=== PATIENT | male | born 1935 | race Caucasian/White ===

== ENCOUNTER → 2020-08-06 14:24 | Outpatient (BNVA) | payer MEDICARE, OTHER, SELFPAY | PROVIDERS: PCP Internal Medicine; Referring Provider Internal Medicine; Visit Provider Internal Medicine | DX: I25.10 Atherosclerotic heart disease of native coronary artery without angina pectoris (principal); R94.39 Abnormal result of other cardiovascular function study; I10 Essential (primary) hypertension; E78.5 Hyperlipidemia, unspecified | CPT/HCPCS: 99214 ==

== ENCOUNTER 2020-08-12 10:16 | Outpatient (REF) | payer MEDICARE, OTHER, SELFPAY ==
[2020-08-12 12:14] LABS: Glucose Urine UA NEG (NEG); Leukocyte Esterase Urine 3+ (NEG); Nitrite Urine POS (NEG); Specific Gravity - Urine 1.015 (1.005-1.025); Urine Blood TRACE (NEG); Urine Ketones NEG (NEG); Urine Protein NEG (NEG-TRACE)
[2020-08-12 12:17] LABS: Appearance Urine CLOUDY; Color Urine YELLOW
[2020-08-12 12:30] LABS: Bacteria Urine 4+ /LPF; RBC Urine 0-2 /HPF (0)
== END 2020-08-12 10:17 | disposition home or self-care (01) ==
LOC: HO.LAB 10:16
PROVIDERS: PCP Internal Medicine; Visit Provider Urology
DX: R30.0 Dysuria (principal)
CPT/HCPCS: 81001; 87086; 87088; 87186

== ENCOUNTER 2020-08-27 10:52 | Inpatient (IN) | payer MEDICARE, OTHER, SELFPAY ==
[2020-08-27 11:18] VITALS: BP 148/70; PULSE 73; RESP 18; TEMP 36.6; O2SAT 96; BMI 25.0
--- NOTE | 2020-08-27 11:51 | ED.MALEGU ---
HPI - Male Genitourinary General Chief complaint: Urogenital-Male Stated complaint: uti Time Seen by Provider: 08/27/20 10:56 Source: patient Mode of arrival: ambulatory Limitations: no limitations History of Present Illness HPI Narrative: Patient presents to the ED due to referral by his urologist, Dr. Tang. Patient states presently being treated for UTI and this morning he was not urinating much so he came to the ED. Patient denies any abdominal pain, nausea, vomiting, fever, chills, flank pain. Patient also states that he was informed that the urine culture shows that he is on antibiotic that does not cover the bacteria and may to be changed. Related Data Home Medications Medication Instructions Recorded Confirmed isosorbide mononitrate 30 mg 30 mg PO DAILY 08/06/20 08/06/20 tablet,extended release 24 hr lisinopril 5 mg tablet 5 mg PO DAILY 08/06/20 08/06/20 metoprolol tartrate 25 mg tablet 25 mg PO BID 08/06/20 08/06/20 tamsulosin 0.4 mg capsule 0.4 mg PO DAILY 08/06/20 08/06/20 Previous Rx's Medication Instructions Recorded aspirin 81 mg tablet,delayed 81 mg PO DAILY #90 tab 08/06/20 release rosuvastatin 10 mg tablet 10 mg PO DAILY #90 tab 08/06/20 Allergies Allergy/AdvReac Type Severity Reaction Status Date / Time diphenhydramine AdvReac Intermediate Hallucinati Verified 08/06/20 08:42 [From Tereza] ons Review of Systems Review of Systems: Yes all other systems are reviewed and are negative Eyes: Eyes: Reports as per HPI and Reports no additional eye complaints ENT: Reports system reviewed and no additional complaints, except as documented, Reports as per HPI, Reports vertigo and Reports dizziness Cardiovascular: Cardiovascular: Reports as per HPI and Reports no additional cardiovascular complaints Respiratory: Respiratory: Reports as per HPI and Reports no additional respiratory complaints Gastrointestinal: Gastrointestinal: Reports no additional gastrointestinal complaints Genitourinary: Genitourinary: Reports no additional male genitourinary complaints, Reports as per HPI, Denies oliguria, Denies genital lesions, Denies genital pain, Denies dysuria, Denies flank pain, Denies nocturia, Denies scrotal swelling, Denies testicular pain, Denies urinary hesitancy, Denies urinary incontinence and Denies urinary urgency Musculoskeletal: Musculoskeletal: Reports no additional musculoskeletal complaints, Reports as per HPI, Denies abnormal gait, Denies back pain, Denies myalgias and Denies atrophy Neurologic: Reports system reviewed and no additional complaints, except as documented, Denies abnormal gait, Reports vertigo and Reports dizziness Psychiatric: Psychiatric: Reports no additional psychiatric complaints and Reports as per HPI [facility] Past Medical History Medical History (Updated 08/27/20 @ 16:24 by CORNELIO Du) Abnormal myocardial perfusion study Atherosclerotic cardiovascular disease Essential hypertension Hyperlipidemia, unspecified Surgical History History of appendectomy History of bladder surgery (~01/04/18) History of colectomy History of prostate surgery (~2016) Family History Family History Father Pancreatic cancer Mother No problems noted. Brother Liver cancer Social History Social History Alcohol intake: never Smoking Status: Former smoker Smoked in Last 30 Days: No Use of substances other than those prescribed or required for medical reasons: No Advance Directives: No Advance Directives Information Provided: No Physical Exam Vital Signs: Vital Signs: Vital Signs Temp Pulse Resp BP Pulse Ox 08/27/20 15:41 97.6 F 71 18 140/6 H 08/27/20 14:42 98.3 F 69 16 138/89 95 08/27/20 11:18 97.8 F 73 18 148/70 H 96 Body Mass Index 25.0 Const: General: cooperative, healthy appearing, comfortable, no acute distress, well developed, alert and awake HENMT: Head: Yes normal to inspection and Yes No palpable skull fracture present Eyes: General: appearance normal, both eyes and all related structures Neck: Neck: Yes normal visual inspection, Yes full ROM, Yes no lymphadenopathy, Yes no meningeal signs, No positive Brudzinski's sign and No positive Kernig's sign Chest: Chest palpation & inspection: normal inspection of the chest, normal palpation of entire chest wall and no localized rib tenderness Resp: Effort & Inspection: normal respiratory effort, able to speak in complete sentences, normal respiratory pattern, no audible wheezes, no cough, no grunting, not labored, no nasal flaring, no paradoxical thoraco-abdom movements and no pursed lip breathing Auscultation: clear to auscultation bilaterally, no crackles, no rales, no rhonchi, no wheezes and breath sounds present Percussion: percussion normal Cardio: Jugular venous distension: no JVD Heart sounds: S1 normal heart sound present and S2 normal heart sound present GI: Inspection: Yes normal to inspection, No abdominal wall ecchymosis and No Abdominal wall edema Palpation (GI): Soft to palpation, not firm, nontender, no guarding and not rigid Percussion: Yes normal to percussion Auscultation: normal bowel sounds : General: No CVA tenderness and Yes no CVA tenderness Male General Exam: Yes normal external exam, No ecchymosis, No edema, No erythema, No hernia, No inguinal lymphadenopathy and No Genital lesions present Penis: normal penis and No Genital lesions present Scrotum: scrotum normal Testes: Testes normal and testicular lie normal Back/Spine/Pelvis: Back: no CVA tenderness, No CVA tenderness and No back tenderness Skin: General skin exam: no rashes or lesions noted Neuro: General: gait normal, no meningeal signs and CN's II-XI intact bilaterally Cranial nerves: Yes CN's II-XII intact bilaterally Extrem: General: Yes normal to inspection and Yes full ROM Course Course Course Narrative: Patient does not have any abdominal tenderness on palpation patient is comfortable patient will have basic labs and a urinalysis to make sure there is no elevated white count for worsening UTI. Bladder scan shows only 83 mL of urine and bladder. Patient is not having urinary retention Reevaluation(s) Reevaluation #1: patient admitted to the hospital to receive IV antibiotics for UTI. Although patient does not have white blood cell count, fever, chills, tachycardia patient's urine culture from the 12 of August shows Proteus which is resistant to all antibiotics and a except ertapenem Time: 16:23 MDM - Male Genitourinary MDM Narrative Medical decision making narrative: UTI. Lab Data Result diagrams: 08/27/20 11:58 08/27/20 11:59 Labs: Lab Results 08/27/20 08/27/20 08/27/20 Range/Units 11:58 11:59 14:01 WBC 8.0 (4.8-10.8) X10*3/uL RBC 4.52 L (4.60-5.80) X10*6/uL Hgb 13.5 L (14.0-18.0) g/dl Hct 40.0 L (42-52) % MCV 88.5 (80-98) fL MCH 29.9 (27.0-33.0) pg MCHC 33.8 (31.0-36.0) g/dl RDW 12.2 (11.0-16.0) % Plt Count 228 (160-400) X10*3/uL MPV 9.9 (9.4-12.4) fL Immature Gran % (Auto) 0.5 H (0.0-0.4) % Neut % (Auto) 63.8 (45-73) % Lymph % (Auto) 26.6 (20-40) % [place] % (Auto) 5.8 (2-11) % Eos % (Auto) 2.7 (0-4) % Baso % (Auto) 0.6 (0-2) % Lymph # (Auto) 2.1 (1.2-4.9) X10*3/uL [place] # (Auto) 0.5 (0.1-1.2) X10*3/uL Eos # (Auto) 0.2 (0.0-0.4) X10*3/uL Baso # (Auto) 0.1 (0.0-0.2) X10*3/uL Abs Immat Gran (auto) 0.04 H (0.00-0.03) X10*3/uL Absolute Neuts (auto) 5.1 (2.0-8.3) X10*3/uL Absolute Nucleated RBC 0.000 (0.0-0.012) X10*3/uL Nucleated RBC % (auto) 0.0 (0.0-0.2) /100WBC Sodium 140 (135-145) mmol/L Potassium 3.9 (3.3-5.1) mmol/l Chloride 107 (96-108) mmol/L Carbon Dioxide 25 (22-29) mmol/L Anion Gap 12 (12-20) BUN 14 (9-16) mg/dL Creatinine 0.88 (0.5-1.4) mg/dL Estim Creat Clear Calc 72.6 Estimated GFR > 60 Random Glucose 179 H (60-115) mg/dL Calcium 8.7 (8.4-10.2) mg/dL Total Bilirubin 0.6 (0.0-1.0) mg/dL AST 14 (5-37) U/L ALT 18 (0-40) U/L Alkaline Phosphatase 77 (39-117) U/L Total Protein 5.9 L (6.5-8.0) g/dL Albumin 3.8 (3.5-5.0) g/dL Urine Color YELLOW Urine Appearance CLOUDY Urine pH 7.0 (5.0-8.0) Ur Specific [place] 1.020 (1.005-1.025) Urine Protein TRACE (NEG-TRACE) MG/DL Urine Glucose (UA) 100 H (NEG) MG/DL Urine Ketones 5 (NEG) MG/DL Urine Blood 2+ H (NEG) Urine Nitrite POS H (NEG) Ur Leukocyte Esterase 2+ H (NEG) Urine RBC 10-14 H (0) /HPF Urine WBC TNTC H (0-4) /HPF Ur Squamous Epith Cells 1+ /LPF Calcium Oxalate Crystal TRACE /LPF Urine Bacteria 1+ /LPF Discharge Plan Discharge Clinical Impression: Urinary tract infection Patient Disposition: Admitted As Inpatient
[2020-08-27 12:07] LABS: MANUAL DIFF FLAG NO
[2020-08-27 12:10] LABS: Basophils Absolute Auto 0.1 X10*3/uL (0.0-0.2); Basophils Percent Auto 0.6 % (0-2); Eosinophils Absolute Auto 0.2 X10*3/uL (0.0-0.4); Eosinophils Percent Auto 2.7 % (0-4); Hemoglobin 13.5 g/dl (14.0-18.0); Imm Gran Abs Auto 0.04 X10*3/uL (0.00-0.03); Imm Gran Pct Auto 0.5 % (0.0-0.4); Lymphocytes Absolute Auto 2.1 X10*3/uL (1.2-4.9); Lymphocytes Percent Auto 26.6 % (20-40); Mean Corpuscular HGB Conc 33.8 g/dl (31.0-36.0); Mean Corpuscular Hemoglobin 29.9 pg (27.0-33.0); Mean Corpuscular Volume 88.5 fL (80-98); Mean Platelet Volume 9.9 fL (9.4-12.4); Monocytes Absolute Auto 0.5 X10*3/uL (0.1-1.2); Monocytes Percent Auto 5.8 % (2-11); Neutrophils Absolute Auto 5.1 X10*3/uL (2.0-8.3); Neutrophils Percent Auto 63.8 % (45-73); Platelet Count 228 X10*3/uL (160-400); Red Blood Count 4.52 X10*6/uL (4.60-5.80); Red Cell Distribution Width 12.2 % (11.0-16.0)
[2020-08-27 12:33] LABS: Alanine Aminotransferase 18 U/L (0-40); Albumin Level 3.8 g/dL (3.5-5.0); Alkaline Phosphatase 77 U/L (39-117); Anion Gap 12 (12-20); Aspartate Amino Transferase 14 U/L (5-37); Bilirubin Total 0.6 mg/dL (0.0-1.0); Blood Urea Nitrogen 14 mg/dL (9-16); Calcium 8.7 mg/dL (8.4-10.2); Carbon Dioxide 25 mmol/L (22-29); Chloride 107 mmol/L (96-108); Creatinine Clr Calc Pharmacy 72.6; Estimated Glomerular Filt Rate > 60; Glucose Random 179 mg/dL (60-115); Potassium 3.9 mmol/l (3.3-5.1); Sodium 140 mmol/L (135-145); Total Protein 5.9 g/dL (6.5-8.0)
[2020-08-27 14:21] LABS: Glucose Urine UA 100 MG/DL (NEG); Leukocyte Esterase Urine 2+ (NEG); Nitrite Urine POS (NEG); Urine Blood 2+ (NEG); Urine Ketones 5 MG/DL (NEG); Urine Protein TRACE MG/DL (NEG-TRACE)
[2020-08-27 14:23] LABS: Appearance Urine CLOUDY; Color Urine YELLOW
[2020-08-27 14:39] LABS: Bacteria Urine 1+ /LPF; Squamous Epithelial Cell Urine 1+ /LPF; WBC Urine TNTC /HPF (0-4)
[2020-08-27 14:40] LABS: Calcium Oxalate Crystals Urine TRACE /LPF
[2020-08-27 14:42] VITALS: BP 138/89; PULSE 69; RESP 16; TEMP 36.8; O2SAT 95
[2020-08-27 15:41] VITALS: BP 140/6; PULSE 71; RESP 18; TEMP 36.4
--- NOTE | 2020-08-27 15:42 | PC.NURSE ---
patient a&ox3, vss, pt watching tv awaiting urine results, will continue to monitor.
--- NOTE | 2020-08-27 17:06 | P.HPIM_ITS ---
History of Present Illness Date of Service: 08/27/20 <OCRNELIO Encinas Last Filed: 08/28/20 09:15> Chief Complaint: dysuria <CORNELIO Encinas Last Filed: 08/28/20 09:15> this is an 85-year-old male who presents to the emergency department with dysuria. His symptoms initially began on August 12. At that time he gave a urine sample but did not receive results right away therefore he went to Urgent Care and was started on a course of Bactrim. He completed 1 week of Bactrim but continued to be symptomatic. He had tried to make an appointment with his urologist. the urology office was able to look up the sensitivities from his urine culture and noted it was not sensitive to any oral antibiotics. They recommended he come to the emergency department for evaluation. Patient denies any fever, chills, nausea, vomiting. He denies any flank pain. He is able to tolerate p.o. In the emergency department he was afebrile and lab work revealed no leukocytosis. he was started on Invanz in the ED and the decision was made to admit him for further IV antibiotics. <CORNELIO Encinas - Last Filed: 08/28/20 09:15> Review of Systems Review of Systems: Yes all other systems are reviewed and are negative <CORNELIO Encinas Last Filed: 08/28/20 09:15> Constitutional: Constitutional: Denies chills and Denies fever(s) <CORNELIO Encinas Last Filed: 08/28/20 09:15> Cardiovascular: Cardiovascular: Denies chest pain <CORNELIO Encinas Last Filed: 08/28/20 09:15> Respiratory: Respiratory: Denies cough <CORNELIO Encinas Last Filed: 08/28/20 09:15> Gastrointestinal: Gastrointestinal: Denies abdominal pain <CORNELIO Encinas Last Filed: 08/28/20 09:15> Genitourinary: Genitourinary: Reports difficulty urinating and Reports dysuria <CORNELIO Encinas Last Filed: 08/28/20 09:15> [facility] Medical History: Medical History (Updated 08/27/20 @ 17:11 by CORNELIO Encinas) Abnormal myocardial perfusion study Atherosclerotic cardiovascular disease Colon cancer Essential hypertension Hyperlipidemia, unspecified Prostate cancer <CORNELIO Encinas - Last Filed: 08/28/20 09:15> Functional capacity: uses cane/walker <CORNELIO Encinas - Last Filed: 08/28/20 09:15> Family History: Family History Father Pancreatic cancer Mother No problems noted. Brother Liver cancer <CORNELIO Encinas - Last Filed: 08/28/20 09:15> Surgical History: Surgical History History of appendectomy History of bladder surgery (~01/04/18) History of colectomy History of prostate surgery (~2016) <CORNELIO Encinas - Last Filed: 08/28/20 09:15> Social History: Social History Household Members: Spouse Housing: House Do you presently have visiting nurse or other home services: No Alcohol intake: never Smoking Status: Former smoker Smoked in Last 30 Days: No Use of substances other than those prescribed or required for medical reasons: No Currently Displaying Signs/Symptoms of Drug Intoxication Withdrawal: No Have you been hit, kicked, punched, or otherwise hurt by someone within the past year? If so, by whom?: No Do you feel safe in your current relationship?: Yes Is there a partner from a previous relationship who is making you feel unsafe now?: No Are you made to feel afraid or neglected: No Advance Directives: No Advance Directives Information Provided: No Advance Directives on File: No Do you have thoughts of harming others: None Do you have a plan to hurt others: No Plan Recently lost weight without trying: No service: Yes Current occupational status: retired <CORNELIO Encinas - Last Filed: 08/28/20 09:15> Meds Allergies/Adverse reactions: Allergies Allergy/AdvReac Type Severity Reaction Status Date / Time diphenhydramine AdvReac Intermediate Hallucinati Verified 08/06/20 08:42 [[facility] ons <CORNELIO Encinas Last Filed: 08/28/20 09:15> Home medications: Home Medications Medication Instructions Recorded Confirmed Type isosorbide mononitrate 30 mg 30 mg PO DAILY 08/06/20 08/27/20 History tablet,extended release 24 hr lisinopril 5 mg tablet 5 mg PO DAILY 08/06/20 08/27/20 History metoprolol tartrate 25 mg tablet 25 mg PO BID 08/06/20 08/27/20 History tamsulosin 0.4 mg capsule 0.4 mg PO DAILY 08/06/20 08/27/20 History <CORNELIO Encinas Last Filed: 08/28/20 09:15> Physical Exam Vital Signs and Narrative: Vital Signs: Last Vital Signs Temp 97.6 F 08/27/20 15:41 Pulse 71 08/27/20 15:41 Resp 18 08/27/20 15:41 BP 140/6 H 08/27/20 15:41 Pulse Ox 95 08/27/20 14:42 Body Mass Index 25.0 <CORNELIO Encinas Last Filed: 08/28/20 09:15> Const: Nutritional Appearance: well nourished <CORNELIO Encinas Last Filed: 08/28/20 09:15> Orientation/consciousness: patient oriented x3 <CORNELIO Encinas Last Filed: 08/28/20 09:15> HENMT: Head: Yes normocephalic and Yes atraumatic <CORNELIO Encinas Last Filed: 08/28/20 09:15> Eyes: Sclerae: sclerae normal <CORNELIO Encinas Last Filed: 08/28/20 09:15> Chest: Chest palpation & inspection: normal inspection of the chest <CORNELIO Encinas Last Filed: 08/28/20 09:15> Resp: Effort & Inspection: normal respiratory effort and no respiratory distress <CORNELIO Encinas Last Filed: 08/28/20 09:15> Auscultation: clear to auscultation bilaterally <CORNELIO Encinas Last Filed: 08/28/20 09:15> Cardio: Rate: regular rate <CORNELIO Encinas Last Filed: 08/28/20 09:15> Rhythm: regular rhythm <CORNELIO Encinas Last Filed: 08/28/20 09:15> GI: Palpation (GI): Soft to palpation and nontender <CORNELIO Encinas - Last Filed: 08/28/20 09:15> Skin: General skin exam: no rashes or lesions noted <CORNELIO Encinas - Last Filed: 08/28/20 09:15> Neuro: General: patient oriented x3 <CORNELIO Encinas Last Filed: 08/28/20 09:15> Cranial nerves: Yes CN's II-XII intact bilaterally and Yes Bilaterally intact EOM present <CORNELIO Enicnas Last Filed: 08/28/20 09:15> Extrem: General: Yes normal to inspection <CORNELIO Encinas Last Filed: 08/28/20 09:15> Results Labs Labs: Laboratory Tests 08/27/20 08/27/20 08/27/20 11:58 11:59 14:01 WBC 8.0 RBC 4.52 L Hgb 13.5 L Hct 40.0 L MCV 88.5 MCH 29.9 MCHC 33.8 RDW 12.2 Plt Count 228 MPV 9.9 Immature Gran % (Auto) 0.5 H Neut % (Auto) 63.8 Lymph % (Auto) 26.6 [place] % (Auto) 5.8 Eos % (Auto) 2.7 Baso % (Auto) 0.6 Lymph # (Auto) 2.1 [place] # (Auto) 0.5 Eos # (Auto) 0.2 Baso # (Auto) 0.1 Abs Immat Gran (auto) 0.04 H Absolute Neuts (auto) 5.1 Absolute Nucleated RBC 0.000 Nucleated RBC % (auto) 0.0 Sodium 140 Potassium 3.9 Chloride 107 Carbon Dioxide 25 Anion Gap 12 BUN 14 Creatinine 0.88 Estim Creat Clear Calc 72.6 Estimated GFR > 60 Random Glucose 179 H Calcium 8.7 Total Bilirubin 0.6 AST 14 ALT 18 Alkaline Phosphatase 77 Total Protein 5.9 L Albumin 3.8 Urine Color YELLOW Urine Appearance CLOUDY Urine pH 7.0 Ur Specific [place] 1.020 Urine Protein TRACE Urine Glucose (UA) 100 H Urine Ketones 5 Urine Blood 2+ H Urine Nitrite POS H Ur Leukocyte Esterase 2+ H Urine RBC 10-14 H Urine WBC TNTC H Ur Squamous Epith Cells 1+ Calcium Oxalate Crystal TRACE Urine Bacteria 1+ <CORNELIO Encinas - Last Filed: 08/28/20 09:15> Assessment and Plan (1) Urinary tract infection: Status: Acute <CORNELIO Encinas - Last Filed: 08/28/20 09:15> this is an 85-year-old male diagnosed with UTI as outpatient with ongoing dysuria found to have multi-drug resistant UTI UTI MDR organism sensitive only to ertapenem and gentamicin no evidence of sepsis - IV ertapenem - ID consult BPH continue tamsulosin CAD stable, no chest pain - continue beta-johanna, aspirin, isosorbide, statin hypertension - continue metoprolol, lisinopril DVT prophylaxis- Lovenox code status- full code this case was discussed with Dr. Whitehead <CORNELIO Encinas - Last Filed: 08/28/20 09:15>
--- NOTE | 2020-08-27 17:54 | PC.NURSE ---
report given to med/surgical tech
[2020-08-27] MEDS: Ertapenem Sodium 1 GM in 0.9 % Sodium Chloride 50 ML IV (18:04)
--- NOTE | 2020-08-27 18:08 | PM.EVENT ---
Event Note Event Note: Patient seen examined Patient has only complaint of dysuria, is his urine culture is growing Proteus mirabilis which is sensitive only to at appointment gentamicin. This patient is seen and examined with APC. Lab imaging reviewed Physical exam: Cvs: rrr, [id number] , no murmur res: clear to auscultation ,no rhonchii or wheezing abd: no rebound or guarding ,nt, bs present. ext pulses present , no cyanosis neuro: axo3 , nonfocal. Physical exam and assessment and plan coordinated in APCs note, Agree with the plan in addition: Will start ertapenem Id evaluation.
[2020-08-27 19:25] VITALS: BP 185/87; PULSE 94; RESP 18; TEMP 36.1; O2SAT 95
[2020-08-27] MEDS: Enoxaparin Sodium 40 MG/0.4 ML SYRINGE SUBCUT (21:46)
[2020-08-27] MEDS: Flu Vacc QS2020-21(6mos up)/PF 0.5 ML SYRINGE IM (21:46)
[2020-08-27] MEDS: Metoprolol Tartrate 25 MG TABLET PO (22:04)
[2020-08-27] MEDS: 0.9 % Sodium Chloride Flush 3 ML SYRINGE IVFLUSH (22:05)
[2020-08-27 23:08] VITALS: BP 146/70; PULSE 85; RESP 18; TEMP 36.9; O2SAT 97
[2020-08-28] VITALS (9 sets, daily range): BP systolic 96–145; BP diastolic 51–73; PULSE 54–70; RESP 16–18; TEMP 36.3–36.7; O2SAT 94–98
[2020-08-28 06:17] LABS: MANUAL DIFF FLAG NO
[2020-08-28 06:37] LABS: Basophils Percent Auto 0.5 % (0-2); Eosinophils Absolute Auto 0.3 X10*3/uL (0.0-0.4); Eosinophils Percent Auto 3.8 % (0-4); Hematocrit 41.8 % (42-52); Hemoglobin 13.9 g/dl (14.0-18.0); Imm Gran Abs Auto 0.02 X10*3/uL (0.00-0.03); Imm Gran Pct Auto 0.2 % (0.0-0.4); Lymphocytes Absolute Auto 3.1 X10*3/uL (1.2-4.9); Lymphocytes Percent Auto 36.4 % (20-40); Mean Corpuscular HGB Conc 33.3 g/dl (31.0-36.0); Mean Corpuscular Hemoglobin 29.7 pg (27.0-33.0); Mean Corpuscular Volume 89.3 fL (80-98); Mean Platelet Volume 9.9 fL (9.4-12.4); Monocytes Absolute Auto 0.7 X10*3/uL (0.1-1.2); Monocytes Percent Auto 7.7 % (2-11); Neutrophils Absolute Auto 4.4 X10*3/uL (2.0-8.3); Neutrophils Percent Auto 51.4 % (45-73); Platelet Count 223 X10*3/uL (160-400); Red Blood Count 4.68 X10*6/uL (4.60-5.80); Red Cell Distribution Width 12.2 % (11.0-16.0); White Blood Count 8.5 X10*3/uL (4.8-10.8)
[2020-08-28 06:54] LABS: Anion Gap 12 (12-20); Blood Urea Nitrogen 14 mg/dL (9-16); Calcium 8.4 mg/dL (8.4-10.2); Carbon Dioxide 24 mmol/L (22-29); Chloride 108 mmol/L (96-108); Creatinine Clr Calc Pharmacy 76.1; Estimated Glomerular Filt Rate > 60; Glucose Random 95 mg/dL (60-115); Potassium 4.2 mmol/l (3.3-5.1); Sodium 140 mmol/L (135-145)
[2020-08-28] MEDS: 0.9 % Sodium Chloride Flush 3 ML SYRINGE IVFLUSH ×2 (07:45→16:00)
[2020-08-28] MEDS: lisinopriL 5 MG TABLET PO (08:46)
[2020-08-28] MEDS: Isosorbide Mononitrate 30 MG TAB.ER.24H PO (08:47)
[2020-08-28] MEDS: Metoprolol Tartrate 25 MG TABLET PO ×2 (08:48→21:09)
[2020-08-28] MEDS: Atorvastatin Calcium 40 MG TABLET PO (08:48)
[2020-08-28] MEDS: Tamsulosin HCL 0.4 MG CAPSULE PO (08:48)
[2020-08-28] MEDS: Aspirin Enteric Coated 81 MG TABLET.DR PO (08:48)
--- NOTE | 2020-08-28 11:50 | MHC.CM.PN ---
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 HE CURRENTLY ISD ON ERAPENEUM QD , PENIDNG FINAL CULTURE REPORTS AND ID PHYSICIAN CONSULT, PATIENT REPORTED THAT HE LIVES WITH HIS , ACTIVE ,INDEPENDENTI N ALL ADLS AND MOBILITY HE USES A CANE . HE CONTINEUS TO DRIVE , HE IS A AND [employer]ED IN THE [employer], HE SOMETIMES GOES TO THE [facility] [facility] FOR SERVCIES CONFIRMED PCP IS DR KARIMI, HE BELIEVES HE HAS A HEALTH CARE PROXY AT HOME FIBROUS PLASTERER[Y REQUESTED . HE HAS NO VNA /NO DME SERVICES IN THE HOME MEIARE IMM EXPLAINED AND GIVEN WITH ATTACHED NAME CARD DISCHARGE PLAN HOME NO SERVICES VS HOME WITH [facility] (INIATED REFERRAL) IF NEEDED TRANSPORTATION PATIENT [place] PCP PATIENT TO CALL FOR [facility]AGRE FOLLOW UP UROLOGICAL F/U -PATIENT TO CALL HIS UROLOGIST
--- NOTE | 2020-08-28 12:03 | MHC.CM.PN ---
NURSE BIOMED TECH AVANI)TE INIATED REFERRAL TO [facility] PER PATIENTS REQUESTS (HIS HAD THEM IN THE PAST AND THEY WERE VERY HAPPY WITH THEIR SERVICES
--- NOTE | 2020-08-28 12:24 | P.PNIM_ITS ---
Subjective Subjective Date of Service: 08/28/20 Interval History: uti Review of Systems Patient still has dysuria, denies any abdominal pain or fever chills Physical Exam Vital Signs: Vital Signs: Vital Signs Temp Pulse Resp BP Pulse Ox 08/28/20 11:55 97.8 F 55 16 101/51 L 96 08/28/20 08:48 64 145/73 H 08/28/20 08:47 64 145/73 H 08/28/20 08:46 64 145/73 H 08/28/20 08:08 97.3 F 59 18 145/73 H 96 08/28/20 03:29 97.7 F 68 16 114/68 97 08/27/20 23:08 98.5 F 85 18 146/70 H 97 08/27/20 19:25 97 F 94 18 185/87 H 95 08/27/20 15:41 97.6 F 71 18 140/6 H 08/27/20 14:42 98.3 F 69 16 138/89 95 Body Mass Index 25.0 Physical exam: Cvs: rrr, [id number] , no murmur. res: clear to auscultation ,no rhonchii or wheezing. abd: no rebound or guarding ,nt, bs present. ext: pulses present , no cyanosis . neuro: axo3 , nonfocal. Objective Data Current Medications Generic Name Dose Route Start Last Admin Trade Name Freq PRN Reason Stop Dose Admin Aspirin 81 mg 08/28/20 09:00 08/28/20 08:48 Aspirin Enteric Coated 81 Mg Tablet. PO 81 mg DAILY KRISTINE Administration Atorvastatin Calcium 40 mg 08/28/20 09:00 08/28/20 08:48 Atorvastatin Calcium 40 Mg Tablet PO 40 mg DAILY [facility] Administration Enoxaparin Sodium 40 mg 08/27/20 19:00 08/27/20 21:46 Enoxaparin Sodium 40 Mg/0.4 Ml Syringe SUBCUT 40 mg Q24H [facility] Administration Ertapenem 1 gm/ Sodium 50 mls @ 100 mls/hr 08/28/20 09:00 Chloride IV DAILY [facility] Isosorbide Mononitrate 30 mg 08/28/20 09:00 08/28/20 08:47 Isosorbide Mononitrate 30 Mg Tab.Er.24h PO 30 mg DAILY [facility] Administration Protocol Lisinopril 5 mg 08/28/20 09:00 08/28/20 08:46 Lisinopril 5 Mg Tablet PO 5 mg DAILY KRISTINE Administration Protocol Metoprolol Tartrate 25 mg 08/27/20 21:00 08/28/20 08:48 Metoprolol Tartrate 25 Mg Tablet PO 25 mg BID KRISTINE Administration Protocol Sodium Chloride 3 ml 08/28/20 00:00 08/28/20 07:45 0.9 % Sodium Chloride Flush 3 Ml Syringe IVFLUSH 3 ml QSHIFT [facility] Administration Tamsulosin HCl 0.4 mg 08/28/20 09:00 08/28/20 08:48 Tamsulosin Hcl 0.4 Mg Capsule PO 0.4 mg DAILY [facility] Administration Labs CBC & Chem 7: 08/28/20 06:04 08/28/20 06:04 Microbiology Microbiology Results: Microbiology 08/27/20 Unknown Urine clean catch - Clean Catch Midstream Urine Culture - Preliminary Gram negative jimmie Assessment and Plan (1) Urinary tract infection: Status: Acute (2) Dysuria: Status: Acute Assessment and Plan: 85-year-old male diagnosed with UTI as outpatient with ongoing dysuria found to have multi-drug resistant UTI 1. UTI: MDR organism sensitive only to ertapenem and gentamicin no evidence of sepsis continue ertapenem ID consult, urology eval added . 2.BPH continue tamsulosin 3. CAD stable, no chest pain - continue beta-johanna, aspirin, isosorbide, statin 4. hypertension - continue metoprolol, lisinopril
--- NOTE | 2020-08-28 14:33 | HO.PM.IMPN ---
Subjective Subjective Date of Service: 08/28/20 Interval History: uti Review of Systems Patient's is still has dysuria, denies any fever or chills or abdominal pain. Physical Exam Vital Signs: Vital Signs: Vital Signs Temp Pulse Resp BP Pulse Ox 08/28/20 11:55 97.8 F 55 16 101/51 L 96 08/28/20 08:48 64 145/73 H 08/28/20 08:47 64 145/73 H 08/28/20 08:46 64 145/73 H 08/28/20 08:08 97.3 F 59 18 145/73 H 96 08/28/20 03:29 97.7 F 68 16 114/68 97 08/27/20 23:08 98.5 F 85 18 146/70 H 97 08/27/20 19:25 97 F 94 18 185/87 H 95 08/27/20 15:41 97.6 F 71 18 140/6 H 08/27/20 14:42 98.3 F 69 16 138/89 95 Body Mass Index 25.0 Physical exam Cvs: [id number], [id number] , no murmur res: clear to auscultation ,no rhonchii or wheezing abd: no rebound or guarding ,nt, bs present. ext pulses present , no cyanosis neuro: axo3 , nonfocal. Objective Data Current Medications Generic Name Dose Route Start Last Admin Trade Name Freq PRN Reason Stop Dose Admin Acetaminophen 650 mg 08/28/20 12:28 Acetaminophen 325 Mg Tablet PO Q6H PRN Fever Aspirin 81 mg 08/28/20 09:00 08/28/20 08:48 Aspirin Enteric Coated 81 Mg Tablet.Dr PO 81 mg DAILY KRISTINE Administration Atorvastatin Calcium 40 mg 08/28/20 09:00 08/28/20 08:48 Atorvastatin Calcium 40 Mg Tablet PO 40 mg DAILY [facility] Administration Enoxaparin Sodium 40 mg 08/27/20 19:00 08/27/20 21:46 Enoxaparin Sodium 40 Mg/0.4 Ml Syringe SUBCUT 40 mg Q24H KRISTINE Administration Ertapenem 1 gm/ Sodium 50 mls @ 100 mls/hr 08/28/20 16:00 Chloride IV DAILY@1600 [facility] Isosorbide Mononitrate 30 mg 08/28/20 09:00 08/28/20 08:47 Isosorbide Mononitrate 30 Mg Tab.Er.24h PO 30 mg DAILY [facility] Administration Protocol Lisinopril 5 mg 08/28/20 09:00 08/28/20 08:46 Lisinopril 5 Mg Tablet PO 5 mg DAILY [facility] Administration Protocol Metoprolol Tartrate 25 mg 08/27/20 21:00 08/28/20 08:48 Metoprolol Tartrate 25 Mg Tablet PO 25 mg BID [facility] Administration Protocol Sodium Chloride 3 ml 08/28/20 00:00 08/28/20 07:45 0.9 % Sodium Chloride Flush 3 Ml Syringe IVFLUSH 3 ml QSHIFT [facility] Administration Tamsulosin HCl 0.4 mg 08/28/20 09:00 08/28/20 08:48 Tamsulosin Hcl 0.4 Mg Capsule PO 0.4 mg DAILY [facility] Administration Labs CBC & Chem 7: 08/28/20 06:04 08/28/20 06:04 Microbiology Microbiology Results: Microbiology 08/27/20 Unknown Urine clean catch - Clean Catch Midstream Urine Culture - Preliminary Gram negative jimmie Assessment and Plan (1) Urinary tract infection: Status: Acute (2) Dysuria: Status: Acute Assessment and Plan: 85-year-old male diagnosed with UTI as outpatient with ongoing dysuria found to have multi-drug resistant UTI 1. UTI: MDR organism sensitive only to ertapenem and gentamicin no evidence of sepsis continue ertapenem, urine culture growing Gram-negative jimmie, blood culture pending Discussed with ID-plan to put a PICC line, patient does not have any fever or white count Urology evaluation. 2.BPH continue tamsulosin 3. CAD stable, no chest pain - continue beta-johanna, aspirin, isosorbide, statin 4. hypertension - continue metoprolol, lisinopril
[2020-08-28] MEDS: Ertapenem Sodium 1 GM in 0.9 % Sodium Chloride 50 ML IV (15:50)
--- NOTE | 2020-08-28 16:01 | W.PM.IDCN ---
History of Present Illness Data of Consult Service Date: 08/28/20 Requesting physician: Geo Whitehead Primary Care Provider: MD MANDA Guillory Reason for consult: dysuria He presents to hospital with dysuria. He reports that hes had urinary hesitancy with limited dysuria for last two weeks He reports that Tamsolin is not helping Review of Systems ENT: Reports vertigo and Reports dizziness Musculoskeletal: Musculoskeletal: Denies abnormal gait Neurologic: Reports system reviewed and no additional complaints, except as documented, Denies abnormal gait, Reports vertigo and Reports dizziness PMFSH Past Medical History Medical History Abnormal myocardial perfusion study Atherosclerotic cardiovascular disease Colon cancer Essential hypertension Hyperlipidemia, unspecified Prostate cancer Functional capacity: uses cane/walker Family History Family History Father Pancreatic cancer Mother No problems noted. Brother Liver cancer Surgical History Surgical History History of appendectomy History of bladder surgery (~01/04/18) History of colectomy History of prostate surgery (~2016) Social History Social History Household Members: Spouse Housing: House Do you presently have visiting nurse or other home services: No Alcohol intake: never Smoking Status: Former smoker Smoked in Last 30 Days: No Use of substances other than those prescribed or required for medical reasons: No Currently Displaying Signs/Symptoms of Drug Intoxication Withdrawal: No Have you been hit, kicked, punched, or otherwise hurt by someone within the past year? If so, by whom?: No Do you feel safe in your current relationship?: Yes Is there a partner from a previous relationship who is making you feel unsafe now?: No Are you made to feel afraid or neglected: No Advance Directives: No Advance Directives Information Provided: No Advance Directives on File: No Do you have thoughts of harming others: None Do you have a plan to hurt others: No Plan Recently lost weight without trying: No service: Yes Current occupational status: retired Meds Allergies Allergy/AdvReac Type Severity Reaction Status Date / Time diphenhydramine AdvReac Intermediate Hallucinati Verified 08/06/20 08:42 [From Debradiana] ons Home Medications Medication Instructions Recorded Confirmed Type isosorbide mononitrate 30 mg 30 mg PO DAILY 08/06/20 08/27/20 History tablet,extended release 24 hr lisinopril 5 mg tablet 5 mg PO DAILY 08/06/20 08/27/20 History metoprolol tartrate 25 mg tablet 25 mg PO BID 08/06/20 08/27/20 History tamsulosin 0.4 mg capsule 0.4 mg PO DAILY 08/06/20 08/27/20 History Physical Exam Vital Signs: Vital Signs: Vital Signs Temp Pulse Resp BP Pulse Ox 08/28/20 15:47 98.1 F 54 18 96/53 L 94 08/28/20 11:55 97.8 F 55 16 101/51 L 96 08/28/20 08:48 64 145/73 H 08/28/20 08:47 64 145/73 H 08/28/20 08:46 64 145/73 H 08/28/20 08:08 97.3 F 59 18 145/73 H 96 08/28/20 03:29 97.7 F 68 16 114/68 97 08/27/20 23:08 98.5 F 85 18 146/70 H 97 08/27/20 19:25 97 F 94 18 185/87 H 95 Body Mass Index 25.0 Const: General: cooperative HENMT: Head: Yes normal to inspection Ears: hearing grossly impaired Eyes: Eyelids: Yes eyelids normal Conjunctivae: conjunctivae normal Sclerae: sclerae normal Resp: Effort & Inspection: normal respiratory effort Cardio: Rate: regular rate Rhythm: regular rhythm GI: Inspection: Yes normal to inspection Skin: Lesions: no lesions Rashes: no rashes Neuro: General: Unable to assess gait Cognition (Neuro): normal cognition Gait exam (Neuro): Unable to assess gait Extrem: General: Yes normal to inspection Psych: Appearance: grossly normal Assessment and Plan (1) Urinary tract infection: Status: Acute He has urine culture from August 12 with resistant Proteus sensitive to Ertapenem only He was started on medication yesterday Plan 14 days IV Ertapenem I saw patient with Dr Hein of Urology and he agrees (2) Dysuria: Status: Acute Results Labs CBC & Chem 7: 08/28/20 06:04 08/28/20 06:04 Labs: Short CBC 08/28/20 Range/Units 06:04 WBC 8.5 (4.8-10.8) X10*3/uL Hgb 13.9 L (14.0-18.0) g/dl Hct 41.8 L (42-52) % Plt Count 223 (160-400) X10*3/uL BMP 08/28/20 06:04 Sodium 140 Potassium 4.2 Chloride 108 Carbon Dioxide 24 BUN 14 Creatinine 0.84 Calcium 8.4 Microbiology Microbiology Results: Microbiology 08/27/20 Unknown Urine clean catch - Clean Catch Midstream Urine Culture - Preliminary Gram negative jimmie
--- NOTE | 2020-08-28 16:31 | MHC.CM.PN ---
PER HOSPITALIST PATIENT WILL NEED PIC LINE FOR IV ABX AT HOME PE INIAtwed [facility] to [facility]ND BLOOD FINAL REPORTS . RECIVED INFORMATION THAT [facility] WAS UNABLE TO ACCEPT PATIENT UNTIL NEXT MONDAY SPOKE WITH PATIENT ABOUT THIS AND HE accepts referrals send to [facility], [facility] to check avaiability also iniated referral to [facility] for iv abx NEW DISCHARGE PLAN HOME WITH PIC LINE TO BE PALCED BEFORE DISCHARGE VNA _INIATED REFERRALS TO [facility] [place] [facility] HALFWAY INFUSION REFERRAL INIATED
--- NOTE | 2020-08-28 16:31 | PM.CNGS ---
History of Present Illness Consult details Narrative: Known to Urology Had Urine Culture with johnson resistant Proteus Apparent ESBL Persistent recurrence Suggested go to hospital for start of IV abx with PIC line and 14 day Review of Systems Constitutional: Constitutional: Denies chills and Denies fever(s) ENT: Reports vertigo and Reports dizziness Cardiovascular: Cardiovascular: Reports no additional cardiovascular complaints and Denies syncope Respiratory: Respiratory: Denies cough Gastrointestinal: Gastrointestinal: Denies abdominal pain and Denies heartburn Genitourinary: Genitourinary: Reports as per HPI and Denies change in libido Musculoskeletal: Musculoskeletal: Denies abnormal gait Neurologic: Reports system reviewed and no additional complaints, except as documented, Denies abnormal gait, Reports vertigo, Reports dizziness and Denies syncope Psychiatric: Psychiatric: Denies change in libido Endocrine: Endocrine: Denies change in libido [facility] Past Medical History Medical History Abnormal myocardial perfusion study Atherosclerotic cardiovascular disease Colon cancer Essential hypertension Hyperlipidemia, unspecified Prostate cancer Functional capacity: uses cane/walker Family History Family History Father Pancreatic cancer Mother No problems noted. Brother Liver cancer Surgical History Surgical History History of appendectomy History of bladder surgery (~01/04/18) History of colectomy History of prostate surgery (~2017) Social History Social History Household Members: Spouse Housing: House Do you presently have visiting nurse or other home services: No Alcohol intake: never Smoking Status: Former smoker Smoked in Last 30 Days: No Use of substances other than those prescribed or required for medical reasons: No Currently Displaying Signs/Symptoms of Drug Intoxication Withdrawal: No Have you been hit, kicked, punched, or otherwise hurt by someone within the past year? If so, by whom?: No Do you feel safe in your current relationship?: Yes Is there a partner from a previous relationship who is making you feel unsafe now?: No Are you made to feel afraid or neglected: No Advance Directives: No Advance Directives Information Provided: No Advance Directives on File: No Do you have thoughts of harming others: None Do you have a plan to hurt others: No Plan Recently lost weight without trying: No service: Yes Current occupational status: retired Meds Allergies Allergy/AdvReac Type Severity Reaction Status Date / Time diphenhydramine AdvReac Intermediate Hallucinati Verified 08/06/20 08:42 [From Tereza] ons Home Medications Medication Instructions Recorded Confirmed Type isosorbide mononitrate 30 mg 30 mg PO DAILY 08/06/20 08/27/20 History tablet,extended release 24 hr lisinopril 5 mg tablet 5 mg PO DAILY 08/06/20 08/27/20 History metoprolol tartrate 25 mg tablet 25 mg PO BID 08/06/20 08/27/20 History tamsulosin 0.4 mg capsule 0.4 mg PO DAILY 08/06/20 08/27/20 History Physical Exam Vital Signs: Vital Signs: Vital Signs Temp Pulse Resp BP Pulse Ox 08/28/20 15:47 98.1 F 54 18 96/53 L 94 08/28/20 11:55 97.8 F 55 16 101/51 L 96 08/28/20 08:48 64 145/73 H 08/28/20 08:47 64 145/73 H 08/28/20 08:46 64 145/73 H 08/28/20 08:08 97.3 F 59 18 145/73 H 96 08/28/20 03:29 97.7 F 68 16 114/68 97 08/27/20 23:08 98.5 F 85 18 146/70 H 97 08/27/20 19:25 97 F 94 18 185/87 H 95 Body Mass Index 25.0 Const: General: cooperative, healthy appearing, comfortable and no acute distress Orientation/consciousness: patient oriented x3 HENMT: Face and sinus: Yes normal facial exam Mouth: moist mucous membranes Neck: Neck: Yes normal visual inspection, Yes full ROM and Yes trachea midline Chest: Chest palpation & inspection: normal inspection of the chest Resp: Effort & Inspection: normal respiratory effort, able to speak in complete sentences and no respiratory distress Back/Spine/Pelvis: Cervical Spine: normal cervical lordosis Thoracic/Lumbar Spine: thoracic and lumbar spine normal to inspection Skin: General skin exam: no rashes or lesions noted Neuro: General: patient oriented x3, gait normal, tone normal and moves all extremities Extrem: General: Yes normal to inspection and Yes capillary refill normal Results Labs Result diagrams: 08/28/20 06:04 08/28/20 06:04 Labs: Abnormal lab results 08/28/20 Range/Units 06:04 Hgb 13.9 L (14.0-18.0) g/dl Hct 41.8 L (42-52) % Short CBC 08/28/20 Range/Units 06:04 WBC 8.5 (4.8-10.8) X10*3/uL Hgb 13.9 L (14.0-18.0) g/dl Hct 41.8 L (42-52) % Plt Count 223 (160-400) X10*3/uL BMP 08/28/20 06:04 Sodium 140 Potassium 4.2 Chloride 108 Carbon Dioxide 24 BUN 14 Creatinine 0.84 Calcium 8.4 Urine 08/27/20 Range/Units 14:01 Urine Color YELLOW Urine Appearance CLOUDY Urine pH 7.0 (5.0-8.0) Ur Specific [place] 1.020 (1.005-1.025) Urine Protein TRACE (NEG-TRACE) MG/DL Urine Glucose (UA) 100 H (NEG) MG/DL All other labs normal. Assessment and Plan (1) Chronic UTI (urinary tract infection): Status: Acute PICC line for abx
[2020-08-28] MEDS: Enoxaparin Sodium 40 MG/0.4 ML SYRINGE SUBCUT (21:09)
[2020-08-29] VITALS (8 sets, daily range): BP systolic 99–155; BP diastolic 54–74; PULSE 53–79; RESP 16–20; TEMP 36.1–36.8; O2SAT 95–98
[2020-08-29] MEDS: 0.9 % Sodium Chloride Flush 3 ML SYRINGE IVFLUSH ×4 (00:27→23:37)
[2020-08-29 08:07] LABS: Anion Gap 12 (12-20); Blood Urea Nitrogen 21 mg/dL (9-16); Calcium 8.3 mg/dL (8.4-10.2); Carbon Dioxide 25 mmol/L (22-29); Chloride 107 mmol/L (96-108); Estimated Glomerular Filt Rate > 60; Glucose Random 100 mg/dL (60-115); Potassium 4.5 mmol/l (3.3-5.1); Sodium 139 mmol/L (135-145)
[2020-08-29] MEDS: Tamsulosin HCL 0.4 MG CAPSULE PO (08:45)
[2020-08-29] MEDS: Aspirin Enteric Coated 81 MG TABLET.DR PO (08:45)
[2020-08-29] MEDS: lisinopriL 5 MG TABLET PO (08:45)
[2020-08-29] MEDS: Atorvastatin Calcium 40 MG TABLET PO (08:45)
[2020-08-29] MEDS: Isosorbide Mononitrate 30 MG TAB.ER.24H PO (08:45)
[2020-08-29] MEDS: Metoprolol Tartrate 25 MG TABLET PO ×2 (08:45→20:11)
--- NOTE | 2020-08-29 10:47 | HO.PM.IMPN ---
Subjective Subjective Date of Service: 08/29/20 Interval History: UTI Review of Systems Dysuria improving slowly Physical Exam Vital Signs: Vital Signs: Vital Signs Temp Pulse Resp BP Pulse Ox 08/29/20 08:45 79 130/68 08/29/20 08:00 97.8 F 79 18 130/68 95 08/29/20 03:06 96.9 F 58 16 100/54 L 95 08/28/20 23:47 97.6 F 54 16 131/65 98 08/28/20 19:10 97.3 F 70 18 105/56 L 97 08/28/20 15:47 98.1 F 54 18 96/53 L 94 08/28/20 11:55 97.8 F 55 16 101/51 L 96 Body Mass Index 25.0 Physical exam Cvs: [id number], [id number] , no murmur res: clear to auscultation ,no rhonchii or wheezing abd: no rebound or guarding ,nt, bs present. ext pulses present , no cyanosis neuro: axo3 , nonfocal. Objective Data Current Medications Generic Name Dose Route Start Last Admin Trade Name Freq PRN Reason Stop Dose Admin Acetaminophen 650 mg 08/28/20 12:28 Acetaminophen 325 Mg Tablet PO Q6H PRN Fever Aspirin 81 mg 08/28/20 09:00 08/29/20 08:45 Aspirin Enteric Coated 81 Mg Tablet.Dr PO 81 mg DAILY KRISTINE Administration Atorvastatin Calcium 40 mg 08/28/20 09:00 08/29/20 08:45 Atorvastatin Calcium 40 Mg Tablet PO 40 mg DAILY KRISTINE Administration Enoxaparin Sodium 40 mg 08/27/20 19:00 08/28/20 21:09 Enoxaparin Sodium 40 Mg/0.4 Ml Syringe SUBCUT 40 mg Q24H KRISTINE Administration Ertapenem 1 gm/ Sodium 50 mls @ 100 mls/hr 08/28/20 16:00 08/28/20 17:42 Chloride IV Infused DAILY@1600 KRISTINE Infusion Isosorbide Mononitrate 30 mg 08/28/20 09:00 08/29/20 08:45 Isosorbide Mononitrate 30 Mg Tab.Er.24h PO 30 mg DAILY KRISTINE Administration Protocol Lisinopril 5 mg 08/28/20 09:00 08/29/20 08:45 Lisinopril 5 Mg Tablet PO 5 mg DAILY KRISTINE Administration Protocol Metoprolol Tartrate 25 mg 08/27/20 21:00 08/29/20 08:45 Metoprolol Tartrate 25 Mg Tablet PO 25 mg BID KRISTINE Administration Protocol Sodium Chloride 3 ml 08/28/20 00:00 08/29/20 08:46 0.9 % Sodium Chloride Flush 3 Ml Syringe IVFLUSH 3 ml QSHIFT KRISTINE Administration Tamsulosin HCl 0.4 mg 08/28/20 09:00 08/29/20 08:45 Tamsulosin Hcl 0.4 Mg Capsule PO 0.4 mg DAILY KRISTINE Administration Labs CBC & Chem 7: 08/28/20 06:04 08/29/20 06:50 Microbiology Microbiology Results: Microbiology 08/27/20 07:53 Blood - Venous Blood Culture - Preliminary No growth after 24 hours. 08/27/20 07:49 Blood - Venous Blood Culture - Preliminary No growth after 24 hours. 08/27/20 Unknown Urine clean catch - Clean Catch Midstream Urine Culture - Preliminary Gram negative jimmie Assessment and Plan (1) Urinary tract infection: Status: Acute (2) Dysuria: Status: Acute Assessment and Plan: 85-year-old male diagnosed with UTI as outpatient with ongoing dysuria found to have multi-drug resistant UTI 1. UTI: MDR organism sensitive only to ertapenem and gentamicin no evidence of sepsis continue ertapenem, urine culture growing Gram-negative jimmie, blood culture pending Discussed with ID-plan to put a PICC line, patient does not have any fever or white count Urology evaluation. 2.BPH continue tamsulosin 3. CAD stable, no chest pain - continue beta-johanna, aspirin, isosorbide, statin 4. hypertension - continue metoprolol, lisinopril
--- NOTE | 2020-08-29 11:00 | MHC.CM.PN ---
CASE MANAGEMENT ATTEMPTED TO MEET WITH PATIENT TO DISCUSS VNA CHOICES. PATIENT CURRENTLY ASLEEP AND DOES NOT WAKE UP TO THIS INSURANCE SOLICITOR'S ATTMEPTS. VNAS UPDATED IN [facility]. [facility] UPDATED. CURRENTLY AWAITING PICC PLACEMENT AND MEDICATION COST TO PATIENT
--- NOTE | 2020-08-29 12:24 | MHC.CM.PN ---
THIS SET UP MECHANIC STAMPING MACHINES MET WITH PATIENT AND [id number] WITH PERMISSION. 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 HE IS AWARE THAT PICC IS SCHEDULED FOR Monday08/31/2020.
[2020-08-29] MEDS: Sennosides 8.6 MG TABLET 17.2 MG PO (16:07)
[2020-08-29] MEDS: Ertapenem Sodium 1 GM in 0.9 % Sodium Chloride 50 ML IV (16:07)
[2020-08-29] MEDS: Enoxaparin Sodium 40 MG/0.4 ML SYRINGE SUBCUT (17:57)
[2020-08-29] MEDS: polyethylene glycoL 3350 17 GM POWD.PACK PO (22:15)
[2020-08-30] VITALS (8 sets, daily range): BP systolic 99–149; BP diastolic 59–69; PULSE 56–78; RESP 18–20; TEMP 36.2–37.1; O2SAT 95–99
[2020-08-30] MEDS: 0.9 % Sodium Chloride Flush 3 ML SYRINGE IVFLUSH ×3 (07:34→22:10)
[2020-08-30] MEDS: Sennosides 8.6 MG TABLET 17.2 MG PO (09:18)
[2020-08-30] MEDS: Tamsulosin HCL 0.4 MG CAPSULE PO (09:19)
[2020-08-30] MEDS: Aspirin Enteric Coated 81 MG TABLET.DR PO (09:19)
[2020-08-30] MEDS: Atorvastatin Calcium 40 MG TABLET PO (09:19)
[2020-08-30] MEDS: Metoprolol Tartrate 25 MG TABLET PO ×2 (09:19→20:56)
[2020-08-30] MEDS: Isosorbide Mononitrate 30 MG TAB.ER.24H PO (09:19)
[2020-08-30] MEDS: lisinopriL 5 MG TABLET PO (09:20)
--- NOTE | 2020-08-30 11:21 | HO.PM.IMPN ---
Subjective Subjective Date of Service: 08/30/20 Interval History: uti Review of Systems Patient still has dysuria he but improving., denies any abdominal pain or fever or chill, nausea or vomiting. Physical Exam Vital Signs: Vital Signs: Vital Signs Temp Pulse Resp BP Pulse Ox 08/30/20 09:20 68 132/65 08/30/20 09:19 68 132/65 08/30/20 08:00 97.1 F 59 20 129/62 95 08/30/20 03:28 97.6 F 78 19 149/69 H 97 08/29/20 23:30 97.6 F 69 20 155/73 H 97 08/29/20 20:11 61 119/62 08/29/20 20:00 98.3 F 77 20 134/74 98 08/29/20 15:49 97.8 F 54 20 119/63 95 Body Mass Index 25.0 Physical exam: Cvs: [id number], [id number] , no murmur. res: clear to auscultation ,no rhonchii or wheezing abd: no rebound or guarding ,nt, bs present. ext pulses present , no cyanosis : no cva tenderness neuro: axo3 , nonfocal. Objective Data Current Medications Generic Name Dose Route Start Last Admin Trade Name Freq PRN Reason Stop Dose Admin Acetaminophen 650 mg 08/28/20 12:28 Acetaminophen 325 Mg Tablet PO Q6H PRN Fever Aspirin 81 mg 08/28/20 09:00 08/30/20 09:19 Aspirin Enteric Coated 81 Mg Tablet.Dr PO 81 mg DAILY KRISTINE Administration Atorvastatin Calcium 40 mg 08/28/20 09:00 08/30/20 09:19 Atorvastatin Calcium 40 Mg Tablet PO 40 mg DAILY KRISTINE Administration Enoxaparin Sodium 40 mg 08/27/20 19:00 08/29/20 17:57 Enoxaparin Sodium 40 Mg/0.4 Ml Syringe SUBCUT 40 mg Q24H KRISTINE Administration Ertapenem 1 gm/ Sodium 50 mls @ 100 mls/hr 08/28/20 16:00 08/29/20 17:07 Chloride IV Infused DAILY@1600 KRISTINE Infusion Isosorbide Mononitrate 30 mg 08/28/20 09:00 08/30/20 09:19 Isosorbide Mononitrate 30 Mg Tab.Er.24h PO 30 mg DAILY KRISTINE Administration Protocol Lisinopril 5 mg 08/28/20 09:00 08/30/20 09:20 Lisinopril 5 Mg Tablet PO 5 mg DAILY [facility] Administration Protocol Metoprolol Tartrate 25 mg 08/27/20 21:00 08/30/20 09:19 Metoprolol Tartrate 25 Mg Tablet PO 25 mg BID [facility] Administration Protocol Polyethylene Glycol 17 gm 08/29/20 21:00 08/30/20 09:23 Polyethylene Glycol 3350 17 Gm Powd.Pack PO Not Given BID [facility] Senna 17.2 mg 08/29/20 15:15 08/30/20 09:18 Sennosides 8.6 Mg Tablet PO 17.2 mg DAILY [facility] Administration Sodium Chloride 3 ml 08/28/20 00:00 08/30/20 07:34 0.9 % Sodium Chloride Flush 3 Ml Syringe IVFLUSH 3 ml QSHIFT [facility] Administration Tamsulosin HCl 0.4 mg 08/28/20 09:00 08/30/20 09:19 Tamsulosin Hcl 0.4 Mg Capsule PO 0.4 mg DAILY [facility] Administration Labs CBC & Chem 7: 08/28/20 06:04 08/29/20 06:50 Microbiology Microbiology Results: Microbiology 08/27/20 07:53 Blood - Venous Blood Culture - Preliminary No growth after 48 hours. 08/27/20 07:49 Blood - Venous Blood Culture - Preliminary No growth after 48 hours. 08/27/20 Unknown Urine clean catch - Clean Catch Midstream Urine Culture - Final Proteus mirabilis Assessment and Plan (1) Urinary tract infection: Status: Acute (2) Dysuria: Status: Acute Assessment and Plan: 85-year-old male diagnosed with UTI as outpatient with ongoing dysuria found to have multi-drug resistant UTI 1. UTI: MDR organism sensitive only to ertapenem and gentamicin no evidence of sepsis continue ertapenem, urine culture growing Gram-negative jimmie, blood culture pending Discussed with ID-plan to put a PICC line, patient does not have any fever or white count Urology evaluation. 2.BPH continue tamsulosin 3. CAD stable, no chest pain continue beta-johanna, aspirin, isosorbide, statin 4. hypertension: continue metoprolol, lisinopril
[2020-08-30] MEDS: Ertapenem Sodium 1 GM in 0.9 % Sodium Chloride 50 ML IV (15:18)
[2020-08-31] VITALS: BP 98/59; PULSE 55; RESP 16; TEMP 36.3; O2SAT 99
[2020-08-31 04:00] VITALS: BP 120/64; PULSE 67; RESP 18; TEMP 36.2; O2SAT 96
[2020-08-31 06:59] LABS: Anion Gap 12 (12-20); Blood Urea Nitrogen 22 mg/dL (9-16); Calcium 8.5 mg/dL (8.4-10.2); Carbon Dioxide 25 mmol/L (22-29); Chloride 108 mmol/L (96-108); Creatinine Clr Calc Pharmacy 79.9; Estimated Glomerular Filt Rate > 60; Glucose Random 101 mg/dL (60-115); Potassium 4.5 mmol/l (3.3-5.1); Sodium 140 mmol/L (135-145)
[2020-08-31 08:00] VITALS: BP 116/64; PULSE 65; RESP 17; TEMP 36.7; O2SAT 97
[2020-08-31] MEDS: 0.9 % Sodium Chloride Flush 3 ML SYRINGE IVFLUSH (08:13)
[2020-08-31 08:14] VITALS: BP 116/64; PULSE 65
[2020-08-31] MEDS: lisinopriL 5 MG TABLET PO (08:14)
[2020-08-31] MEDS: Metoprolol Tartrate 25 MG TABLET PO (08:14)
[2020-08-31] MEDS: Atorvastatin Calcium 40 MG TABLET PO (08:14)
[2020-08-31] MEDS: Tamsulosin HCL 0.4 MG CAPSULE PO (08:14)
[2020-08-31] MEDS: Isosorbide Mononitrate 30 MG TAB.ER.24H PO (08:15)
--- NOTE | 2020-08-31 10:10 | HO.PICC ---
PICC Line Insertion [facility] Diagnosis: [URINARY TRACT INFECTION, ONGOING DYSURIA, MULTI-DRUG RESISTANT UTI] Indication: [HALFWAY IV ANTIBIOTIC THERAPY] Pertinent Labs: [REVIEWED] Technique: Following informed consent including risks, benefits and alternatives and using sterile technique including cap and mask, sterile gown, glove and drape, the [RIGHT] arm was prepped and draped in the usual sterile fashion of full barrier technique with CHG. Following completion of [place] Protocol the skin and soft tissues were anesthetized with 1% Lidocaine plain. Using ultrasound guidance, [THE RIGHT BRACHIAL] vein access was obtained. Over an 0.018 wire through peel-away sheath, a [SINGLE LUMEN] PICC line was positioned. Catheter length is [42 CM] internal length, [ZERO] external length, for a total trimmed length of [42 CM]. The procedure was performed in [ROOM S272]. Tip verification was performed by Diane Cortés with [facility] 3CG. Tip located in SVC. Ultrasound was used to document vein patency and for needle entry. A formal ultrasound picture and cardiac rhythm strip was recorded. [facility] Physician Assistant has released the line for use and it is currently dressed with a StatLock, Tegaderm, and CHG disc. Verification has been performed for blood return and line patency. Arm Circumference: [30.5 CM] Equipment: [BARD POWER PICC SOLO] Catheter Type: [4 GUATEMALAN SINGLE LUMEN PICC] Lot #: [[id number]]
--- NOTE | 2020-08-31 11:05 | MHC.CM.PN ---
CM received a message that Alyce ([phone]) from [facility] called. CM attempted to call her back however the line was busy. SAIRA sent Alyce a message via [employer]. CM currently awaiting response from [facility] regarding the out of pocket cost for patient.
[2020-08-31 11:53] VITALS: BP 114/60; PULSE 55; RESP 18; TEMP 36.8; O2SAT 96
--- NOTE | 2020-08-31 12:05 | PM.DS ---
DS: Providers Provider Date of admission: 08/27/20 17:06 Primary care physician: Pro Nunn MD Consults: 08/27/20 18:31 Consult to Infectious Diseases Routine Consulting Provider: Cindi Melgoza Reason for consultation: uti Has provider been notified: No 08/28/20 12:29 Consult to Urology Routine Consulting Provider: Jerman Hein Reason for consultation: uti, bph Has provider been notified: No 08/28/20 13:32 Consult to Infectious Diseases Stat Consulting Provider: Cindi Melgoza Reason for consultation: NEW ERTAPENEM Has provider been notified: Yes DS: Diagnosis Discharge Diagnosis (1) Urinary tract infection: Status: Acute (2) Dysuria: Status: Acute (3) Chronic UTI (urinary tract infection): Status: Acute DS: Summary Hospital Course Hospital Course: 85-year-old male who presents to the emergency department with dysuria. His symptoms initially began on August 12. At that time he gave a urine sample but did not receive results right away therefore he went to Urgent Care and was started on a course of Bactrim. He completed 1 week of Bactrim but continued to be symptomatic. He had tried to make an appointment with his urologist. the urology office was able to look up the sensitivities from his urine culture and noted it was not sensitive to any oral antibiotics. They recommended he come to the emergency department for evaluation. Patient denies any fever, chills, nausea, vomiting. He denies any flank pain. He is able to tolerate p.o. In the emergency department he was afebrile and lab work revealed no leukocytosis. he was started on Invanz in the ED and the decision was made to admit him for further IV antibiotics. Hospital Course problem [place] section: 85-year-old male diagnosed with UTI as outpatient with ongoing dysuria found to have multi-drug resistant UTI UTI MDR( proteus mirabilis) organism sensitive only to ertapenem and gentamicin no evidence of sepsis started on iv ertapenem, seen by infectious disease: Patient blood culture negative at 48 hours, discussed with infectious disease patient is in going to need 14 total days of antibiotic patient already received 2 days so will give 12 days supply of ertapenem. Seen by Urology also: Recommended to continue tamsulosin for BPH currently and further patient is to follow-up with Dr. Hein out patiently for further management. Above management discussed with the patient in detail length he understand and in agreement with the above plan, time spent 50 minutes and 50% time spent on counseling. Significant findings: As above. Procedures performed: None. Treatment and response: As above. Complications: None. Time Spent with Patient Time attestation: Total time spent providing and/or coordinating discharge services: Physical Exam Vital Signs: Vital Signs: Vital Signs Temp Pulse Resp BP Pulse Ox 08/31/20 11:53 98.2 F 55 18 114/60 96 08/31/20 08:14 65 116/64 08/31/20 08:00 98.1 F 65 17 116/64 97 08/31/20 04:00 97.2 F 67 18 120/64 96 08/31/20 00:00 97.4 F 55 16 98/59 L 99 08/30/20 20:56 73 121/59 L 08/30/20 19:25 98.7 F 73 18 121/59 L 99 08/30/20 15:50 97.8 F 56 18 117/63 96 Body Mass Index 25.0 Physical exam: Constitutional: Patient is at average built male without any distress heent: eye anicteric neck supple Cvs: rrr, [id number] , no murmur res: clear to auscultation ,no rhonchii or wheezing abd: no rebound or guarding ,nt, bs present. ext pulses present , no cyanosis neuro: axo3 , nonfocal. DS: Data Data Completed and Pending Labs on day of discharge: Labs from last 24 hours 08/31/20 06:02 Sodium 140 Potassium 4.5 Chloride 108 Carbon Dioxide 25 Anion Gap 12 BUN 22 H Creatinine 0.80 Estim Creat Clear Calc 79.9 Estimated GFR > 60 Random Glucose 101 Calcium 8.5 Preliminary micro results at discharge 08/27/20 07:53 Blood Culture - Preliminary Blood - Venous No growth after 48 hours. 08/27/20 07:49 Blood Culture - Preliminary Blood - Venous No growth after 48 hours. Discharge Plan Discharge Patient Disposition: Home Health Service Referrals: [facility] [Other] Denise Cormier [Outside] Po,Pro Adame MD [Primary Care Provider] - Discharge Medications: New ertapenem [Invanz] 1 gram Recon Soln 1 g IV DAILY@1600 Qty: 12 RF: 0 sennosides [Senna Lax] 8.6 mg Tablet 17.2 mg PO DAILY Qty: 30 RF: 0 Continued lisinopril 5 mg tablet 5 mg PO DAILY RF: 0 metoprolol tartrate 25 mg tablet 25 mg PO BID RF: 0 isosorbide mononitrate 30 mg tablet extended release 24 hr 30 mg PO DAILY RF: 0 tamsulosin 0.4 mg capsule 0.4 mg PO DAILY RF: 0 rosuvastatin [Crestor] 10 mg tablet 10 mg PO DAILY Qty: 90 RF: 4 aspirin [Enteric Coated Aspirin] 81 mg tablet,delayed release (DR/EC) 81 mg PO DAILY Qty: 90 RF: 4 Discharge Orders: Discharge Order (Routine); Ordered 08/31/20 Ordered By: Geo Whitehead Diet: advance to your usual diet Activity on Discharge: As tolerated Other Ambulatory Orders: Basic Metabolic Panel Fasting (Routine) Timeframe: 1 Week Facility: [facility] - Location: Laboratory Ordered By: Geo Whitehead Complete Blood Count no Diff (Routine) Timeframe: 1 Week Facility: [facility] - Location[facility] Ordered By: Geo Whitehead Liver Panel (Routine) Timeframe: 1 Week Facility: [facility] - Location: Laboratory Ordered By: Geo Whitehead Visit Report Forms: Patient Portal Discharge page Care Plan Goals: Patient came with Proteus mirabilis UTI which is only sensitive to ertapenem, subsequently patient was started on meropenem and seems improving: Seen by infectious disease and urology and recommended to continue atropine and for total 14 days, patient already received 2 days of ertapenem so we will give 12 days atropine supply. PICC line was placed and patient is going home with a tap enema, monitor CBC, BMP, LFTs weekly while the patient is on antibiotic at happened. Further management outpatient as per PCP. Patient is to follow-up with Urology out patiently for above . Health Concerns: As above. Plan of Treatment: As above.
--- NOTE | 2020-08-31 12:41 | W.MHC.F2F ---
Service Date Service Date: 08/31/20 Encounter Date of encounter: 08/31/20 Encounter: uti -probable esbl , bph. Reasons for Services Signs and symptoms assessed: Dysuria seems improving overseeing care: Geo Whitehead MD Homebound: Leaving the home is medically contraindicated at this time without the asist of a device and/or another person due th the listed conditions above and below. Homebound supporting statement: Patient is generalized weak and needed help to go to appointments. Not Certification: Based on the above findings, I certify that this patient is confined to the home and needs intermittent penitentiary care, physical therapy and/or speech therapy, or continues to need occupational therapy. The patient is under my care, and I have initiated the establishment of the plan of care. The patient will be followed by a physician who will periodically review the plan of care.
[2020-08-31] MEDS: Ertapenem Sodium 1 GM in 0.9 % Sodium Chloride 50 ML IV (14:45)
--- NOTE | 2020-08-31 16:25 | PC.NURSE ---
PICC line intact in left upper arm,patent,drsg intact ,no redness ,no swelling
== END 2020-08-31 16:50 | disposition home health service (06) | DRG 690 ==
LOC: HO.ED 16:24 → HO.S3 17:42
PROVIDERS: Physician Assistant; Physician Assistant Medical; Admitting Provider Internal Medicine; Emergency Provider Internal Medicine; PCP Internal Medicine; Visit Provider Internal Medicine
DX: N39.0 Urinary tract infection, site not specified (principal); Z16.12 Extended spectrum beta lactamase (ESBL) resistance; E78.5 Hyperlipidemia, unspecified; N40.0 Benign prostatic hyperplasia without lower urinary tract symptoms; Z23 Encounter for immunization; I25.10 Atherosclerotic heart disease of native coronary artery without angina pectoris; B96.4 Proteus (mirabilis) (morganii) as the cause of diseases classified elsewhere; I10 Essential (primary) hypertension; Z79.82 Long term (current) use of aspirin; Z79.899 Other long term (current) drug therapy
CPT/HCPCS: 36415; 36573; 80048; 80053; 81001; 85025; 87040; 87086; 87088; 87186; 90686; 96365; 99285; C1751; J1335; J1650

== ENCOUNTER 2020-09-04 10:35 | Emergency (ER) | payer MEDICARE, OTHER, SELFPAY ==
--- NOTE | 2020-09-04 10:44 | ED.WEAKNESS ---
HPI - Weakness General Chief complaint: Weakness Stated complaint: uti/weakness Time Seen by Provider: 09/04/20 10:44 Source: patient and EMS Mode of arrival: EMS Limitations: no limitations History of Present Illness MD Complaint: generalized weakness Onset (ago): day(s) (started upon waking today) Duration: constant Location: generalized Migration: none Severity: moderate Quality: dull Relieving factors: none Exacerbating factors: movement Context: recent illness (dx with MDR proteus - on ertapenem DC from hospital on 08/31 with 12 days of more meds has been fine until today) Associated symptoms: loss of appetite and other (states he was so weak he couldn't get out of bed and almost slipped) Related Data Home Medications Medication Instructions Recorded Confirmed isosorbide mononitrate 30 mg 30 mg PO DAILY 08/06/20 08/27/20 tablet,extended release 24 hr lisinopril 5 mg tablet 5 mg PO DAILY 08/06/20 08/27/20 metoprolol tartrate 25 mg tablet 25 mg PO BID 08/06/20 08/27/20 tamsulosin 0.4 mg capsule 0.4 mg PO DAILY 08/06/20 08/27/20 Previous Rx's Medication Instructions Recorded aspirin 81 mg tablet,delayed 81 mg PO DAILY #90 tab 08/06/20 release rosuvastatin 10 mg tablet 10 mg PO DAILY #90 tab 08/06/20 ertapenem [Invanz] 1 g IV DAILY@1600 #12 ea 08/31/20 sennosides [Senna Lax] 17.2 mg PO DAILY #30 tab 08/31/20 Allergies Allergy/AdvReac Type Severity Reaction Status Date / Time diphenhydramine AdvReac Intermediate Hallucinati Verified 08/06/20 08:42 [From Benadryl] ons Review of Systems Review of Systems: Constitutional : No Weight loss, No Fever, No Chills, pos Fatigue, pos Malaise ENT/Mouth : No sore throat, No Rhinorrhea Eyes: No Eye Pain, No Swelling, No Redness Cardiovascular : No Chest Pain, No SOB, No Dyspnea on Exertion, No Orthopnea, No Edema, No Palpitations Respiratory : No Cough, No Sputum, No Wheezing Gastrointestinal : No Nausea, No Vomiting, No Diarrhea, No Constipation, No abdominal Pain, No Hematochezia, No Melena Genitourinary : No Dysuria, No Urinary Frequency, No Hematuria, Musculoskeletal : No joint pain, No Myalgias, No Joint Swelling Skin : No Skin Lesions, No rash Neuro : pos Weakness, No Numbness, No Dizziness, No Headache Psych : No Anxiety/Panic, No Depression All other systems reviewed and are negative [facility] Past Medical History Medical History Abnormal myocardial perfusion study Atherosclerotic cardiovascular disease Colon cancer Essential hypertension Hyperlipidemia, unspecified Prostate cancer Surgical History History of appendectomy History of bladder surgery (~01/04/18) History of colectomy History of prostate surgery (~2016) Family History Family History Father Pancreatic cancer Mother No problems noted. Brother Liver cancer Social History Social History Household Members: Spouse Housing: House Alcohol intake: unknown Smoking Status: Unknown if ever smoked Use of substances other than those prescribed or required for medical reasons: No Advance Directives: No Advance Directives Information Provided: Yes service: Yes Current occupational status: retired Physical Exam Vital Signs: Vital Signs: Last Vital Signs Temp 98.1 F 09/04/20 12:27 Pulse 84 09/04/20 14:27 Resp 16 09/04/20 12:27 BP 189/92 H 09/04/20 14:27 Pulse Ox 99 09/04/20 10:46 Body Mass Index 24.9 Appearance: Alert. Oriented X3. No acute distress. Eyes: Pupils equal, round and reactive to light. ENT: Pharynx normal. Neck: Normal inspection. Neck supple. CVS: Normal heart rate and rhythm. Pulses normal. Respiratory: No respiratory distress. Breath sounds normal. Abdomen: Soft and nontender. Skin: Skin warm and dry. Normal skin color. Normal skin turgor. Extremities: No lower extremity edema. No calf ttp Neuro: Oriented X 3. No motor deficit. No sensory deficit. Course Course Course Narrative: overall blood work and VS reassuring, feels better, giving home dose of ertapenem patient feels much better after fluids if repeat trop negative stable for DC no evidence of sepsis, UA today underwhelming trop negative MDM - Weakness MDM Narrative Medical decision making narrative: 85 yo male with PICC line chronic UTI MDR proteus on ertapenem - here with 1 day of weakness starting today, reports okay appetite, has no focal deficits, no trauma will obtain labs, EKG, hydrate, ortho VS, dispo per results and findings. Lab Data Result diagrams: 09/04/20 11:24 09/04/20 11:24 Labs: Lab Results 09/04/20 09/04/20 09/04/20 Range/Units 11:24 11:24 11:24 WBC 8.2 (4.8-10.8) X10*3/uL RBC 4.41 L (4.60-5.80) X10*6/uL Hgb 13.4 L (14.0-18.0) g/dl Hct 39.6 L (42-52) % MCV 89.8 (80-98) fL MCH 30.4 (27.0-33.0) pg MCHC 33.8 (31.0-36.0) g/dl RDW 12.2 (11.0-16.0) % Plt Count 198 (160-400) X10*3/uL MPV 10.3 (9.4-12.4) fL Immature Gran % (Auto) 0.4 (0.0-0.4) % Neut % (Auto) 69.1 (45-73) % Lymph % (Auto) 22.1 (20-40) % [place] % (Auto) 5.2 (2-11) % Eos % (Auto) 3.0 (0-4) % Baso % (Auto) 0.2 (0-2) % Lymph # (Auto) 1.8 (1.2-4.9) X10*3/uL [place] # (Auto) 0.4 (0.1-1.2) X10*3/uL Eos # (Auto) 0.3 (0.0-0.4) X10*3/uL Baso # (Auto) 0.0 (0.0-0.2) X10*3/uL Abs Immat Gran (auto) 0.03 (0.00-0.03) X10*3/uL Absolute Neuts (auto) 5.7 (2.0-8.3) X10*3/uL Absolute Nucleated RBC 0.000 (0.0-0.012) X10*3/uL Nucleated RBC % (auto) 0.0 (0.0-0.2) /100WBC Hold Blue Top SEE NOTE Sodium 140 (135-145) mmol/L Potassium 4.2 (3.3-5.1) mmol/l Chloride 109 H (96-108) mmol/L Carbon Dioxide 24 (22-29) mmol/L Anion Gap 11 L (12-20) BUN 19 H (9-16) mg/dL Creatinine 0.79 (0.5-1.4) mg/dL Estim Creat Clear Calc 80.9 Estimated GFR > 60 Random Glucose 146 H D (60-115) mg/dL Lactic Acid (0.5-2.0) mmol/L Calcium 8.1 L (8.4-10.2) mg/dL Magnesium 2.1 (1.6-2.6) mg/dL Total Bilirubin 0.2 (0.0-1.0) mg/dL Direct Bilirubin 0.2 (0.0-0.5) mg/dL AST 16 (5-37) U/L ALT 21 (0-40) U/L Alkaline Phosphatase 75 (39-117) U/L Troponin I High Sens (<3.5-35.0) ng/L Total Protein 5.9 L (6.5-8.0) g/dL Albumin 3.7 (3.5-5.0) g/dL Lipase 12 (8-78) U/L Urine Color Urine Appearance Urine pH (5.0-8.0) Ur Specific [place] (1.005-1.025) Urine Protein (NEG-TRACE) MG/DL Urine Glucose (UA) (NEG) MG/DL Urine Ketones (NEG) MG/DL Urine Blood (NEG) Urine Nitrite (NEG) Ur Leukocyte Esterase (NEG) Urine RBC (0) /HPF Urine WBC (0-4) /HPF Ur Squamous Epith Cells /LPF Ur Renal Epithelial Cell /LPF Urine Bacteria /LPF 09/04/20 09/04/20 09/04/20 Range/Units 11:24 11:25 14:00 WBC (4.8-10.8) X10*3/uL RBC (4.60-5.80) X10*6/uL Hgb (14.0-18.0) g/dl Hct (42-52) % MCV (80-98) fL MCH (27.0-33.0) pg MCHC (31.0-36.0) g/dl RDW (11.0-16.0) % Plt Count (160-400) X10*3/uL MPV (9.4-12.4) fL Immature Gran % (Auto) (0.0-0.4) % Neut % (Auto) (45-73) % Lymph % (Auto) (20-40) % [place] % (Auto) (2-11) % Eos % (Auto) (0-4) % Baso % (Auto) (0-2) % Lymph # (Auto) (1.2-4.9) X10*3/uL [place] # (Auto) (0.1-1.2) X10*3/uL Eos # (Auto) (0.0-0.4) X10*3/uL Baso # (Auto) (0.0-0.2) X10*3/uL Abs Immat Gran (auto) (0.00-0.03) X10*3/uL Absolute Neuts (auto) (2.0-8.3) X10*3/uL Absolute Nucleated RBC (0.0-0.012) X10*3/uL Nucleated RBC % (auto) (0.0-0.2) /100WBC Hold Blue Top Sodium (135-145) mmol/L Potassium (3.3-5.1) mmol/l Chloride (96-108) mmol/L Carbon Dioxide (22-29) mmol/L Anion Gap (12-20) BUN (9-16) mg/dL Creatinine (0.5-1.4) mg/dL Estim Creat Clear Calc Estimated GFR Random Glucose (60-115) mg/dL Lactic Acid 1.9 (0.5-2.0) mmol/L Calcium (8.4-10.2) mg/dL Magnesium (1.6-2.6) mg/dL Total Bilirubin (0.0-1.0) mg/dL Direct Bilirubin (0.0-0.5) mg/dL AST (5-37) U/L ALT (0-40) U/L Alkaline Phosphatase (39-117) U/L Troponin I High Sens 9.3 8.0 (<3.5-35.0) ng/L Total Protein (6.5-8.0) g/dL Albumin (3.5-5.0) g/dL Lipase (8-78) U/L Urine Color Urine Appearance Urine pH (5.0-8.0) Ur Specific [place] (1.005-1.025) Urine Protein (NEG-TRACE) MG/DL Urine Glucose (UA) (NEG) MG/DL Urine Ketones (NEG) MG/DL Urine Blood (NEG) Urine Nitrite (NEG) Ur Leukocyte Esterase (NEG) Urine RBC (0) /HPF Urine WBC (0-4) /HPF Ur Squamous Epith Cells /LPF Ur Renal Epithelial Cell /LPF Urine Bacteria /LPF 09/04/20 Range/Units 14:04 WBC (4.8-10.8) X10*3/uL RBC (4.60-5.80) X10*6/uL Hgb (14.0-18.0) g/dl Hct (42-52) % MCV (80-98) fL MCH (27.0-33.0) pg MCHC (31.0-36.0) g/dl RDW (11.0-16.0) % Plt Count (160-400) X10*3/uL MPV (9.4-12.4) fL Immature Gran % (Auto) (0.0-0.4) % Neut % (Auto) (45-73) % Lymph % (Auto) (20-40) % [place] % (Auto) (2-11) % Eos % (Auto) (0-4) % Baso % (Auto) (0-2) % Lymph # (Auto) (1.2-4.9) X10*3/uL [place] # (Auto) (0.1-1.2) X10*3/uL Eos # (Auto) (0.0-0.4) X10*3/uL Baso # (Auto) (0.0-0.2) X10*3/uL Abs Immat Gran (auto) (0.00-0.03) X10*3/uL Absolute Neuts (auto) (2.0-8.3) X10*3/uL Absolute Nucleated RBC (0.0-0.012) X10*3/uL Nucleated RBC % (auto) (0.0-0.2) /100WBC Hold Blue Top Sodium (135-145) mmol/L Potassium (3.3-5.1) mmol/l Chloride (96-108) mmol/L Carbon Dioxide (22-29) mmol/L Anion Gap (12-20) BUN (9-16) mg/dL Creatinine (0.5-1.4) mg/dL Estim Creat Clear Calc Estimated GFR Random Glucose (60-115) mg/dL Lactic Acid (0.5-2.0) mmol/L Calcium (8.4-10.2) mg/dL Magnesium (1.6-2.6) mg/dL Total Bilirubin (0.0-1.0) mg/dL Direct Bilirubin (0.0-0.5) mg/dL AST (5-37) U/L ALT (0-40) U/L Alkaline Phosphatase (39-117) U/L Troponin I High Sens (<3.5-35.0) ng/L Total Protein (6.5-8.0) g/dL Albumin (3.5-5.0) g/dL Lipase (8-78) U/L Urine Color YELLOW Urine Appearance CLEAR Urine pH 6.0 (5.0-8.0) Ur Specific [place] 1.020 (1.005-1.025) Urine Protein NEG (NEG-TRACE) MG/DL Urine Glucose (UA) NEG (NEG) MG/DL Urine Ketones NEG (NEG) MG/DL Urine Blood TRACE (NEG) Urine Nitrite NEG (NEG) Ur Leukocyte Esterase NEG (NEG) Urine RBC 5-9 H (0) /HPF Urine WBC 5-9 H (0-4) /HPF Ur Squamous Epith Cells 1+ /LPF Ur Renal Epithelial Cell TRACE /LPF Urine Bacteria NONE /LPF ECG Data Attestation: I personally reviewed and interpreted this ECG as follows: ECG interpretation date: 09/04/20 ECG interpretation time: 11:16 Interpretation: Rate: 62 Rhythm: NSR with 1st degree AVB [place]: normal Normal P waves. 1st degree AVB Normal QRS complex. ST T wave : normal qTC: normal prior studies: no acute ischemia The study has been interpreted contemporaneously by me. . Discharge Plan Discharge Clinical Impression: Weakness Patient Disposition: Home, Self-Care Instructions: Weakness (ED) Additional Instructions: return to ED for any worsening symptoms or concerns you were given your antibiotic dose today, you were also hydrated, your labs and EKG were reassuring please return for any issues Prescriptions: No Action ertapenem [Invanz] 1 gram Recon Soln 1 g IV DAILY@1600 Qty: 12 RF: 0 sennosides [Senna Lax] 8.6 mg Tablet 17.2 mg PO DAILY Qty: 30 RF: 0 lisinopril 5 mg tablet 5 mg PO DAILY RF: 0 metoprolol tartrate 25 mg tablet 25 mg PO BID RF: 0 isosorbide mononitrate 30 mg tablet extended release 24 hr 30 mg PO DAILY RF: 0 tamsulosin 0.4 mg capsule 0.4 mg PO DAILY RF: 0 rosuvastatin [Crestor] 10 mg tablet 10 mg PO DAILY Qty: 90 RF: 4 aspirin [Enteric Coated Aspirin] 81 mg tablet,delayed release (DR/EC) 81 mg PO DAILY Qty: 90 RF: 4 Referrals: Po,Pro Adame MD [Primary Care Provider] - 3 days
[2020-09-04 10:46] VITALS: BP 130/40; PULSE 60; RESP 16; TEMP 36.6; O2SAT 99; BMI 24.9
--- NOTE | 2020-09-04 10:50 | ECG_ITS ---
Test Reason : WEAKNESS Blood Pressure : / mmHG Vent. Rate : 062 BPM Atrial Rate : 062 BPM P-R Int : 352 ms QRS Dur : 096 ms QT Int : 420 ms P-R-T Axes : 036 005 033 degrees QTc Int : 426 ms Sinus rhythm with 1st degree A-V block Otherwise normal ECG When compared with ECG of 07-SEP-2017 15:12, [place] interval has increased Referred By: Ignacia Naik Electronically Signed By:MARCOS SALCEDO MD
--- NOTE | 2020-09-04 10:51 | XR_ITS ---
EXAMINATION: XR CHEST CLINICAL INFORMATION: Weakness. COMPARISON: Chest 06/06/2019 TECHNIQUE: Frontal view of the chest was obtained. FINDINGS: The lungs are well-expanded with no acute process seen. Minimal right apical pleural thickening and bilateral pleural calcifications seen. The heart size and pulmonary vascularity is normal. There is mild ventral spondylosis dorsal spine. No lytic process. XR/XR chest 1V IMPRESSION: No acute cardiopulmonary process seen.
[2020-09-04] MEDS: 0.9 % Sodium Chloride 1,000 ML 999 ML IVCONT (11:37)
[2020-09-04 11:43] LABS: MANUAL DIFF FLAG NO
[2020-09-04 11:47] LABS: Basophils Percent Auto 0.2 % (0-2); Eosinophils Absolute Auto 0.3 X10*3/uL (0.0-0.4); Hematocrit 39.6 % (42-52); Hemoglobin 13.4 g/dl (14.0-18.0); Imm Gran Abs Auto 0.03 X10*3/uL (0.00-0.03); Imm Gran Pct Auto 0.4 % (0.0-0.4); Lymphocytes Absolute Auto 1.8 X10*3/uL (1.2-4.9); Lymphocytes Percent Auto 22.1 % (20-40); Mean Corpuscular HGB Conc 33.8 g/dl (31.0-36.0); Mean Corpuscular Hemoglobin 30.4 pg (27.0-33.0); Mean Corpuscular Volume 89.8 fL (80-98); Mean Platelet Volume 10.3 fL (9.4-12.4); Monocytes Absolute Auto 0.4 X10*3/uL (0.1-1.2); Monocytes Percent Auto 5.2 % (2-11); Neutrophils Absolute Auto 5.7 X10*3/uL (2.0-8.3); Neutrophils Percent Auto 69.1 % (45-73); Platelet Count 198 X10*3/uL (160-400); Red Blood Count 4.41 X10*6/uL (4.60-5.80); Red Cell Distribution Width 12.2 % (11.0-16.0); White Blood Count 8.2 X10*3/uL (4.8-10.8)
[2020-09-04 12:20] LABS: Lactic Acid 1.9 mmol/L (0.5-2.0)
[2020-09-04 12:24] LABS: Alanine Aminotransferase 21 U/L (0-40); Albumin Level 3.7 g/dL (3.5-5.0); Alkaline Phosphatase 75 U/L (39-117); Anion Gap 11 (12-20); Aspartate Amino Transferase 16 U/L (5-37); Bilirubin Direct 0.2 mg/dL (0.0-0.5); Bilirubin Total 0.2 mg/dL (0.0-1.0); Blood Urea Nitrogen 19 mg/dL (9-16); Calcium 8.1 mg/dL (8.4-10.2); Carbon Dioxide 24 mmol/L (22-29); Chloride 109 mmol/L (96-108); Creatinine Clr Calc Pharmacy 80.9; Estimated Glomerular Filt Rate > 60; Glucose Random 146 mg/dL (60-115); Lipase 12 U/L (8-78); Magnesium 2.1 mg/dL (1.6-2.6); Potassium 4.2 mmol/l (3.3-5.1); Sodium 140 mmol/L (135-145); Total Protein 5.9 g/dL (6.5-8.0)
[2020-09-04 12:26] LABS: Troponin-I High Sensitivity 9.3 ng/L (<3.5-35.0)
[2020-09-04 12:27] VITALS: BP 144/68; PULSE 66; RESP 16; TEMP 36.7
[2020-09-04 14:21] LABS: Glucose Urine UA NEG (NEG); Leukocyte Esterase Urine NEG (NEG); Nitrite Urine NEG (NEG); Urine Blood TRACE (NEG); Urine Ketones NEG (NEG); Urine Protein NEG (NEG-TRACE)
[2020-09-04 14:23] LABS: Appearance Urine CLEAR; Color Urine YELLOW
[2020-09-04 14:26] VITALS: BP 176/93; PULSE 80
[2020-09-04 14:27] VITALS: BP 174/92; BP 189/92; PULSE 78; PULSE 84
[2020-09-04 14:32] LABS: Renal Epithelial Cells Urine TRACE /LPF; Squamous Epithelial Cell Urine 1+ /LPF; UACC CULT YES
[2020-09-04 15:40] VITALS: BP 160/82; PULSE 82; RESP 18
== END 2020-09-04 15:55 | disposition home or self-care (01) ==
PROVIDERS: Emergency Provider Emergency Medicine; PCP Internal Medicine
DX: R53.1 Weakness (principal); R07.9 Chest pain, unspecified; Z79.899 Other long term (current) drug therapy
CPT/HCPCS: 36415; 71045; 80048; 80076; 81001; 83605; 83690; 83735; 84484; 85025; 87040; 87086; 93005; 96361; 96365; 99284

== ENCOUNTER 2020-09-07 08:28 | Outpatient (REF) | payer MEDICARE, OTHER, SELFPAY ==
[2020-09-07 09:44] LABS: Hematocrit 40.9 % (42-52); Hemoglobin 13.4 g/dl (14.0-18.0); Mean Corpuscular HGB Conc 32.8 g/dl (31.0-36.0); Mean Corpuscular Hemoglobin 29.7 pg (27.0-33.0); Mean Corpuscular Volume 90.7 fL (80-98); Mean Platelet Volume 10.4 fL (9.4-12.4); Platelet Count 206 X10*3/uL (160-400); Red Blood Count 4.51 X10*6/uL (4.60-5.80); Red Cell Distribution Width 12.3 % (11.0-16.0); White Blood Count 8.1 X10*3/uL (4.8-10.8)
[2020-09-07 10:04] LABS: Glucose Urine UA NEG (NEG); Leukocyte Esterase Urine NEG (NEG); Nitrite Urine NEG (NEG); PH 5.5 (5.0-8.0); Urine Blood NEG (NEG); Urine Ketones NEG (NEG); Urine Protein NEG (NEG-TRACE)
[2020-09-07 10:07] LABS: Appearance Urine CLEAR; Color Urine YELLOW
[2020-09-07 10:14] LABS: RBC Urine 0 /HPF (0)
[2020-09-07 10:24] LABS: Alanine Aminotransferase 24 U/L (0-40); Albumin Level 3.8 g/dL (3.5-5.0); Alkaline Phosphatase 77 U/L (39-117); Anion Gap 11 (12-20); Aspartate Amino Transferase 18 U/L (5-37); Bilirubin Direct 0.2 mg/dL (0.0-0.5); Bilirubin Total 0.3 mg/dL (0.0-1.0); Blood Urea Nitrogen 15 mg/dL (9-16); Calcium 8.7 mg/dL (8.4-10.2); Carbon Dioxide 24 mmol/L (22-29); Chloride 109 mmol/L (96-108); Estimated Glomerular Filt Rate > 60; Glucose Fasting 111 mg/dL (60-99); Potassium 4.1 mmol/l (3.3-5.1); Sodium 140 mmol/L (135-145); Total Protein 5.9 g/dL (6.5-8.0)
== END 2020-09-07 08:29 | disposition home or self-care (01) ==
LOC: HO.LAB 08:28
PROVIDERS: Urology; PCP Internal Medicine; Visit Provider Internal Medicine
DX: N39.0 Urinary tract infection, site not specified (principal); R30.0 Dysuria
CPT/HCPCS: 36415; 80048; 80076; 81001; 85027

== ENCOUNTER 2020-09-18 08:40 | Outpatient (REF) | payer MEDICARE, OTHER, SELFPAY | END 2020-09-18 08:41 | disposition home or self-care (01) | LOC: HO.LAB 08:40 | PROVIDERS: PCP Internal Medicine; Visit Provider Urology | DX: N39.0 Urinary tract infection, site not specified (principal) | CPT/HCPCS: 87086 ==

== ENCOUNTER 2020-09-29 14:29 | Inpatient (IN) | payer MEDICARE, OTHER, SELFPAY ==
--- NOTE | 2020-09-29 15:08 | ED.MALEGU ---
HPI - Male Genitourinary General Chief complaint: Urogenital-Male Stated complaint: urinary problem Time Seen by Provider: 09/29/20 15:03 Source: patient and old records reviewed Mode of arrival: ambulatory Limitations: no limitations History of Present Illness HPI Narrative: hx of same in the past MD Complaint: other (urinary retention) Onset (ago): day(s) (last night) Duration: progressively worsening Location: penis Severity: moderate Relieving factors: none Exacerbating factors: none Associated symptoms: Reports urinary retention Related Data Home Medications Medication Instructions Recorded Confirmed isosorbide mononitrate 30 mg 30 mg PO DAILY 08/06/20 08/27/20 tablet,extended release 24 hr lisinopril 5 mg tablet 5 mg PO DAILY 08/06/20 08/27/20 tamsulosin 0.4 mg capsule 0.4 mg PO DAILY 08/06/20 08/27/20 Previous Rx's Medication Instructions Recorded aspirin 81 mg tablet,delayed 81 mg PO DAILY #90 tab 08/06/20 release rosuvastatin 10 mg tablet 10 mg PO DAILY #90 tab 08/06/20 ertapenem [Invanz] 1 g IV DAILY@1600 #12 ea 08/31/20 sennosides [Senna Lax] 17.2 mg PO DAILY #30 tab 08/31/20 metoprolol tartrate 25 mg tablet 25 mg PO BID #180 tab 09/23/20 Allergies Allergy/AdvReac Type Severity Reaction Status Date / Time diphenhydramine AdvReac Intermediate Hallucinati Verified 09/29/20 15:38 [From Tereza] ons Review of Systems Review of Systems: Constitutional : No Fever, No Chills ENT/Mouth : No sore throat Eyes: No Eye Pain, No Swelling, No Redness Cardiovascular : No Chest Pain, No SOB Respiratory : No Cough, No Sputum, No Wheezing Gastrointestinal : positive Nausea, no Vomiting, No Diarrhea, positive abdominal pain Genitourinary : positive Dysuria, no urinary frequency, positive Hematuria, no Flank Pain, positive hesitancy cannot fully void Musculoskeletal : No joint pain, No Myalgias Skin : No Skin Lesions, No rash Neuro : No Weakness, No Numbness, No Headache Psych : No Anxiety/Panic, No Depression Heme/Lymph: No Bruising, No Lymphadenopathy Endocrine : No Polyuria, No Polydipsia All other systems reviewed and are negative [facility] Past Medical History Attestation statement: The following information was validated with the patient. Medical History Abnormal myocardial perfusion study Atherosclerotic cardiovascular disease Colon cancer Essential hypertension Hyperlipidemia, unspecified Prostate cancer Surgical History History of appendectomy History of bladder surgery (~01/04/18) History of colectomy History of prostate surgery (~2016) Family History Family History Father Pancreatic cancer Mother No problems noted. Brother Liver cancer Social History Social History Household Members: Spouse Housing: House Alcohol intake: unknown Smoking Status: Unknown if ever smoked Advance Directives: No Advance Directives Information Provided: No service: Yes Current occupational status: retired Physical Exam Vital Signs: Vital Signs: Last Vital Signs Temp 98.9 F 09/29/20 15:36 Pulse 67 09/29/20 15:36 Resp 16 09/29/20 15:36 BP 113/46 L 09/29/20 15:36 Pulse Ox 99 09/29/20 15:36 Body Mass Index 23.7 Appearance: Alert. Oriented X3. No acute distress. Eyes: Pupils equal, round and reactive to light. ENT: Pharynx normal. Neck: Normal inspection. Neck supple. CVS: Normal heart rate and rhythm. Pulses normal. Respiratory: No respiratory distress. Breath sounds normal. Abdomen: Soft and distended with suprapubic pain Skin: Skin warm and dry. Normal skin color. Normal skin turgor. Extremities: No lower extremity edema. No calf ttp Neuro: Oriented X 3. No motor deficit. No sensory deficit. Course Course Course Narrative: unable to place cath can void but only 200cc cannot place 16fr coude, 14 and 12fr unsuccessful I get urine but meet resistant and robert comes out back in july was on IV Ertapenem for Proteus species - on PICC line treatment for [address] Hein aware to come to ED to see patient signed out to [facility] [employer] [facility] for Urology and labs MDM - Male Genitourinary MDM Narrative Medical decision making narrative: 85 yo male with hx of robert prior prostate issues at this time given retention will need labs, urine, robert placement Discharge Plan Discharge Clinical Impression: Acute retention of urine Prescriptions: No Action metoprolol tartrate 25 mg tablet 25 mg PO BID Qty: 180 RF: 2 ertapenem [Invanz] 1 gram Recon Soln 1 g IV DAILY@1600 Qty: 12 RF: 0 sennosides [Senna Lax] 8.6 mg Tablet 17.2 mg PO DAILY Qty: 30 RF: 0 lisinopril 5 mg tablet 5 mg PO DAILY RF: 0 isosorbide mononitrate 30 mg tablet extended release 24 hr 30 mg PO DAILY RF: 0 tamsulosin 0.4 mg capsule 0.4 mg PO DAILY RF: 0 rosuvastatin [Crestor] 10 mg tablet 10 mg PO DAILY Qty: 90 RF: 4 aspirin [Enteric Coated Aspirin] 81 mg tablet,delayed release (DR/EC) 81 mg PO DAILY Qty: 90 RF: 4
[2020-09-29 15:36] VITALS: BP 113/46; PULSE 67; RESP 16; TEMP 37.2; O2SAT 99; BMI 23.7
[2020-09-29] MEDS: Lidocaine HCl 2 % Urojet 10 ML JEL.PF.APP TOPICAL ×3 (16:00)
[2020-09-29 16:25] LABS: MANUAL DIFF FLAG NO
[2020-09-29 16:30] LABS: Basophils Percent Auto 0.3 % (0-2); Eosinophils Absolute Auto 0.1 X10*3/uL (0.0-0.4); Eosinophils Percent Auto 1.3 % (0-4); Hematocrit 44.1 % (42-52); Hemoglobin 14.9 g/dl (14.0-18.0); Imm Gran Abs Auto 0.05 X10*3/uL (0.00-0.03); Imm Gran Pct Auto 0.5 % (0.0-0.4); Lymphocytes Absolute Auto 1.9 X10*3/uL (1.2-4.9); Lymphocytes Percent Auto 20.5 % (20-40); Mean Corpuscular HGB Conc 33.8 g/dl (31.0-36.0); Mean Corpuscular Hemoglobin 30.2 pg (27.0-33.0); Mean Corpuscular Volume 89.3 fL (80-98); Mean Platelet Volume 9.9 fL (9.4-12.4); Monocytes Absolute Auto 0.2 X10*3/uL (0.1-1.2); Neutrophils Absolute Auto 6.9 X10*3/uL (2.0-8.3); Neutrophils Percent Auto 75.4 % (45-73); Platelet Count 234 X10*3/uL (160-400); Red Blood Count 4.94 X10*6/uL (4.60-5.80); Red Cell Distribution Width 12.2 % (11.0-16.0); White Blood Count 9.1 X10*3/uL (4.8-10.8)
[2020-09-29 16:32] LABS: Glucose Urine UA NEG (NEG); Leukocyte Esterase Urine 3+ (NEG); Nitrite Urine POS (NEG); Urine Blood 3+ (NEG); Urine Ketones NEG (NEG); Urine Protein 1+ MG/DL (NEG-TRACE)
[2020-09-29 16:35] LABS: Appearance Urine HAZY; Color Urine AMBER
[2020-09-29 16:52] LABS: Lactic Acid 1.7 mmol/L (0.5-2.0)
[2020-09-29 16:54] LABS: WBC Urine TNTC /HPF (0-4)
[2020-09-29 16:55] LABS: Amorphous Sediment Urine 1+ /LPF; Bacteria Urine TRACE /LPF; RBC Urine 50-75 /HPF (0); Squamous Epithelial Cell Urine TRACE /LPF
[2020-09-29 16:57] LABS: Anion Gap 14 (12-20); Blood Urea Nitrogen 16 mg/dL (9-16); Calcium 9.2 mg/dL (8.4-10.2); Carbon Dioxide 23 mmol/L (22-29); Chloride 105 mmol/L (96-108); Creatinine Clr Calc Pharmacy 65.2; Estimated Glomerular Filt Rate > 60; Glucose Random 110 mg/dL (60-115); Potassium 4.3 mmol/l (3.3-5.1); Sodium 138 mmol/L (135-145)
--- NOTE | 2020-09-29 17:15 | PM.UROCN ---
History of Present Illness Consult details Consult date: 09/29/20 Narrative: Patient well known to Urology Prior prostate cancer with treatment for radiation and incision of bladder neck contracture Re-presented with question of UTI Is an evaluation for sirs On bladder ultrasound has 250 cc residual. Has been unable to empty. Does urinate but leaves high residual which appears to be grossly infected. ER staff unable to pass Fam catheter In emergency room initial attempts to pass Glidewire. Glidewire unable to pass with rebound. Flexible cystoscopy performed. Stricture bladder neck found. Glidewire passed around stricture. Stricture dilated at bedside to 16 [place] Fourteen Sur[place]amese Fam catheter placed over wire into bladder Grossly infected urine removed Being admitted to Medicine. Will follow. Review of Systems Review of Systems: Yes all other systems are reviewed and are negative PMFSH Past Medical History Medical History Abnormal myocardial perfusion study Atherosclerotic cardiovascular disease Colon cancer Essential hypertension Hyperlipidemia, unspecified Prostate cancer Family History Family History Father Pancreatic cancer Mother No problems noted. Brother Liver cancer Surgical History Surgical History History of appendectomy History of bladder surgery (~01/04/18) History of colectomy History of prostate surgery (~2016) Social History Social History Household Members: Spouse Housing: House Alcohol intake: unknown Smoking Status: Unknown if ever smoked Advance Directives: No Advance Directives Information Provided: No service: Yes Current occupational status: retired Meds Allergies Allergy/AdvReac Type Severity Reaction Status Date / Time diphenhydramine AdvReac Intermediate Hallucinati Verified 09/29/20 15:38 [From Benalyxl] ons Home Medications Medication Instructions Recorded Confirmed Type isosorbide mononitrate 30 mg 30 mg PO DAILY 08/06/20 08/27/20 History tablet,extended release 24 hr lisinopril 5 mg tablet 5 mg PO DAILY 08/06/20 08/27/20 History tamsulosin 0.4 mg capsule 0.4 mg PO DAILY 08/06/20 08/27/20 History Physical Exam Vital Signs: Vital Signs: Last Vital Signs Temp 98.9 F 09/29/20 15:36 Pulse 67 09/29/20 15:36 Resp 16 09/29/20 15:36 BP 113/46 L 09/29/20 15:36 Pulse Ox 99 09/29/20 15:36 Body Mass Index 23.7 Const: General: cooperative, healthy appearing, comfortable and no acute distress Nutritional Appearance: average body habitus Orientation/consciousness: oriented to person, oriented to place and oriented to time Eyes: General: appearance normal, both eyes and all related structures Chest: Chest palpation & inspection: normal inspection of the chest Resp: Effort & Inspection: normal respiratory effort Cardio: Rate: regular rate GI: Inspection: Yes normal to inspection Skin: Hair: normal Neuro: General: oriented to person, oriented to place and oriented to time Extrem: General: Yes normal to inspection Results Labs Result diagrams: 09/29/20 16:15 09/29/20 16:14 Labs: Abnormal lab results 09/29/20 09/29/20 Range/Units 16:15 16:15 Immature Gran % (Auto) 0.5 H (0.0-0.4) % Neut % (Auto) 75.4 H (45-73) % Abs Immat Gran (auto) 0.05 H (0.00-0.03) X10*3/uL Urine Protein 1+ H (NEG-TRACE) MG/DL Urine Blood 3+ H (NEG) Urine Nitrite POS H (NEG) Ur Leukocyte Esterase 3+ H (NEG) Urine RBC 50-75 H (0) /HPF Urine WBC TNTC H (0-4) /HPF Short CBC 09/29/20 Range/Units 16:15 WBC 9.1 (4.8-10.8) X10*3/uL Hgb 14.9 (14.0-18.0) g/dl Hct 44.1 (42-52) % Plt Count 234 (160-400) X10*3/uL BMP 09/29/20 16:14 Sodium 138 Potassium 4.3 Chloride 105 Carbon Dioxide 23 BUN 16 Creatinine 0.98 Calcium 9.2 Urine 09/29/20 Range/Units 16:15 Urine Color LUNA Urine Appearance HAZY Urine pH 6.0 (5.0-8.0) Ur Specific [place] 1.010 (1.005-1.025) Urine Protein 1+ H (NEG-TRACE) MG/DL Urine Glucose (UA) NEG (NEG) MG/DL All other labs normal. Assessment and Plan (1) Acute retention of urine: Status: Acute (2) Urinary tract infection: Status: Acute Leave Fam catheter in place Will discuss options with patient during hospital admission Procedures Catheter Insertion (Urinary) Date of insertion: 09/29/20 Replacement of catheter present on admission: No Reason for placing: Acute urinary retention Patient has the following: other (Bladder neck stricture) Bladder scan/ultrasound used before catheterization: Yes Estimated amount of urine (mLs): 250 Topical anesthesia used: Yes Catheter type/location: Urethral Catheter balloon size (mL): 10 Complications: ER. Unable to pass. Required cystoscopy with dilatation.
[2020-09-29] MEDS: Ertapenem Sodium 1 GM in 0.9 % Sodium Chloride 50 ML IV (17:40)
--- NOTE | 2020-09-29 17:50 | PC.NURSE ---
boris daughter [phone]
--- NOTE | 2020-09-29 18:00 | PC.NURSE ---
MULTIPLE ATTEMPTS MADE TO CATH PT, UNSUCCESSFUL. MD TINAJERO IN TO ASSIST, SUCCESSFUL PLACEMENT OF #14, WITH DARK BRICK COLOURED URINE, WITH SEDIMENT. ALL SPECIMENS COLLECTED. ABT HUNG ORDERED.
[2020-09-29 18:51] VITALS: BP 119/63; PULSE 100; RESP 16; TEMP 37.2; O2SAT 95
--- NOTE | 2020-09-29 19:10 | PC.NURSE ---
ASSUMED CARE OF PT. PT RESTING IN STRETCHER. PT DENIES ANY COMPLAINTS. PT ALERT, RESPIRATIONS EASY, N/L. PT IN NAD.
[2020-09-29 19:59] LABS: COVID-19 Test Negative (Negative)
--- NOTE | 2020-09-29 20:29 | PC.NURSE ---
PT IS C/O NO ONE IS TELLING ME WHATS GOING ON . PT REASSURED HE WILL BE STAYING TONIGHT IN THE HOSPITAL PT GIVEN A PHONE TO USE TO UPDATE FAMILY. PT IS REPOSITIONED AND GIVEN A PILLOW AND WARM BLANKET FOR COMFORT. PT IS C/O LOWER ABD PAIN. PA AWARE OF PAIN. LUNA CATH DRAINING DARK COLORED URINE IN LUNA BAG APPROX 300ML. PT AWAITING FOR FURTHER ADMISSION ORDERS. WILL CONTINUE TO MONITOR PT.
--- NOTE | 2020-09-29 21:27 | P.HPHOSP_ITS ---
History of Present Illness Date of Service: 09/29/20 Chief Complaint: urinary retention 85 y/o male who presented from a alf due to urinary retention. Per history provided by the patient, for the past 2 days has been having a hard time getting urine out , today was unable to do so for what decided to present to the ED. Patient has a hx or urinary retention in the past requiring catheterization. On 08/28/20 was found to have a UTI that was MDRO, sensitive to ertapenem. Patient was started on ertapenem for a total course of 14 days per ID recs and discharged. Today upon presentation to the ED patient was evaluated per Urology Dr Hein for robert placing and upon insertion urine was noted to be very cloudy concerning for UTI and possibly requiring again ertapenem treatment based on previous sensitivities in the past for what decision for admission was given to medicine. Patient seen and examined at the bedside, laying down in bed in no acute distress. ROS as above otherwise negative. Physical exam positive for robert and dark blood coming out to robert bag with clots. CBI to be placed now. PMHX: Abnormal myocardial perfusion study Atherosclerotic cardiovascular disease Colon cancer Essential hypertension Hyperlipidemia, unspecified Prostate cancer PSx: History of appendectomy History of bladder surgery (~01/04/18) History of colectomy History of prostate surgery (~2016) Toxic habits: No hx of alcohol abuse, smoking or IVDA Review of Systems Genitourinary: Genitourinary: Reports oliguria and Reports other (urinary retention ) [facility] Medical History Abnormal myocardial perfusion study Atherosclerotic cardiovascular disease Colon cancer Essential hypertension Hyperlipidemia, unspecified Prostate cancer Functional capacity: independent ambulation Family History Father Pancreatic cancer Mother No problems noted. Brother Liver cancer Surgical History History of appendectomy History of bladder surgery (~01/04/18) History of colectomy History of prostate surgery (~2016) Social History Household Members: Spouse Housing: House Alcohol intake: unknown Smoking Status: Unknown if ever smoked Advance Directives: No Advance Directives Information Provided: No service: Yes Current occupational status: retired Meds Allergies Allergy/AdvReac Type Severity Reaction Status Date / Time diphenhydramine AdvReac Intermediate Hallucinati Verified 09/29/20 15:38 [From Benadryl] ons Home Medications Medication Instructions Recorded Confirmed Type isosorbide mononitrate 30 mg 30 mg PO DAILY 08/06/20 09/29/20 History tablet,extended release 24 hr lisinopril 5 mg tablet 5 mg PO DAILY 08/06/20 09/29/20 History tamsulosin 0.4 mg capsule 0.4 mg PO DAILY 08/06/20 09/29/20 History Physical Exam Vital Signs and Narrative: Vital Signs: Last Vital Signs Temp 98.9 F 09/29/20 18:51 Pulse 100 09/29/20 18:51 Resp 16 09/29/20 18:51 BP 119/63 09/29/20 18:51 Pulse Ox 95 09/29/20 18:51 Body Mass Index 23.7 Const: General: cooperative, comfortable and no acute distress Orientation/consciousness: oriented to person, oriented to place and oriented to time HENMT: Head: Yes normal to inspection Eyes: General: appearance normal, both eyes and all related structures Neck: Yes normal visual inspection Chest: Chest palpation & inspection: normal inspection of the chest Resp: Effort & Inspection: normal respiratory effort Auscultation: clear to auscultation bilaterally Cardio: Jugular venous distension: no JVD Rate: regular rate Rhythm: regular rhythm Heart sounds: S1 normal heart sound present and S2 normal heart sound present GI: Inspection: Yes normal to inspection : Male General Exam: Yes other (robert + with robert bag draining dark blood with clots ) Skin: General skin exam: no rashes or lesions noted Neuro: General: oriented to person, oriented to place and oriented to time Cognition (Neuro): normal cognition Extrem: General: Yes normal to inspection Results Labs CBC and Chem 7: 09/29/20 16:15 09/29/20 16:14 Labs: Laboratory Results - last 24 hr 09/29/20 09/29/20 09/29/20 16:14 16:14 16:15 MCV 89.3 MCH 30.2 MCHC 33.8 RDW 12.2 Plt Count 234 MPV 9.9 Immature Gran % (Auto) 0.5 H Neut % (Auto) 75.4 H Lymph % (Auto) 20.5 [place] % (Auto) 2.0 Eos % (Auto) 1.3 Baso % (Auto) 0.3 Lymph # (Auto) 1.9 [place] # (Auto) 0.2 Eos # (Auto) 0.1 Baso # (Auto) 0.0 Abs Immat Gran (auto) 0.05 H Absolute Neuts (auto) 6.9 Absolute Nucleated RBC 0.000 Nucleated RBC % (auto) 0.0 Hold Blue Top Anion Gap 14 Estim Creat Clear Calc 65.2 Estimated GFR > 60 Random Glucose 110 Lactic Acid 1.7 Calcium 9.2 Urine Color Urine Appearance Urine pH Ur Specific [place] Urine Protein Urine Glucose (UA) Urine Ketones Urine Blood Urine Nitrite Ur Leukocyte Esterase Urine RBC Urine WBC Ur Squamous Epith Cells Amorphous Sediment Urine Bacteria COVID-19 ([facility]) COVID-[address] 09/29/20 09/29/20 09/29/20 16:15 16:15 19:07 MCV MCH MCHC RDW Plt Count MPV Immature Gran % (Auto) Neut % (Auto) Lymph % (Auto) [place] % (Auto) Eos % (Auto) Baso % (Auto) Lymph # (Auto) [place] # (Auto) Eos # (Auto) Baso # (Auto) Abs Immat Gran (auto) Absolute Neuts (auto) Absolute Nucleated RBC Nucleated RBC % (auto) Hold Blue Top SEE NOTE Anion Gap Estim Creat Clear Calc Estimated GFR Random Glucose Lactic Acid Calcium Urine Color LUNA Urine Appearance HAZY Urine pH 6.0 Ur Specific [place] 1.010 Urine Protein 1+ H Urine Glucose (UA) NEG Urine Ketones NEG Urine Blood 3+ H Urine Nitrite POS H Ur Leukocyte Esterase 3+ H Urine RBC 50-75 H Urine WBC TNTC H Ur Squamous Epith Cells TRACE Amorphous Sediment 1+ Urine Bacteria TRACE COVID-19 ([facility]) Negative COVID-19 Clin Com See Note Assessment and Plan (1) UTI (urinary tract infection): Status: Acute Robert inserted per Urology draining dark blood with clots CBI to be placed now Ertapenem started 1 g Q 24 hr per previous sensitivities in the past Follow up Bcx and Ucx Picc line insertion in the am if required ID consult in the am Urology Dr Hein for management (2) BPH (benign prostatic hyperplasia): Status: Acute continue with flomax home dose (3) Essential hypertension: Status: Acute Hx of CAD continue with aspirin home dose continue with isosorbide home dose continue with lisinopril home dose continue with metoprolol home dose (4) Hyperlipidemia, unspecified: Qualifiers: Hyperlipidemia type: unspecified Qualified Code(s): E78.5 - Hyperlipidemia, unspecified Status: Acute continue with statin home dose (5) Constipation: Status: Acute continue with senna home dose
[2020-09-29 22:00] VITALS: BP 112/79; PULSE 89; RESP 16; O2SAT 97
--- NOTE | 2020-09-29 22:58 | PC.NURSE ---
LUNA CATH FLUSHED X 3 WITH 50ML OF NS FLUSH AND INSTILLED AND RETURN WAS CLEAR RETURN. NEW LUNA BAG ATTACHED. DR. GALLARDO AWARE. EMPTIED 800 ML OF RED TINGED URINE FROM PREVIOUS URINAL.
[2020-09-30] VITALS (13 sets, daily range): BP systolic 100–161; BP diastolic 58–90; PULSE 72–126; RESP 16–19; TEMP 36.4–37.2; O2SAT 95–99
--- NOTE | 2020-09-30 03:15 | PC.NURSE ---
LUNA DRAINING CLEAR YELLOW URINE IN LUNA BAG. PT RESTING IN STRETCHER, DENIES ANY COMPLAINTS AT THIS TIME. WILL CONTINUE TO MONITOR PT.
[2020-09-30] MEDS: 0.9 % Sodium Chloride Flush 3 ML SYRINGE IVFLUSH ×2 (07:36→15:00)
[2020-09-30] MEDS: Isosorbide Mononitrate 30 MG TAB.ER.24H PO (08:40)
[2020-09-30] MEDS: Atorvastatin Calcium 40 MG TABLET PO (08:40)
[2020-09-30] MEDS: Metoprolol Tartrate 25 MG TABLET PO ×2 (08:41→21:17)
[2020-09-30] MEDS: Sennosides 8.6 MG TABLET 17.2 MG PO (08:41)
[2020-09-30] MEDS: Aspirin Enteric Coated 81 MG TABLET.DR PO (08:41)
[2020-09-30] MEDS: lisinopriL 5 MG TABLET PO (08:42)
[2020-09-30 09:52] LABS: Basophils Percent Auto 0.3 % (0-2); Eosinophils Percent Auto 0.2 % (0-4); Hematocrit 44.4 % (42-52); Hemoglobin 14.8 g/dl (14.0-18.0); Imm Gran Abs Auto 0.03 X10*3/uL (0.00-0.03); Imm Gran Pct Auto 0.3 % (0.0-0.4); Lymphocytes Absolute Auto 1.5 X10*3/uL (1.2-4.9); MANUAL DIFF FLAG NO; Mean Corpuscular HGB Conc 33.3 g/dl (31.0-36.0); Mean Corpuscular Hemoglobin 29.7 pg (27.0-33.0); Mean Platelet Volume 10.5 fL (9.4-12.4); Monocytes Absolute Auto 0.5 X10*3/uL (0.1-1.2); Monocytes Percent Auto 5.4 % (2-11); Neutrophils Absolute Auto 7.2 X10*3/uL (2.0-8.3); Neutrophils Percent Auto 77.8 % (45-73); Platelet Count 205 X10*3/uL (160-400); Red Blood Count 4.99 X10*6/uL (4.60-5.80); Red Cell Distribution Width 12.5 % (11.0-16.0); White Blood Count 9.3 X10*3/uL (4.8-10.8)
[2020-09-30 10:13] LABS: Anion Gap 14 (12-20); Blood Urea Nitrogen 19 mg/dL (9-16); Calcium 8.6 mg/dL (8.4-10.2); Carbon Dioxide 25 mmol/L (22-29); Chloride 104 mmol/L (96-108); Creatinine Clr Calc Pharmacy 60.3; Estimated Glomerular Filt Rate > 60; Glucose Random 179 mg/dL (60-115); Potassium 4.5 mmol/l (3.3-5.1); Sodium 138 mmol/L (135-145)
--- NOTE | 2020-09-30 10:49 | PC.NURSE ---
Addendum entered by Mi Lancaster RN 09/30/20 10:55: DR. RUSSELL INTO SEE PATIENT Original Note: TIGER TEXTED DR. RUSSELL WITH RESULTS OF THE 2 OUT OF 2 POSITIVE BLOOD CULTURES GRAM NEGATIVE RODS.
--- NOTE | 2020-09-30 11:39 | PC.NURSE ---
PT came from ED with robert placed by Dr. Hein, robert draining yellow urine. Order for CBI placed by Sharad, Dr. Hein contacted to verify if CBI was needed. Dr. Hein stated no need for CBI.
--- NOTE | 2020-09-30 13:08 | P.PNIM_ITS ---
Subjective Subjective Date of Service: 09/30/20 Interval History: patient seen and examined at bedside patient reported weakness Genitourinary Genitourinary: Reports oliguria and Reports other (urinary retention ) Physical Exam Vital Signs: Vital Signs: Last Vital Signs Temp 98.5 F 09/30/20 11:27 Pulse 98 09/30/20 11:27 Resp 18 09/30/20 11:27 BP 102/61 09/30/20 11:27 Pulse Ox 96 09/30/20 11:27 Body Mass Index 23.7 Const: General: cooperative, comfortable and no acute distress Orientation/consciousness: oriented to person, oriented to place and oriented to time HENMT: Head: Yes normal to inspection Eyes: General: appearance normal, both eyes and all related structures Neck: Neck: Yes normal visual inspection Chest: Chest palpation & inspection: normal inspection of the chest Resp: Effort & Inspection: normal respiratory effort Auscultation: clear to auscultation bilaterally Cardio: Jugular venous distension: no JVD Rate: regular rate Rhythm: regular rhythm Heart sounds: S1 normal heart sound present and S2 normal heart sound present GI: Inspection: Yes normal to inspection : Male General Exam: Yes other (robert + with robert bag draining dark blood with clots ) Skin: General skin exam: no rashes or lesions noted Neuro: General: oriented to person, oriented to place and oriented to time Cognition (Neuro): normal cognition Extrem: General: Yes normal to inspection Objective Data Current Medications Generic Name Dose Route Start Last Admin Trade Name Freq PRN Reason Stop Dose Admin Aspirin 81 mg 09/30/20 09:00 09/30/20 08:41 Aspirin Enteric Coated 81 Mg Tablet. PO 81 mg DAILY KRISTINE Administration Atorvastatin Calcium 40 mg 09/30/20 09:00 09/30/20 08:40 Atorvastatin Calcium 40 Mg Tablet PO 40 mg DAILY KRISTINE Administration Ertapenem 1 gm/ Sodium 50 mls @ 100 mls/hr 09/30/20 17:00 Chloride IV Q24H [facility] Isosorbide Mononitrate 30 mg 09/30/20 09:00 09/30/20 08:40 Isosorbide Mononitrate 30 Mg Tab.Er.24h PO 30 mg DAILY KRISTINE Administration Protocol Lisinopril 5 mg 09/30/20 09:00 09/30/20 08:42 Lisinopril 5 Mg Tablet PO 5 mg DAILY KRISTINE Administration Protocol Metoprolol Tartrate 25 mg 09/29/20 21:00 09/30/20 08:41 Metoprolol Tartrate 25 Mg Tablet PO 25 mg BID [facility] Administration Protocol Pharmacy Consult 1 each 09/29/20 17:09 Consult Rx Perform Med Rec MISCELLANE ONCE PRN Consult order Senna 17.2 mg 09/30/20 09:00 09/30/20 08:41 Sennosides 8.6 Mg Tablet PO 17.2 mg DAILY KRISTINE Administration Sodium Chloride 3 ml 09/30/20 05:31 09/30/20 07:36 0.9 % Sodium Chloride Flush 3 Ml Syringe IVFLUSH 3 ml QSHIFT [facility] Administration Tamsulosin HCl 0.4 mg 09/30/20 09:00 09/30/20 08:42 Tamsulosin Hcl 0.4 Mg Capsule PO Not Given DAILY [facility] Labs CBC & Chem 7: 09/30/20 08:52 09/30/20 08:52 Microbiology Microbiology Results: Microbiology 09/29/20 Unknown Urine clean catch - Clean Catch Midstream Urine Culture - Preliminary Gram negative jimmie 09/29/20 16:32 Blood - Venous Blood Culture - Preliminary 09/29/20 16:14 Blood - Venous Blood Culture - Preliminary Assessment and Plan (1) UTI (urinary tract infection): Status: Acute (2) BPH (benign prostatic hyperplasia): Status: Acute (3) Essential hypertension: Status: Acute (4) Hyperlipidemia, unspecified: Status: Acute (5) Constipation: Status: Acute Assessment and Plan: UTI patient was recently admitted with ESBL UTI and recently finished ertapenem continue ertapenem blood culture growing Gram-negative jimmie follow-up blood and urine cultures id consult pending Urinary retention Robert inserted per Urology continue Flomax Mild hematuria on admission resolving monitor H&H Hx of CAD continue with aspirin continue with isosorbide continue with lisinopril continue with metoprolol continue with statin continue with senna DVT prophylaxis compression device
--- NOTE | 2020-09-30 14:42 | MHC.CM.PN ---
Met with pt. Very pleasant. 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 Has used [facility] in the past and recently used [facility]. Referrals placed. IMM reviewed and signed. Has HCP, Lisa( [phone])and it is on file.D/C plan is home with services
--- NOTE | 2020-09-30 14:47 | P.CNID_ITS ---
History of Present Illness Data of Consult Service Date: 09/30/20 Requesting physician: Aakash Higginbotham Primary Care Provider: MD MANDA Guillory Reason for consult: urinary retention,pyuria He presents to hospital with acute retention of urine Dr Angel Luis coleman Fam in ER He has no fever or chills or leukocytosis just retention Urine culture gram negative rods He is unable to describe any symptoms Review of Systems Review of Systems: Yes all other systems are reviewed and are negative Neurologic: Reports confusion Psychiatric: Psychiatric: Reports confusion [facility] Past Medical History Medical History Abnormal myocardial perfusion study Atherosclerotic cardiovascular disease Colon cancer Essential hypertension Hyperlipidemia, unspecified Prostate cancer Functional capacity: independent ambulation Family History Family History Father Pancreatic cancer Mother No problems noted. Brother Liver cancer Surgical History Surgical History History of appendectomy History of bladder surgery (~01/04/18) History of colectomy History of prostate surgery (~2016) Social History Social History Household Members: Spouse Housing: House Alcohol intake: unknown Smoking Status: Unknown if ever smoked Currently Displaying Signs/Symptoms of Drug Intoxication Withdrawal: No Advance Directives: No Advance Directives Information Provided: No Do you have thoughts of harming others: None Do you have a plan to hurt others: No Plan service: Yes ([employer]) Current occupational status: retired Meds Allergies Allergy/AdvReac Type Severity Reaction Status Date / Time diphenhydramine AdvReac Intermediate Hallucinati Verified 09/29/20 15:38 [From Benadryl] ons Home Medications Medication Instructions Recorded Confirmed Type isosorbide mononitrate 30 mg 30 mg PO DAILY 08/06/20 09/29/20 History tablet,extended release 24 hr lisinopril 5 mg tablet 5 mg PO DAILY 08/06/20 09/29/20 History tamsulosin 0.4 mg capsule 0.4 mg PO DAILY 08/06/20 09/29/20 History Physical Exam Vital Signs: Vital Signs: Last Vital Signs Temp 98.5 F 09/30/20 11:27 Pulse 98 09/30/20 11:27 Resp 18 09/30/20 11:27 BP 102/61 09/30/20 11:27 Pulse Ox 96 09/30/20 11:27 Body Mass Index 23.7 Const: General: cooperative and confusion Orientation/consciousness: confusion HENMT: Head: Yes normal to inspection Eyes: General: appearance normal, both eyes and all related structures Resp: Effort & Inspection: normal respiratory effort Cardio: Rate: regular rate Rhythm: regular rhythm GI: Inspection: Yes normal to inspection Palpation (GI): nontender : General: Yes no CVA tenderness Back/Spine/Pelvis: Back: no CVA tenderness Thoracic/Lumbar Spine: thoracic and lumbar spine normal to inspection Skin: General skin exam: no rashes or lesions noted Neuro: General: confusion Extrem: General: Yes normal to inspection Assessment and Plan (1) Acute retention of urine: Status: Acute (2) UTI (urinary tract infection): Problem details: There is concern over urinary tract infection He has gram negative rods He has had ESBL Proteus over a month ago in blood and received 14 days IV Ertapenem Status: Acute Would continue Ertapenem Await final blood cultures F/U Urology treat BPH (3) BPH (benign prostatic hyperplasia): Status: Acute Results Labs CBC & Chem 7: 09/30/20 08:52 09/30/20 08:52 Labs: Short CBC 09/29/20 09/30/20 Range/Units 16:15 08:52 WBC 9.1 9.3 (4.8-10.8) X10*3/uL Hgb 14.9 14.8 (14.0-18.0) g/dl Hct 44.1 44.4 (42-52) % Plt Count 234 205 (160-400) X10*3/uL BMP 09/29/20 09/30/20 16:14 08:52 Sodium 138 138 Potassium 4.3 4.5 Chloride 105 104 Carbon Dioxide 23 25 BUN 16 19 H Creatinine 0.98 1.06 Calcium 9.2 8.6 D Urine 09/29/20 Range/Units 16:15 Urine Color LUNA Urine Appearance HAZY Urine pH 6.0 (5.0-8.0) Ur Specific [place] 1.010 (1.005-1.025) Urine Protein 1+ H (NEG-TRACE) MG/DL Urine Glucose (UA) NEG (NEG) MG/DL Microbiology Microbiology Results: Microbiology 09/29/20 Unknown Urine clean catch - Clean Catch Midstream Urine Culture - Preliminary Gram negative jimmie 09/29/20 16:32 Blood - Venous Blood Culture - Preliminary 09/29/20 16:14 Blood - Venous Blood Culture - Preliminary
[2020-09-30] MEDS: Ertapenem Sodium 1 GM in 0.9 % Sodium Chloride 50 ML IV (16:49)
[2020-10-01] VITALS (8 sets, daily range): BP systolic 115–147; BP diastolic 52–78; PULSE 74–84; RESP 16–20; TEMP 36.7–37.4; O2SAT 94–96
[2020-10-01] MEDS: 0.9 % Sodium Chloride Flush 3 ML SYRINGE IVFLUSH ×4 (00:14→21:51)
[2020-10-01] MEDS: Atorvastatin Calcium 40 MG TABLET PO (09:07)
[2020-10-01] MEDS: lisinopriL 5 MG TABLET PO (09:07)
[2020-10-01] MEDS: Metoprolol Tartrate 25 MG TABLET PO ×2 (09:08→21:50)
[2020-10-01] MEDS: Sennosides 8.6 MG TABLET 17.2 MG PO (09:08)
[2020-10-01] MEDS: Isosorbide Mononitrate 30 MG TAB.ER.24H PO (09:08)
[2020-10-01] MEDS: Aspirin Enteric Coated 81 MG TABLET.DR PO (09:08)
--- NOTE | 2020-10-01 12:19 | P.PNIM_ITS ---
Subjective Subjective Date of Service: 10/01/20 Interval History: Patient seen and examined at bedside patient reported weakness and urinary retention Genitourinary Genitourinary: Reports other (urinary retention ) Physical Exam Vital Signs: Vital Signs: Last Vital Signs Temp 98.3 F 10/01/20 12:00 Pulse 74 10/01/20 12:00 Resp 20 10/01/20 12:00 BP 120/52 L 10/01/20 12:00 Pulse Ox 96 10/01/20 12:00 Body Mass Index 23.7 Const: General: cooperative, comfortable and no acute distress Orientation/consciousness: oriented to person, oriented to place and oriented to time HENMT: Head: Yes normal to inspection Eyes: General: appearance normal, both eyes and all related structures Neck: Neck: Yes normal visual inspection Chest: Chest palpation & inspection: normal inspection of the chest Resp: Effort & Inspection: normal respiratory effort Auscultation: clear to auscultation bilaterally Cardio: Jugular venous distension: no JVD Rate: regular rate Rhythm: regular rhythm Heart sounds: S1 normal heart sound present and S2 normal heart sound present GI: Inspection: Yes normal to inspection : Male General Exam: Yes other (robert + with robert bag draining dark blood with clots ) Skin: General skin exam: no rashes or lesions noted Neuro: General: oriented to person, oriented to place and oriented to time Cognition (Neuro): normal cognition Extrem: General: Yes normal to inspection Objective Data Current Medications Generic Name Dose Route Start Last Admin Trade Name Freq PRN Reason Stop Dose Admin Aspirin 81 mg 09/30/20 09:00 10/01/20 09:08 Aspirin Enteric Coated 81 Mg Tablet. PO 81 mg DAILY [facility] Administration Atorvastatin Calcium 40 mg 09/30/20 09:00 10/01/20 09:07 Atorvastatin Calcium 40 Mg Tablet PO 40 mg DAILY [facility] Administration Ertapenem 1 gm/ Sodium 50 mls @ 100 mls/hr 09/30/20 17:00 09/30/20 17:20 Chloride IV Infused Q24H KRISTINE Infusion Isosorbide Mononitrate 30 mg 09/30/20 09:00 10/01/20 09:08 Isosorbide Mononitrate 30 Mg Tab.Er.24h PO 30 mg DAILY [facility] Administration Protocol Lisinopril 5 mg 09/30/20 09:00 10/01/20 09:07 Lisinopril 5 Mg Tablet PO 5 mg DAILY [facility] Administration Protocol Metoprolol Tartrate 25 mg 09/29/20 21:00 10/01/20 09:08 Metoprolol Tartrate 25 Mg Tablet PO 25 mg BID [facility] Administration Protocol Pharmacy Consult 1 each 09/29/20 17:09 Consult Rx Perform Med Rec MISCELLANE ONCE PRN Consult order Senna 17.2 mg 09/30/20 09:00 10/01/20 09:08 Sennosides 8.6 Mg Tablet PO 17.2 mg DAILY [facility] Administration Sodium Chloride 3 ml 09/30/20 05:31 10/01/20 07:25 0.9 % Sodium Chloride Flush 3 Ml Syringe IVFLUSH 3 ml QSHIFT K[facility] Administration Tamsulosin HCl 0.4 mg 09/30/20 09:00 10/01/20 09:09 Tamsulosin Hcl 0.4 Mg Capsule PO Not Given DAILY [facility] Labs CBC & Chem 7: 09/30/20 08:52 09/30/20 08:52 Microbiology Microbiology Results: Microbiology 09/29/20 16:32 Blood - Venous Blood Culture - Preliminary Proteus species 09/29/20 16:14 Blood - Venous Blood Culture - Preliminary Proteus species 09/29/20 Unknown Urine clean catch - Clean Catch Midstream Urine Culture - Preliminary Gram negative jimmie Assessment and Plan (1) UTI (urinary tract infection): Status: Acute (2) BPH (benign prostatic hyperplasia): Status: Acute (3) Essential hypertension: Status: Acute (4) Hyperlipidemia, unspecified: Status: Acute (5) Constipation: Status: Acute Assessment and Plan: UTI patient was recently admitted with ESBL UTI and recently finished ertapenem continue ertapenem blood culture growing Gram-negative jimmie follow-up blood and urine cultures id consult pending Urinary retention Robert inserted per Urology continue Flomax will get urology follow up Mild hematuria on admission resolving nurse reported mild hematuria this morning monitor H&H Hx of CAD continue with aspirin continue with isosorbide continue with lisinopril continue with metoprolol continue with statin continue with senna DVT prophylaxis compression device given hematuria
--- NOTE | 2020-10-01 15:39 | MHC.CM.PN ---
Per MD rounds, will probably need a PICC line and manager intermediate IV antibiotics. Waiting for B.C. Pt with robert catheter. Has had IV therapy at home. Comfortable with [facility] and they are following. Referral in. No d/c yet
[2020-10-01] MEDS: Ertapenem Sodium 1 GM in 0.9 % Sodium Chloride 50 ML IV (16:20)
[2020-10-02] VITALS (9 sets, daily range): BP systolic 106–137; BP diastolic 57–94; PULSE 55–118; RESP 16–18; TEMP 36.3–37; O2SAT 94–98
[2020-10-02] MEDS: lisinopriL 5 MG TABLET PO (08:37)
[2020-10-02] MEDS: Sennosides 8.6 MG TABLET 17.2 MG PO (08:37)
[2020-10-02] MEDS: Isosorbide Mononitrate 30 MG TAB.ER.24H PO (08:37)
[2020-10-02] MEDS: 0.9 % Sodium Chloride Flush 3 ML SYRINGE IVFLUSH ×3 (08:37→20:51)
[2020-10-02] MEDS: Aspirin Enteric Coated 81 MG TABLET.DR PO (08:37)
[2020-10-02] MEDS: Metoprolol Tartrate 25 MG TABLET PO ×2 (08:37→20:49)
[2020-10-02] MEDS: Atorvastatin Calcium 40 MG TABLET PO (08:38)
--- NOTE | 2020-10-02 15:51 | MHC.CM.PN ---
Per MD rounds, pt will be here until Monday. Repeat B.C. done today. Probable PICC line on Monday. Will go home with robert catheter in place. Pt is active with [facility] and has had IV therapy at home. Very pleasant gentleman. Feeling better and looking forward to D/C home. Family to provide transportation
--- NOTE | 2020-10-02 16:05 | P.PNIM_ITS ---
Subjective Subjective Date of Service: 10/02/20 Interval History: Patient seen and examined at bedside Patient reported feeling better no hematuria Genitourinary Genitourinary: Reports other (urinary retention ) Physical Exam Vital Signs: Vital Signs: Last Vital Signs Temp 97.4 F 10/02/20 11:45 Pulse 55 10/02/20 11:45 Resp 18 10/02/20 11:45 BP 106/57 L 10/02/20 11:45 Pulse Ox 95 10/02/20 11:45 Body Mass Index 23.7 Const: General: cooperative, comfortable and no acute distress O rientation/consciousness: oriented to person, oriented to place and oriented to time HENMT: Head: Yes normal to inspection Eyes: General: appearance normal, both eyes and all related structures Neck: Neck: Yes normal visual inspection Chest: Chest palpation & inspection: normal inspection of the chest Resp: Effort & Inspection: normal respiratory effort Auscultation: clear to auscultation bilaterally Cardio: Jugular venous distension: no JVD Rate: regular rate Rhythm: regular rhythm Heart sounds: S1 normal heart sound present and S2 normal heart sound present GI: Inspection: Yes normal to inspection : Male General Exam: Yes other (robert + with robert bag draining dark blood with clots ) Skin: General skin exam: no rashes or lesions noted Neuro: General: oriented to person, oriented to place and oriented to time Cognition (Neuro): normal cognition Extrem: General: Yes normal to inspection Objective Data Current Medications Generic Name Dose Route Start Last Admin Trade Name Freq PRN Reason Stop Dose Admin Aspirin 81 mg 09/30/20 09:00 10/02/20 08:37 Aspirin Enteric Coated 81 Mg Tablet.Dr PO 81 mg DAILY KRISTINE Administration Atorvastatin Calcium 40 mg 09/30/20 09:00 10/02/20 08:38 Atorvastatin Calcium 40 Mg Tablet PO 40 mg DAILY KRISTINE Administration Ertapenem 1 gm/ Sodium 50 mls @ 100 mls/hr 09/30/20 17:00 10/01/20 16:51 Chloride IV Infused Q24H KRISTINE Infusion Isosorbide Mononitrate 30 mg 09/30/20 09:00 10/02/20 08:37 Isosorbide Mononitrate 30 Mg Tab.Er.24h PO 30 mg DAILY KRISTINE Administration Protocol Lisinopril 5 mg 09/30/20 09:00 12/04/20 08:37 Lisinopril 5 Mg Tablet PO 5 mg DAILY KRISTINE Administration Protocol Metoprolol Tartrate 25 mg 09/29/20 21:00 10/02/20 08:37 Metoprolol Tartrate 25 Mg Tablet PO 25 mg BID KRISTINE Administration Protocol Pharmacy Consult 1 each 09/29/20 17:09 Consult Rx Perform Med Rec MISCELLANE ONCE PRN Consult order Senna 17.2 mg 09/30/20 09:00 10/02/20 08:37 Sennosides 8.6 Mg Tablet PO 17.2 mg DAILY K[facility]INE Administration Sodium Chloride 3 ml 09/30/20 05:31 10/02/20 08:37 0.9 % Sodium Chloride Flush 3 Ml Syringe IVFLUSH 3 ml QSHIFT KRISTINE Administration Tamsulosin HCl 0.4 mg 09/30/20 09:00 10/02/20 08:39 Tamsulosin Hcl 0.4 Mg Capsule PO Not Given DAILY [facility] Labs CBC & Chem 7: 09/30/20 08:52 09/30/20 08:52 Microbiology Microbiology Results: Microbiology 09/29/20 16:32 Blood - Venous Blood Culture - Preliminary Proteus mirabilis 09/29/20 16:14 Blood - Venous Blood Culture - Final Proteus mirabilis 09/29/20 Unknown Urine clean catch - Clean Catch Midstream Urine Culture - Final Proteus mirabilis Assessment and Plan (1) UTI (urinary tract infection): Status: Acute (2) BPH (benign prostatic hyperplasia): Status: Acute (3) Essential hypertension: Status: Acute (4) Hyperlipidemia, unspecified: Status: Acute (5) Constipation: Status: Acute Assessment and Plan: UTI Proteus bacteremia secondary to UTI Patient was recently admitted with ESBL UTI and recently finished ertapenem continue ertapenem Blood culture growing Proteus follow-up repeat blood culture id consulted recommended continue ertapenem Urinary retention Robert inserted per Urology Mild hematuria on admission resolved H&H stable no more hematuria Hx of CAD continue with aspirin continue with isosorbide continue with lisinopril continue with metoprolol continue with statin continue with senna DVT prophylaxis compression device , Will start heparin subcu as hematuria resolved
[2020-10-02] MEDS: Heparin Sodium,Porcine 5,000 UNIT/ML VIAL 5000 UNIT SUBCUT (17:24)
[2020-10-02] MEDS: Ertapenem Sodium 1 GM in 0.9 % Sodium Chloride 50 ML IV (17:25)
[2020-10-03] VITALS (8 sets, daily range): BP systolic 97–145; BP diastolic 54–96; PULSE 59–101; RESP 16–20; TEMP 36.1–36.7; O2SAT 95–98
[2020-10-03] MEDS: Heparin Sodium,Porcine 5,000 UNIT/ML VIAL 5000 UNIT SUBCUT ×2 (05:14→17:55)
[2020-10-03] MEDS: lisinopriL 5 MG TABLET PO (08:38)
[2020-10-03] MEDS: Sennosides 8.6 MG TABLET 17.2 MG PO (08:38)
[2020-10-03] MEDS: Aspirin Enteric Coated 81 MG TABLET.DR PO (08:38)
[2020-10-03] MEDS: Metoprolol Tartrate 25 MG TABLET PO ×2 (08:38→20:30)
[2020-10-03] MEDS: Isosorbide Mononitrate 30 MG TAB.ER.24H PO (08:38)
[2020-10-03] MEDS: Atorvastatin Calcium 40 MG TABLET PO (08:39)
[2020-10-03] MEDS: 0.9 % Sodium Chloride Flush 3 ML SYRINGE IVFLUSH ×3 (08:39→23:14)
--- NOTE | 2020-10-03 11:20 | P.PNIM_ITS ---
Subjective Subjective Date of Service: 10/03/20 Interval History: Patient seen and examined at bedside Patient reported feeling better no hematuria Genitourinary Genitourinary: Reports other (urinary retention ) Physical Exam Vital Signs: Vital Signs: Last Vital Signs Temp 97.6 F 10/03/20 07:55 Pulse 63 10/03/20 08:38 Resp 16 10/03/20 07:55 BP 135/65 10/03/20 08:38 Pulse Ox 95 10/03/20 07:55 Body Mass Index 23.7 Const: General: cooperative, comfortable and no acute distress O rientation/consciousness: oriented to person, oriented to place and oriented to time HENMT: Head: Yes normal to inspection Eyes: General: appearance normal, both eyes and all related structures Neck: Neck: Yes normal visual inspection Chest: Chest palpation & inspection: normal inspection of the chest Resp: Effort & Inspection: normal respiratory effort Auscultation: clear to auscultation bilaterally Cardio: Jugular venous distension: no JVD Rate: regular rate Rhythm: regular rhythm Heart sounds: S1 normal heart sound present and S2 normal heart sound present GI: Inspection: Yes normal to inspection : Male General Exam: Yes other (robert + with robert bag draining dark blood with clots ) Skin: General skin exam: no rashes or lesions noted Neuro: General: oriented to person, oriented to place and oriented to time Cognition (Neuro): normal cognition Extrem: General: Yes normal to inspection Objective Data Current Medications Generic Name Dose Route Start Last Admin Trade Name Freq PRN Reason Stop Dose Admin Aspirin 81 mg 09/30/20 09:00 10/03/20 08:38 Aspirin Enteric Coated 81 Mg Tablet.Dr PO 81 mg DAILY KRISTINE Administration Atorvastatin Calcium 40 mg 09/30/20 09:00 10/03/20 08:39 Atorvastatin Calcium 40 Mg Tablet PO 40 mg DAILY KRISTINE Administration Heparin Sodium (Porcine) 5,000 unit 10/02/20 17:00 10/03/20 05:14 Heparin Sodium,Porcine 5,000 Unit/Ml Vial SUBCUT 5,000 unit Q12H KRISTINE Administration Ertapenem 1 gm/ Sodium 50 mls @ 100 mls/hr 09/30/20 17:00 10/02/20 18:15 Chloride IV Infused Q24H KRISTINE Infusion Isosorbide Mononitrate 30 mg 09/30/20 09:00 10/03/20 08:38 Isosorbide Mononitrate 30 Mg Tab.Er.24h PO 30 mg DAILY [facility] Administration Protocol Lisinopril 5 mg 09/30/20 09:00 10/03/20 08:38 Lisinopril 5 Mg Tablet PO 5 mg DAILY [facility] Administration Protocol Metoprolol Tartrate 25 mg 09/29/20 21:00 10/03/20 08:38 Metoprolol Tartrate 25 Mg Tablet PO 25 mg BID [facility] Administration Protocol Pharmacy Consult 1 each 09/29/20 17:09 Consult Rx Perform Med Rec MISCELLANE ONCE PRN Consult order Senna 17.2 mg 09/30/20 09:00 10/03/20 08:38 Sennosides 8.6 Mg Tablet PO 17.2 mg DAILY [facility] Administration Sodium Chloride 3 ml 09/30/20 05:31 10/03/20 08:39 0.9 % Sodium Chloride Flush 3 Ml Syringe IVFLUSH 3 ml QSHIFT [facility] Administration Tamsulosin HCl 0.4 mg 09/30/20 09:00 10/03/20 08:41 Tamsulosin Hcl 0.4 Mg Capsule PO Not Given DAILY [facility] Labs CBC & Chem 7: 09/30/20 08:52 09/30/20 08:52 Microbiology Microbiology Results: Microbiology 10/02/20 08:23 Blood - Venous Blood Culture - Preliminary No growth after 24 hours. 10/02/20 08:35 Blood - Venous Blood Culture - Preliminary No growth after 24 hours. 09/29/20 16:32 Blood - Venous Blood Culture - Preliminary Proteus mirabilis 09/29/20 16:14 Blood - Venous Blood Culture - Final Proteus mirabilis 09/29/20 Unknown Urine clean catch - Clean Catch Midstream Urine Culture - Final Proteus mirabilis Assessment and Plan (1) UTI (urinary tract infection): Status: Acute (2) BPH (benign prostatic hyperplasia): Status: Acute (3) Essential hypertension: Status: Acute (4) Hyperlipidemia, unspecified: Status: Acute (5) Constipation: Status: Acute Assessment and Plan: UTI Proteus bacteremia secondary to UTI Patient was recently admitted with ESBL UTI and recently finished ertapenem continue ertapenem Blood culture growing Proteus repeat blood culture pending id consulted recommended continue ertapenem will get ID follow-up for antibiotic duration will likely need PICC line on discharge Urinary retention Robert inserted per Urology seen by Dr. Hein continue robert catheter follow-up urology Dr. Hein as outpatient Mild hematuria on admission resolved H&H stable no more hematuria Hx of CAD continue with aspirin continue with isosorbide continue with lisinopril continue with metoprolol continue with statin continue with senna DVT prophylaxis heparin subcu
[2020-10-03] MEDS: Ertapenem Sodium 1 GM in 0.9 % Sodium Chloride 50 ML IV (17:55)
[2020-10-04] VITALS (7 sets, daily range): BP systolic 99–136; BP diastolic 52–72; PULSE 53–67; RESP 16–18; TEMP 36.1–36.6; O2SAT 94–98
[2020-10-04] MEDS: Heparin Sodium,Porcine 5,000 UNIT/ML VIAL 5000 UNIT SUBCUT ×2 (03:56→17:07)
[2020-10-04 06:35] LABS: MANUAL DIFF FLAG NO
[2020-10-04 06:52] LABS: Basophils Percent Auto 0.4 % (0-2); Eosinophils Absolute Auto 0.4 X10*3/uL (0.0-0.4); Eosinophils Percent Auto 4.9 % (0-4); Hematocrit 38.5 % (42-52); Hemoglobin 13.2 g/dl (14.0-18.0); Imm Gran Abs Auto 0.02 X10*3/uL (0.00-0.03); Imm Gran Pct Auto 0.3 % (0.0-0.4); Lymphocytes Absolute Auto 2.5 X10*3/uL (1.2-4.9); Mean Corpuscular HGB Conc 34.3 g/dl (31.0-36.0); Mean Corpuscular Hemoglobin 30.2 pg (27.0-33.0); Mean Corpuscular Volume 88.1 fL (80-98); Mean Platelet Volume 10.2 fL (9.4-12.4); Monocytes Absolute Auto 0.7 X10*3/uL (0.1-1.2); Monocytes Percent Auto 9.7 % (2-11); Neutrophils Absolute Auto 3.9 X10*3/uL (2.0-8.3); Neutrophils Percent Auto 51.7 % (45-73); Platelet Count 212 X10*3/uL (160-400); Red Blood Count 4.37 X10*6/uL (4.60-5.80); White Blood Count 7.5 X10*3/uL (4.8-10.8)
[2020-10-04 07:13] LABS: Anion Gap 12 (12-20); Blood Urea Nitrogen 22 mg/dL (9-16); Calcium 8.5 mg/dL (8.4-10.2); Carbon Dioxide 25 mmol/L (22-29); Chloride 106 mmol/L (96-108); Creatinine Clr Calc Pharmacy 86.3; Estimated Glomerular Filt Rate > 60; Glucose Random 95 mg/dL (60-115); Potassium 4.5 mmol/l (3.3-5.1); Sodium 138 mmol/L (135-145)
[2020-10-04] MEDS: Isosorbide Mononitrate 30 MG TAB.ER.24H PO (09:02)
[2020-10-04] MEDS: 0.9 % Sodium Chloride Flush 3 ML SYRINGE IVFLUSH ×3 (09:02→20:24)
[2020-10-04] MEDS: Sennosides 8.6 MG TABLET 17.2 MG PO (09:03)
[2020-10-04] MEDS: lisinopriL 5 MG TABLET PO (09:03)
[2020-10-04] MEDS: Atorvastatin Calcium 40 MG TABLET PO (09:03)
[2020-10-04] MEDS: Metoprolol Tartrate 25 MG TABLET PO ×2 (09:03→20:23)
[2020-10-04] MEDS: Aspirin Enteric Coated 81 MG TABLET.DR PO (09:03)
--- NOTE | 2020-10-04 09:41 | MHC.CM.PN ---
NORA HOPKINS UPDATED IN [facility]. CURRENT PLAN IS PICC INSERTION Monday10/05/2020. OF THIS NOTE, NO HOME INFUSION REFERRAL PLACED. CASE MANAGEMENT WILL COMPLETE ON MONDAY AFTER MEDICAL ROUNDS TO CONFIRM ABX, DOSE, AND SCHEDULE
--- NOTE | 2020-10-04 12:56 | P.PNIM_ITS ---
Subjective Subjective Date of Service: 10/04/20 Interval History: no further hematuria denies fever, chills, nausea, vomiting, or abd pain Physical Exam Vital Signs: Vital Signs: Last Vital Signs Temp 97.9 F 10/04/20 11:56 Pulse 53 10/04/20 11:56 Resp 18 10/04/20 11:56 BP 99/55 L 10/04/20 11:56 Pulse Ox 96 10/04/20 11:56 Body Mass Index 23.7 Gen: in no acute distress Lungs: clear to auscultation bilaterally Heart: regular rate and rhythm, no murmurs Abd: soft, non-tender, non-distended : Fam in place draining clear urine Ext: no edema Skin: warm/well-perfused Neuro: alert and oriented x3, no focal findings Psych: appropriate affect Objective Data Current Medications Generic Name Dose Route Start Last Admin Trade Name Freq PRN Reason Stop Dose Admin Aspirin 81 mg 09/30/20 09:00 10/04/20 09:03 Aspirin Enteric Coated 81 Mg Tablet.Dr PO 81 mg DAILY KRISTINE Administration Atorvastatin Calcium 40 mg 09/30/20 09:00 10/04/20 09:03 Atorvastatin Calcium 40 Mg Tablet PO 40 mg DAILY KRISTINE Administration Heparin Sodium (Porcine) 5,000 unit 10/02/20 17:00 10/04/20 03:56 Heparin Sodium,Porcine 5,000 Unit/Ml Vial SUBCUT 5,000 unit Q12H KRISTINE Administration Ertapenem 1 gm/ Sodium 50 mls @ 100 mls/hr 09/30/20 17:00 10/03/20 18:45 Chloride IV Infused Q24H KRISTINE Infusion Isosorbide Mononitrate 30 mg 09/30/20 09:00 10/04/20 09:02 Isosorbide Mononitrate 30 Mg Tab.Er.24h PO 30 mg DAILY KRISTINE Administration Protocol Lisinopril 5 mg 09/30/20 09:00 10/04/20 09:03 Lisinopril 5 Mg Tablet PO 5 mg DAILY KRISTINE Administration Protocol Metoprolol Tartrate 25 mg 09/29/20 21:00 10/04/20 09:03 Metoprolol Tartrate 25 Mg Tablet PO 25 mg BID KRISTINE Administration Protocol Pharmacy Consult 1 each 09/29/20 17:09 Consult Rx Perform Med Rec MISCELLANE ONCE PRN Consult order Senna 17.2 mg 09/30/20 09:00 10/04/20 09:03 Sennosides 8.6 Mg Tablet PO 17.2 mg DAILY KRISTINE Administration Sodium Chloride 3 ml 09/30/20 05:31 10/04/20 09:02 0.9 % Sodium Chloride Flush 3 Ml Syringe IVFLUSH 3 ml QSHIFT KRISTINE Administration Tamsulosin HCl 0.4 mg 09/30/20 09:00 10/04/20 09:03 Tamsulosin Hcl 0.4 Mg Capsule PO Not Given DAILY [facility] Labs CBC & Chem 7: 10/04/20 06:18 10/04/20 06:18 Microbiology Microbiology Results: Microbiology 10/02/20 08:23 Blood - Venous Blood Culture - Preliminary No growth after 48 hours. 10/02/20 08:35 Blood - Venous Blood Culture - Preliminary No growth after 48 hours. 09/29/20 16:14 Blood - Venous Blood Culture - Final Proteus mirabilis 09/29/20 16:32 Blood - Venous Blood Culture - Preliminary Proteus mirabilis 09/29/20 Unknown Urine clean catch - Clean Catch Midstream Urine Culture - Final Proteus mirabilis Assessment and Plan (1) UTI (urinary tract infection): Status: Acute (2) BPH (benign prostatic hyperplasia): Status: Acute (3) Essential hypertension: Status: Acute (4) Hyperlipidemia, unspecified: Status: Acute (5) Constipation: Status: Acute Assessment and Plan: hospital d#5 85yo M with CAD admitted for UTI associated with urinary retention, found to be bacteremic # Proteus mirabilis bateremia - recent course of ertapenem for ESBL Proteus UTI in Jul-Aug - currently on ertapenem d#5 - repeat BCx negative - PICC line tomorrow, discuss ABX duration with ID # 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
[2020-10-04] MEDS: Ertapenem Sodium 1 GM in 0.9 % Sodium Chloride 50 ML IV (17:08)
[2020-10-05] VITALS: BP 148/72; PULSE 53; RESP 14; TEMP 36.1; O2SAT 98
[2020-10-05 03:57] VITALS: BP 108/61; PULSE 51; RESP 16; TEMP 36.6; O2SAT 97
[2020-10-05] MEDS: Heparin Sodium,Porcine 5,000 UNIT/ML VIAL 5000 UNIT SUBCUT (05:22)
[2020-10-05 07:22] VITALS: BP 102/58; PULSE 57; RESP 16; TEMP 36.3; O2SAT 97
[2020-10-05 08:40] VITALS: PULSE 57
[2020-10-05] MEDS: Isosorbide Mononitrate 30 MG TAB.ER.24H PO (08:42)
[2020-10-05] MEDS: Sennosides 8.6 MG TABLET 17.2 MG PO (08:42)
[2020-10-05] MEDS: lisinopriL 5 MG TABLET PO (08:42)
[2020-10-05] MEDS: Atorvastatin Calcium 40 MG TABLET PO (08:42)
[2020-10-05] MEDS: Aspirin Enteric Coated 81 MG TABLET.DR PO (08:42)
[2020-10-05] MEDS: 0.9 % Sodium Chloride Flush 3 ML SYRINGE IVFLUSH (08:43)
[2020-10-05 11:14] VITALS: BP 103/59; PULSE 86; RESP 18; TEMP 36.5; O2SAT 95
--- NOTE | 2020-10-05 12:43 | HO.PM.IMPN ---
Subjective Subjective Date of Service: 10/05/20 Interval History: No new events Awaiting guardianship hearing Physical Exam Vital Signs: Vital Signs: Last Vital Signs Temp 97.7 F 10/05/20 11:14 Pulse 86 10/05/20 11:14 Resp 18 10/05/20 11:14 BP 103/59 L 10/05/20 11:14 Pulse Ox 95 10/05/20 11:14 Body Mass Index 23.7 Gen: in no acute distress Lungs: clear to auscultation bilaterally Heart: regular rate and rhythm, no murmurs Abd: soft, non-tender, non-distended : Fam in place draining clear urine Ext: no edema Skin: warm/well-perfused Objective Data Current Medications Generic Name Dose Route Start Last Admin Trade Name Milesq PRN Reason Stop Dose Admin Aspirin 81 mg 09/30/20 09:00 10/05/20 08:42 Aspirin Enteric Coated 81 Mg Tablet.Dr PO 81 mg DAILY KRISTINE Administration Atorvastatin Calcium 40 mg 09/30/20 09:00 10/05/20 08:42 Atorvastatin Calcium 40 Mg Tablet PO 40 mg DAILY KRISTINE Administration Heparin Sodium (Porcine) 5,000 unit 10/02/20 17:00 10/05/20 05:22 Heparin Sodium,Porcine 5,000 Unit/Ml Vial SUBCUT 5,000 unit Q12H KRISTINE Administration Ertapenem 1 gm/ Sodium 50 mls @ 100 mls/hr 09/30/20 17:00 10/04/20 18:28 Chloride IV Infused Q24H KRISTINE Infusion Isosorbide Mononitrate 30 mg 09/30/20 09:00 10/05/20 08:42 Isosorbide Mononitrate 30 Mg Tab.Er.24h PO 30 mg DAILY KRISTINE Administration Protocol Lisinopril 5 mg 09/30/20 09:00 10/05/20 08:42 Lisinopril 5 Mg Tablet PO 5 mg DAILY KRISTINE Administration Protocol Metoprolol Tartrate 25 mg 09/29/20 21:00 10/05/20 08:40 Metoprolol Tartrate 25 Mg Tablet PO Not Given BID [facility] Protocol Pharmacy Consult 1 each 09/29/20 17:09 Consult Rx Perform Med Rec MISCELLANE ONCE PRN Consult order Senna 17.2 mg 09/30/20 09:00 10/05/20 08:42 Sennosides 8.6 Mg Tablet PO 17.2 mg DAILY K[facility] Administration Sodium Chloride 3 ml 09/30/20 05:31 10/05/20 08:43 0.9 % Sodium Chloride Flush 3 Ml Syringe IVFLUSH 3 ml QSHIFT KRISTINE Administration Tamsulosin HCl 0.4 mg 09/30/20 09:00 10/05/20 08:45 Tamsulosin Hcl 0.4 Mg Capsule PO Not Given DAILY [facility] Labs CBC & Chem 7: 10/04/20 06:18 10/04/20 06:18 Microbiology Microbiology Results: Microbiology 09/29/20 16:32 Blood - Venous Blood Culture - Final Proteus mirabilis 10/02/20 08:23 Blood - Venous Blood Culture - Preliminary No growth after 48 hours. 10/02/20 08:35 Blood - Venous Blood Culture - Preliminary No growth after 48 hours. 09/29/20 16:14 Blood - Venous Blood Culture - Final Proteus mirabilis 09/29/20 Unknown Urine clean catch - Clean Catch Midstream Urine Culture - Final Proteus mirabilis Assessment and Plan (1) UTI (urinary tract infection): Status: Acute (2) BPH (benign prostatic hyperplasia): Status: Acute (3) Essential hypertension: Status: Acute (4) Hyperlipidemia, unspecified: Status: Acute (5) Constipation: Status: Acute Assessment and Plan: hospital d#5 85yo M with CAD admitted for UTI associated with urinary retention, found to be bacteremic # Proteus mirabilis bateremia - recent course of ertapenem for ESBL Proteus UTI in Jul-Aug - currently on ertapenem d#5 - repeat BCx negative - PICC line tomorrow, discuss ABX duration with ID # 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
--- NOTE | 2020-10-05 14:04 | W.MHC.F2F ---
Service Date Service Date: 10/05/20 Encounter Date of encounter: 10/05/20 Reasons for Services Reason for jail: medication management, medication treatment, teach disease management and GI/ assessment Reason for physical therapy: home safety and mobility, therapeutic exercises, gait/transfer training, assess need for DME, ADL training and energy conservation MD Overseeing Care: Pro Nunn Homebound: Leaving the home is medically contraindicated at this time without the asist of a device and/or another person due th the listed conditions above and below. Reason homebound: immunosuppression / infection risk and weakness related to hospital stay Homebound supporting statement: Mr Lemos was admitted to [facility] [place] 09/30-10/05/20 for Proteus bacteremia and UTI related to bladder neck stricture and is being discharged on oral antibiotics with an indwelling Fam catheter. Certification: Based on the above findings, I certify that this patient is confined to the home and needs intermittent jail care, physical therapy and/or speech therapy, or continues to need occupational therapy. The patient is under my care, and I have initiated the establishment of the plan of care. The patient will be followed by a physician who will periodically review the plan of care.
--- NOTE | 2020-10-05 14:16 | P.DS_ITS ---
DS: Providers Provider Date of admission: 09/30/20 11:45 Primary care physician: Pro Nunn MD Consults: 09/29/20 21:06 Consult to Urology Routine Consulting Provider: [facility] Reason for consultation: urinary retention Has provider been notified: No 09/29/20 21:10 Consult to Infectious Diseases Routine Consulting Provider: Cindi Melgoza Reason for consultation: MDRO UTI Has provider been notified: No DS: Diagnosis Discharge Diagnosis (1) UTI (urinary tract infection): Status: Acute (2) Bladder neck stricture: Status: Acute (3) Bacteremia: Status: Acute (4) Proteus mirabilis infection: Status: Acute (5) Hematuria: Status: Acute DS: Medications Discharge Medications Home Medications: Home Medications Medication Instructions Recorded Confirmed isosorbide mononitrate 30 mg 30 mg PO DAILY 08/06/20 09/29/20 tablet,extended release 24 hr lisinopril 5 mg tablet 5 mg PO DAILY 08/06/20 09/29/20 Previous Rx's Medication Instructions Recorded aspirin 81 mg tablet,delayed 81 mg PO DAILY #90 tab 08/06/20 release rosuvastatin 10 mg tablet 10 mg PO DAILY #90 tab 08/06/20 sennosides [Senna Lax] 17.2 mg PO DAILY #30 tab 08/31/20 metoprolol tartrate 25 mg tablet 25 mg PO BID #180 tab 09/23/20 cefuroxime axetil 500 mg PO BID #28 tab 10/05/20 DS: Summary Hospital Course Hospital Course: from History and Physical by admitting hospitalist Adela Orourke MD, 09/29/20: 85 y/o male who presented from a [Group] home due to urinary retention. Per history provided by the patient, for the past 2 days has been having a hard time getting urine out , today was unable to do so for what decided to present to the ED. Patient has a hx or urinary retention in the past requiring catheterization. On 08/28/20 was found to have a UTI that was MDRO, sensitive to ertapenem. Patient was started on ertapenem for a total course of 14 days per ID recs and discharged. Today upon presentation to the ED patient was evaluated per Urology Dr Hein for robert placing and upon insertion urine was noted to be very cloudy concerning for UTI and possibly requiring again ertapenem treatment based on previous sensitivities in the past for what decision for admission was given to medicine. [I clarify that the patient presented from home, not a [facility].] Patient seen and examined at the bedside, laying down in bed in no acute distress. ROS as above otherwise negative. Physical exam positive for robert and dark blood coming out to robert bag with clots. CBI to be placed now. In the ED, the patient underwent flexible cystocopy; a glidewire was passed around a bladder neck stricture and the stricture was dilated; a Robert was then placed over the Guidewie. The patient was admitted to the medical/surgical floor. He was not septic. He was placed on ertapenem due to prior history of ESBL Proteus mirabilis UTI in August 2020. Hematuria resolved. Blood and urine cultures were positive for Proteus mirabilis but it was sensitive to ceftriaxone. ID was consulted. After receiving IV ertapenem for 6 days in the hospital, he will be discharged home on cefuroxime 500 mg bid for 14 days. He will follow up with the urologist on 10/15/20. VNA services were arranged upon discharge. Time Spent with Patient Time attestation: Total time spent providing and/or coordinating discharge services: 45 Physical Exam Vital Signs: Vital Signs: Last Vital Signs Temp 97.7 F 10/05/20 11:14 Pulse 86 10/05/20 11:14 Resp 18 10/05/20 11:14 BP 103/59 L 10/05/20 11:14 Pulse Ox 95 10/05/20 11:14 Body Mass Index 23.7 Gen: in no acute distress Lungs: clear to auscultation bilaterally Heart: regular rate and rhythm, no murmurs Abd: soft, non-tender, non-distended : Robert in place draining clear urine Ext: no edema Skin: warm/well-perfused Neuro: alert and oriented x3, no focal findings Psych: appropriate affect DS: Data Data Completed and Pending Labs on day of discharge: Laboratory Results WBC 7.5 X10*3/uL (4.8-10.8) 10/04/20 06:18 RBC 4.37 X10*6/uL (4.60-5.80) L 10/04/20 06:18 Hgb 13.2 g/dl (14.0-18.0) L 10/04/20 06:18 Hct 38.5 % (42-52) L 10/04/20 06:18 MCV 88.1 fL (80-98) 10/04/20 06:18 MCH 30.2 pg (27.0-33.0) 10/04/20 06:18 MCHC 34.3 g/dl (31.0-36.0) 10/04/20 06:18 RDW 12.0 % (11.0-16.0) 10/04/20 06:18 Plt Count 212 X10*3/uL (160-400) 10/04/20 06:18 MPV 10.2 fL (9.4-12.4) 10/04/20 06:18 Immature Gran % (Auto) 0.3 % (0.0-0.4) 10/04/20 06:18 Neut % (Auto) 51.7 % (45-73) 10/04/20 06:18 Lymph % (Auto) 33.0 % (20-40) 10/04/20 06:18 [place] % (Auto) 9.7 % (2-11) 10/04/20 06:18 Eos % (Auto) 4.9 % (0-4) H 10/04/20 06:18 Baso % (Auto) 0.4 % (0-2) 10/04/20 06:18 Lymph # (Auto) 2.5 X10*3/uL (1.2-4.9) 10/04/20 06:18 [place] # (Auto) 0.7 X10*3/uL (0.1-1.2) 10/04/20 06:18 Eos # (Auto) 0.4 X10*3/uL (0.0-0.4) 10/04/20 06:18 Baso # (Auto) 0.0 X10*3/uL (0.0-0.2) 10/04/20 06:18 Abs Immat Gran (auto) 0.02 X10*3/uL (0.00-0.03) 10/04/20 06:18 Absolute Neuts (auto) 3.9 X10*3/uL (2.0-8.3) 10/04/20 06:18 Absolute Nucleated RBC 0.000 X10*3/uL (0.0-0.012) 10/04/20 06:18 Nucleated RBC % (auto) 0.0 /100WBC (0.0-0.2) 10/04/20 06:18 Hold Blue Top SEE NOTE 09/29/20 16:15 Sodium 138 mmol/L (135-145) 10/04/20 06:18 Potassium 4.5 mmol/l (3.3-5.1) 10/04/20 06:18 Chloride 106 mmol/L (96-108) 10/04/20 06:18 Carbon Dioxide 25 mmol/L (22-29) 10/04/20 06:18 Anion Gap 12 (-20) 10/04/20 06:18 BUN 22 mg/dL (9-16) H 10/04/20 06:18 Creatinine 0.74 mg/dL (0.5-1.4) 10/04/20 06:18 Estim Creat Clear Calc 86.3 10/04/20 06:18 Estimated GFR > 60 10/04/20 06:18 Random Glucose 95 mg/dL (60-115) D 10/04/20 06:18 Lactic Acid 1.7 mmol/L (0.5-2.0) 09/29/20 16:14 Calcium 8.5 mg/dL (8.4-10.2) 10/04/20 06:18 Urine Color LUNA 09/29/20 16:15 Urine Appearance HAZY 09/29/20 16:15 Urine pH 6.0 (5.0-8.0) 09/29/20 16:15 Ur Specific [place] 1.010 (1.005-1.025) 09/29/20 16:15 Urine Protein 1+ MG/DL (NEG-TRACE) H 09/29/20 16:15 Urine Glucose (UA) NEG MG/DL (NEG) 09/29/20 16:15 Urine Ketones NEG MG/DL (NEG) 09/29/20 16:15 Urine Blood 3+ (NEG) H 09/29/20 16:15 Urine Nitrite POS (NEG) H 09/29/20 16:15 Ur Leukocyte Esterase 3+ (NEG) H 09/29/20 16:15 Urine RBC 50-75 /HPF (0) H 12/01/20 16:15 Urine WBC TNTC /HPF (0-4) H 09/29/20 16:15 Ur Squamous Epith Cells TRACE /LPF 09/29/20 16:15 Amorphous Sediment 1+ /LPF 09/29/20 16:15 Urine Bacteria TRACE /LPF 09/29/20 16:15 COVID-19 ([facility]) Negative (Negative) 09/29/20 19:07 COVID-19 Clin Com See Note 09/29/20 19:07 Discharge Plan Discharge Anticipated Discharge Date/Time: 10/05/20 14:04 Patient Disposition: Home Health Service Referrals: [facility] [Outside] (PATIENT IS DISCHARGED HOME WITH [facility]) Po,Pro Adame MD [Primary Care Provider] - 1 Week (Denisha Ludwig 10/19/2020 2pm If you can't keep this appointment please call and reschedule if you can't keep this appointment.) Discharge Medications: New cefuroxime axetil 500 mg tablet 500 mg PO BID Qty: 28 RF: 0 Continued metoprolol tartrate 25 mg tablet 25 mg PO BID Qty: 180 RF: 2 sennosides [Senna Lax] 8.6 mg Tablet 17.2 mg PO DAILY Qty: 30 RF: 0 lisinopril 5 mg tablet 5 mg PO DAILY RF: 0 isosorbide mononitrate 30 mg tablet extended release 24 hr 30 mg PO DAILY RF: 0 rosuvastatin [Crestor] 10 mg tablet 10 mg PO DAILY Qty: 90 RF: 4 aspirin [Enteric Coated Aspirin] 81 mg tablet,delayed release (DR/EC) 81 mg PO DAILY Qty: 90 RF: 4 Discontinued tamsulosin 0.4 mg capsule 0.4 mg PO DAILY RF: 0 Discharge Orders: Discharge Order (Routine); Ordered 10/05/20 Ordered By: Leonid Medellin Diet: advance to usual diet Activity on Discharge: As tolerated Patient Instructions: Urinary Tract Infection in Men (GEN), Robert Catheter Placement and Care (DC), Bacteremia (DC) Visit Report Forms: Patient Portal Discharge page Care Plan Goals: resolution of urinary tract/bloodstream infection and ability to urinate on own Health Concerns: UTI, bacteremia, bladder neck stricture Plan of Treatment: take cefuroxime 500 mg twice daily for 14 days leave Robert in place and follow up with urologist Dr Hein 10/15/20 follow up with primary care doctor in 1 week
[2020-10-05] MEDS: Ertapenem Sodium 1 GM in 0.9 % Sodium Chloride 50 ML IV (14:31)
[2020-10-05 15:33] VITALS: BP 119/59; PULSE 65; RESP 16; TEMP 36.6; O2SAT 97
== END 2020-10-05 16:00 | disposition home health service (06) | DRG 690 ==
LOC: HO.ED 21:13 → HO.S3 09-30 06:06
PROVIDERS: Internal Medicine; Nurse Practitioner Family; Admitting Provider Internal Medicine; Emergency Provider Emergency Medicine; PCP Internal Medicine; Visit Provider Family Medicine
DX: N39.0 Urinary tract infection, site not specified (principal); R78.81 Bacteremia; N32.0 Bladder-neck obstruction; E78.5 Hyperlipidemia, unspecified; R31.9 Hematuria, unspecified; K59.00 Constipation, unspecified; N40.1 Benign prostatic hyperplasia with lower urinary tract symptoms; I25.10 Atherosclerotic heart disease of native coronary artery without angina pectoris; B96.4 Proteus (mirabilis) (morganii) as the cause of diseases classified elsewhere; R33.8 Other retention of urine; Z20.828 Contact with and (suspected) exposure to other viral communicable diseases; Z79.82 Long term (current) use of aspirin; Z87.440 Personal history of urinary (tract) infections; Z79.899 Other long term (current) drug therapy
CPT/HCPCS: 36415; 80048; 81001; 83605; 85025; 87040; 87077; 87086; 87088; 87186; 87635; 96365; 99218; 99284; 99285; J1335

== ENCOUNTER → 2020-10-15 09:40 | Outpatient (BNVA) | payer MEDICARE, OTHER, SELFPAY | PROVIDERS: Visit Provider Urology | DX: N32.0 Bladder-neck obstruction (principal) | CPT/HCPCS: 51701; 99212 ==

== ENCOUNTER 2020-10-19 11:01 | Day surgery (SDC) | payer MEDICARE, OTHER, SELFPAY ==
--- NOTE | 2020-10-16 13:03 | P.CONAN_ITS ---
Documented by User: Carlene Mejia 10/16/20 13:08 HPI - Anesthesia Eval Consult details Narrative: 85yo M for Cystoscopy Incision Bladder Neck PMFSH Past Medical History Medical History Abnormal myocardial perfusion study Atherosclerotic cardiovascular disease Colon cancer Essential hypertension Hyperlipidemia, unspecified Prostate cancer Family History Family History Father Pancreatic cancer Mother No problems noted. Brother Liver cancer Surgical History Surgical History History of appendectomy History of bladder surgery (~01/04/18) History of colectomy History of prostate surgery (~2016) Social History Social History Household Members: Spouse Housing: House Are you a primary director long term care to a significant other at home: Yes (Cares for his with Grand Dtr helping) Do you presently have visiting nurse or other home services: No Alcohol intake: unknown Smoking Status: Unknown if ever smoked Use of substances other than those prescribed or required for medical reasons: No Advance Directives: No Advance Directives Information Provided: No Advance Directives on File: No Recently lost weight without trying: No service: Yes ([employer]) Current occupational status: retired Narrative Narrative: Stable at yearly cardiac visit. Meds Allergies Allergy/AdvReac Type Severity Reaction Status Date / Time diphenhydramine AdvReac Intermediate Hallucinati Verified 09/29/20 15:38 [From Benadryl] ons Home Medications Medication Instructions Recorded Confirmed Type lisinopril 5 mg tablet 5 mg PO DAILY 08/06/20 09/29/20 History Exam Exam Date and Time: October 16, 2020 1303 Pertinent Lab Results Pertinent Lab Results: Laboratory Tests 10/04/20 10/04/20 06:18 06:18 WBC 7.5 Hgb 13.2 L Hct 38.5 L Plt Count 212 Sodium 138 Potassium 4.5 Chloride 106 Carbon Dioxide 25 BUN 22 H Creatinine 0.74 Narrative Narrative: EKG 08/2020: SR with 1st degree AV block, otherwise nml ECHO LVEF 60-65%, no RWMA, No signif valve path Stress MIBI 2017: some inferobasal and apical ischemia. Similiar findings as 2015 MIBI. Continue med tx (no angina or other cardiac symptoms) Assessment and Plan Assessment Anesthesia Assessment: Chart Reviewed Documented by User: Jacqui Quijano 10/19/20 13:33 [facility] Past Medical History Medical History Abnormal myocardial perfusion study Atherosclerotic cardiovascular disease Colon cancer Essential hypertension Hyperlipidemia, unspecified Prostate cancer Family History Family History Father Pancreatic cancer Mother No problems noted. Brother Liver cancer Surgical History Surgical History History of appendectomy History of bladder surgery (~01/04/18) History of colectomy History of prostate surgery (~2016) Social History Social History Household Members: Spouse Housing: House Are you a primary director long term care to a significant other at home: Yes (Cares for his with Grand Dtr helping) Do you presently have visiting nurse or other home services: No Alcohol intake: unknown Smoking Status: Unknown if ever smoked Use of substances other than those prescribed or required for medical reasons: No Advance Directives: No Advance Directives Information Provided: No Advance Directives on File: No Recently lost weight without trying: No service: Yes ([employer]) Current occupational status: retired Meds Allergies Allergy/AdvReac Type Severity Reaction Status Date / Time diphenhydramine AdvReac Intermediate Hallucinati Verified 09/29/20 15:38 [From Benadryl] ons Home Medications Medication Instructions Recorded Confirmed Type lisinopril 5 mg tablet 5 mg PO DAILY 08/06/20 09/29/20 History Exam Airway Mallampati Class: III (Missing multiole teeth nothing loose) TM Dist: >3cm Neck ROM: Full Heart: RRr Lungs: CTA Bl Assessment and Plan Assessment Anesthesia Assessment: Anesthesia Plan Discussed and Chart Reviewed Final Anesthetic Review NPO: Yes (Sip water with med) ASA Class: III Final Preanesthetic Review: Meds/Allgs Chart Reviewed and Consent Obtained/Reviewed Patient Risk: Intermediate Procedure Risk: Intermediate Anesthetic Plan Anesthetic Plan: GA Disposition: Standard PACU
[2020-10-19] VITALS (8 sets, daily range): BP systolic 110–143; BP diastolic 57–76; PULSE 49–71; RESP 16; TEMP 36.4–36.8; O2SAT 94–99; BMI 25.0
[2020-10-19] MEDS: Lactated Ringers 1,000 ML 50 ML IVCONT (12:25)
[2020-10-19] MEDS: levoFLOXacin 500 MG TABLET PO (12:29)
--- NOTE | 2020-10-19 13:21 | MHC.SHP ---
Pre-Procedural Eval Section A The patient is an INPATIENT: No Changes since office visit: No Cold of Flu in the past 2 weeks, No New Medical Problems, No Changes in Medication and No Patient answered all questions The History & Physical has been completed within 30 days and I have reviewed it.: Yes Section B Chief Complaint: bladder neck obstruction Allergies: Allergies Allergy/AdvReac Type Severity Reaction Status Date / Time diphenhydramine AdvReac Intermediate Hallucinati Verified 09/29/20 15:38 [From Tereza] ons Plan I have reviewed the history and physical and performed a pertinent physical examination on my patient. No changes have occurred unless specified.\ - cystoscopy bladder neck incision
--- NOTE | 2020-10-19 14:29 | PM.OP ---
Brief Operative Note Date of Service: 10/19/20 Pre-op diagnosis: Bladder neck contracture Procedure: Incision bladder neck contracture Surgeon: Jerman Hein MD Anesthesia: GLMA Estimated blood loss (mL): 0 Pathology: none sent Condition: stable Disposition: same day
--- NOTE | 2020-10-19 14:32 | P.OP_ITS ---
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 Known bladder neck issues. Had prostatectomy followed by radiation for increasing PSA. Subsequently has had bladder neck contracture. Had incision last year. Has had closure of Fam catheter placed emergency room. Recommend incision under anesthesia and then will start performing daily CIC. Procedure: After informed consent was verified the patient was brought to the operating room and placed in a supine position. Anesthesia was performed per protocol. Patient placed in modified dorsal lithotomy position and prepped and draped in sterile fashion. Safety pause time-out performed. Antibiotics have been given. Resectoscope was inserted after well lubricating the urethra. There was a densi ty around the bladder neck. Around will to push through this and then using the resectoscope make incisions at the 09:00 o'clock and 3 o'clock position. 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 Resectoscope removed. A 24 [place] coude [place] tip catheter was placed without difficulty. 30 cc placed in the balloon. This will stay 1 week He tolerated the procedure well was extubated in the operating room transferred in stable condition to the recovery area. Pathology: None Drains: Twenty-four Norwegian coude [place] tip catheter with 30 cc
== END 2020-10-19 16:24 | disposition home or self-care (01) ==
PROVIDERS: PCP Internal Medicine; Visit Provider Urology
PROC: 0T9C8ZZ Drainage of Bladder Neck, Via Natural or Artificial Opening Endoscopic (ICD-10-PCS; CPT 52276; principal; 2020-10-19 12:50)
DX: N32.0 Bladder-neck obstruction (principal); N30.40 Irradiation cystitis without hematuria; Z85.46 Personal history of malignant neoplasm of prostate; Z92.3 Personal history of irradiation; I25.10 Atherosclerotic heart disease of native coronary artery without angina pectoris; I10 Essential (primary) hypertension; E78.5 Hyperlipidemia, unspecified; Z85.038 Personal history of other malignant neoplasm of large intestine; Z90.49 Acquired absence of other specified parts of digestive tract; Z79.899 Other long term (current) drug therapy; Z88.8 Allergy status to other drugs, medicaments and biological substances
CPT/HCPCS: 52276; J2405; J3010

== ENCOUNTER → 2020-10-27 09:23 | Outpatient (BNVA) | payer MEDICARE, OTHER, SELFPAY | PROVIDERS: PCP Internal Medicine; Visit Provider Urology | DX: Z13.89 Encounter for screening for other disorder (principal) | CPT/HCPCS: 99212 ==

== ENCOUNTER → 2020-12-01 11:33 | Outpatient (BNVA) | payer MEDICARE, OTHER, SELFPAY | PROVIDERS: PCP Internal Medicine; Visit Provider Urology | DX: C61 Malignant neoplasm of prostate (principal) | CPT/HCPCS: 51798; 81002; 99212 ==

== ENCOUNTER 2021-03-18 13:54 | Outpatient (REF) | payer MEDICARE, OTHER, SELFPAY ==
[2021-03-18 14:36] LABS: MANUAL DIFF FLAG NO
[2021-03-18 14:38] LABS: Basophils Percent Auto 0.4 % (0-2); Eosinophils Absolute Auto 0.3 X10*3/uL (0.0-0.4); Eosinophils Percent Auto 3.6 % (0-4); Hematocrit 43.7 % (42-52); Hemoglobin 14.4 g/dl (14.0-18.0); Imm Gran Abs Auto 0.04 X10*3/uL (0.00-0.03); Imm Gran Pct Auto 0.4 % (0.0-0.4); Lymphocytes Absolute Auto 3.1 X10*3/uL (1.2-4.9); Lymphocytes Percent Auto 33.2 % (20-40); Mean Corpuscular Hemoglobin 29.6 pg (27.0-33.0); Mean Corpuscular Volume 89.7 fL (80-98); Mean Platelet Volume 10.4 fL (9.4-12.4); Monocytes Absolute Auto 0.7 X10*3/uL (0.1-1.2); Monocytes Percent Auto 7.5 % (2-11); Neutrophils Absolute Auto 5.1 X10*3/uL (2.0-8.3); Neutrophils Percent Auto 54.9 % (45-73); Platelet Count 211 X10*3/uL (160-400); Red Blood Count 4.87 X10*6/uL (4.60-5.80); Red Cell Distribution Width 12.6 % (11.0-16.0); White Blood Count 9.2 X10*3/uL (4.8-10.8)
[2021-03-18 14:53] LABS: Glucose Urine UA NEG (NEG); Leukocyte Esterase Urine NEG (NEG); Nitrite Urine NEG (NEG); Specific Gravity - Urine 1.025 (1.005-1.025); Urine Blood NEG (NEG); Urine Ketones NEG (NEG); Urine Protein NEG (NEG-TRACE)
[2021-03-18 14:55] LABS: Appearance Urine CLEAR; Color Urine YELLOW
[2021-03-18 15:01] LABS: RBC Urine 0-2 /HPF (0); Squamous Epithelial Cell Urine TRACE /LPF
[2021-03-18 15:07] LABS: Alanine Aminotransferase 21 U/L (0-40); Albumin Level 4.2 g/dL (3.5-5.0); Alkaline Phosphatase 81 U/L (39-117); Anion Gap 12 (12-20); Aspartate Amino Transferase 17 U/L (5-37); Bilirubin Total 0.5 mg/dL (0.0-1.0); Blood Urea Nitrogen 16 mg/dL (9-16); Calcium 9.2 mg/dL (8.4-10.2); Carbon Dioxide 22 mmol/L (22-29); Chloride 110 mmol/L (96-108); Cholesterol 121 mg/dL; Estimated Glomerular Filt Rate > 60; Glucose Random 111 mg/dL (60-115); HDL Cholesterol 38 mg/dL; LDL Cholesterol Calculated 48 mg/dl; Potassium 4.5 mmol/L (3.3-5.1); Sodium 139 mmol/L (135-145); Total Protein 6.7 g/dL (6.5-8.0); Triglycerides 175 mg/dL
[2021-03-18 15:09] LABS: B Type Natriuretic Peptide 75 pg/mL (<100)
[2021-03-18 15:41] LABS: Free T4 (Free Thyroxine) 0.96 ng/dL (0.71-1.85); Thyroid Stimulating Hormone 1.31 uIU/mL (0.32-4.0)
[2021-03-18 15:43] LABS: Folate 11.6 ng/mL (> or = 4.0); Vitamin B12 284 pg/mL (200-900)
[2021-03-18 16:16] LABS: Prostate Specific Antigen < 0.05 ng/mL (<0.05-4.0); Prostate Specific Antigen Scr < 0.05 ng/mL (<0.05-4.0)
== END 2021-03-18 13:55 | disposition home or self-care (01) ==
LOC: HO.LAB 13:54
PROVIDERS: Urology; PCP Internal Medicine; Visit Provider Internal Medicine
DX: N40.1 Benign prostatic hyperplasia with lower urinary tract symptoms (principal); N13.8 Other obstructive and reflux uropathy; C61 Malignant neoplasm of prostate; I25.10 Atherosclerotic heart disease of native coronary artery without angina pectoris; E78.00 Pure hypercholesterolemia, unspecified; N39.0 Urinary tract infection, site not specified
CPT/HCPCS: 36415; 80053; 80061; 81001; 82607; 82746; 83880; 84153; 84439; 84443; 85025

== ENCOUNTER → 2021-06-01 10:28 | Outpatient (BNVA) | payer MEDICARE, OTHER, SELFPAY | PROVIDERS: PCP Internal Medicine; Visit Provider Urology | DX: N32.0 Bladder-neck obstruction (principal); C61 Malignant neoplasm of prostate | CPT/HCPCS: 99212 ==

== ENCOUNTER → 2021-09-20 09:27 | Outpatient (REF) | payer MEDICARE, OTHER, SELFPAY ==
--- NOTE | 2021-09-20 09:30 | CA_ITS ---
Transthoracic Echocardiogram Patient (Last, First, Middle): Geoffrey Bone S Gender: Male Date of : 1935 Age: 86 Procedure Date: 09/20/2021 Procedure Type: Transthoracic Echocardiogram Location: OP Height: 187.96 cm Weight: 88.45 kg BSA: 2.15 m2 Heart Rate: bpm BP: 116 / 60 mmHg Activities Manager: Referring MD: Sean Pina MD Cloth Shrinking Machine Operator: Kanu Rendon MD Symptoms: I25.10 - Atherosclerotic heart disease of [place] coronary artery without angina pectoris Study Quality: Fair ECG Rhythm: Sinus Conclusions: - 1. Normal LV systolic function with mild LVH with impaired relaxation filling pattern 2. Trivial aortic regurgitation 3. Normal RV systolic pressure 4. No gross pericardial effusion Findings Left Ventricle Normal left ventricular size and systolic function. There is mildly increased left ventricular wall thickness. The visually estimated ejection fraction is between 60-65%. Spectral Doppler is indicative of an impaired relaxation filling pattern. E/E prime ratio is between 8 and 15 consistent with indeterminate filling pressures. Right Ventricle Normal right ventricular cavity size and systolic function. Atria The left atrium is likely dilated. There is no evidence of interatrial shunt. The right atrium is normal in size. Aortic Valve The aortic valve structure and function is likely normal. There is no aortic valve stenosis. There is trace (trivial) aortic valve regurgitation. Mitral Valve Normal mitral valve structure and function. There is trace mitral valve regurgitation. There is no mitral valve stenosis. Pulmonic Valve The pulmonic valve is likely normal. There is trace pulmonic valve regurgitation. Tricuspid Valve Normal tricuspid valve structure. There is trace tricuspid valve regurgitation. The right ventricular systolic pressure is normal. The right ventricular systolic pressure is 13 mmHg. Normal right atrial pressure. There is no evidence of pulmonary hypertension. Great Vessels All visible segments of the aorta are normal in size. The pulmonary artery was not well visualized. Venous The inferior vena cava is normal in size and collapses greater than 50% with inspiration. Pericardium/Pleural There is no evidence of pericardial effusion. Prior Study Comparison Changes noted compared to prior study dated: 06/06/2017. mild LVH noted on this study Measurements 2D Linear Measurements IVSd: 1.32 0.6-0.9/0.6-1.0 cm LVIDd: 4.57 3.9-5.3/4.2-5.9 cm LVIDd Index: 2.13 2.4-3.2/2.2-3.1 cm/m2 LVIDs: 2.92 2.0-3.6 cm LVPWd: 1.25 0.7-1.1 cm Ao Root: 3.60 2.1-3.5 cm LA Diam: 3.50 2.7-3.8/3.0-4.0 cm LAIDs Index: 1.63 1.5-2.3 cm/m2 LV Mass: 279.29 67-162/88-224 g LV Mass Index: 129.90 43-95/49-115 g/m2 LVOT Diam: 2.40 3.0+(-)1.3 cm Mitral Valve MV Pk E: 0.59 MV PK A: 0.75 MV Decel Time: 266.00 E/A: 0.80 E'Lateral: 7.18 E'Medial: 4.90 E/E' Med: 12.00 E/E' Lat: 8.20 PHT: 78.00 MVA PHT: 2.82 Decel [place]: 2.21 Aortic Valve AoV Pk Mina: 1.24 AoV Mn Mina: 0.80 AoV VTI: 0.30 AoV Pk Grad: 6.00 Aov Mn Grad: 3.00 DEVAN Cont.VTI: 3.47 LVOT LVOT Pk Mina: 0.87 LVOT Mn Mina: 0.55 LVOT VTI: 0.23 LVOT Pk Grad: 3.00 LVOT Mn Grad: 2.00 LVOT Diam: 2.40 LVOT Area: 4.52 Diastolic Function MV Pk E: 0.59 MV Pk A: 0.75 E/A: 0.80 E'Medial: 4.90 E/E' Med: 12.00 E' Laterial: 7.18 E/E' Lat: 8.20 Tricuspid Valve TR Pk Mina: 1.58 TR Pk Grad: 10.00 RA Press: 3.00 RVSP: 13.00 Great Vessels Aorta Ao Root-2D: 3.60 2.0-3.7 cm Ao Asc: 3.50 2.1-3.4 cm Pulmonary Valve PV Pk Mina: 0.93 Peak PV Grad: 3.00 Updated in Other Vendor System with Status of Final Kanu Rendon MD electronically signed on 09/20/2021 4:14:02 PM with status of Final
== END ==
LOC: HO.CARD 09:27
PROVIDERS: PCP Internal Medicine; Visit Provider Internal Medicine
DX: I25.10 Atherosclerotic heart disease of native coronary artery without angina pectoris (principal)
CPT/HCPCS: 93306

== ENCOUNTER → 2021-09-29 12:46 | Outpatient (BNVA) | payer MEDICARE, OTHER, SELFPAY | PROVIDERS: PCP Internal Medicine; Referring Provider Internal Medicine; Visit Provider Internal Medicine | DX: I25.10 Atherosclerotic heart disease of native coronary artery without angina pectoris (principal); R94.39 Abnormal result of other cardiovascular function study; I10 Essential (primary) hypertension; E78.5 Hyperlipidemia, unspecified | CPT/HCPCS: 93005; 99212 ==

== ENCOUNTER 2021-10-25 08:36 | Inpatient (IN) | payer MEDICARE, OTHER, SELFPAY ==
[2021-10-25] VITALS (8 sets, daily range): BP systolic 100–162; BP diastolic 43–74; PULSE 74–88; RESP 14–18; TEMP 36.5–36.6; O2SAT 94–99; BMI 25.0
--- NOTE | 2021-10-25 | ECG_ITS ---
Test Reason : ABD PAIN Blood Pressure : / mmHG Vent. Rate : 081 BPM Atrial Rate : 081 BPM P-R Int : 176 ms QRS Dur : 074 ms QT Int : 382 ms P-R-T Axes : 040 006 047 degrees QTc Int : 443 ms Normal sinus rhythm Normal ECG When compared with ECG of 04-SEP-2020 11:08, WA interval has shortened. Referred By: Generic ED Physician Electronically Signed By:Jairo Andrew
--- NOTE | ~2021-10-25 | XR_ITS ---
EXAMINATION: XR ABDOMEN KUB CLINICAL INDICATION: Ileus reevaluation COMPARISON: CT abdomen pelvis 10/25/2021 TECHNIQUE: AP view of the abdomen. FINDINGS: Large volume of stool in the colon without evidence for bowel obstruction or distention of the small bowel. There are surgical clips in the pelvis and there is advanced degenerative change in the lumbar spine. There are vascular calcifications observed in the left upper quadrant. XR/XR KUB IMPRESSION: Large stool burden within the colon. No evidence for bowel obstruction at this time.
--- NOTE | ~2021-10-25 | CT_ITS ---
EXAMINATION: CT ABDOMEN AND PELVIS WITH CONTRAST CLINICAL INFORMATION: Diffuse abdominal pain. Nausea. History of small bowel obstruction. COMPARISON: CT scan of 08/17/[address] scans dated back to 05/16/2014. TECHNIQUE: Multidetector volumetric images were obtained from the superior aspect of the liver through the pubic symphysis following administration 85 mL of Omnipaque 350 intravenous contrast. Sagittal and coronal reformatted images were obtained on the technologist's workstation. Oral contrast: No This CT examination was performed using dose optimization techniques as appropriate, variously including the following: *Automated exposure control *Adjustment of mA and/or kV according to patient size (this includes techniques or standardized protocols for targeted exams where dose is matched to indication/reason for exam; i.e. extremities or head) *Use of iterative reconstruction technique DLP: 622 mGy-cm FINDINGS: LUNG BASES: The visualized lung bases are unremarkable. Coarse diaphragmatic pleural calcification is noted at the right lung base. LIVER, GALLBLADDER, AND BILIARY TREE: The liver is normal in size, shape, and attenuation. No focal hepatic lesion or biliary ductal dilatation is present. The gallbladder is unremarkable with no evidence of radiopaque gallstones, gallbladder wall thickening, or obvious pericholecystic inflammatory changes. PANCREAS: Mild fatty atrophy of the pancreas. No focal pancreatic mass. No pancreatic ductal dilatation. No evidence of peripancreatic stranding or fluid. SPLEEN: Unremarkable. ADRENAL GLANDS: Stable appearance of the bilateral adrenal glands with nodular thickening, findings are stable since previous CT of 2013. KIDNEYS AND URETERS: The kidneys are normal in size, shape, and attenuation. No hydronephrosis, hydroureter, or calculi seen. No perinephric stranding. A 4 cm hypodense lesion in the lower pole of the right kidney anteriorly has mildly increased in size when compared to previous CT of 11/03/2018 (3.6 cm) representing a cyst. A 0.7 cm low-attenuation lesion in the bky-cx-qnaao right kidney posteriorly is also stable since previous multiple CT scans and statistically likely represents a cyst as well. No further imaging follow-up of the right renal cyst is recommended. BLADDER: Significantly decompressed and therefore not optimally evaluated. GASTROINTESTINAL TRACT: The stomach is decompressed. There is a small hiatal hernia. Multiple dilated fluid-filled small bowel loops are noted without definite transition zone. In the pzq-qu-tqent central abdomen, there is a decompressed segment of the small bowel with dilatation of bowel proximal and distal to this segment (series 5 images 19/07 through 19/12/1989). The terminal ileum is relatively narrow in caliber. Maximum diameter of the dilated small bowel is 4 cm. The colon is normal in caliber. No evidence of colonic wall thickening or pericolonic fat stranding. An appendix is not clearly seen; however, there are no inflammatory changes in the expected location of the appendix. Scattered colonic diverticula are noted. Rueiuvle-yq-enbqa stool burden in the colon. No evidence of intestinal pneumatosis. PERITONEAL CAVITY: There is no evidence of free intraperitoneal air or fluid. ABDOMINAL WALL: Small fat-containing left inguinal hernia is stable since previous studies. LYMPH NODES: A 1.3 x 1.6 cm lymph node anterior to the left renal vein is a stable finding since multiple previous CTs dated back to 2013. Scattered subcentimeter retroperitoneal lymph nodes are noted. VASCULAR: The aortoiliac vessels are normal in caliber. There is fploueic-mh-hxkfjtpik calcific atherosclerosis of the aortoiliac vessels. PELVIC VISCERA: Unremarkable. OSSEOUS STRUCTURES: No acute or suspicious osseous abnormality is noted. Diffuse degenerative changes in the visualized spine. There is severe disc space narrowing at L3-L4 with vacuum disc phenomena and endplate sclerotic endplate marrow changes. Facet arthropathy is noted in the lower lumbar spine. CT/CT abdomen pelvis w con IMPRESSION: Multiple dilated fluid-filled small bowel loops as described above without definite single zone of transition. A collapsed small bowel loop is noted in the central abdomen with dilatation proximal and distal to this segment, somewhat similar findings are seen on several previous CT scans. The findings likely reflect partial small bowel obstruction or ileus. Air and stool is noted throughout the normal caliber colon. No evidence of intestinal pneumatosis, free intraperitoneal air or fluid. Other stable chronic findings as described above.
[2021-10-25 09:22] LABS: MANUAL DIFF FLAG NO
[2021-10-25 09:23] LABS: Basophils Percent Auto 0.3 % (0-2); Eosinophils Absolute Auto 0.2 X10*3/uL (0.0-0.4); Eosinophils Percent Auto 1.9 % (0-4); Hematocrit 47.3 % (42.0-52.0); Hemoglobin 16.1 g/dl (14.0-18.0); Imm Gran Abs Auto 0.05 X10*3/uL (0.00-0.03); Imm Gran Pct Auto 0.4 % (0.0-0.4); Lymphocytes Absolute Auto 2.1 X10*3/uL (1.2-4.9); Lymphocytes Percent Auto 16.1 % (20-40); Mean Corpuscular Hemoglobin 29.9 pg (27.0-33.0); Mean Corpuscular Volume 87.8 fL (80.0-98.0); Mean Platelet Volume 10.1 fL (9.4-12.4); Monocytes Absolute Auto 0.9 X10*3/uL (0.1-1.2); Monocytes Percent Auto 6.8 % (2-11); Neutrophils Absolute Auto 9.5 x10*3/uL (2.0-8.3); Neutrophils Percent Auto 74.5 % (45-73); Platelet Count 259 X10*3/uL (160-400); Red Blood Count 5.39 X10*6/uL (4.60-5.80); Red Cell Distribution Width 12.7 % (11.0-16.0); White Blood Count 12.7 X10*3/uL (4.8-10.8)
[2021-10-25 09:36] LABS: Anion Gap 11 (12-20); Blood Urea Nitrogen 21 mg/dL (9-16); Calcium 9.5 mg/dL (8.4-10.2); Carbon Dioxide 24 mmol/L (22-29); Chloride 107 mmol/L (96-108); Estimated Glomerular Filt Rate > 60; Glucose Random 131 mg/dL (60-115); Potassium 4.3 mmol/L (3.3-5.1); Sodium 138 mmol/L (135-145)
[2021-10-25 11:30] LABS: INTERNATIONAL NORM RATIO 1.1 (0.9-1.1); Prothrombin Time 12.2 SEC (9.9-13.0)
[2021-10-25] MEDS: iohexoL 350 MG/ML 100 ML INFUS..BTL 85 ML IV (11:37)
--- NOTE | 2021-10-25 11:44 | ED.ABDPAIN ---
HPI - Abdominal Pain General Chief Complaint: Abdominal Pain Stated Complaint: Abd pain Time Seen by Provider: 10/25/21 10:45 Source: patient Mode of arrival: ambulatory Limitations: no limitations History of Present Illness HPI narrative: 86-year-old male with a history of GERD, obstructive sleep apnea, coronary artery disease, diabetes, chronic UTIs here with reports of generalized abdominal pain since last evening with nausea. No vomiting. No fevers or chills. Patient has small bowel movement at 03:00 this morning but it was not his normal bowel movement. Patient has chronic urinary incontinence and does not feel like this is any different from his baseline. Related Data Home Medications Medication Instructions Recorded Confirmed docusate sodium 100 mg capsule 100 mg PO BID PRN 10/25/21 10/25/21 glucosamine-chondroitin 250 mg-200 2 tab PO DAILY 10/25/21 10/25/21 mg tablet isosorbide mononitrate 30 mg 30 mg PO DAILY@1700 10/25/21 10/25/21 tablet,extended release 24 hr Previous Rx's Medication Instructions Recorded aspirin 81 mg tablet,delayed 81 mg PO DAILY #90 tab 08/06/20 release (Enteric Coated Aspirin) metoprolol tartrate 25 mg tablet 25 mg PO BID #180 tab 08/16/21 lisinopril 5 mg tablet 5 mg PO DAILY #90 tab 09/29/21 rosuvastatin 10 mg tablet (Crestor) 10 mg PO DAILY #90 tab 10/05/21 Allergies Allergy/AdvReac Type Severity Reaction Status Date / Time diphenhydramine AdvReac Intermediate Hallucinati Verified 09/29/21 12:54 [From Benadryl] ons Review of Systems Denies Abnormal speech present Physical Exam Vital Signs: Vital Signs: Last Vital Signs Temp 97.7 F 10/25/21 13:43 Pulse 78 10/25/21 13:43 Resp 16 10/25/21 13:43 BP 135/69 10/25/21 13:43 Pulse Ox 98 10/25/21 13:43 BMI result Body Mass Index 25.0 Const: General: cooperative, healthy appearing, comfortable and no acute distress Orientation/consciousness: patient oriented x3 Limitations: no limitations HENMT: Head: Yes normal to inspection Ears: hearing grossly normal bilaterally and TM's normal bilaterally General nose exam: Normal external nose present Face and sinus: Yes normal facial exam Mouth: Normal oral and palatal mucosa present Throat: Yes posterior oropharynx normal, Yes tonsils normal and Yes uvula midline Eyes: General: appearance normal, both eyes and all related structures Pupils: Equal, round and reactive pupils present Neck: Neck: Yes normal visual inspection, Yes full ROM, Yes no lymphadenopathy and Yes no meningeal signs Chest: Chest palpation & inspection: normal inspection of the chest Resp: Effort & Inspection: normal respiratory effort Auscultation: clear to auscultation bilaterally Cardio: Rate: regular rate Rhythm: regular rhythm Peripheral pulses: Peripheral pulses 2+ throughout GI: Inspection: Yes normal to inspection Palpation (GI): Tenderness to palpation present (GI) (diffusely tender, no rebound or guarding ) and Other GI palpation findings present (abdomen distended) Auscultation: normal bowel sounds Back/Spine/Pelvis: Thoracic/Lumbar Spine: thoracic and lumbar spine normal to inspection Skin: General skin exam: no rashes or lesions noted Neuro: General: patient oriented x3, no meningeal signs, no focal motor deficits and normal sensation to monofilament Cranial nerves: Yes Equal, round and reactive pupils present Cognition (Neuro): normal cognition Speech: No Abnormal speech present Gait exam (Neuro): Normal gait present Motor exam (neuro): 5/5 motor strength present throughout Extrem: General: Yes normal to inspection Course Course Course Narrative: 86-year-old male here with diffuse abdominal pain with bloating and nausea since last evening. On exam has diffuse tenderness with no rebound or guarding. Will check labs, UA, CT, provide analgesia. 1300- CT AP IMPRESSION: Multiple dilated fluid-filled small bowel loops as described above without definite single zone of transition. A collapsed small bowel loop is noted in the central abdomen with dilatation proximal and distal to this segment, somewhat similar findings are seen on several previous CT scans. The findings likely reflect partial small bowel obstruction or ileus. Air and stool is noted throughout the normal caliber colon. No evidence of intestinal pneumatosis, free intraperitoneal air or fluid. ? Other stable chronic findings as described above. -call out to General surgery to discuss for admission 1330-Spoke to Dr Radnle. Hold NGT. Admit to medicine service. Patient having continued pain. Will repeat dose of morphine. Call out to medicine to discuss. 1400-Spoke to medicine who will admit patient. MDM - Abdominal Pain Medical Records Attestation: I reviewed the patient's medical records. Lab Data Attestation: I reviewed the patient's lab results. Result diagrams: 10/25/21 09:10 10/25/21 09:10 Labs: Lab Results 10/25/21 10/25/21 10/25/21 Range/Units 09:10 09:10 11:17 WBC 12.7 H (4.8-10.8) X10*3/uL RBC 5.39 (4.60-5.80) X10*6/uL Hgb 16.1 (14.0-18.0) g/dl Hct 47.3 (42.0-52.0) % MCV 87.8 (80.0-98.0) fL MCH 29.9 (27.0-33.0) pg MCHC 34.0 (31.0-36.0) g/dl RDW 12.7 (11.0-16.0) % Plt Count 259 (160-400) X10*3/uL MPV 10.1 (9.4-12.4) fL Immature Gran % (Auto) 0.4 (0.0-0.4) % Neut % (Auto) 74.5 H (45-73) % Lymph % (Auto) 16.1 L (20-40) % [place] % (Auto) 6.8 (2-11) % Eos % (Auto) 1.9 (0-4) % Baso % (Auto) 0.3 (0-2) % Lymph # (Auto) 2.1 (1.2-4.9) X10*3/uL [place] # (Auto) 0.9 (0.1-1.2) X10*3/uL Eos # (Auto) 0.2 (0.0-0.4) X10*3/uL Baso # (Auto) 0.0 (0.0-0.2) X10*3/uL Abs Immat Gran (auto) 0.05 H (0.00-0.03) X10*3/uL Absolute Neuts (auto) 9.5 H (2.0-8.3) x10*3/uL Absolute Nucleated RBC 0.000 (0.0-0.012) X10*3/uL Nucleated RBC % (auto) 0.0 (0.0-0.2) /100WBC PT 12.2 (9.9-13.0) SEC INR 1.1 (0.9-1.1) Sodium 138 (135-145) mmol/L Potassium 4.3 (3.3-5.1) mmol/L Chloride 107 (96-108) mmol/L Carbon Dioxide 24 (22-29) mmol/L Anion Gap 11 L (12-20) BUN 21 H (9-16) mg/dL Creatinine 1.12 (0.5-1.4) mg/dL Estim Creat Clear Calc 56.0 Estimated GFR > 60 Random Glucose 131 H (60-115) mg/dL Lactic Acid (0.5-2.0) mmol/L Calcium 9.5 (8.4-10.2) mg/dL Total Bilirubin (0.0-1.0) mg/dL Direct Bilirubin (0.0-0.5) mg/dL AST (5-37) U/L ALT (0-40) U/L Alkaline Phosphatase (39-117) U/L Troponin I High Sens (<3.5-35.0) ng/L Total Protein (6.5-8.0) g/dL Albumin (3.5-5.0) g/dL COVID-19 ([facility]) (Negative) COVID-19 Clin Com 10/25/21 10/25/21 10/25/21 Range/Units 11:17 11:17 11:17 WBC (4.8-10.8) X10*3/uL RBC (4.60-5.80) X10*6/uL Hgb (14.0-18.0) g/dl Hct (42.0-52.0) % MCV (80.0-98.0) fL MCH (27.0-33.0) pg MCHC (31.0-36.0) g/dl RDW (11.0-16.0) % Plt Count (160-400) X10*3/uL MPV (9.4-12.4) fL Immature Gran % (Auto) (0.0-0.4) % Neut % (Auto) (45-73) % Lymph % (Auto) (20-40) % [place] % (Auto) (2-11) % Eos % (Auto) (0-4) % Baso % (Auto) (0-2) % Lymph # (Auto) (1.2-4.9) X10*3/uL [place] # (Auto) (0.1-1.2) X10*3/uL Eos # (Auto) (0.0-0.4) X10*3/uL Baso # (Auto) (0.0-0.2) X10*3/uL Abs Immat Gran (auto) (0.00-0.03) X10*3/uL Absolute Neuts (auto) (2.0-8.3) x10*3/uL Absolute Nucleated RBC (0.0-0.012) X10*3/uL Nucleated RBC % (auto) (0.0-0.2) /100WBC PT (9.9-13.0) SEC INR (0.9-1.1) Sodium (135-145) mmol/L Potassium (3.3-5.1) mmol/L Chloride (96-108) mmol/L Carbon Dioxide (22-29) mmol/L Anion Gap (12-20) BUN (9-16) mg/dL Creatinine (0.5-1.4) mg/dL Estim Creat Clear Calc Estimated GFR Random Glucose (60-115) mg/dL Lactic Acid 1.8 (0.5-2.0) mmol/L Calcium (8.4-10.2) mg/dL Total Bilirubin 0.9 (0.0-1.0) mg/dL Direct Bilirubin 0.4 (0.0-0.5) mg/dL AST 17 (5-37) U/L ALT 21 (0-40) U/L Alkaline Phosphatase 82 (39-117) U/L Troponin I High Sens 14.0 (<3.5-35.0) ng/L Total Protein 6.6 (6.5-8.0) g/dL Albumin 4.1 (3.5-5.0) g/dL COVID-19 ([facility]) (Negative) COVID-19 Clin Com 10/25/21 Range/Units 13:37 WBC (4.8-10.8) X10*3/uL RBC (4.60-5.80) X10*6/uL Hgb (14.0-18.0) g/dl Hct (42.0-52.0) % MCV (80.0-98.0) fL MCH (27.0-33.0) pg MCHC (31.0-36.0) g/dl RDW (11.0-16.0) % Plt Count (160-400) X10*3/uL MPV (9.4-12.4) fL Immature Gran % (Auto) (0.0-0.4) % Neut % (Auto) (45-73) % Lymph % (Auto) (20-40) % [place] % (Auto) (2-11) % Eos % (Auto) (0-4) % Baso % (Auto) (0-2) % Lymph # (Auto) (1.2-4.9) X10*3/uL [place] # (Auto) (0.1-1.2) X10*3/uL Eos # (Auto) (0.0-0.4) X10*3/uL Baso # (Auto) (0.0-0.2) X10*3/uL Abs Immat Gran (auto) (0.00-0.03) X10*3/uL Absolute Neuts (auto) (2.0-8.3) x10*3/uL Absolute Nucleated RBC (0.0-0.012) X10*3/uL Nucleated RBC % (auto) (0.0-0.2) /100WBC PT (9.9-13.0) SEC INR (0.9-1.1) Sodium (135-145) mmol/L Potassium (3.3-5.1) mmol/L Chloride (96-108) mmol/L Carbon Dioxide (22-29) mmol/L Anion Gap (12-20) BUN (9-16) mg/dL Creatinine (0.5-1.4) mg/dL Estim Creat Clear Calc Estimated GFR Random Glucose (60-115) mg/dL Lactic Acid (0.5-2.0) mmol/L Calcium (8.4-10.2) mg/dL Total Bilirubin (0.0-1.0) mg/dL Direct Bilirubin (0.0-0.5) mg/dL AST (5-37) U/L ALT (0-40) U/L Alkaline Phosphatase (39-117) U/L Troponin I High Sens (<3.5-35.0) ng/L Total Protein (6.5-8.0) g/dL Albumin (3.5-5.0) g/dL COVID-19 ([facility]) Negative (Negative) COVID-19 Clin Com See Note ECG Data Attestation: I personally reviewed and interpreted this ECG as follows: ECG interpretation date: 10/25/21 ECG interpretation time: 09:01 Interpretation: Normal sinus rhythm with a rate 81, normal IN, normal QRS, normal QT nonspecific ST changes in the v1 nd avl Discharge Plan Discharge Clinical Impression: Abdominal pain Patient Disposition: Admitted As Inpatient [facility] Past Medical History Attestation statement: The following information was validated with the patient. Source: old records reviewed and nursing notes reviewed Medical History Abnormal myocardial perfusion study Bladder neck contracture BPH (benign prostatic hyperplasia) Colon cancer Constipation Coronary artery disease Erectile dysfunction Essential hypertension GERD (gastroesophageal reflux disease) Hyperlipidemia, unspecified Obstructive sleep apnea Overweight (BMI 25.0-29.9) Peripheral vascular disease Prostate cancer Rectal cancer Small bowel obstruction Type 2 diabetes mellitus with hyperglycemia Urinary incontinence Surgical History History of appendectomy History of bladder surgery (~01/04/18) History of carpal tunnel release History of colectomy History of prostate surgery (~2017) Family History Family History Father Pancreatic cancer Mother No problems noted. Brother Liver cancer Social History Social History Household Members: Spouse Housing: House Are you a primary long term care administrator to a significant other at home: Yes (Cares for his with [employer] helping) Do you presently have visiting nurse or other home services: No Alcohol intake: unknown Patient Tobacco Use Status: Former Tobacco user Advance Directives: Yes Advance Directives on File: Yes Advance Directives Date on File: 09/29/20 service: Yes ([employer]) Current occupational status: retired
[2021-10-25 11:45] LABS: Alanine Aminotransferase 21 U/L (0-40); Albumin Level 4.1 g/dL (3.5-5.0); Alkaline Phosphatase 82 U/L (39-117); Aspartate Amino Transferase 17 U/L (5-37); Bilirubin Direct 0.4 mg/dL (0.0-0.5); Bilirubin Total 0.9 mg/dL (0.0-1.0); Total Protein 6.6 g/dL (6.5-8.0)
[2021-10-25] MEDS: Morphine Sulfate 4 MG/ML CARTRIDGE IVPUSH (11:46)
[2021-10-25 12:07] LABS: Lactic Acid 1.8 mmol/L (0.5-2.0)
--- NOTE | 2021-10-25 13:42 | P.CONGS_ITS ---
History of Present Illness Consult details Consult date: 10/25/21 Reason for consult: abdominal pain Narrative: 86-year-old male patient with a prior history of rectal CA status post low anterior resection performed by Dr. Soriano and a prior history of small- bowel obstructions now presenting with complaints of abdominal pain, distension, nausea without vomiting, and decreased bowel movements. The pain was stronger yesterday but has persisted therefore he presented to the emergency department. He reports a small bowel movement which was very hard at 03:00 o'clock this morning. He presented to the emergency department was noted to have an elevated WBC. CT of the abdomen and pelvis revealed dilated loops of small bowel with a possible transition point in the distal ileum suggestive of a small-bowel obstruction. His colon is full stool down to the rectal vault. Review of Systems Constitutional: Constitutional: Denies chills, Denies fever(s), Denies headache(s) and Reports poor appetite ENT: Denies dizziness and Denies headache(s) Cardiovascular: Cardiovascular: Denies chest pain, Denies rapid heart rate, Denies palpitations and Denies slow heart rate Respiratory: Respiratory: Denies chest congestion, Denies cough, Denies pain on inspiration and Denies wheezing Gastrointestinal: Gastrointestinal: Reports abdominal pain, Reports bloating, Reports change in stool character, Denies constipation, Denies diarrhea, Reports nausea, Denies vomiting and Denies hematemesis Musculoskeletal: Musculoskeletal: Denies back pain, Denies arthralgias, Denies joint swelling and Denies numbness Integumentary/Breasts: Skin/Breast: Denies change in pigmentation, Denies erythema and Denies rash Neurologic: Denies dizziness, Denies headache(s) and Denies numbness Psychiatric: Psychiatric: Denies anxiety and Denies depression Endocrine: Endocrine: Denies palpitations Hematologic/Lymphatic: Hematologic/Lymphatic: Denies easy bleeding, Denies easy bruising and Denies lymphadenopathy Allergic/Immunologic: Allergic/Immunologic: Denies wheezing PMFSH Past Medical History Medical History Abnormal myocardial perfusion study Bladder neck contracture BPH (benign prostatic hyperplasia) Colon cancer Constipation Coronary artery disease Erectile dysfunction Essential hypertension GERD (gastroesophageal reflux disease) Hyperlipidemia, unspecified Obstructive sleep apnea Overweight (BMI 25.0-29.9) Peripheral vascular disease Prostate cancer Rectal cancer Small bowel obstruction Type 2 diabetes mellitus with hyperglycemia Urinary incontinence Family History Family History Father Pancreatic cancer Mother No problems noted. Brother Liver cancer Surgical History Surgical History History of appendectomy History of bladder surgery (~01/04/18) History of carpal tunnel release History of colectomy History of prostate surgery (~2016) Social History Social History Household Members: Spouse Housing: House Are you a primary direct care professional to a significant other at home: Yes (Cares for his with [employer] helping) Do you presently have visiting nurse or other home services: No Alcohol intake: unknown Patient Tobacco Use Status: Former Tobacco user Advance Directives: Yes Advance Directives on File: Yes Advance Directives Date on File: 09/29/20 service: Yes ([employer]) Current occupational status: retired [employer] Allergies Allergy/AdvReac Type Severity Reaction Status Date / Time diphenhydramine AdvReac Intermediate Hallucinati Verified 09/29/21 12:54 [From Benadryl] ons Active Medications: Current Medications Pharmacy Consult (Consult Rx Perform Med Rec) 1 each MISCELLANE ONCE PRN PRN Reason: Consult order Physical Exam Vital Signs: Vital Signs: Last Vital Signs Temp 97.8 F 10/25/21 08:53 Pulse 84 10/25/21 11:03 Resp 14 10/25/21 11:03 BP 107/43 L 10/25/21 11:03 Pulse Ox 98 10/25/21 11:03 BMI result Body Mass Index 25.0 Const: General: cooperative, no acute distress and well developed Nutritional Appearance: well nourished Orientation/consciousness: patient oriented x3 Limitations: no limitations HENMT: Head: Yes normocephalic and Yes atraumatic Ears: hearing grossly normal bilaterally Resp: Effort & Inspection: normal respiratory effort, no audible wheezes, no cough and no respiratory distress Auscultation: clear to auscultation bilaterally Cardio: Jugular venous distension: no JVD Rate: regular rate GI: Inspection: Yes distended Palpation (GI): Soft to palpation, nontender, no guarding and not rigid Percussion: Yes tympanic to percussion Auscultation: Absent bowel sounds Rectal Exam - Male: Yes deferred Skin: General skin exam: no rashes or lesions noted Neuro: General: patient oriented x3 Extrem: General: Yes no clubbing, cyanosis or edema Results Labs Result diagrams: 10/25/21 09:10 10/25/21 09:10 Labs: Abnormal lab results 10/25/21 10/25/21 Range/Units 09:10 09:10 WBC 12.7 H (4.8-10.8) X10*3/uL Neut % (Auto) 74.5 H (45-73) % Lymph % (Auto) 16.1 L (20-40) % Abs Immat Gran (auto) 0.05 H (0.00-0.03) X10*3/uL Absolute Neuts (auto) 9.5 H (2.0-8.3) x10*3/uL Anion Gap 11 L (12-20) BUN 21 H (9-16) mg/dL Random Glucose 131 H (60-115) mg/dL Short CBC 10/25/21 Range/Units 09:10 WBC 12.7 H (4.8-10.8) X10*3/uL Hgb 16.1 (14.0-18.0) g/dl Hct 47.3 (42.0-52.0) % Plt Count 259 (160-400) X10*3/uL BMP 10/25/21 09:10 Sodium 138 Potassium 4.3 Chloride 107 Carbon Dioxide 24 BUN 21 H Creatinine 1.12 Calcium 9.5 Liver Function 10/25/21 Range/Units 11:17 Total Bilirubin 0.9 (0.0-1.0) mg/dL Direct Bilirubin 0.4 (0.0-0.5) mg/dL AST 17 (5-37) U/L ALT 21 (0-40) U/L Alkaline Phosphatase 82 (39-117) U/L Albumin 4.1 (3.5-5.0) g/dL All other labs normal. Assessment and Plan (1) Abdominal pain: Status: Acute 86-year-old male patient with multiple medical problems presenting with a recent history of abdominal pain and nausea since yesterday. Patient has a past history of rectal cancer and bladder neck cancer. He underwent a low anterior resection followed by radiation therapy. He has a history of prior bowel obstructions and current symptoms appear similar to the previous episodes. On examination the patient does have abdominal distension with tympany to percuss ion. CT of the abdomen and pelvis appears similar to previous CT examinations with dilated loops of small bowel with a possible transition point low in the pelvis at the terminal ileum. There is gas and stool into the colon a large amount of stool in the rectal vault. Findings may suggest ileus or partial small-bowel obstruction. His stomach is quite small without significant dilation there for nasogastric tube is probably unnecessary at this time. Patient reports feeling improved since last night. Procedures Date of Service Date of Service: 10/25/21
[2021-10-25 14:04] LABS: COVID-19 Test Negative (Negative)
[2021-10-25] MEDS: Morphine Sulfate 2 MG/ML CARTRIDGE IVPUSH (14:04)
--- NOTE | 2021-10-25 14:45 | PHA.MEDREC ---
Pharmacy Consult ? Medication Reconciliation Pharmacy has completed the medication reconciliation. Spoke with patient in ED. Pt did not take any of his medications today. He states he does not take his rosuvastatin on a regular basis.
--- NOTE | 2021-10-25 15:13 | PM.IMHP ---
History of Present Illness Date of Service: 10/25/21 Chief Complaint: abdominal pain ? 86-year-old male patient with multiple medical problems presenting with a recent history of abdominal pain and nausea since yesterday.? Patient has a past history of rectal cancer and bladder neck cancer.? He underwent a low anterior resection followed by radiation therapy.? He has a history of prior bowel obstructions and current symptoms appear similar to the previous episodes.? On examination the patient does have abdominal distension with tympany to percussion.? CT of the abdomen and pelvis appears similar to previous CT examinations with dilated loops of small bowel with a possible transition point low in the pelvis at the terminal ileum.? There is gas and stool into the colon a large amount of stool in the rectal vault.? Findings may suggest ileus or partial small-bowel obstruction.? seen in consult by surgery. Will admit medic Review of Systems Review of Systems: denies chest pain denies shortness of breath Denies nausea vomiting diarrhea PMFSH Medical History Abnormal myocardial perfusion study Bladder neck contracture BPH (benign prostatic hyperplasia) Colon cancer Constipation Coronary artery disease Erectile dysfunction Essential hypertension GERD (gastroesophageal reflux disease) Hyperlipidemia, unspecified Obstructive sleep apnea Overweight (BMI 25.0-29.9) Peripheral vascular disease Prostate cancer Rectal cancer Small bowel obstruction Type 2 diabetes mellitus with hyperglycemia Urinary incontinence Family History Father Pancreatic cancer Mother No problems noted. Brother Liver cancer Surgical History History of appendectomy History of bladder surgery (~01/04/18) History of carpal tunnel release History of colectomy History of prostate surgery (~2016) Social History Household Members: Spouse Housing: House Are you a primary ambulatory care nurse to a significant other at home: Yes (Cares for his with [employer] helping) Do you presently have visiting nurse or other home services: No Alcohol intake: unknown Patient Tobacco Use Status: Former Tobacco user Advance Directives: Yes Advance Directives on File: Yes Advance Directives Date on File: 09/29/20 service: Yes ([employer]) Current occupational status: retired Meds Allergies Allergy/AdvReac Type Severity Reaction Status Date / Time diphenhydramine AdvReac Intermediate Hallucinati Verified 09/29/21 12:54 [From Tereza] ons Active Medications: Current Medications Acetaminophen (Acetaminophen 325 Mg Tablet) 650 mg PO Q6H PRN PRN Reason: Pain, Mild (Pain Scale 1-3) Aspirin (Aspirin Enteric Coated 81 Mg Tablet.) 81 mg PO DAILY [facility] Atorvastatin Calcium (Atorvastatin Calcium 40 Mg Tablet) 40 mg PO DAILY [facility] Docusate Sodium (Docusate Sodium 100 Mg Capsule) 100 mg PO BID PRN PRN Reason: Constipation Enoxaparin Sodium (Enoxaparin Sodium 40 Mg/0.4 Ml Syringe) 40 mg SUBCUT Q24H [facility] Dextrose/Sodium Chloride (D51/2ns) 1,000 mls @ 100 mls/hr IVCONT .Q10H [facility] Isosorbide Mononitrate (Isosorbide Mononitrate 30 Mg Tab.Er.24h) 30 mg PO DAILY@1700 [facility]; Protocol Lisinopril (Lisinopril 5 Mg Tablet) 5 mg PO DAILY [facility]; Protocol Metoprolol Tartrate (Metoprolol Tartrate 25 Mg Tablet) 25 mg PO BID [facility]; Protocol Pharmacy Consult (Consult Rx Perform Med Rec) 1 each MISCELLANE ONCE PRN PRN Reason: Consult order Sodium Chloride (0.9 % Sodium Chloride Flush 3 Ml Syringe) 3 ml IVFLUSH QSHIFT [facility] Home Medications Medication Instructions Recorded Confirmed Last Taken Type docusate sodium 100 mg capsule 100 mg PO BID PRN 10/25/21 10/25/21 Unknown History glucosamine-chondroitin 250 mg-200 2 tab PO DAILY 10/25/21 10/25/21 10/24/21 History mg tablet isosorbide mononitrate 30 mg 30 mg PO DAILY@1700 10/25/21 10/25/21 10/24/21 History tablet,extended release 24 hr Physical Exam Vital Signs and Narrative: Vital Signs: Last Vital Signs Temp 97.7 F 10/25/21 13:43 Pulse 78 10/25/21 13:43 Resp 16 10/25/21 13:43 BP 135/69 10/25/21 13:43 Pulse Ox 98 10/25/21 13:43 BMI result Body Mass Index 25.0 Const: Other: resting comfortably, no acute distress HENMT: Other: oropharynx clear membranes moist Resp: Other: clear to auscultation bilaterally. No rales rhonchi whe Cardio: Other: no S4; positive S1-S2; no S3 murmurs rubs or gallops GI: Other: soft, mildly tympanitic quiet bowel sounds. There is no rebound or guarding appreciated Neuro: Other: cranial nerves 2-12 grossly intact as tested. Motor 5/5 all extremities. Sensation intact. Cognition appropriate Extrem: Other: no edema bilaterally Results Labs CBC and Chem 7: 10/25/21 09:10 10/25/21 09:10 Labs: Laboratory Results - last 24 hr 10/25/21 10/25/21 10/25/21 09:10 09:10 11:17 MCV 87.8 MCH 29.9 MCHC 34.0 RDW 12.7 Plt Count 259 MPV 10.1 Immature Gran % (Auto) 0.4 Neut % (Auto) 74.5 H Lymph % (Auto) 16.1 L [place] % (Auto) 6.8 Eos % (Auto) 1.9 Baso % (Auto) 0.3 Lymph # (Auto) 2.1 [place] # (Auto) 0.9 Eos # (Auto) 0.2 Baso # (Auto) 0.0 Abs Immat Gran (auto) 0.05 H Absolute Neuts (auto) 9.5 H Absolute Nucleated RBC 0.000 Nucleated RBC % (auto) 0.0 PT 12.2 INR 1.1 Anion Gap 11 L Estim Creat Clear Calc 56.0 Estimated GFR > 60 Random Glucose 131 H Lactic Acid Calcium 9.5 Total Bilirubin Direct Bilirubin AST ALT Alkaline Phosphatase Troponin I High Sens Total Protein Albumin COVID-19 ([facility]) COVID-19 Clin Com 10/25/21 10/25/21 10/25/21 11:17 11:17 11:17 MCV MCH MCHC RDW Plt Count MPV Immature Gran % (Auto) Neut % (Auto) Lymph % (Auto) [place] % (Auto) Eos % (Auto) Baso % (Auto) Lymph # (Auto) [place] # (Auto) Eos # (Auto) Baso # (Auto) Abs Immat Gran (auto) Absolute Neuts (auto) Absolute Nucleated RBC Nucleated RBC % (auto) PT INR Anion Gap Estim Creat Clear Calc Estimated GFR Random Glucose Lactic Acid 1.8 Calcium Total Bilirubin 0.9 Direct Bilirubin 0.4 AST 17 ALT 21 Alkaline Phosphatase 82 Troponin I High Sens 14.0 Total Protein 6.6 Albumin 4.1 COVID-19 ([facility]) COVID-19 Clin Com 10/25/21 13:37 MCV MCH MCHC RDW Plt Count MPV Immature Gran % (Auto) Neut % (Auto) Lymph % (Auto) [place] % (Auto) Eos % (Auto) Baso % (Auto) Lymph # (Auto) [place] # (Auto) Eos # (Auto) Baso # (Auto) Abs Immat Gran (auto) Absolute Neuts (auto) Absolute Nucleated RBC Nucleated RBC % (auto) PT INR Anion Gap Estim Creat Clear Calc Estimated GFR Random Glucose Lactic Acid Calcium Total Bilirubin Direct Bilirubin AST ALT Alkaline Phosphatase Troponin I High Sens Total Protein Albumin COVID-19 ([facility]) Negative COVID-19 Clin Com See Note Imaging Radiologist's Impressions: Impressions Abdomen/Pelvis CT 10/25/21 11:44 IMPRESSION: Multiple dilated fluid-filled small bowel loops as described above without definite single zone of transition. A collapsed small bowel loop is noted in the central abdomen with dilatation proximal and distal to this segment, somewhat similar findings are seen on several previous CT scans. The findings likely reflect partial small bowel obstruction or ileus. Air and stool is noted throughout the normal caliber colon. No evidence of intestinal pneumatosis, free intraperitoneal air or fluid. Other stable chronic findings as described above. Assessment and Plan (1) Ileus: Status: Acute (2) GERD (gastroesophageal reflux disease): Qualifiers: Esophagitis presence: without esophagitis Qualified Code(s): K21.9 - Gastro-esophageal reflux disease without esophagitis Status: Acute (3) Coronary artery disease: Qualifiers: Coronary Disease-Associated Artery/Lesion type: [place] artery [place] vs. transplanted heart: [place] heart Associated angina: without angina Qualified Code(s): I25.10 - Atherosclerotic heart disease of [place] coronary artery without angina pectoris Status: Acute (4) Type 2 diabetes mellitus with hyperglycemia: Qualifiers: Diabetes mellitus residential insulin use: without residential use Qualified Code(s): E11.65 - Type 2 diabetes mellitus with hyperglycemia Status: Acute 86-year-old fully vaccinated male presents with approximately 24 hours of lower abdominal pain similar to past ileuses. CT scan of abdomen and pelvis reviewed by surgery; recommend conservative therapies. 1.Abd pain/Ileus IVF's/pain management. Move to clear liquid diet as tolerated if OK with surgery. 2.CAD Asymptomatic. Continue Statin/BB/Nitrates. 3.HTN As per #2 Adjust as indicated 4.DMII Diet controlled at home. Cover with Sliding Scale. Lovenox Full Code . Quality Stroke Does the patient have a stroke diagnosis?: No VTE Prior VTE?: No VTE Risk Level:: Medical - moderate - high VTE Device Contraindication: Treatment Not Indicated VTE Drug Contraindication: N/A - Med Ordered
[2021-10-25] MEDS: Enoxaparin Sodium 40 MG/0.4 ML SYRINGE SUBCUT (16:49)
[2021-10-25] MEDS: Dextrose 5 % and 0.45 % NaCl 1,000 ML 100 ML IVCONT (16:51)
[2021-10-25] MEDS: Isosorbide Mononitrate 30 MG TAB.ER.24H PO (16:52)
[2021-10-25] MEDS: 0.9 % Sodium Chloride Flush 3 ML SYRINGE IVFLUSH (16:52)
[2021-10-25 20:36] LABS: Appearance Urine CLEAR; Color Urine YELLOW; Glucose Urine UA NEG (NEG); Leukocyte Esterase Urine NEG (NEG); Nitrite Urine NEG (NEG); PH 5.5 (5.0-8.0); Urine Blood NEG (NEG); Urine Ketones 5 MG/DL (NEG); Urine Protein TRACE MG/DL (NEG-TRACE)
[2021-10-25] MEDS: Metoprolol Tartrate 25 MG TABLET PO (22:09)
[2021-10-26] MEDS: Docusate Sodium 100 MG CAPSULE PO ×2 (00:17→21:02)
[2021-10-26] MEDS: Acetaminophen 325 MG TABLET 650 MG PO (00:18)
[2021-10-26 04:48] VITALS: BMI 24.5
[2021-10-26] MEDS: Dextrose 5 % and 0.45 % NaCl 1,000 ML 100 ML IVCONT ×2 (05:08→16:02)
[2021-10-26 06:20] LABS: MANUAL DIFF FLAG NO
[2021-10-26 06:30] LABS: Basophils Percent Auto 0.4 % (0-2); Eosinophils Absolute Auto 0.4 X10*3/uL (0.0-0.4); Eosinophils Percent Auto 5.5 % (0-4); Hematocrit 40.3 % (42.0-52.0); Hemoglobin 13.4 g/dl (14.0-18.0); Imm Gran Abs Auto 0.02 X10*3/uL (0.00-0.03); Imm Gran Pct Auto 0.3 % (0.0-0.4); Lymphocytes Absolute Auto 2.3 X10*3/uL (1.2-4.9); Lymphocytes Percent Auto 34.8 % (20-40); Mean Corpuscular HGB Conc 33.3 g/dl (31.0-36.0); Mean Corpuscular Volume 90.2 fL (80.0-98.0); Mean Platelet Volume 10.3 fL (9.4-12.4); Monocytes Absolute Auto 0.7 X10*3/uL (0.1-1.2); Monocytes Percent Auto 9.7 % (2-11); Neutrophils Absolute Auto 3.3 x10*3/uL (2.0-8.3); Neutrophils Percent Auto 49.3 % (45-73); Platelet Count 193 X10*3/uL (160-400); Red Blood Count 4.47 X10*6/uL (4.60-5.80); Red Cell Distribution Width 12.6 % (11.0-16.0); White Blood Count 6.7 X10*3/uL (4.8-10.8)
[2021-10-26 08:00] VITALS: BP 130/82; PULSE 54; RESP 17; TEMP 36; O2SAT 97
[2021-10-26 08:06] LABS: Alanine Aminotransferase 14 U/L (0-40); Albumin Level 3.3 g/dL (3.5-5.0); Alkaline Phosphatase 64 U/L (39-117); Anion Gap 8 (12-20); Aspartate Amino Transferase 15 U/L (5-37); Bilirubin Total 0.6 mg/dL (0.0-1.0); Blood Urea Nitrogen 20 mg/dL (9-16); Calcium 8.5 mg/dL (8.4-10.2); Carbon Dioxide 24 mmol/L (22-29); Chloride 110 mmol/L (96-108); Estimated Glomerular Filt Rate > 60; Glucose Fasting 103 mg/dL (60-99); Potassium 4.2 mmol/L (3.3-5.1); Sodium 138 mmol/L (135-145); Total Protein 5.3 g/dL (6.5-8.0)
[2021-10-26] MEDS: Aspirin Enteric Coated 81 MG TABLET.DR PO (08:47)
[2021-10-26] MEDS: Metoprolol Tartrate 25 MG TABLET PO ×2 (08:47→20:58)
[2021-10-26] MEDS: Atorvastatin Calcium 40 MG TABLET PO (08:47)
[2021-10-26] MEDS: lisinopriL 5 MG TABLET PO (08:47)
--- NOTE | 2021-10-26 09:46 | MHC.CM.PN ---
CM MET WITH PT WHO REPORTS HE LIVES WITH HIS AND IS INDEPENDENT WITH CARE PT REPORTS HE USES A [facility] AND NO OTHER DME PT DENIES HAVING IN HOME SERVICES PT REPORTS HIS AND DAUGHTER ARE HIS HCP AGENTS PT CONFIRMS HIS PCP IS [facility] DON DELIVERED CURRENT DC PLAN, HOME NO SERVICES [facility]
[2021-10-26 11:39] VITALS: BP 131/63; PULSE 50; RESP 20; TEMP 36.1; O2SAT 97
--- NOTE | 2021-10-26 14:22 | P.PNIM_ITS ---
Subjective Subjective Date of Service: 10/26/21 Interval History: Improved overnight. Small BM this morning. No abdomen pain Review of Systems Denies chest pain Denies shortness of breath Denies nausea vomiting diarrhea Physical Exam Vital Signs: Vital Signs: Last Vital Signs Temp 97.0 F 10/26/21 11:39 Pulse 50 10/26/21 11:39 Resp 20 10/26/21 11:39 BP 131/63 10/26/21 11:39 Pulse Ox 97 10/26/21 11:39 BMI result Body Mass Index 24.5 Const: Other: resting comfortably, no acute distress HENMT: Other: oropharynx clear membranes moist Resp: Other: clear to auscultation bilaterally. No rales rhonchi whe Cardio: Other: no S4; positive S1-S2; no S3 murmurs rubs or gallops GI: Other: soft, mildly tympanitic quiet bowel sounds. There is no rebound or guarding appreciated Neuro: Other: cranial nerves 2-12 grossly intact as tested. Motor 5/5 all extremities. Sensation intact. Cognition appropriate Extrem: Other: no edema bilaterally Objective Data Active Medications Acetaminophen (Acetaminophen 325 Mg Tablet) 650 mg PO Q6H PRN PRN Reason: Pain, Mild (Pain Scale 1-3) Last Admin: 10/26/21 00:18 Dose: 650 mg Documented by: ERICA Aspirin (Aspirin Enteric Coated 81 Mg Tablet.) 81 mg PO DAILY [facility] Last Admin: 10/26/21 08:47 Dose: 81 mg Documented by: ADELA Atorvastatin Calcium (Atorvastatin Calcium 40 Mg Tablet) 40 mg PO DAILY [facility] Last Admin: 10/26/21 08:47 Dose: 40 mg Documented by: ADELA Docusate Sodium (Docusate Sodium 100 Mg Capsule) 100 mg PO BID PRN PRN Reason: Constipation Last Admin: 10/26/21 00:17 Dose: 100 mg Documented by: ERICA Enoxaparin Sodium (Enoxaparin Sodium 40 Mg/0.4 Ml Syringe) 40 mg SUBCUT Q24H [facility] Last Admin: 10/25/21 16:49 Dose: 40 mg Documented by: ERICA Dextrose/Sodium Chloride (D51/2ns) 1,000 mls @ 100 mls/hr IVCONT .Q10H [facility] Last Admin: 10/26/21 12:00 Dose: Not Given Documented by: ADELA Non-Admin Reason: IV Running Isosorbide Mononitrate (Isosorbide Mononitrate 30 Mg Tab.Er.24h) 30 mg PO DAILY@1700 [facility]; Protocol Last Admin: 10/25/21 16:52 Dose: 30 mg Documented by: ERICA Lisinopril (Lisinopril 5 Mg Tablet) 5 mg PO DAILY [facility]; Protocol Last Admin: 10/26/21 08:47 Dose: 5 mg Documented by: ADELA Metoprolol Tartrate (Metoprolol Tartrate 25 Mg Tablet) 25 mg PO BID [facility]; Protocol Last Admin: 10/26/21 08:47 Dose: 25 mg Documented by: ADELA Pharmacy Consult (Consult Rx Perform Med Rec) 1 each MISCELLANE ONCE PRN PRN Reason: Consult order Sodium Chloride (0.9 % Sodium Chloride Flush 3 Ml Syringe) 3 ml IVFLUSH QSHIFT [facility] Last Admin: 10/26/21 08:56 Dose: Not Given Documented by: ADELA Non-Admin Reason: IV Running Labs CBC & Chem 7: 10/26/21 06:15 10/26/21 06:15 Labs: Laboratory Results - last 24 hr 10/25/21 10/26/21 10/26/21 20:31 06:15 06:15 MCV 90.2 MCH 30.0 MCHC 33.3 RDW 12.6 Plt Count 193 D MPV 10.3 Immature Gran % (Auto) 0.3 Neut % (Auto) 49.3 Lymph % (Auto) 34.8 [place] % (Auto) 9.7 Eos % (Auto) 5.5 H Baso % (Auto) 0.4 Lymph # (Auto) 2.3 [place] # (Auto) 0.7 Eos # (Auto) 0.4 Baso # (Auto) 0.0 Abs Immat Gran (auto) 0.02 Absolute Neuts (auto) 3.3 Absolute Nucleated RBC 0.000 Nucleated RBC % (auto) 0.0 Anion Gap 8 L Estim Creat Clear Calc 73.0 Estimated GFR > 60 Fasting Glucose 103 H Calcium 8.5 D Total Bilirubin 0.6 AST 15 ALT 14 Alkaline Phosphatase 64 D Total Protein 5.3 L Albumin 3.3 L Urine Color YELLOW Urine Appearance CLEAR Urine pH 5.5 Ur Specific [place] 1.020 Urine Protein TRACE Urine Glucose (UA) NEG Urine Ketones 5 Urine Blood NEG Urine Nitrite NEG Ur Leukocyte Esterase NEG Microbiology Microbiology Results: Microbiology 10/25/21 11:50 Blood Culture - Preliminary Blood - Venous No growth after 24 hours. 10/25/21 11:17 Blood Culture - Preliminary Blood - Venous No growth after 24 hours. Assessment and Plan (1) Ileus: Status: Acute (2) Abdominal pain: Status: Acute (3) Type 2 diabetes mellitus with hyperglycemia: Status: Acute Assessment and Plan: 86-year-old fully vaccinated male presents with approximately 24 hours of lower abdominal pain similar to past ileuses. CT scan of abdomen and pelvis reviewed by surgery; recommend conservative therapies. Doing better overnight, tolerating clear liquids 1.Abd pain/Ileus IVF's/pain management. Tolerated clears/full liquids, will advance diet to regular and follow overnight. If tolerates, likely DC in a.m. 2.CAD Asymptomatic. Continue Statin/BB/Nitrates. 3.HTN As per #2 Adjust as indicated 4.DMII Diet controlled at home. Cover with Sliding Scale. Lovenox Full Code . Quality Stroke Does the patient have a stroke diagnosis?: No VTE Prior VTE?: No VTE Risk Level:: Medical - moderate - high VTE Device Contraindication: Treatment Not Indicated VTE Drug Contraindication: N/A - Med Ordered
[2021-10-26 16:00] VITALS: BP 133/63; PULSE 57; RESP 17; TEMP 36.5; O2SAT 98
[2021-10-26] MEDS: Enoxaparin Sodium 40 MG/0.4 ML SYRINGE SUBCUT (16:02)
[2021-10-26] MEDS: 0.9 % Sodium Chloride Flush 3 ML SYRINGE IVFLUSH ×2 (16:03→20:59)
[2021-10-26] MEDS: Isosorbide Mononitrate 30 MG TAB.ER.24H PO (16:03)
[2021-10-26 20:00] VITALS: BP 126/59; PULSE 60; RESP 18; TEMP 36.4; O2SAT 97
[2021-10-26 20:58] VITALS: BP 126/59; PULSE 62
[2021-10-26 23:42] VITALS: BP 143/71; PULSE 52; RESP 17; TEMP 36.8; O2SAT 96
[2021-10-27] MEDS: Dextrose 5 % and 0.45 % NaCl 1,000 ML 100 ML IVCONT (01:47)
[2021-10-27 04:00] VITALS: BP 158/75; PULSE 72; RESP 17; TEMP 36.9; O2SAT 96
[2021-10-27 06:31] LABS: MANUAL DIFF FLAG NO
[2021-10-27 06:46] LABS: Basophils Percent Auto 0.3 % (0-2); Eosinophils Absolute Auto 0.3 X10*3/uL (0.0-0.4); Eosinophils Percent Auto 5.3 % (0-4); Hematocrit 37.2 % (42.0-52.0); Hemoglobin 12.8 g/dl (14.0-18.0); Imm Gran Abs Auto 0.01 X10*3/uL (0.00-0.03); Imm Gran Pct Auto 0.2 % (0.0-0.4); Lymphocytes Absolute Auto 2.2 X10*3/uL (1.2-4.9); Lymphocytes Percent Auto 37.8 % (20-40); Mean Corpuscular HGB Conc 34.4 g/dl (31.0-36.0); Mean Corpuscular Hemoglobin 30.6 pg (27.0-33.0); Mean Platelet Volume 10.4 fL (9.4-12.4); Monocytes Absolute Auto 0.6 X10*3/uL (0.1-1.2); Monocytes Percent Auto 9.4 % (2-11); Neutrophils Absolute Auto 2.8 x10*3/uL (2.0-8.3); Platelet Count 202 X10*3/uL (160-400); Red Blood Count 4.18 X10*6/uL (4.60-5.80); Red Cell Distribution Width 12.3 % (11.0-16.0); White Blood Count 5.9 X10*3/uL (4.8-10.8)
[2021-10-27 07:08] LABS: Alanine Aminotransferase 14 U/L (0-40); Albumin Level 3.3 g/dL (3.5-5.0); Alkaline Phosphatase 59 U/L (39-117); Anion Gap 8 (12-20); Aspartate Amino Transferase 15 U/L (5-37); Bilirubin Total 0.6 mg/dL (0.0-1.0); Blood Urea Nitrogen 12 mg/dL (9-16); Calcium 8.4 mg/dL (8.4-10.2); Carbon Dioxide 23 mmol/L (22-29); Chloride 113 mmol/L (96-108); Creatinine Clr Calc Pharmacy 80.5; Estimated Glomerular Filt Rate > 60; Glucose Fasting 105 mg/dL (60-99); Sodium 140 mmol/L (135-145); Total Protein 5.2 g/dL (6.5-8.0)
[2021-10-27 08:00] VITALS: BP 143/67; PULSE 65; RESP 20; TEMP 36; O2SAT 96
[2021-10-27] MEDS: Aspirin Enteric Coated 81 MG TABLET.DR PO (09:59)
[2021-10-27] MEDS: lisinopriL 5 MG TABLET PO (09:59)
[2021-10-27] MEDS: Atorvastatin Calcium 40 MG TABLET PO (10:00)
[2021-10-27] MEDS: Metoprolol Tartrate 25 MG TABLET PO (10:00)
[2021-10-27] MEDS: 0.9 % Sodium Chloride Flush 3 ML SYRINGE IVFLUSH (10:03)
[2021-10-27 12:00] VITALS: BP 141/65; PULSE 50; RESP 18; TEMP 36.2; O2SAT 96
--- NOTE | 2021-10-27 12:31 | PM.DS ---
DS: Providers Provider Date of Service: 10/27/21 Date of admission: 10/25/21 14:45 Primary care physician: Pro Nunn MD DS: Diagnosis Discharge Diagnosis (1) Ileus: Status: Acute (2) Abdominal pain: Status: Acute (3) Type 2 diabetes mellitus with hyperglycemia: Status: Acute DS: Summary Hospital Course Hospital Course: 86-year-old male patient with multiple medical problems presenting with a recent history of abdominal pain and nausea since yesterday.? Patient has a past history of rectal cancer and bladder neck cancer.? He underwent a low anterior resection followed by radiation therapy.? He has a history of prior bowel obstructions and current symptoms appear similar to the previous episodes.? On examination the patient does have abdominal distension with tympany to percussion.? CT of the abdomen and pelvis appears similar to previous CT examinations with dilated loops of small bowel with a possible transition point low in the pelvis at the terminal ileum.? There is gas and stool into the colon a large amount of stool in the rectal vault.? Findings may suggest ileus or partial small-bowel obstruction.? seen in consult by surgery.? Hospital Course Admitted..started on clear liquids and advanced over next 24hrs to regular diet without issue. Time Spent with Patient Time attestation: Total time spent providing and/or coordinating discharge services: Discharge coordination time: Greater than 30 minutes Quality: Stroke Does the patient have a stroke diagnosis?: No Physical Exam Vital Signs: Vital Signs: Last Vital Signs Temp 97.2 F 10/27/21 12:00 Pulse 50 10/27/21 12:00 Resp 18 10/27/21 12:00 BP 141/65 H 10/27/21 12:00 Pulse Ox 96 10/27/21 12:00 BMI result Body Mass Index 24.5 Const: Other: resting comfortably, no acute distress HENMT: Other: oropharynx clear membranes moist Resp: Other: clear to auscultation bilaterally. No rales rhonchi whe Cardio: Other: no S4; positive S1-S2; no S3 murmurs rubs or gallops GI: Other: Soft nontender nondistended with normoactive bowel sounds. There is no appreciable rebound or guarding Neuro: Other: cranial nerves 2-12 grossly intact as tested. Motor 5/5 all extremities. Sensation intact. Cognition appropriate Extrem: Other: no edema bilaterally DS: Data Data Completed and Pending Completed studies during hospitalization [Text1]: Procedures Dilation of Bladder Neck, Via Natural or Artificial Opening Endoscopic (09/30/20) Drainage of Bladder with Drainage Device, Via Natural or Artificial Opening Endoscopic (09/30/20) Insertion of Infusion Device into Superior Vena Cava, Percutaneous Approach (08/27/20) Ultrasonography of Superior Vena Cava, Guidance (08/27/20) Labs on day of discharge: Laboratory Results - last 24 hr 10/27/21 10/27/21 05:46 05:46 WBC 5.9 RBC 4.18 L Hgb 12.8 L Hct 37.2 L MCV 89.0 MCH 30.6 MCHC 34.4 RDW 12.3 Plt Count 202 MPV 10.4 Immature Gran % (Auto) 0.2 Neut % (Auto) 47.0 Lymph % (Auto) 37.8 [place] % (Auto) 9.4 Eos % (Auto) 5.3 H Baso % (Auto) 0.3 Lymph # (Auto) 2.2 [place] # (Auto) 0.6 Eos # (Auto) 0.3 Baso # (Auto) 0.0 Abs Immat Gran (auto) 0.01 Absolute Neuts (auto) 2.8 Absolute Nucleated RBC 0.000 Nucleated RBC % (auto) 0.0 Sodium 140 Potassium 4.0 Chloride 113 H Carbon Dioxide 23 Anion Gap 8 L BUN 12 Creatinine 0.78 Estim Creat Clear Calc 80.5 Estimated GFR > 60 Fasting Glucose 105 H Calcium 8.4 Total Bilirubin 0.6 AST 15 ALT 14 Alkaline Phosphatase 59 Total Protein 5.2 L Albumin 3.3 L Preliminary micro results at discharge 10/25/21 11:50 Blood Culture - Preliminary Blood - Venous No growth after 24 hours. 10/25/21 11:17 Blood Culture - Preliminary Blood - Venous No growth after 24 hours. Discharge Plan Discharge Patient Disposition: Home, Self-Care Discharge Diagnosis: Ileus Referrals: Po,Pro Adame MD [Primary Care Provider] - 1 Week Discharge Medications: Continued metoprolol tartrate 25 mg tablet 25 mg PO BID Qty: 180 RF: 2 lisinopril 5 mg tablet 5 mg PO DAILY Qty: 90 RF: 2 rosuvastatin [Crestor] 10 mg tablet 10 mg PO DAILY Qty: 90 RF: 3 docusate sodium 100 mg Capsule 100 mg PO BID PRN (Reason: Constipation) RF: 0 glucosamine-chondroitin 250-200 mg Tablet 2 tab PO DAILY RF: 0 isosorbide mononitrate 30 mg tablet extended release 24 hr 30 mg PO DAILY@1700 RF: 0 aspirin [Enteric Coated Aspirin] 81 mg tablet,delayed release (DR/EC) 81 mg PO DAILY Qty: 90 RF: 4 Discharge Orders: Discharge Order (Routine); Ordered 10/27/21 Ordered By: Jem Mae Diet: advance to usual diet Activity on Discharge: As tolerated Stand Alone Forms: Patient Portal Discharge page Care Plan Goals: Resume diet as pre-hospital. Follow-up with PCP as scheduled Health Concerns: Compliance it is with therapies Plan of Treatment: Follow-up with PCP as scheduled Assessment: As above
--- NOTE | 2021-10-27 12:35 | MHC.CM.PN ---
IMM 10/25 Male 86 dx Illeus. The patient is discharged to home self-care today. He has arranged for transportation home.
[2021-10-27] MEDS: Enoxaparin Sodium 40 MG/0.4 ML SYRINGE SUBCUT (13:45)
[2021-10-27 15:12] VITALS: BP 159/71; PULSE 60; RESP 17; TEMP 36.2; O2SAT 96
== END 2021-10-27 16:56 | disposition home or self-care (01) | DRG 390 ==
LOC: HO.ED 13:14 → HO.EDOVER 16:14 → HO.S3 23:18
PROVIDERS: Nurse Practitioner Family; Admitting Provider Hospitalist; Emergency Provider Emergency Medicine; PCP Internal Medicine; Visit Provider Hospitalist
DX: K56.7 Ileus, unspecified (principal); K21.9 Gastro-esophageal reflux disease without esophagitis; I25.10 Atherosclerotic heart disease of native coronary artery without angina pectoris; I10 Essential (primary) hypertension; E11.65 Type 2 diabetes mellitus with hyperglycemia; Z20.822 Contact with and (suspected) exposure to COVID-19; Z85.51 Personal history of malignant neoplasm of bladder; Z87.440 Personal history of urinary (tract) infections; Z85.048 Personal history of other malignant neoplasm of rectum, rectosigmoid junction, and anus; Z87.891 Personal history of nicotine dependence; Z79.82 Long term (current) use of aspirin; Z79.899 Other long term (current) drug therapy
CPT/HCPCS: 36415; 74018; 74177; 80048; 80053; 80076; 81003; 83605; 84484; 85025; 85610; 87040; 87635; 93005; 99285; J1650; J2270; Q9967

== ENCOUNTER → 2021-11-02 09:30 | Outpatient (BNVA) | payer MEDICARE, OTHER, SELFPAY | PROVIDERS: PCP Internal Medicine; Visit Provider Urology | DX: N32.0 Bladder-neck obstruction (principal); C61 Malignant neoplasm of prostate | CPT/HCPCS: 51702; 51798; 99212 ==

== ENCOUNTER 2021-12-13 07:15 | Day surgery (SDC) | payer MEDICARE, OTHER, SELFPAY ==
[2021-12-07 11:54] VITALS: BMI 25.0
--- NOTE | 2021-12-10 09:46 | P.CONAN_ITS ---
Documented by User: Carlene Mejia NP 12/10/21 09:51 HPI - Anesthesia Eval Consult details Narrative: 86yo M for Cystoscopy Dilation Bladder Neck contrature Low to intermed risk per cardiology [facility] Active Problems Active Problems: All Active Problems (Updated 11/04/21 @ 00:03 by Amy Aguirre) Screening for eye condition (Acute) Medicare annual wellness visit, initial (Acute ~09/28/21) Rectal cancer (Acute) GERD (gastroesophageal reflux disease) (Acute) Obstructive sleep apnea (Acute) Coronary artery disease (Acute) Type 2 diabetes mellitus with hyperglycemia (Acute) Overweight (BMI 25.0-29.9) (Acute) Prostate cancer (Acute) Hematuria (Acute) Bacteremia (Acute) Bladder neck stricture (Acute) UTI (urinary tract infection) (Acute) Acute retention of urine (Acute) Chronic UTI (urinary tract infection) (Acute) Dysuria (Acute) Abnormal myocardial perfusion study (Acute) Past Medical History Medical History Abnormal myocardial perfusion study Bladder neck contracture BPH (benign prostatic hyperplasia) Colon cancer Constipation Coronary artery disease Erectile dysfunction Essential hypertension GERD (gastroesophageal reflux disease) Hyperlipidemia, unspecified Obstructive sleep apnea Overweight (BMI 25.0-29.9) Peripheral vascular disease Prostate cancer Rectal cancer Small bowel obstruction Type 2 diabetes mellitus with hyperglycemia Urinary incontinence Family History Family History Father Pancreatic cancer Mother No problems noted. Brother Liver cancer Surgical History Surgical History History of appendectomy History of bladder surgery (~01/04/18) History of carpal tunnel release History of colectomy History of prostate surgery (~2016) Social History Social History Household Members: Spouse and Family Housing: House Are you a primary client care specialist to a significant other at home: Yes (client care specialist for , grand daughter lives with them as well) Do you presently have visiting nurse or other home services: Yes ([employer] for ) Alcohol intake: unknown Patient Tobacco Use Status: Former Tobacco user Quit Date: years ago Advance Directives Date on File: 09/29/20 service: Yes ([employer]) Current occupational status: retired Meds Allergies Allergy/AdvReac Type Severity Reaction Status Date / Time diphenhydramine AdvReac Intermediate Hallucinati Verified 12/13/21 07:49 [From Benadryl] ons Home Medications Medication Instructions Recorded Confirmed Last Taken Type docusate sodium 100 mg capsule 100 mg PO BID PRN 10/25/21 12/07/21 Unknown History glucosamine-chondroitin 250 mg-200 2 tab PO DAILY 10/25/21 10/25/21 10/24/21 History mg tablet isosorbide mononitrate 30 mg 30 mg PO DAILY@1700 10/25/21 12/07/21 10/24/21 History tablet,extended release 24 hr Exam Exam Date and Time: December 10, 2021 0946 Height,Weight and Vital Signs: Height 6 ft 2 in Weight 88.451 kg Pertinent Lab Results Pertinent Lab Results: Laboratory Tests 10/27/21 10/27/21 05:46 05:46 WBC 5.9 Hgb 12.8 L Hct 37.2 L Plt Count 202 Sodium 140 Potassium 4.0 Chloride 113 H Carbon Dioxide 23 BUN 12 Creatinine 0.78 Narrative Narrative: EKG 09/2021 Vent. Rate : 081 BPM ? ? Atrial Rate : 081 BPM ?? P-R Int : 176 ms? QRS Dur : 074 ms ? ? QT Int : 382 ms ? ? ? P-R-T Axes : 040 006 047 degrees ?? QTc Int : 443 ms ? Normal sinus rhythm Normal ECG When compared with ECG of 04-SEP-2020 11:08, [place] interval has shortened. ECHO LVEF 60-65%, no RWMA, No signif valve path Stress MIBI 2016: some inferobasal and apical ischemia. Similiar findings as 2014 MIBI. Continue med tx (no angina or other cardiac symptoms) Assessment and Plan Assessment Anesthesia Assessment: Chart Reviewed Documented by User: Ni Morgan MD 12/13/21 09:31 [facility] Past Medical History Medical History Abnormal myocardial perfusion study Bladder neck contracture BPH (benign prostatic hyperplasia) Colon cancer Constipation Coronary artery disease Erectile dysfunction Essential hypertension GERD (gastroesophageal reflux disease) Hyperlipidemia, unspecified Obstructive sleep apnea Overweight (BMI 25.0-29.9) Peripheral vascular disease Prostate cancer Rectal cancer Small bowel obstruction Type 2 diabetes mellitus with hyperglycemia Urinary incontinence Family History Family History Father Pancreatic cancer Mother No problems noted. Brother Liver cancer Family history of problems with anesthesia: No Surgical History Surgical History History of appendectomy History of bladder surgery (~01/04/18) History of carpal tunnel release History of colectomy History of prostate surgery (~2016) Social History Social History Household Members: Spouse and Family Housing: House Are you a primary client care specialist to a significant other at home: Yes (client care specialist for , grand daughter lives with them as well) Do you presently have visiting nurse or other home services: Yes ([employer] for ) Alcohol intake: unknown Patient Tobacco Use Status: Former Tobacco user Quit Date: years ago Advance Directives Date on File: 09/29/20 service: Yes ([employer]) Current occupational status: retired Meds Allergies Allergy/AdvReac Type Severity Reaction Status Date / Time diphenhydramine AdvReac Intermediate Hallucinati Verified 12/13/21 07:49 [From Tereza] ons Home Medications Medication Instructions Recorded Confirmed Last Taken Type docusate sodium 100 mg capsule 100 mg PO BID PRN 10/25/21 12/07/21 Unknown History glucosamine-chondroitin 250 mg-200 2 tab PO DAILY 10/25/21 10/25/21 10/24/21 History mg tablet isosorbide mononitrate 30 mg 30 mg PO DAILY@1700 10/25/21 12/07/21 10/24/21 History tablet,extended release 24 hr Assessment and Plan Final Anesthetic Review Family History of Problems with Anesthesia: No Documented by User: Chava Quigley 12/13/21 18:11 [facility] Past Medical History Medical History Abnormal myocardial perfusion study Bladder neck contracture BPH (benign prostatic hyperplasia) Colon cancer Constipation Coronary artery disease Erectile dysfunction Essential hypertension GERD (gastroesophageal reflux disease) Hyperlipidemia, unspecified Obstructive sleep apnea Overweight (BMI 25.0-29.9) Peripheral vascular disease Prostate cancer Rectal cancer Small bowel obstruction Type 2 diabetes mellitus with hyperglycemia Urinary incontinence Family History Family History Father Pancreatic cancer Mother No problems noted. Brother Liver cancer Surgical History Surgical History History of appendectomy History of bladder surgery (~01/04/18) History of carpal tunnel release History of colectomy History of prostate surgery (~2016) History of Problems with Anesthesia: No Social History Social History Household Members: Spouse and Family Housing: House Are you a primary client care specialist to a significant other at home: Yes (client care specialist for , grand daughter lives with them as well) Do you presently have visiting nurse or other home services: Yes ([employer] for ) Alcohol intake: unknown Patient Tobacco Use Status: Former Tobacco user Quit Date: years ago Advance Directives Date on File: 09/29/20 service: Yes ([employer]) Current occupational status: retired Meds Allergies Allergy/AdvReac Type Severity Reaction Status Date / Time diphenhydramine AdvReac Intermediate Hallucinati Verified 12/13/21 07:49 [From Benadryl] ons Home Medications Medication Instructions Recorded Confirmed Last Taken Type docusate sodium 100 mg capsule 100 mg PO BID PRN 10/25/21 12/07/21 Unknown History glucosamine-chondroitin 250 mg-200 2 tab PO DAILY 10/25/21 10/25/21 10/24/21 History mg tablet isosorbide mononitrate 30 mg 30 mg PO DAILY@1700 10/25/21 12/07/21 10/24/21 History tablet,extended release 24 hr Exam Airway Mallampati Class: III TM Dist: >3cm Neck ROM: Full Loose/Missing/Broken Teeth: Yes (missing teeth , poor dentation ) Heart: rrr Lungs: bl breath sounds Assessment and Plan Final Anesthetic Review History of Problems with Anesthesia: No NPO: Yes ASA Class: III Final Preanesthetic Review: Meds/Allgs Chart Reviewed, Consent Obtained/Reviewed and Anes Risks/Benef Reviewed Patient Risk: High Procedure Risk: Intermediate Anesthetic Plan Anesthetic Plan: GA Disposition: Standard PACU
[2021-12-13 08:08] VITALS: BP 161/76; PULSE 67; RESP 18; TEMP 36.6; O2SAT 99
[2021-12-13 08:09] LABS: Glucose, Whole Blood 120 mg/dL (60-115)
--- NOTE | 2021-12-13 09:31 | MHC.SHP ---
Pre-Procedural Eval Section A Date of Service: 12/13/21 The patient is an INPATIENT: No Changes since office visit: No Cold of Flu in the past 2 weeks, No New Medical Problems, No Changes in Medication and No Patient answered all questions The History & Physical has been completed within 30 days and I have reviewed it.: Yes Section B Chief Complaint: bladder neck obstruction Allergies: Allergies Allergy/AdvReac Type Severity Reaction Status Date / Time diphenhydramine AdvReac Intermediate Hallucinati Verified 12/13/21 07:49 [From Tereza] ons Review of Systems Sugical H&P ROS: Negative: Constitution, Cardiovascular, Respiratory, Neurological, Psychiatric, Hem-Onc, Allergic/Immunologic, Gastrointestinal, Genitourinary, Musculoskeletal, Integumentary, Endocrine and Eyes/Ears/Nose/Throat Exam Surgical H&P Exam: Normal: HEENT, Normal: Heart, Normal: Lungs, Normal: Extremities, Normal: Abdomen, Normal: Skin and Normal: Neurological Plan Diagnosis/Plan: Unchanged ( apical prostate stricture for incision) I have reviewed the history and physical and performed a pertinent physical examination on my patient. No changes have occurred unless specified.
--- NOTE | 2021-12-13 10:02 | W.PM.OPN ---
Operative Note Operative Note Date of Service: 12/13/21 Narrative: PreOperative Diagnosis: bulbar membranous urethra Post Operative Diagnosis: 1. Bulbar membranous urethra 2. Bladder neck contracture Procedure: cystoscopy Surgeon: Dr Jerman Hein Anesthesia: general Indications for procedure: Prior radical prostatectomy and radiation Prior apical stricture Unable to perform cysto in office Here for DVIU Procedure: After informed consent was verified the patient was brought to the operating room and placed in a supine position. anesthesia was administered per protocol. the patient was placed in modified dorsal lithotomy position and prepped and draped in a sterile fashion. Safety pause was performed. Antibiotics have been given. Cystoscopy performed with DVIU. Bulbar membranous stricture encountered. Incision made 12 o'clock position. scope advanced and bladder neck contracture found. Incisions made 12, 9, 03:00 o'clock. Twenty [place] scope then advanced into bladder bladder emptied. [place] tip 16 [place] Fam catheter placed at completion of the procedure. 10 cc placed in balloon. Cap placed on catheter. Pathology: [] Drains: []
[2021-12-13 10:19] VITALS: BP 106/48; PULSE 74; RESP 17; TEMP 36.6; O2SAT 95
[2021-12-13 10:24] VITALS: BP 111/58; PULSE 70; RESP 18; O2SAT 96
[2021-12-13 10:39] VITALS: BP 122/60; PULSE 69; RESP 17; O2SAT 98
[2021-12-13 10:55] VITALS: BP 125/62; PULSE 65; RESP 16; O2SAT 98
[2021-12-13 11:10] VITALS: BP 143/66; PULSE 60; RESP 16; O2SAT 98
[2021-12-13] MEDS: Acetaminophen 325 MG TABLET 650 MG PO (11:11)
== END 2021-12-13 12:00 | disposition home or self-care (01) ==
PROVIDERS: PCP Internal Medicine; Visit Provider Urology
PROC: 0T7C8ZZ Dilation of Bladder Neck, Via Natural or Artificial Opening Endoscopic (ICD-10-PCS; CPT 52276; principal; 2021-12-13 09:00)
DX: N32.0 Bladder-neck obstruction (principal); N35.813 Other membranous urethral stricture, male; N40.1 Benign prostatic hyperplasia with lower urinary tract symptoms; N39.498 Other specified urinary incontinence; Z85.46 Personal history of malignant neoplasm of prostate; Z90.79 Acquired absence of other genital organ(s); Z92.3 Personal history of irradiation; Z85.048 Personal history of other malignant neoplasm of rectum, rectosigmoid junction, and anus; Z90.49 Acquired absence of other specified parts of digestive tract; G47.33 Obstructive sleep apnea (adult) (pediatric); I10 Essential (primary) hypertension; I25.10 Atherosclerotic heart disease of native coronary artery without angina pectoris; E78.5 Hyperlipidemia, unspecified; E11.65 Type 2 diabetes mellitus with hyperglycemia; Z79.899 Other long term (current) drug therapy; Z79.82 Long term (current) use of aspirin; Z88.8 Allergy status to other drugs, medicaments and biological substances; Z87.891 Personal history of nicotine dependence
CPT/HCPCS: 52276; 82947; J1956; J2405; J3010

== ENCOUNTER 2021-12-29 09:29 | Outpatient (REF) | payer MEDICARE, OTHER, SELFPAY | END 2021-12-29 09:30 | disposition home or self-care (01) | LOC: HO.LAB 09:29 | PROVIDERS: PCP Internal Medicine; Visit Provider Urology | DX: N32.0 Bladder-neck obstruction (principal); N39.0 Urinary tract infection, site not specified | CPT/HCPCS: 87086; 87088; 87186; 99212 ==

== ENCOUNTER 2022-04-05 23:21 | Inpatient (IN) | payer MEDICARE, OTHER, SELFPAY ==
--- NOTE | ~2022-04-05 | XR_ITS ---
EXAMINATION: XR ABDOMEN WITH DECUBITUS VIEWS CLINICAL INDICATION: Follow-up small bowel obstruction COMPARISON: Previous CT of the abdomen and pelvis from yesterday TECHNIQUE: Supine and upright views of the abdomen and pelvis FINDINGS: There is stool throughout the colon suggestive of severe constipation. There are no dilated loops of small or large bowel. There is no evidence of free air. There is evidence of atherosclerotic disease. There are degenerative changes of the spine. XR/XR abdomen w decubitus IMPRESSION: Stool throughout the colon suggestive of constipation. No dilated loops of bowel to suggest obstruction.
--- NOTE | ~2022-04-05 | CT_ITS ---
EXAMINATION: CT ABDOMEN AND PELVIS WITHOUT CONTRAST CLINICAL INFORMATION: Abdominal pain. SBO. COMPARISON: 10/25/2021, and priors dating back to 2013 TECHNIQUE: Multidetector volumetric imaging was performed from the superior aspect of the liver through the pubic symphysis. Sagittal and coronal reformatted images were obtained on the technologist's workstation. This CT examination was performed using dose optimization techniques as appropriate, variously including the following: *Automated exposure control *Adjustment of mA and/or kV according to patient size (this includes techniques or standardized protocols for targeted exams where dose is matched to indication/reason for exam; i.e. extremities or head) *Use of iterative reconstruction technique DLP: 631 mGy-cm FINDINGS: LUNG BASES: Stable coarse diaphragmatic pleural calcifications on the right. Lungs are clear. LIVER, GALLBLADDER, AND BILIARY TREE: The liver is normal in size, shape, and attenuation. No focal hepatic lesion or biliary ductal dilatation is present. Gallbladder unremarkable. PANCREAS: Fatty atrophy of the pancreas. No pancreatic mass or inflammation. SPLEEN: Unremarkable. ADRENAL GLANDS: Stable mild low-density thickening of the bilateral adrenal glands. KIDNEYS AND URETERS: The kidneys are normal in size, shape, and attenuation. No hydronephrosis, hydroureter, or calculi seen. Stable right renal cysts. No further follow-up required. No perinephric stranding. BLADDER: Unremarkable. GASTROINTESTINAL TRACT: Status post sigmoid colectomy with rectosigmoid anastomosis within the pelvis. Again seen is mild dilatation small bowel leading up to the ileum where the small bowel approaches 5 cm in diameter. There is focal narrowing of the portion of one of the dilated loops of small bowel within the central abdomen, which is the same configuration as seen on the prior examination, likely relates to an adhesion (coronal images 32 -- 37). Moving distally, the small bowel remains mildly dilated, becoming progressively more dilated as it enters the pelvis where there is a relative point of transition adjacent to the rectosigmoid anastomosis as seen on coronal images 59-68, and axial image 73 of series 3. Distal to this, the small bowel is relatively compressed, however not entirely so. Trace fluid within the mesenteric leaves and some areas. Mild constipation noted throughout the colon. Appendix not seen. Stomach is unremarkable. Small sliding-type hiatal hernia. ABDOMINAL WALL: No significant hernia is appreciated. LYMPH NODES: Long-term stability of a 1.3 cm short axis lymph node adjacent to the left renal vein, unchanged since 2014. No additional potentially abnormal lymph nodes are identified. VASCULAR: Aorta is densely atherosclerotic. No aneurysm. PELVIC VISCERA: Unremarkable. OSSEOUS STRUCTURES: No acute or suspicious osseous abnormalities. Degenerative changes present throughout the thoracolumbar spine. CT/CT abdomen pelvis wo con IMPRESSION: * Again seen are multiple mildly dilated loops of small bowel, with several loops apparently tethered in various areas reflective of adhesions as described above. There is a relative point of transition on the current examination more distinct than on the prior examinations within the pelvis, adjacent to the rectosigmoid anastomosis within the distal ileum, past which there is relative decompression of the distal/terminal ileum, compatible with small bowel obstruction, which could be partial or early high-grade. * Trace fluid within a few of the mesenteric leaves is nonspecific, could be reactive to the small bowel obstruction, representing a degree of inflammation or possibly vascular compromise. * Additional chronic stable findings as above.
[2022-04-05 23:32] VITALS: BP 162/78; PULSE 66; RESP 16; TEMP 36.6; O2SAT 97; BMI 24.1
[2022-04-05 23:41] VITALS: BP 160/65; PULSE 67; RESP 20; TEMP 36.6; O2SAT 100
--- NOTE | 2022-04-05 23:52 | ED_ITS ---
HPI - Abdominal Pain General Chief Complaint: Abdominal Pain Stated Complaint: blockage ? Time Seen by Provider: 04/05/22 23:26 Source: patient and old records reviewed Mode of arrival: ambulatory Limitations: no limitations History of Present Illness HPI narrative: 86 yo male with hx of rectal cancer s/p LAR 2005 Dr. Soriano with hx of SBO in past, GERD, DM, TORRES, HLD, prostate cancer s/p radiation and hx of stricture treatment comes in with c/o abdominal pain that started at 6pm today. Reports miminal flatus and small BM on 04/05. Feels like a SBO to patient. MD elicited complaint: abdominal pain Pertinent past history: other (prior SBO) Onset (ago): day(s) (6pm on 04/05) Pain Consistency: constant Location: periumbilical and RLQ Severity: severe Quality: aching and fullness Radiation: none Migration to: no migration Exacerbating factors: movement Relieving factors: nothing Context: history of similar episodes Associated symptoms: nausea Related Data Home Medications Medication Instructions Recorded Confirmed docusate sodium 100 mg capsule 100 mg PO BID PRN 10/25/21 03/24/22 glucosamine-chondroitin 250 mg-200 2 tab PO DAILY 10/25/21 03/24/22 mg tablet isosorbide mononitrate 30 mg 30 mg PO DAILY@1700 10/25/21 03/24/22 tablet,extended release 24 hr Previous Rx's Medication Instructions Recorded aspirin 81 mg tablet,delayed 81 mg PO DAILY #90 tab 08/06/20 release (Enteric Coated Aspirin) metoprolol tartrate 25 mg tablet 25 mg PO BID #180 tab 08/16/21 lisinopril 5 mg tablet 5 mg PO DAILY #90 tab 09/29/21 rosuvastatin 10 mg tablet (Crestor) 10 mg PO DAILY #90 tab 10/05/21 phenazopyridine 100 mg tablet 100 mg PO TID PRN 5 Days #15 tab 12/22/21 (Pyridium) amoxicillin 500 mg-potassium 1 tab PO BID 7 Days #14 tab 01/27/22 clavulanate 125 mg tablet (Augmentin) Allergies Allergy/AdvReac Type Severity Reaction Status Date / Time diphenhydramine AdvReac Intermediate Hallucinati Verified 03/24/22 10:23 [From Tereza] ons Review of Systems Review of Systems Constitutional : No Weight loss, No Fever, No Chills ENT/Mouth : No sore throat, No Rhinorrhea Eyes: No Swelling, No Redness Cardiovascular : No Chest Pain, No SOB, NoEdema Respiratory : No Cough, No Sputum, No Wheezing Gastrointestinal : Positive Nausea, no Vomiting, no Diarrhea, positive abdominal Pain, No Hematochezia, No Melena Genitourinary : No Dysuria, No Urinary Frequency, No Hematuria, No Urgency Musculoskeletal : No joint pain, No Myalgias, No Joint Swelling Skin : No Skin Lesions, No rash Neuro : No Weakness, No Numbness, No Dizziness, No Headache Psych : No Anxiety/Panic, No Depression Heme/Lymph: No Bruising, No Lymphadenopathy Endocrine : No Polyuria, No Polydipsia All other systems reviewed and are negative. [facility] Past Medical History Attestation statement: The following information was validated with the patient. Source: old records reviewed Medical History Abnormal myocardial perfusion study Bladder neck contracture BPH (benign prostatic hyperplasia) Colon cancer Constipation Coronary artery disease Dysuria Erectile dysfunction Essential hypertension GERD (gastroesophageal reflux disease) Hematuria Hyperlipidemia, unspecified Obstructive sleep apnea Overweight (BMI 25.0-29.9) Peripheral vascular disease Prostate cancer Rectal cancer Small bowel obstruction Type 2 diabetes mellitus with hyperglycemia Urinary incontinence UTI (urinary tract infection) Surgical History History of appendectomy History of bladder surgery (~01/04/18) History of carpal tunnel release History of colectomy History of prostate surgery (~2016) Family History Family History Father Pancreatic cancer Mother No problems noted. 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 Oriented X3. Mild acute distress. Anxious in pain Eyes: Pupils equal, round and reactive to light. ENT: Pharynx normal. Neck: Normal inspection. Neck supple. CVS: Normal heart rate and rhythm. Pulses normal. Respiratory: No respiratory distress. Breath sounds normal. Abdomen: Soft with mild distention decreased bowel sounds, ttp in RLQ no rebound Skin: Skin warm and dry. Normal skin color. Normal skin turgor. Extremities: No lower extremity edema. No calf ttp Neuro: Oriented X 3. No motor deficit. No sensory deficit. Course Course Course Narrative: message sent to Dr. Aiken from surgery. no vomiting, stomach not markedly distended - I have held off NG tube at this time, in 2020 did not require NG tube Dr. Randle is actually covering - will admit patient MDM - Abdominal Pain MDM Narrative Medical decision making narrative: 86 yo male with hx of rectal cancer s/p LAR 2005 Dr. Soriano with hx of SBO in past, GERD, DM, TORRES, HLD, prostate cancer s/p radiation and hx of stricture treatment comes in with c/o abdominal pain and symptoms concerning for SBO. At this time labs, CT scan for SBO, IVF and IV pain medications ordered. He has responded in the past to conservative measures most recently 2020. Planned admit. Lab Data Result diagrams: 04/06/22 00:15 04/06/22 00:15 Labs: Lab Results 04/06/22 04/06/22 04/06/22 Range/Units 00:09 00:15 00:15 WBC 11.9 H (4.8-10.8) X10*3/uL RBC 5.36 (4.60-5.80) X10*6/uL Hgb 15.5 (14.0-18.0) g/dl Hct 45.6 (42.0-52.0) % MCV 85.1 (80.0-98.0) fL MCH 28.9 (27.0-33.0) pg MCHC 34.0 (31.0-36.0) g/dl RDW 12.7 (11.0-16.0) % Plt Count 247 (160-400) X10*3/uL MPV 9.9 (9.4-12.4) fL Immature Gran % (Auto) 0.3 (0.0-0.4) % Neut % (Auto) 72.1 (45-73) % Lymph % (Auto) 20.4 (20-40) % [place] % (Auto) 5.0 (2-11) % Eos % (Auto) 1.9 (0-4) % Baso % (Auto) 0.3 (0-2) % Lymph # (Auto) 2.4 (1.2-4.9) X10*3/uL [place] # (Auto) 0.6 (0.1-1.2) X10*3/uL Eos # (Auto) 0.2 (0.0-0.4) X10*3/uL Baso # (Auto) 0.0 (0.0-0.2) X10*3/uL Abs Immat Gran (auto) 0.04 H (0.00-0.03) X10*3/uL Absolute Neuts (auto) 8.6 H (2.0-8.3) x10*3/uL Absolute Nucleated RBC 0.000 (0.0-0.012) X10*3/uL Nucleated RBC % (auto) 0.0 (0.0-0.2) /100WBC PT 11.6 (9.9-13.0) SEC INR 1.0 (0.9-1.1) Sodium (135-145) mmol/L Potassium (3.3-5.1) mmol/L Chloride (96-108) mmol/L Carbon Dioxide (22-29) mmol/L Anion Gap (12-20) BUN (9-16) mg/dL Creatinine (0.5-1.4) mg/dL Estim Creat Clear Calc Estimated GFR Random Glucose (60-115) mg/dL Calcium (8.4-10.2) mg/dL Magnesium (1.6-2.6) mg/dL Total Bilirubin (0.0-1.0) mg/dL Direct Bilirubin (0.0-0.5) mg/dL AST (5-37) U/L ALT (0-40) U/L Alkaline Phosphatase (39-117) U/L Total Protein (6.5-8.0) g/dL Albumin (3.5-5.0) g/dL Lipase (8-78) U/L COVID-19 ([facility]) Negative (Negative) COVID-19 Clin Com See Note 04/06/22 Range/Units 00:15 WBC (4.8-10.8) X10*3/uL RBC (4.60-5.80) X10*6/uL Hgb (14.0-18.0) g/dl Hct (42.0-52.0) % MCV (80.0-98.0) fL MCH (27.0-33.0) pg MCHC (31.0-36.0) g/dl RDW (11.0-16.0) % Plt Count (160-400) X10*3/uL MPV (9.4-12.4) fL Immature Gran % (Auto) (0.0-0.4) % Neut % (Auto) (45-73) % Lymph % (Auto) (20-40) % [place] % (Auto) (2-11) % Eos % (Auto) (0-4) % Baso % (Auto) (0-2) % Lymph # (Auto) (1.2-4.9) X10*3/uL [place] # (Auto) (0.1-1.2) X10*3/uL Eos # (Auto) (0.0-0.4) X10*3/uL Baso # (Auto) (0.0-0.2) X10*3/uL Abs Immat Gran (auto) (0.00-0.03) X10*3/uL Absolute Neuts (auto) (2.0-8.3) x10*3/uL Absolute Nucleated RBC (0.0-0.012) X10*3/uL Nucleated RBC % (auto) (0.0-0.2) /100WBC PT (9.9-13.0) SEC INR (0.9-1.1) Sodium 140 (135-145) mmol/L Potassium 4.6 (3.3-5.1) mmol/L Chloride 106 (96-108) mmol/L Carbon Dioxide 22 (22-29) mmol/L Anion Gap 17 (12-20) BUN 20 H (9-16) mg/dL Creatinine 0.94 (0.5-1.4) mg/dL Estim Creat Clear Calc 65.5 Estimated GFR > 60 Random Glucose 147 H (60-115) mg/dL Calcium 9.9 D (8.4-10.2) mg/dL Magnesium 2.3 (1.6-2.6) mg/dL Total Bilirubin 0.7 (0.0-1.0) mg/dL Direct Bilirubin 0.3 (0.0-0.5) mg/dL AST 15 (5-37) U/L ALT 15 (0-40) U/L Alkaline Phosphatase 79 (39-117) U/L Total Protein 6.8 (6.5-8.0) g/dL Albumin 4.2 (3.5-5.0) g/dL Lipase 13 (8-78) U/L COVID-19 ([facility]) (Negative) COVID-19 Clin Com Discharge Plan Discharge Clinical Impression: Small bowel obstruction Abdominal pain Qualifiers: Abdominal location: right lower quadrant Qualified Code(s): R10.31 - Right lower quadrant pain Patient Disposition: Admitted As Inpatient
[2022-04-06] MEDS: ondansetron HCL 4 MG/2 ML VIAL IVPUSH ×2 (00:17→03:32)
[2022-04-06] MEDS: HYDROmorphone HCl 0.5 MG/0.5 ML SYRINGE IVPUSH (00:17)
[2022-04-06] MEDS: 0.9 % Sodium Chloride 500 ML IV (00:18)
[2022-04-06 00:22] LABS: MANUAL DIFF FLAG NO
[2022-04-06 00:23] LABS: Basophils Percent Auto 0.3 % (0-2); Eosinophils Absolute Auto 0.2 X10*3/uL (0.0-0.4); Eosinophils Percent Auto 1.9 % (0-4); Hematocrit 45.6 % (42.0-52.0); Hemoglobin 15.5 g/dl (14.0-18.0); Imm Gran Abs Auto 0.04 X10*3/uL (0.00-0.03); Imm Gran Pct Auto 0.3 % (0.0-0.4); Lymphocytes Absolute Auto 2.4 X10*3/uL (1.2-4.9); Lymphocytes Percent Auto 20.4 % (20-40); Mean Corpuscular Hemoglobin 28.9 pg (27.0-33.0); Mean Corpuscular Volume 85.1 fL (80.0-98.0); Mean Platelet Volume 9.9 fL (9.4-12.4); Monocytes Absolute Auto 0.6 X10*3/uL (0.1-1.2); Neutrophils Absolute Auto 8.6 x10*3/uL (2.0-8.3); Neutrophils Percent Auto 72.1 % (45-73); Platelet Count 247 X10*3/uL (160-400); Red Blood Count 5.36 X10*6/uL (4.60-5.80); Red Cell Distribution Width 12.7 % (11.0-16.0); White Blood Count 11.9 X10*3/uL (4.8-10.8)
[2022-04-06 00:29] LABS: Prothrombin Time 11.6 SEC (9.9-13.0)
[2022-04-06 00:40] LABS: COVID-19 Test Negative (Negative); IDNOW Serial# 55D5AD1C
[2022-04-06 00:53] LABS: Alanine Aminotransferase 15 U/L (0-40); Albumin Level 4.2 g/dL (3.5-5.0); Alkaline Phosphatase 79 U/L (39-117); Anion Gap 17 (12-20); Aspartate Amino Transferase 15 U/L (5-37); Bilirubin Direct 0.3 mg/dL (0.0-0.5); Bilirubin Total 0.7 mg/dL (0.0-1.0); Blood Urea Nitrogen 20 mg/dL (9-16); Calcium 9.9 mg/dL (8.4-10.2); Carbon Dioxide 22 mmol/L (22-29); Chloride 106 mmol/L (96-108); Creatinine Clr Calc Pharmacy 65.5; Estimated Glomerular Filt Rate > 60; Glucose Random 147 mg/dL (60-115); Lipase 13 U/L (8-78); Magnesium 2.3 mg/dL (1.6-2.6); Potassium 4.6 mmol/L (3.3-5.1); Sodium 140 mmol/L (135-145); Total Protein 6.8 g/dL (6.5-8.0)
[2022-04-06] MEDS: Enoxaparin Sodium 40 MG/0.4 ML SYRINGE SUBCUT (02:20)
[2022-04-06] MEDS: 0.9 % Sodium Chloride 1,000 ML 100 ML IVCONT ×3 (02:20→22:39)
--- NOTE | 2022-04-06 02:33 | PC.NURSE ---
Dr. Randle ordered NG tube to be placed patient refused states he does not want it. Dr. Randle notified of refusal. Will continue with plan of care.
[2022-04-06] MEDS: HYDROmorphone HCl 1 MG/ML SYRINGE 0.5 MG IVPUSH (03:32)
[2022-04-06 06:33] LABS: MANUAL DIFF FLAG NO
[2022-04-06 06:45] LABS: Basophils Percent Auto 0.3 % (0-2); Eosinophils Absolute Auto 0.1 X10*3/uL (0.0-0.4); Hemoglobin 14.8 g/dl (14.0-18.0); Imm Gran Abs Auto 0.04 X10*3/uL (0.00-0.03); Imm Gran Pct Auto 0.3 % (0.0-0.4); Lymphocytes Absolute Auto 1.8 X10*3/uL (1.2-4.9); Lymphocytes Percent Auto 15.9 % (20-40); Mean Corpuscular HGB Conc 33.6 g/dl (31.0-36.0); Mean Corpuscular Hemoglobin 29.2 pg (27.0-33.0); Mean Platelet Volume 10.8 fL (9.4-12.4); Monocytes Absolute Auto 0.7 X10*3/uL (0.1-1.2); Monocytes Percent Auto 5.9 % (2-11); Neutrophils Absolute Auto 8.8 x10*3/uL (2.0-8.3); Neutrophils Percent Auto 76.6 % (45-73); Platelet Count 247 X10*3/uL (160-400); Red Blood Count 5.06 X10*6/uL (4.60-5.80); White Blood Count 11.5 X10*3/uL (4.8-10.8)
[2022-04-06 07:19] LABS: Anion Gap 14 (12-20); Blood Urea Nitrogen 23 mg/dL (9-16); Calcium 9.1 mg/dL (8.4-10.2); Carbon Dioxide 23 mmol/L (22-29); Chloride 106 mmol/L (96-108); Creatinine Clr Calc Pharmacy 69.2; Estimated Glomerular Filt Rate > 60; Glucose Random 159 mg/dL (60-115); Potassium 4.7 mmol/L (3.3-5.1); Sodium 138 mmol/L (135-145)
[2022-04-06 07:24] VITALS: BP 158/70; PULSE 69; RESP 14; TEMP 36.7; O2SAT 97
--- NOTE | 2022-04-06 07:25 | PM.HPGS ---
History of Present Illness History of Present Illness Date of Service: 04/06/22 Chief complaint: Small bowel obstruction Narrative: Geoffrey Bone is a 87 year old male patient with a prior history of rectal CA status post low anterior resection performed by Dr. Soriano and a prior history of small-bowel obstructions now presenting with complaints of abdominal pain, distension, nausea without vomiting, and decreased bowel movements.? He normally takes a stool softener but stopped taking them recently. The pain was stronger yesterday but has persisted therefore he presented to the emergency department.? He reports passing a small bowel movement yesterday and a small amount of flatus today.? He presented to the emergency department was noted to have a mildly elevated WBC.? CT of the abdomen and pelvis revealed dilated loops of small bowel with a possible transition point in the distal ileum suggestive of a small-bowel obstruction.? His colon is full stool down to the rectal vault. Review of Systems Constitutional: Constitutional: Denies chills, Denies fever(s), Denies headache(s) and Denies poor appetite ENT: Denies dizziness and Denies headache(s) Cardiovascular: Cardiovascular: Denies chest pain, Denies rapid heart rate, Denies palpitations and Denies slow heart rate Respiratory: Respiratory: Denies chest congestion, Denies cough, Denies pain on inspiration and Denies wheezing Gastrointestinal: Gastrointestinal: Reports abdominal pain, Denies bloating, Denies change in stool character, Reports constipation, Denies diarrhea, Reports nausea, Denies vomiting and Denies hematemesis Musculoskeletal: Musculoskeletal: Denies back pain, Denies arthralgias, Denies joint swelling and Denies numbness Integumentary/Breasts: Skin/Breast: Denies change in pigmentation, Denies erythema and Denies rash Neurologic: Denies dizziness, Denies headache(s) and Denies numbness Psychiatric: Psychiatric: Denies anxiety and Denies depression Endocrine: Endocrine: Denies palpitations Hematologic/Lymphatic: Hematologic/Lymphatic: Denies easy bleeding, Denies easy bruising and Denies lymphadenopathy Allergic/Immunologic: Allergic/Immunologic: Denies wheezing PMFSH Past Medical History Medical History Abnormal myocardial perfusion study Bladder neck contracture BPH (benign prostatic hyperplasia) Colon cancer Constipation Coronary artery disease Dysuria Erectile dysfunction Essential hypertension GERD (gastroesophageal reflux disease) Hematuria Hyperlipidemia, unspecified Obstructive sleep apnea Overweight (BMI 25.0-29.9) Peripheral vascular disease Prostate cancer Rectal cancer Small bowel obstruction Type 2 diabetes mellitus with hyperglycemia Urinary incontinence UTI (urinary tract infection) Family History Family History Father Pancreatic cancer Mother No problems noted. Brother Liver cancer Surgical History Surgical History History of appendectomy History of bladder surgery (~01/04/18) History of carpal tunnel release History of colectomy History of prostate surgery (~2016) Social History Social History Household Members: Spouse and Family Housing: House Are you a primary day care home mother to a significant other at home: Yes (day care home mother for , grand daughter lives with them as well) Do you presently have visiting nurse or other home services: Yes (OVEN TENDER for ) Alcohol intake: unknown Patient Tobacco Use Status: Former Tobacco user Quit Date: years ago Tobacco use type: Cigarette e-Cigarette/Vaping Use: Never Used Second Hand Smoke Exposure: No Advance Directives: Yes Advance Directives on File: Yes Advance Directives Date on File: 09/29/20 service: Yes ([employer]) Current occupational status: retired Meds Allergies Allergy/AdvReac Type Severity Reaction Status Date / Time diphenhydramine AdvReac Intermediate Hallucinati Verified 03/24/22 10:23 [From Benadryl] ons Active Medications: Current Medications Enoxaparin Sodium (Enoxaparin Sodium 40 Mg/0.4 Ml Syringe) 40 mg SUBCUT Q24H KRISTINE Last Admin: 04/06/22 02:20 Dose: 40 mg Hydromorphone HCl (Hydromorphone Hcl 1 Mg/Ml Syringe) 0.5 mg IVPUSH Q4H PRN; Protocol PRN Reason: Pain, Severe (Pain Scale 7-10) Last Admin: 04/06/22 03:32 Dose: 0.5 mg Sodium Chloride (Ns) 1,000 mls @ 100 mls/hr IVCONT .Q10H KRISTINE Last Admin: 04/06/22 02:20 Dose: 100 mls/hr Ondansetron HCl (Ondansetron Hcl 4 Mg/2 Ml Vial) 4 mg IVPUSH Q8H PRN PRN Reason: Nausea Last Admin: 04/06/22 03:32 Dose: 4 mg Oxycodone HCl (Oxycodone Hcl Immed Release 5 Mg Tablet) 5 mg PO Q6H PRN PRN Reason: Pain, Moderate (Pain Scale 4-6 Pharmacy Consult (Consult Rx Perform Med Rec) 1 each MISCELLANE ONCE PRN PRN Reason: Consult order Sodium Chloride (0.9 % Sodium Chloride Flush 3 Ml Syringe) 3 [facility] Last Admin: 04/06/22 03:06 Dose: Not Given Temazepam (Temazepam 15 Mg Capsule) 15 mg PO BEDTIME PRN PRN Reason: Insomnia Home Medications Medication Instructions Recorded Confirmed Last Taken Type docusate sodium 100 mg capsule 100 mg PO BID PRN Constipation 10/25/21 03/24/22 Unknown History glucosamine-chondroitin 250 mg-200 2 tab PO DAILY 10/25/21 03/24/22 10/24/21 History mg tablet isosorbide mononitrate 30 mg 30 mg PO DAILY@1700 10/25/21 04/06/22 10/24/21 History tablet,extended release 24 hr metoprolol tartrate 25 mg tablet 1 tab PO BID 04/06/22 04/06/22 Unknown History Physical Exam Vital Signs: Vital Signs: Last Vital Signs Temp 97.9 F 04/05/22 23:41 Pulse 67 04/05/22 23:41 Resp 20 04/05/22 23:41 BP 160/65 H 04/05/22 23:41 Pulse Ox 100 04/05/22 23:41 O2 Del Method 04/05/22 23:41 BMI result Body Mass Index 24.1 Const: General: cooperative, comfortable and well developed Nutritional Appearance: well nourished Orientation/consciousness: patient oriented x3 Limitations: no limitations HEENT: Head: Yes normocephalic and Yes atraumatic Ears: hearing grossly normal bilaterally Eyes: Sclerae: sclerae normal EOM: EOMs intact bilaterally Neck: Neck: Yes normal visual inspection Resp: Effort & Inspection: normal respiratory effort, no cough, no respiratory distress and no stridor Cardio: Jugular venous distension: no JVD GI: Inspection: Yes normal to inspection and Yes distended Palpation (GI): Soft to palpation, nontender, no guarding and not rigid Percussion: Yes tympanic to percussion Auscultation: Absent bowel sounds Rectal Exam - Male: Yes deferred Skin: General skin exam: dry skin Rashes: no rashes Neuro: General: patient oriented x3 and no focal motor deficits Extrem: General: Yes full ROM and Yes no clubbing, cyanosis or edema Psych: Appearance: grossly normal Results Results Labs: Short CBC 04/06/22 04/06/22 Range/Units 00:15 05:00 WBC 11.9 H 11.5 H (4.8-10.8) X10*3/uL Hgb 15.5 14.8 (14.0-18.0) g/dl Hct 45.6 44.0 (42.0-52.0) % Plt Count 247 247 (160-400) X10*3/uL BMP 04/06/22 04/06/22 00:15 05:00 Sodium 140 138 Potassium 4.6 4.7 Chloride 106 106 Carbon Dioxide 22 23 BUN 20 H 23 H Creatinine 0.94 0.89 Calcium 9.9 D 9.1 D Liver Function 04/06/22 Range/Units 00:15 Total Bilirubin 0.7 (0.0-1.0) mg/dL Direct Bilirubin 0.3 (0.0-0.5) mg/dL AST 15 (5-37) U/L ALT 15 (0-40) U/L Alkaline Phosphatase 79 (39-117) U/L Albumin 4.2 (3.5-5.0) g/dL Assessment and Plan (1) Small bowel obstruction: Status: Acute 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 Stomach is mildly dilated, but patient is refusing NGT placement at this time. He reports no vomiting and nausea is improved this morning. Continue NPO, IVFs. (2) Prostate cancer: Status: Acute (3) Rectal cancer: Status: Acute No evidence of active disease at this time. (4) Type 2 diabetes mellitus with hyperglycemia: Qualifiers: Diabetes mellitus director long term care insulin use: without senior care use Qualified Code(s): E11.65 - Type 2 diabetes mellitus with hyperglycemia Status: Acute Hospitalist consult requested to assist in management Quality Stroke Does the patient have a stroke diagnosis?: No VTE Prior VTE?: No VTE Risk Level:: Surgical - high VTE Device Contraindication: N/A - Device Ordered VTE Drug Contraindication: N/A - Med Ordered Procedures Date of Service Date of Service: 04/06/22
--- NOTE | 2022-04-06 07:57 | PHA.MEDREC ---
Pharmacy Consult ? Medication Reconciliation Pharmacy has completed the medication reconciliation. Patient confirmed all medications. Omaira Robles, GreyD
--- NOTE | 2022-04-06 09:27 | P.CDIC_ITS ---
CDI Concurrent Query Documentation Clarification: PHYSICIAN'S DOCUMENTATION REQUEST Date of Query: 04/06/2228 Patient Name: Geoffrey Bone Admit Date: 04/06/22 Dear Doctor, A review of the medical record indicates additional documentation may be needed. Please review below and update the documentation accordingly. Risk Factors/Clinical Indicators/Treatments HP: Recurrent SBO presumably from adhesions Based on the above, could you clarify in the Progress Notes the appropriate diagnosis, if significant, that supports the above abnormalities and additional evaluation, monitoring, and/or treatment rendered: * SBO with adhesions, complete * SBO with adhesions, incomplete * SBO with adhesions, partial * Other (please specify) * Unable to determine Use of terms such as suspected, likely, concern for, or probable (associated with a specific diagnosis that is being evaluated, monitored, or treated as if it exists) are acceptable and can be coded in the inpatient setting, when docume nted at the time of discharge. Thank you, Annie Villar RN Extension: [phone] Please use your independent medical judgment in providing your response. THIS QUERY IS PART OF THE PERMANENT MEDICAL RECORD Provider Response: Other Other Diagnosis: SBO with adhesions, partial
--- NOTE | 2022-04-06 10:22 | PC.NURSE ---
nad, no pain, states abd is a little tight . no n/v, aware he's npo, skin wpd, james, spoke w dtr and updated her
[2022-04-06 11:18] VITALS: BP 137/72; PULSE 104; RESP 18; TEMP 37.4; O2SAT 96
--- NOTE | 2022-04-06 11:40 | PC.NURSE ---
patient a&ox3, currently states his pain is very mild, unable to give an exact number- a 2 maybe, ivf running per order, call shin within reach, will continue to monitor.
--- NOTE | 2022-04-06 12:52 | PM.IMCN ---
History of Present Illness Data of Consult Service Date: 04/06/22 Primary Care Provider: Pro Nunn MD [facility] Reason for consult: Medical management An 87 years old male with PMH of BPH, colon cancer post resection, CAD among others who presents to the hospital complaining of abdominal pain with associated nausea. Workup in the emergency was consistent with SBO obstruction with possible transitional point in the distal ileum. The patient was evaluated by surgery team who admitted him for close monitoring. The patient denies having history of diabetes and denied being on medications for it. Hospitalist team assessed with to evaluate the patient and monitor him for ongoing medical problems. Review of Systems Review of Systems: No fever, chills or weakness No chest pain, palpitation No shortness of breath or coughing Very minimal abdominal pain, no more nausea or vomiting No urinary symptoms No any rash or wounds PMFSH Medical History Abnormal myocardial perfusion study Bladder neck contracture BPH (benign prostatic hyperplasia) Colon cancer Constipation Coronary artery disease Dysuria Erectile dysfunction Essential hypertension GERD (gastroesophageal reflux disease) Hematuria Hyperlipidemia, unspecified Obstructive sleep apnea Overweight (BMI 25.0-29.9) Peripheral vascular disease Prostate cancer Rectal cancer Small bowel obstruction Type 2 diabetes mellitus with hyperglycemia Urinary incontinence UTI (urinary tract infection) Family History Father Pancreatic cancer Mother No problems noted. Brother Liver cancer Surgical History History of appendectomy History of bladder surgery (~01/04/18) History of carpal tunnel release History of colectomy History of prostate surgery (~2016) Social History Household Members: Spouse and Family Housing: House Are you a primary family day care provider to a significant other at home: Yes (family day care provider for , grand daughter lives with them as well) Do you presently have visiting nurse or other home services: Yes ([employer] for ) Alcohol intake: unknown Patient Tobacco Use Status: Former Tobacco user Quit Date: years ago Tobacco use type: Cigarette e-Cigarette/Vaping Use: Never Used Second Hand Smoke Exposure: No Advance Directives: Yes Advance Directives on File: Yes Advance Directives Date on File: 09/29/20 service: Yes ([employer]) Current occupational status: retired Meds Allergies Allergy/AdvReac Type Severity Reaction Status Date / Time diphenhydramine AdvReac Intermediate Hallucinati Verified 03/24/22 10:23 [From Benadryl] ons Active Medications: Current Medications Enoxaparin Sodium (Enoxaparin Sodium 40 Mg/0.4 Ml Syringe) 40 mg SUBCUT Q24H [facility] Last Admin: 04/06/22 02:20 Dose: 40 mg Hydromorphone HCl (Hydromorphone Hcl 1 Mg/Ml Syringe) 0.5 mg IVPUSH Q4H PRN; Protocol PRN Reason: Pain, Severe (Pain Scale 7-10) Last Admin: 04/06/22 03:32 Dose: 0.5 mg Sodium Chloride (Ns) 1,000 mls @ 100 mls/hr IVCONT .Q10H [facility] Last Admin: 04/06/22 11:38 Dose: 100 mls/hr Ondansetron HCl (Ondansetron Hcl 4 Mg/2 Ml Vial) 4 mg IVPUSH Q8H PRN PRN Reason: Nausea Last Admin: 04/06/22 03:32 Dose: 4 mg Oxycodone HCl (Oxycodone Hcl Immed Release 5 Mg Tablet) 5 mg PO Q6H PRN PRN Reason: Pain, Moderate (Pain Scale 4-6 Pharmacy Consult (Consult Rx Perform Med Rec) 1 each MISCELLANE ONCE PRN PRN Reason: Consult order Sodium Chloride (0.9 % Sodium Chloride Flush 3 Ml Syringe) 3 ml IVFLUSH QSHIFT [facility] Last Admin: 04/06/22 03:06 Dose: Not Given Temazepam (Temazepam 15 Mg Capsule) 15 mg PO BEDTIME PRN PRN Reason: Insomnia Home Medications Medication Instructions Recorded Confirmed Last Taken Type docusate sodium 100 mg capsule 100 mg PO BID PRN Constipation 10/25/21 04/06/22 04/05/22 History glucosamine-chondroitin 250 mg-200 2 tab PO DAILY 10/25/21 04/06/22 04/05/22 History mg tablet isosorbide mononitrate 30 mg 30 mg PO DAILY@1700 10/25/21 04/06/22 04/05/22 History tablet,extended release 24 hr metoprolol tartrate 25 mg tablet 1 tab PO BID 04/06/22 04/06/22 04/05/22 History Physical Exam Vital Signs and Narrative: Vital Signs: Last Vital Signs Temp 99.3 F 04/06/22 11:18 Pulse 104 H 04/06/22 11:18 Resp 18 04/06/22 11:18 BP 137/72 04/06/22 11:18 Pulse Ox 96 04/06/22 11:18 O2 Del Method 04/06/22 11:18 BMI result Body Mass Index 24.1 Const: Other: Constitutional : Alert, oriented, not in distress Neck : Normal inspection, Supple Cardiovascular : RRR, no JVP, no lower extremity edema Respiratory : fair bilateral air entry, no crackles, wheezes or rhonchi Gastrointestinal: soft, lax, decreased bowel sounds, mild generalized tender, no surgical signs Skin : Warm, Dry Neurological : Alert & oriented x3, No focal deficit , CN 2-12 within normal Results Labs CBC and Chem 7: 04/06/22 05:00 04/06/22 05:00 Labs: Laboratory Results - last 24 hr 04/06/22 04/06/22 04/06/22 00:09 00:15 00:15 MCV 85.1 MCH 28.9 MCHC 34.0 RDW 12.7 Plt Count 247 MPV 9.9 Immature Gran % (Auto) 0.3 Neut % (Auto) 72.1 Lymph % (Auto) 20.4 Bertie % (Auto) 5.0 Eos % (Auto) 1.9 Baso % (Auto) 0.3 Lymph # (Auto) 2.4 Bertie # (Auto) 0.6 Eos # (Auto) 0.2 Baso # (Auto) 0.0 Abs Immat Gran (auto) 0.04 H Absolute Neuts (auto) 8.6 H Absolute Nucleated RBC 0.000 Nucleated RBC % (auto) 0.0 PT 11.6 INR 1.0 Anion Gap Estim Creat Clear Calc Estimated GFR Random Glucose Calcium Magnesium Total Bilirubin Direct Bilirubin AST ALT Alkaline Phosphatase Total Protein Albumin Lipase COVID-19 ([facility]) Negative COVID-19 Clin Com See Note 04/06/22 04/06/22 04/06/22 00:15 05:00 05:00 MCV 87.0 MCH 29.2 MCHC 33.6 RDW 13.0 Plt Count 247 MPV 10.8 Immature Gran % (Auto) 0.3 Neut % (Auto) 76.6 H Lymph % (Auto) 15.9 L Bertie % (Auto) 5.9 Eos % (Auto) 1.0 Baso % (Auto) 0.3 Lymph # (Auto) 1.8 Bertie # (Auto) 0.7 Eos # (Auto) 0.1 Baso # (Auto) 0.0 Abs Immat Gran (auto) 0.04 H Absolute Neuts (auto) 8.8 H Absolute Nucleated RBC 0.000 Nucleated RBC % (auto) 0.0 PT INR Anion Gap 17 14 Estim Creat Clear Calc 65.5 69.2 Estimated GFR > 60 > 60 Random Glucose 147 H 159 H Calcium 9.9 D 9.1 D Magnesium 2.3 Total Bilirubin 0.7 Direct Bilirubin 0.3 AST 15 ALT 15 Alkaline Phosphatase 79 Total Protein 6.8 Albumin 4.2 Lipase 13 COVID-19 ([facility]) COVID-19 Clin Com Imaging Radiologist's Impressions: Impressions Abdomen/Pelvis CT 04/06/22 00:05 IMPRESSION: * Again seen are multiple mildly dilated loops of small bowel, with several loops apparently tethered in various areas reflective of adhesions as described above. There is a relative point of transition on the current examination more distinct than on the prior examinations within the pelvis, adjacent to the rectosigmoid anastomosis within the distal ileum, past which there is relative decompression of the distal/terminal ileum, compatible with small bowel obstruction, which could be partial or early high-grade. * Trace fluid within a few of the mesenteric leaves is nonspecific, could be reactive to the small bowel obstruction, representing a degree of inflammation or possibly vascular compromise. * Additional chronic stable findings as above. Assessment and Plan (1) Small bowel obstruction: Status: Acute (2) Coronary artery disease: Qualifiers: Coronary Disease-Associated Artery/Lesion type: [place] artery [place] vs. transplanted heart: [place] heart Associated angina: without angina Qualified Code(s): I25.10 - Atherosclerotic heart disease of [place] coronary artery without angina pectoris Status: Acute (3) Type 2 diabetes mellitus with hyperglycemia: Qualifiers: Diabetes mellitus senior care insulin use: without intermediate accountant use Qualified Code(s): E11.65 - Type 2 diabetes mellitus with hyperglycemia Status: Acute Plan An 87 years old male with PMH of BPH, colon cancer post resection, CAD among others who presents to the hospital complaining of abdominal pain with associated nausea. SBO Managed by surgical team Advanced diet as tolerated CAD Hold aspirin for possible intervention, can resume once cleared from surgical point Continue isosorbide and metoprolol Hold lisinopril for now Type 2 diabetes? Patient questioning the diagnosis and reported not taking any medications for it Check HbA1c Thank you for the consult, will continue to monitor the patient with you.
[2022-04-06] MEDS: Metoprolol Tartrate 25 MG TABLET PO ×2 (13:21→20:17)
[2022-04-06 14:01] LABS: Estimated Average Glucose 114 mg/dL; Hemoglobin A1c % 5.6 %
[2022-04-06 16:00] VITALS: BP 148/79; PULSE 70; RESP 16; TEMP 36.8; O2SAT 98
[2022-04-06] MEDS: Isosorbide Mononitrate 30 MG TAB.ER.24H PO (16:15)
[2022-04-06 20:08] VITALS: BP 130/72; PULSE 64; RESP 18; TEMP 36.2; O2SAT 97
[2022-04-06 20:11] VITALS: BMI 24.6
[2022-04-06] MEDS: 0.9 % Sodium Chloride Flush 3 ML SYRINGE IVFLUSH (20:17)
[2022-04-06 23:47] VITALS: BP 123/61; PULSE 54; RESP 17; TEMP 36.7; O2SAT 94
[2022-04-07] VITALS (8 sets, daily range): BP systolic 101–179; BP diastolic 52–78; PULSE 50–80; RESP 16–20; TEMP 36–37.1; O2SAT 94–99
[2022-04-07] MEDS: Enoxaparin Sodium 40 MG/0.4 ML SYRINGE SUBCUT (03:21)
--- NOTE | 2022-04-07 07:54 | PM.PNGS ---
Subjective Subjective Date of Service: 04/07/22 Patient reports: feels better and nausea Interval history: overall patient feels improved with decreased abdominal pain. He reports several small bowel movements yesterday and continues to pass flatus. He still has some nausea however. Physical Exam Vital Signs: Vital Signs: Last Vital Signs Temp 98.3 F 04/07/22 07:26 Pulse 61 04/07/22 07:26 Resp 18 04/07/22 07:26 BP 129/61 04/07/22 07:26 Pulse Ox 95 04/07/22 07:26 O2 Del Method 04/07/22 07:26 O2 Flow Rate 99 04/07/22 03:26 BMI result Body Mass Index 24.6 Const: General: no acute distress Nutritional Appearance: well nourished Limitations: no limitations Resp: Effort & Inspection: normal respiratory effort, no audible wheezes, no cough and no respiratory distress GI: Palpation (GI): Soft to palpation, nontender, no guarding and not rigid Percussion: Yes dullness to percussion Auscultation: normal bowel sounds Rectal Exam - Male: Yes deferred Skin: Other: Warm and dry, no rash Extrem: Other: no edema Objective Data Active Medications Enoxaparin Sodium (Enoxaparin Sodium 40 Mg/0.4 Ml Syringe) 40 mg SUBCUT Q24H [facility] Last Admin: 04/07/22 03:21 Dose: 40 mg Documented By: JULITO Hydromorphone HCl (Hydromorphone Hcl 1 Mg/Ml Syringe) 0.5 mg IVPUSH Q4H PRN; Protocol PRN Reason: Pain, Severe (Pain Scale 7-10) Last Admin: 04/06/22 03:32 Dose: 0.5 mg Documented By: AMALIA Dextrose/Lactated Ringer's (D5lr) 1,000 mls @ 80 mls/hr IVCONT .[id number] [facility] Isosorbide Mononitrate (Isosorbide Mononitrate 30 Mg Tab.Er.24h) 30 mg PO DAILY@1700 [facility]; Protocol Last Admin: 04/06/22 16:15 Dose: 30 mg Documented By: JONE Metoprolol Tartrate (Metoprolol Tartrate 25 Mg Tablet) 25 mg PO BID [facility]; Protocol Last Admin: 04/06/22 20:17 Dose: 25 mg Documented By: JULITO Ondansetron HCl (Ondansetron Hcl 4 Mg/2 Ml Vial) 4 mg IVPUSH Q8H PRN PRN Reason: Nausea Last Admin: 04/06/22 03:32 Dose: 4 mg Documented By: AMALIA Oxycodone HCl (Oxycodone Hcl Immed Release 5 Mg Tablet) 5 mg PO Q6H PRN PRN Reason: Pain, Moderate (Pain Scale 4-6 Pharmacy Consult (Consult Rx Perform Med Rec) 1 each MISCELLANE ONCE PRN PRN Reason: Consult order Sodium Chloride (0.9 % Sodium Chloride Flush 3 Ml Syringe) 3 ml IVFLUSH QSHIFT [facility] Last Admin: 04/06/22 20:17 Dose: 3 ml Documented By: JULITO Temazepam (Temazepam 15 Mg Capsule) 15 mg PO BEDTIME PRN PRN Reason: Insomnia Labs CBC & Chem 7: 04/06/22 05:00 04/06/22 05:00 Labs: Laboratory Results - last 24 hr 04/06/22 05:00 Estimat Average Glucose 114 Hemoglobin A1c % 5.6 Procedures Date of Service Date of Service: 04/07/22 Progress Note: A&P Assessment and plan (1) Small bowel obstruction: Status: Acute (2) Abdominal pain: Status: Acute Plan overall the patient is improved with decreased abdominal pain and no vomiting. He reports several bowel movements yesterday. Abdomen is slightly distended but no longer tympanitic. I will check an abdominal x-ray today. If this is improved he may be able to start clear liquids later today. Patient should be out of bed and ambulating as well. Time Spent With Patient Time: Total time spent is greater than 50% in coordination of care (as documented) at patient's floor/unit and/or counseling patient: Quality Stroke Does the patient have a stroke diagnosis?: No VTE Prior VTE?: No VTE Risk Level:: Surgical - high VTE Device Contraindication: N/A - Device Ordered VTE Drug Contraindication: N/A - Med Ordered
[2022-04-07] MEDS: Metoprolol Tartrate 25 MG TABLET PO ×2 (09:02→19:51)
[2022-04-07] MEDS: 0.9 % Sodium Chloride Flush 3 ML SYRINGE IVFLUSH ×3 (09:03→19:56)
[2022-04-07] MEDS: Dextrose 5 % and Lactated Ring 1,000 ML 80 ML IVCONT ×2 (09:03→19:51)
--- NOTE | 2022-04-07 11:32 | MHC.CM.PN ---
PT REPORTS HE LIVES WITH HIS AND IS INDEPENDENT WITH CARE PT USES A CANE TO AMBULATE AND HAS NO HOME SERVICES PT HAS A HCP ON FILE AND HIS PCP IS SUNG KARIMI PT REPORTS HE IS COVID-19 VACCINATED IMM DELIVERED CURRENT DC PLAN IS HOME WITH NO SERVICES VS WITH [facility] TO TRANSPORT
--- NOTE | 2022-04-07 16:22 | P.PNIM_ITS ---
Subjective Subjective Date of Service: 04/07/22 Interval History: seen and examined this morning Follow-up for medical management, small-bowel obstruction So reporting some abdominal pain but passing flatus, few small bowel movements no abdominal pain Review of Systems Review of Systems: Yes all other systems are reviewed and are negative Constitutional Constitutional: Denies chills and Denies fever(s) Cardiovascular Cardiovascular: Denies chest pain, Denies palpitations and Denies dyspnea Respiratory Respiratory: Denies cough and Denies dyspnea Gastrointestinal Gastrointestinal: Reports abdominal pain and Denies vomiting Endocrine Endocrine: Denies palpitations Physical Exam Vital Signs: Vital Signs: Last Vital Signs Temp 97.7 F 04/07/22 15:09 Pulse 56 04/07/22 15:09 Resp 16 04/07/22 15:09 BP 153/76 H 04/07/22 15:09 Pulse Ox 94 04/07/22 15:09 O2 Del Method 04/07/22 15:09 O2 Flow Rate 99 04/07/22 03:26 BMI result Body Mass Index 24.6 Const: General: cooperative, comfortable, alert and awake Nutritional Appearance: average body habitus Orientation/consciousness: patient oriented x3 Resp: Effort & Inspection: normal respiratory effort and able to speak in complete sentences Auscultation: clear to auscultation bilaterally Cardio: Rate: regular rate Heart sounds: S1 normal heart sound present and S2 normal heart sound present GI: Other: softly distended, some tenderness left lower quadrant primarily, positive bowel sounds Neuro: General: patient oriented x3 Extrem: Other: able to move all 4 extremities spontaneously no peripheral edema Objective Data Active Medications Enoxaparin Sodium (Enoxaparin Sodium 40 Mg/0.4 Ml Syringe) 40 mg SUBCUT Q24H [facility] Last Admin: 04/07/22 03:21 Dose: 40 mg Documented By: JULITO Hydromorphone HCl (Hydromorphone Hcl 1 Mg/Ml Syringe) 0.5 mg IVPUSH Q4H PRN; Protocol PRN Reason: Pain, Severe (Pain Scale 7-10) Last Admin: 04/06/22 03:32 Dose: 0.5 mg Documented By: AMALIA Dextrose/Lactated Ringer's (D5lr) 1,000 mls @ 80 mls/hr IVCONT .[id number] [facility] Last Admin: 04/07/22 09:03 Dose: 80 mls/hr Documented By: ALEC Isosorbide Mononitrate (Isosorbide Mononitrate 30 Mg Tab.Er.24h) 30 mg PO ALLAN Y@1700 [facility]; Protocol Last Admin: 04/06/22 16:15 Dose: 30 mg Documented By: JONE Metoprolol Tartrate (Metoprolol Tartrate 25 Mg Tablet) 25 mg PO BID [facility]; Protocol Last Admin: 04/07/22 09:02 Dose: 25 mg Documented By: ALEC Ondansetron HCl (Ondansetron Hcl 4 Mg/2 Ml Vial) 4 mg IVPUSH Q8H PRN PRN Reason: Nausea Last Admin: 04/06/22 03:32 Dose: 4 mg Documented By: AMALIA Oxycodone HCl (Oxycodone Hcl Immed Release 5 Mg Tablet) 5 mg PO Q6H PRN PRN Reason: Pain, Moderate (Pain Scale 4-6 Pharmacy Consult (Consult Rx Perform Med Rec) 1 each MISCELLANE ONCE PRN PRN Reason: Consult order Sodium Chloride (0.9 % Sodium Chloride Flush 3 Ml Syringe) 3 ml IVFLUSH QSHIFT [facility] Last Admin: 04/07/22 09:03 Dose: 3 ml Documented By: ALEC Temazepam (Temazepam 15 Mg Capsule) 15 mg PO BEDTIME PRN PRN Reason: Insomnia Labs CBC & Chem 7: 04/06/22 05:00 04/06/22 05:00 Assessment and Plan (1) Small bowel obstruction: Status: Acute Plan An 87 years old male with PMH of BPH, colon cancer post resection, CAD among others who presents to the hospital complaining of abdominal pain with associated nausea. SBO Managed by surgical team Advanced diet as tolerated CAD Hold aspirin for possible intervention, can resume once cleared from surgical point Continue isosorbide and metoprolol Hold lisinopril for now Type 2 diabetes? patient reports history of borderline diabetes A1c 5.6 continue outpatient monitoring Thank you for the consult, will continue to monitor the patient with you attending- Dr. Bhatti Quality Stroke Does the patient have a stroke diagnosis?: No VTE Prior VTE?: No VTE Risk Level:: Surgical - high VTE Device Contraindication: N/A - Device Ordered VTE Drug Contraindication: N/A - Med Ordered
[2022-04-07] MEDS: Isosorbide Mononitrate 30 MG TAB.ER.24H PO (17:19)
[2022-04-08] VITALS (8 sets, daily range): BP systolic 128–177; BP diastolic 64–78; PULSE 51–66; RESP 16–20; TEMP 36.2–36.9; O2SAT 95–99
[2022-04-08] MEDS: Enoxaparin Sodium 40 MG/0.4 ML SYRINGE SUBCUT (05:55)
--- NOTE | 2022-04-08 07:26 | PM.PNGS ---
Subjective Subjective Date of Service: 04/08/22 Interval history: Feels improved, another BM yesterday. Tolerated the clear liquids without nausea or vomiting. Physical Exam Vital Signs: Vital Signs: Last Vital Signs Temp 98.5 F 04/08/22 03:08 Pulse 66 04/08/22 03:08 Resp 18 04/08/22 04:00 BP 128/64 04/08/22 03:08 Pulse Ox 95 04/08/22 03:08 O2 Del Method 04/08/22 03:08 O2 Flow Rate 99 04/07/22 03:26 BMI result Body Mass Index 24.6 Const: General: comfortable and no acute distress Nutritional Appearance: well nourished Orientation/consciousness: patient oriented x3 Limitations: no limitations Resp: Effort & Inspection: normal respiratory effort and no respiratory distress GI: Other: soft, non-distended, non-tender, normal BS, no tympany Skin: Other: warm, dry, no rash Neuro: General: patient oriented x3 Extrem: Other: no edema Objective Data Active Medications Enoxaparin Sodium (Enoxaparin Sodium 40 Mg/0.4 Ml Syringe) 40 mg SUBCUT Q24H [facility] Hydromorphone HCl (Hydromorphone Hcl 1 Mg/Ml Syringe) 0.5 mg IVPUSH Q4H PRN; Protocol PRN Reason: Pain, Severe (Pain Scale 7-10) Last Admin: 04/06/22 03:32 Dose: 0.5 mg Documented By: AMALIA Dextrose/Lactated Ringer's (D5lr) 1,000 mls @ 80 mls/hr IVCONT .[id number] COUNT [facility] Last Admin: 04/07/22 19:51 Dose: 80 mls/hr Documented By: JULITO Isosorbide Mononitrate (Isosorbide Mononitrate 30 Mg Tab.Er.24h) 30 mg PO DAILY@1700 [facility]; Protocol Last Admin: 04/07/22 17:19 Dose: 30 mg Documented By: LUZ ELENA Metoprolol Tartrate (Metoprolol Tartrate 25 Mg Tablet) 25 mg PO BID [facility]; Protocol Last Admin: 04/07/22 19:51 Dose: 25 mg Documented By: JULITO Ondansetron HCl (Ondansetron Hcl 4 Mg/2 Ml Vial) 4 mg IVPUSH Q8H PRN PRN Reason: Nausea Last Admin: 04/06/22 03:32 Dose: 4 mg Documented By: AMALIA Oxycodone HCl (Oxycodone Hcl Immed Release 5 Mg Tablet) 5 mg PO Q6H PRN PRN Reason: Pain, Moderate (Pain Scale 4-6 Pharmacy Consult (Consult Rx Perform Med Rec) 1 each MISCELLANE ONCE PRN PRN Reason: Consult order Sodium Chloride (0.9 % Sodium Chloride Flush 3 Ml Syringe) 3 ml IVFLUSH QSHIFT [facility] Last Admin: 04/07/22 19:56 Dose: 3 ml Documented By: JULITO Temazepam (Temazepam 15 Mg Capsule) 15 mg PO BEDTIME PRN PRN Reason: Insomnia Labs CBC & Chem 7: 04/06/22 05:00 04/06/22 05:00 Procedures Date of Service Date of Service: 04/08/22 Progress Note: A&P Assessment and plan (1) Small bowel obstruction: Status: Acute (2) Prostate cancer: Status: Acute (3) Abdominal pain: Status: Acute Plan Small bowel obstruction is resolving; abdominal x-ray not read but from my reading of the study, no A/F levels noted, stool throughout colon. Started clear liquids yesterday and seems to have tolerated this well. Will advance to a regular, low fiber diet today. If well tolerated, possible discharge in AM. Encouraged patient to ambulate today. Time Spent With Patient Time: Total time spent is greater than 50% in coordination of care (as documented) at patient's floor/unit and/or counseling patient: No Severe Sepsis: No Severe Sepsis Quality Stroke Does the patient have a stroke diagnosis?: No VTE Prior VTE?: No VTE Risk Level:: Surgical - high VTE Device Contraindication: N/A - Device Ordered VTE Drug Contraindication: N/A - Med Ordered
[2022-04-08] MEDS: Docusate Sodium 100 MG CAPSULE PO (08:18)
[2022-04-08] MEDS: 0.9 % Sodium Chloride Flush 3 ML SYRINGE IVFLUSH ×3 (08:18→20:13)
[2022-04-08] MEDS: lisinopriL 5 MG TABLET PO (08:18)
[2022-04-08] MEDS: Metoprolol Tartrate 25 MG TABLET PO ×2 (08:18→20:13)
--- NOTE | 2022-04-08 12:05 | HO.PM.IMPN ---
Subjective Subjective Date of Service: 04/08/22 Interval History: seen and examined this morning follow up for SBO, medical management still having some abdominal soreness had formed bowel movement diet advanced to regular diet this morning Review of Systems Review of Systems: Yes all other systems are reviewed and are negative Constitutional Constitutional: Denies chills and Denies fever(s) Cardiovascular Cardiovascular: Denies chest pain, Denies palpitations and Denies dyspnea Respiratory Respiratory: Denies cough and Denies dyspnea Gastrointestinal Gastrointestinal: Reports abdominal pain, Denies diarrhea, Denies nausea and Denies vomiting Endocrine Endocrine: Denies palpitations Physical Exam Vital Signs: Vital Signs: Last Vital Signs Temp 97.6 F 04/08/22 11:53 Pulse 51 04/08/22 11:53 Resp 18 04/08/22 11:53 BP 177/77 H 04/08/22 11:53 Pulse Ox 98 04/08/22 11:53 O2 Del Method 04/08/22 11:53 O2 Flow Rate 99 04/07/22 03:26 BMI result Body Mass Index 24.6 Const: General: cooperative, comfortable, alert and awake Nutritional Appearance: average body habitus Orientation/consciousness: patient oriented x3 Resp: Effort & Inspection: normal respiratory effort and able to speak in complete sentences Auscultation: clear to auscultation bilaterally Cardio: Rate: regular rate Heart sounds: S1 normal heart sound present and S2 normal heart sound present GI: Other: softly distended, some tenderness left lower quadrant primarily, positive bowel sounds Neuro: General: patient oriented x3 Extrem: Other: able to move all 4 extremities spontaneously no peripheral edema Objective Data Active Medications Docusate Sodium (Docusate Sodium 100 Mg Capsule) 100 mg PO BID PRN PRN Reason: Constipation Last Admin: 04/08/22 08:18 Dose: 100 mg Documented By: ALEC Enoxaparin Sodium (Enoxaparin Sodium 40 Mg/0.4 Ml Syringe) 40 mg SUBCUT Q24H [facility] Hydromorphone HCl (Hydromorphone Hcl 1 Mg/Ml Syringe) 0.5 mg IVPUSH Q4H PRN; Protocol PRN Reason: Pain, Severe (Pain Scale 7-10) Last Admin: 04/06/22 03:32 Dose: 0.5 mg Documented By: AMALIA Isosorbide Mononitrate (Isosorbide Mononitrate 30 Mg Tab.Er.24h) 30 mg PO DAILY@1700 [facility]; Protocol Last Admin: 04/07/22 17:19 Dose: 30 mg Documented By: LUZ ELENA Lisinopril (Lisinopril 5 Mg Tablet) 5 mg PO DAILY [facility]; Protocol Last Admin: 04/08/22 08:18 Dose: 5 mg Documented By: ALEC Metoprolol Tartrate (Metoprolol Tartrate 25 Mg Tablet) 25 mg PO BID [facility]; Protocol Last Admin: 04/08/22 08:18 Dose: 25 mg Documented By: ALEC Ondansetron HCl (Ondansetron Hcl 4 Mg/2 Ml Vial) 4 mg IVPUSH Q8H PRN PRN Reason: Nausea Last Admin: 04/06/22 03:32 Dose: 4 mg Documented By: AMALIA Oxycodone HCl (Oxycodone Hcl Immed Release 5 Mg Tablet) 5 mg PO Q6H PRN PRN Reason: Pain, Moderate (Pain Scale 4-6 Pharmacy Consult (Consult Rx Perform Med Rec) 1 each MISCELLANE ONCE PRN PRN Reason: Consult order Sodium Chloride (0.9 % Sodium Chloride Flush 3 Ml Syringe) 3 ml IVFLUSH QSHIFT [facility] Last Admin: 04/08/22 08:18 Dose: 3 ml Documented By: ALEC Temazepam (Temazepam 15 Mg Capsule) 15 mg PO BEDTIME PRN PRN Reason: Insomnia Labs CBC & Chem 7: 04/06/22 05:00 04/06/22 05:00 Assessment and Plan (1) Small bowel obstruction: Status: Acute Plan An 87 years old male with PMH of BPH, colon cancer post resection, CAD among others who presents to the hospital complaining of abdominal pain with associated nausea. SBO seems to be improving Managed by surgical team Advanced diet as tolerated CAD Hold aspirin for possible intervention, can resume once cleared from surgical point Continue isosorbide and metoprolol HTN BP with few high readings continue metoprolol Lisinopril resumed, if BP continues to be high can increase to 10 mg daily Type 2 diabetes? patient reports history of borderline diabetes A1c 5.6 - continue outpatient monitoring attending- Dr. Davy Smith Stroke Does the patient have a stroke diagnosis?: No VTE Prior VTE?: No VTE Risk Level:: Surgical - high VTE Device Contraindication: N/A - Device Ordered VTE Drug Contraindication: N/A - Med Ordered
--- NOTE | 2022-04-08 12:12 | MHC.CM.PN ---
PER PROGRESS NOTES, PTS DIET WILL CONTINUE TO BE ADVANCED TODAY WITH POSSIBLE DC TOMORROW MORNING. DCP CONTINUES TO BE HOME WITH NO SERVICES FAMILY TO TRANSPORT
[2022-04-08] MEDS: Isosorbide Mononitrate 30 MG TAB.ER.24H PO (16:23)
[2022-04-09 03:20] VITALS: BP 127/69; PULSE 61; RESP 14; TEMP 36.4; O2SAT 95
[2022-04-09 03:24] VITALS: BP 111/60; PULSE 67; RESP 17; TEMP 36.5; O2SAT 99
[2022-04-09] MEDS: Enoxaparin Sodium 40 MG/0.4 ML SYRINGE SUBCUT (05:59)
[2022-04-09 08:00] VITALS: BP 163/78; PULSE 64; RESP 18; TEMP 36.3; O2SAT 99
--- NOTE | 2022-04-09 08:57 | P.DS_ITS ---
DS: Providers Provider Date of Service: 04/09/22 Date of admission: 04/06/22 01:53 Date of discharge: 04/09/22 Primary care physician: Pro Nunn MD Admitting clinician: Simon Randle Consults: 04/06/22 07:10 Consult to Hospitalist Routine Consulting Provider: Hospitalist Reason For Exam: SBO, Diabetes, med management Discharging clinician: Simon Randle DS: Diagnosis Discharge Diagnosis (1) Small bowel obstruction: Status: Acute DS: Summary Hospital Course Hospital Course: Geoffrey Bone is a 87 year old male patient with a prior history of rectal CA status post low anterior resection performed by Dr. Soriano and a prior history of small-bowel obstructions now presenting with complaints of abdominal pain, dis tension, nausea without vomiting, and decreased bowel movements.? He normally takes a stool softener but stopped taking them recently.? The pain was stronger yesterday but has persisted therefore he presented to the emergency department.? He reports passing a small bowel movement yesterday and a small amount of flatus today.? He presented to the emergency department was noted to have a mildly? mohamud vated WBC.? CT of the abdomen and pelvis revealed dilated loops of small bowel with a possible transition point in the distal ileum suggestive of a small-bowel obstruction.? His colon is full stool down to the rectal vault. On examination the patient is distended with tympany to percussion. There is mild tenderness to palpation but no rebound, guarding, or rigidity. Patient was admitted and placed on bowel rest. Refusing nasogastric tube placement. He was started on IV rehydration. By the next day the patient began passing flatus and reported decreased abdominal pain no further nausea or vomiting. He was subsequently started on clear liquids. Later that day he had a large hard bowel movement. Abdominal x- ray revealed no air-fluid levels stool in the colon. The next hospital day he was advanced to a regular diet which he tolerated well. On 04/09/2022 he reported no further abdominal pain nausea, or vomiting. He is tolerating regular diet without increased pain. He feels comfortable enough for discharge to home. He will follow up in my office in approximately 1-2 weeks. He should call for increased pain, nausea, or vomiting. He should continue his stool softeners while at home. Status at Discharge Functional status at discharge: independent ambulation Overall status at discharge: patient is back to baseline Time Spent with Patient Time attestation: Total time spent providing and/or coordinating discharge services: Discharge coordination time: Less than 30 minutes Quality: Safe Use of Opioids Does Pt have an Active Cancer Diagnosis on the Problem List?: Yes Opioid Measure Date for [facility] Report: 03/10/22 Opioid Measure Time for [facility] Report: 10:09 Quality: Stroke Does the patient have a stroke diagnosis?: No Physical Exam Vital Signs: Vital Signs: Last Vital Signs Temp 97.3 F 04/09/22 08:00 Pulse 64 04/09/22 08:00 Resp 18 04/09/22 08:00 BP 163/78 H 04/09/22 08:00 Pulse Ox 99 04/09/22 08:00 O2 Del Method 04/09/22 08:00 O2 Flow Rate 5 04/09/22 03:24 BMI result Body Mass Index 24.6 Const: General: comfortable and no acute distress Nutritional Appearance: well nourished Orientation/consciousness: patient oriented x3 Limitations: no limitations Resp: Effort & Inspection: normal respiratory effort, no audible wheezes and no cough GI: Inspection: Yes normal to inspection Palpation (GI): Soft to palpation, not firm, nontender, no guarding and not rigid Percussion: Yes normal to percussion Skin: General skin exam: no rashes or lesions noted Neuro: General: patient oriented x3 Extrem: General: No edema DS: Data Imaging Abdominal x-ray: Radiologist's impression: ITS Impressions Abdomen/Pelvis CT 04/06/22 00:05 IMPRESSION: * Again seen are multiple mildly dilated loops of small bowel, with several loops apparently tethered in various areas reflective of adhesions as described above. There is a relative point of transition on the current examination more distinct than on the prior examinations within the pelvis, adjacent to the rectosigmoid anastomosis within the distal ileum, past which there is relative decompression of the distal/terminal ileum, compatible with small bowel obstruction, which could be partial or early high-grade. * Trace fluid within a few of the mesenteric leaves is nonspecific, could be reactive to the small bowel obstruction, representing a degree of inflammation or possibly vascular compromise. * Additional chronic stable findings as above. Abdomen X-Ray 04/07/22 08:22 IMPRESSION: Stool throughout the colon suggestive of constipation. No dilated loops of bowel to suggest obstruction. Discharge Plan Discharge Patient Disposition: Home, Self-Care Discharge Diagnosis: Partial small bowel obstruction due to adhesions Referrals: Simon Randle MD [Physician] - 2 Weeks Po,Pro Adame MD [Primary Care Provider] - 1 Week Discharge Medications: Continued lisinopril 5 mg tablet 5 mg PO DAILY Qty: 90 2RF docusate sodium 100 mg Capsule 100 mg PO BID PRN (Reason: Constipation) glucosamine-chondroitin 250-200 mg Tablet 2 tab PO DAILY isosorbide mononitrate 30 mg tablet extended release 24 hr 30 mg PO DAILY@1700 Rx Instructions: Takes with dinner metoprolol tartrate 25 mg tablet 1 tab PO BID aspirin [Enteric Coated Aspirin] 81 mg tablet,delayed release (DR/EC) 81 mg PO DAILY Qty: 90 4RF Discharge Orders: Discharge Order (Routine); Ordered 04/09/22 Ordered By: Simon Randle Diet: advance to usual diet Activity on Discharge: As tolerated Stand Alone Forms: Patient Portal Discharge page Care Plan Goals: Return to normal diet and activity Health Concerns: Abdominal pain, nausea Plan of Treatment: Bowel rest, IV hydration Assessment: Partial small bowel obstruction
[2022-04-09] MEDS: lisinopriL 5 MG TABLET PO (09:14)
[2022-04-09] MEDS: Metoprolol Tartrate 25 MG TABLET PO (09:14)
[2022-04-09] MEDS: 0.9 % Sodium Chloride Flush 3 ML SYRINGE IVFLUSH (09:16)
--- NOTE | 2022-04-09 10:36 | MHC.CM.PN ---
HOME - SELF CARE RN AWARE
== END 2022-04-09 13:15 | disposition home or self-care (01) | DRG 390 ==
LOC: HO.ED 04-06 00:29 → HO.EDOVER 04-06 02:11 → HO.S3 04-06 18:28
PROVIDERS: Student in an Organized Health Care Education/Training Program; Admitting Provider Surgery; Emergency Provider Emergency Medicine; PCP Internal Medicine; Visit Provider Surgery
DX: K56.51 Intestinal adhesions [bands], with partial obstruction (principal); N40.0 Benign prostatic hyperplasia without lower urinary tract symptoms; K21.9 Gastro-esophageal reflux disease without esophagitis; I25.10 Atherosclerotic heart disease of native coronary artery without angina pectoris; E11.65 Type 2 diabetes mellitus with hyperglycemia; G47.33 Obstructive sleep apnea (adult) (pediatric); Z20.822 Contact with and (suspected) exposure to COVID-19; E78.5 Hyperlipidemia, unspecified; Z92.3 Personal history of irradiation; Z85.048 Personal history of other malignant neoplasm of rectum, rectosigmoid junction, and anus; Z85.46 Personal history of malignant neoplasm of prostate; Z87.891 Personal history of nicotine dependence; Z88.8 Allergy status to other drugs, medicaments and biological substances; Z79.899 Other long term (current) drug therapy
CPT/HCPCS: 36415; 74021; 74176; 80048; 80076; 83036; 83690; 83735; 85025; 85610; 87635; 96361; 96374; 96375; 99285; J1170; J1650; J2405

== ENCOUNTER → 2022-06-30 09:11 | Outpatient (BNVA) | payer MEDICARE, OTHER, SELFPAY | PROVIDERS: PCP Internal Medicine; Visit Provider Urology | DX: N40.0 Benign prostatic hyperplasia without lower urinary tract symptoms (principal); N39.0 Urinary tract infection, site not specified; N32.0 Bladder-neck obstruction | CPT/HCPCS: 51798; 99212 ==

== ENCOUNTER → 2022-07-05 13:22 | Outpatient (BNVA) | payer MEDICARE, OTHER, SELFPAY | PROVIDERS: PCP Internal Medicine; Visit Provider Urology | DX: N32.0 Bladder-neck obstruction (principal) | CPT/HCPCS: 51701 ==

== ENCOUNTER 2022-08-15 22:36 | Inpatient (IN) | payer MEDICARE, OTHER, SELFPAY ==
--- NOTE | ~2022-08-15 | XR_ITS ---
EXAMINATION: XR ABDOMEN WITH DECUBITUS VIEWS CLINICAL INDICATION: Follow-up small bowel obstruction. COMPARISON: None TECHNIQUE: KUB FINDINGS: There is moderate scattered stool seen in colon without any cement distention. There is no organomegaly. No radiopaque calculi. There are mild degenerative disc changes L4-L5 disc level with moderate endplate sclerosis. No lytic or sclerotic process seen. There is mild scoliosis. The soft tissues are normal. XR/XR abdomen w decubitus IMPRESSION: 1. Moderate constipation. No acute process seen. Degenerative disc changes L4-L5 disc level with moderate endplate sclerosis.
--- NOTE | ~2022-08-15 | CT_ITS ---
EXAMINATION: CT ABDOMEN AND PELVIS WITHOUT CONTRAST CLINICAL INFORMATION: Bilateral abdominal pain with history of small bowel obstruction COMPARISON: CT abdomen pelvis 04/05/2022 TECHNIQUE: Multidetector volumetric imaging was performed from the superior aspect of the liver through the pubic symphysis. Sagittal and coronal reformatted images were obtained on the technologist's workstation. This CT examination was performed using dose optimization techniques as appropriate, variously including the following: *Automated exposure control *Adjustment of mA and/or kV according to patient size (this includes techniques or standardized protocols for targeted exams where dose is matched to indication/reason for exam; i.e. extremities or head) *Use of iterative reconstruction technique DLP: 610 mGy-cm FINDINGS: LUNG BASES: Calcified pleural plaques are again seen, right greater than left. LIVER, GALLBLADDER, AND BILIARY TREE: The liver is normal in size, shape, and attenuation. No focal hepatic lesion or biliary ductal dilatation is present. The gallbladder is unremarkable with no evidence of radiopaque gallstones, gallbladder wall thickening, or obvious pericholecystic inflammatory changes. PANCREAS: There is fatty infiltration of the pancreas. A tiny single punctate calcification noted in the pancreatic head. No inflammatory changes are seen to suggest pancreatitis. SPLEEN: Unremarkable. ADRENAL GLANDS: Bilaterally thickened adrenal glands are unchanged. KIDNEYS AND URETERS: The kidneys are normal in size, shape, and attenuation. No hydronephrosis, hydroureter, or calculi seen. Redemonstration of benign Bosniak class I right renal cyst needing no additional imaging or follow-up. No perinephric stranding. BLADDER: Nearly empty but unremarkable GASTROINTESTINAL TRACT: Moderate stool burden is present throughout the colon the colon is otherwise unremarkable. The appendix is not seen. There are prominent dilated loops of small bowel seen with the largest loops measuring about 4 cm in diameter. At the time of the 04/06/2022 study, bowel loops were slightly larger. The distal small bowel is decompressed and there is probably an adhesion with with a transitional area of narrowing similar to prior in the pelvis (3:70). ABDOMINAL WALL: No significant hernia is appreciated. LYMPH NODES: No retroperitoneal lymphadenopathy. VASCULAR: Marked calcific plaque present in the aorta and iliofemoral vessels. No aneurysm. PELVIC VISCERA: Prostate and seminal vesicles appear normal. OSSEOUS STRUCTURES: Degenerative changes are present throughout the spine most marked at L3-L4. No bony destructive lesions. CT/CT abdomen pelvis wo IV con IMPRESSION: 1. Continued evidence of small bowel obstruction with dilated loops of small bowel measuring up to 4 cm in diameter. The distal small bowel is decompressed and there is a transitional area of narrowing in the pelvis similar to prior. 2. Other incidental findings as described above including calcified pleural plaques, fatty infiltration of the pancreas, bilateral thickened adrenal glands and degenerative changes in the spine.
--- NOTE | 2022-08-15 22:49 | ECG_ITS ---
Test Reason : ADB PAIN Blood Pressure : / mmHG Vent. Rate : 064 BPM Atrial Rate : 064 BPM P-R Int : 186 ms QRS Dur : 074 ms QT Int : 406 ms P-R-T Axes : 027 003 060 degrees QTc Int : 418 ms Sinus rhythm with Premature atrial complexes Nonspecific ST abnormality Abnormal ECG When compared with ECG of 25-OCT-2021 09:01, Premature atrial complexes are now Present Referred By: Heather Delacruz Electronically Signed By:MARCOS SALCEDO MD
--- NOTE | 2022-08-15 22:54 | PC.NURSE ---
Pt. on youth nutritional monitor at this time
[2022-08-15 22:55] VITALS: BP 102/56; BP 106/66; PULSE 63; PULSE 70; RESP 19; TEMP 36.8; O2SAT 95; O2SAT 96; BMI 24.3
[2022-08-15 22:59] VITALS: BP 102/56; PULSE 62; RESP 19; TEMP 36.8; O2SAT 97
--- NOTE | 2022-08-15 23:09 | ED_ITS ---
HPI - Abdominal Pain General Chief Complaint: Abdominal Pain Stated Complaint: abdominal pain Time Seen by Provider: 08/15/22 22:43 Source: patient and EMS Mode of arrival: EMS Limitations: no limitations History of Present Illness HPI narrative: Patient comes to the emergency room complaining of abdominal pain that started approximately 15 hours ago. Patient states that he has had small bowel obstructions in the past, last 1 in March, the pain is very similar. Patient states that he is still able to pass some gas. However, the abdominal pain has gradually been getting worse throughout the day. Patient denies nausea vomiting or diarrhea. EMS gave the patient 90 mcg of fentanyl prior to arrival Related Data Home Medications Medication Instructions Recorded Confirmed docusate sodium 100 mg capsule 100 mg PO BID PRN Constipation 10/25/21 04/22/22 isosorbide mononitrate 30 mg 30 mg PO DAILY@1700 10/25/21 04/22/22 tablet,extended release 24 hr Previous Rx's Medication Instructions Recorded aspirin 81 mg tablet,delayed 81 mg PO DAILY #90 tabs 08/06/20 release (Enteric Coated Aspirin) lisinopril 2.5 mg tablet 2.5 mg PO DAILY 90 days #90 tabs 04/22/22 metoprolol tartrate 25 mg tablet 12.5 mg PO BID 90 days #90 tabs 04/22/22 Allergies Allergy/AdvReac Type Severity Reaction Status Date / Time diphenhydramine AdvReac Intermediate Hallucinati Verified 07/06/22 10:53 [From Tereza] ons Review of Systems Review of Systems Constitutional : No Weight loss, No Fever, No Chills, No Night Sweats, No Fatigue, No Malaise ENT/Mouth : No Hearing loss, No Ear Pain, No Nasal Congestion, No Sinus Pain, No Hoarseness, No sore throat, No Rhinorrhea, No Swallowing Difficulty Eyes: No Eye Pain, No Swelling, No Redness, No Foreign Body, No Discharge, No Vision Changes Cardiovascular : No Chest Pain, No SOB, No Dyspnea on Exertion, No Orthopnea, No Edema, No Palpitations Respiratory : No Cough, No Sputum, No Wheezing, No Smoke Exposure, No Dyspnea Gastrointestinal : No Nausea, No Vomiting, No Diarrhea, No Constipation, complaining of diffuse abdominal pain, distension Genitourinary : no irregular bleeding, No Dysuria, No Urinary Frequency, No Hematuria, No Urinary Incontinence, No Urgency, No Flank Pain, No Urinary Flow Changes, No Hesitancy Musculoskeletal : No joint pain, No Myalgias, No Joint Swelling Skin : No Skin Lesions, No rash Neuro : No Weakness, No Numbness, No Paresthesias, No Loss of Consciousness, No Dizziness, No Headache Psych : No Anxiety/Panic, No Depression, No SI/HI/AH/VH, No Social Issues, Heme/Lymph: No Bruising, No Bleeding,No Lymphadenopathy Endocrine : No Polyuria, No Polydipsia, No Temperature Intolerance [facility] Past Medical History Medical History Abnormal myocardial perfusion study Bladder neck contracture BPH (benign prostatic hyperplasia) Colon cancer Constipation Coronary artery disease Dysuria Erectile dysfunction Essential hypertension GERD (gastroesophageal reflux disease) Hematuria Hyperlipidemia, unspecified Obstructive sleep apnea Overweight (BMI 25.0-29.9) Peripheral vascular disease Prostate cancer Rectal cancer Small bowel obstruction Type 2 diabetes mellitus with hyperglycemia Urinary incontinence UTI (urinary tract infection) Surgical History History of appendectomy History of bladder surgery (~01/04/18) History of carpal tunnel release History of colectomy History of prostate surgery (~2016) Family History Family History Father Pancreatic cancer Mother No problems noted. 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 ) Alcohol intake: never Patient Tobacco Use Status: Former Tobacco user Quit Date: years ago Tobacco use type: Cigar e-Cigarette/Vaping Use: Never Used Second Hand Smoke Exposure: No Use of substances other than those prescribed or required for medical reasons: No Advance Directives: Yes Advance Directives on File: Yes Advance Directives Date on File: 09/29/20 service: Yes ([employer]) Current occupational status: retired Cognitive needs: Yes (cane) Hearing needs: Yes Vision needs: Yes Physical Exam ED Vital Signs: Vital Signs - 24 hr 08/15/22 22:55 08/15/22 22:59 08/16/22 00:46 Temperature 98.3 F 98.3 F Pulse Rate 63 62 51 Respiratory Rate 19 19 15 Blood Pressure 102/56 L 102/56 L 106/41 L Pulse Oximetry 95 97 97 Oxygen Delivery Method Room Air Room Air Room Air BMI result Body Mass Index 24.3 Const Other: Appearance: Alert. Oriented X3. Patient looks in pain, uncomfortable Eyes: Pupils equal, round and reactive to light. ENT: Pharynx normal. Neck: Normal inspection. Neck supple. No lymph nodes noted. No crepitus CVS: Normal heart rate and rhythm. Pulses normal. Normal S1 and S2 Respiratory: No respiratory distress. Breath sounds normal. No Wheezing. No rales Abdomen: Soft, mildly distended, pain to palpation in bilateral lower quadrants, no rebound or guarding Skin: Skin warm and dry. Normal skin color. Normal skin turgor. Extremities: No lower extremity edema. No Lacerations. No Rash Neuro: Oriented X 3. No motor deficit. No sensory deficit. Moving all extremities. No slurred speech. CN 2 through 12 grossly intact Psych: calm, cooperative, normal affect Course Course Course Narrative: Patient's labs and imaging pending. Patient's blood pressure is on the softer side, 102/56. We will be giving patient IV fluids to increase the blood pressu re, then we will give more pain medications. In the meantime, we will give 1 dose of Toradol MDM - Abdominal Pain Lab Data Result diagrams: 08/15/22 23:11 08/15/22 23:11 Labs: Lab Results 08/15/22 08/15/22 08/15/22 Range/Units 23:11 23:11 23:11 WBC 17.8 H (4.8-10.8) X10*3/uL RBC 5.04 (4.60-5.80) X10*6/uL Hgb 15.1 (14.0-18.0) g/dl Hct 43.6 (42.0-52.0) % MCV 86.5 (80.0-98.0) fL MCH 30.0 (27.0-33.0) pg MCHC 34.6 (31.0-36.0) g/dl RDW 12.5 (11.0-16.0) % Plt Count 283 (160-400) X10*3/uL MPV 9.7 (9.4-12.4) fL Immature Gran % (Auto) 0.3 (0.0-0.4) % Neut % (Auto) 83.3 H (45-73) % Lymph % (Auto) 10.2 L (20-40) % [place] % (Auto) 5.4 (2-11) % Eos % (Auto) 0.4 (0-4) % Baso % (Auto) 0.4 (0-2) % Lymph # (Auto) 1.8 (1.2-4.9) X10*3/uL [place] # (Auto) 1.0 (0.1-1.2) X10*3/uL Eos # (Auto) 0.1 (0.0-0.4) X10*3/uL Baso # (Auto) 0.1 (0.0-0.2) X10*3/uL Abs Immat Gran (auto) 0.06 H (0.00-0.03) X10*3/uL Absolute Neuts (auto) 14.9 H (2.0-8.3) x10*3/uL Absolute Nucleated RBC 0.000 (0.0-0.012) X10*3/uL Nucleated RBC % (auto) 0.0 (0.0-0.2) /100WBC PT 11.9 (10.0-13.1) SEC INR 1.0 (0.9-1.1) Sodium 139 (135-145) mmol/L Potassium 4.4 (3.3-5.1) mmol/L Chloride 106 (96-108) mmol/L Carbon Dioxide 21 L (22-29) mmol/L Anion Gap 16 (12-20) BUN 19 H (9-16) mg/dL Creatinine 0.86 (0.5-1.4) mg/dL Estim Creat Clear Calc 71.6 Estimated GFR > 60 Random Glucose 117 H (60-115) mg/dL Lactic Acid (0.5-2.0) mmol/L Calcium 9.1 (8.4-10.2) mg/dL Total Bilirubin 0.7 (0.0-1.0) mg/dL Direct Bilirubin 0.3 (0.0-0.5) mg/dL AST 17 (5-37) U/L ALT 13 (0-40) U/L Alkaline Phosphatase 81 (39-117) U/L Troponin I High Sens (<3.5-35.0) ng/L Total Protein 6.5 (6.5-8.0) g/dL Albumin 4.1 (3.5-5.0) g/dL Lipase 12 (8-78) U/L COVID-19 ([facility]) (Negative) COVID-19 Clin Com 08/15/22 08/15/22 08/15/22 Range/Units 23:11 23:11 23:11 WBC (4.8-10.8) X10*3/uL RBC (4.60-5.80) X10*6/uL Hgb (14.0-18.0) g/dl Hct (42.0-52.0) % MCV (80.0-98.0) fL MCH (27.0-33.0) pg MCHC (31.0-36.0) g/dl RDW (11.0-16.0) % Plt Count (160-400) X10*3/uL MPV (9.4-12.4) fL Immature Gran % (Auto) (0.0-0.4) % Neut % (Auto) (45-73) % Lymph % (Auto) (20-40) % [place] % (Auto) (2-11) % Eos % (Auto) (0-4) % Baso % (Auto) (0-2) % Lymph # (Auto) (1.2-4.9) X10*3/uL [place] # (Auto) (0.1-1.2) X10*3/uL Eos # (Auto) (0.0-0.4) X10*3/uL Baso # (Auto) (0.0-0.2) X10*3/uL Abs Immat Gran (auto) (0.00-0.03) X10*3/uL Absolute Neuts (auto) (2.0-8.3) x10*3/uL Absolute Nucleated RBC (0.0-0.012) X10*3/uL Nucleated RBC % (auto) (0.0-0.2) /100WBC PT (10.0-13.1) SEC INR (0.9-1.1) Sodium (135-145) mmol/L Potassium (3.3-5.1) mmol/L Chloride (96-108) mmol/L Carbon Dioxide (22-29) mmol/L Anion Gap (12-20) BUN (9-16) mg/dL Creatinine (0.5-1.4) mg/dL Estim Creat Clear Calc Estimated GFR Random Glucose (60-115) mg/dL Lactic Acid 1.7 (0.5-2.0) mmol/L Calcium (8.4-10.2) mg/dL Total Bilirubin (0.0-1.0) mg/dL Direct Bilirubin (0.0-0.5) mg/dL AST (5-37) U/L ALT (0-40) U/L Alkaline Phosphatase (39-117) U/L Troponin I High Sens 10.6 (<3.5-35.0) ng/L Total Protein (6.5-8.0) g/dL Albumin (3.5-5.0) g/dL Lipase (8-78) U/L COVID-19 ([facility]) Negative (Negative) COVID-19 Clin Com See Note Imaging Data CT scan - abdomen: Radiologist's impression: FINDINGS: LUNG BASES: Calcified pleural plaques are again seen, right greater than left.? LIVER, GALLBLADDER, AND BILIARY TREE: The liver is normal in size, shape, and attenuation. No focal hepatic lesion or biliary ductal dilatation is present. The gallbladder is unremarkable with no evidence of radiopaque gallstones, gallbladder wall thickening, or obvious pericholecystic inflammatory changes.? PANCREAS: There is fatty infiltration of the pancreas. A tiny single punctate calcification noted in the pancreatic head. No inflammatory changes are seen to suggest pancreatitis.? SPLEEN: Unremarkable.? ADRENAL GLANDS: Bilaterally thickened adrenal glands are unchanged.? KIDNEYS AND URETERS: The kidneys are normal in size, shape, and attenuation. No hydronephrosis, hydroureter, or calculi seen. Redemonstration of benign Bosniak class I right renal cyst needing no additional imaging or follow-up. No perinephric stranding. ? BLADDER: Nearly empty but unremarkable? GASTROINTESTINAL TRACT: Moderate stool burden is present throughout the colon the colon is otherwise unremarkable. The appendix is not seen. There are prominent dilated loops of small bowel seen with the largest loops measuring about 4 cm in diameter. At the time of the 04/06/2022 study, bowel loops were slightly larger. The distal small bowel is decompressed and there is probably an adhesion with with a transitional area of narrowing similar to prior in the pelvis (3:70). ABDOMINAL WALL: No significant hernia is appreciated.? LYMPH NODES: No retroperitoneal lymphadenopathy. VASCULAR: Marked calcific plaque present in the aorta and iliofemoral vessels. No aneurysm. PELVIC VISCERA: Prostate and seminal vesicles appear normal.? OSSEOUS STRUCTURES: Degenerative changes are present throughout the spine most marked at L3-L4. No bony destructive lesions.? CT/CT abdomen pelvis wo IV con IMPRESSION: 1.? Continued evidence of small bowel obstruction with dilated loops of small bowel measuring up to 4 cm in diameter. The distal small bowel is decompressed and there is a transitional area of narrowing in the pelvis similar to prior. 2.? Other incidental findings as described above including calcified pleural plaques, fatty infiltration of the pancreas, bilateral thickened adrenal glands and degenerative changes in the spine. Critical Care Time Critical Care Time Critical Care Time: Yes Total Critical Care Time: 45 Attestation: I have personally provided critical care time. Time includes review of lab data, radiology results, discussion with consultants, and monitoring for potential decompensation. Intervention performed as documented. Discharge Plan Discharge Clinical Impression: SBO (small bowel obstruction) Patient Disposition: Admitted As Inpatient Prescriptions: No Action docusate sodium 100 mg Capsule 100 mg PO BID PRN (Reason: Constipation) isosorbide mononitrate 30 mg tablet extended release 24 hr 30 mg PO DAILY@1700 Rx Instructions: Takes with dinner lisinopril 2.5 mg tablet 2.5 mg PO DAILY 90 Days Qty: 90 2RF metoprolol tartrate 25 mg tablet 12.5 mg PO BID 90 Days Qty: 90 1RF aspirin [Enteric Coated Aspirin] 81 mg tablet,delayed release (DR/EC) 81 mg PO DAILY Qty: 90 4RF
--- NOTE | 2022-08-15 23:12 | PC.NURSE ---
Labs and COVID swab collected and sent as ordered
[2022-08-15] MEDS: 0.9 % Sodium Chloride 1,000 ML 999 ML IVCONT ×2 (23:16→23:53)
[2022-08-15 23:17] LABS: MANUAL DIFF FLAG NO
[2022-08-15 23:19] LABS: Basophils Absolute Auto 0.1 X10*3/uL (0.0-0.2); Basophils Percent Auto 0.4 % (0-2); Eosinophils Absolute Auto 0.1 X10*3/uL (0.0-0.4); Eosinophils Percent Auto 0.4 % (0-4); Hematocrit 43.6 % (42.0-52.0); Hemoglobin 15.1 g/dl (14.0-18.0); Imm Gran Abs Auto 0.06 X10*3/uL (0.00-0.03); Imm Gran Pct Auto 0.3 % (0.0-0.4); Lymphocytes Absolute Auto 1.8 X10*3/uL (1.2-4.9); Lymphocytes Percent Auto 10.2 % (20-40); Mean Corpuscular HGB Conc 34.6 g/dl (31.0-36.0); Mean Corpuscular Volume 86.5 fL (80.0-98.0); Mean Platelet Volume 9.7 fL (9.4-12.4); Monocytes Percent Auto 5.4 % (2-11); Neutrophils Absolute Auto 14.9 x10*3/uL (2.0-8.3); Neutrophils Percent Auto 83.3 % (45-73); Platelet Count 283 X10*3/uL (160-400); Red Blood Count 5.04 X10*6/uL (4.60-5.80); Red Cell Distribution Width 12.5 % (11.0-16.0); White Blood Count 17.8 X10*3/uL (4.8-10.8)
[2022-08-15 23:25] LABS: Prothrombin Time 11.9 SEC (10.0-13.1)
[2022-08-15 23:43] LABS: COVID-19 Test Negative (Negative); IDNOW Serial# 9DB6401D; Lactic Acid 1.7 mmol/L (0.5-2.0); Troponin-I High Sensitivity 10.6 ng/L (<3.5-35.0)
[2022-08-15 23:47] LABS: Alanine Aminotransferase 13 U/L (0-40); Albumin Level 4.1 g/dL (3.5-5.0); Alkaline Phosphatase 81 U/L (39-117); Anion Gap 16 (12-20); Aspartate Amino Transferase 17 U/L (5-37); Bilirubin Direct 0.3 mg/dL (0.0-0.5); Bilirubin Total 0.7 mg/dL (0.0-1.0); Blood Urea Nitrogen 19 mg/dL (9-16); Calcium 9.1 mg/dL (8.4-10.2); Carbon Dioxide 21 mmol/L (22-29); Chloride 106 mmol/L (96-108); Creatinine Clr Calc Pharmacy 71.6; Estimated Glomerular Filt Rate > 60; Glucose Random 117 mg/dL (60-115); Lipase 12 U/L (8-78); Potassium 4.4 mmol/L (3.3-5.1); Sodium 139 mmol/L (135-145); Total Protein 6.5 g/dL (6.5-8.0)
[2022-08-15] MEDS: Ketorolac Tromethamine 30 MG/ML VIAL IVPUSH (23:53)
[2022-08-16] VITALS (7 sets, daily range): BP systolic 96–150; BP diastolic 41–70; PULSE 51–66; RESP 14–18; TEMP 36.3–36.7; O2SAT 94–98
--- NOTE | 2022-08-16 01:53 | P.HPGS_ITS ---
History of Present Illness History of Present Illness Date of Service: 08/16/22 Chief complaint: small bowel obstruction Narrative: Geoffrey Bone is a 87 year old male presenting with complaints of abdominal pain and distension. He has a prior history of colon cancer and is status post low anterior resection by Dr. Lange. He has had several prior small-bowel obstructions which have resolved non operatively. The current symptoms appear consistent with the previous episodes. He he denies nausea or vomiting, fever or chills. His last bowel movement was approximately 2 days ago. He denies any bleeding or discharge. He reports passing some flatus today but no bowel movement. A CT of the abdomen and pelvis revealed distended loops of small bowel with air-fluid level suggestive of a small-bowel obstruction. Stool was noted in the entire colon and into the rectum. White count was found to be slightly elevated. He is admitted to the surgical service for management of this small bowel obstruction. Review of Systems Constitutional: Constitutional: Denies chills, Denies fever(s), Denies headache(s) and Denies poor appetite ENT: Denies dizziness and Denies headache(s) Cardiovascular: Cardiovascular: Denies chest pain, Denies rapid heart rate, Denies palpitations and Denies slow heart rate Respiratory: Respiratory: Denies chest congestion, Denies cough, Denies pain on inspiration and Denies wheezing Gastrointestinal: Gastrointestinal: Reports abdominal pain, Denies bloating, Denies change in stool character, Reports constipation, Denies diarrhea, Reports nausea, Denies vomiting and Denies hematemesis Musculoskeletal: Musculoskeletal: Denies back pain, Denies arthralgias, Denies joint swelling and Denies numbness Integumentary/Breasts: Skin/Breast: Denies change in pigmentation, Denies erythema and Denies rash Neurologic: Denies dizziness, Denies headache(s) and Denies numbness Psychiatric: Psychiatric: Denies anxiety and Denies depression Endocrine: Endocrine: Denies palpitations Hematologic/Lymphatic: Hematologic/Lymphatic: Denies easy bleeding, Denies easy bruising and Denies lymphadenopathy Allergic/Immunologic: Allergic/Immunologic: Denies wheezing PMFSH Past Medical History Medical History Abnormal myocardial perfusion study Bladder neck contracture BPH (benign prostatic hyperplasia) Colon cancer Constipation Coronary artery disease Dysuria Erectile dysfunction Essential hypertension GERD (gastroesophageal reflux disease) Hematuria Hyperlipidemia, unspecified Obstructive sleep apnea Overweight (BMI 25.0-29.9) Peripheral vascular disease Prostate cancer Rectal cancer Small bowel obstruction Type 2 diabetes mellitus with hyperglycemia Urinary incontinence UTI (urinary tract infection) Family History Family History Father Pancreatic cancer Mother No problems noted. 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 care registered nurse to a significant other at home: Yes (post acute care registered nurse for , grand daughter lives with them as well) Do you presently have visiting nurse or other home services: Yes ([employer] for ) Alcohol intake: never Patient Tobacco Use Status: Former Tobacco user Quit Date: years ago Tobacco use type: Cigar e-Cigarette/Vaping Use: Never Used Second Hand Smoke Exposure: No Use of substances other than those prescribed or required for medical reasons: No Advance Directives: Yes Advance Directives on File: Yes Advance Directives Date on File: 09/29/20 service: Yes ([employer]) Current occupational status: retired Cognitive needs: Yes (cane) Hearing needs: Yes Vision needs: Yes Meds Allergies Allergy/AdvReac Type Severity Reaction Status Date / Time diphenhydramine AdvReac Intermediate Hallucinati Verified 07/06/22 10:53 [From Tereza] ons Active Medications: Current Medications Heparin Sodium (Porcine) (Heparin Sodium,Porcine 5,000 Unit/Ml Vial) 5,000 unit SUBCUT Q12H [facility] Hydromorphone HCl (Hydromorphone Hcl 0.5 Mg/0.5 Ml Syringe) 0.5 mg IVPUSH Q3H PRN; Protocol PRN Reason: Pain, Severe (Pain Scale 7-10) Acetaminophen (Ofirmev) 1,000 mg in 100 mls @ 400 mls/hr IV Q6H [facility] Dextrose/Lactated Ringer's (D5lr) 1,000 mls @ 125 mls/hr IVCONT .Q8H [facility] Ondansetron HCl (Ondansetron Hcl 4 Mg/2 Ml Vial) 4 mg IVPUSH QID PRN PRN Reason: Nausea Pharmacy Consult (Consult Rx Perform Med Rec) 1 each MISCELLANE ONCE PRN PRN Reason: Consult order Polyethylene Glycol (Polyethylene Glycol 3350 17 Gm Powd.Pack) 17 gm PO DAILY PRN PRN Reason: Constipation Sodium Chloride (0.9 % Sodium Chloride Flush 3 Ml Syringe) 3 ml IVFLUSH QSHIFT [facility] Zolpidem Tartrate (Zolpidem Tartrate 5 Mg Tablet) 5 mg PO BEDTIME PRN PRN Reason: Insomnia Home Medications Medication Instructions Recorded Confirmed Last Taken Type docusate sodium 100 mg capsule 100 mg PO DAILY 10/25/21 08/16/22 08/15/22 History isosorbide mononitrate 30 mg 30 mg PO DAILY@1700 10/25/21 08/16/22 08/15/22 History tablet,extended release 24 hr Physical Exam Vital Signs: Vital Signs: Last Vital Signs Temp 98.3 F 08/15/22 22:59 Pulse 51 08/16/22 00:46 Resp 15 08/16/22 00:46 BP 106/41 L 08/16/22 00:46 Pulse Ox 97 08/16/22 00:46 O2 Del Method 08/16/22 00:46 BMI result Body Mass Index 24.3 Const: General: no acute distress and well developed Nutritional Appearance: well nourished Orientation/consciousness: patient oriented x3 Limitations: no limitations HEENT: Head: Yes normocephalic and Yes atraumatic Ears: hearing grossly normal bilaterally Resp: Effort & Inspection: normal respiratory effort, no audible wheezes, no cough and no respiratory distress Auscultation: clear to auscultation bilaterally, no crackles, no rales, rhonchi and no wheezes Percussion: percussion normal Cardio: Rate: regular rate Rhythm: regular rhythm Heart sounds: S1 normal heart sound present and S2 normal heart sound present GI: Inspection: Yes distended and Yes incision Palpation (GI): Firmness to palpation present (GI), Tenderness to palpation present (GI) (Mild tenderness to deep palpation) with no rebound tenderness, no guarding, not rigid and no hernias Percussion: Yes tympanic to percussion Auscultation: normal bowel sounds Rectal Exam - Male: Yes deferred Skin: Other: Warm, dry, no rash Neuro: General: patient oriented x3 Extrem: General: Yes no clubbing, cyanosis or edema Results Results Labs: Short CBC 08/15/22 Range/Units 23:11 WBC 17.8 H (4.8-10.8) X10*3/uL Hgb 15.1 (14.0-18.0) g/dl Hct 43.6 (42.0-52.0) % Plt Count 283 (160-400) X10*3/uL BMP 08/15/22 23:11 Sodium 139 Potassium 4.4 Chloride 106 Carbon Dioxide 21 L BUN 19 H Creatinine 0.86 Calcium 9.1 Liver Function 08/15/22 Range/Units 23:11 Total Bilirubin 0.7 (0.0-1.0) mg/dL Direct Bilirubin 0.3 (0.0-0.5) mg/dL AST 17 (5-37) U/L ALT 13 (0-40) U/L Alkaline Phosphatase 81 (39-117) U/L Albumin 4.1 (3.5-5.0) g/dL Assessment and Plan (1) SBO (small bowel obstruction): Status: Acute Plan 87-year-old male patient with a prior history of colon cancer now presenting with a recurrent small-bowel obstruction. His abdomen is slightly distended and tympanitic with minimal tenderness to deep palpation. CT findings reveal: Full stool as well as dilated loops of small bowel. I recommended trying a Dulcolax suppository or possible enema to empty the colon. Will keep NPO with IV fluids pending a return of bowel function. Patient expressed understanding and agrees with the plan. Of note the stomach is not very dilated therefore we will avoid a nasogastric tube. Quality Stroke Does the patient have a stroke diagnosis?: No VTE Prior VTE?: No VTE Risk Level:: Surgical - moderate VTE Device Contraindication: N/A - Device Ordered VTE Drug Contraindication: N/A - Med Ordered Procedures Date of Service Date of Service: 08/16/22
[2022-08-16 01:56] LABS: Appearance Urine Clear; Color Urine Yellow; Glucose Urine UA Negative (Negative); Leukocyte Esterase Urine Trace (Negative); Nitrite Urine Negative (Negative); PH 5.5 (5.0-9.0); Specific Gravity - Urine 1.025 (1.005-1.025); UMIC TRIGGER UACC YES; Urine Blood Negative (Negative); Urine Ketones Trace mg/dL (Negative); Urine Protein Negative (Neg-Trace)
[2022-08-16 02:01] LABS: Bacteria Urine None Seen (None Seen); Hyaline Casts Urine 0-2 /LPF (0-2); RBC Urine 0-2 /HPF (0-2); Squamous Epithelial Cell Urine 0-2 /HPF (0-2); WBC Urine 0-5 /HPF (0-5)
[2022-08-16] MEDS: Dextrose 5 % and Lactated Ring 1,000 ML 125 ML IVCONT ×2 (02:02→13:49)
[2022-08-16] MEDS: Heparin Sodium,Porcine 5,000 UNIT/ML VIAL 5000 UNIT SUBCUT ×2 (02:20→14:42)
[2022-08-16 07:46] LABS: Anion Gap 11 (12-20); Blood Urea Nitrogen 19 mg/dL (9-16); Carbon Dioxide 22 mmol/L (22-29); Chloride 110 mmol/L (96-108); Creatinine Clr Calc Pharmacy 75.1; Estimated Glomerular Filt Rate > 60; Glucose Random 106 mg/dL (60-115); Potassium 4.2 mmol/L (3.3-5.1); Sodium 139 mmol/L (135-145)
--- NOTE | 2022-08-16 08:07 | PHA.MEDREC ---
Pharmacy Consult ? Medication Reconciliation Pharmacy has completed the medication reconciliation. Patient confirmed medications. Patient state last time he was here they change to half tablets. Confirmed on Dr. Pro Nunn that lisinopril and meotprolol were switch to 1/2 tablets. Omaira Robles, PharmD
[2022-08-16 08:58] LABS: Calcium 8.4 mg/dL (8.4-10.2)
--- NOTE | 2022-08-16 09:30 | PC.NURSE ---
pt's daughter boris aguiar ([facility], ) called [facility] [place] [place] and was updated on pt status. pt is aware.
--- NOTE | 2022-08-16 09:46 | MHC.CM.PN ---
Patient lives in a house with his , Granddaughter, Granddaughter's and her 5 Children and he uses a cane to assist with mobility. Home, self care is the goal and CM has initiated and will follow for dc planning. Patient has received Pfizer/Covid vax x2 and his PCP is Dr. Pro Nunn.IMM was addressed.
[2022-08-16] MEDS: 0.9 % Sodium Chloride Flush 3 ML SYRINGE IVFLUSH ×2 (09:57→17:29)
[2022-08-16] MEDS: bisacodyL 10 MG SUPP.RECT PR (09:57)
--- NOTE | 2022-08-16 12:13 | HO.PM.IMCN ---
History of Present Illness Data of Consult Service Date: 08/16/22 Requesting physician: Simon Randle Primary Care Provider: Pro Nunn MD HPI 87-year-old man presented to the ER with complaints of abdominal pain and distention. He has a history of small-bowel obstructions in the past. He was admitted by general surgery as the abdominal CT scan did show a of bowel obstruction. He is hemodynamically stable, denies passing any bowel movement but passing flatus. No nausea, vomiting or diarrhea. He is noted to have leukocytosis likely secondary to the obstruction no other signs of infection noted. He has no acute medical complaints at this time. Review of Systems Review of Systems: Denies any recent fever chills or decrease in appetite respiratory denies any shortness of breath coverage production cardiovascular is adjustment of any PND or edema gastrointestinal denies any dysphagia abdominal pain nausea vomiting or diarrhea genitourinary denies any dysuria frequency or hematuria musculoskeletal denies any joint pain or swelling neuropsych denies any weakness or seizures all other systems reviewed are negative [facility] Medical History Bladder neck contracture BPH (benign prostatic hyperplasia) Colon cancer Constipation Coronary artery disease Dysuria Erectile dysfunction Essential hypertension GERD (gastroesophageal reflux disease) Hematuria Hyperlipidemia, unspecified Obstructive sleep apnea Overweight (BMI 25.0-29.9) Peripheral vascular disease Prostate cancer Rectal cancer Small bowel obstruction Type 2 diabetes mellitus with hyperglycemia Urinary incontinence Family History Father Pancreatic cancer Mother No problems noted. Brother Liver cancer Surgical History History of appendectomy History of bladder surgery (~01/04/18) History of carpal tunnel release History of colectomy History of prostate surgery (~2017) Social History Household Members: Spouse Housing: House Are you a primary hearing care professional to a significant other at home: Yes (hearing care professional for , grand daughter lives with them as well) Do you presently have visiting nurse or other home services: No Alcohol intake: never Patient Tobacco Use Status: Former Tobacco user Quit Date: years ago Tobacco use type: Cigar e-Cigarette/Vaping Use: Never Used Second Hand Smoke Exposure: No Advance Directives Date on File: 09/29/20 service: Yes ([employer]) Current occupational status: retired Cognitive needs: Yes (cane) Hearing needs: Yes Vision needs: Yes Meds Allergies Allergy/AdvReac Type Severity Reaction Status Date / Time diphenhydramine AdvReac Intermediate Hallucinati Verified 08/25/22 14:17 [From Benadryl] ons Active Medications: Current Medications Docusate Sodium (Docusate Sodium 100 Mg Capsule) 100 mg PO DAILY [facility] Heparin Sodium (Porcine) (Heparin Sodium,Porcine 5,000 Unit/Ml Vial) 5,000 unit SUBCUT Q12H [facility] Last Admin: 08/16/22 02:20 Dose: 5,000 unit Hydromorphone HCl (Hydromorphone Hcl 0.5 Mg/0.5 Ml Syringe) 0.5 mg IVPUSH Q3H PRN; Protocol PRN Reason: Pain, Severe (Pain Scale 7-10) Acetaminophen (Ofirmev) 1,000 mg in 100 mls @ 400 mls/hr IV Q6H [facility] Last Infusion: 08/16/22 02:48 Dose: Infused Dextrose/Lactated Ringer's (D5lr) 1,000 mls @ 125 mls/hr IVCONT .Q8H [facility] Last Admin: 08/16/22 02:02 Dose: 125 mls/hr Isosorbide Mononitrate (Isosorbide Mononitrate 30 Mg Tab.Er.24h) 30 mg PO DAILY@1700 [facility]; Protocol Lisinopril (Lisinopril 2.5 Mg Tablet) 2.5 mg PO DAILY [facility]; Protocol Metoprolol Tartrate (Metoprolol Tartrate 12.5 Mg Halftab) 12.5 mg PO BID [facility]; Protocol Ondansetron HCl (Ondansetron Hcl 4 Mg/2 Ml Vial) 4 mg IVPUSH QID PRN PRN Reason: Nausea Pharmacy Consult (Consult Rx Perform Med Rec) 1 each MISCELLANE ONCE PRN PRN Reason: Consult order Polyethylene Glycol (Polyethylene Glycol 3350 17 Gm Powd.Pack) 17 gm PO DAILY PRN PRN Reason: Constipation Sodium Chloride (0.9 % Sodium Chloride Flush 3 Ml Syringe) 3 ml IVFLUSH QSHIFT [facility] Last Admin: 08/16/22 09:57 Dose: 3 ml Zolpidem Tartrate (Zolpidem Tartrate 5 Mg Tablet) 5 mg PO BEDTIME PRN PRN Reason: Insomnia Home Medications Medication Instructions Recorded Confirmed Last Taken Type docusate sodium 100 mg capsule 100 mg PO DAILY 10/25/21 08/25/22 08/15/22 History Physical Exam Vital Signs and Narrative: Vital Signs: Last Vital Signs Temp 97.3 F 08/16/22 11:00 Pulse 64 08/16/22 11:00 Resp 18 08/16/22 11:00 BP 136/70 08/16/22 11:00 Pulse Ox 97 08/16/22 11:00 O2 Del Method 08/16/22 11:00 BMI result Body Mass Index 24.3 Appearing in no acute distress head is normocephalic atraumatic eyes pupils are PERRLA sclera is anicteric mouth throat mucous membranes are intact and moist neck is supple no lymphadenopathy, no JVD noted lung sounds are clear to auscultation heart regular rate rhythm, clear S1, S2 positive bowel sounds, abdomen is soft, nontender neuro patient is alert x3, no focal deficits Results Labs CBC and Chem 7: 08/17/22 07:59 08/16/22 06:27 Labs: Laboratory Results - last 24 hr 08/15/22 08/15/22 08/15/22 23:11 23:11 23:11 MCV 86.5 MCH 30.0 MCHC 34.6 RDW 12.5 Plt Count 283 MPV 9.7 Immature Gran % (Auto) 0.3 Neut % (Auto) 83.3 H Lymph % (Auto) 10.2 L [place] % (Auto) 5.4 Eos % (Auto) 0.4 Baso % (Auto) 0.4 Lymph # (Auto) 1.8 [place] # (Auto) 1.0 Eos # (Auto) 0.1 Baso # (Auto) 0.1 Abs Immat Gran (auto) 0.06 H Absolute Neuts (auto) 14.9 H Absolute Nucleated RBC 0.000 Nucleated RBC % (auto) 0.0 PT 11.9 INR 1.0 Anion Gap 16 Estim Creat Clear Calc 71.6 Estimated GFR > 60 Random Glucose 117 H Lactic Acid Calcium 9.1 Total Bilirubin 0.7 Direct Bilirubin 0.3 AST 17 ALT 13 Alkaline Phosphatase 81 Troponin I High Sens Total Protein 6.5 Albumin 4.1 Lipase 12 Urine Color Urine Appearance Urine pH Ur Specific [place] Urine Protein Urine Glucose (UA) Urine Ketones Urine Blood Urine Nitrite Ur Leukocyte Esterase Urine RBC Urine WBC Ur Squamous Epith Cells Urine Bacteria Hyaline Casts COVID-19 ([facility]) COVID-19 Clin Com 08/15/22 08/15/22 08/15/22 23:11 23:11 23:11 MCV MCH MCHC RDW Plt Count MPV Immature Gran % (Auto) Neut % (Auto) Lymph % (Auto) [place] % (Auto) Eos % (Auto) Baso % (Auto) Lymph # (Auto) [place] # (Auto) Eos # (Auto) Baso # (Auto) Abs Immat Gran (auto) Absolute Neuts (auto) Absolute Nucleated RBC Nucleated RBC % (auto) PT INR Anion Gap Estim Creat Clear Calc Estimated GFR Random Glucose Lactic Acid 1.7 Calcium Total Bilirubin Direct Bilirubin AST ALT Alkaline Phosphatase Troponin I High Sens 10.6 Total Protein Albumin Lipase Urine Color Urine Appearance Urine pH Ur Specific [place] Urine Protein Urine Glucose (UA) Urine Ketones Urine Blood Urine Nitrite Ur Leukocyte Esterase Urine RBC Urine WBC Ur Squamous Epith Cells Urine Bacteria Hyaline Casts COVID-19 ([facility]) Negative COVID-19 Clin Com See Note 08/16/22 08/16/22 01:48 06:27 MCV MCH MCHC RDW Plt Count MPV Immature Gran % (Auto) Neut % (Auto) Lymph % (Auto) [place] % (Auto) Eos % (Auto) Baso % (Auto) Lymph # (Auto) [place] # (Auto) Eos # (Auto) Baso # (Auto) Abs Immat Gran (auto) Absolute Neuts (auto) Absolute Nucleated RBC Nucleated RBC % (auto) PT INR Anion Gap 11 L Estim Creat Clear Calc 75.1 Estimated GFR > 60 Random Glucose 106 Lactic Acid Calcium 8.4 D Total Bilirubin Direct Bilirubin AST ALT Alkaline Phosphatase Troponin I High Sens Total Protein Albumin Lipase Urine Color Yellow Urine Appearance Clear Urine pH 5.5 Ur Specific [place] 1.025 Urine Protein Negative Urine Glucose (UA) Negative Urine Ketones Trace Urine Blood Negative Urine Nitrite Negative Ur Leukocyte Esterase Trace H Urine RBC 0-2 Urine WBC 0-5 Ur Squamous Epith Cells 0-2 Urine Bacteria None Seen Hyaline Casts 0-2 COVID-19 ([facility]) COVID-19 Clin Com Imaging Radiologist's Impressions: Impressions Abdomen/Pelvis CT 10/17/22 23:37 IMPRESSION: 1. Continued evidence of small bowel obstruction with dilated loops of small bowel measuring up to 4 cm in diameter. The distal small bowel is decompressed and there is a transitional area of narrowing in the pelvis similar to prior. 2. Other incidental findings as described above including calcified pleural plaques, fatty infiltration of the pancreas, bilateral thickened adrenal glands and degenerative changes in the spine. Assessment and Plan (1) Small bowel obstruction: Status: Acute Plan 87-year-old man admitted by general surgery for small-bowel obstruction Small-bowel obstruction Management as per surgical team Pain management NPO Leukocytosis Likely secondary to bowel obstruction Follow closely for any other signs of infection History of coronary artery disease Aspirin on hold Continue beta-johanna and isosorbide Hypertension Continue lisinopril Monitor blood pressure closely to avoid hypotension DVT prophylaxis with heparin Attending Dr. Whitehead Full code
--- NOTE | 2022-08-16 13:30 | PC.NURSE ---
PT STATES BM X 2 (LG). AWARE.
[2022-08-16] MEDS: Isosorbide Mononitrate 30 MG TAB.ER.24H PO (17:28)
[2022-08-16] MEDS: Dextrose 5 % and Lactated Ring 1,000 ML 80 ML IVCONT (19:41)
[2022-08-16] MEDS: Metoprolol Tartrate 12.5 MG HALFTAB PO (21:19)
[2022-08-17] VITALS: BP 140/69; PULSE 54; RESP 18; TEMP 36.5; O2SAT 100
[2022-08-17] MEDS: Heparin Sodium,Porcine 5,000 UNIT/ML VIAL 5000 UNIT SUBCUT ×2 (01:35→15:51)
[2022-08-17] MEDS: Dextrose 5 % and Lactated Ring 1,000 ML 80 ML IVCONT (04:02)
--- NOTE | 2022-08-17 04:02 | PC.NURSE ---
Shift eval - 0030 to 0300 - Patient up to bathroom x1, ambulating independently. Back to bed, sleeping. Denies pain or N/V.
[2022-08-17 08:33] VITALS: BP 149/69; PULSE 54; RESP 20; TEMP 36.2; O2SAT 98
[2022-08-17 08:39] LABS: MANUAL DIFF FLAG NO
[2022-08-17 08:42] LABS: Basophils Percent Auto 0.7 % (0-2); Eosinophils Absolute Auto 0.2 X10*3/uL (0.0-0.4); Eosinophils Percent Auto 4.1 % (0-4); Hematocrit 38.3 % (42.0-52.0); Hemoglobin 12.9 g/dl (14.0-18.0); Imm Gran Abs Auto 0.01 X10*3/uL (0.00-0.03); Imm Gran Pct Auto 0.2 % (0.0-0.4); Lymphocytes Percent Auto 35.2 % (20-40); Mean Corpuscular HGB Conc 33.7 g/dl (31.0-36.0); Mean Corpuscular Hemoglobin 29.9 pg (27.0-33.0); Mean Corpuscular Volume 88.7 fL (80.0-98.0); Mean Platelet Volume 10.1 fL (9.4-12.4); Monocytes Absolute Auto 0.4 X10*3/uL (0.1-1.2); Monocytes Percent Auto 7.4 % (2-11); Neutrophils Percent Auto 52.4 % (45-73); Platelet Count 236 X10*3/uL (160-400); Red Blood Count 4.32 X10*6/uL (4.60-5.80); Red Cell Distribution Width 12.6 % (11.0-16.0); White Blood Count 5.8 X10*3/uL (4.8-10.8)
[2022-08-17] MEDS: Metoprolol Tartrate 12.5 MG HALFTAB PO ×2 (09:24→21:21)
[2022-08-17] MEDS: lisinopriL 2.5 MG TABLET PO (09:24)
[2022-08-17] MEDS: Docusate Sodium 100 MG CAPSULE PO (09:24)
[2022-08-17] MEDS: 0.9 % Sodium Chloride Flush 3 ML SYRINGE IVFLUSH ×3 (09:24→21:53)
--- NOTE | 2022-08-17 09:39 | HO.PM.IMPN ---
Subjective Subjective Date of Service: 08/17/22 Interval History: Patient has been seen today. Denies any stomach pain. Reports he has been passing gas. Denies any nausea vomiting Patient has prior history of diabetes. Physical Exam Vital Signs: Vital Signs: Last Vital Signs Temp 97.2 F 08/17/22 08:33 Pulse 54 08/17/22 08:33 Resp 20 08/17/22 08:33 BP 149/69 H 08/17/22 08:33 Pulse Ox 98 08/17/22 08:33 O2 Del Method 08/17/22 08:33 BMI result Body Mass Index 24.3 Gen: Appears be in no acute distress HEENT: NCAT, Moist mucosa. Pulmonary: Vesicular breath sounds, fair air entry CVS: Normal S1-S2 Abdomen: bowel sounds are sluggish, Soft, Nontender Extremities: Warm well perfused Neuro: Alert and awake. Objective Data Active Medications Dextrose (Dextrose 50 % 25 Gm/50 Ml Syringe) 25 gm IVPUSH Q15M PRN; Protocol PRN Reason: per Hypoglycemia Standing Ord. Docusate Sodium (Docusate Sodium 100 Mg Capsule) 100 mg PO DAILY [facility] Last Admin: 08/17/22 09:24 Dose: 100 mg Documented By: RASHAWN Glucose (Glucose Gel 15 Gm Gel..Gram.) 15 gm PO Q15M PRN; Protocol PRN Reason: per Hypoglycemia Standing Ord. Heparin Sodium (Porcine) (Heparin Sodium,Porcine 5,000 Unit/Ml Vial) 5,000 unit SUBCUT Q12H [facility] Last Admin: 08/17/22 01:35 Dose: 5,000 unit Documented By: ALLI Hydromorphone HCl (Hydromorphone Hcl 0.5 Mg/0.5 Ml Syringe) 0.5 mg IVPUSH Q3H PRN; Protocol PRN Reason: Pain, Severe (Pain Scale 7-10) Dextrose/Lactated Ringer's (D5lr) 1,000 mls @ 80 mls/hr IVCONT .[id number] [facility] Last Admin: 08/17/22 04:02 Dose: 80 mls/hr Documented By: YOUSIF Insulin Human Lispro (Insulin Lispro 100 Unit/Ml 3 Ml Vial) 0 unit SUBCUT QIDACHS [facility]; Protocol Isosorbide Mononitrate (Isosorbide Mononitrate 30 Mg Tab.Er.24h) 30 mg PO DAILY@1700 [facility]; Protocol Last Admin: 08/16/22 17:28 Dose: 30 mg Documented By: TATO Lisinopril (Lisinopril 2.5 Mg Tablet) 2.5 mg PO DAILY [facility]; Protocol Last Admin: 08/17/22 09:24 Dose: 2.5 mg Documented By: RASHAWN Metoprolol Tartrate (Metoprolol Tartrate 12.5 Mg Halftab) 12.5 mg PO BID [facility]; Protocol Last Admin: 08/17/22 09:24 Dose: 12.5 mg Documented By: RASHAWN Ondansetron HCl (Ondansetron Hcl 4 Mg/2 Ml Vial) 4 mg IVPUSH QID PRN PRN Reason: Nausea Pharmacy Consult (Consult Rx Perform Med Rec) 1 each MISCELLANE ONCE PRN PRN Reason: Consult order Polyethylene Glycol (Polyethylene Glycol 3350 17 Gm Powd.Pack) 17 gm PO DAILY PRN PRN Reason: Constipation Sodium Chloride (0.9 % Sodium Chloride Flush 3 Ml Syringe) 3 ml IVFLUSH QSHIFT [facility] Last Admin: 08/17/22 09:24 Dose: 3 ml Documented By: RASHAWN Zolpidem Tartrate (Zolpidem Tartrate 5 Mg Tablet) 5 mg PO BEDTIME PRN PRN Reason: Insomnia Labs CBC & Chem 7: 08/17/22 07:59 08/16/22 06:27 Labs: Laboratory Results - last 24 hr 08/17/22 07:59 MCV 88.7 MCH 29.9 MCHC 33.7 RDW 12.6 Plt Count 236 MPV 10.1 Immature Gran % (Auto) 0.2 Neut % (Auto) 52.4 Lymph % (Auto) 35.2 [place] % (Auto) 7.4 Eos % (Auto) 4.1 H Baso % (Auto) 0.7 Lymph # (Auto) 2.0 [place] # (Auto) 0.4 Eos # (Auto) 0.2 Baso # (Auto) 0.0 Abs Immat Gran (auto) 0.01 Absolute Neuts (auto) 3.0 Absolute Nucleated RBC 0.000 Nucleated RBC % (auto) 0.0 Microbiology Microbiology Results: Microbiology 08/16/22 01:39 Blood Culture - Preliminary Blood - Venous No growth after 24 hours. Assessment and Plan (1) SBO (small bowel obstruction): Status: Acute Plan 87-year-old male with a past medical history of hypertension, diabetes-not on medications, CAD, GERD, TORRES, peripheral vascular disease, history of prostate cancer, history of Colon cancer, BPH, bladder neck contracture; presented to the hospital with a chief complaint of abdominal pain/ distension-noted to have small-bowel obstruction; admitted to the general surgery service. Small-bowel obstruction: Patient has prior history of SBO. Patient has been followed by General surgery. history of hypertension/ CAD: Continue home metoprolol, lisinopril, Imdur. Question history of diabetes: Patient random glucose is been Well controlled. Patient not on any diabetic medications at home. Will obtain hemoglobin A1c. Quality Stroke Does the patient have a stroke diagnosis?: No VTE Prior VTE?: No VTE Risk Level:: Surgical - moderate VTE Device Contraindication: N/A - Device Ordered VTE Drug Contraindication: N/A - Med Ordered
--- NOTE | 2022-08-17 09:55 | PM.PNGS ---
Subjective Subjective Date of Service: 08/17/22 Interval history: Patient feels improved, tolerating clear liquids. Denies any abdominal pain, nausea or vomiting. Physical Exam Vital Signs: Vital Signs: Last Vital Signs Temp 97.2 F 08/17/22 08:33 Pulse 54 08/17/22 08:33 Resp 20 08/17/22 08:33 BP 149/69 H 08/17/22 08:33 Pulse Ox 98 08/17/22 08:33 O2 Del Method 08/17/22 08:33 BMI result Body Mass Index 24.3 Const: General: no acute distress Nutritional Appearance: well nourished Orientation/consciousness: patient oriented x3 Limitations: no limitations Resp: Effort & Inspection: normal respiratory effort GI: Inspection: Yes normal to inspection Palpation (GI): Soft to palpation, nontender, no guarding and not rigid Percussion: Yes normal to percussion Auscultation: normal bowel sounds Skin: General skin exam: no rashes or lesions noted Neuro: General: patient oriented x3 Extrem: General: Yes no clubbing, cyanosis or edema Objective Data Active Medications Dextrose (Dextrose 50 % 25 Gm/50 Ml Syringe) 25 gm IVPUSH Q15M PRN; Protocol PRN Reason: per Hypoglycemia Standing Ord. Docusate Sodium (Docusate Sodium 100 Mg Capsule) 100 mg PO DAILY [facility] Last Admin: 08/17/22 09:24 Dose: 100 mg Documented By: RASHAWN Glucose (Glucose Gel 15 Gm Gel..Gram.) 15 gm PO Q15M PRN; Protocol PRN Reason: per Hypoglycemia Standing Ord. Heparin Sodium (Porcine) (Heparin Sodium,Porcine 5,000 Unit/Ml Vial) 5,000 unit SUBCUT Q12H [facility] Last Admin: 08/17/22 01:35 Dose: 5,000 unit Documented By: ALLI Hydromorphone HCl (Hydromorphone Hcl 0.5 Mg/0.5 Ml Syringe) 0.5 mg IVPUSH Q3H PRN; Protocol PRN Reason: Pain, Severe (Pain Scale 7-10) Dextrose/Lactated Ringer's (D5lr) 1,000 mls @ 80 mls/hr IVCONT .[id number] [facility] Last Admin: 08/17/22 04:02 Dose: 80 mls/hr Documented By: YOUSIF Insulin Human Lispro (Insulin Lispro 100 Unit/Ml 3 Ml Vial) 0 unit SUBCUT QIDACHS [facility]; Protocol Isosorbide Mononitrate (Isosorbide Mononitrate 30 Mg Tab.Er.24h) 30 mg PO DAILY@1700 [facility]; Protocol Last Admin: 08/16/22 17:28 Dose: 30 mg Documented By: TATO Lisinopril (Lisinopril 2.5 Mg Tablet) 2.5 mg PO DAILY [facility]; Protocol Last Admin: 08/17/22 09:24 Dose: 2.5 mg Documented By: RASHAWN Metoprolol Tartrate (Metoprolol Tartrate 12.5 Mg Halftab) 12.5 mg PO BID [facility]; Protocol Last Admin: 08/17/22 09:24 Dose: 12.5 mg Documented By: RASHAWN Ondansetron HCl (Ondansetron Hcl 4 Mg/2 Ml Vial) 4 mg IVPUSH QID PRN PRN Reason: Nausea Pharmacy Consult (Consult Rx Perform Med Rec) 1 each MISCELLANE ONCE PRN PRN Reason: Consult order Polyethylene Glycol (Polyethylene Glycol 3350 17 Gm Powd.Pack) 17 gm PO DAILY PRN PRN Reason: Constipation Sodium Chloride (0.9 % Sodium Chloride Flush 3 Ml Syringe) [facility] Admin: 08/17/22 09:24 Dose: 3 ml Documented By: RASHAWN Zolpidem Tartrate (Zolpidem Tartrate 5 Mg Tablet) 5 mg PO BEDTIME PRN PRN Reason: Insomnia Labs CBC & Chem 7: 08/17/22 07:59 08/16/22 06:27 Labs: Laboratory Results - last 24 hr 08/17/22 07:59 MCV 88.7 MCH 29.9 MCHC 33.7 RDW 12.6 Plt Count 236 MPV 10.1 Immature Gran % (Auto) 0.2 Neut % (Auto) 52.4 Lymph % (Auto) 35.2 [place] % (Auto) 7.4 Eos % (Auto) 4.1 H Baso % (Auto) 0.7 Lymph # (Auto) 2.0 [place] # (Auto) 0.4 Eos # (Auto) 0.2 Baso # (Auto) 0.0 Abs Immat Gran (auto) 0.01 Absolute Neuts (auto) 3.0 Absolute Nucleated RBC 0.000 Nucleated RBC % (auto) 0.0 Microbiology Microbiology Results: Microbiology 08/16/22 01:39 Blood Culture - Preliminary Blood - Venous No growth after 24 hours. Procedures Date of Service Date of Service: 08/17/22 Progress Note: A&P Assessment and plan (1) SBO (small bowel obstruction): Status: Acute Plan Patient is much improved and tolerated clear liquids. Abdominal x-ray reviewed. Shows stool and right and left colon down into rectum. No air-fluid levels identified. Await final read. Will advance to regular diet, low-fiber. If this is tolerated patient may be discharged later today. Time Spent With Patient Time: Total time spent is greater than 50% in coordination of care (as documented) at patient's floor/unit and/or counseling patient: Quality Stroke Does the patient have a stroke diagnosis?: No VTE Prior VTE?: No VTE Risk Level:: Surgical - moderate VTE Device Contraindication: N/A - Device Ordered VTE Drug Contraindication: N/A - Med Ordered
--- NOTE | 2022-08-17 10:00 | PC.NURSE ---
patient 0.. a/ox4 . pearrla , patient wears glasses . lungs clear . heart rate regular at 56 beats per minute . skin pink warm and dry . abdomen soft . not tender . positive bowel sounds thought out . patient ambulating in [address] by sell . patient aware of plan of care .
[2022-08-17 10:14] LABS: Estimated Average Glucose 114 mg/dL; Hemoglobin A1c % 5.6 %
[2022-08-17 11:59] LABS: Glucose, Whole Blood 95 mg/dL (60-115)
--- NOTE | 2022-08-17 18:18 | PC.NURSE ---
Nurse to nurse given to Breanna RN . patient aware of plan of care .
[2022-08-17 18:19] LABS: Glucose, Whole Blood 71 mg/dL (60-115)
[2022-08-17] MEDS: bisacodyL 10 MG SUPP.RECT PR (18:22)
[2022-08-17] MEDS: Isosorbide Mononitrate 30 MG TAB.ER.24H PO (18:22)
[2022-08-17 20:07] VITALS: BP 120/59; PULSE 59; RESP 16; TEMP 36.1; O2SAT 98
[2022-08-17 21:10] LABS: Glucose, Whole Blood 100 mg/dL (60-115)
[2022-08-18] VITALS: BP 130/63; PULSE 68; RESP 17; TEMP 36.5; O2SAT 95
[2022-08-18 01:16] VITALS: BMI 22.7
[2022-08-18] MEDS: Heparin Sodium,Porcine 5,000 UNIT/ML VIAL 5000 UNIT SUBCUT (02:18)
[2022-08-18 03:50] VITALS: BP 100/54; PULSE 78; RESP 16; TEMP 36.3; O2SAT 94
--- NOTE | 2022-08-18 07:28 | PC.NURSE ---
Assumed care of patient at this time.
[2022-08-18 07:48] VITALS: BP 119/62; PULSE 62; RESP 18; TEMP 36.9; O2SAT 95
[2022-08-18 08:06] LABS: Glucose, Whole Blood 98 mg/dL (60-115)
[2022-08-18] MEDS: Metoprolol Tartrate 12.5 MG HALFTAB PO (08:25)
[2022-08-18] MEDS: lisinopriL 2.5 MG TABLET PO (08:25)
[2022-08-18] MEDS: Docusate Sodium 100 MG CAPSULE PO (08:25)
[2022-08-18] MEDS: 0.9 % Sodium Chloride Flush 3 ML SYRINGE IVFLUSH (08:26)
--- NOTE | 2022-08-18 09:07 | PM.DS ---
DS: Providers Provider Date of Service: 08/18/22 Date of admission: 08/16/22 01:44 Primary care physician: Pro Nunn MD Attending physician on admission: Simon Randle Consults: 08/16/22 01:50 Consult to Hospitalist Routine Consulting Provider: Hospitalist Reason For Exam: SBO, medical management Attending physician on discharge: Simon Randle DS: Diagnosis Discharge Diagnosis (1) SBO (small bowel obstruction): Status: Acute DS: Summary Hospital Course Hospital Course: BRIEF HPI: Geoffrey Bone is a 87 year old male presenting with complaints of abdominal pain and distension. He has a prior history of colon cancer and is status post low anterior resection by Dr. Lange. He has had several prior small-bowel obstructions which have resolved non operatively. The current symptoms appear consistent with the previous episodes. He he denies nausea or vomiting, fever or chills. His last bowel movement was approximately 2 days ago. He denies any bleeding or discharge. He reports passing some flatus today but no bowel movement. A CT of the abdomen and pelvis revealed distended loops of small bowel with air-fluid level suggestive of a small-bowel obstruction. Stool was noted in the entire colon and into the rectum. White count was found to be slightly elevated. HOSPITAL COURSE: He was admitted to the surgical service for management of the small bowel obstruction. It was recommended to empty the colon as it was full of stool and he was given a dulcolax suppository and started on a bowel regimen. In addition he was kept NPO with IV fluids pending return of bowel function. NGT was held as the stomach was not significantly dilated and he denies nausea or vomiting. He felt improved later in the day following bowel movements and was started on clear liquids. The following day, he was tolerating clear liquids and was asymptomatic.? Follow up abdominal x-ray was ordered an showed stool from the right and left colon down into rectum without air-fluid levels identified.?He was therefore advanced to regular diet, low-fiber.? He continued to feel well the following day and was tolerating the solid diet. He had a benign abd exam. He felt ready for discharge. He was discharged to home on 08/18/22 in stable condition with plan for f/u in office with Dr. Randle and his PCP. He was discharged on miralax in addition to his daily colace for a bowel regimen. Status at Discharge Functional status at discharge: independent ambulation Overall status at discharge: patient is back to baseline Time Spent with Patient Time attestation: Total time spent providing and/or coordinating discharge services: Discharge coordination time: Greater than 30 minutes Quality: Safe Use of Opioids Does Pt have an Active Cancer Diagnosis on the Problem List?: No Quality: Stroke Does the patient have a stroke diagnosis?: No Physical Exam Vital Signs: Vital Signs: Last Vital Signs Temp 98.4 F 08/18/22 07:48 Pulse 62 08/18/22 07:48 Resp 18 08/18/22 07:48 BP 119/62 08/18/22 07:48 Pulse Ox 95 08/18/22 07:48 O2 Del Method 08/18/22 07:48 BMI result Body Mass Index 22.7 Const: General: comfortable and no acute distress Orientation/consciousness: patient oriented x3 Resp: Effort & Inspection: normal respiratory effort GI: Inspection: No distended Palpation (GI): Soft to palpation, nontender and no guarding Skin: General skin exam: no rashes or lesions noted Neuro: General: patient oriented x3 DS: Data Data Completed and Pending Completed studies during hospitalization [Text1]: Procedures Dilation of Bladder Neck, Via Natural or Artificial Opening Endoscopic (09/30/20) Drainage of Bladder with Drainage Device, Via Natural or Artificial Opening Endoscopic (09/30/20) Insertion of Infusion Device into Superior Vena Cava, Percutaneous Approach (08/27/20) Ultrasonography of Superior Vena Cava, Guidance (08/27/20) Labs on day of discharge: Preliminary micro results at discharge 08/16/22 00:28 Blood Culture - Preliminary Blood - Venous No growth after 48 hours. 08/16/22 01:39 Blood Culture - Preliminary Blood - Venous No growth after 48 hours. Discharge Plan Discharge Anticipated Discharge Date/Time: 08/18/22 00:11 Patient Disposition: Home, Self-Care Discharge Diagnosis: Small bowel obstruction Referrals: Simon Randle MD [Physician] - 1 Week Po,Pro Adame MD [Primary Care Provider] - 1 Week Discharge Medications: New polyethylene glycol 3350 17 gram Powder In Packet 17 g PO DAILY PRN (Reason: Constipation) Qty: 1 0RF Continued docusate sodium 100 mg Capsule 100 mg PO DAILY isosorbide mononitrate 30 mg tablet extended release 24 hr 30 mg PO DAILY@1700 Rx Instructions: Takes with dinner lisinopril 2.5 mg tablet 2.5 mg PO DAILY 90 Days Qty: 90 2RF metoprolol tartrate 25 mg tablet 12.5 mg PO BID 90 Days Qty: 90 1RF Discharge Orders: Discharge Order (Routine); Ordered 08/18/22 Ordered By: Simon Randle Activity on Discharge: As tolerated Stand Alone Forms: Patient Portal Discharge page Care Plan Goals: return to activity Health Concerns: SBO Plan of Treatment: Diet as tolerated f/u with PCP and Dr. Randle Assessment: Improved Discharge Date/Time: 08/18/22 12:07
--- NOTE | 2022-08-18 10:04 | P.PNIM_ITS ---
Subjective Subjective Date of Service: 08/18/22 Interval History: patient is seen today. Patient reports he is tolerating coffee and yogurt. Physical Exam Vital Signs: Vital Signs: Last Vital Signs Temp 98.4 F 08/18/22 07:48 Pulse 62 08/18/22 07:48 Resp 18 08/18/22 07:48 BP 119/62 08/18/22 07:48 Pulse Ox 95 08/18/22 07:48 O2 Del Method 08/18/22 07:48 BMI result Body Mass Index 22.7 Gen: Appears be in no acute distress HEENT: NCAT, Moist mucosa. Pulmonary: Vesicular breath sounds, fair air entry CVS: Normal S1-S2 Abdomen: BS+, Soft, Nontender Extremities: Warm well perfused Neuro: Alert and awake. Objective Data Active Medications Dextrose (Dextrose 50 % 25 Gm/50 Ml Syringe) 25 gm IVPUSH Q15M PRN; Protocol PRN Reason: per Hypoglycemia Standing Ord. Docusate Sodium (Docusate Sodium 100 Mg Capsule) 100 mg PO DAILY [facility] Last Admin: 08/18/22 08:25 Dose: 100 mg Documented By: DARLYN Glucose (Glucose Gel 15 Gm Gel..Gram.) 15 gm PO Q15M PRN; Protocol PRN Reason: per Hypoglycemia Standing Ord. Heparin Sodium (Porcine) (Heparin Sodium,Porcine 5,000 Unit/Ml Vial) 5,000 unit SUBCUT Q12H [facility] Last Admin: 08/18/22 02:18 Dose: 5,000 unit Documented By: MARCIA Hydromorphone HCl (Hydromorphone Hcl 0.5 Mg/0.5 Ml Syringe) 0.5 mg IVPUSH Q3H PRN; Protocol PRN Reason: Pain, Severe (Pain Scale 7-10) Insulin Human Lispro (Insulin Lispro 100 Unit/Ml 3 Ml Vial) 0 unit SUBCUT QIDACHS [facility]; Protocol Last Admin: 08/18/22 08:00 Dose: Not Given Documented By: DARLYN Non-Admin Reason: No Insulin Coverage Isosorbide Mononitrate (Isosorbide Mononitrate 30 Mg Tab.Er.24h) 30 mg PO DAILY@1700 [facility]; Protocol Last Admin: 08/17/22 18:22 Dose: 30 mg Documented By: RASHAWN Lisinopril (Lisinopril 2.5 Mg Tablet) 2.5 mg PO DAILY [facility]; Protocol Last Admin: 08/18/22 08:25 Dose: 2.5 mg Documented By: DARLYN Metoprolol Tartrate (Metoprolol Tartrate 12.5 Mg Halftab) 12.5 mg PO BID [facility]; Protocol Last Admin: 08/18/22 08:25 Dose: 12.5 mg Documented By: DARLYN Ondansetron HCl (Ondansetron Hcl 4 Mg/2 Ml Vial) 4 mg IVPUSH QID PRN PRN Reason: Nausea Pharmacy Consult (Consult Rx Perform Med Rec) 1 each MISCELLANE ONCE PRN PRN Reason: Consult order Polyethylene Glycol (Polyethylene Glycol 3350 17 Gm Powd.Pack) 17 gm PO DAILY PRN PRN Reason: Constipation Sodium Chloride (0.9 % Sodium Chloride Flush 3 Ml Syringe) 3 ml IVFLUSH QSHIFT [facility] Last Admin: 08/18/22 08:26 Dose: 3 ml Documented By: DARLYN Zolpidem Tartrate (Zolpidem Tartrate 5 Mg Tablet) 5 mg PO BEDTIME PRN PRN Reason: Insomnia Labs CBC & Chem 7: 08/17/22 07:59 08/16/22 06:27 Labs: Laboratory Results - last 24 hr 08/17/22 08/17/22 08/17/22 07:59 11:55 18:12 POC Glucose 95 71 Estimat Average Glucose 114 Hemoglobin A1c % 5.6 08/17/22 08/18/22 19:47 07:50 POC Glucose 100 98 Estimat Average Glucose Hemoglobin A1c % Microbiology Microbiology Results: Microbiology 08/16/22 00:28 Blood Culture - Preliminary Blood - Venous No growth after 48 hours. 08/16/22 01:39 Blood Culture - Preliminary Blood - Venous No growth after 48 hours. Assessment and Plan (1) SBO (small bowel obstruction): Status: Acute Plan ?87-year-old male with a past medical history of hypertension, diabetes-not on medications, CAD, GERD, TORRES, peripheral vascular disease, history of prostate cancer, history of? Colon cancer, BPH, bladder neck contracture; presented to the hospital with a chief complaint of abdominal pain/ distension-noted to have small-bowel obstruction; admitted to the general surgery service. Small-bowel obstruction:? Patient has prior history of SBO.? Management per General surgery.? ?history of hypertension/ CAD: Continue home metoprolol, lisinopril, Imdur. Blood pressure remains stable. Patient to continue home medications. hemoglobin A1c 5.6 thank you for the consult. Medicine team will sign off please reach out to hospitalist for any questions. Quality Stroke Does the patient have a stroke diagnosis?: No VTE Prior VTE?: No VTE Risk Level:: Surgical - moderate VTE Device Contraindication: N/A - Device Ordered VTE Drug Contraindication: N/A - Med Ordered
--- NOTE | 2022-08-18 10:24 | MHC.CM.PN ---
PT WILL DC HOME TODAY WITH NO SERVICES VIA PRIVATE TRANSPORT
== END 2022-08-18 12:07 | disposition home or self-care (01) | DRG 389 ==
LOC: HO.ED 08-16 01:31 → HO.EDOVER 08-16 01:53 → HO.S3 08-17 16:08
PROVIDERS: Hospitalist; Admitting Provider Surgery; Emergency Provider Emergency Medicine; PCP Internal Medicine; Visit Provider Surgery
DX: K56.609 Unspecified intestinal obstruction, unspecified as to partial versus complete obstruction (principal); N13.8 Other obstructive and reflux uropathy; I25.10 Atherosclerotic heart disease of native coronary artery without angina pectoris; E78.5 Hyperlipidemia, unspecified; I10 Essential (primary) hypertension; D72.829 Elevated white blood cell count, unspecified; G47.33 Obstructive sleep apnea (adult) (pediatric); N40.1 Benign prostatic hyperplasia with lower urinary tract symptoms; E11.51 Type 2 diabetes mellitus with diabetic peripheral angiopathy without gangrene; Z20.822 Contact with and (suspected) exposure to COVID-19; Z85.038 Personal history of other malignant neoplasm of large intestine; Z85.46 Personal history of malignant neoplasm of prostate; Z87.891 Personal history of nicotine dependence; Z88.8 Allergy status to other drugs, medicaments and biological substances; Z79.82 Long term (current) use of aspirin; Z79.899 Other long term (current) drug therapy
CPT/HCPCS: 36415; 74021; 74176; 80048; 80076; 81001; 82947; 83036; 83605; 83690; 84484; 85025; 85610; 87040; 87635; 93005; 99285; J0131; J1885

== ENCOUNTER → 2022-08-25 14:05 | Outpatient (BNVA) | payer MEDICARE, OTHER, SELFPAY | PROVIDERS: PCP Internal Medicine; Visit Provider Surgery | DX: K56.609 Unspecified intestinal obstruction, unspecified as to partial versus complete obstruction (principal) | CPT/HCPCS: 99212 ==

== ENCOUNTER 2022-09-15 00:10 | Inpatient (IN) | payer MEDICARE, OTHER, SELFPAY ==
[2022-09-15] VITALS (14 sets, daily range): BP systolic 92–197; BP diastolic 53–93; PULSE 71–108; RESP 14–25; TEMP 36.2–36.9; O2SAT 92–99; BMI 23.7
--- NOTE | ~2022-09-15 | XR_ITS ---
EXAMINATION: XR CHEST CLINICAL INFORMATION: Cough COMPARISON: 09/04/2020 TECHNIQUE: Frontal view of the chest was obtained. FINDINGS: Multiple calcified pleural plaques are again seen bilaterally. No consolidation, pneumothorax, or pleural effusion. Cardiac and mediastinal contours are normal. Calcific atherosclerosis is present in the thoracic aorta. Degenerative spondylosis in the thoracic spine. XR/XR chest 1V IMPRESSION: No acute cardiopulmonary findings.
--- NOTE | ~2022-09-15 | CT_ITS ---
EXAMINATION: CT ABDOMEN AND PELVIS WITHOUT CONTRAST CLINICAL INFORMATION: diffuse abd pain, ?perf COMPARISON: 08/15/2022 TECHNIQUE: Multidetector volumetric imaging was performed from the superior aspect of the liver through the pubic symphysis. Sagittal and coronal reformatted images were obtained on the technologist's workstation. This CT examination was performed using dose optimization techniques as appropriate, variously including the following: *Automated exposure control *Adjustment of mA and/or kV according to patient size (this includes techniques or standardized protocols for targeted exams where dose is matched to indication/reason for exam; i.e. extremities or head) *Use of iterative reconstruction technique DLP: 610 mGy-cm FINDINGS: LUNG BASES: The visualized lung bases are unremarkable. Multiple calcified pleural plaques are evident posteriorly along the posterior chest wall and at the diaphragms, consistent with prior asbestos exposure. LIVER, GALLBLADDER, AND BILIARY TREE: The liver is normal in size, shape, and attenuation. No focal hepatic lesion or biliary ductal dilatation is present. The gallbladder is unremarkable with no evidence of radiopaque gallstones, gallbladder wall thickening, or obvious pericholecystic inflammatory changes. PANCREAS: Atrophic. A 3 mm calcification is evident in the pancreatic neck. No ductal dilatation or fat stranding. SPLEEN: Unremarkable. ADRENAL GLANDS: Unremarkable. KIDNEYS AND URETERS: A 4.1 cm simple water attenuation cysts is noted in the right kidney. No recommend imaging follow-up. Kidneys otherwise normal in size and contour. No hydronephrosis. Small vascular calcifications are evident in the right renal sinus. No significant nephrolithiasis. Ureters are normal in course and caliber. BLADDER: Unremarkable. GASTROINTESTINAL TRACT: Small bowel loops are diffusely dilated with multiple air-fluid levels. There is a transition point in the ileum at the level of the central pelvis (image 77/98 of series 3) just anterior to the rectum, similar to prior. No intraperitoneal free air or free fluid. Moderate amount of stool in the colon. Mild colonic diverticulosis. Anastomotic jodi are evident at the rectosigmoid junction. ABDOMINAL WALL: Postsurgical changes in the ventral abdomen in the midline. No hernias. LYMPH NODES: No adenopathy VASCULAR: Atherosclerotic calcifications are present in the abdominal aorta and iliac arteries. No aneurysmal dilatation. PELVIC VISCERA: The prostate and seminal vesicles are unremarkable. OSSEOUS STRUCTURES: Multilevel degenerative spondylosis in the lower thoracic and lumbar spine. No fracture or malalignment. Mild osteoarthritis in the hips and SI joints. CT/CT abdomen pelvis wo IV con IMPRESSION: 1. Small bowel obstruction with a transition point in the distal ileum in the central pelvis, similar to prior. No evidence of perforation. 2. Mild colonic diverticulosis without evidence of acute diverticulitis. Fleischner guidelines were followed.
--- NOTE | 2022-09-15 00:50 | ECG_ITS ---
Test Reason : ABD PAIN Blood Pressure : / mmHG Vent. Rate : 090 BPM Atrial Rate : 090 BPM P-R Int : 194 ms QRS Dur : 080 ms QT Int : 362 ms P-R-T Axes : 052 038 047 degrees QTc Int : 442 ms Normal sinus rhythm Nonspecific ST abnormality Lateral leads Abnormal ECG When compared with ECG of 15-AUG-2022 23:00, Premature atrial complexes are no longer Present ST now depressed in Lateral leads Referred By: Ingrid Goldsmith Electronically Signed By:MARCOS SALCEDO MD
--- NOTE | 2022-09-15 00:57 | ED_ITS ---
HPI - Abdominal Pain General Chief Complaint: Abdominal Pain Stated Complaint: Abd pain Time Seen by Provider: 09/15/22 00:44 Source: patient Mode of arrival: EMS History of Present Illness HPI narrative: 87-year-old male presents via EMS with left lower quadrant abdominal pain/mid abdominal pain that has started within the past 24 hours and is increased in severity and is now rated as a 10/10. He does have a significant past medical h istory small-bowel obstruction. He denies any fevers or chills but states he has been nauseous and had some vomiting in no longer passing flatus. Related Data Home Medications Medication Instructions Recorded Confirmed docusate sodium 100 mg capsule 100 mg PO DAILY 10/25/21 08/25/22 Previous Rx's Medication Instructions Recorded lisinopril 2.5 mg tablet 2.5 mg PO DAILY 90 days #90 tabs 04/22/22 metoprolol tartrate 25 mg tablet 12.5 mg PO BID 90 days #90 tabs 04/22/22 polyethylene glycol 3350 17 gram 17 g PO DAILY PRN Constipation #1 08/18/22 oral powder packet ea isosorbide mononitrate 30 mg 30 mg PO DAILY@1700 #90 tabs 08/19/22 tablet,extended release 24 hr Allergies Allergy/AdvReac Type Severity Reaction Status Date / Time diphenhydramine AdvReac Intermediate Hallucinati Verified 08/25/22 14:17 [From Benadryl] ons Review of Systems Review of Systems Pertinent positives and negatives as stated in HPI 10 point review of systems is otherwise negative. [facility] Past Medical History Source: nursing notes reviewed Medical History Bladder neck contracture BPH (benign prostatic hyperplasia) Colon cancer Constipation Coronary artery disease Dysuria Erectile dysfunction Essential hypertension GERD (gastroesophageal reflux disease) Hematuria Hyperlipidemia, unspecified Obstructive sleep apnea Overweight (BMI 25.0-29.9) Peripheral vascular disease Prostate cancer Rectal cancer SBO (small bowel obstruction) Small bowel obstruction Type 2 diabetes mellitus with hyperglycemia Urinary incontinence Surgical History History of appendectomy History of bladder surgery (~01/04/18) History of carpal tunnel release History of colectomy History of prostate surgery (~2016) Family History Family History Father Pancreatic cancer Mother No problems noted. Brother Liver cancer Social History Social History Household Members: Spouse Housing: House Are you a primary prompt care rn to a significant other at home: Yes (prompt care rn for , grand daughter lives with them as well) Do you presently have visiting nurse or other home services: No Alcohol intake: never Patient Tobacco Use Status: Former Tobacco user Quit Date: years ago Tobacco use type: Cigar e-Cigarette/Vaping Use: Never Used Second Hand Smoke Exposure: No Advance Directives: Yes Advance Directives on File: Yes Advance Directives Date on File: 09/29/20 service: Yes ([employer]) Current occupational status: retired Cognitive needs: Yes (cane) Hearing needs: Yes Vision needs: Yes Physical Exam ED Vital Signs: Vital Signs - 24 hr 09/15/22 00:47 09/15/22 00:58 Temperature 98.2 F Pulse Rate 98 Respiratory Rate 20 24 H Blood Pressure 92/53 L Pulse Oximetry 98 Oxygen Delivery Method Room Air BMI result Body Mass Index 23.7 VITAL SIGNS: Reviewed. GENERAL: Well developed, well nourished, in moderate to severe distress. HEAD: Normocephalic/atraumatic EYES: PERRLA, EOMI EARS: Ext canals without abnormality OROPHARYNX: no oral lesions noted, posterior pharynx clear LUNGS: Normal breath sounds. No adventitious sounds or accessory muscle use. SpO2<98> CARDIOVASCULAR: Regular rate and rhythm without noted murmurs ABDOMEN: Soft, diffusely tender, distended without bowel sounds. MUSCULOSKELETAL: No tenderness, deformities, or effusions noted on gross inspection. EXTREMITIES: No cyanosis, clubbing or edema. SKIN: Inspection of the skin reveals no rashes NEUROLOGIC: Alert and oriented x 4. Strength and sensation to light touch were grossly intact x 4. Course Course Course Narrative: 87-year-old male with history and clinical presentation most consistent with likely SBO or possible perforation. On review of all investigations evidence to suggest SBO without evidence of perforation, the leukocytosis and elevated lactic acid is noted and as patient is afebrile this is felt to be secondary to a combination of dehydration and stress/reactive. Patient receiving IV fluids for lactic acidosis likely secondary to dehydration. 0152: I discussed with the general surgeon who recommends that patient be admitted to Medicine with General surgery on consultation has this patient is unlikely to undergo surgical intervention. 0156: I discussed case with the inpatient hospitalist who accepts admission. Medications Administered Discontinued Medications Generic Name Dose Route Start Last Admin Trade Name Jewels PRN Reason Stop Dose Admin Fentanyl 25 mcg 09/15/22 00:54 09/15/22 00:58 Fentanyl Citrate/Pf 100 Mcg/2 Ml Vial IVPUSH 09/15/22 00:55 25 mcg ONCE ONE Administration Protocol MDM - Abdominal Pain Lab Data Result diagrams: 09/15/22 01:38 09/15/22 01:38 Labs: Lab Results 09/15/22 09/15/22 09/15/22 Range/Units 01:38 01:38 01:38 WBC 15.4 H (4.8-10.8) X10*3/uL RBC 5.64 D (4.60-5.80) X10*6/uL Hgb 16.6 D (14.0-18.0) g/dl Hct 49.6 D (42.0-52.0) % MCV 87.9 (80.0-98.0) fL MCH 29.4 (27.0-33.0) pg MCHC 33.5 (31.0-36.0) g/dl RDW 12.3 (11.0-16.0) % Plt Count 284 (160-400) X10*3/uL MPV 10.1 (9.4-12.4) fL Immature Gran % (Auto) 0.3 (0.0-0.4) % Neut % (Auto) 78.8 H (45-73) % Lymph % (Auto) 15.8 L (20-40) % [place] % (Auto) 4.4 (2-11) % Eos % (Auto) 0.4 (0-4) % Baso % (Auto) 0.3 (0-2) % Lymph # (Auto) 2.4 (1.2-4.9) X10*3/uL [place] # (Auto) 0.7 (0.1-1.2) X10*3/uL Eos # (Auto) 0.1 (0.0-0.4) X10*3/uL Baso # (Auto) 0.1 (0.0-0.2) X10*3/uL Abs Immat Gran (auto) 0.05 H (0.00-0.03) X10*3/uL Absolute Neuts (auto) 12.1 H (2.0-8.3) x10*3/uL Absolute Nucleated RBC 0.000 (0.0-0.012) X10*3/uL Nucleated RBC % (auto) 0.0 (0.0-0.2) /100WBC PT 11.4 (10.0-13.1) SEC INR 1.0 (0.9-1.1) Sodium 141 (135-145) mmol/L Potassium 4.4 (3.3-5.1) mmol/L Chloride 106 (96-108) mmol/L Carbon Dioxide 20 L (22-29) mmol/L Anion Gap 19 (12-20) BUN 22 H (9-16) mg/dL Creatinine 1.11 (0.5-1.4) mg/dL Estim Creat Clear Calc 55.5 Estimated GFR > 60 Random Glucose 155 H (60-115) mg/dL Lactic Acid (0.5-2.0) mmol/L Calcium 10.4 H D (8.4-10.2) mg/dL Total Bilirubin 0.9 (0.0-1.0) mg/dL AST 19 (5-37) U/L ALT 26 (0-40) U/L Alkaline Phosphatase 92 (39-117) U/L Total Protein 7.3 (6.5-8.0) g/dL Albumin 4.6 (3.5-5.0) g/dL 09/15/22 Range/Units 01:38 WBC (4.8-10.8) X10*3/uL RBC (4.60-5.80) X10*6/uL Hgb (14.0-18.0) g/dl Hct (42.0-52.0) % MCV (80.0-98.0) fL MCH (27.0-33.0) pg MCHC (31.0-36.0) g/dl RDW (11.0-16.0) % Plt Count (160-400) X10*3/uL MPV (9.4-12.4) fL Immature Gran % (Auto) (0.0-0.4) % Neut % (Auto) (45-73) % Lymph % (Auto) (20-40) % [place] % (Auto) (2-11) % Eos % (Auto) (0-4) % Baso % (Auto) (0-2) % Lymph # (Auto) (1.2-4.9) X10*3/uL [place] # (Auto) (0.1-1.2) X10*3/uL Eos # (Auto) (0.0-0.4) X10*3/uL Baso # (Auto) (0.0-0.2) X10*3/uL Abs Immat Gran (auto) (0.00-0.03) X10*3/uL Absolute Neuts (auto) (2.0-8.3) x10*3/uL Absolute Nucleated RBC (0.0-0.012) X10*3/uL Nucleated RBC % (auto) (0.0-0.2) /100WBC PT (10.0-13.1) SEC INR (0.9-1.1) Sodium (135-145) mmol/L Potassium (3.3-5.1) mmol/L Chloride (96-108) mmol/L Carbon Dioxide (22-29) mmol/L Anion Gap (12-20) BUN (9-16) mg/dL Creatinine (0.5-1.4) mg/dL Estim Creat Clear Calc Estimated GFR Random Glucose (60-115) mg/dL Lactic Acid 2.5 H* (0.5-2.0) mmol/L Calcium (8.4-10.2) mg/dL Total Bilirubin (0.0-1.0) mg/dL AST (5-37) U/L ALT (0-40) U/L Alkaline Phosphatase (39-117) U/L Total Protein (6.5-8.0) g/dL Albumin (3.5-5.0) g/dL ECG Data Attestation: I personally reviewed and interpreted this ECG as follows: Prior ECG tracings: available for review Interpretation: Normal sinus rhythm, HR-90, no STEMI, PA/QRS/QTC are within normal limits. Critical Care Time Critical Care Time Critical Care Time: Yes Total Critical Care Time: 30 Attestation: I personally attest to this time spent taking care of the patient. Discharge Plan Discharge Clinical Impression: SBO (small bowel obstruction), Dehydration Patient Disposition: Admitted As Inpatient Prescriptions: No Action isosorbide mononitrate 30 mg tablet extended release 24 hr 30 mg PO DAILY@1700 Qty: 90 3RF Rx Instructions: Takes with dinner docusate sodium 100 mg Capsule 100 mg PO DAILY polyethylene glycol 3350 17 gram Powder In Packet 17 g PO DAILY PRN (Reason: Constipation) Qty: 1 0RF lisinopril 2.5 mg tablet 2.5 mg PO DAILY 90 Days Qty: 90 2RF metoprolol tartrate 25 mg tablet 12.5 mg PO BID 90 Days Qty: 90 1RF
[2022-09-15] MEDS: fentaNYL citrate/PF 100 MCG/2 ML VIAL 25 MCG IVPUSH (00:58)
[2022-09-15 01:50] LABS: Basophils Absolute Auto 0.1 X10*3/uL (0.0-0.2); Basophils Percent Auto 0.3 % (0-2); Eosinophils Absolute Auto 0.1 X10*3/uL (0.0-0.4); Eosinophils Percent Auto 0.4 % (0-4); Hematocrit 49.6 % (42.0-52.0); Hemoglobin 16.6 g/dl (14.0-18.0); Imm Gran Abs Auto 0.05 X10*3/uL (0.00-0.03); Imm Gran Pct Auto 0.3 % (0.0-0.4); Lymphocytes Absolute Auto 2.4 X10*3/uL (1.2-4.9); Lymphocytes Percent Auto 15.8 % (20-40); MANUAL DIFF FLAG NO; Mean Corpuscular HGB Conc 33.5 g/dl (31.0-36.0); Mean Corpuscular Hemoglobin 29.4 pg (27.0-33.0); Mean Corpuscular Volume 87.9 fL (80.0-98.0); Mean Platelet Volume 10.1 fL (9.4-12.4); Monocytes Absolute Auto 0.7 X10*3/uL (0.1-1.2); Monocytes Percent Auto 4.4 % (2-11); Neutrophils Absolute Auto 12.1 x10*3/uL (2.0-8.3); Neutrophils Percent Auto 78.8 % (45-73); Platelet Count 284 X10*3/uL (160-400); Red Blood Count 5.64 X10*6/uL (4.60-5.80); Red Cell Distribution Width 12.3 % (11.0-16.0); White Blood Count 15.4 X10*3/uL (4.8-10.8)
[2022-09-15 01:56] LABS: Prothrombin Time 11.4 SEC (10.0-13.1)
[2022-09-15 02:13] LABS: Alanine Aminotransferase 26 U/L (0-40); Albumin Level 4.6 g/dL (3.5-5.0); Alkaline Phosphatase 92 U/L (39-117); Anion Gap 19 (12-20); Aspartate Amino Transferase 19 U/L (5-37); Bilirubin Total 0.9 mg/dL (0.0-1.0); Blood Urea Nitrogen 22 mg/dL (9-16); Calcium 10.4 mg/dL (8.4-10.2); Carbon Dioxide 20 mmol/L (22-29); Chloride 106 mmol/L (96-108); Creatinine Clr Calc Pharmacy 55.5; Estimated Glomerular Filt Rate > 60; Glucose Random 155 mg/dL (60-115); Potassium 4.4 mmol/L (3.3-5.1); Sodium 141 mmol/L (135-145); Total Protein 7.3 g/dL (6.5-8.0)
[2022-09-15 02:16] LABS: Lactic Acid 2.5 mmol/L (0.5-2.0)
[2022-09-15 02:26] LABS: Influenza A PCR NEGATIVE (Negative); Influenza B PCR NEGATIVE (Negative); Resp Syncy Virus RNA Qual PCR NEGATIVE (Negative); SARS COV2 PCR INHOUSE NEGATIVE (Negative)
--- NOTE | 2022-09-15 02:32 | PC.NURSE ---
Attempted to insert NGT. Attempt was unsuccessful, and now pt. is adamantly refusing additional attempts. Koko Goldsmith MD notified
[2022-09-15] MEDS: 0.9 % Sodium Chloride 1,000 ML 999 ML IV (02:39)
--- NOTE | 2022-09-15 02:39 | PC.NURSE ---
Pt. vomited appx. 600ccs of zion curtis emesis. Provider aware
--- NOTE | 2022-09-15 02:45 | PM.IMHP ---
History of Present Illness Date of Service: 09/15/22 Chief Complaint: Abdominal pain This is an 87-year-old male with past medical history of colon cancer status post low anterior resection, and recurrent small-bowel obstruction that have resolved non operatively, type 2 diabetes, history of prostate cancer, hypertension presents to the hospital with complaints of abdominal pain. Patient reports that pain started in the lower abdomen the day prior to presentation, he has had nausea with no vomiting, he continues to have small-bowel movements and passing gas but the pain was so intolerable he decided to come to the hospital. Patient denies any chest pain, no shortness of breath, no urinary symptoms and no lower extremity edema. On arrival to the to the ED patient hemodynamically stable with no significant abnormal vitals Labs are significant for WBC count of 15.4, lactic acid of 2.5, urine is negative, chest x-ray negative, abdominal CT shows small bowel obstruction with a transition point in the distal ileum, mild colonic diverticulosis without evidence of acute diverticulitis Case was discussed with surgery, no surgical intervention at this time Review of Systems Review of Systems: Yes all other systems are reviewed and are negative [facility] Medical History Bladder neck contracture BPH (benign prostatic hyperplasia) Colon cancer Constipation Coronary artery disease Dysuria Erectile dysfunction Essential hypertension GERD (gastroesophageal reflux disease) Hematuria Hyperlipidemia, unspecified Obstructive sleep apnea Overweight (BMI 25.0-29.9) Peripheral vascular disease Prostate cancer Rectal cancer SBO (small bowel obstruction) Small bowel obstruction Type 2 diabetes mellitus with hyperglycemia Urinary incontinence Family History Father Pancreatic cancer Mother No problems noted. Brother Liver cancer Surgical History History of appendectomy History of bladder surgery (~01/04/18) History of carpal tunnel release History of colectomy History of prostate surgery (~2016) Social History Household Members: Spouse Housing: House Are you a primary care coordination manager to a significant other at home: Yes (care coordination manager for , grand daughter lives with them as well) Do you presently have visiting nurse or other home services: No Alcohol intake: never Patient Tobacco Use Status: Former Tobacco user Quit Date: years ago Tobacco use type: Cigar e-Cigarette/Vaping Use: Never Used Second Hand Smoke Exposure: No Advance Directives: Yes Advance Directives on File: Yes Advance Directives Date on File: 09/29/20 service: Yes ([employer]) Current occupational status: retired Cognitive needs: Yes (cane) Hearing needs: Yes Vision needs: Yes Meds Allergies Allergy/AdvReac Type Severity Reaction Status Date / Time diphenhydramine AdvReac Intermediate Hallucinati Verified 08/25/22 14:17 [From Benadryl] ons Physical Exam Vital Signs and Narrative: Vital Signs: Last Vital Signs Temp 98.0 F 09/15/22 02:41 Pulse 95 09/15/22 02:41 Resp 20 09/15/22 02:41 BP 146/58 H 09/15/22 02:41 Pulse Ox 99 09/15/22 02:41 O2 Del Method 09/15/22 02:41 BMI result Body Mass Index 23.7 Const: General: cooperative and no acute distress Orientation/consciousness: patient oriented x3 Eyes: General: appearance normal, both eyes and all related structures Pupils: Equal, round and reactive pupils present Resp: Effort & Inspection: normal respiratory effort, able to speak in complete sentences and abnormal respiratory pattern Auscultation: clear to auscultation bilaterally Cardio: Rate: regular rate Rhythm: regular rhythm GI: Other: Abdomen is distended, hyperactive bowel sounds, under on deep palpation, no rebound or guarding Skin: General skin exam: no rashes or lesions noted Neuro: General: patient oriented x3 Cranial nerves: Yes Equal, round and reactive pupils present Cognition (Neuro): normal cognition Extrem: General: Yes normal to inspection and Yes no pedal edema Results Labs CBC and Chem 7: 09/15/22 03:59 09/15/22 04:00 Labs: Laboratory Results - last 24 hr 09/15/22 09/15/22 09/15/22 01:16 01:38 01:38 MCV 87.9 MCH 29.4 MCHC 33.5 RDW 12.3 Plt Count 284 MPV 10.1 Immature Gran % (Auto) 0.3 Neut % (Auto) 78.8 H Lymph % (Auto) 15.8 L [place] % (Auto) 4.4 Eos % (Auto) 0.4 Baso % (Auto) 0.3 Lymph # (Auto) 2.4 [place] # (Auto) 0.7 Eos # (Auto) 0.1 Baso # (Auto) 0.1 Abs Immat Gran (auto) 0.05 H Absolute Neuts (auto) 12.1 H Absolute Nucleated RBC 0.000 Nucleated RBC % (auto) 0.0 PT INR Anion Gap 19 Estim Creat Clear Calc 55.5 Estimated GFR > 60 Random Glucose 155 H Lactic Acid Calcium 10.4 H D Total Bilirubin 0.9 AST 19 ALT 26 Alkaline Phosphatase 92 Total Protein 7.3 Albumin 4.6 Influenza Type A (PCR) NEGATIVE Influenza Type B (PCR) NEGATIVE RSV RNA Qual (PCR) NEGATIVE SARS-CoV-2 RNA (RT-PCR) NEGATIVE 09/15/22 09/15/22 01:38 01:38 MCV MCH MCHC RDW Plt Count MPV Immature Gran % (Auto) Neut % (Auto) Lymph % (Auto) [place] % (Auto) Eos % (Auto) Baso % (Auto) Lymph # (Auto) [place] # (Auto) Eos # (Auto) Baso # (Auto) Abs Immat Gran (auto) Absolute Neuts (auto) Absolute Nucleated RBC Nucleated RBC % (auto) PT 11.4 INR 1.0 Anion Gap Estim Creat Clear Calc Estimated GFR Random Glucose Lactic Acid 2.5 H* Calcium Total Bilirubin AST ALT Alkaline Phosphatase Total Protein Albumin Influenza Type A (PCR) Influenza Type B (PCR) RSV RNA Qual (PCR) SARS-CoV-2 RNA (RT-PCR) Imaging Radiologist's Impressions: Impressions Abdomen/Pelvis CT 09/15/22 01:15 IMPRESSION: 1. Small bowel obstruction with a transition point in the distal ileum in the central pelvis, similar to prior. No evidence of perforation. 2. Mild colonic diverticulosis without evidence of acute diverticulitis. Fleischner guidelines were followed. Chest X-Ray 09/15/22 01:30 IMPRESSION: No acute cardiopulmonary findings. Assessment and Plan (1) SBO (small bowel obstruction): Status: Acute (2) Lactic acidosis: Status: Acute (3) Leukocytosis: Status: Acute Plan This is an 87-year-old male with past medical history of recurrent small-bowel obstruction requiring hospitalization and non operative decompression presents to the hospital with complaints of abdominal pain found to have small-bowel obstruction # small-bowel obstruction - patient hemodynamically stable, CT abdomen as above - has had small-bowel obstruction in the past with non operative management - patient at this time reports that he is still moving small amount of BM - will admit with consult to surgery - pain control - IV fluids # lactic acidosis - likely secondary to dehydration - no evidence of sepsis - IV fluids - trend lactic acid # leukocytosis - likely reactive -no source or evidence of infection - afebrile - UA negative, chest x-ray negative, abdominal CT with no diverticulitis, or colitis - follow CBC # diabetes - low-dose sliding scale insulin - diabetic diet # hypertension - stable - hold antihypertensives as patient's blood pressure is normotensive to low DVT prophylaxis: SCD, early ambulation for possible surgical intervention if SBP does not resolve Given patient's SBP patient requirement on 2 night inpatient hospital stay for further management and evaluation Quality Stroke Does the patient have a stroke diagnosis?: No VTE Prior VTE?: No VTE Risk Level:: Medical - moderate - high VTE Device Contraindication: Treatment Not Indicated VTE Drug Contraindication: N/A - Med Ordered
[2022-09-15 02:56] LABS: Troponin-I High Sensitivity 13.4 ng/L (<3.5-35.0)
--- NOTE | 2022-09-15 03:00 | PC.NURSE ---
Koko Goldsmith MD wanted this RN to ask pt. if he would be willing to attempt NGT again after numbing the nose. Pt. continues to refuse, and aware of pt.'s refusal
[2022-09-15] MEDS: Morphine Sulfate 4 MG/ML CARTRIDGE IVPUSH (03:40)
[2022-09-15 03:47] LABS: Reflex Lactate? Lactic Acid Added
[2022-09-15] MEDS: ondansetron HCL 4 MG/2 ML VIAL IVPUSH (03:57)
[2022-09-15 04:05] LABS: Basophils Absolute Auto 0.1 X10*3/uL (0.0-0.2); Basophils Percent Auto 0.3 % (0-2); Eosinophils Percent Auto 0.1 % (0-4); Hematocrit 48.4 % (42.0-52.0); Hemoglobin 16.4 g/dl (14.0-18.0); Imm Gran Abs Auto 0.12 X10*3/uL (0.00-0.03); Imm Gran Pct Auto 0.6 % (0.0-0.4); Lymphocytes Absolute Auto 1.7 X10*3/uL (1.2-4.9); Lymphocytes Percent Auto 8.4 % (20-40); MANUAL DIFF FLAG NO; Mean Corpuscular HGB Conc 33.9 g/dl (31.0-36.0); Mean Corpuscular Volume 88.5 fL (80.0-98.0); Mean Platelet Volume 9.8 fL (9.4-12.4); Monocytes Absolute Auto 1.1 X10*3/uL (0.1-1.2); Monocytes Percent Auto 5.3 % (2-11); Neutrophils Absolute Auto 17.5 x10*3/uL (2.0-8.3); Neutrophils Percent Auto 85.3 % (45-73); Platelet Count 279 X10*3/uL (160-400); Red Blood Count 5.47 X10*6/uL (4.60-5.80); Red Cell Distribution Width 12.3 % (11.0-16.0); White Blood Count 20.5 X10*3/uL (4.8-10.8)
[2022-09-15 04:22] LABS: Anion Gap 16 (12-20); Blood Urea Nitrogen 25 mg/dL (9-16); Calcium 9.8 mg/dL (8.4-10.2); Carbon Dioxide 23 mmol/L (22-29); Chloride 106 mmol/L (96-108); Creatinine Clr Calc Pharmacy 53.1; Estimated Glomerular Filt Rate 60; Glucose Random 184 mg/dL (60-115); Potassium 4.4 mmol/L (3.3-5.1); Sodium 141 mmol/L (135-145)
[2022-09-15 04:26] LABS: ~Lactic Acid-LAB USE ONLY 3.2 mmol/L (0.5-2.0)
[2022-09-15 05:16] LABS: Appearance Urine Clear; Color Urine Dark Yellow; Glucose Urine UA Negative (Negative); Leukocyte Esterase Urine Negative (Negative); Nitrite Urine Negative (Negative); Specific Gravity - Urine >= 1.030 (1.005-1.025); UMIC TRIGGER UACC YES; Urine Blood Small (1+) (Negative); Urine Ketones 15 mg/dL (Negative); Urine Protein Trace mg/dL (Neg-Trace)
--- NOTE | 2022-09-15 05:24 | PC.NURSE ---
I assisted the patient to the BR , he walks with a cane and he will ring the shin when ready to walk back.. he had a medium BM and was able to void for a urine
[2022-09-15 05:28] LABS: Bacteria Urine None Seen (None Seen); RBC Urine >20 /HPF (0-2); Squamous Epithelial Cell Urine 0-2 /HPF (0-2); WBC Urine 0-5 /HPF (0-5)
[2022-09-15 06:03] LABS: Reflex Lactate? 2 Y
--- NOTE | 2022-09-15 06:36 | PC.NURSE ---
Daughter, Lalitha called and wanted to make sure her number is in pt.'s chart - [phone]
[2022-09-15] MEDS: Lactated Ringers 1,000 ML 100 ML IVCONT ×2 (06:43→16:56)
--- NOTE | 2022-09-15 07:20 | PHA.MEDREC ---
Pharmacy Consult ? Medication Reconciliation Pharmacy has reviewed the medication reconciliation done by dana.
--- NOTE | 2022-09-15 07:51 | PM.CNGS ---
History of Present Illness Consult details Consult date: 09/15/22 Narrative: 87 year old male presenting with complaints of abdominal pain, distension, nausea and vomiting. The pain began after eating pasta which seem to increase his abdominal pain. He has been moving his bowels mainly using prune juice.? He has a prior history of colon cancer and is status post low anterior resection by Dr. Soriano.? He had several prior small-bowel obstructions which have resolved non operatively most recently on 08/16/2022.? The current symptoms appear consistent with the previous episodes.? He he denies fever or chills.? His last bowel movement was yesterday.? He denies any bleeding or discharge.? ? A CT of the abdomen and pelvis revealed distended loops of small bowel with air-fluid level suggestive of a small-bowel obstruction with a transition point in the distal ileum in the pelvis presumably due to adhesions..? Stool was noted in the entire colon and into the rectum.? White count was found to be slightly elevated.? He is admitted to the Hospitalist service for management of this small bowel obstruction. Review of Systems Constitutional: Constitutional: Denies chills, Denies fever(s), Denies headache(s) and Denies poor appetite ENT: Denies dizziness and Denies headache(s) Cardiovascular: Cardiovascular: Denies chest pain, Denies rapid heart rate, Denies palpitations and Denies slow heart rate Respiratory: Respiratory: Denies chest congestion, Denies cough, Denies pain on inspiration and Denies wheezing Gastrointestinal: Gastrointestinal: Reports abdominal pain, Denies bloating, Denies change in stool character, Reports constipation, Denies diarrhea, Reports nausea, Denies vomiting and Denies hematemesis Musculoskeletal: Musculoskeletal: Denies back pain, Denies arthralgias, Denies joint swelling and Denies numbness Integumentary/Breasts: Skin/Breast: Denies change in pigmentation, Denies erythema and Denies rash Neurologic: Denies dizziness, Denies headache(s) and Denies numbness Psychiatric: Psychiatric: Denies anxiety and Denies depression Endocrine: Endocrine: Denies palpitations Hematologic/Lymphatic: Hematologic/Lymphatic: Denies easy bleeding, Denies easy bruising and Denies lymphadenopathy Allergic/Immunologic: Allergic/Immunologic: Denies wheezing PMFSH Past Medical History Medical History Bladder neck contracture BPH (benign prostatic hyperplasia) Colon cancer Constipation Coronary artery disease Dysuria Erectile dysfunction Essential hypertension GERD (gastroesophageal reflux disease) Hematuria Hyperlipidemia, unspecified Obstructive sleep apnea Overweight (BMI 25.0-29.9) Peripheral vascular disease Prostate cancer Rectal cancer SBO (small bowel obstruction) Small bowel obstruction Type 2 diabetes mellitus with hyperglycemia Urinary incontinence Family History Family History Father Pancreatic cancer Mother No problems noted. Brother Liver cancer Surgical History Surgical History History of appendectomy History of bladder surgery (~01/04/18) History of carpal tunnel release History of colectomy History of prostate surgery (~2017) Social History Social History Household Members: Spouse Housing: House Are you a primary critical care clinical nurse specialist to a significant other at home: Yes (critical care clinical nurse specialist for , grand daughter lives with them as well) Do you presently have visiting nurse or other home services: No Alcohol intake: never Patient Tobacco Use Status: Former Tobacco user Quit Date: years ago Tobacco use type: Cigar e-Cigarette/Vaping Use: Never Used Second Hand Smoke Exposure: No Advance Directives: Yes Advance Directives on File: Yes Advance Directives Date on File: 09/29/20 service: Yes ([email or web address]) Current occupational status: retired Cognitive needs: Yes (cane) Hearing needs: Yes Vision needs: Yes Meds Allergies Allergy/AdvReac Type Severity Reaction Status Date / Time diphenhydramine AdvReac Intermediate Hallucinati Verified 08/25/22 14:17 [From Benadryl] ons Active Medications: Current Medications Acetaminophen (Acetaminophen Supp 650 Mg Supp.Rect) 650 mg VT Q6H PRN PRN Reason: Pain, Mild (Pain Scale 1-3) Dextrose (Dextrose 50 % 25 Gm/50 Ml Syringe) 25 gm IVPUSH Q15M PRN; Protocol PRN Reason: per Hypoglycemia Standing Ord. Glucose (Glucose Gel 15 Gm Gel..Gram.) 15 gm PO Q15M PRN; Protocol PRN Reason: per Hypoglycemia Standing Ord. Lactated Ringer's (Lr) 1,000 mls @ 100 mls/hr IVCONT .Q10H [facility] Last Admin: 09/15/22 06:43 Dose: 100 mls/hr Insulin Human Lispro (Insulin Lispro 100 Unit/Ml 3 Ml Vial) 0 unit SUBCUT QIDACHS [facility]; Protocol Metoprolol Tartrate (Metoprolol Tartrate 12.5 Mg Halftab) 12.5 mg PO BID [facility]; Protocol Morphine Sulfate (Morphine Sulfate 4 Mg/Ml Cartridge) 4 mg IVPUSH Q4H PRN; Protocol PRN Reason: Pain, Severe (Pain Scale 7-10) Last Admin: 09/15/22 03:40 Dose: 4 mg Ondansetron HCl (Ondansetron Hcl 4 Mg/2 Ml Vial) 4 mg IVPUSH Q8H PRN PRN Reason: Nausea and Vomiting Last Admin: 09/15/22 03:57 Dose: 4 mg Sodium Chloride (0.9 % Sodium Chloride Flush 3 Ml Syringe) 3 ml IVFLUSH QSHIFT [facility] Physical Exam Vital Signs: Vital Signs: Last Vital Signs Temp 97.9 F 09/15/22 04:40 Pulse 88 09/15/22 04:40 Resp 25 H 09/15/22 04:40 BP 101/53 L 09/15/22 04:40 Pulse Ox 96 09/15/22 04:40 O2 Del Method 09/15/22 04:40 BMI result Body Mass Index 23.7 Const: General: no acute distress and well developed Nutritional Appearance: well nourished Orientation/consciousness: patient oriented x3 Limitations: no limitations HEENT: Head: Yes normocephalic and Yes atraumatic Ears: hearing grossly normal bilaterally Resp: Effort & Inspection: normal respiratory effort, no audible wheezes, no cough and no respiratory distress Auscultation: clear to auscultation bilaterally, no crackles, no rales, rhonchi and no wheezes Percussion: percussion normal Cardio: Rate: regular rate Rhythm: regular rhythm Heart sounds: S1 normal heart sound present and S2 normal heart sound present GI: Inspection: Yes distended and Yes incision Palpation (GI): Firmness to palpation present (GI), Tenderness to palpation present (GI) (Mild tenderness to deep palpation) with no rebound tenderness, no guarding, not rigid and no hernias Percussion: Yes tympanic to percussion Auscultation: normal bowel sounds Rectal Exam - Male: Yes deferred Skin: Other: Warm, dry, no rash Neuro: General: patient oriented x3 Extrem: General: Yes no clubbing, cyanosis or edema Results Labs Result diagrams: 09/15/22 03:59 09/15/22 04:00 Labs: Abnormal lab results 09/15/22 09/15/22 09/15/22 Range/Units 01:38 01:38 01:38 WBC 15.4 H (4.8-10.8) X10*3/uL Immature Gran % (Auto) (0.0-0.4) % Neut % (Auto) 78.8 H (45-73) % Lymph % (Auto) 15.8 L (20-40) % Abs Immat Gran (auto) 0.05 H (0.00-0.03) X10*3/uL Absolute Neuts (auto) 12.1 H (2.0-8.3) x10*3/uL Carbon Dioxide 20 L (22-29) mmol/L BUN 22 H (9-16) mg/dL Random Glucose 155 H (60-115) mg/dL Lactic Acid 2.5 H* (0.5-2.0) mmol/L Lactic Acid F/U @ 2Hr (0.5-2.0) mmol/L Calcium 10.4 H D (8.4-10.2) mg/dL Ur Specific [place] (1.005-1.025) Urine Blood (Negative) Urine RBC (0-2) /HPF 09/15/22 09/15/22 09/15/22 Range/Units 03:59 03:59 04:00 WBC 20.5 H (4.8-10.8) X10*3/uL Immature Gran % (Auto) 0.6 H (0.0-0.4) % Neut % (Auto) 85.3 H (45-73) % Lymph % (Auto) 8.4 L (20-40) % Abs Immat Gran (auto) 0.12 H (0.00-0.03) X10*3/uL Absolute Neuts (auto) 17.5 H (2.0-8.3) x10*3/uL Carbon Dioxide (22-29) mmol/L BUN 25 H (9-16) mg/dL Random Glucose 184 H (60-115) mg/dL Lactic Acid (0.5-2.0) mmol/L Lactic Acid F/U @ 2Hr 3.2 H* (0.5-2.0) mmol/L Calcium (8.4-10.2) mg/dL Ur Specific [place] (1.005-1.025) Urine Blood (Negative) Urine RBC (0-2) /HPF 09/15/22 Range/Units 05:08 WBC (4.8-10.8) X10*3/uL Immature Gran % (Auto) (0.0-0.4) % Neut % (Auto) (45-73) % Lymph % (Auto) (20-40) % Abs Immat Gran (auto) (0.00-0.03) X10*3/uL Absolute Neuts (auto) (2.0-8.3) x10*3/uL Carbon Dioxide (22-29) mmol/L BUN (9-16) mg/dL Random Glucose (60-115) mg/dL Lactic Acid (0.5-2.0) mmol/L Lactic Acid F/U @ 2Hr (0.5-2.0) mmol/L Calcium (8.4-10.2) mg/dL Ur Specific [place] >= 1.030 H (1.005-1.025) Urine Blood Small (1+) H (Negative) Urine RBC >20 H (0-2) /HPF Short CBC 09/15/22 09/15/22 Range/Units 01:38 03:59 WBC 15.4 H 20.5 H (4.8-10.8) X10*3/uL Hgb 16.6 D 16.4 (14.0-18.0) g/dl Hct 49.6 D 48.4 (42.0-52.0) % Plt Count 284 279 (160-400) X10*3/uL BMP 09/15/22 09/15/22 01:38 04:00 Sodium 141 141 Potassium 4.4 4.4 Chloride 106 106 Carbon Dioxide 20 L 23 BUN 22 H 25 H Creatinine 1.11 1.16 Calcium 10.4 H D 9.8 Liver Function 09/15/22 Range/Units 01:38 Total Bilirubin 0.9 (0.0-1.0) mg/dL AST 19 (5-37) U/L ALT 26 (0-40) U/L Alkaline Phosphatase 92 (39-117) U/L Albumin 4.6 (3.5-5.0) g/dL Urine 09/15/22 Range/Units 05:08 Urine Color Dark Yellow Urine Appearance Clear Urine pH 5.0 (5.0-9.0) Ur Specific [place] >= 1.030 H (1.005-1.025) Urine Protein Trace (Neg-Trace) mg/dL Urine Glucose (UA) Negative (Negative) mg/dL All other labs normal. Assessment and Plan (1) SBO (small bowel obstruction): Status: Acute Plan 87-year-old male patient presenting with complaints of abdominal pain, distension, nausea and vomiting which started yesterday and was felt to be similar to his previous episodes of small-bowel obstruction. On examination he does have some abdominal distention and tenderness in the lower abdomen. Tympany to percussion. Findings are suggestive of a partial small-bowel obstruction. CT abdomen and pelvis confirmed distended loops of small bowel with air-fluid levels as well as an apparent area of narrowing in the distal ileum. Findings are suggestive of adhesions due to his previous colon surgery. He has had multiple recurrent episodes of small-bowel obstruction which have resolved non operatively. We discussed the option of exploratory laparotomy with lysis of adhesions versus continued observation. He is comfortable with non operative management at this time however if the symptoms do not improve he understands that surgery may be necessary. Procedures Date of Service Date of Service: 09/15/22
[2022-09-15 10:01] LABS: Glucose, Whole Blood 113 mg/dL (60-115)
[2022-09-15 14:06] LABS: Glucose, Whole Blood 77 mg/dL (60-115)
--- NOTE | 2022-09-15 15:14 | PC.NURSE ---
report given to vitaly bedoya
--- NOTE | 2022-09-15 15:17 | PC.NURSE ---
transport confirmed they will take pt to [facility]
[2022-09-15] MEDS: Dextrose 50 % 25 GM/50 ML SYRINGE IVPUSH ×2 (16:29→19:48)
[2022-09-15 16:30] LABS: Glucose, Whole Blood 54 mg/dL (60-115)
[2022-09-15] MEDS: bisacodyL 10 MG SUPP.RECT PR (16:32)
[2022-09-15 16:53] LABS: Glucose, Whole Blood 181 mg/dL (60-115)
[2022-09-15 19:49] LABS: Glucose, Whole Blood 52 mg/dL (60-115)
[2022-09-15 20:25] LABS: Glucose, Whole Blood 147 mg/dL (60-115)
[2022-09-15 20:31] LABS: CDiff Gene PCR NEGATIVE (Negative)
[2022-09-16] MEDS: Lactated Ringers 1,000 ML 100 ML IVCONT (03:02)
[2022-09-16 03:33] VITALS: BP 126/61; PULSE 86; RESP 18; TEMP 36.4; O2SAT 95
[2022-09-16 06:50] LABS: Hemoglobin 12.4 g/dl (14.0-18.0); Mean Corpuscular HGB Conc 32.6 g/dl (31.0-36.0); Mean Corpuscular Hemoglobin 29.5 pg (27.0-33.0); Mean Corpuscular Volume 90.5 fL (80.0-98.0); Mean Platelet Volume 10.7 fL (9.4-12.4); Platelet Count 219 X10*3/uL (160-400); Red Cell Distribution Width 12.6 % (11.0-16.0); White Blood Count 6.7 X10*3/uL (4.8-10.8)
[2022-09-16 07:12] LABS: Blood Urea Nitrogen 20 mg/dL (9-16); Creatinine Clr Calc Pharmacy 82.2; Estimated Glomerular Filt Rate > 60; Glucose Random 81 mg/dL (60-115)
--- NOTE | 2022-09-16 07:15 | MHC.CM.PN ---
Addendum entered by Chanel Lee RN 09/16/22 10:08: PATIENT AWAKE HE HAS BEEN COVID VAX X 3 (PFIZER) NO SERVICES IN THE HOME. DAUGHTER IS A NURSE AND HE FEELS HE WILL NOT NEED ANY SERVICES AT AL. IMM 09/16 SIGNED AND COPY IN CHART Original Note: PATIENT ASLEEP AT FIRST ATTEMPT TO MEET FOR CASE MANAGEMENT ASSESSMENT. PER REVIEW OF RECENT VISIT, PATIENT LIVES WITH SPOUSE AND FAMILY. CANE FOR AMBULATION ASSIST, AND COVID VAX X 2 (PFIZER SERIES) CASE MANAGEMENT TO RETURN AT A LATER TIME TO DAY TO DISCUSS IMM DELIVERY.
--- NOTE | 2022-09-16 07:17 | PC.NURSE ---
On the operations supervisor 2nd shift at 19:15, pt had a cricitcal POC of 52, asymptomatic . The pt received 25gm of IV Dextrose due to NPO status. After 15 minutes, this nurse reassessed the pt's POC and was 147. The 25gm of IV Dextrose was effective. MD Betancourt was notified of the situation, no new orders were given. Will continue to monitor pt's POC.
[2022-09-16 07:28] VITALS: BP 140/65; PULSE 70; RESP 18; TEMP 36.1; O2SAT 96
[2022-09-16 08:05] LABS: Glucose, Whole Blood 68 mg/dL (60-115)
[2022-09-16] MEDS: Metoprolol Tartrate 12.5 MG HALFTAB PO ×2 (08:22→20:05)
[2022-09-16] MEDS: Dextrose 50 % 25 GM/50 ML SYRINGE IVPUSH (08:23)
--- NOTE | 2022-09-16 08:25 | PM.PNGS ---
Subjective Subjective Date of Service: 09/16/22 Interval history: Reports 2 large bowel movements yesterday feels much improved morning with no abdominal pain, nausea or vomiting. Physical Exam Vital Signs: Vital Signs: Last Vital Signs Temp 96.9 F 09/16/22 07:28 Pulse 70 09/16/22 07:28 Resp 18 09/16/22 07:28 BP 140/65 H 09/16/22 07:28 Pulse Ox 96 09/16/22 07:28 O2 Del Method 09/16/22 07:28 BMI result Body Mass Index 23.7 Const: General: no acute distress Nutritional Appearance: well nourished Orientation/consciousness: patient oriented x3 Limitations: no limitations Resp: Effort & Inspection: normal respiratory effort GI: Other: Soft, nondistended, nontender, non tympanitic to percussion. Neuro: General: patient oriented x3 Objective Data Active Medications Acetaminophen (Acetaminophen Supp 650 Mg Supp.Rect) 650 mg SD Q6H PRN PRN Reason: Pain, Mild (Pain Scale 1-3) Dextrose (Dextrose 50 % 25 Gm/50 Ml Syringe) 25 gm IVPUSH Q15M PRN; Protocol PRN Reason: per Hypoglycemia Standing Ord. Last Admin: 09/16/22 08:23 Dose: 25 gm Documented By: TRINIDAD Glucose (Glucose Gel 15 Gm Gel..Gram.) 15 gm PO Q15M PRN; Protocol PRN Reason: per Hypoglycemia Standing Ord. Lactated Ringer's (Lr) 1,000 mls @ 100 mls/hr IVCONT .Q10H [facility] Last Admin: 09/16/22 03:02 Dose: 100 mls/hr Documented By: MARCIA Insulin Human Lispro (Insulin Lispro 100 Unit/Ml 3 Ml Vial) 0 unit SUBCUT QIDACHS [facility]; Protocol Last Admin: 09/15/22 21:47 Dose: Not Given Documented By: MARCIA Non-Admin Reason: No Insulin Coverage Metoprolol Tartrate (Metoprolol Tartrate 12.5 Mg Halftab) 12.5 mg PO BID [facility]; Protocol Last Admin: 09/16/22 08:22 Dose: 12.5 mg Documented By: TRINIDAD Morphine Sulfate (Morphine Sulfate 4 Mg/Ml Cartridge) 4 mg IVPUSH Q4H PRN; Protocol PRN Reason: Pain, Severe (Pain Scale 7-10) Last Admin: 09/15/22 03:40 Dose: 4 mg Documented By: NICHOLAS Ondansetron HCl (Ondansetron Hcl 4 Mg/2 Ml Vial) 4 mg IVPUSH Q8H PRN PRN Reason: Nausea and Vomiting Last Admin: 09/15/22 03:57 Dose: 4 mg Documented By: NICHOLAS Sodium Chloride (0.9 % Sodium Chloride Flush 3 Ml Syringe) 3 ml IVFLUSH QSHIFT [facility] Last Admin: 09/16/22 00:26 Dose: Not Given Documented By: MARCIA Non-Admin Reason: IV Running Labs CBC & Chem 7: 09/16/22 05:13 09/16/22 05:13 Labs: Laboratory Results - last 24 hr 09/15/22 09/15/22 09/15/22 09:55 14:01 16:26 MCV MCH MCHC RDW Plt Count MPV Absolute Nucleated RBC Nucleated RBC % (auto) Estim Creat Clear Calc Estimated GFR POC Glucose 113 77 54 L* Random Glucose C. difficile Tox B Gene 09/15/22 09/15/22 09/15/22 16:49 18:00 19:19 MCV MCH MCHC RDW Plt Count MPV Absolute Nucleated RBC Nucleated RBC % (auto) Estim Creat Clear Calc Estimated GFR POC Glucose 181 H 52 L* Random Glucose C. difficile Tox B Gene NEGATIVE 09/15/22 09/16/22 09/16/22 20:22 05:13 05:13 MCV 90.5 MCH 29.5 MCHC 32.6 RDW 12.6 Plt Count 219 MPV 10.7 Absolute Nucleated RBC 0.000 Nucleated RBC % (auto) 0.0 Estim Creat Clear Calc 82.2 Estimated GFR > 60 POC Glucose 147 H Random Glucose 81 C. difficile Tox B Gene 09/16/22 08:00 MCV MCH MCHC RDW Plt Count MPV Absolute Nucleated RBC Nucleated RBC % (auto) Estim Creat Clear Calc Estimated GFR POC Glucose 68 Random Glucose C. difficile Tox B Gene Microbiology Microbiology Results: Microbiology 09/15/22 01:38 Blood Culture - Preliminary Blood - Venous No growth after 24 hours. 09/15/22 01:38 Blood Culture - Preliminary Blood - Venous No growth after 24 hours. Procedures Date of Service Date of Service: 09/16/22 Progress Note: A&P Assessment and plan (1) SBO (small bowel obstruction): Status: Acute Plan 87-year-old male patient with a known history of recurrent small-bowel obstructions returning with similar symptoms of abdominal pain nausea and vomiting. This morning he feels much improved after having 2 bowel movements. His abdomen is soft and nondistended with no tympany to percussion. I recommended starting clear liquids today and advancing to low residue diet in the a.m. if tolerated. He has requested as a dietary consult for help on food choices while at home. Findings were discussed with his daughter as well. They expressed understanding and agree with the plan. Time Spent With Patient Time: Total time spent is greater than 50% in coordination of care (as documented) at patient's floor/unit and/or counseling patient: Quality Stroke Does the patient have a stroke diagnosis?: No VTE Prior VTE?: No VTE Risk Level:: Medical - moderate - high VTE Device Contraindication: Treatment Not Indicated VTE Drug Contraindication: N/A - Med Ordered
[2022-09-16 08:53] LABS: Glucose, Whole Blood 159 mg/dL (60-115)
[2022-09-16 09:07] LABS: Anion Gap 13 (12-20); Calcium 8.2 mg/dL (8.4-10.2); Carbon Dioxide 23 mmol/L (22-29); Chloride 110 mmol/L (96-108); Potassium 4.1 mmol/L (3.3-5.1); Sodium 142 mmol/L (135-145)
[2022-09-16 11:17] VITALS: BP 134/63; PULSE 58; RESP 16; TEMP 36.6; O2SAT 98
[2022-09-16 11:25] LABS: Glucose, Whole Blood 86 mg/dL (60-115)
--- NOTE | 2022-09-16 14:20 | MHC.CM.PN ---
PER PHYSICIAN ROUNDS, PLAN IS ADVANCE DIET AND DC HOME TOMORROW (09/17/22)
--- NOTE | 2022-09-16 14:59 | MHC.CLN ---
NUTRITION CONSULT FROM MD TO SPEAK WITH PATIENT ABOUT LOW RESIDUE DIET. PATIENT AND DAUGHTER PRESENT AT VISIT. PROVIDED HANDOUTS ON FIBER RESTRICTED (13 G) AND LOW FIBER (8 G) DIETS. REVIEWED BOTH HANDOUTS WITH PATIENT AND DAUGHTER, ANSWERED QUESTIONS FROM BOTH. PATIENT LIVES WITH GRANDDAUGHTER WHO SHOPS AND COOKS. ADVISED TO SHARE EDUCATIONAL MATERIALS WITH HER. CURRENT DIET IS CLEAR LIQUIDS. RD AVAILABLE NEEDED FOR FURTHER EDUCATION.
[2022-09-16 15:20] VITALS: BP 146/66; PULSE 66; RESP 18; TEMP 36.5; O2SAT 93
--- NOTE | 2022-09-16 15:30 | P.PNIM_ITS ---
Subjective Subjective Date of Service: 09/16/22 Interval History: feeling better this morning no abdominal pain had 2 bowel movement last night denies nausea vomiting no other acute issues overnight, denies lightheadedness dizziness, no chest pain no palpitation, no shortness of breath. Review of Systems Review of Systems: Yes all other systems are reviewed and are negative Physical Exam Vital Signs: Vital Signs: Last Vital Signs Temp 97.7 F 09/16/22 15:20 Pulse 66 09/16/22 15:20 Resp 18 09/16/22 15:20 BP 146/66 H 09/16/22 15:20 Pulse Ox 93 09/16/22 15:20 O2 Del Method 09/16/22 15:20 BMI result Body Mass Index 23.7 Const: Other: General patient resting comfortably in no acute distress. Neck is supple no JVD. CVS regular rate rhythm, Respiratory lungs clear to auscultation, no respiratory distress, no wheeze, no rhonchi. Gastrointestinal abdomen soft, nontender, bowel sounds audible, no guarding , no rigidity. Extremities no edema. Neuro nonfocal patient moving all 4 extremity speech clear. Skin no rash Psych appropriate affect Objective Data Active Medications Acetaminophen (Acetaminophen Supp 650 Mg Supp.Rect) 650 mg [place] Q6H PRN PRN Reason: Pain, Mild (Pain Scale 1-3) Dextrose (Dextrose 50 % 25 Gm/50 Ml Syringe) 25 gm IVPUSH Q15M PRN; Protocol PRN Reason: per Hypoglycemia Standing Ord. Last Admin: 09/16/22 08:23 Dose: 25 gm Documented By: TRINIDAD Glucose (Glucose Gel 15 Gm Gel..Gram.) 15 gm PO Q15M PRN; Protocol PRN Reason: per Hypoglycemia Standing Ord. Insulin Human Lispro (Insulin Lispro 100 Unit/Ml 3 Ml Vial) 0 unit SUBCUT QIDACHS [facility]; Protocol Last Admin: 09/16/22 11:32 Dose: Not Given Documented By: KRISTINA Non-Admin Reason: No Insulin Coverage Metoprolol Tartrate (Metoprolol Tartrate 12.5 Mg Halftab) 12.5 mg PO BID [facility]; Protocol Last Admin: 09/16/22 08:22 Dose: 12.5 mg Documented By: TRINIDAD Morphine Sulfate (Morphine Sulfate 4 Mg/Ml Cartridge) 4 mg IVPUSH Q4H PRN; Protocol PRN Reason: Pain, Severe (Pain Scale 7-10) Last Admin: 09/15/22 03:40 Dose: 4 mg Documented By: NICHOLAS Ondansetron HCl (Ondansetron Hcl 4 Mg/2 Ml Vial) 4 mg IVPUSH Q8H PRN PRN Reason: Nausea and Vomiting Last Admin: 09/15/22 03:57 Dose: 4 mg Documented By: NICHOLAS Sodium Chloride (0.9 % Sodium Chloride Flush 3 Ml Syringe) [facility] [place] Last Admin: 09/16/22 08:59 Dose: Not Given Documented By: KRISTINA Non-Admin Reason: IV Running Labs CBC & Chem 7: 09/16/22 05:13 09/16/22 05:13 Labs: Laboratory Results - last 24 hr 09/15/22 09/15/22 09/15/22 16:26 16:49 18:00 MCV MCH MCHC RDW Plt Count MPV Absolute Nucleated RBC Nucleated RBC % (auto) Anion Gap Estim Creat Clear Calc Estimated GFR POC Glucose 54 L* 181 H Random Glucose Calcium C. difficile Tox B Gene NEGATIVE 09/15/22 09/15/22 09/16/22 19:19 20:22 05:13 MCV 90.5 MCH 29.5 MCHC 32.6 RDW 12.6 Plt Count 219 MPV 10.7 Absolute Nucleated RBC 0.000 Nucleated RBC % (auto) 0.0 Anion Gap Estim Creat Clear Calc Estimated GFR POC Glucose 52 L* 147 H Random Glucose Calcium C. difficile Tox B Gene 09/16/22 09/16/22 09/16/22 05:13 08:00 08:50 MCV MCH MCHC RDW Plt Count MPV Absolute Nucleated RBC Nucleated RBC % (auto) Anion Gap 13 Estim Creat Clear Calc 82.2 Estimated GFR > 60 POC Glucose 68 159 H Random Glucose 81 Calcium 8.2 L D C. difficile Tox B Gene 09/16/22 11:20 MCV MCH MCHC RDW Plt Count MPV Absolute Nucleated RBC Nucleated RBC % (auto) Anion Gap Estim Creat Clear Calc Estimated GFR POC Glucose 86 Random Glucose Calcium C. difficile Tox B Gene Microbiology Microbiology Results: Microbiology 09/15/22 01:38 Blood Culture - Preliminary Blood - Venous No growth after 24 hours. 09/15/22 01:38 Blood Culture - Preliminary Blood - Venous No growth after 24 hours. Assessment and Plan (1) Leukocytosis: Status: Acute (2) Lactic acidosis: Status: Acute (3) SBO (small bowel obstruction): Status: Acute Plan 87-year-old male with past medical history of recurrent small-bowel obstruction requiring hospitalization and non operative decompression presents to the hospital with complaints of abdominal pain found to have small-bowel obstruction # small-bowel obstruction - abdominal pain resolved had 2 bowel movements, will place on clear liquid diet and gradually advance being followed by General surgery will DC IV fluids, consult salvager since patient requesting recommendation to prevent recurrent small-bowel obstruction # lactic acidosis - likely secondary to dehydration improved with IV fluids no evidence of sepsis # leukocytosis - likely reactive, repeat WBC normalized - UA negative, chest x-ray negative, abdominal CT with no diverticulitis, or colitis # diabetes - bs 68 will advance diet, continue low-dose sliding scale insulin # hypertension - stable continue metoprolol DVT prophylaxis:? SCD, early ambulation patient require continued inpatient hospitalization for partial small-bowel obstruction currently on clear liquid diet Quality Stroke Does the patient have a stroke diagnosis?: No VTE Prior VTE?: No VTE Risk Level:: Medical - moderate - high VTE Device Contraindication: Treatment Not Indicated VTE Drug Contraindication: N/A - Med Ordered
[2022-09-16 16:05] LABS: Glucose, Whole Blood 60 mg/dL (60-115)
[2022-09-16 19:14] VITALS: BP 132/63; PULSE 61; RESP 18; TEMP 36.4; O2SAT 98
[2022-09-16 19:24] LABS: Glucose, Whole Blood 96 mg/dL (60-115)
[2022-09-16] MEDS: 0.9 % Sodium Chloride Flush 3 ML SYRINGE IVFLUSH (19:59)
[2022-09-16 23:45] VITALS: BP 148/69; PULSE 79; RESP 17; TEMP 37.1; O2SAT 96
[2022-09-17 03:14] VITALS: BP 140/67; PULSE 68; RESP 17; TEMP 36.6; O2SAT 97
[2022-09-17 07:43] VITALS: BP 142/65; PULSE 56; RESP 18; TEMP 35.8; O2SAT 95
[2022-09-17 08:30] LABS: Glucose, Whole Blood 82 mg/dL (60-115)
[2022-09-17] MEDS: Metoprolol Tartrate 12.5 MG HALFTAB PO ×2 (08:34→19:41)
[2022-09-17] MEDS: 0.9 % Sodium Chloride Flush 3 ML SYRINGE IVFLUSH (08:37)
--- NOTE | 2022-09-17 11:08 | PM.PNGS ---
Subjective Subjective Date of Service: 09/17/22 Patient reports: still having pain and flatus Interval history: The patient is seen in coverage for Dr. Randle Chart reviewed and signed out reviewed. The patient reports that he is feeling more crampy but denies any bloating, nausea or vomiting. He is passing gas and reports a small bowel movement yesterday but expected that he would feel better. He is tolerating his diet and otherwise denies new complaints such as headache, visual changes, chest pain, difficulty breathing, shortness of breath abdominal bloating. Physical Exam Vital Signs: Vital Signs: Last Vital Signs Temp 96.5 F L 09/17/22 07:43 Pulse 56 09/17/22 07:43 Resp 18 09/17/22 07:43 BP 142/65 H 09/17/22 07:43 Pulse Ox 95 09/17/22 07:43 O2 Del Method 09/17/22 07:43 BMI result Body Mass Index 23.7 On exam he is nontoxic Sclera are anicteric, EOMI, PERRLA, Per patient, his abdomen is not distended. It is overweight and soft with no tenderness. No significant tympany is appreciated on exam but the patient does report vague crampiness & discomfort Objective Data Active Medications Acetaminophen (Acetaminophen Supp 650 Mg Supp.Rect) 650 mg [place] Q6H PRN PRN Reason: Pain, Mild (Pain Scale 1-3) Dextrose (Dextrose 50 % 25 Gm/50 Ml Syringe) 25 gm IVPUSH Q15M PRN; Protocol PRN Reason: per Hypoglycemia Standing Ord. Last Admin: 09/16/22 08:23 Dose: 25 gm Documented By: TRINIDAD Glucose (Glucose Gel 15 Gm Gel..Gram.) 15 gm PO Q15M PRN; Protocol PRN Reason: per Hypoglycemia Standing Ord. Insulin Human Lispro (Insulin Lispro 100 Unit/Ml 3 Ml Vial) 0 unit SUBCUT QIDACHS [facility]; Protocol Last Admin: 09/17/22 08:28 Dose: Not Given Documented By: ALEC Non-Admin Reason: No Insulin Coverage Metoprolol Tartrate (Metoprolol Tartrate 12.5 Mg Halftab) 12.5 mg PO BID [facility]; Protocol Last Admin: 09/17/22 08:34 Dose: 12.5 mg Documented By: ALEC Morphine Sulfate (Morphine Sulfate 4 Mg/Ml Cartridge) 4 mg IVPUSH Q4H PRN; Protocol PRN Reason: Pain, Severe (Pain Scale 7-10) Last Admin: 09/15/22 03:40 Dose: 4 mg Documented By: NICHOLAS Ondansetron HCl (Ondansetron Hcl 4 Mg/2 Ml Vial) 4 mg IVPUSH Q8H PRN PRN Reason: Nausea and Vomiting Last Admin: 09/15/22 03:57 Dose: 4 mg Documented By: NICHOLAS Sodium Chloride (0.9 % Sodium Chloride Flush 3 Ml Syringe) 3 ml IVFLUSH QSHIFT KRISTINE Last Admin: 09/17/22 08:37 Dose: 3 ml Documented By: ALEC Labs CBC & Chem 7: 09/16/22 05:13 09/16/22 05:13 Labs: Laboratory Results - last 24 hr 09/16/22 09/16/22 09/16/22 11:20 15:29 19:17 POC Glucose 86 60 96 09/17/22 08:25 POC Glucose 82 Microbiology Microbiology Results: Microbiology 09/15/22 01:38 Blood Culture - Preliminary Blood - Venous No growth after 48 hours. 09/15/22 01:38 Blood Culture - Preliminary Blood - Venous No growth after 48 hours. Procedures Date of Service Date of Service: 09/17/22 Progress Note: A&P Assessment and plan (1) Small bowel obstruction: Status: Acute (2) SBO (small bowel obstruction): Status: Acute Plan The patient is made some clinical progress and the crampy complaints are possibly due to his obstruction resolving. He certainly is not feeling worse and is passing gas, consequently, I would recommend keeping his diet wary is at this time. The patient had some questions about ordering abdominal x-rays which we discussed and I would hold off on any diagnostic imaging at this time unless he clinically changes. Will reassess on Monday, 09/18. If the patient reports clinical improvement later today, I would recommend advancing his diet as tolerated. Time Spent With Patient Time: Total time spent is greater than 50% in coordination of care (as documented) at patient's floor/unit and/or counseling patient: Quality Stroke Does the patient have a stroke diagnosis?: No VTE Prior VTE?: No VTE Risk Level:: Medical - moderate - high VTE Device Contraindication: Treatment Not Indicated VTE Drug Contraindication: N/A - Med Ordered
[2022-09-17 11:14] LABS: Glucose, Whole Blood 88 mg/dL (60-115)
[2022-09-17 12:00] VITALS: BP 149/66; PULSE 50; RESP 17; TEMP 35.9; O2SAT 98
--- NOTE | 2022-09-17 12:20 | HO.PM.IMPN ---
Subjective Subjective Date of Service: 09/17/22 Interval History: complaining of abdominal tightness no nausea no vomiting, passing flatus had a small bowel movement, took full liquid diet this morning, denies chest pain, no palpitations, no headache, no dizziness, no fevers, no chills no other acute issues overnight. Review of Systems Review of Systems: Yes all other systems are reviewed and are negative Physical Exam Vital Signs: Vital Signs: Last Vital Signs Temp 96.5 F L 09/17/22 07:43 Pulse 56 09/17/22 07:43 Resp 18 09/17/22 07:43 BP 142/65 H 09/17/22 07:43 Pulse Ox 95 09/17/22 07:43 O2 Del Method 09/17/22 07:43 BMI result Body Mass Index 23.7 Const: Other: General Awake al ert, resting comfo rtably in no acute distress.? Neck i s supple no JVD. C VS? regular rate r hythm, Respiratory lungs clear to au scultation, no res piratory distress, no wheeze, no rho nchi. Gastrointest inal abdomen obese soft, nontender, bowel sounds audib le, no guarding , no rigidity. Extre mities no edema. N euro nonfocal carla ent moving all 4 e xtremity speech cl ear. Skin no rash Psych appropriate affect Objective Data Active Medications Acetaminophen (Acetaminophen Supp 650 Mg Supp.Rect) 650 mg [place] Q6H PRN PRN Reason: Pain, Mild (Pain Scale 1-3) Dextrose (Dextrose 50 % 25 Gm/50 Ml Syringe) 25 gm IVPUSH Q15M PRN; Protocol PRN Reason: per Hypoglycemia Standing Ord. Last Admin: 09/16/22 08:23 Dose: 25 gm Documented By: TRINIDAD Glucose (Glucose Gel 15 Gm Gel..Gram.) 15 gm PO Q15M PRN; Protocol PRN Reason: per Hypoglycemia Standing Ord. Insulin Human Lispro (Insulin Lispro 100 Unit/Ml 3 Ml Vial) 0 unit SUBCUT QIDACHS [facility]; Protocol Last Admin: 09/17/22 11:25 Dose: Not Given Documented By: ALEC Non-Admin Reason: No Insulin Coverage Metoprolol Tartrate (Metoprolol Tartrate 12.5 Mg Halftab) 12.5 mg PO BID [facility]; Protocol Last Admin: 09/17/22 08:34 Dose: 12.5 mg Documented By: ALEC Morphine Sulfate (Morphine Sulfate 4 Mg/Ml Cartridge) 4 mg IVPUSH Q4H PRN; Protocol PRN Reason: Pain, Severe (Pain Scale 7-10) Last Admin: 09/15/22 03:40 Dose: 4 mg Documented By: NICHOLAS Ondansetron HCl (Ondansetron Hcl 4 Mg/2 Ml Vial) 4 mg IVPUSH Q8H PRN PRN Reason: Nausea and Vomiting Last Admin: 09/15/22 03:57 Dose: 4 mg Documented By: NICHOLAS Sodium Chloride (0.9 % Sodium Chloride Flush 3 Ml Syringe) [facility] Last Admin: 09/17/22 08:37 Dose: 3 ml Documented By: ALEC Labs CBC & Chem 7: 09/16/22 05:13 09/16/22 05:13 Labs: Laboratory Results - last 24 hr 09/16/22 09/16/22 09/17/22 15:29 19:17 08:25 POC Glucose 60 96 82 09/17/22 11:09 POC Glucose 88 Microbiology Microbiology Results: Microbiology 09/15/22 01:38 Blood Culture - Preliminary Blood - Venous No growth after 48 hours. 09/15/22 01:38 Blood Culture - Preliminary Blood - Venous No growth after 48 hours. Assessment and Plan (1) Leukocytosis: Status: Acute (2) Lactic acidosis: Status: Acute (3) SBO (small bowel obstruction): Status: Acute Plan 87-year-old male with past medical history of recurrent small-bowel obstruction requiring hospitalization and non operative decompression presents to the hospital with complaints of abdominal pain found to have small-bowel obstruction # small-bowel obstruction - abdominal pain resolved but patient feels tightness in abdomen, had 2 bowel movements yesterday and 1 small bowel movement today, passing flatus case discussed with GI will continue full liquid diet encourage ambulation, follow electrolytes and renal function continue close clinical follow-up if no improvement in clinical condition will obtain abdominal films, case discussed with general surgery # lactic acidosis - likely secondary to dehydration improved with IV fluids no evidence of sepsis # leukocytosis - likely reactive, repeat WBC normalized - UA negative, chest x-ray negative, abdominal CT with no diverticulitis, or colitis # diabetes - bs is stable continue full liquid diet and low-dose sliding scale insulin # hypertension - stable continue metoprolol DVT prophylaxis:? SCD, early ambulation patient require continued inpatient hospitalization for partial small-bowel obstruction with persistent abdominal discomfort Quality Stroke Does the patient have a stroke diagnosis?: No VTE Prior VTE?: No VTE Risk Level:: Medical - moderate - high VTE Device Contraindication: Treatment Not Indicated VTE Drug Contraindication: N/A - Med Ordered
[2022-09-17 15:28] VITALS: BP 140/65; PULSE 56; RESP 17; TEMP 36.1; O2SAT 98
[2022-09-17 15:56] LABS: Glucose, Whole Blood 86 mg/dL (60-115)
[2022-09-17 19:40] LABS: Glucose, Whole Blood 96 mg/dL (60-115)
[2022-09-17 19:58] VITALS: BP 163/72; PULSE 70; RESP 18; TEMP 36.1; O2SAT 98
[2022-09-17 23:51] VITALS: BP 150/67; PULSE 52; RESP 16; TEMP 36.6; O2SAT 96
[2022-09-18 03:27] VITALS: BP 165/69; PULSE 51; RESP 18; TEMP 36.5; O2SAT 96
[2022-09-18 06:49] LABS: Anion Gap 10 (12-20); Blood Urea Nitrogen 9 mg/dL (9-16); Calcium 8.5 mg/dL (8.4-10.2); Carbon Dioxide 23 mmol/L (22-29); Chloride 110 mmol/L (96-108); Creatinine Clr Calc Pharmacy 86.8; Estimated Glomerular Filt Rate > 60; Glucose Random 88 mg/dL (60-115); Potassium 3.7 mmol/L (3.3-5.1); Sodium 139 mmol/L (135-145)
[2022-09-18 07:43] VITALS: BP 135/63; PULSE 60; RESP 16; TEMP 36.1; O2SAT 96
[2022-09-18 07:49] LABS: Glucose, Whole Blood 82 mg/dL (60-115)
[2022-09-18] MEDS: lisinopriL 2.5 MG TABLET PO (08:01)
[2022-09-18] MEDS: Metoprolol Tartrate 12.5 MG HALFTAB PO (08:03)
--- NOTE | 2022-09-18 10:17 | P.DS_ITS ---
DS: Providers Provider Date of Service: 09/18/22 Date of admission: 09/15/22 02:43 Primary care physician: Pro Nunn MD Consults: 09/15/22 02:43 Consult to General Surgery Routine Consulting Provider: Simon Randle Reason for consultation: SBO Has provider been notified: Yes DS: Diagnosis Discharge Diagnosis (1) Leukocytosis: Status: Acute (2) Lactic acidosis: Status: Acute (3) SBO (small bowel obstruction): Status: Acute DS: Summary Hospital Course Hospital Course: Date of Service: 09/15/22 Chief Complaint: Abdominal pain This is an 87-year-old male with past medical history of colon cancer status post low anterior resection, and recurrent small-bowel obstruction that have resolved non operatively, type 2 diabetes, history of prostate cancer, hypertension presents to the hospital with complaints of abdominal pain.? Patient reports that pain started in the lower abdomen the day prior to pre sentation, he has had nausea with no vomiting, he continues to have small-bowel movements and passing gas but the pain was so intolerable he decided to come to the hospital.? Patient denies any chest pain, no shortness of breath, no urinary symptoms and no lower extremity edema.? On arrival to the to the ED patient hemodynamically stable with no significant abnormal vitals Labs are significant for WBC count of 15.4, lactic acid of 2.5, urine is negative, chest x-ray negative, abdominal CT shows small bowel obstruction with a transition point in the distal ileum, mild colonic diverticulosis without evidence of acute diverticulitis. hospital course 87-year-old male with past medical history of recurrent small-bowel obstruction requiring hospitalization and non operative decompression presents to the hospital with complaints of abdominal pain found to have small-bowel obstruction # small-bowel obstruction? abdominal pain resolved? patient tolerating diet had bowel movement and passing flatus therefore being discharged home and recommended low-fiber diet for next few days ?? # lactic acidosis- likely secondary to dehydration improved with IV fluids no evidence of sepsis # leukocytosis- likely reactive, repeat WBC normalized, UA negative, chest x-ray negative, abdominal CT with no diverticulitis, or colitis. # diabetes stable blood sugar not on home medication # hypertension continue all home medication Time Spent with Patient Time attestation: Total time spent providing and/or coordinating discharge services: Discharge coordination time: Greater than 30 minutes Quality: Safe Use of Opioids Does Pt have an Active Cancer Diagnosis on the Problem List?: No Quality: Stroke Does the patient have a stroke diagnosis?: No Physical Exam Vital Signs: Vital Signs: Last Vital Signs Temp 96.9 F 09/18/22 07:43 Pulse 60 09/18/22 07:43 Resp 16 09/18/22 07:43 BP 135/63 09/18/22 07:43 Pulse Ox 96 09/18/22 07:43 O2 Del Method 09/18/22 07:43 BMI result Body Mass Index 23.7 Const: Other: General patient re sting comfortably in no acute distre ss.? Neck is suppl e no JVD. CVS? reg ular rate rhythm, Respiratory lungs clear to auscultat ion, no respirator y distress, no whe scott, no rhonchi. G astrointestinal ab domen soft, nonten sonia, bowel sounds audible, no guardi ng , no rigidity. Extremities no iglesia ma. Neuro nonfocal patient moving al l 4 extremity spee ch clear. Skin no rash Psych appropr iate affect a the DS: Data Data Completed and Pending Completed studies during hospitalization [Text1]: Procedures Dilation of Bladder Neck, Via Natural or Artificial Opening Endoscopic (09/30/20) Drainage of Bladder with Drainage Device, Via Natural or Artificial Opening Endoscopic (09/30/20) Insertion of Infusion Device into Superior Vena Cava, Percutaneous Approach (08/27/20) Ultrasonography of Superior Vena Cava, Guidance (08/27/20) Labs on day of discharge: Laboratory Results - last 24 hr 09/17/22 09/17/22 09/17/22 11:09 15:31 19:25 Sodium Potassium Chloride Carbon Dioxide Anion Gap BUN Creatinine Estim Creat Clear Calc Estimated GFR POC Glucose 88 86 96 Random Glucose Calcium 09/18/22 09/18/22 06:09 07:40 Sodium 139 Potassium 3.7 Chloride 110 H Carbon Dioxide 23 Anion Gap 10 L BUN 9 Creatinine 0.71 Estim Creat Clear Calc 86.8 Estimated GFR > 60 POC Glucose 82 Random Glucose 88 Calcium 8.5 Preliminary micro results at discharge 09/15/22 01:38 Blood Culture - Preliminary Blood - Venous No growth after 48 hours. 09/15/22 01:38 Blood Culture - Preliminary Blood - Venous No growth after 48 hours. Discharge Plan Discharge Anticipated Discharge Date/Time: 09/18/22 10:12 Patient Disposition: Home, Self-Care Discharge Diagnosis: small bowel obstruction Referrals: Edouard,Pro Adame MD [Primary Care Provider] - 1 Week Discharge Medications: Continued isosorbide mononitrate 30 mg tablet extended release 24 hr 30 mg PO DAILY@1700 Qty: 90 3RF Rx Instructions: Takes with dinner lisinopril 2.5 mg tablet 2.5 mg PO DAILY 90 Days Qty: 90 2RF metoprolol tartrate 25 mg tablet 12.5 mg PO BID 90 Days Qty: 90 1RF Discharge Orders: Discharge Order (Routine); Ordered 09/18/22 Ordered By: Adonis Painter Activity on Discharge: As tolerated Stand Alone Forms: Patient Portal Discharge page Care Plan Goals: small-bowel obstruction resolved, outpatient follow-up with General surgery and PCP, follow a low-fiber diet, for next few days Health Concerns: continue all home medications as before Plan of Treatment: outpatient follow-up with PCP Assessment: as above
--- NOTE | 2022-09-18 11:07 | MHC.CM.PN ---
PT WILL DC HOME TODAY WITH NO SERVICES ORDRERED FAMILY TO TRANSPORT
== END 2022-09-18 12:02 | disposition home or self-care (01) | DRG 389 ==
LOC: HO.ED 02:23 → HO.EDOVER 02:52 → HO.S3 14:00
PROVIDERS: Admitting Provider Internal Medicine; Emergency Provider Student in an Organized Health Care Education/Training Program; PCP Internal Medicine; Visit Provider Hospitalist
DX: K56.51 Intestinal adhesions [bands], with partial obstruction (principal); E87.20 Acidosis, unspecified; N40.0 Benign prostatic hyperplasia without lower urinary tract symptoms; I25.10 Atherosclerotic heart disease of native coronary artery without angina pectoris; I10 Essential (primary) hypertension; E11.51 Type 2 diabetes mellitus with diabetic peripheral angiopathy without gangrene; E78.5 Hyperlipidemia, unspecified; D72.829 Elevated white blood cell count, unspecified; E86.0 Dehydration; Z20.822 Contact with and (suspected) exposure to COVID-19; Z85.038 Personal history of other malignant neoplasm of large intestine; Z87.891 Personal history of nicotine dependence; Z88.8 Allergy status to other drugs, medicaments and biological substances; Z79.899 Other long term (current) drug therapy
CPT/HCPCS: 0241U; 36415; 71045; 74176; 80048; 80053; 81001; 82947; 83605; 84484; 85025; 85027; 85610; 87040; 87493; 93005; 99285; J2270; J2405; J3010

== ENCOUNTER 2022-09-21 14:58 | Outpatient (REF) | payer MEDICARE, OTHER, SELFPAY ==
--- NOTE | ~2022-09-21 | XR_ITS ---
EXAMINATION: XR ABDOMEN COMPLETE CLINICAL INDICATION: Abdominal pain. COMPARISON: None TECHNIQUE: 2 views of the abdomen. FINDINGS: There is scattered stool and gas seen throughout the colon without significant distention. The small bowel loops are normal caliber. No organomegaly. No radiopaque calculi. There are degenerative disc changes and moderate spondylosis L3-L4, L1-L2 and T12-L1 disc levels. The SI joints are symmetrical and normal. XR/XR abdomen min 2V IMPRESSION: Mild constipation. No acute process seen.
== END 2022-09-21 14:59 | disposition home or self-care (01) ==
LOC: HO.XRAY 14:58
PROVIDERS: PCP Internal Medicine; Visit Provider Surgery
DX: K56.609 Unspecified intestinal obstruction, unspecified as to partial versus complete obstruction (principal)
CPT/HCPCS: 74019

== ENCOUNTER 2022-09-30 12:08 | Outpatient (REF) | payer MEDICARE, OTHER, SELFPAY ==
--- NOTE | ~2022-09-30 | XR_ITS ---
EXAMINATION: XR ABDOMEN KUB CLINICAL INDICATION: Constipation, unspecified. COMPARISON: 09/21/2022 abdominal radiographs. TECHNIQUE: AP view of the abdomen. FINDINGS: There is a nonobstructive bowel gas pattern. Mild to moderate stool seen within the colon distally to the rectum. Surgical clips and anastomotic sutures overlie the mid pelvis. Mild to moderate multilevel degenerative changes are seen in the thoracolumbar spine with mild thoracic dextro scoliosis. XR/XR KUB IMPRESSION: 1. Nonobstructive bowel gas pattern. 2. Mild to moderate colonic stool burden. Stool burden appears increased from the previous study.
== END 2022-09-30 12:09 | disposition home or self-care (01) ==
LOC: HO.XRAY 12:08
PROVIDERS: PCP Internal Medicine; Visit Provider Nurse Practitioner Family
DX: K59.00 Constipation, unspecified (principal)
CPT/HCPCS: 74018

== ENCOUNTER 2022-10-17 23:23 | Inpatient (IN) | payer MEDICARE, OTHER, SELFPAY ==
--- NOTE | ~2022-10-17 | CT_ITS ---
EXAMINATION: CT ABDOMEN AND PELVIS WITHOUT CONTRAST CLINICAL INFORMATION: Lower abdominal pain COMPARISON: 09/15/2022 TECHNIQUE: Multidetector volumetric imaging was performed from the superior aspect of the liver through the pubic symphysis. Sagittal and coronal reformatted images were obtained on the technologist's workstation. This CT examination was performed using dose optimization techniques as appropriate, variously including the following: *Automated exposure control *Adjustment of mA and/or kV according to patient size (this includes techniques or standardized protocols for targeted exams where dose is matched to indication/reason for exam; i.e. extremities or head) *Use of iterative reconstruction technique DLP: 603 mGy-cm FINDINGS: LUNG BASES: Scattered calcified bilateral pleural plaques are noted. LIVER, GALLBLADDER, AND BILIARY TREE: The liver is normal in size, shape, and attenuation. No focal hepatic lesion or biliary ductal dilatation is identified. The gallbladder is unremarkable with no evidence of radiopaque gallstones, gallbladder wall thickening, or obvious pericholecystic inflammatory changes. PANCREAS: Partially atrophic. SPLEEN: Unremarkable. ADRENAL GLANDS: Thickened appearance of both adrenal glands is noted, similar to prior. KIDNEYS AND URETERS: No hydronephrosis or obstructing calculus bilaterally. Right lower pole renal cyst measures approximately 3.8 cm; no follow-up recommended. BLADDER: Unremarkable. GASTROINTESTINAL TRACT: Moderate amount of fluid and stool is present throughout the colon, without significant wall thickening. Anastomotic suture line noted in the rectosigmoid region. Mild colonic diverticulosis is noted. There is also fluid distention of much of the mid to distal small bowel. The terminal ileum, in contrast, is collapsed, and the possibility of a developing or partial distal small bowel obstruction cannot be excluded. No free fluid or free air is seen. ABDOMINAL WALL: Small fat-containing left inguinal hernia. LYMPH NODES: Normal. VASCULAR: There is atherosclerotic calcification along the aorta and iliac arteries. PELVIC VISCERA: Unremarkable. OSSEOUS STRUCTURES: Degenerative changes are noted in the spine. CT/CT abdomen pelvis wo IV con IMPRESSION: Fluid distention of much of the mid to distal small bowel, with collapsed terminal ileum, raising possibility of a distal small bowel obstruction. However, since there is a significant amount of fluid and stool throughout the colon, if there is a distal small bowel obstruction this is likely partial or early developing in nature.
[2022-10-17 23:42] VITALS: BP 169/77; BP 170/82; PULSE 64; PULSE 68; RESP 18; TEMP 36.7; O2SAT 99; BMI 22.8
[2022-10-18] VITALS (11 sets, daily range): BP systolic 115–168; BP diastolic 51–78; PULSE 48–75; RESP 14–20; TEMP 36.3–36.7; O2SAT 96–100
--- NOTE | 2022-10-18 00:42 | ED_ITS ---
HPI - Abdominal Pain General Chief Complaint: Abdominal Pain Stated Complaint: Constipation Time Seen by Provider: 10/17/22 23:31 Source: patient Mode of arrival: EMS History of Present Illness HPI narrative: 87-year-old male brought in by EMS for lower abdominal discomfort since this morning and states that the has been constipated for approximately 3 days and endorses associated chills and denies any nausea or vomiting in states he has been able to pass flatus and otherwise denies shortness of breath, chest pain/palpitations, urinary symptoms. Related Data Previous Rx's Medication Instructions Recorded metoprolol tartrate 25 mg tablet 12.5 mg PO BID 90 days #90 tabs 04/22/22 isosorbide mononitrate 30 mg 30 mg PO DAILY@1700 #90 tabs 08/19/22 tablet,extended release 24 hr lactulose 10 gram/15 mL oral 20 g (30 mL) PO DAILY #946 mL 09/30/22 solution Allergies Allergy/AdvReac Type Severity Reaction Status Date / Time diphenhydramine AdvReac Intermediate Hallucinati Verified 10/17/22 13:10 [From Tereza] ons Review of Systems Review of Systems Pertinent positives and negatives as stated in HPI 10 point review of systems otherwise negative. [facility] Past Medical History Source: nursing notes reviewed Medical History Bladder neck contracture BPH (benign prostatic hyperplasia) Colon cancer Constipation Coronary artery disease Dysuria Erectile dysfunction Essential hypertension GERD (gastroesophageal reflux disease) Hematuria Hyperlipidemia, unspecified Obstructive sleep apnea Overweight (BMI 25.0-29.9) Peripheral vascular disease Prostate cancer Rectal cancer SBO (small bowel obstruction) Small bowel obstruction Type 2 diabetes mellitus with hyperglycemia Urinary incontinence Surgical History History of appendectomy History of bladder surgery (~01/04/18) History of carpal tunnel release History of colectomy History of prostate surgery (~2016) Family History Family History Father Pancreatic cancer Mother No problems noted. Brother Liver cancer Social History Social History Household Members: Spouse Housing: House Are you a primary transitional care manager to a significant other at home: Yes (transitional care manager for , grand daughter lives with them as well) Do you presently have visiting nurse or other home services: No Alcohol intake: never Patient Tobacco Use Status: Former Tobacco user Quit Date: years ago Tobacco use type: Cigar e-Cigarette/Vaping Use: Never Used Second Hand Smoke Exposure: No Advance Directives: Yes Advance Directives on File: Yes Advance Directives Date on File: 09/29/20 service: Yes ([employer]) Current occupational status: retired Cognitive needs: Yes (cane) Hearing needs: Yes Vision needs: Yes Physical Exam ED Vital Signs: Vital Signs - 24 hr 10/17/22 23:42 10/18/22 00:23 10/18/22 01:50 Temperature 98.0 F 97.7 F Pulse Rate 64 71 Respiratory Rate 18 16 Blood Pressure 169/77 H 168/72 H Pulse Oximetry 99 97 Oxygen Delivery Method Room Air Room Air 10/18/22 01:56 10/18/22 02:12 Temperature 97.8 F 97.9 F Pulse Rate 68 75 Respiratory Rate 18 Blood Pressure 132/63 125/78 Pulse Oximetry 97 97 Oxygen Delivery Method Room Air Room Air BMI result Body Mass Index 22.8 VITAL SIGNS: Reviewed. GENERAL: Well developed, well nourished, in mild distress. HEAD: Normocephalic/atraumatic EYES: PERRLA, EOMI EARS: Ext canals without abnormality OROPHARYNX: no oral lesions noted, posterior pharynx clear, dry mucosa LUNGS: Normal breath sounds. No adventitious sounds or accessory muscle use. SpO2<97> CARDIOVASCULAR: Regular rate and rhythm without noted murmurs, no JVD or lower extremity edema. ABDOMEN: Soft, diffuse abdominal tenderness without rebound maximal in mid lower, mild distended with hypoactive bowel sounds. MUSCULOSKELETAL: No tenderness, deformities, or effusions noted on gross in spection. EXTREMITIES: No cyanosis, clubbing or edema. SKIN: Inspection of the skin reveals no rashes NEUROLOGIC: Alert and oriented x 4. Strength and sensation to light touch were grossly intact x 4. Course Course Course Narrative: I reviewed all the laboratory and imaging studies which are consistent with a partial bowel obstruction when taken together with the history that patient provides. Patient has remained hemodynamically stable. Medical Decision Making Medical Decision Making MDM Narrative: 87-year-old male with history and clinical presentation suggestive of partial bowel obstruction given the fact that he reports he is still having flatus and there is no nausea, vomiting patient may also be having diverticulitis although he is not reporting any fever or chills. Differential Diagnosis SBO, partial SBO, diverticulitis, UTI, constipation Admission/Observation Consideration of admission/observation: Escalation of care including admission/observation considered On review of CT scan results most consistent with partial bowel obstruction or ?early developing?. Lactic acid-1.7, on re-evaluation after patient received fentanyl he has mildly improved but still remains somewhat tender to palpation. Consult Healthcare Provider Management of the patient was discussed with: Hazardous Waste Material Technician 0201: I discussed the case with Dr. Prado via tiger text who advises that this is not a candidate for surgical intervention but he will follow the patient and evaluate him in the morning. 0245: I discussed the case with inpatient hospitalist who accepts admission. Lab Data MDM Lab Attestation statement: I reviewed the patient's lab results. Result Diagrams: 10/18/22 00:56 10/18/22 00:56 Labs: Lab Results 10/18/22 10/18/22 10/18/22 Range/Units 00:56 00:56 00:56 WBC 11.6 H (4.8-10.8) X10*3/uL RBC 4.84 (4.60-5.80) X10*6/uL Hgb 14.2 (14.0-18.0) g/dl Hct 41.6 L (42.0-52.0) % MCV 86.0 (80.0-98.0) fL MCH 29.3 (27.0-33.0) pg MCHC 34.1 (31.0-36.0) g/dl RDW 12.6 (11.0-16.0) % Plt Count 236 (160-400) X10*3/uL MPV 10.0 (9.4-12.4) fL Immature Gran % (Auto) 0.4 (0.0-0.4) % Neut % (Auto) 75.4 H (45-73) % Lymph % (Auto) 17.8 L (20-40) % Hill % (Auto) 5.1 (2-11) % Eos % (Auto) 1.0 (0-4) % Baso % (Auto) 0.3 (0-2) % Lymph # (Auto) 2.1 (1.2-4.9) X10*3/uL Hill # (Auto) 0.6 (0.1-1.2) X10*3/uL Eos # (Auto) 0.1 (0.0-0.4) X10*3/uL Baso # (Auto) 0.0 (0.0-0.2) X10*3/uL Abs Immat Gran (auto) 0.05 H (0.00-0.03) X10*3/uL Absolute Neuts (auto) 8.8 H (2.0-8.3) x10*3/uL Absolute Nucleated RBC 0.000 (0.0-0.012) X10*3/uL Nucleated RBC % (auto) 0.0 (0.0-0.2) /100WBC Sodium 141 (135-145) mmol/L Potassium 4.2 (3.3-5.1) mmol/L Chloride 109 H (96-108) mmol/L Carbon Dioxide 22 (22-29) mmol/L Anion Gap 14 (12-20) BUN 19 H (9-16) mg/dL Creatinine 0.72 (0.5-1.4) mg/dL Estim Creat Clear Calc 84.1 Estimated GFR > 60 Random Glucose 136 H (60-115) mg/dL Lactic Acid 1.7 (0.5-2.0) mmol/L Calcium 9.5 D (8.4-10.2) mg/dL Total Bilirubin 0.7 (0.0-1.0) mg/dL AST 18 (5-37) U/L ALT 20 (0-40) U/L Alkaline Phosphatase 73 (39-117) U/L Total Protein 6.1 L (6.5-8.0) g/dL Albumin 3.9 (3.5-5.0) g/dL Urine Color Urine Appearance Urine pH (5.0-9.0) Ur Specific [place] (1.005-1.025) Urine Protein (Neg-Trace) mg/dL Urine Glucose (UA) (Negative) mg/dL Urine Ketones (Negative) mg/dL Urine Blood (Negative) Urine Nitrite (Negative) Ur Leukocyte Esterase (Negative) COVID-19 ([facility]) (Negative) COVID-19 Clin Com 12/20/22 12/20/22 Range/Units 02:01 02:15 WBC (4.8-10.8) X10*3/uL RBC (4.60-5.80) X10*6/uL Hgb (14.0-18.0) g/dl Hct (42.0-52.0) % MCV (80.0-98.0) fL MCH (27.0-33.0) pg MCHC (31.0-36.0) g/dl RDW (11.0-16.0) % Plt Count (160-400) X10*3/uL MPV (9.4-12.4) fL Immature Gran % (Auto) (0.0-0.4) % Neut % (Auto) (45-73) % Lymph % (Auto) (20-40) % Hill % (Auto) (2-11) % Eos % (Auto) (0-4) % Baso % (Auto) (0-2) % Lymph # (Auto) (1.2-4.9) X10*3/uL Hill # (Auto) (0.1-1.2) X10*3/uL Eos # (Auto) (0.0-0.4) X10*3/uL Baso # (Auto) (0.0-0.2) X10*3/uL Abs Immat Gran (auto) (0.00-0.03) X10*3/uL Absolute Neuts (auto) (2.0-8.3) x10*3/uL Absolute Nucleated RBC (0.0-0.012) X10*3/uL Nucleated RBC % (auto) (0.0-0.2) /100WBC Sodium (135-145) mmol/L Potassium (3.3-5.1) mmol/L Chloride (96-108) mmol/L Carbon Dioxide (22-29) mmol/L Anion Gap (12-20) BUN (9-16) mg/dL Creatinine (0.5-1.4) mg/dL Estim Creat Clear Calc Estimated GFR Random Glucose (60-115) mg/dL Lactic Acid (0.5-2.0) mmol/L Calcium (8.4-10.2) mg/dL Total Bilirubin (0.0-1.0) mg/dL AST (5-37) U/L ALT (0-40) U/L Alkaline Phosphatase (39-117) U/L Total Protein (6.5-8.0) g/dL Albumin (3.5-5.0) g/dL Urine Color Yellow Urine Appearance Clear Urine pH 8.5 (5.0-9.0) Ur Specific [place] 1.015 (1.005-1.025) Urine Protein Negative (Neg-Trace) mg/dL Urine Glucose (UA) Negative (Negative) mg/dL Urine Ketones Negative (Negative) mg/dL Urine Blood Negative (Negative) Urine Nitrite Negative (Negative) Ur Leukocyte Esterase Negative (Negative) COVID-19 ([facility]) Negative (Negative) COVID-19 Clin Com See Note Radiology Impression Radiologist Impression: Have interpreted and agree with Radiology reading of CT scan. External Record Review External record reviewed: Inpatient record and Prior outpatient labs Chronic Conditions Patient?s care impacted by: Diabetes Medications Administered Discontinued Medications Generic Name Dose Route Start Last Admin Trade Name Jewels PRN Reason Stop Dose Admin Fentanyl 25 mcg 10/18/22 00:44 10/18/22 01:50 Fentanyl Citrate/Pf 100 Mcg/2 Ml Vial IVPUSH 10/18/22 00:45 25 mcg ONCE ONE Administration Protocol Sodium Chloride 1,000 mls @ 999 mls/hr 10/18/22 00:45 10/18/22 01:49 Ns IV 10/18/22 01:45 999 mls/hr .Q1H1M KRISTINE Administration Critical Care Time Critical Care Time Critical Care Time: Yes Total Critical Care Time: 30 Attestation: I personally attest to this time spent taking care of the patient. Discharge Plan Discharge Clinical Impression: Small bowel obstruction, partial, Abdominal pain Patient Disposition: Admitted As Inpatient Prescriptions: No Action isosorbide mononitrate 30 mg tablet extended release 24 hr 30 mg PO DAILY@1700 Qty: 90 3RF Rx Instructions: Takes with dinner metoprolol tartrate 25 mg tablet 12.5 mg PO BID 90 Days Qty: 90 1RF lactulose 10 gram/15 mL solution 20 g PO DAILY Qty: 946 0RF Rx Instructions: Take daily as needed to facilitate daily bowel movements.
[2022-10-18 01:01] LABS: Basophils Percent Auto 0.3 % (0-2); Eosinophils Absolute Auto 0.1 X10*3/uL (0.0-0.4); Hematocrit 41.6 % (42.0-52.0); Hemoglobin 14.2 g/dl (14.0-18.0); Imm Gran Abs Auto 0.05 X10*3/uL (0.00-0.03); Imm Gran Pct Auto 0.4 % (0.0-0.4); Lymphocytes Absolute Auto 2.1 X10*3/uL (1.2-4.9); Lymphocytes Percent Auto 17.8 % (20-40); MANUAL DIFF FLAG NO; Mean Corpuscular HGB Conc 34.1 g/dl (31.0-36.0); Mean Corpuscular Hemoglobin 29.3 pg (27.0-33.0); Monocytes Absolute Auto 0.6 X10*3/uL (0.1-1.2); Monocytes Percent Auto 5.1 % (2-11); Neutrophils Absolute Auto 8.8 x10*3/uL (2.0-8.3); Neutrophils Percent Auto 75.4 % (45-73); Platelet Count 236 X10*3/uL (160-400); Red Blood Count 4.84 X10*6/uL (4.60-5.80); Red Cell Distribution Width 12.6 % (11.0-16.0); White Blood Count 11.6 X10*3/uL (4.8-10.8)
[2022-10-18 01:13] LABS: Lactic Acid 1.7 mmol/L (0.5-2.0)
[2022-10-18 01:19] LABS: Alanine Aminotransferase 20 U/L (0-40); Albumin Level 3.9 g/dL (3.5-5.0); Alkaline Phosphatase 73 U/L (39-117); Anion Gap 14 (12-20); Aspartate Amino Transferase 18 U/L (5-37); Blood Urea Nitrogen 19 mg/dL (9-16); Calcium 9.5 mg/dL (8.4-10.2); Carbon Dioxide 22 mmol/L (22-29); Chloride 109 mmol/L (96-108); Creatinine Clr Calc Pharmacy 84.1; Estimated Glomerular Filt Rate > 60; Glucose Random 136 mg/dL (60-115); Potassium 4.2 mmol/L (3.3-5.1); Sodium 141 mmol/L (135-145); Total Protein 6.1 g/dL (6.5-8.0)
[2022-10-18 01:22] LABS: Bilirubin Total 0.7 mg/dL (0.0-1.0)
[2022-10-18] MEDS: 0.9 % Sodium Chloride 1,000 ML 999 ML IV (01:49)
[2022-10-18] MEDS: fentaNYL citrate/PF 100 MCG/2 ML VIAL 25 MCG IVPUSH (01:50)
[2022-10-18 02:11] LABS: Appearance Urine Clear; Color Urine Yellow; Glucose Urine UA Negative (Negative); Leukocyte Esterase Urine Negative (Negative); Nitrite Urine Negative (Negative); PH 8.5 (5.0-9.0); Specific Gravity - Urine 1.015 (1.005-1.025); Urine Blood Negative (Negative); Urine Ketones Negative (Negative); Urine Protein Negative (Neg-Trace)
[2022-10-18 02:41] LABS: COVID-19 Test Negative (Negative); IDNOW Serial# BCCEAD1C
--- NOTE | 2022-10-18 03:32 | P.HPHOSP_ITS ---
History of Present Illness Date of Service: 10/18/22 Chief Complaint: abd pain 87M pmh colorectal cancer s/p resection, now complicated by recurrent SBO, most recently 08/2022, diet controlled DM, prostate ca, HTN, presented with abd pain. patient states pain began on AM of presentation associated with 3 days of c onstipation, though has passed some small stools and flatus. feels similar to previous SBO. in ED CT showed partial vs early SBO. Review of Systems 2 Review of Systems: Constitutional: Denies fever, denies Chills Eyes: denies blurry vision ENT: denies sore throat CVS: denies chest pain Respiratory: Denies dyspnea GI: abdominal pain : denies dysuria MSK: denies neck pain Skin: denies rash Neuro: denies specific motor weakness Psych: denies suicidal ideation Endocrine: denies heat/cold intolerance Hematologic: denies easy bleeding Allergy: denies hives [facility] Medical History Bladder neck contracture BPH (benign prostatic hyperplasia) Colon cancer Constipation Coronary artery disease Dysuria Erectile dysfunction Essential hypertension GERD (gastroesophageal reflux disease) Hematuria Hyperlipidemia, unspecified Obstructive sleep apnea Overweight (BMI 25.0-29.9) Peripheral vascular disease Prostate cancer Rectal cancer SBO (small bowel obstruction) Small bowel obstruction Type 2 diabetes mellitus with hyperglycemia Urinary incontinence Family History Father Pancreatic cancer Mother No problems noted. Brother Liver cancer Surgical History History of appendectomy History of bladder surgery (~01/04/18) History of carpal tunnel release History of colectomy History of prostate surgery (~2016) Social History Household Members: Spouse Housing: House Are you a primary lawn care specialist to a significant other at home: Yes (lawn care specialist for , grand daughter lives with them as well) Do you presently have visiting nurse or other home services: No Alcohol intake: never Patient Tobacco Use Status: Former Tobacco user Quit Date: years ago Tobacco use type: Cigar e-Cigarette/Vaping Use: Never Used Second Hand Smoke Exposure: No Advance Directives: Yes Advance Directives on File: Yes Advance Directives Date on File: 09/29/20 service: Yes ([employer]) Current occupational status: retired Cognitive needs: Yes (cane) Hearing needs: Yes Vision needs: Yes Meds Allergies Allergy/AdvReac Type Severity Reaction Status Date / Time diphenhydramine AdvReac Intermediate Hallucinati Verified 10/17/22 13:10 [From Benadryl] ons Active Medications: Current Medications Sodium Chloride (Sodium Chloride 0.45 %) 1,000 mls @ 80 mls/hr IVCONT .[id number] KRISTINE Metoprolol Tartrate (Metoprolol Tartrate 12.5 Mg Halftab) 12.5 mg PO BID KRISTINE; Protocol Morphine Sulfate (Morphine Sulfate 2 Mg/Ml Cartridge) 2 mg IVPUSH Q4H PRN; Protocol PRN Reason: moderate pain Sodium Chloride (0.9 % Sodium Chloride Flush 3 Ml Syringe) 3 ml IVFLUSH QSHIFT KRISTINE Physical Exam Vital Signs and Narrative: Vital Signs: Last Vital Signs Temp 97.9 F 10/18/22 02:12 Pulse 75 10/18/22 02:12 Resp 18 10/18/22 01:56 BP 125/78 10/18/22 02:12 Pulse Ox 97 10/18/22 02:12 O2 Del Method 10/18/22 02:12 BMI result Body Mass Index 22.8 General: no acute distress HEENT: atraumatic Neck: normal to visual inspection CVS: S1, S2, RRR Resp: CTA bilateral Chest: non tender GI: soft, mildly tender, mildly distended : no CVA tenderness Skin: no rashes Extremities: no edema Neuro: Oriented X3, grossly intact Psych: cooperative Results Labs CBC and Chem 7: 10/18/22 00:56 10/18/22 00:56 Labs: Laboratory Results - last 24 hr 10/18/22 10/18/22 10/18/22 00:56 00:56 00:56 MCV 86.0 MCH 29.3 MCHC 34.1 RDW 12.6 Plt Count 236 MPV 10.0 Immature Gran % (Auto) 0.4 Neut % (Auto) 75.4 H Lymph % (Auto) 17.8 L [place] % (Auto) 5.1 Eos % (Auto) 1.0 Baso % (Auto) 0.3 Lymph # (Auto) 2.1 [place] # (Auto) 0.6 Eos # (Auto) 0.1 Baso # (Auto) 0.0 Abs Immat Gran (auto) 0.05 H Absolute Neuts (auto) 8.8 H Absolute Nucleated RBC 0.000 Nucleated RBC % (auto) 0.0 Anion Gap 14 Estim Creat Clear Calc 84.1 Estimated GFR > 60 Random Glucose 136 H Lactic Acid 1.7 Calcium 9.5 D Total Bilirubin 0.7 AST 18 ALT 20 Alkaline Phosphatase 73 Total Protein 6.1 L Albumin 3.9 Urine Color Urine Appearance Urine pH Ur Specific [place] Urine Protein Urine Glucose (UA) Urine Ketones Urine Blood Urine Nitrite Ur Leukocyte Esterase COVID-19 ([facility]) COVID-19 Clin Com 10/18/22 10/18/22 02:01 02:15 MCV MCH MCHC RDW Plt Count MPV Immature Gran % (Auto) Neut % (Auto) Lymph % (Auto) [place] % (Auto) Eos % (Auto) Baso % (Auto) Lymph # (Auto) [place] # (Auto) Eos # (Auto) Baso # (Auto) Abs Immat Gran (auto) Absolute Neuts (auto) Absolute Nucleated RBC Nucleated RBC % (auto) Anion Gap Estim Creat Clear Calc Estimated GFR Random Glucose Lactic Acid Calcium Total Bilirubin AST ALT Alkaline Phosphatase Total Protein Albumin Urine Color Yellow Urine Appearance Clear Urine pH 8.5 Ur Specific [place] 1.015 Urine Protein Negative Urine Glucose (UA) Negative Urine Ketones Negative Urine Blood Negative Urine Nitrite Negative Ur Leukocyte Esterase Negative COVID-19 ([facility]NA) Negative COVID-19 Clin Com See Note Imaging Radiologist's Impressions: Impressions Abdomen/Pelvis CT 10/18/22 00:46 IMPRESSION: Fluid distention of much of the mid to distal small bowel, with collapsed terminal ileum, raising possibility of a distal small bowel obstruction. However, since there is a significant amount of fluid and stool throughout the colon, if there is a distal small bowel obstruction this is likely partial or early developing in nature. Assessment and Plan (1) Small bowel obstruction, partial: Status: Acute Plan 87M pmh colorectal cancer s/p resection, now complicated by recurrent SBO, most recently 08/2022, diet controlled DM, prostate ca, HTN, presented with abd pain, found to have recurrent partial sbo vs early sbo. partial vs early small bowel obstruction npo, ivf, surgery eval HTN metoprolol imdur diet controlled DM monitor prostate ca outpatient follow up with dvt prophylaxis - lovenox DNR/DNI patient with partial sbo vs early sbo, not tolerating diet, will need iv support and close monitoring, expected to need atleast 2 midnights inpatient until resolution. Time Spent With Patient Time: Total time managing care of this patient today ____ minutes. Quality Stroke Does the patient have a stroke diagnosis?: No VTE Prior VTE?: No VTE Risk Level:: Medical - moderate - high VTE Device Contraindication: Treatment Not Indicated VTE Drug Contraindication: N/A - Med Ordered
[2022-10-18] MEDS: Sodium Chloride 0.45 % 1,000 ML 80 ML IVCONT ×2 (04:00→14:37)
--- NOTE | 2022-10-18 08:02 | PHA.MEDREC ---
Pharmacy Consult ? Medication Reconciliation Pharmacy has completed the medication reconciliation.
[2022-10-18] MEDS: 0.9 % Sodium Chloride Flush 3 ML SYRINGE IVFLUSH (09:16)
[2022-10-18] MEDS: Metoprolol Tartrate 12.5 MG HALFTAB PO ×2 (09:16→21:08)
[2022-10-18] MEDS: Enoxaparin Sodium 40 MG/0.4 ML SYRINGE SUBCUT (09:16)
[2022-10-18] MEDS: Morphine Sulfate 2 MG/ML CARTRIDGE IVPUSH (10:14)
--- NOTE | 2022-10-18 10:28 | P.CONGS_ITS ---
History of Present Illness Consult details Consult date: 10/18/22 <Nayeli Prado PA-C - Last Filed: 10/18/22 13:06> Reason for consult: abdominal pain <MARTHA Lopez Last Filed: 10/18/22 13:06> Requesting physician: Rk Looney <MARTHA Lopez Last Filed: 10/18/22 13:06> Narrative: 87 year old male with multiple medical comorbidities and extensive surgical history with multiple SBOs, last 09/20, who presented to the ED with complaints of abdominal pain. He reports he was in his usual state of health until yesterday afternoon when he developed severe lower abdominal pain about an hour after eating mac and cheese. This was associated with bloating and constipation. He denies nausea or vomiting. Due to the severity of pain, he presented to the ED for further evaluation. CT scan was performed which showed moderate amount of fluid and stool is present throughout the colon with fluid distention of the small bowel. He was admitted to medicine for further treatment of the possible SBO. Surgery was consulted for evaluation. This morning, he feels better. His abdominal is improved. He just had a firm bowel movement and has been passing gas. He continues to struggle with constipation and has been on colace, miralax with lactulose was recently started by his PCP. <Naeyli Prado PA-C - Last Filed: 10/18/22 13:06> Review of Systems Constitutional: Constitutional: Denies chills and Denies fever(s) <MARTHA Lopez Last Filed: 10/18/22 13:06> ENT: Denies dizziness <MARTHA Lopez Last Filed: 10/18/22 13:06> Cardiovascular: Cardiovascular: Denies chest pain and Denies dyspnea <MARTHA Lopez Last Filed: 10/18/22 13:06> Respiratory: Respiratory: Denies cough and Denies dyspnea <MARTHA Lopez Last Filed: 10/18/22 13:06> Gastrointestinal: Gastrointestinal: Reports as per HPI, Denies change in stool character, Denies diarrhea, Denies nausea and Denies vomiting <Nayeli Prado PA-C - Last Filed: 10/18/22 13:06> Genitourinary: Genitourinary: Denies hematuria <Nayeli Prado PA-C - Last Filed: 10/18/22 13:06> Integumentary/Breasts: Skin/Breast: Denies rash <Nayeli Prado PA-C - Last Filed: 10/18/22 13:06> Neurologic: Denies dizziness <Nayeli Prado PA-C - Last Filed: 10/18/22 13:06> [facility] Past Medical History Medical History: Medical History Bladder neck contracture BPH (benign prostatic hyperplasia) Colon cancer Constipation Coronary artery disease Dysuria Erectile dysfunction Essential hypertension GERD (gastroesophageal reflux disease) Hematuria Hyperlipidemia, unspecified Obstructive sleep apnea Overweight (BMI 25.0-29.9) Peripheral vascular disease Prostate cancer Rectal cancer SBO (small bowel obstruction) Small bowel obstruction Type 2 diabetes mellitus with hyperglycemia Urinary incontinence <Nayeli Prado PA-C - Last Filed: 10/18/22 13:06> Family History Family History: Family History Father Pancreatic cancer Mother No problems noted. Brother Liver cancer <Nayeli Prado PA-C - Last Filed: 10/18/22 13:06> Surgical History Surgical History: Surgical History (Updated 10/18/22 @ 10:30 by Nayeli Prado PA-C) History of appendectomy History of bladder surgery (~01/04/18) History of carpal tunnel release History of colectomy History of exploratory laparotomy History of prostate surgery (~2016) <Nayeli Prado PA-C - Last Filed: 10/18/22 13:06> Social History Social History: Social History Household Members: Spouse Housing: House Are you a primary hearing healthcare practitioner to a significant other at home: Yes (hearing healthcare practitioner for , grand daughter lives with them as well) Do you presently have visiting nurse or other home services: No Alcohol intake: never Patient Tobacco Use Status: Former Tobacco user Quit Date: years ago Tobacco use type: Cigar Smoked in Last 30 Days: No e-Cigarette/Vaping Use: Never Used Second Hand Smoke Exposure: No Use of substances other than those prescribed or required for medical reasons: No Advance Directives: Yes Advance Directives on File: Yes Advance Directives Date on File: 09/29/20 service: Yes ([employer]) Current occupational status: retired Cognitive needs: Yes (cane) Hearing needs: Yes Vision needs: Yes <Nayeli Prado PA-C - Last Filed: 10/18/22 13:06> Meds Allergies/Adverse reactions: Allergies Allergy/AdvReac Type Severity Reaction Status Date / Time diphenhydramine AdvReac Intermediate Hallucinati Verified 10/17/22 13:10 [From Benadryl] ons <Nayeli Prado PA-C - Last Filed: 10/18/22 13:06> Active Medications: Current Medications Enoxaparin Sodium (Enoxaparin Sodium 40 Mg/0.4 Ml Syringe) 40 mg SUBCUT Q24H [facility] Last Admin: 10/18/22 09:16 Dose: 40 mg Sodium Chloride (Sodium Chloride 0.45 %) 1,000 mls @ 80 mls/hr IVCONT .[id number] [facility] Last Admin: 10/18/22 04:00 Dose: 80 mls/hr Isosorbide Mononitrate (Isosorbide Mononitrate 30 Mg Tab.Er.24h) 30 mg PO DAILY@1700 KRISTINE; Protocol Metoprolol Tartrate (Metoprolol Tartrate 12.5 Mg Halftab) 12.5 mg PO BID KRISTINE; Protocol Last Admin: 10/18/22 09:16 Dose: 12.5 mg Morphine Sulfate (Morphine Sulfate 2 Mg/Ml Cartridge) 2 mg IVPUSH Q4H PRN; Protocol PRN Reason: moderate pain Last Admin: 10/18/22 10:14 Dose: 2 mg Sodium Chloride (0.9 % Sodium Chloride Flush 3 Ml Syringe) 3 ml IVFLUSH QSHIFT [facility] Last Admin: 10/18/22 09:16 Dose: 3 ml <Nayeli Prado PA-C - Last Filed: 10/18/22 13:06> Physical Exam Vital Signs: Vital Signs: Last Vital Signs Temp 98.0 F 10/18/22 08:14 Pulse 52 10/18/22 08:14 Resp 14 10/18/22 08:14 BP 115/51 L 10/18/22 08:14 Pulse Ox 97 10/18/22 08:14 O2 Del Method 10/18/22 08:14 BMI result Body Mass Index 22.8 <TOSHA LopezTyler - Last Filed: 10/18/22 13:06> Const: General: comfortable, no acute distress and alert <TOSHA Lopez - Last Filed: 10/18/22 13:06> Orientation/consciousness: patient oriented x3 <CORNELIO Lopez - Last Filed: 10/18/22 13:06> Resp: Effort & Inspection: normal respiratory effort <TOSHA Lopez - Last Filed: 10/18/22 13:06> GI: Inspection: Yes distended (mild) <CORNELIO LopezChristos Last Filed: 10/18/22 13:06> Palpation (GI): Soft to palpation, Tenderness to palpation present (GI) (lower abdomen, mild), no guarding and not rigid <Nayeli TOSHA Prado - Last Filed: 10/18/22 13:06> Percussion: Yes tympanic to percussion <Nayeli TOSHA Prado - Last Filed: 10/18/22 13:06> Skin: General skin exam: no rashes or lesions noted <TOSHA Lopez Last Filed: 10/18/22 13:06> Neuro: General: patient oriented x3 <Nayeli TOSHA Prado - Last Filed: 10/18/22 13:06> Extrem: General: Yes no clubbing, cyanosis or edema <TOSHA Lopez - Last Filed: 10/18/22 13:06> Results Labs Result diagrams: : 10/18/22 00:56 10/18/22 00:56 <TOSHA Lopez Christos Last Filed: 10/18/22 13:06> Labs: Abnormal lab results 10/18/22 10/18/22 Range/Units 00:56 00:56 WBC 11.6 H (4.8-10.8) X10*3/uL Hct 41.6 L (42.0-52.0) % Neut % (Auto) 75.4 H (45-73) % Lymph % (Auto) 17.8 L (20-40) % Abs Immat Gran (auto) 0.05 H (0.00-0.03) X10*3/uL Absolute Neuts (auto) 8.8 H (2.0-8.3) x10*3/uL Chloride 109 H (96-108) mmol/L BUN 19 H (9-16) mg/dL Random Glucose 136 H (60-115) mg/dL Total Protein 6.1 L (6.5-8.0) g/dL Short CBC 10/18/22 Range/Units 00:56 WBC 11.6 H (4.8-10.8) X10*3/uL Hgb 14.2 (14.0-18.0) g/dl Hct 41.6 L (42.0-52.0) % Plt Count 236 (160-400) X10*3/uL BMP 10/18/22 00:56 Sodium 141 Potassium 4.2 Chloride 109 H Carbon Dioxide 22 BUN 19 H Creatinine 0.72 Calcium 9.5 D Liver Function 10/18/22 Range/Units 00:56 Total Bilirubin 0.7 (0.0-1.0) mg/dL AST 18 (5-37) U/L ALT 20 (0-40) U/L Alkaline Phosphatase 73 (39-117) U/L Albumin 3.9 (3.5-5.0) g/dL Urine 10/18/22 Range/Units 02:01 Urine Color Yellow Urine Appearance Clear Urine pH 8.5 (5.0-9.0) Ur Specific [place] 1.015 (1.005-1.025) Urine Protein Negative (Neg-Trace) mg/dL Urine Glucose (UA) Negative (Negative) mg/dL All other labs normal. <Nayeli Prado PA-C - Last Filed: 10/18/22 13:06> Imaging Abdomen CT scan report/results: report reviewed and image reviewed <Nayeli Prado PA-C - Last Filed: 10/18/22 13:06> Assessment and Plan (1) Abdominal pain: Status: Acute <Nayeli Prado PA-C - Last Filed: 10/18/22 13:06> He says his abdominal pain has improved significantly He has passed flatus and BMs Abdomen soft, very benign, nontender, nondistended at this time He looks well On clear liquids, okay to advance slowly as tolerated Out of bed to chair Seen and examined independently - agree with CORNELIO Prado <Marco A Prado MD - Last Filed: 10/18/22 14:00> 87 year old male with PMH including HTN, PVD, rectal CA, CAD, DM with ex tensive surgical history who presented for abdominal pain with CT showing stool and fluid filled colon. He is improved symptomatically and has return of GI function. He is clinically appearing well with a relatively benign abdominal exam. Will advance to clear liquid diet and this can be advanced further as tolerated. His CT scan shows his colon is FOS. He has chronic constipation- will order bowel regimen. <Nayeli Prado PA-C - Last Filed: 10/18/22 13:06> Time Spent With Patient Time: Total time managing care of this patient today ____ minutes. <Nayeli Prado PA-C - Last Filed: 10/18/22 13:06> Procedures Date of Service Date of Service: 10/18/22 <Nayeli Prado PA-C - Last Filed: 10/18/22 13:06>
--- NOTE | 2022-10-18 10:52 | P.PNIM_ITS ---
Subjective Subjective Date of Service: 10/18/22 Interval History: Patient reports shortly after admission, he had a moderate size bowel movement. He reports that he continues to pass flatus. Abdominal pain has improved. He denies nausea/vomiting. Review of Systems A complete 12 point review of systems has been performed and is negative if not noted in HPI Physical Exam Vital Signs: Vital Signs: Last Vital Signs Temp 98.0 F 10/18/22 08:14 Pulse 52 10/18/22 08:14 Resp 14 10/18/22 08:14 BP 115/51 L 10/18/22 08:14 Pulse Ox 97 10/18/22 08:14 O2 Del Method 10/18/22 08:14 BMI result Body Mass Index 22.8 Const: Other: General: Appears stated age, in no acute distress, answers questions accurately and appropriately. Skin: Warm and well perfused, no rashes, no obvious open wounds or sores or bruises. Respiratory: Lungs CTAB, no rales/rhonchi, no expiratory/inspiratorywheezing, Cardiac: Regular rhythm, no rubs, gallops, murmurs or clicks. No JVD/carotid b ruits. Abdomen: Soft yet mildly distended, tenderness noted to left lower and mid abdomen with palpation, hypoactive bowel sounds noted throughout Extremities: No pedal or lower extremity edema noted. Neuro: Alert and oriented x3 Psych: Mood appropriate, no agitation /restlessness noted. Objective Data Active Medications Enoxaparin Sodium (Enoxaparin Sodium 40 Mg/0.4 Ml Syringe) 40 mg SUBCUT Q24H ON LICENSE OF [facility] Last Admin: 10/18/22 09:16 Dose: 40 mg Documented By: NAHED Sodium Chloride (Sodium Chloride 0.45 %) 1,000 mls @ 80 mls/hr IVCONT .[id number] ON LICENSE OF [facility] Last Admin: 10/18/22 04:00 Dose: 80 mls/hr Documented By: CILOCL Isosorbide Mononitrate (Isosorbide Mononitrate 30 Mg Tab.Er.24h) 30 mg PO DAILY@1700 ON LICENSE OF [facility]; Protocol Metoprolol Tartrate (Metoprolol Tartrate 12.5 Mg Halftab) 12.5 mg PO BID ON LICENSE OF [facility]; Protocol Last Admin: 10/18/22 09:16 Dose: 12.5 mg Documented By: HO.CONND Morphine Sulfate (Morphine Sulfate 2 Mg/Ml Cartridge) 2 mg IVPUSH Q4H PRN; Protocol PRN Reason: moderate pain Last Admin: 10/18/22 10:14 Dose: 2 mg Documented By: NAHED Sodium Chloride (0.9 % Sodium Chloride Flush 3 Ml Syringe) 3 ml IVFLUSH QSHIFT ON LICENSE OF [facility] Last Admin: 10/18/22 09:16 Dose: 3 ml Documented By: NAHED Labs CBC & Chem 7: 10/18/22 14:56 10/18/22 00:56 Labs: Laboratory Results - last 24 hr 10/18/22 10/18/22 10/18/22 00:56 00:56 00:56 MCV 86.0 MCH 29.3 MCHC 34.1 RDW 12.6 Plt Count 236 MPV 10.0 Immature Gran % (Auto) 0.4 Neut % (Auto) 75.4 H Lymph % (Auto) 17.8 L [place] % (Auto) 5.1 Eos % (Auto) 1.0 Baso % (Auto) 0.3 Lymph # (Auto) 2.1 [place] # (Auto) 0.6 Eos # (Auto) 0.1 Baso # (Auto) 0.0 Abs Immat Gran (auto) 0.05 H Absolute Neuts (auto) 8.8 H Absolute Nucleated RBC 0.000 Nucleated RBC % (auto) 0.0 Anion Gap 14 Estim Creat Clear Calc 84.1 Estimated GFR > 60 Random Glucose 136 H Lactic Acid 1.7 Calcium 9.5 D Total Bilirubin 0.7 AST 18 ALT 20 Alkaline Phosphatase 73 Total Protein 6.1 L Albumin 3.9 Urine Color Urine Appearance Urine pH Ur Specific [place] Urine Protein Urine Glucose (UA) Urine Ketones Urine Blood Urine Nitrite Ur Leukocyte Esterase COVID-19 ([facility]) COVID-19 Clin Com 10/18/22 10/18/22 02:01 02:15 MCV MCH MCHC RDW Plt Count MPV Immature Gran % (Auto) Neut % (Auto) Lymph % (Auto) [place] % (Auto) Eos % (Auto) Baso % (Auto) Lymph # (Auto) [place] # (Auto) Eos # (Auto) Baso # (Auto) Abs Immat Gran (auto) Absolute Neuts (auto) Absolute Nucleated RBC Nucleated RBC % (auto) Anion Gap Estim Creat Clear Calc Estimated GFR Random Glucose Lactic Acid Calcium Total Bilirubin AST ALT Alkaline Phosphatase Total Protein Albumin Urine Color Yellow Urine Appearance Clear Urine pH 8.5 Ur Specific [place] 1.015 Urine Protein Negative Urine Glucose (UA) Negative Urine Ketones Negative Urine Blood Negative Urine Nitrite Negative Ur Leukocyte Esterase Negative COVID-19 ([facility]) Negative COVID-19 Clin Com See Note Imaging CT scan - abdomen: Radiologist's impression: Impressions Abdomen/Pelvis CT 10/18/22 00:46 IMPRESSION: Fluid distention of much of the mid to distal small bowel, with collapsed terminal ileum, raising possibility of a distal small bowel obstruction. However, since there is a significant amount of fluid and stool throughout the colon, if there is a distal small bowel obstruction this is likely partial or early developing in nature. Assessment and Plan (1) Small bowel obstruction, partial: Status: Acute Plan Recurrent SBO - 87 year old male with a history of colorectal cancer s/p resection admitted with recurrent SBO. - Patient reports he had a moderate-sized bowel movement since admission. -NPO (will advance as tolerated) IV fluids, surgery consulted, recommendations appreciated Hypertension - Currently well managed - Continue metoprolol, Imdur. Diabetes mellitus, diet controlled - Monitor daily random glucose. History of prostate cancer - Currently denying urology issues at this time - Follows with outpatient DVT prophylaxis - Lovenox. Patient is a DNR/DNI Case and plan discussed with Dr Marvel Cuevas Quality Stroke Does the patient have a stroke diagnosis?: No VTE Prior VTE?: No VTE Risk Level:: Medical - moderate - high VTE Device Contraindication: Treatment Not Indicated VTE Drug Contraindication: N/A - Med Ordered
--- NOTE | 2022-10-18 11:32 | MHC.CM.PN ---
Patient is unavailable; CM spoke with Grandginaughter/Jacqui @ [phone] and addressed IMM with her (original will be mailed certified letter to her and a copy will be placed on the chart). Patient lives in a house with his , Granddaughter, and great grandchildren and he uses a cane to assist with mobility. Home is the goal and CM has initiated and will follow for dc planning. Patient has received Covid vax x4 and the PCP is Dr. Nunn.
--- NOTE | 2022-10-18 11:38 | PC.NURSE ---
pt stated hat he moved his bowels in the bathroom a decent amount, hard though surgeon aware.
[2022-10-18] MEDS: polyethylene glycoL 3350 17 GM POWD.PACK PO (14:37)
[2022-10-18 15:17] LABS: Hematocrit 40.8 % (42.0-52.0); Hemoglobin 13.4 g/dl (14.0-18.0); Mean Corpuscular HGB Conc 32.8 g/dl (31.0-36.0); Mean Corpuscular Hemoglobin 29.5 pg (27.0-33.0); Mean Corpuscular Volume 89.7 fL (80.0-98.0); Mean Platelet Volume 10.2 fL (9.4-12.4); Platelet Count 214 X10*3/uL (160-400); Red Blood Count 4.55 X10*6/uL (4.60-5.80); Red Cell Distribution Width 12.7 % (11.0-16.0); White Blood Count 6.6 X10*3/uL (4.8-10.8)
[2022-10-18] MEDS: Isosorbide Mononitrate 30 MG TAB.ER.24H PO (17:08)
[2022-10-18] MEDS: Sennosides/Docusate Sodium TABLET 1 TAB PO (21:08)
[2022-10-19] MEDS: Sodium Chloride 0.45 % 1,000 ML 80 ML IVCONT (03:33)
[2022-10-19 04:00] VITALS: BP 117/58; PULSE 60; RESP 17; TEMP 36.4; O2SAT 96
[2022-10-19 06:18] LABS: Hematocrit 37.5 % (42.0-52.0); Hemoglobin 12.4 g/dl (14.0-18.0); Mean Corpuscular HGB Conc 33.1 g/dl (31.0-36.0); Mean Corpuscular Hemoglobin 29.6 pg (27.0-33.0); Mean Corpuscular Volume 89.5 fL (80.0-98.0); Mean Platelet Volume 10.7 fL (9.4-12.4); Platelet Count 198 X10*3/uL (160-400); Red Blood Count 4.19 X10*6/uL (4.60-5.80); Red Cell Distribution Width 12.6 % (11.0-16.0); White Blood Count 6.2 X10*3/uL (4.8-10.8)
[2022-10-19 07:00] LABS: Anion Gap 11 (12-20); Blood Urea Nitrogen 11 mg/dL (9-16); Calcium 8.2 mg/dL (8.4-10.2); Carbon Dioxide 20 mmol/L (22-29); Chloride 114 mmol/L (96-108); Creatinine Clr Calc Pharmacy 93.1; Estimated Glomerular Filt Rate > 60; Glucose Fasting 75 mg/dL (60-99); Glucose Random 75 mg/dL (60-115); Sodium 141 mmol/L (135-145)
[2022-10-19 08:00] VITALS: BP 159/71; PULSE 63; RESP 18; TEMP 36.6; O2SAT 96
[2022-10-19] MEDS: Enoxaparin Sodium 40 MG/0.4 ML SYRINGE SUBCUT (08:43)
[2022-10-19] MEDS: Sennosides/Docusate Sodium TABLET 1 TAB PO (08:43)
[2022-10-19] MEDS: polyethylene glycoL 3350 17 GM POWD.PACK PO (08:43)
[2022-10-19] MEDS: Metoprolol Tartrate 12.5 MG HALFTAB PO ×2 (08:43→21:28)
--- NOTE | 2022-10-19 13:20 | HO.PM.IMPN ---
Subjective Subjective Date of Service: 10/19/22 Interval History: BM yesterday, none today was on liquid diet, tried solids and had some lower abd pain no N/V Review of Systems Review of Systems: Yes all other systems are reviewed and are negative Physical Exam Vital Signs: Vital Signs: Last Vital Signs Temp 97.9 F 10/19/22 08:00 Pulse 63 10/19/22 08:00 Resp 18 10/19/22 08:00 BP 159/71 H 10/19/22 08:00 Pulse Ox 96 10/19/22 08:00 O2 Del Method 10/19/22 08:00 BMI result Body Mass Index 22.8 Gen: in no acute distress HEENT: sclera anicteric, moist mucus membranes Neck: supple Lungs: clear to auscultation bilaterally Heart: regular rate and rhythm, no murmurs Abd: soft, normal bowel sounds, bilateral lower quadrant tenderness without rebound/guarding Ext: no edema Skin: warm/well-perfused Neuro: alert and oriented x3, no focal findings Psych: appropriate affect Objective Data Active Medications Enoxaparin Sodium (Enoxaparin Sodium 40 Mg/0.4 Ml Syringe) 40 mg SUBCUT Q24H COUNT INCLUDES THE [facility] Last Admin: 10/19/22 08:43 Dose: 40 mg Documented By: LEXX Sodium Chloride (Sodium Chloride 0.45 %) 1,000 mls @ 80 mls/hr IVCONT .[id number] COUNT INCLUDES THE [facility] Last Admin: 10/19/22 03:33 Dose: 80 mls/hr Documented By: VINNY Isosorbide Mononitrate (Isosorbide Mononitrate 30 Mg Tab.Er.24h) 30 mg PO DAILY@1700 COUNT INCLUDES THE [facility]; Protocol Last Admin: 10/18/22 17:08 Dose: 30 mg Documented By: LEXX Metoprolol Tartrate (Metoprolol Tartrate 12.5 Mg Halftab) 12.5 mg PO BID COUNT INCLUDES THE [facility]; Protocol Last Admin: 10/19/22 08:43 Dose: 12.5 mg Documented By: LEXX Morphine Sulfate (Morphine Sulfate 2 Mg/Ml Cartridge) 2 mg IVPUSH Q4H PRN; Protocol PRN Reason: moderate pain Last Admin: 10/18/22 10:14 Dose: 2 mg Documented By: NAHED Polyethylene Glycol (Polyethylene Glycol 3350 17 Gm Powd.Pack) 17 gm PO DAILY COUNT INCLUDES THE [facility] Last Admin: 10/19/22 08:43 Dose: 17 gm Documented By: LEXX Senna/Docusate Sodium (Sennosides/Docusate Sodium Tablet) 2 tab PO BID COUNT INCLUDES THE [facility] Last Admin: 10/19/22 08:57 Dose: Not Given Documented By: LEXX Non-Admin Reason: new order Sodium Chloride (0.9 % Sodium Chloride Flush 3 Ml Syringe) 3 ml IVFLUSH QSHIFT COUNT INCLUDES THE [facility] Last Admin: 10/19/22 08:43 Dose: Not Given Documented By: LEXX Non-Admin Reason: IV Running Labs CBC & Chem 7: 10/19/22 05:16 10/19/22 05:16 Labs: Laboratory Results - last 24 hr 10/18/22 10/19/22 10/19/22 14:56 05:16 05:16 MCV 89.7 89.5 MCH 29.5 29.6 MCHC 32.8 33.1 RDW 12.7 12.6 Plt Count 214 198 MPV 10.2 10.7 Absolute Nucleated RBC 0.000 0.000 Nucleated RBC % (auto) 0.0 0.0 Anion Gap 11 L Estim Creat Clear Calc 93.1 Estimated GFR > 60 Random Glucose 75 Fasting Glucose 75 Calcium 8.2 L D Assessment and Plan (1) Small bowel obstruction, partial: Status: Acute Plan d#2 87yo M with 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 Quality Stroke Does the patient have a stroke diagnosis?: No VTE Prior VTE?: No VTE Risk Level:: Medical - moderate - high VTE Device Contraindication: Treatment Not Indicated VTE Drug Contraindication: N/A - Med Ordered
--- NOTE | 2022-10-19 16:03 | MHC.CM.PN ---
PATIENT DID NOT TOLERATE ADVANCE TO SOLID FOODS. NO PLAN FOR DC TODAY CASE MANAGEMENT FOLLOWING
[2022-10-19 16:08] VITALS: BP 139/67; PULSE 63; RESP 18; TEMP 36.4; O2SAT 98
[2022-10-19] MEDS: Isosorbide Mononitrate 30 MG TAB.ER.24H PO (17:19)
[2022-10-19 20:32] VITALS: BP 160/75; PULSE 63; RESP 20; TEMP 36.6; O2SAT 96
[2022-10-19] MEDS: Sennosides/Docusate Sodium TABLET 2 TAB PO (21:29)
[2022-10-19] MEDS: 0.9 % Sodium Chloride Flush 3 ML SYRINGE IVFLUSH (21:31)
[2022-10-20 04:00] VITALS: BP 127/58; PULSE 60; RESP 17; TEMP 36.2; O2SAT 97
[2022-10-20 06:58] VITALS: BP 110/54; PULSE 52; RESP 19; TEMP 36.6; O2SAT 96
[2022-10-20] MEDS: Sennosides/Docusate Sodium TABLET 2 TAB PO (09:25)
[2022-10-20] MEDS: Enoxaparin Sodium 40 MG/0.4 ML SYRINGE SUBCUT (09:25)
[2022-10-20] MEDS: 0.9 % Sodium Chloride Flush 3 ML SYRINGE IVFLUSH (09:26)
[2022-10-20] MEDS: polyethylene glycoL 3350 17 GM POWD.PACK PO (09:26)
[2022-10-20] MEDS: Metoprolol Tartrate 12.5 MG HALFTAB PO (09:26)
--- NOTE | 2022-10-20 10:52 | P.DS_ITS ---
DS: Providers Provider Date of Service: 10/20/22 Date of admission: 10/18/22 03:31 Date of discharge: 10/20/22 Primary care physician: Pro Nunn MD Consults: 10/18/22 03:29 Consult to General Surgery Routine Consulting Provider: Marco A Prado Reason for consultation: partial sbo DS: Diagnosis Discharge Diagnosis (1) Small bowel obstruction, partial: Status: Acute (2) Constipation: Status: Acute DS: Summary Hospital Course Hospital Course: from admission H+P by hospitalist Rk Looney MD, 10/18/22: 87M pmh colorectal cancer s/p resection, now complicated by recurrent SBO, most recently 08/2022, diet controlled DM, prostate ca, HTN, presented with abd pain. patient states pain began on AM of presentation associated with 3 days of constipation, though has passed some small stools and flatus. feels similar to previous SBO. in ED CT showed partial vs early SBO. 87yo M with hx CRC s/p resection admitted with recurrent partial SBO that resolved with bowel rest and IV fluid hydration. Surgery was consulted and no operative intervention was deemed necessary. He was started on bowel regimen for constipation and had daily BMs. He was discharged on stool softeners. Time Spent with Patient Time attestation: Total time managing care of this patient today _35___ minutes. Discharge coordination time: Greater than 30 minutes Quality: Safe Use of Opioids Does Pt have an Active Cancer Diagnosis on the Problem List?: No Quality: Stroke Does the patient have a stroke diagnosis?: No Physical Exam Vital Signs: Vital Signs: Last Vital Signs Temp 97.9 F 10/20/22 06:58 Pulse 52 10/20/22 06:58 Resp 19 10/20/22 06:58 BP 110/54 L 10/20/22 06:58 Pulse Ox 96 10/20/22 06:58 O2 Del Method 10/20/22 06:58 BMI result Body Mass Index 22.8 Gen: in no acute distress HEENT: sclera anicteric, moist mucus membranes Neck: supple Lungs: clear to auscultation bilaterally Heart: regular rate and rhythm, no murmurs Abd: soft, normal bowel sounds, non-tender, non-distended Ext: no edema Skin: warm/well-perfused Neuro: alert and oriented x3, no focal findings Psych: appropriate affect DS: Data Data Completed and Pending Completed studies during hospitalization [Text1]: Laboratory Results WBC 6.2 X10*3/uL (4.8-10.8) 10/19/22 05:16 RBC 4.19 X10*6/uL (4.60-5.80) L 10/19/22 05:16 Hgb 12.4 g/dl (14.0-18.0) L 10/19/22 05:16 Hct 37.5 % (42.0-52.0) L 10/19/22 05:16 MCV 89.5 fL (80.0-98.0) 10/19/22 05:16 MCH 29.6 pg (27.0-33.0) 10/19/22 05:16 MCHC 33.1 g/dl (31.0-36.0) 10/19/22 05:16 RDW 12.6 % (11.0-16.0) 10/19/22 05:16 Plt Count 198 X10*3/uL (160-400) 10/19/22 05:16 MPV 10.7 fL (9.4-12.4) 10/19/22 05:16 Immature Gran % (Auto) 0.4 % (0.0-0.4) 10/18/22 00:56 Neut % (Auto) 75.4 % (45-73) H 10/18/22 00:56 Lymph % (Auto) 17.8 % (20-40) L 10/18/22 00:56 [place] % (Auto) 5.1 % (2-11) 10/18/22 00:56 Eos % (Auto) 1.0 % (0-4) 10/18/22 00:56 Baso % (Auto) 0.3 % (0-2) 10/18/22 00:56 Lymph # (Auto) 2.1 X10*3/uL (1.2-4.9) 10/18/22 00:56 [place] # (Auto) 0.6 X10*3/uL (0.1-1.2) 10/18/22 00:56 Eos # (Auto) 0.1 X10*3/uL (0.0-0.4) 10/18/22 00:56 Baso # (Auto) 0.0 X10*3/uL (0.0-0.2) 10/18/22 00:56 Abs Immat Gran (auto) 0.05 X10*3/uL (0.00-0.03) H 10/18/22 00:56 Absolute Neuts (auto) 8.8 x10*3/uL (2.0-8.3) H 10/18/22 00:56 Absolute Nucleated RBC 0.000 X10*3/uL (0.0-0.012) 10/19/22 05:16 Nucleated RBC % (auto) 0.0 /100WBC (0.0-0.2) 10/19/22 05:16 Sodium 141 mmol/L (135-145) 10/19/22 05:16 Potassium 4.0 mmol/L (3.3-5.1) 10/19/22 05:16 Chloride 114 mmol/L (96-108) H 10/19/22 05:16 Carbon Dioxide 20 mmol/L (22-29) L 10/19/22 05:16 Anion Gap 11 (12-20) L 10/19/22 05:16 BUN 11 mg/dL (9-16) 10/19/22 05:16 Creatinine 0.65 mg/dL (0.5-1.4) 10/19/22 05:16 Estim Creat Clear Calc 93.1 10/19/22 05:16 Estimated GFR > 60 10/19/22 05:16 Random Glucose 75 mg/dL (60-115) 10/19/22 05:16 Fasting Glucose 75 mg/dL (60-99) 10/19/22 05:16 Lactic Acid 1.7 mmol/L (0.5-2.0) 10/18/22 00:56 Calcium 8.2 mg/dL (8.4-10.2) L D 10/19/22 05:16 Total Bilirubin 0.7 mg/dL (0.0-1.0) 10/18/22 00:56 AST 18 U/L (5-37) 10/18/22 00:56 ALT 20 U/L (0-40) 10/18/22 00:56 Alkaline Phosphatase 73 U/L (39-117) 10/18/22 00:56 Total Protein 6.1 g/dL (6.5-8.0) L 10/18/22 00:56 Albumin 3.9 g/dL (3.5-5.0) 10/18/22 00:56 Urine Color Yellow 10/18/22 02:01 Urine Appearance Clear 10/18/22 02:01 Urine pH 8.5 (5.0-9.0) 10/18/22 02:01 Ur Specific [place] 1.015 (1.005-1.025) 10/18/22 02:01 Urine Protein Negative mg/dL (Neg-Trace) 10/18/22 02:01 Urine Glucose (UA) Negative mg/dL (Negative) 10/18/22 02:01 Urine Ketones Negative mg/dL (Negative) 10/18/22 02:01 Urine Blood Negative (Negative) 10/18/22 02:01 Urine Nitrite Negative (Negative) 10/18/22 02:01 Ur Leukocyte Esterase Negative (Negative) 10/18/22 02:01 COVID-19 ([facility]) Negative (Negative) 10/18/22 02:15 COVID-19 Clin Com See Note 10/18/22 02:15 Impressions Abdomen/Pelvis CT 10/18/22 00:46 IMPRESSION: Fluid distention of much of the mid to distal small bowel, with collapsed terminal ileum, raising possibility of a distal small bowel obstruction. However, since there is a significant amount of fluid and stool throughout the colon, if there is a distal small bowel obstruction this is likely partial or early developing in nature. Discharge Plan Discharge Anticipated Discharge Date/Time: 10/20/22 10:49 Patient Disposition: Home, Self-Care Discharge Diagnosis: partial small bowel obstruction constipation Referrals: Po,Pro Adame MD [Primary Care Provider] - 1 Week Discharge Medications: New polyethylene glycol 3350 17 gram Powder In Packet 17 g PO DAILY Qty: 30 0RF Continued isosorbide mononitrate 30 mg tablet extended release 24 hr 30 mg PO DAILY@1700 Qty: 90 3RF Rx Instructions: Takes with dinner metoprolol tartrate 25 mg tablet 12.5 mg PO BID 90 Days Qty: 90 1RF Discharge Orders: Discharge Order (Routine); Ordered 10/20/22 Ordered By: Leonid Medellin Diet: high fibre Activity on Discharge: As tolerated Stand Alone Forms: Patient Portal Discharge page Care Plan Goals: relief of constipation, prevention of bowel obstruction Health Concerns: partial small bowel obstruction constipation Plan of Treatment: stool softeners- Miralax and/or lactulose high-fibre diet, increased fluid intake Please follow up with your primary care doctor within 1 week. Return to the hospital if you experience recurrent or worsening symptoms. Assessment: See Discharge Summary.
--- NOTE | 2022-10-20 11:52 | MHC.CM.PN ---
HOME - SELF CARE RN AWARE OF PLAN
== END 2022-10-20 13:11 | disposition home or self-care (01) | DRG 390 ==
LOC: HO.ED 10-18 02:54 → HO.EDOVER 10-18 03:35 → HO.S3 10-18 13:10
PROVIDERS: Registered Nurse; Admitting Provider Internal Medicine; Emergency Provider Student in an Organized Health Care Education/Training Program; PCP Internal Medicine; Visit Provider Family Medicine
DX: K56.600 Partial intestinal obstruction, unspecified as to cause (principal); E11.9 Type 2 diabetes mellitus without complications; I10 Essential (primary) hypertension; Z66 Do not resuscitate; K59.00 Constipation, unspecified; Z20.822 Contact with and (suspected) exposure to COVID-19; Z87.891 Personal history of nicotine dependence; Z85.46 Personal history of malignant neoplasm of prostate; Z85.038 Personal history of other malignant neoplasm of large intestine; Z88.8 Allergy status to other drugs, medicaments and biological substances; Z79.899 Other long term (current) drug therapy
CPT/HCPCS: 36415; 74176; 80048; 80053; 81003; 83605; 85025; 85027; 87635; 99285; J1650; J2270; J3010

== ENCOUNTER → 2022-11-15 14:06 | Outpatient (BNVA) | payer MEDICARE, OTHER, SELFPAY | PROVIDERS: PCP Internal Medicine; Referring Provider Internal Medicine; Visit Provider Internal Medicine | DX: I25.10 Atherosclerotic heart disease of native coronary artery without angina pectoris (principal); R94.39 Abnormal result of other cardiovascular function study; I10 Essential (primary) hypertension; I95.9 Hypotension, unspecified; E78.5 Hyperlipidemia, unspecified | CPT/HCPCS: 99212 ==

== ENCOUNTER 2022-11-30 22:41 | Inpatient (IN) | payer MEDICARE, OTHER, SELFPAY ==
--- NOTE | ~2022-11-30 | XR_ITS ---
EXAMINATION: XR ABDOMEN KUB CLINICAL INDICATION: Follow up small bowel obstruction. COMPARISON: CT of 10/30/2022 and KUB of 09/30/2022. TECHNIQUE: AP view of the abdomen. FINDINGS: Stool and gas is seen throughout the colon. Gas is seen within multiple loops of small bowel but without dilatation appreciated. The appearance is somewhat improved from CT non destructive testing supervisor image of November 30, 2022. No dilated loops of large or small bowel are evident. No pneumatosis intestinalis appreciated. Splenic artery calcifications are seen as well as iliac and femoral artery calcifications. Patient is status post previous pelvic surgery. 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 There is mild scoliosis at the thoracolumbar junction convex right and in the lower lumbar spine convex left. XR/XR abdomen 1V IMPRESSION: Large stool burden. There is some gaseous distention of multiple loops of small bowel, more prominent than on study of 09/30/2022 and with some improvement from CT study of November 30, 2022 but not pathologically dilated.
--- NOTE | ~2022-11-30 | XR_ITS ---
EXAMINATION: XR CHEST CLINICAL INFORMATION: Question pneumonia COMPARISON: 09/15/2022 TECHNIQUE: Frontal view of the chest was obtained. FINDINGS: Lung volumes are symmetric. Redemonstrated calcified pleural plaques. No focal consolidation is seen. No evidence of pneumothorax, pleural effusion, or pulmonary edema. Cardiac size is within normal limits. Calcification is present at the aortic arch. No acute osseous findings are seen. XR/XR chest 1V IMPRESSION: No focal consolidation identified.
--- NOTE | ~2022-11-30 | XR_ITS ---
EXAMINATION: XR KNEE, RIGHT CLINICAL INFORMATION: Knee pain COMPARISON: None TECHNIQUE: Two views of the right knee. FINDINGS: Alignment is anatomic. There is severe joint space narrowing of the lateral and patellofemoral compartments with associated spurring. Mild to moderate narrowing of the medial compartment. No acute fracture is seen. Small effusion is noted. Scattered vascular calcifications are present. XR/XR knee RT 2V IMPRESSION: No acute findings identified. Small effusion. Severe degenerative changes.
--- NOTE | ~2022-11-30 | CT_ITS ---
EXAMINATION: CT ABDOMEN AND PELVIS WITHOUT CONTRAST CLINICAL INFORMATION: Small bowel obstruction. COMPARISON: CT abdomen/pelvis 10/18/2022. TECHNIQUE: Multidetector volumetric imaging was performed from the superior aspect of the liver through the pubic symphysis. Sagittal and coronal reformatted images were obtained on the technologist's workstation. This CT examination was performed using dose optimization techniques as appropriate, variously including the following: *Automated exposure control *Adjustment of mA and/or kV according to patient size (this includes techniques or standardized protocols for targeted exams where dose is matched to indication/reason for exam; i.e. extremities or head) *Use of iterative reconstruction technique DLP: 648 mGy-cm FINDINGS: LUNG BASES: Sub-3 mm pulmonary nodules are not significantly changed compared to 10/18/2022, for instance perifissural nodules along the right major fissure (4:17 and 4:25). Redemonstration of calcified pleural plaque/nodules. LIVER, GALLBLADDER, AND BILIARY TREE: Limited noncontrast examination of the liver without discrete focal liver lesion. Normal appearance of the gallbladder. No biliary ductal dilatation. PANCREAS: Limited noncontrast examination with diffuse atrophy. No peripancreatic free fluid or fat stranding. SPLEEN: Limited noncontrast examination, unremarkable. ADRENAL GLANDS: Stable enlargement of the adrenal glands. KIDNEYS AND URETERS: Limited noncontrast examination. No hydronephrosis or nephrolithiasis. Redemonstration of Bosniak 1 cyst lateral mid to lower right kidney for which no imaging follow-up is recommended. BLADDER: Underdistended limiting its evaluation. GASTROINTESTINAL TRACT: Dilated stomach and small bowel with air-fluid levels, transitioning at multiple sites in the right lower quadrant, suggestive of a small bowel obstruction. The more apparent transition point is noted on coronal image 39 series 5. The colon is not entirely decompressed with mild to moderate stool burden. No pericolonic inflammatory changes. There is some diffuse mesenteric fatty haziness with scattered prominent mesenteric lymph nodes. No pneumatosis or free air. No drainable abdominal collection. ABDOMINAL WALL: Midline surgical scarring with architectural distortion. Stable small fat-containing abdominal wall hernias. Unchanged small fat-containing left greater than right inguinal hernias. LYMPH NODES: Periportal lymphadenopathy, unchanged. An enlarged celiac lymph node measuring 1.2 cm (3:25) is unchanged since 2021. Scattered prominent mesenteric and retroperitoneal lymph nodes, are also not convincingly changed. VASCULAR: Extensive atherosclerotic disease. The abdominal aorta is of normal diameter. PELVIC VISCERA: Trace free fluid. Unchanged mild mesorectal and presacral fat stranding. Suspect prostatectomy. OSSEOUS STRUCTURES: No acute or aggressive appearing osseous abnormalities. Degenerative changes of the spine. Stable increased sclerosis of the femoral heads which could be seen with avascular necrosis. CT/CT abdomen pelvis wo IV con IMPRESSION: 1. Dilated stomach and small bowel with air-fluid levels, transitioning at multiple sites in the right lower quadrant, suggestive of a small bowel obstruction. 2. Celiac and periportal lymphadenopathy, stable. 3. Fatty haziness of the mesentery and presacral region with trace amount of free fluid layering the pelvis, not significantly changed. 4. Stable sub-3 mm pulmonary nodules with calcified pleural plaques. Assuming patient has no history of malignancy, recommend follow-up per Fleischner Society recommendations. According to the UPDATED 2017 Fleischner Society recommendations, the advised followup imaging for solid nodules < 6 mm is: LOW RISK PATIENT: No routine follow up. HIGH RISK PATIENT: Optional CT at 12 months.
[2022-11-30 22:52] VITALS: BP 134/86; BP 150/76; PULSE 68; PULSE 72; RESP 16; TEMP 36.9; O2SAT 96; O2SAT 97; BMI 24.6
--- NOTE | 2022-11-30 23:39 | ECG_ITS ---
Test Reason : GI OBSTRUCTION Blood Pressure : / mmHG Vent. Rate : 073 BPM Atrial Rate : 073 BPM P-R Int : 226 ms QRS Dur : 072 ms QT Int : 394 ms P-R-T Axes : 036 028 068 degrees QTc Int : 434 ms Sinus rhythm with 1st degree A-V block Nonspecific ST abnormality Abnormal ECG When compared with ECG of 15-SEP-2022 00:26, MS interval has increased Referred By: Heather Delacruz Electronically Signed By:Jairo Andrew
[2022-12-01] VITALS (9 sets, daily range): BP systolic 93–154; BP diastolic 56–83; PULSE 96–105; RESP 12–23; TEMP 36.8–37.9; O2SAT 91–97
[2022-12-01 00:09] LABS: MANUAL DIFF FLAG NO
[2022-12-01 00:10] LABS: Basophils Absolute Auto 0.1 X10*3/uL (0.0-0.2); Basophils Percent Auto 0.3 % (0-2); Eosinophils Absolute Auto 0.1 X10*3/uL (0.0-0.4); Eosinophils Percent Auto 0.5 % (0-4); Hematocrit 50.2 % (42.0-52.0); Hemoglobin 17.1 g/dl (14.0-18.0); Imm Gran Pct Auto 0.5 % (0.0-0.4); Lymphocytes Absolute Auto 1.6 X10*3/uL (1.2-4.9); Lymphocytes Percent Auto 8.6 % (20-40); Mean Corpuscular HGB Conc 34.1 g/dl (31.0-36.0); Mean Corpuscular Hemoglobin 29.4 pg (27.0-33.0); Mean Corpuscular Volume 86.4 fL (80.0-98.0); Mean Platelet Volume 10.1 fL (9.4-12.4); Monocytes Absolute Auto 0.6 X10*3/uL (0.1-1.2); Monocytes Percent Auto 3.3 % (2-11); Neutrophils Absolute Auto 16.3 x10*3/uL (2.0-8.3); Neutrophils Percent Auto 86.8 % (45-73); Platelet Count 250 X10*3/uL (160-400); Red Blood Count 5.81 X10*6/uL (4.60-5.80); Red Cell Distribution Width 12.8 % (11.0-16.0); White Blood Count 18.8 X10*3/uL (4.8-10.8)
[2022-12-01 00:22] LABS: Lactic Acid 1.7 mmol/L (0.5-2.0)
[2022-12-01] MEDS: Morphine Sulfate 4 MG/ML CARTRIDGE IVPUSH (00:23)
[2022-12-01] MEDS: 0.9 % Sodium Chloride 1,000 ML 999 ML IVCONT (00:23)
--- NOTE | 2022-12-01 00:26 | ED_ITS ---
HPI - Abdominal Pain General Chief Complaint: Abdominal Pain Stated Complaint: lower abd pain Time Seen by Provider: 11/30/22 22:56 Source: patient Mode of arrival: ambulatory Limitations: no limitations History of Present Illness HPI narrative: Patient comes to the emergency room complaining of abdominal pain that started earlier this morning. Patient states that he has had multiple bowel obstructions and it feels the same. Patient complaining of nausea, no vomiting or diarrhea. Related Data Previous Rx's Medication Instructions Recorded metoprolol tartrate 25 mg tablet 12.5 mg PO BID 90 days #90 tabs 04/22/22 rosuvastatin 10 mg tablet (Crestor) 10 mg PO DAILY #90 tabs 11/15/22 Allergies Allergy/AdvReac Type Severity Reaction Status Date / Time diphenhydramine AdvReac Intermediate Hallucinati Verified 11/15/22 14:36 [From Tereza] ons Review of Systems Review of Systems Constitutional : No Weight loss, No Fever, No Chills, No Night Sweats, No Fatigue, No Malaise ENT/Mouth : No Hearing loss, No Ear Pain, No Nasal Congestion, No Sinus Pain, No Hoarseness, No sore throat, No Rhinorrhea, No Swallowing Difficulty Eyes: No Eye Pain, No Swelling, No Redness, No Foreign Body, No Discharge, No Vision Changes Cardiovascular : No Chest Pain, No SOB, No Dyspnea on Exertion, No Orthopnea, No Edema, No Palpitations Respiratory : No Cough, No Sputum, No Wheezing, No Smoke Exposure, No Dyspnea Gastrointestinal : No Nausea, No Vomiting, No Diarrhea, No Constipation, complaining of abdominal pain, distension Genitourinary : no irregular bleeding, No Dysuria, No Urinary Frequency, No Hematuria, No Urinary Incontinence, No Urgency, No Flank Pain, No Urinary Flow Changes, No Hesitancy Musculoskeletal : No joint pain, No Myalgias, No Joint Swelling Skin : No Skin Lesions, No rash Neuro : No Weakness, No Numbness, No Paresthesias, No Loss of Consciousness, No Dizziness, No Headache Psych : No Anxiety/Panic, No Depression, No SI/HI/AH/VH, No Social Issues, Heme/Lymph: No Bruising, No Bleeding,No Lymphadenopathy Endocrine : No Polyuria, No Polydipsia, No Temperature Intolerance PMFSH Past Medical History Medical History Bladder neck contracture BPH (benign prostatic hyperplasia) Colon cancer Constipation Coronary artery disease Dysuria Erectile dysfunction Essential hypertension GERD (gastroesophageal reflux disease) Hematuria Hyperlipidemia, unspecified Obstructive sleep apnea Overweight (BMI 25.0-29.9) Peripheral vascular disease Prostate cancer Rectal cancer SBO (small bowel obstruction) Small bowel obstruction Type 2 diabetes mellitus with hyperglycemia Urinary incontinence Surgical History History of appendectomy History of bladder surgery (~01/04/18) History of carpal tunnel release History of colectomy History of exploratory laparotomy History of prostate surgery (~2016) Family History Family History Father Pancreatic cancer Mother No problems noted. 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 , grand daughter lives with them as well) Do you presently have visiting nurse or other home services: No Alcohol intake: current Alcohol intake frequency: holidays/special occasions only Patient Tobacco Use Status: Former Tobacco user Quit Date: years ago Tobacco use type: Cigar Smoked in Last 30 Days: No e-Cigarette/Vaping Use: Never Used Second Hand Smoke Exposure: No Use of substances other than those prescribed or required for medical reasons: No Advance Directives: Yes Advance Directives on File: Yes Advance Directives Date on File: 09/29/20 service: Yes ([employer]) Current occupational status: retired Cognitive needs: Yes (cane) Hearing needs: Yes Vision needs: Yes Physical Exam ED Vital Signs: Vital Signs - 24 hr 11/30/22 22:52 12/01/22 01:27 Temperature 98.4 F Pulse Rate 68 102 H Respiratory Rate 16 23 H Blood Pressure 150/76 H Pulse Oximetry 96 97 Oxygen Delivery Method Room Air Room Air BMI result Body Mass Index 24.6 Const Other: Appearance: Alert. Oriented X3. No acute distress. Eyes: Pupils equal, round and reactive to light. ENT: Pharynx normal. Neck: Normal inspection. Neck supple. No lymph nodes noted. No crepitus CVS: Normal heart rate and rhythm. Pulses normal. Normal S1 and S2 Respiratory: No respiratory distress. Breath sounds normal. No Wheezing. No rales Abdomen: Soft , distended, tenderness to palpation in all quadrants Skin: Skin warm and dry. Normal skin color. Normal skin turgor. Extremities: No lower extremity edema. No Lacerations. No Rash Neuro: Oriented X 3. No motor deficit. No sensory deficit. Moving all extremities. No slurred speech. CN 2 through 12 grossly intact Psych: calm, cooperative, normal affect Course Course Course Narrative: - Medical Decision Making Medical Decision Making [facility] Narrative: -patient has a white blood cell count of 18.8. Likely reactive leukocytosis. Urine x-rays negative -patient absolutely refused NG tube. Differential Diagnosis Differential Diagnoses: The differential diagnosis associated with the presentation includes (Small-bowel obstruction, diverticulitis, diverticulosis) Admission/Observation Consideration of admission/observation: Escalation of care including admission/observation considered Consult Healthcare Provider Management of the patient was discussed with: Hospitalist (dr betancourt agreed to admit the pt, unlikely to need surgical intervention, surgery likely to be consult in the morning) Lab Data MDM Lab Attestation statement: I reviewed the patient's lab results. 12/01/22 00:02 12/01/22 00:02 Labs: Lab Results 12/01/22 12/01/22 12/01/22 Range/Units 00:02 00:02 00:02 WBC 18.8 H (4.8-10.8) X10*3/uL RBC 5.81 H D (4.60-5.80) X10*6/uL Hgb 17.1 D (14.0-18.0) g/dl Hct 50.2 D (42.0-52.0) % MCV 86.4 (80.0-98.0) fL MCH 29.4 (27.0-33.0) pg MCHC 34.1 (31.0-36.0) g/dl RDW 12.8 (11.0-16.0) % Plt Count 250 D (160-400) X10*3/uL MPV 10.1 (9.4-12.4) fL Immature Gran % (Auto) 0.5 H (0.0-0.4) % Neut % (Auto) 86.8 H (45-73) % Lymph % (Auto) 8.6 L (20-40) % [place] % (Auto) 3.3 (2-11) % Eos % (Auto) 0.5 (0-4) % Baso % (Auto) 0.3 (0-2) % Lymph # (Auto) 1.6 (1.2-4.9) X10*3/uL [place] # (Auto) 0.6 (0.1-1.2) X10*3/uL Eos # (Auto) 0.1 (0.0-0.4) X10*3/uL Baso # (Auto) 0.1 (0.0-0.2) X10*3/uL Abs Immat Gran (auto) 0.10 H (0.00-0.03) X10*3/uL Absolute Neuts (auto) 16.3 H (2.0-8.3) x10*3/uL Absolute Nucleated RBC 0.000 (0.0-0.012) X10*3/uL Nucleated RBC % (auto) 0.0 (0.0-0.2) /100WBC Sodium 140 (135-145) mmol/L Potassium 4.7 (3.3-5.1) mmol/L Chloride 105 (96-108) mmol/L Carbon Dioxide 25 (22-29) mmol/L Anion Gap 15 (12-20) BUN 16 (9-16) mg/dL Creatinine 0.88 (0.5-1.4) mg/dL Estim Creat Clear Calc 70.0 Estimated GFR > 60 Random Glucose 158 H (60-115) mg/dL Lactic Acid 1.7 (0.5-2.0) mmol/L Calcium 9.5 D (8.4-10.2) mg/dL Total Bilirubin 0.7 (0.0-1.0) mg/dL Direct Bilirubin 0.2 (0.0-0.5) mg/dL AST 17 (5-37) U/L ALT 14 (0-40) U/L Alkaline Phosphatase 98 (39-117) U/L Total Protein 6.9 (6.5-8.0) g/dL Albumin 4.3 (3.5-5.0) g/dL Urine Color Urine Appearance Urine pH (5.0-9.0) Ur Specific [place] (1.005-1.025) Urine Protein (Neg-Trace) mg/dL Urine Glucose (UA) (Negative) mg/dL Urine Ketones (Negative) mg/dL Urine Blood (Negative) Urine Nitrite (Negative) Ur Leukocyte Esterase (Negative) Urine RBC (0-2) /HPF Urine WBC (0-5) /HPF Ur Squamous Epith Cells (0-2) /HPF Urine Bacteria (None Seen) Hyaline Casts (0-2) /LPF COVID-19 ([facility]) (Negative) COVID-19 Clin Com 12/01/22 12/01/22 Range/Units 00:02 01:42 WBC (4.8-10.8) X10*3/uL RBC (4.60-5.80) X10*6/uL Hgb (14.0-18.0) g/dl Hct (42.0-52.0) % MCV (80.0-98.0) fL MCH (27.0-33.0) pg MCHC (31.0-36.0) g/dl RDW (11.0-16.0) % Plt Count (160-400) X10*3/uL MPV (9.4-12.4) fL Immature Gran % (Auto) (0.0-0.4) % Neut % (Auto) (45-73) % Lymph % (Auto) (20-40) % [place] % (Auto) (2-11) % Eos % (Auto) (0-4) % Baso % (Auto) (0-2) % Lymph # (Auto) (1.2-4.9) X10*3/uL [place] # (Auto) (0.1-1.2) X10*3/uL Eos # (Auto) (0.0-0.4) X10*3/uL Baso # (Auto) (0.0-0.2) X10*3/uL Abs Immat Gran (auto) (0.00-0.03) X10*3/uL Absolute Neuts (auto) (2.0-8.3) x10*3/uL Absolute Nucleated RBC (0.0-0.012) X10*3/uL Nucleated RBC % (auto) (0.0-0.2) /100WBC Sodium (135-145) mmol/L Potassium (3.3-5.1) mmol/L Chloride (96-108) mmol/L Carbon Dioxide (22-29) mmol/L Anion Gap (12-20) BUN (9-16) mg/dL Creatinine (0.5-1.4) mg/dL Estim Creat Clear Calc Estimated GFR Random Glucose (60-115) mg/dL Lactic Acid (0.5-2.0) mmol/L Calcium (8.4-10.2) mg/dL Total Bilirubin (0.0-1.0) mg/dL Direct Bilirubin (0.0-0.5) mg/dL AST (5-37) U/L ALT (0-40) U/L Alkaline Phosphatase (39-117) U/L Total Protein (6.5-8.0) g/dL Albumin (3.5-5.0) g/dL Urine Color Yellow Urine Appearance Clear Urine pH 7.5 (5.0-9.0) Ur Specific [place] 1.025 (1.005-1.025) Urine Protein Trace (Neg-Trace) mg/dL Urine Glucose (UA) Negative (Negative) mg/dL Urine Ketones 15 (Negative) mg/dL Urine Blood Negative (Negative) Urine Nitrite Negative (Negative) Ur Leukocyte Esterase Trace H (Negative) Urine RBC 3-5 H (0-2) /HPF Urine WBC 0-5 (0-5) /HPF Ur Squamous Epith Cells 0-2 (0-2) /HPF Urine Bacteria None Seen (None Seen) Hyaline Casts 0-2 (0-2) /LPF COVID-19 ([facility]) Negative (Negative) COVID-19 Clin Com See Note Independent Interpretation I performed an independent interpretation of an: CT Scan (CT scan my interpretation: Positive air-fluid levels, distended stomach) Radiology Impression Discussion of test interpretation with radiology: I have reviewed the radiologist's reading. Radiologist Impression: FINDINGS: Lung volumes are symmetric. Redemonstrated calcified pleural plaques. No focal consolidation is seen. No evidence of pneumothorax, pleural effusion, or pulmonary edema. Cardiac size is within normal limits. Calcification is present at the aortic arch. No acute osseous findings are seen. XR/XR chest 1V IMPRESSION: No focal consolidation identified. External Record Review External record reviewed: Inpatient record (I reviewed patient's records from surgery. For patient's last small-bowel obstruction, patient did not require surgery) Medications Administered Discontinued Medications Generic Name Dose Route Start Last Admin Trade Name Freq PRN Reason Stop Dose Admin Sodium Chloride 1,000 mls @ 999 mls/hr 11/30/22 23:39 12/01/22 01:28 Ns IVCONT 12/01/22 00:39 Infused .Q1H1M ONE Infusion Morphine Sulfate 4 mg 11/30/22 23:41 12/01/22 00:23 Morphine Sulfate 4 Mg/Ml Cartridge IVPUSH 11/30/22 23:42 4 mg ONCE ONE Administration Protocol Ondansetron HCl 4 mg 12/01/22 00:45 12/01/22 00:50 Ondansetron Hcl 4 Mg/2 Ml Vial IVPUSH 12/01/22 00:46 4 mg ONCE ONE Administration Critical Care Time Critical Care Time Critical Care Time: Yes Total Critical Care Time: 60 Attestation: I have personally provided critical care time. Time includes review of lab data, radiology results, discussion with consultants, and monitoring for potential decompensation. Intervention performed as documented. Discharge Plan Discharge Clinical Impression: Small bowel obstruction Patient Disposition: Admitted As Inpatient
[2022-12-01 00:28] LABS: Alanine Aminotransferase 14 U/L (0-40); Albumin Level 4.3 g/dL (3.5-5.0); Alkaline Phosphatase 98 U/L (39-117); Anion Gap 15 (12-20); Aspartate Amino Transferase 17 U/L (5-37); Bilirubin Direct 0.2 mg/dL (0.0-0.5); Bilirubin Total 0.7 mg/dL (0.0-1.0); Blood Urea Nitrogen 16 mg/dL (9-16); Calcium 9.5 mg/dL (8.4-10.2); Carbon Dioxide 25 mmol/L (22-29); Chloride 105 mmol/L (96-108); Estimated Glomerular Filt Rate > 60; Glucose Random 158 mg/dL (60-115); Potassium 4.7 mmol/L (3.3-5.1); Sodium 140 mmol/L (135-145); Total Protein 6.9 g/dL (6.5-8.0)
[2022-12-01 00:35] LABS: COVID-19 Test Negative (Negative); IDNOW Serial# 6674DD1D
[2022-12-01] MEDS: ondansetron HCL 4 MG/2 ML VIAL IVPUSH ×2 (00:50→11:30)
--- NOTE | 2022-12-01 01:29 | PC.NURSE ---
Pt refusing NG tube, aware
[2022-12-01 01:47] LABS: Appearance Urine Clear; Color Urine Yellow; Glucose Urine UA Negative (Negative); Leukocyte Esterase Urine Trace (Negative); Nitrite Urine Negative (Negative); PH 7.5 (5.0-9.0); Specific Gravity - Urine 1.025 (1.005-1.025); UMIC TRIGGER UACC YES; Urine Blood Negative (Negative); Urine Ketones 15 mg/dL (Negative); Urine Protein Trace mg/dL (Neg-Trace)
--- NOTE | 2022-12-01 01:50 | PC.NURSE ---
pt vomited copious amount of vomit 4 times now, MD is aware. this RN reminded pt option to place NG, pt still declines NG tube at this time. Vomit is brown and liquid
[2022-12-01 01:52] LABS: Bacteria Urine None Seen (None Seen); Hyaline Casts Urine 0-2 /LPF (0-2); Squamous Epithelial Cell Urine 0-2 /HPF (0-2); WBC Urine 0-5 /HPF (0-5)
--- NOTE | 2022-12-01 02:32 | PM.IMHP ---
History of Present Illness Date of Service: 12/01/22 Chief Complaint: Abdominal Pain This is a 87-year-old male with pertinent history of colorectal cancer status post resection, complicated by recurrent small-bowel obstruction, diet-controlled diabetes mellitus, prostate cancer, essential hypertension presents to the emergency department for evaluation of abdominal discomfort. Patient states abdominal discomfort started 1 day prior to presentation, constant and without any relieving factors. Also has been having had nausea and nonbloody emesis. He has had constipation without any bowel movement. Able to pass gas. Feels similar to previous small-bowel obstruction. He denies fever, chills, chest discomfort, palpitations, shortness of breath, changes in urinary habits. In the emergency department, imaging with small-bowel obstruction Review of Systems Constitutional: Constitutional: Reports no additional constitutional complaints Cardiovascular: Cardiovascular: Reports no additional cardiovascular complaints Respiratory: Respiratory: Reports no additional respiratory complaints Gastrointestinal: Gastrointestinal: Reports abdominal pain, Reports nausea and Reports vomiting PMFSH Medical History Bladder neck contracture BPH (benign prostatic hyperplasia) Colon cancer Constipation Coronary artery disease Dysuria Erectile dysfunction Essential hypertension GERD (gastroesophageal reflux disease) Hematuria Hyperlipidemia, unspecified Obstructive sleep apnea Overweight (BMI 25.0-29.9) Peripheral vascular disease Prostate cancer Rectal cancer SBO (small bowel obstruction) Small bowel obstruction Type 2 diabetes mellitus with hyperglycemia Urinary incontinence Family History Father Pancreatic cancer Mother No problems noted. 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 , grand daughter lives with them as well) Do you presently have visiting nurse or other home services: No Alcohol intake: current Alcohol intake frequency: holidays/special occasions only Patient Tobacco Use Status: Former Tobacco user Quit Date: years ago Tobacco use type: Cigar Smoked in Last 30 Days: No e-Cigarette/Vaping Use: Never Used Second Hand Smoke Exposure: No Use of substances other than those prescribed or required for medical reasons: No Advance Directives: Yes Advance Directives on File: Yes Advance Directives Date on File: 09/29/20 service: Yes ([employer]) Current occupational status: retired Cognitive needs: Yes (cane) Hearing needs: Yes Vision needs: Yes Meds Allergies Allergy/AdvReac Type Severity Reaction Status Date / Time diphenhydramine AdvReac Intermediate Hallucinati Verified 11/15/22 14:36 [From Benadryl] ons Active Medications: Current Medications Acetaminophen (Acetaminophen Supp 650 Mg Supp.Rect) 650 mg FL Q6H PRN PRN Reason: Pain, Mild (Pain Scale 1-3) Ondansetron HCl (Ondansetron Hcl 4 Mg/2 Ml Vial) 4 mg IVPUSH Q8H PRN PRN Reason: Nausea and Vomiting Sodium Chloride (0.9 % Sodium Chloride Flush 3 Ml Syringe) 3 ml IVFLUSH QSHIFT [facility] Physical Exam Vital Signs and Narrative: Vital Signs: Last Vital Signs Temp 98.4 F 11/30/22 22:52 Pulse 102 H 12/01/22 01:27 Resp 23 H 12/01/22 01:27 BP 150/76 H 11/30/22 22:52 Pulse Ox 97 12/01/22 01:27 O2 Del Method 12/01/22 01:27 BMI result Body Mass Index 24.6 Elderly male lying in bed in no distress Neck supple, no JVD Regular rate and rhythm, S1-S2 heard Regular breath sounds bilaterally, no wheezing or crackles appreciated Abdomen mild tenderness with palpation, distended, no guarding, no rigidity, no rebound tenderness Patient is awake, alert and oriented to self, place, time and person ; no focal motor deficit Psych: Normal mood No pedal edema Results Labs 12/01/22 00:02 12/01/22 00:02 Labs: Laboratory Results - last 24 hr 12/01/22 12/01/22 12/01/22 00:02 00:02 00:02 MCV 86.4 MCH 29.4 MCHC 34.1 RDW 12.8 Plt Count 250 D MPV 10.1 Immature Gran % (Auto) 0.5 H Neut % (Auto) 86.8 H Lymph % (Auto) 8.6 L [place] % (Auto) 3.3 Eos % (Auto) 0.5 Baso % (Auto) 0.3 Lymph # (Auto) 1.6 [place] # (Auto) 0.6 Eos # (Auto) 0.1 Baso # (Auto) 0.1 Abs Immat Gran (auto) 0.10 H Absolute Neuts (auto) 16.3 H Absolute Nucleated RBC 0.000 Nucleated RBC % (auto) 0.0 Anion Gap 15 Estim Creat Clear Calc 70.0 Estimated GFR > 60 Random Glucose 158 H Lactic Acid 1.7 Calcium 9.5 D Total Bilirubin 0.7 Direct Bilirubin 0.2 AST 17 ALT 14 Alkaline Phosphatase 98 Total Protein 6.9 Albumin 4.3 Urine Color Urine Appearance Urine pH Ur Specific [place] Urine Protein Urine Glucose (UA) Urine Ketones Urine Blood Urine Nitrite Ur Leukocyte Esterase Urine RBC Urine WBC Ur Squamous Epith Cells Urine Bacteria Hyaline Casts COVID-19 ([facility]) COVID-19 [employer] Com 12/01/22 12/01/22 00:02 01:42 MCV MCH MCHC RDW Plt Count MPV Immature Gran % (Auto) Neut % (Auto) Lymph % (Auto) [place] % (Auto) Eos % (Auto) Baso % (Auto) Lymph # (Auto) [place] # (Auto) Eos # (Auto) Baso # (Auto) Abs Immat Gran (auto) Absolute Neuts (auto) Absolute Nucleated RBC Nucleated RBC % (auto) Anion Gap Estim Creat Clear Calc Estimated GFR Random Glucose Lactic Acid Calcium Total Bilirubin Direct Bilirubin AST ALT Alkaline Phosphatase Total Protein Albumin Urine Color Yellow Urine Appearance Clear Urine pH 7.5 Ur Specific [place] 1.025 Urine Protein Trace Urine Glucose (UA) Negative Urine Ketones 15 Urine Blood Negative Urine Nitrite Negative Ur Leukocyte Esterase Trace H Urine RBC 3-5 H Urine WBC 0-5 Ur Squamous Epith Cells 0-2 Urine Bacteria None Seen Hyaline Casts 0-2 COVID-19 ([facility]) Negative COVID-19 [facility] Com See Note Imaging Radiologist's Impressions: Impressions Abdomen/Pelvis CT 11/30/22 23:51 IMPRESSION: 1. Dilated stomach and small bowel with air-fluid levels, transitioning at multiple sites in the right lower quadrant, suggestive of a small bowel obstruction. 2. Celiac and periportal lymphadenopathy, stable. 3. Fatty haziness of the mesentery and presacral region with trace amount of free fluid layering the pelvis, not significantly changed. 4. Stable sub-3 mm pulmonary nodules with calcified pleural plaques. Assuming patient has no history of malignancy, recommend follow-up per Fleischner Society recommendations. According to the UPDATED 2017 Fleischner Society recommendations, the advised followup imaging for solid nodules < 6 mm is: LOW RISK PATIENT: No routine follow up. HIGH RISK PATIENT: Optional CT at 12 months. Chest X-Ray 12/01/22 01:18 IMPRESSION: No focal consolidation identified. Knee X-Ray 12/01/22 02:04 IMPRESSION: No acute findings identified. Small effusion. Severe degenerative changes. Assessment and Plan (1) Small bowel obstruction: Status: Acute Plan This is a 87-year-old male with pertinent history of colorectal cancer status post resection, complicated by recurrent small-bowel obstruction, diet-controlled diabetes mellitus, prostate cancer, essential hypertension presents to the emergency department for evaluation of abdominal discomfort. #. Small-bowel obstruction: Will consult General surgery. Keep patient NPO. Resuscitated with IV crystalloids. Refused NG tube #. Reactive leukocytosis: No concern for bacterial infection at the time of admission. Monitor #. Essential hypertension: Continue home antihypertensives #. Diet controlled diabetes mellitus: Monitor #. Prostate cancer: Outpatient follow-up with Med rec pending DVT prophylaxis: Mechanical. Lovenox until surgical evaluation NPO DNR/DNI Admit as inpatient and will require two night minimum hospital stay for management of SBO, not tolerating p.o. Specialist consult pending Time Spent With Patient Time: Total time managing care of this patient today ____ minutes. Quality Stroke Does the patient have a stroke diagnosis?: No VTE Prior VTE?: No VTE Risk Level:: Medical - moderate - high VTE Device Contraindication: N/A - Device Ordered VTE Drug Contraindication: Treatment Not Indicated
--- NOTE | 2022-12-01 03:17 | PC.NURSE ---
Pt sleeping at this time, pt has not vomited since last nursing note. respirations are even and unlabored, no apparent distress, report given to TYLOR Ashraf
--- NOTE | 2022-12-01 06:30 | PC.NURSE ---
Dr. Betancourt notified of elevated temp 100.2. Per MD administer Tylenol suppository and continue to monitor.
[2022-12-01] MEDS: Acetaminophen Supp 650 MG SUPP.RECT PR (06:33)
[2022-12-01] MEDS: Morphine Sulfate 2 MG/ML CARTRIDGE IVPUSH ×3 (06:51→16:16)
[2022-12-01 07:05] LABS: MANUAL DIFF FLAG NO
[2022-12-01 07:06] LABS: Basophils Percent Auto 0.2 % (0-2); Hematocrit 42.1 % (42.0-52.0); Hemoglobin 14.2 g/dl (14.0-18.0); Imm Gran Abs Auto 0.06 X10*3/uL (0.00-0.03); Imm Gran Pct Auto 0.4 % (0.0-0.4); Lymphocytes Absolute Auto 1.2 X10*3/uL (1.2-4.9); Lymphocytes Percent Auto 7.4 % (20-40); Mean Corpuscular HGB Conc 33.7 g/dl (31.0-36.0); Mean Corpuscular Hemoglobin 29.3 pg (27.0-33.0); Mean Corpuscular Volume 86.8 fL (80.0-98.0); Mean Platelet Volume 10.2 fL (9.4-12.4); Monocytes Absolute Auto 1.1 X10*3/uL (0.1-1.2); Monocytes Percent Auto 7.1 % (2-11); Neutrophils Absolute Auto 13.5 x10*3/uL (2.0-8.3); Neutrophils Percent Auto 84.9 % (45-73); Platelet Count 227 X10*3/uL (160-400); Red Blood Count 4.85 X10*6/uL (4.60-5.80); Red Cell Distribution Width 12.9 % (11.0-16.0); White Blood Count 15.9 X10*3/uL (4.8-10.8)
[2022-12-01 07:30] LABS: Anion Gap 14 (12-20); Blood Urea Nitrogen 22 mg/dL (9-16); Carbon Dioxide 23 mmol/L (22-29); Chloride 109 mmol/L (96-108); Creatinine Clr Calc Pharmacy 62.2; Estimated Glomerular Filt Rate > 60; Glucose Random 206 mg/dL (60-115); Potassium 4.3 mmol/L (3.3-5.1); Sodium 142 mmol/L (135-145)
--- NOTE | 2022-12-01 07:30 | PM.CNGS ---
History of Present Illness Consult details Consult date: 12/01/22 Reason for consult: abdominal pain Requesting physician: Kamari Betancourt Narrative: 87-year-old male patient well known to service with prior history of colorectal cancer and previous colectomy complicated by recurrence small-bowel obstructions. His most recent admission for small-bowel obstruction was August 2022. The episodes generally resolve with non operative measures including bowel rest and fluid hydration. The current episode began Monday when he developed constipation, increased abdominal distension and abdominal pain. His last bowel movement was on Monday and was fairly normal. He takes regular bowel meds which have not helped. He reports nausea vomiting. He has been able to pass gas. Denies fever, chills, or other systemic symptoms. He has been admitted to the medical service for further management. Workup in the emergency department confirm small-bowel obstruction. Review of Systems Constitutional: Constitutional: Reports anorexia and Reports poor appetite Cardiovascular: Cardiovascular: Denies chest pain, Denies chest pain at rest, Reports rapid heart rate and Denies dyspnea on exertion Respiratory: Respiratory: Denies chest congestion, Denies cough and Denies dyspnea on exertion Gastrointestinal: Gastrointestinal: Reports abdominal pain, Reports bloating, Reports constipation, Denies diarrhea and Denies hematemesis PMFSH Past Medical History Medical History Bladder neck contracture BPH (benign prostatic hyperplasia) Colon cancer Constipation Coronary artery disease Dysuria Erectile dysfunction Essential hypertension GERD (gastroesophageal reflux disease) Hematuria Hyperlipidemia, unspecified Obstructive sleep apnea Overweight (BMI 25.0-29.9) Peripheral vascular disease Prostate cancer Rectal cancer SBO (small bowel obstruction) Small bowel obstruction Type 2 diabetes mellitus with hyperglycemia Urinary incontinence Family History Family History Father Pancreatic cancer Mother No problems noted. Brother Liver cancer Surgical History Surgical History History of appendectomy History of bladder surgery (~01/04/18) History of carpal tunnel release History of colectomy History of exploratory laparotomy History of prostate surgery (~2016) Social History Social History Household Members: Family Housing: House Are you a primary healthcare translator to a significant other at home: Yes (healthcare translator for , grand daughter lives with them as well) Do you presently have visiting nurse or other home services: No Alcohol intake: current Alcohol intake frequency: holidays/special occasions only Patient Tobacco Use Status: Former Tobacco user Quit Date: years ago Tobacco use type: Cigar Smoked in Last 30 Days: No e-Cigarette/Vaping Use: Never Used Second Hand Smoke Exposure: No Use of substances other than those prescribed or required for medical reasons: No Advance Directives: Yes Advance Directives on File: Yes Advance Directives Date on File: 09/29/20 service: Yes ([employer]) Current occupational status: retired Cognitive needs: Yes (cane) Hearing needs: Yes Vision needs: Yes Meds Allergies Allergy/AdvReac Type Severity Reaction Status Date / Time diphenhydramine AdvReac Intermediate Hallucinati Verified 11/15/22 14:36 [From Benadryl] ons Active Medications: Current Medications Acetaminophen (Acetaminophen Supp 650 Mg Supp.Rect) 650 mg [place] Q6H PRN PRN Reason: Pain, Mild (Pain Scale 1-3) Last Admin: 12/01/22 06:33 Dose: 650 mg Morphine Sulfate (Morphine Sulfate 2 Mg/Ml Cartridge) 2 mg IVPUSH Q4H PRN; Protocol PRN Reason: Pain, Severe (Pain Scale 7-10) Last Admin: 12/01/22 06:51 Dose: 2 mg Ondansetron HCl (Ondansetron Hcl 4 Mg/2 Ml Vial) 4 mg IVPUSH Q8H PRN PRN Reason: Nausea and Vomiting Pharmacy Consult (Consult Rx Perform Med Rec) 1 each MISCELLANE ONCE PRN PRN Reason: Consult order Sodium Chloride (0.9 % Sodium Chloride Flush 3 Ml Syringe) [facility] Medications Medication Instructions Recorded Confirmed Last Taken Type isosorbide mononitrate 30 mg 1 tab PO QPM 12/01/22 Unknown History tablet,extended release 24 hr lactulose 10 gram/15 mL oral PO 12/01/22 Unknown History solution (Generlac) lisinopril 5 mg tablet 1 tab PO DAILY 12/01/22 Unknown History Physical Exam Vital Signs: Vital Signs: Last Vital Signs Temp 98.4 F 12/01/22 07:03 Pulse 103 H 12/01/22 07:03 Resp 17 12/01/22 07:03 BP 93/56 L 12/01/22 07:03 Pulse Ox 95 12/01/22 07:03 O2 Del Method 12/01/22 07:03 BMI result Body Mass Index 24.6 Const: General: alert and Physically active Nutritional Appearance: well nourished Orientation/consciousness: patient oriented x3 Limitations: no limitations HEENT: Head: Yes normocephalic and Yes atraumatic Resp: Effort & Inspection: normal respiratory effort, no audible wheezes, no cough and no respiratory distress GI: Inspection: Yes normal to inspection, Yes distended and Yes incision Palpation (GI): Firmness to palpation present (GI), no guarding and not rigid Percussion: Yes tympanic to percussion Auscultation: normal bowel sounds Rectal Exam - Male: Yes deferred Skin: General skin exam: no rashes or lesions noted Neuro: General: patient oriented x3 Extrem: General: Yes no clubbing, cyanosis or edema Results Labs 12/01/22 06:40 12/01/22 00:02 Labs: Abnormal lab results 12/01/22 12/01/22 12/01/22 Range/Units 00:02 00:02 01:42 WBC 18.8 H (4.8-10.8) X10*3/uL RBC 5.81 H D (4.60-5.80) X10*6/uL Immature Gran % (Auto) 0.5 H (0.0-0.4) % Neut % (Auto) 86.8 H (45-73) % Lymph % (Auto) 8.6 L (20-40) % Abs Immat Gran (auto) 0.10 H (0.00-0.03) X10*3/uL Absolute Neuts (auto) 16.3 H (2.0-8.3) x10*3/uL Random Glucose 158 H (60-115) mg/dL Ur Leukocyte Esterase Trace H (Negative) Urine RBC 3-5 H (0-2) /HPF 12/01/22 Range/Units 06:40 WBC 15.9 H (4.8-10.8) X10*3/uL RBC (4.60-5.80) X10*6/uL Immature Gran % (Auto) (0.0-0.4) % Neut % (Auto) 84.9 H (45-73) % Lymph % (Auto) 7.4 L (20-40) % Abs Immat Gran (auto) 0.06 H (0.00-0.03) X10*3/uL Absolute Neuts (auto) 13.5 H (2.0-8.3) x10*3/uL Random Glucose (60-115) mg/dL Ur Leukocyte Esterase (Negative) Urine RBC (0-2) /HPF Short CBC 12/01/22 12/01/22 Range/Units 00:02 06:40 WBC 18.8 H 15.9 H (4.8-10.8) X10*3/uL Hgb 17.1 D 14.2 (14.0-18.0) g/dl Hct 50.2 D 42.1 (42.0-52.0) % Plt Count 250 D 227 (160-400) X10*3/uL BMP 12/01/22 00:02 Sodium 140 Potassium 4.7 Chloride 105 Carbon Dioxide 25 BUN 16 Creatinine 0.88 Calcium 9.5 D Liver Function 12/01/22 Range/Units 00:02 Total Bilirubin 0.7 (0.0-1.0) mg/dL Direct Bilirubin 0.2 (0.0-0.5) mg/dL AST 17 (5-37) U/L ALT 14 (0-40) U/L Alkaline Phosphatase 98 (39-117) U/L Albumin 4.3 (3.5-5.0) g/dL Urine 12/01/22 Range/Units 01:42 Urine Color Yellow Urine Appearance Clear Urine pH 7.5 (5.0-9.0) Ur Specific [place] 1.025 (1.005-1.025) Urine Protein Trace (Neg-Trace) mg/dL Urine Glucose (UA) Negative (Negative) mg/dL All other labs normal. Assessment and Plan (1) Small bowel obstruction: Status: Acute Plan 87-year-old male patient presenting with a recurrence small-bowel obstruction, partial due to adhesions. Previous episodes have resolved with non operative measures recommend bowel rest, including NPO, IV hydration, nasogastric tube if continued nausea vomiting or increased abdominal pain. Will follow along during his hospital course. Time Spent With Patient Time: Total time managing care of this patient today ____ minutes. Procedures Date of Service Date of Service: 12/01/22
--- NOTE | 2022-12-01 07:35 | PC.NURSE ---
ASSUMED CARE AT 0700. REPORTS REASSESS PAIN 02/06. NO COMPLAINTS.
[2022-12-01 07:40] LABS: Calcium 8.5 mg/dL (8.4-10.2)
--- NOTE | 2022-12-01 07:46 | MHC.EDTECH ---
Pt changed from street clothes, belongings placed in bags. Bed in low, locked position. Call shin within reach, able to make needs known.
--- NOTE | 2022-12-01 09:02 | PHA.MEDREC ---
Pharmacy Consult ? Medication Reconciliation Pharmacy has completed the medication reconciliation. Pt able to list all meds without prompt
[2022-12-01] MEDS: Lactated Ringers 1,000 ML 100 ML IVCONT ×2 (09:05→18:39)
[2022-12-01] MEDS: 0.9 % Sodium Chloride Flush 3 ML SYRINGE IVFLUSH ×2 (09:05→23:34)
--- NOTE | 2022-12-01 11:41 | PC.NURSE ---
PT C/O ABD PAIN AND NAUSEA, MEDS GIVEN DOCUMENTED. VISITOR AT BEDSIDE.
--- NOTE | 2022-12-01 16:30 | PC.NURSE ---
PT REQUESTED PAIN MEDS FOR ABD PAIN. MED GIVEN DOCUMENTED. PT'S DAUGHTER AT HIS BEDSIDE REQUESTED TO SPEAK WITH DR. THAKKAR, PROVIDER WAS NOTIFIED AND IS AWARE.
[2022-12-02 04:00] VITALS: BP 123/61; PULSE 85; RESP 16; TEMP 36.8; O2SAT 95
[2022-12-02] MEDS: Lactated Ringers 1,000 ML 100 ML IVCONT (04:18)
[2022-12-02 08:00] VITALS: BP 121/62; PULSE 76; RESP 17; TEMP 36.4; O2SAT 94
--- NOTE | 2022-12-02 08:17 | P.PNGS_ITS ---
Subjective Subjective Date of Service: 12/02/22 Patient reports: no new complaints Interval history: Patient feels unchanged, no bowel movement yet. Abdominal pain has improved. Denies nausea or vomiting. Physical Exam Vital Signs: Vital Signs: Last Vital Signs Temp 97.5 F 12/02/22 08:00 Pulse 76 12/02/22 08:00 Resp 17 12/02/22 08:00 BP 121/62 12/02/22 08:00 Pulse Ox 94 12/02/22 08:00 O2 Del Method 12/02/22 08:00 BMI result Body Mass Index 24.6 Const: General: comfortable and no acute distress Nutritional Appearance: thin Orientation/consciousness: patient oriented x3 Limitations: no limitations Resp: Effort & Inspection: normal respiratory effort GI: Palpation (GI): Soft to palpation, nontender, no guarding and not rigid Percussion: Yes tympanic to percussion Auscultation: Hypoactive bowel sounds present Skin: General skin exam: no rashes or lesions noted Neuro: General: patient oriented x3 Objective Data Active Medications Acetaminophen (Acetaminophen Supp 650 Mg Supp.Rect) 650 mg [place] Q6H PRN PRN Reason: Pain, Mild (Pain Scale 1-3) Last Admin: 12/01/22 06:33 Dose: 650 mg Documented By: MYRA Lactated Ringer's (Lr) 1,000 mls @ 100 mls/hr IVCONT .Q10H [facility] Last Admin: 12/02/22 04:18 Dose: 100 mls/hr Documented By: ELIEZER Morphine Sulfate (Morphine Sulfate 2 Mg/Ml Cartridge) 2 mg IVPUSH Q4H PRN; Protocol PRN Reason: Pain, Severe (Pain Scale 7-10) Last Admin: 12/01/22 16:16 Dose: 2 mg Documented By: GARRETT Ondansetron HCl (Ondansetron Hcl 4 Mg/2 Ml Vial) 4 mg IVPUSH Q6H PRN PRN Reason: Nausea and Vomiting Pharmacy Consult (Consult Rx Perform Med Rec) 1 each MISCELLANE ONCE PRN PRN Reason: Consult order Sodium Chloride (0.9 % Sodium Chloride Flush 3 Ml Syringe) [facility] Last Admin: 12/01/22 23:34 Dose: 3 ml Documented By: ELIEZER Labs 12/01/22 06:40 12/01/22 06:40 Microbiology Microbiology Results: Microbiology 12/01/22 00:38 Blood Culture - Preliminary Blood - Venous No growth after 24 hours. 12/01/22 00:38 Blood Culture - Preliminary Blood - Venous No growth after 24 hours. Procedures Date of Service Date of Service: 12/02/22 Progress Note: A&P Assessment and plan (1) Small bowel obstruction: Status: Acute Plan 87-year-old male patient with recurrent small-bowel obstruction due to adhesions. Patient has not responded to non operative management yet. I will request an abdominal x-ray to monitor bowel gas pattern. Will start on sips of clear liquids for comfort. He will need a nasogastric tube if this is not tolerated. Patient is encouraged to ambulate. Time Spent With Patient Time: Total time managing care of this patient today ____ minutes. Quality Stroke Does the patient have a stroke diagnosis?: No VTE Prior VTE?: No VTE Risk Level:: Medical - moderate - high VTE Device Contraindication: N/A - Device Ordered VTE Drug Contraindication: Treatment Not Indicated
[2022-12-02] MEDS: 0.9 % Sodium Chloride Flush 3 ML SYRINGE IVFLUSH ×3 (08:43→21:02)
--- NOTE | 2022-12-02 09:35 | MHC.CM.PN ---
PT REPORTS HE LIVES WITH HIS , GRAND DAUGHTER AND GREAT GRAND DAUGHTER PT HAS NO SERVICES AND USES A [facility] FOR DME HE IS COIVD VAX X 4 SUNG PO IS HIS PCP HCP ON FILE IMM DELIVERED DCP: HOME NO SERVICES FAMILY TO TRANSPORT
--- NOTE | 2022-12-02 13:42 | P.PNIM_ITS ---
Subjective Subjective Date of Service: 12/02/22 Interval History: Feeling better this morning , mild abdominal discomfort no nausea, no vomiting, no bowel movement, ambulating to bathroom, no fevers no chills no other acute issues overnight denies lightheadedness or dizziness. Review of Systems Review of Systems: Yes all other systems are reviewed and are negative Physical Exam Vital Signs: Vital Signs: Last Vital Signs Temp 97.5 F 12/02/22 08:00 Pulse 76 12/02/22 08:00 Resp 17 12/02/22 08:00 BP 121/62 12/02/22 08:00 Pulse Ox 94 12/02/22 08:00 O2 Del Method 12/02/22 08:00 BMI result Body Mass Index 24.6 Const: Other: General resting comfortably in no acute distress.? Neck is supple no JVD. CVS? regular rate rhythm, Respiratory lungs clear to auscultation, no respiratory distress, no wheeze, no rhonchi. Gastrointestinal abdomen soft, nontender, hypoactive bowel sounds , no guarding , no rigidity. Extremities no edema. Neuro nonfocal Skin no rash Psych appropriate affect Objective Data Active Medications Acetaminophen (Acetaminophen Supp 650 Mg Supp.Rect) 650 mg [place] Q6H PRN PRN Reason: Pain, Mild (Pain Scale 1-3) Last Admin: 12/01/22 06:33 Dose: 650 mg Documented By: MYRA Lactated Ringer's (Lr) 1,000 mls @ 100 mls/hr IVCONT .Q10H [facility] Last Admin: 12/02/22 04:18 Dose: 100 mls/hr Documented By: ROBERTAORALWandy Morphine Sulfate (Morphine Sulfate 2 Mg/Ml Cartridge) 2 mg IVPUSH Q4H PRN; Protocol PRN Reason: Pain, Severe (Pain Scale 7-10) Last Admin: 12/01/22 16:16 Dose: 2 mg Documented By: GARRETT Ondansetron HCl (Ondansetron Hcl 4 Mg/2 Ml Vial) 4 mg IVPUSH Q6H PRN PRN Reason: Nausea and Vomiting Pharmacy Consult (Consult Rx Perform Med Rec) 1 each MISCELLANE ONCE PRN PRN Reason: Consult order Sodium Chloride (0.9 % Sodium Chloride Flush 3 Ml Syringe) [facility] Last Admin: 12/02/22 08:43 Dose: 3 ml Documented By: NGENOAL Labs 12/01/22 06:40 12/01/22 06:40 Microbiology Microbiology Results: Microbiology 12/01/22 00:38 Blood Culture - Preliminary Blood - Venous No growth after 24 hours. 12/01/22 00:38 Blood Culture - Preliminary Blood - Venous No growth after 24 hours. Assessment and Plan (1) Small bowel obstruction: Status: Acute Plan 87-year-old male with pertinent history of colorectal cancer status post resection, complicated by recurrent small-bowel obstruction, diet-controlled diabetes mellitus, prostate cancer, essential [facility] #.? Small-bowel obstruction:? Feeling better this morning no nausea, no vomiting abdominal pain has improved, has had no bowel movement since admission seen by General surgery abdominal x-rays ordered, patient placed on clear liquid diet, if noted to have nausea vomiting then will consider NG tube placement. Aspirin and Crestor on hold Encourage ambulation #.? Reactive leukocytosis:? WBC trending down , urinalysis unremarkable, chest x-ray showed no infiltrate , CT abdomen and pelvis showed dilated stomach and small bowel air-fluid levels with transition point in right lower quadrant suggestive of small-bowel obstruction otherwise no other pathology #.? Essential hypertension:? Soft blood pressure will hold metoprolol 12.5 mg b.i.d. #.? Diet controlled diabetes mellitus: Blood sugar elevated, will monitor. #.? Prostate cancer: Outpatient follow-up with DVT prophylaxis:? Mechanical.? Lovenox until surgical evaluation DNR/DNI In my clinical judgment patient will need continued inpatient stay for management of SBO. Time Spent With Patient Time: Total time managing care of this patient today ____ minutes. Quality Stroke Does the patient have a stroke diagnosis?: No VTE Prior VTE?: No VTE Risk Level:: Medical - moderate - high VTE Device Contraindication: N/A - Device Ordered VTE Drug Contraindication: Treatment Not Indicated
[2022-12-02 16:00] VITALS: BP 146/68; PULSE 71; RESP 17; TEMP 36.4; O2SAT 97
[2022-12-02 19:45] VITALS: BP 169/70; PULSE 70; RESP 17; TEMP 36.2; O2SAT 95
[2022-12-03 03:31] VITALS: BP 145/71; PULSE 80; RESP 17; TEMP 36.6; O2SAT 95
[2022-12-03 06:11] LABS: Hematocrit 35.8 % (42.0-52.0); Mean Corpuscular HGB Conc 33.5 g/dl (31.0-36.0); Mean Corpuscular Hemoglobin 29.3 pg (27.0-33.0); Mean Corpuscular Volume 87.5 fL (80.0-98.0); Mean Platelet Volume 10.4 fL (9.4-12.4); Platelet Count 178 X10*3/uL (160-400); Red Blood Count 4.09 X10*6/uL (4.60-5.80); Red Cell Distribution Width 12.7 % (11.0-16.0); White Blood Count 6.6 X10*3/uL (4.8-10.8)
[2022-12-03 06:30] LABS: Anion Gap 8 (12-20); Blood Urea Nitrogen 16 mg/dL (9-16); Carbon Dioxide 22 mmol/L (22-29); Chloride 112 mmol/L (96-108); Creatinine Clr Calc Pharmacy 94.8; Estimated Glomerular Filt Rate > 60; Glucose Random 78 mg/dL (60-115); Potassium 3.7 mmol/L (3.3-5.1); Sodium 138 mmol/L (135-145)
[2022-12-03 08:00] VITALS: BP 141/75; PULSE 67; RESP 18; TEMP 36.4; O2SAT 96
[2022-12-03] MEDS: 0.9 % Sodium Chloride Flush 3 ML SYRINGE IVFLUSH ×3 (10:17→19:57)
--- NOTE | 2022-12-03 10:25 | PM.PNGS ---
Subjective Subjective Date of Service: 12/03/22 Patient reports: no new complaints and pain is less Interval history: The patient is seen in coverage The patient was sleeping comfortably in readily awoken. He reports vague abdominal complaints in that he is not taking much clear liquids. He has had some flatus and had a bowel movement but is reticent to have his diet advanced today. He otherwise denies chest pain, difficulty breathing or shortness of breath. Physical Exam Vital Signs: Vital Signs: Last Vital Signs Temp 97.5 F 12/03/22 08:00 Pulse 67 12/03/22 08:00 Resp 18 12/03/22 08:00 BP 141/75 H 12/03/22 08:00 Pulse Ox 96 12/03/22 08:00 O2 Del Method 12/03/22 08:00 BMI result Body Mass Index 24.6 On exam he is nontoxic He is in no respiratory distress Abdomen is overweight and soft. He reports some tenderness in his well-healed infraumbilical midline scar but I do not appreciate any hernia. His abdomen is otherwise soft with no peritoneal sign. Objective Data Active Medications Acetaminophen (Acetaminophen Supp 650 Mg Supp.Rect) 650 mg [place] Q6H PRN PRN Reason: Pain, Mild (Pain Scale 1-3) Last Admin: 12/01/22 06:33 Dose: 650 mg Documented By: MYRA Morphine Sulfate (Morphine Sulfate 2 Mg/Ml Cartridge) 2 mg IVPUSH Q4H PRN; Protocol PRN Reason: Pain, Severe (Pain Scale 7-10) Last Admin: 12/01/22 16:16 Dose: 2 mg Documented By: GARRETT Ondansetron HCl (Ondansetron Hcl 4 Mg/2 Ml Vial) 4 mg IVPUSH Q6H PRN PRN Reason: Nausea and Vomiting Pharmacy Consult (Consult Rx Perform Med Rec) 1 each MISCELLANE ONCE PRN PRN Reason: Consult order Sodium Chloride (0.9 % Sodium Chloride Flush 3 Ml Syringe) 3 ml IVFLUSH [facility] Last Admin: 12/03/22 10:17 Dose: 3 ml Documented By: ALCON Labs 12/03/22 05:34 12/03/22 05:34 Labs: Laboratory Results - last 24 hr 12/03/22 12/03/22 05:34 05:34 MCV 87.5 MCH 29.3 MCHC 33.5 RDW 12.7 Plt Count 178 MPV 10.4 Absolute Nucleated RBC 0.000 Nucleated RBC % (auto) 0.0 Anion Gap 8 L Estim Creat Clear Calc 94.8 Estimated GFR > 60 Random Glucose 78 Calcium 8.0 L Microbiology Microbiology Results: Microbiology 12/01/22 00:38 Blood Culture - Preliminary Blood - Venous No growth after 48 hours. 12/01/22 00:38 Blood Culture - Preliminary Blood - Venous No growth after 48 hours. Procedures Date of Service Date of Service: 12/03/22 Progress Note: A&P Assessment and plan (1) Small bowel obstruction: Status: Acute Plan Continue clear liquids for now Patient is encouraged to get up and out of bed with assist to a chair Will reassess diet bowel activity and patient's abdominal symptoms tomorrow. Time Spent With Patient Time: Total time managing care of this patient today ____ minutes. Quality Stroke Does the patient have a stroke diagnosis?: No VTE Prior VTE?: No VTE Risk Level:: Medical - moderate - high VTE Device Contraindication: N/A - Device Ordered VTE Drug Contraindication: Treatment Not Indicated
--- NOTE | 2022-12-03 14:49 | HO.PM.IMPN ---
Subjective Subjective Date of Service: 12/03/22 Interval History: Improved this a.m.. States passing stool. Requesting upgraded diet Review of Systems Denies chest pain Denies shortness of breath Denies Physical Exam Vital Signs: Vital Signs: Last Vital Signs Temp 97.5 F 12/03/22 08:00 Pulse 67 12/03/22 08:00 Resp 18 12/03/22 08:00 BP 141/75 H 12/03/22 08:00 Pulse Ox 96 12/03/22 08:00 O2 Del Method 12/03/22 08:00 BMI result Body Mass Index 24.6 Const: Other: Awake alert no acute distress Resp: Other: Clear to auscultation bilaterally no rales rhonchi or wheezes Cardio: Other: No S4; positive S1-S2; no S3 murmurs rubs or gallops GI: Other: Soft nontender nondistended quiet bowel sounds bowel sounds Extrem: Other: No edema bilaterally Objective Data Active Medications Acetaminophen (Acetaminophen Supp 650 Mg Supp.Rect) 650 mg [place] Q6H PRN PRN Reason: Pain, Mild (Pain Scale 1-3) Last Admin: 12/01/22 06:33 Dose: 650 mg Documented By: MYRA Morphine Sulfate (Morphine Sulfate 2 Mg/Ml Cartridge) 2 mg IVPUSH Q4H PRN; Protocol PRN Reason: Pain, Severe (Pain Scale 7-10) Last Admin: 12/01/22 16:16 Dose: 2 mg Documented By: GARRETT Ondansetron HCl (Ondansetron Hcl 4 Mg/2 Ml Vial) 4 mg IVPUSH Q6H PRN PRN Reason: Nausea and Vomiting Pharmacy Consult (Consult Rx Perform Med Rec) 1 each MISCELLANE ONCE PRN PRN Reason: Consult order Sodium Chloride (0.9 % Sodium Chloride Flush 3 Ml Syringe) 3 ml IVFLUSH QSHIFT [facility] Last Admin: 12/03/22 10:17 Dose: 3 ml Documented By: ALCON Labs 12/03/22 05:34 12/03/22 05:34 Labs: Laboratory Results - last 24 hr 12/03/22 12/03/22 05:34 05:34 MCV 87.5 MCH 29.3 MCHC 33.5 RDW 12.7 Plt Count 178 MPV 10.4 Absolute Nucleated RBC 0.000 Nucleated RBC % (auto) 0.0 Anion Gap 8 L Estim Creat Clear Calc 94.8 Estimated GFR > 60 Random Glucose 78 Calcium 8.0 L Microbiology Microbiology Results: Microbiology 12/01/22 00:38 Blood Culture - Preliminary Blood - Venous No growth after 48 hours. 12/01/22 00:38 Blood Culture - Preliminary Blood - Venous No growth after 48 hours. Assessment and Plan (1) Small bowel obstruction: Status: Acute (2) Essential hypertension: Status: Acute (3) Type 2 diabetes mellitus: Status: Acute Plan 87-year-old male with pertinent history of colorectal cancer status post resection, complicated by recurrent small-bowel obstruction, diet-controlled diabetes mellitus, prostate cancer, essential hypertension presents to the emergency department for evaluation of abdominal discomfort. 1.Small-bowel obstruction -tolerated full liquids at lunch; wishes regular diet at supper -ambulatory ad kun with cane/daughter -passing stools 2.Essential hypertension -rising off meds -restart metoprolol 12.5 b.i.d. 3.Diabetes mellitus(diet controlled) -acceptable control -follow-up POCs DVT prophylaxis:? Ambulatory DNR/DNI In my clinical judgment patient will need continued inpatient stay for management of SBO. Time Spent With Patient Time: Total time managing care of this patient today ____ minutes. Quality Stroke Does the patient have a stroke diagnosis?: No VTE Prior VTE?: No VTE Risk Level:: Medical - moderate - high VTE Device Contraindication: N/A - Device Ordered VTE Drug Contraindication: Treatment Not Indicated
[2022-12-03 16:00] VITALS: BP 159/73; PULSE 66; RESP 15; TEMP 36.6; O2SAT 94
[2022-12-03 19:48] VITALS: BP 165/90; PULSE 72; RESP 16; TEMP 36.6; O2SAT 96
[2022-12-03] MEDS: Metoprolol Tartrate 12.5 MG HALFTAB PO (19:57)
[2022-12-04 04:00] VITALS: BP 150/67; PULSE 66; RESP 16; TEMP 36.7; O2SAT 94
[2022-12-04 08:00] VITALS: BP 146/67; PULSE 64; RESP 18; TEMP 36.4; O2SAT 95
[2022-12-04] MEDS: Metoprolol Tartrate 12.5 MG HALFTAB PO (09:38)
[2022-12-04] MEDS: 0.9 % Sodium Chloride Flush 3 ML SYRINGE IVFLUSH (09:40)
--- NOTE | 2022-12-04 10:27 | PM.DS ---
DS: Providers Provider Date of Service: 12/04/22 Date of admission: 12/01/22 02:30 Date of discharge: 12/04/22 Primary care physician: Pro Nunn MD Consults: 12/01/22 02:31 Consult to General Surgery Routine Consulting Provider: Mckayla Campbell Reason for consultation: SBO DS: Diagnosis Discharge Diagnosis (1) Small bowel obstruction: Status: Acute (2) Essential hypertension: Status: Acute (3) Type 2 diabetes mellitus: Status: Acute DS: Summary Hospital Course Hospital Course: 87-year-old male with pertinent history of colorectal cancer status post resection, complicated by recurrent small-bowel obstruction, diet-controlled diabetes mellitus, prostate cancer, essential hypertension presents to the emergency department for evaluation of abdominal discomfort.? Patient states abdominal discomfort started 1 day prior to presentation, constant and without any relieving factors.? Also has been having had nausea and nonbloody emesis.? He has had constipation without any bowel movement.? Able to pass gas.? Feels similar to previous small-bowel obstruction.? He denies fever, chills, chest discomfort, palpitations, shortness of breath, changes in urinary habits. ER evaluation demonstrated partial small-bowel obstruction Hospital Course Admitted to general medical floor and started on clear liquids. Over the next 48 hours his diet was advanced to full liquid and then to regular. He had multiple bowel movements the day before admission and the morning of admission. At this point time he is tolerating a diet and he is medically acceptable for discharge to home. Seen by surgery a day discharge nothing to add. Time Spent with Patient Time attestation: Total time managing care of this patient today ____ minutes. Discharge coordination time: Greater than 30 minutes Quality: Safe Use of Opioids Does Pt have an Active Cancer Diagnosis on the Problem List?: No Quality: Stroke Does the patient have a stroke diagnosis?: No Physical Exam Vital Signs: Vital Signs: Last Vital Signs Temp 97.6 F 12/04/22 08:00 Pulse 64 12/04/22 08:00 Resp 18 12/04/22 08:00 BP 146/67 H 12/04/22 08:00 Pulse Ox 95 12/04/22 08:00 O2 Del Method 12/04/22 08:00 BMI result Body Mass Index 24.6 DS: Data Data Completed and Pending Completed studies during hospitalization [Text1]: Procedures Dilation of Bladder Neck, Via Natural or Artificial Opening Endoscopic (09/30/20) Drainage of Bladder with Drainage Device, Via Natural or Artificial Opening Endoscopic (09/30/20) Insertion of Infusion Device into Superior Vena Cava, Percutaneous Approach (08/27/20) Ultrasonography of Superior Vena Cava, Guidance (08/27/20) Labs on day of discharge: Preliminary micro results at discharge 12/01/22 00:38 Blood Culture - Preliminary Blood - Venous No growth after 48 hours. 12/01/22 00:38 Blood Culture - Preliminary Blood - Venous No growth after 48 hours. Discharge Plan Discharge Anticipated Discharge Date/Time: 12/04/22 10:24 Patient Disposition: Home, Self-Care Discharge Diagnosis: Small-bowel obstruction Referrals: Po,Pro Adame MD [Primary Care Provider] - 1 Week Discharge Medications: Continued lactulose [Generlac] 10 gram/15 mL solution 30 ml PO DAILY cyanocobalamin (vitamin B-12) 1,000 mcg Tablet 1,000 mcg PO DAILY aspirin 81 mg Tablet,Delayed Release (Dr/Ec) 81 mg PO DAILY metoprolol tartrate 25 mg tablet 12.5 mg PO BID 90 Days Qty: 90 1RF rosuvastatin [Crestor] 10 mg tablet 10 mg PO DAILY Qty: 90 3RF Discharge Orders: Discharge Order (Routine); Ordered 12/04/22 Ordered By: Jem Mae Diet: Advance to usual diet Activity on Discharge: As tolerated Stand Alone Forms: Patient Portal Discharge page Care Plan Goals: Resume all medicine as prior to hospital Health Concerns: Continue to advance her diet as tolerated Plan of Treatment: Resume your bowel regimen with lactulose; follow-up with PCP 1-2 weeks Assessment: See discharge summary
--- NOTE | 2022-12-04 11:18 | MHC.CM.PN ---
PT WILL DC HOME TODAY WITH NO SERVICES VIA FAMILY TRANSPORT
--- NOTE | 2022-12-04 11:26 | PM.PNGS ---
Subjective Subjective Date of Service: 12/04/22 Patient reports: no new complaints, feels better, flatus and bowel movement Interval history: The patient is up and walking in the halls. He is seen in coverage for Dr. Randle. Patient reports he tolerated his diet and is interested in having advanced for subsequent discharge. He otherwise denies any new complaints Physical Exam Vital Signs: Vital Signs: Last Vital Signs Temp 97.6 F 12/04/22 08:00 Pulse 64 12/04/22 08:00 Resp 18 12/04/22 08:00 BP 146/67 H 12/04/22 08:00 Pulse Ox 95 12/04/22 08:00 O2 Del Method 12/04/22 08:00 BMI result Body Mass Index 24.6 On exam he appears nontoxic and is readily walking with a cane Objective Data Active Medications Acetaminophen (Acetaminophen Supp 650 Mg Supp.Rect) 650 mg UT Q6H PRN PRN Reason: Pain, Mild (Pain Scale 1-3) Last Admin: 12/01/22 06:33 Dose: 650 mg Documented By: MYRA Metoprolol Tartrate (Metoprolol Tartrate 12.5 Mg Halftab) 12.5 mg PO BID [facility]; Protocol Last Admin: 12/04/22 09:38 Dose: 12.5 mg Documented By: JOSE CARLOS Morphine Sulfate (Morphine Sulfate 2 Mg/Ml Cartridge) 2 mg IVPUSH Q4H PRN; Protocol PRN Reason: Pain, Severe (Pain Scale 7-10) Last Admin: 12/01/22 16:16 Dose: 2 mg Documented By: GARRETT Ondansetron HCl (Ondansetron Hcl 4 Mg/2 Ml Vial) 4 mg IVPUSH Q6H PRN PRN Reason: Nausea and Vomiting Pharmacy Consult (Consult Rx Perform Med Rec) 1 each MISCELLANE ONCE PRN PRN Reason: Consult order Sodium Chloride (0.9 % Sodium Chloride Flush 3 Ml Syringe) [address] [facility] Last Admin: 12/04/22 09:40 Dose: 3 ml Documented By: JOSE CARLOS Labs 12/03/22 05:34 12/03/22 05:34 Procedures Date of Service Date of Service: 12/04/22 Progress Note: A&P Assessment and plan (1) Small bowel obstruction: Status: Acute (2) Type 2 diabetes mellitus: Status: Acute Plan Instructions to advance his diet and possible discharge later is reviewed and the patient agrees. Patient will follow-up with his regular physicians per Time Spent With Patient Time: Total time managing care of this patient today ____ minutes. Quality Stroke Does the patient have a stroke diagnosis?: No VTE Prior VTE?: No VTE Risk Level:: Medical - moderate - high VTE Device Contraindication: N/A - Device Ordered VTE Drug Contraindication: Treatment Not Indicated
== END 2022-12-04 14:13 | disposition home or self-care (01) | DRG 390 ==
LOC: HO.ED 12-01 02:41 → HO.EDOVER 12-01 03:01 → HO.S3 12-01 19:06
PROVIDERS: Hospitalist; Admitting Provider Student in an Organized Health Care Education/Training Program; Emergency Provider Emergency Medicine; PCP Internal Medicine; Visit Provider Hospitalist
DX: K56.50 Intestinal adhesions [bands], unspecified as to partial versus complete obstruction (principal); C61 Malignant neoplasm of prostate; E11.9 Type 2 diabetes mellitus without complications; I10 Essential (primary) hypertension; D72.829 Elevated white blood cell count, unspecified; Z20.822 Contact with and (suspected) exposure to COVID-19; Z66 Do not resuscitate; Z98.0 Intestinal bypass and anastomosis status; Z85.038 Personal history of other malignant neoplasm of large intestine; Z87.891 Personal history of nicotine dependence; Z79.82 Long term (current) use of aspirin; Z79.899 Other long term (current) drug therapy
CPT/HCPCS: 36415; 71045; 73560; 74018; 74176; 80048; 80076; 81001; 83605; 85025; 85027; 87040; 87635; 93005; 99285; J2270; J2405

== ENCOUNTER → 2023-01-03 08:59 | Outpatient (BNVA) | payer MEDICARE, OTHER, SELFPAY | PROVIDERS: PCP Internal Medicine; Visit Provider Urology | DX: N32.0 Bladder-neck obstruction (principal); C61 Malignant neoplasm of prostate | CPT/HCPCS: 51798; 99212 ==

== ENCOUNTER 2023-02-17 17:16 | Outpatient (REF) | payer MEDICARE, OTHER, SELFPAY ==
--- NOTE | ~2023-02-17 | XR_ITS ---
EXAMINATION: XR ABDOMEN WITH DECUBITUS VIEWS CLINICAL INDICATION: K59.00 - Constipation, unspecified. COMPARISON: Abdominal radiographs 12/02/2022, chest 12/01/2022 TECHNIQUE: The abdomen is imaged in supine and upright views for a total of 6 views. FINDINGS: There is scattered gas in the large and small bowel of normal caliber. There is no gaseous dilatation of bowel or differential air-fluid levels, pneumatosis, or free air. There is moderate stool in the colon. There are surgical clips and chain jodi in the mid pelvis. There are scattered bilateral pleural plaques again seen mid lung zones. No airspace consolidation or effusion. There are multilevel degenerative changes thoracic and lumbosacral spine. XR/XR abdomen w decubitus IMPRESSION: -Moderate stool colon. No obstruction or free air. -Scattered bilateral pleural plaques. Lung bases otherwise clear. No infiltrate or effusion.
== END 2023-02-17 17:17 | disposition home or self-care (01) ==
LOC: HO.XRAY 17:16
PROVIDERS: PCP Internal Medicine; Visit Provider Internal Medicine
DX: K59.00 Constipation, unspecified (principal)
CPT/HCPCS: 74021

== ENCOUNTER 2023-02-21 18:28 | Inpatient (IN) | payer MEDICARE, OTHER, SELFPAY ==
--- NOTE | ~2023-02-21 | CT_ITS ---
EXAMINATION: CT abdomen pelvis wo IV con CLINICAL INFORMATION: Reason for Exam recurrent SBOs, hx rectal CA COMPARISON: Prior CT 11/30/2022 TECHNIQUE: Multidetector volumetric imaging was performed from the superior aspect of the liver through the pubic symphysis , noncontrasted study. Sagittal and coronal reformatted images were obtained on the technologist's workstation. This CT examination was performed using dose optimization techniques as appropriate, variously including the following: *Automated exposure control *Adjustment of mA and/or kV according to patient size (this includes techniques or standardized protocols for targeted exams where dose is matched to indication/reason for exam; i.e. extremities or head) *Use of iterative reconstruction technique DLP: 658 mGy-cm FINDINGS: LOWER THORAX: Included lung bases are clear. Pleural base calcification right lung base could be sequela of prior asbestos exposure. HEPATOBILIARY: Evaluation of the liver is limited due to lack of contrast. GALLBLADDER: Gallbladder unremarkable. SPLEEN: Spleen is normal in size. PANCREAS: No focal mass or ductal dilatation. STOMACH AND GASTROINTESTINAL TRACT: There is a small hiatal hernia the GE junction. Stomach is partially distended and unopacified. Redemonstration of 5 dilated the small bowel loops mid and lower abdomen with a transition zone in the lower pelvis image 70 series of 3, given patient history could be due to adhesions. The distal bowel loops are nondilated. No CT evidence of appendicitis. ADRENALS: No adrenal nodules. KIDNEYS/URETERS: There is a cyst in the right kidney 4.1 cm. No kidney stone or hydronephrosis. Perinephric fat are clear. URINARY BLADDER: Urinary bladder not well evaluated nondistended unopacified. PELVIC VISCERA: Unremarkable PERITONEUM: Redemonstration of hazy mesentery mid abdomen and a few mildly enlarged mesenteric lymph nodes, this is consistent with mesenteric panniculitis, this has not changed from prior exam. LYMPH NODES: Retroperitoneal periaortic lymph nodes normal in size by CT criteria. No bulky adenopathy. VASCULAR:Abdominal aorta normal in size, no aneurysm found. BONES, ABDOMINAL WALL AND SOFT TISSUES: Age-appropriate changes of the spine and skeletal system, no destructive osteolytic or osteosclerotic bone lesion found CT/CT abdomen pelvis wo IV con IMPRESSION: * Redemonstration of dilated small bowel loops proximal mid and lower abdomen with transition zone in the lower pelvis, this is consistent with partial small bowel obstruction, could be due to adhesions, however there is some bowel fullness at the transition zone, Felix image, concerning for possible tumor recurrence. Given patient history, may consider correlation with follow-up PET/CT. * Redemonstration of hazy mesentery and a few mildly enlarged mesenteric lymph nodes, this is consistent with mesenteric panniculitis, this has not changed from prior exam. Nonspecific CT finding, please see below for differential diagnosis. * Other noncritical findings as above. Mesenteric panniculitis is a nonspecific finding and can coexistent with malignancy such as extra-abdominal non-Hodgkin lymphoma, breast carcinoma, prostate carcinoma, lung carcinoma, gastrointestinal carcinoma, colorectal carcinoma, melanoma, pancreatic neoplasm among other neoplasms. It also can coexist with benign process such as Crohn's disease, sarcoidosis, liver cirrhosis, colitis, lupus, sclerosing cholangitis, pancreatitis, mesenteritis, retroperitoneal fibrosis. It also could be idiopathic. Recommended clinical assessment and careful exclusion of possible other neoplasms. If no further action taken now, followup CT scan in 6 months advised. Reference: [place] Journal of Radiology November 1999, volume 174, #2.. (Referring physician staff is being called, by physician staff assistance, to be alerted of the above critical findings and recommendations.) EM 02/21/2023 8:56 PM
--- NOTE | ~2023-02-21 | FL_ITS ---
EXAMINATION: FL BARIUM SWALLOW AND SMALL BOWEL SERIES CLINICAL INFORMATION: Recurrent small bowel obstructions. Remote history rectal carcinoma. COMPARISON: CT abdomen and pelvis noncontrast 02/21/2023. TECHNIQUE: Upper GI series and small bowel follow-through and are performed using fluoroscopic evaluation in addition to multiple fluoroscopic spot views and overhead images. The patient is imaged semiupright and supine with oblique views. Thin barium sulfate used for exam. Fluoroscopy time: 5.3 minutes DAP: 99.326 Gycm2 Fluoroscopic spot images: 29. Overhead images: 10. FINDINGS: The preliminary internal communications specialist films demonstrate scattered gas in the bowel of normal caliber. There is no gaseous dilatation of bowel or abnormal collections of gas. There is moderate stool in the colon. There is decreased primary esophageal peristalsis with some scattered tertiary contractions consistent with presbyesophagus. There is no obstruction, stricture, or ulceration. Small sliding hiatal hernia is demonstrated similar to the recent CT. No spontaneous gastroesophageal reflux. The stomach shows no thickened folds or ulcer crater or outlet obstruction. The duodenal bulb is pliable and without ulcer crater or scarring. The post bulbar duodenum is unremarkable. Contrast is followed through the small bowel and reaches the colon within 4 hours. There is no small bowel dilatation, angulated or tethered loops, or abnormal thickening of small bowel folds. There are no focal fixed or rigid segments of small bowel on fluoroscopic exam with compression. The transition zone noted on CT mid ileum is not identified fluoroscopically. The terminal ileum appears normal. FL/FL barium swallow w SBFT IMPRESSION: -Decreased primary esophageal peristalsis and scattered tertiary contractions consistent with presbyesophagus. -Small sliding hiatal hernia. No reflux demonstrated during exam. No stricture or ulceration. -Stomach unremarkable. No ulceration. No gastric outlet obstruction. -Contrast reaches right colon within 4 hours. No small bowel obstruction. The transition zone noted on CT is not identified fluoroscopically.
--- NOTE | 2023-02-21 18:44 | ECG_ITS ---
Test Reason : PAIN Blood Pressure : / mmHG Vent. Rate : 056 BPM Atrial Rate : 056 BPM P-R Int : 232 ms QRS Dur : 078 ms QT Int : 436 ms P-R-T Axes : 033 009 020 degrees QTc Int : 420 ms Sinus bradycardia with 1st degree A-V block Otherwise normal ECG When compared with ECG of 30-NOV-2022 23:52, No significant change was found Referred By: Heather Delacruz Electronically Signed By:Jairo Andrew
[2023-02-21 19:08] VITALS: BP 129/63; BP 168/87; PULSE 70; RESP 18; O2SAT 162; BMI 22.9
[2023-02-21] MEDS: ondansetron HCL 4 MG/2 ML VIAL IVPUSH (19:17)
[2023-02-21] MEDS: 0.9 % Sodium Chloride 1,000 ML 999 ML IVCONT (19:17)
[2023-02-21] MEDS: Morphine Sulfate 4 MG/ML CARTRIDGE IVPUSH (19:17)
[2023-02-21 20:31] VITALS: BP 130/61; PULSE 58; RESP 12; O2SAT 95
[2023-02-21 20:47] LABS: MANUAL DIFF FLAG NO
[2023-02-21 20:48] LABS: Basophils Percent Auto 0.2 % (0-2); Eosinophils Absolute Auto 0.1 X10*3/uL (0.0-0.4); Eosinophils Percent Auto 0.8 % (0-4); Hematocrit 41.2 % (42.0-52.0); Hemoglobin 13.8 g/dl (14.0-18.0); Imm Gran Abs Auto 0.03 X10*3/uL (0.00-0.03); Imm Gran Pct Auto 0.3 % (0.0-0.4); Lymphocytes Absolute Auto 1.4 X10*3/uL (1.2-4.9); Lymphocytes Percent Auto 16.3 % (20-40); Mean Corpuscular HGB Conc 33.5 g/dl (31.0-36.0); Mean Corpuscular Hemoglobin 29.1 pg (27.0-33.0); Mean Corpuscular Volume 86.9 fL (80.0-98.0); Mean Platelet Volume 9.8 fL (9.4-12.4); Monocytes Absolute Auto 0.7 X10*3/uL (0.1-1.2); Monocytes Percent Auto 7.6 % (2-11); Neutrophils Absolute Auto 6.6 x10*3/uL (2.0-8.3); Neutrophils Percent Auto 74.8 % (45-73); Platelet Count 216 X10*3/uL (160-400); Red Blood Count 4.74 X10*6/uL (4.60-5.80); Red Cell Distribution Width 12.8 % (11.0-16.0); White Blood Count 8.8 X10*3/uL (4.8-10.8)
[2023-02-21 20:54] LABS: Prothrombin Time 11.6 SEC (10.0-13.1)
[2023-02-21 21:24] LABS: Alanine Aminotransferase 18 U/L (0-40); Albumin Level 3.6 g/dL (3.5-5.0); Alkaline Phosphatase 72 U/L (39-117); Anion Gap 11 (12-20); Aspartate Amino Transferase 16 U/L (5-37); Bilirubin Direct 0.2 mg/dL (0.0-0.5); Bilirubin Total 0.6 mg/dL (0.0-1.0); Blood Urea Nitrogen 12 mg/dL (9-16); Calcium 8.4 mg/dL (8.4-10.2); Carbon Dioxide 23 mmol/L (22-29); Chloride 111 mmol/L (96-108); Creatinine Clr Calc Pharmacy 78.8; Estimated Glomerular Filt Rate > 60; Glucose Random 111 mg/dL (60-115); Magnesium 2.1 mg/dL (1.6-2.6); Potassium 4.8 mmol/L (3.3-5.1); Sodium 140 mmol/L (135-145); Total Protein 5.5 g/dL (6.5-8.0)
--- NOTE | 2023-02-21 21:28 | ED.ABDPAIN ---
HPI - Abdominal Pain General Chief Complaint: Abdominal Pain Stated Complaint: abdominal pain Time Seen by Provider: 02/21/23 18:39 Source: patient Mode of arrival: ambulatory Limitations: no limitations History of Present Illness HPI narrative: Patient comes to the emergency room complaining of severe diffuse abdominal pain. Patient states it feels like a small bowel obstruction, which he has had multiple in the past. Patient states that 4 days ago he started having diffuse abdominal discomfort, he suspected a small-bowel obstruction, patient did not eat anything for 2 days. Then he started eating clear liquids yesterday, today he developed severe abdominal pain. No vomiting, had a small bowel movement earlier today. Since then, the abdominal pain has gradually been getting worse. Related Data Home Medications Medication Instructions Recorded Confirmed aspirin 81 mg tablet,delayed 81 mg PO DAILY 12/01/22 12/01/22 release cyanocobalamin (vitamin B-12) 1,000 mcg PO DAILY 12/01/22 12/01/22 1,000 mcg tablet Previous Rx's Medication Instructions Recorded metoprolol tartrate 25 mg tablet 12.5 mg PO BID 90 days #90 tabs 04/22/22 rosuvastatin 10 mg tablet (Crestor) 10 mg PO DAILY #90 tabs 11/15/22 lactulose 10 gram/15 mL oral 30 ml PO DAILY PRN constipation 02/08/23 solution (Generlac) #946 mL Allergies Allergy/AdvReac Type Severity Reaction Status Date / Time diphenhydramine AdvReac Intermediate Hallucinati Verified 01/03/23 09:04 [From Benadsindyl] ons Review of Systems Review of Systems Constitutional : No Weight loss, No Fever, No Chills, No Night Sweats, No Fatigue, No Malaise ENT/Mouth : No Hearing loss, No Ear Pain, No Nasal Congestion, No Sinus Pain, No Hoarseness, No sore throat, No Rhinorrhea, No Swallowing Difficulty Eyes: No Eye Pain, No Swelling, No Redness, No Foreign Body, No Discharge, No Vision Changes Cardiovascular : No Chest Pain, No SOB, No Dyspnea on Exertion, No Orthopnea, No Edema, No Palpitations Respiratory : No Cough, No Sputum, No Wheezing, No Smoke Exposure, No Dyspnea Gastrointestinal : No Nausea, No Vomiting, No Diarrhea, No Constipation, complaining of diffuse abdominal pain Genitourinary : no irregular bleeding, No Dysuria, No Urinary Frequency, No Hematuria, No Urinary Incontinence, No Urgency, No Flank Pain, No Urinary Flow Changes, No Hesitancy Musculoskeletal : No joint pain, No Myalgias, No Joint Swelling Skin : No Skin Lesions, No rash Neuro : No Weakness, No Numbness, No Paresthesias, No Loss of Consciousness, No Dizziness, No Headache Psych : No Anxiety/Panic, No Depression, No SI/HI/AH/VH, No Social Issues, Heme/Lymph: No Bruising, No Bleeding,No Lymphadenopathy Endocrine : No Polyuria, No Polydipsia, No Temperature Intolerance [facility] Past Medical History Medical History Bladder neck contracture BPH (benign prostatic hyperplasia) Colon cancer Constipation Coronary artery disease Dysuria Erectile dysfunction Essential hypertension GERD (gastroesophageal reflux disease) Hematuria Hyperlipidemia, unspecified Obstructive sleep apnea Overweight (BMI 25.0-29.9) Peripheral vascular disease Prostate cancer Rectal cancer SBO (small bowel obstruction) Small bowel obstruction Type 2 diabetes mellitus with hyperglycemia Urinary incontinence Surgical History History of appendectomy History of bladder surgery (~01/04/18) History of carpal tunnel release History of colectomy History of exploratory laparotomy History of prostate surgery (~2016) Family History Family History Father Pancreatic cancer Mother No problems noted. Brother Liver cancer Social History Social History Household Members: Family Housing: House Are you a primary occasional caregiver to a significant other at home: Yes (occasional caregiver for , grand daughter lives with them as well) Do you presently have visiting nurse or other home services: No Alcohol intake: current Alcohol intake frequency: holidays/special occasions only Patient Tobacco Use Status: Former Tobacco user Quit Date: years ago Tobacco use type: Cigar Smoked in Last 30 Days: No e-Cigarette/Vaping Use: Never Used Second Hand Smoke Exposure: No Use of substances other than those prescribed or required for medical reasons: No Advance Directives: Yes Advance Directives on File: Yes Advance Directives Date on File: 09/29/20 service: Yes ([employer]) Current occupational status: retired Cognitive needs: Yes (cane) Hearing needs: Yes Vision needs: Yes Physical Exam ED Vital Signs: Vital Signs - 24 hr 02/21/23 19:08 02/21/23 20:31 Pulse Rate 58 Respiratory Rate 18 12 Blood Pressure 129/63 130/61 Pulse Oximetry 95 Oxygen Delivery Method Room Air BMI result Body Mass Index 22.9 Const Other: Appearance: Alert. Oriented X3. Very uncomfortable Eyes: Pupils equal, round and reactive to light. ENT: Pharynx normal. Neck: Normal inspection. Neck supple. No lymph nodes noted. No crepitus CVS: Normal heart rate and rhythm. Pulses normal. Normal S1 and S2 Respiratory: No respiratory distress. Breath sounds normal. No Wheezing. No rales Abdomen: Soft , diffuse tenderness to palpation Skin: Skin warm and dry. Normal skin color. Normal skin turgor. Extremities: No lower extremity edema. No Lacerations. No Rash Neuro: Oriented X 3. No motor deficit. No sensory deficit. Moving all extremities. No slurred speech. CN 2 through 12 grossly intact Psych: calm, cooperative, normal affect Medical Decision Making Medical Decision Making [facility] Narrative: -my interpretation of CT scan, there are air-fluid levels present -patient receive IV fluids, morphine and Zofran -I discussed the patient with Dr. Cat, patient being admitted. -on the CT scan report, there is a question of tumor recurrence in the small bowel. Also discussed with Dr. Cat Differential Diagnosis Differential Diagnoses: The differential diagnosis associated with the presentation includes (Partial SBO, SBO, small-bowel obstruction tumor) Admission/Observation Consideration of admission/observation: Escalation of care including admission/observation considered Consult Healthcare Provider Management of the patient was discussed with: Management Lead Lab Data [facility] Lab Attestation statement: I reviewed the patient's lab results. 02/21/23 20:26 02/21/23 21:04 Labs: Lab Results 02/21/23 02/21/23 02/21/23 Range/Units 20:26 20:26 20:26 WBC 8.8 (4.8-10.8) X10*3/uL RBC 4.74 (4.60-5.80) X10*6/uL Hgb 13.8 L (14.0-18.0) g/dl Hct 41.2 L (42.0-52.0) % MCV 86.9 (80.0-98.0) fL MCH 29.1 (27.0-33.0) pg MCHC 33.5 (31.0-36.0) g/dl RDW 12.8 (11.0-16.0) % Plt Count 216 (160-400) X10*3/uL MPV 9.8 (9.4-12.4) fL Immature Gran % (Auto) 0.3 (0.0-0.4) % Neut % (Auto) 74.8 H (45-73) % Lymph % (Auto) 16.3 L (20-40) % [place] % (Auto) 7.6 (2-11) % Eos % (Auto) 0.8 (0-4) % Baso % (Auto) 0.2 (0-2) % Lymph # (Auto) 1.4 (1.2-4.9) X10*3/uL [place] # (Auto) 0.7 (0.1-1.2) X10*3/uL Eos # (Auto) 0.1 (0.0-0.4) X10*3/uL Baso # (Auto) 0.0 (0.0-0.2) X10*3/uL Abs Immat Gran (auto) 0.03 (0.00-0.03) X10*3/uL Absolute Neuts (auto) 6.6 (2.0-8.3) x10*3/uL Absolute Nucleated RBC 0.000 (0.0-0.012) X10*3/uL Nucleated RBC % (auto) 0.0 (0.0-0.2) /100WBC PT 11.6 (10.0-13.1) SEC INR 1.0 (0.9-1.1) Sodium (135-145) mmol/L Potassium (3.3-5.1) mmol/L Chloride (96-108) mmol/L Carbon Dioxide (22-29) mmol/L Anion Gap (12-20) BUN (9-16) mg/dL Creatinine (0.5-1.4) mg/dL Estim Creat Clear Calc Estimated GFR Random Glucose (60-115) mg/dL Lactic Acid 1.0 (0.5-2.0) mmol/L Calcium (8.4-10.2) mg/dL Magnesium (1.6-2.6) mg/dL Total Bilirubin (0.0-1.0) mg/dL Direct Bilirubin (0.0-0.5) mg/dL AST (5-37) U/L ALT (0-40) U/L Alkaline Phosphatase (39-117) U/L Total Protein (6.5-8.0) g/dL Albumin (3.5-5.0) g/dL 02/21/23 Range/Units 21:04 WBC (4.8-10.8) X10*3/uL RBC (4.60-5.80) X10*6/uL Hgb (14.0-18.0) g/dl Hct (42.0-52.0) % MCV (80.0-98.0) fL MCH (27.0-33.0) pg MCHC (31.0-36.0) g/dl RDW (11.0-16.0) % Plt Count (160-400) X10*3/uL MPV (9.4-12.4) fL Immature Gran % (Auto) (0.0-0.4) % Neut % (Auto) (45-73) % Lymph % (Auto) (20-40) % [place] % (Auto) (2-11) % Eos % (Auto) (0-4) % Baso % (Auto) (0-2) % Lymph # (Auto) (1.2-4.9) X10*3/uL [place] # (Auto) (0.1-1.2) X10*3/uL Eos # (Auto) (0.0-0.4) X10*3/uL Baso # (Auto) (0.0-0.2) X10*3/uL Abs Immat Gran (auto) (0.00-0.03) X10*3/uL Absolute Neuts (auto) (2.0-8.3) x10*3/uL Absolute Nucleated RBC (0.0-0.012) X10*3/uL Nucleated RBC % (auto) (0.0-0.2) /100WBC PT (10.0-13.1) SEC INR (0.9-1.1) Sodium 140 (135-145) mmol/L Potassium 4.8 D (3.3-5.1) mmol/L Chloride 111 H (96-108) mmol/L Carbon Dioxide 23 (22-29) mmol/L Anion Gap 11 L (12-20) BUN 12 (9-16) mg/dL Creatinine 0.77 (0.5-1.4) mg/dL Estim Creat Clear Calc 78.8 Estimated GFR > 60 Random Glucose 111 (60-115) mg/dL Lactic Acid (0.5-2.0) mmol/L Calcium 8.4 (8.4-10.2) mg/dL Magnesium 2.1 (1.6-2.6) mg/dL Total Bilirubin 0.6 (0.0-1.0) mg/dL Direct Bilirubin 0.2 (0.0-0.5) mg/dL AST 16 (5-37) U/L ALT 18 (0-40) U/L Alkaline Phosphatase 72 (39-117) U/L Total Protein 5.5 L (6.5-8.0) g/dL Albumin 3.6 (3.5-5.0) g/dL Radiology Impression Discussion of test interpretation with radiology: I have reviewed the radiologist's reading. Radiologist Impression: INDINGS: LOWER THORAX: Included lung bases are clear. Pleural base calcification right lung base could be sequela of prior asbestos exposure. HEPATOBILIARY: Evaluation of the liver is limited due to lack of contrast. ? GALLBLADDER: Gallbladder unremarkable. SPLEEN: Spleen is normal in size. PANCREAS: No focal mass or ductal dilatation. STOMACH AND GASTROINTESTINAL TRACT: There is a small hiatal hernia the GE junction. Stomach is partially distended and unopacified. Redemonstration of 5 dilated the small bowel loops mid and lower abdomen with a transition zone in the lower pelvis image 70 series of 3, given patient history could be due to adhesions. The distal bowel loops are nondilated. No CT evidence of appendicitis. ADRENALS: No adrenal nodules. KIDNEYS/URETERS: There is a cyst in the right kidney 4.1 cm. No kidney stone or hydronephrosis. Perinephric fat are clear. URINARY BLADDER: Urinary bladder not well evaluated nondistended unopacified. PELVIC VISCERA: Unremarkable PERITONEUM: Redemonstration of hazy mesentery mid abdomen and a few mildly enlarged mesenteric lymph nodes, this is consistent with mesenteric panniculitis, this has not changed from prior exam. LYMPH NODES: Retroperitoneal periaortic lymph nodes normal in size by CT criteria. No bulky adenopathy. VASCULAR:Abdominal aorta normal in size, no aneurysm found. BONES, ABDOMINAL WALL AND SOFT TISSUES: Age-appropriate changes of the spine and skeletal system, no destructive osteolytic or osteosclerotic bone lesion found CT/CT abdomen pelvis wo IV con IMPRESSION: ? *? Redemonstration of dilated small bowel loops proximal mid and lower abdomen with transition zone in the lower pelvis, this is consistent with partial small bowel obstruction, could be due to adhesions, however there is some bowel fullness at the transition zone, Felix image, concerning for possible tumor recurrence. Given patient history, may consider correlation with follow-up PET/CT. ? *? Redemonstration of hazy mesentery and a few mildly enlarged mesenteric lymph nodes, this is consistent with mesenteric panniculitis, this has not changed from prior exam. Nonspecific CT finding, please see below for differential diagnosis. ? *? Other noncritical findings as above. ? Mesenteric panniculitis is a nonspecific finding and can coexistent with malignancy such as extra-abdominal non-Hodgkin lymphoma, breast carcinoma, prostate carcinoma, lung carcinoma, gastrointestinal carcinoma, colorectal carcinoma, melanoma, pancreatic neoplasm among other neoplasms. It also can coexist with benign process such as Crohn's disease, sarcoidosis, liver cirrhosis, colitis, lupus, sclerosing cholangitis, pancreatitis, mesenteritis, retroperitoneal fibrosis. It also could be idiopathic. Recommended clinical assessment and careful exclusion of possible other neoplasms. If no further action taken now, followup CT scan in 6 months advised. ? Reference: [place] Journal of Radiology November 1999, volume 174, #2.. ? Medications Administered Discontinued Medications Generic Name Dose Route Start Last Admin Trade Name Freq PRN Reason Stop Dose Admin Sodium Chloride 1,000 mls @ 999 mls/hr 02/21/23 18:44 02/21/23 19:17 Ns IVCONT 02/21/23 19:44 999 mls/hr .Q1H1M ONE Administration Morphine Sulfate 4 mg 02/21/23 18:44 02/21/23 19:17 Morphine Sulfate 4 Mg/Ml Cartridge IVPUSH 02/21/23 18:45 4 mg ONCE ONE Administration Protocol Ondansetron HCl 4 mg 04/25/23 18:44 02/21/23 19:17 Ondansetron Hcl 4 Mg/2 Ml Vial IVPUSH 02/21/23 18:45 4 mg ONCE ONE Administration Critical Care Time Critical Care Time Critical Care Time: Yes Total Critical Care Time: 60 Attestation: I have personally provided critical care time. Time includes review of lab data, radiology results, discussion with consultants, and monitoring for potential decompensation. Intervention performed as documented. Discharge Plan Discharge Clinical Impression: Partial small bowel obstruction Patient Disposition: Admitted As Inpatient Prescriptions: No Action lactulose [Generlac] 10 gram/15 mL solution 30 ml PO DAILY PRN (Reason: constipation) Qty: 946 0RF cyanocobalamin (vitamin B-12) 1,000 mcg Tablet 1,000 mcg PO DAILY aspirin 81 mg Tablet,Delayed Release (Dr/Ec) 81 mg PO DAILY metoprolol tartrate 25 mg tablet 12.5 mg PO BID 90 Days Qty: 90 1RF rosuvastatin [Crestor] 10 mg tablet 10 mg PO DAILY Qty: 90 3RF
--- NOTE | 2023-02-21 22:12 | PHA.MEDREC ---
Pharmacy Consult ? Medication Reconciliation Pharmacy has completed the medication reconciliation.
[2023-02-21] MEDS: Dextrose 5 % and 0.45 % NaCl 1,000 ML 100 ML IVCONT (22:37)
[2023-02-21 22:39] VITALS: BP 137/57; PULSE 70; RESP 12; O2SAT 93
--- NOTE | 2023-02-22 00:01 | PC.NURSE ---
Pt resting at the bedside in no apparent distress. Breaths are even, regular, and unlabored. VSS. Pending bed assignment. Pt aware of plan of care.
[2023-02-22 00:14] VITALS: BP 129/60; PULSE 58; RESP 17; TEMP 36.4; O2SAT 98
--- NOTE | 2023-02-22 02:05 | PC.NURSE ---
Pt sleeping/resting at the bedside. Reports no pain or discomfort at this time. Breaths are even, regular and unlabored. D5 NS45 running at 100ml/hr. No apparent distress noted. Will continue to monitor.
--- NOTE | 2023-02-22 06:27 | PC.NURSE ---
Lalitha Husain, pts daughter and hcp, called for an update on pts condition. Update provided.
[2023-02-22 07:08] VITALS: BP 143/67; PULSE 67; RESP 16; O2SAT 98
[2023-02-22] MEDS: Dextrose 5 % and 0.45 % NaCl 1,000 ML 100 ML IVCONT ×2 (07:20→18:08)
--- NOTE | 2023-02-22 07:29 | PC.NURSE ---
Pt is alert/oriented. Reports mild 2/10 low abd discomfort. No nausea. Denies pain meds at this time. Skin pwd. New D5 1/2 NS started as ordered. +normoactive bowel sounds x 4 quads, tender to low abd. abd sl firm. resting with eyes closed at this time
--- NOTE | 2023-02-22 07:56 | PC.NURSE ---
Pt out of room for Barium swallow at this time
--- NOTE | 2023-02-22 09:13 | MHC.CM.PN ---
Attempted to meet with patient in regards to discharge planning. Patient not in room. No family present. Will attempt to meet again. Continue to monitor for d/c needs.
--- NOTE | 2023-02-22 10:54 | P.HPGS_ITS ---
History of Present Illness History of Present Illness Date of Service: 02/22/23 <Nayeli Prado PA-C - Last Filed: 02/22/23 14:32> 02/22/23 <Zach Cat MD - Last Filed: 02/22/23 11:18> Chief complaint: SBO <Nayeli Prado PA-C - Last Filed: 02/22/23 14:32> Narrative: Geoffrey Bone is a 87 year old male with PMH significant of colorectal cancer status post resection, hx of small bowel obstructions, diet-controlled diabetes mellitus, prostate cancer, essential hypertension who presented to the ED with complaints of severe, diffuse abd pain. He reports he developed diffuse abdominal discomfort 4 days prior. This was similar to his prior obstructions and he put himself on bowel rest with nothing to eat for 2 days.? He then began a clear liquid diet and developed severe abdominal pain.?The pain has progressively worsened prompting him to seek care. The pain is associated with nausea without vomiting. He had a small bowel movement on the day of presentation.?He has had multiple SBOs with last admission in November of this year which resolved with supportive measures. Work up in the ED included CBC, BMP and LFTs and CT scan abd/pelvis which showed partiall distended stomach is partially distended and dilated loops of small bowel loops with a transition zone in the lower pelvis with distal nondilated bowel loops. This morning, he feels improved. He is undergoing SBFT. <Nayeli Prado PA-C - Last Filed: 02/22/23 14:32> Review of Systems Constitutional: Constitutional: Denies chills, Denies fever(s) and Denies malaise <Nayeli Prado PA-C - Last Filed: 02/22/23 14:32> ENT: Denies dizziness <MARTHA Lopez Last Filed: 02/22/23 14:32> Gastrointestinal: Gastrointestinal: Reports as per HPI and Denies vomiting <MARTHA Lopez Last Filed: 02/22/23 14:32> Genitourinary: Genitourinary: Denies hematuria <Nayeli Prado PA-C - Last Filed: 02/22/23 14:32> Integumentary/Breasts: Skin/Breast: Denies rash <Nayeli Prado PA-C - Last Filed: 02/22/23 14:32> Neurologic: Denies dizziness <Nayeli Prado PA-C - Last Filed: 02/22/23 14:32> [facility] Past Medical History Medical History: Medical History Bladder neck contracture BPH (benign prostatic hyperplasia) Colon cancer Constipation Coronary artery disease Dysuria Erectile dysfunction Essential hypertension GERD (gastroesophageal reflux disease) Hematuria Hyperlipidemia, unspecified Obstructive sleep apnea Overweight (BMI 25.0-29.9) Peripheral vascular disease Prostate cancer Rectal cancer SBO (small bowel obstruction) Small bowel obstruction Type 2 diabetes mellitus with hyperglycemia Urinary incontinence <Nayeli Prado PA-C - Last Filed: 02/22/23 14:32> Family History Family History: Family History Father Pancreatic cancer Mother No problems noted. Brother Liver cancer <MARTHA Lopez Last Filed: 02/22/23 14:32> Surgical History Surgical History: Surgical History History of appendectomy History of bladder surgery (~01/04/18) History of carpal tunnel release History of colectomy History of exploratory laparotomy History of prostate surgery (~2016) <MARTHA Lopez Last Filed: 02/22/23 14:32> Social History Social History: Social History Household Members: Family Housing: House Are you a primary health care marketing manager to a significant other at home: Yes (health care marketing manager for , grand daughter lives with them as well) Do you presently have visiting nurse or other home services: No Alcohol intake: current Alcohol intake frequency: holidays/special occasions only Patient Tobacco Use Status: Former Tobacco user Quit Date: years ago Tobacco use type: Cigar Smoked in Last 30 Days: No e-Cigarette/Vaping Use: Never Used Second Hand Smoke Exposure: No Use of substances other than those prescribed or required for medical reasons: No Advance Directives: Yes Advance Directives on File: Yes Advance Directives Date on File: 09/29/20 Nutrition Risks: No Nutritional Risk service: Yes ([employer]) Current occupational status: retired Cognitive needs: Yes (cane) Hearing needs: Yes Vision needs: Yes <Nayeli Prado PA-C - Last Filed: 02/22/23 14:32> Meds Allergies/Adverse reactions: Allergies Allergy/AdvReac Type Severity Reaction Status Date / Time diphenhydramine AdvReac Intermediate Hallucinati Verified 01/03/23 09:04 [From Benadryl] ons <Nayeli Prado PA-C - Last Filed: 02/22/23 14:32> Active Medications: Current Medications Acetaminophen (Acetaminophen Supp 650 Mg Supp.Rect) 650 mg NC Q6H PRN PRN Reason: Pain, Mild (Pain Scale 1-3) Al Hydroxide/Mg Hydroxide (Magnesium Hydrox/Alum Hydrox 30 Ml Oral.Susp) 30 ml PO Q4H PRN PRN Reason: Heartburn/Nausea Hydromorphone HCl (Hydromorphone Hcl 1 Mg/Ml Syringe) 0.5 mg IVPUSH Q4H PRN; Protocol PRN Reason: Pain, Severe (Pain Scale 7-10) Dextrose/Sodium Chloride (D51/2ns) 1,000 mls @ 100 mls/hr IVCONT .Q10H [facility] Last Admin: 02/22/23 07:20 Dose: 100 mls/hr Ondansetron HCl (Ondansetron Hcl 4 Mg/2 Ml Vial) 4 mg IVPUSH Q8H PRN PRN Reason: Nausea and Vomiting Sodium Chloride (0.9 % Sodium Chloride Flush 3 Ml Syringe) 3 ml IVFLUSH QSHIFT [facility] Last Admin: 02/22/23 07:20 Dose: Not Given Zolpidem Tartrate (Zolpidem Tartrate 5 Mg Tablet) 5 mg PO BEDTIME PRN PRN Reason: Insomnia <Nayeli Prado PA-C - Last Filed: 02/22/23 14:32> Home medications: Home Medications Medication Instructions Recorded Confirmed Last Taken Type aspirin 81 mg tablet,delayed 81 mg PO DAILY 12/01/22 02/21/23 11/30/22 History release cyanocobalamin (vitamin B-12) 1,000 mcg PO DAILY 12/01/22 02/21/23 11/30/22 History 1,000 mcg tablet lactulose 10 gram/15 mL oral 30 ml PO DAILY@1200 PRN 02/21/23 02/21/23 Unknown History solution (Generlac) constipation <Nayeli Prado PA-C Christos Last Filed: 02/22/23 14:32> Physical Exam Vital Signs: Vital Signs: Last Vital Signs Temp 97.5 F 02/22/23 00:14 Pulse 67 02/22/23 07:08 Resp 16 02/22/23 07:08 BP 143/67 H 02/22/23 07:08 Pulse Ox 98 02/22/23 07:08 O2 Del Method Room Air 02/22/23 07:08 BMI result Body Mass Index 22.9 <Nayeli Prado PA-C Christos Last Filed: 02/22/23 14:32> Const: General: comfortable, no acute distress and alert <Nayeli Prado PA-C Last Filed: 02/22/23 14:32> Orientation/consciousness: patient oriented x3 <Nayeli Prado PA-C Last Filed: 02/22/23 14:32> Eyes: Sclerae: sclerae normal <Nayeli Prado PA-C Last Filed: 02/22/23 14:32> Resp: Effort & Inspection: normal respiratory effort <Nayeli Prado PA-C Last Filed: 02/22/23 14:32> Cardio: Rate: regular rate <Nayeli Prado PA-C Last Filed: 02/22/23 14:32> GI: Inspection: Yes distended (mildly) <Nayeli Prado PA-C Last Filed: 02/22/23 14:32> Palpation (GI): Soft to palpation, Tenderness to palpation present (GI) (mild diffuse, slightly increased in RLQ), no guarding and not rigid <MARTHA Lopez Last Filed: 02/22/23 14:32> Percussion: Yes normal to percussion <Nayeli Prado PA-C Last Filed: 04/26/23 14:32> Skin: General skin exam: no rashes or lesions noted <MARTHA Lopez Last Filed: 02/22/23 14:32> Neuro: General: patient oriented x3 and moves all extremities <MARTHA Lopez Last Filed: 02/22/23 14:32> Results Results Labs: Short CBC 02/21/23 Range/Units 20:26 WBC 8.8 (4.8-10.8) X10*3/uL Hgb 13.8 L (14.0-18.0) g/dl Hct 41.2 L (42.0-52.0) % Plt Count 216 (160-400) X10*3/uL BMP 02/21/23 21:04 Sodium 140 Potassium 4.8 D Chloride 111 H Carbon Dioxide 23 BUN 12 Creatinine 0.77 Calcium 8.4 Liver Function 02/21/23 Range/Units 21:04 Total Bilirubin 0.6 (0.0-1.0) mg/dL Direct Bilirubin 0.2 (0.0-0.5) mg/dL AST 16 (5-37) U/L ALT 18 (0-40) U/L Alkaline Phosphatase 72 (39-117) U/L Albumin 3.6 (3.5-5.0) g/dL <MARTHA Lopez Last Filed: 02/22/23 14:32> Assessment and Plan (1) Partial small bowel obstruction: Status: Acute <MARTHA Lopez Last Filed: 02/22/23 14:32> 87 year old male who presented with abdominal pain found to have dilated SB loops on CT consistent with SBO. He was admitted to the surgical service for further treatment of the SBO, likely partial as he has air in the rectum. He feels improved and therefore will continue nonoperative measures of bowel rest, IVF, pain control as needed. SBFT today. Encouraged OOB/ambulation. Further plan dependent on patient's clinical course. Patient comfortable with plan. <MARTHA Lopez Last Filed: 02/22/23 14:32> Time Spent With Patient Time: Total time managing care of this patient today ____ minutes. <MARTHA Lopez Last Filed: 02/22/23 14:32> Quality Stroke Does the patient have a stroke diagnosis?: No <Zach Cat MD - Last Filed: 02/22/23 11:18> VTE Prior VTE?: No <Zach Cat MD - Last Filed: 02/22/23 11:18> VTE Risk Level:: Surgical - low <Nayeli Prado PA-C - Last Filed: 02/22/23 14:32> VTE Device Contraindication: Treatment Not Indicated <Nayeli Prado PA-C - Last Filed: 02/22/23 14:32> VTE Drug Contraindication: Treatment Not Indicated <Nayeli Prado PA-C - Last Filed: 02/22/23 14:32> Procedures Date of Service Date of Service: 02/22/23 <Zach Cat MD - Last Filed: 02/22/23 11:18>
[2023-02-22 12:35] VITALS: BP 143/70; PULSE 61; RESP 16; O2SAT 98
--- NOTE | 2023-02-22 14:21 | PC.NURSE ---
report to overflow
[2023-02-22 16:00] VITALS: BP 173/77; PULSE 71; RESP 17; TEMP 36.6; O2SAT 100
[2023-02-22] MEDS: HYDROmorphone HCl 1 MG/ML SYRINGE 0.5 MG IVPUSH (16:31)
[2023-02-22 19:37] VITALS: BP 154/73; PULSE 65; RESP 18; TEMP 36.3; O2SAT 99
[2023-02-22] MEDS: Metoprolol Tartrate 12.5 MG HALFTAB PO (20:13)
[2023-02-23] MEDS: Dextrose 5 % and 0.45 % NaCl 1,000 ML 100 ML IVCONT (03:27)
[2023-02-23 03:28] VITALS: BP 113/61; PULSE 68; RESP 14; TEMP 36.6; O2SAT 95
[2023-02-23 08:00] VITALS: BP 125/64; PULSE 64; RESP 18; TEMP 36.2; O2SAT 95
--- NOTE | 2023-02-23 08:18 | PM.PNGS ---
Subjective Subjective Date of Service: 02/23/23 <Nayeli Prado PA-C - Last Filed: 02/23/23 08:22> 02/23/23 <Zach Cat MD - Last Filed: 02/23/23 10:40> Interval history: Feels ok this morning, some soreness but improved. Passing some flatus. Denies nausea/vomiting. <Nayeli Prado PA-C - Last Filed: 02/23/23 08:22> Physical Exam Vital Signs: Vital Signs: Last Vital Signs Temp 97.9 F 02/23/23 03:28 Pulse 68 02/23/23 03:28 Resp 14 02/23/23 03:28 BP 113/61 02/23/23 03:28 Pulse Ox 95 02/23/23 03:28 O2 Del Method Room Air 02/23/23 03:28 BMI result Body Mass Index 22.9 <Nayeli Prado PA-C - Last Filed: 02/23/23 08:22> Const: General: comfortable, no acute distress and alert <Nayeli Prado PA-C - Last Filed: 02/23/23 08:22> Orientation/consciousness: patient oriented x3 <MARTHA Lopez Last Filed: 02/23/23 08:22> Resp: Effort & Inspection: normal respiratory effort <MARTHA Lopez Last Filed: 02/23/23 08:22> GI: Inspection: No distended <Nayeli Prado PA-C - Last Filed: 02/23/23 08:22> Palpation (GI): Soft to palpation, Tenderness to palpation present (GI) (mild RLQ tenderness), no guarding and not rigid <Nayeli Prado PA-C - Last Filed: 02/23/23 08:22> Skin: General skin exam: no rashes or lesions noted <MARTHA Lopez Last Filed: 02/23/23 08:22> Neuro: General: patient oriented x3 and moves all extremities <MARTHA Lopez Last Filed: 02/23/23 08:22> Objective Data Active Medications Acetaminophen (Acetaminophen 325 Mg Tablet) 650 mg PO Q6H PRN PRN Reason: Pain, Mild (Pain Scale 1-3) Al Hydroxide/Mg Hydroxide (Magnesium Hydrox/Alum Hydrox 30 Ml Oral.Susp) 30 ml PO Q4H PRN PRN Reason: Heartburn/Nausea Hydromorphone HCl (Hydromorphone Hcl 1 Mg/Ml Syringe) 0.5 mg IVPUSH Q4H PRN; Protocol PRN Reason: Pain, Severe (Pain Scale 7-10) Last Admin: 02/22/23 16:31 Dose: 0.5 mg Documented By: AKIN Dextrose/Sodium Chloride (D51/2ns) 1,000 mls @ 100 mls/hr IVCONT .Q10H [facility] Last Admin: 02/23/23 03:27 Dose: 100 mls/hr Documented By: BARBIE Metoprolol Tartrate (Metoprolol Tartrate 12.5 Mg Halftab) 12.5 mg PO BID [facility]; Protocol Last Admin: 02/22/23 20:13 Dose: 12.5 mg Documented By: BARBIE Ondansetron HCl (Ondansetron Hcl 4 Mg/2 Ml Vial) 4 mg IVPUSH Q8H PRN PRN Reason: Nausea and Vomiting Oxycodone HCl (Oxycodone Hcl Immed Release 5 Mg Tablet) 5 mg PO Q4H PRN PRN Reason: Pain, Moderate (Pain Scale 4-6 Sodium Chloride (0.9 % Sodium Chloride Flush 3 Ml Syringe) 3 ml IVFLUSH QSHIFT [facility] Last Admin: 02/23/23 07:08 Dose: Not Given Documented By: DAYAMI Non-Admin Reason: IV Running Zolpidem Tartrate (Zolpidem Tartrate 5 Mg Tablet) 5 mg PO BEDTIME PRN PRN Reason: Insomnia <Nayeli Prado PA-C - Last Filed: 02/23/23 08:22> Labs CBC & Chem 7: 02/21/23 20:26 02/21/23 21:04 <Nayeli Prado PA-C - Last Filed: 02/23/23 08:22> Microbiology Microbiology Results: Microbiology 02/21/23 20:26 Blood Culture - Preliminary Blood - Venous No growth after 24 hours. 02/21/23 20:26 Blood Culture - Preliminary Blood - Venous No growth after 24 hours. <Nayeli Prado PA-C - Last Filed: 02/23/23 08:22> Procedures Date of Service Date of Service: 02/23/23 <Nayeli Prado PA-C - Last Filed: 02/23/23 08:22> Progress Note: A&P Assessment and plan (1) Partial small bowel obstruction: Status: Acute <MARTHA Lopez Last Filed: 02/23/23 08:22> Assessment and Plan: 87 year old male with PMH significant of colorectal cancer status post resection, hx of small bowel obstructions, diet-controlled diabetes mellitus, prostate cancer, essential hypertension admitted with PSBO. SBFT yesterday showed contrast in colon. He now has some evidence of return of GI function. Will advance to clear liquids and further as tolerated. Encouraged OOB/ambulation. Patient comfortable with plan. <Nayeli Prado PA-C - Last Filed: 02/23/23 08:22> 87 year old male with PMH significant of colorectal cancer status post resection, hx of small bowel obstructions, diet-controlled diabetes mellitus, prostate cancer, essential hypertension admitted with PSBO. SBFT yesterday showed contrast in colon. He now has some evidence of return of GI function. Will advance to clear liquids and further as tolerated. Encouraged OOB/ambulation. Patient comfortable with plan. As noted above ; advanced diet as tolerated, out of bed, incentive spirometry <Zach Cat MD - Last Filed: 02/23/23 10:40> Time Spent With Patient Time: Total time managing care of this patient today ____ minutes. <Nayeli Prado PA-C - Last Filed: 02/23/23 08:22> Quality Stroke Does the patient have a stroke diagnosis?: No <MARTHA Lopez Last Filed: 02/23/23 08:22> VTE Prior VTE?: No <MARTHA Lopez Last Filed: 02/23/23 08:22> VTE Risk Level:: Surgical - low <MARTHA Lopez Last Filed: 02/23/23 08:22> VTE Device Contraindication: Treatment Not Indicated <MARTHA Lopez Last Filed: 02/23/23 08:22> VTE Drug Contraindication: Treatment Not Indicated <Nayeli Prado PA-C - Last Filed: 02/23/23 08:22>
[2023-02-23] MEDS: Metoprolol Tartrate 12.5 MG HALFTAB PO ×2 (08:38→20:55)
--- NOTE | 2023-02-23 15:36 | MHC.CM.PN ---
PT REPORTS HE LIVES WITH HIS , HIS GRAND DAUGHTER AND HIS GREAT GRAND DAUGHTER HE IS INDEPENDENT WITH CARE, USES A CANE, AND HAS NO SERVICES HE HAS A HCP ON FILE HE IS COIVD VAX AND BOOSTED PCP: SUNG KARIMI IMM DELIVERED CURRENT DC PLAN IS HOME WITH NO SERVICES [facility]
[2023-02-23 15:47] VITALS: BP 162/73; PULSE 61; RESP 16; TEMP 36; O2SAT 92
[2023-02-23 19:52] VITALS: BP 130/62; PULSE 56; RESP 18; TEMP 36.5; O2SAT 96
[2023-02-23] MEDS: 0.9 % Sodium Chloride Flush 3 ML SYRINGE IVFLUSH (20:57)
[2023-02-24 03:36] VITALS: BP 140/72; PULSE 59; RESP 18; TEMP 36.3; O2SAT 95
--- NOTE | 2023-02-24 07:50 | PM.PNGS ---
Subjective Subjective Date of Service: 02/24/23 <Nayeli Prado PA-C - Last Filed: 02/24/23 07:54> 02/24/23 <Zach Cat MD - Last Filed: 02/24/23 08:18> Interval history: Feels well this morning. Denies abd pain. Tolerating solid diet without nausea or vomiting. Passing flatus but no BM. On lactulose, stool softener daily at home. <Nayeli Prado PA-C - Last Filed: 02/24/23 07:54> Physical Exam Vital Signs: Vital Signs: Last Vital Signs Temp 97.3 F 02/24/23 03:36 Pulse 59 02/24/23 03:36 Resp 18 02/24/23 03:36 BP 140/72 H 02/24/23 03:36 Pulse Ox 95 02/24/23 03:36 O2 Del Method Room Air 02/24/23 03:36 BMI result Body Mass Index 22.9 <Nayeli Prado PA-C - Last Filed: 02/24/23 07:54> Const: General: comfortable, no acute distress and alert <Nayeli Prado PA-C - Last Filed: 02/24/23 07:54> Orientation/consciousness: patient oriented x3 <MARTHA Lopez Last Filed: 02/24/23 07:54> Resp: Effort & Inspection: normal respiratory effort <Nayeli Prado PA-C - Last Filed: 02/24/23 07:54> GI: Inspection: No distended <MARTHA Lopez Last Filed: 02/24/23 07:54> Palpation (GI): Soft to palpation, nontender and no guarding <MARTHA Lopez Last Filed: 02/24/23 07:54> Skin: General skin exam: no rashes or lesions noted <MARTHA Lopez Last Filed: 02/24/23 07:54> Neuro: General: patient oriented x3 and moves all extremities <MARTHA Lopez Last Filed: 02/24/23 07:54> Objective Data Active Medications Acetaminophen (Acetaminophen 325 Mg Tablet) 650 mg PO Q6H PRN PRN Reason: Pain, Mild (Pain Scale 1-3) Al Hydroxide/Mg Hydroxide (Magnesium Hydrox/Alum Hydrox 30 Ml Oral.Susp) 30 ml PO Q4H PRN PRN Reason: Heartburn/Nausea Hydromorphone HCl (Hydromorphone Hcl 1 Mg/Ml Syringe) 0.5 mg IVPUSH Q4H PRN; Protocol PRN Reason: Pain, Severe (Pain Scale 7-10) Last Admin: 02/22/23 16:31 Dose: 0.5 mg Documented By: AKIN Metoprolol Tartrate (Metoprolol Tartrate 12.5 Mg Halftab) 12.5 mg PO BID [facility]; Protocol Last Admin: 02/23/23 20:55 Dose: 12.5 mg Documented By: JESUS Ondansetron HCl (Ondansetron Hcl 4 Mg/2 Ml Vial) 4 mg IVPUSH Q8H PRN PRN Reason: Nausea and Vomiting Oxycodone HCl (Oxycodone Hcl Immed Release 5 Mg Tablet) 5 mg PO Q4H PRN PRN Reason: Pain, Moderate (Pain Scale 4-6 Sodium Chloride (0.9 % Sodium Chloride Flush 3 Ml Syringe) [facility] Last Admin: 02/23/23 20:57 Dose: 3 ml Documented By: JESUS Zolpidem Tartrate (Zolpidem Tartrate 5 Mg Tablet) 5 mg PO BEDTIME PRN PRN Reason: Insomnia <Nayeli Prado PA-C - Last Filed: 02/24/23 07:54> Labs CBC & Chem 7: 02/21/23 20:26 02/21/23 21:04 <Nayeli Prado PA-C - Last Filed: 02/24/23 07:54> Microbiology Microbiology Results: Microbiology 02/21/23 20:26 Blood Culture - Preliminary Blood - Venous No growth after 48 hours. 02/21/23 20:26 Blood Culture - Preliminary Blood - Venous No growth after 48 hours. <Nayeli Prado PA-C - Last Filed: 02/24/23 07:54> Procedures Date of Service Date of Service: 02/24/23 <Nayeli Prado PA-C - Last Filed: 02/24/23 07:54> Progress Note: A&P Assessment and plan (1) Partial small bowel obstruction: Status: Acute <Nayeli Prado PA-C - Last Filed: 02/24/23 07:54> Assessment and Plan: 87 year old male with PMH significant of colorectal cancer status post resection, hx of small bowel obstructions, diet-controlled diabetes mellitus, prostate cancer, essential hypertension admitted with PSBO. SBFT obtained and showed contrast in colon. Doing well and tolerating diet without recurrent abd pain, nausea or vomiting. Passing flatus. Abd remains very benign. Will resume home bowel regimen of lactulose and colace. Will reassess later this morning for discharge to home. patient comfortable with plan. <Nayeli Prado PA-C - Last Filed: 02/24/23 07:54> 87 year old male with PMH significant of colorectal cancer status post resection, hx of small bowel obstructions, diet-controlled diabetes mellitus, prostate cancer, essential hypertension admitted with PSBO. SBFT obtained and showed contrast in colon. Doing well and tolerating diet without recurrent abd pain, nausea or vomiting. Passing flatus. Abd remains very benign. Will resume home bowel regimen of lactulose and colace. Will reassess later this morning for discharge to home. patient comfortable with plan. . Continued improvement. Advance diet as tolerated, ambulate, consider DC home later today if all goes well. <Zach Cat MD - Last Filed: 02/24/23 08:18> Time Spent With Patient Time: Total time managing care of this patient today ____ minutes. <Nayeli Prado PA-C - Last Filed: 02/24/23 07:54> Quality Stroke Does the patient have a stroke diagnosis?: No <Nayeli Prado PA-C - Last Filed: 02/24/23 07:54> VTE Prior VTE?: No <Nayeli Prado PA-C - Last Filed: 02/24/23 07:54> VTE Risk Level:: Surgical - low <Nayeil Prado PA-C - Last Filed: 02/24/23 07:54> VTE Device Contraindication: Treatment Not Indicated <Nayeli Prado PA-C - Last Filed: 02/24/23 07:54> VTE Drug Contraindication: Treatment Not Indicated <Nayeli Prado PA-C - Last Filed: 02/24/23 07:54>
[2023-02-24 08:00] VITALS: BP 152/72; PULSE 62; RESP 18; TEMP 36.3; O2SAT 97
[2023-02-24] MEDS: Metoprolol Tartrate 12.5 MG HALFTAB PO ×2 (08:30→21:51)
[2023-02-24] MEDS: 0.9 % Sodium Chloride Flush 3 ML SYRINGE IVFLUSH ×3 (08:31→21:51)
[2023-02-24] MEDS: Docusate Sodium 100 MG CAPSULE PO (08:31)
[2023-02-24] MEDS: Lactulose 20 GM/30 ML SOLUTION 30 GM PO ×2 (12:56→14:42)
[2023-02-24 15:18] VITALS: BP 142/67; PULSE 52; RESP 18; TEMP 36.3; O2SAT 98
[2023-02-24 20:00] VITALS: BP 150/62; PULSE 61; RESP 18; TEMP 36.6; O2SAT 94
[2023-02-25 03:15] VITALS: BP 132/64; PULSE 61; RESP 18; TEMP 36.9; O2SAT 96
[2023-02-25 08:00] VITALS: BP 156/72; PULSE 60; RESP 17; TEMP 36; O2SAT 96
[2023-02-25] MEDS: Metoprolol Tartrate 12.5 MG HALFTAB PO (08:09)
[2023-02-25] MEDS: Docusate Sodium 100 MG CAPSULE PO (08:09)
[2023-02-25] MEDS: Lactulose 20 GM/30 ML SOLUTION 30 GM PO (08:10)
[2023-02-25] MEDS: 0.9 % Sodium Chloride Flush 3 ML SYRINGE IVFLUSH (08:10)
--- NOTE | 2023-02-25 11:26 | MHC.CM.PN ---
HOME - SELF CARE FAMILY TO LICENSED GUIDE AWARE
--- NOTE | 2023-02-28 09:12 | PM.DS ---
DS: Providers Provider Date of Service: 02/25/23 Date of admission: 02/21/23 21:51 Date of discharge: 02/25/23 Primary care physician: Pro Nunn MD Attending physician on admission: Zach Cat Consults: 02/21/23 21:49 Consult to General Surgery Routine Consulting Provider: [facility] General Surgeons Reason for consultation: sbo. possible bowel tumor reocurrence Has provider been notified: Yes DS: Diagnosis Discharge Diagnosis (1) Partial small bowel obstruction: Status: Resolved DS: Summary Hospital Course Hospital Course: BRIEF HPI: Geoffrey Bone is a 87 year old male with PMH significant of colorectal cancer status post resection, hx of small bowel obstructions, diet-controlled diabetes mellitus, prostate cancer, essential hypertension who presented to the ED with complaints of severe, diffuse abd pain. He reports he developed diffuse abdominal discomfort 4 days prior. This was similar to his prior obstructions and he put himself on bowel rest with nothing to eat for 2 days. He then began a clear liquid diet and developed severe abdominal pain. The pain has progressively worsened prompting him to seek care. The pain is associated with nausea without vomiting. He had a small bowel movement on the day of presentation. He has had multiple SBOs with last admission in November of this year which resolved with supportive measures. Work up in the ED included CBC, BMP and LFTs and CT scan abd/pelvis which showed partiall distended stomach is partially distended and dilated loops of small bowel loops with a transition zone in the lower pelvis with distal nondilated bowel loops. HOSPITAL COURSE: He was admitted to the surgical service for further treatment of the SBO. He was kept NPO, on IVF and on analgesics PRN. He underwent a SBFT which showed contrast in the colon. His symptoms gradually improved and resolved his diet was advanced to clear liquids and then solid diet as tolerated. His home bowel regimen was resumed. He had a bowel movement. On the day of discharge, he was tolerating a solid diet without N/V or abdominal pain and had good GI function. His abdomen was soft and nontender. He was discharged to home on 02/25/23 in stable condition. Status at Discharge Functional status at discharge: independent ambulation Overall status at discharge: patient is back to baseline Time Spent with Patient Time attestation: Total time managing care of this patient today ____ minutes. Discharge coordination time: Less than 30 minutes Quality: Safe Use of Opioids Does Pt have an Active Cancer Diagnosis on the Problem List?: No Quality: Stroke Does the patient have a stroke diagnosis?: No Physical Exam Vital Signs: Vital Signs: Last Vital Signs Temp 96.8 F 02/25/23 08:00 Pulse 60 02/25/23 08:00 Resp 17 02/25/23 08:00 BP 156/72 H 02/25/23 08:00 Pulse Ox 96 02/25/23 08:00 O2 Del Method Room Air 02/25/23 08:00 BMI result Body Mass Index 22.9 Const: General: comfortable, no acute distress and alert Orientation/consciousness: patient oriented x3 Resp: Effort & Inspection: normal respiratory effort GI: Inspection: No distended Palpation (GI): Soft to palpation and nontender Skin: General skin exam: no rashes or lesions noted Neuro: General: patient oriented x3 DS: Data Data Completed and Pending Completed studies during hospitalization [Text1]: Procedures Dilation of Bladder Neck, Via Natural or Artificial Opening Endoscopic (09/30/20) Drainage of Bladder with Drainage Device, Via Natural or Artificial Opening Endoscopic (09/30/20) Insertion of Infusion Device into Superior Vena Cava, Percutaneous Approach (08/27/20) Ultrasonography of Superior Vena Cava, Guidance (08/27/20) Discharge Plan Discharge Anticipated Discharge Date/Time: 02/24/23 12:25 Patient Disposition: Home, Self-Care Discharge Diagnosis: PSBO Referrals: Po,Pro Adame MD [Primary Care Provider] - 1 Week Discharge Medications: Continued cyanocobalamin (vitamin B-12) 1,000 mcg Tablet 1,000 mcg PO DAILY aspirin 81 mg Tablet,Delayed Release (Dr/Ec) 81 mg PO DAILY lactulose [Generlac] 10 gram/15 mL solution 30 ml PO DAILY@1200 PRN (Reason: constipation) metoprolol tartrate 25 mg tablet 12.5 mg PO BID 90 Days Qty: 90 1RF rosuvastatin [Crestor] 10 mg tablet 10 mg PO DAILY Qty: 90 3RF Discharge Orders: Discharge Order (Routine); Ordered 02/25/23 Ordered By: Zach Cat Diet: Advance to usual diet Activity on Discharge: As tolerated Stand Alone Forms: Patient Portal Discharge page Activity Restrictions/Additional Instructions: Follow up with your PCP. Call Your Doctor or Return to ED if: ? ? -Your temperature exceeds 101.5? F? ? ? -You experience excessive abdominal pain or distention ? ? -You have an unexpected reaction to medication ? ? -You experience continued vomiting/nausea Care Plan Goals: Return to baseline health. Health Concerns: hx of colorectal CA hx of SBOs Plan of Treatment: supportive f/u with PCP Assessment: Improved Discharge Date/Time: 02/25/23 12:59
== END 2023-02-25 12:59 | disposition home or self-care (01) | DRG 390 ==
LOC: HO.ED 21:49 → HO.EDOVER 22:01 → HO.S3 02-22 15:22
PROVIDERS: Admitting Provider Surgery; Emergency Provider Emergency Medicine; PCP Internal Medicine; Visit Provider Surgery
DX: K56.600 Partial intestinal obstruction, unspecified as to cause (principal); I10 Essential (primary) hypertension; E11.9 Type 2 diabetes mellitus without complications; G47.33 Obstructive sleep apnea (adult) (pediatric); Z85.038 Personal history of other malignant neoplasm of large intestine; Z85.46 Personal history of malignant neoplasm of prostate; Z98.0 Intestinal bypass and anastomosis status; Z79.82 Long term (current) use of aspirin; Z79.899 Other long term (current) drug therapy
CPT/HCPCS: 36415; 74176; 74230; 74250; 80048; 80076; 83605; 83735; 85025; 85610; 87040; 93005; 99285; J1170; J2270; J2405

== ENCOUNTER 2023-04-04 12:43 | Inpatient (IN) | payer MEDICARE, OTHER, SELFPAY ==
--- NOTE | ~2023-04-04 | XR_ITS ---
EXAMINATION: XR CHEST CLINICAL INFORMATION: Shortness of breath. COMPARISON: 12/01/2022 chest radiograph. TECHNIQUE: Frontal view of the chest was obtained. FINDINGS: Coarse pleural calcifications are again seen bilaterally without significant change. The lungs are otherwise clear. The heart and mediastinal structures are unremarkable. XR/XR chest 1V IMPRESSION: 1. No acute cardiopulmonary process. 2. Coarse pleural calcifications bilaterally without significant change.
[2023-04-04 12:53] VITALS: BP 165/64; PULSE 84; RESP 20; TEMP 38.4; O2SAT 96; BMI 22.7
[2023-04-04 13:04] VITALS: BP 165/64; PULSE 84; RESP 20; TEMP 38.4; O2SAT 96
--- NOTE | 2023-04-04 13:06 | PC.NURSE ---
Pt. on ekg monitor tech at this time.
--- NOTE | 2023-04-04 13:30 | ECG_ITS ---
Test Reason : DYSPNEA Blood Pressure : / mmHG Vent. Rate : 081 BPM Atrial Rate : 081 BPM P-R Int : 220 ms QRS Dur : 074 ms QT Int : 376 ms P-R-T Axes : 029 011 044 degrees QTc Int : 436 ms Sinus rhythm with 1st degree A-V block with frequent Premature ventricular complexes Otherwise normal ECG When compared with ECG of 21-FEB-2023 19:53, Premature ventricular complexes are now Present Nonspecific T wave abnormality now evident in Lateral leads Referred By: Loly Naik Electronically Signed By:Jairo Andrew
--- NOTE | 2023-04-04 13:48 | ED_ITS ---
HPI - Fever General Chief Complaint: Dyspnea Stated Complaint: S/O CHILLS/HOT FLASHES PER EMS Time Seen by Provider: 04/04/23 13:29 Source: patient and old records reviewed Mode of arrival: ambulatory Limitations: no limitations History of Present Illness HPI Narrative: 88 yo male with PMH of GERD, TORRES, CAD, DM, urinary retention does cath at home, UTI hx of proteus in the past S to Ceftriaxone (bacteremic as well) here with c/o not feeling well this AM - myalgias, chills and thought his breathing was fast. had a hard time self cath yesterday but able to today. no cough/sputum. Has small rash on R ring finger. He has had UTI in the past. No tick bites, no neck pain. no n/v/d or abdominal pain MD elicited complaint: fever, malaise and weakness Pertinent past history: other (self cath) Onset (ago): day(s) (started this AM) Context: other (played golf was okay, no tick bites has small cut on hand, had a hard time straight catheterizing) Exacerbating factors: nothing Relieving factors: nothing Associated symptoms: chills, myalgias, shortness of breath and rash Treatments prior to arrival fever: aspirin Related Data Home Medications Medication Instructions Recorded Confirmed aspirin 81 mg tablet,delayed 81 mg PO DAILY 12/01/22 03/24/23 release cyanocobalamin (vitamin B-12) 1,000 mcg PO DAILY 12/01/22 03/24/23 1,000 mcg tablet Previous Rx's Medication Instructions Recorded metoprolol tartrate 25 mg tablet 12.5 mg PO BID 90 days #90 tabs 04/22/22 rosuvastatin 10 mg tablet (Crestor) 10 mg PO DAILY #90 tabs 11/15/22 lactulose 10 gram/15 mL oral 30 ml PO DAILY PRN for 03/23/23 solution constipation #946 mL Allergies Allergy/AdvReac Type Severity Reaction Status Date / Time diphenhydramine AdvReac Intermediate Hallucinati Verified 03/24/23 10:19 [From Benadryl] ons Review of Systems Review of Systems: Constitutional : pos Fever, pos Chills, pos Fatigue ENT/Mouth : No sore throat, No Rhinorrhea Eyes: No Eye Pain, No Swelling, No Redness Cardiovascular : No Chest Pain, pos SOB, No Dyspnea on Exertion Respiratory : No Cough, No Sputum Gastrointestinal : No Nausea, No Vomiting, No Diarrhea, No abdominal Pain Genitourinary : No Dysuria, No Urinary Frequency, No Hematuria, Musculoskeletal : No joint pain, posMyalgias, No Joint Swelling Skin : No Skin Lesions, No rash Neuro : pos Weakness, No Numbness, No Dizziness, positive Headache Psych : No Anxiety/Panic, No Depression Heme/Lymph: No Bruising, No Bleeding,No Lymphadenopathy Endocrine : No Polyuria, No Polydipsia All other systems reviewed and are negative [facility] Past Medical History Attestation statement: The following information was validated with the patient. Source: old records reviewed Medical History Bladder neck contracture BPH (benign prostatic hyperplasia) Colon cancer Constipation Coronary artery disease Dysuria Erectile dysfunction Essential hypertension GERD (gastroesophageal reflux disease) Hematuria Hyperlipidemia, unspecified Obstructive sleep apnea Overweight (BMI 25.0-29.9) Peripheral vascular disease Prostate cancer Rectal cancer Rectal cancer SBO (small bowel obstruction) Small bowel obstruction Type 2 diabetes mellitus with hyperglycemia Urinary incontinence Surgical History History of appendectomy History of bladder surgery (~01/04/18) History of carpal tunnel release History of colectomy History of exploratory laparotomy History of prostate surgery (~2016) Family History Family History Father Pancreatic cancer Mother No problems noted. Brother Liver cancer Social History Social History Household Members: Family Household Members Other:: granddaughter Housing: House Are you a primary rn intensive care unit to a significant other at home: Yes (rn intensive care unit for , grand daughter lives with them as well) Do you presently have visiting nurse or other home services: No Alcohol intake: never Patient Tobacco Use Status: Former Tobacco user Quit Date: years ago Tobacco use type: Cigar Smoked in Last 30 Days: No e-Cigarette/Vaping Use: Never Used Second Hand Smoke Exposure: No Use of substances other than those prescribed or required for medical reasons: No Advance Directives: Yes Advance Directives on File: Yes Advance Directives Date on File: 12/01/20 service: Yes ([employer]) Current occupational status: retired Cognitive needs: Yes (cane) Hearing needs: Yes Vision needs: Yes Physical Exam Vital Signs: Vital Signs: Last Vital Signs Temp 99.7 F 04/04/23 14:56 Pulse 79 04/04/23 14:56 Resp 24 H 04/04/23 14:56 BP 98/45 L 04/04/23 14:56 Pulse Ox 96 04/04/23 14:56 O2 Del Method Room Air 04/04/23 14:56 BMI result Body Mass Index 22.7 Appearance: Alert. Oriented X3. No acute distress. anxious Eyes: Pupils equal, round and reactive to light. ENT: Pharynx normal. Neck: Normal inspection. Neck supple. CVS: Normal heart rate and rhythm. Pulses normal. Respiratory: No respiratory distress. Breath sounds normal. Abdomen: Soft and non-tender. Skin: Skin warm and dry. Normal skin color. Normal skin turgor. Extremities: No lower extremity edema. R hand ring finger small abrasions with mild surrounding erythema and edema no extension no fluctuance full ROM of finger Neuro: Oriented X 3. No motor deficit. No sensory deficit. Course Course Course Narrative: I think given fevers, rigors, prior bacteremia tachypnea the patient should be admitted hx of proteus in the past Medications Administered Discontinued Medications Generic Name Dose Route Start Last Admin Trade Name Milesq PRN Reason Stop Dose Admin Acetaminophen 975 mg 04/04/23 13:36 04/04/23 13:59 Acetaminophen 325 Mg Tablet PO 04/04/23 13:37 975 mg ONCE ONE Administration Ceftriaxone Sodium 1 gm/ 50 mls @ 100 mls/hr 04/04/23 13:41 04/04/23 14:46 Sodium Chloride IV 04/04/23 14:10 Infused ONCE ONE Infusion Medical Decision Making Medical Decision Making MDM Narrative: 88 yo male with PMH of GERD, TORRES, CAD, DM, urinary retention does cath at home, UTI hx of proteus in the past S to Ceftriaxone (bacteremic as well) - he comes in with chills, fevers and not feeling well. He denies any cough/sputum production. Has small rash on R ring finger but no signs of tendon involvement and no abscess. He had a hard time catheterizing yesterday hx of prior UTI at this time will need labs, cultures, lactic acid, tylenol and empiric ceftriaxone based off prior cultures. Differential Diagnosis Differential Diagnoses: The differential diagnosis associated with the presentation includes UTI, cellulitis, pneumonia Admission/Observation Consideration of admission/observation: Escalation of care including a dmission/observation considered Lab Data MDM Lab Attestation statement: I reviewed the patient's lab results. 04/04/23 13:39 04/04/23 13:39 Labs: Lab Results 04/04/23 04/04/23 04/04/23 Range/Units 13:39 13:39 13:39 WBC 13.6 H (4.8-10.8) X10*3/uL RBC 4.61 (4.60-5.80) X10*6/uL Hgb 13.6 L (14.0-18.0) g/dl Hct 39.8 L (42.0-52.0) % MCV 86.3 (80.0-98.0) fL MCH 29.5 (27.0-33.0) pg MCHC 34.2 (31.0-36.0) g/dl RDW 12.9 (11.0-16.0) % Plt Count 214 (160-400) X10*3/uL MPV 10.0 (9.4-12.4) fL Immature Gran % (Auto) 0.4 (0.0-0.4) % Neut % (Auto) 83.5 H (45-73) % Lymph % (Auto) 9.5 L (20-40) % Thomas % (Auto) 5.8 (2-11) % Eos % (Auto) 0.6 (0-4) % Baso % (Auto) 0.2 (0-2) % Lymph # (Auto) 1.3 (1.2-4.9) X10*3/uL Thomas # (Auto) 0.8 (0.1-1.2) X10*3/uL Eos # (Auto) 0.1 (0.0-0.4) X10*3/uL Baso # (Auto) 0.0 (0.0-0.2) X10*3/uL Abs Immat Gran (auto) 0.06 H (0.00-0.03) X10*3/uL Absolute Neuts (auto) 11.4 H (2.0-8.3) x10*3/uL Absolute Nucleated RBC 0.000 (0.0-0.012) X10*3/uL Nucleated RBC % (auto) 0.0 (0.0-0.2) /100WBC Sodium 138 (135-145) mmol/L Potassium 4.6 (3.3-5.1) mmol/L Chloride 110 H (96-108) mmol/L Carbon Dioxide 19 L (22-29) mmol/L Anion Gap 14 (12-20) BUN 16 (9-16) mg/dL Creatinine 0.75 (0.5-1.4) mg/dL Estim Creat Clear Calc 78.7 Estimated GFR > 60 Random Glucose 117 H (60-115) mg/dL Lactic Acid (0.5-2.0) mmol/L Calcium 9.1 D (8.4-10.2) mg/dL Total Bilirubin 0.9 (0.0-1.0) mg/dL Direct Bilirubin 0.2 (0.0-0.5) mg/dL AST 23 (5-37) U/L ALT 15 (0-40) U/L Alkaline Phosphatase 70 (39-117) U/L Troponin I High Sens 13.9 (<3.5-35.0) ng/L Total Protein 6.4 L (6.5-8.0) g/dL Albumin 3.8 (3.5-5.0) g/dL Lipase 11 (8-78) U/L Urine Color Urine Appearance Urine pH (5.0-9.0) Ur Specific [place] (1.005-1.025) Urine Protein (Neg-Trace) mg/dL Urine Glucose (UA) (Negative) mg/dL Urine Ketones (Negative) mg/dL Urine Blood (Negative) Urine Nitrite (Negative) Ur Leukocyte Esterase (Negative) Urine RBC (0-2) /HPF Urine WBC (0-5) /HPF Ur Squamous Epith Cells (0-2) /HPF Urine Bacteria (None Seen) Hyaline Casts (0-2) /LPF 04/04/23 04/04/23 Range/Units 13:47 15:02 WBC (4.8-10.8) X10*3/uL RBC (4.60-5.80) X10*6/uL Hgb (14.0-18.0) g/dl Hct (42.0-52.0) % MCV (80.0-98.0) fL MCH (27.0-33.0) pg MCHC (31.0-36.0) g/dl RDW (11.0-16.0) % Plt Count (160-400) X10*3/uL MPV (9.4-12.4) fL Immature Gran % (Auto) (0.0-0.4) % Neut % (Auto) (45-73) % Lymph % (Auto) (20-40) % Thomas % (Auto) (2-11) % Eos % (Auto) (0-4) % Baso % (Auto) (0-2) % Lymph # (Auto) (1.2-4.9) X10*3/uL Thomas # (Auto) (0.1-1.2) X10*3/uL Eos # (Auto) (0.0-0.4) X10*3/uL Baso # (Auto) (0.0-0.2) X10*3/uL Abs Immat Gran (auto) (0.00-0.03) X10*3/uL Absolute Neuts (auto) (2.0-8.3) x10*3/uL Absolute Nucleated RBC (0.0-0.012) X10*3/uL Nucleated RBC % (auto) (0.0-0.2) /100WBC Sodium (135-145) mmol/L Potassium (3.3-5.1) mmol/L Chloride (96-108) mmol/L Carbon Dioxide (22-29) mmol/L Anion Gap (12-20) BUN (9-16) mg/dL Creatinine (0.5-1.4) mg/dL Estim Creat Clear Calc Estimated GFR Random Glucose (60-115) mg/dL Lactic Acid 1.5 (0.5-2.0) mmol/L Calcium (8.4-10.2) mg/dL Total Bilirubin (0.0-1.0) mg/dL Direct Bilirubin (0.0-0.5) mg/dL AST (5-37) U/L ALT (0-40) U/L Alkaline Phosphatase (39-117) U/L Troponin I High Sens (<3.5-35.0) ng/L Total Protein (6.5-8.0) g/dL Albumin (3.5-5.0) g/dL Lipase (8-78) U/L Urine Color Yellow Urine Appearance Clear Urine pH 8.0 (5.0-9.0) Ur Specific [place] 1.015 (1.005-1.025) Urine Protein Negative (Neg-Trace) mg/dL Urine Glucose (UA) Negative (Negative) mg/dL Urine Ketones Trace (Negative) mg/dL Urine Blood Negative (Negative) Urine Nitrite Negative (Negative) Ur Leukocyte Esterase Trace H (Negative) Urine RBC 3-5 H (0-2) /HPF Urine WBC 0-5 (0-5) /HPF Ur Squamous Epith Cells 0-2 (0-2) /HPF Urine Bacteria None Seen (None Seen) Hyaline Casts 0-2 (0-2) /LPF Independent Interpretation I performed an independent interpretation of an: EKG and Plain X-Ray Interpretation: Rate: 81 Rhythm: NSR 1st degree AVB with PVCs [place]: normal Normal P waves. Normal NEREYDA. Normal QRS complex. ST T wave : nonspecific ST T wave changes in lateral leads qTC: normal prior studies: unchanged from prior The study has been interpreted contemporaneously by me. . External Record Review External record reviewed: Inpatient record and Prior outpatient labs Discharge Plan Discharge Clinical Impression: Fever, Nausea, Rigors Patient Disposition: Admitted As Inpatient Prescriptions: No Action lactulose 10 gram/15 mL solution 30 ml PO DAILY PRN (Reason: for constipation) Qty: 946 0RF cyanocobalamin (vitamin B-12) 1,000 mcg Tablet 1,000 mcg PO DAILY aspirin 81 mg Tablet,Delayed Release (Dr/Ec) 81 mg PO DAILY metoprolol tartrate 25 mg tablet 12.5 mg PO BID 90 Days Qty: 90 1RF rosuvastatin [Crestor] 10 mg tablet 10 mg PO DAILY Qty: 90 3RF
[2023-04-04 13:55] LABS: MANUAL DIFF FLAG NO
[2023-04-04 13:58] LABS: Basophils Percent Auto 0.2 % (0-2); Eosinophils Absolute Auto 0.1 X10*3/uL (0.0-0.4); Eosinophils Percent Auto 0.6 % (0-4); Hematocrit 39.8 % (42.0-52.0); Hemoglobin 13.6 g/dl (14.0-18.0); Imm Gran Abs Auto 0.06 X10*3/uL (0.00-0.03); Imm Gran Pct Auto 0.4 % (0.0-0.4); Lymphocytes Absolute Auto 1.3 X10*3/uL (1.2-4.9); Lymphocytes Percent Auto 9.5 % (20-40); Mean Corpuscular HGB Conc 34.2 g/dl (31.0-36.0); Mean Corpuscular Hemoglobin 29.5 pg (27.0-33.0); Mean Corpuscular Volume 86.3 fL (80.0-98.0); Monocytes Absolute Auto 0.8 X10*3/uL (0.1-1.2); Monocytes Percent Auto 5.8 % (2-11); Neutrophils Absolute Auto 11.4 x10*3/uL (2.0-8.3); Neutrophils Percent Auto 83.5 % (45-73); Platelet Count 214 X10*3/uL (160-400); Red Blood Count 4.61 X10*6/uL (4.60-5.80); Red Cell Distribution Width 12.9 % (11.0-16.0); White Blood Count 13.6 X10*3/uL (4.8-10.8)
[2023-04-04] MEDS: cefTRIAXone sodium 1 GM in 0.9 % Sodium Chloride 50 ML IV ×2 (13:59→16:17)
[2023-04-04] MEDS: Acetaminophen 325 MG TABLET 975 MG PO (13:59)
[2023-04-04 14:09] LABS: Lactic Acid 1.5 mmol/L (0.5-2.0)
[2023-04-04 14:17] LABS: Alanine Aminotransferase 15 U/L (0-40); Albumin Level 3.8 g/dL (3.5-5.0); Alkaline Phosphatase 70 U/L (39-117); Anion Gap 14 (12-20); Aspartate Amino Transferase 23 U/L (5-37); Bilirubin Direct 0.2 mg/dL (0.0-0.5); Bilirubin Total 0.9 mg/dL (0.0-1.0); Blood Urea Nitrogen 16 mg/dL (9-16); Calcium 9.1 mg/dL (8.4-10.2); Carbon Dioxide 19 mmol/L (22-29); Chloride 110 mmol/L (96-108); Creatinine Clr Calc Pharmacy 78.7; Estimated Glomerular Filt Rate > 60; Glucose Random 117 mg/dL (60-115); Lipase 11 U/L (8-78); Potassium 4.6 mmol/L (3.3-5.1); Sodium 138 mmol/L (135-145); Total Protein 6.4 g/dL (6.5-8.0)
[2023-04-04 14:20] LABS: Troponin-I High Sensitivity 13.9 ng/L (<3.5-35.0)
[2023-04-04 14:56] VITALS: BP 98/45; PULSE 79; RESP 24; TEMP 37.6; O2SAT 96
[2023-04-04 15:10] LABS: Appearance Urine Clear; Color Urine Yellow; Glucose Urine UA Negative (Negative); Leukocyte Esterase Urine Trace (Negative); Nitrite Urine Negative (Negative); Specific Gravity - Urine 1.015 (1.005-1.025); UMIC TRIGGER UACC YES; Urine Blood Negative (Negative); Urine Ketones Trace mg/dL (Negative); Urine Protein Negative (Neg-Trace)
[2023-04-04 15:12] LABS: Bacteria Urine None Seen (None Seen); Hyaline Casts Urine 0-2 /LPF (0-2); Squamous Epithelial Cell Urine 0-2 /HPF (0-2); WBC Urine 0-5 /HPF (0-5)
[2023-04-04 15:46] VITALS: BP 113/51; PULSE 69; RESP 24; TEMP 37.2; O2SAT 96
[2023-04-04] MEDS: 0.9 % Sodium Chloride 1,000 ML 999 ML IV (15:51)
--- NOTE | 2023-04-04 16:11 | P.HPHOSP_ITS ---
History of Present Illness Date of Service: 04/04/23 Chief Complaint: fever 88yo M with CAD, HTN, prostate CA s/p XRT, rectal CA s/p resection/chemo/XRT, recurrent SBOs, bladder neck obstruction for which he self-catheterizes with Coude every 5 days. He has had Proteus bacteremia in the past related to catherization. He last did this yesterday. He was in his usual state of health until this morning, when she woke up with malaise, chills, diffuse myalgias, and dyspnea. No cough or sputum production. No headache. No tick bites. No nausea, vomiting, or abdominal pain. In the ED, he was found to be febrile to 101.2. HR 84, RR initially 20 then 24. BP 165/64, then 98/65, now 113/51 after 1L of IV NS. Also given 1g IV ceftriaxone. UA with trace leukocyte esterase. CXR without acute process; coarse pleural calcifications bilaterally without significant change from prior. Review of Systems Review of Systems: Yes all other systems are reviewed and are negative [facility] Medical History Bladder neck contracture BPH (benign prostatic hyperplasia) Colon cancer Constipation Coronary artery disease Dysuria Erectile dysfunction Essential hypertension GERD (gastroesophageal reflux disease) Hematuria Hyperlipidemia, unspecified Obstructive sleep apnea Overweight (BMI 25.0-29.9) Peripheral vascular disease Prostate cancer Rectal cancer Rectal cancer SBO (small bowel obstruction) Small bowel obstruction Type 2 diabetes mellitus with hyperglycemia Urinary incontinence Family History Father Pancreatic cancer Mother No problems noted. 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 , grand daughter lives with them as well) Do you presently have visiting nurse or other home services: No Alcohol intake: never Patient Tobacco Use Status: Former Tobacco user Quit Date: years ago Tobacco use type: Cigar Smoked in Last 30 Days: No e-Cigarette/Vaping Use: Never Used Second Hand Smoke Exposure: No Use of substances other than those prescribed or required for medical reasons: No Advance Directives: Yes Advance Directives on File: Yes Advance Directives Date on File: 09/29/20 service: Yes ([employer]) Current occupational status: retired Cognitive needs: Yes (cane) Hearing needs: Yes Vision needs: Yes Meds Allergies Allergy/AdvReac Type Severity Reaction Status Date / Time diphenhydramine AdvReac Intermediate Hallucinati Verified 03/24/23 10:19 [From Benadryl] ons Active Medications: Current Medications Acetaminophen (Acetaminophen 325 Mg Tablet) 650 mg PO Q6H PRN PRN Reason: mild pain or fever Enoxaparin Sodium (Enoxaparin Sodium 40 Mg/0.4 Ml Syringe) 40 mg SUBCUT Q24H [facility] Sodium Chloride (Ns) 1,000 mls @ 999 mls/hr IV .Q1H1M [facility] Stop: 04/04/23 16:15 Last Admin: 04/04/23 15:51 Dose: 999 mls/hr Ceftriaxone Sodium 2 gm/ (Sodium Chloride) 50 mls @ 100 mls/hr IV Q24H [facility] Sodium Chloride (Ns) 1,000 mls @ 125 mls/hr IVCONT .Q8H [facility] Ceftriaxone Sodium 1 gm/ (Sodium Chloride) 50 mls @ 100 mls/hr IV ONCE ONE Stop: 04/04/23 16:29 Ondansetron HCl (Ondansetron Hcl 4 Mg/2 Ml Vial) 4 mg IVPUSH Q8H PRN PRN Reason: Nausea and Vomiting Pharmacy Consult (Consult Rx Perform Med Rec) 1 each MISCELLANE STAT STA Stop: 04/04/23 15:46 Sodium Chloride (0.9 % Sodium Chloride Flush 3 Ml Syringe) 3 ml IVFLUSH QSHIFT [facility] Home Medications Medication Instructions Recorded Confirmed Last Taken Type aspirin 81 mg tablet,delayed 81 mg PO DAILY 12/01/22 03/24/23 11/30/22 History release cyanocobalamin (vitamin B-12) 1,000 mcg PO DAILY 12/01/22 03/24/23 11/30/22 History 1,000 mcg tablet Physical Exam Vital Signs and Narrative: Vital Signs: Last Vital Signs Temp 98.9 F 04/04/23 15:46 Pulse 69 04/04/23 15:46 Resp 24 H 04/04/23 15:46 BP 113/51 L 04/04/23 15:46 Pulse Ox 96 04/04/23 15:46 O2 Del Method Room Air 04/04/23 15:46 BMI result Body Mass Index 22.7 Gen: in no acute distress, tired-appearing HEENT: sclera anicteric, moist mucus membranes Neck: supple Lungs: clear to auscultation bilaterally Heart: regular rate and rhythm, no murmurs Abd: soft, non-tender, non-distended : no suprapubic tenderness, no CVA tenderness Ext: no edema Skin: warm/well-perfused, abrasion of R 4th finger, bruising of hand Neuro: alert and oriented x3, no focal findings Psych: appropriate affect Results Labs 04/04/23 13:39 04/04/23 13:39 Labs: Laboratory Results - last 24 hr 04/04/23 04/04/23 04/04/23 13:39 13:39 13:39 MCV 86.3 MCH 29.5 MCHC 34.2 RDW 12.9 Plt Count 214 MPV 10.0 Immature Gran % (Auto) 0.4 Neut % (Auto) 83.5 H Lymph % (Auto) 9.5 L [place] % (Auto) 5.8 Eos % (Auto) 0.6 Baso % (Auto) 0.2 Lymph # (Auto) 1.3 [place] # (Auto) 0.8 Eos # (Auto) 0.1 Baso # (Auto) 0.0 Abs Immat Gran (auto) 0.06 H Absolute Neuts (auto) 11.4 H Absolute Nucleated RBC 0.000 Nucleated RBC % (auto) 0.0 Anion Gap 14 Estim Creat Clear Calc 78.7 Estimated GFR > 60 Random Glucose 117 H Lactic Acid Calcium 9.1 D Total Bilirubin 0.9 Direct Bilirubin 0.2 AST 23 ALT 15 Alkaline Phosphatase 70 Troponin I High Sens 13.9 Total Protein 6.4 L Albumin 3.8 Lipase 11 Urine Color Urine Appearance Urine pH Ur Specific [place] Urine Protein Urine Glucose (UA) Urine Ketones Urine Blood Urine Nitrite Ur Leukocyte Esterase Urine RBC Urine WBC Ur Squamous Epith Cells Urine Bacteria Hyaline Casts 04/04/23 04/04/23 13:47 15:02 MCV MCH MCHC RDW Plt Count MPV Immature Gran % (Auto) Neut % (Auto) Lymph % (Auto) [place] % (Auto) Eos % (Auto) Baso % (Auto) Lymph # (Auto) [place] # (Auto) Eos # (Auto) Baso # (Auto) Abs Immat Gran (auto) Absolute Neuts (auto) Absolute Nucleated RBC Nucleated RBC % (auto) Anion Gap Estim Creat Clear Calc Estimated GFR Random Glucose Lactic Acid 1.5 Calcium Total Bilirubin Direct Bilirubin AST ALT Alkaline Phosphatase Troponin I High Sens Total Protein Albumin Lipase Urine Color Yellow Urine Appearance Clear Urine pH 8.0 Ur Specific [place] 1.015 Urine Protein Negative Urine Glucose (UA) Negative Urine Ketones Trace Urine Blood Negative Urine Nitrite Negative Ur Leukocyte Esterase Trace H Urine RBC 3-5 H Urine WBC 0-5 Ur Squamous Epith Cells 0-2 Urine Bacteria None Seen Hyaline Casts 0-2 Imaging Radiologist's Impressions: Impressions Chest X-Ray 04/04/23 13:59 IMPRESSION: 1. No acute cardiopulmonary process. 2. Coarse pleural calcifications bilaterally without significant change. Assessment and Plan (1) Fever: Qualifiers: Fever type: unspecified Qualified Code(s): R50.9 - Fever, unspecified Status: Acute Plan 88yo M with CAD, DM, HTN, prostate CA s/p XRT, rectal CA s/p resection/chemo/XRT, recurrent SBOs, bladder neck obstruction for which he self- catheterizes with Coude every 5 days. He had Proteus bacteremia in 2019 related to catheterization. He presents with fever and malaise the day after self-cathterizating and I highly suspect bacteremia. # fever - High suspicion for bacteremia. Admit to IMC. Give IV ceftriaxone 2g IV daily, follow BCx + UCx. Give NS 125 mL/hr. # CAD # HTN - ASA, metoprolol tartrate, rosuvastatin. # VTE ppx: LMWH # dispo: lispro Time Spent With Patient Time: Total time managing care of this patient today ____ minutes. Quality Stroke Does the patient have a stroke diagnosis?: No VTE Prior VTE?: No VTE Risk Level:: Medical - moderate - high VTE Device Contraindication: N/A - Device Ordered VTE Drug Contraindication: N/A - Med Ordered
[2023-04-04] MEDS: 0.9 % Sodium Chloride 1,000 ML 125 ML IVCONT (16:18)
[2023-04-04 16:21] LABS: COVID-19 Test Negative (Negative); IDNOW Serial# 08D9AD1C; IDNOW Serial# BCCEAD1C; Influenza A Negative (Negative); Influenza B2 Negative (Negative)
[2023-04-04 16:34] LABS: C Reactive Protein 0.65 mg/dL (< or = 0.50)
[2023-04-04 16:56] LABS: Procalcitonin 0.02 ng/mL
--- NOTE | 2023-04-04 16:57 | PHA.MEDREC ---
Addendum entered by Carlyle Malave 04/04/23 17:02: Called patient's pharmacy to inquire about metoprolol tartrate Rx. Pharmacy states last time it was filled was 02/2022. However, patient attests that they take the medication. Original Note: Pharmacy Consult ? Medication Reconciliation Pharmacy has completed the medication reconciliation. Spoke to patient to confirm meds.
[2023-04-04 17:58] VITALS: BP 118/53
[2023-04-04] MEDS: Enoxaparin Sodium 40 MG/0.4 ML SYRINGE SUBCUT (18:13)
--- NOTE | 2023-04-04 18:41 | MHC.CM.PN ---
IMM 04/04. Met with admitted patient and daughterFito to discuss discharge planning. Bed assignment pending. A&Ox4. Independent. Drives. Lives with granddaughter. Pt is a . [employer]. Not vet connected per patient. Uses a cane and self cath's q5days d/t bladder neck obstruction. Has no services. Pfizer x3/Moderna x1. D/C plan: Home without services. Family to transport home. CM following for any discharge needs.
[2023-04-04 22:30] VITALS: BP 161/82; PULSE 75; RESP 16; O2SAT 98
[2023-04-05] VITALS (9 sets, daily range): BP systolic 127–195; BP diastolic 58–89; PULSE 56–79; RESP 15–20; TEMP 36.4–37.4; O2SAT 96–99
[2023-04-05] MEDS: 0.9 % Sodium Chloride 1,000 ML 125 ML IVCONT (01:29)
[2023-04-05 06:13] LABS: Hematocrit 35.7 % (42.0-52.0); Hemoglobin 11.9 g/dl (14.0-18.0); Mean Corpuscular HGB Conc 33.3 g/dl (31.0-36.0); Mean Corpuscular Hemoglobin 29.2 pg (27.0-33.0); Mean Corpuscular Volume 87.5 fL (80.0-98.0); Platelet Count 191 X10*3/uL (160-400); Red Blood Count 4.08 X10*6/uL (4.60-5.80); Red Cell Distribution Width 12.9 % (11.0-16.0); White Blood Count 8.1 X10*3/uL (4.8-10.8)
[2023-04-05 06:37] LABS: Anion Gap 8 (12-20); Blood Urea Nitrogen 15 mg/dL (9-16); Calcium 8.1 mg/dL (8.4-10.2); Carbon Dioxide 21 mmol/L (22-29); Chloride 112 mmol/L (96-108); Creatinine Clr Calc Pharmacy 73.8; Estimated Glomerular Filt Rate > 60; Glucose Random 99 mg/dL (60-115); Potassium 3.4 mmol/L (3.3-5.1); Sodium 138 mmol/L (135-145)
[2023-04-05] MEDS: Cyanocobalamin (Vitamin B-12) 1,000 MCG TABLET 1000 MCG PO (09:01)
[2023-04-05] MEDS: Aspirin Enteric Coated 81 MG TABLET.DR PO (09:01)
[2023-04-05] MEDS: 0.9 % Sodium Chloride Flush 3 ML SYRINGE IVFLUSH ×2 (09:02→20:35)
--- NOTE | 2023-04-05 09:54 | PC.NURSE ---
pt sent to floor, aox4, amb well with cane. strightcath once a week to keep from urinary retention
--- NOTE | 2023-04-05 10:56 | HO.PM.IMPN ---
Subjective Subjective Date of Service: 04/05/23 Interval History: Fever resolved BP improved Feels weak Review of Systems Review of Systems: Yes all other systems are reviewed and are negative Physical Exam Vital Signs: Vital Signs: Last Vital Signs Temp 99.1 F 04/05/23 07:11 Pulse 73 04/05/23 07:11 Resp 15 04/05/23 07:11 BP 139/68 04/05/23 07:11 Pulse Ox 97 04/05/23 07:11 O2 Del Method Room Air 04/05/23 07:11 BMI result Body Mass Index 22.7 Gen: in no acute distress HEENT: sclera anicteric, moist mucus membranes Neck: supple Lungs: clear to auscultation bilaterally Heart: regular rate and rhythm, no murmurs Abd: soft, non-tender, non-distended Ext: no edema Skin: warm/well-perfused Neuro: alert and oriented x3, no focal findings Psych: appropriate affect Objective Data Active Medications Acetaminophen (Acetaminophen 325 Mg Tablet) 650 mg PO Q6H PRN PRN Reason: mild pain or fever Aspirin (Aspirin Enteric Coated 81 Mg Tablet.) 81 mg PO DAILY [facility] Last Admin: 04/05/23 09:01 Dose: 81 mg Documented By: GUMARO Atorvastatin Calcium (Atorvastatin Calcium 40 Mg Tablet) 40 mg PO BEDTIME [facility] Cyanocobalamin (Cyanocobalamin (Vitamin B-12) 1,000 Mcg Tablet) 1,000 mcg PO DAILY [facility] Last Admin: 04/05/23 09:01 Dose: 1,000 mcg Documented By: GUMARO Docusate Sodium (Docusate Sodium 100 Mg Capsule) 100 mg PO DAILY PRN PRN Reason: Constipation Enoxaparin Sodium (Enoxaparin Sodium 40 Mg/0.4 Ml Syringe) 40 mg SUBCUT Q24H [facility] Last Admin: 04/04/23 18:13 Dose: 40 mg Documented By: NICHOLAS Ceftriaxone Sodium 2 gm/ (Sodium Chloride) 50 mls @ 100 mls/hr IV Q24H [facility] Lactulose (Lactulose 20 Gm/30 Ml Solution) 20 gm PO DAILY PRN PRN Reason: for constipation Metoprolol Tartrate (Metoprolol Tartrate 12.5 Mg Halftab) 12.5 mg PO BID [facility]; Protocol Last Admin: 04/05/23 10:20 Dose: Not Given Documented By: BETH Non-Admin Reason: Previously Administered Ondansetron HCl (Ondansetron Hcl 4 Mg/2 Ml Vial) 4 mg IVPUSH Q8H PRN PRN Reason: Nausea and Vomiting Sodium Chloride (0.9 % Sodium Chloride Flush 3 Ml Syringe) [address] [facility] Last Admin: 04/05/23 09:02 Dose: 3 ml Documented By: GUMARO Labs 04/05/23 05:57 04/05/23 05:57 Labs: Laboratory Results - last 24 hr 04/04/23 04/04/23 04/04/23 13:39 13:39 13:39 MCV 86.3 MCH 29.5 MCHC 34.2 RDW 12.9 Plt Count 214 MPV 10.0 Immature Gran % (Auto) 0.4 Neut % (Auto) 83.5 H Lymph % (Auto) 9.5 L [place] % (Auto) 5.8 Eos % (Auto) 0.6 Baso % (Auto) 0.2 Lymph # (Auto) 1.3 [place] # (Auto) 0.8 Eos # (Auto) 0.1 Baso # (Auto) 0.0 Abs Immat Gran (auto) 0.06 H Absolute Neuts (auto) 11.4 H Absolute Nucleated RBC 0.000 Nucleated RBC % (auto) 0.0 Anion Gap 14 Estim Creat Clear Calc 78.7 Estimated GFR > 60 Random Glucose 117 H Lactic Acid Calcium 9.1 D Total Bilirubin 0.9 Direct Bilirubin 0.2 AST 23 ALT 15 Alkaline Phosphatase 70 Troponin I High Sens 13.9 C-Reactive Protein 0.65 H Total Protein 6.4 L Albumin 3.8 Lipase 11 Procalcitonin 0.02 Urine Color Urine Appearance Urine pH Ur Specific [place] Urine Protein Urine Glucose (UA) Urine Ketones Urine Blood Urine Nitrite Ur Leukocyte Esterase Urine RBC Urine WBC Ur Squamous Epith Cells Urine Bacteria Hyaline Casts COVID-19 ([facility]) COVID-19 Clin Com Influenza Type A (ARRON) Influenza Type B (ARRON) Influenza A & B Note 04/04/23 04/04/23 04/04/23 13:47 15:02 15:41 MCV MCH MCHC RDW Plt Count MPV Immature Gran % (Auto) Neut % (Auto) Lymph % (Auto) [place] % (Auto) Eos % (Auto) Baso % (Auto) Lymph # (Auto) [place] # (Auto) Eos # (Auto) Baso # (Auto) Abs Immat Gran (auto) Absolute Neuts (auto) Absolute Nucleated RBC Nucleated RBC % (auto) Anion Gap Estim Creat Clear Calc Estimated GFR Random Glucose Lactic Acid 1.5 Calcium Total Bilirubin Direct Bilirubin AST ALT Alkaline Phosphatase Troponin I High Sens C-Reactive Protein Total Protein Albumin Lipase Procalcitonin Urine Color Yellow Urine Appearance Clear Urine pH 8.0 Ur Specific [place] 1.015 Urine Protein Negative Urine Glucose (UA) Negative Urine Ketones Trace Urine Blood Negative Urine Nitrite Negative Ur Leukocyte Esterase Trace H Urine RBC 3-5 H Urine WBC 0-5 Ur Squamous Epith Cells 0-2 Urine Bacteria None Seen Hyaline Casts 0-2 COVID-19 ([facility]) COVID-19 Clin Com Influenza Type A (ARRON) Negative Influenza Type B (ARRON) Negative Influenza A & B Note See Note 04/04/23 04/05/23 04/05/23 15:41 05:57 05:57 MCV 87.5 MCH 29.2 MCHC 33.3 RDW 12.9 Plt Count 191 MPV 10.0 Immature Gran % (Auto) Neut % (Auto) Lymph % (Auto) [place] % (Auto) Eos % (Auto) Baso % (Auto) Lymph # (Auto) [place] # (Auto) Eos # (Auto) Baso # (Auto) Abs Immat Gran (auto) Absolute Neuts (auto) Absolute Nucleated RBC 0.000 Nucleated RBC % (auto) 0.0 Anion Gap 8 L Estim Creat Clear Calc 73.8 Estimated GFR > 60 Random Glucose 99 Lactic Acid Calcium 8.1 L D Total Bilirubin Direct Bilirubin AST ALT Alkaline Phosphatase Troponin I High Sens C-Reactive Protein Total Protein Albumin Lipase Procalcitonin Urine Color Urine Appearance Urine pH Ur Specific [place] Urine Protein Urine Glucose (UA) Urine Ketones Urine Blood Urine Nitrite Ur Leukocyte Esterase Urine RBC Urine WBC Ur Squamous Epith Cells Urine Bacteria Hyaline Casts COVID-19 ([facility]) Negative COVID-19 Clin Com See Note Influenza Type A (ARRON) Influenza Type B (ARRON) Influenza A & B Note Assessment and Plan (1) Fever: Status: Acute Plan d#2 88yo M with CAD, DM, HTN, prostate CA s/p XRT, rectal CA s/p resection/chemo/XRT, recurrent SBOs, bladder neck obstruction for which he self-catheterizes with Coude every 5 days.? He had Proteus bacteremia in 2019 related to catheterization. He presents with fever and malaise the day after self-cathterizating and I highly suspect bacteremia. # fever - High suspicion for bacteremia.? Continue IV ceftriaxone 2g IV daily, follow BCx.? D/c IV fluids. # CAD # HTN - ASA, metoprolol tartrate, rosuvastatin. # VTE ppx: LMWH # dispo: TBD In my clinical judgment, the patient requires continued inpatient hospitalization for the following reasons: IV ABX Time Spent With Patient Time: Total time managing care of this patient today __35__ minutes. Quality Stroke Does the patient have a stroke diagnosis?: No VTE Prior VTE?: No VTE Risk Level:: Medical - moderate - high VTE Device Contraindication: N/A - Device Ordered VTE Drug Contraindication: N/A - Med Ordered
[2023-04-05] MEDS: cefTRIAXone sodium 2 GM in 0.9 % Sodium Chloride 50 ML IV (15:29)
[2023-04-05] MEDS: vancomycin/NS 2,000 MG/500 ML PLAST..BAG 250 MG IV (16:02)
[2023-04-05] MEDS: Enoxaparin Sodium 40 MG/0.4 ML SYRINGE SUBCUT (16:02)
[2023-04-05] MEDS: Metoprolol Tartrate 12.5 MG HALFTAB PO (20:33)
[2023-04-05] MEDS: Atorvastatin Calcium 40 MG TABLET PO (20:33)
[2023-04-06] MEDS: vancomycin HCL 750 MG in 0.9 % Sodium Chloride 250 ML 265 MG IV (03:30)
[2023-04-06 03:53] VITALS: BP 151/74; PULSE 63; RESP 20; TEMP 37.7; O2SAT 96
--- NOTE | 2023-04-06 05:53 | PC.NURSE ---
Due to anti-hypertensive meds and age, pt moderate fall risk. Pt has red socks in room, falling star on room but pt refuses bed alarm. Ambulates well independently in room with and without his cane.
[2023-04-06 07:33] VITALS: BP 128/66; PULSE 54; RESP 20; TEMP 36.6; O2SAT 97
[2023-04-06 08:52] LABS: Creatinine Clr Calc Pharmacy 79.8; Estimated Glomerular Filt Rate > 60
[2023-04-06 09:15] VITALS: PULSE 65
[2023-04-06] MEDS: Metoprolol Tartrate 12.5 MG HALFTAB PO (09:31)
[2023-04-06] MEDS: 0.9 % Sodium Chloride Flush 3 ML SYRINGE IVFLUSH (09:31)
[2023-04-06] MEDS: Cyanocobalamin (Vitamin B-12) 1,000 MCG TABLET 1000 MCG PO (09:31)
[2023-04-06] MEDS: Aspirin Enteric Coated 81 MG TABLET.DR PO (09:31)
[2023-04-06 11:35] VITALS: BP 122/58; PULSE 52; RESP 20; TEMP 36.6; O2SAT 98
--- NOTE | 2023-04-06 12:30 | PC.NURSE ---
Sinus keegan on monitor- lowest 43. Patient asymptomatic, lying in bed with no complaints. PA notified. No new orders at this time.
--- NOTE | 2023-04-06 12:54 | PM.DS ---
DS: Providers Provider Date of Service: 04/06/23 Date of admission: 04/04/23 16:07 Date of discharge: 04/06/23 Primary care physician: Pro Nunn MD Attending physician on discharge: Mich Bhatti Discharging clinician: Aida Magana DS: Diagnosis Discharge Diagnosis (1) Fever: Status: Acute DS: Summary Hospital Course Hospital Course: From H&P on day of admission 88yo M with CAD, HTN, prostate CA s/p XRT, rectal CA s/p resection/chemo/XRT, recurrent SBOs, bladder neck obstruction for which he self-catheterizes with Coude every 5 days.? He has had Proteus bacteremia in the past related to catherization.? He last did this yesterday.? He was in his usual state of health until this morning, when she woke up with malaise, chills, diffuse myalgias, and dyspnea.? No cough or sputum production.? No headache.? No tick bites.? No nausea, vomiting, or abdominal pain. In the ED, he was found to be febrile to 101.2.? HR 84, RR initially 20 then 24.? BP 165/64, then 98/65, now 113/51 after 1L of IV NS.? Also given 1g IV ceftriaxone.? UA with trace leukocyte esterase.? CXR without acute process; coarse pleural calcifications bilaterally without significant change from prior. fever initially suspicion for bacteremia, treated with IV ceftriaxone. 1/2 blood cultures growing GPC and vancomycin was added. urinalysis negative. Final blood culture results coagulase-negative Staph, likely contaminant. Chest x-ray with no evidence of infection. No fever for 48 hours. Has received 3 days of IV antibiotics no further antibiotics recommended at this time Time Spent with Patient Time attestation: Total time managing care of this patient today ____ minutes. Discharge coordination time: Greater than 30 minutes Quality: Safe Use of Opioids Does Pt have an Active Cancer Diagnosis on the Problem List?: No Quality: Stroke Does the patient have a stroke diagnosis?: No Physical Exam Vital Signs: Vital Signs: Last Vital Signs Temp 97.9 F 04/06/23 11:35 Pulse 52 04/06/23 11:35 Resp 20 04/06/23 11:35 BP 122/58 L 04/06/23 11:35 Pulse Ox 98 04/06/23 11:35 O2 Del Method Room Air 04/06/23 11:35 BMI result Body Mass Index 22.7 Const: General: cooperative, comfortable, no acute distress, alert and awake Nutritional Appearance: average body habitus Orientation/consciousness: patient oriented x3 Resp: Effort & Inspection: normal respiratory effort, able to speak in complete sentences, no respiratory distress and no use of accessory muscles Cardio: Rate: regular rate Heart sounds: S1 normal heart sound present and S2 normal heart sound present GI: Inspection: No distended Palpation (GI): Soft to palpation and nontender Neuro: General: patient oriented x3, moves all extremities and CN's II-XI intact bilaterally Extrem: General: Yes no pedal edema DS: Data Data Completed and Pending Completed studies during hospitalization [Text1]: Procedures Dilation of Bladder Neck, Via Natural or Artificial Opening Endoscopic (09/30/20) Drainage of Bladder with Drainage Device, Via Natural or Artificial Opening Endoscopic (09/30/20) Insertion of Infusion Device into Superior Vena Cava, Percutaneous Approach (08/27/20) Ultrasonography of Superior Vena Cava, Guidance (08/27/20) Labs on day of discharge: Laboratory Results - last 24 hr 04/06/23 08:24 Creatinine 0.74 Estim Creat Clear Calc 79.8 Estimated GFR > 60 Preliminary micro results at discharge 04/04/23 13:47 Blood Culture - Preliminary Blood - Venous No growth after 24 hours. Discharge Plan Discharge Anticipated Discharge Date/Time: 04/06/23 12:44 Patient Disposition: Home, Self-Care Discharge Diagnosis: fever Referrals: Po,Pro Adame MD [Primary Care Provider] - 1 Week Discharge Medications: Continued lactulose 10 gram/15 mL solution 30 ml PO DAILY PRN (Reason: for constipation) Qty: 946 0RF cyanocobalamin (vitamin B-12) 1,000 mcg Tablet 1,000 mcg PO DAILY aspirin 81 mg Tablet,Delayed Release (Dr/Ec) 81 mg PO DAILY docusate sodium 100 mg Capsule 100 mg PO DAILY PRN (Reason: Constipation) metoprolol tartrate 25 mg tablet 12.5 mg PO BID 90 Days Qty: 90 1RF rosuvastatin [Crestor] 10 mg tablet 10 mg PO DAILY Qty: 90 3RF Discharge Orders: Discharge Order (Routine); Ordered 04/06/23 Ordered By: Aida Magana Activity on Discharge: As tolerated Stand Alone Forms: Patient Portal Discharge page Care Plan Goals: see below Health Concerns: fever Plan of Treatment: no recurrent fever. blood cultures negative for acute infection. no source of fever identified no further antibiotics required Assessment: see discharge summary
--- NOTE | 2023-04-06 13:08 | MHC.CM.PN ---
Pt is medically cleared for D/C home today, pts family to transport.
[2023-04-06] MEDS: cefTRIAXone sodium 2 GM in 0.9 % Sodium Chloride 50 ML IV (14:04)
[2023-04-06 14:29] LABS: Vancomycin Random 9.1 mcg/mL (15-20)
== END 2023-04-06 16:23 | disposition home or self-care (01) | DRG 864 ==
LOC: HO.ED 15:47 → HO.EDOVER 16:14 → HO.IMC 04-05 08:24
PROVIDERS: Admitting Provider Family Medicine; Emergency Provider Emergency Medicine; PCP Internal Medicine; Visit Provider Physician Assistant Medical
DX: R50.9 Fever, unspecified (principal); N40.0 Benign prostatic hyperplasia without lower urinary tract symptoms; K21.9 Gastro-esophageal reflux disease without esophagitis; I25.10 Atherosclerotic heart disease of native coronary artery without angina pectoris; I10 Essential (primary) hypertension; G47.33 Obstructive sleep apnea (adult) (pediatric); Z20.822 Contact with and (suspected) exposure to COVID-19; Z85.46 Personal history of malignant neoplasm of prostate; Z85.048 Personal history of other malignant neoplasm of rectum, rectosigmoid junction, and anus; Z92.21 Personal history of antineoplastic chemotherapy; Z92.3 Personal history of irradiation; Z79.82 Long term (current) use of aspirin; Z79.899 Other long term (current) drug therapy
CPT/HCPCS: 36415; 71045; 80048; 80076; 80202; 81001; 82565; 83605; 83690; 84145; 84484; 85025; 85027; 86140; 87040; 87147; 87205; 87502; 87635; 93005; 99285; J0696; J1650; J3370

== ENCOUNTER 2023-08-02 13:15 | Outpatient (AMB) | payer MEDICARE, OTHER, SELFPAY ==
--- NOTE | 2023-08-02 13:18 | A.OFFPC_ITS ---
Vital Signs 08/02/23 13:20 Height 6 ft 2 in Weight 183 lb 8 oz BMI 23.6 BP 128/62 Blood Pressure Location Lt brachial Position Sitting Pulse 52 Pulse Source Pulse Oximeter Pulse Oximetry (%) 96 Oxygen Delivery Method Room Air Intake Visit Reasons: 3M Follow up. Intake Note: Patient is here to follow up on [symptoms]. Adult School Counselor Required: No Scientific Process Operator: Not Required per policy Accompanied by: Self / Same As Patient Allergies diphenhydramine [From Benadryl] Adverse Reaction (Intermediate, Verified 08/02/23 13:20) Hallucinations Tobacco use date assessed: 08/02/23 Fall risk assessment: No Falls in past year Last assessed Fall Risk: 08/02/23 Dental Screening Dental Screen Date: 08/02/23 Did you have a dental visit in the last 12 months?: Yes Did you have a dental problem in the last 6 months where you did not have access to dental care?: No Was dental information given to patient?: Patient has dentist HPI 3M Follow up. HPI Details 88-year-old male with diabetes mellitus hypertension prostate cancer, rectal cancer, bladder neck obstruction and self catheterize. coming in for follow-up. Last seen in March 2023 diabetes patient was seen by nurse practitioner this was following an ER visit due to fever. Review of the notes follows up with Hematology Oncology for the cancer in the colon but this has been stable. Patient also follows up with the surgeon for his recurrent bouts of small-bowel obstruction COUNT INCLUDES THE [facility] Medical History (Updated 08/02/23 @ 14:08 by Pro Nunn MD) Type 2 diabetes mellitus SBO (small bowel obstruction) Rectal cancer Bladder neck contracture GERD (gastroesophageal reflux disease) Urinary incontinence Rectal cancer Obstructive sleep apnea Coronary artery disease Type 2 diabetes mellitus with hyperglycemia Small bowel obstruction Erectile dysfunction Overweight (BMI 25.0-29.9) Peripheral vascular disease Hematuria Constipation BPH (benign prostatic hyperplasia) Prostate cancer Colon cancer Dysuria Hyperlipidemia, unspecified Essential hypertension Surgical History History of exploratory laparotomy History of carpal tunnel release History of prostate surgery (~2016) History of bladder surgery (~01/04/18) History of colectomy History of appendectomy Family History (Updated 08/02/23 @ 13:18 by JOSTIN Maya) Father Pancreatic cancer Mother No problems noted. Brother Liver cancer Social History Household Members: Other Household Members Other:: Granddaughter Housing: House Are you a primary laboratory animal caretaker to a significant other at home: Yes (laboratory animal caretaker for , grand daughter lives with them as well) Do you presently have visiting nurse or other home services: No Alcohol intake: never Patient Tobacco Use Status: Never used Tobacco Tobacco use type: Cigar e-Cigarette/Vaping Use: Never Used Second Hand Smoke Exposure: No Advance Directives Date on File: 09/29/20 service: Yes ([employer]) Current occupational status: retired Cognitive needs: Yes (cane) Hearing needs: Yes (hearing aide) Vision needs: Yes (glasses) Questionnaire PHQ-9 Over the last 2 weeks, how often have you been bothered by any of the following problems? 1. Little interest or pleasure in doing things: not at all 2. Feeling down, depressed, or hopeless: not at all 3. Trouble falling or staying asleep, or sleeping too much: not at all 4. Feeling tired or having little energy: not at all 5. Poor appetite or overeating: not at all 6. Feeling bad about yourself - or that you are a failure or have let yourself or your family down: not at all 7. Trouble concentrating on things, such as reading the newspaper or watching television: not at all 8. Moving or speaking so slowly that other people could have noticed. Or the opposite - being so fidgety or restless that you have been moving around a lot more than usual: not at all 9. Thoughts that you would be better off or of hurting yourself in some way: not at all Total score: 0 Depression Screening Interpretation: Negative Depression Screening Done: Yes Source: Developed by Drs. Chaim Escalera, Angy Pereira, Heriberto Wick and colleagues, with an educational marycarmen from [employer]. Thrive Questionnaire Date Thrive assessed: 08/02/23 I am a: Patient What is your living situation today?: I have a steady place to live Within the past 12 months, did the food you bought not last and you didn't have the money to get more?: Never true Within the past 12 months, did you worry whether your food would run out before you got money to buy more?: Never true Do you have trouble paying for medicines?: No Do you have trouble getting transportation to medical appointments?: No Do you have trouble paying your heating and electricity bill?: No Do you have trouble taking care of your child, family member or friend?: No Do you have trouble with day-to-day activities such as bathing, preparing meals, shopping, managing finances, etc.?: No Are you currently unemployed and looking for a job?: No Are you interested in more education?: No Currently or been in a relationship where the following occur: no concerns reported AUDIT C Alcohol Use Questionnaire (AUDIT-C) 1. How often do you have a drink containing alcohol?: Never Total Score: 0 NALINI-7 AMB Questionnaire NALINI-7 Date NALINI - 7 assessed: 08/02/23 Feeling nervous, anxious, or on edge: 0 = Not at all Not being able to stop or control worryin = Not at all Worrying too much about different things: 0 = Not at all Trouble relaxin = Not at all Being so restless that it is hard to sit still: 0 = Not at all Becoming easily annoyed or irritable: 0 = Not at all Feeling afraid as if something awful might happen: 0 = Not at all Total NALINI-7 score (0-4 normal; 5-9 mild; 10-14 moderate; 15-21 severe): 0 Source: Developed by Drs. Chaim Escalera, Angy Pereira, Heriberto Wick and colleagues, with an educational marycarmen from [employer]. Review of Systems Const Reports as per HPI Physical exam (Primary Care) Vital Signs: Last Vital Signs Pulse 52 08/02/23 13:20 BP 128/62 08/02/23 13:20 Pulse Ox 96 08/02/23 13:20 Oxygen Delivery Method Room Air 08/02/23 13:20 BMI result Body Mass Index 23.6 Tobacco/Smoking Status: Tobacco use Status Tobacco use date assessed 08/02/23 08/02/23 13:24 Patient Tobacco Use Status Never used Tobacco 08/02/23 13:24 Tobacco use type Cigar 08/02/23 13:24 e-Cigarette/Vaping Use Never Used 08/02/23 13:24 PHQ-9: PHQ-9 Score PHQ-9: Total score 0 08/02/23 13:30 Depression Screening Interpretation: Negative Thrive Assessment: Date of Thrive Assessment Date Thrive assessed 08/02/23 08/02/23 13:24 Currently or been in a relationship where the following occur: no concerns reported Office Procedures Flu Questionnaire Does the patient have a severe egg allergy?: No Does the patient have severe life threatening allergies?: No Does the patient have a fever or illness today?: No Has the patient ever had Guillain-[place] Syndrome?: No Has the patient ever had any past reaction to a flu shot?: No Immunizations flu vacc [id number] 6mos up(PF) 60 mcg(15 mcgx4)/0.5 mL IM syringe Performing Provider: Pro Nunn MD [facility] Administered by: KATYA Hampton on 08/02/23 13:24 Dose Route Admin Location Dispensed Lot Number Expiration Date [employer] Professor 0.5 mL IM Left Deltoid 0.5 mL [id number] 04/28/24 83343-678-10 [employer] VIS Given Date VIS Provided VIS Publication Date 08/02/23 Single Vaccine 21 Eligibility Eligibility Date Funding Source Not [facility] Eligible 08/02/23 Private Assessment and Plan Assessment & Plan (1) Type 2 diabetes mellitus with hyperglycemia: Code(s): E11.65 - Type 2 diabetes mellitus with hyperglycemia Qualifiers: Diabetes mellitus termite renewal inspector insulin use: without penitentiary use Qualified Code(s): E11.65 - Type 2 diabetes mellitus with hyperglycemia Plan: Decrease the amount of carbohydrate intake, pasta, bread, rice and potatoes are all sugar and that is aside from all the sweet stuff, remember that fruits are good but they are Sweet also. Hemoglobin A1c goal of less than 7.0 patient on diet control (2) Essential hypertension: Code(s): I10 - Essential (primary) hypertension Plan: Continue with blood pressure medication. Decrease salt intake and exercise patient takes metoprolol 12.5 mg twice a day (3) Coronary artery disease: Code(s): I25.10 - Atherosclerotic heart disease of [place] coronary artery without angina pectoris Qualifiers: Coronary Disease-Associated Artery/Lesion type: [place] artery [place] vs. transplanted heart: [place] heart Associated angina: without angina Qualified Code(s): I25.10 - Atherosclerotic heart disease of [place] coronary artery without angina pectoris Plan: Control the cholesterol, weight, blood pressure, diabetes continue with aspirin (4) Prostate cancer: Comment: TURP August 2012, December 2013, January 2017 Laser surgery; Dr. Bond Code(s): C61 - Malignant neoplasm of prostate Plan: Continue to follow-up with Urology (5) GERD (gastroesophageal reflux disease): Code(s): K21.9 - Gastro-esophageal reflux disease without esophagitis Qualifiers: Esophagitis presence: without esophagitis Qualified Code(s): K21.9 - Gastro-esophageal reflux disease without esophagitis Plan: Avoid the foods that causes that usually spicy foods, tomato products, juices, coffee, soda and foods that your sensitive to. After eating do not lie down, allow 3-4 hours before in lie down. And keep the head of bed above 30 degrees to avoid the acid from going up. (6) Cough: Code(s): R05.9 - Cough, unspecified Plan: work up decline for now Orders: Orders Influenza [id number] Immunization Today Z23 - Encounter for immunization Coding Level of Care Code Est Pt Level 4 (44152) Diagnoses Type 2 diabetes mellitus with hyperglycemia, without long-term current use of insulin E11.65 Diabetes mellitus termite renewal inspector insulin use: without termite renewal inspector use Essential hypertension I10 Coronary artery disease involving [place] coronary artery of [place] heart without angina pectoris I25.10 Coronary Disease-Associated Artery/Lesion type: [place] artery [place] vs. transplanted heart: [place] heart Associated angina: without angina Prostate cancer C61 Gastroesophageal reflux disease without esophagitis K21.9 Esophagitis presence: without esophagitis Cough R05.9
[2023-08-02 13:20] VITALS: BP 128/62; PULSE 52; O2SAT 96; BMI 23.6
== END 2023-08-02 14:13 | disposition home or self-care (01) ==
PROVIDERS: PCP Internal Medicine; Visit Provider Internal Medicine
DX: E11.65 Type 2 diabetes mellitus with hyperglycemia (principal); C61 Malignant neoplasm of prostate; C20 Malignant neoplasm of rectum; I10 Essential (primary) hypertension; Z23 Encounter for immunization; I25.10 Atherosclerotic heart disease of native coronary artery without angina pectoris; K21.9 Gastro-esophageal reflux disease without esophagitis; R05.9 Cough, unspecified
CPT/HCPCS: 90471; 90686; 99214

== ENCOUNTER 2023-08-04 10:02 | Outpatient (REF) | payer MEDICARE, OTHER, SELFPAY | END 2023-08-04 10:03 | disposition home or self-care (01) | LOC: HO.LAB 10:02 | PROVIDERS: Absent Provider Urology; PCP Internal Medicine; Visit Provider Internal Medicine | DX: Z12.5 Encounter for screening for malignant neoplasm of prostate (principal); I95.9 Hypotension, unspecified; C61 Malignant neoplasm of prostate | CPT/HCPCS: 36415; 84153; 85045 ==

== ENCOUNTER 2023-08-18 09:59 | Outpatient (AMB) | payer MEDICARE, OTHER, SELFPAY ==
--- NOTE | 2023-08-18 10:03 | A.OFFVIS_ITS ---
Intake Intake Visit Reasons: 6M PSA(set) Intake Note: Patient is Present for Telephone Follow Up PSA Urology Med: None Antibiotic Allergy: None Blood Thinner: Aspirin Pharamcy: Arrow Allergies diphenhydramine [From Benadryl] Adverse Reaction (Intermediate, Verified 08/18/23 10:06) Hallucinations HPI HPI Comments History of Present Illness Details Geoffrey is a pleasant male. He is a patient of Dr. Nunn. He is seen for the following urologic conditions - prostate cancer - bladder neck contraction Telemedicine Evaluation 15 min Consultation [employer] Spoon Zacarias Video attempted Using coude every 5 days for bladder neck dilatation Occasionally does have issues with does not line up catheter Will expect him to require catheterization for the foreseeable future to maintain bladder emptying and open bladder neck Prostate cancer Treatment with radiation 1999 Radiation cystitis with bladder neck contracture Catheter every 5-6 days keeping bladder neck open PSA 03/19 <0.1, 03/20 <0.1, 08/21 <0.1 Bladder neck stricture Multiple UTIs with persistent incomplete emptying Secondary to radiation for prostate cancer in 1999 Bladder neck incision 2018, 12/21 Repeat bladder neck incision September 2020 [facility] Medical History Type 2 diabetes mellitus SBO (small bowel obstruction) Rectal cancer Bladder neck contracture GERD (gastroesophageal reflux disease) Urinary incontinence Rectal cancer Obstructive sleep apnea Coronary artery disease Type 2 diabetes mellitus with hyperglycemia Small bowel obstruction Erectile dysfunction Overweight (BMI 25.0-29.9) Peripheral vascular disease Hematuria Constipation BPH (benign prostatic hyperplasia) Prostate cancer Colon cancer Dysuria Hyperlipidemia, unspecified Essential hypertension Surgical History History of exploratory laparotomy History of carpal tunnel release History of prostate surgery (~2016) History of bladder surgery (~01/04/18) History of colectomy History of appendectomy Family History Father Pancreatic cancer Mother No problems noted. Brother Liver cancer Social History Household Members: Other Household Members Other:: Granddaughter Housing: House Are you a primary director medicare sales to a significant other at home: Yes (director medicare sales for , grand daughter lives with them as well) Do you presently have visiting nurse or other home services: No Alcohol intake: never Patient Tobacco Use Status: Never used Tobacco Tobacco use type: Cigar e-Cigarette/Vaping Use: Never Used Second Hand Smoke Exposure: No Advance Directives Date on File: 09/29/20 service: Yes ([employer]) Current occupational status: retired Cognitive needs: Yes (cane) Hearing needs: Yes (hearing aide) Vision needs: Yes (glasses) Review of Systems Const Denies chills and Denies fever(s) Card Reports no additional complaints and Denies syncope Resp Denies cough GI Denies abdominal pain and Denies heartburn Reports as per HPI and Denies change in libido Neuro Denies syncope Psych Denies change in libido Endo Denies change in libido Physical Exam Const General: cooperative, healthy appearing, comfortable and no acute distress Orientation/consciousness: patient oriented x3 HEENT Face and sinus: Yes normal facial exam Mouth: moist mucous membranes Neck Neck: Yes normal visual inspection, Yes full ROM and Yes trachea midline Chest Chest palpation & inspection: normal inspection of the chest Resp Effort & Inspection: normal respiratory effort, able to speak in complete sentences and no respiratory distress GI Inspection: Yes normal to inspection Back/Spine/Pelvis Cervical Spine: normal cervical lordosis Thoracic/Lumbar Spine: thoracic and lumbar spine normal to inspection Skin General skin exam: no rashes or lesions noted Neuro General: patient oriented x3, gait normal, tone normal and moves all extremities Extrem General: Yes normal to inspection and Yes capillary refill normal Assessment & Plan Assessment & Plan (1) Prostate cancer: Comment: TURP August 2012, December 2013, January 2017 Laser surgery; Dr. Bond Code(s): C61 - Malignant neoplasm of prostate (2) Bladder neck stricture: Comment: status post incision bladder neck contracture with laser, cystoscopy Dr. Hein September 2020 Code(s): N32.0 - Bladder-neck obstruction Plan 6m f/u Patient Instructions: Imaging studies, laboratory and physical exam results were discussed and reviewed in detail. No major barriers to patient understanding were identified. An opportunity to ask questions regarding the treatment plan was provided. All questions were answered. The patient expressed understanding and agreement with the above treatment plan. The patient is aware they should contact our office by phone for worsening of their current condition or the appearance of new urologic symptoms. Compliance is encouraged with any medications and followup testing that is ordered. It is a privilege to participate in the urologic care of your patient. If you have any questions or concerns regarding treatment for the above conditions, or other urologic issues, please do not hesitate to contact me. The office telephone contact is [phone]. This note is constructed using voice recognition software. While every effort has been made to ensure accuracy urban gardening specialist errors may have been included. Yours sincerely, Dr Jerman Hein MD, [facility] - Urology Providers of Expert, Compassionate Care for the Genitourinary System Telehealth Telehealth Location of provider rendering services: practice address Location of patient: address on file Patient Identification confirmed using: Name, : Yes Telehealth method: video Patient verbally consented to treatment: Yes Patient verbally consented to billing insurance company: Yes Patient informed of any privacy concerns related to visit: Yes Coding Level of Care Code Tele Est Pt Level 3 (37837) Diagnoses Prostate cancer C61 Bladder neck stricture N32.0
== END 2023-08-18 11:16 | disposition home or self-care (01) ==
LOC: HO.HUSH 09:59
PROVIDERS: PCP Internal Medicine; Visit Provider Urology
DX: C61 Malignant neoplasm of prostate (principal); N32.0 Bladder-neck obstruction
CPT/HCPCS: 99213

== ENCOUNTER → 2023-08-18 09:59 | Outpatient (BNVA) | payer MEDICARE, OTHER, SELFPAY | PROVIDERS: PCP Internal Medicine; Visit Provider Urology ==

== ENCOUNTER 2023-11-16 13:01 | Outpatient (AMB) | payer MEDICARE, OTHER, SELFPAY ==
--- NOTE | 2023-11-16 13:05 | A.OFFVIS_ITS ---
Intake Vital Signs 11/16/23 13:07 Height 6 ft 2 in Weight 186 lb 8.177 oz BMI 23.9 BP 98/60 Blood Pressure Location Lt brachial Position Sitting Pulse 56 Intake Visit Reasons: 1 yr f/up Intake Note: 1 year follow up Police Aide Required: No Accompanied by: Self / Same As Patient Allergies diphenhydramine [From Benadryl] Adverse Reaction (Intermediate, Verified 11/16/23 14:40) Hallucinations Medication List - Last Reconciled 11/16/23 by Sean Pina MD aspirin 81 mg PO DAILY cyanocobalamin (vitamin B-12) 1,000 mcg PO DAILY docusate sodium 100 mg PO DAILY PRN lactulose 30 mL PO DAILY PRN metoprolol tartrate 12.5 mg (1/2 x 25 mg) PO BID 90 days rosuvastatin (Crestor) 10 mg PO DAILY HPI HPI Comments History of Present Illness Details Geoffrey returns for follow-up regarding suspected coronary disease. It seems that he was recently in [place] when he had stroke type symptoms. After that, it seems that he underwent neuro workup including carotid angiogram. This showed critical stenosis in the right carotid system as well as severe 72% stenosis of the left internal carotid. However, he did not have any interventions and referred back to vascular surgery back here. He seems improved from the neurological standpoint. Otherwise, from cardiac, he does not have any complaints like angina or shortness of breath or anything of that nature. Walks with a cane. [facility] Medical History Type 2 diabetes mellitus SBO (small bowel obstruction) Rectal cancer Bladder neck contracture GERD (gastroesophageal reflux disease) Urinary incontinence Rectal cancer Obstructive sleep apnea Coronary artery disease Type 2 diabetes mellitus with hyperglycemia Small bowel obstruction Erectile dysfunction Overweight (BMI 25.0-29.9) Peripheral vascular disease Hematuria Constipation BPH (benign prostatic hyperplasia) Prostate cancer Colon cancer Dysuria Hyperlipidemia, unspecified Essential hypertension Surgical History History of exploratory laparotomy History of carpal tunnel release History of prostate surgery (~2016) History of bladder surgery (~01/04/18) History of colectomy History of appendectomy Family History Father Pancreatic cancer Mother No problems noted. Brother Liver cancer Social History Household Members: Other Household Members Other:: Granddaughter Housing: House Are you a primary health care facilities inspector to a significant other at home: Yes (health care facilities inspector for , grand daughter lives with them as well) Do you presently have visiting nurse or other home services: No Alcohol intake: never Patient Tobacco Use Status: Never used Tobacco Tobacco use type: Cigar e-Cigarette/Vaping Use: Never Used Second Hand Smoke Exposure: No Advance Directives Date on File: 09/29/20 service: Yes ([employer]) Current occupational status: retired Cognitive needs: Yes (cane) Hearing needs: Yes (hearing aide) Vision needs: Yes (glasses) Review of Systems Const Denies weakness ENT Denies dizziness Card Denies chest pain, Denies chest pain with activity, Denies syncope, Denies rapid heart rate, Denies pedal edema, Denies edema, Denies leg edema, Denies lightheadedness, Denies palpitations, Denies dyspnea on exertion and Denies orthopnea Resp Denies cough and Denies dyspnea on exertion GI Denies hematochezia and Denies change in stool character Musc Denies abnormal gait, Denies muscle cramps, Denies muscle weakness, Denies numbness, Denies radiating pain into limb and Denies tingling Neuro Denies abnormal gait, Denies dizziness, Denies syncope, Denies numbness, Denies tingling and Denies weakness Endo Denies palpitations Physical Exam Vital Signs: Last Vital Signs Pulse 56 11/16/23 13:07 BP 98/60 11/16/23 13:07 BMI result Body Mass Index 23.9 Const General: comfortable and no acute distress Orientation/consciousness: patient oriented x3 HEENT Other: Unremarkable Head: Yes normal to inspection Neck Neck: Yes normal visual inspection Chest Chest palpation & inspection: normal inspection of the chest Resp Auscultation: clear to auscultation bilaterally Cardio Palpation: normal PMI Heart sounds: S1 normal heart sound present, S2 normal heart sound present, no gallops, no murmurs and no rubs GI Palpation (GI): Soft to palpation Back/Spine/Pelvis Other: unremarkable Skin General skin exam: no rashes or lesions noted Neuro General: patient oriented x3 Extrem General: Yes normal to inspection Psych Mental Status: mental status grossly normal Assessment & Plan Assessment & Plan (1) Atherosclerotic cardiovascular disease: Code(s): I25.10 - Atherosclerotic heart disease of [place] coronary artery without angina pectoris (2) Preoperative cardiovascular examination: Code(s): Z01.810 - Encounter for preprocedural cardiovascular examination Plan Echocardiogram from 2020 with LVEF of 60-65% and otherwise unremarkable. Another study from [place] during recent hospitalization showed LVEF 50-55%; normal right ventricular systolic function and no significant valvular abnormalities. Stress MIBI from 2014 with some inferobasal and apical ischemia. Repeat study from 2017 with similar findings. On treatment for stable CAD. He is currently on a combination of aspirin, low-dose beta-blockers and statins. Lipids are well controlled. LDL 25 mg/dL. Triglycerides 103 mg/dL. Upon discussion with Dr. Shen from vascular surgery it seems that he is going to need left carotid endarterectomy, as the symptoms are related to that. He also has even higher grade right carotid stenosis. Considering his age and vascular findings, we will arrange for a diagnostic catheterization for further evaluation of coronaries before planned carotid surgery. Total time spent including review of records from [place], discussion vascular surgery, counseling, coordination of care-48 minutes. Orders: Orders Basic Metabolic Panel Today Z01.810 - Encounter for preprocedural cardiovascular examination Prothrombin Time INR Today Z01.810 - Encounter for preprocedural cardiovascular examination Cardiac Cath LT Diagnostic Today Z01.810 - Encounter for preprocedural cardiovascular examination Complete Blood Count no Diff Today Z01.810 - Encounter for preprocedural cardiovascular examination Coding Level of Care Code Est Pt Level 5 (10115) Diagnoses Atherosclerotic cardiovascular disease I25.10 Preoperative cardiovascular examination Z01.810
[2023-11-16 13:07] VITALS: BP 98/60; PULSE 56; BMI 23.9
== END 2023-11-16 13:25 | disposition home or self-care (01) ==
PROVIDERS: Visit Provider Internal Medicine
DX: I25.10 Atherosclerotic heart disease of native coronary artery without angina pectoris (principal); Z01.810 Encounter for preprocedural cardiovascular examination
CPT/HCPCS: 99215

== ENCOUNTER → 2023-11-16 13:01 | Outpatient (BNVA) | payer MEDICARE, OTHER, SELFPAY | PROVIDERS: Visit Provider Internal Medicine | DX: Z01.810 Encounter for preprocedural cardiovascular examination (principal); I25.10 Atherosclerotic heart disease of native coronary artery without angina pectoris; I65.22 Occlusion and stenosis of left carotid artery | CPT/HCPCS: 99202; 99212 ==

== ENCOUNTER 2023-11-16 14:13 | Outpatient (AMB) | payer MEDICARE, OTHER, SELFPAY ==
[2023-11-16 14:39] VITALS: BP 120/68; PULSE 55; O2SAT 98; BMI 23.9
--- NOTE | 2023-11-16 14:39 | MHC.OFFVIS ---
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 Pt states he is feeling well at this time. Pt states at the time of the incident he had burry vision, unsteadiness, and confusion. 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 Has a very interesting story which began in September when he drove down to [place]. He has a past medical history of hypertension hyperlipidemia and a remote history of smoking where he quit nearly 30 years ago but prior to that he was smoking nearly a pack a day. He was driving down to [place] an acutely at 01:30 he felt his right foot get heavy with some numbness over that leg. He developed dizziness and fatigue. Also had some speech disturbances at that time according to the patient. He underwent an extensive workup at the hospital including extensive imaging and even an attempted carotid stent by the interventional radiologist down there. According to the patient all his symptoms and the documentation states that it was more on the right side. They attempted to stent the right side. He does have bilateral high-grade carotid stenosis. He has had no interval recurrence of events. He has been maintained on aspirin and Plavix. He now presents to us for evaluation. Of note he did have an echo performed in [place] which demonstrated an ejection fraction of 55%. In addition from a functional standpoint he is able to climb a flight of stairs and easily able to walk several blocks with no difficulty. [facility] Medical History Type 2 diabetes mellitus SBO (small bowel obstruction) Rectal cancer Bladder neck contracture GERD (gastroesophageal reflux disease) Urinary incontinence Rectal cancer Obstructive sleep apnea Coronary artery disease Type 2 diabetes mellitus with hyperglycemia Small bowel obstruction Erectile dysfunction Overweight (BMI 25.0-29.9) Peripheral vascular disease Hematuria Constipation BPH (benign prostatic hyperplasia) Prostate cancer Colon cancer Dysuria Hyperlipidemia, unspecified Essential hypertension Surgical History History of exploratory laparotomy History of carpal tunnel release History of prostate surgery (~2017) History of bladder surgery (~01/04/18) History of colectomy History of appendectomy Family History Father Pancreatic cancer Mother No problems noted. Brother Liver cancer Social History Household Members: Other Household Members Other:: Granddaughter Housing: House Are you a primary home care provider to a significant other at home: Yes (home care provider for , grand daughter lives with them as well) Do you presently have visiting nurse or other home services: No Alcohol intake: never Patient Tobacco Use Status: Never used Tobacco Tobacco use type: Cigar e-Cigarette/Vaping Use: Never Used Second Hand Smoke Exposure: No Advance Directives Date on File: 09/29/20 service: Yes ([employer]) Current occupational status: retired Cognitive needs: Yes (cane) Hearing needs: Yes (hearing aide) Vision needs: Yes (glasses) Review of Systems Const All systems reviewed & are unremarkable except as noted in HPI and below Reports no additional complaints ENT Reports Normal hearing present Card Denies chest pain, Denies chest pain at rest, Denies chest pain with activity and Denies pedal edema Resp Denies cough GI Denies abdominal pain Musc Denies abnormal gait, Denies muscle cramps and Denies radiating pain into limb Skin/Breast Denies skin ulcer and Denies wounds Neuro Reports Normal hearing present and Denies abnormal gait Psych Reports no additional complaints Physical Exam Vital Signs: Last Vital Signs Pulse 55 11/16/23 14:39 BP 116/68 11/16/23 14:49 Pulse Ox 98 11/16/23 14:39 Oxygen Delivery Method Room Air 11/16/23 14:39 BMI result Body Mass Index 23.9 Const General: cooperative, healthy appearing and comfortable Orientation/consciousness: oriented to person, oriented to place and oriented to time HEENT Head: Yes normal to inspection Neck Neck: Yes normal visual inspection Carotids: no bruits Chest Chest palpation & inspection: normal inspection of the chest Resp Effort & Inspection: normal respiratory effort and able to speak in complete sentences Auscultation: clear to auscultation bilaterally, no crackles, no rales, no rhonchi and no wheezes Cardio Rate: regular rate Rhythm: regular rhythm Heart sounds: S1 normal heart sound present and S2 normal heart sound present Bruits: no carotid bruits Peripheral pulses: Peripheral pulses 2+ throughout GI Inspection: Yes normal to inspection Skin Wounds: no wounds Hair: normal Neuro General: oriented to person, oriented to place and oriented to time Cranial nerves: Yes CN's II-XII intact bilaterally and Yes Normal hearing present Cognition (Neuro): normal cognition Motor exam (neuro): 5/5 motor strength present throughout Extrem Other: venous exam: No significant superficial varicosities or spider telangiectasias, minimal edema General: No clubbing, No cyanosis and No edema Psych Appearance: grossly normal Mental Status: mental status grossly normal Speech and movement: Normal speech and movement present Results Reviewed Results Reviewed: Written report of CT angiogram indicates 70% left stenosis and 90% right stenosis from [facility] in [place]. Interventional radiology report from attempted carotid stent demonstrates left-sided stenosis of about 72% and right-sided stenosis of 89%. Once again this is a written report from [facility] in [place] Assessment & Plan Assessment & Plan (1) Symptomatic stenosis of left carotid artery: Code(s): I65.22 - Occlusion and stenosis of left carotid artery Plan: In short patient has symptomatic left carotid stenosis. Even though he has a higher grade right carotid stenosis according to written report from imaging the left side is symptomatic. Will require left carotid endarterectomy. Risks benefits complications including but not limited to bleeding infection stroke and were discussed in detail with the patient and the patient's family at bedside. They agreed and would like to move forward. I will obtain a repeat CT angiogram to better elucidate the anatomy prior to surgery. In addition he will require cardiac risk stratification. I did discuss this case with Dr. Pina. Thank you for allowing us to assist in his care. If there are any questions or concerns please do not hesitate to contact us. Of note 65 minutes of time was required with the patient including record assessment of the 62 page document sent over from [place], discussion with the cardiac team, discussion with the patient and family about the over pathophysiology of disease and the operation. Orders: Orders CT angio neck Today I65.22 - Occlusion and stenosis of left carotid artery Coding Level of Care Code New Pt Level 5 (95367) Diagnoses Symptomatic stenosis of left carotid artery I65.22
[2023-11-16 14:49] VITALS: BP 116/68
== END 2023-11-16 16:02 | disposition home or self-care (01) ==
PROVIDERS: PCP Internal Medicine; Visit Provider Surgery Vascular Surgery
DX: I65.22 Occlusion and stenosis of left carotid artery (principal)
CPT/HCPCS: 99205

== ENCOUNTER 2023-11-21 14:23 | Outpatient (REF) | payer MEDICARE, OTHER, SELFPAY ==
--- NOTE | ~2023-11-21 | CT_ITS ---
EXAMINATION: CT angio neck CLINICAL INFORMATION: Occlusion and stenosis of the left carotid artery. Carotid stenosis. COMPARISON: No relevant prior imaging. TECHNIQUE: Inspector Floor Sub Assembly images were obtained. A CT angiogram of the neck was performed in the arterial phase after the intravenous administration of 70 mL Omnipaque 350. 3D images were processed on an independent workstation under concurrent supervision. Arterial stenoses are measured in accordance with NASCET criteria or similar method if applicable. This CT examination was performed using dose optimization techniques as appropriate, including one or more of the following: Automated exposure control, iterative reconstruction, and adjustment of technique factors (mA and/or kVp) according to patient size (this includes techniques or standardized protocols for targeted exams where dose is matched to indication/reason for exam). Fleischner Society criteria for the followup of incidental pulmonary nodules was implemented if appropriate. Total exam dose-length product 482 mGy-cm FINDINGS: CT angiogram neck: Scattered atheromatous calcification involves the aortic arch apex. Origins of major aortic branches are patent. Common carotid arteries are patent. There is partially calcified predominantly lipid-laden atheromatous plaque at both carotid bifurcations. There is 90% stenosis at the origin of the right internal carotid artery and 75% stenosis at the origin of the left internal carotid artery. Extracranial internal carotid arteries are otherwise patent. The cervical segments of the vertebral arteries are patent. CT angiogram head: There is atheromatous calcification involving the cavernous segments of both internal carotid arteries. Intracranial internal carotid arteries are otherwise patent. The intradural vertebral artery segments and basilar artery are patent. Visualized portions of the anterior, middle, and posterior cerebral artery complexes are unremarkable. Grossly no intracranial large vessel occlusion. No identifiable aneurysm or high flow vascular lesion. Other: Soft tissues of the neck including the thyroid gland are normal. Grossly no pathologically enlarged cervical lymph nodes. There is pleural-parenchymal scarring visualized at the apices of both lungs. There is a groundglass 1.2 cm nodule at the apex of the right lung best visualized on axial image 115 of 144 series 5. Calcified pleural plaques are partially visualized within both hemithoraces. There is no acute osseous finding. Specifically no worrisome lytic or blastic osseous lesion. The skull base is grossly intact. No mastoid or middle ear effusion. Limited visualization of intracranial anatomy reveals no abnormal finding. CT/CT angio neck IMPRESSION: There is partially calcified predominantly lipid-laden atheromatous plaque at both carotid bifurcations. There is 90% stenosis at the origin of the right internal carotid artery and 75% stenosis at the origin of the left internal carotid artery. Cervical vertebral arteries are patent. Grossly no intracranial large vessel occlusion. There is a groundglass 1.2 cm nodule at the apex of the right lung. According to the UPDATED 2017 Fleischner Society recommendations, the advised follow-up imaging for CT at 6?12 months to confirm persistence, then CT every 2 years until 5 years.
[2023-11-21] MEDS: iohexoL 350 MG/ML 100 ML INFUS..BTL IV (15:12)
[2023-11-22 08:37] LABS: Creatinine POC 0.7 mg/dL (0.5-1.4); GFR POC > 60
== END 2023-11-21 14:24 | disposition home or self-care (01) ==
LOC: HO.CT 14:23
PROVIDERS: PCP Internal Medicine; Visit Provider Surgery Vascular Surgery
DX: I65.22 Occlusion and stenosis of left carotid artery (principal)
CPT/HCPCS: 70498; 82565; Q9967

== ENCOUNTER → 2023-11-22 23:59 | Outpatient (BNV) | payer MEDICARE, OTHER, SELFPAY | PROVIDERS: PCP Internal Medicine; Visit Provider Internal Medicine Cardiovascular Disease | DX: I20.89 Other forms of angina pectoris (principal); I25.118 Atherosclerotic heart disease of native coronary artery with other forms of angina pectoris | CPT/HCPCS: 92928; 93458; 99152 ==

== ENCOUNTER 2023-11-30 12:57 | Outpatient (AMB) | payer MEDICARE, OTHER, SELFPAY ==
--- NOTE | 2023-11-30 12:58 | A.OFFVIS_ITS ---
Intake Vital Signs 11/30/23 12:59 Height 6 ft 2 in Weight 186 lb 15.232 oz BMI 24.0 BP 126/66 Blood Pressure Location Lt brachial Position Sitting Pulse 51 Intake Visit Reasons: post cath/ clearance Intake Note: follow up Corrections Sergeant Required: No Accompanied by: Self / Same As Patient Allergies diphenhydramine [From Benadryl] Adverse Reaction (Intermediate, Verified 11/30/23 13:01) Hallucinations Medication List - Last Reconciled 11/30/23 by Sean Pina MD aspirin 81 mg PO DAILY clopidogrel 75 mg PO DAILY cyanocobalamin (vitamin B-12) 1,000 mcg PO DAILY docusate sodium 100 mg PO DAILY PRN lactulose 30 mL PO DAILY PRN metoprolol tartrate 12.5 mg PO DAILY rosuvastatin (Crestor) 10 mg PO DAILY HPI HPI Comments History of Present Illness Details Geoffrey returns for follow-up regarding suspected coronary disease. He needs preoperative evaluation for carotid surgery. It seems that he was recently in [place] when he had stroke type symptoms. After that, he underwent neuro workup including carotid angiogram. This showed critical stenosis in the right carotid system as well as severe 72% stenosis of the left internal carotid. However, he did not have any interventions and referred back to vascular surgery back here. He does not have any neuro symptoms at this time. However, because of significant bilateral stenosis, there is a plan to go ahead with left internal carotid endarterectomy next week-per vascular surgery, decision was made based on localization of his initial symptoms. Patient underwent a cardiac catheterization as part of preoperative workup due to high suspicion for underlying CAD. Detected to have right coronary artery stenosis and underwent PCI. He really does not have any cardiac symptoms at this time. [facility] Medical History (Updated 11/29/23 @ 10:20 by Shanna Faulkner RN) History of trigger finger Arthritis Rectal cancer Bladder neck contracture GERD (gastroesophageal reflux disease) Urinary incontinence Obstructive sleep apnea Coronary artery disease Type 2 diabetes mellitus with hyperglycemia Small bowel obstruction Erectile dysfunction Overweight (BMI 25.0-29.9) Peripheral vascular disease Hematuria Constipation BPH (benign prostatic hyperplasia) Prostate cancer Colon cancer Dysuria Hyperlipidemia, unspecified Essential hypertension Surgical History History of coronary artery stent placement History of exploratory laparotomy History of carpal tunnel release History of prostate surgery (~2016) History of bladder surgery (~01/04/18) History of colectomy History of appendectomy Family History Father Pancreatic cancer Mother No problems noted. Brother Liver cancer Social History Household Members: Other Household Members Other:: Granddaughter Housing: House Are you a primary home child care provider to a significant other at home: No Do you presently have visiting nurse or other home services: No Alcohol intake: never Patient Tobacco Use Status: Never used Tobacco Tobacco use type: Cigar e-Cigarette/Vaping Use: Never Used Second Hand Smoke Exposure: No Advance Directives Date on File: 09/29/20 service: Yes ([employer]) Current occupational status: retired Cognitive needs: Yes (cane) Hearing needs: Yes (hearing aide) Vision needs: Yes (glasses) Review of Systems Const Denies weakness ENT Denies dizziness Card Denies chest pain, Denies chest pain with activity, Denies syncope, Denies rapid heart rate, Denies pedal edema, Denies edema, Denies leg edema, Denies lightheadedness, Denies palpitations, Denies dyspnea, Denies dyspnea on exertion and Denies orthopnea Resp Denies cough, Denies dyspnea and Denies dyspnea on exertion GI Denies hematochezia and Denies change in stool character Musc Denies abnormal gait, Denies muscle cramps, Denies muscle weakness, Denies numbness, Denies radiating pain into limb and Denies tingling Neuro Denies abnormal gait, Denies dizziness, Denies syncope, Denies numbness, Denies tingling and Denies weakness Endo Denies palpitations Physical Exam Vital Signs: Last Vital Signs Pulse 51 11/30/23 12:59 BP 126/66 11/30/23 12:59 BMI result Body Mass Index 24.0 Const General: comfortable and no acute distress Orientation/consciousness: patient oriented x3 HEENT Other: Unremarkable Head: Yes normal to inspection Neck Neck: Yes normal visual inspection Chest Chest palpation & inspection: normal inspection of the chest Resp Auscultation: clear to auscultation bilaterally Cardio Palpation: normal PMI Heart sounds: S1 normal heart sound present, S2 normal heart sound present, no gallops, no murmurs and no rubs GI Palpation (GI): Soft to palpation Back/Spine/Pelvis Other: unremarkable Skin General skin exam: no rashes or lesions noted Neuro General: patient oriented x3 Extrem General: Yes normal to inspection Psych Mental Status: mental status grossly normal Assessment & Plan Assessment & Plan (1) Atherosclerotic cardiovascular disease: Code(s): I25.10 - Atherosclerotic heart disease of [place] coronary artery without angina pectoris (2) Preoperative cardiovascular examination: Code(s): Z01.810 - Encounter for preprocedural cardiovascular examination Plan Cardiac studies reviewed. Echocardiogram from 2020 with LVEF of 60-65% and otherwise unremarkable. Another study from [place] during recent hospitalization showed LVEF 50-55%; normal right ventricular systolic function and no significant valvular abnormalities. Stress MIBI from 2014 with some inferobasal and apical ischemia. Repeat study from 2016 with similar findings. Cardiac catheterization 11/22 with severe stenosis in the right coronary artery status post PCI. First diagonal with 50-60% stenosis. Otherwise, no significant disease. Reviewed cardiac catheterization documentation as well as discussed with Dr. Shen. Due to recent stroke type symptoms as well as significant carotid disease, there is risk of recurrent stroke. Hence considering the risks/benefits, there is plan to proceed with carotid endarterectomy next week. [place]-operative risk of myocardial infarction discussed with patient in detail and he understands. Otherwise, continue aspirin/Plavix without interruption. He is also on beta- blockers and some statins. We will see him in follow-up in 3 months. Coding Level of Care Code Est Pt Level 4 (05900) Diagnoses Atherosclerotic cardiovascular disease I25.10 Preoperative cardiovascular examination Z01.810
[2023-11-30 12:59] VITALS: BP 126/66; PULSE 51; BMI 24.0
== END 2023-11-30 13:22 | disposition home or self-care (01) ==
PROVIDERS: PCP Internal Medicine; Visit Provider Internal Medicine
DX: I25.10 Atherosclerotic heart disease of native coronary artery without angina pectoris (principal); Z01.810 Encounter for preprocedural cardiovascular examination
CPT/HCPCS: 99214

== ENCOUNTER → 2023-11-30 12:57 | Outpatient (BNVA) | payer MEDICARE, OTHER, SELFPAY | PROVIDERS: PCP Internal Medicine; Visit Provider Internal Medicine | DX: Z01.810 Encounter for preprocedural cardiovascular examination (principal); I25.10 Atherosclerotic heart disease of native coronary artery without angina pectoris | CPT/HCPCS: 99212 ==

== ENCOUNTER 2023-12-02 07:53 | Inpatient (IN) | payer MEDICARE, OTHER, SELFPAY ==
--- NOTE | ~2023-12-02 | CT_ITS ---
EXAMINATION: CT SOFT TISSUE NECK WITH CONTRAST CLINICAL INFORMATION: Dysphagia status post carotid endarterectomy. COMPARISON: CT angiogram 11/21/2023. TECHNIQUE: Following the intravenous administration of 60 mL of Omnipaque 350 intravenous contrast, helical imaging was performed in the axial plane with generation of coronal and sagittal reformatted images. This CT examination was performed using dose optimization techniques as appropriate, variously including the following: *Automated exposure control *Adjustment of mA and/or kV according to patient size (this includes techniques or standardized protocols for targeted exams where dose is matched to indication/reason for exam; i.e. extremities or head) *Use of iterative reconstruction technique DLP: 324 mGy-cm FINDINGS: There is stranding and soft tissue gas within the left anterior neck consistent with the clinical history of a recent carotid endarterectomy. Small retropharyngeal effusion. No discrete drainable fluid collection. No evidence of arterial pseudoaneurysm. There is apparent asymmetric thickening of the left aryepiglottic fold. Evaluation of the larynx however is suboptimal due to adduction of the vocal folds. Pharyngeal mucosal spaces are symmetric. Parapharyngeal and retromaxillary fat is preserved. Barrel Bander spaces are symmetric. Parotid and submandibular glands are unremarkable. The tongue base is normal. The thyroid gland is normal and the remainder of the visualized visceral soft tissues are unremarkable. No pathologically enlarged cervical lymph nodes. No mediastinal or axillary adenopathy is visualized within the [id number] of this examination. There is a small right pleural effusion. Heavily calcified pleural plaques are visualized within both hemithoraces. There is pleural-parenchymal scarring at the apices of both lungs. Scattered atheromatous calcification involves the aortic arch apex and there is heavily calcified plaque causing severe stenosis at the origin of the right internal carotid artery. Cervical vertebral arteries are grossly patent. Internal jugular veins fill symmetrically. Limited visualization of the intracranial anatomy reveals no abnormal finding. CT/CT soft tissue neck w IV con IMPRESSION: There are expected postoperative changes related to a recent left carotid endarterectomy. No discrete drainable fluid collection. No evidence of arterial pseudoaneurysm. There is however apparent asymmetric thickening of the left aryepiglottic fold. Evaluation of the larynx however is suboptimal due to adduction of the vocal folds. Correlation with clinical examination is therefore recommended with regard to this finding.
--- NOTE | ~2023-12-02 | CT_ITS ---
EXAMINATION: CT ABDOMEN AND PELVIS WITH CONTRAST CLINICAL INFORMATION: Peritendinitis COMPARISON: Previous CT of the abdomen and pelvis January 2023 TECHNIQUE: Multidetector volumetric images were obtained from the superior aspect of the liver through the pubic symphysis following administration 85 mL of Omnipaque 350 intravenous contrast. Sagittal and coronal reformatted images were obtained on the technologist's workstation. Oral contrast: Yes This CT examination was performed using dose optimization techniques as appropriate, variously including the following: *Automated exposure control *Adjustment of mA and/or kV according to patient size (this includes techniques or standardized protocols for targeted exams where dose is matched to indication/reason for exam; i.e. extremities or head) *Use of iterative reconstruction technique DLP: 623 mGy-cm FINDINGS: LUNG BASES: The visualized lung bases are clear. There is bilateral scattered pleural calcifications and mild pleural thickening. No mass or pleural effusion. LIVER, GALLBLADDER, AND BILIARY TREE: The liver is normal in size, shape, and attenuation. No focal hepatic lesion or biliary ductal dilatation is present. The gallbladder is unremarkable with no evidence of radiopaque gallstones, gallbladder wall thickening, or obvious pericholecystic inflammatory changes. PANCREAS: Atrophic changes of the pancreas. SPLEEN: Unremarkable. ADRENAL GLANDS: Unremarkable. KIDNEYS AND URETERS: The kidneys are normal in size, shape, and attenuation. No hydronephrosis, hydroureter, or calculi seen. No perinephric stranding. BLADDER: Unremarkable. GASTROINTESTINAL TRACT: There are dilated fluid-filled small bowel. There is caliber change in distal small bowel in the right lower quadrant. There is question of wall thickening seen in this region. Stranding of the surrounding mesenteric Fat and small amount of ascites. Postsurgical changes to the distal sigmoid colon Diverticulosis. No evidence of diverticulitis. Appendix not seen. No free air. ABDOMINAL WALL: No significant hernia is appreciated. LYMPH NODES: Small upper abdominal retroperitoneal nodes. VASCULAR: Severe atherosclerotic disease. No aneurysm PELVIC VISCERA: Unremarkable. OSSEOUS STRUCTURES: Degenerative changes. CT/CT abdomen pelvis w IV con IMPRESSION: Partial distal bowel obstruction with caliber change in the distal small bowel in the right lower quadrant. There is question of wall thickening in this region. Stranding of the mesenteric fat and small amount of ascites. Diverticulosis. No evidence of diverticulitis. Fleischner guidelines were followed.
[2023-12-02 08:03] VITALS: BP 157/79; PULSE 78; RESP 20; TEMP 36.5; O2SAT 98; BMI 23.8
--- NOTE | 2023-12-02 08:19 | ECG_ITS ---
Test Reason : ABD PAIN Blood Pressure : / mmHG Vent. Rate : 065 BPM Atrial Rate : 065 BPM P-R Int : 186 ms QRS Dur : 076 ms QT Int : 406 ms P-R-T Axes : 012 -01 060 degrees QTc Int : 422 ms Normal sinus rhythm Normal ECG When compared with ECG of 04-APR-2023 13:44, Premature ventricular complexes are no longer Present NV interval has decreased Nonspecific T wave abnormality, improved in Lateral leads Referred By: Ingrid Goldsmith Electronically Signed By:FELIX GARCIA MD
--- NOTE | 2023-12-02 08:37 | ED_ITS ---
HPI - Abdominal Pain General Chief Complaint: Abdominal Pain Stated Complaint: ABD PAIN Time Seen by Provider: 12/02/23 08:18 Source: patient Mode of arrival: EMS History of Present Illness HPI narrative: 88-year-old male with history of bowel obstructions presents via EMS with onset of significant abdominal discomfort with associated nausea since approximately 0330 this morning. He reports he is potentially having small amounts of flatus but otherwise denies urinary symptoms, fevers, chills. Related Data Home Medications Medication Instructions Recorded Confirmed aspirin 81 mg tablet,delayed 81 mg PO DAILY 12/01/22 12/02/23 release cyanocobalamin (vitamin B-12) 1,000 mcg PO DAILY 12/01/22 12/02/23 1,000 mcg tablet docusate sodium 100 mg capsule 100 mg PO DAILY PRN Constipation 04/04/23 12/02/23 clopidogrel 75 mg tablet 75 mg PO DAILY 11/16/23 12/02/23 metoprolol tartrate 25 mg tablet 12.5 mg PO DAILY 11/29/23 12/02/23 Previous Rx's Medication Instructions Recorded rosuvastatin 10 mg tablet (Crestor) 10 mg PO DAILY #90 tabs 11/15/22 lactulose 10 gram/15 mL oral 30 ml PO DAILY PRN for 10/17/23 solution constipation #946 mL Allergies Allergy/AdvReac Type Severity Reaction Status Date / Time diphenhydramine AdvReac Intermediate Hallucinati Verified 11/30/23 13:01 [From Benadryl] ons Review of Systems Review of Systems Pertinent positives and negatives as stated in HPI PMFSH Past Medical History Source: nursing notes reviewed Medical History History of trigger finger Arthritis Rectal cancer Bladder neck contracture GERD (gastroesophageal reflux disease) Urinary incontinence Obstructive sleep apnea Coronary artery disease Type 2 diabetes mellitus with hyperglycemia Small bowel obstruction Erectile dysfunction Overweight (BMI 25.0-29.9) Peripheral vascular disease Hematuria Constipation BPH (benign prostatic hyperplasia) Prostate cancer Colon cancer Dysuria Hyperlipidemia, unspecified Essential hypertension Surgical History History of coronary artery stent placement History of exploratory laparotomy History of carpal tunnel release History of prostate surgery (~2016) History of bladder surgery (~01/04/18) History of colectomy History of appendectomy Family History Family History Father Pancreatic cancer Mother No problems noted. Brother Liver cancer Social History Social History Household Members: Other Household Members Other:: Granddaughter Housing: House Are you a primary small animal caretaker to a significant other at home: No Do you presently have visiting nurse or other home services: No Alcohol intake: never Patient Tobacco Use Status: Never used Tobacco Tobacco use type: Cigar e-Cigarette/Vaping Use: Never Used Second Hand Smoke Exposure: No Advance Directives: Yes Advance Directives on File: Yes Advance Directives Date on File: 09/29/20 service: Yes ([employer]) Current occupational status: retired Cognitive needs: Yes (cane) Hearing needs: Yes (hearing aide) Vision needs: Yes (glasses) Physical Exam ED Vital Signs: Vital Signs - 24 hr 12/02/23 08:03 Temperature 97.7 F Pulse Rate 78 Respiratory Rate 20 Blood Pressure 157/79 H Pulse Oximetry 98 Oxygen Delivery Method Room Air BMI result Body Mass Index 23.8 VITAL SIGNS: Reviewed. GENERAL: Well developed, well nourished, in no acute distress. HEAD: Normocephalic/atraumatic EYES: PERRLA, EOMI EARS: Ext canals without abnormality NOSE: Nares patent bilateral OROPHARYNX: no oral lesions noted, posterior pharynx clear NECK: Supple, no adenopathy LUNGS: Normal breath sounds. No adventitious sounds or accessory muscle use. SpO2<98> CARDIOVASCULAR: Regular rate and rhythm without noted murmurs, no JVD or lower extremity edema. ABDOMEN: Distended, taut, significant tenderness to palpation and appears possibly peritonitic, hypoactive bowel sounds MUSCULOSKELETAL: No tenderness, deformities, or effusions noted on gross inspection. EXTREMITIES: No cyanosis, clubbing or edema. SKIN: Inspection of the skin reveals no rashes NEUROLOGIC: Alert and oriented x 4. Strength and sensation to light touch were grossly intact x 4. Medical Decision Making Medical Decision Making MDM Narrative: 88-year-old male with history and clinical presentation, DDX: Perforation, obstruction, aortic pathology I reviewed all investigations and hematologic indices demonstrates a leukocytosis with a left shift for which patient will receive antibiotics and otherwise there is no anemia or thrombocytopenia. Chemistry indices are not consistent with WILMAN or electrolyte/liver enzyme derangements and high sensitivity troponin is chronically detected/elevated without any associated EKG changes and no complaints of chest pain. CT scan on my read consistent with small bowel obstruction and appearance of transition point within the right lower quadrant. 0933: I consulted with General surgery, Dr. Randle, who accepts admission and agrees with placement of NG which patient is now declining. Differential Diagnosis Differential Diagnoses: The differential diagnosis associated with the presentation includes Please see the discussion above Admission/Observation Consideration of admission/observation: Escalation of care including admission/observation considered Please see the discussion above Consult Healthcare Provider Management of the patient was discussed with: [employer] Supervisor Please see the discussion above Lab Data MDM Lab Attestation statement: I reviewed the patient's lab results. Please see the discussion above 12/02/23 08:57 12/02/23 08:57 Labs: Lab Results 12/02/23 Range/Units 08:57 WBC 12.1 H (4.8-10.8) X10*3/uL RBC 5.06 D (4.60-5.80) X10*6/uL Hgb 14.7 D (14.0-18.0) g/dl Hct 43.5 D (42.0-52.0) % MCV 86.0 (80.0-98.0) fL MCH 29.1 (27.0-33.0) pg MCHC 33.8 (31.0-36.0) g/dl RDW 12.7 (11.0-16.0) % Plt Count 256 D (160-400) X10*3/uL MPV 9.8 (9.4-12.4) fL Immature Gran % (Auto) 0.3 (0.0-0.4) % Neut % (Auto) 76.3 H (45-73) % Lymph % (Auto) 15.2 L (20-40) % [place] % (Auto) 6.0 (2-11) % Eos % (Auto) 1.8 (0-4) % Baso % (Auto) 0.4 (0-2) % Lymph # (Auto) 1.9 (1.2-4.9) X10*3/uL [place] # (Auto) 0.7 (0.1-1.2) X10*3/uL Eos # (Auto) 0.2 (0.0-0.4) X10*3/uL Baso # (Auto) 0.1 (0.0-0.2) X10*3/uL Abs Immat Gran (auto) 0.04 H (0.00-0.03) X10*3/uL Absolute Neuts (auto) 9.3 H (2.0-8.3) x10*3/uL Absolute Nucleated RBC 0.000 (0.0-0.012) X10*3/uL Nucleated RBC % (auto) 0.0 (0.0-0.2) /100WBC Sodium 139 (135-145) mmol/L Potassium 4.3 (3.3-5.1) mmol/L Chloride 109 H (96-108) mmol/L Carbon Dioxide 21 L (22-29) mmol/L Anion Gap 13 (12-20) BUN 13 (9-16) mg/dL Creatinine 0.84 (0.5-1.4) mg/dL Estim Creat Clear Calc 72.0 Estimated GFR > 60 Random Glucose 144 H (60-115) mg/dL Lactic Acid 1.7 (0.5-2.0) mmol/L Calcium 9.7 D (8.4-10.2) mg/dL Total Bilirubin 0.5 (0.0-1.0) mg/dL AST 15 (5-37) U/L ALT 13 (0-40) U/L Alkaline Phosphatase 80 (39-117) U/L Troponin I High Sens 24.3 D (<3.5-35.0) ng/L Total Protein 6.7 (6.5-8.0) g/dL Albumin 3.9 (3.5-5.0) g/dL Independent Interpretation I performed an independent interpretation of an: EKG Interpretation: Normal sinus rhythm, HR-65, no STEMI, AL/QRS/QTC is within normal limits. There are no significant changes in the inferior leads when compared to prior EKG from 04/04/2023. Radiology Impression Discussion of test interpretation with radiology: I have reviewed the radiologist's reading. Radiologist Impression: Please see the discussion above External Record Review External record reviewed: Outpatient record, Prior outpatient labs and Prior outpatient radiology Chronic Conditions Patient?s care impacted by: Diabetes and Hypertension Medications Administered Discontinued Medications Generic Name Dose Route Start Last Admin Trade Name Jewels PRN Reason Stop Dose Admin Fentanyl 50 mcg 12/02/23 08:49 12/02/23 09:04 Fentanyl Citrate/Pf 100 Mcg/2 Ml Vial IVPUSH 12/02/23 08:50 50 mcg ONCE ONE Administration Protocol Piperacillin Sod/Tazobactam 50 mls @ 100 mls/hr 12/02/23 09:47 12/02/23 10:04 Sod 3.375 gm/ Sodium Chloride IV 12/02/23 10:16 100 mls/hr ONCE ONE Administration Sodium Chloride 500 mls @ 999 mls/hr 12/02/23 10:00 12/02/23 10:05 Ns IV 12/02/23 10:30 999 mls/hr .Q31M KRISTINE Administration Iohexol 85 ml 12/02/23 09:21 12/02/23 09:21 Iohexol 350 Mg/Ml 100 Ml Infus..Btl IV 12/02/23 09:22 85 ml ONCE ONE Administration Ondansetron HCl 4 mg 12/02/23 08:49 12/02/23 09:04 Ondansetron Hcl 4 Mg/2 Ml Vial IVPUSH 12/02/23 08:50 4 mg ONCE ONE Administration Critical Care Time Critical Care Time Critical Care Time: Yes Total Critical Care Time: 60 Attestation: I personally attest to this time spent taking care of the patient. Discharge Plan Discharge Clinical Impression: SBO (small bowel obstruction) Patient Disposition: Admitted As Inpatient
[2023-12-02 09:02] LABS: MANUAL DIFF FLAG NO
[2023-12-02 09:03] LABS: Basophils Absolute Auto 0.1 X10*3/uL (0.0-0.2); Basophils Percent Auto 0.4 % (0-2); Eosinophils Absolute Auto 0.2 X10*3/uL (0.0-0.4); Eosinophils Percent Auto 1.8 % (0-4); Hematocrit 43.5 % (42.0-52.0); Hemoglobin 14.7 g/dl (14.0-18.0); Imm Gran Abs Auto 0.04 X10*3/uL (0.00-0.03); Imm Gran Pct Auto 0.3 % (0.0-0.4); Lymphocytes Absolute Auto 1.9 X10*3/uL (1.2-4.9); Lymphocytes Percent Auto 15.2 % (20-40); Mean Corpuscular HGB Conc 33.8 g/dl (31.0-36.0); Mean Corpuscular Hemoglobin 29.1 pg (27.0-33.0); Mean Platelet Volume 9.8 fL (9.4-12.4); Monocytes Absolute Auto 0.7 X10*3/uL (0.1-1.2); Neutrophils Absolute Auto 9.3 x10*3/uL (2.0-8.3); Neutrophils Percent Auto 76.3 % (45-73); Platelet Count 256 X10*3/uL (160-400); Red Blood Count 5.06 X10*6/uL (4.60-5.80); Red Cell Distribution Width 12.7 % (11.0-16.0); White Blood Count 12.1 X10*3/uL (4.8-10.8)
[2023-12-02] MEDS: fentaNYL citrate/PF 100 MCG/2 ML VIAL 50 MCG IVPUSH (09:04)
[2023-12-02] MEDS: ondansetron HCL 4 MG/2 ML VIAL IVPUSH (09:04)
[2023-12-02 09:19] LABS: Lactic Acid 1.7 mmol/L (0.5-2.0)
[2023-12-02] MEDS: iohexoL 350 MG/ML 100 ML INFUS..BTL 85 ML IV (09:21)
[2023-12-02 09:23] LABS: Alanine Aminotransferase 13 U/L (0-40); Albumin Level 3.9 g/dL (3.5-5.0); Alkaline Phosphatase 80 U/L (39-117); Anion Gap 13 (12-20); Aspartate Amino Transferase 15 U/L (5-37); Bilirubin Total 0.5 mg/dL (0.0-1.0); Blood Urea Nitrogen 13 mg/dL (9-16); Calcium 9.7 mg/dL (8.4-10.2); Carbon Dioxide 21 mmol/L (22-29); Chloride 109 mmol/L (96-108); Estimated Glomerular Filt Rate > 60; Glucose Random 144 mg/dL (60-115); Potassium 4.3 mmol/L (3.3-5.1); Sodium 139 mmol/L (135-145); Total Protein 6.7 g/dL (6.5-8.0)
[2023-12-02 09:30] LABS: Troponin-I High Sensitivity 24.3 ng/L (<3.5-35.0)
--- NOTE | 2023-12-02 09:52 | PC.NURSE ---
patient reporting improvement in pain after medication. informed of the need for NG tube, patient adamantly declining NG tube at this time.
--- NOTE | 2023-12-02 10:01 | P.HPGS_ITS ---
History of Present Illness History of Present Illness Date of Service: 12/02/23 Chief complaint: Partial small-bowel obstruction Narrative: Geoffrey Bone is a 88 year old male with PMH significant for coronary artery disease, status post cardiac stent placement 1 week ago, carotid artery disease, awaiting carotid endarterectomy on Monday, colorectal cancer status post resection, hx of small bowel obstructions, diet-controlled diabetes mellitus, prostate cancer, essential hypertension who presented to the ED with complaints of severe, diffuse abd pain. He has had a previous history of bowel obstructions which have resolved non operatively and was well since January 2023. He developed severe abdominal pain during the night last night and subsequently presented to the emergency department for further evaluation. He tried taking lactulose without any results. The pain is associated with nausea without vomiting. In the ED, he was noted to be diffusely tender. Laboratory showed an elevated WBC of 12.1, likely reactive. He is afebrile with stable vital signs. CT abdomen and pelvis revealed dilated loops of small bowel without a clear transition point but with air-fluid level suggestive of a partial obstruction. There is gas and stool within the colon. Official radiology reading is not available at the time of this dictation. Review of Systems Constitutional: Constitutional: Denies chills, Denies fever(s) and Denies malaise ENT: Denies dizziness Gastrointestinal: Gastrointestinal: Reports as per HPI and Denies vomiting Genitourinary: Genitourinary: Denies hematuria Integumentary/Breasts: Skin/Breast: Denies rash Neurologic: Denies dizziness PMFSH Past Medical History Medical History History of trigger finger Arthritis Rectal cancer Bladder neck contracture GERD (gastroesophageal reflux disease) Urinary incontinence Obstructive sleep apnea Coronary artery disease Type 2 diabetes mellitus with hyperglycemia Small bowel obstruction Erectile dysfunction Overweight (BMI 25.0-29.9) Peripheral vascular disease Hematuria Constipation BPH (benign prostatic hyperplasia) Prostate cancer Colon cancer Dysuria Hyperlipidemia, unspecified Essential hypertension Family History Family History Father Pancreatic cancer Mother No problems noted. Brother Liver cancer Surgical History Surgical History History of coronary artery stent placement History of exploratory laparotomy History of carpal tunnel release History of prostate surgery (~2017) History of bladder surgery (~01/04/18) History of colectomy History of appendectomy Social History Social History Household Members: Other Household Members Other:: Granddaughter Housing: House Are you a primary grounds caretaker to a significant other at home: No Do you presently have visiting nurse or other home services: No Alcohol intake: never Patient Tobacco Use Status: Never used Tobacco Tobacco use type: Cigar e-Cigarette/Vaping Use: Never Used Second Hand Smoke Exposure: No Advance Directives: Yes Advance Directives on File: Yes Advance Directives Date on File: 09/29/20 service: Yes ([employer]) Current occupational status: retired Cognitive needs: Yes (cane) Hearing needs: Yes (hearing aide) Vision needs: Yes (glasses) Meds Allergies Allergy/AdvReac Type Severity Reaction Status Date / Time diphenhydramine AdvReac Intermediate Hallucinati Verified 11/30/23 13:01 [From Rissal] ons Active Medications: Current Medications Hydromorphone HCl (Hydromorphone Hcl 0.5 Mg/0.5 Ml Syringe) 0.5 mg IVPUSH Q3H PRN; Protocol PRN Reason: Pain, Severe (Pain Scale 7-10) Piperacillin Sod/Tazobactam (Sod 3.375 gm/ Sodium Chloride) 50 mls @ 100 mls/hr IV ONCE ONE Stop: 12/02/23 10:16 Sodium Chloride (Ns) 500 mls @ 999 mls/hr IV .Q31M KRISTINE Stop: 12/02/23 10:30 Lactated Ringer's (Lr) 1,000 mls @ 100 mls/hr IVCONT .Q10H KRISTINE Acetaminophen (Ofirmev) 1,000 mg in 100 mls @ 400 mls/hr IV Q6H KRISTINE Stop: 12/03/23 04:14 Ondansetron HCl (Ondansetron Hcl 4 Mg/2 Ml Vial) 4 mg IVPUSH QID PRN PRN Reason: Nausea Sodium Chloride (0.9 % Sodium Chloride Flush 3 Ml Syringe) 3 ml IVFLUSH QSHIFT KRISTINE Zolpidem Tartrate (Zolpidem Tartrate 5 Mg Tablet) 5 mg PO BEDTIME PRN PRN Reason: Insomnia Home Medications Medication Instructions Recorded Confirmed Last Taken Type aspirin 81 mg tablet,delayed 81 mg PO DAILY 12/01/22 11/30/23 04/04/23 History release cyanocobalamin (vitamin B-12) 1,000 mcg PO DAILY 12/01/22 11/30/23 04/04/23 History 1,000 mcg tablet docusate sodium 100 mg capsule 100 mg PO DAILY PRN Constipation 04/04/23 11/30/23 Unknown History clopidogrel 75 mg tablet 75 mg PO DAILY 11/16/23 11/30/23 Unknown History metoprolol tartrate 25 mg tablet 12.5 mg PO DAILY 11/29/23 11/30/23 Unknown History Physical Exam Vital Signs: Vital Signs: Last Vital Signs Temp 97.7 F 12/02/23 08:03 Pulse 78 12/02/23 08:03 Resp 20 12/02/23 08:03 BP 157/79 H 12/02/23 08:03 Pulse Ox 98 12/02/23 08:03 O2 Del Method Room Air 12/02/23 08:03 BMI result Body Mass Index 23.8 Const: General: no acute distress and alert Nutritional Appearance: well nourished Orientation/consciousness: patient oriented x3 HEENT: Head: Yes normocephalic and Yes atraumatic Resp: Effort & Inspection: normal respiratory effort, no audible wheezes, no cough and no respiratory distress GI: Inspection: No distended Palpation (GI): Soft to palpation, Tenderness to palpation present (GI) in the LLQ and in the RLQ; with no rebound tenderness, no guarding and not rigid Percussion: Yes normal to percussion Auscultation: Absent bowel sounds Skin: General skin exam: no rashes or lesions noted Neuro: General: patient oriented x3 Extrem: General: Yes no clubbing, cyanosis or edema Results Results Labs: Short CBC 12/02/23 Range/Units 08:57 WBC 12.1 H (4.8-10.8) X10*3/uL Hgb 14.7 D (14.0-18.0) g/dl Hct 43.5 D (42.0-52.0) % Plt Count 256 D (160-400) X10*3/uL BMP 02/03/24 08:57 Sodium 139 Potassium 4.3 Chloride 109 H Carbon Dioxide 21 L BUN 13 Creatinine 0.84 Calcium 9.7 D Liver Function 12/02/23 Range/Units 08:57 Total Bilirubin 0.5 (0.0-1.0) mg/dL AST 15 (5-37) U/L ALT 13 (0-40) U/L Alkaline Phosphatase 80 (39-117) U/L Albumin 3.9 (3.5-5.0) g/dL Assessment and Plan (1) Symptomatic stenosis of left carotid artery: Status: Acute (2) Abdominal pain: Qualifiers: Abdominal location: generalized Qualified Code(s): R10.84 - Generalized abdominal pain Status: Resolved (3) Partial small bowel obstruction: Status: Resolved Plan 88-year-old male patient well known to service with numerous previous episodes of partial small-bowel obstruction returning today with complaints of diffuse abdominal pain which began yesterday. He tried a period of bowel rest and lactulose however the pain became so severe that he presented to the emergency department. Workup with CT abdomen and pelvis indicates dilated loops of small bowel with air-fluid levels suggestive of a partial obstruction. The patient recently underwent cardiac stent placement and will require continued aspirin and Plavix. He is also scheduled for carotid surgery on Monday. He will be kept NPO and on IV fluids. NG tube to be placed in the emergency department. Mild bump of his WBC properly reactive due to the dilated loops of small bowel. No evidence of sepsis at this time. Will request hospitalist consultation for medical management. Quality Stroke Does the patient have a stroke diagnosis?: Yes Reason for No Anti-thrombotic by Day Two: N/A - Med Ordered VTE Prior VTE?: No VTE Risk Level:: Surgical - moderate VTE Device Contraindication: N/A - Device Ordered VTE Drug Contraindication: Treatment Not Indicated Procedures Date of Service Date of Service: 12/02/23
[2023-12-02] MEDS: Piperacillin Sodium/Tazobactam 3.375 GM in 0.9 % Sodium Chloride 50 ML IV (10:04)
[2023-12-02] MEDS: 0.9 % Sodium Chloride 500 ML 999 ML IV (10:05)
[2023-12-02 10:06] VITALS: BP 124/67; PULSE 75; RESP 18; TEMP 36.3; O2SAT 97
--- NOTE | 2023-12-02 10:08 | PC.NURSE ---
iv fluids infusing, medicated per the MAR.
--- NOTE | 2023-12-02 10:14 | PHA.MEDREC ---
Pharmacy Consult ? Medication Reconciliation Pharmacy has completed the medication reconciliation. spoke with patient to confirm medications.
[2023-12-02 10:42] LABS: Prothrombin Time 11.9 SEC (11.1-13.3)
[2023-12-02] MEDS: Acetaminophen 1,000 MG/100 ML PIGGYBACK 400 MG IV ×3 (11:13→22:09)
[2023-12-02] MEDS: Aspirin 81 MG TAB.CHEW PO (11:17)
[2023-12-02] MEDS: Heparin Sodium,Porcine 5,000 UNIT/ML VIAL 5000 UNIT SUBCUT ×2 (11:17→22:09)
[2023-12-02] MEDS: Metoprolol Tartrate 12.5 MG HALFTAB PO (11:17)
[2023-12-02] MEDS: Clopidogrel Bisulfate 75 MG TABLET PO (11:18)
[2023-12-02] MEDS: Lactated Ringers 1,000 ML 100 ML IVCONT ×2 (11:18→21:24)
--- NOTE | 2023-12-02 11:39 | P.CONHOSP_ITS ---
History of Present Illness Data of Consult Service Date: 12/02/23 Requesting physician: Simon Randle Primary Care Provider: Pro Nunn MD HPI Reason for consult: medical management 88 year old male with history of non insulin dependent type 2 diabetes, bph, pvd, htn, hld, torres not on cpap, cad s/p NICOLE RCA 11/22/23 on DAPT, and hx colorectal ca s/p resection admitted to general surgery with consult placed to hospitalist service for medical management. Scheduled for carotid endartertectomy on Monday. The patient is reporting diffuse abd pain and nausea, no vomiting. Has hx SBO resolved with medical management. Denies chest pain, sob, lightheadedness, bowser, orthopnea. No fevers or chills. No cigarette use, hx cigar smoking. No etoh use or illicit drug use. Review of Systems 2 Review of Systems: General: No fevers, malaise, unintentional weight loss HEENT: No blurred vision, diplopia. No sore throat, nasal congestion, rhinorrhea, sinus pain, ear pain Cardiovascular: No chest pain, palpitations, or leg edema Respiratory: No shortness of breath, wheezing, cough GI: +abd pain, +nausea. No vomiting, diarrhea, constipation, melena, hematochezia : No dysuria, hematuria, increased urinary frequency, decreased urinary output MSK: No myalgia, back pain Neuro: No headaches, weakness, paresthesias Skin: No rashes or lesions [facility] Medical History History of trigger finger Arthritis Rectal cancer Bladder neck contracture GERD (gastroesophageal reflux disease) Urinary incontinence Obstructive sleep apnea Coronary artery disease Type 2 diabetes mellitus with hyperglycemia Small bowel obstruction Erectile dysfunction Overweight (BMI 25.0-29.9) Peripheral vascular disease Hematuria Constipation BPH (benign prostatic hyperplasia) Prostate cancer Colon cancer Dysuria Hyperlipidemia, unspecified Essential hypertension Family History Father Pancreatic cancer Mother No problems noted. Brother Liver cancer Surgical History History of coronary artery stent placement History of exploratory laparotomy History of carpal tunnel release History of prostate surgery (~2016) History of bladder surgery (~01/04/18) History of colectomy History of appendectomy Social History Household Members: Other Household Members Other:: Granddaughter Housing: House Are you a primary manager medicare to a significant other at home: No Do you presently have visiting nurse or other home services: No Alcohol intake: never Patient Tobacco Use Status: Never used Tobacco Tobacco use type: Cigar e-Cigarette/Vaping Use: Never Used Second Hand Smoke Exposure: No Advance Directives Date on File: 09/29/20 service: Yes ([employer]) Current occupational status: retired Cognitive needs: Yes (cane) Hearing needs: Yes (hearing aide) Vision needs: Yes (glasses) Meds Allergies Allergy/AdvReac Type Severity Reaction Status Date / Time diphenhydramine AdvReac Intermediate Hallucinati Verified 11/30/23 13:01 [From Tereza] ons Active Medications: Current Medications Aspirin (Aspirin 81 Mg Tab.Chew) 81 mg PO DAILY [facility] Last Admin: 12/02/23 11:17 Dose: 81 mg Clopidogrel Bisulfate (Clopidogrel Bisulfate 75 Mg Tablet) 75 mg PO DAILY [facility] Last Admin: 12/02/23 11:18 Dose: 75 mg Heparin Sodium (Porcine) (Heparin Sodium,Porcine 5,000 Unit/Ml Vial) 5,000 unit SUBCUT Q12H [facility] Stop: 12/04/23 00:00 Last Admin: 12/02/23 11:17 Dose: 5,000 unit Hydromorphone HCl (Hydromorphone Hcl 0.5 Mg/0.5 Ml Syringe) 0.5 mg IVPUSH Q3H PRN; Protocol PRN Reason: Pain, Severe (Pain Scale 7-10) Lactated Ringer's (Lr) 1,000 mls @ 100 mls/hr IVCONT .Q10H [facility] Last Admin: 12/02/23 11:18 Dose: 100 mls/hr Acetaminophen (Ofirmev) 1,000 mg in 100 mls @ 400 mls/hr IV Q6H [facility] Stop: 12/03/23 04:14 Last Admin: 12/02/23 11:13 Dose: 400 mls/hr Metoprolol Tartrate (Metoprolol Tartrate 12.5 Mg Halftab) 12.5 mg PO DAILY [facility]; Protocol Last Admin: 12/02/23 11:17 Dose: 12.5 mg Ondansetron HCl (Ondansetron Hcl 4 Mg/2 Ml Vial) 4 mg IVPUSH QID PRN PRN Reason: Nausea Sodium Chloride (0.9 % Sodium Chloride Flush 3 Ml Syringe) 3 ml IVFLUSH QSHIFT [facility] Zolpidem Tartrate (Zolpidem Tartrate 5 Mg Tablet) 5 mg PO BEDTIME PRN PRN Reason: Insomnia Home Medications Medication Instructions Recorded Confirmed Last Taken Type aspirin 81 mg tablet,delayed 81 mg PO DAILY 12/01/22 12/02/23 04/04/23 History release cyanocobalamin (vitamin B-12) 1,000 mcg PO DAILY 12/01/22 12/02/23 04/04/23 History 1,000 mcg tablet docusate sodium 100 mg capsule 100 mg PO DAILY PRN Constipation 04/04/23 12/02/23 Unknown History clopidogrel 75 mg tablet 75 mg PO DAILY 11/16/23 12/02/23 Unknown History metoprolol tartrate 25 mg tablet 12.5 mg PO DAILY 11/29/23 12/02/23 Unknown History Physical Exam 2 Vital Signs and Narrative: Vital Signs: Last Vital Signs Temp 97.3 F 12/02/23 10:06 Pulse 75 12/02/23 10:06 Resp 18 12/02/23 10:06 BP 124/67 12/02/23 10:06 Pulse Ox 97 12/02/23 10:06 O2 Del Method Room Air 12/02/23 10:06 BMI result Body Mass Index 23.8 Constitutional - Awake and Alert, No apparent distress Eyes - PERRLA, EOMI Cardiovascular - S1S2, RRR, No edema Respiratory - Normal lung expansion, Normal respiratory effort, No respiratory distress, CTA bilaterally Gastrointestinal - diffuse abd ttp wihtout guarding or rebound. ND; +BS Extremities - no calf tenderness bilaterally, no swelling Skin - Warm/Dry Neurological - Alert & oriented x3 Psychological - Appropriate affect Results Labs 12/02/23 08:57 12/02/23 08:57 Labs: Laboratory Results - last 24 hr 12/02/23 08:57 MCV 86.0 MCH 29.1 MCHC 33.8 RDW 12.7 Plt Count 256 D MPV 9.8 Immature Gran % (Auto) 0.3 Neut % (Auto) 76.3 H Lymph % (Auto) 15.2 L [place] % (Auto) 6.0 Eos % (Auto) 1.8 Baso % (Auto) 0.4 Lymph # (Auto) 1.9 [place] # (Auto) 0.7 Eos # (Auto) 0.2 Baso # (Auto) 0.1 Abs Immat Gran (auto) 0.04 H Absolute Neuts (auto) 9.3 H Absolute Nucleated RBC 0.000 Nucleated RBC % (auto) 0.0 PT 11.9 INR 1.0 Anion Gap 13 Estim Creat Clear Calc 72.0 Estimated GFR > 60 Random Glucose 144 H Lactic Acid 1.7 Calcium 9.7 D Total Bilirubin 0.5 AST 15 ALT 13 Alkaline Phosphatase 80 Total Protein 6.7 Albumin 3.9 Imaging Radiologist's Impressions: Impressions Abdomen/Pelvis CT 12/02/23 09:28 IMPRESSION: Partial distal bowel obstruction with caliber change in the distal small bowel in the right lower quadrant. There is question of wall thickening in this region. Stranding of the mesenteric fat and small amount of ascites. Diverticulosis. No evidence of diverticulitis. Fleischner guidelines were followed. Assessment and Plan (1) SBO (small bowel obstruction): Status: Acute Plan 88 year old male with history of non insulin dependent type 2 diabetes, bph, pvd, htn, hld, torres not on cpap, cad s/p NICOLE RCA 11/22/23 on DAPT, and hx colorectal ca s/p resection admitted to general surgery with consult placed to hospitalist service for medical management. #SBO -plan per general surgery #CAD -s/p NICOLE RCA 11/22 -continue DAPT -recommend cardiology evaluation for pre-op clearance if pt requires surgery #Non insulin dependent type 2 diabetes -initial dx 2004 with A1c 6.7%. Now well controlled with diet/lifestyle -poc glucose, diet advancement per general surgery -hold on ssi #HTN -bp reasonably controlled -cotninue metoprolol #HLD -continue statin #TORRES -pt reports does not require cpap Thank you for this consult, will continue following along with you
[2023-12-02 11:53] LABS: Appearance Urine Clear; Color Urine Yellow; Glucose Urine UA Negative (Negative); Leukocyte Esterase Urine Negative (Negative); Nitrite Urine Negative (Negative); Specific Gravity - Urine >= 1.030 (1.005-1.025); Urine Blood Negative (Negative); Urine Ketones Negative (Negative); Urine Protein Trace mg/dL (Neg-Trace)
[2023-12-02] MEDS: HYDROmorphone HCl 0.5 MG/0.5 ML SYRINGE IVPUSH (12:13)
[2023-12-02 12:17] VITALS: BMI 23.7
[2023-12-02 12:49] VITALS: BP 109/61; PULSE 77; RESP 18; TEMP 36.6; O2SAT 97
[2023-12-02 15:18] VITALS: BP 116/59; PULSE 84; RESP 17; TEMP 36.6; O2SAT 97
[2023-12-02 16:16] LABS: Glucose, Whole Blood 116 mg/dL (60-115)
--- NOTE | 2023-12-02 16:19 | PC.NURSE ---
Blood cultures obtained in ED.
[2023-12-02] MEDS: Magnesium Hydrox/Alum Hydrox 30 ML ORAL.SUSP PO (18:29)
[2023-12-02 18:58] VITALS: BP 85/51; PULSE 58; RESP 17; TEMP 36.8; O2SAT 94
[2023-12-02] MEDS: Lactated Ringers 1,000 ML 999 ML IV (19:24)
[2023-12-02 20:17] VITALS: BP 108/56
[2023-12-02 20:29] LABS: Glucose, Whole Blood 110 mg/dL (60-115)
--- NOTE | 2023-12-02 20:30 | PC.NURSE ---
LEAD DENTAL ASSISTANT reported to me at 1855 pt bp 85/51, HR 58, this nurse rechecked by manual bp 84/54. pt asymptomatic. answer all my questions, AOx4, dr Betancourt notified, received bolus LR 999mL/hr. given by this nurse. rechecked bp at 2014; 108/56. improved. will cont. monitor
[2023-12-03 02:50] VITALS: BP 143/67; PULSE 78; RESP 18; TEMP 36.6; O2SAT 94
[2023-12-03 05:49] LABS: MANUAL DIFF FLAG NO
[2023-12-03] MEDS: Lactated Ringers 1,000 ML 100 ML IVCONT ×2 (05:55→16:10)
[2023-12-03 05:57] LABS: Basophils Percent Auto 0.3 % (0-2); Eosinophils Absolute Auto 0.3 X10*3/uL (0.0-0.4); Hematocrit 35.2 % (42.0-52.0); Hemoglobin 11.7 g/dl (14.0-18.0); Imm Gran Abs Auto 0.01 X10*3/uL (0.00-0.03); Imm Gran Pct Auto 0.2 % (0.0-0.4); Lymphocytes Absolute Auto 1.7 X10*3/uL (1.2-4.9); Lymphocytes Percent Auto 26.9 % (20-40); Mean Corpuscular HGB Conc 33.2 g/dl (31.0-36.0); Mean Corpuscular Hemoglobin 29.4 pg (27.0-33.0); Mean Corpuscular Volume 88.4 fL (80.0-98.0); Mean Platelet Volume 10.3 fL (9.4-12.4); Monocytes Absolute Auto 0.6 X10*3/uL (0.1-1.2); Monocytes Percent Auto 10.1 % (2-11); Neutrophils Absolute Auto 3.6 x10*3/uL (2.0-8.3); Neutrophils Percent Auto 57.5 % (45-73); Platelet Count 202 X10*3/uL (160-400); Red Blood Count 3.98 X10*6/uL (4.60-5.80); Red Cell Distribution Width 12.8 % (11.0-16.0); White Blood Count 6.2 X10*3/uL (4.8-10.8)
[2023-12-03 06:13] LABS: Anion Gap 12 (12-20); Blood Urea Nitrogen 17 mg/dL (9-16); Carbon Dioxide 22 mmol/L (22-29); Chloride 110 mmol/L (96-108); Creatinine Clr Calc Pharmacy 76.5; Estimated Glomerular Filt Rate > 60; Glucose Random 89 mg/dL (60-115); Sodium 140 mmol/L (135-145)
--- NOTE | 2023-12-03 06:56 | PM.PNGS ---
Subjective Subjective Date of Service: 12/03/23 Interval history: Patient denies any abdominal pain at this time. He had a small bowel movement yesterday and reports having some appetite today, not quite normal. He had a period of hypotension yesterday which required an IV bolus. Physical Exam Vital Signs: Vital Signs: Last Vital Signs Temp 98 F 12/03/23 02:50 Pulse 78 12/03/23 02:50 Resp 18 12/03/23 02:50 BP 143/67 H 12/03/23 02:50 Pulse Ox 94 12/03/23 02:50 O2 Del Method Room Air 12/03/23 02:50 BMI result Body Mass Index 23.7 Const: General: comfortable and no acute distress Nutritional Appearance: well nourished Orientation/consciousness: patient oriented x3 Limitations: no limitations Resp: Effort & Inspection: normal respiratory effort, no audible wheezes, no cough and no respiratory distress GI: Other: Soft, nondistended, non tender, no rebound, guarding or rigidity. Skin: Other: Warm, dry, no rash Neuro: General: patient oriented x3 Extrem: Other: No edema Objective Data Active Medications Al Hydroxide/Mg Hydroxide (Magnesium Hydrox/Alum Hydrox 30 Ml Oral.Susp) 30 ml PO Q4H PRN PRN Reason: Heartburn Last Admin: 12/02/23 18:29 Dose: 30 ml Documented By: BETO Aspirin (Aspirin 81 Mg Tab.Chew) 81 mg PO DAILY [facility] Last Admin: 12/02/23 11:17 Dose: 81 mg Documented By: VALARIE Clopidogrel Bisulfate (Clopidogrel Bisulfate 75 Mg Tablet) 75 mg PO DAILY [facility] Last Admin: 12/02/23 11:18 Dose: 75 mg Documented By: VALARIE Dextrose (Dextrose 50 % 25 Gm/50 Ml Syringe) 25 gm IVPUSH Q15M PRN; Protocol PRN Reason: per Hypoglycemia Standing Ord. Glucose (Glucose Gel 15 Gm Gel..Gram.) 15 gm PO Q15M PRN; Protocol PRN Reason: per Hypoglycemia Standing Ord. Heparin Sodium (Porcine) (Heparin Sodium,Porcine 5,000 Unit/Ml Vial) 5,000 unit SUBCUT Q12H [facility] Stop: 12/04/23 00:00 Last Admin: 12/02/23 22:09 Dose: 5,000 unit Documented By: REBEKAH Hydromorphone HCl (Hydromorphone Hcl 0.5 Mg/0.5 Ml Syringe) 0.5 mg IVPUSH Q3H PRN; Protocol PRN Reason: Pain, Severe (Pain Scale 7-10) Last Admin: 12/02/23 12:13 Dose: 0.5 mg Documented By: VASILE Lactated Ringer's (Lr) 1,000 mls @ 100 mls/hr IVCONT .Q10H [facility] Last Admin: 12/03/23 05:55 Dose: 100 mls/hr Documented By: REBEKAH Metoprolol Tartrate (Metoprolol Tartrate 12.5 Mg Halftab) 12.5 mg PO DAILY [facility]; Protocol Last Admin: 12/02/23 11:17 Dose: 12.5 mg Documented By: VALARIE Ondansetron HCl (Ondansetron Hcl 4 Mg/2 Ml Vial) 4 mg IVPUSH QID PRN PRN Reason: Nausea Sodium Chloride (0.9 % Sodium Chloride Flush 3 Ml Syringe) 3 ml IVFLUSH QSHIFT [facility] Last Admin: 12/02/23 22:54 Dose: Not Given Documented By: REBEKAH Non-Admin Reason: IV Running Zolpidem Tartrate (Zolpidem Tartrate 5 Mg Tablet) 5 mg PO BEDTIME PRN PRN Reason: Insomnia Labs 12/03/23 05:08 12/03/23 05:08 Labs: Laboratory Results - last 24 hr 12/02/23 12/02/23 12/02/23 08:57 11:39 16:10 MCV 86.0 MCH 29.1 MCHC 33.8 RDW 12.7 Plt Count 256 D MPV 9.8 Immature Gran % (Auto) 0.3 Neut % (Auto) 76.3 H Lymph % (Auto) 15.2 L [place] % (Auto) 6.0 Eos % (Auto) 1.8 Baso % (Auto) 0.4 Lymph # (Auto) 1.9 [place] # (Auto) 0.7 Eos # (Auto) 0.2 Baso # (Auto) 0.1 Abs Immat Gran (auto) 0.04 H Absolute Neuts (auto) 9.3 H Absolute Nucleated RBC 0.000 Nucleated RBC % (auto) 0.0 PT 11.9 INR 1.0 Anion Gap 13 Estim Creat Clear Calc 72.0 Estimated GFR > 60 POC Glucose 116 H Random Glucose 144 H Lactic Acid 1.7 Calcium 9.7 D Total Bilirubin 0.5 AST 15 ALT 13 Alkaline Phosphatase 80 Total Protein 6.7 Albumin 3.9 Urine Color Yellow Urine Appearance Clear Urine pH 5.0 Ur Specific [place] >= 1.030 H Urine Protein Trace Urine Glucose (UA) Negative Urine Ketones Negative Urine Blood Negative Urine Nitrite Negative Ur Leukocyte Esterase Negative 12/02/23 12/03/23 20:16 05:08 MCV 88.4 MCH 29.4 MCHC 33.2 RDW 12.8 Plt Count 202 MPV 10.3 Immature Gran % (Auto) 0.2 Neut % (Auto) 57.5 Lymph % (Auto) 26.9 [place] % (Auto) 10.1 Eos % (Auto) 5.0 H Baso % (Auto) 0.3 Lymph # (Auto) 1.7 [place] # (Auto) 0.6 Eos # (Auto) 0.3 Baso # (Auto) 0.0 Abs Immat Gran (auto) 0.01 Absolute Neuts (auto) 3.6 Absolute Nucleated RBC 0.000 Nucleated RBC % (auto) 0.0 PT INR Anion Gap 12 Estim Creat Clear Calc 76.5 Estimated GFR > 60 POC Glucose 110 Random Glucose 89 Lactic Acid Calcium 8.0 L D Total Bilirubin AST ALT Alkaline Phosphatase Total Protein Albumin Urine Color Urine Appearance Urine pH Ur Specific [place] Urine Protein Urine Glucose (UA) Urine Ketones Urine Blood Urine Nitrite Ur Leukocyte Esterase Procedures Date of Service Date of Service: 12/03/23 Progress Note: A&P Assessment and plan (1) SBO (small bowel obstruction): Status: Acute Assessment and Plan: Overall the small-bowel obstruction is improved today with no further abdominal pain, nausea or vomiting. He did pass a small bowel movement yesterday. I will start him on a clear liquid diet today. (2) Symptomatic stenosis of left carotid artery: Status: Acute Assessment and Plan: Patient is scheduled for left carotid endarterectomy with tomorrow. Continue aspirin and Plavix following the stent placement. NPO after midnight. Patient previously seen by Dr. Pina for cardiac clearance on 11/30/2023. Time Spent With Patient Time: Total time managing care of this patient today ____ minutes. Quality Stroke Does the patient have a stroke diagnosis?: Yes Reason for No Anti-thrombotic by Day Two: N/A - Med Ordered VTE Prior VTE?: No VTE Risk Level:: Surgical - moderate VTE Device Contraindication: N/A - Device Ordered VTE Drug Contraindication: Treatment Not Indicated
[2023-12-03 07:22] VITALS: BP 133/59; PULSE 66; RESP 17; TEMP 36.6; O2SAT 92
[2023-12-03 07:38] LABS: Glucose, Whole Blood 88 mg/dL (60-115)
[2023-12-03] MEDS: Metoprolol Tartrate 12.5 MG HALFTAB PO (08:29)
[2023-12-03] MEDS: Clopidogrel Bisulfate 75 MG TABLET PO (08:29)
[2023-12-03] MEDS: Aspirin 81 MG TAB.CHEW PO (08:29)
--- NOTE | 2023-12-03 08:42 | HO.PM.IMPN ---
Subjective Subjective Date of Service: 12/03/23 Interval History: Follow up SBO Had BM this morning no nausea, vomiting, diarrhea Review of Systems Review of Systems: Yes all other systems are reviewed and are negative Physical Exam Vital Signs: Vital Signs: Last Vital Signs Temp 97.8 F 12/03/23 07:22 Pulse 66 12/03/23 07:22 Resp 17 12/03/23 07:22 BP 133/59 L 12/03/23 07:22 Pulse Ox 92 12/03/23 07:22 O2 Del Method Room Air 12/03/23 07:22 BMI result Body Mass Index 23.7 Appearing in no acute distress lung sounds are clear to auscultation heart regular rate rhythm, clear S1, S2 positive bowel sounds, abdomen is soft, nontender neuro patient is alert x3, no focal deficits Objective Data Active Medications Al Hydroxide/Mg Hydroxide (Magnesium Hydrox/Alum Hydrox 30 Ml Oral.Susp) 30 ml PO Q4H PRN PRN Reason: Heartburn Last Admin: 12/02/23 18:29 Dose: 30 ml Documented By: BETO Aspirin (Aspirin 81 Mg Tab.Chew) 81 mg PO DAILY [facility] Last Admin: 12/03/23 08:29 Dose: 81 mg Documented By: VASILE Clopidogrel Bisulfate (Clopidogrel Bisulfate 75 Mg Tablet) 75 mg PO DAILY [facility] Last Admin: 12/03/23 08:29 Dose: 75 mg Documented By: VASILE Dextrose (Dextrose 50 % 25 Gm/50 Ml Syringe) 25 gm IVPUSH Q15M PRN; Protocol PRN Reason: per Hypoglycemia Standing Ord. Glucose (Glucose Gel 15 Gm Gel..Gram.) 15 gm PO Q15M PRN; Protocol PRN Reason: per Hypoglycemia Standing Ord. Heparin Sodium (Porcine) (Heparin Sodium,Porcine 5,000 Unit/Ml Vial) 5,000 unit SUBCUT Q12H [facility] Stop: 12/04/23 00:00 Last Admin: 12/02/23 22:09 Dose: 5,000 unit Documented By: REBEKAH Hydromorphone HCl (Hydromorphone Hcl 0.5 Mg/0.5 Ml Syringe) 0.5 mg IVPUSH Q3H PRN; Protocol PRN Reason: Pain, Severe (Pain Scale 7-10) Last Admin: 12/02/23 12:13 Dose: 0.5 mg Documented By: VASILE Lactated Ringer's (Lr) 1,000 mls @ 100 mls/hr IVCONT .Q10H [facility] Last Admin: 12/03/23 05:55 Dose: 100 mls/hr Documented By: REBEKAH Metoprolol Tartrate (Metoprolol Tartrate 12.5 Mg Halftab) 12.5 mg PO DAILY [facility]; Protocol Last Admin: 12/03/23 08:29 Dose: 12.5 mg Documented By: VASILE Ondansetron HCl (Ondansetron Hcl 4 Mg/2 Ml Vial) 4 mg IVPUSH QID PRN PRN Reason: Nausea Sodium Chloride (0.9 % Sodium Chloride Flush 3 Ml Syringe) 3 ml IVFLUSH QSHIFT [facility] Last Admin: 12/03/23 07:45 Dose: Not Given Documented By: VASILE Non-Admin Reason: IV Running Zolpidem Tartrate (Zolpidem Tartrate 5 Mg Tablet) 5 mg PO BEDTIME PRN PRN Reason: Insomnia Labs 12/03/23 05:08 12/03/23 05:08 Labs: Laboratory Results - last 24 hr 12/02/23 12/02/23 12/02/23 08:57 11:39 16:10 MCV 86.0 MCH 29.1 MCHC 33.8 RDW 12.7 Plt Count 256 D MPV 9.8 Immature Gran % (Auto) 0.3 Neut % (Auto) 76.3 H Lymph % (Auto) 15.2 L [place] % (Auto) 6.0 Eos % (Auto) 1.8 Baso % (Auto) 0.4 Lymph # (Auto) 1.9 [place] # (Auto) 0.7 Eos # (Auto) 0.2 Baso # (Auto) 0.1 Abs Immat Gran (auto) 0.04 H Absolute Neuts (auto) 9.3 H Absolute Nucleated RBC 0.000 Nucleated RBC % (auto) 0.0 PT 11.9 INR 1.0 Anion Gap 13 Estim Creat Clear Calc 72.0 Estimated GFR > 60 POC Glucose 116 H Random Glucose 144 H Lactic Acid 1.7 Calcium 9.7 D Total Bilirubin 0.5 AST 15 ALT 13 Alkaline Phosphatase 80 Total Protein 6.7 Albumin 3.9 Urine Color Yellow Urine Appearance Clear Urine pH 5.0 Ur Specific [place] >= 1.030 H Urine Protein Trace Urine Glucose (UA) Negative Urine Ketones Negative Urine Blood Negative Urine Nitrite Negative Ur Leukocyte Esterase Negative 12/02/23 12/03/23 12/03/23 20:16 05:08 07:21 MCV 88.4 MCH 29.4 MCHC 33.2 RDW 12.8 Plt Count 202 MPV 10.3 Immature Gran % (Auto) 0.2 Neut % (Auto) 57.5 Lymph % (Auto) 26.9 [place] % (Auto) 10.1 Eos % (Auto) 5.0 H Baso % (Auto) 0.3 Lymph # (Auto) 1.7 [place] # (Auto) 0.6 Eos # (Auto) 0.3 Baso # (Auto) 0.0 Abs Immat Gran (auto) 0.01 Absolute Neuts (auto) 3.6 Absolute Nucleated RBC 0.000 Nucleated RBC % (auto) 0.0 PT INR Anion Gap 12 Estim Creat Clear Calc 76.5 Estimated GFR > 60 POC Glucose 110 88 Random Glucose 89 Lactic Acid Calcium 8.0 L D Total Bilirubin AST ALT Alkaline Phosphatase Total Protein Albumin Urine Color Urine Appearance Urine pH Ur Specific [place] Urine Protein Urine Glucose (UA) Urine Ketones Urine Blood Urine Nitrite Ur Leukocyte Esterase Microbiology Microbiology Results: Microbiology 12/02/23 10:05 Blood Culture - Final Blood - Venous 12/02/23 10:05 Blood Culture - Final Blood - Venous Assessment and Plan (1) SBO (small bowel obstruction): Status: Acute (2) Symptomatic stenosis of left carotid artery: Status: Acute Plan 88 year old male with history of non insulin dependent type 2 diabetes, bph, pvd, htn, hld, torres not on cpap, cad s/p NICOLE RCA 11/22/23 on DAPT, and hx colorectal ca s/p resection admitted to general surgery with consult placed to hospitalist service for medical management. SBO had BM this morning no nausea or vomiting management as per surgical team Carotid stenosis Plan for left carotid endarterectomy 12/04/2023 Management as per vascular surgery CAD s/p NICOLE RCA 11/22 continue DAPT Non insulin dependent type 2 diabetes initial dx 2004 with A1c 6.7%. Now well controlled with diet/lifestyle poc glucose, diet advancement per general surgery hold on ssi HTN bp reasonably controlled continue metoprolol HLD continue statin TORRES pt reports does not require cpap DVT prophylaxis as per General surgery Attending Dr. Cuevas Full code Medical consultation complete. Will sign off for now Quality Stroke Does the patient have a stroke diagnosis?: Yes Reason for No Anti-thrombotic by Day Two: N/A - Med Ordered VTE Prior VTE?: No VTE Risk Level:: Surgical - moderate VTE Device Contraindication: N/A - Device Ordered VTE Drug Contraindication: Treatment Not Indicated
[2023-12-03] MEDS: Heparin Sodium,Porcine 5,000 UNIT/ML VIAL 5000 UNIT SUBCUT ×2 (10:04→22:01)
[2023-12-03 11:15] LABS: Glucose, Whole Blood 102 mg/dL (60-115)
--- NOTE | 2023-12-03 15:03 | PM.CNGS ---
History of Present Illness Consult details Consult date: 12/03/23 Reason for consult: other (Symptomatic carotid stenosis) Requesting physician: Simon Randle Narrative: Very pleasant 88-year-old gentleman well known to me presents for vascular evaluation. He was actually scheduled for carotid surgery with us on Monday. Presented to the hospital with a partial small-bowel obstruction. He reports that he had a significant improvement since yesterday. He has had multiple bowel movements and is tolerating a clear liquid diet. Abdomen feels totally better to him. He was scheduled for left carotid endarterectomy. This all began on a trip down to [place] where he had symptomatic right-sided problems with his right arm and leg. He had an attempt at by Interventional Radiology down there which was failed. [place] Underwent cardiac risk stratification and actually went coronary artery stenting. Now presents for vascular follow-up. Review of Systems Review of Systems: Yes all other systems are reviewed and are negative Constitutional: Constitutional: Reports no additional constitutional complaints ENT: Reports Normal hearing present Cardiovascular: Cardiovascular: Denies chest pain, Denies chest pain at rest, Denies chest pain with activity and Denies pedal edema Respiratory: Respiratory: Denies cough Gastrointestinal: Gastrointestinal: Denies abdominal pain Musculoskeletal: Musculoskeletal: Denies abnormal gait, Denies muscle cramps and Denies radiating pain into limb Integumentary/Breasts: Skin/Breast: Denies skin ulcer and Denies wounds Neurologic: Reports Normal hearing present and Denies abnormal gait Psychiatric: Psychiatric: Reports no additional psychiatric complaints [facility] Past Medical History Medical History History of trigger finger Arthritis Rectal cancer Bladder neck contracture GERD (gastroesophageal reflux disease) Urinary incontinence Obstructive sleep apnea Coronary artery disease Type 2 diabetes mellitus with hyperglycemia Small bowel obstruction Erectile dysfunction Overweight (BMI 25.0-29.9) Peripheral vascular disease Hematuria Constipation BPH (benign prostatic hyperplasia) Prostate cancer Colon cancer Dysuria Hyperlipidemia, unspecified Essential hypertension Family History Family History Father Pancreatic cancer Mother No problems noted. Brother Liver cancer Surgical History Surgical History History of coronary artery stent placement History of exploratory laparotomy History of carpal tunnel release History of prostate surgery (~2017) History of bladder surgery (~01/04/18) History of colectomy History of appendectomy Social History Social History Household Members: Other Household Members Other:: Granddaughter Housing: House Are you a primary customer care agent to a significant other at home: No Do you presently have visiting nurse or other home services: No Alcohol intake: never Patient Tobacco Use Status: Never used Tobacco Tobacco use type: Cigar e-Cigarette/Vaping Use: Never Used Second Hand Smoke Exposure: No Advance Directives Date on File: 09/29/20 service: Yes ([employer]) Current occupational status: retired Cognitive needs: Yes (cane) Hearing needs: Yes (hearing aide) Vision needs: Yes (glasses) Meds Allergies Allergy/AdvReac Type Severity Reaction Status Date / Time diphenhydramine AdvReac Intermediate Hallucinati Verified 11/30/23 13:01 [From Tereza] ons Active Medications: Current Medications Al Hydroxide/Mg Hydroxide (Magnesium Hydrox/Alum Hydrox 30 Ml Oral.Susp) 30 ml PO Q4H PRN PRN Reason: Heartburn Last Admin: 12/02/23 18:29 Dose: 30 ml Aspirin (Aspirin 81 Mg Tab.Chew) 81 mg PO DAILY [facility] Last Admin: 12/03/23 08:29 Dose: 81 mg Clopidogrel Bisulfate (Clopidogrel Bisulfate 75 Mg Tablet) 75 mg PO DAILY [facility] Last Admin: 12/03/23 08:29 Dose: 75 mg Dextrose (Dextrose 50 % 25 Gm/50 Ml Syringe) 25 gm IVPUSH Q15M PRN; Protocol PRN Reason: per Hypoglycemia Standing Ord. Glucose (Glucose Gel 15 Gm Gel..Gram.) 15 gm PO Q15M PRN; Protocol PRN Reason: per Hypoglycemia Standing Ord. Heparin Sodium (Porcine) (Heparin Sodium,Porcine 5,000 Unit/Ml Vial) 5,000 unit SUBCUT Q12H [facility] Stop: 12/04/23 00:00 Last Admin: 12/03/23 10:04 Dose: 5,000 unit Hydromorphone HCl (Hydromorphone Hcl 0.5 Mg/0.5 Ml Syringe) 0.5 mg IVPUSH Q3H PRN; Protocol PRN Reason: Pain, Severe (Pain Scale 7-10) Last Admin: 12/02/23 12:13 Dose: 0.5 mg Lactated Ringer's (Lr) 1,000 mls @ 100 mls/hr IVCONT .Q10H [facility] Last Admin: 12/03/23 05:55 Dose: 100 mls/hr Metoprolol Tartrate (Metoprolol Tartrate 12.5 Mg Halftab) 12.5 mg PO DAILY [facility]; Protocol Last Admin: 12/03/23 08:29 Dose: 12.5 mg Ondansetron HCl (Ondansetron Hcl 4 Mg/2 Ml Vial) 4 mg IVPUSH QID PRN PRN Reason: Nausea Sodium Chloride (0.9 % Sodium Chloride Flush 3 Ml Syringe) 3 ml IVFLUSH QSHIFT [facility] Last Admin: 12/03/23 07:45 Dose: Not Given Zolpidem Tartrate (Zolpidem Tartrate 5 Mg Tablet) 5 mg PO BEDTIME PRN PRN Reason: Insomnia Home Medications Medication Instructions Recorded Confirmed Last Taken Type aspirin 81 mg tablet,delayed 81 mg PO DAILY 12/01/22 12/02/23 04/04/23 History release cyanocobalamin (vitamin B-12) 1,000 mcg PO DAILY 12/01/22 12/02/23 04/04/23 History 1,000 mcg tablet docusate sodium 100 mg capsule 100 mg PO DAILY PRN Constipation 04/04/23 12/02/23 Unknown History clopidogrel 75 mg tablet 75 mg PO DAILY 11/16/23 12/02/23 Unknown History metoprolol tartrate 25 mg tablet 12.5 mg PO DAILY 11/29/23 12/02/23 Unknown History Physical Exam Vital Signs: Vital Signs: Last Vital Signs Temp 97.8 F 12/03/23 07:22 Pulse 66 12/03/23 07:22 Resp 17 12/03/23 07:22 BP 133/59 L 12/03/23 07:22 Pulse Ox 92 12/03/23 07:22 O2 Del Method Room Air 12/03/23 07:22 BMI result Body Mass Index 23.7 Const: General: cooperative, healthy appearing and comfortable Orientation/consciousness: oriented to person, oriented to place and oriented to time HEENT: Head: Yes normal to inspection Neck: Neck: Yes normal visual inspection Carotids: no bruits Chest: Chest palpation & inspection: normal inspection of the chest Resp: Effort & Inspection: normal respiratory effort and able to speak in complete sentences Auscultation: clear to auscultation bilaterally, no crackles, no rales, no rhonchi and no wheezes Cardio: Rate: regular rate Rhythm: regular rhythm Heart sounds: S1 normal heart sound present and S2 normal heart sound present Bruits: no carotid bruits Peripheral pulses: Peripheral pulses 2+ throughout GI: Other: Abdomen soft with normal bowel sounds Inspection: Yes normal to inspection Skin: Wounds: no wounds Hair: normal Neuro: General: oriented to person, oriented to place and oriented to time Cranial nerves: Yes CN's II-XII intact bilaterally and Yes Normal hearing present Cognition (Neuro): normal cognition Motor exam (neuro): 5/5 motor strength present throughout Extrem: Other: venous exam: No significant superficial varicosities or spider telangiectasias, minimal edema General: No clubbing, No cyanosis and No edema Psych: Appearance: grossly normal Mental Status: mental status grossly normal Speech and movement: Normal speech and movement present Results Labs 12/03/23 05:08 12/03/23 05:08 Labs: Abnormal lab results 12/02/23 12/03/23 Range/Units 16:10 05:08 RBC 3.98 L D (4.60-5.80) X10*6/uL Hgb 11.7 L D (14.0-18.0) g/dl Hct 35.2 L (42.0-52.0) % Eos % (Auto) 5.0 H (0-4) % Chloride 110 H (96-108) mmol/L BUN 17 H (9-16) mg/dL POC Glucose 116 H (60-115) mg/dL Calcium 8.0 L D (8.4-10.2) mg/dL Short CBC 12/03/23 Range/Units 05:08 WBC 6.2 (4.8-10.8) X10*3/uL Hgb 11.7 L D (14.0-18.0) g/dl Hct 35.2 L (42.0-52.0) % Plt Count 202 (160-400) X10*3/uL BMP 12/03/23 05:08 Sodium 140 Potassium 4.0 Chloride 110 H Carbon Dioxide 22 BUN 17 H Creatinine 0.79 Calcium 8.0 L D Urine 12/02/23 Range/Units 11:39 Urine Color Yellow Urine Appearance Clear Urine pH 5.0 (5.0-9.0) Ur Specific [place] >= 1.030 H (1.005-1.025) Urine Protein Trace (Neg-Trace) mg/dL Urine Glucose (UA) Negative (Negative) mg/dL All other labs normal. Assessment and Plan (1) Symptomatic stenosis of left carotid artery: Status: Acute Plan In short patient has symptomatic left carotid stenosis. Even though the right side had demonstrates a high-grade stenosis the left side is symptomatic. He will require left carotid endarterectomy. He is stable from a general surgery standpoint and is now having regular bowel movements. In addition he has had recent coronary artery stenting. Due to the urgent nature this is more an urgent operation. Risks benefits complications including bleeding infection stroke and [place] were discussed in detail with the patient he does recognize he has at an increased risk of these in addition he is at an increased risk of repeat bowel obstruction as well. This was discussed in detail with the patient and he is in agreement to move forward with the operation. He will remain on schedule for tomorrow 730. Thank you for allowing us to assist in his care. Procedures Date of Service Date of Service: 12/03/23
[2023-12-03 16:00] VITALS: BP 138/68; PULSE 64; RESP 18; TEMP 36.7; O2SAT 97
--- NOTE | 2023-12-03 16:04 | MHC.CM.PN ---
PT REPORTS HE LIVES WITH HIS , GRANDDAUGHTER AND GREAT GRANDDAUGHTER HE IS INDEPENDENT WITH CARE AND USES A [facility] FOR DME PT HAS A HCP ON FILE AND HIS PCP IS SUNG [facility]ARIMI IMM DELIVERED DCP: HOME NO SERVICES FAMILY TO TRANSPORT
[2023-12-03 16:37] LABS: Glucose, Whole Blood 77 mg/dL (60-115)
[2023-12-03 19:26] VITALS: BP 151/68; PULSE 71; RESP 14; TEMP 36; O2SAT 97
[2023-12-03 19:59] LABS: Glucose, Whole Blood 75 mg/dL (60-115)
[2023-12-04] VITALS (26 sets, daily range): BP systolic 89–150; BP diastolic 42–77; PULSE 57–110; RESP 12–21; TEMP 36.3–37.1; O2SAT 94–98
[2023-12-04] MEDS: Lactated Ringers 1,000 ML 100 ML IVCONT ×4 (01:51→23:00)
[2023-12-04 07:08] LABS: Glucose, Whole Blood 82 mg/dL (60-115)
--- NOTE | 2023-12-04 07:17 | P.CONAN_ITS ---
[facility] Active Problems Active Problems: All Active Problems (Updated 12/02/23 @ 10:36 by Ingrid Goldsmith MD) SBO (small bowel obstruction) (Acute) Preoperative cardiovascular examination (Acute) Symptomatic stenosis of left carotid artery (Acute) CVA (cerebral vascular accident) (Acute) Carotid stenosis, right (Acute) Cough (Acute) Right knee pain (Acute) Hypotension (Acute) Screening for eye condition (Acute) Medicare annual wellness visit, initial (Acute ~09/28/21) Prostate cancer (Acute) Bacteremia (Acute) Bladder neck stricture (Acute) Acute retention of urine (Acute) Chronic UTI (urinary tract infection) (Acute) Essential hypertension (Acute) Constipation (Acute) GERD (gastroesophageal reflux disease) (Acute) Obstructive sleep apnea (Acute) Coronary artery disease (Acute) Type 2 diabetes mellitus with hyperglycemia (Acute) Overweight (BMI 25.0-29.9) (Acute) Past Medical History Medical History History of trigger finger Arthritis Rectal cancer Bladder neck contracture GERD (gastroesophageal reflux disease) Urinary incontinence Obstructive sleep apnea Coronary artery disease Type 2 diabetes mellitus with hyperglycemia Small bowel obstruction Erectile dysfunction Overweight (BMI 25.0-29.9) Peripheral vascular disease Hematuria Constipation BPH (benign prostatic hyperplasia) Prostate cancer Colon cancer Dysuria Hyperlipidemia, unspecified Essential hypertension Family History Family History Father Pancreatic cancer Mother No problems noted. Brother Liver cancer Family history of problems with anesthesia: No Surgical History Surgical History History of coronary artery stent placement History of exploratory laparotomy History of carpal tunnel release History of prostate surgery (~2017) History of bladder surgery (~01/04/18) History of colectomy History of appendectomy History of Problems with Anesthesia: No Social History Social History Household Members: Other Household Members Other:: Granddaughter Housing: House Are you a primary school child care attendant to a significant other at home: No Do you presently have visiting nurse or other home services: No Alcohol intake: never Patient Tobacco Use Status: Never used Tobacco Tobacco use type: Cigar e-Cigarette/Vaping Use: Never Used Second Hand Smoke Exposure: No Use of substances other than those prescribed or required for medical reasons: No Have you been hit, kicked, punched, or otherwise hurt by someone within the past year? If so, by whom?: No Advance Directives: Yes Advance Directives Information Provided: No Advance Directives on File: Yes Advance Directives Date on File: 09/29/20 Recently lost weight without trying: No Eating poorly because of decreased appetite: No Nutrition Risks: No Nutritional Risk Poor oral hygiene: Yes (lower partial denture) service: Yes Current occupational status: retired Cognitive needs: Yes (cane) Hearing needs: Yes (hearing aide) Vision needs: Yes (glasses) Meds Allergies Allergy/AdvReac Type Severity Reaction Status Date / Time diphenhydramine AdvReac Intermediate Hallucinati Verified 11/30/23 13:01 [From Tereza] ons Active Medications: Current Medications Al Hydroxide/Mg Hydroxide (Magnesium Hydrox/Alum Hydrox 30 Ml Oral.Susp) 30 ml PO Q4H PRN PRN Reason: Heartburn Last Admin: 12/02/23 18:29 Dose: 30 ml Aspirin (Aspirin 81 Mg Tab.Chew) 81 mg PO DAILY [facility] Last Admin: 12/03/23 08:29 Dose: 81 mg Clopidogrel Bisulfate (Clopidogrel Bisulfate 75 Mg Tablet) 75 mg PO DAILY [facility] Last Admin: 12/03/23 08:29 Dose: 75 mg Dextrose (Dextrose 50 % 25 Gm/50 Ml Syringe) 25 gm IVPUSH Q15M PRN; Protocol PRN Reason: per Hypoglycemia Standing Ord. Glucose (Glucose Gel 15 Gm Gel..Gram.) 15 gm PO Q15M PRN; Protocol PRN Reason: per Hypoglycemia Standing Ord. Hydromorphone HCl (Hydromorphone Hcl 0.5 Mg/0.5 Ml Syringe) 0.5 mg IVPUSH Q3H PRN; Protocol PRN Reason: Pain, Severe (Pain Scale 7-10) Last Admin: 12/02/23 12:13 Dose: 0.5 mg Lactated Ringer's (Lr) 1,000 mls @ 100 mls/hr IVCONT .Q10H [facility] Last Admin: 12/04/23 01:51 Dose: 100 mls/hr Cefazolin Sodium/Dextrose (Ancef) 2 gm in 50 mls @ 100 mls/hr IV PREOP ONE Stop: 12/04/23 07:34 Lactated Ringer's (Lr) 1,000 mls @ 100 mls/hr IVCONT .Q10H [facility] Metoprolol Tartrate (Metoprolol Tartrate 12.5 Mg Halftab) 12.5 mg PO DAILY [facility]; Protocol Last Admin: 12/03/23 08:29 Dose: 12.5 mg Ondansetron HCl (Ondansetron Hcl 4 Mg/2 Ml Vial) 4 mg IVPUSH QID PRN PRN Reason: Nausea Sodium Chloride (0.9 % Sodium Chloride Flush 3 Ml Syringe) 3 ml IVFLUSH QSHIFT KRISTINE Last Admin: 12/03/23 21:54 Dose: Not Given Zolpidem Tartrate (Zolpidem Tartrate 5 Mg Tablet) 5 mg PO BEDTIME PRN PRN Reason: Insomnia Home Medications Medication Instructions Recorded Confirmed Last Taken Type aspirin 81 mg tablet,delayed 81 mg PO DAILY 12/01/22 12/02/23 04/04/23 History release cyanocobalamin (vitamin B-12) 1,000 mcg PO DAILY 12/01/22 12/02/23 04/04/23 History 1,000 mcg tablet docusate sodium 100 mg capsule 100 mg PO DAILY PRN Constipation 04/04/23 12/02/23 Unknown History clopidogrel 75 mg tablet 75 mg PO DAILY 11/16/23 12/02/23 Unknown History metoprolol tartrate 25 mg tablet 12.5 mg PO DAILY 11/29/23 12/02/23 Unknown History Exam Height,Weight and Vital Signs: Height 6 ft 2 in Weight 83.8 kg Last Vital Signs Temp 97.7 F 12/04/23 07:07 Pulse 85 12/04/23 07:07 Resp 16 12/04/23 07:07 BP 142/77 H 12/04/23 07:07 Pulse Ox 95 12/04/23 07:07 O2 Del Method Room Air 12/04/23 07:07 Pertinent Lab Results Pertinent Lab Results: Laboratory Tests 12/02/23 12/02/23 12/02/23 08:57 11:39 16:10 WBC 12.1 H RBC 5.06 D Hgb 14.7 D Hct 43.5 D MCV 86.0 MCH 29.1 MCHC 33.8 RDW 12.7 Plt Count 256 D MPV 9.8 Immature Gran % (Auto) 0.3 Neut % (Auto) 76.3 H Lymph % (Auto) 15.[address] [place] % (Auto) 6.0 Eos % (Auto) 1.8 Baso % (Auto) 0.4 Lymph # (Auto) 1.9 [place] # (Auto) 0.7 Eos # (Auto) 0.2 Baso # (Auto) 0.1 Abs Immat Gran (auto) 0.04 H Absolute Neuts (auto) 9.3 H Absolute Nucleated RBC 0.000 Nucleated RBC % (auto) 0.0 PT 11.9 INR 1.0 Sodium 139 Potassium 4.3 Chloride 109 H Carbon Dioxide 21 L Anion Gap 13 BUN 13 Creatinine 0.84 Estim Creat Clear Calc 72.0 Estimated GFR > 60 POC Glucose 116 H Random Glucose 144 H Lactic Acid 1.7 Calcium 9.7 D Total Bilirubin 0.5 AST 15 ALT 13 Alkaline Phosphatase 80 Troponin I High Sens 24.3 D Total Protein 6.7 Albumin 3.9 Hold Red Top Urine Color Yellow Urine Appearance Clear Urine pH 5.0 Ur Specific [place] >= 1.030 H Urine Protein Trace Urine Glucose (UA) Negative Urine Ketones Negative Urine Blood Negative Urine Nitrite Negative Ur Leukocyte Esterase Negative Blood Type Antibody Screen 12/02/23 12/03/23 12/03/23 20:16 05:08 07:21 WBC 6.2 RBC 3.98 L D Hgb 11.7 L D Hct 35.2 L MCV 88.4 MCH 29.4 MCHC 33.2 RDW 12.8 Plt Count 202 MPV 10.3 Immature Gran % (Auto) 0.2 Neut % (Auto) 57.5 Lymph % (Auto) 26.9 [place] % (Auto) 10.1 Eos % (Auto) 5.0 H Baso % (Auto) 0.3 Lymph # (Auto) 1.7 [place] # (Auto) 0.6 Eos # (Auto) 0.3 Baso # (Auto) 0.0 Abs Immat Gran (auto) 0.01 Absolute Neuts (auto) 3.6 Absolute Nucleated RBC 0.000 Nucleated RBC % (auto) 0.0 PT INR Sodium 140 Potassium 4.0 Chloride 110 H Carbon Dioxide 22 Anion Gap 12 BUN 17 H Creatinine 0.79 Estim Creat Clear Calc 76.5 Estimated GFR > 60 POC Glucose 110 88 Random Glucose 89 Lactic Acid Calcium 8.0 L D Total Bilirubin AST ALT Alkaline Phosphatase Troponin I High Sens Total Protein Albumin Hold Red Top Urine Color Urine Appearance Urine pH Ur Specific [place] Urine Protein Urine Glucose (UA) Urine Ketones Urine Blood Urine Nitrite Ur Leukocyte Esterase Blood Type Antibody Screen 12/03/23 12/03/23 12/03/23 11:11 15:40 16:26 WBC RBC Hgb Hct MCV MCH MCHC RDW Plt Count MPV Immature Gran % (Auto) Neut % (Auto) Lymph % (Auto) [place] % (Auto) Eos % (Auto) Baso % (Auto) Lymph # (Auto) [place] # (Auto) Eos # (Auto) Baso # (Auto) Abs Immat Gran (auto) Absolute Neuts (auto) Absolute Nucleated RBC Nucleated RBC % (auto) PT INR Sodium Potassium Chloride Carbon Dioxide Anion Gap BUN Creatinine Estim Creat Clear Calc Estimated GFR POC Glucose 102 77 Random Glucose Lactic Acid Calcium Total Bilirubin AST ALT Alkaline Phosphatase Troponin I High Sens Total Protein Albumin Hold Red Top See Note Urine Color Urine Appearance Urine pH Ur Specific [place] Urine Protein Urine Glucose (UA) Urine Ketones Urine Blood Urine Nitrite Ur Leukocyte Esterase Blood Type O Positive Antibody Screen NEGATIVE 12/03/23 12/04/23 19:31 07:03 WBC RBC Hgb Hct MCV MCH MCHC RDW Plt Count MPV Immature Gran % (Auto) Neut % (Auto) Lymph % (Auto) [place] % (Auto) Eos % (Auto) Baso % (Auto) Lymph # (Auto) [place] # (Auto) Eos # (Auto) Baso # (Auto) Abs Immat Gran (auto) Absolute Neuts (auto) Absolute Nucleated RBC Nucleated RBC % (auto) PT INR Sodium Potassium Chloride Carbon Dioxide Anion Gap BUN Creatinine Estim Creat Clear Calc Estimated GFR POC Glucose 75 82 Random Glucose Lactic Acid Calcium Total Bilirubin AST ALT Alkaline Phosphatase Troponin I High Sens Total Protein Albumin Hold Red Top Urine Color Urine Appearance Urine pH Ur Specific [place] Urine Protein Urine Glucose (UA) Urine Ketones Urine Blood Urine Nitrite Ur Leukocyte Esterase Blood Type Antibody Screen Airway Mallampati Class: IV TM Dist: >3cm Neck ROM: Full Assessment and Plan Assessment Anesthesia Assessment: Anesthesia Plan Discussed and Chart Reviewed Final Anesthetic Review Family History of Problems with Anesthesia: No History of Problems with Anesthesia: No NPO: Yes ASA Class: III Final Preanesthetic Review: No Changes in Pt Med Stat, Meds/Allgs Chart Reviewed, Consent Obtained/Reviewed and Anes Risks/Benef Reviewed Patient Risk: Intermediate Procedure Risk: Intermediate Anesthetic Plan Anesthetic Plan: GA Disposition: Standard PACU
--- NOTE | 2023-12-04 07:43 | MHC.SHP ---
Pre-Procedural Eval Section A - 24 Hr Update-Section A only Date of Service: 12/04/23 The patient is an INPATIENT: Yes Changes since office visit: Yes Patient answered all questions The patient has been examined within 24 hours of the surgical procedure. The History & Physical has been completed within 30 days and I have reviewed it.: Yes Section B - Complete if H&P > 30 days Chief Complaint: Partial small-bowel obstruction Allergies: Allergies Allergy/AdvReac Type Severity Reaction Status Date / Time diphenhydramine AdvReac Intermediate Hallucinati Verified 11/30/23 13:01 [From Tereza] ons Plan I have reviewed the history and physical and performed a pertinent physical examination on my patient. No changes have occurred unless specified. Time Spent With Patient Time: Total time managing care of this patient today ____ minutes.
--- NOTE | 2023-12-04 10:36 | W.PM.OPN ---
Operative Note Operative Note Date of Service: 12/04/23 Narrative: Operative note by [facility] Preoperative diagnosis:1. Left Carotid stenosis 2. Prior cerebrovascular accident Postoperative diagnosis: Same Procedure: Left Carotid endarterectomy with patch angioplasty Surgeon:Federico Shen M.D. Physician Practice Coordinator: Dr. Prado Anesthesia: General Specimens: 1 Drains: 1 Estimated blood loss: 100 mL Indications: Very pleasant 88-year-old gentleman who originally was on a trip home from [place]. While driving home he felt some sort of visual and upper and lower extremity disturbances on the right side. He was subsequently worked up at a hospital down in [place] was discovered to have bilateral high-grade stenosis. He was noted to have right side 90 left-sided 75 but his upper and lower extremity weakness was more so on the right side. This was considered the symptomatic side so we decided to approach the left side 1st. He now presents for left carotid endarterectomy. The patient has signed the informed consent after reviewing risks, complications, benefits, and alternatives previously discussed with the patient. The patient was given the opportunity to ask any additional questions or voice any concerns. All questions were answered to the patient's satisfaction. Procedure in detail: Patient was taken to the operating room and placed in a supine position and prepped and draped in sterile manner with ChloraPrep. Longitudinal incision was made along the anterior border of the left sternocleidomastoid carried down through the subcutaneous fat and fascia. Hemostasis was obtained with electrocautery. The platysma muscle was then divided. The carotid sheath was identified in open. The vagus nerve, Ancef cervicalis, and hypoglossal nerves were identified and avoided. The common internal and external carotids were then freed from the surrounding tissue. At this point, 5000 units of heparin was administered and allowed to circulate for 5 minutes time to take effect. The internal, common, external carotids were clamped in that order. Once this was accomplished, we proceeded with the procedure. The carotid bulb was opened with an 11 blade and extended with Lawrence scissors through the very tight lesion into normal internal carotid artery. This was then extended down into the common carotid artery. We then placed a [place] shunt. Then the plaque was sharply excised proximally and an eversion endarterectomy was performed successfully at the external. The plaque tapered nicely on to the internal and no tacking sutures were necessary. Heparinized saline was injected and no evidence of flapping or other debris was noted. The remaining carotid was examined, which showed no debris or flaps present. At this point a XenoSure patch was brought on to the field. This was anastomosed to the artery using a 6 0 Prolene in a running fashion. Once approximately 4/5 of the patch was sewn in the shunt was then removed. Prior to the last stitch the internal carotid was back bled through this. Heparinized saline was instilled into the carotid. The last stitch was tied. Hemostasis was excellent. The internal carotid was gently occluded while while of the external and internal were open in that order. Finally the internal was then opened and flow was restored to the entire system. Hemostasis was achieved with interrupted 7-0 Prolene sutures. The wound was irrigated thoroughly. We then placed a 7 flat Reese-Crowder drain. Deep layer was reapproximated using a 2-0 poly Sorb and finally the superficial layer with a 3-0 Polysorb. The skin was closed in a subcuticular manner. The patient awoke and neurologic status was checked and appeared to be intact. Sponge, needle and instrument counts were correct. The patient tolerated the procedure well. Returned to recovery with stable vitals. This note is constructed using voice recognition software. While every effort has been made to ensure accuracy, electrical helper errors may have been included. Thank you for allowing me to participate in the care of your patient. Yours sincerely, Federico Shen MD, FACS, R.P.V.I.
[2023-12-04] MEDS: fentaNYL citrate/PF 100 MCG/2 ML VIAL 50 MCG IVPUSH ×2 (11:00→12:00)
[2023-12-04 12:24] LABS: Glucose, Whole Blood 100 mg/dL (60-115)
[2023-12-04] MEDS: Amiodarone HCL 900 MG in 0.9 % Sodium Chloride 500 ML 34.53 MG IVCONT (13:29)
[2023-12-04] MEDS: ceFAZolin Sodium/Dextrose,Iso 2 GM/50 ML PIGGYBACK IV (13:36)
--- NOTE | 2023-12-04 13:43 | P.PNCC_ITS ---
Subjective Subjective Date of Service: 12/04/23 Interval History: 88-year-old gentleman with underlying diabetes mellitus, BPH, PVD, hypertension, TORRES not on CPAP, currently artery disease status post drug-eluting stent to RCA on 11/22/2023, on dual antiplatelet therapy, history of colorectal cancer status post resection 2005, admitted on 12/02/2023 with abdominal pain and small-bowel obstruction that was managed medically with resumption of bowel function, tolerating clears on 12/03/2023. Now postop day 0 after an elective left carotid endarterectomy with vascular surgery being monitored in the intensive unit in the immediate postop with development of postprocedure AFib, now on amiodarone drip as per Cardiology recommendations. Critical Care Time (minutes): 0 Physical Exam 2 Vital Signs: Vital Signs: Last Vital Signs Temp 97.4 F 12/04/23 12:15 Pulse 90 12/04/23 12:30 Resp 16 12/04/23 12:30 BP 102/51 L 12/04/23 12:30 Pulse Ox 96 12/04/23 12:30 O2 Del Method Nasal Cannula 12/04/23 12:30 O2 Flow Rate 2 12/04/23 12:30 BMI result Body Mass Index 23.7 Const: General: no acute distress, alert and awake Eyes: Sclerae: sclerae normal EOM: EOMs intact bilaterally Neck: Neck: Yes no lymphadenopathy, Yes trachea midline, Yes supple and Yes other (Endarterectomy site without hematoma) Resp: Effort & Inspection: normal respiratory effort and no respiratory distress Auscultation: clear to auscultation bilaterally Cardio: Rate: regular rate Rhythm: regular rhythm Heart sounds: no gallops, no murmurs and no rubs GI: Palpation (GI): Soft to palpation and Other GI palpation findings present ( Nontender) Auscultation: normal bowel sounds Extrem: General: Yes no pedal edema, No clubbing and No cyanosis Objective Data Labs 12/03/23 05:08 12/03/23 05:08 Labs: Laboratory Results - last 24 hr 12/03/23 12/03/23 12/03/23 15:40 16:26 19:31 POC Glucose 77 75 Hold Red Top See Note Blood Type O Positive Antibody Screen NEGATIVE 12/04/23 12/04/23 07:03 12:21 POC Glucose 82 100 Hold Red Top Blood Type Antibody Screen Microbiology Microbiology Results: Microbiology 12/02/23 09:31 Blood - Venous Blood Culture - Preliminary No growth after 48 hours. 12/02/23 08:57 Blood - Venous Blood Culture - Preliminary No growth after 48 hours. 12/02/23 10:05 Blood - Venous Blood Culture - Final 12/02/23 10:05 Blood - Venous Blood Culture - Final Progress Note: A&P Assessment and plan (1) SBO (small bowel obstruction): Status: Acute (2) Symptomatic stenosis of left carotid artery: Status: Acute (3) Afib: Status: Acute (4) CAD (coronary artery disease): Status: Acute (5) Type 2 diabetes mellitus with hyperglycemia: Status: Acute Plan Assessment: 88-year-old gentleman with underlying multiple medical issues admitted with small-bowel obstruction that resolved with medical management, now postop day 0 after an elective left carotid endarterectomy Plan: Neuro: No acute issues. Cardiac: Status post elective left carotid endarterectomy. Vascular surgery service care appreciated. AFib in the postop period, now on amiodarone drip as per Cardiology recommendations. Underlying CAD with recent NICOLE to RCA, continues on aspirin and Plavix. Pulmonary: No acute issues. Renal: No acute issues. Endo: No acute issues. GI: Resolved. General surgery service care appreciated. ID: No acute issues Heme/Onc: No acute issues. Psych: No acute issues. Miscellaneous: No acute issues. Prophylaxis: Compression therapy Diet: Regular Quality Stroke Does the patient have a stroke diagnosis?: Yes Reason for No Anti-thrombotic by Day Two: N/A - Med Ordered VTE Prior VTE?: No VTE Risk Level:: Surgical - moderate VTE Device Contraindication: N/A - Device Ordered VTE Drug Contraindication: Treatment Not Indicated
[2023-12-04] MEDS: oxyCODONE HCl Immed Release 5 MG TABLET PO (16:22)
[2023-12-04] MEDS: 0.9 % Sodium Chloride Flush 3 ML SYRINGE IVFLUSH (16:30)
[2023-12-04 17:44] LABS: Glucose, Whole Blood 151 mg/dL (60-115)
[2023-12-04 20:59] LABS: Glucose, Whole Blood 181 mg/dL (60-115)
[2023-12-05] VITALS (16 sets, daily range): BP systolic 102–163; BP diastolic 45–76; PULSE 53–79; RESP 14–20; TEMP 36.3–36.8; O2SAT 94–98; BMI 23.7
[2023-12-05] MEDS: Amiodarone HCL 900 MG in 0.9 % Sodium Chloride 500 ML 17.27 MG IVCONT (04:51)
[2023-12-05 05:24] LABS: VBG Base Excess 2.1 mmol/L; VBG HCO3 25 mmol/L (22-26); VBG pCO2 34 mmHg; VBG pH 7.47 (7.32-7.43); VBG pO2 41 mmHg
[2023-12-05 05:33] LABS: MANUAL DIFF FLAG NO
[2023-12-05 05:36] LABS: Basophils Percent Auto 0.1 % (0-2); Eosinophils Percent Auto 0.2 % (0-4); Hematocrit 30.1 % (42.0-52.0); Hemoglobin 10.1 g/dl (14.0-18.0); Imm Gran Abs Auto 0.05 X10*3/uL (0.00-0.03); Imm Gran Pct Auto 0.5 % (0.0-0.4); Lymphocytes Absolute Auto 1.3 X10*3/uL (1.2-4.9); Lymphocytes Percent Auto 13.9 % (20-40); Mean Corpuscular HGB Conc 33.6 g/dl (31.0-36.0); Mean Corpuscular Hemoglobin 29.3 pg (27.0-33.0); Mean Corpuscular Volume 87.2 fL (80.0-98.0); Mean Platelet Volume 10.1 fL (9.4-12.4); Monocytes Absolute Auto 0.9 X10*3/uL (0.1-1.2); Monocytes Percent Auto 9.4 % (2-11); Neutrophils Absolute Auto 7.3 x10*3/uL (2.0-8.3); Neutrophils Percent Auto 75.9 % (45-73); Platelet Count 204 X10*3/uL (160-400); Red Blood Count 3.45 X10*6/uL (4.60-5.80); Red Cell Distribution Width 12.6 % (11.0-16.0); White Blood Count 9.6 X10*3/uL (4.8-10.8)
[2023-12-05 05:56] LABS: Anion Gap 11 (12-20); Blood Urea Nitrogen 14 mg/dL (9-16); Calcium 8.1 mg/dL (8.4-10.2); Carbon Dioxide 23 mmol/L (22-29); Chloride 110 mmol/L (96-108); Creatinine Clr Calc Pharmacy 74.7; Estimated Glomerular Filt Rate > 60; Glucose Random 136 mg/dL (60-115); Magnesium 2.1 mg/dL (1.6-2.6); Phosphorus 2.6 mg/dL (2.7-4.5); Potassium 3.9 mmol/L (3.3-5.1); Sodium 140 mmol/L (135-145)
[2023-12-05 06:31] LABS: Venous Blood Gas Refer to POC result
[2023-12-05 07:35] LABS: Glucose, Whole Blood 113 mg/dL (60-115)
[2023-12-05] MEDS: Aspirin 81 MG TAB.CHEW PO (09:54)
[2023-12-05] MEDS: Furosemide 20 MG/2 ML VIAL IVPUSH (09:54)
[2023-12-05] MEDS: Amiodarone HCL 200 MG TABLET 400 MG PO ×2 (09:54→20:10)
[2023-12-05] MEDS: Clopidogrel Bisulfate 75 MG TABLET PO (09:54)
--- NOTE | 2023-12-05 09:54 | MHC.CM.PN ---
Pt transferred to ICU following vascular surgery. Doing well and may transfer to the medical floor today. Original d/c plan was for a return to home w/family: discussed adding VNA for surgical site monitoring: pt agrees w/[facility]. Referral made. CM to follow for changes to plan
[2023-12-05] MEDS: 0.9 % Sodium Chloride Flush 3 ML SYRINGE IVFLUSH ×3 (09:55→20:12)
--- NOTE | 2023-12-05 10:03 | HO.VASCPN ---
Subjective Subjective Date of Service: 12/05/23 Patient reports: no new complaints and feels better Interval history: Very pleasant 88-year-old gentleman who is postop day 1 status post left carotid endarterectomy. He reports he is doing fairly well. Is tolerating a regular diet and had some mashed potatoes yesterday evening. Pain appears to be well controlled. He is stable from a neurologic standpoint as well. Now for postoperative follow-up. Of note he denies any abdominal pain or distention. He reports he is passing flatus Physical Exam Vital Signs: Vital Signs: Last Vital Signs Temp 98.1 F 12/05/23 08:00 Pulse 69 12/05/23 09:00 Resp 16 12/05/23 09:00 BP 132/61 12/05/23 09:00 Pulse Ox 94 12/05/23 09:00 O2 Del Method Room Air 12/05/23 09:00 O2 Flow Rate 2 12/05/23 08:00 Oxygen Flow Rate 2 12/05/23 07:19 BMI result Body Mass Index 23.7 Const: General: cooperative, healthy appearing and comfortable Orientation/consciousness: oriented to person, oriented to place and oriented to time HEENT: Head: Yes normal to inspection Neck: Neck: Yes normal visual inspection Carotids: no bruits Chest: Chest palpation & inspection: normal inspection of the chest Resp: Effort & Inspection: normal respiratory effort and able to speak in complete sentences Auscultation: clear to auscultation bilaterally, no crackles, no rales, no rhonchi and no wheezes Cardio: Rate: regular rate Rhythm: regular rhythm Heart sounds: S1 normal heart sound present and S2 normal heart sound present Bruits: no carotid bruits Peripheral pulses: Peripheral pulses 2+ throughout GI: Inspection: Yes normal to inspection Skin: Other: Left neck incision - dressing clean dry intact. DEE removed Wounds: no wounds Hair: normal Neuro: General: oriented to person, oriented to place and oriented to time Cranial nerves: Yes CN's II-XII intact bilaterally and Yes Normal hearing present Cognition (Neuro): normal cognition Motor exam (neuro): 5/5 motor strength present throughout Extrem: Other: venous exam: No significant superficial varicosities or spider telangiectasias, minimal edema General: No clubbing, No cyanosis and No edema Psych: Appearance: grossly normal Mental Status: mental status grossly normal Speech and movement: Normal speech and movement present Progress Note: A&P Assessment and plan (1) Symptomatic stenosis of left carotid artery: Status: Acute Assessment and Plan: In short doing well from left carotid endarterectomy. Will remove A-line Fam. Transfer to [facility] [place] Would like patient to be stable from a carotid and GI perspective prior to discharge. (2) SBO (small bowel obstruction): Status: Acute Assessment and Plan: Appears to have resolved preoperatively. He was having multiple large bowel movements. He appears to be passing flatus postoperatively. Like him to have a bowel movement prior to discharge. He will be transferred to floor. Will have hospitalist follow him. Time Spent With Patient Time: Total time managing care of this patient today ____ minutes. Procedures Date of Service Date of Service: 12/05/23 Quality Stroke Does the patient have a stroke diagnosis?: Yes Reason for No Anti-thrombotic by Day Two: N/A - Med Ordered VTE Prior VTE?: No VTE Risk Level:: Surgical - moderate VTE Device Contraindication: N/A - Device Ordered VTE Drug Contraindication: Treatment Not Indicated
--- NOTE | 2023-12-05 11:00 | PC.NURSE ---
Addendum entered by Bo Larkin RN 12/05/23 11:45: Transferred up to [facility] at approx 1130 by transport. Belongings with patient. Original Note: Shift eval 7a to present. Patient post op L CEA from yesterday. Dr Shen came to bedside, evaluated left neck dressing. Removed DEE drain without issue & redressed with window dressing. Small staining noted from old blood, otherwise, no issues with bleeding post dressing change. Dr Shen also gave orders to DC robert & A-line, both completed approx 10am. A-line left radial, dressed with pressure dressing & pressure held to ensure bleeding stopped. After robert removal, moderate amt blood came out - Dr Shen made aware - now voiding yellow urine with external catheter. Due to void approx 1630. Full bath given to patient, linens changed. IV fluids, amio drip d/c'ed (changed to PO). HR averaging 50's, SB - Dr Urbano made aware of holding lopressor - order to give amio PO still. Order for transfer to [facility] - Report given to Yashira SNIDER.
[2023-12-05 11:20] LABS: Glucose, Whole Blood 103 mg/dL (60-115)
--- NOTE | 2023-12-05 11:43 | PM.EVENT ---
Event Note Date of Service: 12/05/23 Event Note: Discuss case with ICU attending. Transferred from ICU, status post left endarterectomy with patch angioplasty. Hemodynamically stable. Time Spent With Patient Time: Total time managing care of this patient today ____ minutes.
--- NOTE | 2023-12-05 14:28 | HO.POSTANES ---
Post Anesthesia Evaluation Post Anesthesia Evaluation Date of Service: 12/05/23 Vital Signs: Vital Signs Temp Pulse Resp BP Pulse Ox O2 Del Method O2 Flow Rate 12/05/23 11:59 98.2 F 62 20 147/69 H 98 Room Air 12/05/23 10:00 58 20 132/61 96 Room Air 12/05/23 09:00 69 16 132/61 94 Room Air 12/05/23 08:00 98.1 F 54 18 102/57 L 98 Nasal Cannula 2 12/05/23 07:19 98 Nasal Cannula 12/05/23 07:00 53 119/50 L 97 Nasal Cannula 2 12/05/23 06:00 56 15 132/55 L 94 Nasal Cannula 2 12/05/23 04:59 97.3 F 59 18 131/53 L 95 Nasal Cannula 2 12/05/23 04:00 61 14 116/49 L 96 Nasal Cannula 2 12/05/23 03:00 61 15 120/45 L 97 Nasal Cannula 1 Anesthesia: General Endotracheal-GETA Mental Status: Awake Pain Control: Satisfactory Nausea/Vomiting: None Hydration: Adequate Anesthesia-Related Issues: No Anes. Related Issues
[2023-12-05 15:47] LABS: Glucose, Whole Blood 103 mg/dL (60-115)
[2023-12-05 19:48] LABS: Glucose, Whole Blood 104 mg/dL (60-115)
[2023-12-06] VITALS (7 sets, daily range): BP systolic 127–177; BP diastolic 63–82; PULSE 61–77; RESP 18–20; TEMP 36.2–37.2; O2SAT 95–98
[2023-12-06 07:31] LABS: MANUAL DIFF FLAG NO
[2023-12-06 07:37] LABS: Glucose, Whole Blood 95 mg/dL (60-115)
[2023-12-06 07:43] LABS: Basophils Percent Auto 0.4 % (0-2); Eosinophils Absolute Auto 0.4 X10*3/uL (0.0-0.4); Eosinophils Percent Auto 4.5 % (0-4); Hematocrit 30.9 % (42.0-52.0); Hemoglobin 10.3 g/dl (14.0-18.0); Imm Gran Abs Auto 0.03 X10*3/uL (0.00-0.03); Imm Gran Pct Auto 0.4 % (0.0-0.4); Lymphocytes Absolute Auto 2.1 X10*3/uL (1.2-4.9); Lymphocytes Percent Auto 27.3 % (20-40); Mean Corpuscular HGB Conc 33.3 g/dl (31.0-36.0); Mean Platelet Volume 10.2 fL (9.4-12.4); Monocytes Absolute Auto 0.7 X10*3/uL (0.1-1.2); Monocytes Percent Auto 8.4 % (2-11); Neutrophils Absolute Auto 4.6 x10*3/uL (2.0-8.3); Platelet Count 218 X10*3/uL (160-400); Red Blood Count 3.55 X10*6/uL (4.60-5.80); Red Cell Distribution Width 12.7 % (11.0-16.0); White Blood Count 7.9 X10*3/uL (4.8-10.8)
[2023-12-06 07:57] LABS: Albumin Level 3.1 g/dL (3.5-5.0); Anion Gap 8 (12-20); Blood Urea Nitrogen 12 mg/dL (9-16); Carbon Dioxide 25 mmol/L (22-29); Chloride 111 mmol/L (96-108); Estimated Glomerular Filt Rate > 60; Glucose Random 94 mg/dL (60-115); Magnesium 2.1 mg/dL (1.6-2.6); Potassium 3.8 mmol/L (3.3-5.1); Sodium 140 mmol/L (135-145)
[2023-12-06] MEDS: Clopidogrel Bisulfate 75 MG TABLET PO (08:59)
[2023-12-06] MEDS: Aspirin 81 MG TAB.CHEW PO (08:59)
[2023-12-06] MEDS: Amiodarone HCL 200 MG TABLET 400 MG PO ×2 (08:59→19:33)
[2023-12-06] MEDS: Metoprolol Tartrate 12.5 MG HALFTAB PO (08:59)
[2023-12-06] MEDS: 0.9 % Sodium Chloride Flush 3 ML SYRINGE IVFLUSH ×2 (09:01→19:34)
--- NOTE | 2023-12-06 11:30 | P.PNVS_ITS ---
Subjective Subjective Date of Service: 12/06/23 Patient reports: no new complaints and feels better Interval history: Patient seen and examined. Postop day 2 status post carotid endarterectomy. Appears to be doing extremely well. Passing flatus relatively comfortable in bed. Daughter at bedside. He does have a little bit of a hoarse voice. Otherwise feels well. Physical Exam Vital Signs: Vital Signs: Last Vital Signs Temp 98.2 F 12/06/23 11:03 Pulse 61 12/06/23 11:03 Resp 18 12/06/23 11:03 BP 127/66 12/06/23 11:03 Pulse Ox 96 12/06/23 11:03 O2 Del Method Room Air 12/06/23 11:03 O2 Flow Rate 2 12/05/23 08:00 Oxygen Flow Rate 2 12/05/23 07:19 BMI result Body Mass Index 23.7 Const: General: cooperative, healthy appearing and comfortable Orientation/consciousness: oriented to person, oriented to place and oriented to time HEENT: Head: Yes normal to inspection Neck: Neck: Yes normal visual inspection Carotids: no bruits Chest: Chest palpation & inspection: normal inspection of the chest Resp: Effort & Inspection: normal respiratory effort and able to speak in complete sentences Auscultation: clear to auscultation bilaterally, no crackles, no rales, no rhonchi and no wheezes Cardio: Rate: regular rate Rhythm: regular rhythm Heart sounds: S1 normal heart sound present and S2 normal heart sound present Bruits: no carotid bruits Peripheral pulses: Peripheral pulses 2+ throughout GI: Inspection: Yes normal to inspection Skin: Other: Left neck incision healing well. Steri-Strips are starting to fall off. He does have some underlying hematoma but not expanding Wounds: no wounds Hair: normal Neuro: General: oriented to person, oriented to place and oriented to time Cranial nerves: Yes CN's II-XII intact bilaterally and Yes Normal hearing present Cognition (Neuro): normal cognition Motor exam (neuro): 5/5 motor strength present throughout Extrem: Other: venous exam: No significant superficial varicosities or spider telangiectasi as, minimal edema General: No clubbing, No cyanosis and No edema Psych: Appearance: grossly normal Mental Status: mental status grossly normal Speech and movement: Normal speech and movement present Progress Note: A&P Assessment and plan (1) Symptomatic stenosis of left carotid artery: Status: Acute Assessment and Plan: In short patient is doing well status post left carotid endarterectomy. Will plan for discharge once stable from a cardiac perspective and also has a bowel movement. Upon discharge he can see me in approximately 2 weeks time. Thank you for allowing us to assist in his care. Time Spent With Patient Time: Total time managing care of this patient today ____ minutes. Procedures Date of Service Date of Service: 12/06/23 Quality Stroke Does the patient have a stroke diagnosis?: Yes Reason for No Anti-thrombotic by Day Two: N/A - Med Ordered VTE Prior VTE?: No VTE Risk Level:: Surgical - moderate VTE Device Contraindication: N/A - Device Ordered VTE Drug Contraindication: Treatment Not Indicated
[2023-12-06 11:37] LABS: Glucose, Whole Blood 104 mg/dL (60-115)
--- NOTE | 2023-12-06 15:41 | P.PNIM_ITS ---
Subjective Subjective Date of Service: 12/06/23 Interval History: No acute issues overnight. Mild hoarseness without shortness of breath. More ecchymosis around neck per patient Review of Systems Denies chest pain Denies shortness of breath Denies nausea vomiting diarrhea Denies fever chills Physical Exam 2 Vital Signs: Vital Signs: Last Vital Signs Temp 97.6 F 12/06/23 15:35 Pulse 69 12/06/23 15:35 Resp 18 12/06/23 15:35 BP 155/63 H 12/06/23 15:35 Pulse Ox 95 12/06/23 15:35 O2 Del Method Room Air 12/06/23 15:35 O2 Flow Rate 2 12/05/23 08:00 Oxygen Flow Rate 2 12/05/23 07:19 BMI result Body Mass Index 23.7 Const: Other: Awake alert ambulatory without acute issues Neck: Other: Ecchymosis left lateral neck under chin; not firm soft to touch. No stridor appreciated Resp: Other: Clear to auscultation bilaterally no rales rhonchi or wheezes Cardio: Other: No S4; positive S1-S2; no S3 murmurs rubs or gallops GI: Other: Soft nontender nondistended normoactive bowel sounds Neuro: Other: Cranial nerves 2-12 grossly intact as tested. Motor is 5/5 all extremities. Sensation is intact. Cognition appropriate. Gait steady Extrem: Other: No edema bilaterally Objective Data Active Medications Acetaminophen (Acetaminophen 325 Mg Tablet) 650 mg PO Q6H PRN PRN Reason: Pain, Mild (Pain Scale 1-3) Al Hydroxide/Mg Hydroxide (Magnesium Hydrox/Alum Hydrox 30 Ml Oral.Susp) 30 ml PO Q4H PRN PRN Reason: Heartburn Last Admin: 12/02/23 18:29 Dose: 30 ml Documented By: BETO Amiodarone HCl (Amiodarone Hcl 200 Mg Tablet) 400 mg PO BID [facility] Last Admin: 12/06/23 08:59 Dose: 400 mg Documented By: MARLENE Aspirin (Aspirin 81 Mg Tab.Chew) 81 mg PO DAILY [facility] Last Admin: 12/06/23 08:59 Dose: 81 mg Documented By: MARLENE Clopidogrel Bisulfate (Clopidogrel Bisulfate 75 Mg Tablet) 75 mg PO DAILY [facility] Last Admin: 12/06/23 08:59 Dose: 75 mg Documented By: MARLENE Dextrose (Dextrose 50 % 25 Gm/50 Ml Syringe) 25 gm IVPUSH Q15M PRN; Protocol PRN Reason: per Hypoglycemia Standing Ord. Fentanyl (Fentanyl Citrate/Pf 100 Mcg/2 Ml Vial) 50 mcg IVPUSH Q5M PRN; Protocol PRN Reason: Pain, Severe (Pain Scale 7-10) Last Admin: 12/04/23 12:00 Dose: 50 mcg Documented By: SANJUANA Glucose (Glucose Gel 15 Gm Gel..Gram.) 15 gm PO Q15M PRN; Protocol PRN Reason: per Hypoglycemia Standing Ord. Hydromorphone HCl (Hydromorphone Hcl 0.5 Mg/0.5 Ml Syringe) 0.5 mg IVPUSH Q3H PRN; Protocol PRN Reason: Pain, Severe (Pain Scale 7-10) Last Admin: 12/02/23 12:13 Dose: 0.5 mg Documented By: VASILE Metoprolol Tartrate (Metoprolol Tartrate 12.5 Mg Halftab) 12.5 mg PO DAILY [facility]; Protocol Last Admin: 12/06/23 08:59 Dose: 12.5 mg Documented By: MARLENE Ondansetron HCl (Ondansetron Hcl 4 Mg/2 Ml Vial) 4 mg IVPUSH QID PRN PRN Reason: Nausea Ondansetron HCl (Ondansetron Hcl 4 Mg/2 Ml Vial) 4 mg IVPUSH ONCE PRN PRN Reason: Nausea and Vomiting Oxycodone HCl (Oxycodone Hcl Immed Release 5 Mg Tablet) 5 mg PO Q4H PRN PRN Reason: Pain, Moderate(Pain Scale 4-6) Last Admin: 12/04/23 16:22 Dose: 5 mg Documented By: JAYE Sodium Chloride (0.9 % Sodium Chloride Flush 3 Ml Syringe) 3 ml [facility] [place] Last Admin: 12/06/23 09:01 Dose: 3 ml Documented By: MARLENE Zolpidem Tartrate (Zolpidem Tartrate 5 Mg Tablet) 5 mg PO BEDTIME PRN PRN Reason: Insomnia Labs 12/06/23 06:29 12/06/23 06:29 Labs: Laboratory Results - last 24 hr 12/05/23 12/05/23 12/06/23 15:39 19:41 06:29 MCV 87.0 MCH 29.0 MCHC 33.3 RDW 12.7 Plt Count 218 MPV 10.2 Immature Gran % (Auto) 0.4 Neut % (Auto) 59.0 Lymph % (Auto) 27.3 [place] % (Auto) 8.4 Eos % (Auto) 4.5 H Baso % (Auto) 0.4 Lymph # (Auto) 2.1 [place] # (Auto) 0.7 Eos # (Auto) 0.4 Baso # (Auto) 0.0 Abs Immat Gran (auto) 0.03 Absolute Neuts (auto) 4.6 Absolute Nucleated RBC 0.000 Nucleated RBC % (auto) 0.0 Anion Gap 8 L Estim Creat Clear Calc 84.0 Estimated GFR > 60 POC Glucose 103 104 Random Glucose 94 Calcium 8.0 L Phosphorus 2.0 L Magnesium 2.1 Albumin 3.1 L 12/06/23 12/06/23 07:34 11:33 MCV MCH MCHC RDW Plt Count MPV Immature Gran % (Auto) Neut % (Auto) Lymph % (Auto) [place] % (Auto) Eos % (Auto) Baso % (Auto) Lymph # (Auto) [place] # (Auto) Eos # (Auto) Baso # (Auto) Abs Immat Gran (auto) Absolute Neuts (auto) Absolute Nucleated RBC Nucleated RBC % (auto) Anion Gap Estim Creat Clear Calc Estimated GFR POC Glucose 95 104 Random Glucose Calcium Phosphorus Magnesium Albumin Assessment and Plan (1) SBO (small bowel obstruction): Status: Acute (2) CAD (coronary artery disease): Status: Acute Plan 88 year old male with history of non insulin dependent type 2 diabetes, bph, pvd, htn, hld, gustavo not on cpap, cad s/p NICOLE RCA 11/22/23 on DAPT, and hx colorectal ca s/p resection admitted to general surgery with consult placed to hospitalist service for medical management. 1.SBO -resolved. -follow clinically and adjust management as indicated 2.Carotid stenosis -status post endarterectomy -no acute issues -as per vascular surgery 3.CAD Period of hypotension this a.m. along with EKG changes; TWI in lateral leads; 1st troponin negative -2D echo -discussed with Cardiology; will see in a.m. -continue DAPT 4.Non insulin dependent type 2 diabetes -acceptable control on current therapies -lispro correctional scale -adjust as indicated 5.HTN (relative hypotension this a.m.) -will continue to give Coreg as tolerated; hold other therapies -resume as clinically indicated DVT prophylaxis as per General surgery Full code Will follow Quality Stroke Does the patient have a stroke diagnosis?: Yes Reason for No Anti-thrombotic by Day Two: N/A - Med Ordered VTE Prior VTE?: No VTE Risk Level:: Surgical - moderate VTE Device Contraindication: N/A - Device Ordered VTE Drug Contraindication: Treatment Not Indicated
[2023-12-06 16:17] LABS: Glucose, Whole Blood 96 mg/dL (60-115)
--- NOTE | 2023-12-06 16:26 | MHC.EVENTN ---
Pt A&OX4. MAYNARD to command 5/5 sensation intact. Neurologically intact. LSCTA denies SOB or CP, NSR on tele. BS+X4 abdomen soft non-tender denies nausea/vomiting. Pt reports last BM 12/03 Dr Mae notified awaiting bowel med orders. OOB with steady gait refusing bed alarm pt educated on fall precautions. Denies pain although c/o sore throat, voice hoarse in am with edema below chin seemingly increased from previous day. Bruising noted from neck to upper chest dark purple/pink. Dressing to left lower lateral neck CDI. Steri strips to surgical site with old dried blood hanging loose. Dr Mae and Dr Shen notified on unit to see patient no new orders or concerns at this time. Pt resting throughout shift. Denies any further changes in pain or difficulty swallowing. Will continue to monitor and report changes
[2023-12-06] MEDS: Lactulose 20 GM/30 ML SOLUTION PO (16:58)
--- NOTE | 2023-12-06 20:24 | PC.NURSE ---
Addendum entered by Acacia Lawrence RN 12/06/23 20:43: Per MD Link, 7.5mg of Amlodipine ordered and given. Original Note: At approx 1930 pt BP 177/82. MD Link notified. No new orders at this time.
[2023-12-06] MEDS: amLODIPine Besylate 2.5 MG TABLET 7.5 MG PO (20:42)
[2023-12-07] VITALS (7 sets, daily range): BP systolic 126–156; BP diastolic 64–79; PULSE 51–76; RESP 18–20; TEMP 36.4–37; O2SAT 93–98
[2023-12-07 07:12] LABS: Basophils Percent Auto 0.5 % (0-2); Eosinophils Absolute Auto 0.4 X10*3/uL (0.0-0.4); Eosinophils Percent Auto 4.8 % (0-4); Hematocrit 33.9 % (42.0-52.0); Hemoglobin 11.3 g/dl (14.0-18.0); Imm Gran Abs Auto 0.08 X10*3/uL (0.00-0.03); Imm Gran Pct Auto 0.9 % (0.0-0.4); Lymphocytes Percent Auto 23.1 % (20-40); MANUAL DIFF FLAG SCAN; Mean Corpuscular HGB Conc 33.3 g/dl (31.0-36.0); Mean Corpuscular Hemoglobin 29.3 pg (27.0-33.0); Mean Corpuscular Volume 87.8 fL (80.0-98.0); Mean Platelet Volume 10.3 fL (9.4-12.4); Monocytes Absolute Auto 0.8 X10*3/uL (0.1-1.2); Monocytes Percent Auto 8.7 % (2-11); Neutrophils Absolute Auto 5.3 x10*3/uL (2.0-8.3); PLT CLUMP 1; Red Blood Count 3.86 X10*6/uL (4.60-5.80); Red Cell Distribution Width 12.8 % (11.0-16.0); SCAN SMEAR FLAG 1
[2023-12-07 07:24] LABS: Alanine Aminotransferase 20 U/L (0-40); Albumin Level 3.3 g/dL (3.5-5.0); Alkaline Phosphatase 70 U/L (39-117); Anion Gap 11 (12-20); Aspartate Amino Transferase 23 U/L (5-37); Bilirubin Total 0.4 mg/dL (0.0-1.0); Blood Urea Nitrogen 10 mg/dL (9-16); Calcium 8.5 mg/dL (8.4-10.2); Carbon Dioxide 25 mmol/L (22-29); Chloride 108 mmol/L (96-108); Creatinine Clr Calc Pharmacy 85.2; Estimated Glomerular Filt Rate > 60; Glucose Fasting 106 mg/dL (60-99); Potassium 3.9 mmol/L (3.3-5.1); Sodium 140 mmol/L (135-145); Total Protein 5.6 g/dL (6.5-8.0)
[2023-12-07 07:39] LABS: Platelet Count 218 X10*3/uL (160-400); White Blood Count 8.6 X10*3/uL (4.8-10.8)
[2023-12-07 07:40] LABS: SLIDE REVIEW VERIFIED
[2023-12-07] MEDS: Amiodarone HCL 200 MG TABLET 400 MG PO ×2 (09:15→22:37)
[2023-12-07] MEDS: 0.9 % Sodium Chloride Flush 3 ML SYRINGE IVFLUSH (09:15)
[2023-12-07] MEDS: Aspirin 81 MG TAB.CHEW PO (09:15)
[2023-12-07] MEDS: Clopidogrel Bisulfate 75 MG TABLET PO (09:15)
[2023-12-07] MEDS: Metoprolol Tartrate 12.5 MG HALFTAB PO (09:15)
[2023-12-07] MEDS: Lactulose 20 GM/30 ML SOLUTION PO (10:56)
[2023-12-07] MEDS: methylPREDNISolone Sod Succ 125 MG/2 ML VIAL IVPUSH (13:29)
[2023-12-07] MEDS: iohexoL 350 MG/ML 75 ML INFUS..BTL 60 ML IV (14:03)
--- NOTE | 2023-12-07 14:46 | P.PNIM_ITS ---
Subjective Subjective Date of Service: 12/07/23 Interval History: Complain of worsening swallowing along with sore throat earlier this a.m.. Otherwise no acute distress Review of Systems Denies chest pain Denies shortness of breath Denies nausea vomiting diarrhea Denies fever chills Physical Exam 2 Vital Signs: Vital Signs: Last Vital Signs Temp 97.5 F 12/07/23 11:57 Pulse 51 12/07/23 11:57 Resp 20 12/07/23 11:57 BP 135/64 12/07/23 11:57 Pulse Ox 97 12/07/23 11:57 O2 Del Method Room Air 12/07/23 11:57 O2 Flow Rate 2 12/05/23 08:00 Oxygen Flow Rate 2 12/05/23 07:19 BMI result Body Mass Index 23.7 Const: Other: Awake alert ambulatory without acute issues Neck: Other: Ecchymosis left lateral neck under chin; not firm soft to touch. No stridor appreciated Resp: Other: Clear to auscultation bilaterally no rales rhonchi or wheezes Cardio: Other: No S4; positive S1-S2; no S3 murmurs rubs or gallops GI: Other: Soft nontender nondistended normoactive bowel sounds Neuro: Other: Cranial nerves 2-12 grossly intact as tested. Motor is 5/5 all extremities. Sensation is intact. Cognition appropriate. Gait steady Extrem: Other: No edema bilaterally Objective Data Active Medications Acetaminophen (Acetaminophen 325 Mg Tablet) 650 mg PO Q6H PRN PRN Reason: Pain, Mild (Pain Scale 1-3) Al Hydroxide/Mg Hydroxide (Magnesium Hydrox/Alum Hydrox 30 Ml Oral.Susp) 30 ml PO Q4H PRN PRN Reason: Heartburn Last Admin: 12/02/23 18:29 Dose: 30 ml Documented By: BETO Amiodarone HCl (Amiodarone Hcl 200 Mg Tablet) 400 mg PO BID [facility] Last Admin: 12/07/23 09:15 Dose: 400 mg Documented By: NATE Amlodipine Besylate (Amlodipine Besylate 2.5 Mg Tablet) 7.5 mg PO BEDTIME [facility]; Protocol Last Admin: 12/06/23 20:42 Dose: 7.5 mg Documented By: EL Aspirin (Aspirin 81 Mg Tab.Chew) 81 mg PO DAILY [facility] Last Admin: 12/07/23 09:15 Dose: 81 mg Documented By: NATE Clopidogrel Bisulfate (Clopidogrel Bisulfate 75 Mg Tablet) 75 mg PO DAILY [facility] Last Admin: 12/07/23 09:15 Dose: 75 mg Documented By: NATE Dextrose (Dextrose 50 % 25 Gm/50 Ml Syringe) 25 gm IVPUSH Q15M PRN; Protocol PRN Reason: per Hypoglycemia Standing Ord. Fentanyl (Fentanyl Citrate/Pf 100 Mcg/2 Ml Vial) 50 mcg IVPUSH Q5M PRN; Protocol PRN Reason: Pain, Severe (Pain Scale 7-10) Last Admin: 12/04/23 12:00 Dose: 50 mcg Documented By: SANJUANA Glucose (Glucose Gel 15 Gm Gel..Gram.) 15 gm PO Q15M PRN; Protocol PRN Reason: per Hypoglycemia Standing Ord. Hydromorphone HCl (Hydromorphone Hcl 0.5 Mg/0.5 Ml Syringe) 0.5 mg IVPUSH Q3H PRN; Protocol PRN Reason: Pain, Severe (Pain Scale 7-10) Last Admin: 12/02/23 12:13 Dose: 0.5 mg Documented By: VASILE Lactulose (Lactulose 20 Gm/30 Ml Solution) 20 gm PO DAILY [facility] Last Admin: 12/07/23 10:56 Dose: 20 gm Documented By: NATE Metoprolol Tartrate (Metoprolol Tartrate 12.5 Mg Halftab) 12.5 mg PO DAILY [facility]; Protocol Last Admin: 12/07/23 09:15 Dose: 12.5 mg Documented By: NATE Ondansetron HCl (Ondansetron Hcl 4 Mg/2 Ml Vial) 4 mg IVPUSH QID PRN PRN Reason: Nausea Ondansetron HCl (Ondansetron Hcl 4 Mg/2 Ml Vial) 4 mg IVPUSH ONCE PRN PRN Reason: Nausea and Vomiting Oxycodone HCl (Oxycodone Hcl Immed Release 5 Mg Tablet) 5 mg PO Q4H PRN PRN Reason: Pain, Moderate(Pain Scale 4-6) Last Admin: 12/04/23 16:22 Dose: 5 mg Documented By: JAYE Sodium Chloride (0.9 % Sodium Chloride Flush 3 Ml Syringe) [facility] Last Admin: 12/07/23 09:15 Dose: 3 ml Documented By: NATE Zolpidem Tartrate (Zolpidem Tartrate 5 Mg Tablet) 5 mg PO BEDTIME PRN PRN Reason: Insomnia Labs 12/07/23 06:20 12/07/23 06:20 Labs: Laboratory Results - last 24 hr 12/06/23 12/07/23 16:14 06:20 MCV 87.8 MCH 29.3 MCHC 33.3 RDW 12.8 Plt Count 218 MPV 10.3 Immature Gran % (Auto) 0.9 H Neut % (Auto) 62.0 Lymph % (Auto) 23.1 [place] % (Auto) 8.7 Eos % (Auto) 4.8 H Baso % (Auto) 0.5 Lymph # (Auto) 2.0 [place] # (Auto) 0.8 Eos # (Auto) 0.4 Baso # (Auto) 0.0 Abs Immat Gran (auto) 0.08 H Absolute Neuts (auto) 5.3 Absolute Nucleated RBC 0.000 Nucleated RBC % (auto) 0.0 Smear Tech's Comments VERIFIED Anion Gap 11 L Estim Creat Clear Calc 85.2 Estimated GFR > 60 POC Glucose 96 Fasting Glucose 106 H Calcium 8.5 D Total Bilirubin 0.4 AST 23 ALT 20 Alkaline Phosphatase 70 Total Protein 5.6 L Albumin 3.3 L Microbiology Microbiology Results: Microbiology 12/02/23 09:31 Blood Culture - Final Blood - Venous No growth after 5 days. 12/02/23 08:57 Blood Culture - Final Blood - Venous No growth after 5 days. Assessment and Plan (1) History of left-sided carotid endarterectomy: Status: Acute (2) CAD (coronary artery disease): Status: Acute Plan 88 year old male with history of non insulin dependent type 2 diabetes, bph, pvd, htn, hld, gustavo not on cpap, cad s/p NICOLE RCA 11/22/23 on DAPT, and hx colorectal ca s/p resection admitted to general surgery with consult placed to hospitalist service for medical management. 1. Jeff hematuria with clots -per patient started after ICU stay. -obtain urine -urology consult 2.Carotid stenosis -status post endarterectomy -CT scan of neck done today secondary to difficulty swallowing.. . Await rate 3.Non insulin dependent type 2 diabetes -acceptable control on current therapies -lispro correctional scale -adjust as indicated 5.HTN -acceptable control on current therapies -adjust as indicated DVT prophylaxis as per General surgery Full code Requires ongoing hospitalization for completion of workup for dysphagia and for jeff hematuria with Urology consultation Quality Stroke Does the patient have a stroke diagnosis?: Yes Reason for No Anti-thrombotic by Day Two: N/A - Med Ordered VTE Prior VTE?: No VTE Risk Level:: Surgical - moderate VTE Device Contraindication: N/A - Device Ordered VTE Drug Contraindication: Treatment Not Indicated
[2023-12-07 14:54] LABS: MANUAL DIFF FLAG NO
[2023-12-07 14:55] LABS: Basophils Percent Auto 0.4 % (0-2); Eosinophils Absolute Auto 0.2 X10*3/uL (0.0-0.4); Eosinophils Percent Auto 2.5 % (0-4); Hematocrit 34.5 % (42.0-52.0); Hemoglobin 11.6 g/dl (14.0-18.0); Imm Gran Abs Auto 0.05 X10*3/uL (0.00-0.03); Imm Gran Pct Auto 0.6 % (0.0-0.4); Lymphocytes Absolute Auto 1.5 X10*3/uL (1.2-4.9); Lymphocytes Percent Auto 17.3 % (20-40); Mean Corpuscular HGB Conc 33.6 g/dl (31.0-36.0); Mean Corpuscular Hemoglobin 29.4 pg (27.0-33.0); Mean Corpuscular Volume 87.3 fL (80.0-98.0); Mean Platelet Volume 9.5 fL (9.4-12.4); Monocytes Absolute Auto 0.4 X10*3/uL (0.1-1.2); Monocytes Percent Auto 4.5 % (2-11); Neutrophils Absolute Auto 6.3 x10*3/uL (2.0-8.3); Neutrophils Percent Auto 74.7 % (45-73); Platelet Count 227 X10*3/uL (160-400); Red Blood Count 3.95 X10*6/uL (4.60-5.80); Red Cell Distribution Width 12.8 % (11.0-16.0); White Blood Count 8.5 X10*3/uL (4.8-10.8)
[2023-12-07 16:18] LABS: Appearance Urine Turbid; Color Urine Orange; Glucose Urine UA Negative (Negative); Leukocyte Esterase Urine Trace (Negative); Nitrite Urine Positive (Negative); PH 7.5 (5.0-9.0); Specific Gravity - Urine <= 1.005 (1.005-1.025); UMIC TRIGGER UA YES; Urine Blood Large (3+) (Negative); Urine Ketones Trace mg/dL (Negative); Urine Protein 300 (3+) mg/dL (Neg-Trace)
[2023-12-07 16:22] LABS: Bacteria Urine None Seen (None Seen); Hyaline Casts Urine 0-2 /LPF (0-2); RBC Urine >20 /HPF (0-2); Squamous Epithelial Cell Urine 0-2 /HPF (0-2)
[2023-12-07 16:38] LABS: WBC Urine 0-5 /HPF (0-5)
--- NOTE | 2023-12-07 17:37 | PM.UROCN ---
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 This was managed conservatively. Underwent left carotid endarterectomy vascular surgery. Postprocedure with hemorrhagic cystitis. May be related to intensive anticoagulation. Now has overlying urinary tract infection. Recommend antibiotics while urine culture pending Review of Systems Constitutional: Constitutional: Reports as per HPI and Reports no additional constitutional complaints Cardiovascular: Cardiovascular: Reports as per HPI and Reports no additional cardiovascular complaints Respiratory: Respiratory: Reports as per HPI and Reports no additional respiratory complaints Gastrointestinal: Gastrointestinal: Reports as per HPI and Reports no additional gastrointestinal complaints Genitourinary: Genitourinary: Reports as per HPI Musculoskeletal: Musculoskeletal: Reports no additional musculoskeletal complaints and Reports as per HPI Neurologic: Reports system reviewed and no additional complaints, except as documented and Reports as per HPI [facility] Past Medical History Medical History History of trigger finger Arthritis Rectal cancer Bladder neck contracture GERD (gastroesophageal reflux disease) Urinary incontinence Obstructive sleep apnea Coronary artery disease Type 2 diabetes mellitus with hyperglycemia Small bowel obstruction Erectile dysfunction Overweight (BMI 25.0-29.9) Peripheral vascular disease Hematuria Constipation BPH (benign prostatic hyperplasia) Prostate cancer Colon cancer Dysuria Hyperlipidemia, unspecified Essential hypertension Family History Family History Father Pancreatic cancer Mother No problems noted. Brother Liver cancer Surgical History Surgical History History of coronary artery stent placement History of exploratory laparotomy History of carpal tunnel release History of prostate surgery (~2017) History of bladder surgery (~01/04/18) History of colectomy History of appendectomy Social History Social History Household Members: Other Household Members Other:: Granddaughter Housing: House Are you a primary respiratory care assistant to a significant other at home: No Do you presently have visiting nurse or other home services: No Alcohol intake: never Comment: patient refusing bed alarm/alert&appropriate/uses can w/ ambulation Patient Tobacco Use Status: Never used Tobacco Tobacco use type: Cigar e-Cigarette/Vaping Use: Never Used Second Hand Smoke Exposure: No Advance Directives Date on File: 09/29/20 service: Yes Current occupational status: retired Cognitive needs: Yes (cane) Hearing needs: Yes (hearing aide) Vision needs: Yes (glasses) Meds Allergies Allergy/AdvReac Type Severity Reaction Status Date / Time diphenhydramine AdvReac Intermediate Hallucinati Verified 11/30/23 13:01 [From Tereza] ons Active Medications: Current Medications Acetaminophen (Acetaminophen 325 Mg Tablet) 650 mg PO Q6H PRN PRN Reason: Pain, Mild (Pain Scale 1-3) Al Hydroxide/Mg Hydroxide (Magnesium Hydrox/Alum Hydrox 30 Ml Oral.Susp) 30 ml PO Q4H PRN PRN Reason: Heartburn Last Admin: 12/02/23 18:29 Dose: 30 ml Amiodarone HCl (Amiodarone Hcl 200 Mg Tablet) 400 mg PO BID [facility] Last Admin: 12/07/23 09:15 Dose: 400 mg Amlodipine Besylate (Amlodipine Besylate 2.5 Mg Tablet) 7.5 mg PO BEDTIME [facility]; Protocol Last Admin: 12/06/23 20:42 Dose: 7.5 mg Aspirin (Aspirin 81 Mg Tab.Chew) 81 mg PO DAILY [facility] Last Admin: 12/07/23 09:15 Dose: 81 mg Clopidogrel Bisulfate (Clopidogrel Bisulfate 75 Mg Tablet) 75 mg PO DAILY [facility] Last Admin: 12/07/23 09:15 Dose: 75 mg Dextrose (Dextrose 50 % 25 Gm/50 Ml Syringe) 25 gm IVPUSH Q15M PRN; Protocol PRN Reason: per Hypoglycemia Standing Ord. Fentanyl (Fentanyl Citrate/Pf 100 Mcg/2 Ml Vial) 50 mcg IVPUSH Q5M PRN; Protocol PRN Reason: Pain, Severe (Pain Scale 7-10) Last Admin: 12/04/23 12:00 Dose: 50 mcg Glucose (Glucose Gel 15 Gm Gel..Gram.) 15 gm PO Q15M PRN; Protocol PRN Reason: per Hypoglycemia Standing Ord. Hydromorphone HCl (Hydromorphone Hcl 0.5 Mg/0.5 Ml Syringe) 0.5 mg IVPUSH Q3H PRN; Protocol PRN Reason: Pain, Severe (Pain Scale 7-10) Last Admin: 12/02/23 12:13 Dose: 0.5 mg Lactulose (Lactulose 20 Gm/30 Ml Solution) 20 gm PO DAILY [facility] Last Admin: 12/07/23 10:56 Dose: 20 gm Metoprolol Tartrate (Metoprolol Tartrate 12.5 Mg Halftab) 12.5 mg PO DAILY [facility]; Protocol Last Admin: 12/07/23 09:15 Dose: 12.5 mg Ondansetron HCl (Ondansetron Hcl 4 Mg/2 Ml Vial) 4 mg IVPUSH QID PRN PRN Reason: Nausea Ondansetron HCl (Ondansetron Hcl 4 Mg/2 Ml Vial) 4 mg IVPUSH ONCE PRN PRN Reason: Nausea and Vomiting Oxycodone HCl (Oxycodone Hcl Immed Release 5 Mg Tablet) 5 mg PO Q4H PRN PRN Reason: Pain, Moderate(Pain Scale 4-6) Last Admin: 12/04/23 16:22 Dose: 5 mg Sodium Chloride (0.9 % Sodium Chloride Flush 3 Ml Syringe) 3 ml IVFLUSH [facility] Last Admin: 12/07/23 09:15 Dose: 3 ml Zolpidem Tartrate (Zolpidem Tartrate 5 Mg Tablet) 5 mg PO BEDTIME PRN PRN Reason: Insomnia Home Medications Medication Instructions Recorded Confirmed Last Taken Type aspirin 81 mg tablet,delayed 81 mg PO DAILY 12/01/22 12/02/23 04/04/23 History release cyanocobalamin (vitamin B-12) 1,000 mcg PO DAILY 12/01/22 12/02/23 04/04/23 History 1,000 mcg tablet docusate sodium 100 mg capsule 100 mg PO DAILY PRN Constipation 04/04/23 12/02/23 Unknown History clopidogrel 75 mg tablet 75 mg PO DAILY 11/16/23 12/02/23 Unknown History metoprolol tartrate 25 mg tablet 12.5 mg PO DAILY 11/29/23 12/02/23 Unknown History Physical Exam Vital Signs: Vital Signs: Last Vital Signs Temp 98.3 F 12/07/23 15:51 Pulse 58 12/07/23 15:51 Resp 20 12/07/23 15:51 BP 142/66 H 12/07/23 15:51 Pulse Ox 96 12/07/23 15:51 O2 Del Method Room Air 12/07/23 15:51 O2 Flow Rate 2 12/05/23 08:00 Oxygen Flow Rate 2 12/05/23 07:19 BMI result Body Mass Index 23.7 Const: General: cooperative, healthy appearing, comfortable and no acute distress Orientation/consciousness: patient oriented x3 HEENT: Face and sinus: Yes normal facial exam Mouth: moist mucous membranes Neck: Neck: Yes normal visual inspection, Yes full ROM and Yes trachea midline Chest: Chest palpation & inspection: normal inspection of the chest Resp: Effort & Inspection: normal respiratory effort, able to speak in complete sentences and no respiratory distress GI: Inspection: Yes normal to inspection Back/Spine/Pelvis: Cervical Spine: normal cervical lordosis Thoracic/Lumbar Spine: thoracic and lumbar spine normal to inspection Skin: General skin exam: no rashes or lesions noted Neuro: General: patient oriented x3, tone normal and moves all extremities Extrem: General: Yes normal to inspection and Yes capillary refill normal Results Labs 12/07/23 14:51 12/07/23 06:20 Labs: Abnormal lab results 12/07/23 12/07/23 12/07/23 Range/Units 06:20 14:51 16:00 RBC 3.86 L 3.95 L (4.60-5.80) X10*6/uL Hgb 11.3 L 11.6 L (14.0-18.0) g/dl Hct 33.9 L 34.5 L (42.0-52.0) % Immature Gran % (Auto) 0.9 H 0.6 H (0.0-0.4) % Neut % (Auto) 74.7 H (45-73) % Lymph % (Auto) 17.3 L (20-40) % Eos % (Auto) 4.8 H (0-4) % Abs Immat Gran (auto) 0.08 H 0.05 H (0.00-0.03) X10*3/uL Anion Gap 11 L (12-20) Fasting Glucose 106 H (60-99) mg/dL Total Protein 5.6 L (6.5-8.0) g/dL Albumin 3.3 L (3.5-5.0) g/dL Urine Protein 300 (3+) H (Neg-Trace) mg/dL Urine Blood Large (3+) H (Negative) Urine Nitrite Positive H (Negative) Ur Leukocyte Esterase Trace H (Negative) Urine RBC >20 H (0-2) /HPF Short CBC 12/07/23 12/07/23 Range/Units 06:20 14:51 WBC 8.6 8.5 (4.8-10.8) X10*3/uL Hgb 11.3 L 11.6 L (14.0-18.0) g/dl Hct 33.9 L 34.5 L (42.0-52.0) % Plt Count 218 227 (160-400) X10*3/uL BMP 12/07/23 06:20 Sodium 140 Potassium 3.9 Chloride 108 Carbon Dioxide 25 BUN 10 Creatinine 0.71 Calcium 8.5 D Liver Function 12/07/23 Range/Units 06:20 Total Bilirubin 0.4 (0.0-1.0) mg/dL AST 23 (5-37) U/L ALT 20 (0-40) U/L Alkaline Phosphatase 70 (39-117) U/L Albumin 3.3 L (3.5-5.0) g/dL Urine 12/02/23 12/07/23 Range/Units 11:39 16:00 Urine Color Yellow [place] Urine Appearance Clear Turbid Urine pH 5.0 7.5 (5.0-9.0) Ur Specific [place] >= 1.030 H <= 1.005 (1.005-1.025) Urine Protein Trace 300 (3+) H (Neg-Trace) mg/dL Urine Glucose (UA) Negative Negative (Negative) mg/dL All other labs normal. Assessment and Plan (1) Prostate cancer: Status: Acute (2) Hemorrhagic cystitis: Status: Acute Plan Antibiotics Pending urine culture Procedures Date of Service Date of Service: 12/07/23
[2023-12-07] MEDS: amLODIPine Besylate 2.5 MG TABLET 7.5 MG PO (22:37)
[2023-12-08] VITALS (7 sets, daily range): BP systolic 107–160; BP diastolic 61–79; PULSE 66–89; RESP 16–20; TEMP 36.5–37.1; O2SAT 95–98
[2023-12-08 07:27] LABS: MANUAL DIFF FLAG NO
[2023-12-08 07:32] LABS: Basophils Percent Auto 0.1 % (0-2); Eosinophils Percent Auto 0.2 % (0-4); Hematocrit 32.8 % (42.0-52.0); Hemoglobin 11.1 g/dl (14.0-18.0); Imm Gran Abs Auto 0.06 X10*3/uL (0.00-0.03); Imm Gran Pct Auto 0.6 % (0.0-0.4); Lymphocytes Percent Auto 20.5 % (20-40); Mean Corpuscular HGB Conc 33.8 g/dl (31.0-36.0); Mean Corpuscular Hemoglobin 29.1 pg (27.0-33.0); Mean Corpuscular Volume 85.9 fL (80.0-98.0); Monocytes Absolute Auto 0.4 X10*3/uL (0.1-1.2); Monocytes Percent Auto 3.9 % (2-11); Neutrophils Absolute Auto 7.3 x10*3/uL (2.0-8.3); Neutrophils Percent Auto 74.7 % (45-73); Platelet Count 271 X10*3/uL (160-400); Red Blood Count 3.82 X10*6/uL (4.60-5.80); Red Cell Distribution Width 12.7 % (11.0-16.0); White Blood Count 9.8 X10*3/uL (4.8-10.8)
[2023-12-08 07:47] LABS: Alanine Aminotransferase 22 U/L (0-40); Albumin Level 3.4 g/dL (3.5-5.0); Alkaline Phosphatase 67 U/L (39-117); Anion Gap 12 (12-20); Aspartate Amino Transferase 20 U/L (5-37); Bilirubin Total 0.5 mg/dL (0.0-1.0); Blood Urea Nitrogen 14 mg/dL (9-16); Calcium 8.9 mg/dL (8.4-10.2); Carbon Dioxide 23 mmol/L (22-29); Chloride 106 mmol/L (96-108); Creatinine Clr Calc Pharmacy 90.3; Estimated Glomerular Filt Rate > 60; Glucose Fasting 144 mg/dL (60-99); Potassium 4.1 mmol/L (3.3-5.1); Sodium 137 mmol/L (135-145); Total Protein 5.9 g/dL (6.5-8.0)
[2023-12-08] MEDS: Clopidogrel Bisulfate 75 MG TABLET PO (09:33)
[2023-12-08] MEDS: Aspirin Enteric Coated 81 MG TABLET.DR PO (09:33)
[2023-12-08] MEDS: Lactulose 20 GM/30 ML SOLUTION PO (09:33)
[2023-12-08] MEDS: Metoprolol Tartrate 12.5 MG HALFTAB PO (09:33)
[2023-12-08] MEDS: Amiodarone HCL 200 MG TABLET 400 MG PO ×2 (09:33→21:15)
[2023-12-08] MEDS: 0.9 % Sodium Chloride Flush 3 ML SYRINGE IVFLUSH ×3 (09:33→21:15)
--- NOTE | 2023-12-08 10:29 | MHC.CM.PN ---
Per ROUNDS discussion, Patient is not yet medically cleared for dc (blood in urine & needs Urology consult); Home with new HVNA is the goal and CM will follow.
[2023-12-08] MEDS: cefTRIAXone sodium 1 GM in 0.9 % Sodium Chloride 50 ML IV (15:30)
--- NOTE | 2023-12-08 15:44 | P.PNIM_ITS ---
Subjective Subjective Date of Service: 12/08/23 Interval History: Continues to pass blood with clots. No other issues Review of Systems Denies chest pain Denies shortness of breath Denies nausea vomiting diarrhea Denies fever chills Physical Exam 2 Vital Signs: Vital Signs: Last Vital Signs Temp 97.7 F 12/08/23 11:12 Pulse 66 12/08/23 11:12 Resp 20 12/08/23 11:12 BP 123/62 12/08/23 11:12 Pulse Ox 96 12/08/23 11:12 O2 Del Method Room Air 12/08/23 11:12 O2 Flow Rate 2 12/05/23 08:00 Oxygen Flow Rate 2 12/05/23 07:19 BMI result Body Mass Index 23.7 Const: Other: Awake alert ambulatory without acute issues Neck: Other: Ecchymosis left lateral neck under chin; not firm soft to touch. No stridor appreciated Resp: Other: Clear to auscultation bilaterally no rales rhonchi or wheezes Cardio: Other: No S4; positive S1-S2; no S3 murmurs rubs or gallops GI: Other: Soft nontender nondistended normoactive bowel sounds Neuro: Other: Cranial nerves 2-12 grossly intact as tested. Motor is 5/5 all extremities. Sensation is intact. Cognition appropriate. Gait steady Extrem: Other: No edema bilaterally Objective Data Active Medications Acetaminophen (Acetaminophen 325 Mg Tablet) 650 mg PO Q6H PRN PRN Reason: Pain, Mild (Pain Scale 1-3) Al Hydroxide/Mg Hydroxide (Magnesium Hydrox/Alum Hydrox 30 Ml Oral.Susp) 30 ml PO Q4H PRN PRN Reason: Heartburn Last Admin: 12/02/23 18:29 Dose: 30 ml Documented By: BETO Amiodarone HCl (Amiodarone Hcl 200 Mg Tablet) 400 mg PO BID [facility] Last Admin: 12/08/23 09:33 Dose: 400 mg Documented By: NATE Amlodipine Besylate (Amlodipine Besylate 2.5 Mg Tablet) 7.5 mg PO BEDTIME [facility]; Protocol Last Admin: 12/07/23 22:37 Dose: 7.5 mg Documented By: ALFREDO Aspirin (Aspirin Enteric Coated 81 Mg Tablet.) 81 mg PO DAILY [facility] Last Admin: 12/08/23 09:33 Dose: 81 mg Documented By: NATE Clopidogrel Bisulfate (Clopidogrel Bisulfate 75 Mg Tablet) 75 mg PO DAILY [facility] Last Admin: 12/08/23 09:33 Dose: 75 mg Documented By: NATE Dextrose (Dextrose 50 % 25 Gm/50 Ml Syringe) 25 gm IVPUSH Q15M PRN; Protocol PRN Reason: per Hypoglycemia Standing Ord. Fentanyl (Fentanyl Citrate/Pf 100 Mcg/2 Ml Vial) 50 mcg IVPUSH Q5M PRN; Protocol PRN Reason: Pain, Severe (Pain Scale 7-10) Last Admin: 12/04/23 12:00 Dose: 50 mcg Documented By: SANJUANA Glucose (Glucose Gel 15 Gm Gel..Gram.) 15 gm PO Q15M PRN; Protocol PRN Reason: per Hypoglycemia Standing Ord. Hydromorphone HCl (Hydromorphone Hcl 0.5 Mg/0.5 Ml Syringe) 0.5 mg IVPUSH Q3H PRN; Protocol PRN Reason: Pain, Severe (Pain Scale 7-10) Last Admin: 12/02/23 12:13 Dose: 0.5 mg Documented By: VASILE Lactulose (Lactulose 20 Gm/30 Ml Solution) 20 gm PO DAILY [facility] Last Admin: 12/08/23 09:33 Dose: 20 gm Documented By: NATE Metoprolol Tartrate (Metoprolol Tartrate 12.5 Mg Halftab) 12.5 mg PO DAILY [facility]; Protocol Last Admin: 12/08/23 09:33 Dose: 12.5 mg Documented By: NATE Ondansetron HCl (Ondansetron Hcl 4 Mg/2 Ml Vial) 4 mg IVPUSH QID PRN PRN Reason: Nausea Ondansetron HCl (Ondansetron Hcl 4 Mg/2 Ml Vial) 4 mg IVPUSH ONCE PRN PRN Reason: Nausea and Vomiting Oxycodone HCl (Oxycodone Hcl Immed Release 5 Mg Tablet) 5 mg PO Q4H PRN PRN Reason: Pain, Moderate(Pain Scale 4-6) Last Admin: 12/04/23 16:22 Dose: 5 mg Documented By: JAYE Sodium Chloride (0.9 % Sodium Chloride Flush 3 Ml Syringe) [facility] Last Admin: 12/08/23 15:35 Dose: 3 ml Documented By: NATE Zolpidem Tartrate (Zolpidem Tartrate 5 Mg Tablet) 5 mg PO BEDTIME PRN PRN Reason: Insomnia Labs 12/08/23 06:33 12/08/23 06:33 Labs: Laboratory Results - last 24 hr 12/07/23 12/08/23 16:00 06:33 MCV 85.9 MCH 29.1 MCHC 33.8 RDW 12.7 Plt Count 271 MPV 10.0 Immature Gran % (Auto) 0.6 H Neut % (Auto) 74.7 H Lymph % (Auto) 20.5 [place] % (Auto) 3.9 Eos % (Auto) 0.2 Baso % (Auto) 0.1 Lymph # (Auto) 2.0 [place] # (Auto) 0.4 Eos # (Auto) 0.0 Baso # (Auto) 0.0 Abs Immat Gran (auto) 0.06 H Absolute Neuts (auto) 7.3 Absolute Nucleated RBC 0.000 Nucleated RBC % (auto) 0.0 Anion Gap 12 Estim Creat Clear Calc 90.3 Estimated GFR > 60 Fasting Glucose 144 H Calcium 8.9 Total Bilirubin 0.5 AST 20 ALT 22 Alkaline Phosphatase 67 Total Protein 5.9 L Albumin 3.4 L Urine Color [place] Urine Appearance Turbid Urine pH 7.5 Ur Specific [place] <= 1.005 Urine Protein 300 (3+) H Urine Glucose (UA) Negative Urine Ketones Trace Urine Blood Large (3+) H Urine Nitrite Positive H Ur Leukocyte Esterase Trace H Urine RBC >20 H Urine WBC 0-5 Ur Squamous Epith Cells 0-2 Urine Bacteria None Seen Hyaline Casts 0-2 Microbiology Microbiology Results: Microbiology 12/07/23 16:43 Urine Culture - Preliminary Urine clean catch - Clean Catch Midstream Culture too young to evaluate. 12/02/23 09:31 Blood Culture - Final Blood - Venous No growth after 5 days. 12/02/23 08:57 Blood Culture - Final Blood - Venous No growth after 5 days. Assessment and Plan (1) Hemorrhagic cystitis: Status: Acute Plan 88 year old male with history of non insulin dependent type 2 diabetes, bph, pvd, htn, hld, gustavo not on cpap, cad s/p NICOLE RCA 11/22/23 on DAPT, and hx colorectal ca s/p resection admitted to general surgery with consult placed to hospitalist service for medical management. 1. Jeff hematuria with clots -seen by Urology; question hemorrhagic cystitis -ceftriaxone 1 g Q 24 hours -await formal culture 2.Carotid stenosis -status post endarterectomy -CT scan of neck done today secondary to difficulty swallowing.. . Await rate 3.Non insulin dependent type 2 diabetes -acceptable control on current therapies -lispro correctional scale -adjust as indicated 5.HTN -acceptable control on current therapies -adjust as indicated DVT prophylaxis as per General surgery Full code Requires ongoing hospitalization for completion of workup for dysphagia and for jeff hematuria with Urology consultation Quality Stroke Does the patient have a stroke diagnosis?: Yes Reason for No Anti-thrombotic by Day Two: N/A - Med Ordered VTE Prior VTE?: No VTE Risk Level:: Surgical - moderate VTE Device Contraindication: N/A - Device Ordered VTE Drug Contraindication: Treatment Not Indicated
[2023-12-08] MEDS: amLODIPine Besylate 2.5 MG TABLET 7.5 MG PO (21:14)
[2023-12-09] VITALS (7 sets, daily range): BP systolic 126–159; BP diastolic 59–69; PULSE 57–68; RESP 16–20; TEMP 36.4–36.8; O2SAT 94–99
[2023-12-09 06:18] LABS: MANUAL DIFF FLAG NO
[2023-12-09 06:30] LABS: Basophils Absolute Auto 0.1 X10*3/uL (0.0-0.2); Basophils Percent Auto 0.4 % (0-2); Eosinophils Absolute Auto 0.3 X10*3/uL (0.0-0.4); Eosinophils Percent Auto 2.4 % (0-4); Hematocrit 32.3 % (42.0-52.0); Hemoglobin 10.9 g/dl (14.0-18.0); Imm Gran Abs Auto 0.09 X10*3/uL (0.00-0.03); Imm Gran Pct Auto 0.8 % (0.0-0.4); Lymphocytes Absolute Auto 2.9 X10*3/uL (1.2-4.9); Lymphocytes Percent Auto 26.1 % (20-40); Mean Corpuscular HGB Conc 33.7 g/dl (31.0-36.0); Mean Corpuscular Hemoglobin 29.4 pg (27.0-33.0); Mean Corpuscular Volume 87.1 fL (80.0-98.0); Mean Platelet Volume 9.9 fL (9.4-12.4); Monocytes Absolute Auto 0.9 X10*3/uL (0.1-1.2); Monocytes Percent Auto 7.6 % (2-11); Neutrophils Absolute Auto 7.1 x10*3/uL (2.0-8.3); Neutrophils Percent Auto 62.7 % (45-73); Platelet Count 268 X10*3/uL (160-400); Red Blood Count 3.71 X10*6/uL (4.60-5.80); White Blood Count 11.3 X10*3/uL (4.8-10.8)
[2023-12-09 06:44] LABS: Alanine Aminotransferase 24 U/L (0-40); Albumin Level 3.2 g/dL (3.5-5.0); Alkaline Phosphatase 68 U/L (39-117); Anion Gap 14 (12-20); Aspartate Amino Transferase 19 U/L (5-37); Bilirubin Total 0.4 mg/dL (0.0-1.0); Blood Urea Nitrogen 20 mg/dL (9-16); Calcium 8.7 mg/dL (8.4-10.2); Carbon Dioxide 21 mmol/L (22-29); Chloride 108 mmol/L (96-108); Creatinine Clr Calc Pharmacy 72.9; Estimated Glomerular Filt Rate > 60; Glucose Fasting 99 mg/dL (60-99); Sodium 139 mmol/L (135-145); Total Protein 5.5 g/dL (6.5-8.0)
[2023-12-09] MEDS: Aspirin Enteric Coated 81 MG TABLET.DR PO (08:51)
[2023-12-09] MEDS: Clopidogrel Bisulfate 75 MG TABLET PO (08:51)
[2023-12-09] MEDS: Lactulose 20 GM/30 ML SOLUTION PO (08:51)
[2023-12-09] MEDS: Amiodarone HCL 200 MG TABLET 400 MG PO ×2 (08:51→20:01)
[2023-12-09] MEDS: 0.9 % Sodium Chloride Flush 3 ML SYRINGE IVFLUSH ×3 (08:51→20:04)
[2023-12-09] MEDS: Metoprolol Tartrate 12.5 MG HALFTAB PO (08:51)
--- NOTE | 2023-12-09 13:26 | P.PNIM_ITS ---
Subjective Subjective Date of Service: 12/09/23 Interval History: Urine much clear. Infrequent clots. Review of Systems Denies chest pain Denies shortness of breath Denies nausea vomiting diarrhea Denies fever chills Physical Exam 2 Vital Signs: Vital Signs: Last Vital Signs Temp 98.0 F 12/09/23 12:00 Pulse 57 12/09/23 12:00 Resp 16 12/09/23 12:00 BP 158/69 H 12/09/23 12:00 Pulse Ox 99 12/09/23 12:00 O2 Del Method Room Air 12/09/23 12:00 O2 Flow Rate 2 12/05/23 08:00 Oxygen Flow Rate 2 12/05/23 07:19 BMI result Body Mass Index 23.7 Const: Other: Awake alert ambulatory without acute issues Neck: Other: Ecchymosis left lateral neck under chin; not firm soft to touch. No stridor appreciated Resp: Other: Clear to auscultation bilaterally no rales rhonchi or wheezes Cardio: Other: No S4; positive S1-S2; no S3 murmurs rubs or gallops GI: Other: Soft nontender nondistended normoactive bowel sounds Neuro: Other: Cranial nerves 2-12 grossly intact as tested. Motor is 5/5 all extremities. Sensation is intact. Cognition appropriate. Gait steady Extrem: Other: No edema bilaterally Objective Data Active Medications Acetaminophen (Acetaminophen 325 Mg Tablet) 650 mg PO Q6H PRN PRN Reason: Pain, Mild (Pain Scale 1-3) Al Hydroxide/Mg Hydroxide (Magnesium Hydrox/Alum Hydrox 30 Ml Oral.Susp) 30 ml PO Q4H PRN PRN Reason: Heartburn Last Admin: 12/02/23 18:29 Dose: 30 ml Documented By: BETO Amiodarone HCl (Amiodarone Hcl 200 Mg Tablet) 400 mg PO BID [facility] Last Admin: 12/09/23 08:51 Dose: 400 mg Documented By: NATE Amlodipine Besylate (Amlodipine Besylate 2.5 Mg Tablet) 7.5 mg PO BEDTIME [facility]; Protocol Last Admin: 12/08/23 21:14 Dose: 7.5 mg Documented By: OSCAR Aspirin (Aspirin Enteric Coated 81 Mg Tablet.) 81 mg PO DAILY [facility] Last Admin: 12/09/23 08:51 Dose: 81 mg Documented By: NATE Clopidogrel Bisulfate (Clopidogrel Bisulfate 75 Mg Tablet) 75 mg PO DAILY [facility] Last Admin: 12/09/23 08:51 Dose: 75 mg Documented By: NATE Dextrose (Dextrose 50 % 25 Gm/50 Ml Syringe) 25 gm IVPUSH Q15M PRN; Protocol PRN Reason: per Hypoglycemia Standing Ord. Glucose (Glucose Gel 15 Gm Gel..Gram.) 15 gm PO Q15M PRN; Protocol PRN Reason: per Hypoglycemia Standing Ord. Hydromorphone HCl (Hydromorphone Hcl 0.5 Mg/0.5 Ml Syringe) 0.5 mg IVPUSH Q3H PRN; Protocol PRN Reason: Pain, Severe (Pain Scale 7-10) Last Admin: 12/02/23 12:13 Dose: 0.5 mg Documented By: VASILE Lactulose (Lactulose 20 Gm/30 Ml Solution) 20 gm PO DAILY [facility] Last Admin: 12/09/23 08:51 Dose: 20 gm Documented By: NATE Metoprolol Tartrate (Metoprolol Tartrate 12.5 Mg Halftab) 12.5 mg PO DAILY [facility]; Protocol Last Admin: 12/09/23 08:51 Dose: 12.5 mg Documented By: NATE Ondansetron HCl (Ondansetron Hcl 4 Mg/2 Ml Vial) 4 mg IVPUSH QID PRN PRN Reason: Nausea Ondansetron HCl (Ondansetron Hcl 4 Mg/2 Ml Vial) 4 mg IVPUSH ONCE PRN PRN Reason: Nausea and Vomiting Sodium Chloride (0.9 % Sodium Chloride Flush 3 Ml Syringe) 3 ml IVFLUSH QSHIFT [facility] Last Admin: 12/09/23 08:51 Dose: 3 ml Documented By: NATE Zolpidem Tartrate (Zolpidem Tartrate 5 Mg Tablet) 5 mg PO BEDTIME PRN PRN Reason: Insomnia Labs 12/09/23 05:38 12/09/23 05:38 Labs: Laboratory Results - last 24 hr 12/09/23 05:38 MCV 87.1 MCH 29.4 MCHC 33.7 RDW 13.0 Plt Count 268 MPV 9.9 Immature Gran % (Auto) 0.8 H Neut % (Auto) 62.7 Lymph % (Auto) 26.1 [place] % (Auto) 7.6 Eos % (Auto) 2.4 Baso % (Auto) 0.4 Lymph # (Auto) 2.9 [place] # (Auto) 0.9 Eos # (Auto) 0.3 Baso # (Auto) 0.1 Abs Immat Gran (auto) 0.09 H Absolute Neuts (auto) 7.1 Absolute Nucleated RBC 0.000 Nucleated RBC % (auto) 0.0 Anion Gap 14 Estim Creat Clear Calc 72.9 Estimated GFR > 60 Fasting Glucose 99 Calcium 8.7 Total Bilirubin 0.4 AST 19 ALT 24 Alkaline Phosphatase 68 Total Protein 5.5 L Albumin 3.2 L Microbiology Microbiology Results: Microbiology 12/07/23 16:43 Urine Culture - Preliminary Urine clean catch - Clean Catch Midstream Gram negative jimmie Gram positive cocci Assessment and Plan (1) Hemorrhagic cystitis: Status: Acute (2) History of left-sided carotid endarterectomy: Status: Acute Plan 88 year old male with history of non insulin dependent type 2 diabetes, bph, pvd, htn, hld, gustavo not on cpap, cad s/p NICOLE RCA 11/22/23 on DAPT, and hx colorectal ca s/p resection admitted to general surgery with consult placed to hospitalist service for medical management. 1. Jeff hematuria with clots -ceftriaxone (2) -preliminary culture greater than [id number] g negative rods; [id number] Gram- positive cocci -await formal ID. Blood cultures negative thus far 2.Carotid stenosis -status post endarterectomy -no acute issues 3.Non insulin dependent type 2 diabetes -acceptable control on current therapies -lispro correctional scale -adjust as indicated 5.HTN -acceptable control on current therapies -adjust as indicated DVT prophylaxis as per General surgery Full code Requires ongoing hospitalization for completion of workup for dysphagia and for jeff hematuria with Urology consultation Quality Stroke Does the patient have a stroke diagnosis?: Yes Reason for No Anti-thrombotic by Day Two: N/A - Med Ordered VTE Prior VTE?: No VTE Risk Level:: Surgical - moderate VTE Device Contraindication: N/A - Device Ordered VTE Drug Contraindication: Treatment Not Indicated
[2023-12-09] MEDS: cefTRIAXone sodium 1 GM in 0.9 % Sodium Chloride 50 ML IV (17:45)
[2023-12-09] MEDS: amLODIPine Besylate 2.5 MG TABLET 7.5 MG PO (20:01)
[2023-12-10 03:37] VITALS: BP 136/65; PULSE 70; RESP 14; TEMP 36.2; O2SAT 97
[2023-12-10 06:09] LABS: MANUAL DIFF FLAG NO
[2023-12-10 06:29] LABS: Basophils Absolute Auto 0.1 X10*3/uL (0.0-0.2); Basophils Percent Auto 0.5 % (0-2); Eosinophils Absolute Auto 0.4 X10*3/uL (0.0-0.4); Hemoglobin 11.2 g/dl (14.0-18.0); Imm Gran Abs Auto 0.13 X10*3/uL (0.00-0.03); Imm Gran Pct Auto 1.3 % (0.0-0.4); Lymphocytes Absolute Auto 2.6 X10*3/uL (1.2-4.9); Lymphocytes Percent Auto 26.5 % (20-40); Mean Corpuscular HGB Conc 33.9 g/dl (31.0-36.0); Mean Corpuscular Hemoglobin 29.8 pg (27.0-33.0); Mean Corpuscular Volume 87.8 fL (80.0-98.0); Mean Platelet Volume 9.9 fL (9.4-12.4); Monocytes Absolute Auto 0.9 X10*3/uL (0.1-1.2); Monocytes Percent Auto 8.8 % (2-11); Neutrophils Absolute Auto 5.7 x10*3/uL (2.0-8.3); Neutrophils Percent Auto 58.9 % (45-73); Platelet Count 285 X10*3/uL (160-400); Red Blood Count 3.76 X10*6/uL (4.60-5.80); Red Cell Distribution Width 13.2 % (11.0-16.0); White Blood Count 9.6 X10*3/uL (4.8-10.8)
[2023-12-10 07:00] VITALS: O2SAT 97
[2023-12-10 07:24] VITALS: BP 134/69; PULSE 63; RESP 20; TEMP 36.8; O2SAT 98
[2023-12-10] MEDS: Clopidogrel Bisulfate 75 MG TABLET PO (07:54)
[2023-12-10] MEDS: Metoprolol Tartrate 12.5 MG HALFTAB PO (07:54)
[2023-12-10] MEDS: Lactulose 20 GM/30 ML SOLUTION PO (07:54)
[2023-12-10] MEDS: Aspirin Enteric Coated 81 MG TABLET.DR PO (07:54)
[2023-12-10] MEDS: Amiodarone HCL 200 MG TABLET 400 MG PO (07:54)
--- NOTE | 2023-12-10 09:38 | ECG_ITS ---
Test Reason : new med Blood Pressure : / mmHG Vent. Rate : 047 BPM Atrial Rate : 047 BPM P-R Int : 238 ms QRS Dur : 096 ms QT Int : 478 ms P-R-T Axes : 023 006 077 degrees QTc Int : 423 ms Sinus bradycardia with 1st degree A-V block Otherwise normal ECG When compared with ECG of 02-DEC-2023 08:26, DC interval has increased Referred By: Sean Pina Electronically Signed By:Jairo Andrew
--- NOTE | 2023-12-10 09:39 | PM.CNCAR ---
History of Present Illness History of Present Illness Date of Service: 12/10/23 Chief complaint: Partial small-bowel obstruction Narrative: This is a cardiology consultation regarding atrial fibrillation. Patient was seen in clinic recently and cleared for the surgery. It seems surgery itself was uneventful but then immediately after the surgery he developed atrial fibrillation. That last for a few hours and not to prolonged. Then he was put on amiodarone drip and then switched over to oral amiodarone. He has not had any further episodes of atrial fibrillation and has been in sinus bradycardia/sinus rhythm. Patient himself does not have any cardiac symptoms at this time. We have been asked to see him for further evaluation and plan further care. Otherwise, recent right coronary artery intervention which was done elective basis due to severe stenosis. He is on dual antiplatelet therapy for that. Review of Systems Review of Systems: Yes all other systems are reviewed and are negative Constitutional: Constitutional: Reports as per HPI and Reports no additional constitutional complaints Eyes: Eyes: Reports as per HPI and Denies no additional eye complaints ENT: Denies system reviewed and no additional complaints, except as documented and Reports as per HPI Cardiovascular: Cardiovascular: Reports as per HPI, Reports no additional cardiovascular complaints, Denies acrocyanosis, Denies cool extremities, Denies chest pain, Denies leg edema, Denies lightheadedness, Denies palpitations and Denies dyspnea Respiratory: Respiratory: Reports as per HPI, Denies no additional respiratory complaints and Denies dyspnea Gastrointestinal: Gastrointestinal: Reports as per HPI and Denies no additional gastrointestinal complaints Genitourinary: Genitourinary: Reports no additional male genitourinary complaints and Reports as per HPI Musculoskeletal: Musculoskeletal: Reports no additional musculoskeletal complaints and Reports as per HPI Integumentary/Breasts: Skin/Breast: Reports system reviewed and no additional complaints, except as docu Neurologic: Reports system reviewed and no additional complaints, except as documented and Reports as per HPI Psychiatric: Psychiatric: Reports no additional psychiatric complaints and Reports as per HPI Endocrine: Endocrine: Reports no additional endocrine complaints, Reports as per HPI and Denies palpitations Hematologic/Lymphatic: Hematologic/Lymphatic: Reports no additional hematologic/lymphatic complaints and Reports as per HPI Allergic/Immunologic: Allergic/Immunologic: Reports no additional allergic/immunologic complaints and Reports as per HPI [facility] Past Medical History Medical History History of trigger finger Arthritis Rectal cancer Bladder neck contracture GERD (gastroesophageal reflux disease) Urinary incontinence Obstructive sleep apnea Coronary artery disease Type 2 diabetes mellitus with hyperglycemia Small bowel obstruction Erectile dysfunction Overweight (BMI 25.0-29.9) Peripheral vascular disease Hematuria Constipation BPH (benign prostatic hyperplasia) Prostate cancer Colon cancer Dysuria Hyperlipidemia, unspecified Essential hypertension Family History Family History Father Pancreatic cancer Mother No problems noted. Brother Liver cancer Surgical History Surgical History History of coronary artery stent placement History of exploratory laparotomy History of carpal tunnel release History of prostate surgery (~2016) History of bladder surgery (~01/04/18) History of colectomy History of appendectomy Social History Social History Household Members: Other Household Members Other:: Granddaughter Housing: House Are you a primary child day care teacher to a significant other at home: No Do you presently have visiting nurse or other home services: No Alcohol intake: never Comment: patient refusing bed alarm/alert&appropriate/uses can w/ ambulation Patient Tobacco Use Status: Never used Tobacco Tobacco use type: Cigar e-Cigarette/Vaping Use: Never Used Second Hand Smoke Exposure: No Advance Directives Date on File: 09/29/20 service: Yes Current occupational status: retired Cognitive needs: Yes (cane) Hearing needs: Yes (hearing aide) Vision needs: Yes (glasses) Meds Allergies Allergy/AdvReac Type Severity Reaction Status Date / Time diphenhydramine AdvReac Intermediate Hallucinati Verified 11/30/23 13:01 [From Tereza] ons Active Medications: Current Medications Acetaminophen (Acetaminophen 325 Mg Tablet) 650 mg PO Q6H PRN PRN Reason: Pain, Mild (Pain Scale 1-3) Al Hydroxide/Mg Hydroxide (Magnesium Hydrox/Alum Hydrox 30 Ml Oral.Susp) 30 ml PO Q4H PRN PRN Reason: Heartburn Last Admin: 12/02/23 18:29 Dose: 30 ml Amiodarone HCl (Amiodarone Hcl 200 Mg Tablet) 400 mg PO BID KRISTINE Last Admin: 12/10/23 07:54 Dose: 400 mg Amlodipine Besylate (Amlodipine Besylate 2.5 Mg Tablet) 7.5 mg PO BEDTIME [facility]; Protocol Last Admin: 12/09/23 20:01 Dose: 7.5 mg Aspirin (Aspirin Enteric Coated 81 Mg Tablet.Dr) 81 mg PO DAILY [facility] Last Admin: 12/10/23 07:54 Dose: 81 mg Clopidogrel Bisulfate (Clopidogrel Bisulfate 75 Mg Tablet) 75 mg PO DAILY [facility] Last Admin: 12/10/23 07:54 Dose: 75 mg Dextrose (Dextrose 50 % 25 Gm/50 Ml Syringe) 25 gm IVPUSH Q15M PRN; Protocol PRN Reason: per Hypoglycemia Standing Ord. Glucose (Glucose Gel 15 Gm Gel..Gram.) 15 gm PO Q15M PRN; Protocol PRN Reason: per Hypoglycemia Standing Ord. Hydromorphone HCl (Hydromorphone Hcl 0.5 Mg/0.5 Ml Syringe) 0.5 mg IVPUSH Q3H PRN; Protocol PRN Reason: Pain, Severe (Pain Scale 7-10) Last Admin: 12/02/23 12:13 Dose: 0.5 mg Ceftriaxone Sodium 1 gm/ (Sodium Chloride) 50 mls @ 100 mls/hr IV Q24H [facility] Last Infusion: 12/09/23 19:58 Dose: Infused Lactulose (Lactulose 20 Gm/30 Ml Solution) 20 gm PO DAILY [facility] Last Admin: 12/10/23 07:54 Dose: 20 gm Metoprolol Tartrate (Metoprolol Tartrate 12.5 Mg Halftab) 12.5 mg PO DAILY [facility]; Protocol Last Admin: 12/10/23 07:54 Dose: 12.5 mg Ondansetron HCl (Ondansetron Hcl 4 Mg/2 Ml Vial) 4 mg IVPUSH QID PRN PRN Reason: Nausea Ondansetron HCl (Ondansetron Hcl 4 Mg/2 Ml Vial) 4 mg IVPUSH ONCE PRN PRN Reason: Nausea and Vomiting Sodium Chloride (0.9 % Sodium Chloride Flush 3 Ml Syringe) 3 ml IVFLUSH QSHIFT [facility] Last Admin: 12/10/23 08:01 Dose: Not Given Zolpidem Tartrate (Zolpidem Tartrate 5 Mg Tablet) 5 mg PO BEDTIME PRN PRN Reason: Insomnia Home Medications Medication Instructions Recorded Confirmed Last Taken Type aspirin 81 mg tablet,delayed 81 mg PO DAILY 12/01/22 12/02/23 04/04/23 History release cyanocobalamin (vitamin B-12) 1,000 mcg PO DAILY 12/01/22 12/02/23 04/04/23 History 1,000 mcg tablet docusate sodium 100 mg capsule 100 mg PO DAILY PRN Constipation 04/04/23 12/02/23 Unknown History clopidogrel 75 mg tablet 75 mg PO DAILY 11/16/23 12/02/23 Unknown History metoprolol tartrate 25 mg tablet 12.5 mg PO DAILY 11/29/23 12/02/23 Unknown History Physical Exam Vital Signs: Vital Signs: Last Vital Signs Temp 98.3 F 12/10/23 07:24 Pulse 63 12/10/23 07:24 Resp 20 12/10/23 07:24 BP 134/69 12/10/23 07:24 Pulse Ox 98 12/10/23 07:24 O2 Del Method Room Air 12/10/23 07:24 O2 Flow Rate 2 12/05/23 08:00 Oxygen Flow Rate 2 12/05/23 07:19 BMI result Body Mass Index 23.7 Const: General: comfortable and no acute distress Orientation/consciousness: patient oriented x3 HEENT: Other: Unremarkable Head: Yes normal to inspection Neck: Neck: Yes normal visual inspection Chest: Chest palpation & inspection: normal inspection of the chest Resp: Auscultation: clear to auscultation bilaterally Cardio: Palpation: normal PMI Heart sounds: S1 normal heart sound present, S2 normal heart sound present, no gallops, no murmurs and no rubs GI: Palpation (GI): Soft to palpation Back/Spine/Pelvis: Other: unremarkable Skin: General skin exam: no rashes or lesions noted Neuro: General: patient oriented x3 Extrem: General: Yes normal to inspection Psych: Mental Status: mental status grossly normal Objective Labs and Meds 12/10/23 05:42 12/09/23 05:38 Lab results: Laboratory Results - last 24 hr 12/10/23 05:42 WBC 9.6 RBC 3.76 L Hgb 11.2 L Hct 33.0 L MCV 87.8 MCH 29.8 MCHC 33.9 RDW 13.2 Plt Count 285 MPV 9.9 Immature Gran % (Auto) 1.3 H Neut % (Auto) 58.9 Lymph % (Auto) 26.5 [place] % (Auto) 8.8 Eos % (Auto) 4.0 Baso % (Auto) 0.5 Lymph # (Auto) 2.6 [place] # (Auto) 0.9 Eos # (Auto) 0.4 Baso # (Auto) 0.1 Abs Immat Gran (auto) 0.13 H Absolute Neuts (auto) 5.7 Absolute Nucleated RBC 0.000 Nucleated RBC % (auto) 0.0 ECG Interpretation: EKG today shows sinus bradycardia at 47/Min; TN prolongation to 138 millisecond; normal corrected QT. Assessment and Plan (1) Preoperative cardiovascular examination: Status: Acute (2) History of left-sided carotid endarterectomy: Status: Acute (3) CAD (coronary artery disease): Status: Acute (4) Afib: Status: Acute Plan Isolated episode of perioperative atrial fibrillation in the context of carotid endarterectomy. This is well controlled and no evidence of recurrent atrial fibrillation. We will use short-term amiodarone. Probably for a week only and then stopped. Can switch to 200 mg daily. Due to recent PCI, recommend continuing dual antiplatelet therapy. Will follow-up in the clinic. Discussed with Dr. Mae. Procedures Date of Service Date of Service: 12/10/23
--- NOTE | 2023-12-10 11:22 | PM.DS ---
DS: Providers Provider Date of Service: 12/10/23 Date of admission: 12/02/23 09:59 Date of discharge: 12/10/23 Primary care physician: Pro Nunn MD Consults: 12/02/23 09:55 Consult to Hospitalist Routine Comment: Consulting Provider: Hospitalist Reason For Exam: pSBO, CAD, s/o cardiac stent, carotid stenosis 12/07/23 14:39 Consult to Urology Routine Consulting Provider: Jerman Hein Reason for consultation: Peter hematuria Has provider been notified: No 12/10/23 11:18 Consult to Cardiology Routine Consulting Provider: [facility] [place] [facility] Reason for consultation: afib Has provider been notified: Yes DS: Diagnosis Discharge Diagnosis (1) Preoperative cardiovascular examination: Status: Acute (2) History of left-sided carotid endarterectomy: Status: Acute (3) CAD (coronary artery disease): Status: Acute (4) Afib: Status: Acute DS: Summary Hospital Course Hospital Course: Geoffrey Bone is a 88 year old male with PMH significant for coronary artery disease, status post cardiac stent placement 1 week ago, carotid artery disease, awaiting carotid endarterectomy on Monday, colorectal cancer status post resection, hx of small bowel obstructions, diet-controlled diabetes mellitus, prostate cancer, essential hypertension who presented to the ED with complaints of severe, diffuse abd pain. He has had a previous history of bowel obstructions which have resolved non operatively and was well since January 2023. He developed severe abdominal pain during the night last night and subsequently presented to the emergency department for further evaluation. He tried taking lactulose without any results. The pain is associated with nausea without vomiting. In the ED, he was noted to be diffusely tender. Laboratory showed an elevated WBC of 12.1, likely reactive. He is afebrile with stable vital signs. CT abdomen and pelvis revealed dilated loops of small bowel without a clear transition point but with air-fluid level suggestive of a partial obstruction. There is gas and stool within the colon. Official radiology reading is not available at the time of this dictation. Hospital Course Admitted to telemetry and kept NPO. Over the course of the next 24-48 hours small bowel obstruction resolved. On 12/04/2023 he underwent a left carotid endarterectomy by Dr. Yi without issue. Postoperatively he was 24 hours in ICU. During that time, a Fam catheter was placed. Upon transfer to the floor Fam was DC. Over the next several days he continued to have bloody urine with clots; it was thought that it was a traumatic insertion in the backdrop of Plavix and aspirin. Culture was taken which demonstrated Enterococcus sensitive to Levaquin. In the ICU he developed AFib which was self-limiting. Seen in consultation by Cardiology who recommended amiodarone load orally; will be discharged on amiodarone 200 mg daily. He will follow up in the office with both vascular surgery and Cardiology. At the day of discharge, he is ambulating ad kun in the hallway with his daughter and is medically acceptable for discharge home Time Attestation Discharge coordination time: Greater than 30 minutes Quality: Safe Use of Opioids Does Pt have an Active Cancer Diagnosis on the Problem List?: No Quality: Stroke Does the patient have a stroke diagnosis?: No Physical Exam Vital Signs: Vital Signs: Last Vital Signs Temp 98.3 F 12/10/23 07:24 Pulse 63 12/10/23 07:24 Resp 20 12/10/23 07:24 BP 134/69 12/10/23 07:24 Pulse Ox 98 12/10/23 07:24 O2 Del Method Room Air 12/10/23 07:24 O2 Flow Rate 2 12/05/23 08:00 Oxygen Flow Rate 2 12/05/23 07:19 BMI result Body Mass Index 23.7 Const: Other: Awake alert ambulatory without acute issues Neck: Other: Ecchymosis left lateral neck under chin; not firm soft to touch. No stridor appreciated Resp: Other: Clear to auscultation bilaterally no rales rhonchi or wheezes Cardio: Other: No S4; positive S1-S2; no S3 murmurs rubs or gallops GI: Other: Soft nontender nondistended normoactive bowel sounds Neuro: Other: Cranial nerves 2-12 grossly intact as tested. Motor is 5/5 all extremities. Sensation is intact. Cognition appropriate. Gait steady Extrem: Other: No edema bilaterally DS: Data Data Completed and Pending Completed studies during hospitalization [Text1]: Pending at discharge 12/04/23 09:33 Surgical [PTH] Routine Procedures Dilation of Bladder Neck, Via Natural or Artificial Opening Endoscopic (09/30/20) Drainage of Bladder with Drainage Device, Via Natural or Artificial Opening Endoscopic (09/30/20) Insertion of Infusion Device into Superior Vena Cava, Percutaneous Approach (08/27/20) Ultrasonography of Superior Vena Cava, Guidance (08/27/20) Labs on day of discharge: Laboratory Results - last 24 hr 12/10/23 05:42 WBC 9.6 RBC 3.76 L Hgb 11.2 L Hct 33.0 L MCV 87.8 MCH 29.8 MCHC 33.9 RDW 13.2 Plt Count 285 MPV 9.9 Immature Gran % (Auto) 1.3 H Neut % (Auto) 58.9 Lymph % (Auto) 26.5 [place] % (Auto) 8.8 Eos % (Auto) 4.0 Baso % (Auto) 0.5 Lymph # (Auto) 2.6 [place] # (Auto) 0.9 Eos # (Auto) 0.4 Baso # (Auto) 0.1 Abs Immat Gran (auto) 0.13 H Absolute Neuts (auto) 5.7 Absolute Nucleated RBC 0.000 Nucleated RBC % (auto) 0.0 Preliminary micro results at discharge 12/07/23 16:43 Urine Culture - Preliminary Urine clean catch - Clean Catch Midstream Morganella morganii ssp matteo Enterococcus/Streptococcus sp Discharge Plan Discharge Anticipated Discharge Date/Time: 12/10/23 11:16 Patient Disposition: Home, Self-Care Discharge Diagnosis: Hemorrhagic cystitis Referrals: Aditya HOPKINS [Outside] - 1 Week Po,Pro Adame MD [Primary Care Provider] - 1 Week Discharge Medications: New amlodipine 2.5 mg Tablet 7.5 mg PO BEDTIME Qty: 90 2RF Protocol: Hold for SBP< HOLD for SBP < : 90 amiodarone 200 mg tablet 200 mg PO DAILY Qty: 30 3RF levofloxacin 500 mg tablet 500 mg PO DAILY 7 Days Qty: 7 0RF Continued lactulose 10 gram/15 mL solution 30 ml PO DAILY PRN (Reason: for constipation) Qty: 946 0RF cyanocobalamin (vitamin B-12) 1,000 mcg Tablet 1,000 mcg PO DAILY aspirin 81 mg Tablet,Delayed Release (Dr/Ec) 81 mg PO DAILY docusate sodium 100 mg Capsule 100 mg PO DAILY PRN (Reason: Constipation) metoprolol tartrate 25 mg tablet 12.5 mg PO DAILY rosuvastatin [Crestor] 10 mg tablet 10 mg PO DAILY Qty: 90 3RF clopidogrel 75 mg tablet 75 mg PO DAILY Discharge Orders: Discharge Order (Routine); Ordered 12/10/23 Ordered By: Jem Mae Diet: Advance to usual diet Activity on Discharge: As tolerated Stand Alone Forms: Patient Portal Discharge page Activity Restrictions/Additional Instructions: you may shower as early as you may ambulate around the house. Within 24 hours you can resume normal activity You may climb a flight of stairs as tolerated Do not lift anything heavier than a gallon of milk See Dr. Shen in follow-up in approximately 2 weeks time. You should already have an appointment if not please call my office at [phone] Please see above for any change in medications If you notice excessive bleeding from the neck please immediately call my office or return to the emergency room. Care Plan Goals: Resume all medicines as taken prior to hospital Health Concerns: Follow-up with vascular surgery as scheduled 2 weeks and follow up with call center nurse next available Plan of Treatment: Amlodipine 2.5 mg tabs (3) daily, amiodarone 200 mg daily, Ceftin 500 mg twice daily x7 days Assessment: See discharge summary
--- NOTE | 2023-12-10 11:45 | P.F2F_ITS ---
Service Date Service Date: 12/10/23 Encounter Date of encounter: 12/10/23 Encounter: Acute hospitalization Reasons for Services Signs and symptoms assessed: Monitor hematuria and resolution of symptoms; status post carotid endarterectomy; follow wound management and progress Reason for group home: neurological assessment and medication management Homebound: Leaving the home is medically contraindicated at this time without the asist of a device and/or another person due th the listed conditions above and below. Reason homebound: unsteady gait / fall risk and unable to drive Certification: Based on the above findings, I certify that this patient is confined to the home and needs intermittent group home care, physical therapy and/or speech therapy, or continues to need occupational therapy. The patient is under my care, and I have initiated the establishment of the plan of care. The patient will be followed by a physician who will periodically review the plan of care. Time Spent With Patient Time: Total time managing care of this patient today ____ minutes.
--- NOTE | 2023-12-10 11:50 | MHC.CM.PN ---
Second IMM given 12/10. Pt is medically cleared for D/C home with new [facility]. Pts daughter will transport him home.
== END 2023-12-10 12:12 | disposition home or self-care (01) | DRG 38 ==
LOC: HO.ED 08:18 → HO.EDOVER 10:00 → HO.S3 11:14 → HO.ICU 12-04 10:43 → HO.IMC 12-05 10:33
PROVIDERS: Internal Medicine Pulmonary Disease; Surgery Vascular Surgery; Admitting Provider Surgery; Emergency Provider Student in an Organized Health Care Education/Training Program; PCP Internal Medicine; Visit Provider Hospitalist
PROC: 03CN0ZZ Extirpation of Matter from Left External Carotid Artery, Open Approach (ICD-10-PCS; CPT 35301; principal; 2023-12-04 07:30)
DX: I65.22 Occlusion and stenosis of left carotid artery (principal); K56.600 Partial intestinal obstruction, unspecified as to cause; I25.10 Atherosclerotic heart disease of native coronary artery without angina pectoris; E78.5 Hyperlipidemia, unspecified; N30.91 Cystitis, unspecified with hematuria; G47.33 Obstructive sleep apnea (adult) (pediatric); B95.2 Enterococcus as the cause of diseases classified elsewhere; I10 Essential (primary) hypertension; E11.65 Type 2 diabetes mellitus with hyperglycemia; I48.91 Unspecified atrial fibrillation; Z95.5 Presence of coronary angioplasty implant and graft; Z86.73 Personal history of transient ischemic attack (TIA), and cerebral infarction without residual deficits; Z79.02 Long term (current) use of antithrombotics/antiplatelets; Z79.82 Long term (current) use of aspirin; Z79.899 Other long term (current) drug therapy
CPT/HCPCS: 36415; 70491; 74177; 80048; 80053; 81001; 81003; 82040; 82803; 82947; 83605; 83735; 84100; 84484; 85025; 85610; 86850; 86900; 86901; 87040; 87086; 87088; 87186; 88304; 88311; 93005; 99285; A4649; C1758; C1768; J0131; J0282; J0690; J0696; J1100; J1170; J1644; J1805; J1940; J2250; J2305; J2371; J2405; J2543; J2704; J2795; J2930; J3010; J7120; Q9967

== ENCOUNTER → 2023-12-02 08:19 | Outpatient (BNV) | payer MEDICARE, OTHER, SELFPAY | PROVIDERS: Admitting Provider Surgery; Emergency Provider Student in an Organized Health Care Education/Training Program; PCP Internal Medicine; Visit Provider Internal Medicine Cardiovascular Disease | DX: R10.9 Unspecified abdominal pain (principal) | CPT/HCPCS: 93010 ==

== ENCOUNTER 2023-12-02 09:59 | Outpatient (BNV) | payer MEDICARE, OTHER, SELFPAY | END 2023-12-10 09:38 | PROVIDERS: Admitting Provider Surgery; Emergency Provider Student in an Organized Health Care Education/Training Program; PCP Internal Medicine; Visit Provider Internal Medicine Cardiovascular Disease | DX: I44.0 Atrioventricular block, first degree (principal); R00.1 Bradycardia, unspecified | CPT/HCPCS: 93010 ==

== ENCOUNTER → 2023-12-02 09:59 | Outpatient (BNV) | payer MEDICARE, OTHER, SELFPAY | PROVIDERS: Admitting Provider Surgery; Emergency Provider Student in an Organized Health Care Education/Training Program; PCP Internal Medicine; Visit Provider Surgery Vascular Surgery | DX: I65.22 Occlusion and stenosis of left carotid artery (principal) | CPT/HCPCS: 35301; 99024; 99222 ==

== ENCOUNTER → 2023-12-02 09:59 | Outpatient (BNV) | payer MEDICARE, OTHER, SELFPAY | PROVIDERS: Admitting Provider Surgery; Emergency Provider Student in an Organized Health Care Education/Training Program; PCP Internal Medicine; Visit Provider Surgery | DX: K56.609 Unspecified intestinal obstruction, unspecified as to partial versus complete obstruction (principal); I65.22 Occlusion and stenosis of left carotid artery | CPT/HCPCS: 99222; 99232 ==

== ENCOUNTER → 2023-12-02 09:59 | Outpatient (BNV) | payer MEDICARE, OTHER, SELFPAY | PROVIDERS: Admitting Provider Surgery; Emergency Provider Student in an Organized Health Care Education/Training Program; PCP Internal Medicine; Visit Provider Internal Medicine Pulmonary Disease | DX: K56.609 Unspecified intestinal obstruction, unspecified as to partial versus complete obstruction (principal); I65.22 Occlusion and stenosis of left carotid artery; I48.91 Unspecified atrial fibrillation; I25.10 Atherosclerotic heart disease of native coronary artery without angina pectoris; E11.65 Type 2 diabetes mellitus with hyperglycemia | CPT/HCPCS: 99232 ==

== ENCOUNTER → 2023-12-02 09:59 | Outpatient (BNV) | payer MEDICARE, OTHER, SELFPAY | PROVIDERS: Admitting Provider Surgery; Emergency Provider Student in an Organized Health Care Education/Training Program; PCP Internal Medicine; Visit Provider Internal Medicine | DX: Z01.810 Encounter for preprocedural cardiovascular examination (principal); Z98.890 Other specified postprocedural states; I25.10 Atherosclerotic heart disease of native coronary artery without angina pectoris; I48.91 Unspecified atrial fibrillation | CPT/HCPCS: 99223 ==

== ENCOUNTER → 2023-12-02 09:59 | Outpatient (BNV) | payer MEDICARE, OTHER, SELFPAY | PROVIDERS: Admitting Provider Surgery; Emergency Provider Student in an Organized Health Care Education/Training Program; PCP Internal Medicine; Visit Provider Physician Assistant | DX: K56.609 Unspecified intestinal obstruction, unspecified as to partial versus complete obstruction (principal); E11.59 Type 2 diabetes mellitus with other circulatory complications; I25.10 Atherosclerotic heart disease of native coronary artery without angina pectoris; I65.22 Occlusion and stenosis of left carotid artery | CPT/HCPCS: 99222; 99232; 99238; 99499; G0180 ==

== ENCOUNTER → 2023-12-02 09:59 | Outpatient (BNV) | payer MEDICARE, OTHER, SELFPAY | PROVIDERS: Admitting Provider Surgery; Emergency Provider Student in an Organized Health Care Education/Training Program; PCP Internal Medicine; Visit Provider Urology | DX: C61 Malignant neoplasm of prostate (principal); N30.91 Cystitis, unspecified with hematuria | CPT/HCPCS: 99223 ==

== ENCOUNTER 2023-12-19 15:01 | Outpatient (AMB) | payer MEDICARE, OTHER, SELFPAY ==
--- NOTE | 2023-12-19 15:14 | A.OFFVIS_ITS ---
Intake Vital Signs 12/19/23 15:18 Height 6 ft 2 in Weight 185 lb BMI 23.7 BP 108/46 L Blood Pressure Location Lt brachial Position Sitting Intake Visit Reasons: 2 week follow up left CEA Intake Note: 2 week follow up Left CEA 12/04/23. Pt states no difficulty eating, drinking or breathing but sometimes afterwards it feels like something is in his throat. Not too bothersome. Does have numbness and tightness over incision. Accompanied by: daughter/Proxy Allergies diphenhydramine [From Benadryl] Adverse Reaction (Intermediate, Verified 12/19/23 15:16) Hallucinations HPI 2 week follow up left CEA HPI Details Very pleasant 88-year-old gentleman presents for follow-up status post left carotid endarterectomy. He was actually admitted to the hospital with a bowel obstruction which did resolve. He underwent left carotid endarterectomy without incident. He did have several postoperative issues but eventually was discharged. At the current time appears to be doing great. No interval issues. Now presents for routine follow-up. PENDING SALE TO [facility] Medical History CAD (coronary artery disease) Afib Preoperative cardiovascular examination Symptomatic stenosis of left carotid artery Prostate cancer History of trigger finger Arthritis Rectal cancer Bladder neck contracture GERD (gastroesophageal reflux disease) Urinary incontinence Obstructive sleep apnea Coronary artery disease Type 2 diabetes mellitus with hyperglycemia Small bowel obstruction Erectile dysfunction Overweight (BMI 25.0-29.9) Peripheral vascular disease Hematuria Constipation BPH (benign prostatic hyperplasia) Prostate cancer Colon cancer Dysuria Hyperlipidemia, unspecified Essential hypertension Surgical History History of left-sided carotid endarterectomy History of coronary artery stent placement History of exploratory laparotomy History of carpal tunnel release History of prostate surgery (~2017) History of bladder surgery (~01/04/18) History of colectomy History of appendectomy Family History Father Pancreatic cancer Mother No problems noted. Brother Liver cancer Social History Household Members: Other Household Members Other:: Granddaughter Housing: House Are you a primary workforce investment act career manager to a significant other at home: No Do you presently have visiting nurse or other home services: No Alcohol intake: never Comment: patient refusing bed alarm/alert&appropriate/uses can w/ ambulation Patient Tobacco Use Status: Never used Tobacco Tobacco use type: Cigar e-Cigarette/Vaping Use: Never Used Second Hand Smoke Exposure: No Advance Directives Date on File: 09/29/20 service: Yes Current occupational status: retired Cognitive needs: Yes (cane) Hearing needs: Yes (hearing aide) Vision needs: Yes (glasses) Review of Systems Const All systems reviewed & are unremarkable except as noted in HPI and below Reports no additional complaints ENT Reports Normal hearing present Card Denies chest pain, Denies chest pain at rest, Denies chest pain with activity and Denies pedal edema Resp Denies cough GI Denies abdominal pain Musc Denies abnormal gait, Denies muscle cramps and Denies radiating pain into limb Skin/Breast Denies skin ulcer and Denies wounds Neuro Reports Normal hearing present and Denies abnormal gait Psych Reports no additional complaints Physical Exam Vital Signs: Last Vital Signs BP 108/46 L 12/19/23 15:18 BMI result Body Mass Index 23.7 Const General: cooperative, healthy appearing and comfortable Orientation/consciousness: oriented to person, oriented to place and oriented to time HEENT Head: Yes normal to inspection Neck Neck: Yes normal visual inspection Carotids: no bruits Chest Chest palpation & inspection: normal inspection of the chest Resp Effort & Inspection: normal respiratory effort and able to speak in complete sen tences Auscultation: clear to auscultation bilaterally, no crackles, no rales, no rhonchi and no wheezes Cardio Rate: regular rate Rhythm: regular rhythm Heart sounds: S1 normal heart sound present and S2 normal heart sound present Bruits: no carotid bruits Peripheral pulses: Peripheral pulses 2+ throughout GI Inspection: Yes normal to inspection Skin Other: Left neck incision well healed Wounds: no wounds Hair: normal Neuro General: oriented to person, oriented to place and oriented to time Cranial nerves: Yes CN's II-XII intact bilaterally and Yes Normal hearing present Cognition (Neuro): normal cognition Motor exam (neuro): 5/5 motor strength present throughout Extrem Other: venous exam: No significant superficial varicosities or spider telangiectasias, minimal edema General: No clubbing, No cyanosis and No edema Psych Appearance: grossly normal Mental Status: mental status grossly normal Speech and movement: Normal speech and movement present Assessment & Plan Assessment & Plan (1) Bilateral carotid artery stenosis: Comment: 12/04/2023 left carotid endarterectomy Code(s): I65.23 - Occlusion and stenosis of bilateral carotid arteries Plan: In short patient is doing extremely well in terms of his left carotid endarterectomy. No significant postoperative issues from a carotid standpoint. Will obtain surveillance ultrasound in approximately 3 months time. At that time will make decision regarding right carotid. Thank you for allowing us to assist in his care. If there are any questions or concerns please do not h esitate to contact us. Orders: Orders US carotid duplex BI 3 Months I65.23 - Occlusion and stenosis of bilateral carotid arteries Coding Level of Care Code Global (31761) Diagnoses Bilateral carotid artery stenosis I65.23
[2023-12-19 15:18] VITALS: BP 108/46; BMI 23.7
== END 2023-12-19 15:56 | disposition home or self-care (01) ==
LOC: HO.HVS 15:01
PROVIDERS: PCP Internal Medicine; Visit Provider Surgery Vascular Surgery
DX: I65.23 Occlusion and stenosis of bilateral carotid arteries (principal)
CPT/HCPCS: 99024

== ENCOUNTER → 2023-12-19 15:01 | Outpatient (BNVA) | payer MEDICARE, OTHER, SELFPAY | PROVIDERS: PCP Internal Medicine; Visit Provider Surgery Vascular Surgery | DX: I65.23 Occlusion and stenosis of bilateral carotid arteries (principal) | CPT/HCPCS: 99212 ==

== ENCOUNTER → 2023-12-21 10:28 | Outpatient (REF) | payer MEDICARE, OTHER, SELFPAY ==
--- NOTE | 2023-12-21 10:30 | HM_ITS ---
Conclusion: 1. Patient was monitored for total period of 2 days and 23 hours 2. Baseline was normal sinus rhythm with average heart of 66 beats per minute 3. No significant pauses noted 4. Occasional PVCs noted, all isolated 5. No patient reported events MTDD
== END ==
LOC: HO.CARD 10:28
PROVIDERS: PCP Internal Medicine; Visit Provider Internal Medicine
DX: I48.91 Unspecified atrial fibrillation (principal)
CPT/HCPCS: 93242

== ENCOUNTER → 2023-12-21 10:30 | Outpatient (BNV) | payer MEDICARE, OTHER, SELFPAY | PROVIDERS: PCP Internal Medicine; Visit Provider Internal Medicine Cardiovascular Disease | DX: R00.1 Bradycardia, unspecified (principal) | CPT/HCPCS: 93244 ==

== ENCOUNTER 2024-01-12 12:59 | Outpatient (AMB) | payer MEDICARE, OTHER, SELFPAY ==
[2024-01-12 13:02] VITALS: BP 118/60; PULSE 67; BMI 22.7
--- NOTE | 2024-01-12 13:02 | A.OFFVIS_ITS ---
Intake Vital Signs 01/12/24 13:02 Height 6 ft 2 in Weight 177 lb 0.499 oz BMI 22.7 BP 118/60 Blood Pressure Location Lt brachial Position Sitting Pulse 67 Pulse Source Monitor Intake Visit Reasons: hospital/ holter follow up Intake Note: follow up after holter and hospital pt feels ok Allergies diphenhydramine [From Benadryl] Adverse Reaction (Intermediate, Verified 12/19/23 15:16) Hallucinations Medication List - Last Reconciled 01/12/24 by Melva Swanson NP amlodipine 7.5 mg See Protocol PO BEDTIME aspirin 81 mg PO DAILY clopidogrel 75 mg PO DAILY cyanocobalamin (vitamin B-12) 1,000 mcg PO DAILY docusate sodium 100 mg PO DAILY PRN lactulose 30 mL PO DAILY PRN levofloxacin 500 mg PO DAILY 7 days metoprolol tartrate 12.5 mg PO DAILY rosuvastatin 10 mg PO DAILY HPI HPI Comments History of Present Illness Details 88-year-old male presents today for a fo llow-up after being in the hospital. He reports he has been doing well since his discharge. When in the hospital he had some post operative atrial fibrillation which lasted a few hours then he returned to sinus rhythm. He hasnt had any symptoms since discharge. He denies any chest pain, shortness of breath, dizziness, syncope, palpitations, or bleeding concerns. [facility] Medical History CAD (coronary artery disease) Afib Preoperative cardiovascular examination Symptomatic stenosis of left carotid artery Prostate cancer History of trigger finger Arthritis Rectal cancer Bladder neck contracture GERD (gastroesophageal reflux disease) Urinary incontinence Obstructive sleep apnea Coronary artery disease Type 2 diabetes mellitus with hyperglycemia Small bowel obstruction Erectile dysfunction Overweight (BMI 25.0-29.9) Peripheral vascular disease Hematuria Constipation BPH (benign prostatic hyperplasia) Prostate cancer Colon cancer Dysuria Hyperlipidemia, unspecified Essential hypertension Surgical History History of left-sided carotid endarterectomy History of coronary artery stent placement History of exploratory laparotomy History of carpal tunnel release History of prostate surgery (~2016) History of bladder surgery (~01/04/18) History of colectomy History of appendectomy Family History Father Pancreatic cancer Mother No problems noted. Brother Liver cancer Social History Household Members: Other Household Members Other:: Granddaughter Housing: House Are you a primary career services officer to a significant other at home: No Do you presently have visiting nurse or other home services: No Alcohol intake: never Comment: patient refusing bed alarm/alert&appropriate/uses can w/ ambulation Patient Tobacco Use Status: Never used Tobacco Tobacco use type: Cigar e-Cigarette/Vaping Use: Never Used Second Hand Smoke Exposure: No Advance Directives Date on File: 09/29/20 service: Yes Current occupational status: retired Cognitive needs: Yes (cane) Hearing needs: Yes (hearing aide) Vision needs: Yes (glasses) Review of Systems Const Denies weakness ENT Denies dizziness Card Denies chest pain, Denies chest pain with activity, Denies syncope, Denies rapid heart rate, Denies pedal edema, Denies edema, Denies leg edema, Denies lightheadedness, Denies palpitations, Denies dyspnea, Denies dyspnea on exertion and Denies orthopnea Resp Denies cough, Denies dyspnea and Denies dyspnea on exertion GI Denies hematochezia and Denies change in stool character Musc Denies abnormal gait, Denies muscle cramps, Denies muscle weakness, Denies numbness, Denies radiating pain into limb and Denies tingling Neuro Denies abnormal gait, Denies dizziness, Denies syncope, Denies numbness, Denies tingling and Denies weakness Endo Denies palpitations Physical Exam Vital Signs: Last Vital Signs Pulse 67 01/12/24 13:02 BP 118/60 01/12/24 13:02 BMI result Body Mass Index 22.7 Const General: healthy appearing and no acute distress Orientation/consciousness: patient oriented x3 HEENT Head: Yes normal to inspection Eyes General: appearance normal, both eyes and all related structures Neck Neck: Yes normal visual inspection Chest Chest palpation & inspection: normal inspection of the chest Resp Effort & Inspection: normal respiratory effort Auscultation: clear to auscultation bilaterally Cardio Jugular venous distension: no JVD Palpation: normal PMI Rate: bradycardic Rhythm: regular rhythm Heart sounds: S1 normal heart sound present, S2 normal heart sound present, no click, no gallops, no murmurs and no rubs GI Inspection: Yes normal to inspection Palpation (GI): Soft to palpation Skin General skin exam: no rashes or lesions noted Neuro General: patient oriented x3 Extrem General: Yes normal to inspection Psych Appearance: grossly normal Office Procedures EKG Details: EKG today. Sinus Bradycardia with 1st degree AV block. Cannot rule out inferior infarct, age undetermined. Rate 47 bpm. QRS 92ms. QTc 398ms. SC 128ms. [id number], Complete Assessment & Plan Assessment & Plan (1) Afib: Code(s): I48.91 - Unspecified atrial fibrillation (2) Coronary artery disease: Code(s): I25.10 - Atherosclerotic heart disease of [place] coronary artery without angina pectoris Qualifiers: Coronary Disease-Associated Artery/Lesion type: [place] artery [place] vs. transplanted heart: [place] heart Associated angina: without angina Qualified Code(s): I25.10 - Atherosclerotic heart disease of [place] coronary artery without angina pectoris (3) Essential hypertension: Code(s): I10 - Essential (primary) hypertension (4) Bradycardia: Code(s): R00.1 - Bradycardia, unspecified Plan Patient had post opertive atrial fibrillation and was started on amiodarone. He reports doing well with no symptoms. But he is bradycardic on examination today. Rate of 47 bpm. Denies dizziness. Will have him stop amiodarone and continue metoprolol and do a 7 day holter to reassess rate and for any more atrial fibrillation. He is on asa 81mg and clopidogrel due to stent in the RCA. Blood pressure within goal. Orders: Orders ECG 7 day holter monitor Today I48.91 - Unspecified atrial fibrillation Medications: Changed From amlodipine 7.5 mg See Protocol PO BEDTIME 90 tabs 2RF To amlodipine 7.5 mg See Protocol PO BEDTIME Discontinued amiodarone Discontinued Reason: Doctor's Order 200 mg PO DAILY Coding Level of Care Code Est Pt Level 4 (15553) Diagnoses Afib I48.91 Coronary artery disease involving [place] coronary artery of [place] heart without angina pectoris I25.10 Coronary Disease-Associated Artery/Lesion type: [place] artery [place] vs. transplanted heart: [place] heart Associated angina: without angina Essential hypertension I10 Bradycardia R00.1 CPT Codes EKG - CPT: [id number], Complete ([id number])
== END 2024-01-12 14:00 | disposition home or self-care (01) ==
PROVIDERS: PCP Internal Medicine; Visit Provider Nurse Practitioner
DX: I48.91 Unspecified atrial fibrillation (principal); I25.10 Atherosclerotic heart disease of native coronary artery without angina pectoris; I10 Essential (primary) hypertension; R00.1 Bradycardia, unspecified
CPT/HCPCS: 93010; 99214

== ENCOUNTER → 2024-01-12 12:59 | Outpatient (BNVA) | payer MEDICARE, OTHER, SELFPAY | PROVIDERS: PCP Internal Medicine; Visit Provider Nurse Practitioner | DX: I48.91 Unspecified atrial fibrillation (principal); I25.10 Atherosclerotic heart disease of native coronary artery without angina pectoris; I10 Essential (primary) hypertension; R00.1 Bradycardia, unspecified; Z79.899 Other long term (current) drug therapy | CPT/HCPCS: 93005; 99212 ==

== ENCOUNTER → 2024-01-18 14:01 | Outpatient (REF) | payer MEDICARE, OTHER, SELFPAY ==
--- NOTE | 2024-01-18 14:04 | HM_ITS ---
Conclusion: 1. Patient was monitored for total period of 3 days and 9 hours 2. Baseline was normal sinus rhythm with average heart rate of 62 beats per minute 3. No significant pauses noted 4. Frequent PVCs noted with total burden of about 2.4% 5. Patient marked 1 counter associated with PVC MTDD
== END ==
LOC: HO.CARD 14:01
PROVIDERS: PCP Internal Medicine; Visit Provider Nurse Practitioner
DX: I48.91 Unspecified atrial fibrillation (principal)
CPT/HCPCS: 93242

== ENCOUNTER → 2024-01-18 14:04 | Outpatient (BNV) | payer MEDICARE, OTHER, SELFPAY | PROVIDERS: PCP Internal Medicine; Visit Provider Internal Medicine Cardiovascular Disease | DX: I48.91 Unspecified atrial fibrillation (principal) | CPT/HCPCS: 93244 ==

== ENCOUNTER 2024-02-12 12:49 | Outpatient (AMB) | payer MEDICARE, OTHER, SELFPAY ==
[2024-02-12 12:50] VITALS: BP 116/68; PULSE 68; BMI 23.5
--- NOTE | 2024-02-12 12:50 | A.OFFPC_ITS ---
Vital Signs 02/12/24 12:50 Height 6 ft 2 in Weight 183 lb BMI 23.5 BP 116/68 Blood Pressure Location Lt brachial Position Sitting Pulse 68 Pulse Source Pulse Oximeter Intake Visit Reasons: Cholesterol/ cad Allergies diphenhydramine [From Benadryl] Adverse Reaction (Intermediate, Verified 02/12/24 12:50) Hallucinations Tobacco use date assessed: 02/12/24 Fall risk assessment: No Falls in past year Last assessed Fall Risk: 02/12/24 Dental Screening Dental Screen Date: 02/12/24 Did you have a dental visit in the last 12 months?: Yes Did you have a dental problem in the last 6 months where you did not have access to dental care?: No Was dental information given to patient?: Patient has dentist HPI Cholesterol/ cad HPI Details 88-year-old male with a history of diabe noe mellitus hypertension coronary artery disease prostate cancer GERD last seen in July 2023. Review of the notes Holter done December 2023 showing normal sinus rhythm no pauses frequent PVCs. Patient does follow-up with cardiology seen in December 2023 had postoperative atrial fibrillation started on amiodarone advised to stop amiodarone and continue with metoprolol on 81 mg of aspirin and clopidogrel due to stent RCA. Patient had a catheterization done in October 2023 showing severe proximal to mid RCA stenosis with tortuosity and calcification, distal RCA also had 70% stenosis no significant LAD or circumflex stenosis patient was advised to get PCI to right coronary artery and drug-eluting stent placed had carotid artery stenosis and had stenting done in [place] but failed.. Patient will be undergoing carotid artery surgery planning to operate with aspirin and Plavix. Patient continues to have distal RCA 70% stenosis but treated medically. Patient's admission to the hospital November [address] scan revealing partial obstruction resolved spontaneously. Patient also follows up with urology for the prostate cancer(TURP August 2012, December 2013, January 2017 laser surgery) 11/2025 L cardoti endarterectomy. [facility] Medical History CAD (coronary artery disease) Afib Preoperative cardiovascular examination Symptomatic stenosis of left carotid artery Prostate cancer History of trigger finger Arthritis Rectal cancer Bladder neck contracture GERD (gastroesophageal reflux disease) Urinary incontinence Obstructive sleep apnea Coronary artery disease Type 2 diabetes mellitus with hyperglycemia Small bowel obstruction Erectile dysfunction Overweight (BMI 25.0-29.9) Peripheral vascular disease Hematuria Constipation BPH (benign prostatic hyperplasia) Prostate cancer Colon cancer Dysuria Hyperlipidemia, unspecified Essential hypertension Surgical History History of left-sided carotid endarterectomy History of coronary artery stent placement History of exploratory laparotomy History of carpal tunnel release History of prostate surgery (~2017) History of bladder surgery (~01/04/18) History of colectomy History of appendectomy Family History Father Pancreatic cancer Mother No problems noted. Brother Liver cancer Social History Household Members: Other Household Members Other:: Granddaughter Housing: House Are you a primary day care provider to a significant other at home: No Do you presently have visiting nurse or other home services: No Alcohol intake: never Comment: patient refusing bed alarm/alert&appropriate/uses can w/ ambulation Patient Tobacco Use Status: Never used Tobacco Tobacco use type: Cigar e-Cigarette/Vaping Use: Never Used Second Hand Smoke Exposure: No Advance Directives Date on File: 09/29/20 service: Yes Current occupational status: retired Cognitive needs: Yes (cane) Hearing needs: Yes (hearing aide) Vision needs: Yes (glasses) Questionnaire PHQ-9 Over the last 2 weeks, how often have you been bothered by any of the following problems? 1. Little interest or pleasure in doing things: not at all 2. Feeling down, depressed, or hopeless: not at all 3. Trouble falling or staying asleep, or sleeping too much: not at all 4. Feeling tired or having little energy: not at all 5. Poor appetite or overeating: not at all 6. Feeling bad about yourself - or that you are a failure or have let yourself or your family down: not at all 7. Trouble concentrating on things, such as reading the newspaper or watching television: not at all 8. Moving or speaking so slowly that other people could have noticed. Or the opposite - being so fidgety or restless that you have been moving around a lot more than usual: not at all 9. Thoughts that you would be better off or of hurting yourself in some way: not at all Total score: 0 Depression Screening Interpretation: Negative Depression Screening Done: Yes Source: Developed by Drs. Chaim Escalera, Heriberto Hernández and colleagues, with an educational marycarmen from [employer]. Thrive Questionnaire Date Thrive assessed: 02/12/24 I am a: Patient What is your living situation today?: I have a steady place to live Within the past 12 months, did the food you bought not last and you didn't have the money to get more?: Never true Within the past 12 months, did you worry whether your food would run out before you got money to buy more?: Never true Do you have trouble paying for medicines?: No Do you have trouble getting transportation to medical appointments?: No Do you have trouble paying your heating and electricity bill?: No Do you have trouble taking care of your child, family member or friend?: No Do you have trouble with day-to-day activities such as bathing, preparing meals, shopping, managing finances, etc.?: No Are you currently unemployed and looking for a job?: No Are you interested in more education?: No Currently or been in a relationship where the following occur: no concerns reported THRIVE Score: 0 AUDIT C Alcohol Use Questionnaire (AUDIT-C) 1. How often do you have a drink containing alcohol?: Never Total Score: 0 NALINI-7 AMB Questionnaire NALINI-7 Date NALINI - 7 assessed: 02/12/24 Feeling nervous, anxious, or on edge: 0 = Not at all Not being able to stop or control worryin = Not at all Worrying too much about different things: 0 = Not at all Trouble relaxin = Not at all Being so restless that it is hard to sit still: 0 = Not at all Becoming easily annoyed or irritable: 0 = Not at all Feeling afraid as if something awful might happen: 0 = Not at all Total NALINI-7 score (0-4 normal; 5-9 mild; 10-14 moderate; 15-21 severe): 0 Source: Developed by Angy Mendez Kurt Kroenke and colleagues, with an educational marycarmen from [employer]. Physical exam (Primary Care) Vital Signs: Last Vital Signs Pulse 68 02/12/24 12:50 BP 116/68 02/12/24 12:50 BMI result Body Mass Index 23.5 Tobacco/Smoking Status: Tobacco use Status Tobacco use date assessed 02/12/24 02/12/24 12:58 Patient Tobacco Use Status Never used Tobacco 02/12/24 12:58 Tobacco use type Cigar 02/12/24 12:58 e-Cigarette/Vaping Use Never Used 02/12/24 12:58 PHQ-9: PHQ-9 Score PHQ-9: Total score 0 02/12/24 12:58 Depression Screening Interpretation: Negative Thrive Assessment: Date of Thrive Assessment Date Thrive assessed 02/12/24 02/12/24 12:58 Currently or been in a relationship where the following occur: no concerns reported Const General: alert; No acute distress Eyes Conjunctivae: conjunctivae normal Resp Auscultation: clear to auscultation bilaterally Cardio Rate: regular rate Rhythm: regular rhythm GI Inspection: Yes normal to inspection Extrem General: Yes normal to inspection and No edema Assessment and Plan Assessment & Plan (1) Coronary artery disease: Comment: Status post stent placement October 2023 Code(s): I25.10 - Atherosclerotic heart disease of [place] coronary artery without angina pectoris Qualifiers: Coronary Disease-Associated Artery/Lesion type: [place] artery [place] vs. transplanted heart: [place] heart Associated angina: without angina Qualified Code(s): I25.10 - Atherosclerotic heart disease of [place] coronary artery without angina pectoris Plan: Control the cholesterol, weight, blood pressure, continue with aspirin and the clopidogrel (2) GERD (gastroesophageal reflux disease): Code(s): K21.9 - Gastro-esophageal reflux disease without esophagitis Qualifiers: Esophagitis presence: without esophagitis Qualified Code(s): K21.9 - Gastro-esophageal reflux disease without esophagitis Plan: Avoid the foods that causes that usually spicy foods, tomato products, juices, coffee, soda and foods that your sensitive to. After eating do not lie down, allow 3-4 hours before in lie down. And keep the head of bed above 30 degrees to avoid the acid from going up. (3) Essential hypertension: Code(s): I10 - Essential (primary) hypertension Plan: Presently on metoprolol 12.5 mg once a day (4) CVA (cerebral vascular accident): Code(s): I63.9 - Cerebral infarction, unspecified Plan: Carotid artery stenosis on clopidogrel right now and aspirin (5) Bilateral carotid artery stenosis: Comment: 12/04/2023 left carotid endarterectomy Code(s): I65.23 - Occlusion and stenosis of bilateral carotid arteries Plan: Planned endarterectomy under vascular status post left side and scheduled to have the right side cleaned out also. (6) Carpal tunnel syndrome on both sides: Code(s): G56.03 - Carpal tunnel syndrome, bilateral upper limbs Plan: Holding off from any procedure till the carotids are fixed. Coding Level of Care Code Est Pt Level 4 (18955) Diagnoses Coronary artery disease involving [place] coronary artery of [place] heart without angina pectoris I25.10 Coronary Disease-Associated Artery/Lesion type: [place] artery [place] vs. transplanted heart: [place] heart Associated angina: without angina Gastroesophageal reflux disease without esophagitis K21.9 Esophagitis presence: without esophagitis Essential hypertension I10 CVA (cerebral vascular accident) I63.9 Bilateral carotid artery stenosis I65.23 Carpal tunnel syndrome on both sides G56.03
== END 2024-02-12 13:36 | disposition home or self-care (01) ==
PROVIDERS: PCP Internal Medicine; Visit Provider Internal Medicine
DX: I25.10 Atherosclerotic heart disease of native coronary artery without angina pectoris (principal); K21.9 Gastro-esophageal reflux disease without esophagitis; I10 Essential (primary) hypertension; Z86.73 Personal history of transient ischemic attack (TIA), and cerebral infarction without residual deficits; I65.23 Occlusion and stenosis of bilateral carotid arteries; G56.03 Carpal tunnel syndrome, bilateral upper limbs
CPT/HCPCS: 99214

== ENCOUNTER 2024-02-21 09:47 | Outpatient (AMB) | payer MEDICARE, OTHER, SELFPAY ==
--- NOTE | 2024-02-21 09:49 | MHC.OFFVIS ---
Intake Visit Reasons: 6m follow up Intake Note: Patient is Present for Follow Up Urology Medication: None Antibiotic Allergies:None Blood Thinners: Aspirin, Clopidogrel Allergies diphenhydramine [From Benadryl] Adverse Reaction (Intermediate, Verified 02/21/24 09:52) Hallucinations HPI Comments Details: Geoffrey is a pleasant male. He is a patient of Dr. Nunn. He is seen for the following urologic conditions - prostate cancer - bladder neck contraction Recent admission to hospital with small bowel obstruction. Underwent left endarterectomy with vascular surgery. Postprocedure had hemorrhagic cystitis related to intensive anticoagulation. Developed overlying urinary tract infection with Enterococcus faecalis Levaquin sensitive Using coude every 5 days for bladder neck dilatation Occasionally does have issues with does not line up catheter Will expect him to require catheterization for the foreseeable future to maintain bladder emptying and open bladder neck Six-month follow-up Prostate cancer Treatment with radiation 1999 Radiation cystitis with bladder neck contracture Catheter every 5-6 days keeping bladder neck open PSA 03/19 <0.1, 03/20 <0.1, 08/21 <0.1 Bladder neck stricture Multiple UTIs with persistent incomplete emptying Secondary to radiation for prostate cancer in 1999 Bladder neck incision 2018, 12/21 Repeat bladder neck incision September 2020 [facility] Medical History CAD (coronary artery disease) Afib Preoperative cardiovascular examination Symptomatic stenosis of left carotid artery Prostate cancer History of trigger finger Arthritis Rectal cancer Bladder neck contracture GERD (gastroesophageal reflux disease) Urinary incontinence Obstructive sleep apnea Coronary artery disease Type 2 diabetes mellitus with hyperglycemia Small bowel obstruction Erectile dysfunction Overweight (BMI 25.0-29.9) Peripheral vascular disease Hematuria Constipation BPH (benign prostatic hyperplasia) Prostate cancer Colon cancer Dysuria Hyperlipidemia, unspecified Essential hypertension Surgical History History of left-sided carotid endarterectomy History of coronary artery stent placement History of exploratory laparotomy History of carpal tunnel release History of prostate surgery (~2016) History of bladder surgery (~01/04/18) History of colectomy History of appendectomy Family History Father Pancreatic cancer Mother No problems noted. Brother Liver cancer Social History Household Members: Other Household Members Other:: Granddaughter Housing: House Are you a primary manager primary care to a significant other at home: No Do you presently have visiting nurse or other home services: No Alcohol intake: never Comment: patient refusing bed alarm/alert&appropriate/uses can w/ ambulation Patient Tobacco Use Status: Never used Tobacco Tobacco use type: Cigar e-Cigarette/Vaping Use: Never Used Second Hand Smoke Exposure: No Advance Directives Date on File: 09/29/20 service: Yes Current occupational status: retired Cognitive needs: Yes (cane) Hearing needs: Yes (hearing aide) Vision needs: Yes (glasses) Review of Systems Const Denies chills and Denies fever(s) Card Reports no additional complaints and Denies syncope Resp Denies cough GI Denies abdominal pain and Denies heartburn Reports as per HPI and Denies change in libido Neuro Denies syncope Psych Denies change in libido Endo Denies change in libido Physical Exam Const General: cooperative, healthy appearing, comfortable and no acute distress Orientation/consciousness: patient oriented x3 HEENT Face and sinus: Yes normal facial exam Mouth: moist mucous membranes Neck Neck: Yes normal visual inspection, Yes full ROM and Yes trachea midline Chest Chest palpation & inspection: normal inspection of the chest Resp Effort & Inspection: normal respiratory effort, able to speak in complete sentences and no respiratory distress GI Inspection: Yes normal to inspection Back/Spine/Pelvis Cervical Spine: normal cervical lordosis Thoracic/Lumbar Spine: thoracic and lumbar spine normal to inspection Skin General skin exam: no rashes or lesions noted Neuro General: patient oriented x3, gait normal, tone normal and moves all extremities Extrem General: Yes normal to inspection and Yes capillary refill normal Results AMB Urinalysis, Automated UA Leukoctes 0 Ellie/uL Last Edit by JOSTIN Martines on 02/21/24 10:00 UA Nitrite Negative Last Edit by JOSTIN Martines on 02/21/24 10:00 UA Urobilinogen 0.2 mg/dL Last Edit by JOSTIN Martines on 02/21/24 10:00 UA Protein 15 mg/dL Last Edit by JOSTIN Martines on 02/21/24 10:00 UA pH 5.5 Last Edit by Tiffany Goff RMA on 02/21/24 10:00 UA Blood 0 Chase/uL Last Edit by Tiffanysung Goff RMA on 02/21/24 10:00 UA Specific Western 1.020 Last Edit by Tiffanysung Goff, RMA on 02/21/24 10:00 UA Ketone Negative Last Edit by Tiffanysung Goff, RMA on 02/21/24 10:00 UA Bilirubin 0 mg/dL Last Edit by Tiffany Goff RMA on 02/21/24 10:00 UA Glucose 0 mg/dL Last Edit by Tiffany Goff, RMA on 02/21/24 10:00 Results Reviewed Results Reviewed: Laboratory Last Values Urine pH (Auto) 5.5 02/21/24 09:52 Specific Western (Auto) 1.020 02/21/24 09:52 Urine Protein (Auto) 15 mg/dL 02/21/24 09:52 Glucose (UA)(Auto) 0 mg/dL 02/21/24 09:52 Urine Ketones (Auto) Negative 02/21/24 09:52 Urine Blood (Auto) 0 Chase/uL 02/21/24 09:52 Urine Nitrite (Auto) Negative 02/21/24 09:52 Urine Bilirubin (Auto) 0 mg/dL 02/21/24 09:52 Urine Urobilinogen (Auto) 0.2 mg/dL 02/21/24 09:52 Leukocyte Esterase (Auto) 0 Ellie/uL 02/21/24 09:52 Assessment & Plan Assessment & Plan (1) Bladder neck stricture: Comment: status post incision bladder neck contracture with laser, cystoscopy Dr. Hein September 2020 Code(s): N32.0 - Bladder-neck obstruction Category: Medical (2) Chronic UTI (urinary tract infection): Code(s): N39.0 - Urinary tract infection, site not specified Category: Medical Plan Six-month follow Orders: Orders AMB Urinalysis Automated Today Z13.9 - Encounter for screening, unspecified Patient Instructions: Imaging studies, laboratory and physical exam results were discussed and reviewed in detail. No major barriers to patient understanding were identified. An opportunity to ask questions regarding the treatment plan was provided. All questions were answered. The patient expressed understanding and agreement with the above treatment plan. The patient is aware they should contact our office by phone for worsening of their current condition or the appearance of new urologic symptoms. Compliance is encouraged with any medications and followup testing that is ordered. It is a privilege to participate in the urologic care of your patient. If you have any questions or concerns regarding treatment for the above conditions, or other urologic issues, please do not hesitate to contact me. The office telephone contact is [phone]. This note is constructed using voice recognition software. While every effort has been made to ensure accuracy electronic service technician errors may have been included. Yours sincerely, Dr Jerman Hein MD, [facility] - Urology Providers of Expert, Compassionate Care for the Genitourinary System Coding Level of Care Code Est Pt Level 3 (98338) Diagnoses Bladder neck stricture N32.0 Chronic UTI (urinary tract infection) N39.0
== END 2024-02-21 10:25 | disposition home or self-care (01) ==
PROVIDERS: PCP Internal Medicine; Visit Provider Urology
DX: N32.0 Bladder-neck obstruction (principal); N39.0 Urinary tract infection, site not specified; Z13.9 Encounter for screening, unspecified
CPT/HCPCS: 99213

== ENCOUNTER → 2024-02-21 09:47 | Outpatient (BNVA) | payer MEDICARE, OTHER, SELFPAY | PROVIDERS: PCP Internal Medicine; Visit Provider Urology | DX: N32.0 Bladder-neck obstruction (principal); N39.0 Urinary tract infection, site not specified | CPT/HCPCS: 81003; 99212 ==

== ENCOUNTER 2024-03-04 12:50 | Outpatient (REF) | payer MEDICARE, OTHER, SELFPAY ==
--- NOTE | ~2024-03-04 | US_ITS ---
EXAMINATION: US EXTRACRANIAL CAROTID DUPLEX, BILATERAL CLINICAL INFORMATION: Occlusion and stenosis of bilateral carotid arteries COMPARISON: None available. TECHNIQUE: Real-time ultrasound and Doppler techniques (integrating B-mode 2-D vascular images, Doppler spectral analysis and color-flow Doppler imaging) were utilized to interrogate the extracranial carotid arteries, the vertebral arteries and proximal subclavian arteries bilaterally. The degree of stenosis is determined by criteria similar to NASCET. FINDINGS: Right Side: 1. There is severe atherosclerotic plaque seen in the bifurcation/proximal ICA region. 2. The common carotid artery PSV proximally is 73 cm/s and distally 81 cm/s. 3. The proximal internal carotid artery velocities are 497 cm/s systolic and 206 cm/s diastolic. 4. The proximal external carotid artery PSV is 129 cm/s. 5. The vertebral artery shows bidirectional flow. 6. The subclavian artery is stenotic. Left Side: 1. There is mild atherosclerotic plaque seen in the bifurcation/proximal ICA region. 2. The common carotid artery PSV proximally is 106 cm/s and distally 114 cm/s. 3. The proximal internal carotid artery velocities are 243 cm/s systolic and 61 cm/s diastolic. 4. The proximal external carotid artery PSV is 118 cm/s. 5. The vertebral artery shows antegrade flow. 6. The subclavian artery is stenotic. US/US carotid duplex BI IMPRESSION: 1. RIGHT: Severe, hemodynamically significant stenosis of the proximal right internal carotid artery corresponding to an 80-99% stenosis by velocity criteria. 2. LEFT: Moderate, hemodynamically significant stenosis of the proximal left internal carotid artery corresponding to a 50-79% stenosis by velocity criteria.
== END 2024-03-04 12:51 | disposition home or self-care (01) ==
LOC: HO.US 12:50
PROVIDERS: PCP Internal Medicine; Visit Provider Surgery Vascular Surgery
DX: I65.23 Occlusion and stenosis of bilateral carotid arteries (principal)
CPT/HCPCS: 93880

== ENCOUNTER 2024-03-06 12:37 | Outpatient (AMB) | payer MEDICARE, OTHER, SELFPAY ==
[2024-03-06 12:40] VITALS: BP 130/60; PULSE 57; BMI 23.9
--- NOTE | 2024-03-06 12:40 | MHC.OFFVIS ---
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 Few months back, he was in [place] when he had stroke-like symptoms. Then he returned back to [place] and saw vascular surgery. He underwent cardiac catheterization as part of preoperative workup. Detected to have severe right coronary artery stenosis for which underwent PCI. Subsequently, had carotid surgery as well and that was uneventful. Overall, doing good. No cardiac symptoms. [facility] Medical History CAD (coronary artery disease) Afib Preoperative cardiovascular examination Symptomatic stenosis of left carotid artery Prostate cancer History of trigger finger Arthritis Rectal cancer Bladder neck contracture GERD (gastroesophageal reflux disease) Urinary incontinence Obstructive sleep apnea Coronary artery disease Type 2 diabetes mellitus with hyperglycemia Small bowel obstruction Erectile dysfunction Overweight (BMI 25.0-29.9) Peripheral vascular disease Hematuria Constipation BPH (benign prostatic hyperplasia) Prostate cancer Colon cancer Dysuria Hyperlipidemia, unspecified Essential hypertension Surgical History History of left-sided carotid endarterectomy History of coronary artery stent placement History of exploratory laparotomy History of carpal tunnel release History of prostate surgery (~2016) History of bladder surgery (~01/04/18) History of colectomy History of appendectomy Family History Father Pancreatic cancer Mother No problems noted. Brother Liver cancer Social History Household Members: Other Household Members Other:: Granddaughter Housing: House Are you a primary career professional to a significant other at home: No Do you presently have visiting nurse or other home services: No Alcohol intake: never Comment: patient refusing bed alarm/alert&appropriate/uses can w/ ambulation Patient Tobacco Use Status: Never used Tobacco Tobacco use type: Cigar e-Cigarette/Vaping Use: Never Used Second Hand Smoke Exposure: No Advance Directives Date on File: 09/29/20 service: Yes Current occupational status: retired Cognitive needs: Yes (cane) Hearing needs: Yes (hearing aide) Vision needs: Yes (glasses) Review of Systems Const Denies chills, Denies fatigue, Denies fever(s), Denies frequent falls, Denies weakness, Denies weight gain and Denies weight loss ENT Denies dizziness Card Denies chest pain, Denies leg edema, Denies lightheadedness, Denies palpitations, Denies dyspnea and Denies dyspnea on exertion Resp Denies cough, Denies dyspnea and Denies dyspnea on exertion GI Denies hematochezia Musc Denies abnormal gait, Denies muscle weakness, Denies numbness, Denies radiating pain into limb and Denies tingling Neuro Denies abnormal gait, Denies dizziness, Denies frequent falls, Denies numbness, Denies tingling and Denies weakness Endo Denies fatigue and Denies palpitations Physical Exam Vital Signs: Last Vital Signs Pulse 57 03/06/24 12:40 BP 130/60 03/06/24 12:40 BMI result Body Mass Index 23.9 Const General: comfortable and no acute distress Orientation/consciousness: patient oriented x3 HEENT Other: Unremarkable Head: Yes normal to inspection Neck Neck: Yes normal visual inspection Chest Chest palpation & inspection: normal inspection of the chest Resp Auscultation: clear to auscultation bilaterally Cardio Palpation: normal PMI Heart sounds: S1 normal heart sound present, S2 normal heart sound present, no gallops, no murmurs and no rubs GI Palpation (GI): Soft to palpation Back/Spine/Pelvis Other: unremarkable Skin General skin exam: no rashes or lesions noted Neuro General: patient oriented x3 Extrem General: Yes normal to inspection Psych Mental Status: mental status grossly normal Office Procedures EKG Details: EKG with sinus bradycardia at 57/Min; no significant ST-T changes and otherwise unremarkable[place]. [address]-[id number], Complete Assessment & Plan Assessment & Plan (1) Atherosclerotic cardiovascular disease: Code(s): I25.10 - Atherosclerotic heart disease of [place] coronary artery without angina pectoris Category: Medical Plan Cardiac studies reviewed. Echocardiogram from 2020 with LVEF of 60-65% and otherwise unremarkable. Another study from [place] during recent hospitalization showed LVEF 50-55%; normal right ventricular systolic function and no significant valvular abnormalities. Stress MIBI from 2014 with some inferobasal and apical ischemia. Repeat study from 2016 with similar findings. Cardiac catheterization 11/22 with severe stenosis in the right coronary artery status post PCI. First diagonal with 50-60% stenosis. Otherwise, no significant disease. Overall, stable cardiac status. Continue long-term aspirin. Plavix for the next 3-6 months or so. We can possibly short the duration considering his age and the fact that he does bruise easily. Also remains on beta-blockers and statins. Last LDL was well within normal limits. Lipids may be followed up through his own PCP. Blood pressure stable. Follow-up in 6 months. Medications: New clopidogrel 75 mg PO DAILY 90 tabs 3RF Coding Level of Care Code Est Pt Level 4 (23545) Diagnoses Atherosclerotic cardiovascular disease I25.10 CPT Codes EKG - CPT: 42412-[id number], Complete ([id number])
== END 2024-03-06 13:12 | disposition home or self-care (01) ==
PROVIDERS: PCP Internal Medicine; Visit Provider Internal Medicine
DX: I25.10 Atherosclerotic heart disease of native coronary artery without angina pectoris (principal)
CPT/HCPCS: 93010; 99214

== ENCOUNTER → 2024-03-06 12:37 | Outpatient (BNVA) | payer MEDICARE, OTHER, SELFPAY | PROVIDERS: PCP Internal Medicine; Visit Provider Internal Medicine | DX: I25.10 Atherosclerotic heart disease of native coronary artery without angina pectoris (principal) | CPT/HCPCS: 93005; 99212 ==

== ENCOUNTER 2024-03-13 21:02 | Inpatient (IN) | payer MEDICARE, OTHER, SELFPAY ==
--- NOTE | ~2024-03-13 | CT_ITS ---
EXAMINATION: CT HEAD WITHOUT CONTRAST (STROKE PROTOCOL) CLINICAL INFORMATION: Stroke protocol. Left-sided weakness COMPARISON: None available. TECHNIQUE: Contiguous axial imaging was performed from the skull base to vertex without intravenous administration of contrast. This CT examination was performed using dose optimization techniques as appropriate, variously including the following: *Automated exposure control *Adjustment of mA and/or kV according to patient size (this includes techniques or standardized protocols for targeted exams where dose is matched to indication/reason for exam; i.e. extremities or head) *Use of iterative reconstruction technique DLP: 801 mGy-cm FINDINGS: Hypodense focus involving the right frontal lobe/precentral gyrus suggesting subacute versus acute infarct. Correlation with symptomatology. Chronic white matter small vessel ischemic changes. Cerebral atrophy with commensurate ventricular changes. There is no evidence of acute intracranial hemorrhage. No abnormal mass effect or midline shift is seen. [place] to white matter differentiation is well preserved. No extra-axial fluid collections are identified. The ventricles are normal in size. The osseous structures and soft tissues are normal. Slight mucoperiosteal thickening of the right frontal and ethmoid sinuses. The mastoid air cells and visualized portions of the paranasal sinuses are well aerated. CT/CT head for stroke IMPRESSION: 1. Hypodense focus involving the right frontal lobe/precentral gyrus suggesting subacute versus acute infarct. Correlation with symptomatology. 2. Chronic white matter small vessel ischemic changes. This critical result was discussed with DR PAGE by telephone on 03/13/2024 9:25 PM and it was ascertained that the content and urgency of the report was understood at the time of direct communication.
--- NOTE | ~2024-03-13 | CT_ITS ---
EXAMINATION: CTA OF THE HEAD AND NECK CLINICAL INFORMATION: Left-sided weakness. COMPARISON: CT imaging from 03/13/2024. CT angiogram neck from 11/21/2023. TECHNIQUE: Test bolus sequences followed by intravenous administration 85 mL of Omnipaque 350. Helical imaging was performed in the axial plane from the mediastinum to the skull vertex. Delayed postcontrast imaging of the head was also performed. The data was processed at the radiographic technologist's workstation for generation of MIP sequences. Three-dimensional volume rendered reformatted images were also generated at an offline 3-D workstation. Stenoses are assessed in accordance with NASCET criteria unless otherwise indicated. This CT examination was performed using dose optimization techniques as appropriate, variously including the following: *Automated exposure control *Adjustment of mA and/or kV according to patient size (this includes techniques or standardized protocols for targeted exams where dose is matched to indication/reason for exam; i.e. extremities or head) *Use of iterative reconstruction technique DLP: 1602 mGy-cm. FINDINGS: CTA neck: The imaged aortic arch and origins of the great vessels are patent with mild atherosclerotic wall calcifications. Mild atheromatous disease visible in the common carotid arteries, more so on the right side. Previous significant atheromatous disease at the left carotid bifurcation and origin of the left internal carotid artery is no longer seen, presumed status post carotid endarterectomy. The left internal carotid artery opacifies normally with very mild luminal irregularities. The vertebral arteries opacify normally and are of normal caliber. No significant change at the right carotid bifurcation and origin of the right internal carotid artery as compared to the CT angiogram study from 11/21/2023. Severe wall calcifications present in the proximal right ICA with a high-grade stenosis of approximately 90%. Aside from post stenotic dilatation, the remainder of the right internal carotid artery is of normal caliber. The soft tissues of the neck are unremarkable. There are significant degenerative changes of the sternoclavicular articulations with joint effusions, more so on the right side. Moderate to severe multilevel cervical spondylosis noted with hypertrophic facet arthropathy. Multiple calcified pleural plaques are again visible. Emphysematous changes present within the lungs. A 1.2 cm irregular groundglass nodular density at the right lung apex is stable. CTA head: The intradural vertebral arteries and basilar artery are normal. The posterior cerebral arteries are widely patent. The internal carotid arteries are patent without significant stenosis, demonstrating [id number] wall calcifications. The [place] and MCA vascular complexes bilaterally are normal. There is no abnormal parenchymal or leptomeningeal enhancement. There is a chronic-appearing infarct with encephalomalacia in the precentral gyrus of the high right frontal lobe. Moderate diffuse brain parenchymal volume loss evident with commensurate ex vacuo prominence of the ventricles. Focal mucosal opacification of the right anterior ethmoid air cells visible. Small retention cyst visible in the dependent right maxillary sinus. Mild right frontal sinus mucosal thickening noted. There are chronic-appearing bilateral nasal bone fractures. The venous sinuses opacify normally. CT/CT angio head neck stroke IMPRESSION: Stable severe atheromatous disease at the origin of the right internal carotid artery with an approximate 90% stenosis. Imaging findings of a presumed prior left-sided carotid endarterectomy with a widely patent left carotid bifurcation and cervical left internal carotid artery. No significant stenosis in the intracranial vasculature at the level of the [place], otherwise stable compared to the previous exam. Low-density change in the precentral gyrus of the high right frontal lobe is chronic in appearance from a prior infarct. Approximate 1.2 cm groundglass nodule at the right lung apex is stable. According to the UPDATED 2017 Fleischner Society recommendations, the advised follow-up imaging for CT at 6-12 months to confirm persistence, then CT every 2 years until 5 years documented stability.
--- NOTE | 2024-03-13 21:05 | ECG_ITS ---
Test Reason : STROKE Blood Pressure : / mmHG Vent. Rate : 071 BPM Atrial Rate : 071 BPM P-R Int : 288 ms QRS Dur : 078 ms QT Int : 422 ms P-R-T Axes : 000 -15 -12 degrees QTc Int : 458 ms Sinus rhythm with 1st degree A-V block Inferior infarct , age undetermined Abnormal ECG When compared with ECG of 10-DEC-2023 09:42, Vent. rate has increased BY 24 BPM Inferior infarct is now Present Referred By: Dante Peña Electronically Signed By:FELIX GARCIA MD
[2024-03-13 21:12] VITALS: BP 140/100; PULSE 60; O2SAT 99; BMI 28.1
--- NOTE | 2024-03-13 21:12 | ED.NEUROSD ---
HPI - Neuro Symptoms/Deficit General Chief Complaint: Stroke Stated Complaint: left sided weakness,lkwt 2014 Time Seen by Provider: 03/13/24 21:05 Source: patient and EMS Mode of arrival: EMS Limitations: no limitations History of Present Illness HPI Narrative: 88 year old male with PMH significant for coronary artery disease, status post cardiac stent placement , carotid artery disease, L carotid endarterectomy 12/23, colorectal cancer status post resection, hx of small bowel obstructions, diet-controlled diabetes mellitus, prostate cancer, essential hypertensione with history of TIA comes here as he feels both lower extremity weak and upper extremity weak and foggy feeling in his brain similar to that when he had previous TIAs in 10/2023 when he was in [place] patient had left carotid endarterectomy done in 12/23 and plan to have right one . patient is on aspirin and Plavix symptoms started about 20:15 EMS noticed slight left arm weakness at my time of triage noticed no appreciable weakness of either upper extremities, possible mild weakness left lower leg, normal speech no facial droop Related Data Home Medications ?Medication ?Instructions ?Recorded ?Confirmed aspirin 81 mg tablet,delayed 81 mg PO DAILY 12/01/22 03/06/24 release cyanocobalamin (vitamin B-12) 1,000 mcg PO DAILY 12/01/22 03/06/24 1,000 mcg tablet docusate sodium 100 mg capsule 100 mg PO DAILY PRN Constipation 01/12/24 01/12/24 Previous Rx's ?Medication ?Instructions ?Recorded lactulose 10 gram/15 mL oral 30 ml PO DAILY PRN for 10/17/23 solution constipation #946 mL rosuvastatin 10 mg tablet 10 mg PO DAILY #90 tabs 01/08/24 clopidogrel 75 mg tablet 75 mg PO DAILY #90 tabs 03/06/24 amlodipine 2.5 mg tablet 7.5 mg (3 x 2.5 mg) PO DAILY #90 03/11/24 tabs metoprolol tartrate 25 mg tablet 12.5 mg (1/2 x 25 mg) PO DAILY #90 03/11/24 tabs Allergies Allergy/AdvReac Type Severity Reaction Status Date / Time diphenhydramine AdvReac Intermediate Hallucinati Verified 03/13/24 21:15 [From Tereza] ons Review of Systems Review of Systems: Yes all other systems are reviewed and are negative [facility] Past Medical History Medical History CAD (coronary artery disease) Afib Preoperative cardiovascular examination Symptomatic stenosis of left carotid artery Prostate cancer History of trigger finger Arthritis Rectal cancer Bladder neck contracture GERD (gastroesophageal reflux disease) Urinary incontinence Obstructive sleep apnea Coronary artery disease Type 2 diabetes mellitus with hyperglycemia Small bowel obstruction Erectile dysfunction Overweight (BMI 25.0-29.9) Peripheral vascular disease Hematuria Constipation BPH (benign prostatic hyperplasia) Prostate cancer Colon cancer Dysuria Hyperlipidemia, unspecified Essential hypertension Surgical History History of left-sided carotid endarterectomy History of coronary artery stent placement History of exploratory laparotomy History of carpal tunnel release History of prostate surgery (~2016) History of bladder surgery (~01/04/18) History of colectomy History of appendectomy Family History Family History Father Pancreatic cancer Mother No problems noted. Brother Liver cancer Social History Social History Household Members: Other Household Members Other:: Granddaughter Housing: House Are you a primary progressive care manager to a significant other at home: No Do you presently have visiting nurse or other home services: No Alcohol intake: never Comment: patient refusing bed alarm/alert&appropriate/uses can w/ ambulation Patient Tobacco Use Status: Never used Tobacco Tobacco use type: Cigar Smoked in Last 30 Days: No e-Cigarette/Vaping Use: Never Used Second Hand Smoke Exposure: No Use of substances other than those prescribed or required for medical reasons: No Advance Directives: Yes Advance Directives on File: Yes Advance Directives Date on File: 09/29/20 Do you have a plan to hurt others: No Plan service: Yes Current occupational status: retired Cognitive needs: Yes (cane) Hearing needs: Yes (hearing aide) Vision needs: Yes (glasses) Physical Exam Vital Signs: Vital Signs: Last Vital Signs Temp 97.7 F 03/14/24 01:25 Pulse 73 03/14/24 01:25 Resp 22 H 03/14/24 01:25 BP 126/61 03/14/24 01:25 Pulse Ox 73 L 03/14/24 01:25 O2 Del Method Room Air 03/14/24 01:25 BMI result Body Mass Index 28.1 Appearance: Alert. Oriented X3. No acute distress. Eyes: PERRLA, No Nystagmus ENT: Pharynx normal. Oral Mucosa moist Neck: Normal inspection. Neck supple. CVS: Normal heart rate and rhythm. Pulses normal. Respiratory: No respiratory distress. Equal air entry bilateral, no wheezing/rales/rhonchi Abdomen: Soft and nontender. Bowel sounds are present, no mass palpable, no CVA tenderness Skin: Skin warm and dry. Normal skin color. Normal skin turgor. Extremities: No lower extremity edema. No calf tenderness Neuro: Oriented X 3. Left-sided leg weakness4/5. No sensory deficit.No cerebellar signs , cranial nerves II-XII intact Medications Administered Discontinued Medications Generic Name Dose Route Start Last Admin Trade Name Freq PRN Reason Stop Dose Admin Iohexol 100 ml 03/13/24 21:15 03/13/24 21:16 Iohexol 350 Mg/Ml 100 Ml Infus..Btl IV 03/13/24 21:16 75 ml ONCE ONE Administration Medical Decision Making Medical Decision Making [facility] Narrative: Patient with vague feeling after re-evaluation patient said that patient had both upper extremities both lower extremity vague feeling as if he is in air, NIHSS score was 1. CT head showed subacute/ hypodense area in right frontal lobe precentral gyrus CTA negative for LVO . . Case discussed with Dr. Kelly neurologist advised plan for MRI in a.m. no need for TNK patient already took his Plavix and aspirin earlier Differential Diagnosis Differential Diagnoses: The differential diagnosis associated with the presentation includes CVA/TIA/functional weakness Admission/Observation Consideration of admission/observation: Escalation of care including admission/observation considered Consult Healthcare Provider Management of the patient was discussed with: Hospitalist Lab Data [facility] Lab Attestation statement: I reviewed the patient's lab results. 03/13/24 21:40 03/13/24 21:40 Labs: Lab Results 03/13/24 03/13/24 Range/Units 21:05 21:40 WBC 7.0 (4.8-10.8) X10*3/uL RBC 4.32 L (4.60-5.80) X10*6/uL Hgb 12.5 L (14.0-18.0) g/dl Hct 36.3 L (42.0-52.0) % MCV 84.0 (80.0-98.0) fL MCH 28.9 (27.0-33.0) pg MCHC 34.4 (31.0-36.0) g/dl RDW 12.8 (11.0-16.0) % Plt Count 246 (160-400) X10*3/uL MPV 9.4 (9.4-12.4) fL Immature Gran % (Auto) 0.6 H (0.0-0.4) % Neut % (Auto) 59.7 (45-73) % Lymph % (Auto) 26.8 (20-40) % [place] % (Auto) 8.4 (2-11) % Eos % (Auto) 4.1 H (0-4) % Baso % (Auto) 0.4 (0-2) % Lymph # (Auto) 1.9 (1.2-4.9) X10*3/uL [place] # (Auto) 0.6 (0.1-1.2) X10*3/uL Eos # (Auto) 0.3 (0.0-0.4) X10*3/uL Baso # (Auto) 0.0 (0.0-0.2) X10*3/uL Abs Immat Gran (auto) 0.04 H (0.00-0.03) X10*3/uL Absolute Neuts (auto) 4.2 (2.0-8.3) x10*3/uL Absolute Nucleated RBC 0.000 (0.0-0.012) X10*3/uL Nucleated RBC % (auto) 0.0 (0.0-0.2) /100WBC PT 12.3 (11.1-13.3) SEC INR 1.0 (0.9-1.1) APTT 32.7 (26.0-36.8) SEC Sodium 140 (135-145) mmol/L Potassium 3.7 (3.3-5.1) mmol/L Chloride 110 H (96-108) mmol/L Carbon Dioxide 20 L (22-29) mmol/L Anion Gap 14 (12-20) BUN 14 (9-16) mg/dL Creatinine 0.82 (0.5-1.4) mg/dL Estim Creat Clear Calc 67.7 Estimated GFR > 60 POC Glucose 126 H (60-115) mg/dL Random Glucose 137 H (60-115) mg/dL Calcium 8.7 (8.4-10.2) mg/dL Total Creatine Kinase 53 (38-174) U/L Troponin I High Sens 8.2 D (<3.5-35.0) ng/L Hold Yellow Top See Note Independent Interpretation I performed an independent interpretation of an: EKG and CT Scan Radiology Impression Discussion of test interpretation with radiology: I have reviewed the radiologist's reading. Radiologist Impression: CT/CT angio head neck stroke IMPRESSION: Stable severe atheromatous disease at the origin of the right internal carotid artery with an approximate 90% stenosis. Imaging findings of a presumed prior left-sided carotid endarterectomy with a widely patent left carotid bifurcation and cervical left internal carotid artery. No significant stenosis in the intracranial vasculature at the level of the [place], otherwise stable compared to the previous exam. Low-density change in the precentral gyrus of the high right frontal lobe is chronic in appearance from a prior infarct. Approximate 1.2 cm groundglass nodule at the right lung apex is stable. According to the UPDATED 2017 Fleischner Society recommendations, the advised follow-up imaging for CT at 6-12 months to confirm persistence, then CT every 2 years until [address]/CT head for stroke IMPRESSION: 1. Hypodense focus involving the right frontal lobe/precentral gyrus suggesting subacute versus acute infarct. Correlation with symptomatology. 2. Chronic white matter small vessel ischemic changes. This critical result was discussed with DR PAGE by telephone on 03/13/2024 9:25 PM and it was ascertained that the content and urgency of the report was understood at the time of direct communication. External Record Review External record reviewed: Inpatient record, Office record and Outpatient record NIH Stroke Scale Internal: Initial- Upon Arrival Time: 21:02 Level of Consciousness: Alert Level of Consciousness Questions: Answers both questions correctly Level of Consciousness Commands: Performs both tasks correctly Best Gaze: Normal Visual: No visual loss Facial Palsy: Normal Motor Arm (Right): No drift Motor Arm (Left): No drift Motor Leg (Right): No drift Motor Leg (Left): Drift Limb Ataxia: Absent Sensory: Normal Best Language: No aphasia Dysarthia: Normal Extinction and Inattention: No abnormality Score: 1 Critical Care Time Critical Care Time Critical Care Time: Yes Total Critical Care Time: 35 Attestation: The patient was critically ill with a high probability of imminent or life threatening deterioration. I spent greater than ?40??minutes of discontinuous time evaluating the patient,delivering critical care at the bedside, discussing and evaluating pertinent data with consultants. Critical care time does not include time spent performing separately billable procedures or teaching. Total time spent performing critical care was ?35??minutes. Discharge Plan Discharge Clinical Impression: Transient cerebral ischemia Patient Disposition: Admitted As Inpatient
[2024-03-13 21:15] VITALS: BP 150/77; PULSE 74; RESP 18; TEMP 36.5; O2SAT 98
[2024-03-13] MEDS: iohexoL 350 MG/ML 100 ML INFUS..BTL IV (21:16)
[2024-03-13 21:23] LABS: Glucose, Whole Blood 126 mg/dL (60-115)
[2024-03-13 21:44] LABS: MANUAL DIFF FLAG NO
[2024-03-13 21:46] LABS: Basophils Percent Auto 0.4 % (0-2); Eosinophils Absolute Auto 0.3 X10*3/uL (0.0-0.4); Eosinophils Percent Auto 4.1 % (0-4); Hematocrit 36.3 % (42.0-52.0); Hemoglobin 12.5 g/dl (14.0-18.0); Imm Gran Abs Auto 0.04 X10*3/uL (0.00-0.03); Imm Gran Pct Auto 0.6 % (0.0-0.4); Lymphocytes Absolute Auto 1.9 X10*3/uL (1.2-4.9); Lymphocytes Percent Auto 26.8 % (20-40); Mean Corpuscular HGB Conc 34.4 g/dl (31.0-36.0); Mean Corpuscular Hemoglobin 28.9 pg (27.0-33.0); Mean Platelet Volume 9.4 fL (9.4-12.4); Monocytes Absolute Auto 0.6 X10*3/uL (0.1-1.2); Monocytes Percent Auto 8.4 % (2-11); Neutrophils Absolute Auto 4.2 x10*3/uL (2.0-8.3); Neutrophils Percent Auto 59.7 % (45-73); Platelet Count 246 X10*3/uL (160-400); Red Blood Count 4.32 X10*6/uL (4.60-5.80); Red Cell Distribution Width 12.8 % (11.0-16.0)
[2024-03-13 21:58] LABS: Prothrombin Time 12.3 SEC (11.1-13.3)
[2024-03-13 21:59] LABS: Anion Gap 14 (12-20); Blood Urea Nitrogen 14 mg/dL (9-16); Calcium 8.7 mg/dL (8.4-10.2); Carbon Dioxide 20 mmol/L (22-29); Chloride 110 mmol/L (96-108); Creatinine Clr Calc Pharmacy 67.7; Estimated Glomerular Filt Rate > 60; Glucose Random 137 mg/dL (60-115); Potassium 3.7 mmol/L (3.3-5.1); Sodium 140 mmol/L (135-145)
[2024-03-13 22:00] LABS: Partial Thromboplastin Time 32.7 SEC (26.0-36.8)
[2024-03-13 22:02] VITALS: PULSE 75; RESP 14; O2SAT 95
[2024-03-13 22:06] LABS: Troponin-I High Sensitivity 8.2 ng/L (<3.5-35.0)
[2024-03-13 22:37] LABS: Stroke Lab Use COMPLETE
[2024-03-14] VITALS (8 sets, daily range): BP systolic 126–179; BP diastolic 61–85; PULSE 69–76; RESP 15–22; TEMP 36.4–37.1; O2SAT 95–99
--- NOTE | 2024-03-14 | EEG_ITS ---
This is a 16-channel EEG with an EKG lead. The patient is reported restless during the tracing. Background EEG rhythm is about 10 hertz, 5 to 20 microvolt posteriorly, lower amplitude fast anteriorly. The patient transitioned in and out of drowsiness. No sharp wave spikes or paroxysmal tendency noted. Photic stimulation does not produce any significant abnormality. Hyperventilation is not performed. Cardiac lead does not reveal any significant abnormality. IMPRESSION: No significant abnormality noted on this EEG. MD RIVAS Sharma/BREANA / [id number]
--- OUTSIDE RECORDS SUMMARY | 2024-03-14 01:11 | XMS_ITS | Continuity of Care Document ---
Author Organization [facility] ter Address [address] [place] [id number]- Care Team Providers Care Instructional Paraprofessional Name Role Phone Po Pro MÉNDEZ Primary Care Physician Encounter [place] Date(s): 11/22/23 - 11/22/[address] [address] Discharge Disposition: A-D/C Home Attending Physician: Jairo Andrew MD Admitting Physician: Jairo Andrew MD Referring Physician: Jairo Andrew MD Allergies, Adverse Reactions, Alerts Substance Reaction Severity Status Benadryl Active Medications aspirin 81 mg oral delayed release tablet 81 mg, 1, tablet, By Mouth, Daily, Refills 0, Maintenance, 11/22/23 7:32:00 EST, Partial fill upon patient request if the prescription is for a schedule II opioid drug. Start Date: 11/22/23 Status: Ordered Clopidogrel By Mouth, 0 Refills, Maintenance, 11/22/23 7:50:00 EST, Partial fill upon patient request if the prescription is for a schedule II opioid drug. Start Date: 11/22/23 Status: Ordered clopidogrel 75 mg oral tablet 75 mg, 1, tablet, By Mouth, Daily, # 90 tablet, Refills 0, Tot. Refills 0, Maintenance, 11/22/23 11:27:00 EST, Route to Pharmacy Electronically, [facility], Partial fill upon patient request if the prescription is for a schedule II opioi... Start Date: 11/22/23 Stop Date: 02/20/24 Status: Ordered metoprolol 25 mg oral tablet 25 mg, 1, tablet, By Mouth, 2 times a day, Refills 0, Maintenance, 11/22/23 7:49:00 EST, Partial fill upon patient request if the prescription is for a schedule II opioid drug. Start Date: 11/22/23 Status: Ordered Rosuvastatin By Mouth, Daily, 0 Refills, Maintenance, 11/22/23 7:49:00 EST, Partial fill upon patient request ifthe prescription is for a schedule II opioid drug. Start Date: 11/22/23 Status: Ordered Vital Signs Most recent to oldest [Reference Range]: 1 2 3 Height 188 cm (11/22/23 7:17 AM) Weight 85.5 kg (11/22/23 7:17 AM) Oxygen Saturation [94-100 %] 97 % (11/22/23 3:00 PM) 98 % (11/22/23 2:30 PM) 99 % (11/22/23 2:00 PM) Body Mass Index [18.5-24.99 kg/m2] 24.19 kg/m2 (11/22/23 7:17 AM) Blood Pressure [90-138/55-84 mm Hg] 125/63mm Hg (11/22/23 12:15 PM) 125/63mm Hg (11/22/23 12:00 PM) 146/116mm Hg *H* (11/22/23 11:15 AM) Respiratory Rate [16-30 br/min] 19 br/min (11/22/23 3:00 PM) 15 br/min *L* (11/22/23 2:30 PM) 10 br/min *L* (11/22/23 2:00 PM) Temperature [96.8-100.4 DegF] 98.7 DegF (11/22/23 7:17 AM) Mode of Delivery (Oxygen) Room air (11/22/23 3:00 PM) Room air (11/22/23 2:30 PM) Room air (11/22/23 2:00 PM) Temperature Route Temporal (11/22/23 7:17 AM) Weight Obtained Via Standing scale (11/22/23 7:17 AM) Cardiac catheterization study * Event Display: Cardiac Automotive Heavy Mechanic Report Authored Date: * Event Display: Cardiac Automotive Heavy Mechanic Report Authored Date: Cardiac Diagnostic + PCI Report Demographics Patient Name STAN MAY Gender Male [employer] Room Number B210 Height 74.02 inches Date of 1935 Weight 188.5 pounds Age 88 year(s) BSA 2.12 m2 Accession Number [id number] BMI 24.19 kg/m2 Referring Physician Sean Date of Study 11/22/2023 Yovani MÉNDEZ Performing Physician Jairo Andrew MD Fellow Alessandra Wren MD Interventional Physician Jairo Andrew MD Procedure Procedure Type Diagnostic procedure:Coronary Angiography with [facility] PCI procedure:Stent (Drug Eluting) Miscellaneous:ACT [facility] Diagnostic Catheterization Status:Elective [facility] Interventional Catheterization Status:Elective Indications Indications: Carotid artery disease. Clinical History Admission Medications + +-------+-------+ + + +---------+ !Medication !Dosage !Times !Last !Last !Administered !Comments ! ! ! !Per Day!Delivery !Delivery ! ! ! ! ! ! !Date !Time ! ! ! + +-------+-------+ + + +---------+ !Aspirin (any)!81 mg !x 1 !11/22/2023 !00:00 !Yes ! ! + +-------+-------+ + + +---------+ !Beta Estelita !12.5 mg!x 1 !11/22/2023 !00:00 !Yes ! ! !(any) ! ! ! ! ! ! ! + +-------+-------+ + + +---------+ !Clopidogrel !75 mg !x 1 !11/22/2023 !00:00 !Yes ! ! + +-------+-------+ + + +---------+ !Statin (any) ! !x 1 !11/22/2023 !00:00 !Yes ! ! + +-------+-------+ + + +---------+ Clinical Evaluation Leading to Procedure - The patient's CAD presentation was assessed as: Stable angina. - The patient's anginal syndrome during the past two weeks was assessed as: Class II according to the [place] Cardiovascular Society Classification System (CCS). - The reason for the patient's clinical genetics laboratory chief visit is pre-operative evaluation before non-cardiac surgery. Exercise Nuclear study showed Positive results with Intermediate ischemic risk. ACC Risk Factors The patient risk factors include:peripheral arterial disease, obesity, cerebrovascular disease, treated and uncontrolled hypercholesterolemia, treated and uncontrolled hypertension, family history of premature CAD, last creatinine: 1 mg/dl and creatinine clearance: 62.94 ml/min. Procedure Data Procedure Date Date: 11/22/2023Start: 08:56End: 11:09 The procedure was explained in detail to the patient. Risks, complications and alternative treatments were reviewed. Written consent was obtained. Entry Locations - Retrograde Percutaneous access was performed through the Right Radial artery. A 6 Fr sheath was inserted. Hemostasis was successfully obtained using TR Band. Closure Comments: 13 cc of air. Procedure Medications - Versed (Midazolam) I.V. 1 mg. - Fentanyl I.V. 25 mcg. - Lidocaine 2% S.C. Right Wrist 5 ml. - Nitroglycerin I.A. 200 mcg. - Heparin I.V. 4000 units. - 0.9NS 500 ml. - Heparin I.V. 4000 units. - Nitroglycerin I.A. 200 mcg. - Fentanyl I.V. 25 mcg. - Versed (Midazolam) I.V. 0.5 mg. - Fentanyl I.V. 25 mcg. - Nitroglycerin I.C. 200 mcg. - Clopidogrel P.O. 300 mg. Sedation: My in-service moderate sedation time was from 0850 to 1103 . Refer to the procedural log for detailed chronological information. Contrast Material - Omnipaque 90 ml Diagnostic Catheters - ADxTerity 5F 100 cm JR 4.0was used for: Left heart catheterization. - ADxTerity 5F 100 cm JR 4.0was used for: Right coronary angiography. - ADxTerity 5F 100 cm JL 3.5was used for: Left coronary angiography. - ALAUNCHER 6F 100 cm JR 4was used for: PCI. - ACaravel 0.36 mm 150 cmwas used for:wire exchange. - ACaravel 0.36 mm 150 cmwas used for:wire exchange. Fluoroscopy Time: PCI: 41:03 minutes. Total: 41:03 minutes. Fluoroscopy Dose: PCI: 89 mGy. Total: 89 mGy. Dose Area Product:PCI: 94538 mGy/cm2. Total: 80243 mGy/cm2. Procedure Narrative We accessed the right radial artery using a 6 [place] slender sheath. We crossed into LV and recorded LVEDP and perform a pullback gradient. Diagnostic angiography with a JR4 and JL 3 5. We noticed severe calcified stenosis in the proximal to mid RCA. Distally also there was a 70% stenosis. Given the fact that he had abnormal stress test and is going for high risk carotid surgery we decided to treat the RCA. He was already on aspirin and Plavix and a discussion was done with the vascular surgeon who already planned to operate on aspirin and Plavix. Moderate severe ostial disease in the right coronary artery 2. We decided not to use an Amplatz guide because it would have given her good support about stenting the ostium could have been quite difficult task. We engaged with JR4 and using support with balloon we have advanced a run-through wire distally. We predilated proximally with 3 mm balloon but we could not cross the midsegment which was tortuous and severely calcified. I did 1-5 balloon but still could not cross. At this stage we decided that we should advance a guide extension proximally to get support but due to severe disease we decided to treat the proximal to mid segment with a stent first. We dilated with a 3.5 mm noncompliant balloon which yielded well all the way to the ostium and then stented proximal RCA with a 3.5 x 26 Garrison NICOLE. Staying 125 balloon we try to cross the lesion again over a guide extension and with some pushing we were able to cross the lesion. We predilated and then crossed with a 2 5 noncompliant balloon followed by 3 oh noncompliant balloon we tried to deliver the stent but we were unsuccessful. We did a montez wire with [employer] flex still we were unsuccessful. We attached an extension to run-through change wire and still we were unsuccessful in advancing a 3.5 x 26 mm Jarrett stent. At this stage we took a 3.5 mm NC balloon and dilated mid segment again at high pressure. Subsequent to that we were able to cross with a three 5 x 26 Jarrett stent. This was deployed and we dilated area with the same balloon. After this we used a 3.5 mm noncompliant balloon and did high-pressure inflation all the way to the ostium. We had a reasonable result at this stage. We noted that the distal RCA 75% stenosis and we decided to leave which. There was also 50% mid RCA stenosis which we felt we should not be stenting but there would heavy calcified chunk present. The patient was stable and we concluded the procedure. Hemostasis with a regular TR band. Angiographic Findings Cardiac Arteries and Lesion Findings LMCA: Long left main with mild disease. LAD: Minimal luminal irregularities.First diagonal has a 50-60 % stenosis. RCA: Lesion in Prox RCA: 99% stenosis .The lesion was heavily calcified.Culprit lesion. Lesion in Mid RCA: 95% stenosis .Culprit lesion. Lesion in Dist RCA: 70% stenosis . Hemodynamics Condition: Rest O2 Consumption: Estimated: 233.87Heart Rate: 62 bpm Pressures (mmHg) +-----+ + !Site !Pressure ! +-----+ + !AO !86/41 (56)! +-----+ + !LV !95/2 ,7 ! +-----+ + !AO !99/44 (66)! +-----+ + !LV !100/-4 ,5 ! +-----+ + Valve Gradients and Areas +------+----+----+----+-----+----+------+ !Valve !Peak!Mean!Area!Index!Flow!Source! +------+----+----+----+-----+----+------+ !Aortic!1 !0 ! ! ! ! ! +------+----+----+----+-----+----+------+ !Aortic!1 !0 ! ! ! ! ! +------+----+----+----+-----+----+------+ Shunts Oxygen Values O2 Consumption 233.87 Interventional Procedure Cardiac lesions RCA: Lesion in Prox RCA: 99% stenosis reduced to 0%.Post Procedure MOOKIE III flow was present. The lesion was heavily calcified.The guidewire cross was successful.Culprit lesion. Treatment results:Interventional treatment was successful. Devices used - Runthrough NS 0.014 in 180 cm Extra Floppy. Number of passes: 1. - Takeru 3.00 mm 12 mm RX. Diameter: 3 mm. Length: 12 mm. 3 inflation(s) to a max pressure of: 8 giancarlo. - Emerge 2.00 mm 15 mm RX. Diameter: 2 mm. Length: 15 mm. 2 inflation(s) to a max pressure of: 10 giancarlo. - NC Emerge 3.50 mm 12 mm. Diameter: 3.5 mm. Length: 12 mm. 5 inflation(s) to a max pressure of: 16 giancarlo. - Garrison Casco 3.50 mm 26 mm RX. Diameter: 3.5 mm. Length: 26 mm. 2 inflation(s) to a max pressure of: 14 giancarlo. - emerge monorail 1.20X12. 1 inflation(s) to a max pressure of: 12 giancarlo. - emerge monorail 1.20X12. 1 inflation(s) to a max pressure of: 12 giancarlo. - emerge monorail 1.20X12. 1 inflation(s) to a max pressure of: 12 giancarlo. - NC Emerge 3.50 mm 20 mm. Diameter: 3.5 mm. Length: 20 mm. 1 inflation(s) to a max pressure of: 16 giancarlo. Lesion in Mid RCA: 95% stenosis reduced to 0%.Post Procedure MOOKIE III flow was present. The guidewire cross was successful.Culprit lesion. Treatment results:Interventional treatment was successful. Devices used - emerge monorail 1.20X12. 3 inflation(s) to a max pressure of: 12 giancarlo. - emerge monorail 1.20X12. 1 inflation(s) to a max pressure of: 12 giancarlo. - NC Emerge 2.50 mm 12 mm. Diameter: 2.5 mm. Length: 12 mm. 2 inflation(s) to a max pressure of: 12 giancarlo. - NC Emerge 3.00 mm 8 mm. Diameter: 3 mm. Length: 8 mm. 3 inflation(s) to a max pressure of: 16 giancarlo. - HI-TORQUE WIGGLE 0.014 in 300 cm Straight Tip 2cm. Number of passes: 1. - Jarrett Casco 3.50 mm 26 mm RX. Diameter: 3.5 mm. Length: 26 mm. 2 inflation(s) to a max pressure of: 14 giancarlo. - NC Emerge 3.50 mm 20 mm. Diameter: 3.5 mm. Length: 20 mm. 4 inflation(s) to a max pressure of: 16 giancarlo. Conclusions Diagnostic Summary 88-year-old gentleman who is presenting for stable angina and abnormal nuclear perfusion study. He had TIA and was diagnosed with bilateral carotid stenosis. Carotid stenting was attempted in [place] but it failed. He has seen vascular surgery at [facility] and being planned to undergo carotid endarterectomy. He is referred to us for diagnostic angiography. Hemodynamics: Low systemic pressures. Normal LVEDP. Coronary anatomy: Right dominant circulation. Severe proximal to mid RCA stenosis with tortuosity and calcification. Distal RCA also had 70% stenosis. No significant LAD or circumflex stenosis. First diagonal had 50 to 60% stenosis. Diagnostic Recommendations PCI to the right coronary artery Interventional Summary Successful drug-eluting stent with 2 overlapping 3.5 mm x 26 mm Garrison NICOLE. Pressure. Complex procedure requiring guide extension and wiggle wire. Noted that distally there was a 70% stenosis which we decided to treat medically for now. He will be going for carotid surgery and will be operated on aspirin and Plavix. Interventional Recommendations Continue aspirin 81 mg indefinitely. We will reload with Plavix 300 mg and continue 75 mg of Plavix. Aggressive secondary risk factor modification according to ATP III guidelines. Proceed with the carotid surgery with intermediate risk for perioperative cardiovascular complications. Discussion was done with vascular surgeon and he plans to operate on aspirin and Plavix. Distal RCA has 70% stenosis and can be treated if he has anginal symptoms in the future. ACC Diagnostic Recommendations: PCI without planned CABG. Complications:None. Signatures Note * Event Display: Hemodynamic Procedure Report Authored Date: * Event Display: Hemodynamic Procedure Report Authored Date: * Marisa Lopes RN: PERFORM, SIGN, VERIFY Event Display: Cardiac Rehab Note Authored Date: Patient: AYDIRA PIERCE Age: 88 years Sex: Male : 1935 Associated Diagnoses: None Author: Marisa Lopes RN Diagnosis Cardiac Rehab Diagnosis: PCI DESx2. Pre-exercise Vitals Vital Signs Comment: Reviewed in CIS. Pre-exercise Physical Examination Neurologic: alert & oriented. Activity Activity comment: in in Bed with TR band on, pt on bed rest post Cath no ambulation . Patient Education Education: Patient alone, Stent card reviewed. Education topic Teachback comprehension 75% Topic: Pathophysiology, Medication education, Role of exercise, Home activity guidelines/limits. Recommendation and Plan Ambulate: 3-5 times/day, When Able . Outpatient follow up recommended: [facility], Pt lives in [place], offered Phase 2 at [place],pt requesting [facility] as pt reports seeing Cardiolgist and Vascular at [facility]. Pt reports upcomingVascular surgery in begining of Nov and pt wanting to wait for CR until after. Pt told to follow upwith Log Sorting Supervisor and obtain referral for CR after Vascular surgery. Pt [facility] [place] [facility] [place]. . Cardiac Rehab: Will sign off at this time. Recommendation comment: RN notified of plan. * Kendra Israel RN: PERFORM Event Display: Discharge/Transfer Note Hospital Authored Date: Nursing Discharge Note Entered On: 11/22/2023 16:27 EST Performed On: 11/22/2023 15:00 EST by Kendra Israel RN Nursing Discharge Note 2 Discharge Time : 11/22/2023 15:00 EST Discharge Level of Care at Discharge : Home/Halfway/Foster Care Patient Left Unit Via : Wheelchair Patient Accompanied Off Unit with : Responsible adult DC Instructions Provided & Signed by Pt : Yes Patient Understands D/C Instructions : Yes Verbalized Understanding of D/C Plan By : Patient Patient Instructions Discharge Signed : Yes Did Pt have Specialty Bed or Wound Vac : No Kendra Israel RN - 11/22/2023 16:27 EST * Kendra Israel RN: PERFORM Event Display: Patient Education/Instruction Authored Date: [id number] Inpatient Adult Discharge Instructions [address] [address] Name: YADIRA PIERCE : 1935 Visit: 11/22/2023 06:41:00 Current Date: 11/22/2023 12:59 Account: [id number] Inpatient Adult Discharge Instructions We would like to thank you for allowing us to assist you with your healthcare needs. The following includes patient education materials and information regarding your injury/illness. Our entire staffstrives to provide an excellent experience for our patients and their families. PLEASE ENSURE YOU FOLLOW-UP PER THE INSTRUCTIONS BELOW! ?? YOUR OPINION IS IMPORTANT TO US! Please complete the survey you may receive by mail or email. Your feedback will be used to make improvements to the healthcare experiences of our patients and their families. Surveys are administered by [employer] ?? If further treatment with your primary care physician or another doctor is recommended, it is important for you to keep the appointment. Call your primary care physician or return to the Emergency Department immediately if your condition worsens, fails to improve, or new symptoms develop. If you need to find a doctor, you can call [facility] for a referral at [phone] or toll free at [phone] or log in to [email or web address].. ?? [facility], in keeping with [facility] guidance, no longer requires face masks for staff, patientsor visitors in most situations. Similiar to time spent indoors at other locations, there is the chance that you were exposed to repiratory viruses during your time with us (such as flu or COVID-19). If you develop symptoms concerning for a viral respiratory infection, please seek testing (and treatment if indicated) from your medical provider or home test kit. ?? You can view and manage your care through the patient portal or by using a health care javy of your choosing. [employer] is a website that allows you to securely view your medical information including your hospital discharge summary, office visit summaries, medications and follow-up visits. You can also request appointments, renew medications, and request access to your medical information using a health care javy of your choosing, or just ask a question. You can enroll at [email or web address] or register during your next office visit. You have been discharged from [facility], Patient Care Unit: CARE. If you have any questions regarding these instructions after you leave, please call us and we will be happy to assist you. [facility] Your Care Team Attending Physician Kamran MÉNDEZ, Jairo Discharging Providers Alessandra Wren MD Reason for Admission PREOP [facility] HV2 630AM ARR Tests Performed Below is a partial list of the tests performed during your hospitalization. You may have had other tests and procedures not included in this list. Please discuss all test results with your provider. Primary Care Provider Pro Nunn MD Advance Directive Health Care Proxy on File No Discharge Vitals Temperature: 98.7 DegF Height: 188 cm Respiratory Rate:??14 br/min??Low Weight: 85.5 kg Systolic Blood Pressure: 125 mm Hg Body Mass Index: 24.19 kg/m2 Diastolic Blood Pressure: 63 mm Hg Body surface area: 2.11 Oxygen Saturation: 100 % ?? Studies Pending All tests and labs ordered during this hospital stay have been completed unless listed below. Please discuss all pending results with your provider listed above in these instructions. ?? BUN CBC Creatinine Type and Screen What to do next Instructions From Your Doctor Discharge Orders You Need to Schedule the Following Appointments Follow Up with??Sean Pina MD When:??Within 2 to 5 weeks Where: [address] [facility] [address] [facility] [place] [address]- Follow Up with??Pro Nunn MD When:??Within 2 to 5 weeks Where: [address] [place] [address]- Discharge Medications YADIRA PIERCE :1935 Visit Date:11/22/2023 Medications: Please continue your medications until treatment is completed or stopped by your provider. Medications not listed below should be discontinued. Discuss any questions related to medications with your provider. What How Much When Instructions Next Dose Changed Clopidogrel (clopidogrel 75 mg oral tablet) 1 tab(s) Oral Daily Duration: 90 Days Pickup at [facility] 3 as prescribed; continue per home schedule tomorrow 11/23/23 Unchanged Aspirin (aspirin 81 mg oral delayed release tablet) 1 tab(s) Oral Daily as prescribed; continue per home schedule Unchanged Metoprolol (metoprolol 25 mg oral tablet) 1 tab(s) Oral Twice a day as prescribed; continue per home schedule Unchanged Rosuvastatin Oral Daily as prescribed; continue per home schedule Pharmacy Information [facility]: [address], [place] [id number] [phone] Test Results Below is a partial list of the most recent Laboratory test results done prior to this discharge. You may have had other tests and procedures not included in this list. Please discuss all test resultswith your provider. Allergies (NKA means No Known Allergies) Benadryl Problems No qualifying data available Education Materials Below is the list of Educational Leaflet Providered with your Discharge Instructions. Surgery Radial Cath Approach Discharge Instructions?? Procedural Sedation?? Discharge Instructions for Coronary Angioplasty and Stenting?? Valuables and Belongings I fully understand and agree that [facility] accepts no responsibility for all my personal property including clothing, toilet articles, radios, jewelry, dentures, hearing aids, rings, money, or any other property that is in my possession or is brought to me after admission. I understand certain valuables may be placed in a hospital safe for a short period of time. I understand that the hospital is not liable for loss or damage due to accident, fire, or other natural occurrence while said property is in the safe. I accept full responsibility for any personal property that I keep with me, and will not hold the hospital responsible in case of loss or disappearance. I acknowledge that i have been encouraged to send valuables and belongings home. ?? Date for Pt to Sign Valuables/Belongings: 11/22/23 08:05:00 ?? Valuables & Belongings ?? Clothes Electronic devices Jewelry Monetary Items Personal devices Miscellaneous Medications (Valuables) Valuables at Bedside Jacket, Pants, Shirt, Shoes, Undergarments ? Cane, Hearing aid, left, Hearing aid, right ? Valuables Sent Home ? Valuables Sent to Security ? Other Discharge Information ? Pulmonary Rehab Status?? Pulmonary Rehab Discharge Status?? Respiratory Rate:??14 br/min??Low ? Cardiac Rehab Assessment?? Cardiac Rehab Inpatient Assessment?? Comments-Education: Post procedure guidlines, Stent card REviewed Comments-Exercise Activity: Home walking, post procedure guidlines Comments-Nutrition: heart Healthy Comments-Lipids: diet exercise medication compliance Comments-Other plan of care: Phase 2 Cardiac Rehab referral- pt wants to wait until after vascular surgery for cardiac rehb pt will followup with Log Sorting Supervisor and get referred after surgery Common Emergency Awareness Tips IS IT A STROKE? Act FAST and Check for these signs: FACE Does the face look uneven? ARM Does one arm drift down? SPEECH Does their speech sound strange? TIME Call at any sign of stroke ?? Heart Attack Signs Chest discomfort: Most heart attacks involve discomfort in the center of the chest and lasts more than a few minutes, or goes away and comes back. It can feel like uncomfortable pressure, squeezing, fullness or pain. Discomfort in upper body: Symptoms can include pain or discomfort in one or both arms, back, neck, jaw or stomach. Shortness of breath: With or without discomfort. Other signs: Breaking out in a cold sweat, nausea, or lightheaded. Remember, MINUTES DO MATTER. If you experience any of these heart attack warning signs, call to get immediate medical attention! ?? Smoking can increase your chances of developing chronic health problems and can cause harmful effects to other family members in your house. If you smoke, you are strongly encouraged to quit. Please call [facility] at [phone] or [phone] ([phone]) or log in to [email or web address] for referrals to smoking cessation programs. ?? 988 Suicide & Crisis Lifeline is available 22/05 if you or someone you know needs to find a reason to keep living. By calling 868 you'll be connected to a skilled, trained counselor at a crisis center in your area. INPATIENT DISCHARGE INSTRUCTIONS SIGNATURE PAGE YADIRA PIERCE Location:[facility] Registration Date and Time:11/22/2023 06:41 EST Primary Care Physician: Pro Nunn MD, Attending Physician: Kamran MÉNDEZ, Jairo, I STAN YADIRA, have received the above patient education materials/instructions and have verbalized understanding. If ambulance or transport services are being used I further acknowledge being given a choice of service. ?? If you need to contact me, please call me at this number: . Patient/Ferris Wheel Operator Name: Patient/Ferris Wheel Operator Signature: Relationship to Patient: Witness Name/Signature: Date: * Kendra Israel RN: PERFORM Event Display: Patient Education Leaflets Authored Date: Surgery Radial Cath Approach Discharge Instructions ?? 278 Radial Cath Approach Discharge Instructions ?? Activity Take it easy the rest of the day. Limit your activity on the affected side.?? Act as if your arm is broken for 24 hours. No lifting with affected arm for 24 hours. No pushing or pulling with the affected arm. Do not reach or lift with the affected arm. Do not place excessive pressure on the wrist. ?? Precautions Due to intravenous sedation: It is recommended that someone stay with you for the first night after your procedure. Do not drive or operate hazardous machinery for 24 hours. Do not make legal decisions for 24 hours. Avoid alcohol for 24 hours. Unless directed otherwise, keep yourself hydrated. ?? Dressing/Incision Care You may remove the dressing 24 hours after your procedure. Replace with band aid for an additional 24 hours. You may shower and cleanse the site with soap & water then pat dry. Avoid submersion of site in water x 5 days. Cover the with a clean band aid daily until site is healed. If the band aid becomes soiled, replacewith a clean new one. Do not apply any ointments, lotions, gels or powders to the puncture site. ?? When to contact your doctor If any of the following signs of infection occur: Fever greater than 100 degrees F Increased pain Drainage, redness or warmth at puncture site Tingling of the fingers and hand that last longer than 3 days Slight bubble of blood or bleeding from site: apply manual pressure and notify your doctor ?? Emergency situations: Bleeding from the site that will not stop: apply manual pressure and notify your doctor Profuse bleeding streaming from the puncture site: Apply manual pressure and notify your doctor immediately If your hand becomes bluish, cold to the touch, or painful, notify your doctor immediately or go toEmergency Department. For these emergent situations: If unable to contact your physician, call 911. ?? * Kendra Israel RN: PERFORM Event Display: Patient Education Leaflets Authored Date: [id number] Procedural Sedation ?? 01821 Procedural Sedation Procedural sedation is medicine to ease discomfort, pain, and anxiety during a procedure. The medicine is often given through an IV (intravenous) line in your arm or hand. In some cases, the medicinemay be taken by mouth or inhaled. While you are under sedation, you will likely be awake. But you may not remember it afterward. Why procedural sedation is used Sedation is used for many types of procedures. The goal is to reduce pain, anxiety, and stressful memories of a procedure. It can help your healthcare provider treat you. For example, having a brokenbone fixed may be easier if you feel relaxed. This type of sedation is used only for short, basic procedures. It's not used for complex surgery. Some procedures that use this type of sedation include: ??? Dental surgery ??? Breast biopsy, to take a sample of breast tissue ??? Endoscopy, to look at gastrointestinal problems ??? Bronchoscopy, tocheck for lung problems ??? Bone or joint realignment, to fix a broken bone or dislocated joint ???Minor foot or skin surgery ??? Electrical cardioversion, to restore a normal heart rhythm ??? Lumbar puncture, to check for neurological disease ?? Risks of procedural sedation Risks and possible side effects include: ??? Headache ??? Nausea and vomiting ??? Bad memories of the procedure ??? Slowed breathing ??? Changes in heart rate and blood pressure (rare) ??? Inhalation of stomach contents into your lungs (rare) Side effects will likely go away shortly after the procedure. Your healthcare team will watch your heart rate and breathing during and after your sedation. This is to help prevent problems. Your own risks may vary. They can be based on your age and your overall health. They also depend onthe type of sedation you are given. Talk with your healthcare provider about the risks that apply most to you. ?? Getting ready for procedural sedation Talk with your provider about how to get ready for your procedure. Tell them about all the medicines you take. This includes [id number] medicines, such as ibuprofen. It also includes vitamins, herbs, and other supplements. You may need to stop taking some medicines before the procedure, such as blood thinners and aspirin. If you smoke, you should stop. This is to lessen the chance of a lungproblem. Talk with your healthcare provider if you need help to stop smoking. Tell your provider if you: ??? Have had any problems in the past with sedation or anesthesia ??? Have had any recent changes in your health, such as an infection or fever ??? Are or think you could be Also: ??? Follow any directions you are given for not eating or drinking before procedure. ??? Ask a family member or friend to take you home after the procedure. You can???t drive on the day you have sedation. ??? Don't make any important decisions, such as financial or legal, on the day after youhave sedation. ??? Follow all other instructions from your provider. ?? During your procedural sedation You may have your procedure in a hospital or a clinic. Sedation is done by a trained healthcare provider. In general, you can expect the following: ??? You will be given medicine through an IV line in your arm or hand. Or you may get a shot or take it by mouth. Or you may inhale it through a mask. ??? If you have medicine through an IV, you may feel the effects very quickly. You will start to feel relaxed and drowsy. ??? During the procedure, your heart rate, breathing, and blood pressure will be closely watched. Your breathing and blood pressure may decrease a little. But you will likely notneed help with your breathing. You may get a little extra oxygen. This is done through a mask or some soft plastic prongs under your nose. ??? You will likely be awake the whole time. If you do fall asleep, you should be easy to wake up, if needed. You should feel little or no pain. ??? When your procedure is over, the sedative medicine will be stopped. ?? After your procedural sedation You will start to feel more awake and aware. But you will likely be drowsy for a while afterward. You will be closely watched as you become more alert. You may have a faint memory of the procedure. Or you may not remember it at all. You should be able to go home within 1 to 2 hours after your procedure. Plan to have someone stay with you for a few hours. Side effects, such as headache and nausea, may go away quickly. Tell your healthcare provider if they continue. Don???t drive, operate dangerous machines, or make any important business or personal decisions during the next 24 hours. Be sure to follow all after-care directions. ?? When to call your healthcare provider Have someone call your healthcare provider right away if any of the following occur: ??? Drowsinessthat gets worse ??? Weakness or dizziness that gets worse ??? Repeated vomiting ??? Severe or ongoing pain from the procedure, not relieved by the pain medicine ??? Fever of 100.4?? F (38??C) or higher, or as directed by your healthcare provider ??? New rash ?? Call 911 Have someone call 911 if any of the following occur: ??? Shortness of breath ??? Chest pain ??? Loss of consciousness or you can't be awakened ?? Last Reviewed Date: 2022 ?? [employer] All rights reserved. This information is not intended as a substitute for professional medical care. Always follow your healthcare professional's instructions. ?? * Kendra Israel RN: PERFORM Event Display: Patient Education Leaflets Authored Date: [id number] Discharge Instructions for Coronary Angioplasty and Stenting ?? 52063 Discharge Instructions for Coronary Angioplasty and Stenting During your angioplasty,??a healthcare provider inserts a thin tube called a catheter into a blood vessel??in your groin or wrist. The??catheter is guided through your blood vessel to a blocked area in one of your heart???s arteries. The healthcare provider inflates a tiny balloon at the tip of thecatheter and stretches the blocked vessel so blood can flow freely. The balloon is then deflated and removed with the catheter. The healthcare provider may also insert a metal mesh tube called a stent in the blocked vessel.??The stent helps the vessel stay open. You may get several stents if you have blockages in more than one of your arteries. Home care ??? Ask someone to drive you to your appointments for the next few days. ??? Rest for?? 2to 3??days after the procedure. Most people are able to go back to normal activity within a few days. ??? Check your incision for signs of infection every day for a week.??Signs of infection include redness, swelling, drainage, or warmth. It's normal to have a small bruise or bump where the catheter was inserted. Take your temperature if you have fever or chills. ??? Take your medicines exactly as directed. Don???t skip doses. It's important to take aspirin or other similar medicines for as long as your provider advises. If you were also prescribed clopidogrel, prasugrel, or ticagrelor, it's very important to take these medicines as well. These medicines prevent clots that could cause a heart attack. If you have??a problem with any of your medicines, call your healthcare provider right away. And call your provider right away if you have bleeding,??but go to the emergency room if the bleeding can't be controlled. ??? Unless told otherwise, drink plenty of fluids to help flush your bodyof the dye that was used during your angioplasty. Let your healthcare provider know if the color ofyour urine changes and doesn't return to normal color. ??? Eat a healthy diet that is low in fat, salt, extra sugar, and cholesterol. Ask your healthcare??team for menus and other diet information. ??? Exercise according to your healthcare team's advice. Depending on your case, your team may recommend you start a cardiac rehabilitation program. Cardiac rehab is an exercise program in which trained healthcare staff monitor your progress and stress on your heart while you exercise. Ask how to enroll if your team recommends this program. ??? Don't swim or take a bath for 5 to 7 days. You may shower the day after the procedure, or as your healthcare provider has instructed. This keeps the incision site from getting too wet and possibly infected until the skin and artery can heal. ?? Follow-up care ??? Make a follow-up appointment as directed. Follow-up appointments are usually scheduled for 2 to 4 weeks after an angioplasty or coronary stent procedure. ??? Have a yearly checkup to make sure you are still doing well and not having any new symptoms. ??? Don't wait for a follow-up appointment if your medicines are not working or you are having heart-related symptoms. ?? When to call your healthcare provider Call your healthcare provider right away if you have any of the following: ??? Chest pain or a return of the symptoms you had before the angioplasty that are promptly relieved with rest or medicines ??? Fever above?? 100.4?? F??( 38.0??C) (or 1 degree or higher above your normal temperature); or other signs of infection (redness, swelling, drainage, or warmth at the incision site of the leg or wrist) ??? Bleeding, bruising, or a large swelling where the catheter (tube) was inserted ?? Call 911 Call 911 if any of these occur: ??? Unusual chest pain or chest pain that doesn't go away ??? Symptoms that you had before the angioplasty return and aren't eased with rest or medicines ??? Constant or increasing pain or numbness in your leg, or your leg looks blue or feels cold ??? Unusual shortness of breath ??? Feeling faint ??? Trouble speaking or weakness in any muscle ??? Blood in your urine; bloody, black, or tarry stools; or any other kind of bleeding ?? Last Reviewed Date: 2021 ?? [id number] [employer] All rights reserved. This information is not intended as a substitute for professional medical care. Always follow your healthcare professional's instructions. ?? History and physical note * Event Display: History and Physical Hospital Authored Date: * Event Display: History and Physical Hospital Authored Date: EKG study * Event Display: ECG 12-Lead Authored Date: Please click on pdf link to open report * Event Display: ECG 12-Lead Authored Date: Ventricular Rate: 73 BPM Atrial Rate: 73 BPM P-R Interval: 348 ms QRS Duration: 86 ms Q-T Interval: 390 ms QTC Calculation(Bazett): 429 ms P [place]: 43 degrees R [place]: 17 degrees T [place]: -25 degrees Sinus rhythm with 1st degree A-V block Nonspecific T wave abnormality Abnormal ECG When compared with ECG of 22-NOV-2023 11:18, MANUAL COMPARISON REQUIRED, DATA IS UNCONFIRMED Confirmed by SUSY DILL MD ([id number]) on 11/22/2023 5:46:00 PM [place]: SUSY DILL MD * Event Display: ECG 12-Lead Authored Date: Please click on pdf link to open report * Event Display: ECG 12-Lead Authored Date: Ventricular Rate: 61 BPM Atrial Rate: 61 BPM P-R Interval: 312 ms QRS Duration: 96 ms Q-T Interval: 430 ms QTC Calculation(Bazett): 432 ms P [place]: 30 degrees R [place]: 18 degrees T [place]: 190 degrees Sinus rhythm with sinus arrhythmia with 1st degree A-V block Nonspecific T wave abnormality Abnormal ECG When compared with ECG of 22-NOV-2023 07:19, Premature ventricular complexes are no longer Present UT interval has increased Confirmed by SUSY DILL MD ([id number]) on 11/22/2023 5:45:07 PM [place]: SUSY DILL MD * Event Display: ECG 12-Lead Authored Date: Please click on pdf link to open report * Event Display: ECG 12-Lead Authored Date: Ventricular Rate: 61 BPM Atrial Rate: 61 BPM P-R Interval: 202 ms QRS Duration: 88 ms Q-T Interval: 422 ms QTC Calculation(Bazett): 424 ms P [place]: 49 degrees R [place]: 37 degrees T [place]: 44 degrees Sinus rhythm with frequent Premature ventricular complexes Otherwise normal ECG No previous ECGs available Confirmed by SUSY DILL MD ([id number]) on 11/22/2023 9:17:40 AM [place]: SUSY DILL MD Patient Care team information Care Team Personnel Name: Pro Nunn MD Position: Reference Physician Member Role: PCP Address: Address: [address] [place] [id number]- Care Team Related Persons Name: ALEJO PIERCE Address: home [address] [place] [address]
--- NOTE | 2024-03-14 01:14 | PM.IMHP ---
History of Present Illness Date of Service: 03/14/24 Attending physician on admission: Andrea Mota Chief Complaint: Dizziness Geoffrey Bone is 89 years old man with past history significant for diet-controlled diabetes mellitus, prostate and colon CA, essential hypertension, CAD status post stenting, carotid artery disease status post endarterectomy (Nov 2023) was brought to the emergency department via EMS after he started to experience dizziness (he describes it as a sensation of being rolling forward) last night around 8 pm associated with mild nausea. He also complained of associated heaviness to the lower extremities. He denied headache, acute visual disturbances, vomiting, palpitations, speech difficulty, , swallowing difficulty, facial weakness/numbness or upper extremity weakness/numbness. He also denied any acute cardiopulmonary, gastrointestinal or genitourinary symptoms. Patient stated that he was recently diagnosed with TIA in [place]. He takes Plavix and aspirin. Denies tobacco smoking, alcohol abuse or illicit drug use. In the ED, he was found to have stable vital signs. Blood pressure is 150/77. Blood workup showed no leukocytosis. Hemoglobin is 12.5. Platelets are normal. There are no significant electrolyte imbalances. Creatinine is 0.82. Troponin is 8.2. Head and neck CTA showed hypodense focus involving the right frontal lobe/presented gyrus suggestive of subacute versus acute stroke, stable severe atheromatous disease at the origin of the right internal carotid artery with an approximate 90% stenosis and no significant stenosis of the intracranial vasculature. ED tx: None. Case was discussed with Neurology by ED physician and no TNK given. Review of Systems Review of Systems: All 12 systems were reviewed and normal except as noted in HPI. [facility] Medical History CAD (coronary artery disease) Afib Preoperative cardiovascular examination Symptomatic stenosis of left carotid artery Prostate cancer History of trigger finger Arthritis Rectal cancer Bladder neck contracture GERD (gastroesophageal reflux disease) Urinary incontinence Obstructive sleep apnea Coronary artery disease Type 2 diabetes mellitus with hyperglycemia Small bowel obstruction Erectile dysfunction Overweight (BMI 25.0-29.9) Peripheral vascular disease Hematuria Constipation BPH (benign prostatic hyperplasia) Prostate cancer Colon cancer Dysuria Hyperlipidemia, unspecified Essential hypertension Family History Father Pancreatic cancer Mother No problems noted. Brother Liver cancer Surgical History History of left-sided carotid endarterectomy History of coronary artery stent placement History of exploratory laparotomy History of carpal tunnel release History of prostate surgery (~2017) History of bladder surgery (~01/04/18) History of colectomy History of appendectomy Social History Household Members: Other Household Members Other:: Granddaughter Housing: House Are you a primary acute care physical therapist to a significant other at home: No Do you presently have visiting nurse or other home services: No Alcohol intake: never Comment: patient refusing bed alarm/alert&appropriate/uses can w/ ambulation Patient Tobacco Use Status: Never used Tobacco Tobacco use type: Cigar Smoked in Last 30 Days: No e-Cigarette/Vaping Use: Never Used Second Hand Smoke Exposure: No Use of substances other than those prescribed or required for medical reasons: No Advance Directives: Yes Advance Directives on File: Yes Advance Directives Date on File: 09/29/20 Do you have a plan to hurt others: No Plan service: Yes Current occupational status: retired Cognitive needs: Yes (cane) Hearing needs: Yes (hearing aide) Vision needs: Yes (glasses) Meds Allergies Allergy/AdvReac Type Severity Reaction Status Date / Time diphenhydramine AdvReac Intermediate Hallucinati Verified 03/13/24 21:15 [From Tereza] ons Active Medications: Current Medications Acetaminophen (Acetaminophen 325 Mg Tablet) 650 mg PO Q6H PRN PRN Reason: Fever Acetaminophen (Acetaminophen 325 Mg Tablet) 650 mg PO Q6H PRN PRN Reason: Pain, Mild (Pain Scale 1-3) Acetaminophen (Acetaminophen 325 Mg Tablet) 650 mg PO Q6H PRN PRN Reason: Headache Metoprolol Tartrate (Metoprolol Tartrate 12.5 Mg Halftab) 12.5 mg PO ONCE ONE; Protocol Stop: 03/14/24 01:13 Sodium Chloride (0.9 % Sodium Chloride Flush 3 Ml Syringe) [address] [facility] Home Medications ?Medication ?Instructions ?Recorded ?Confirmed ?Last Taken ?Type aspirin 81 mg tablet,delayed 81 mg PO DAILY 12/01/22 03/06/24 04/04/23 History release cyanocobalamin (vitamin B-12) 1,000 mcg PO DAILY 12/01/22 03/06/24 04/04/23 History 1,000 mcg tablet docusate sodium 100 mg capsule 100 mg PO DAILY PRN Constipation 01/12/24 01/12/24 Unknown History Physical Exam Vital Signs and Narrative: Vital Signs: Last Vital Signs Temp 97.7 F 03/13/24 21:15 Pulse 75 03/13/24 22:02 Resp 14 03/13/24 22:02 BP 150/77 H 03/13/24 21:15 Pulse Ox 95 03/13/24 22:02 O2 Del Method Room Air 03/13/24 22:02 BMI result Body Mass Index 28.1 Constitutional - Awake and Alert, No apparent distress. Cooperative. Pleasant HEENT - PERRLA, EOMI Heart - RRR Lungs - Normal lung expansion, Normal respiratory effort, No respiratory distress, CTA bilaterally Abdomen - NT / ND; +BS; No rebound or guarding Extremities - no calf tenderness bilaterally, no swelling Musculoskeletal - Normal inspection, normal ROM Skin - Warm/Dry Neurological - Alert & oriented x3. No facial droop. Normal speech. Strength 5/5 in all muscle groups grossly except left lower extremity (4/5). Normal behavior. Psychological - Appropriate affect Results Labs 03/13/24 21:40 03/13/24 21:40 Labs: Laboratory Results - last 24 hr 03/13/24 03/13/24 21:05 21:40 MCV 84.0 MCH 28.9 MCHC 34.4 RDW 12.8 Plt Count 246 MPV 9.4 Immature Gran % (Auto) 0.6 H Neut % (Auto) 59.7 Lymph % (Auto) 26.8 Mcleod % (Auto) 8.4 Eos % (Auto) 4.1 H Baso % (Auto) 0.4 Lymph # (Auto) 1.9 Mcleod # (Auto) 0.6 Eos # (Auto) 0.3 Baso # (Auto) 0.0 Abs Immat Gran (auto) 0.04 H Absolute Neuts (auto) 4.2 Absolute Nucleated RBC 0.000 Nucleated RBC % (auto) 0.0 PT 12.3 INR 1.0 APTT 32.7 Anion Gap 14 Estim Creat Clear Calc 67.7 Estimated GFR > 60 POC Glucose 126 H Random Glucose 137 H Calcium 8.7 Total Creatine Kinase 53 Troponin I High Sens 8.2 D Hold Yellow Top See Note Imaging Radiologist's Impressions: Impressions Head CT 03/13/24 21:13 IMPRESSION: 1. Hypodense focus involving the right frontal lobe/precentral gyrus suggesting subacute versus acute infarct. Correlation with symptomatology. 2. Chronic white matter small vessel ischemic changes. This critical result was discussed with DR PAGE by telephone on 03/13/2024 9:25 PM and it was ascertained that the content and urgency of the report was understood at the time of direct communication. Head/Neck CTA 03/13/24 21:37 IMPRESSION: Stable severe atheromatous disease at the origin of the right internal carotid artery with an approximate 90% stenosis. Imaging findings of a presumed prior left-sided carotid endarterectomy with a widely patent left carotid bifurcation and cervical left internal carotid artery. No significant stenosis in the intracranial vasculature at the level of the [place], otherwise stable compared to the previous exam. Low-density change in the precentral gyrus of the high right frontal lobe is chronic in appearance from a prior infarct. Approximate 1.2 cm groundglass nodule at the right lung apex is stable. According to the UPDATED 2017 Fleischner Society recommendations, the advised follow-up imaging for CT at 6-12 months to confirm persistence, then CT every 2 years until 5 years documented stability. Assessment and Plan (1) CVA (cerebral vascular accident): Qualifiers: CVA mechanism: unspecified Qualified Code(s): I63.9 - Cerebral infarction, unspecified Status: Acute (2) Carotid stenosis, right: Status: Acute (3) Obstructive sleep apnea: Status: Acute (4) Coronary artery disease: Qualifiers: Coronary Disease-Associated Artery/Lesion type: [place] artery Tribe vs. transplanted heart: saxman heart Associated angina: without angina Qualified Code(s): I25.10 - Atherosclerotic heart disease of [place] coronary artery without angina pectoris Status: Acute Plan Geoffrey Bone is 89 y/o man admitted with: Left lower extremity weakness associated with vertigo-like symptoms. Acute versus subacute CVA. Admit to hospitalist service. Telemetry. Neuro checks every 2 hours. Continue Plavix, aspirin and statin. PT and OT evaluation. Brain MRI. TTE w/ bubble study. Stroke education. Neurology consult. Severe carotid artery disease/severe right ICA s/p recent left carotid artery endarterectomy (Dec 04). Stable. F/U with Dr. Shen as an outpatient. Will request consult for further recommendations. CAD. s/p NICOLE RCA Oct 2023, continue aspirin, Plavix and statin. Essential hypertension. Continue metoprolol. Type 2 diabetes mellitus. Diet controlled. Diabetic diet. BG checks before meals and bedtime. Hyperlipidemia. Continue statin. Obstructive sleep apnea. Patient reports does not require CPAP. DVT prophylaxis: SCDs. On Plavix and aspirin. Code status: Full Patient will need hospitalization for at least 2 midnights for further evaluation for stroke symptoms with brain MRI and neurology evaluation. Patient will also need close monitoring of neuro status and vital signs. Quality Stroke Does the patient have a stroke diagnosis?: Yes Reason for No Anti-thrombotic by Day Two: N/A - Med Ordered VTE Prior VTE?: No VTE Risk Level:: Medical - moderate - high VTE Device Contraindication: N/A - Device Ordered VTE Drug Contraindication: N/A - Med Ordered
[2024-03-14 06:31] LABS: Hematocrit 37.8 % (42.0-52.0); Hemoglobin 12.8 g/dl (14.0-18.0); Mean Corpuscular HGB Conc 33.9 g/dl (31.0-36.0); Mean Corpuscular Volume 85.7 fL (80.0-98.0); Mean Platelet Volume 9.6 fL (9.4-12.4); Platelet Count 253 X10*3/uL (160-400); Red Blood Count 4.41 X10*6/uL (4.60-5.80); Red Cell Distribution Width 12.7 % (11.0-16.0); White Blood Count 8.1 X10*3/uL (4.8-10.8)
[2024-03-14 06:48] LABS: Anion Gap 13 (12-20); Blood Urea Nitrogen 10 mg/dL (9-16); Carbon Dioxide 21 mmol/L (22-29); Chloride 112 mmol/L (96-108); Estimated Glomerular Filt Rate > 60; Glucose Random 112 mg/dL (60-115); Potassium 3.7 mmol/L (3.3-5.1); Sodium 142 mmol/L (135-145)
--- NOTE | 2024-03-14 07:00 | CA_ITS ---
Transthoracic Echocardiogram Patient (Last, First, Middle): Geoffrey Bone S Gender: Male Date of : 1935 Age: 89 Procedure Date: 03/14/2024 Procedure Type: Transthoracic Echocardiogram Location: ER Height: 175.26 cm Weight: 86.18 kg BSA: 2.02 m2 Heart Rate: 57 bpm BP: 155 / 63 mmHg Client Services Associate: ELIDIA Referring MD: Andrea Mota MD Curb Worker: Kanu Rendon MD Symptoms: Stroke symptoms Study Quality: Fair ECG Rhythm: Bradycardia Conclusions: - 1. Normal LV ejection fraction 65-70% with mild LVH with impaired relaxation filling pattern 2. Mild aortic regurgitation 3. Normal RV systolic pressure 4. Mildly dilated ascending aorta at 3.8 cm 5. No gross pericardial effusion Findings Left Ventricle Normal left ventricular size and systolic function. There is mildly increased left ventricular wall thickness. The visually estimated ejection fraction is between 65-70%. Spectral Doppler is indicative of an impaired relaxation filling pattern. E/E prime ratio is between 8 and 15 consistent with indeterminate filling pressures. Right Ventricle Normal right ventricular cavity size and systolic function. Atria The left atrium is likely dilated. There is lipomatous hypertrophy of the interatrial septum. There is no evidence of interatrial shunt. The right atrium was not well visualized. Aortic Valve There is mild calcification of the aortic valve. There is no aortic valve stenosis. There is mild aortic valve regurgitation. Mitral Valve There is mild anterior and posterior mitral leaflet thickening. There is trace mitral valve regurgitation. There is no mitral valve stenosis. Pulmonic Valve The pulmonic valve was not well visualized. Tricuspid Valve Likely normal tricuspid valve structure and function. There is trace tricuspid valve regurgitation. The right ventricular systolic pressure is normal. The right ventricular systolic pressure is 17 mmHg. Normal right atrial pressure. There is no evidence of pulmonary hypertension. Great Vessels The pulmonary artery was not well visualized. There is mild dilatation of the ascending aorta measuring 3.80 cm. Venous The inferior vena cava is normal in size and collapses greater than 50% with inspiration. Pericardium/Pleural There is no evidence of pericardial effusion. Prior Study Comparison No significant change compared to prior study dated: 09/20/2021. Measurements 2D Linear Measurements IVSd: 1.44 0.6-0.9/0.6-1.0 cm LVIDd: 4.92 3.9-5.3/4.2-5.9 cm LVIDd Index: 2.44 2.4-3.2/2.2-3.1 cm/m2 LVIDs: 3.30 2.0-3.6 cm LVPWd: 1.29 0.7-1.1 cm LA Diam: 3.00 2.7-3.8/3.0-4.0 cm LAIDs Index: 1.49 1.5-2.3 cm/m2 LV Mass: 341.75 67-162/88-224 g LV Mass Index: 169.18 43-95/49-115 g/m2 LVOT Diam: 2.10 3.0+(-)1.3 cm 2D Systolic Function EF 4C: 68.70 >55% EF 2C: 62.40 >55% EF BiP: 65.60 >55% Mitral Valve MV Pk E: 0.72 MV PK A: 0.98 MV Decel Time: 203.00 E/A: 0.70 E'Lateral: 7.83 E'Medial: 4.46 E/E' Med: 16.10 E/E' Lat: 9.20 PHT: 60.00 MVA PHT: 3.67 Decel Davison: 3.54 Aortic Valve AoV Pk Mina: 1.17 AoV Mn Mina: 0.79 AoV VTI: 0.26 AoV Pk Grad: 5.00 Aov Mn Grad: 3.00 DEVAN Cont.VTI: 2.82 AI Pk Mina: 3.15 AI Davison: 0.90 LVOT LVOT Pk Mina: 0.85 LVOT Mn Mina: 0.57 LVOT VTI: 0.21 LVOT Pk Grad: 3.00 LVOT Mn Grad: 1.00 LVOT Diam: 2.10 LVOT Area: 3.46 Diastolic Function MV Pk E: 0.72 MV Pk A: 0.98 E/A: 0.70 E'Medial: 4.46 E/E' Med: 16.10 E' Laterial: 7.83 E/E' Lat: 9.20 Right Ventricle TAPSE (mm): 17.40 TVS' Mina: 10.40 Tricuspid Valve TR Pk Mina: 1.84 TR Pk Grad: 14.00 RA Press: 3.00 RVSP: 17.00 Great Vessels Aorta Sinus of Valsalva: 3.70 2.0-3.5 cm Ao Asc: 3.80 2.1-3.4 cm Pulmonary Valve PV Pk Mina: 1.24 Peak PV Grad: 6.00 Updated in Other Vendor System with Status of Final Kanu Rendon MD electronically signed on 03/14/2024 1:24:13 PM with status of Final
[2024-03-14 07:24] LABS: Glucose, Whole Blood 88 mg/dL (60-115)
[2024-03-14 07:35] LABS: Estimated Average Glucose 126 mg/dL
--- NOTE | 2024-03-14 08:00 | PC.NURSE ---
patient resting quietly in bed, respirations equal and unlabored, skin dry and intact. patient alert and oriented x3. patient VSS.
--- NOTE | 2024-03-14 09:14 | PHA.MEDREC ---
Pharmacy Consult ? Medication Reconciliation Pharmacy has completed the medication reconciliation. Pt reports no longer taking amiodarone 200mg.
[2024-03-14] MEDS: Aspirin Enteric Coated 81 MG TABLET.DR PO (10:50)
[2024-03-14] MEDS: Clopidogrel Bisulfate 75 MG TABLET PO (10:50)
--- NOTE | 2024-03-14 12:03 | PM.NEUROCN ---
History of Present Illness Data of Consult Service Date: 03/14/24 Primary Care Provider: Unknown Physician HPI Reason for consult: Dizziness 89 years old man who had a 2nd episode of its kind bringing him to hospital. The 1st 1 happened in [place] last year and it was similar to this 1. He was driving yesterday and at 1 point the car was stopped when he became dizzy and could not see anything and became confused or unresponsive. This lasted for few seconds. He came to hospital last night and had nonspecific symptoms and was initially evaluated for acute stroke but after review of his symptoms and CT scan of his brain my suggestion was not to treat him with intravenous tPA or TNK. Now he was back to baseline. Previously he had coronary artery stenting and left carotid endarterectomy. He was known to have significant right carotid disease. Review of Systems Review of Systems: No recent cold or flu-like illness or trauma PMFSH Past Medical History Medical History CAD (coronary artery disease) Afib Preoperative cardiovascular examination Symptomatic stenosis of left carotid artery Prostate cancer History of trigger finger Arthritis Rectal cancer Bladder neck contracture GERD (gastroesophageal reflux disease) Urinary incontinence Obstructive sleep apnea Coronary artery disease Type 2 diabetes mellitus with hyperglycemia Small bowel obstruction Erectile dysfunction Overweight (BMI 25.0-29.9) Peripheral vascular disease Hematuria Constipation BPH (benign prostatic hyperplasia) Prostate cancer Colon cancer Dysuria Hyperlipidemia, unspecified Essential hypertension Family History Family History Father Pancreatic cancer Mother No problems noted. Brother Liver cancer Surgical History Surgical History (Reviewed 03/14/24 @ :24 by Dante Peña MD) History of left-sided carotid endarterectomy History of coronary artery stent placement History of exploratory laparotomy History of carpal tunnel release History of prostate surgery (~2017) History of bladder surgery (~01/04/18) History of colectomy History of appendectomy Social History Social History Household Members: Family Household Members Other:: Granddaughter Housing: House Are you a primary health care marketing specialist to a significant other at home: No Do you presently have visiting nurse or other home services: No Alcohol intake: never Comment: patient refusing bed alarm/alert&appropriate/uses can w/ ambulation Patient Tobacco Use Status: Never used Tobacco Tobacco use type: Cigar Smoked in Last 30 Days: No e-Cigarette/Vaping Use: Never Used Second Hand Smoke Exposure: No Use of substances other than those prescribed or required for medical reasons: No Have you been hit, kicked, punched, or otherwise hurt by someone within the past year? If so, by whom?: No Do you feel safe in your current relationship?: No Current Relationship Is there a partner from a previous relationship who is making you feel unsafe now?: No Are you made to feel afraid or neglected: No Advance Directives: Yes Advance Directives on File: Yes Advance Directives Date on File: 09/29/20 Do you have a plan to hurt others: No Plan Recently lost weight without trying: No Nutrition Risks: No Nutritional Risk Poor oral hygiene: No service: Yes Current occupational status: retired Cognitive needs: Yes (cane) Hearing needs: Yes (hearing aide) Vision needs: Yes (glasses) Meds Allergies Allergy/AdvReac Type Severity Reaction Status Date / Time diphenhydramine AdvReac Intermediate Hallucinati Verified 03/13/24 21:15 [From Benadryl] ons Active Medications: Current Medications Acetaminophen (Acetaminophen 325 Mg Tablet) 650 mg PO Q6H PRN PRN Reason: Fever, Headache, Pain 1-3 Aspirin (Aspirin Enteric Coated 81 Mg Tablet.) 81 mg PO DAILY [facility] Last Admin: 03/14/24 10:50 Dose: 81 mg Atorvastatin Calcium (Atorvastatin Calcium 40 Mg Tablet) 40 mg PO DAILY [facility] Clopidogrel Bisulfate (Clopidogrel Bisulfate 75 Mg Tablet) 75 mg PO DAILY [facility] Last Admin: 03/14/24 10:50 Dose: 75 mg Cyanocobalamin (Cyanocobalamin (Vitamin B-12) 1,000 Mcg Tablet) 1,000 mcg PO DAILY [facility] Lactulose (Lactulose 20 Gm/30 Ml Solution) 20 gm PO DAILY PRN PRN Reason: for constipation Metoprolol Tartrate (Metoprolol Tartrate 12.5 Mg Halftab) 12.5 mg PO BID [facility]; Protocol Sodium Chloride (0.9 % Sodium Chloride Flush 3 Ml Syringe) 3 ml IVFLUSH QSHIFT [facility] Last Admin: 03/14/24 07:45 Dose: Not Given Home Medications ?Medication ?Instructions ?Recorded ?Confirmed ?Last Taken ?Type aspirin 81 mg tablet,delayed 81 mg PO DAILY 12/01/22 03/14/24 03/13/24 09:00 History release cyanocobalamin (vitamin B-12) 1,000 mcg PO DAILY 12/01/22 03/14/24 03/13/24 09:00 History 1,000 mcg tablet docusate sodium 100 mg capsule 100 mg PO DAILY PRN Constipation 01/12/24 03/14/24 Unknown History amlodipine 2.5 mg tablet 7.5 mg PO BEDTIME 03/14/24 03/14/24 Unknown History metoprolol tartrate 25 mg tablet 12.5 mg PO BID 03/14/24 03/14/24 03/13/24 09:00 History Physical Exam Vital Signs: Vital Signs: Last Vital Signs Temp 97.5 F 03/14/24 07:59 Pulse 74 03/14/24 07:59 Resp 18 03/14/24 07:59 BP 144/66 H 03/14/24 07:59 Pulse Ox 97 03/14/24 07:59 O2 Del Method Room Air 03/14/24 07:59 BMI result Body Mass Index 28.1 Neuro: Other: He is alert and awake with normal spontaneity of speech fluency comprehension and affect. Face is symmetrical. Visual luciano are full. There is no pronator drift. [id number] testing is normal. Deep tendon reflexes are trace to absent with flat plantars. There is no focal weakness. Results Labs 03/14/24 05:55 03/14/24 05:55 Labs: Short CBC 03/13/24 03/14/24 Range/Units 21:40 05:55 WBC 7.0 8.1 (4.8-10.8) X10*3/uL Hgb 12.5 L 12.8 L (14.0-18.0) g/dl Hct 36.3 L 37.8 L (42.0-52.0) % Plt Count 246 253 (160-400) X10*3/uL BMP 03/13/24 03/14/24 21:40 05:55 Sodium 140 142 Potassium 3.7 3.7 Chloride 110 H 112 H Carbon Dioxide 20 L 21 L BUN 14 10 Creatinine 0.82 0.74 Calcium 8.7 9.0 Cardiac Enzymes 03/13/24 Range/Units 21:40 Total Creatine Kinase 53 (38-174) U/L Head CT revealed a small embolic looking cortical frontal chronic ischemic infarct. CTA revealed 90% right ICA stenosis. Assessment and Plan (1) Complex partial seizure disorder: Status: Acute 89 years old man with 2 similar episodes resulting in confusion, unresponsiveness, dizziness that was sense of motion or difficult to describe feeling, and loss of vision for few seconds. First episode was when he was in [place] the other happened yesterday. Examination is nonfocal. These clinical features are suggestive of complex partial seizure disorder. Finding of carotid disease and chronic small ischemic infarct are incidental. My recommendation is EEG in advised not to drive at this time. As far as carotid disease is concerned, baby aspirin, statin and blood pressure management is recommended Procedures Date of Service Date of Service: 03/14/24
--- NOTE | 2024-03-14 12:05 | MHC.CM.PN ---
PT REPORTS HE LIVES WITH HIS , DAUGHTER AND GRANDDAUGHTER HE IS INDEPENDENT WITH CARE AND USES A [facility] FOR DME PT HAS A HCP ON FILE PCP: SUN[facility] IMM DELIVERED DCP: TBD PENDING PT/OT [facility] HOME / [facility] PENDING DISPOSITION
--- NOTE | 2024-03-14 12:45 | PC.NURSE ---
patient moved into hospital bed for comfort, SCD applied to bilat lower legs
--- NOTE | 2024-03-14 14:47 | PC.NURSE ---
patient going to EEG
--- NOTE | 2024-03-14 16:31 | HO.PM.IMPN ---
Subjective Subjective Date of Service: 03/14/24 Interval History: seen and examined this morning follow up for dizziness/leg weakness initially thought to be due to possible TIA some ongoing leg weakness which has improved overall but otherwise patient feels improved Review of Systems Review of Systems: Yes all other systems are reviewed and are negative Constitutional Constitutional: Denies chills and Denies fever(s) ENT Ears, Nose, Mouth, and Throat: Denies dizziness Cardiovascular Cardiovascular: Denies chest pain and Denies dyspnea Respiratory Respiratory: Denies dyspnea Gastrointestinal Gastrointestinal: Denies abdominal pain Neurologic Neurologic: Denies dizziness Physical Exam Vital Signs: Vital Signs: Last Vital Signs Temp 97.5 F 03/14/24 07:59 Pulse 74 03/14/24 07:59 Resp 18 03/14/24 07:59 BP 144/66 H 03/14/24 07:59 Pulse Ox 97 03/14/24 07:59 O2 Del Method Room Air 03/14/24 07:59 BMI result Body Mass Index 28.1 Const: General: cooperative, comfortable, no acute distress, alert and awake Nutritional Appearance: overweight Orientation/consciousness: patient oriented x3 Resp: Effort & Inspection: normal respiratory effort, able to speak in complete sentences, no respiratory distress and no use of accessory muscles GI: Inspection: No distended Palpation (GI): Soft to palpation Neuro: General: patient oriented x3, moves all extremities and CN's II-XI intact bilaterally Extrem: General: Yes no pedal edema Objective Data Active Medications Acetaminophen (Acetaminophen 325 Mg Tablet) 650 mg PO Q6H PRN PRN Reason: Fever, Headache, Pain 1-3 Aspirin (Aspirin Enteric Coated 81 Mg Tablet.) 81 mg PO DAILY [facility] Last Admin: 03/14/24 10:50 Dose: 81 mg Documented By: MARTI Atorvastatin Calcium (Atorvastatin Calcium 40 Mg Tablet) 40 mg PO DAILY [facility] Clopidogrel Bisulfate (Clopidogrel Bisulfate 75 Mg Tablet) 75 mg PO DAILY [facility] Last Admin: 03/14/24 10:50 Dose: 75 mg Documented By: MARTI Cyanocobalamin (Cyanocobalamin (Vitamin B-12) 1,000 Mcg Tablet) 1,000 mcg PO DAILY [facility] Lactulose (Lactulose 20 Gm/30 Ml Solution) 20 gm PO DAILY PRN PRN Reason: for constipation Metoprolol Tartrate (Metoprolol Tartrate 12.5 Mg Halftab) 12.5 mg PO BID KRISTINE; Protocol Sodium Chloride (0.9 % Sodium Chloride Flush 3 Ml Syringe) 3 ml IVFLUSH QSHIFT KRISTINE Last Admin: 03/14/24 15:04 Dose: Not Given Documented By: MARTI Non-Admin Reason: in MRI Labs 03/14/24 05:55 03/14/24 05:55 Labs: Laboratory Results - last 24 hr 03/13/24 03/13/24 03/14/24 21:05 21:40 05:55 MCV 84.0 85.7 MCH 28.9 29.0 MCHC 34.4 33.9 RDW 12.8 12.7 Plt Count 246 253 MPV 9.4 9.6 Immature Gran % (Auto) 0.6 H Neut % (Auto) 59.7 Lymph % (Auto) 26.8 Stearns % (Auto) 8.4 Eos % (Auto) 4.1 H Baso % (Auto) 0.4 Lymph # (Auto) 1.9 Stearns # (Auto) 0.6 Eos # (Auto) 0.3 Baso # (Auto) 0.0 Abs Immat Gran (auto) 0.04 H Absolute Neuts (auto) 4.2 Absolute Nucleated RBC 0.000 0.000 Nucleated RBC % (auto) 0.0 0.0 PT 12.3 INR 1.0 APTT 32.7 Anion Gap 14 13 Estim Creat Clear Calc 67.7 75.0 Estimated GFR > 60 > 60 POC Glucose 126 H Random Glucose 137 H 112 Estimat Average Glucose 126 Hemoglobin A1c % 6.0 Calcium 8.7 9.0 Total Creatine Kinase 53 Troponin I High Sens 8.2 D Hold Yellow Top See Note 03/14/24 07:21 MCV MCH MCHC RDW Plt Count MPV Immature Gran % (Auto) Neut % (Auto) Lymph % (Auto) Stearns % (Auto) Eos % (Auto) Baso % (Auto) Lymph # (Auto) Stearns # (Auto) Eos # (Auto) Baso # (Auto) Abs Immat Gran (auto) Absolute Neuts (auto) Absolute Nucleated RBC Nucleated RBC % (auto) PT INR APTT Anion Gap Estim Creat Clear Calc Estimated GFR POC Glucose 88 Random Glucose Estimat Average Glucose Hemoglobin A1c % Calcium Total Creatine Kinase Troponin I High Sens Hold Yellow Top Assessment and Plan (1) Complex partial seizure disorder: Status: Acute (2) Bilateral carotid artery stenosis: Status: Acute Plan This is a 89 y/o male with multiple medical issues admitted for weakness and dizziness Left lower extremity weakness associated with vertigo-like symptoms. Acute versus subacute CVA on brain CT; CTA appears chronic. reported stroke in september. Continue Plavix, aspirin and statin seen by PT and OT evaluation- recommend home with services Echocardiogram with bubble study- no sign of intra-atrial shunt Seen by Neurology more suggestive of complex partial seizure, EEG recommended and ordered; avoid driving etc for now Monitor on telemetry Severe carotid artery disease/severe right ICA s/p recent left carotid artery endarterectomy (Dec 04). Vascular consult pending CAD. s/p NICOLE RCA Oct 2023, continue aspirin, Plavix and statin. Essential hypertension. Continue metoprolol, norvasc Type 2 diabetes mellitus. Diet controlled. Diabetic diet. BG checks before meals and bedtime --> pt denies being diabetic, hba1c 6.0, previous 5.6 outpatient follow up with PCP Hyperlipidemia. Continue statin. Obstructive sleep apnea. Patient reports does not require CPAP. DVT prophylaxis: SCDs. On Plavix and aspirin. Code status: Full Requires ongoing inpatient hospitalization for EEG, specialist evaluation Patient will also need close monitoring of neuro status and vital signs. Quality Stroke Does the patient have a stroke diagnosis?: Yes Reason for No Anti-thrombotic by Day Two: N/A - Med Ordered VTE Prior VTE?: No VTE Risk Level:: Medical - moderate - high VTE Device Contraindication: N/A - Device Ordered VTE Drug Contraindication: N/A - Med Ordered
--- NOTE | 2024-03-14 16:40 | PC.NURSE ---
patient is alert and oriented x3, went for EEG. patient VSS, respirations equal and unlabored, skin dry and itact. patient has bilat lower SCDS.
[2024-03-14 20:23] LABS: Glucose, Whole Blood 97 mg/dL (60-115)
[2024-03-14] MEDS: amLODIPine Besylate 2.5 MG TABLET 7.5 MG PO (21:02)
[2024-03-14] MEDS: Metoprolol Tartrate 12.5 MG HALFTAB PO (21:02)
[2024-03-15 04:00] VITALS: BP 119/66; PULSE 64; RESP 21; TEMP 36.4; O2SAT 96
[2024-03-15] MEDS: 0.9 % Sodium Chloride Flush 3 ML SYRINGE IVFLUSH ×2 (05:28→08:02)
[2024-03-15 07:23] LABS: Cholesterol 90 mg/dL (<200); HDL Cholesterol 37 mg/dL (>40); LDL Cholesterol Calculated 38 mg/dL (<100); Triglycerides 78 mg/dL (<150)
[2024-03-15 07:30] LABS: Glucose, Whole Blood 92 mg/dL (60-115)
[2024-03-15 07:31] VITALS: BP 146/70; PULSE 55; RESP 18; TEMP 36.3; O2SAT 97
[2024-03-15] MEDS: Atorvastatin Calcium 40 MG TABLET PO (08:01)
[2024-03-15] MEDS: Clopidogrel Bisulfate 75 MG TABLET PO (08:01)
[2024-03-15] MEDS: Cyanocobalamin (Vitamin B-12) 1,000 MCG TABLET 1000 MCG PO (08:02)
[2024-03-15] MEDS: Aspirin Enteric Coated 81 MG TABLET.DR PO (08:02)
--- NOTE | 2024-03-15 09:27 | MHC.CM.PN ---
PT is recommending home/with services. A referral has been made to [facility] and CM will continue to follow.
[2024-03-15 11:08] VITALS: BP 112/57; PULSE 59; RESP 19; TEMP 36.3; O2SAT 97
[2024-03-15 11:24] LABS: Glucose, Whole Blood 125 mg/dL (60-115)
[2024-03-15] MEDS: levETIRAcetam 250 MG TABLET PO (11:44)
--- NOTE | 2024-03-15 12:21 | PM.DS ---
DS: Providers Provider Date of Service: 03/15/24 Date of admission: 03/14/24 01:03 Date of discharge: 03/15/24 Primary care physician: Unknown Physician Consults: 03/14/24 01:05 Consult to Neurology Routine Consulting Provider: Josie Kelly Reason for consultation: left lower extremity weakess Has provider been notified: Yes 03/14/24 01:35 Consult to Vascular Surgery Routine Consulting Provider: Federico Shen Reason for consultation: Stroke symptoms, severe right ICA disease Has provider been notified: No Attending physician on discharge: Mich Bhatti Discharging clinician: Aida Magana DS: Diagnosis Discharge Diagnosis (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 He also complained of associated heaviness to the lower extremities. He denied headache, acute visual disturbances, vomiting, palpitations, speech difficulty, , swallowing difficulty, facial weakness/numbness or upper extremity weakness/numbness. He also denied any acute cardiopulmonary, gastrointestinal or genitourinary symptoms. Patient stated that he was recently diagnosed with TIA in [place]. He takes Plavix and aspirin. Denies tobacco smoking, alcohol abuse or illicit drug use. In the ED, he was found to have stable vital signs. Blood pressure is 150/77. Blood workup showed no leukocytosis. Hemoglobin is 12.5. Platelets are normal. There are no significant electrolyte imbalances. Creatinine is 0.82. Troponin is 8.2. Head and neck CTA showed hypodense focus involving the right frontal lobe/presented gyrus suggestive of subacute versus acute stroke, stable severe atheromatous disease at the origin of the right internal carotid artery with an approximate 90% stenosis and no significant stenosis of the intracranial vasculature. Left lower extremity weakness associated with vertigo-like symptoms. Acute versus subacute CVA on brain CT; CTA appears chronic. reported stroke in september. seen by PT and OT evaluation- recommend home with services. Continued on baseline doses of aspirin, Plavix, statin. LDL low at 38. Echocardiogram with bubble study- no sign of intra-atrial shunt Seen by Neurology more suggestive of complex partial seizure, EEG recommended, and does not show any abnormalities but did recommend starting Keppra 250 mg twice daily. Recommend to avoid driving, bathing alone etcetera until outpatient follow-up/6 months symptom free. We will need outpatient follow-up with Neurology Severe carotid artery disease/severe right ICA s/p recent left carotid artery endarterectomy (Dec 04). Seen by vascular surgery. Plan for outpatient follow-up for right carotid endarterectomy Time Attestation Discharge Coordination Time (in mins): 36 Quality: Safe Use of Opioids Does Pt have an Active Cancer Diagnosis on the Problem List?: No Quality: Stroke Does the patient have a stroke diagnosis?: No Physical Exam Vital Signs: Vital Signs: Last Vital Signs Temp 97.3 F 03/15/24 11:08 Pulse 59 03/15/24 11:08 Resp 19 03/15/24 11:08 BP 112/57 L 03/15/24 11:08 Pulse Ox 97 03/15/24 11:08 O2 Del Method Room Air 03/15/24 11:08 BMI result Body Mass Index 28.1 Const: General: cooperative, comfortable, no acute distress, alert and awake Nutritional Appearance: overweight Orientation/consciousness: patient oriented x3 Resp: Effort & Inspection: normal respiratory effort, able to speak in complete sentences, no respiratory distress and no use of accessory muscles GI: Inspection: No distended Palpation (GI): Soft to palpation Neuro: General: patient oriented x3, moves all extremities and CN's II-XI intact bilaterally Extrem: General: Yes no pedal edema DS: Data Data Completed and Pending Completed studies during hospitalization [Text1]: Procedures Dilation of Bladder Neck, Via Natural or Artificial Opening Endoscopic (09/30/20) Drainage of Bladder with Drainage Device, Via Natural or Artificial Opening Endoscopic (09/30/20) Extirpation of Matter from Left External Carotid Artery, Open Approach (12/02/23) Insertion of Infusion Device into Superior Vena Cava, Percutaneous Approach (08/27/20) Supplement Left Internal Carotid Artery with Synthetic Substitute, Open Approach (12/02/23) Ultrasonography of Superior Vena Cava, Guidance (08/27/20) Labs on day of discharge: Laboratory Results - last 24 hr 03/14/24 03/15/24 03/15/24 20:15 06:21 07:15 Hold Purple Top SEE NOTE POC Glucose 97 92 Triglycerides 78 Cholesterol 90 LDL Cholesterol, Calc 38 HDL Cholesterol 37 L 03/15/24 11:10 Hold Purple Top POC Glucose 125 H Triglycerides Cholesterol LDL Cholesterol, Calc HDL Cholesterol Discharge Plan Discharge Anticipated Discharge Date/Time: 03/15/24 12:14 Patient Disposition: Home Health Service Discharge Diagnosis: Partial complex seizure Referrals: Aditya HOPKINS [Outside] - 1 Week Josie Kelly MD [Physician] - 1 Week Physician,Bea J [Primary Care Provider] - 1 Week Discharge Medications: New levetiracetam 250 mg Tablet 250 mg PO BID 90 Days Qty: 180 0RF Continued lactulose 10 gram/15 mL solution 30 ml PO DAILY PRN (Reason: for constipation) Qty: 946 0RF rosuvastatin 10 mg tablet 10 mg PO DAILY Qty: 90 3RF cyanocobalamin (vitamin B-12) 1,000 mcg Tablet 1,000 mcg PO DAILY aspirin 81 mg Tablet,Delayed Release (Dr/Ec) 81 mg PO DAILY docusate sodium 100 mg capsule 100 mg PO DAILY PRN (Reason: Constipation) metoprolol tartrate 25 mg tablet 12.5 mg PO BID amlodipine 2.5 mg tablet 7.5 mg PO BEDTIME clopidogrel 75 mg tablet 75 mg PO DAILY Qty: 90 3RF Discharge Orders: Discharge Order (Routine); Ordered 03/15/24 Ordered By: Aida Magana Activity on Discharge: no driving Stand Alone Forms: Patient Portal Discharge page Print Language: Macedonian Care Plan Goals: See below Health Concerns: Probable complex partial seizure h/o stroke Plan of Treatment: Recommend to start Keppra 250 mg twice daily Recommend outpatient follow-up with Neurology as well as your PCP for close monitoring Recommend to avoid driving; swimming/bathing alone Physical therapy has recommended home physical therapy services Assessment: See discharge summary
--- NOTE | 2024-03-15 12:25 | MHC.CM.PN ---
Patient has been medically cleared for dc to home today, with services. [facility] referral was [facility] to [facility], who has been made aware of today's dc. Last IMM addressed yesterday.
--- NOTE | 2024-03-15 12:30 | P.F2F_ITS ---
Service Date Service Date: 03/15/24 Encounter Date of encounter: 03/15/24 Reasons for Services Signs and symptoms assessed: Recommend home PT/OT services to maximize function and safety at home for transfer, gait training, therapeutic exercise, safety, balance Reason for physical therapy: home safety and mobility and therapeutic exercises Overseeing Care: Pro Nunn Homebound: Leaving the home is medically contraindicated at this time without the asist of a device and/or another person due th the listed conditions above and below. Reason homebound: unsteady gait / fall risk Certification: Based on the above findings, I certify that this patient is confined to the home and needs intermittent group home care, physical therapy and/or speech therapy, or continues to need occupational therapy. The patient is under my care, and I have initiated the establishment of the plan of care. The patient will be followed by a physician who will periodically review the plan of care. Time Spent With Patient Time: Total time managing care of this patient today ____ minutes.
--- NOTE | 2024-03-15 13:01 | P.PNVS_ITS ---
Subjective Subjective Date of Service: 03/15/24 Patient reports: no new complaints Interval history: Very pleasant 89-year-old gentleman who had a previous left carotid endarterectomy with us presented to the hospital with an episode of generalized weakness. He was subsequently worked up. The question became of whether this was a stroke versus a seizure episode. He reports he is doing fairly well now no other interval issues. Now presents for follow-up. Of note he has had a repeat CT angiogram which did demonstrate high-grade right carotid stenosis of nearly 90%. Physical Exam Vital Signs: Vital Signs: Last Vital Signs Temp 97.3 F 03/15/24 11:08 Pulse 59 03/15/24 11:08 Resp 19 03/15/24 11:08 BP 112/57 L 03/15/24 11:08 Pulse Ox 97 03/15/24 11:08 O2 Del Method Room Air 03/15/24 11:08 BMI result Body Mass Index 28.1 Const: General: cooperative, healthy appearing and comfortable Or ientation/consciousness: oriented to person, oriented to place and oriented to time HEENT: Head: Yes normal to inspection Neck: Neck: Yes normal visual inspection Carotids: no bruits Chest: Chest palpation & inspection: normal inspection of the chest Resp: Effort & Inspection: normal respiratory effort and able to speak in complete sentences Auscultation: clear to auscultation bilaterally, no crackles, no rales, no rhonchi and no wheezes Cardio: Rate: regular rate Rhythm: regular rhythm Heart sounds: S1 normal heart sound present and S2 normal heart sound present Bruits: no ca rotid bruits Peripheral pulses: Peripheral pulses 2+ throughout GI: Inspection: Yes normal to inspection Skin: Other: Left neck incision well healed Wounds: no wounds Hair: normal Neuro: General: oriented to person, oriented to place and oriented to time Cranial nerves: Yes CN's II-XII intact bilaterally and Yes Normal hearing present Cognition (Neuro): normal cognition Motor exam (neuro): 5/5 motor strength present throughout Extrem: Other: venous exam: No significant superficial varicosities or spider telangiectasias, minimal edema General: No clubbing, No cyanosis and No edema Psych: Appearance: grossly normal Mental Status: mental status grossly normal Speech and movement: Normal speech and movement present Progress Note: A&P Assessment and plan (1) Bilateral carotid artery stenosis: Status: Acute Assessment and Plan: In short patient has high-grade right carotid stenosis. I do believe that he is being treated for his seizure and told not to drive. This upset him quite a bit. He seems to be doing better with that. Nonetheless his right carotid is high-grade. This does need to be treated. He has had recent cardiac risk stratification. Will require right carotid endarterectomy. Risks benefits complications of the procedure were discussed in detail with the patient and the patient's family who was on the phone. Will be most likely scheduled for April 01. Thank you for allowing us to assist in his care. If there are any questions or concerns please do not hesitate to contact us. Time Spent With Patient Time: Total time managing care of this patient today ____ minutes. Procedures Date of Service Date of Service: 03/15/24 Quality Stroke Does the patient have a stroke diagnosis?: No Reason for No Anti-thrombotic by Day Two: N/A - Med Ordered VTE Prior VTE?: No VTE Risk Level:: Medical - moderate - high VTE Device Contraindication: N/A - Device Ordered VTE Drug Contraindication: N/A - Med Ordered
== END 2024-03-15 14:51 | disposition home health service (06) | DRG 101 ==
LOC: HO.ED 21:23 → HO.EDOVER 03-14 01:09 → HO.IMC 03-14 16:39
PROVIDERS: Admitting Provider Internal Medicine; Emergency Provider Internal Medicine; PCP Internal Medicine; Visit Provider Physician Assistant Medical
DX: G40.209 Localization-related (focal) (partial) symptomatic epilepsy and epileptic syndromes with complex partial seizures, not intractable, without status epilepticus (principal); I25.10 Atherosclerotic heart disease of native coronary artery without angina pectoris; I65.21 Occlusion and stenosis of right carotid artery; E11.9 Type 2 diabetes mellitus without complications; E78.5 Hyperlipidemia, unspecified; G47.33 Obstructive sleep apnea (adult) (pediatric); Z86.73 Personal history of transient ischemic attack (TIA), and cerebral infarction without residual deficits; Z85.038 Personal history of other malignant neoplasm of large intestine; Z95.5 Presence of coronary angioplasty implant and graft; Z85.46 Personal history of malignant neoplasm of prostate; Z79.02 Long term (current) use of antithrombotics/antiplatelets; Z79.899 Other long term (current) drug therapy
CPT/HCPCS: 36415; 70450; 70496; 70498; 80048; 80061; 82550; 82947; 83036; 84484; 85025; 85027; 85610; 85730; 93005; 93306; 95816; 97162; 97166; 97535; 99285; Q9957; Q9967

== ENCOUNTER → 2024-03-13 21:05 | Outpatient (BNV) | payer MEDICARE, OTHER, SELFPAY | PROVIDERS: Admitting Provider Internal Medicine; Emergency Provider Internal Medicine; Visit Provider Internal Medicine Cardiovascular Disease | DX: R94.31 Abnormal electrocardiogram [ECG] [EKG] (principal) | CPT/HCPCS: 93010 ==

== ENCOUNTER 2024-03-14 01:03 | Outpatient (BNV) | payer MEDICARE, OTHER, SELFPAY | END 2024-03-14 07:00 | PROVIDERS: Admitting Provider Internal Medicine; Emergency Provider Internal Medicine; Visit Provider Internal Medicine Cardiovascular Disease | DX: I35.1 Nonrheumatic aortic (valve) insufficiency (principal) | CPT/HCPCS: 93306 ==

== ENCOUNTER → 2024-03-14 01:03 | Outpatient (BNV) | payer MEDICARE, OTHER, SELFPAY | PROVIDERS: Admitting Provider Internal Medicine; Emergency Provider Internal Medicine; Visit Provider Psychiatry & Neurology Neurology | DX: G40.209 Localization-related (focal) (partial) symptomatic epilepsy and epileptic syndromes with complex partial seizures, not intractable, without status epilepticus (principal) | CPT/HCPCS: 99222 ==

== ENCOUNTER → 2024-03-14 01:03 | Outpatient (BNV) | payer MEDICARE, OTHER, SELFPAY | PROVIDERS: Admitting Provider Internal Medicine; Emergency Provider Internal Medicine; Visit Provider Internal Medicine | DX: G40.209 Localization-related (focal) (partial) symptomatic epilepsy and epileptic syndromes with complex partial seizures, not intractable, without status epilepticus (principal); I65.23 Occlusion and stenosis of bilateral carotid arteries | CPT/HCPCS: 99223; 99239; 99499; G0180 ==

== ENCOUNTER → 2024-03-14 01:03 | Outpatient (BNV) | payer MEDICARE, OTHER, SELFPAY | PROVIDERS: Admitting Provider Internal Medicine; Emergency Provider Internal Medicine; Visit Provider Surgery Vascular Surgery | DX: I65.23 Occlusion and stenosis of bilateral carotid arteries (principal) | CPT/HCPCS: 99232 ==

== ENCOUNTER 2024-03-22 08:51 | Outpatient (REF) | payer MEDICARE, OTHER, SELFPAY ==
[2024-03-22 09:07] LABS: MANUAL DIFF FLAG NO
[2024-03-22 09:15] LABS: Basophils Absolute Auto 0.1 X10*3/uL (0.0-0.2); Basophils Percent Auto 0.5 % (0-2); Eosinophils Absolute Auto 0.5 X10*3/uL (0.0-0.4); Hematocrit 39.1 % (42.0-52.0); Hemoglobin 13.1 g/dl (14.0-18.0); Imm Gran Abs Auto 0.04 X10*3/uL (0.00-0.03); Imm Gran Pct Auto 0.4 % (0.0-0.4); Lymphocytes Absolute Auto 2.5 X10*3/uL (1.2-4.9); Lymphocytes Percent Auto 25.4 % (20-40); Mean Corpuscular HGB Conc 33.5 g/dl (31.0-36.0); Mean Corpuscular Hemoglobin 28.7 pg (27.0-33.0); Mean Corpuscular Volume 85.6 fL (80.0-98.0); Mean Platelet Volume 9.7 fL (9.4-12.4); Monocytes Absolute Auto 0.9 X10*3/uL (0.1-1.2); Monocytes Percent Auto 8.8 % (2-11); Neutrophils Absolute Auto 5.9 x10*3/uL (2.0-8.3); Neutrophils Percent Auto 59.9 % (45-73); Platelet Count 267 X10*3/uL (160-400); Red Blood Count 4.57 X10*6/uL (4.60-5.80); Red Cell Distribution Width 13.2 % (11.0-16.0); White Blood Count 9.9 X10*3/uL (4.8-10.8)
[2024-03-22 09:27] LABS: Estimated Average Glucose 128 mg/dL; Hemoglobin A1c % 6.1 % (<6.0)
[2024-03-22 09:55] LABS: Alanine Aminotransferase 12 U/L (0-40); Albumin Level 3.8 g/dL (3.5-5.0); Alkaline Phosphatase 79 U/L (39-117); Anion Gap 11 (12-20); Aspartate Amino Transferase 13 U/L (5-37); Bilirubin Total 0.3 mg/dL (0.0-1.0); Blood Urea Nitrogen 14 mg/dL (9-16); Calcium 9.2 mg/dL (8.4-10.2); Carbon Dioxide 25 mmol/L (22-29); Chloride 110 mmol/L (96-108); Cholesterol 103 mg/dL (<200); Estimated Glomerular Filt Rate > 60; Glucose Random 112 mg/dL (60-115); HDL Cholesterol 41 mg/dL (>40); Iron 50 mcg/dL (45-160); LDL Cholesterol Calculated 50 mg/dL (<100); Percent Iron Saturation 20 % (15-50); Potassium 4.2 mmol/L (3.3-5.1); Sodium 142 mmol/L (135-145); Total Iron Binding Capacity 254 mcg/dL (228-428); Total Protein 6.3 g/dL (6.5-8.0); Triglycerides 63 mg/dL (<150); Unsaturated Iron Binding 204 ug/dL
[2024-03-22 10:15] LABS: Ferritin 44 ng/mL (20-250); Free T4 (Free Thyroxine) 1.01 ng/dL (0.71-1.85); Thyroid Stimulating Hormone 2.49 uIU/mL (0.32-4.0)
[2024-03-22 11:15] LABS: Folate 9.3 ng/mL (> or = 4.0); Vitamin B12 547 pg/mL (200-900)
[2024-03-22 11:19] LABS: Creatinine Urine 249.38 mg/dL; Microalbum/Creatinine Ratio Ur 46.9 ug/mg cr (<30)
== END 2024-03-22 08:52 | disposition home or self-care (01) ==
LOC: HO.LAB 08:51
PROVIDERS: PCP Internal Medicine; Visit Provider Internal Medicine
DX: E11.65 Type 2 diabetes mellitus with hyperglycemia (principal); C61 Malignant neoplasm of prostate; E78.00 Pure hypercholesterolemia, unspecified
CPT/HCPCS: 36415; 80053; 80061; 82043; 82570; 82607; 82728; 82746; 83036; 83540; 84439; 84443; 85025

== ENCOUNTER 2024-03-28 16:45 | Outpatient (AMB) | payer MEDICARE, OTHER, SELFPAY ==
[2024-03-28 16:49] VITALS: BP 130/60; PULSE 50; O2SAT 97; BMI 24.0
--- NOTE | 2024-03-28 16:49 | MHC.PC.OV ---
Vital Signs 03/28/24 16:49 Height 6 ft 2 in Weight 187 lb BMI 24.0 BP 130/60 Blood Pressure Location Lt brachial Position Sitting Pulse 50 Pulse Source Pulse Oximeter Pulse Oximetry (%) 97 Oxygen Delivery Method Room Air Intake Visit Reasons: [facility] Intake Note: Patient is here for hospital discharge follow up. Patient was discharged from [facility] on 03/15/24 Family Lawyer Required: No Allergies diphenhydramine [From Benadryl] Adverse Reaction (Intermediate, Verified 03/28/24 17:27) Hallucinations Medication List - Last Reconciled 03/28/24 by Pro Nunn MD amlodipine 7.5 mg PO BEDTIME aspirin 81 mg PO DAILY clopidogrel 75 mg PO DAILY cyanocobalamin (vitamin B-12) 1,000 mcg PO DAILY docusate sodium 100 mg PO DAILY PRN lactulose 30 mL PO DAILY PRN levetiracetam 250 mg PO BID 90 days metoprolol tartrate 12.5 mg PO BID rosuvastatin 10 mg PO DAILY Tobacco use date assessed: 02/12/24 Fall risk assessment: No Falls in past year Last assessed Fall Risk: 03/28/24 Dental Screening Dental Screen Date: 02/12/24 HPI [facility] HDF HPI Details 89-year-old male with multiple medical problems history of prostate and colon cancer coronary artery disease GERD hypertension history of CVA bilateral carotid artery stenosis carpal tunnel syndrome last seen in 02/17/2024. Recently discharged March 15 dizziness with lower extremity weakness. Was in [place] and was diagnosis having TIA CT scan CTA showing focus on the right frontal lobe /gyrus suggestive of subacute versus acute stroke stable severe atheromatous disease at the origin of the right internal carotid approximate 90% stenosis and no significant stenosis of the intra cranial vasculature left lower extremity weakness associated with dizziness acute versus subacute CVA on brain CT presently on aspirin and Plavix and statins no sign of intra-atrial shunt seen by Neurology suggestive of complex partial seizure on EEG started on Keppra 250 mg twice a day severe carotid artery disease severe right ICA status post recent left carotid endarterectomy December 04 planned right carotid endarterectomy March 06 patient was seen by Cardiology also for risk stratification intermediate cardiac risk on dual antiplatelet. Patient also sees Urology for prostate cancer and bladder neck contraction has multiple episodes of small-bowel obstruction had hemorrhagic cystitis post procedure patient has had laser as well as cystoscopy. PAltient is for CArotid endarterectomy R had blood work done PENDING SALE TO [facility] Medical History (Updated 03/28/24 @ 17:24 by Pro Nunn MD) CAD (coronary artery disease) Afib CVA (cerebral vascular accident) Self-catheterizes urinary bladder History of trigger finger Arthritis Preoperative cardiovascular examination Symptomatic stenosis of left carotid artery Rectal cancer Bladder neck contracture GERD (gastroesophageal reflux disease) Urinary incontinence Obstructive sleep apnea Coronary artery disease Type 2 diabetes mellitus with hyperglycemia Small bowel obstruction Erectile dysfunction Overweight (BMI 25.0-29.9) Peripheral vascular disease Prostate cancer Hematuria Constipation BPH (benign prostatic hyperplasia) Prostate cancer Colon cancer Dysuria Hyperlipidemia, unspecified Essential hypertension Surgical History History of left-sided carotid endarterectomy History of coronary artery stent placement History of exploratory laparotomy History of carpal tunnel release History of prostate surgery (~2016) History of bladder surgery (~01/04/18) History of colectomy History of appendectomy Family History Father Pancreatic cancer Mother No problems noted. Brother Liver cancer Social History (Updated 03/28/24 @ 16:27 by Izabela Cedillo RN) Household Members: Family Household Members Other:: Granddaughter Housing: House Are you a primary clinical care coordinator to a significant other at home: No Do you presently have visiting nurse or other home services: No Alcohol intake: never Comment: patient refusing bed alarm/alert&appropriate/uses can w/ ambulation Patient Tobacco Use Status: Former Tobacco user Tobacco use type: Cigarette e-Cigarette/Vaping Use: Never Used Second Hand Smoke Exposure: No Advance Directives Date on File: 09/29/20 service: No Current occupational status: retired Cognitive needs: Yes (cane) Hearing needs: Yes (hearing aide) Vision needs: Yes (glasses) Questionnaire Thrive Questionnaire Date Thrive assessed: 03/14/24 AUDIT C Alcohol Use Questionnaire (AUDIT-C) 1. How often do you have a drink containing alcohol?: Never Total Score: 0 NALINI-7 AMB Questionnaire NALINI-7 Date NALINI - 7 assessed: 02/12/24 Source: Developed by Drs. Chaim Escalera, Angy Pereira, Heriberto Wick and colleagues, with an educational marycarmen from [employer] Plan. Physical exam (Primary Care) Vital Signs: Last Vital Signs Pulse 50 03/28/24 16:49 BP 130/60 03/28/24 16:49 Pulse Ox 97 03/28/24 16:49 Oxygen Delivery Method Room Air 03/28/24 16:49 BMI result Body Mass Index 24.0 Tobacco/Smoking Status: Tobacco use Status Tobacco use date assessed 02/12/24 03/28/24 16:54 Patient Tobacco Use Status Former Tobacco user 03/28/24 16:54 Tobacco use type Cigarette 03/28/24 16:54 e-Cigarette/Vaping Use Never Used 03/28/24 16:54 Thrive Assessment: Date of Thrive Assessment Date Thrive assessed 03/14/24 03/28/24 16:54 Const General: alert; No acute distress Eyes Conjunctivae: conjunctivae normal Resp Auscultation: clear to auscultation bilaterally Cardio Rate: regular rate Rhythm: regular rhythm GI Inspection: Yes normal to inspection Extrem General: Yes normal to inspection and No edema Assessment and Plan Assessment & Plan (1) Complex partial seizure disorder: Code(s): G40.209 - Localization-related (focal) (partial) symptomatic epilepsy and epileptic syndromes with complex partial seizures, not intractable, without status epilepticus Plan: Patient was started on Keppra (2) Bilateral carotid artery stenosis: Comment: 12/04/2023 left carotid endarterectomy Code(s): I65.23 - Occlusion and stenosis of bilateral carotid arteries Plan: Patient has a planned carotid endarterectomy right next week. Received notes from Cardiology and risk stratification intermediate risk group. Continue with blood pressure medication as well as seizure medication. Has advised aspirin as well as Plavix to continue and if bleeding risks may stop the Plavix 5 days before the procedure. No further workup needed at this time thank you very much for letting me participate the care of this patient. (3) Bladder neck stricture: Comment: status post incision bladder neck contracture with laser, cystoscopy Dr. Hein September 2020 Code(s): N32.0 - Bladder-neck obstruction Plan: Continue to follow-up with urology (4) Essential hypertension: Code(s): I10 - Essential (primary) hypertension Plan: Continue with blood pressure medication. Decrease salt intake and exercise on amlodipine 7.5 mg once a day metoprolol 12.5 mg twice a day (5) GERD (gastroesophageal reflux disease): Code(s): K21.9 - Gastro-esophageal reflux disease without esophagitis Qualifiers: Esophagitis presence: without esophagitis Qualified Code(s): K21.9 - Gastro-esophageal reflux disease without esophagitis Plan: Avoid the foods that causes that usually spicy foods, tomato products, juices, coffee, soda and foods that your sensitive to. After eating do not lie down, allow 3-4 hours before in lie down. And keep the head of bed above 30 degrees to avoid the acid from going up. (6) Hyperlipidemia, unspecified: Code(s): E78.5 - Hyperlipidemia, unspecified Qualifiers: Hyperlipidemia type: unspecified Qualified Code(s): E78.5 - Hyperlipidemia, unspecified Plan: Avoid fried foods, chicken skin, eggs, butter margarine, pastries and meat. Be it pork or beef they have a lot of cholesterol on rosuvastatin 10 mg once a day (7) Afib: Code(s): I48.91 - Unspecified atrial fibrillation Plan: Presently on clopidogrel and aspirin (8) CAD (coronary artery disease): Code(s): I25.10 - Atherosclerotic heart disease of [place] coronary artery without angina pectoris Plan: Control the cholesterol, weight, blood pressure on aspirin and Plavix (9) CVA (cerebral vascular accident): Code(s): I63.9 - Cerebral infarction, unspecified Qualifiers: CVA mechanism: unspecified Qualified Code(s): I63.9 - Cerebral infarction, unspecified Plan: Continuing on aspirin and Plavix Coding Level of Care Code Est Pt Level 4 (73831) Complex EM visit Add On G2211 Diagnoses Complex partial seizure disorder G40.209 Bilateral carotid artery stenosis I65.23 Bladder neck stricture N32.0 Essential hypertension I10 Gastroesophageal reflux disease without esophagitis K21.9 Esophagitis presence: without esophagitis Hyperlipidemia, unspecified hyperlipidemia type E78.5 Hyperlipidemia type: unspecified Afib I48.91 CAD (coronary artery disease) I25.10 Cerebrovascular accident (CVA), unspecified mechanism I63.9 CVA mechanism: unspecified
== END 2024-03-28 17:42 | disposition home or self-care (01) ==
PROVIDERS: PCP Internal Medicine; Visit Provider Internal Medicine
DX: G40.209 Localization-related (focal) (partial) symptomatic epilepsy and epileptic syndromes with complex partial seizures, not intractable, without status epilepticus (principal); I65.23 Occlusion and stenosis of bilateral carotid arteries; N32.0 Bladder-neck obstruction; I10 Essential (primary) hypertension; K21.9 Gastro-esophageal reflux disease without esophagitis; E78.5 Hyperlipidemia, unspecified; I48.91 Unspecified atrial fibrillation; I25.10 Atherosclerotic heart disease of native coronary artery without angina pectoris; I63.9 Cerebral infarction, unspecified
CPT/HCPCS: 99214; G2211

== ENCOUNTER 2024-04-01 07:36 | Inpatient (IN) | payer MEDICARE, OTHER, SELFPAY ==
[2024-03-28 12:12] VITALS: BMI 23.1
--- NOTE | 2024-03-29 10:35 | P.CONAN_ITS ---
Documented by User: Carlene Mejia NP 03/29/24 10:52 HPI - Anesthesia Eval Consult details Narrative: 89yo M for Right Carotid Endarterectomy s/p left side 11/2023 with GA-ETT 7.5 Cardiac optimized Patient unable to attend [facility]. See by PCP 03/28/24 [facility] Active Problems Active Problems: All Active Problems Hyperlipidemia, unspecified (Acute) Afib (Acute) CAD (coronary artery disease) (Acute) CVA (cerebral vascular accident) (Acute) Complex partial seizure disorder (Acute) Carpal tunnel syndrome on both sides (Acute) Bradycardia (Acute) Bilateral carotid artery stenosis (Acute) Cough (Acute) Right knee pain (Acute) Hypotension (Acute) Screening for eye condition (Acute) Medicare annual wellness visit, initial (Acute ~09/28/21) Bacteremia (Acute) Bladder neck stricture (Acute) Acute retention of urine (Acute) Chronic UTI (urinary tract infection) (Acute) Essential hypertension (Acute) Constipation (Acute) GERD (gastroesophageal reflux disease) (Acute) Overweight (BMI 25.0-29.9) (Acute) Past Medical History Medical History (Updated 04/01/24 @ 09:25 by Ni Morgan MD) CAD (coronary artery disease) Afib CVA (cerebral vascular accident) Self-catheterizes urinary bladder History of trigger finger Arthritis Preoperative cardiovascular examination Symptomatic stenosis of left carotid artery Rectal cancer Bladder neck contracture GERD (gastroesophageal reflux disease) Urinary incontinence Obstructive sleep apnea Coronary artery disease Type 2 diabetes mellitus with hyperglycemia Small bowel obstruction Erectile dysfunction Overweight (BMI 25.0-29.9) Peripheral vascular disease Prostate cancer Hematuria Constipation BPH (benign prostatic hyperplasia) Prostate cancer Colon cancer Dysuria Hyperlipidemia, unspecified Essential hypertension Family History Family History Father Pancreatic cancer Mother No problems noted. Brother Liver cancer Family history of problems with anesthesia: No Surgical History Surgical History History of left-sided carotid endarterectomy History of coronary artery stent placement History of exploratory laparotomy History of carpal tunnel release History of prostate surgery (~2016) History of bladder surgery (~01/04/18) History of colectomy History of appendectomy History of Problems with Anesthesia: No Social History Social History Household Members: Family Household Members Other:: Granddaughter Housing: House Are you a primary healthcare advisory services manager to a significant other at home: No Do you presently have visiting nurse or other home services: No Alcohol intake: never Comment: patient refusing bed alarm/alert&appropriate/uses can w/ ambulation Patient Tobacco Use Status: Former Tobacco user Tobacco use type: Cigarette e-Cigarette/Vaping Use: Never Used Second Hand Smoke Exposure: No Advance Directives Date on File: 09/29/20 service: No Current occupational status: retired Cognitive needs: Yes (cane) Hearing needs: Yes (hearing aide) Vision needs: Yes (glasses) Meds Allergies Allergy/AdvReac Type Severity Reaction Status Date / Time diphenhydramine AdvReac Intermediate Hallucinati Verified 04/01/24 06:15 [From Benadryl] ons Home Medications ?Medication ?Instructions ?Recorded ?Confirmed ?Last Taken ?Type aspirin 81 mg tablet,delayed 81 mg PO DAILY 12/01/22 04/01/24 03/31/24 History release cyanocobalamin (vitamin B-12) 1,000 mcg PO DAILY 12/01/22 04/01/24 03/31/24 History 1,000 mcg tablet docusate sodium 100 mg capsule 100 mg PO DAILY PRN Constipation 01/12/24 04/01/24 Unknown History amlodipine 2.5 mg tablet 7.5 mg PO BEDTIME 03/14/24 04/01/24 03/31/24 History metoprolol tartrate 25 mg tablet 12.5 mg PO BID 03/14/24 04/01/24 04/01/24 History Exam Height,Weight and Vital Signs: Height 6 ft 2 in Weight 81.647 kg Narrative Narrative: ECHO 02/2024 Conclusions: - 1. Normal LV ejection fraction 65-70% with mild LVH with impaired relaxation filling pattern 2. Mild aortic regurgitation 3. Normal RV systolic pressure 4. Mildly dilated ascending aorta at 3.8 cm 5. No gross pericardial effusion EKG 02/2024 Vent. Rate : 071 BPM Atrial Rate : 071 BPM P-R Int : 288 ms QRS Dur : 078 ms QT Int : 422 ms P-R-T Axes : 000 -15 -12 degrees QTc Int : 458 ms Sinus rhythm with 1st degree A-V block Inferior infarct , age undetermined Abnormal ECG When compared with ECG of 10-DEC-2023 09:42, Vent. rate has increased BY 24 BPM Inferior infarct is now Present Cardiac catheterization 11/22 with severe stenosis in the right coronary artery status post PCI. First diagonal with 50-60% stenosis. Otherwise, no significant disease. Airway Mallampati Class: IV TM Dist: >3cm Neck ROM: Full Assessment and Plan Assessment Anesthesia Assessment: Chart Reviewed Final Anesthetic Review Family History of Problems with Anesthesia: No History of Problems with Anesthesia: No Documented by User: Ni Morgan MD 04/01/24 09:28 PMF Active Problems Active Problems: All Active Problems Hyperlipidemia, unspecified (Acute) Afib post-op. Now Sinus CAD (coronary artery disease) (Acute)s/p DESx2 10/2023 CVA (cerebral vascular accident) (Acute) Complex partial seizure disorder (Acute)- 2 weeks ago. Started on meds by Neurologist Carpal tunnel syndrome on both sides (Acute) Bradycardia (Acute) Bilateral carotid artery stenosis (Acute) Cough (Acute) Right knee pain (Acute) H/o Hypotension (Acute) Screening for eye condition (Acute) Medicare annual wellness visit, initial (Acute ~09/28/21) Bacteremia (Acute) Bladder neck stricture (Acute) Acute retention of urine (Acute) Chronic UTI (urinary tract infection) (Acute) Essential hypertension (Acute) Constipation (Acute) GERD (gastroesophageal reflux disease) (Acute) Overweight (BMI 25.0-29.9) (Acute) Past Medical History Medical History (Updated 04/01/24 @ 09:25 by Ni Morgan MD) CAD (coronary artery disease) Afib CVA (cerebral vascular accident) Self-catheterizes urinary bladder History of trigger finger Arthritis Preoperative cardiovascular examination Symptomatic stenosis of left carotid artery Rectal cancer Bladder neck contracture GERD (gastroesophageal reflux disease) Urinary incontinence Obstructive sleep apnea Coronary artery disease Type 2 diabetes mellitus with hyperglycemia Small bowel obstruction Erectile dysfunction Overweight (BMI 25.0-29.9) Peripheral vascular disease Prostate cancer Hematuria Constipation BPH (benign prostatic hyperplasia) Prostate cancer Colon cancer Dysuria Hyperlipidemia, unspecified Essential hypertension Family History Family History Father Pancreatic cancer Mother No problems noted. Brother Liver cancer Family history of problems with anesthesia: No Surgical History Surgical History History of left-sided carotid endarterectomy History of coronary artery stent placement History of exploratory laparotomy History of carpal tunnel release History of prostate surgery (~2016) History of bladder surgery (~01/04/18) History of colectomy History of appendectomy History of Problems with Anesthesia: No Social History Social History Household Members: Family Household Members Other:: Granddaughter Housing: House Are you a primary healthcare advisory services manager to a significant other at home: No Do you presently have visiting nurse or other home services: No Alcohol intake: never Comment: patient refusing bed alarm/alert&appropriate/uses can w/ ambulation Patient Tobacco Use Status: Former Tobacco user Tobacco use type: Cigarette e-Cigarette/Vaping Use: Never Used Second Hand Smoke Exposure: No Advance Directives Date on File: 09/29/20 service: No Current occupational status: retired Cognitive needs: Yes (cane) Hearing needs: Yes (hearing aide) Vision needs: Yes (glasses) Meds Allergies Allergy/AdvReac Type Severity Reaction Status Date / Time diphenhydramine AdvReac Intermediate Hallucinati Verified 04/01/24 06:15 [From Benalyxl] ons Home Medications ?Medication ?Instructions ?Recorded ?Confirmed ?Last Taken ?Type aspirin 81 mg tablet,delayed 81 mg PO DAILY 12/01/22 04/01/24 03/31/24 History release cyanocobalamin (vitamin B-12) 1,000 mcg PO DAILY 12/01/22 04/01/24 03/31/24 History 1,000 mcg tablet docusate sodium 100 mg capsule 100 mg PO DAILY PRN Constipation 01/12/24 04/01/24 Unknown History amlodipine 2.5 mg tablet 7.5 mg PO BEDTIME 03/14/24 04/01/24 03/31/24 History metoprolol tartrate 25 mg tablet 12.5 mg PO BID 03/14/24 04/01/24 04/01/24 History Exam Height,Weight and Vital Signs: Height 6 ft 2 in Weight 81.647 kg Vital Signs Temp Pulse Resp BP Pulse Ox O2 Del Method 04/01/24 06:36 97.2 F 68 16 135/56 L 100 Room Air Pertinent Lab Results Pertinent Lab Results: Lab Results 04/01/24 04/01/24 Range/Units 06:34 06:44 POC Glucose 96 (60-115) mg/dL Blood Type O Positive Antibody Screen NEGATIVE Airway Mallampati Class: IV TM Dist: >3cm Neck ROM: Limited Partial: Upper and Lower Loose/Missing/Broken Teeth: Yes (Partial dentures not in. Denies broken or loose teeth) Heart: RRR Lungs: CTAB Assessment and Plan Assessment Anesthesia Assessment: Anesthesia Plan Discussed and Chart Reviewed Final Anesthetic Review Family History of Problems with Anesthesia: No History of Problems with Anesthesia: No NPO: Yes ASA Class: III Final Preanesthetic Review: No Changes in Pt Med Stat, Meds/Allgs Chart Reviewed, Consent Obtained/Reviewed and Anes Risks/Benef Reviewed Patient Risk: Intermediate Procedure Risk: Intermediate Assessment/Block/Sedation in SS: Assess/Block/Sedation-SS Anesthetic Plan Anesthetic Plan: GA (Arterial line, ICU postoperatively) Disposition: Standard PACU and Inp. Admit - ICU
[2024-04-01] VITALS (32 sets, daily range): BP systolic 102–153; BP diastolic 35–99; PULSE 52–71; RESP 12–21; TEMP 35.7–37.1; O2SAT 92–100; BMI 24.0
--- NOTE | ~2024-04-01 | FL_ITS ---
EXAMINATION: Modified Barium Swallow CLINICAL INFORMATION: Dysphagia COMPARISON: None TECHNIQUE: Modified barium swallow was performed under lateral fluoroscopy with patient in standing position. Barium mixed with solids and liquids of different consistencies was administered by the speech pathologist. Examination was recorded in the fluoroscopy suite. FINDINGS: Laryngeal penetration observed with a puree, nectar thick, and thin consistency barium, and a barium coated cookie. FLUOROSCOPY TIME: 3 minutes 25 seconds Number of Spot Images: 1 DOSE AREA PRODUCT: 4300 uGy-m2 (microgray-meter squared) FL/FL barium swallow modified IMPRESSION: Laryngeal penetration observed with a puree, nectar thick, and thin consistency barium, and a barium coated cookie. Refer to the speech therapy report for further clarification. This procedure was performed by Kumar Garcia PA-C, and supervised by Dr. Swanson
[2024-04-01 07:07] LABS: Glucose, Whole Blood 96 mg/dL (60-115)
[2024-04-01] MEDS: Lactated Ringers 1,000 ML 100 ML IVCONT (07:10)
--- NOTE | 2024-04-01 07:37 | MHC.SHP ---
Pre-Procedural Eval Section A - 24 Hr Update-Section A only Date of Service: 04/01/24 The patient is an INPATIENT: No Changes since office visit: Yes Patient answered all questions The patient has been examined within 24 hours of the surgical procedure. The History & Physical has been completed within 30 days and I have reviewed it.: Yes Section B - Complete if H&P > 30 days Chief Complaint: Occlusion and stenosis of right carotid artery Allergies: Allergies Allergy/AdvReac Type Severity Reaction Status Date / Time diphenhydramine AdvReac Intermediate Hallucinati Verified 04/01/24 06:15 [From Benadryl] ons Plan I have reviewed the history and physical and performed a pertinent physical examination on my patient. No changes have occurred unless specified. Time Spent With Patient Time: Total time managing care of this patient today ____ minutes.
--- NOTE | 2024-04-01 10:49 | W.PM.OPN ---
Operative Note Operative Note Date of Service: 04/01/24 Narrative: Operative note by [facility] Preoperative diagnosis:1. Right Carotid stenosis 2. Prior cerebrovascular accident Postoperative diagnosis: Same Procedure: Right Carotid endarterectomy with patch angioplasty Surgeon:Federico Shen M.D. Laundry Operator Wash Room: Dr. Prado Anesthesia: General Specimens: 1 Drains: 1 Estimated blood loss: 100 mL Indications: Pleasant 81-year-old gentleman who had a previous left carotid endarterectomy for what appeared to be a stroke now presents for high-grade right carotid stenosis. He actually had been rehospitalized for what may have been a seizure event unclear. Due to the high carotid stenosis we move forward with carotid endarterectomy The patient has signed the informed consent after reviewing risks, complications, benefits, and alternatives previously discussed with the patient. The patient was given the opportunity to ask any additional questions or voice any concerns. All questions were answered to the patient's satisfaction. Procedure in detail: Patient was taken to the operating room and placed in a supine position and prepped and draped in sterile manner with ChloraPrep. Longitudinal incision was made along the right anterior border of the sternocleidomastoid carried down through the subcutaneous fat and fascia. Hemostasis was obtained with electrocautery. The platysma muscle was then divided. The carotid sheath was identified in open. The vagus nerve, Ancef cervicalis, and hypoglossal nerves were identified and avoided. The common internal and external carotids were then freed from the surrounding tissue. At this point, 5000 units of heparin was administered and allowed to circulate for 5 minutes time to take effect. The internal, common, external carotids were clamped in that order. Once this was accomplished, we proceeded with the procedure. The carotid bulb was opened with an 11 blade and extended with Lawrence scissors through the very tight lesion into normal internal carotid artery. This was then extended down into the common carotid artery. We then placed a [place] shunt. Then the plaque was sharply excised proximally and an eversion endarterectomy was performed successfully at the external. The plaque tapered nicely on to the internal and no tacking sutures were necessary. Heparinized saline was injected and no evidence of flapping or other debris was noted. The remaining carotid was examined, which showed no debris or flaps present. At this point a XenoSure patch was brought on to the field. This was anastomosed to the artery using a 6 0 Prolene in a running fashion. Once approximately 4/5 of the patch was sewn in the shunt was then removed. Prior to the last stitch the internal carotid was back bled through this. Heparinized saline was instilled into the carotid. The last stitch was tied. Hemostasis was excellent. The internal carotid was gently occluded while while of the external and internal were open in that order. Finally the internal was then opened and flow was restored to the entire system. Hemostasis was achieved with interrupted 7-0 Prolene sutures. The wound was irrigated thoroughly. We then placed a 7 flat Reese-Crowder drain. Deep layer was reapproximated using a 2-0 poly Sorb and finally the superficial layer with a 3-0 Polysorb. The skin was closed in a subcuticular manner. The patient awoke and neurologic status was checked and appeared to be intact. Sponge, needle and instrument counts were correct. The patient tolerated the procedure well. Returned to recovery with stable vitals. Of note at the end the case the patient did have hematuria in Fam. Urology service was notified. This note is constructed using voice recognition software. While every effort has been made to ensure accuracy, textiles printer errors may have been included. Thank you for allowing me to participate in the care of your patient. Yours sincerely, Federico Shen MD, FACS, R.P.V.I.
--- NOTE | 2024-04-01 12:50 | PM.UROCN ---
History of Present Illness Consult details Consult date: 04/01/24 Narrative: CC: Urinary retention/nursing unable to place Robert catheter HPI: Post vascular carotid repair Nursing staff have tried to place Robert multiple times PreOperative Diagnosis: Urinary retention Post Operative Diagnosis: Urinary retention Procedure: Bedside cystoscopy with bladder neck dilation - difficult Robert catheter placement Surgeon: Dr Jerman Hein Anesthesia: None Indications for procedure: Urinary retention/false passage Robert catheter Procedure: Verbal consent for bedside cystoscopy obtained. Using clean technique gel placed per urethra. Flexible cystoscopy performed Prostatectomy. Bladder neck stricture. Proximally 14 [place]. Unable to advance 16 Tu[place] cystoscopy. Sensor guidewire placed through scope into bladder. Urethral dilators used dilate stricture to 20 [place] 16 [place] tip catheter placed over wire 10 cc balloon 200 cc obtained with bladder emptying CPT 84532 with difficult robert catheter placement Difficult Robert Placement CPT 30808 Review of Systems Constitutional: Constitutional: Reports as per HPI and Reports no additional constitutional complaints Cardiovascular: Cardiovascular: Reports as per HPI and Reports no additional cardiovascular complaints Respiratory: Respiratory: Reports as per HPI and Reports no additional respiratory complaints Gastrointestinal: Gastrointestinal: Reports as per HPI and Reports no additional gastrointestinal complaints Genitourinary: Genitourinary: Reports as per HPI Musculoskeletal: Musculoskeletal: Reports no additional musculoskeletal complaints and Reports as per HPI Neurologic: Reports system reviewed and no additional complaints, except as documented and Reports as per HPI [facility] Past Medical History Medical History (Updated 04/01/24 @ 13:01 by Jerman Hein MD) CAD (coronary artery disease) Afib CVA (cerebral vascular accident) Self-catheterizes urinary bladder History of trigger finger Arthritis Preoperative cardiovascular examination Symptomatic stenosis of left carotid artery Rectal cancer Bladder neck contracture GERD (gastroesophageal reflux disease) Urinary incontinence Obstructive sleep apnea Coronary artery disease Type 2 diabetes mellitus with hyperglycemia Small bowel obstruction Erectile dysfunction Overweight (BMI 25.0-29.9) Peripheral vascular disease Prostate cancer Hematuria Constipation BPH (benign prostatic hyperplasia) Prostate cancer Colon cancer Dysuria Hyperlipidemia, unspecified Essential hypertension Family History Family History Father Pancreatic cancer Mother No problems noted. Brother Liver cancer Surgical History Surgical History History of left-sided carotid endarterectomy History of coronary artery stent placement History of exploratory laparotomy History of carpal tunnel release History of prostate surgery (~2017) History of bladder surgery (~01/04/18) History of colectomy History of appendectomy Social History Social History Household Members: Family Household Members Other:: Granddaughter Housing: House Are you a primary primary care provider to a significant other at home: No Do you presently have visiting nurse or other home services: No Alcohol intake: never Comment: patient refusing bed alarm/alert&appropriate/uses can w/ ambulation Patient Tobacco Use Status: Former Tobacco user Tobacco use type: Cigarette Smoked in Last 30 Days: No e-Cigarette/Vaping Use: Never Used Second Hand Smoke Exposure: No Use of substances other than those prescribed or required for medical reasons: No Have you been hit, kicked, punched, or otherwise hurt by someone within the past year? If so, by whom?: No Are you DNR?: No Advance Directives: Yes Advance Directives Information Provided: No Advance Directives on File: Yes Advance Directives Date on File: 09/29/20 Recently lost weight without trying: No Nutrition Risks: Surgical patient >75years service: No Current occupational status: retired Cognitive needs: Yes (cane) Hearing needs: Yes (hearing aide) Vision needs: Yes (glasses) Meds Allergies Allergy/AdvReac Type Severity Reaction Status Date / Time diphenhydramine AdvReac Intermediate Hallucinati Verified 04/01/24 06:15 [From Benadryl] ons Active Medications: Current Medications Acetaminophen (Acetaminophen 325 Mg Tablet) 650 mg PO Q6H PRN PRN Reason: Pain, Mild (Pain Scale 1-3) Lactated Ringer's (Lr) 1,000 mls @ 100 mls/hr IVCONT .Q10H KRISTINE Last Admin: 04/01/24 07:10 Dose: 100 mls/hr Sodium Chloride (Ns) 1,000 mls @ 80 mls/hr IVCONT .[id number] KRISTINE Ondansetron HCl (Ondansetron Hcl 4 Mg/2 Ml Vial) 4 mg IVPUSH ONCE PRN PRN Reason: Nausea and Vomiting Stop: 04/01/24 15:18 Oxycodone HCl (Oxycodone Hcl Immed Release 5 Mg Tablet) 5 mg PO ONCE PRN PRN Reason: Pain, Severe (Pain Scale 7-10) Stop: 04/01/24 15:18 Oxycodone HCl (Oxycodone Hcl Immed Release 5 Mg Tablet) 5 mg PO Q4H PRN PRN Reason: Pain, Moderate(Pain Scale 4-6) Sodium Chloride (0.9 % Sodium Chloride Flush 3 Ml Syringe) 3 ml IVFLUSH QSHIFT [facility] Home Medications ?Medication ?Instructions ?Recorded ?Confirmed ?Last Taken ?Type aspirin 81 mg tablet,delayed 81 mg PO DAILY 12/01/22 04/01/24 03/31/24 History release cyanocobalamin (vitamin B-12) 1,000 mcg PO DAILY 12/01/22 04/01/24 03/31/24 History 1,000 mcg tablet docusate sodium 100 mg capsule 100 mg PO DAILY PRN Constipation 01/12/24 04/01/24 Unknown History amlodipine 2.5 mg tablet 7.5 mg PO BEDTIME 03/14/24 04/01/24 03/31/24 History metoprolol tartrate 25 mg tablet 12.5 mg PO BID 03/14/24 04/01/24 04/01/24 History Physical Exam Vital Signs: Vital Signs: Last Vital Signs Temp 97.2 F 04/01/24 06:36 Pulse 60 04/01/24 12:10 Resp 16 04/01/24 12:10 BP 118/52 L 04/01/24 12:10 Pulse Ox 96 04/01/24 12:10 O2 Del Method Nasal Cannula wit h Capnography 04/01/24 12:10 O2 Flow Rate 2 04/01/24 12:10 BMI result Body Mass Index 24.0 Const: General: cooperative, healthy appearing, comfortable and no acute distress Orientation/consciousness: patient oriented x3 HEENT: Face and sinus: Yes normal facial exam Mouth: moist mucous membranes Neck: Neck: Yes normal visual inspection, Yes full ROM and Yes trachea midline Chest: Chest palpation & inspection: normal inspection of the chest Resp: Effort & Inspection: normal respiratory effort, able to speak in complete sentences and no respiratory distress GI: Inspection: Yes normal to inspection Back/Spine/Pelvis: Cervical Spine: normal cervical lordosis Thoracic/Lumbar Spine: thoracic and lumbar spine normal to inspection Skin: General skin exam: no rashes or lesions noted Neuro: General: patient oriented x3, tone normal and moves all extremities Extrem: General: Yes normal to inspection and Yes capillary refill normal Results Labs Labs: All other labs normal. Assessment and Plan (1) Difficult Robert catheter placement: Status: Acute Plan Remove catheter in 48 hours Procedures Date of Service Date of Service: 04/01/24
[2024-04-01] MEDS: oxyCODONE HCl Immed Release 5 MG TABLET PO (13:33)
--- NOTE | 2024-04-01 14:33 | PHA.MEDREC ---
Pharmacy Consult ? Medication Reconciliation Pharmacy has completed the medication reconciliation. med rec reviewed done by nursing.
[2024-04-01 14:56] LABS: Glucose, Whole Blood 133 mg/dL (60-115)
[2024-04-01 15:58] LABS: Hematocrit 34.7 % (42.0-52.0); Hemoglobin 11.8 g/dl (14.0-18.0); Mean Corpuscular Hemoglobin 28.8 pg (27.0-33.0); Mean Corpuscular Volume 84.6 fL (80.0-98.0); Mean Platelet Volume 9.9 fL (9.4-12.4); Platelet Count 215 X10*3/uL (160-400); Red Cell Distribution Width 13.3 % (11.0-16.0); White Blood Count 12.3 X10*3/uL (4.8-10.8)
[2024-04-01 16:04] LABS: Prothrombin Time 12.3 SEC (11.1-13.3)
--- NOTE | 2024-04-01 16:07 | P.HPCC_ITS ---
History of Present Illness Date of Service: 04/01/24 Chief Complaint: Admitted for an elective left carotid endarterectomy 89-year-old gentleman with PMH of CVA with bilateral carotid artery stenosis, status post left carotid endarterectomy few months ago, history of prostate and colon cancer coronary artery disease GERD hypertension, carpal tunnel syndrome was found to have 90% stenosis of the right carotid as patient had some questionable seizures and questionable new stroke. Patient is electively admitted for a right carotid endarterectomy which she underwent successfully this morning. During the surgery patient had Fam catheter insertion following which she had jeff hematuria, Urology has been consulted and currently hematuria is better. He is being admitted to ICU for postop monitoring. Following the previous left carotid endarterectomy patient had swelling all around his neck which slowly improved over a period of time. Review of Systems 2 Constitutional: Constitutional: Denies anorexia, Reports body ache(s), Denies chills, Denies daytime sleepiness and Denies difficulty sleeping Eyes: Eyes: Denies blurry vision, Denies exophthalmos and Denies change in vision ENT: Reports Normal hearing present, Denies bleeding gums and Denies change in voice Cardiovascular: Cardiovascular: Denies Abdominal Cramping after Meds, Denies Abdominal Distension and Denies acrocyanosis Gastrointestinal: Gastrointestinal: Denies abdominal pain, Denies belching and Denies melena Genitourinary: Genitourinary: Denies hematospermia, Denies change in libido and Reports hematuria Integumentary/Breasts: Skin/Breast: Denies acne and Denies bleeding lesions Neurologic: Reports Normal hearing present Psychiatric: Psychiatric: Denies change in libido Endocrine: Endocrine: Denies change in libido [facility] Past Medical History Medical History (Updated 04/01/24 @ 13:01 by Jerman Hein MD) CAD (coronary artery disease) Afib CVA (cerebral vascular accident) Self-catheterizes urinary bladder History of trigger finger Arthritis Preoperative cardiovascular examination Symptomatic stenosis of left carotid artery Rectal cancer Bladder neck contracture GERD (gastroesophageal reflux disease) Urinary incontinence Obstructive sleep apnea Coronary artery disease Type 2 diabetes mellitus with hyperglycemia Small bowel obstruction Erectile dysfunction Overweight (BMI 25.0-29.9) Peripheral vascular disease Prostate cancer Hematuria Constipation BPH (benign prostatic hyperplasia) Prostate cancer Colon cancer Dysuria Hyperlipidemia, unspecified Essential hypertension Family History Family History Father Pancreatic cancer Mother No problems noted. Brother Liver cancer Surgical History Surgical History History of left-sided carotid endarterectomy History of coronary artery stent placement History of exploratory laparotomy History of carpal tunnel release History of prostate surgery (~2016) History of bladder surgery (~01/04/18) History of colectomy History of appendectomy Social History Social History Household Members: Family Household Members Other:: Granddaughter Housing: House Are you a primary special needs child caregiver to a significant other at home: No Do you presently have visiting nurse or other home services: No Alcohol intake: never Patient Tobacco Use Status: Former Tobacco user Tobacco use type: Cigarette Smoked in Last 30 Days: No e-Cigarette/Vaping Use: Never Used Second Hand Smoke Exposure: No Use of substances other than those prescribed or required for medical reasons: No Have you been hit, kicked, punched, or otherwise hurt by someone within the past year? If so, by whom?: No Are you DNR?: No Advance Directives: Yes Advance Directives Information Provided: No Advance Directives on File: Yes Advance Directives Date on File: 09/29/20 Recently lost weight without trying: No Nutrition Risks: Surgical patient >75years service: No Current occupational status: retired Cognitive needs: Yes (cane) Hearing needs: Yes (hearing aide) Vision needs: Yes (glasses) Meds Allergies Allergy/AdvReac Type Severity Reaction Status Date / Time diphenhydramine AdvReac Intermediate Hallucinati Verified 04/01/24 06:15 [From Benadryl] ons Active Medications: Current Medications Acetaminophen (Acetaminophen 325 Mg Tablet) 650 mg PO Q6H PRN PRN Reason: Pain, Mild (Pain Scale 1-3) Hydromorphone HCl (Hydromorphone Hcl 0.5 Mg/0.5 Ml Syringe) 0.5 mg IVPUSH Q4H PRN; Protocol PRN Reason: Pain, Moderate(Pain Scale 4-6) Lactated Ringer's (Lr) 1,000 mls @ 100 mls/hr IVCONT .Q10H KRISTINE Last Admin: 04/01/24 07:10 Dose: 100 mls/hr Sodium Chloride (Ns) 1,000 mls @ 80 mls/hr IVCONT .[id number] [facility] Last Admin: 04/01/24 15:45 Dose: Not Given Oxycodone HCl (Oxycodone Hcl Immed Release 5 Mg Tablet) 5 mg PO Q4H PRN PRN Reason: Pain, Moderate(Pain Scale 4-6) Sodium Chloride (0.9 % Sodium Chloride Flush 3 Ml Syringe) 3 ml IVFLUSH QSHIFT [facility] Home Medications ?Medication ?Instructions ?Recorded ?Confirmed ?Last Taken ?Type aspirin 81 mg tablet,delayed 81 mg PO DAILY 12/01/22 04/01/24 03/31/24 History release cyanocobalamin (vitamin B-12) 1,000 mcg PO DAILY 12/01/22 04/01/24 03/31/24 History 1,000 mcg tablet docusate sodium 100 mg capsule 100 mg PO DAILY PRN Constipation 01/12/24 04/01/24 Unknown History amlodipine 2.5 mg tablet 7.5 mg PO BEDTIME 03/14/24 04/01/24 03/31/24 History metoprolol tartrate 25 mg tablet 12.5 mg PO BID 03/14/24 04/01/24 04/01/24 History Physical Exam 2 Vital Signs: Vital Signs: Last Vital Signs Temp 96.2 F L 04/01/24 16:00 Pulse 63 04/01/24 16:00 Resp 15 04/01/24 16:00 BP 118/45 L 04/01/24 16:00 Pulse Ox 99 04/01/24 16:00 O2 Del Method Room Air 04/01/24 16:00 O2 Flow Rate 2 04/01/24 14:25 BMI result Body Mass Index 24.0 General: In a little distress, but alert and talking Nutritional Appearance: well nourished and normal weight Eyes: appearance normal, both eyes and all related structures; Alignment and Position: alignment normal and position normal Neck: No lymphadenopathy, no thyromegaly, right neck hematoma with DEE drain present Resp: bilateral air entry equal, no added sounds present Cardio: Regular rate, regular rhythm; Heart sounds: S1 normal heart sound present and S2 normal heart sound present GI: soft, nontender, no guarding, no hepatosplenomegaly : bladder normal to inspection, bladder normal to palpation, no renal angle tenderness Skin: no rashes or lesions noted and elasticity normal Neuro: oriented to person, oriented to place, oriented to time and moves all extremities Neuro: Cranial nerves: Yes Normal hearing present Results Labs 04/01/24 15:44 04/01/24 15:44 Labs: Laboratory Results - last 24 hr 04/01/24 04/01/24 04/01/24 06:34 06:44 14:11 MCV MCH MCHC RDW Plt Count MPV Absolute Nucleated RBC Nucleated RBC % (auto) PT INR POC Glucose 96 133 H Blood Type O Positive Antibody Screen NEGATIVE 04/01/24 15:44 MCV 84.6 MCH 28.8 MCHC 34.0 RDW 13.3 Plt Count 215 MPV 9.9 Absolute Nucleated RBC 0.000 Nucleated RBC % (auto) 0.0 PT 12.3 INR 1.0 POC Glucose Blood Type Antibody Screen Assessment and Plan (1) CVA (cerebral vascular accident): Qualifiers: CVA mechanism: unspecified Qualified Code(s): I63.9 - Cerebral infarction, unspecified Status: Acute (2) CAD (coronary artery disease): Status: Acute (3) Complex partial seizure disorder: Status: Acute (4) Bilateral carotid artery stenosis: Status: Acute (5) Afib: Status: Acute Plan 89-year-old gentleman with PMH of CVA with bilateral carotid artery stenosis, status post left carotid endarterectomy few months ago, history of prostate and colon cancer coronary artery disease GERD hypertension, carpal tunnel syndrome was found to have 90% stenosis of the right carotid as patient had some questionable seizures and questionable new stroke. Patient is electively admitted for a right carotid endarterectomy which she underwent successfully this morning. During the surgery patient had Fam catheter insertion following which she had jeff hematuria, Urology has been consulted and currently hematuria is better. He is being admitted to ICU for postop monitoring. Right carotid artery stenosis: History of cerebrovascular accident: Status post endarterectomy today We will closely monitor his blood pressures, avoid hypotension/hypertenson We will closely monitor to look for any signs of difficulty in breathing or difficulty in swallowing Monitor DEE drain output Platelet count, INR, CMP looks normal. Hemoglobin stable We will hold off aspirin, Plavix Hematuria: Has a history of prostatic cancer Which is improving, leave the Fam catheter in We will closely monitor
[2024-04-01 16:16] LABS: Alanine Aminotransferase 9 U/L (0-40); Albumin Level 3.4 g/dL (3.5-5.0); Alkaline Phosphatase 72 U/L (39-117); Anion Gap 11 (12-20); Aspartate Amino Transferase 12 U/L (5-37); Bilirubin Total 0.2 mg/dL (0.0-1.0); Blood Urea Nitrogen 16 mg/dL (9-16); Calcium 8.7 mg/dL (8.4-10.2); Carbon Dioxide 21 mmol/L (22-29); Chloride 111 mmol/L (96-108); Estimated Glomerular Filt Rate > 60; Glucose Random 167 mg/dL (60-115); Potassium 4.2 mmol/L (3.3-5.1); Sodium 139 mmol/L (135-145); Total Protein 5.7 g/dL (6.5-8.0)
[2024-04-01] MEDS: 0.9 % Sodium Chloride Flush 3 ML SYRINGE IVFLUSH ×2 (16:35→21:42)
[2024-04-01] MEDS: 0.9 % Sodium Chloride 1,000 ML 80 ML IVCONT (16:40)
--- NOTE | 2024-04-01 17:00 | PC.NURSE ---
At approximately 1500, this RN contacted Dr. Shen via [employer] to notify him of pt's dressing becoming stained with bright red blood (see first picture shown below), as well as the pt's DEE drain tubing being flat. MD responded ok. No new orders placed. At approx 1640, Dr. Shen notified by Vsnapt of dressing worsening with complete saturation, TW attached photo to message so MD could see dressing status (see photo below). Dr. Shen replied ok. Hold aspirin and plavix. I would make him NPO again. RN asked MD for plan, stating there was now no output to DEE drain since trasnfer from PACU. MD replied just observe. ICU logistics team leader made aware of pt status. At 1650 RN asked MD when he would like to be notified of pt's status again, MD replied he becomes hypertensive or dressing is dripping. Hypotension. At 1702 pt called RN into room and stated he felt his neck was wet. Dressing was leaking at this time. Dr. Shen made aware. Dr. Shen stated just reinforce for now. Dressing reinforced with sponge gauze and four tegaderm dressings (photos below) Equipment Sales Specialist at bedside, aware of Dr. Shen's response to leaking dressing. No new orders at this time. Plan of care ongoing.
--- NOTE | 2024-04-01 19:35 | PC.NURSE ---
Addendum entered by Chichi Nobles RN 04/02/24 05:10: Patient returned back to ICU from OR at 04:43 s/p right neck exploration and hematoma evacuation. Pt is alert/awake, conversing with marine underwriter is clear, full sentences, making needs known. A&Ox4. DEE drain removed in OR. DSD in place remains c/d/i without drainage. Pt denies pain. VSS. Right radial a-line is correlating with cuff pressures on LUE. Per bedside nursing handoff pt received 800ml LR intraop; NaCl resumed as ordered on return to ICU. Pt offers no complaints. Addendum entered by Chichi Nobles RN 04/02/24 03:15: Dr. Shen consented patient for re-exploration of surgical site at right neck; Anesthesia Dr. Ramirez consented pt for anesthesia. Ham Stripper attempted to call to update sofy Doty per pt request, though only voice mailbox answering machine reached, discussed with patient and Dr Shen; Dr. Shen states he will update Lalitha post-op. 03:00 VSS. Patient taken to OR with team at 03:10. Addendum entered by Chichi Nobles RN 04/02/24 02:31: 02:30 Dr. Shen presented to bedside, advised assembling OR team with plans to take patient back to OR for exploration of bleed. Addendum entered by Chichi Nobles RN 04/02/24 01:46: 01:30: Ham Stripper rounded to bedside to assess dressing one-hour post PA dressing reinforcement. Blood noted to be oozing in slow trickles from above and below newly reinforced dressing, new pillow case changed with dressing at 0:30 now bloody. CORNELIO Hays notified and to bedside, observed dressing status, and called Dr. Shen at 01:32. Stat H+H ordered by PA. Dr. Shen advised he will be coming in to the hospital to see the pt. Addendum entered by Chichi Nobles RN 04/02/24 00:37: 0:00: CORNELIO Hays rounded to pt's bedside for dressing visualization and contacted Dr. Shen by phone. Dr Shen gave verbal okay for partial dressing takedown and re-packing by PA which was done to posterior portion of dressing using sterile technique, completed at 0:30 without issue. Dressing dated and timed for continued monitoring purposes. Dr. Shen advised he will reassess potential OR relook need in the morning. Should the patient become hemodynamically unstable or develop symptoms, CORNELIO Hays will contact Dr. Shen via phone again. VSS at this time and pt is asymptomatic and continues to deny dizziness/lightheadedness, numbness/tingling, chest pain, sob, dizziness, n/v. Pt educated on these s/s and encouraged to call should he develop any, +teach back. Addendum entered by Chichi Nobles RN 04/01/24 23:44: 23:35 Pt cuff BP was 102/49 (map 66), correlating with a-line pressure 107/44 (map 65). Pt asymptomatic, denies dizziness/lightheadedness, vision changes, chest pain, sob, n/v, or other issues when reassessed. Mentation maintained per marine underwriter's initial assessment. Dr. Shen notified at 23:37 per communication order (DBP less than 50). No new orders at this time. Addendum entered by Chichi Nobles RN 04/01/24 23:02: 23:00: Updated photo sent to Dr. Shen, described reinforcement placed at 21:00 by marine underwriter to posterior existing dressing now saturated through and onto ABD pad placed behind neck from that time. No new orders at this time. Reinforced bulky replaced with clean reinforcement. VSS, pt asymptomatic. A-line continues to correlate with BP cuff on LUE. Addendum entered by Chichi Nobles RN 04/01/24 22:14: 22:05: Dr. Shen notified H+H back now 10.4/31.2 down from previous 11.8/34.7 at 15:44; asked if he would like to trend further tonight though declined. Morning lab orders in place. Addendum entered by Chichi Nobles RN 04/01/24 21:51: Ham Stripper sent Dr. Shen below photo of bulky kerlix placed as reinforcement over original dressing at posterior neck. Written orders given to marine underwriter to assess H+H; sample drawn off right radial A-line and sent (in process at this time). Confirmed patient diet orders, NPO but okay for meds with water. Pt tolerated scheduled meds without issue. Addendum entered by Chichi Nobles RN 04/01/24 20:49: Dressing reinforced with new kerlix bulky at posterior aspect per PA as current dressing not sticking well. Ham Stripper's outline on tegaderm (see below) remains unchanged. Pt continues to deny pain or other issues. Original Note: Assumed care of patient at 19:00. Dressing visualized during handoff report with off-going RN, noted to be leaking from beneath tegaderm and onto pillow case and sheet. Saúl Person PA rounded to bedside and observed, discussed. Tegaderm outlined per PA verbal order to monitor of any further expansion. Patient denies trouble breathing or swallowing. VSS. Will continue to monitor.
[2024-04-01] MEDS: levETIRAcetam 250 MG TABLET PO (21:40)
[2024-04-01] MEDS: amLODIPine Besylate 2.5 MG TABLET 7.5 MG PO (21:40)
[2024-04-01] MEDS: Metoprolol Tartrate 12.5 MG HALFTAB PO (21:40)
[2024-04-01 22:02] LABS: Hematocrit 31.2 % (42.0-52.0); Hemoglobin 10.4 g/dl (14.0-18.0)
[2024-04-02] VITALS (27 sets, daily range): BP systolic 94–131; BP diastolic 39–57; PULSE 52–81; RESP 13–21; TEMP 36.4–36.9; O2SAT 90–100; BMI 24.5
[2024-04-02 01:50] LABS: Hematocrit 28.4 % (42.0-52.0); Hemoglobin 9.7 g/dl (14.0-18.0)
[2024-04-02] MEDS: 0.9 % Sodium Chloride 1,000 ML 80 ML IVCONT ×2 (02:11→15:48)
--- NOTE | 2024-04-02 02:53 | MHC.SHP ---
Pre-Procedural Eval Section A - 24 Hr Update-Section A only Date of Service: 04/02/24 The patient is an INPATIENT: Yes Changes since office visit: Yes Patient answered all questions The patient has been examined within 24 hours of the surgical procedure. The History & Physical has been completed within 30 days and I have reviewed it.: Yes Section B - Complete if H&P > 30 days Chief Complaint: Post Op Allergies: Allergies Allergy/AdvReac Type Severity Reaction Status Date / Time diphenhydramine AdvReac Intermediate Hallucinati Verified 04/01/24 06:15 [From Tereza] ons Plan I have reviewed the history and physical and performed a pertinent physical examination on my patient. No changes have occurred unless specified. Time Spent With Patient Time: Total time managing care of this patient today ____ minutes.
--- NOTE | 2024-04-02 02:54 | PM.EVENT ---
Event Note Date of Service: 04/02/24 Event Note: Patient continued to bleed through the evening and night. On-call surgery team and anesthesia was called in. Discussed the need for re-exploration with the patient for his bleeding. He was in agreement and will proceed as soon as possible. Time Spent With Patient Time: Total time managing care of this patient today ____ minutes.
--- NOTE | 2024-04-02 03:01 | P.CONAN_ITS ---
HPI - Anesthesia Eval Consult details Narrative: [id number] bleed PMFSH Active Problems Active Problems: All Active Problems Difficult Fam catheter placement (Acute) Hyperlipidemia, unspecified (Acute) Afib (Acute) CAD (coronary artery disease) (Acute) CVA (cerebral vascular accident) (Acute) Complex partial seizure disorder (Acute) Carpal tunnel syndrome on both sides (Acute) Bradycardia (Acute) Bilateral carotid artery stenosis (Acute) Cough (Acute) Right knee pain (Acute) Hypotension (Acute) Screening for eye condition (Acute) Medicare annual wellness visit, initial (Acute ~09/28/21) Bacteremia (Acute) Bladder neck stricture (Acute) Acute retention of urine (Acute) Chronic UTI (urinary tract infection) (Acute) Essential hypertension (Acute) Constipation (Acute) GERD (gastroesophageal reflux disease) (Acute) Overweight (BMI 25.0-29.9) (Acute) Past Medical History Medical History CAD (coronary artery disease) Afib CVA (cerebral vascular accident) Self-catheterizes urinary bladder History of trigger finger Arthritis Preoperative cardiovascular examination Symptomatic stenosis of left carotid artery Rectal cancer Bladder neck contracture GERD (gastroesophageal reflux disease) Urinary incontinence Obstructive sleep apnea Coronary artery disease Type 2 diabetes mellitus with hyperglycemia Small bowel obstruction Erectile dysfunction Overweight (BMI 25.0-29.9) Peripheral vascular disease Prostate cancer Hematuria Constipation BPH (benign prostatic hyperplasia) Prostate cancer Colon cancer Dysuria Hyperlipidemia, unspecified Essential hypertension Family History Family History Father Pancreatic cancer Mother No problems noted. Brother Liver cancer Family history of problems with anesthesia: No Surgical History Surgical History History of left-sided carotid endarterectomy History of coronary artery stent placement History of exploratory laparotomy History of carpal tunnel release History of prostate surgery (~2017) History of bladder surgery (~01/04/18) History of colectomy History of appendectomy History of Problems with Anesthesia: No Social History Social History Household Members: Family Household Members Other:: Granddaughter Housing: House Are you a primary patient care representative to a significant other at home: No Do you presently have visiting nurse or other home services: No Alcohol intake: never Patient Tobacco Use Status: Former Tobacco user Tobacco use type: Cigarette Smoked in Last 30 Days: No e-Cigarette/Vaping Use: Never Used Second Hand Smoke Exposure: No Use of substances other than those prescribed or required for medical reasons: No Currently Displaying Signs/Symptoms of Drug Intoxication Withdrawal: No Have you been hit, kicked, punched, or otherwise hurt by someone within the past year? If so, by whom?: No Do you feel safe in your current relationship?: No Current Relationship Is there a partner from a previous relationship who is making you feel unsafe now?: No Are you made to feel afraid or neglected: No Are you DNR?: No Advance Directives: Yes Advance Directives Information Provided: No Advance Directives on File: Yes Advance Directives Date on File: 09/29/20 Do you have a plan to hurt others: No Plan Recently lost weight without trying: No Nutrition Risks: Surgical patient >75years service: No Current occupational status: retired Cognitive needs: Yes (cane) Hearing needs: Yes (hearing aide) Vision needs: Yes (glasses) Meds Allergies Allergy/AdvReac Type Severity Reaction Status Date / Time diphenhydramine AdvReac Intermediate Hallucinati Verified 04/01/24 06:15 [From Tereza] ons Active Medications: Current Medications Acetaminophen (Acetaminophen 325 Mg Tablet) 650 mg PO Q6H PRN PRN Reason: Pain, Mild (Pain Scale 1-3) Amlodipine Besylate (Amlodipine Besylate 2.5 Mg Tablet) 7.5 mg PO BEDTIME KRISTINE; Protocol Last Admin: 04/01/24 21:40 Dose: 7.5 mg Atorvastatin Calcium (Atorvastatin Calcium 40 Mg Tablet) 40 mg PO DAILY [facility] Cyanocobalamin (Cyanocobalamin (Vitamin B-12) 1,000 Mcg Tablet) 1,000 mcg PO DAILY KRISTINE Docusate Sodium (Docusate Sodium 100 Mg Capsule) 100 mg PO DAILY PRN PRN Reason: Constipation Hydromorphone HCl (Hydromorphone Hcl 0.5 Mg/0.5 Ml Syringe) 0.5 mg IVPUSH Q4H PRN; Protocol PRN Reason: Pain, Moderate(Pain Scale 4-6) Sodium Chloride (Ns) 1,000 mls @ 80 mls/hr IVCONT .[id number] [facility] Last Admin: 04/02/24 02:11 Dose: 80 mls/hr Cefazolin Sodium/Dextrose (Ancef) 2 gm in 50 mls @ 100 mls/hr IV PREOP ONE Stop: 04/02/24 03:21 Lactulose (Lactulose 20 Gm/30 Ml Solution) 20 gm PO DAILY PRN PRN Reason: for constipation Levetiracetam (Levetiracetam 250 Mg Tablet) 250 mg PO BID [facility] Last Admin: 04/01/24 21:40 Dose: 250 mg Metoprolol Tartrate (Metoprolol Tartrate 12.5 Mg Halftab) 12.5 mg PO BID [facility]; Protocol Last Admin: 04/01/24 21:40 Dose: 12.5 mg Oxycodone HCl (Oxycodone Hcl Immed Release 5 Mg Tablet) 5 mg PO Q4H PRN PRN Reason: Pain, Moderate(Pain Scale 4-6) Sodium Chloride (0.9 % Sodium Chloride Flush 3 Ml Syringe) 3 ml IVFLUSH QSHIFT [facility] Last Admin: 04/01/24 21:42 Dose: 3 ml Home Medications ?Medication ?Instructions ?Recorded ?Confirmed ?Last Taken ?Type aspirin 81 mg tablet,delayed 81 mg PO DAILY 12/01/22 04/01/24 03/31/24 History release cyanocobalamin (vitamin B-12) 1,000 mcg PO DAILY 12/01/22 04/01/24 03/31/24 History 1,000 mcg tablet docusate sodium 100 mg capsule 100 mg PO DAILY PRN Constipation 01/12/24 0 04/01/24 Unknown History amlodipine 2.5 mg tablet 7.5 mg PO BEDTIME 03/14/24 04/01/24 03/31/24 History metoprolol tartrate 25 mg tablet 12.5 mg PO BID 03/14/24 04/01/24 04/01/24 History Exam Height,Weight and Vital Signs: Height 6 ft 2 in Weight 84.822 kg Last Vital Signs Temp 97.9 F 04/01/24 23:00 Pulse 69 04/02/24 02:00 Resp 19 04/02/24 02:00 BP 126/51 L 04/02/24 02:00 Pulse Ox 97 04/02/24 02:00 O2 Del Method Room Air 04/02/24 02:00 O2 Flow Rate 1 04/01/24 23:35 Pertinent Lab Results Pertinent Lab Results: Laboratory Tests 04/01/24 04/01/24 04/01/24 06:34 06:44 14:11 WBC RBC Hgb Hct MCV MCH MCHC RDW Plt Count MPV Absolute Nucleated RBC Nucleated RBC % (auto) PT INR Sodium Potassium Chloride Carbon Dioxide Anion Gap BUN Creatinine Estim Creat Clear Calc Estimated GFR POC Glucose 96 133 H Random Glucose Calcium Total Bilirubin AST ALT Alkaline Phosphatase Total Protein Albumin Blood Type O Positive Antibody Screen NEGATIVE 04/01/24 04/01/24 04/02/24 15:44 21:56 01:46 WBC 12.3 H RBC 4.10 L Hgb 11.8 L 10.4 L 9.7 L Hct 34.7 L 31.2 L 28.4 L MCV 84.6 MCH 28.8 MCHC 34.0 RDW 13.3 Plt Count 215 MPV 9.9 Absolute Nucleated RBC 0.000 Nucleated RBC % (auto) 0.0 PT 12.3 INR 1.0 Sodium 139 Potassium 4.2 Chloride 111 H Carbon Dioxide 21 L Anion Gap 11 L BUN 16 Creatinine 0.86 Estim Creat Clear Calc 69.0 Estimated GFR > 60 POC Glucose Random Glucose 167 H Calcium 8.7 Total Bilirubin 0.2 AST 12 ALT 9 Alkaline Phosphatase 72 Total Protein 5.7 L Albumin 3.4 L Blood Type Antibody Screen Airway Mallampati Class: II TM Dist: >3cm Neck ROM: Full Loose/Missing/Broken Teeth: No Heart: RRR Lungs: CTA Assessment and Plan Assessment Anesthesia Assessment: Anesthesia Plan Discussed and Chart Reviewed Final Anesthetic Review Family History of Problems with Anesthesia: No History of Problems with Anesthesia: No NPO: Yes ASA Class: IV and Emergency Final Preanesthetic Review: No Changes in Pt Med Stat, Meds/Allgs Chart Reviewed, Consent Obtained/Reviewed and Anes Risks/Benef Reviewed Patient Risk: High Procedure Risk: High Anesthetic Plan Anesthetic Plan: GA Disposition: Inp. Admit - ICU
--- NOTE | 2024-04-02 04:45 | W.PM.OPN ---
Operative Note Operative Note Date of Service: 04/02/24 Narrative: Operative note by [facility] Preoperative diagnosis:1. Right neck hematoma 2. Bleeding status post carotid endarterectomy Postoperative diagnosis: Same Procedure: Evacuation of right neck hematoma Surgeon:Federico Shen M.D. Tire Installer: Richy Anesthesia: General Specimens: None Drains: None Estimated blood loss: 100 mL Indications: 89-year-old gentleman who yesterday morning had undergone uneventful right carotid endarterectomy was observed in the ICU and had continuous bleeding. Although he was hemodynamically stable his hematocrit was trending down. In addition there was a significant bleed from the neck. At this point decision was made to undergo right neck exploration. The patient has signed the informed consent after reviewing risks, complications, benefits, and alternatives previously discussed with the patient. The patient was given the opportunity to ask any additional questions or voice any concerns. All questions were answered to the patient's satisfaction. Procedure in detail: After OR team and anesthesia staff had to be called in emergently overnight. Patient was brought to the operating room prior to which a time-out was called for patient identification site verification. Right neck was prepped and draped in standard surgical fashion. The previous incision was reopened using Metzenbaum scissors. We went down and explored all the way down to the carotid. We evacuated hematoma the area was thoroughly irrigated out. There was no focal findings of any specific bleed. We explored the carotid patch in its entirety no sites are evidence of bleeding. We then re-evaluated the previous ligated facial branch of the internal jugular. This had been double ligated from the previous procedure. There was no evidence of bleed from there. At this point we thoroughly irrigated out the tissue beds. We then place no right on the carotid patch. And the side fermin and muscle beds were reexamined. We used meticulous electrocautery to obtain absolute hemostasis. Once this was all accomplished we then used wrist Tisseel to obtain hemostasis throughout. Deep layer was reapproximated using 2 0 Polysorb superficial layer with 3-0 poly Sorb and finally skin with a 4-0 Monocryl. Of note the prior drain was removed. Patient awoke neurologically intact and hemodynamically stable. Returned to recovery with stable vitals. This note is constructed using voice recognition software. While every effort has been made to ensure accuracy, contract administration coordinator errors may have been included. Thank you for allowing me to participate in the care of your patient. Yours sincerely, Federico Shen MD, FACS, R.P.V.I.
[2024-04-02 05:59] LABS: MANUAL DIFF FLAG NO
[2024-04-02 06:15] LABS: Anion Gap 10 (12-20); Blood Urea Nitrogen 18 mg/dL (9-16); Calcium 8.8 mg/dL (8.4-10.2); Carbon Dioxide 22 mmol/L (22-29); Chloride 111 mmol/L (96-108); Creatinine Clr Calc Pharmacy 74.2; Estimated Glomerular Filt Rate > 60; Glucose Random 134 mg/dL (60-115); Potassium 4.3 mmol/L (3.3-5.1); Sodium 139 mmol/L (135-145)
[2024-04-02 06:21] LABS: Basophils Percent Auto 0.2 % (0-2); Eosinophils Percent Auto 0.1 % (0-4); Hematocrit 26.9 % (42.0-52.0); Hemoglobin 8.9 g/dl (14.0-18.0); Imm Gran Abs Auto 0.05 X10*3/uL (0.00-0.03); Imm Gran Pct Auto 0.5 % (0.0-0.4); Lymphocytes Absolute Auto 1.6 X10*3/uL (1.2-4.9); Lymphocytes Percent Auto 16.5 % (20-40); Mean Corpuscular HGB Conc 33.1 g/dl (31.0-36.0); Mean Corpuscular Hemoglobin 28.3 pg (27.0-33.0); Mean Corpuscular Volume 85.7 fL (80.0-98.0); Mean Platelet Volume 10.5 fL (9.4-12.4); Monocytes Absolute Auto 0.8 X10*3/uL (0.1-1.2); Monocytes Percent Auto 7.9 % (2-11); Neutrophils Absolute Auto 7.3 x10*3/uL (2.0-8.3); Neutrophils Percent Auto 74.8 % (45-73); Platelet Count 218 X10*3/uL (160-400); Red Blood Count 3.14 X10*6/uL (4.60-5.80); Red Cell Distribution Width 13.3 % (11.0-16.0); White Blood Count 9.7 X10*3/uL (4.8-10.8)
--- NOTE | 2024-04-02 10:39 | MHC.CM.PN ---
Met w/pt to review d/c planning needs: pt resides w/family and is active with [facility]. He uses a cane but has no other DME or services. HCP on file: IMM in chart. Referred back to [facility] for skilled RN visits. Family to transport to home on 04/03. CM to follow
[2024-04-02 11:25] LABS: Hematocrit 25.2 % (42.0-52.0); Hemoglobin 8.4 g/dl (14.0-18.0)
--- NOTE | 2024-04-02 11:25 | PC.NURSE ---
Addendum entered by Ember Pierce RN 04/02/24 16:07: MD notified of BP trends, no new orders at this time. Safety precautions in place, plan of care ongoing. Original Note: report recieved from overnight RN. Pt A+Ox4, speech is clear. Attempted med pass, pt reports difficulty swallowing small sip of water, MD notified. DBP noted to be 40s - MD notified with response have schedule analyst review . Loss Prevention/Safety District Manager notified of MD request. Pt denies dizziness/lightheadedness, numbness/tingling or difficulty breathing. C/o soreness to surgical site. safety precautions remain in place, plan of care ongoing.
--- NOTE | 2024-04-02 11:41 | P.PNCC_ITS ---
Subjective Subjective Date of Service: 04/02/24 Critical Care Time (minutes): 35 Physical Exam 2 Vital Signs: Vital Signs: Last Vital Signs Temp 97.8 F 04/02/24 08:00 Pulse 72 04/02/24 11:00 Resp 19 04/02/24 11:00 BP 120/46 L 04/02/24 11:00 Pulse Ox 99 04/02/24 11:00 O2 Del Method Room Air 04/02/24 11:00 O2 Flow Rate 1 04/02/24 07:00 BMI result Body Mass Index 24.5 Objective Data Labs 04/02/24 11:09 04/02/24 05:24 Labs: Laboratory Results - last 24 hr 04/01/24 04/01/24 04/01/24 14:11 15:44 21:56 WBC 12.3 H RBC 4.10 L Hgb 11.8 L 10.4 L Hct 34.7 L 31.2 L MCV 84.6 MCH 28.8 MCHC 34.0 RDW 13.3 Plt Count 215 MPV 9.9 Immature Gran % (Auto) Neut % (Auto) Lymph % (Auto) [place] % (Auto) Eos % (Auto) Baso % (Auto) Lymph # (Auto) [place] # (Auto) Eos # (Auto) Baso # (Auto) Abs Immat Gran (auto) Absolute Neuts (auto) Absolute Nucleated RBC 0.000 Nucleated RBC % (auto) 0.0 PT 12.3 INR 1.0 Sodium 139 Potassium 4.2 Chloride 111 H Carbon Dioxide 21 L Anion Gap 11 L BUN 16 Creatinine 0.86 Estim Creat Clear Calc 69.0 Estimated GFR > 60 POC Glucose 133 H Random Glucose 167 H Calcium 8.7 Total Bilirubin 0.2 AST 12 ALT 9 Alkaline Phosphatase 72 Total Protein 5.7 L Albumin 3.4 L 04/02/24 04/02/24 04/02/24 01:46 05:24 11:09 WBC 9.7 RBC 3.14 L D Hgb 9.7 L 8.9 L 8.4 L Hct 28.4 L 26.9 L 25.2 L MCV 85.7 MCH 28.3 MCHC 33.1 RDW 13.3 Plt Count 218 MPV 10.5 Immature Gran % (Auto) 0.5 H Neut % (Auto) 74.8 H Lymph % (Auto) 16.5 L [place] % (Auto) 7.9 Eos % (Auto) 0.1 Baso % (Auto) 0.2 Lymph # (Auto) 1.6 [place] # (Auto) 0.8 Eos # (Auto) 0.0 Baso # (Auto) 0.0 Abs Immat Gran (auto) 0.05 H Absolute Neuts (auto) 7.3 Absolute Nucleated RBC 0.000 Nucleated RBC % (auto) 0.0 PT INR Sodium 139 Potassium 4.3 Chloride 111 H Carbon Dioxide 22 Anion Gap 10 L BUN 18 H Creatinine 0.80 Estim Creat Clear Calc 74.2 Estimated GFR > 60 POC Glucose Random Glucose 134 H Calcium 8.8 Total Bilirubin AST ALT Alkaline Phosphatase Total Protein Albumin Progress Note: A&P Assessment and plan (1) Hyperlipidemia, unspecified: Status: Acute (2) CVA (cerebral vascular accident): Status: Acute (3) CAD (coronary artery disease): Status: Acute (4) Difficult Fam catheter placement: Status: Acute (5) Afib: Status: Acute Plan 89-year-old gentleman with PMH of CVA with bilateral carotid artery stenosis, status post left carotid endarterectomy few months ago, history of prostate and colon cancer coronary artery disease GERD hypertension, carpal tunnel syndrome was found to have 90% stenosis of the right carotid as patient had some questionable seizures and questionable new stroke. Patient is electively admitted for a right carotid endarterectomy which she underwent successfully this morning. During the surgery patient had Fam catheter insertion following which she had jeff hematuria, Urology has been consulted and currently hematuria is better. He is being admitted to ICU for postop monitoring. Right carotid artery stenosis: History of cerebrovascular accident: Status post endarterectomy yesterday, had bleeding through incision site needed re-exploration overnight. Dressing dry this morning will continue to closely monitor his blood pressures, avoid hypotension/hypertenson We will closely monitor to look for any signs of difficulty in breathing or difficulty in swallowing. continue holding asprin and plavix. Monitor DEE drain output Platelet count, INR, CMP looks normal. Hemoglobin stable Hematuria: Has a history of prostatic cancer improved, leave the Fam catheter in We will closely monitor Quality Stroke Does the patient have a stroke diagnosis?: No VTE Prior VTE?: No VTE Risk Level:: Surgical - low VTE Device Contraindication: N/A - Device Ordered VTE Drug Contraindication: Treatment Not Tolerated
--- NOTE | 2024-04-02 13:17 | HO.POSTANES ---
Post Anesthesia Evaluation Post Anesthesia Evaluation Date of Service: 04/02/24 Vital Signs: Vital Signs Temp Pulse Resp BP Pulse Ox O2 Del Method O2 Flow Rate 04/02/24 12:00 98.5 F 76 15 122/49 L 95 Nasal Cannula 1 04/02/24 11:00 72 19 120/46 L 99 Room Air 04/02/24 10:00 71 18 120/43 L 90 L Room Air 04/02/24 09:11 96 Room Air 04/02/24 09:00 54 15 125/44 L 91 L Room Air 04/02/24 08:00 97.8 F 55 15 122/40 L 04/02/24 07:00 52 15 131/47 L 94 Nasal Cannula 1 04/02/24 06:00 63 13 113/48 L 96 Nasal Cannula 1 04/02/24 05:03 64 17 129/57 L 96 Simple Mask 1 04/02/24 05:02 66 122/51 L 98 Simple Mask 1 04/02/24 04:55 65 13 94/46 L 100 Simple Mask 4 04/02/24 04:45 97.6 F 67 15 107/55 L 97 Simple Mask 4 04/02/24 03:00 63 21 H 128/49 L 95 Room Air 04/02/24 02:00 69 19 126/51 L 97 Room Air Anesthesia: General Endotracheal-GETA Mental Status: Awake Pain Control: Satisfactory Nausea/Vomiting: None Hydration: Adequate Anesthesia-Related Issues: No Anes. Related Issues Comments: Patient was taken back to the OR overnight for continued bleeding. Awake, alert. C/o some difficulty swallowing. Still some swelling at surgical site. Patient states that he was just seen by Dr Shen. No other complaints. VSS. No anesthetic complications.
[2024-04-02] MEDS: HYDROmorphone HCl 0.5 MG/0.5 ML SYRINGE IVPUSH (19:31)
[2024-04-03] VITALS (25 sets, daily range): BP systolic 98–146; BP diastolic 35–85; PULSE 67–103; RESP 13–23; TEMP 36.6–37.1; O2SAT 88–98; BMI 25.8
[2024-04-03] MEDS: 0.9 % Sodium Chloride Flush 3 ML SYRINGE IVFLUSH ×2 (00:02→23:45)
--- NOTE | 2024-04-03 01:22 | PC.NURSE ---
Assumed care of patient at 1900. Patient A&Ox4, denies any numbness or tingling, vision changes , or dizziness. NSR with occcasional PVC's on telemetry. Lung sounds clear. Oxygen increased to 2L NC while sleeping, desating to 80's .Patient stating a known history of sleep apnea. Fam catheter in place, draining clear yellow urine. Patient remains NPO , no meds administered by mouth, d/t difficulty swallowing per pipe bender . Right neck surgical site edema noted , dressing CDI.
[2024-04-03] MEDS: 0.9 % Sodium Chloride 1,000 ML 80 ML IVCONT (02:17)
[2024-04-03 06:22] LABS: MANUAL DIFF FLAG NO
[2024-04-03 06:25] LABS: Basophils Percent Auto 0.4 % (0-2); Eosinophils Absolute Auto 0.2 X10*3/uL (0.0-0.4); Eosinophils Percent Auto 2.8 % (0-4); Hematocrit 23.4 % (42.0-52.0); Imm Gran Abs Auto 0.04 X10*3/uL (0.00-0.03); Imm Gran Pct Auto 0.5 % (0.0-0.4); Lymphocytes Absolute Auto 1.5 X10*3/uL (1.2-4.9); Lymphocytes Percent Auto 19.7 % (20-40); Mean Corpuscular HGB Conc 34.2 g/dl (31.0-36.0); Mean Corpuscular Hemoglobin 29.5 pg (27.0-33.0); Mean Corpuscular Volume 86.3 fL (80.0-98.0); Mean Platelet Volume 10.3 fL (9.4-12.4); Monocytes Absolute Auto 0.8 X10*3/uL (0.1-1.2); Monocytes Percent Auto 10.6 % (2-11); Platelet Count 165 X10*3/uL (160-400); Red Blood Count 2.71 X10*6/uL (4.60-5.80); Red Cell Distribution Width 13.7 % (11.0-16.0); White Blood Count 7.6 X10*3/uL (4.8-10.8)
[2024-04-03 06:44] LABS: Alanine Aminotransferase 6 U/L (0-40); Albumin Level 2.9 g/dL (3.5-5.0); Alkaline Phosphatase 57 U/L (39-117); Anion Gap 9 (12-20); Aspartate Amino Transferase 10 U/L (5-37); Bilirubin Total 0.3 mg/dL (0.0-1.0); Blood Urea Nitrogen 14 mg/dL (9-16); Calcium 7.9 mg/dL (8.4-10.2); Carbon Dioxide 23 mmol/L (22-29); Chloride 112 mmol/L (96-108); Creatinine Clr Calc Pharmacy 89.9; Estimated Glomerular Filt Rate > 60; Glucose Random 95 mg/dL (60-115); Potassium 3.9 mmol/L (3.3-5.1); Sodium 140 mmol/L (135-145); Total Protein 4.7 g/dL (6.5-8.0)
--- NOTE | 2024-04-03 08:23 | PC.NURSE ---
Addendum entered by Neri Medellin RN 04/03/24 18:35: reported to MD pt's neck is more swollen compared to this AM. MD assessed at bedside. no new orders at this time Addendum entered by Neri Medellin RN 04/03/24 12:02: per MD goal BP is SBP>90 Addendum entered by Neri Medellin RN 04/03/24 09:14: md informed pt SBP drops to 70-80s. albumin being administered as ordered. Original Note: Bedside swallow eval performed by this RN. pt stated he is having difficulty swallowing and feels like its going down his airway, coughing and requiring suction. NPO status will be maintained, speech therapy ordered. Pt requiring O2 at this time and MAP noted to drop below 60 while pt is asleep/resting. MD informed.
[2024-04-03] MEDS: Albumin Human 25 % 100 ML 133.33 ML IV ×2 (08:49→09:40)
--- NOTE | 2024-04-03 09:32 | HO.VASCPN ---
Subjective Subjective Date of Service: 04/03/24 Patient reports: no new complaints and feels better Interval history: Very pleasant 81-year-old gentleman for follow-up status post carotid endarterectomy and take back for bleed. Appears to be doing relatively well today. He is somewhat somnolent but overall reports he is feeling better. His throat does feel better. No bleeding events overnight. His blood pressure has been somewhat labile. He has been started on albumin this morning Physical Exam Vital Signs: Vital Signs: Last Vital Signs Temp 97.8 F 04/03/24 08:00 Pulse 70 04/03/24 09:00 Resp 15 04/03/24 09:00 BP 98/40 L 04/03/24 09:00 Pulse Ox 96 04/03/24 09:00 O2 Del Method Nasal Cannula 04/03/24 09:00 O2 Flow Rate 2 04/03/24 09:00 Oxygen Flow Rate 2 04/03/24 07:56 BMI result Body Mass Index 25.8 Const: General: cooperative, healthy appearing and no acute distress Orientation/consciousness: oriented to person, oriented to place and oriented to time HEENT: Head: Yes normal to inspection Neck: Carotids: no bruits Chest: Chest palpation & inspection: normal inspection of the chest Resp: Effort & Inspection: normal respiratory effort and able to speak in complete sentences Auscultation: clear to auscultation bilaterally Cardio: Rate: regular rate Heart sounds: S1 normal heart sound present and S2 normal heart sound present GI: Inspection: Yes normal to inspection Skin: Other: Right neck incision status General skin exam: no rashes or lesions noted Wounds: no wounds Neuro: General: oriented to person, oriented to place, oriented to time and CN's II-XI intact bilaterally Extrem: General: Yes normal to inspection, Yes full ROM and Yes no clubbing, cyanosis or edema Psych: Appearance: grossly normal and well kempt Speech and movement: Normal speech and movement present Affect: normal affect Progress Note: A&P Assessment and plan (1) Bilateral carotid artery stenosis: Status: Acute Assessment and Plan: In short patient appears to be stable status post carotid endarterectomy. He did feel speech and swallow and will need to reassess. In addition I did discuss with the ICU team about his Fam. He is little somnolent. As he becomes more stable will reassess speech and swallow. Will require ICU level care for now until patient's blood pressure becomes more stable Thank you for allowing us to assist in his care. Time Spent With Patient Time: Total time managing care of this patient today ____ minutes. Procedures Date of Service Date of Service: 04/03/24 Quality Stroke Does the patient have a stroke diagnosis?: No VTE Prior VTE?: No VTE Risk Level:: Surgical - low VTE Device Contraindication: N/A - Device Ordered VTE Drug Contraindication: Treatment Not Tolerated
--- NOTE | 2024-04-03 09:36 | PM.CCPN ---
Subjective Subjective Date of Service: 04/03/24 Critical Care Time (minutes): 35 Comment: episodes of hypotension drowsy this morning, failed a swallow eval bedside Physical Exam Vital Signs: Vital Signs: Last Vital Signs Temp 97.8 F 04/03/24 08:00 Pulse 70 04/03/24 09:00 Resp 15 04/03/24 09:00 BP 98/40 L 04/03/24 09:00 Pulse Ox 96 04/03/24 09:00 O2 Del Method Nasal Cannula 04/03/24 09:00 O2 Flow Rate 2 04/03/24 09:00 Oxygen Flow Rate 2 04/03/24 07:56 BMI result Body Mass Index 25.8 General: acute distress, ill appearing and tired appearing Nutritional Appearance: well nourished and overweight Eyes: appearance normal, both eyes and all related structures; Alignment and Position: alignment normal and position normal Neck: No lymphadenopathy, no thyromegaly Resp: bilateral air entry equal, occasional added sounds present Cardio: Regular rate, regular rhythm; Heart sounds: S1 normal heart sound present and S2 normal heart sound present GI: soft, nontender, no guarding, no hepatosplenomegaly : bladder normal to inspection, bladder normal to palpation, no renal angle tenderness Skin: no rashes or lesions noted and elasticity normal Neuro: Drowsy, focal no focal deficit, moves all extremities Objective Data Labs 04/03/24 06:00 04/03/24 06:00 Labs: Laboratory Results - last 24 hr 04/02/24 04/03/24 11:09 06:00 WBC 7.6 RBC 2.71 L Hgb 8.4 L 8.0 L Hct 25.2 L 23.4 L MCV 86.3 MCH 29.5 MCHC 34.2 RDW 13.7 Plt Count 165 MPV 10.3 Immature Gran % (Auto) 0.5 H Neut % (Auto) 66.0 Lymph % (Auto) 19.7 L [place] % (Auto) 10.6 Eos % (Auto) 2.8 Baso % (Auto) 0.4 Lymph # (Auto) 1.5 [place] # (Auto) 0.8 Eos # (Auto) 0.2 Baso # (Auto) 0.0 Abs Immat Gran (auto) 0.04 H Absolute Neuts (auto) 5.0 Absolute Nucleated RBC 0.000 Nucleated RBC % (auto) 0.0 Sodium 140 Potassium 3.9 Chloride 112 H Carbon Dioxide 23 Anion Gap 9 L BUN 14 Creatinine 0.66 Estim Creat Clear Calc 89.9 Estimated GFR > 60 Random Glucose 95 Calcium 7.9 L D Total Bilirubin 0.3 AST 10 ALT 6 Alkaline Phosphatase 57 Total Protein 4.7 L Albumin 2.9 L Progress Note: A&P Assessment and plan (1) CAD (coronary artery disease): Status: Acute (2) CVA (cerebral vascular accident): Status: Acute (3) Carpal tunnel syndrome on both sides: Status: Acute (4) Afib: Status: Acute (5) Hyperlipidemia, unspecified: Status: Acute Plan 89-year-old gentleman with PMH of CVA with bilateral carotid artery stenosis, status post left carotid endarterectomy few months ago, history of prostate and colon cancer coronary artery disease GERD hypertension, carpal tunnel syndrome was found to have 90% stenosis of the right carotid as patient had some questionable seizures and questionable new stroke. Patient is electively admitted for a right carotid endarterectomy which she underwent successfully this morning. During the surgery patient had Fam catheter insertion following which she had jeff hematuria, Urology has been consulted and currently hematuria is better. He is being admitted to ICU for postop monitoring. Right carotid artery stenosis: History of cerebrovascular accident: Status post endarterectomy, surgical site looks okay, dry will continue to closely monitor his blood pressures, avoid hypotension/hypertenson We will closely monitor to look for any signs of difficulty in breathing or difficulty in swallowing. continue holding asprin and plavix. Monitor DEE drain output Platelet count, INR, CMP looks normal. Hemoglobin stable hypotension: mostly during sleep will treat with albumin infusion, if doesnt respond will give 1 litre of NS bolus and the next step would be adding vasopressors support seizures: will switch to Keppra IV Hematuria: Has a history of prostatic cancer improved, will consult urology to pull catheter out We will closely monitor Quality Stroke Does the patient have a stroke diagnosis?: No VTE Prior VTE?: No VTE Risk Level:: Surgical - low VTE Device Contraindication: N/A - Device Ordered VTE Drug Contraindication: Treatment Not Tolerated
--- NOTE | 2024-04-03 09:37 | P.CDIM_ITS ---
PROVIDER RESPONSE TEXT: To clarify, the appropriate diagnosis supported by the clinical indicators: Acute blood loss anemia QUERY TEXT: PHYSICIAN'S DOCUMENTATION REQUEST Date of Query: 04/02/2024 02:44 PM EDT Patient Name: Geoffrey Bone Admit Date: 04/01/2024 Dear Federico Shen MD, A review of the medical record indicates additional documentation may be needed. Please review below and update the documentation accordingly. Clinical Indicators: H&H on 04/01/24: 10.4/31.2 H&H on 04/02/24: 8.4/25.2 OR procedure on 04/01/24: Right Carotid endarterectomy with patch angioplasty OR procedure on 04/02/24: Evacuation of right neck hematoma Based on the above, could you clarify which of the following is the most likely type of anemia you ar e evaluating, treating, and/or monitoring? Acute blood loss anemia Acute blood loss anemia with baseline chronic anemia (specify type) Anemia of chronic disease indicate if neoplastic disease, CKD, or other Chronic iron deficiency anemia due to blood loss Vitamin B12 deficiency anemia indicate etiology, such as intrinsic factor deficiency, malabsorption, transcobalamin II deficiency, dietary, etc Folate deficiency anemia indicate etiology, such as dietary, drug-induced, etc Protein deficiency anemia Other (explain) Clinically unable to determine (explain) Thank you, Annie Villar RN Use of terms such as suspected, likely, concern for, or probable (associated with a specific diagnosi s that is being evaluated, monitored, or treated as if it exists) are acceptable and can be coded in the inpatient se tting, when documented at the time of discharge. Please use your independent medical judgment in providing your response. THIS QUERY IS PART OF THE PERMANENT MEDICAL RECORD
[2024-04-03] MEDS: levETIRAcetam 250 MG in 0.9 % Sodium Chloride 100 ML 410 MG IV ×2 (10:46→21:38)
[2024-04-03] MEDS: 0.9 % Sodium Chloride 1,000 ML 999 ML IV (10:46)
[2024-04-03] MEDS: Lactated Ringers 1,000 ML 80 ML IVCONT (13:25)
--- NOTE | 2024-04-03 15:20 | HO.POSTANES ---
Post Anesthesia Evaluation Post Anesthesia Evaluation Date of Service: 04/03/24 Vital Signs: Vital Signs Temp Pulse Resp BP Pulse Ox O2 Del Method O2 Flow Rate 04/03/24 15:00 99 16 116/53 L 88 L Nasal Cannula 2 04/03/24 14:00 83 15 110/41 L 94 Oxymask 2 04/03/24 13:00 78 18 110/37 L 95 Oxymask 2 04/03/24 12:00 98.3 F 78 18 99/35 L 97 Oxymask 2 04/03/24 11:00 70 15 112/40 L 92 Oxymask 2 04/03/24 10:00 83 20 112/44 L 91 L Nasal Cannula 2 04/03/24 09:00 70 15 98/40 L 96 Nasal Cannula 2 04/03/24 08:00 97.8 F 85 18 125/56 L 93 Nasal Cannula 2 04/03/24 07:56 95 Nasal Cannula 04/03/24 07:00 67 15 104/44 L 97 Nasal Cannula 2 04/03/24 06:00 72 13 100/35 L 95 Nasal Cannula 2 04/03/24 05:00 83 14 107/40 L 90 L Nasal Cannula 2 04/03/24 04:00 98.7 F 67 13 111/47 L 93 Nasal Cannula 2 Anesthesia: General Endotracheal-GETA Mental Status: Awake Pain Control: Satisfactory Nausea/Vomiting: None Hydration: Adequate Anesthesia-Related Issues: No Anes. Related Issues
--- NOTE | 2024-04-03 15:49 | MHC.CM.PN ---
Patient s/p R endarterectomy 04/02. Patient returned to OR for evacuation of hematoma. Patient is AVSS 2Lo2. DP home with resumption of [facility]. Patient will arrange for transportation home.
--- NOTE | 2024-04-03 17:18 | MHC.SL.SWA ---
Risk of Aspiration Due to: Lethargy Weak Voice Carotid surgery Dysphasia Diet Status: NPO Liquid Consistency and Strategies for Safe Swallow: Liquid Intake Recommendation: NPO Solid Food Consistency: Dietary Recommendations: NPO Oral Medication Intake: NPO Please contact the pharmacy regarding appropriate crushable or liquid drug formulations that are available whenever modified delivery is recommended. Recommendation for Speech: Comment: Recommend continue NPO at this time w/ re-eval by [employer] [facility]. Pts presentation (changed vocal quality, difficulty w/ pitch glides, and globus sensation) may be indicative of damage to vagus nerve which may also be reason for swallowing difficulty. Pt presented w/ consistent throat clear across all PO trials and reported puree solids got stuck. Pt may benefit from PPN as this would be day 3 NPO. Likely to benefit from instrumental swallow eval at later date. Frequency/Duration: daily M-F Service Unit Operator [employer] Clinican/Clinical Fellow: No Supervisory Statement: I have reviewed and agree with the student/clinical fellow's documentation: N/A Speech Language Pathologist: Daisy Chong M.A., CCC-[employer]OOK[employer]
[2024-04-03] MEDS: HYDROmorphone HCl 0.5 MG/0.5 ML SYRINGE IVPUSH (17:39)
[2024-04-03 22:11] LABS: Anion Gap 14 (12-20); Blood Urea Nitrogen 11 mg/dL (9-16); Calcium 7.9 mg/dL (8.4-10.2); Carbon Dioxide 19 mmol/L (22-29); Chloride 112 mmol/L (96-108); Creatinine Clr Calc Pharmacy 104.1; Estimated Glomerular Filt Rate > 60; Glucose Random 77 mg/dL (60-115); Potassium 3.8 mmol/L (3.3-5.1); Sodium 141 mmol/L (135-145)
[2024-04-04] VITALS (25 sets, daily range): BP systolic 100–146; BP diastolic 37–98; PULSE 70–98; RESP 12–21; TEMP 36.6–37.1; O2SAT 9–100
[2024-04-04] MEDS: Lactated Ringers 1,000 ML 80 ML IVCONT ×3 (01:42→21:43)
[2024-04-04 06:05] LABS: Glucose, Whole Blood 64 mg/dL (60-115)
[2024-04-04 06:08] LABS: Hematocrit 23.5 % (42.0-52.0); Hemoglobin 7.6 g/dl (14.0-18.0); Mean Corpuscular HGB Conc 32.3 g/dl (31.0-36.0); Mean Corpuscular Hemoglobin 28.3 pg (27.0-33.0); Mean Corpuscular Volume 87.4 fL (80.0-98.0); Mean Platelet Volume 10.4 fL (9.4-12.4); Platelet Count 171 X10*3/uL (160-400); Red Blood Count 2.69 X10*6/uL (4.60-5.80); Red Cell Distribution Width 13.2 % (11.0-16.0); White Blood Count 6.3 X10*3/uL (4.8-10.8)
[2024-04-04] MEDS: Dextrose 10 % 250 ML 750 ML IV (06:18)
[2024-04-04] MEDS: 0.9 % Sodium Chloride Flush 3 ML SYRINGE IVFLUSH ×2 (07:53→15:08)
--- NOTE | 2024-04-04 10:07 | P.PNCC_ITS ---
Subjective Subjective Date of Service: 04/04/24 Critical Care Time (minutes): 40 Comment: Episodes of hypotension has improved today, blood pressure is more stable as he is more awake We are pending on speech evaluation for swallowing Neck swelling slightly worsened overnight but stable this morning On 2 L nasal cannula oxygen saturations about 90 Physical Exam 2 Vital Signs: Vital Signs: Last Vital Signs Temp 98.5 F 04/04/24 08:00 Pulse 79 04/04/24 09:00 Resp 18 04/04/24 09:00 BP 136/62 04/04/24 09:00 Pulse Ox 92 04/04/24 09:00 O2 Del Method Oxymask 04/04/24 09:00 O2 Flow Rate 2 04/04/24 09:00 Oxygen Flow Rate 2 04/04/24 07:51 BMI result Body Mass Index 25.8 General: acute distress, ill appearing and tired appearing Nutritional Appearance: well nourished and overweight Eyes: appearance normal, both eyes and all related structures; Alignment and Position: alignment normal and position normal Neck: No lymphadenopathy, no thyromegaly, surgical site looks okay, swelling stable Resp: bilateral air entry equal, occasional added sounds present Cardio: Regular rate, regular rhythm; Heart sounds: S1 normal heart sound present and S2 normal heart sound present GI: soft, nontender, no guarding, no hepatosplenomegaly : bladder normal to inspection, bladder normal to palpation, no renal angle tenderness Skin: no rashes or lesions noted and elasticity normal Neuro: oriented to person, oriented to place, oriented to time and moves all extremities Objective Data Labs 04/04/24 05:25 04/03/24 21:27 Labs: Laboratory Results - last 24 hr 04/03/24 04/04/24 04/04/24 21:27 05:25 06:01 WBC 6.3 RBC 2.69 L Hgb 7.6 L Hct 23.5 L MCV 87.4 MCH 28.3 MCHC 32.3 RDW 13.2 Plt Count 171 MPV 10.4 Absolute Nucleated RBC 0.000 Nucleated RBC % (auto) 0.0 Sodium 141 Potassium 3.8 Chloride 112 H Carbon Dioxide 19 L Anion Gap 14 BUN 11 Creatinine 0.57 Estim Creat Clear Calc 104.1 Estimated GFR > 60 POC Glucose 64 Random Glucose 77 Calcium 7.9 L Progress Note: A&P Assessment and plan (1) Hyperlipidemia, unspecified: Status: Acute (2) Afib: Status: Acute (3) CAD (coronary artery disease): Status: Acute (4) CVA (cerebral vascular accident): Status: Acute (5) Complex partial seizure disorder: Status: Acute (6) Carpal tunnel syndrome on both sides: Status: Acute Plan 89-year-old gentleman with PMH of CVA with bilateral carotid artery stenosis, status post left carotid endarterectomy few months ago, history of prostate and colon cancer coronary artery disease GERD hypertension, carpal tunnel syndrome was found to have 90% stenosis of the right carotid as patient had some questionable seizures and questionable new stroke. Patient is electively admitted for a right carotid endarterectomy on 04/02/2024 admitted to ICU for postop monitoring. Right carotid artery stenosis: History of cerebrovascular accident: Status post endarterectomy, pod 3 surgical site looks okay, dry will continue to closely monitor his blood pressures, avoid hypotension/hypertenson We will closely monitor to look for any signs of difficulty in breathing or difficulty in swallowing. continue holding asprin and plavix. On statins Monitor DEE drain output, swelling stable. Has history of swelling that lasted for about 2 months post left carotid endarterectomy Platelet count, INR, CMP looks normal. Hemoglobin stable seizures: Continue Keppra IV Hypertension: Amlodipine restarted Prophylaxis: Lovenox Quality Stroke Does the patient have a stroke diagnosis?: No VTE Prior VTE?: No VTE Risk Level:: Surgical - low VTE Device Contraindication: N/A - Device Ordered VTE Drug Contraindication: Treatment Not Tolerated
[2024-04-04] MEDS: levETIRAcetam 250 MG in 0.9 % Sodium Chloride 100 ML 410 MG IV ×2 (10:21→21:38)
[2024-04-04] MEDS: Enoxaparin Sodium 40 MG/0.4 ML SYRINGE SUBCUT (10:22)
--- NOTE | 2024-04-04 10:31 | HO.VASCPN ---
Subjective Subjective Date of Service: 04/04/24 Patient reports: no new complaints and feels better Interval history: Patient seen and examined. No significant events overnight. Reports he is feeling much better. Much more awake and alert this morning. Awaiting repeat speech and swallow eval. Patient is eager to get up. Physical Exam Vital Signs: Vital Signs: Last Vital Signs Temp 98.5 F 04/04/24 08:00 Pulse 70 04/04/24 10:00 Resp 20 04/04/24 10:00 BP 127/46 L 04/04/24 10:00 Pulse Ox 90 L 04/04/24 10:00 O2 Del Method Nasal Cannula 04/04/24 10:00 O2 Flow Rate 2 04/04/24 10:00 Oxygen Flow Rate 2 04/04/24 07:51 BMI result Body Mass Index 25.8 Const: General: cooperative, healthy appearing and no acute distress Orientation/consciousness: oriented to person, oriented to place and oriented to time HEENT: Head: Yes normal to inspection Neck: Carotids: no bruits Chest: Chest palpation & inspection: normal inspection of the chest Resp: Effort & Inspection: normal respiratory effort and able to speak in complete sentences Auscultation: clear to auscultation bilaterally Cardio: Rate: regular rate Heart sounds: S1 normal heart sound present and S2 normal heart sound present GI: Inspection: Yes normal to inspection Skin: Other: Right neck hematoma and swelling noted General skin exam: no rashes or lesions noted Wounds: no wounds Neuro: General: oriented to person, oriented to place, oriented to time and CN's II-XI intact bilaterally Extrem: General: Yes normal to inspection, Yes full ROM and Yes no clubbing, cyanosis or edema Psych: Appearance: grossly normal and well kempt Speech and movement: Normal speech and movement present Affect: normal affect Progress Note: A&P Assessment and plan (1) Bilateral carotid artery stenosis: Status: Acute Plan In short patient is status post right carotid endarterectomy with take back for bleeding. Appears to be doing relatively well. Would like to get arterial line now. In addition would like to get Fam out. Patient needs to be up and ambulatory as well. If tolerates p.o. would transfer to the floor. Thank you to the grants analyst for their assistance in his care. Time Spent With Patient Time: Total time managing care of this patient today ____ minutes. Procedures Date of Service Date of Service: 04/04/24 Quality Stroke Does the patient have a stroke diagnosis?: No VTE Prior VTE?: No VTE Risk Level:: Surgical - low VTE Device Contraindication: N/A - Device Ordered VTE Drug Contraindication: Treatment Not Tolerated
--- NOTE | 2024-04-04 11:57 | MHC.CM.PN ---
Pt remains in ICU pending a swallow eval - if he is able to eat and ambulate, he will transfer to the medical floor for continued recovery. Pt is active with [facility] and will return home w/services once recovered. Family will transport. CM to follow.
--- NOTE | 2024-04-04 12:18 | MHC.SL.SWA ---
Risk of Aspiration Due to: Lethargy Weak Voice Carotid surgery Dysphasia Diet Status: No change Liquid Consistency and Strategies for Safe Swallow: Liquid Intake Recommendation: NPO Solid Food Consistency: Dietary Recommendations: NPO Oral Medication Intake: NPO Please contact the pharmacy regarding appropriate crushable or liquid drug formulations that are available whenever modified delivery is recommended. Recommendation for Speech: Comment: Pt presented w/ consistent throat clear across all PO trials w/ exception of ice chips. Pt's vocal quality and performance w/ PO trials is still concerning for vagus nerve damage and ?vocal fold paresis/paralysis. Recommend further evaluation w/ instrumental. MBSS ordered by . Ice chips w/ supervision OK prior to MBSS. Rn Field Clinican/Clinical Fellow: No Supervisory Statement: I have reviewed and agree with the student/clinical fellow's documentation: N/A Speech Language Pathologist: Daisy Chong M.A., CCC-[employer]
--- NOTE | 2024-04-04 16:55 | MHC.SL.IMP ---
Date of Plan of Treatment: 04/04/24 Onset of Symptoms/Illness: 04/01/24 Date Treatment Started: 04/03/24 Admitting Diagnosis: (1) Hyperlipidemia, unspecified: Status: Acute (2) Afib: Status: Acute (3) CAD (coronary artery disease): Status: Acute (4) CVA (cerebral vascular accident): Status: Acute (5) Complex partial seizure disorder: Status: Acute (6) Carpal tunnel syndrome on both sides: Status: Acute Primary Speech & Language Diagnosis: R13.12 Oropharyngeal Phase Dysphagia Reason for Today's Visit: 20209 Modified Barium Swallow Study Pre-evaluation Dietary Consistencies: NPO Pre-evaluation Liquid Consistency: NPO Pre-evaluation Medication Administration: NPO Medical History: Modified Barium Swallow Study Fluoroscopic Evaluation of Swallowing Function CPT Code 46130 Evaluation Year: 2023 Reason for Study: Patient presenting with overt s/s of aspiration at bedside. Referring Physician: Dk Rosenberg MD Evaluating Clinician: Mai Gonzalez MA, CCC-HOT DIP TINNING SUPERVISOR Study Number: 1 Patient Name: Geoffrey Bone Status: Inpatient, Stretcher Age: 89 Gender: Male Medical History CAD, cardiac stent, L-carotid surgery Nov 2023, GERD Current (pre-evaluation) Intake/Diet: Route: NPO pending MBSS results Pre-Study Functional Oral Intake Scale (FOIS): 1- No oral intake Pain: None reported at time of study SUBJECTIVE: Patient is an 89 year old male admitted to the ICU for post-op monitoring after R-carotid endarterectomy. Course complicated by questionable CVA and questionable seizures. Patient was referred to Speech Pathology after he reported feeling like he was choking, subsequently needing suctioning. When evaluated at bedside, he was noted by the speech pathologist to be consistently clearing his throat with PO intake. He also presents with new onset dysphonia, concern for vocal fold paralysis and/or cranial nerve (vagus) involvement. Food and Liquid Trials: Oral Impairment: Lip Closure: Did not test Oral Impairment: Tongue Control During Bolus Hold: 2=Posterior escape of less than half of bolus Oral Impairment: Bolus Preparation/Mastication: 2=Disorganized chewing/mashing with solid pieces of bolus Oral Impairment: Bolus Transport/Lingual Motion: 3=Repetitive/disorganized tongue motion Oral Impairment: Oral Residue: 2=Residue collection on oral structures Oral Impairment:Initiation of Pharyngeal Swallow: 1=Bolus head in valleculae Pharyngeal Impairment: Soft Palate Elevation: 0=No bolus between soft palate (SP)/pharyngeal wall (PW) Pharyngeal Impairment: Laryngeal Elevation: 1=Partial thyroid cartilage/arytenoids to epiglottic petiole movement Pharyngeal Impairment: Anterior Hyoid Excursion: 1=Partial anterior movement Pharyngeal Impairment: Epiglottic Movement: 1=Partial inversion Pharyngeal Impairment: Laryngeal Vestibular Closure:: 1=Incomplete: narrow column air/contrast in laryngeal vestibule Pharyngeal Impairment: Pharyngeal Stripping Wave: 1=Present: diminished Pharyngeal Impairment: Pharyngeal Contraction: Did not test Pharyngeal Impairment: Pharyngoesophageal Segment Openin=Complete distension and complete duration: no obstruction of flow Pharyngeal Impairment: Tongue Base (TB) Retraction: 1=Trace column of contrast/air between TB and posterior PW Pharyngeal Impairment: Pharyngeal Residue: 2=Collection of residue within or on pharyngeal structures Pharyngeal Impairment: Esophageal Clearance Upright Position: Did not test Impressions and Recommendations OBJECTIVE: Time-out: performed at 15:00 Evaluation Start: 14:30; Stop: 14:35 Patient Positioning: Seated 70-90 degrees Viewing Planes: LATERAL ONLY Contrast: MBSImP? Standardized Protocol using commercially prepared, standardized Barium viscosities, including: Varibar? THIN LIQUID (40% w/v, <15 cps) , Varibar? NECTAR (40% w/v, <150-450 cps) , 1/2 Shortbread Cookie (1 x1 x.25 ) MBSImP [id number]: Lip closure for intraoral bolus containment could not be assessed due to logistical reasons not related to physiologic impairment. Tongue control during bolus hold resulted in posterior escape of less than half of the bolus. Bolus preparation and mastication demonstrated disorganized chewing/mashing with solid pieces of the bolus unchewed. Bolus transport/lingual motion was with repetitive/disorganized motion of the tongue. Oral residue was a collection on oral structures. Initiation of the pharyngeal swallow occurred when the bolus head was in the valleculae. Soft palate elevation resulted in no bolus between the soft palate and the pharyngeal wall. Laryngeal elevation was decreased, with partial superior movement of the thyroid cartilage/partial approximation of the arytenoids to the epiglottic petiole. Anterior hyoid excursion demonstrated partial anterior movement. Epiglottic movement resulted in partial inversion. Laryngeal vestibular closure was incomplete, with a narrow column of air/contrast noted within the laryngeal vestibule at the height of the swallow. Pharyngeal stripping wave was present, but diminished. Pharyngeal contraction could not be determined due to logistical reasons not related to physiologic impairment. Pharyngoesophageal segment opening was completely distended for complete duration with no obstruction of bolus flow. Tongue base retraction allowed a trace column of contrast or air between the retracted tongue base and the posterior pharyngeal wall. Pharyngeal residue was a collection of residue within or on pharyngeal structures. Esophageal clearance in the upright position could not be assessed due to logistical reasons not related to physiologic impairment. Oral Impairment Score: 10 (absence of score, component 1) Pharyngeal Impairment Score: 7 (absence of score, component 13) Esophageal Impairment Score: --- (absence of score, component 17) Laryngeal Penetration and Aspiration: Penetration was observed in today's study. Cookie, Puree (Applesauce), [place]-thick (via Individual Cup Sips), Thin Contrast (via Individual Cup Sips) entered the airway, remained above the vocal folds, and were ejected from the airway. ASSESSMENT: This exam was conducted by the speech pathologist and the radiologist. Patient was seated upright in a stretcher for lateral view only. Patient was able to feed himself and trialed pureed, regular, thin, and nectar thick consistencies. Patient demonstrated reduced bolus control. There was premature posterior escape of trace amount of contrast, which subsequently collected in the valleculae, and on one occasion, entered the airway before the swallow. Disorganized mastication and repetitive tongue rocking motion. Pharyngeal swallow trigger initiated at the level of the valleculae. Post-swallow, there was mild residue coating the tongue, which cleared with a single dry swallow with trials of liquid and puree. Patient did swallow multiple times in order to clear residuals from harder solid. No nasopharyngeal reflux. Partial laryngeal elevation with partial epiglottic inversion and partial laryngeal vestibular closure. There was mild to moderate retention, increased with harder solid, in the valleculae and coating the posterior pharyngeal wall. Patient was able to clear most residue with multiple dry swallows. On first sip of thin liquid, there was penetration before the swallow with immediate cough, question subsequent aspiration of trace amount, however, unable to rule out aspiration as view was obstructed by patient?s shoulder. On subsequent trials of thin liquid, patient took very trace amounts at a time and demonstrated penetration above the vocal folds consistently. There was penetration intermittently with puree and nectar thick consistencies. Also note penetration with more contrast entering the airway on trial of regular texture while patient continued chewing remaining bolus. Patient demonstrated sensitive protective response. Patient cleared his throat, which ejected contrast from the airway. Liquid Intake Recommendation: [place] Thick Liquid Intake Strategies: Small Sips, No Straws, Liquids by Teaspoon Only Dietary Recommendations: Pureed (NDD1) Medication Administration: Crushed with Puree Please contact the pharmacy regarding appropriate crushable or liquid drug formulations that are available whenever modified delivery is recommended. Compensatory Strategies Recommended: Sitting Upright (90 deg), Double Swallow, No Straw, Liquids from Spoon, Small Bites and Sips, Rate of Ingestion Change, Avoid Specific Foods, Throat Clear Supervision during eating and or drinking: Total Supervision (1:1) Recommended Treatments: Compens. Strategy Educat. Recommendation for Speech Therapy: Inpatient Speech Therapy Text Comment: Intake Recommendations: Route: PO Diet Grade: Puree Liquid Consistencies: [place] Post-Study Functional Oral Intake Scale (FOIS): 5- Total oral intake of multiple consistencies requiring special preparation Penetration noted with all consistencies. Question probable aspiration with thin liquid. Patient demonstrated consistent throat clear when contrast had entered the airway. There was mild to moderate pharyngeal retention, cleared with multiple dry swallows. Recommend START on PUREED (NDD1) diet and NECTAR THICK liquids with the following strategies to maximize safety: -Liquids by teaspoon only -One sip at a time -Clear throat after taking sip and follow with dry swallow -Take small bites of food -Avoid mixed consistencies (i.e. thin broth with solid ingredients, purees with separation of liquid) -Clear throat between bites and follow with dry swallow(s) -Upright 90 degree position during PO intake and for at least 30 minutes afterwards -Daily oral care Patient is at risk of aspiration. He will require direct supervision and close monitoring with PO intake. Suggested Referrals: The patient might benefit from a referral to: Neurology Indication for Referral: Acute changes to voice and swallow Therapy Recommendations: Therapy will be continued- Speech Pathology will continue to follow patient during inpatient stay to provide patient with education in regards to MBSS results, recommended diet and strategies; conduct PO trials to train strategies and monitor patient?s tolerance of PO; and re-assess for potential upgrade when appropriate. Patient would benefit from repeat-MBSS. Short Term Goals: ? Diet - The patient will tolerate a pureed diet with nectar thick liquids without signs or symptoms of penetration/aspiration 100% of the time. - The patient will participate in therapeutic PO trials with the HOT DIP TINNING SUPERVISOR. ? Guidelines - The patient will comply with/recall the following guidelines/strategies 100% of the time with minimal cuing: [place]-thick Liquid, Bolus Volume Change, Rate of Ingestion Change, Liquid Wash, Additional Swallow(s) per Bolus, Throat Clear. ? Education - The patient, family, caregiver, nurse will verbalize/demonstrate understanding of the results of this evaluation, the above recommendations, and the swallowing guidelines. Frequency/Duration: M-F PRN Date Range for Service Requested: Timeline to reassess: PRN Clinician - Supplemental, Miscellaneous Communication: It is important to note MBSS objective studies are snapshots in time and Patient function might vary with factors such as time of day or concomitant medical conditions. For this reason, the final treatment plan for this patient should rest with their medical care team. Additional recommendations should be considered with the totality of the Patient in mind. Thank for the opportunity to participate in the care of this patient. If you have any questions about the content of this report, please contact the [facility] at [facility]. Education: Education regarding findings from today's study and plans for therapy were provided to Patient only through Verbal Instruction. Understanding was expressed by the Patient only. Positive Printer Operator Clinician/Clinical Fellow: No Supervisory Statement: N/A Speech Language Pathologist: Mai Gonzalez M.A., [facility]-HOT DIP TINNING SUPERVISOR
[2024-04-05] VITALS (16 sets, daily range): BP systolic 107–164; BP diastolic 52–78; PULSE 69–96; RESP 15–25; TEMP 36.4–37.2; O2SAT 90–97; BMI 24.6
--- NOTE | 2024-04-05 00:57 | PC.NURSE ---
CARE ASSUMED 7PM...ALERT..ORIENTED X3...VSS...RIGHT NECK SWELLING REMAINS PRESENT...PREVIOUSLY MARKED/DELINEATED....SWELLING UNCHANGED..DRESSING DRY/INTACT....LR 80 CC/HR...VOIDING YELLING URINE IN URINAL...MAYNARD WITH GOOD STRENGTH/CO-ORDINATION....ATE SMALL AMOUNT PUREED SUPPER AND THICKENED LIQUIEDS W/O DIFFICULTY....HS BP MEDS HELD PER ICU PA...BP STABLE...NSR..ISOLATED PVC..DENIES DISCOMFORT
[2024-04-05 05:11] LABS: VBG Base Excess 3.3 mmol/L; VBG HCO3 26 mmol/L (22-26); VBG pCO2 33 mmHg; VBG pO2 57 mmHg
[2024-04-05 05:17] LABS: MANUAL DIFF FLAG NO
[2024-04-05 05:19] LABS: Basophils Percent Auto 0.3 % (0-2); Eosinophils Absolute Auto 0.2 X10*3/uL (0.0-0.4); Eosinophils Percent Auto 3.5 % (0-4); Hematocrit 24.5 % (42.0-52.0); Hemoglobin 8.3 g/dl (14.0-18.0); Imm Gran Abs Auto 0.02 X10*3/uL (0.00-0.03); Imm Gran Pct Auto 0.3 % (0.0-0.4); Lymphocytes Absolute Auto 1.7 X10*3/uL (1.2-4.9); Lymphocytes Percent Auto 27.3 % (20-40); Mean Corpuscular HGB Conc 33.9 g/dl (31.0-36.0); Mean Corpuscular Hemoglobin 28.7 pg (27.0-33.0); Mean Corpuscular Volume 84.8 fL (80.0-98.0); Mean Platelet Volume 9.9 fL (9.4-12.4); Monocytes Absolute Auto 0.7 X10*3/uL (0.1-1.2); Monocytes Percent Auto 11.2 % (2-11); Neutrophils Absolute Auto 3.5 x10*3/uL (2.0-8.3); Neutrophils Percent Auto 57.4 % (45-73); Platelet Count 189 X10*3/uL (160-400); Red Blood Count 2.89 X10*6/uL (4.60-5.80); White Blood Count 6.1 X10*3/uL (4.8-10.8)
[2024-04-05 05:26] LABS: Venous Blood Gas Refer to POC result
[2024-04-05 05:39] LABS: Alanine Aminotransferase 6 U/L (0-40); Albumin Level 3.2 g/dL (3.5-5.0); Alkaline Phosphatase 56 U/L (39-117); Anion Gap 10 (12-20); Aspartate Amino Transferase 14 U/L (5-37); Bilirubin Total 0.5 mg/dL (0.0-1.0); Blood Urea Nitrogen 10 mg/dL (9-16); Calcium 8.6 mg/dL (8.4-10.2); Carbon Dioxide 26 mmol/L (22-29); Chloride 109 mmol/L (96-108); Creatinine Clr Calc Pharmacy 95.7; Estimated Glomerular Filt Rate > 60; Glucose Random 88 mg/dL (60-115); Potassium 3.6 mmol/L (3.3-5.1); Sodium 141 mmol/L (135-145); Total Protein 5.1 g/dL (6.5-8.0)
[2024-04-05] MEDS: Cyanocobalamin (Vitamin B-12) 1,000 MCG TABLET 1000 MCG PO (08:25)
[2024-04-05] MEDS: 0.9 % Sodium Chloride Flush 3 ML SYRINGE IVFLUSH ×2 (08:25→17:36)
[2024-04-05] MEDS: Metoprolol Tartrate 12.5 MG HALFTAB PO ×2 (08:25→20:15)
[2024-04-05] MEDS: Atorvastatin Calcium 40 MG TABLET PO (08:25)
--- NOTE | 2024-04-05 09:03 | HO.VASCPN ---
Subjective Subjective Date of Service: 04/05/24 Patient reports: no new complaints and feels better Interval history: Patient seen and examined. No significant events overnight. He has been started on a diet and feels significantly better. Fam is out and he is voiding freely. Was up to a chair yesterday. Of note his hemoglobin has stabilized at 8.3. Overall he feels fairly well. Physical Exam Vital Signs: Vital Signs: Last Vital Signs Temp 97.5 F 04/05/24 08:00 Pulse 91 04/05/24 08:00 Resp 19 04/05/24 08:00 BP 124/61 04/05/24 08:00 Pulse Ox 95 04/05/24 08:45 O2 Del Method Room Air 04/05/24 08:45 O2 Flow Rate 1 04/05/24 07:00 Oxygen Flow Rate 2 04/04/24 07:51 BMI result Body Mass Index 24.6 Const: General: cooperative, healthy appearing and no acute distress Orientation/consciousness: oriented to person, oriented to place and oriented to time HEENT: Head: Yes normal to inspection Neck: Carotids: no bruits Chest: Chest palpation & inspection: normal inspection of the chest Resp: Effort & Inspection: normal respiratory effort and able to speak in complete sentences Auscultation: clear to auscultation bilaterally Cardio: Rate: regular rate Heart sounds: S1 normal heart sound present and S2 normal heart sound present GI: Inspection: Yes normal to inspection Skin: Other: Right neck incision appears to be healing well. General skin exam: no rashes or lesions noted Wounds: no wounds Neuro: General: oriented to person, oriented to place, oriented to time and CN's II-XI intact bilaterally Extrem: General: Yes normal to inspection, Yes full ROM and Yes no clubbing, cyanosis or edema Psych: Appearance: grossly normal and well kempt Speech and movement: Normal speech and movement present Affect: normal affect Progress Note: A&P Assessment and plan (1) Bilateral carotid artery stenosis: Status: Acute Assessment and Plan: In short patient is status post right carotid endarterectomy with take back for bleeding. Appears to be doing much better. He has tolerating a diet. Will require observation for the next day or 2. Stable from my perspective for transfer up to [facility]. Once on floor will start with physical therapy. Will be with us through the weekend. Time Spent With Patient Time: Total time managing care of this patient today ____ minutes. Procedures Date of Service Date of Service: 04/05/24 Quality Stroke Does the patient have a stroke diagnosis?: No VTE Prior VTE?: No VTE Risk Level:: Surgical - low VTE Device Contraindication: N/A - Device Ordered VTE Drug Contraindication: Treatment Not Tolerated
--- NOTE | 2024-04-05 09:24 | P.PNCC_ITS ---
Subjective Subjective Date of Service: 04/05/24 Interval History: No new complaints, more alert oriented and looks better this morning Having breakfast this morning, states dysphagia has improved Blood pressure stable, good urine output Neck swelling looks okay Critical Care Time (minutes): 35 Physical Exam 2 Vital Signs: Vital Signs: Last Vital Signs Temp 97.5 F 04/05/24 08:00 Pulse 89 04/05/24 09:00 Resp 17 04/05/24 09:00 BP 120/57 L 04/05/24 09:00 Pulse Ox 90 L 04/05/24 09:00 O2 Del Method Room Air 04/05/24 09:00 O2 Flow Rate 1 04/05/24 07:00 Oxygen Flow Rate 2 04/04/24 07:51 BMI result Body Mass Index 24.6 General: Not in any acute distress, less ill appearing Nutritional Appearance: well nourished and overweight Eyes: appearance normal, both eyes and all related structures; Alignment and Position: alignment normal and position normal Neck: No lymphadenopathy, no thyromegaly Resp: bilateral air entry equal, occasional added sounds present Cardio: Regular rate, regular rhythm; Heart sounds: S1 normal heart sound present and S2 normal heart sound present GI: soft, nontender, no guarding, no hepatosplenomegaly : bladder normal to inspection, bladder normal to palpation, no renal angle tenderness Skin: no rashes or lesions noted and elasticity normal Neuro: oriented to person, oriented to place, oriented to time and moves all extremities Objective Data Labs 04/05/24 05:05 04/05/24 05:05 Labs: Laboratory Results - last 24 hr 04/05/24 04/05/24 05:02 05:05 WBC 6.1 RBC 2.89 L Hgb 8.3 L Hct 24.5 L MCV 84.8 MCH 28.7 MCHC 33.9 RDW 13.0 Plt Count 189 MPV 9.9 Immature Gran % (Auto) 0.3 Neut % (Auto) 57.4 Lymph % (Auto) 27.3 [place] % (Auto) 11.2 H Eos % (Auto) 3.5 Baso % (Auto) 0.3 Lymph # (Auto) 1.7 [place] # (Auto) 0.7 Eos # (Auto) 0.2 Baso # (Auto) 0.0 Abs Immat Gran (auto) 0.02 Absolute Neuts (auto) 3.5 Absolute Nucleated RBC 0.000 Nucleated RBC % (auto) 0.0 VBG pH 7.50 H VBG pCO2 33 VBG pO2 57 VBG HCO3 26 VBG O2 Saturation 89.0 VBG Base Excess 3.3 Sodium 141 Potassium 3.6 Chloride 109 H Carbon Dioxide 26 Anion Gap 10 L BUN 10 Creatinine 0.62 Estim Creat Clear Calc 95.7 Estimated GFR > 60 Random Glucose 88 Calcium 8.6 D Total Bilirubin 0.5 AST 14 ALT 6 Alkaline Phosphatase 56 Total Protein 5.1 L Albumin 3.2 L Progress Note: A&P Assessment and plan (1) Hyperlipidemia, unspecified: Status: Acute (2) CAD (coronary artery disease): Status: Acute (3) CVA (cerebral vascular accident): Status: Acute (4) Carpal tunnel syndrome on both sides: Status: Acute (5) Bilateral carotid artery stenosis: Status: Acute Plan disease GERD hypertension, carpal tunnel syndrome was found to have 90% stenosis of the right carotid as patient had some questionable seizures and questionable new stroke. Patient is electively admitted for a right carotid endarterectomy on 04/02/2024 admitted to ICU for postop monitoring. Right carotid artery stenosis: History of cerebrovascular accident: Status post endarterectomy, pod 4 surgical site looks okay, dry, swelling stable Continue to monitor signs of difficulty in breathing or difficulty in swallowing. continue holding asprin and plavix. On statins Monitor DEE drain output, swelling stable. Has history of swelling that lasted for about 2 months post left carotid endarterectomy We will be transferred to floor today Hypertension: On a on amlodipine and metoprolol Seizures: On Keppra, switch to oral today Prophylaxis: Lovenox Will be transferred to floor today Quality Stroke Does the patient have a stroke diagnosis?: No VTE Prior VTE?: No VTE Risk Level:: Surgical - low VTE Device Contraindication: N/A - Device Ordered VTE Drug Contraindication: Treatment Not Tolerated
[2024-04-05] MEDS: levETIRAcetam 250 MG in 0.9 % Sodium Chloride 100 ML 410 MG IV (10:27)
[2024-04-05] MEDS: Enoxaparin Sodium 40 MG/0.4 ML SYRINGE SUBCUT (10:27)
--- NOTE | 2024-04-05 13:19 | MHC.SL.SWA ---
Speech Pathologist Impression: Oropharyngeal dysphagia Risk of Aspiration Due to: Lethargy Weak Voice Dysphasia Diet Status: No changes made to diet order at this time. Patient would benefit from repeat-MBSS (inpatient vs. outpatient) Liquid Consistency and Strategies for Safe Swallow: Liquid Intake Recommendation: [place] Thick Liquid Intake Strategies: Small Sips No Straws Double Swallow Solid Food Consistency: Dietary Recommendations: Pureed (NDD1) -Liquids by teaspoon only -One sip at a time -Clear throat after taking sip and follow with dry swallow -Take small bites of food -Avoid mixed consistencies (i.e. thin broth with solid ingredients, purees with separation of liquid) -Clear throat between bites and follow with dry swallow(s) -Upright 90 degree position during PO intake and for at least 30 minutes afterwards -Daily oral care Oral Medication Intake: Crushed with Puree Please contact the pharmacy regarding appropriate crushable or liquid drug formulations that are available whenever modified delivery is recommended. Compensatory Strategies and Precautions to be Taken for Safe Swallow: Sitting Upright (90 deg) Double Swallow No Straw Small Bites and Sips Rate of Ingestion Change Avoid Specific Foods Supervision While Eating and Drinking for Safe Swallow: Total Supervision (1:1) Foods to Avoid: Mixed textures Swallowing Recommended Treatments: Compens. Strategy Educat. Recommendation for Speech: Inpatient Speech Therapy Comment: Intake Recommendations: Route: PO Diet Grade: Puree Liquid Consistencies: [place] Post-Study Functional Oral Intake Scale (FOIS): 5- Total oral intake of multiple consistencies requiring special preparation Penetration noted with all consistencies. Question probable aspiration with thin liquid. Patient demonstrated consistent throat clear when contrast had entered the airway. There was mild to moderate pharyngeal retention, cleared with multiple dry swallows. Recommend START on PUREED (NDD1) diet and NECTAR THICK liquids with the following strategies to maximize safety: -Liquids by teaspoon only -One sip at a time -Clear throat after taking sip and follow with dry swallow -Take small bites of food -Avoid mixed consistencies (i.e. thin broth with solid ingredients, purees with separation of liquid) -Clear throat between bites and follow with dry swallow(s) -Upright 90 degree position during PO intake and for at least 30 minutes afterwards -Daily oral care Patient is at risk of aspiration. He will require direct supervision and close monitoring with PO intake. Suggested Referrals: The patient might benefit from a referral to: Neurology Indication for Referral: Acute changes to voice and swallow Therapy Recommendations: Therapy will be continued- Speech Pathology will continue to follow patient during inpatient stay to provide patient with education in regards to MBSS results, recommended diet and strategies; conduct PO trials to train strategies and monitor patient?s tolerance of PO; and re-assess for potential upgrade when appropriate. Patient would benefit from repeat-MBSS. Short Term Goals: ? Diet - The patient will tolerate a pureed diet with nectar thick liquids without signs or symptoms of penetration/aspiration 100% of the time. - The patient will participate in therapeutic PO trials with the NEWS CAMERA OPERATOR. ? Guidelines - The patient will comply with/recall the following guidelines/strategies 100% of the time with minimal cuing: [place]-thick Liquid, Bolus Volume Change, Rate of Ingestion Change, Liquid Wash, Additional Swallow(s) per Bolus, Throat Clear. ? Education - The patient, family, caregiver, nurse will verbalize/demonstrate understanding of the results of this evaluation, the above recommendations, and the swallowing guidelines. Frequency/Duration: M-F PRN Date Range for Service Req: Timeline to reassess: PRN Rn Paralegal Clinican/Clinical Fellow: No Supervisory Statement: I have reviewed and agree with the student/clinical fellow's documentation: N/A Speech Language Pathologist: Mai Gonzalez M.A., [facility]-NEWS CAMERA OPERATOR
--- NOTE | 2024-04-05 14:45 | PC.NURSE ---
bright red bloody spotting in the toilet at the end of the urination also some bloody spotting on the floor when pt walked back from the bathroom to the bed , pt reported some burning sensation at the end of the urination . Made DR Shen aware , will sent a tiger texT to Hospitalist too
[2024-04-05] MEDS: oxyCODONE HCl Immed Release 5 MG TABLET PO (17:44)
--- NOTE | 2024-04-05 18:24 | PM.EVENT ---
Event Note Date of Service: 04/05/24 Event Note: pt seen and examined, transferd out of icu post CEA surgery, doing. reported little blood earlier at the end of voiding, no active hematuria, vitals stable. H/H low but stable. Exam: unremarkable. Will closely monitor Time Spent With Patient Time: Total time managing care of this patient today ____ minutes.
[2024-04-05] MEDS: amLODIPine Besylate 2.5 MG TABLET 7.5 MG PO (20:16)
[2024-04-05] MEDS: levETIRAcetam 250 MG TABLET PO (20:16)
[2024-04-06] VITALS (8 sets, daily range): BP systolic 120–160; BP diastolic 58–71; PULSE 65–76; RESP 16–20; TEMP 36–36.8; O2SAT 92–98; BMI 24.5
[2024-04-06 06:34] LABS: Hemoglobin 8.6 g/dl (14.0-18.0); Mean Corpuscular HGB Conc 34.4 g/dl (31.0-36.0); Mean Corpuscular Hemoglobin 29.4 pg (27.0-33.0); Mean Corpuscular Volume 85.3 fL (80.0-98.0); Mean Platelet Volume 9.3 fL (9.4-12.4); Platelet Count 209 X10*3/uL (160-400); Red Blood Count 2.93 X10*6/uL (4.60-5.80); Red Cell Distribution Width 13.2 % (11.0-16.0); White Blood Count 6.4 X10*3/uL (4.8-10.8)
[2024-04-06] MEDS: Atorvastatin Calcium 40 MG TABLET PO (07:41)
[2024-04-06] MEDS: levETIRAcetam 250 MG TABLET PO ×2 (07:41→20:35)
[2024-04-06] MEDS: Cyanocobalamin (Vitamin B-12) 1,000 MCG TABLET 1000 MCG PO (07:42)
[2024-04-06] MEDS: Metoprolol Tartrate 12.5 MG HALFTAB PO ×2 (07:42→20:35)
[2024-04-06] MEDS: 0.9 % Sodium Chloride Flush 3 ML SYRINGE IVFLUSH (07:49)
[2024-04-06] MEDS: Docusate Sodium 100 MG CAPSULE PO (08:22)
--- NOTE | 2024-04-06 09:51 | HO.PM.IMPN ---
Subjective Subjective Date of Service: 04/07/24 Interval History: f/u med management s/p r CEA and doing fine post anemia, but h/H stable. yesterday had a episoe of tiny blood at the end of voiding but has not any further episode Physical Exam Vital Signs: Vital Signs: Last Vital Signs Temp 97.7 F 04/06/24 07:26 Pulse 70 04/06/24 07:26 Resp 16 04/06/24 07:26 BP 135/62 04/06/24 07:26 Pulse Ox 96 04/06/24 07:26 O2 Del Method Nasal Cannula 04/06/24 07:26 O2 Flow Rate 2 04/06/24 07:26 Oxygen Flow Rate 2 04/04/24 07:51 BMI result Body Mass Index 24.5 General: AO X 3, no acute distress Resp: CTA bilateral CVS: S1,S2,RRR GI: +BS, NT, no distention Skin: No rash, right neck wound looks d/c/i Neuro: motor grossly intact Psych: appropriate affect Objective Data Active Medications Acetaminophen (Acetaminophen 325 Mg Tablet) 650 mg PO Q6H PRN PRN Reason: Pain, Mild (Pain Scale 1-3) Amlodipine Besylate (Amlodipine Besylate 2.5 Mg Tablet) 7.5 mg PO BEDTIME [facility]; Protocol Last Admin: 04/05/24 20:16 Dose: 7.5 mg Documented By: DERICK Atorvastatin Calcium (Atorvastatin Calcium 40 Mg Tablet) 40 mg PO DAILY [facility] Last Admin: 04/06/24 07:41 Dose: 40 mg Documented By: DERICK Cyanocobalamin (Cyanocobalamin (Vitamin B-12) 1,000 Mcg Tablet) 1,000 mcg PO DAILY [facility] Last Admin: 04/06/24 07:42 Dose: 1,000 mcg Documented By: DERICK Docusate Sodium (Docusate Sodium 100 Mg Capsule) 100 mg PO DAILY PRN PRN Reason: Constipation Last Admin: 04/06/24 08:22 Dose: 100 mg Documented By: DERICK Enoxaparin Sodium (Enoxaparin Sodium 40 Mg/0.4 Ml Syringe) 40 mg SUBCUT Q24H [facility] Last Admin: 04/05/24 10:27 Dose: 40 mg Documented By: JUANCARLOS Hydromorphone HCl (Hydromorphone Hcl 0.5 Mg/0.5 Ml Syringe) 0.5 mg IVPUSH Q4H PRN; Protocol PRN Reason: Pain, Moderate(Pain Scale 4-6) Last Admin: 04/03/24 17:39 Dose: 0.5 mg Documented By: THANH Dextrose (D10) 250 mls @ 750 mls/hr IV Q15M PRN PRN Reason: per Hypoglycemia Standing Ord. Last Infusion: 04/04/24 06:39 Dose: Infused Documented By: SOFIA Lactulose (Lactulose 20 Gm/30 Ml Solution) 20 gm PO DAILY PRN PRN Reason: for constipation Levetiracetam (Levetiracetam 250 Mg Tablet) 250 mg PO BID [facility] Last Admin: 04/06/24 07:41 Dose: 250 mg Documented By: DERICK Metoprolol Tartrate (Metoprolol Tartrate 12.5 Mg Halftab) 12.5 mg PO BID [facility]; Protocol Last Admin: 04/06/24 07:42 Dose: 12.5 mg Documented By: DERICK Oxycodone HCl (Oxycodone Hcl Immed Release 5 Mg Tablet) 5 mg PO Q4H PRN PRN Reason: Pain, Moderate(Pain Scale 4-6) Last Admin: 04/05/24 17:44 Dose: 5 mg Documented By: TATO Sodium Chloride (0.9 % Sodium Chloride Flush 3 Ml Syringe) 3 ml IVFLUSH [facility] Last Admin: 04/06/24 07:49 Dose: 3 ml Documented By: DERICK Labs 04/06/24 06:26 04/05/24 05:05 Labs: Laboratory Results - last 24 hr 04/06/24 06:26 MCV 85.3 MCH 29.4 MCHC 34.4 RDW 13.2 Plt Count 209 MPV 9.3 L Absolute Nucleated RBC 0.000 Nucleated RBC % (auto) 0.0 Assessment and Plan (1) Bilateral carotid artery stenosis: Status: Acute Plan 89 y/o male s/p elective right CEA s/p R CEA, doing good -management per surgery CAD. s/p NICOLE RCA Oct 2023, ASA, Plavix on hold post surgery, will with vascular when to restart Essential hypertension. Continue metoprolol, norvasc Anemia post op, H/H has been stable Type 2 diabetes mellitus. diet control, check POCs Hyperlipidemia. Continue statin. Obstructive sleep apnea. doesn't use CPAP DVT prophylaxis: Lovneox Quality Stroke Does the patient have a stroke diagnosis?: No VTE Prior VTE?: No VTE Risk Level:: Surgical - low VTE Device Contraindication: N/A - Device Ordered VTE Drug Contraindication: Treatment Not Tolerated
[2024-04-06] MEDS: Enoxaparin Sodium 40 MG/0.4 ML SYRINGE SUBCUT (12:00)
[2024-04-06 12:09] LABS: Glucose, Whole Blood 120 mg/dL (60-115)
[2024-04-06 16:35] LABS: Glucose, Whole Blood 121 mg/dL (60-115)
[2024-04-06 20:21] LABS: Glucose, Whole Blood 162 mg/dL (60-115)
[2024-04-06] MEDS: amLODIPine Besylate 2.5 MG TABLET 7.5 MG PO (20:35)
[2024-04-06] MEDS: Insulin Lispro 100 UNIT/ML 3 ML VIAL SUBCUT (20:35)
[2024-04-07] MEDS: 0.9 % Sodium Chloride Flush 3 ML SYRINGE IVFLUSH ×3 (00:23→20:49)
[2024-04-07 03:35] VITALS: BP 157/67; PULSE 72; RESP 18; TEMP 36; O2SAT 95
[2024-04-07 05:55] VITALS: BMI 23.7
[2024-04-07 07:13] VITALS: BP 140/63; PULSE 67; RESP 20; TEMP 36.2; O2SAT 98
[2024-04-07 08:22] LABS: Glucose, Whole Blood 95 mg/dL (60-115)
[2024-04-07] MEDS: Cyanocobalamin (Vitamin B-12) 1,000 MCG TABLET 1000 MCG PO (08:58)
[2024-04-07] MEDS: levETIRAcetam 250 MG TABLET PO ×2 (08:58→20:48)
[2024-04-07] MEDS: Metoprolol Tartrate 12.5 MG HALFTAB PO ×2 (08:58→20:48)
[2024-04-07] MEDS: Atorvastatin Calcium 40 MG TABLET PO (08:58)
[2024-04-07 09:00] VITALS: O2SAT 98
[2024-04-07] MEDS: Enoxaparin Sodium 40 MG/0.4 ML SYRINGE SUBCUT (10:29)
--- NOTE | 2024-04-07 10:48 | HO.PM.IMPN ---
Subjective Subjective Date of Service: 04/07/24 Interval History: f/u med management s/p r CEA and doing fine post anemia, but h/H stable. no new issues today Physical Exam Vital Signs: Vital Signs: Last Vital Signs Temp 97.1 F 04/07/24 07:13 Pulse 67 04/07/24 07:13 Resp 20 04/07/24 07:13 BP 140/63 H 04/07/24 07:13 Pulse Ox 98 04/07/24 07:13 O2 Del Method Nasal Cannula 04/07/24 07:13 O2 Flow Rate 2 04/07/24 07:13 Oxygen Flow Rate 2 04/06/24 09:00 BMI result Body Mass Index 23.7 General: AO X 3, no acute distress Resp: CTA bilateral CVS: S1,S2,RRR GI: +BS, NT, no distention Skin: No rash, right neck wound looks d/c/i Neuro: motor grossly intact Psych: appropriate affect Objective Data Active Medications Acetaminophen (Acetaminophen 325 Mg Tablet) 650 mg PO Q6H PRN PRN Reason: Pain, Mild (Pain Scale 1-3) Amlodipine Besylate (Amlodipine Besylate 2.5 Mg Tablet) 7.5 mg PO BEDTIME [facility]; Protocol Last Admin: 04/06/24 20:35 Dose: 7.5 mg Documented By: USAMA Atorvastatin Calcium (Atorvastatin Calcium 40 Mg Tablet) 40 mg PO DAILY [facility] Last Admin: 04/07/24 08:58 Dose: 40 mg Documented By: MARLENE Cyanocobalamin (Cyanocobalamin (Vitamin B-12) 1,000 Mcg Tablet) 1,000 mcg PO DAILY [facility] Last Admin: 04/07/24 08:58 Dose: 1,000 mcg Documented By: MARLENE Docusate Sodium (Docusate Sodium 100 Mg Capsule) 100 mg PO DAILY PRN PRN Reason: Constipation Last Admin: 04/06/24 08:22 Dose: 100 mg Documented By: DERICK Enoxaparin Sodium (Enoxaparin Sodium 40 Mg/0.4 Ml Syringe) 40 mg SUBCUT Q24H [facility] Last Admin: 04/07/24 10:29 Dose: 40 mg Documented By: CURTFEJENI Glucose (Glucose Gel 15 Gm Gel..Gram.) 15 gm PO Q15M PRN; Protocol PRN Reason: per Hypoglycemia Standing Ord. Hydromorphone HCl (Hydromorphone Hcl 0.5 Mg/0.5 Ml Syringe) 0.5 mg IVPUSH Q4H PRN; Protocol PRN Reason: Pain, Moderate(Pain Scale 4-6) Last Admin: 04/03/24 17:39 Dose: 0.5 mg Documented By: THANH Dextrose (D10) 250 mls @ 750 mls/hr IV Q15M PRN PRN Reason: per Hypoglycemia Standing Ord. Last Infusion: 04/04/24 06:39 Dose: Infused Documented By: SOFIA Dextrose (D10) 250 mls @ 750 mls/hr IV Q15M PRN; Protocol PRN Reason: per Hypoglycemia Standing Ord. Insulin Human Lispro (Insulin Lispro 100 Unit/Ml 3 Ml Vial) 0 unit SUBCUT QIDACHS [facility]; Protocol Last Admin: 04/07/24 08:50 Dose: Not Given Documented By: MARLENE Non-Admin Reason: No Insulin Coverage Lactulose (Lactulose 20 Gm/30 Ml Solution) 20 gm PO DAILY PRN PRN Reason: for constipation Levetiracetam (Levetiracetam 250 Mg Tablet) 250 mg PO BID [facility] Last Admin: 04/07/24 08:58 Dose: 250 mg Documented By: MARLENE Metoprolol Tartrate (Metoprolol Tartrate 12.5 Mg Halftab) 12.5 mg PO BID [facility]; Protocol Last Admin: 04/07/24 08:58 Dose: 12.5 mg Documented By: MARLENE Sodium Chloride (0.9 % Sodium Chloride Flush 3 Ml Syringe) [facility] Last Admin: 04/07/24 08:58 Dose: 3 ml Documented By: MARLENE Labs 04/06/24 06:26 04/05/24 05:05 Labs: Laboratory Results - last 24 hr 04/06/24 04/06/24 04/06/24 12:06 16:23 20:16 POC Glucose 120 H 121 H 162 H 04/07/24 07:16 POC Glucose 95 Assessment and Plan (1) Bilateral carotid artery stenosis: Status: Acute Plan 89 y/o male s/p elective right CEA s/p R CEA, doing good -management per surgery CAD. s/p NICOLE RCA Oct 2023, ASA, Plavix on hold post surgery, will with vascular when to restart Essential hypertension. Continue metoprolol, norvasc Anemia post op, H/H has been stable, check in am Type 2 diabetes mellitus. diet control, check POCs Hyperlipidemia. Continue statin. Obstructive sleep apnea. doesn't use CPAP to have modified barium swallow test tomorrow DVT prophylaxis: Lovneox Quality Stroke Does the patient have a stroke diagnosis?: No VTE Prior VTE?: No VTE Risk Level:: Surgical - low VTE Device Contraindication: N/A - Device Ordered VTE Drug Contraindication: Treatment Not Tolerated
[2024-04-07 10:51] VITALS: BP 122/59; PULSE 70; RESP 20; TEMP 36.2; O2SAT 98
[2024-04-07 12:09] LABS: Glucose, Whole Blood 123 mg/dL (60-115)
[2024-04-07 14:56] VITALS: BP 135/63; PULSE 65; RESP 20; TEMP 36.3; O2SAT 93
[2024-04-07 16:19] LABS: Glucose, Whole Blood 119 mg/dL (60-115)
[2024-04-07 20:00] VITALS: BP 144/80; PULSE 73; RESP 18; TEMP 36.2; O2SAT 90
[2024-04-07] MEDS: amLODIPine Besylate 2.5 MG TABLET 7.5 MG PO (20:48)
[2024-04-07 21:20] LABS: Glucose, Whole Blood 115 mg/dL (60-115)
[2024-04-08] VITALS (8 sets, daily range): BP systolic 119–145; BP diastolic 56–66; PULSE 59–71; RESP 16–20; TEMP 36.1–37; O2SAT 92–96; BMI 23.7
[2024-04-08 07:07] LABS: Hematocrit 27.3 % (42.0-52.0); Mean Corpuscular Hemoglobin 28.6 pg (27.0-33.0); Mean Corpuscular Volume 86.7 fL (80.0-98.0); Mean Platelet Volume 9.8 fL (9.4-12.4); Platelet Count 267 X10*3/uL (160-400); Red Blood Count 3.15 X10*6/uL (4.60-5.80); Red Cell Distribution Width 13.5 % (11.0-16.0); White Blood Count 6.6 X10*3/uL (4.8-10.8)
[2024-04-08 07:29] LABS: Anion Gap 12 (12-20); Blood Urea Nitrogen 14 mg/dL (9-16); Carbon Dioxide 25 mmol/L (22-29); Chloride 109 mmol/L (96-108); Creatinine Clr Calc Pharmacy 88.6; Estimated Glomerular Filt Rate > 60; Glucose Random 97 mg/dL (60-115); Potassium 3.9 mmol/L (3.3-5.1); Sodium 142 mmol/L (135-145)
[2024-04-08 07:54] LABS: Glucose, Whole Blood 80 mg/dL (60-115)
[2024-04-08] MEDS: Metoprolol Tartrate 12.5 MG HALFTAB PO ×2 (09:07→20:44)
[2024-04-08] MEDS: levETIRAcetam 250 MG TABLET PO ×2 (09:07→20:44)
[2024-04-08] MEDS: Atorvastatin Calcium 40 MG TABLET PO (09:07)
[2024-04-08] MEDS: Cyanocobalamin (Vitamin B-12) 1,000 MCG TABLET 1000 MCG PO (09:07)
[2024-04-08] MEDS: 0.9 % Sodium Chloride Flush 3 ML SYRINGE IVFLUSH ×3 (09:08→20:44)
--- NOTE | 2024-04-08 10:00 | MHC.SLORD ---
Addendum entered and electronically signed by Mai Gonzalez MA, CCC-AGENCY SALES MANAGEMENT ASSISTANT 04/09/24 13:00: MBSS cancelled per MD as patient is being discharged. AGENCY SALES MANAGEMENT ASSISTANT continues to recommend exam be repeated outpatient. Original Note: Speech Language Pathology Order Status: Order for MBSS received. Repeat-MBSS scheduled for 1pm tomorrow, as Radiology does not have the availability today. Radiology to arrange for transport. MD notified via [place] Message.
[2024-04-08 11:48] LABS: Glucose, Whole Blood 118 mg/dL (60-115)
[2024-04-08] MEDS: Enoxaparin Sodium 40 MG/0.4 ML SYRINGE SUBCUT (11:50)
--- NOTE | 2024-04-08 12:49 | P.DS_ITS ---
DS: Providers Provider Date of Service: 04/09/24 Date of admission: 04/01/24 07:36 Primary care physician: Pro Nunn MD DS: Diagnosis Discharge Diagnosis (1) Bilateral carotid artery stenosis: Status: Acute DS: Summary Hospital Course Hospital Course: Patient underwent elective carotid endarterectomy on 04/01/2024. This was a high- grade right carotid endarterectomy postoperatively did well in recovery but had persistent bleeding. It persisted throughout the night and was saturating through dressings. A decision on the morning of 04/02/2024 was made to take the patient back to the OR for persistent bleeding. No obvious source of bleed was identified. This Tisseel sealant was placed and hemostasis was achieved. Patient continued to improve. There is concern about his overall swallow ability. He had undergone a modified barium swallow later during the week. He has on a. Diet. He is awaiting fluoro swallow study. Should that be appropriate and he is able to tolerate a regular diet will subsequently discharged. Unfortunately radiology was not able to get a fluoro swallow study in a timely basis. Patient was frustrated and was given a regular diet. He was able to tolerate a regular diet. He was subsequently discharged. Discharge instructions were discussed with the patient and the patient's granddaughter who was caring for him. Time Attestation Discharge Coordination Time (in mins): 35 Quality: Safe Use of Opioids Does Pt have an Active Cancer Diagnosis on the Problem List?: No Quality: Stroke Does the patient have a stroke diagnosis?: No Physical Exam Vital Signs: Vital Signs: Last Vital Signs Temp 97.0 F 04/08/24 11:39 Pulse 59 04/08/24 11:39 Resp 17 04/08/24 11:39 BP 126/60 04/08/24 11:39 Pulse Ox 92 04/08/24 11:39 O2 Del Method Room Air 04/08/24 11:39 O2 Flow Rate 1.5 04/08/24 04:00 Oxygen Flow Rate 2 04/07/24 09:00 BMI result Body Mass Index 23.7 Const: General: cooperative, healthy appearing and no acute distress Orientation/consciousness: oriented to person, oriented to place and oriented to time HEENT: Head: Yes normal to inspection Neck: Carotids: no bruits Chest: Chest palpation & inspection: normal inspection of the chest Resp: Effort & Inspection: normal respiratory effort and able to speak in complete sentences Auscultation: clear to auscultation bilaterally Cardio: Rate: regular rate Heart sounds: S1 normal heart sound present and S2 normal heart sound present GI: Inspection: Yes normal to inspection Skin: Other: Right neck hematoma General skin exam: no rashes or lesions noted Wounds: no wounds Neuro: General: oriented to person, oriented to place, oriented to time and CN's II-XI intact bilaterally Extrem: General: Yes normal to inspection, Yes full ROM and Yes no clubbing, cyanosis or edema Psych: Appearance: grossly normal and well kempt Speech and movement: Normal speech and movement present Affect: normal affect DS: Data Data Completed and Pending Completed studies during hospitalization [Text1]: Pending at discharge 04/01/24 09:19 Surgical [PTH] Routine Procedures Dilation of Bladder Neck, Via Natural or Artificial Opening Endoscopic (09/30/20) Drainage of Bladder with Drainage Device, Via Natural or Artificial Opening Endoscopic (09/30/20) Extirpation of Matter from Left External Carotid Artery, Open Approach (12/02/23) Insertion of Infusion Device into Superior Vena Cava, Percutaneous Approach (08/27/20) Supplement Left Internal Carotid Artery with Synthetic Substitute, Open Approach (12/02/23) Ultrasonography of Superior Vena Cava, Guidance (08/27/20) Labs on day of discharge: Laboratory Results - last 24 hr 04/07/24 04/07/24 04/08/24 16:14 21:14 06:26 WBC 6.6 RBC 3.15 L Hgb 9.0 L Hct 27.3 L MCV 86.7 MCH 28.6 MCHC 33.0 RDW 13.5 Plt Count 267 D MPV 9.8 Absolute Nucleated RBC 0.000 Nucleated RBC % (auto) 0.0 Sodium 142 Potassium 3.9 Chloride 109 H Carbon Dioxide 25 Anion Gap 12 BUN 14 Creatinine 0.67 Estim Creat Clear Calc 88.6 Estimated GFR > 60 POC Glucose 119 H 115 Random Glucose 97 Calcium 9.0 04/08/24 04/08/24 07:42 11:20 WBC RBC Hgb Hct MCV MCH MCHC RDW Plt Count MPV Absolute Nucleated RBC Nucleated RBC % (auto) Sodium Potassium Chloride Carbon Dioxide Anion Gap BUN Creatinine Estim Creat Clear Calc Estimated GFR POC Glucose 80 118 H Random Glucose Calcium Discharge Plan Discharge Anticipated Discharge Date/Time: 04/08/24 15:00 Patient Disposition: Home, Self-Care Discharge Diagnosis: Status post right carotid endarterectomy Referrals: Aditya HOPKINS [Outside] - 1 Week Po,Pro Adame MD [Primary Care Provider] - 1 Week Discharge Medications: Continued lactulose 10 gram/15 mL solution 30 ml PO DAILY PRN (Reason: for constipation) Qty: 946 0RF rosuvastatin 10 mg tablet 10 mg PO DAILY Qty: 90 3RF cyanocobalamin (vitamin B-12) 1,000 mcg Tablet 1,000 mcg PO DAILY docusate sodium 100 mg capsule 100 mg PO DAILY PRN (Reason: Constipation) metoprolol tartrate 25 mg tablet 12.5 mg PO BID amlodipine 2.5 mg tablet 7.5 mg PO BEDTIME levetiracetam 250 mg Tablet 250 mg PO BID 90 Days Qty: 180 0RF Held aspirin 81 mg Tablet,Delayed Release (Dr/Ec) 81 mg PO DAILY Hold Instructions: Resume on 04/15/24. Hold for 1 additional clopidogrel 75 mg tablet 75 mg PO DAILY Qty: 90 3RF Hold Instructions: Resume on 04/15/24. Hold for 1 additional week Discharge Orders: Discharge Order (Routine); Ordered 04/09/24 Ordered By: Federico Shen Diet: Advance to usual diet Activity on Discharge: As tolerated Stand Alone Forms: Patient Portal Discharge page Print Language: Upper Sorbian Care Plan Goals: Status post carotid endarterectomy Health Concerns: Carotid stenosis Plan of Treatment: Surveillance follow-up status post bilateral carotid endarterectomy Assessment: Status post right carotid endarterectomy
--- NOTE | 2024-04-08 12:53 | P.PNIM_ITS ---
Subjective Subjective Date of Service: 04/08/24 Interval History: f/u med management s/p r CEA and doing fine post anemia, but h/H stable. no new issues today Physical Exam 2 Vital Signs: Vital Signs: Last Vital Signs Temp 97.0 F 04/08/24 11:39 Pulse 59 04/08/24 11:39 Resp 17 04/08/24 11:39 BP 126/60 04/08/24 11:39 Pulse Ox 92 04/08/24 11:39 O2 Del Method Room Air 04/08/24 11:39 O2 Flow Rate 1.5 04/08/24 04:00 Oxygen Flow Rate 2 04/07/24 09:00 BMI result Body Mass Index 23.7 General: AO X 3, no acute distress Resp: CTA bilateral CVS: S1,S2,RRR GI: +BS, NT, no distention Skin: No rash, right neck wound looks d/c/i Neuro: motor grossly intact Psych: appropriate affect Objective Data Active Medications Acetaminophen (Acetaminophen 325 Mg Tablet) 650 mg PO Q6H PRN PRN Reason: Pain, Mild (Pain Scale 1-3) Amlodipine Besylate (Amlodipine Besylate 2.5 Mg Tablet) 7.5 mg PO BEDTIME [facility]; Protocol Last Admin: 04/07/24 20:48 Dose: 7.5 mg Documented By: DRISS Atorvastatin Calcium (Atorvastatin Calcium 40 Mg Tablet) 40 mg PO DAILY [facility] Last Admin: 04/08/24 09:07 Dose: 40 mg Documented By: LUCINDA Cyanocobalamin (Cyanocobalamin (Vitamin B-12) 1,000 Mcg Tablet) 1,000 mcg PO DAILY [facility] Last Admin: 04/08/24 09:07 Dose: 1,000 mcg Documented By: LUCINDA Docusate Sodium (Docusate Sodium 100 Mg Capsule) 100 mg PO DAILY PRN PRN Reason: Constipation Last Admin: 04/06/24 08:22 Dose: 100 mg Documented By: DERICK Enoxaparin Sodium (Enoxaparin Sodium 40 Mg/0.4 Ml Syringe) 40 mg SUBCUT Q24H [facility] Last Admin: 04/08/24 11:50 Dose: 40 mg Documented By: LUCINDA Glucose (Glucose Gel 15 Gm Gel..Gram.) 15 gm PO Q15M PRN; Protocol PRN Reason: per Hypoglycemia Standing Ord. Hydromorphone HCl (Hydromorphone Hcl 0.5 Mg/0.5 Ml Syringe) 0.5 mg IVPUSH Q4H PRN; Protocol PRN Reason: Pain, Moderate(Pain Scale 4-6) Last Admin: 04/03/24 17:39 Dose: 0.5 mg Documented By: THANH Dextrose (D10) 250 mls @ 750 mls/hr IV Q15M PRN PRN Reason: per Hypoglycemia Standing Ord. Last Infusion: 04/04/24 06:39 Dose: Infused Documented By: SOFIA Dextrose (D10) 250 mls @ 750 mls/hr IV Q15M PRN; Protocol PRN Reason: per Hypoglycemia Standing Ord. Insulin Human Lispro (Insulin Lispro 100 Unit/Ml 3 Ml Vial) 0 unit SUBCUT QIDACHS [facility]; Protocol Last Admin: 04/08/24 12:09 Dose: Not Given Documented By: LUCINDA Non-Admin Reason: No Insulin Coverage Lactulose (Lactulose 20 Gm/30 Ml Solution) 20 gm PO DAILY PRN PRN Reason: for constipation Levetiracetam (Levetiracetam 250 Mg Tablet) 250 mg PO BID [facility] Last Admin: 04/08/24 09:07 Dose: 250 mg Documented By: LUCINDA Metoprolol Tartrate (Metoprolol Tartrate 12.5 Mg Halftab) 12.5 mg PO BID [facility]; Protocol Last Admin: 04/08/24 09:07 Dose: 12.5 mg Documented By: LUCINDA Sodium Chloride (0.9 % Sodium Chloride Flush 3 Ml Syringe) 3 ml IVFLUSH QSHIFT [facility] Last Admin: 04/08/24 09:08 Dose: 3 ml Documented By: LUCINDA Labs 04/08/24 06:26 04/08/24 06:26 Labs: Laboratory Results - last 24 hr 04/07/24 04/07/24 04/08/24 16:14 21:14 06:26 MCV 86.7 MCH 28.6 MCHC 33.0 RDW 13.5 Plt Count 267 D MPV 9.8 Absolute Nucleated RBC 0.000 Nucleated RBC % (auto) 0.0 Anion Gap 12 Estim Creat Clear Calc 88.6 Estimated GFR > 60 POC Glucose 119 H 115 Random Glucose 97 Calcium 9.0 04/08/24 04/08/24 07:42 11:20 MCV MCH MCHC RDW Plt Count MPV Absolute Nucleated RBC Nucleated RBC % (auto) Anion Gap Estim Creat Clear Calc Estimated GFR POC Glucose 80 118 H Random Glucose Calcium Assessment and Plan (1) Bilateral carotid artery stenosis: Status: Acute Plan 89 y/o male s/p elective right CEA s/p R CEA, doing good -management per surgery CAD. s/p NICOLE RCA Oct 2023. Hold ASA, Plavix on hold post surgery, Dr. Shen will restart on outpatient basis Essential hypertension. Continue metoprolol, norvasc Anemia post op, H/H has been stable, avoid frequent check Type 2 diabetes mellitus. diet control, check POCs Hyperlipidemia. Continue statin. Obstructive sleep apnea. doesn't use CPAP dysphagia to have modified barium swallow test tomorrow DVT prophylaxis: Lovneox Quality Stroke Does the patient have a stroke diagnosis?: No VTE Prior VTE?: No VTE Risk Level:: Surgical - low VTE Device Contraindication: N/A - Device Ordered VTE Drug Contraindication: Treatment Not Tolerated
[2024-04-08 16:43] LABS: Glucose, Whole Blood 114 mg/dL (60-115)
[2024-04-08 20:29] LABS: Glucose, Whole Blood 112 mg/dL (60-115)
[2024-04-08] MEDS: amLODIPine Besylate 2.5 MG TABLET 7.5 MG PO (20:43)
[2024-04-09 04:00] VITALS: BP 130/77; PULSE 65; RESP 17; TEMP 36.6; O2SAT 97
[2024-04-09 07:11] LABS: Glucose, Whole Blood 88 mg/dL (60-115)
[2024-04-09 07:59] VITALS: BP 116/59; PULSE 66; RESP 20; TEMP 36.3; O2SAT 97
[2024-04-09] MEDS: levETIRAcetam 250 MG TABLET PO (08:33)
[2024-04-09] MEDS: 0.9 % Sodium Chloride Flush 3 ML SYRINGE IVFLUSH (08:33)
[2024-04-09] MEDS: Cyanocobalamin (Vitamin B-12) 1,000 MCG TABLET 1000 MCG PO (08:33)
[2024-04-09] MEDS: Atorvastatin Calcium 40 MG TABLET PO (08:33)
[2024-04-09] MEDS: Metoprolol Tartrate 12.5 MG HALFTAB PO (08:33)
[2024-04-09 09:00] VITALS: O2SAT 98
[2024-04-09] MEDS: Enoxaparin Sodium 40 MG/0.4 ML SYRINGE SUBCUT (09:25)
--- NOTE | 2024-04-09 10:46 | MHC.SLORD ---
Speech Language Pathology Order Status: Per RN, Pt's diet order was changed to Regular Solids and Thin Liquids this morning and he appeared to tolerate breakfast and pills whole with thin liquids. MBSS pending for 1PM today, radiology will arrange for transport.
--- NOTE | 2024-04-09 11:33 | MHC.CM.PN ---
Second IMM 04/09/24, pt has been medically cleared for DC. He will go home and continue with [facility] services, via family transport.
--- NOTE | 2024-04-09 11:38 | P.F2F_ITS ---
Service Date Service Date: 04/09/24 Encounter Date of encounter: 04/09/24 Reasons for Services Signs and symptoms assessed: Postop care Reason for custodial: postoperative assessment and/or care Homebound: Leaving the home is medically contraindicated at this time without the asist of a device and/or another person due th the listed conditions above and below. Reason homebound: unsteady gait / fall risk Homebound supporting statement: 89-year-old gentleman who is at fall risk. He did have a prolonged hospital course due to bleeding. He will benefit from visiting nurse services to ensure his incision is not bleeding and he is ambulating well. Certification: Based on the above findings, I certify that this patient is confined to the home and needs intermittent custodial care, physical therapy and/or speech therapy, or continues to need occupational therapy. The patient is under my care, and I have initiated the establishment of the plan of care. The patient will be followed by a physician who will periodically review the plan of care. Time Spent With Patient Time: Total time managing care of this patient today ____ minutes.
[2024-04-09 11:49] LABS: Glucose, Whole Blood 85 mg/dL (60-115)
== END 2024-04-09 13:28 | disposition home health service (06) | DRG 38 ==
LOC: HO.SSSA 07:41 → HO.ICU 12:52 → HO.IMC 04-05 10:47
PROVIDERS: Internal Medicine; Internal Medicine Critical Care Medicine; Physician Assistant Medical; Admitting Provider Surgery Vascular Surgery; PCP Internal Medicine; Visit Provider Surgery Vascular Surgery
PROC: 03CK0ZZ Extirpation of Matter from Right Internal Carotid Artery, Open Approach (ICD-10-PCS; CPT 35301; principal; 2024-04-01 07:30)
PROC: 0JC40ZZ Extirpation of Matter from Right Neck Subcutaneous Tissue and Fascia, Open Approach (ICD-10-PCS; principal; 2024-04-02 02:30)
DX: I65.21 Occlusion and stenosis of right carotid artery (principal); D62 Acute posthemorrhagic anemia; G40.209 Localization-related (focal) (partial) symptomatic epilepsy and epileptic syndromes with complex partial seizures, not intractable, without status epilepticus; I97.638 Postprocedural hematoma of a circulatory system organ or structure following other circulatory system procedure; G47.33 Obstructive sleep apnea (adult) (pediatric); I95.9 Hypotension, unspecified; E11.9 Type 2 diabetes mellitus without complications; R13.10 Dysphagia, unspecified; Y83.8 Other surgical procedures as the cause of abnormal reaction of the patient, or of later complication, without mention of misadventure at the time of the procedure; R31.0 Gross hematuria; E78.5 Hyperlipidemia, unspecified; I25.10 Atherosclerotic heart disease of native coronary artery without angina pectoris; K21.9 Gastro-esophageal reflux disease without esophagitis; Z87.891 Personal history of nicotine dependence; Z85.46 Personal history of malignant neoplasm of prostate; Z85.038 Personal history of other malignant neoplasm of large intestine; Z95.5 Presence of coronary angioplasty implant and graft; Z86.73 Personal history of transient ischemic attack (TIA), and cerebral infarction without residual deficits; Z79.02 Long term (current) use of antithrombotics/antiplatelets; Z79.82 Long term (current) use of aspirin; Z79.899 Other long term (current) drug therapy
CPT/HCPCS: 36415; 74230; 80048; 80053; 82803; 82947; 85014; 85018; 85025; 85027; 85610; 86850; 86900; 86901; 88304; 88311; 92526; 92610; 92611; A4649; C1758; C1768; C1769; C9250; J0131; J0330; J0690; J1100; J1170; J1644; J1650; J1953; J2250; J2371; J2405; J2704; J2795; J3010; J7120; P9047

== ENCOUNTER 2024-04-01 07:36 | Outpatient (BNV) | payer MEDICARE, OTHER, SELFPAY | END 2024-04-04 14:50 | PROVIDERS: Admitting Provider Surgery Vascular Surgery; PCP Internal Medicine; Visit Provider Physician Assistant Surgical | DX: R13.10 Dysphagia, unspecified (principal) | CPT/HCPCS: 74230 ==

== ENCOUNTER → 2024-04-01 07:36 | Outpatient (BNV) | payer MEDICARE, OTHER, SELFPAY | PROVIDERS: Admitting Provider Surgery Vascular Surgery; PCP Internal Medicine; Visit Provider Internal Medicine | DX: I65.23 Occlusion and stenosis of bilateral carotid arteries (principal) | CPT/HCPCS: 99232; 99499 ==

== ENCOUNTER → 2024-04-01 07:36 | Outpatient (BNV) | payer MEDICARE, OTHER, SELFPAY | PROVIDERS: Admitting Provider Surgery Vascular Surgery; PCP Internal Medicine; Visit Provider Surgery Vascular Surgery | DX: I65.23 Occlusion and stenosis of bilateral carotid arteries (principal) | CPT/HCPCS: 35301; 35800; 99024; 99499; G0180 ==

== ENCOUNTER → 2024-04-01 07:36 | Outpatient (BNV) | payer MEDICARE, OTHER, SELFPAY | PROVIDERS: Admitting Provider Surgery Vascular Surgery; PCP Internal Medicine; Visit Provider Internal Medicine Critical Care Medicine | DX: T83.9XXA Unspecified complication of genitourinary prosthetic device, implant and graft, initial encounter (principal); I48.91 Unspecified atrial fibrillation; E78.5 Hyperlipidemia, unspecified; I25.10 Atherosclerotic heart disease of native coronary artery without angina pectoris; Z86.73 Personal history of transient ischemic attack (TIA), and cerebral infarction without residual deficits | CPT/HCPCS: 99024; 99223; 99232; 99291 ==

== ENCOUNTER → 2024-04-01 07:36 | Outpatient (BNV) | payer MEDICARE, OTHER, SELFPAY | PROVIDERS: Admitting Provider Surgery Vascular Surgery; PCP Internal Medicine; Visit Provider Urology | DX: N99.89 Other postprocedural complications and disorders of genitourinary system (principal) | CPT/HCPCS: 52000; 99222 ==

== ENCOUNTER 2024-04-19 10:03 | Outpatient (AMB) | payer MEDICARE, OTHER, SELFPAY ==
--- NOTE | 2024-04-19 10:14 | MHC.PC.OV ---
Vital Signs 04/19/24 10:16 Height 6 ft 2 in Weight 177 lb 4 oz BMI 22.8 BP 90/58 L Blood Pressure Location Rt brachial Position Sitting Pulse 62 Pulse Source Pulse Oximeter Pulse Oximetry (%) 98 Oxygen Delivery Method Room Air Intake Visit Reasons: HDF ~ Post hospital discharge FU Intake Note: Patient is here for hospital discharge follow up. Patient was discharged from [facility] on 04/09/24. Roll Sheeting Cutter Required: No Supervisor Packing: Not Required per policy Accompanied by: Self / Same As Patient Allergies diphenhydramine [From Benadryl] Adverse Reaction (Intermediate, Verified 04/19/24 10:16) Hallucinations Tobacco use date assessed: 04/19/24 Fall risk assessment: No Falls in past year Last assessed Fall Risk: 04/19/24 Dental Screening Dental Screen Date: 02/12/24 HPI HPI Comments History of Present Illness Details 89 y/o male patient who presents to the clinic for Hospital discharge follow up. Pt was admitted (on 04/01) in the hospital and underwent Elective right Carotid Endarterectomy on 04/01/24. He was discharged home 04/08/24. He had a Post-Op discharge follow up appointment with Surgeons 04/09/24. Today reports feeling better and has been recovering home well. He did c/o Cerumen impaction today. [facility] Medical History (Updated 04/17/24 @ 00:03 by Amy Aguirre) CAD (coronary artery disease) Afib CVA (cerebral vascular accident) Self-catheterizes urinary bladder History of trigger finger Arthritis Preoperative cardiovascular examination Symptomatic stenosis of left carotid artery Rectal cancer Bladder neck contracture GERD (gastroesophageal reflux disease) Urinary incontinence Obstructive sleep apnea Coronary artery disease Type 2 diabetes mellitus with hyperglycemia Small bowel obstruction Erectile dysfunction Overweight (BMI 25.0-29.9) Peripheral vascular disease Prostate cancer Hematuria Constipation BPH (benign prostatic hyperplasia) Prostate cancer Colon cancer Dysuria Hyperlipidemia, unspecified Essential hypertension Surgical History History of left-sided carotid endarterectomy History of coronary artery stent placement History of exploratory laparotomy History of carpal tunnel release History of prostate surgery (~2016) History of bladder surgery (~01/04/18) History of colectomy History of appendectomy Family History Father Pancreatic cancer Mother No problems noted. Brother Liver cancer Social History Household Members: Family Household Members Other:: Granddaughter Housing: House Are you a primary home care chaplain to a significant other at home: No Do you presently have visiting nurse or other home services: No Alcohol intake: never Patient Tobacco Use Status: Former Tobacco user Tobacco use type: Cigarette e-Cigarette/Vaping Use: Never Used Second Hand Smoke Exposure: No Advance Directives Date on File: 09/29/20 service: No Current occupational status: retired Cognitive needs: Yes (cane) Hearing needs: Yes (hearing aide) Vision needs: Yes (glasses) Questionnaire Thrive Questionnaire Date Thrive assessed: 04/02/24 NALINI-7 AMB Questionnaire NALINI-7 Date NALINI - 7 assessed: 02/12/24 Source: Developed by Drs. Chaim Escalera, Angy Pereira, Heriberto Wick and colleagues, with an educational marycarmen from [employer]. Review of Systems Const All systems reviewed & are unremarkable except as noted in HPI and below Physical exam (Primary Care) Vital Signs: Last Vital Signs Pulse 62 04/19/24 10:16 BP 90/58 L 04/19/24 10:16 Pulse Ox 98 04/19/24 10:16 Oxygen Delivery Method Room Air 04/19/24 10:16 BMI result Body Mass Index 22.8 Tobacco/Smoking Status: Tobacco use Status Tobacco use date assessed 04/19/24 04/19/24 10:21 Patient Tobacco Use Status Former Tobacco user 04/19/24 10:15 Tobacco use type Cigarette 04/19/24 10:15 e-Cigarette/Vaping Use Never Used 04/19/24 10:15 Thrive Assessment: Date of Thrive Assessment Date Thrive assessed 04/02/24 04/19/24 10:15 Const General: cooperative, comfortable and no acute distress HENMT Head: Yes normocephalic Ears: external ears normal and TM abnormal obstructed by cerumen bilateral Neck Neck: Yes full ROM, Yes no lymphadenopathy and Yes no JVD Resp Effort & Inspection: normal respiratory effort and able to speak in complete sentences Auscultation: clear to auscultation bilaterally, no crackles, no rales, no rhonchi and wheezes Cardio Rate: regular rate Rhythm: regular rhythm Vital Signs: Vital Signs - 24 hr 04/19/24 10:16 Pulse Rate 62 Blood Pressure 90/58 L Pulse Oximetry 98 BMI result Body Mass Index 22.8 Const General: cooperative, comfortable and no acute distress HENMT Head: Yes normocephalic Ears: external ears normal and TM abnormal obstructed by cerumen bilateral Neck Other: Well healing scar right neck from the surgery. Neck: Yes full ROM, Yes no lymphadenopathy and Yes no JVD Resp Effort & Inspection: normal respiratory effort and able to speak in complete sentences Auscultation: clear to auscultation bilaterally, no crackles, no rales, no rhonchi and wheezes Cardio Rate: regular rate Rhythm: regular rhythm Assessment and Plan Assessment & Plan (1) Carotid artery stenosis: Code(s): I65.29 - Occlusion and stenosis of unspecified carotid artery Qualifiers: Laterality: right Qualified Code(s): I65.21 - Occlusion and stenosis of right carotid artery Plan: Stable, continue follow up with PCP and Vascular surgery. (2) Status post carotid endarterectomy: Code(s): Z98.890 - Other specified postprocedural states Plan: Stable, continue follow up with PCP and Vascular surgery. (3) Cerumen impaction: Code(s): H61.20 - Impacted cerumen, unspecified ear Qualifiers: Laterality: bilateral Qualified Code(s): H61.23 - Impacted cerumen, bilateral Plan: Ordered Debrox today to be used for 7 days. Coding Level of Care Code Est Pt Level 4 (80691) Diagnoses Stenosis of right carotid artery I65.21 Laterality: right Status post carotid endarterectomy Z98.890 Bilateral impacted cerumen H61.23 Laterality: bilateral Comment Spent 20 minutes reviewing hospital notes
[2024-04-19 10:16] VITALS: BP 90/58; PULSE 62; O2SAT 98; BMI 22.8
== END 2024-04-19 12:17 | disposition home or self-care (01) ==
PROVIDERS: PCP Internal Medicine; Visit Provider Nurse Practitioner Family
DX: I65.21 Occlusion and stenosis of right carotid artery (principal); Z98.890 Other specified postprocedural states; H61.23 Impacted cerumen, bilateral
CPT/HCPCS: 99214

== ENCOUNTER 2024-04-23 15:00 | Outpatient (AMB) | payer MEDICARE, OTHER, SELFPAY ==
--- NOTE | 2024-04-23 15:09 | MHC.OFFVIS ---
Vital Signs 04/23/24 15:10 04/23/24 15:23 Height 6 ft 2 in Weight 177 lb BMI 22.7 BP 102/52 L 100/60 Blood Pressure Location Lt brachial Rt brachial Position Sitting Sitting Intake Visit Reasons: 2 week CEA follow up 04/01/24 Intake Note: 2 week follow up Right CEA 04/01/24, no complaints. Just a bit lethargic s/p surgery. Allergies diphenhydramine [From Benadryl] Adverse Reaction (Intermediate, Verified 04/23/24 15:15) Hallucinations HPI HPI 2 week CEA follow up 04/01/24: Details: Very pleasant 89-year-old gentleman presents for follow-up status post right carotid endarterectomy and re-exploration for neck hematoma. He appeared to do relatively well postop but had bleeding throughout the night and had to return for evacuation of hematoma. Postoperatively he was maintained in the hospital throughout the weekend appeared to be doing relatively well. Now as an outpatient he is doing extremely well tolerating a regular diet normal activity no other interval issues [facility] Medical History CAD (coronary artery disease) Afib CVA (cerebral vascular accident) Self-catheterizes urinary bladder History of trigger finger Arthritis Preoperative cardiovascular examination Symptomatic stenosis of left carotid artery Rectal cancer Bladder neck contracture GERD (gastroesophageal reflux disease) Urinary incontinence Obstructive sleep apnea Coronary artery disease Type 2 diabetes mellitus with hyperglycemia Small bowel obstruction Erectile dysfunction Overweight (BMI 25.0-29.9) Peripheral vascular disease Prostate cancer Hematuria Constipation BPH (benign prostatic hyperplasia) Prostate cancer Colon cancer Dysuria Hyperlipidemia, unspecified Essential hypertension Surgical History History of left-sided carotid endarterectomy History of coronary artery stent placement History of exploratory laparotomy History of carpal tunnel release History of prostate surgery (~2017) History of bladder surgery (~01/04/18) History of colectomy History of appendectomy Family History Father Pancreatic cancer Mother No problems noted. Brother Liver cancer Social History Household Members: Family Household Members Other:: Granddaughter Housing: House Are you a primary healthcare administrative assistant to a significant other at home: No Do you presently have visiting nurse or other home services: No Alcohol intake: never Patient Tobacco Use Status: Former Tobacco user Tobacco use type: Cigarette e-Cigarette/Vaping Use: Never Used Second Hand Smoke Exposure: No Advance Directives Date on File: 09/29/20 service: No Current occupational status: retired Cognitive needs: Yes (cane) Hearing needs: Yes (hearing aide) Vision needs: Yes (glasses) Review of Systems Const All systems reviewed & are unremarkable except as noted in HPI and below Reports no additional complaints ENT Reports Normal hearing present Card Denies chest pain, Denies chest pain at rest, Denies chest pain with activity and Denies pedal edema Resp Denies cough GI Denies abdominal pain Musc Denies abnormal gait, Denies muscle cramps and Denies radiating pain into limb Skin/Breast Denies skin ulcer and Denies wounds Neuro Reports Normal hearing present and Denies abnormal gait Psych Reports no additional complaints Physical Exam Vital Signs: Last Vital Signs BP 100/60 04/23/24 15:23 BMI result Body Mass Index 22.7 Const General: cooperative, healthy appearing and comfortable Orientation/consciousness: oriented to person, oriented to place and oriented to time HEENT Head: Yes normal to inspection Neck Neck: Yes normal visual inspection Carotids: no bruits Chest Chest palpation & inspection: normal inspection of the chest Resp Effort & Inspection: normal respiratory effort and able to speak in complete sentences Auscultation: clear to auscultation bilaterally, no crackles, no rales, no rhonchi and no wheezes Cardio Rate: regular rate Rhythm: regular rhythm Heart sounds: S1 normal heart sound present and S2 normal heart sound present Bruits: no carotid bruits Peripheral pulses: Peripheral pulses 2+ throughout GI Inspection: Yes normal to inspection Skin Other: Right neck incision well healed Wounds: no wounds Hair: normal Neuro General: oriented to person, oriented to place and oriented to time Cranial nerves: Yes CN's II-XII intact bilaterally and Yes Normal hearing present Cognition (Neuro): normal cognition Motor exam (neuro): 5/5 motor strength present throughout Extrem Other: venous exam: No significant superficial varicosities or spider telangiectasias, minimal edema General: No clubbing, No cyanosis and No edema Psych Appearance: grossly normal Mental Status: mental status grossly normal Speech and movement: Normal speech and movement present Assessment & Plan Assessment & Plan (1) Bilateral carotid artery stenosis: Comment: 12/04/2023 left carotid endarterectomy, 03/18/2024 right carotid endarterectomy 03/19/2024 - right carotid re-exploration for hematoma Code(s): I65.23 - Occlusion and stenosis of bilateral carotid arteries Category: Medical Plan: In short patient is doing well status post bilateral carotid endarterectomy. We did discuss routine risk factor modification. He can return back to normal activity. He is scheduled for 3 month carotid surveillance follow-up. Thank you for allowing us to assist in his care. Orders: Orders US carotid duplex BI 3 Months I65.23 - Occlusion and stenosis of bilateral carotid arteries Coding Level of Care Code Est Pt Level 4 (25923) Diagnoses Bilateral carotid artery stenosis I65.23
[2024-04-23 15:10] VITALS: BP 102/52; BMI 22.7
[2024-04-23 15:23] VITALS: BP 100/60
== END 2024-04-23 15:50 | disposition home or self-care (01) ==
PROVIDERS: PCP Internal Medicine; Visit Provider Surgery Vascular Surgery
DX: I65.23 Occlusion and stenosis of bilateral carotid arteries (principal)
CPT/HCPCS: 99024

== ENCOUNTER → 2024-04-23 15:00 | Outpatient (BNVA) | payer MEDICARE, OTHER, SELFPAY | PROVIDERS: PCP Internal Medicine; Visit Provider Surgery Vascular Surgery | DX: I65.23 Occlusion and stenosis of bilateral carotid arteries (principal) | CPT/HCPCS: 99212 ==

== ENCOUNTER 2024-06-19 05:24 | Inpatient (IN) | payer MEDICARE, OTHER, SELFPAY ==
[2024-06-19] VITALS (8 sets, daily range): BP systolic 115–168; BP diastolic 58–81; PULSE 71–91; RESP 16–18; TEMP 36.4–36.9; O2SAT 95–100; BMI 23.1; BMI 23.2
--- NOTE | ~2024-06-19 | CT_ITS ---
EXAMINATION: CT ABDOMEN AND PELVIS WITH IV CONTRAST. CLINICAL INFORMATION: History of small bowel obstruction, now complains of Abdominal pain. COMPARISON: CT scan of abdomen and pelvis on 12/02/2023 TECHNIQUE: A multidetector helical CT acquisition of the abdomen and pelvis was obtained following the administration of 85 mL of Omnipaque 350. Multiplanar reformats were acquired and utilized for image interpretation. Dose reduction technique: One or more of the following individual dose optimization techniques were used including: Automated exposure control, mA and/or kV were adjusted according to patient size or iterative reconstruction. DLP: 568 mGy-cm FINDINGS: LUNG BASES: A 1.1 cm calcified pleural plaque is seen in lateral right diaphragmatic pleura in addition to additional smaller multiple right diaphragmatic and bilateral posterior calcified pleural plaques. A chest subpleural scarlike density is partially visualized at the anterior lateral vertebral border of right lower, series 5 image #1. LIVER: No focal lesion is seen in the liver. GALLBLADDER AND BILIARY TREE: Gallbladder appears unremarkable without calcified stones. Common bile duct is not dilated. SPLEEN: The spleen is normal in size without focal lesion. PANCREAS: The pancreas appears unremarkable. ADRENAL GLANDS: Adrenal glands are normal in size without focal lesion bilaterally. KIDNEYS: Bilateral kidneys are normal in size with a simple cyst in lateral mid right renal cortex measuring 4.3 x 3.6 cm in size and a much more posteriorly in mid right renal cortical cyst measuring 0.8 cm, for which no follow-up imaging is recommended. BOWELS: There is diffuse mild fecal distention of the colon. RETROPERITONEUM: At lower T12 level, there is a left anterolateral periaortic nodule, just lateral to the proximal superior mesenteric artery measuring 1.4 cm in horizontal diameter (previously 1.3 cm), series 3 image #22. Stable small left lateral periaortic lymph nodes are present. BLOOD VESSELS: Abdominal aorta is normal in size with extensive atherosclerotic calcifications and smoothly patent. ABDOMINAL WALL: Abdominal subcutaneous tissue and muscle are intact. No evidence of ventral hernia. A chunky calcification is seen in the right parasagittal suprapubic subcutaneous abdominal wall. PERITONEUM: At T12-L1 junction, and elongated posterior periportal lymph node is seen measuring 0.8 cm in short axis (previously 0.7 cm), series 3 image #24. There was no ascites. There were no abdominal peritoneal inflammatory changes seen. No free peritoneal air was seen. No abnormally enlarged mesenteric lymph nodes are found. BONES: There are moderate L2-L3 levoscoliosis, severe T12-L1 and L3-L4 degenerative disc disease, multilevel sharp anterior syndesmophytes. No fracture or dislocation. No focal bone lesion diagnostic of metastatic disease could be seen in the lumbar region. EXAMINATION: CT pelvis. FINDINGS: URINARY BLADDER: Urinary bladder fills normally with urine. BOWELS: There is a persistent short segment relative narrowing in the proximal pelvic ileum at right iliac fossa, showing enhancing mural thickening, series 3 image #64. There is recurrent abnormal fluid distention of the pelvic ileum measuring up to 4.5 cm in transverse diameter. There is mild fecal distention of the cecum. Appendix cannot be identified. Anastomosis staple line is seen in the rectosigmoid junction. There is marked fecal distention of the rectum. GENITAL ORGANS: Seminal vesicles are unremarkable. Prostate gland is normal. LYMPH NODES: No abnormally enlarged iliac or inguinal lymph nodes are seen. PERITONEUM: No inflammatory changes, ascites or free peritoneal air are found in the pelvis. There is small left inguinal hernia containing mesenteric fat is partially visualized. BONES: No fracture or dislocation. No focal bone lesion diagnostic of metastatic disease could be seen in the pelvis. CT/CT abdomen pelvis w IV con IMPRESSION: 1. Persistent short segment proximal right pelvic ileal narrowing with circumferential mural thickening suggestive of stricture. Focal ileal tumor infiltration cannot be excluded. There is persistent or recurrent partial intestinal mechanical obstruction. 2. Unchanged rectosigmoid anastomosis. 3. Stable periportal lymph nodes and left periaortic lymph nodes. 4. Recurrent Marked fecal distention of the rectum. 5. Unchanged Small left inguinal hernia. 6. Unchanged asbestos related pleural disease. 7. Unchanged right renal cortical simple cysts, for which no follow-up imaging is recommended. Electronically signed by: Kareem Silva MD 06/19/2024 12:05 PM EDT
[2024-06-19 07:04] LABS: MANUAL DIFF FLAG NO
[2024-06-19 07:08] LABS: Basophils Percent Auto 0.3 % (0-2); Eosinophils Absolute Auto 0.2 X10*3/uL (0.0-0.4); Eosinophils Percent Auto 1.6 % (0-4); Hematocrit 35.8 % (42.0-52.0); Hemoglobin 11.5 g/dl (14.0-18.0); Imm Gran Abs Auto 0.08 X10*3/uL (0.00-0.03); Imm Gran Pct Auto 0.6 % (0.0-0.4); Lymphocytes Percent Auto 14.9 % (20-40); Mean Corpuscular HGB Conc 32.1 g/dl (31.0-36.0); Mean Corpuscular Hemoglobin 25.5 pg (27.0-33.0); Mean Corpuscular Volume 79.4 fL (80.0-98.0); Mean Platelet Volume 10.1 fL (9.4-12.4); Monocytes Absolute Auto 0.7 X10*3/uL (0.1-1.2); Monocytes Percent Auto 5.5 % (2-11); Neutrophils Absolute Auto 10.3 x10*3/uL (2.0-8.3); Neutrophils Percent Auto 77.1 % (45-73); Platelet Count 283 X10*3/uL (160-400); Red Blood Count 4.51 X10*6/uL (4.60-5.80); Red Cell Distribution Width 14.8 % (11.0-16.0); White Blood Count 13.4 X10*3/uL (4.8-10.8)
[2024-06-19 07:31] LABS: Alanine Aminotransferase 11 U/L (0-40); Albumin Level 3.6 g/dL (3.5-5.0); Alkaline Phosphatase 81 U/L (39-117); Anion Gap 10 (12-20); Aspartate Amino Transferase 16 U/L (5-37); Bilirubin Direct 0.2 mg/dL (0.0-0.5); Bilirubin Total 0.4 mg/dL (0.0-1.0); Blood Urea Nitrogen 19 mg/dL (9-16); Carbon Dioxide 24 mmol/L (22-29); Chloride 110 mmol/L (96-108); Estimated Glomerular Filt Rate > 60; Glucose Random 126 mg/dL (60-115); Lipase 8 U/L (8-78); Potassium 3.8 mmol/L (3.3-5.1); Sodium 140 mmol/L (135-145)
--- NOTE | 2024-06-19 07:33 | ED_ITS ---
HPI - General Adult General Chief complaint: Abdominal Pain Stated complaint: abd pain Time Seen by Provider: 06/19/24 07:33 History of Present Illness ED Provider: Nilsa HOLMAN narrative: The patient is an 89-year-old male who presents for evaluation of abdominal pain. His symptoms started at around midnight last night. He became quite uncomfortable and ultimately called an ambulance and was brought to the hospital. Patient says he has had similar episodes of pain in the past and he believes he has been told that he has had small bowel obstructions in the past. No fever, sweats, chills. He has had nausea but no vomiting. No diarrhea. Related Data Home Medications ?Medication ?Instructions ?Recorded ?Confirmed aspirin 81 mg tablet,delayed 81 mg PO DAILY 12/01/22 06/19/24 release cyanocobalamin (vitamin B-12) 1,000 mcg PO DAILY 12/01/22 06/19/24 1,000 mcg tablet docusate sodium 100 mg capsule 100 mg PO DAILY PRN Constipation 01/12/24 06/19/24 metoprolol tartrate 25 mg tablet 12.5 mg PO BID 03/14/24 06/19/24 Previous Rx's ?Medication ?Instructions ?Recorded lactulose 10 gram/15 mL oral 30 ml PO DAILY PRN for 10/17/23 solution constipation #946 mL rosuvastatin 10 mg tablet 10 mg PO DAILY #90 tabs 01/08/24 clopidogrel 75 mg tablet 75 mg PO DAILY #90 tabs 03/06/24 levetiracetam 250 mg tablet 250 mg PO BID 90 days #180 tabs 03/15/24 amlodipine 2.5 mg tablet 7.5 mg (3 x 2.5 mg) PO BEDTIME 04/22/24 #270 tabs Allergies Allergy/AdvReac Type Severity Reaction Status Date / Time diphenhydramine AdvReac Intermediate Hallucinati Verified 06/19/24 05:45 [From Benadryl] ons Review of Systems 2 Review of Systems: Yes all other systems are reviewed and are negative [facility] Past Medical History Medical History CAD (coronary artery disease) Afib CVA (cerebral vascular accident) Self-catheterizes urinary bladder History of trigger finger Arthritis Preoperative cardiovascular examination Symptomatic stenosis of left carotid artery Rectal cancer Bladder neck contracture GERD (gastroesophageal reflux disease) Urinary incontinence Obstructive sleep apnea Coronary artery disease Type 2 diabetes mellitus with hyperglycemia Small bowel obstruction Erectile dysfunction Overweight (BMI 25.0-29.9) Peripheral vascular disease Prostate cancer Hematuria Constipation BPH (benign prostatic hyperplasia) Prostate cancer Colon cancer Dysuria Hyperlipidemia, unspecified Essential hypertension Surgical History History of left-sided carotid endarterectomy History of coronary artery stent placement History of exploratory laparotomy History of carpal tunnel release History of prostate surgery (~2017) History of bladder surgery (~01/04/18) History of colectomy History of appendectomy Family History Family History Father Pancreatic cancer Mother No problems noted. Brother Liver cancer Social History Social History Household Members: Family Household Members Other:: Granddaughter Housing: House Are you a primary critical care technician to a significant other at home: No Do you presently have visiting nurse or other home services: No Alcohol intake: never Patient Tobacco Use Status: Former Tobacco user Tobacco use type: Cigarette e-Cigarette/Vaping Use: Never Used Second Hand Smoke Exposure: No Advance Directives Date on File: 09/29/20 service: No Current occupational status: retired Cognitive needs: Yes (cane) Hearing needs: Yes (hearing aide) Vision needs: Yes (glasses) Physical Exam ED Vital Signs: Vital Signs - 24 hr 06/19/24 11:36 Temperature 97.7 F Pulse Rate 71 Respiratory Rate 18 Blood Pressure 115/58 L Pulse Oximetry 99 Oxygen Delivery Method Room Air BMI result Body Mass Index 23.1 Const Other: The patient is an older man who was awake and alert. He was moaning in distress. HENMT Head: Yes normal to inspection Face and sinus: Yes normal facial exam Mouth: Normal oral and palatal mucosa present and moist mucous membranes Throat: Yes posterior oropharynx normal Eyes General: appearance normal, both eyes and all related structures Neck Neck: Yes no JVD Resp Effort & Inspection: normal respiratory effort Auscultation: clear to auscultation bilaterally Cardio Rate: regular rate Rhythm: regular rhythm Heart sounds: S1 normal heart sound present and S2 normal heart sound present GI Other: The patient's abdomen is mildly distended and diffusely tender. Skin General skin exam: no rashes or lesions noted Neuro Other: The patient is awake and alert. He seems quite uncomfortable but has a normal mental status. Cranial nerves are grossly intact. He moves all 4 extremities normally. Extrem Other: No peripheral edema Medications Administered Generic Name Dose Route Start Last Admin Trade Name Freq PRN Reason Stop Dose Admin Dextrose/Lactated Ringer's 1,000 mls @ 125 mls/hr 06/19/24 12:00 06/20/24 05:37 D5lr IVCONT 125 mls/hr .Q8H KRISTINE Administration Sodium Chloride 3 ml 06/19/24 16:00 06/19/24 21:41 0.9 % Sodium Chloride Flush 3 Ml Syringe IVFLUSH Not Given QSHIFT KRISTINE Discontinued Medications Generic Name Dose Route Start Last Admin Trade Name Freq PRN Reason Stop Dose Admin Droperidol 0.625 mg 06/19/24 07:35 06/19/24 08:00 Droperidol 5 Mg/2 Ml Vial IVPUSH 06/19/24 07:36 0.625 mg ONCE ONE Administration Lactated Ringer's 1,000 mls @ 999 mls/hr 06/19/24 07:45 06/19/24 09:40 Lr IV 06/19/24 08:45 Infused .Q1H1M KRISTINE Infusion Lactated Ringer's 1,000 mls @ 999 mls/hr 06/19/24 11:30 06/19/24 13:22 Lr IV 06/19/24 12:30 Infused .Q1H1M KRISTINE Infusion Iohexol 100 ml 06/19/24 08:21 06/19/24 08:22 Iohexol 350 Mg/Ml 100 Ml Infus..Btl IV 06/19/24 08:22 85 ml ONCE ONE Administration Morphine Sulfate 4 mg 06/19/24 07:35 06/19/24 07:59 Morphine Sulfate 4 Mg/Ml Cartridge IVPUSH 06/19/24 07:36 4 mg ONCE ONE Administration Protocol Medical Decision Making Medical Decision Making MDM Narrative: The patient is an 89-year-old man presents with several hours of abdominal pain that started during the night last night. He has a history of small-bowel obstructions. He was given pain medications and antinausea meds. He was given IV fluids. A CT scan was done that shows a recurrent partial small-bowel obstruction. General surgery was consulted and the patient was admitted to the hospital. Lab Data 06/19/24 06:42 06/19/24 06:42 Labs: Lab Results 06/19/24 Range/Units 06:42 WBC 13.4 H (4.8-10.8) X10*3/uL RBC 4.51 L D (4.60-5.80) X10*6/uL Hgb 11.5 L D (14.0-18.0) g/dl Hct 35.8 L D (42.0-52.0) % MCV 79.4 L (80.0-98.0) fL MCH 25.5 L (27.0-33.0) pg MCHC 32.1 (31.0-36.0) g/dl RDW 14.8 (11.0-16.0) % Plt Count 283 (160-400) X10*3/uL MPV 10.1 (9.4-12.4) fL Immature Gran % (Auto) 0.6 H (0.0-0.4) % Neut % (Auto) 77.1 H (45-73) % Lymph % (Auto) 14.9 L (20-40) % Bryan % (Auto) 5.5 (2-11) % Eos % (Auto) 1.6 (0-4) % Baso % (Auto) 0.3 (0-2) % Lymph # (Auto) 2.0 (1.2-4.9) X10*3/uL Bryan # (Auto) 0.7 (0.1-1.2) X10*3/uL Eos # (Auto) 0.2 (0.0-0.4) X10*3/uL Baso # (Auto) 0.0 (0.0-0.2) X10*3/uL Abs Immat Gran (auto) 0.08 H (0.00-0.03) X10*3/uL Absolute Neuts (auto) 10.3 H (2.0-8.3) x10*3/uL Absolute Nucleated RBC 0.000 (0.0-0.012) X10*3/uL Nucleated RBC % (auto) 0.0 (0.0-0.2) /100WBC Sodium 140 (135-145) mmol/L Potassium 3.8 (3.3-5.1) mmol/L Chloride 110 H (96-108) mmol/L Carbon Dioxide 24 (22-29) mmol/L Anion Gap 10 L (12-20) BUN 19 H (9-16) mg/dL Creatinine 0.83 (0.5-1.4) mg/dL Estim Creat Clear Calc 71.0 Estimated GFR > 60 Random Glucose 126 H (60-115) mg/dL Calcium 9.0 (8.4-10.2) mg/dL Total Bilirubin 0.4 (0.0-1.0) mg/dL Direct Bilirubin 0.2 (0.0-0.5) mg/dL AST 16 (5-37) U/L ALT 11 (0-40) U/L Alkaline Phosphatase 81 (39-117) U/L Total Protein 6.0 L (6.5-8.0) g/dL Albumin 3.6 (3.5-5.0) g/dL Lipase 8 (8-78) U/L Discharge Plan Discharge Clinical Impression: Small bowel obstruction Patient Disposition: Admitted As Inpatient Interventions: Admission Worksheet (ED) Last Done: 06/19/24 19:24 Discharge Date/Time: 06/19/24 20:37
[2024-06-19] MEDS: Morphine Sulfate 4 MG/ML CARTRIDGE IVPUSH (07:59)
--- NOTE | 2024-06-19 07:59 | ECG_ITS ---
Test Reason : ABD PAIN Blood Pressure : / mmHG Vent. Rate : 071 BPM Atrial Rate : 071 BPM P-R Int : 218 ms QRS Dur : 082 ms QT Int : 412 ms P-R-T Axes : 035 -01 006 degrees QTc Int : 447 ms Sinus rhythm with 1st degree A-V block Otherwise normal ECG When compared with ECG of 13-MAR-2024 21:31, T wave amplitude has increased in Lateral leads Referred By: Arsen Ash Electronically Signed By:BHARATHI MONTOYA
[2024-06-19] MEDS: Lactated Ringers 1,000 ML 999 ML IV ×2 (08:00→11:38)
[2024-06-19] MEDS: droPERidol 5 MG/2 ML VIAL 0.625 MG IVPUSH (08:00)
[2024-06-19] MEDS: iohexoL 350 MG/ML 100 ML INFUS..BTL IV (08:22)
--- NOTE | 2024-06-19 10:57 | PC.NURSE ---
Pt reports ABD pain, generalized since middle of the night. Has hx of similar episodes and has had blockages in the past. Alert and oriented, breathing even and unlabored, skin WNL. Pt more comfortable and resting after medications. ABD distended.
--- NOTE | 2024-06-19 13:16 | PM.HPGS ---
History of Present Illness History of Present Illness Date of Service: 06/19/24 Chief complaint: Partial SBO Narrative: Geoffrey Bone is a 89 year old male with a past medical history of coronary artery disease, and previous cerebrovascular accident, status post carotid endarterectomy and cardiac stent placement presenting with complaints of sharp abdominal pain which began during the night. The pain was quite severe and necessitated a visit to the emergency department. He has a prior history of small-bowel obstruction due to adhesions most recently in 12/19/2023. Current episode began suddenly without any inciting events. He denied any unusual oral intake. Upon presentation to the emergency department he was in severe pain. A CT abdomen and pelvis revealed dilated loops of small bowel with decompressed distal small bowel. Findings were suggestive of a partial small-bowel obstruction. He is admitted to the surgical service for further management. Currently the patient feels improved with decreased abdominal pain but denies passing flatus or moving his bowels. He denies any current nausea or vomiting. Review of Systems Review of Systems: Yes all other systems are reviewed and are negative Constitutional: Constitutional: Denies chills, Denies fever(s) and Denies malaise ENT: Denies dizziness Gastrointestinal: Gastrointestinal: Reports as per HPI, Reports abdominal pain and Denies vomiting Genitourinary: Genitourinary: Denies hematuria Integumentary/Breasts: Skin/Breast: Denies rash Neurologic: Denies dizziness [facility] Past Medical History Medical History CAD (coronary artery disease) Afib CVA (cerebral vascular accident) Self-catheterizes urinary bladder History of trigger finger Arthritis Preoperative cardiovascular examination Symptomatic stenosis of left carotid artery Rectal cancer Bladder neck contracture GERD (gastroesophageal reflux disease) Urinary incontinence Obstructive sleep apnea Coronary artery disease Type 2 diabetes mellitus with hyperglycemia Small bowel obstruction Erectile dysfunction Overweight (BMI 25.0-29.9) Peripheral vascular disease Prostate cancer Hematuria Constipation BPH (benign prostatic hyperplasia) Prostate cancer Colon cancer Dysuria Hyperlipidemia, unspecified Essential hypertension Family History Family History Father Pancreatic cancer Mother No problems noted. Brother Liver cancer Surgical History Surgical History History of left-sided carotid endarterectomy History of coronary artery stent placement History of exploratory laparotomy History of carpal tunnel release History of prostate surgery (~2017) History of bladder surgery (~01/04/18) History of colectomy History of appendectomy Social History Social History Household Members: Family Household Members Other:: Granddaughter Housing: House Are you a primary home care and home health aides teacher to a significant other at home: No Do you presently have visiting nurse or other home services: No Alcohol intake: never Patient Tobacco Use Status: Former Tobacco user Tobacco use type: Cigarette Smoked in Last 30 Days: No e-Cigarette/Vaping Use: Never Used Second Hand Smoke Exposure: No Use of substances other than those prescribed or required for medical reasons: No Advance Directives: Yes Advance Directives on File: Yes Advance Directives Date on File: 09/29/20 Do you have a plan to hurt others: No Plan service: No Current occupational status: retired Cognitive needs: Yes (cane) Hearing needs: Yes (hearing aide) Vision needs: Yes (glasses) Meds Allergies Allergy/AdvReac Type Severity Reaction Status Date / Time diphenhydramine AdvReac Intermediate Hallucinati Verified 06/19/24 05:45 [From [place]] ons Active Medications: Current Medications Acetaminophen (Acetaminophen 325 Mg Tablet) 650 mg PO Q6H PRN PRN Reason: Pain, Mild (Pain Scale 1-3), fever or headache Calcium Carbonate (Calcium Carbonate 750 Mg Tab.Chew) 750 mg PO Q4H PRN PRN Reason: Heartburn Enoxaparin Sodium (Enoxaparin Sodium 40 Mg/0.4 Ml Syringe) 40 mg SUBCUT Q24H [facility] Hydromorphone HCl (Hydromorphone Hcl 0.5 Mg/0.5 Ml Syringe) 0.5 mg IVPUSH Q3H PRN; Protocol PRN Reason: Pain, Severe (Pain Scale 7-10) Dextrose/Lactated Ringer's (D5lr) 1,000 mls @ 125 mls/hr IVCONT .Q8H [facility] Magnesium Hydroxide (Milk Of Magnesia 30 Ml Oral.Susp) 30 ml PO DAILY PRN PRN Reason: Constipation Melatonin (Melatonin 3 Mg Tablet) 6 mg PO BEDTIME PRN PRN Reason: Insomnia Ondansetron HCl (Ondansetron Hcl 4 Mg/2 Ml Vial) 4 mg IVPUSH QID PRN PRN Reason: Nausea Sodium Chloride (0.9 % Sodium Chloride Flush 3 Ml Syringe) [facility] Medications ?Medication ?Instructions ?Recorded ?Confirmed ?Last Taken ?Type aspirin 81 mg tablet,delayed 81 mg PO DAILY 12/01/22 04/01/24 03/31/24 History release cyanocobalamin (vitamin B-12) 1,000 mcg PO DAILY 12/01/22 04/01/24 03/31/24 History 1,000 mcg tablet docusate sodium 100 mg capsule 100 mg PO DAILY PRN Constipation 01/12/24 04/01/24 Unknown History metoprolol tartrate 25 mg tablet 12.5 mg PO BID 03/14/24 04/01/24 04/01/24 History Physical Exam Vital Signs: Vital Signs: Last Vital Signs Temp 97.7 F 06/19/24 11:36 Pulse 71 06/19/24 11:36 Resp 18 06/19/24 11:36 BP 115/58 L 06/19/24 11:36 Pulse Ox 99 06/19/24 11:36 O2 Del Method Room Air 06/19/24 11:36 BMI result Body Mass Index 23.1 Const: General: cooperative and no acute distress Nutritional Appearance: well nourished Orientation/consciousness: patient oriented x3 Limitations: no limitations HEENT: Head: Yes normocephalic and Yes atraumatic Ears: hearing grossly normal bilaterally Resp: Effort & Inspection: normal respiratory effort, no audible wheezes, no cough and no respiratory distress Cardio: Jugular venous distension: no JVD GI: Inspection: Yes normal to inspection Palpation (GI): Soft to palpation, Tenderness to palpation present (GI) periumbilically, no guarding, not rigid and No hepatosplenomegaly present Percussion: Yes normal to percussion Auscultation: normal bowel sounds Skin: Other: Warm, dry, no rash Neuro: General: patient oriented x3 Extrem: General: Yes no clubbing, cyanosis or edema Results Results Labs: Short CBC 06/19/24 Range/Units 06:42 WBC 13.4 H (4.8-10.8) X10*3/uL Hgb 11.5 L D (14.0-18.0) g/dl Hct 35.8 L D (42.0-52.0) % Plt Count 283 (160-400) X10*3/uL BMP 06/19/24 06:42 Sodium 140 Potassium 3.8 Chloride 110 H Carbon Dioxide 24 BUN 19 H Creatinine 0.83 Calcium 9.0 Liver Function 06/19/24 Range/Units 06:42 Total Bilirubin 0.4 (0.0-1.0) mg/dL Direct Bilirubin 0.2 (0.0-0.5) mg/dL AST 16 (5-37) U/L ALT 11 (0-40) U/L Alkaline Phosphatase 81 (39-117) U/L Albumin 3.6 (3.5-5.0) g/dL Assessment and Plan (1) Small bowel obstruction: Status: Acute Plan 89-year-old male patient with a prior history of small-bowel obstructions due to adhesion returning with similar symptoms including abdominal pain in the mid abdomen. Workup does reveal dilated loops of small bowel with decompressed distal small bowel suggestive of a partial small-bowel obstruction. His stomach is not particularly dilated therefore we will hold off on nasogastric tube. Patient will be made NPO and started on IV fluids. We will await a return to bowel function. Patient expressed understanding and agrees with the plan. Quality Stroke Does the patient have a stroke diagnosis?: Yes Reason for No Anti-thrombotic by Day Two: N/A - Med Ordered VTE Prior VTE?: No VTE Risk Level:: Surgical - moderate VTE Device Contraindication: N/A - Device Ordered VTE Drug Contraindication: N/A - Med Ordered Procedures Date of Service Date of Service: 06/19/24
--- NOTE | 2024-06-19 13:18 | PHA.MEDREC ---
Addendum entered by Lakisha Murray anthony 06/19/24 14:00: reviewed Original Note: Pharmacy Consult ? Medication Reconciliation Pharmacy has completed the medication reconciliation. Spoke to patient at bedside, he was able to tell me all the medications he takes. Stated he does not take the doxycycline anymore.
[2024-06-19] MEDS: Dextrose 5 % and Lactated Ring 1,000 ML 125 ML IVCONT ×2 (13:21→21:41)
[2024-06-19 13:34] LABS: Appearance Urine Clear; Color Urine Yellow; Glucose Urine UA Negative (Negative); Leukocyte Esterase Urine Negative (Negative); Nitrite Urine Negative (Negative); Specific Gravity - Urine >= 1.030 (1.005-1.025); Urine Blood Negative (Negative); Urine Ketones Negative (Negative); Urine Protein Negative (Neg-Trace)
[2024-06-20] MEDS: Dextrose 5 % and Lactated Ring 1,000 ML 125 ML IVCONT ×3 (05:37→20:49)
--- NOTE | 2024-06-20 07:43 | PM.PNGS ---
Subjective Subjective Date of Service: 06/20/24 Patient reports: no new complaints, feels better, flatus and no bowel movement Physical Exam Vital Signs: Vital Signs: Last Vital Signs Temp 97.9 F 06/19/24 23:26 Pulse 82 06/19/24 23:26 Resp 17 06/19/24 23:26 BP 154/74 H 06/19/24 23:26 Pulse Ox 96 06/19/24 23:26 O2 Del Method Room Air 06/19/24 23:26 BMI result Body Mass Index 23.2 Const: General: no acute distress Nutritional Appearance: well nourished Orientation/consciousness: patient oriented x3 Resp: Effort & Inspection: normal respiratory effort GI: Inspection: Yes distended Palpation (GI): Soft to palpation, nontender, no guarding and not rigid Percussion: Yes normal to percussion Neuro: General: patient oriented x3 Extrem: General: No edema Objective Data Active Medications Acetaminophen (Acetaminophen 325 Mg Tablet) 650 mg PO Q6H PRN PRN Reason: Pain, Mild (Pain Scale 1-3), fever or headache Amlodipine Besylate (Amlodipine Besylate 2.5 Mg Tablet) 7.5 mg PO BEDTIME [facility]; Protocol Aspirin (Aspirin Enteric Coated 81 Mg Tablet.Dr) 81 mg PO DAILY [facility] Atorvastatin Calcium (Atorvastatin Calcium 40 Mg Tablet) 40 mg PO DAILY [facility] Calcium Carbonate (Calcium Carbonate 750 Mg Tab.Chew) 750 mg PO Q4H PRN PRN Reason: Heartburn Clopidogrel Bisulfate (Clopidogrel Bisulfate 75 Mg Tablet) 75 mg PO DAILY [facility] Enoxaparin Sodium (Enoxaparin Sodium 40 Mg/0.4 Ml Syringe) 40 mg SUBCUT Q24H [facility] Hydromorphone HCl (Hydromorphone Hcl 0.5 Mg/0.5 Ml Syringe) 0.5 mg IVPUSH Q3H PRN; Protocol PRN Reason: Pain, Severe (Pain Scale 7-10) Dextrose/Lactated Ringer's (D5lr) 1,000 mls @ 125 mls/hr IVCONT .Q8H [facility] Last Admin: 06/20/24 05:37 Dose: 125 mls/hr Documented By: JOÃO Lactulose (Lactulose 20 Gm/30 Ml Solution) 20 gm PO DAILY PRN PRN Reason: for constipation Levetiracetam (Levetiracetam 250 Mg Tablet) 250 mg PO BID [facility] Magnesium Hydroxide (Milk Of Magnesia 30 Ml Oral.Susp) 30 ml PO DAILY PRN PRN Reason: Constipation Melatonin (Melatonin 3 Mg Tablet) 6 mg PO BEDTIME PRN PRN Reason: Insomnia Metoprolol Tartrate (Metoprolol Tartrate 12.5 Mg Halftab) 12.5 mg PO BID [facility]; Protocol Ondansetron HCl (Ondansetron Hcl 4 Mg/2 Ml Vial) 4 mg IVPUSH QID PRN PRN Reason: Nausea Sodium Chloride (0.9 % Sodium Chloride Flush 3 Ml Syringe) 3 ml IVFLUSH QSHIFT [facility] Last Admin: 06/19/24 21:41 Dose: Not Given Documented By: OJÃO Non-Admin Reason: IV Running Labs 06/19/24 06:42 06/19/24 06:42 Labs: Laboratory Results - last 24 hr 06/19/24 13:25 Urine Color Yellow Urine Appearance Clear Urine pH 6.0 Ur Specific [place] >= 1.030 H Urine Protein Negative Urine Glucose (UA) Negative Urine Ketones Negative Urine Blood Negative Urine Nitrite Negative Ur Leukocyte Esterase Negative Procedures Date of Service Date of Service: 06/20/24 Progress Note: A&P Assessment and plan (1) Small bowel obstruction: Status: Acute Plan 89 year old male patient with recurrent SBO, reports passing some flatus over night, denies abdominal pain, nausea or vomiting. Abdominal exam is less distended, no tympany Will start clear liquid diet, restart medications. OOB and ambulation Time Spent With Patient Time: Total time managing care of this patient today ____ minutes. Quality Stroke Does the patient have a stroke diagnosis?: Yes Reason for No Anti-thrombotic by Day Two: N/A - Med Ordered VTE Prior VTE?: No VTE Risk Level:: Surgical - moderate VTE Device Contraindication: N/A - Device Ordered VTE Drug Contraindication: N/A - Med Ordered
[2024-06-20 07:57] VITALS: BP 155/72; PULSE 81; RESP 18; TEMP 36.5; O2SAT 96
[2024-06-20] MEDS: Atorvastatin Calcium 40 MG TABLET PO (08:35)
[2024-06-20] MEDS: Clopidogrel Bisulfate 75 MG TABLET PO (08:35)
[2024-06-20] MEDS: levETIRAcetam 250 MG TABLET PO ×2 (08:35→20:45)
[2024-06-20] MEDS: Metoprolol Tartrate 12.5 MG HALFTAB PO ×2 (08:35→20:45)
[2024-06-20] MEDS: Aspirin Enteric Coated 81 MG TABLET.DR PO (08:35)
--- NOTE | 2024-06-20 09:07 | MHC.CM.PN ---
IMM delivered. Patient lives in a home w/ granddaughter. Ambulates w/ cane. PCP Pro Nunn MD HCP on file. Primary [facility] is late , Lisa. Alternate is daughter Lalitha. Patient does not wish to complete new HCP. DP: Goal is home self care, family transport. Has previously used [facility] services, and would use again if recommended. CM will continue to follow.
[2024-06-20] MEDS: Enoxaparin Sodium 40 MG/0.4 ML SYRINGE SUBCUT (12:35)
--- NOTE | 2024-06-20 14:58 | P.CONHOSP_ITS ---
History of Present Illness Data of Consult Service Date: 06/20/24 Primary Care Provider: Pro Nunn MD HPI 89/m with CAD s/p RCA NICOLE in oct 2023, carotid stenosis s/p alli CEA, TORRES, HLD, HTN, , prostate CA s/p XRT, bladder neck obstruction, rectal CA s/p resection/chemo/XRT, recurrent SBOs. He admitted to surgery for recurrent SBO that is being managed non-surgically. He is improving, passing gas, has bowel sounds and is tolerating liquid diet and has no pain. Review of Systems 2 Review of Systems: Gen: no fever Resp: no sob, no cough CV: no chest, no HOLM, no leg edema GI: No n/v, no abd pain Neuro: No confusion [facility] Medical History CAD (coronary artery disease) Afib CVA (cerebral vascular accident) Self-catheterizes urinary bladder History of trigger finger Arthritis Preoperative cardiovascular examination Symptomatic stenosis of left carotid artery Rectal cancer Bladder neck contracture GERD (gastroesophageal reflux disease) Urinary incontinence Obstructive sleep apnea Coronary artery disease Type 2 diabetes mellitus with hyperglycemia Small bowel obstruction Erectile dysfunction Overweight (BMI 25.0-29.9) Peripheral vascular disease Prostate cancer Hematuria Constipation BPH (benign prostatic hyperplasia) Prostate cancer Colon cancer Dysuria Hyperlipidemia, unspecified Essential hypertension Family History Father Pancreatic cancer Mother No problems noted. Brother Liver cancer Surgical History History of left-sided carotid endarterectomy History of coronary artery stent placement History of exploratory laparotomy History of carpal tunnel release History of prostate surgery (~2016) History of bladder surgery (~01/04/18) History of colectomy History of appendectomy Social History Household Members: Family Household Members Other:: Granddaughter Housing: House Are you a primary career representative to a significant other at home: No Do you presently have visiting nurse or other home services: No Alcohol intake: never Patient Tobacco Use Status: Former Tobacco user Tobacco use type: Cigarette e-Cigarette/Vaping Use: Never Used Second Hand Smoke Exposure: No Advance Directives Date on File: 09/29/20 service: No Current occupational status: retired Cognitive needs: Yes (cane) Hearing needs: Yes (hearing aide) Vision needs: Yes (glasses) Meds Allergies Allergy/AdvReac Type Severity Reaction Status Date / Time diphenhydramine AdvReac Intermediate Hallucinati Verified 06/19/24 05:45 [From [place]] ons Active Medications: Current Medications Acetaminophen (Acetaminophen 325 Mg Tablet) 650 mg PO Q6H PRN PRN Reason: Pain, Mild (Pain Scale 1-3), fever or headache Amlodipine Besylate (Amlodipine Besylate 2.5 Mg Tablet) 7.5 mg PO BEDTIME [facility]; Protocol Aspirin (Aspirin Enteric Coated 81 Mg Tablet.Dr) 81 mg PO DAILY [facility] Last Admin: 06/20/24 08:35 Dose: 81 mg Atorvastatin Calcium (Atorvastatin Calcium 40 Mg Tablet) 40 mg PO DAILY [facility] Last Admin: 06/20/24 08:35 Dose: 40 mg Calcium Carbonate (Calcium Carbonate 750 Mg Tab.Chew) 750 mg PO Q4H PRN PRN Reason: Heartburn Clopidogrel Bisulfate (Clopidogrel Bisulfate 75 Mg Tablet) 75 mg PO DAILY [facility] Last Admin: 06/20/24 08:35 Dose: 75 mg Enoxaparin Sodium (Enoxaparin Sodium 40 Mg/0.4 Ml Syringe) 40 mg SUBCUT Q24H [facility] Last Admin: 06/20/24 12:35 Dose: 40 mg Hydromorphone HCl (Hydromorphone Hcl 0.5 Mg/0.5 Ml Syringe) 0.5 mg IVPUSH Q3H PRN; Protocol PRN Reason: Pain, Severe (Pain Scale 7-10) Dextrose/Lactated Ringer's (D5lr) 1,000 mls @ 125 mls/hr IVCONT .Q8H [facility] Last Admin: 06/20/24 12:37 Dose: 125 mls/hr Lactulose (Lactulose 20 Gm/30 Ml Solution) 20 gm PO DAILY PRN PRN Reason: for constipation Levetiracetam (Levetiracetam 250 Mg Tablet) 250 mg PO BID [facility] Last Admin: 06/20/24 08:35 Dose: 250 mg Magnesium Hydroxide (Milk Of Magnesia 30 Ml Oral.Susp) 30 ml PO DAILY PRN PRN Reason: Constipation Melatonin (Melatonin 3 Mg Tablet) 6 mg PO BEDTIME PRN PRN Reason: Insomnia Metoprolol Tartrate (Metoprolol Tartrate 12.5 Mg Halftab) 12.5 mg PO BID [facility]; Protocol Last Admin: 06/20/24 08:35 Dose: 12.5 mg Ondansetron HCl (Ondansetron Hcl 4 Mg/2 Ml Vial) 4 mg IVPUSH QID PRN PRN Reason: Nausea Sodium Chloride (0.9 % Sodium Chloride Flush 3 Ml Syringe) 3 ml IVFLUSH QSHIFT [facility] Last Admin: 06/20/24 08:32 Dose: Not Given Home Medications ?Medication ?Instructions ?Recorded ?Confirmed ?Last Taken ?Type aspirin 81 mg tablet,delayed 81 mg PO DAILY 12/01/22 06/19/24 03/31/24 History release cyanocobalamin (vitamin B-12) 1,000 mcg PO DAILY 12/01/22 06/19/24 06/18/24 History 1,000 mcg tablet docusate sodium 100 mg capsule 100 mg PO DAILY PRN Constipation 01/12/24 06/19/24 06/18/24 History metoprolol tartrate 25 mg tablet 12.5 mg PO BID 03/14/24 06/19/24 06/18/24 History Physical Exam 2 Vital Signs and Narrative: Vital Signs: Last Vital Signs Temp 97.7 F 06/20/24 07:57 Pulse 81 06/20/24 07:57 Resp 18 06/20/24 07:57 BP 155/72 H 06/20/24 07:57 Pulse Ox 96 06/20/24 07:57 O2 Del Method Room Air 06/20/24 07:57 BMI result Body Mass Index 23.2 Results Labs 06/19/24 06:42 06/19/24 06:42 Assessment and Plan (1) Small bowel obstruction: Status: Acute Plan 89/m with CAD s/p RCA NICOLE in oct 2023, carotid stenosis s/p alli CEA, TORRES, HLD, HTN, , prostate CA s/p XRT, bladder neck obstruction, rectal CA s/p resection/chemo/XRT, recurrent SBOs. He admitted to surgery for recurrent SBO that is being managed non-surgically. SBO-management per surgery CAD. s/p NICOLE RCA Oct 2023 -Plavis, Lipitor, Metoprolol HTN-conrolled - Continue metoprolol, norvasc Type 2 diabetes mellitus. -diet control, check POCs Hyperlipidemia -Lipitor Obstructive sleep apnea. doesn't use CPAP
[2024-06-20 15:24] VITALS: BP 109/76; PULSE 94; RESP 18; TEMP 36.4; O2SAT 95
[2024-06-20 16:05] LABS: Glucose, Whole Blood 102 mg/dL (60-115)
[2024-06-20 20:45] VITALS: BP 109/76
[2024-06-20] MEDS: amLODIPine Besylate 2.5 MG TABLET 7.5 MG PO (20:45)
[2024-06-20 23:21] VITALS: BP 145/63; PULSE 65; RESP 17; TEMP 36.3; O2SAT 95
[2024-06-21] MEDS: Dextrose 5 % and Lactated Ring 1,000 ML 125 ML IVCONT ×2 (04:39→12:29)
[2024-06-21 07:13] LABS: Glucose, Whole Blood 103 mg/dL (60-115)
[2024-06-21 07:56] LABS: Glucose, Whole Blood 94 mg/dL (60-115)
--- NOTE | 2024-06-21 07:56 | PM.PNGS ---
Subjective Subjective Date of Service: 06/21/24 Interval history: Feels better. Tolerating liquids without nausea or vomiting. Denies abd pain. Passing flatus. OOB and ambulating. Hungry and wants to eat. Physical Exam Vital Signs: Vital Signs: Last Vital Signs Temp 97.4 F 06/20/24 23:21 Pulse 65 06/20/24 23:21 Resp 17 06/20/24 23:21 BP 145/63 H 06/20/24 23:21 Pulse Ox 95 06/20/24 23:21 O2 Del Method Room Air 06/20/24 23:21 BMI result Body Mass Index 23.2 Const: General: comfortable, no acute distress and alert Resp: Effort & Inspection: normal respiratory effort GI: Inspection: No distended Palpation (GI): Soft to palpation and nontender Skin: General skin exam: no rashes or lesions noted Objective Data Active Medications Acetaminophen (Acetaminophen 325 Mg Tablet) 650 mg PO Q6H PRN PRN Reason: Pain, Mild (Pain Scale 1-3), fever or headache Amlodipine Besylate (Amlodipine Besylate 2.5 Mg Tablet) 7.5 mg PO BEDTIME [facility]; Protocol Last Admin: 06/20/24 20:45 Dose: 7.5 mg Documented By: JOÃO Aspirin (Aspirin Enteric Coated 81 Mg Tablet.) 81 mg PO DAILY [facility] Last Admin: 06/20/24 08:35 Dose: 81 mg Documented By: ALEXX Atorvastatin Calcium (Atorvastatin Calcium 40 Mg Tablet) 40 mg PO DAILY [facility] Last Admin: 06/20/24 08:35 Dose: 40 mg Documented By: ALEXX Calcium Carbonate (Calcium Carbonate 750 Mg Tab.Chew) 750 mg PO Q4H PRN PRN Reason: Heartburn Clopidogrel Bisulfate (Clopidogrel Bisulfate 75 Mg Tablet) 75 mg PO DAILY [facility] Last Admin: 06/20/24 08:35 Dose: 75 mg Documented By: ALEXX Enoxaparin Sodium (Enoxaparin Sodium 40 Mg/0.4 Ml Syringe) 40 mg SUBCUT Q24H [facility] Last Admin: 06/20/24 12:35 Dose: 40 mg Documented By: ALEXX Glucose (Glucose Gel 15 Gm Gel..Gram.) 15 gm PO Q15M PRN; Protocol PRN Reason: per Hypoglycemia Standing Ord. Hydromorphone HCl (Hydromorphone Hcl 0.5 Mg/0.5 Ml Syringe) 0.5 mg IVPUSH Q3H PRN; Protocol PRN Reason: Pain, Severe (Pain Scale 7-10) Dextrose/Lactated Ringer's (D5lr) 1,000 mls @ 125 mls/hr IVCONT .Q8H [facility] Last Admin: 06/21/24 04:39 Dose: 125 mls/hr Documented By: JOÃO Dextrose (D10) 250 mls @ 750 mls/hr IV Q15M PRN; Protocol PRN Reason: per Hypoglycemia Standing Ord. Insulin Human Lispro (Insulin Lispro 100 Unit/Ml 3 Ml Vial) 0 unit SUBCUT QIDACHS [facility]; Protocol Last Admin: 06/21/24 07:16 Dose: Not Given Documented By: DEIDRA Non-Admin Reason: No Insulin Coverage Lactulose (Lactulose 20 Gm/30 Ml Solution) 20 gm PO DAILY [facility] Levetiracetam (Levetiracetam 250 Mg Tablet) 250 mg PO BID [facility] Last Admin: 06/20/24 20:45 Dose: 250 mg Documented By: JOÃO Magnesium Hydroxide (Milk Of Magnesia 30 Ml Oral.Susp) 30 ml PO DAILY PRN PRN Reason: Constipation Melatonin (Melatonin 3 Mg Tablet) 6 mg PO BEDTIME PRN PRN Reason: Insomnia Metoprolol Tartrate (Metoprolol Tartrate 12.5 Mg Halftab) 12.5 mg PO BID [facility]; Protocol Last Admin: 06/20/24 20:45 Dose: 12.5 mg Documented By: JOÃO Ondansetron HCl (Ondansetron Hcl 4 Mg/2 Ml Vial) 4 mg IVPUSH QID PRN PRN Reason: Nausea Sodium Chloride (0.9 % Sodium Chloride Flush 3 Ml Syringe) 3 ml IVFLUSH QSHIFT [facility] Last Admin: 06/20/24 20:50 Dose: Not Given Documented By: JOÃO Non-Admin Reason: IV Running Labs 06/19/24 06:42 06/19/24 06:42 Labs: Laboratory Results - last 24 hr 06/20/24 06/20/24 15:53 20:13 POC Glucose 102 103 Procedures Date of Service Date of Service: 06/21/24 Progress Note: A&P Assessment and plan (1) Small bowel obstruction: Status: Acute Plan 89 year old male patient with recurrent SBO. Tolerating clear liquids, continues to pass flatus. Abd benign, soft NTND. Advance to solid diet. Lactulose ordered. Cont OOB/ambulation. Home if tolerating solid diet. Patient comfortable with plan. Time Spent With Patient Time: Total time managing care of this patient today ____ minutes. Quality Stroke Does the patient have a stroke diagnosis?: Yes Reason for No Anti-thrombotic by Day Two: N/A - Med Ordered VTE Prior VTE?: No VTE Risk Level:: Surgical - moderate VTE Device Contraindication: N/A - Device Ordered VTE Drug Contraindication: N/A - Med Ordered
[2024-06-21 08:00] VITALS: BP 157/69; PULSE 67; RESP 14; TEMP 36.7; O2SAT 94
--- NOTE | 2024-06-21 08:40 | HO.PM.IMPN ---
Subjective Subjective Date of Service: 06/21/24 Interval History: f/u med management here for SBO no pain, no bm, +flatus Physical Exam Vital Signs: Vital Signs: Last Vital Signs Temp 98.1 F 06/21/24 08:00 Pulse 67 06/21/24 08:00 Resp 14 06/21/24 08:00 BP 157/69 H 06/21/24 08:00 Pulse Ox 94 06/21/24 08:00 O2 Del Method Room Air 06/21/24 08:00 BMI result Body Mass Index 23.2 General: AO X 3, no acute distress Resp: CTA bilateral CVS: S1,S2,RRR GI: +BS, NT, no distention Skin: No rash Neuro: motor grossly intact Psych: appropriate affect Objective Data Active Medications Acetaminophen (Acetaminophen 325 Mg Tablet) 650 mg PO Q6H PRN PRN Reason: Pain, Mild (Pain Scale 1-3), fever or headache Amlodipine Besylate (Amlodipine Besylate 2.5 Mg Tablet) 7.5 mg PO BEDTIME [facility]; Protocol Last Admin: 06/20/24 20:45 Dose: 7.5 mg Documented By: JOÃO Aspirin (Aspirin Enteric Coated 81 Mg Tablet.) 81 mg PO DAILY [facility] Last Admin: 06/20/24 08:35 Dose: 81 mg Documented By: ALEXX Atorvastatin Calcium (Atorvastatin Calcium 40 Mg Tablet) 40 mg PO DAILY [facility] Last Admin: 06/20/24 08:35 Dose: 40 mg Documented By: ALEXX Calcium Carbonate (Calcium Carbonate 750 Mg Tab.Chew) 750 mg PO Q4H PRN PRN Reason: Heartburn Clopidogrel Bisulfate (Clopidogrel Bisulfate 75 Mg Tablet) 75 mg PO DAILY [facility] Last Admin: 06/20/24 08:35 Dose: 75 mg Documented By: ALEXX Enoxaparin Sodium (Enoxaparin Sodium 40 Mg/0.4 Ml Syringe) 40 mg SUBCUT Q24H [facility] Last Admin: 06/20/24 12:35 Dose: 40 mg Documented By: ALEXX Glucose (Glucose Gel 15 Gm Gel..Gram.) 15 gm PO Q15M PRN; Protocol PRN Reason: per Hypoglycemia Standing Ord. Hydromorphone HCl (Hydromorphone Hcl 0.5 Mg/0.5 Ml Syringe) 0.5 mg IVPUSH Q3H PRN; Protocol PRN Reason: Pain, Severe (Pain Scale 7-10) Dextrose/Lactated Ringer's (D5lr) 1,000 mls @ 125 mls/hr IVCONT .Q8H [facility] Last Admin: 06/21/24 04:39 Dose: 125 mls/hr Documented By: JOÃO Dextrose (D10) 250 mls @ 750 mls/hr IV Q15M PRN; Protocol PRN Reason: per Hypoglycemia Standing Ord. Insulin Human Lispro (Insulin Lispro 100 Unit/Ml 3 Ml Vial) 0 unit SUBCUT QIDACHS [facility]; Protocol Last Admin: 06/21/24 07:16 Dose: Not Given Documented By: DEIDRA Non-Admin Reason: No Insulin Coverage Lactulose (Lactulose 20 Gm/30 Ml Solution) 20 gm PO DAILY [facility] Levetiracetam (Levetiracetam 250 Mg Tablet) 250 mg PO BID [facility] Last Admin: 06/20/24 20:45 Dose: 250 mg Documented By: JOÃO Magnesium Hydroxide (Milk Of Magnesia 30 Ml Oral.Susp) 30 ml PO DAILY PRN PRN Reason: Constipation Melatonin (Melatonin 3 Mg Tablet) 6 mg PO BEDTIME PRN PRN Reason: Insomnia Metoprolol Tartrate (Metoprolol Tartrate 12.5 Mg Halftab) 12.5 mg PO BID [facility]; Protocol Last Admin: 06/20/24 20:45 Dose: 12.5 mg Documented By: JOÃO Ondansetron HCl (Ondansetron Hcl 4 Mg/2 Ml Vial) 4 mg IVPUSH QID PRN PRN Reason: Nausea Sodium Chloride (0.9 % Sodium Chloride Flush 3 Ml Syringe) 3 ml IVFLUSH QSHIFT [facility] Last Admin: 06/20/24 20:50 Dose: Not Given Documented By: JOÃO Non-Admin Reason: IV Running Labs 06/19/24 06:42 06/19/24 06:42 Labs: Laboratory Results - last 24 hr 06/20/24 06/20/24 06/21/24 15:53 20:13 07:50 POC Glucose 102 103 94 Assessment and Plan (1) Small bowel obstruction: Status: Acute (2) Hyperlipidemia, unspecified: Status: Acute Plan 89/m with CAD s/p RCA NICOLE in oct 2023, carotid stenosis s/p alli CEA, TORRES, HLD, HTN, h/o of transient post op afib no further occurance, prostate CA s/p XRT, 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 He admitted to surgery for recurrent SBO that is being managed non-surgically. SBO-management per surgery CAD. s/p NICOLE RCA Oct 2023 -Plavix, ASA, Lipitor, Metoprolol HTN-conrolled - Continue metoprolol, norvasc Type 2 diabetes mellitus. -diet control, check POCs Hyperlipidemia -Lipitor Obstructive sleep apnea. doesn't use CPAP lovenox for dvt prophylaxis Quality Stroke Does the patient have a stroke diagnosis?: Yes Reason for No Anti-thrombotic by Day Two: N/A - Med Ordered VTE Prior VTE?: No VTE Risk Level:: Surgical - moderate VTE Device Contraindication: N/A - Device Ordered VTE Drug Contraindication: N/A - Med Ordered
[2024-06-21] MEDS: Lactulose 20 GM/30 ML SOLUTION PO ×2 (08:45→20:03)
[2024-06-21] MEDS: Aspirin Enteric Coated 81 MG TABLET.DR PO (08:45)
[2024-06-21] MEDS: Metoprolol Tartrate 12.5 MG HALFTAB PO ×2 (08:45→20:03)
[2024-06-21] MEDS: Atorvastatin Calcium 40 MG TABLET PO (08:46)
[2024-06-21] MEDS: Clopidogrel Bisulfate 75 MG TABLET PO (08:46)
[2024-06-21] MEDS: levETIRAcetam 250 MG TABLET PO ×2 (08:46→20:04)
--- NOTE | 2024-06-21 10:51 | MHC.CM.PN ---
Per EMR, patient not medically cleared for dc at this time. CM will continue to follow.
[2024-06-21 11:17] LABS: Glucose, Whole Blood 110 mg/dL (60-115)
[2024-06-21] MEDS: Enoxaparin Sodium 40 MG/0.4 ML SYRINGE SUBCUT (12:27)
[2024-06-21 16:00] VITALS: BP 141/63; PULSE 60; RESP 12; TEMP 36.2; O2SAT 95
[2024-06-21 16:00] LABS: Glucose, Whole Blood 94 mg/dL (60-115)
[2024-06-21 19:53] VITALS: BP 154/70; PULSE 68; RESP 18; TEMP 36.3; O2SAT 97
[2024-06-21 19:58] VITALS: BP 160/74; PULSE 66; RESP 18; TEMP 36.6; O2SAT 96
[2024-06-21 20:04] VITALS: BP 160/74
[2024-06-21] MEDS: amLODIPine Besylate 2.5 MG TABLET 7.5 MG PO (20:04)
[2024-06-21 20:19] LABS: Glucose, Whole Blood 116 mg/dL (60-115)
[2024-06-22] MEDS: Dextrose 5 % and Lactated Ring 1,000 ML 125 ML IVCONT (02:37)
[2024-06-22 03:28] VITALS: BP 139/71; PULSE 63; RESP 14; TEMP 36.2; O2SAT 95
[2024-06-22 07:29] VITALS: BP 133/63; PULSE 64; RESP 16; TEMP 36.1; O2SAT 94
[2024-06-22 07:35] LABS: Glucose, Whole Blood 106 mg/dL (60-115)
[2024-06-22] MEDS: Clopidogrel Bisulfate 75 MG TABLET PO (08:11)
[2024-06-22] MEDS: Atorvastatin Calcium 40 MG TABLET PO (08:11)
[2024-06-22] MEDS: Aspirin Enteric Coated 81 MG TABLET.DR PO (08:11)
[2024-06-22] MEDS: levETIRAcetam 250 MG TABLET PO (08:11)
[2024-06-22] MEDS: Lactulose 20 GM/30 ML SOLUTION PO (08:11)
[2024-06-22] MEDS: Metoprolol Tartrate 12.5 MG HALFTAB PO (08:11)
--- NOTE | 2024-06-22 09:08 | HO.PM.IMPN ---
Subjective Subjective Date of Service: 06/22/24 Interval History: f/u med management here for SBO no pain, + bm, +flatus Physical Exam Vital Signs: Vital Signs: Last Vital Signs Temp 97.0 F 06/22/24 07:29 Pulse 64 06/22/24 07:29 Resp 16 06/22/24 07:29 BP 133/63 06/22/24 07:29 Pulse Ox 94 06/22/24 07:29 O2 Del Method Room Air 06/22/24 07:29 BMI result Body Mass Index 23.2 General: AO X 3, no acute distress Resp: CTA bilateral CVS: S1,S2,RRR GI: +BS, NT, no distention Skin: No rash Neuro: motor grossly intact Psych: appropriate affect Objective Data Active Medications Acetaminophen (Acetaminophen 325 Mg Tablet) 650 mg PO Q6H PRN PRN Reason: Pain, Mild (Pain Scale 1-3), fever or headache Amlodipine Besylate (Amlodipine Besylate 2.5 Mg Tablet) 7.5 mg PO BEDTIME [facility]; Protocol Last Admin: 06/21/24 20:04 Dose: 7.5 mg Documented By: ERNESTO Aspirin (Aspirin Enteric Coated 81 Mg Tablet.) 81 mg PO DAILY [facility] Last Admin: 06/22/24 08:11 Dose: 81 mg Documented By: COTEMA Atorvastatin Calcium (Atorvastatin Calcium 40 Mg Tablet) 40 mg PO DAILY [facility] Last Admin: 06/22/24 08:11 Dose: 40 mg Documented By: COTEMA Calcium Carbonate (Calcium Carbonate 750 Mg Tab.Chew) 750 mg PO Q4H PRN PRN Reason: Heartburn Clopidogrel Bisulfate (Clopidogrel Bisulfate 75 Mg Tablet) 75 mg PO DAILY [facility] Last Admin: 06/22/24 08:11 Dose: 75 mg Documented By: COTEMA Enoxaparin Sodium (Enoxaparin Sodium 40 Mg/0.4 Ml Syringe) 40 mg SUBCUT Q24H [facility] Last Admin: 06/21/24 12:27 Dose: 40 mg Documented By: FOGARTB Glucose (Glucose Gel 15 Gm Gel..Gram.) 15 gm PO Q15M PRN; Protocol PRN Reason: per Hypoglycemia Standing Ord. Hydromorphone HCl (Hydromorphone Hcl 0.5 Mg/0.5 Ml Syringe) 0.5 mg IVPUSH Q3H PRN; Protocol PRN Reason: Pain, Severe (Pain Scale 7-10) Dextrose/Lactated Ringer's (D5lr) 1,000 mls @ 125 mls/hr IVCONT .Q8H [facility] Last Admin: 06/22/24 02:37 Dose: 125 mls/hr Documented By: CASTILM Dextrose (D10) 250 mls @ 750 mls/hr IV Q15M PRN; Protocol PRN Reason: per Hypoglycemia Standing Ord. Insulin Human Lispro (Insulin Lispro 100 Unit/Ml 3 Ml Vial) 0 unit SUBCUT QIDACHS [facility]; Protocol Last Admin: 06/22/24 07:39 Dose: Not Given Documented By: COTEMA Non-Admin Reason: No Insulin Coverage Lactulose (Lactulose 20 Gm/30 Ml Solution) 20 gm PO BID [facility] Last Admin: 06/22/24 08:11 Dose: 20 gm Documented By: COTEMA Levetiracetam (Levetiracetam 250 Mg Tablet) 250 mg PO BID [facility] Last Admin: 06/22/24 08:11 Dose: 250 mg Documented By: COTEMA Magnesium Hydroxide (Milk Of Magnesia 30 Ml Oral.Susp) 30 ml PO DAILY PRN PRN Reason: Constipation Melatonin (Melatonin 3 Mg Tablet) 6 mg PO BEDTIME PRN PRN Reason: Insomnia Metoprolol Tartrate (Metoprolol Tartrate 12.5 Mg Halftab) 12.5 mg PO BID [facility]; Protocol Last Admin: 06/22/24 08:11 Dose: 12.5 mg Documented By: COTEMA Ondansetron HCl (Ondansetron Hcl 4 Mg/2 Ml Vial) 4 mg IVPUSH QID PRN PRN Reason: Nausea Sodium Chloride (0.9 % Sodium Chloride Flush 3 Ml Syringe) 3 ml IVFLUSH QSHIFT [facility] Last Admin: 06/22/24 07:39 Dose: Not Given Documented By: COTEMA Non-Admin Reason: IV Running Labs 06/19/24 06:42 06/19/24 06:42 Labs: Laboratory Results - last 24 hr 06/21/24 06/21/24 06/21/24 11:10 15:45 20:16 POC Glucose 110 94 116 H 06/22/24 07:32 POC Glucose 106 Assessment and Plan (1) Small bowel obstruction: Status: Acute (2) Hyperlipidemia, unspecified: Status: Acute Plan 89/m with CAD s/p RCA NICOLE in oct 2023, carotid stenosis s/p alli CEA, TORRES, HLD, HTN, h/o of transient post op afib no further occurance, prostate CA s/p XRT, 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 He admitted to surgery for recurrent SBO that is being managed non-surgically. SBO--clinically appear resolved. -management per surgery CAD. s/p NICOLE RCA Oct 2023 -Plavix, ASA, Lipitor, Metoprolol HTN-conrolled - Continue metoprolol, norvasc Type 2 diabetes mellitus. -diet control, check POCs Hyperlipidemia -Lipitor Obstructive sleep apnea. doesn't use CPAP lovenox for dvt prophylaxis to resume all home meds upon discharge, no acute medical issues, singing off Quality Stroke Does the patient have a stroke diagnosis?: Yes Reason for No Anti-thrombotic by Day Two: N/A - Med Ordered VTE Prior VTE?: No VTE Risk Level:: Surgical - moderate VTE Device Contraindication: N/A - Device Ordered VTE Drug Contraindication: N/A - Med Ordered
[2024-06-22 11:01] LABS: Glucose, Whole Blood 103 mg/dL (60-115)
[2024-06-22] MEDS: Enoxaparin Sodium 40 MG/0.4 ML SYRINGE SUBCUT (11:50)
--- NOTE | 2024-06-22 14:26 | P.PNGS_ITS ---
Subjective Subjective Date of Service: 06/22/24 Interval history: Patient was doing well. He is tolerating his diet. Having bowel movements. He is up ambulating. He wishes to be discharged home. Physical Exam 2 Vital Signs: Vital Signs: Last Vital Signs Temp 97.0 F 06/22/24 07:29 Pulse 64 06/22/24 07:29 Resp 16 06/22/24 07:29 BP 133/63 06/22/24 07:29 Pulse Ox 94 06/22/24 07:29 O2 Del Method Room Air 06/22/24 07:29 BMI result Body Mass Index 23.2 GI: Other: Abdomen moderately corpulent, soft, benign nontender Objective Data Active Medications Acetaminophen (Acetaminophen 325 Mg Tablet) 650 mg PO Q6H PRN PRN Reason: Pain, Mild (Pain Scale 1-3), fever or headache Amlodipine Besylate (Amlodipine Besylate 2.5 Mg Tablet) 7.5 mg PO BEDTIME [facility]; Protocol Last Admin: 06/21/24 20:04 Dose: 7.5 mg Documented By: ERNESTO Aspirin (Aspirin Enteric Coated 81 Mg Tablet.) 81 mg PO DAILY [facility] Last Admin: 06/22/24 08:11 Dose: 81 mg Documented By: COTEMA Atorvastatin Calcium (Atorvastatin Calcium 40 Mg Tablet) 40 mg PO DAILY [facility] Last Admin: 06/22/24 08:11 Dose: 40 mg Documented By: COTEMA Calcium Carbonate (Calcium Carbonate 750 Mg Tab.Chew) 750 mg PO Q4H PRN PRN Reason: Heartburn Clopidogrel Bisulfate (Clopidogrel Bisulfate 75 Mg Tablet) 75 mg PO DAILY [facility] Last Admin: 06/22/24 08:11 Dose: 75 mg Documented By: COTEMA Enoxaparin Sodium (Enoxaparin Sodium 40 Mg/0.4 Ml Syringe) 40 mg SUBCUT Q24H [facility] Last Admin: 06/22/24 11:50 Dose: 40 mg Documented By: TREVEREMA Glucose (Glucose Gel 15 Gm Gel..Gram.) 15 gm PO Q15M PRN; Protocol PRN Reason: per Hypoglycemia Standing Ord. Hydromorphone HCl (Hydromorphone Hcl 0.5 Mg/0.5 Ml Syringe) 0.5 mg IVPUSH Q3H PRN; Protocol PRN Reason: Pain, Severe (Pain Scale 7-10) Dextrose (D10) 250 mls @ 750 mls/hr IV Q15M PRN; Protocol PRN Reason: per Hypoglycemia Standing Ord. Insulin Human Lispro (Insulin Lispro 100 Unit/Ml 3 Ml Vial) 0 unit SUBCUT QIDACHS [facility]; Protocol Last Admin: 06/22/24 11:03 Dose: Not Given Documented By: COTEMA Non-Admin Reason: No Insulin Coverage Lactulose (Lactulose 20 Gm/30 Ml Solution) 20 gm PO BID [facility] Last Admin: 06/22/24 08:11 Dose: 20 gm Documented By: COTEMA Levetiracetam (Levetiracetam 250 Mg Tablet) 250 mg PO BID [facility] Last Admin: 06/22/24 08:11 Dose: 250 mg Documented By: TREVEREMA Magnesium Hydroxide (Milk Of Magnesia 30 Ml Oral.Susp) 30 ml PO DAILY PRN PRN Reason: Constipation Melatonin (Melatonin 3 Mg Tablet) 6 mg PO BEDTIME PRN PRN Reason: Insomnia Metoprolol Tartrate (Metoprolol Tartrate 12.5 Mg Halftab) 12.5 mg PO BID [facility]; Protocol Last Admin: 06/22/24 08:11 Dose: 12.5 mg Documented By: TAMANNA Ondansetron HCl (Ondansetron Hcl 4 Mg/2 Ml Vial) 4 mg IVPUSH QID PRN PRN Reason: Nausea Sodium Chloride (0.9 % Sodium Chloride Flush 3 Ml Syringe) 3 ml IVFLUSH QSHIFT [facility] Last Admin: 06/22/24 07:39 Dose: Not Given Documented By: COTEMA Non-Admin Reason: IV Running Labs 06/19/24 06:42 06/19/24 06:42 Labs: Laboratory Results - last 24 hr 06/21/24 06/21/24 06/22/24 15:45 20:16 07:32 POC Glucose 94 116 H 106 06/22/24 10:57 POC Glucose 103 Procedures Date of Service Date of Service: 06/22/24 Progress Note: A&P Assessment and plan (1) Small bowel obstruction: Status: Acute Plan Current plan is discharge patient home with follow-up with Dr. Randle. Time Spent With Patient Time: Total time managing care of this patient today ____ minutes. Quality Stroke Does the patient have a stroke diagnosis?: Yes Reason for No Anti-thrombotic by Day Two: N/A - Med Ordered VTE Prior VTE?: No VTE Risk Level:: Surgical - moderate VTE Device Contraindication: N/A - Device Ordered VTE Drug Contraindication: N/A - Med Ordered
--- NOTE | 2024-06-22 15:09 | PM.DS ---
DS: Providers Provider Date of Service: 06/22/24 Date of admission: 06/19/24 12:01 Date of discharge: 06/22/24 Primary care physician: Pro Nunn MD Attending physician on admission: Simon Randle Consults: 06/19/24 13:15 Consult to Hospitalist Routine Comment: Consulting Provider: Hospitalist Reason For Exam: SBO, CAD, med management Attending physician on discharge: Zach Cat DS: Diagnosis Discharge Diagnosis (1) Small bowel obstruction: Status: Acute DS: Summary Hospital Course Hospital Course: Geoffrey Bone is a 89 year old male with a past medical history of coronary artery disease, and previous cerebrovascular accident, status post carotid endarterectomy and cardiac stent placement presenting with complaints of sharp abdominal pain which began during the night. The pain was quite severe and necessitated a visit to the emergency department. He has a prior history of small-bowel obstruction due to adhesions most recently in 12/19/2023. Current episode began suddenly without any inciting events. He denied any unusual oral intake. Upon presentation to the emergency department he was in severe pain. A CT abdomen and pelvis revealed dilated loops of small bowel with decompressed distal small bowel. Findings were suggestive of a partial small-bowel obstruction. HOSPITAL COURSE: He was admitted to the surgical service for further management of the PSBO. Supportive measures were continued with bowel rest, IVF, PRN analgesics and antiemetics. NGT was held as his vomiting resolved. The patient continued to improve and had resolution of his abdominal symptoms and his abdominal exam improved. He began to pass flatus. His diet was slowly advanced to clear liquids and then solids. He was started on a bowel regimen. On the day of discharge, he was tolerating a solid diet without nausea or vomiting, was moving his bowels and had no pain. His abdomen was soft and nondistended. He felt ready for discharge. He was discharged to home on 06/22/24 in stable condition. Status at Discharge Functional status at discharge: independent ambulation Overall status at discharge: patient is progressing back to baseline Time Attestation Discharge Coordination Time (in mins): 35 Quality: Safe Use of Opioids Does Pt have an Active Cancer Diagnosis on the Problem List?: No Quality: Stroke Does the patient have a stroke diagnosis?: No Physical Exam Vital Signs: Vital Signs: Last Vital Signs Temp 97.0 F 06/22/24 07:29 Pulse 64 06/22/24 07:29 Resp 16 06/22/24 07:29 BP 133/63 06/22/24 07:29 Pulse Ox 94 06/22/24 07:29 O2 Del Method Room Air 06/22/24 07:29 BMI result Body Mass Index 23.2 Const: General: comfortable, no acute distress and alert Orientation/consciousness: patient oriented x3 GI: Inspection: No distended Palpation (GI): Soft to palpation Neuro: General: patient oriented x3 DS: Data Data Completed and Pending Completed studies during hospitalization [Text1]: Procedures Dilation of Bladder Neck, Via Natural or Artificial Opening Endoscopic (04/01/24) Drainage of Bladder with Drainage Device, Via Natural or Artificial Opening Endoscopic (04/01/24) Extirpation of Matter from Left External Carotid Artery, Open Approach (12/02/23) Extirpation of Matter from Right Internal Carotid Artery, Open Approach (04/01/24) Extirpation of Matter from Right Neck Subcutaneous Tissue and Fascia, Open Approach (04/01/24) Insertion of Infusion Device into Superior Vena Cava, Percutaneous Approach (08/27/20) Supplement Left Internal Carotid Artery with Synthetic Substitute, Open Approach (12/02/23) Supplement Right Common Carotid Artery with Synthetic Substitute, Open Approach (04/01/24) Ultrasonography of Superior Vena Cava, Guidance (08/27/20) Discharge Plan Discharge Anticipated Discharge Date/Time: 06/22/24 14:28 Patient Disposition: Home, Self-Care Discharge Diagnosis: Partial small bowel obstruction Referrals: Simon Randle MD [Physician] - 1 Week Po,Pro Adame MD [Primary Care Provider] - 1 Week Discharge Medications: Continued lactulose 10 gram/15 mL solution 30 ml PO DAILY PRN (Reason: for constipation) Qty: 946 0RF rosuvastatin 10 mg tablet 10 mg PO DAILY Qty: 90 3RF amlodipine 2.5 mg tablet 7.5 mg PO BEDTIME Qty: 270 1RF cyanocobalamin (vitamin B-12) 1,000 mcg Tablet 1,000 mcg PO DAILY aspirin 81 mg Tablet,Delayed Release (Dr/Ec) 81 mg PO DAILY docusate sodium 100 mg capsule 100 mg PO DAILY PRN (Reason: Constipation) metoprolol tartrate 25 mg tablet 12.5 mg PO BID levetiracetam 250 mg Tablet 250 mg PO BID 90 Days Qty: 180 0RF clopidogrel 75 mg tablet 75 mg PO DAILY Qty: 90 3RF Discharge Orders: Discharge Order (Routine); Ordered 06/22/24 Ordered By: Zach Cat Diet: Advance to usual diet Activity on Discharge: No heavy lifting Stand Alone Forms: Patient Portal Discharge page Print Language: Pashto Care Plan Goals: Resume normal activities. Health Concerns: PSBO Plan of Treatment: Supportive with bowel rest, IVF Assessment: Resolved Discharge Date/Time: 06/22/24 15:57
--- NOTE | 2024-06-22 15:11 | MHC.CM.PN ---
pt dcd home self care
== END 2024-06-22 15:57 | disposition home or self-care (01) | DRG 390 ==
LOC: HO.ED 12:16 → HO.EDOVER 12:20 → HO.S3 17:30
PROVIDERS: Admitting Provider Surgery; Emergency Provider Emergency Medicine; PCP Internal Medicine; Visit Provider Surgery
DX: K56.51 Intestinal adhesions [bands], with partial obstruction (principal); I10 Essential (primary) hypertension; G47.33 Obstructive sleep apnea (adult) (pediatric); I25.10 Atherosclerotic heart disease of native coronary artery without angina pectoris; Z87.891 Personal history of nicotine dependence; Z95.5 Presence of coronary angioplasty implant and graft; Z86.73 Personal history of transient ischemic attack (TIA), and cerebral infarction without residual deficits; Z85.46 Personal history of malignant neoplasm of prostate; Z85.048 Personal history of other malignant neoplasm of rectum, rectosigmoid junction, and anus; Z79.02 Long term (current) use of antithrombotics/antiplatelets; Z79.82 Long term (current) use of aspirin; Z79.899 Other long term (current) drug therapy
CPT/HCPCS: 36415; 74177; 80048; 80076; 81003; 82947; 83690; 85025; 93005; 99285; J1650; J1790; J2270; J7120; Q9967

== ENCOUNTER → 2024-06-19 12:01 | Outpatient (BNV) | payer MEDICARE, OTHER, SELFPAY | PROVIDERS: Admitting Provider Surgery; Emergency Provider Emergency Medicine; PCP Internal Medicine; Visit Provider Surgery | DX: K56.609 Unspecified intestinal obstruction, unspecified as to partial versus complete obstruction (principal) | CPT/HCPCS: 99222; 99232; 99239; 99499 ==

== ENCOUNTER → 2024-06-19 12:01 | Outpatient (BNV) | payer MEDICARE, OTHER, SELFPAY | PROVIDERS: Admitting Provider Surgery; Emergency Provider Emergency Medicine; PCP Internal Medicine; Visit Provider Internal Medicine | DX: K56.609 Unspecified intestinal obstruction, unspecified as to partial versus complete obstruction (principal); E78.5 Hyperlipidemia, unspecified | CPT/HCPCS: 99222; 99232 ==

== ENCOUNTER 2024-06-28 12:53 | Outpatient (AMB) | payer MEDICARE, OTHER, SELFPAY ==
--- NOTE | 2024-06-28 12:54 | MHC.PC.OV ---
Vital Signs 06/28/24 12:57 Height 6 ft 2 in Weight 80.456 kg BMI 22.8 BP 100/68 Blood Pressure Location Lt brachial Position Sitting Pulse 56 Pulse Source Pulse Oximeter Pulse Oximetry (%) 100 Oxygen Delivery Method Room Air Intake Visit Reasons: [facility] 06/22 SBO,carotid stenosis Intake Note: Patient is here today for TCM, [place] [facility] [place]. Client Sales And Service Officer Required: No Mailroom Messenger: Not Required per policy Accompanied by: Self / Same As Patient Allergies diphenhydramine [From Benadryl] Adverse Reaction (Intermediate, Verified 06/28/24 12:57) Hallucinations Tobacco use date assessed: 06/28/24 Fall risk assessment: No Falls in past year Last assessed Fall Risk: 06/28/24 Dental Screening Dental Screen Date: 02/12/24 HPI [facility] 06/22 SBO,carotid stenosis HPI Details 89-year-old male with a history of seizures carotid artery stenosis essential hypertension GERD hypercholesterolemia coronary artery disease atrial fibrillation history of CVA and history of recurrent small-bowel obstruction. Last seen in February review of the notes was in the hospital in May has a history of small-bowel obstruction due to adhesions and the most recent 1 was in November 2023. Patient had abdominal pain and CT scan revealing dilated loops of small bowel. This resolved spontaneously after fluids. Patient also has followed up with the vascular surgeon for the history of carotid endarterectomy in March 2024 . Had left carotids in November and right carotids in March 18 with re-exploration for hematoma in February also. Patient is having ultrasound carotids every 3 months. [facility] Information Date of Discharge 06/22/24 Discharged From [facility] Interactive Contact Date (Reference documentation from this date) 06/24/24 [facility]LY [facility] Medical History CAD (coronary artery disease) Afib CVA (cerebral vascular accident) Self-catheterizes urinary bladder History of trigger finger Arthritis Preoperative cardiovascular examination Symptomatic stenosis of left carotid artery Rectal cancer Bladder neck contracture GERD (gastroesophageal reflux disease) Urinary incontinence Obstructive sleep apnea Coronary artery disease Type 2 diabetes mellitus with hyperglycemia Small bowel obstruction Erectile dysfunction Overweight (BMI 25.0-29.9) Peripheral vascular disease Prostate cancer Hematuria Constipation BPH (benign prostatic hyperplasia) Prostate cancer Colon cancer Dysuria Hyperlipidemia, unspecified Essential hypertension Surgical History (Updated 06/28/24 @ 13:30 by Pro Nunn MD) History of left-sided carotid endarterectomy History of coronary artery stent placement History of exploratory laparotomy History of carpal tunnel release History of prostate surgery (~2017) History of bladder surgery (~01/04/18) History of colectomy History of appendectomy Family History Father Pancreatic cancer Mother No problems noted. Brother Liver cancer Social History Household Members: Family Household Members Other:: Granddaughter Housing: House Are you a primary customer care coordinator to a significant other at home: No Do you presently have visiting nurse or other home services: No Alcohol intake: never Patient Tobacco Use Status: Former Tobacco user Tobacco use type: Cigarette e-Cigarette/Vaping Use: Never Used Second Hand Smoke Exposure: No Advance Directives Date on File: 09/29/20 service: No Current occupational status: retired Cognitive needs: Yes (cane) Hearing needs: Yes (hearing aide) Vision needs: Yes (glasses) Questionnaire Thrive Questionnaire Date Thrive assessed: 06/20/24 NALINI-7 AMB Questionnaire NALINI-7 Date NALINI - 7 assessed: 02/12/24 Source: Developed by Drs. Chaim Esclaera, Angy Pereira, Heriberto Wick and colleagues, with an educational marycarmen from [employer]. Physical exam (Primary Care) Vital Signs: Last Vital Signs Pulse 56 06/28/24 12:57 BP 100/68 06/28/24 12:57 Pulse Ox 100 06/28/24 12:57 Oxygen Delivery Method Room Air 06/28/24 12:57 BMI result Body Mass Index 22.8 Tobacco/Smoking Status: Tobacco use Status Tobacco use date assessed 06/28/24 06/28/24 13:03 Patient Tobacco Use Status Former Tobacco user 06/28/24 13:03 Tobacco use type Cigarette 06/28/24 13:03 e-Cigarette/Vaping Use Never Used 06/28/24 13:03 Thrive Assessment: Date of Thrive Assessment Date Thrive assessed 06/20/24 06/28/24 13:03 Const General: alert; No acute distress Eyes Conjunctivae: conjunctivae normal Resp Auscultation: clear to auscultation bilaterally Cardio Rate: regular rate Rhythm: regular rhythm GI Inspection: Yes normal to inspection Extrem General: Yes normal to inspection and No edema Immunizations pneumoc 20-edwin conj-dip cr(PF) 0.5 mL IM syringe Performing Provider: Pro Nunn MD Performing [place] [facility] Administered by: Aida Rodriguez CMA on 06/28/24 13:38 Dose Route Admin Location Dispensed Lot Number Expiration Date NDC [employer] Administrator 0.5 mL IM Left Deltoid 0.5 mL [id number] 06/30/25 9479-5833-07 [employer] VIS Given Date VIS Provided VIS Publication Date 06/28/24 Single Vaccine 21 Eligibility Eligibility Date Funding Source Not [facility] Eligible 06/28/24 Private Assessment and Plan Assessment & Plan (1) Bilateral carotid artery stenosis: Comment: 12/04/2023 left carotid endarterectomy, 03/18/2024 right carotid endarterectomy 03/19/2024 - right carotid re-exploration for hematoma Code(s): I65.23 - Occlusion and stenosis of bilateral carotid arteries Plan: Continue to follow-up with vascular surgeon and is on surveillance with carotid ultrasound. (2) Small bowel obstruction: Code(s): K56.609 - Unspecified intestinal obstruction, unspecified as to partial versus complete obstruction Plan: Continue supportive management. Keep well hydrated. (3) Afib: Code(s): I48.91 - Unspecified atrial fibrillation Plan: Continue with metoprolol 12.5 mg twice a day patient is on aspirin and clopidogrel. Orders: Orders Pneumococcal 20 Immunization Today Z23 - Encounter for immunization Medications: New pneumoc 20-edwin conj-dip cr(PF) 0.5 mL IM ONCE 0.5 mL 0RF Z23 - Encounter for immunization Coding Level of Care Code Est Pt Level 4 (11570) Diagnoses Bilateral carotid artery stenosis I65.23 Small bowel obstruction K56.609 Afib I48.91
[2024-06-28 12:57] VITALS: BP 100/68; PULSE 56; O2SAT 100; BMI 22.8
== END 2024-06-28 13:46 | disposition home or self-care (01) ==
PROVIDERS: PCP Internal Medicine; Visit Provider Internal Medicine
DX: I65.23 Occlusion and stenosis of bilateral carotid arteries (principal); K56.609 Unspecified intestinal obstruction, unspecified as to partial versus complete obstruction; I48.91 Unspecified atrial fibrillation; Z23 Encounter for immunization
CPT/HCPCS: 90471; 90677; 99495

== ENCOUNTER 2024-07-09 10:01 | Outpatient (REF) | payer MEDICARE, OTHER, SELFPAY ==
--- NOTE | ~2024-07-09 | US_ITS ---
EXAMINATION: US EXTRACRANIAL CAROTID DUPLEX, BILATERAL CLINICAL INFORMATION: Bilateral endarterectomy. Occlusion/carotid stenosis. COMPARISON: 03/04/2024 TECHNIQUE: Real-time ultrasound and Doppler techniques (integrating B-mode 2-D vascular images, Doppler spectral analysis and color-flow Doppler imaging) were utilized to interrogate the extracranial carotid arteries, the vertebral arteries and proximal subclavian arteries bilaterally. The degree of stenosis is determined by criteria similar to NASCET. FINDINGS: Right Side: 1. There is mild atherosclerotic plaque seen in the bifurcation/proximal ICA region. 2. The common carotid artery PSV proximally is 137 cm/s and distally 132 cm/s. 3. The proximal internal carotid artery velocities are 171 cm/s systolic and 49 cm/s diastolic. (Previously these values were 497/206.) 4. The proximal external carotid artery PSV is 161 cm/s. 5. The vertebral artery shows antegrade flow. 6. The subclavian artery waveforms are normal. Left Side: 1. There is mild atherosclerotic plaque seen in the bifurcation/proximal ICA region. 2. The common carotid artery PSV proximally is 138 cm/s and distally 107 cm/s. 3. The proximal internal carotid artery velocities are 184 cm/s systolic and 48 cm/s diastolic. (Previously these values were 243/61.) 4. The proximal external carotid artery PSV is 167 cm/s. 5. The vertebral artery shows antegrade flow. 6. The subclavian artery waveforms are normal. US/US carotid duplex BI IMPRESSION: 1. RIGHT: Moderate, hemodynamically significant stenosis of the proximal right internal carotid artery corresponding to a 50-79% stenosis by velocity criteria. 2. LEFT: Moderate, hemodynamically significant stenosis of the proximal left internal carotid artery corresponding to a 50-79% stenosis by velocity criteria. 3. Improvement in velocities on the right with similar category of disease, but with decreased velocities on the left. Electronically signed by: Jeffy Dubon MD 07/10/2024 04:10 PM EDT
== END 2024-07-09 10:02 | disposition home or self-care (01) ==
LOC: HO.US 10:01
PROVIDERS: PCP Internal Medicine; Visit Provider Surgery Vascular Surgery
DX: I65.23 Occlusion and stenosis of bilateral carotid arteries (principal)
CPT/HCPCS: 93880

== ENCOUNTER 2024-07-12 14:44 | Outpatient (AMB) | payer MEDICARE, OTHER, SELFPAY ==
--- NOTE | 2024-07-12 14:47 | MHC.OFFVIS ---
Vital Signs 07/12/24 14:48 Height 6 ft 2 in Weight 171 lb BMI 22.0 BP 120/62 Blood Pressure Location Lt brachial Pulse 60 Pulse Source Pulse Oximeter Intake Visit Reasons: 6 month follow up Allergies diphenhydramine [From Benadryl] Adverse Reaction (Intermediate, Verified 06/28/24 12:57) Hallucinations HPI Comments Details: 81-year-old male presents today for follow-up. He reports he has been doing well. The past he had postoperative atrial fibrillation. He had carotid surgery. He resumed his antiplatelet postop and has been doing well. He has some bruising but no bleeding concerns or excessive bruising. He denies any palpitations, shortness or breath, dizziness, syncope, palpitations, or chest discomforts. [facility] Medical History (Updated 06/30/24 @ 00:01 by Amy Aguirre) CAD (coronary artery disease) Afib CVA (cerebral vascular accident) Self-catheterizes urinary bladder History of trigger finger Arthritis Preoperative cardiovascular examination Symptomatic stenosis of left carotid artery Rectal cancer Bladder neck contracture GERD (gastroesophageal reflux disease) Urinary incontinence Obstructive sleep apnea Coronary artery disease Type 2 diabetes mellitus with hyperglycemia Small bowel obstruction Erectile dysfunction Overweight (BMI 25.0-29.9) Peripheral vascular disease Prostate cancer Hematuria Constipation BPH (benign prostatic hyperplasia) Prostate cancer Colon cancer Dysuria Hyperlipidemia, unspecified Essential hypertension Surgical History (Updated 06/28/24 @ 13:30 by Pro Nunn MD) History of left-sided carotid endarterectomy History of coronary artery stent placement History of exploratory laparotomy History of carpal tunnel release History of prostate surgery (~2016) History of bladder surgery (~01/04/18) History of colectomy History of appendectomy Family History Father Pancreatic cancer Mother No problems noted. Brother Liver cancer Social History Household Members: Family Household Members Other:: Granddaughter Housing: House Are you a primary healthcare insurance sales agent to a significant other at home: No Do you presently have visiting nurse or other home services: No Alcohol intake: never Patient Tobacco Use Status: Former Tobacco user Tobacco use type: Cigarette e-Cigarette/Vaping Use: Never Used Second Hand Smoke Exposure: No Advance Directives Date on File: 09/29/20 service: No Current occupational status: retired Cognitive needs: Yes (cane) Hearing needs: Yes (hearing aide) Vision needs: Yes (glasses) Review of Systems Const Denies weakness ENT Denies dizziness Card Denies chest pain, Denies chest pain with activity, Denies syncope, Denies rapid heart rate, Denies pedal edema, Denies edema, Denies leg edema, Denies lightheadedness, Denies palpitations, Denies dyspnea, Denies dyspnea on exertion and Denies orthopnea Resp Denies cough, Denies dyspnea and Denies dyspnea on exertion GI Denies hematochezia and Denies change in stool character Musc Denies abnormal gait, Denies muscle cramps, Denies muscle weakness, Denies numbness, Denies radiating pain into limb and Denies tingling Neuro Denies abnormal gait, Denies dizziness, Denies syncope, Denies numbness, Denies tingling and Denies weakness Endo Denies palpitations Physical Exam Vital Signs: Last Vital Signs Pulse 60 07/12/24 14:48 BP 120/62 07/12/24 14:48 BMI result Body Mass Index 22.0 Assessment & Plan Assessment & Plan (1) CAD (coronary artery disease): Code(s): I25.10 - Atherosclerotic heart disease of [place] coronary artery without angina pectoris Category: Medical Plan: Had a drug-eluting stent in 11/18/2023. He is on Plavix, aspirin 81 mg, atorvastatin. Last LDL was in February 2024 with the results of 50. (2) Afib: Code(s): I48.91 - Unspecified atrial fibrillation Category: Medical Plan: Had postoperative atrial fibrillation. He was on amiodarone which has been discontinued due to bradycardic he had a heart rate of 47 back in 01/17/2024. He had a Holter monitor back in 01/17/2024 which showed normal sinus rhythm. (3) Essential hypertension: Code(s): I10 - Essential (primary) hypertension Category: Medical Plan: Blood pressure stable on amlodipine 7.5 mg. Coding Level of Care Code Est Pt Level 4 (64783) Diagnoses CAD (coronary artery disease) I25.10 Afib I48.91 Essential hypertension I10
[2024-07-12 14:48] VITALS: BP 120/62; PULSE 60; BMI 22.0
== END 2024-07-12 15:06 | disposition home or self-care (01) ==
PROVIDERS: PCP Internal Medicine; Visit Provider Nurse Practitioner
DX: I25.10 Atherosclerotic heart disease of native coronary artery without angina pectoris (principal); I48.91 Unspecified atrial fibrillation; I10 Essential (primary) hypertension
CPT/HCPCS: 99214

== ENCOUNTER → 2024-07-12 14:44 | Outpatient (BNVA) | payer MEDICARE, OTHER, SELFPAY | PROVIDERS: PCP Internal Medicine; Visit Provider Nurse Practitioner | DX: I48.91 Unspecified atrial fibrillation (principal); I25.10 Atherosclerotic heart disease of native coronary artery without angina pectoris; I10 Essential (primary) hypertension | CPT/HCPCS: 99212 ==

== ENCOUNTER 2024-08-01 13:02 | Outpatient (AMB) | payer MEDICARE, OTHER, SELFPAY ==
--- NOTE | 2024-08-01 13:06 | A.OFFVIS_ITS ---
Vital Signs 08/01/24 13:07 08/01/24 13:13 Height 6 ft 2 in Weight 171 lb BMI 22.0 BP 80/40 L 100/58 L Blood Pressure Location Lt brachial Rt femoral Position Sitting Sitting Intake Visit Reasons: 3m follow up s/p carotid US 07/09/24 Intake Note: 3 mo follow up carotid US 07/09/24 w/ Hx of Right CEA 04/01/24. Pt states some numbness still, but feeling good. Accompanied by: Self / Same As Patient Allergies diphenhydramine [From Benadryl] Adverse Reaction (Intermediate, Verified 08/01/24 13:10) Hallucinations HPI HPI 3m follow up s/p carotid US 07/09/24: Details: Very pleasant 89-year-old gentleman presents for routine carotid surveillance follow-up. He had his right carotid done back in February. Unfortunately he had to be re-explored for hematoma. He is doing relatively well after all of this. No interval issues. He remains quite active in his ambulating with a cane. He is currently being maintained on aspirin Plavix and statin. Now presents for follow-up with noninvasive testing. [facility] Medical History CAD (coronary artery disease) Afib CVA (cerebral vascular accident) Self-catheterizes urinary bladder History of trigger finger Arthritis Preoperative cardiovascular examination Symptomatic stenosis of left carotid artery Rectal cancer Bladder neck contracture GERD (gastroesophageal reflux disease) Urinary incontinence Obstructive sleep apnea Coronary artery disease Type 2 diabetes mellitus with hyperglycemia Small bowel obstruction Erectile dysfunction Overweight (BMI 25.0-29.9) Peripheral vascular disease Prostate cancer Hematuria Constipation BPH (benign prostatic hyperplasia) Prostate cancer Colon cancer Dysuria Hyperlipidemia, unspecified Essential hypertension Surgical History History of left-sided carotid endarterectomy History of coronary artery stent placement History of exploratory laparotomy History of carpal tunnel release History of prostate surgery (~2016) History of bladder surgery (~01/04/18) History of colectomy History of appendectomy Family History Father Pancreatic cancer Mother No problems noted. Brother Liver cancer Social History Household Members: Family Household Members Other:: Granddaughter Housing: House Are you a primary healthcare network consultant to a significant other at home: No Do you presently have visiting nurse or other home services: No Alcohol intake: never Patient Tobacco Use Status: Former Tobacco user Tobacco use type: Cigarette e-Cigarette/Vaping Use: Never Used Second Hand Smoke Exposure: No Advance Directives Date on File: 09/29/20 service: No Current occupational status: retired Cognitive needs: Yes (cane) Hearing needs: Yes (hearing aide) Vision needs: Yes (glasses) Review of Systems Const All systems reviewed & are unremarkable except as noted in HPI and below Reports no additional complaints ENT Reports Normal hearing present Card Denies chest pain, Denies chest pain at rest, Denies chest pain with activity and Denies pedal edema Resp Denies cough GI Denies abdominal pain Musc Denies abnormal gait, Denies muscle cramps and Denies radiating pain into limb Skin/Breast Denies skin ulcer and Denies wounds Neuro Reports Normal hearing present and Denies abnormal gait Psych Reports no additional complaints Physical Exam Vital Signs: Last Vital Signs BP 100/58 L 08/01/24 13:13 BMI result Body Mass Index 22.0 Const General: cooperative, healthy appearing and comfortable Orientation/consciousness: oriented to person, oriented to place and oriented to time HEENT Head: Yes normal to inspection Neck Neck: Yes normal visual inspection Carotids: no bruits Chest Chest palpation & inspection: normal inspection of the chest Resp Effort & Inspection: normal respiratory effort and able to speak in complete sentences Auscultation: clear to auscultation bilaterally, no crackles, no rales, no rhonchi and no wheezes Cardio Rate: regular rate Rhythm: regular rhythm Heart sounds: S1 normal heart sound present and S2 normal heart sound present Bruits: no carotid bruits Peripheral pulses: Peripheral pulses 2+ throughout GI Inspection: Yes normal to inspection Skin Other: Right neck incision well healed slightly raised. Wounds: no wounds Hair: normal Neuro General: oriented to person, oriented to place and oriented to time Cranial nerves: Yes CN's II-XII intact bilaterally and Yes Normal hearing present Cognition (Neuro): normal cognition Motor exam (neuro): 5/5 motor strength present throughout Extrem Other: venous exam: No significant superficial varicosities or spider telangiectasias, minimal edema General: No clubbing, No cyanosis and No edema Psych Appearance: grossly normal Mental Status: mental status grossly normal Speech and movement: Normal speech and movement present Results Reviewed Results Reviewed: Noninvasive testing dated 07/09/2024 demonstrates bilateral 50-69% with peak systolic on the right of 171 and on the left of 184. I do believe that this may be just a slight over estimation and may be on the lower end of that since they are both post endarterectomy ultrasounds. Assessment & Plan Assessment & Plan (1) Bilateral carotid artery stenosis: Comment: 12/04/2023 left carotid endarterectomy, 03/18/2024 right carotid endarterectomy 03/19/2024 - right carotid re-exploration for hematoma Code(s): I65.23 - Occlusion and stenosis of bilateral carotid arteries Category: Medical Plan: In short patient is doing well status post bilateral carotid endarterectomy. We have reviewed signs and symptoms of a stroke. We also discussed risk factor modification inclusive a healthy diet low in cholesterol. The patient will follow up with us with surveillance ultrasound of the carotids six-month. Should there be any changes or signs or symptoms of a stroke we will be happy to see them back sooner. Thank you for allowing us to participate in this patient's care. If there are any questions or concerns please do not hesitate to contact us. Please note a longitudinal relationship has been created with the patient and we have been following and surveillance this chronic condition. Orders: Orders US carotid duplex BI 6 Months I65.23 - Occlusion and stenosis of bilateral carotid arteries Coding Level of Care Code Est Pt Level 4 (98630) Complex EM visit Add On G2211 Diagnoses Bilateral carotid artery stenosis I65.23
[2024-08-01 13:07] VITALS: BP 80/40; BMI 22.0
[2024-08-01 13:13] VITALS: BP 100/58
== END 2024-08-01 13:27 | disposition home or self-care (01) ==
PROVIDERS: PCP Internal Medicine; Visit Provider Surgery Vascular Surgery
DX: I65.23 Occlusion and stenosis of bilateral carotid arteries (principal)
CPT/HCPCS: 99214; G2211

== ENCOUNTER → 2024-08-01 13:02 | Outpatient (BNVA) | payer MEDICARE, OTHER, SELFPAY | PROVIDERS: PCP Internal Medicine; Visit Provider Surgery Vascular Surgery | DX: I65.23 Occlusion and stenosis of bilateral carotid arteries (principal); Z79.01 Long term (current) use of anticoagulants; Z79.899 Other long term (current) drug therapy; Z79.82 Long term (current) use of aspirin | CPT/HCPCS: 99212 ==

== ENCOUNTER 2024-08-22 09:46 | Outpatient (AMB) | payer MEDICARE, OTHER, SELFPAY ==
--- NOTE | 2024-08-22 09:52 | MHC.OFFVIS ---
Intake Visit Reasons: 6m follow up Intake Note: Patient is Present for Follow Up Urinalysis Urology Medication: None Antibiotic Allergies:None Blood Thinners: Aspirin, Clopidogrel Allergies diphenhydramine [From Benadryl] Adverse Reaction (Intermediate, Verified 08/01/24 13:10) Hallucinations HPI Comments Details: Geoffrey is a pleasant male. He is a patient of Dr. Nunn. He is seen for the following urologic conditions - prostate cancer - bladder neck contraction Six-month follow-up Using coude every 5 days for bladder neck dilatation Occasionally does have issues when does not line up catheter Will expect him to require catheterization for the foreseeable future to maintain bladder emptying and open bladder neck Prostate cancer Treatment with radiation 1999 Radiation cystitis with bladder neck contracture Catheter every 5-6 days keeping bladder neck open PSA 03/19 <0.1, 03/20 <0.1, 08/21 <0.1 Bladder neck stricture Multiple UTIs with persistent incomplete emptying - Enterococcus faecalis Levaquin sensitive Secondary to radiation for prostate cancer in 1999 Bladder neck incision 2018, 12/21 Repeat bladder neck incision September 2020 [facility] Medical History CAD (coronary artery disease) Afib CVA (cerebral vascular accident) Self-catheterizes urinary bladder History of trigger finger Arthritis Preoperative cardiovascular examination Symptomatic stenosis of left carotid artery Rectal cancer Bladder neck contracture GERD (gastroesophageal reflux disease) Urinary incontinence Obstructive sleep apnea Coronary artery disease Type 2 diabetes mellitus with hyperglycemia Small bowel obstruction Erectile dysfunction Overweight (BMI 25.0-29.9) Peripheral vascular disease Prostate cancer Hematuria Constipation BPH (benign prostatic hyperplasia) Prostate cancer Colon cancer Dysuria Hyperlipidemia, unspecified Essential hypertension Surgical History History of left-sided carotid endarterectomy History of coronary artery stent placement History of exploratory laparotomy History of carpal tunnel release History of prostate surgery (~2016) History of bladder surgery (~01/04/18) History of colectomy History of appendectomy Family History Father Pancreatic cancer Mother No problems noted. Brother Liver cancer Social History Household Members: Family Household Members Other:: Granddaughter Housing: House Are you a primary care consultant to a significant other at home: No Do you presently have visiting nurse or other home services: No Alcohol intake: never Patient Tobacco Use Status: Former Tobacco user Tobacco use type: Cigarette e-Cigarette/Vaping Use: Never Used Second Hand Smoke Exposure: No Advance Directives Date on File: 09/29/20 service: No Current occupational status: retired Cognitive needs: Yes (cane) Hearing needs: Yes (hearing aide) Vision needs: Yes (glasses) Review of Systems Const Denies chills and Denies fever(s) Card Reports no additional complaints and Denies syncope Resp Denies cough GI Denies abdominal pain and Denies heartburn Reports as per HPI and Denies change in libido Neuro Denies syncope Psych Denies change in libido Endo Denies change in libido Physical Exam Const General: cooperative, healthy appearing, comfortable and no acute distress Orientation/consciousness: patient oriented x3 HEENT Face and sinus: Yes normal facial exam Mouth: moist mucous membranes Neck Neck: Yes normal visual inspection, Yes full ROM and Yes trachea midline Chest Chest palpation & inspection: normal inspection of the chest Resp Effort & Inspection: normal respiratory effort, able to speak in complete sentences and no respiratory distress GI Inspection: Yes normal to inspection Back/Spine/Pelvis Cervical Spine: normal cervical lordosis Thoracic/Lumbar Spine: thoracic and lumbar spine normal to inspection Skin General skin exam: no rashes or lesions noted Neuro General: patient oriented x3, gait normal, tone normal and moves all extremities Extrem General: Yes normal to inspection and Yes capillary refill normal Results AMB Urinalysis, Automated UA Leukoctes 0 Ellie/uL Last Edit by JOSTIN Martines on 08/22/24 10:01 UA Nitrite Negative Last Edit by JOSTIN Martines on 08/22/24 10:01 UA Urobilinogen 0.2 mg/dL Last Edit by JOSTIN Martines on 08/22/24 10:01 UA Protein 15 mg/dL Last Edit by JOSTIN Martines on 08/22/24 10:01 UA pH 6.0 Last Edit by JOSTIN Martines on 08/22/24 10:01 UA Blood 0 Chase/uL Last Edit by JOSTIN Martines on 08/22/24 10:01 UA Specific [place] 1.025 Last Edit by Tiffany Brisenoro, RMA on 08/22/24 10:01 UA Ketone Negative Last Edit by Tiffany Goff, RMA on 08/22/24 10:01 UA Bilirubin 0 mg/dL Last Edit by Tiffany Goff, RMA on 08/22/24 10:01 UA Glucose 0 mg/dL Last Edit by Tiffany Brisenoro, RMA on 08/22/24 10:01 Results Reviewed Results Reviewed: Laboratory Last Values Urine pH (Auto) 6.0 08/22/24 10:01 Specific [place] (Auto) 1.025 08/22/24 10:01 Urine Protein (Auto) 15 mg/dL 08/22/24 10:01 Glucose (UA)(Auto) 0 mg/dL 08/22/24 10:01 Urine Ketones (Auto) Negative 08/22/24 10:01 Urine Blood (Auto) 0 Chase/uL 08/22/24 10:01 Urine Nitrite (Auto) Negative 08/22/24 10:01 Urine Bilirubin (Auto) 0 mg/dL 08/22/24 10:01 Urine Urobilinogen (Auto) 0.2 mg/dL 08/22/24 10:01 Leukocyte Esterase (Auto) 0 Ellie/uL 08/22/24 10:01 Assessment & Plan Assessment & Plan (1) Bladder neck stricture: Comment: status post incision bladder neck contracture with laser, cystoscopy Dr. Hein September 2020 Code(s): N32.0 - Bladder-neck obstruction Category: Medical (2) Chronic UTI (urinary tract infection): Code(s): N39.0 - Urinary tract infection, site not specified Category: Medical Plan Six-month follow-up Orders: Orders AMB Urinalysis Automated Today Z13.9 - Encounter for screening, unspecified Patient Instructions: Imaging studies, laboratory and physical exam results were discussed and reviewed in detail. No major barriers to patient understanding were identified. An opportunity to ask questions regarding the treatment plan was provided. All questions were answered. The patient expressed understanding and agreement with the above treatment plan. The patient is aware they should contact our office by phone for worsening of their current condition or the appearance of new urologic symptoms. Compliance is encouraged with any medications and followup testing that is ordered. It is a privilege to participate in the urologic care of your patient. If you have any questions or concerns regarding treatment for the above conditions, or other urologic issues, please do not hesitate to contact me. The office telephone contact is [phone]. This note is constructed using voice recognition software. While every effort has been made to ensure accuracy fisher terrapin errors may have been included. Yours sincerely, Dr Jerman Hein MD, [facility] - Urology Providers of Expert, Compassionate Care for the Genitourinary System Coding Level of Care Code Est Pt Level 3 (12173) Diagnoses Bladder neck stricture N32.0 Chronic UTI (urinary tract infection) N39.0
== END 2024-08-22 10:10 | disposition home or self-care (01) ==
PROVIDERS: PCP Internal Medicine; Visit Provider Urology
DX: N32.0 Bladder-neck obstruction (principal); N39.0 Urinary tract infection, site not specified; Z13.9 Encounter for screening, unspecified
CPT/HCPCS: 99213

== ENCOUNTER → 2024-08-22 09:46 | Outpatient (BNVA) | payer MEDICARE, OTHER, SELFPAY | PROVIDERS: PCP Internal Medicine; Visit Provider Urology | DX: N32.0 Bladder-neck obstruction (principal); N39.0 Urinary tract infection, site not specified; Z85.46 Personal history of malignant neoplasm of prostate | CPT/HCPCS: 81003; 99212 ==

== ENCOUNTER 2024-08-31 07:38 | Inpatient (IN) | payer MEDICARE, OTHER, SELFPAY ==
[2024-08-31] VITALS (8 sets, daily range): BP systolic 120–176; BP diastolic 51–82; PULSE 71–91; RESP 16–20; TEMP 36.6–36.8; O2SAT 93–99; BMI 23.6
--- NOTE | ~2024-08-31 | CT_ITS ---
EXAMINATION: CT ABDOMEN AND PELVIS WITH CONTRAST CLINICAL INFORMATION: Abdominal pain, distention COMPARISON: 06/19/2024 TECHNIQUE: Multidetector volumetric images were obtained from the superior aspect of the liver through the pubic symphysis following administration 85 mL of Omnipaque 350 intravenous contrast. Sagittal and coronal reformatted images were obtained on the technologist's workstation. Oral contrast: No This CT examination was performed using dose optimization techniques as appropriate, variously including the following: *Automated exposure control *Adjustment of mA and/or kV according to patient size (this includes techniques or standardized protocols for targeted exams where dose is matched to indication/reason for exam; i.e. extremities or head) *Use of iterative reconstruction technique DLP: 577 mGy-cm FINDINGS: LUNG BASES: Calcified pleural plaques seen in the right hemidiaphragm. LIVER, GALLBLADDER, AND BILIARY TREE: The liver is normal in size, shape, and attenuation. No focal hepatic lesion or biliary ductal dilatation is present. The gallbladder is unremarkable with no evidence of radiopaque gallstones, gallbladder wall thickening, or obvious pericholecystic inflammatory changes. PANCREAS: Unremarkable. SPLEEN: Unremarkable. ADRENAL GLANDS: Unremarkable. KIDNEYS AND URETERS: The kidneys are normal in size, shape, and attenuation. No hydronephrosis, hydroureter, or calculi seen. No perinephric stranding. Stable 4.3 cm simple cyst and a subcentimeter cyst in the right kidney. No follow-up indicated. BLADDER: Unremarkable. GASTROINTESTINAL TRACT: Dilated small bowel loops seen in the right abdomen with focal transition point in the right pelvis, distal ileum best seen on image 64, series 3 consistent with small bowel obstruction. Associated edema seen in the adjacent mesentery. The distal small bowel loops are decompressed. There is residual stool and air seen throughout the colon . Anastomosis again seen at the rectosigmoid colon ABDOMINAL WALL: Small fat-containing left inguinal hernia LYMPH NODES: Normal. VASCULAR: Abdominal aorta is normal in caliber. Diffuse atherosclerotic wall calcification seen in the abdominal aorta, bilateral iliac and visualized femoral arteries PELVIC VISCERA: Unremarkable. OSSEOUS STRUCTURES: Chronic degenerative changes CT/CT abdomen pelvis w IV con IMPRESSION: 1. Small bowel obstruction with transition point in the right pelvis, distal ileum. Associated edema seen in the adjacent mesentery. 2. Stable right renal cysts. No follow-up indicated. 3. Calcified pleural plaques in the right hemidiaphragm. 4. Diffuse atherosclerotic disease. Electronically signed by: Stephen Castanon MD 08/31/2024 11:37 AM EDT
--- NOTE | ~2024-08-31 | XR_ITS ---
EXAMINATION: XR ABDOMEN KUB CLINICAL INDICATION: Follow-up small bowel obstruction COMPARISON: X-ray dated February 17, 2023. Correlated to CT dated August 31, 2024. TECHNIQUE: AP view of the abdomen. FINDINGS: Contrast within the right hemicolon. No air-fluid levels. No dilated small or large intestine. Multilevel thoracolumbar spondylosis. Osteopenia versus osteoporosis. Pulmonary reticular pattern. XR/XR KUB IMPRESSION: No intestinal obstruction pattern. Electronically signed by: Corona Miranda MD 09/02/2024 10:27 AM [facility]
--- NOTE | 2024-08-31 08:01 | ED_ITS ---
HPI - Abdominal Pain General Chief Complaint: Abdominal Pain Stated Complaint: ABD PAIN SINCE MIDNIGHT PER EMS Time Seen by Provider: 08/31/24 08:01 Source: patient Mode of arrival: EMS Limitations: no limitations History of Present Illness ED Provider: Dr. Abel Pozo HPI narrative: 89-year-old male with a history of hyperlipidemia, atrial fibrillation, coronary artery disease, stroke, seizures, chronic UTI, hypertension, GERD, multiple small bowel obstructions who presents emergency department for evaluation of abdominal bloating and pain patient states that he had a gradual onset of abdominal pain at around midnight. He states the pain got progressively worse and he felt bloated. States the pain is now a constant, sharp pain which is greater than 10/10 in intensity. Patient denied nausea or vomiting. He states that he was last normal bowel movement was 08/28/2024 (3 days prior to arrival). Patient states he has had similar pain in the past due to bowel obstructions. Patient was last admitted for small-bowel obstruction on 06/20/2024 until 06/22/2024. Surgical notes the patient was treated conservatively, he had no NG tube , he received antiemetics, pain medications and IV fluid with resolution of his symptoms. The patient states that he was admitted overnight to [facility] 08/28/2024 for a fall but he can not give me any details about this admission Review of systems was negative for fever, chills, rhinorrhea, sore throat, cough, chest pain, shortness of breath, nausea, vomiting, diarrhea, dysuria. Related Data Home Medications ?Medication ?Instructions ?Recorded ?Confirmed aspirin 81 mg tablet,delayed 81 mg PO DAILY 12/01/22 06/24/24 release cyanocobalamin (vitamin B-12) 1,000 mcg PO DAILY 12/01/22 06/24/24 1,000 mcg tablet docusate sodium 100 mg capsule 100 mg PO DAILY PRN Constipation 01/12/24 06/24/24 metoprolol tartrate 25 mg tablet 12.5 mg PO .QD 06/28/24 06/28/24 Previous Rx's ?Medication ?Instructions ?Recorded lactulose 10 gram/15 mL oral 30 ml PO DAILY PRN for 10/17/23 solution constipation #946 mL rosuvastatin 10 mg tablet 10 mg PO DAILY #90 tabs 01/08/24 clopidogrel 75 mg tablet 75 mg PO DAILY #90 tabs 03/06/24 levetiracetam 250 mg tablet 250 mg PO BID 90 days #180 tabs 07/05/24 amlodipine 2.5 mg tablet 7.5 mg (3 x 2.5 mg) PO BEDTIME 07/24/24 #270 tabs Allergies Allergy/AdvReac Type Severity Reaction Status Date / Time diphenhydramine AdvReac Intermediate Hallucinati Verified 08/31/24 08:02 [From Benadryl] ons Review of Systems Review of Systems Yes all other systems are reviewed and are negative COUNT INCLUDES THE [facility] Past Medical History COUNT INCLUDES THE [facility] Narrative: Social history: He lives with his granddaughter. He denies tobacco, alcohol and drug use. Medical History CAD (coronary artery disease) Afib CVA (cerebral vascular accident) Self-catheterizes urinary bladder History of trigger finger Arthritis Preoperative cardiovascular examination Symptomatic stenosis of left carotid artery Rectal cancer Bladder neck contracture GERD (gastroesophageal reflux disease) Urinary incontinence Obstructive sleep apnea Coronary artery disease Type 2 diabetes mellitus with hyperglycemia Small bowel obstruction Erectile dysfunction Overweight (BMI 25.0-29.9) Peripheral vascular disease Prostate cancer Hematuria Constipation BPH (benign prostatic hyperplasia) Prostate cancer Colon cancer Dysuria Hyperlipidemia, unspecified Essential hypertension Surgical History History of left-sided carotid endarterectomy History of coronary artery stent placement History of exploratory laparotomy History of carpal tunnel release History of prostate surgery (~2016) History of bladder surgery (~01/04/18) History of colectomy History of appendectomy Family History Family History Father Pancreatic cancer Mother No problems noted. Brother Liver cancer Social History Social History Household Members: Family Household Members Other:: Granddaughter Housing: House Are you a primary health care attorney to a significant other at home: No Do you presently have visiting nurse or other home services: No Alcohol intake: never Patient Tobacco Use Status: Former Tobacco user Tobacco use type: Cigarette Smoked in Last 30 Days: No e-Cigarette/Vaping Use: Never Used Second Hand Smoke Exposure: No Use of substances other than those prescribed or required for medical reasons: No Advance Directives: Yes Advance Directives on File: Yes Advance Directives Date on File: 09/29/20 Do you have a plan to hurt others: No Plan service: No Current occupational status: retired Cognitive needs: Yes (cane) Hearing needs: Yes (hearing aide) Vision needs: Yes (glasses) Physical Exam ED Vital Signs: Vital Signs - 24 hr 08/31/24 08:00 08/31/24 08:31 08/31/24 11:22 Temperature 97.9 F 97.9 F Pulse Rate 74 71 76 Respiratory Rate 20 20 Blood Pressure 135/66 122/58 L Pulse Oximetry 99 98 Oxygen Delivery Method Room Air Room Air BMI result Body Mass Index 23.6 Exam: General: Awake, alert, appears to be in distress secondary to his pain Head: Normocephalic, atraumatic EENT: PERRL, Lids normal, sclera normal, conjunctiva normal, nose normal , ears normal, throat without erythema or exudates Neck: Supple, no adenopathy Lung: breath sounds symmetric, no wheezing, rales or rhonchi Chest: symmetric movement, nontender Heart: regular rate and rhythm, normal S1, S2 no murmurs or rubs Abdomen: Distended, high-pitched bowel sounds, diffuse abdominal tenderness with voluntary guarding but no involuntary guarding or rebound Back: no vertebral tenderness, no CVAT Extremities: no deformities, moves all extremities symmetrically Neuro: Awake, alert, oriented, normal speech, cranial nerves intact, moves all extremities symmetrically Psych: Pleasant, cooperative Medical Decision Making Medical Decision Making MDM Narrative: 89-year-old male with a history of hyperlipidemia, atrial fibrillation, coronary artery disease, stroke, seizures, chronic UTI, hypertension, GERD, multiple small bowel obstructions who presents emergency department for evaluation of abdominal bloating and pain greater than 10/10 with symptoms beginning at midnight and getting progressively worse. Patient states that symptoms are similar to his previous small-bowel obstructions. Patient's last normal bowel movement was 3 days prior. He denied fever, chills, nausea, vomiting. Patient was hospitalized here for small bowel obstruction on 06/20/2024 until 06/22/2024 and was managed conservatively and did not require surgical intervention. Physical examination did reveal abdominal distention, high pitch bowel sounds and diffuse abdominal tenderness. Differential diagnosis: ?Includes but is not limited to small-bowel obstruction, large bowel obstruction, gastritis, pancreatitis, electrolyte abnormalities, anemia Following evaluation was ordered: CBC, CMP, lactic acid, lipase, magnesium, PTT, COVID-19, urinalysis influenza, RSV, COVID-19, CT scan of the abdomen pelvis with IV and oral contrast Patient was initially treated with the following: IV insert, cardiac monitoring, O2 saturation monitoring, Normal saline x1 L, morphine 4 mg IV, Zofran 4 mg IV Course: 13:03 Patient did get improvement he was abdominal pain with the above treatment your to required a 2nd dose of morphine 4 mg IV. My interpretation patient's laboratory evaluation is as follows: WBC elevated 12,000 with left shift 75 neutrophils no bands. H&H was normal 13.7 and 41.1. PTT was normal. Elevated chloride 110. Low bicarb 21. Elevated BUN 18 with a normal creatinine of 0.81. Elevated glucose 124. LFTs and lipase. COVID-19, RSV and influenza were negative. CT scan abdomen pelvis with IV and oral contrast revealed the following: ?Small bowel obstruction with transition point in the right pelvis, distal ileum.Associated edema seen in the adjacent mesentery ?. I did discuss the patient's presentation findings over tiger text with the covering surgeon, Dr. Cat and he will evaluate the patient here in the emergency department Admission/Observation Consideration of admission/observation: Escalation of care including admission/observation considered (Yes) Consult Healthcare Provider Management of the patient was discussed with: [employer] Analyst Lab Data MDM Lab Attestation statement: I reviewed the patient's lab results. 08/31/24 08:16 08/31/24 08:16 Labs: Lab Results 08/31/24 08/31/24 08/31/24 Range/Units 08:15 08:16 08:27 WBC 12.0 H (4.8-10.8) X10*3/uL RBC 5.24 (4.60-5.80) X10*6/uL Hgb 13.7 L (14.0-18.0) g/dl Hct 41.1 L (42.0-52.0) % MCV 78.4 L (80.0-98.0) fL MCH 26.1 L (27.0-33.0) pg MCHC 33.3 (31.0-36.0) g/dl RDW 16.9 H (11.0-16.0) % Plt Count 268 (160-400) X10*3/uL MPV 9.7 (9.4-12.4) fL Immature Gran % (Auto) 0.3 (0.0-0.4) % Neut % (Auto) 75.0 H (45-73) % Lymph % (Auto) 16.5 L (20-40) % [place] % (Auto) 5.5 (2-11) % Eos % (Auto) 2.4 (0-4) % Baso % (Auto) 0.3 (0-2) % Lymph # (Auto) 2.0 (1.2-4.9) X10*3/uL [place] # (Auto) 0.7 (0.1-1.2) X10*3/uL Eos # (Auto) 0.3 (0.0-0.4) X10*3/uL Baso # (Auto) 0.0 (0.0-0.2) X10*3/uL Abs Immat Gran (auto) 0.03 (0.00-0.03) X10*3/uL Absolute Neuts (auto) 9.0 H (2.0-8.3) x10*3/uL Absolute Nucleated RBC 0.000 (0.0-0.012) X10*3/uL Nucleated RBC % (auto) 0.0 (0.0-0.2) /100WBC APTT 35.3 (26.0-36.8) SEC Sodium 140 (135-145) mmol/L Potassium 4.3 (3.3-5.1) mmol/L Chloride 110 H (96-108) mmol/L Carbon Dioxide 21 L (22-29) mmol/L Anion Gap 13 (12-20) BUN 18 H (9-16) mg/dL Creatinine 0.81 (0.5-1.4) mg/dL Estim Creat Clear Calc 73.2 Estimated GFR > 60 Random Glucose 124 H (60-115) mg/dL Lactic Acid 1.5 (0.5-2.0) mmol/L Calcium 9.5 (8.4-10.2) mg/dL Magnesium 2.3 (1.6-2.6) mg/dL Total Bilirubin 0.5 (0.0-1.0) mg/dL AST 20 (5-37) U/L ALT 15 (0-40) U/L Alkaline Phosphatase 84 (39-117) U/L Total Protein 6.8 (6.5-8.0) g/dL Albumin 4.0 (3.5-5.0) g/dL Lipase 10 (8-78) U/L Urine Color Urine Appearance Urine pH (5.0-9.0) Ur Specific [place] (1.005-1.025) Urine Protein (Neg-Trace) mg/dL Urine Glucose (UA) (Negative) mg/dL Urine Ketones (Negative) mg/dL Urine Blood (Negative) Urine Nitrite (Negative) Ur Leukocyte Esterase (Negative) Influenza Type A (PCR) NEGATIVE (Negative) Influenza Type B (PCR) NEGATIVE (Negative) RSV RNA Qual (PCR) NEGATIVE (Negative) SARS-CoV-2 RNA (RT-PCR) NEGATIVE (Negative) 08/31/24 Range/Units 11:27 WBC (4.8-10.8) X10*3/uL RBC (4.60-5.80) X10*6/uL Hgb (14.0-18.0) g/dl Hct (42.0-52.0) % MCV (80.0-98.0) fL MCH (27.0-33.0) pg MCHC (31.0-36.0) g/dl RDW (11.0-16.0) % Plt Count (160-400) X10*3/uL MPV (9.4-12.4) fL Immature Gran % (Auto) (0.0-0.4) % Neut % (Auto) (45-73) % Lymph % (Auto) (20-40) % [place] % (Auto) (2-11) % Eos % (Auto) (0-4) % Baso % (Auto) (0-2) % Lymph # (Auto) (1.2-4.9) X10*3/uL [place] # (Auto) (0.1-1.2) X10*3/uL Eos # (Auto) (0.0-0.4) X10*3/uL Baso # (Auto) (0.0-0.2) X10*3/uL Abs Immat Gran (auto) (0.00-0.03) X10*3/uL Absolute Neuts (auto) (2.0-8.3) x10*3/uL Absolute Nucleated RBC (0.0-0.012) X10*3/uL Nucleated RBC % (auto) (0.0-0.2) /100WBC APTT (26.0-36.8) SEC Sodium (135-145) mmol/L Potassium (3.3-5.1) mmol/L Chloride (96-108) mmol/L Carbon Dioxide (22-29) mmol/L Anion Gap (12-20) BUN (9-16) mg/dL Creatinine (0.5-1.4) mg/dL Estim Creat Clear Calc Estimated GFR Random Glucose (60-115) mg/dL Lactic Acid (0.5-2.0) mmol/L Calcium (8.4-10.2) mg/dL Magnesium (1.6-2.6) mg/dL Total Bilirubin (0.0-1.0) mg/dL AST (5-37) U/L ALT (0-40) U/L Alkaline Phosphatase (39-117) U/L Total Protein (6.5-8.0) g/dL Albumin (3.5-5.0) g/dL Lipase (8-78) U/L Urine Color Yellow Urine Appearance Clear Urine pH 6.0 (5.0-9.0) Ur Specific [place] 1.025 (1.005-1.025) Urine Protein Negative (Neg-Trace) mg/dL Urine Glucose (UA) Negative (Negative) mg/dL Urine Ketones Negative (Negative) mg/dL Urine Blood Negative (Negative) Urine Nitrite Negative (Negative) Ur Leukocyte Esterase Negative (Negative) Influenza Type A (PCR) (Negative) Influenza Type B (PCR) (Negative) RSV RNA Qual (PCR) (Negative) SARS-CoV-2 RNA (RT-PCR) (Negative) Radiology Impression Discussion of test interpretation with radiology: I have reviewed the radiologist's reading. Radiologist Impression: CT abdomen pelvis w oral and IV con IMPRESSION: 1. Small bowel obstruction with transition point in the right pelvis, distal ileum. Associated edema seen in the adjacent mesentery. 2. Stable right renal cysts. No follow-up indicated. 3. Calcified pleural plaques in the right hemidiaphragm. 4. Diffuse atherosclerotic disease. Electronically signed by: Stephen Castanon MD 08/31/2024 11:37 AM EDT External Record Review External record reviewed: Inpatient record Chronic Conditions Patient?s care impacted by: Hypertension and Other (Coronary artery disease) Medications Administered Discontinued Medications Generic Name Dose Route Start Last Admin Trade Name Freq PRN Reason Stop Dose Admin Barium Sulfate 900 ml 08/31/24 10:49 08/31/24 10:49 Barium Sulfate Oral (Vanilla) 450 Ml Oral.Susp PO 08/31/24 10:50 900 ml ONCE ONE Administration Sodium Chloride 1,000 mls @ 999 mls/hr 08/31/24 08:10 08/31/24 11:22 Ns IV 08/31/24 09:10 Infused .Q1H1M STA Infusion Iohexol 100 ml 08/31/24 11:00 08/31/24 11:00 Iohexol 350 Mg/Ml 100 Ml Infus..Btl IV 08/31/24 11:01 85 ml ONCE ONE Administration Morphine Sulfate 4 mg 08/31/24 08:18 08/31/24 08:29 Morphine Sulfate 4 Mg/Ml Cartridge IVPUSH 08/31/24 08:19 4 mg ONCE STA Administration Protocol Ondansetron HCl 4 mg 08/31/24 08:18 08/31/24 08:30 Ondansetron Hcl 4 Mg/2 Ml Vial IVPUSH 08/31/24 08:19 4 mg ONCE ONE Administration Discharge Plan Discharge Clinical Impression: Small bowel obstruction, Abdominal pain Patient Disposition: Admitted As Inpatient Prescriptions: No Action lactulose 10 gram/15 mL solution 30 ml PO DAILY PRN (Reason: for constipation) Qty: 946 0RF rosuvastatin 10 mg tablet 10 mg PO DAILY Qty: 90 3RF levetiracetam 250 mg tablet 250 mg PO BID 90 Days Qty: 180 0RF amlodipine 2.5 mg tablet 7.5 mg PO BEDTIME Qty: 270 3RF cyanocobalamin (vitamin B-12) 1,000 mcg Tablet 1,000 mcg PO DAILY aspirin 81 mg Tablet,Delayed Release (Dr/Ec) 81 mg PO DAILY docusate sodium 100 mg capsule 100 mg PO DAILY PRN (Reason: Constipation) metoprolol tartrate 25 mg tablet 12.5 mg PO .QD clopidogrel 75 mg tablet 75 mg PO DAILY Qty: 90 3RF Print Language: Estonian
--- NOTE | 2024-08-31 08:10 | PC.NURSE ---
pt is alert and oriented, skin appropriate for ethnicity, respirations even and unlabored, pt reports mid/lower abd pain that started around 0000 with nausea, last good bowel movement was on Monday, a small bowel movement yesterday, abd with active bowel sounds on the left and hypoactive on the right, abd tender, pt has hx of small bowel obstruction, ns on the monitor and vs stable
[2024-08-31 08:20] LABS: Basophils Percent Auto 0.3 % (0-2); Eosinophils Absolute Auto 0.3 X10*3/uL (0.0-0.4); Eosinophils Percent Auto 2.4 % (0-4); Hematocrit 41.1 % (42.0-52.0); Hemoglobin 13.7 g/dl (14.0-18.0); Imm Gran Abs Auto 0.03 X10*3/uL (0.00-0.03); Imm Gran Pct Auto 0.3 % (0.0-0.4); Lymphocytes Percent Auto 16.5 % (20-40); MANUAL DIFF FLAG NO; Mean Corpuscular HGB Conc 33.3 g/dl (31.0-36.0); Mean Corpuscular Hemoglobin 26.1 pg (27.0-33.0); Mean Corpuscular Volume 78.4 fL (80.0-98.0); Mean Platelet Volume 9.7 fL (9.4-12.4); Monocytes Absolute Auto 0.7 X10*3/uL (0.1-1.2); Monocytes Percent Auto 5.5 % (2-11); Platelet Count 268 X10*3/uL (160-400); Red Blood Count 5.24 X10*6/uL (4.60-5.80); Red Cell Distribution Width 16.9 % (11.0-16.0)
[2024-08-31] MEDS: Morphine Sulfate 4 MG/ML CARTRIDGE IVPUSH ×2 (08:29→13:28)
[2024-08-31] MEDS: 0.9 % Sodium Chloride 1,000 ML 999 ML IV (08:29)
[2024-08-31] MEDS: ondansetron HCL 4 MG/2 ML VIAL IVPUSH (08:30)
[2024-08-31 08:31] LABS: Lactic Acid 1.5 mmol/L (0.5-2.0)
[2024-08-31 08:34] LABS: Partial Thromboplastin Time 35.3 SEC (26.0-36.8)
[2024-08-31 08:36] LABS: Alanine Aminotransferase 15 U/L (0-40); Alkaline Phosphatase 84 U/L (39-117); Anion Gap 13 (12-20); Aspartate Amino Transferase 20 U/L (5-37); Bilirubin Total 0.5 mg/dL (0.0-1.0); Blood Urea Nitrogen 18 mg/dL (9-16); Calcium 9.5 mg/dL (8.4-10.2); Carbon Dioxide 21 mmol/L (22-29); Chloride 110 mmol/L (96-108); Creatinine Clr Calc Pharmacy 73.2; Estimated Glomerular Filt Rate > 60; Glucose Random 124 mg/dL (60-115); Lipase 10 U/L (8-78); Magnesium 2.3 mg/dL (1.6-2.6); Potassium 4.3 mmol/L (3.3-5.1); Sodium 140 mmol/L (135-145); Total Protein 6.8 g/dL (6.5-8.0)
[2024-08-31 09:09] LABS: Influenza A PCR NEGATIVE (Negative); Influenza B PCR NEGATIVE (Negative); Resp Syncy Virus RNA Qual PCR NEGATIVE (Negative); SARS COV2 PCR INHOUSE NEGATIVE (Negative)
[2024-08-31] MEDS: Barium Sulfate Oral (Vanilla) 450 ML ORAL.SUSP 900 ML PO (10:49)
[2024-08-31] MEDS: iohexoL 350 MG/ML 100 ML INFUS..BTL IV (11:00)
--- NOTE | 2024-08-31 11:23 | PC.NURSE ---
Assumed care of this patient at 1100, patient had just returned from CT, IV fluids completed, patient states pain is 3/10, given urinal to provide urine sample. VSS
[2024-08-31 11:34] LABS: Appearance Urine Clear; Color Urine Yellow; Glucose Urine UA Negative (Negative); Leukocyte Esterase Urine Negative (Negative); Nitrite Urine Negative (Negative); Specific Gravity - Urine 1.025 (1.005-1.025); Urine Blood Negative (Negative); Urine Ketones Negative (Negative); Urine Protein Negative (Neg-Trace)
--- NOTE | 2024-08-31 15:18 | PM.HPGS ---
History of Present Illness History of Present Illness Date of Service: 08/31/24 Chief complaint: ABD PAIN SINCE MIDNIGHT PER EMS Narrative: Geoffrey Bone is a 89 year old male who has had multiple prior admissions of partial small bowel obstruction who presents here with a similar episode. He complains of abdominal pain and swelling and failure passes flatus and stool for the last at least 2 days. Patient as noted above has had several admissions for this and typically resolves within a few days. He has not had any vomiting or nausea. Patient states this is similar to his other bouts of this. He is not recall any unusual diets, new meds, recent foreign travel. Patient has had bowel surgery in the distant past. He has never had surgery for lysis of adhesions. Chart was reviewed and patient evaluated. Patient has a plethora of comorbidities and intercurrent medical problems. White count of 12. PMFSH Past Medical History Medical History CAD (coronary artery disease) Afib CVA (cerebral vascular accident) Self-catheterizes urinary bladder History of trigger finger Arthritis Preoperative cardiovascular examination Symptomatic stenosis of left carotid artery Rectal cancer Bladder neck contracture GERD (gastroesophageal reflux disease) Urinary incontinence Obstructive sleep apnea Coronary artery disease Type 2 diabetes mellitus with hyperglycemia Small bowel obstruction Erectile dysfunction Overweight (BMI 25.0-29.9) Peripheral vascular disease Prostate cancer Hematuria Constipation BPH (benign prostatic hyperplasia) Prostate cancer Colon cancer Dysuria Hyperlipidemia, unspecified Essential hypertension Family History Family History Father Pancreatic cancer Mother No problems noted. Brother Liver cancer Surgical History Surgical History History of left-sided carotid endarterectomy History of coronary artery stent placement History of exploratory laparotomy History of carpal tunnel release History of prostate surgery (~2017) History of bladder surgery (~01/04/18) History of colectomy History of appendectomy Social History Social History Household Members: Family Household Members Other:: Granddaughter Housing: House Are you a primary hearing healthcare practitioner to a significant other at home: No Do you presently have visiting nurse or other home services: No Alcohol intake: never Patient Tobacco Use Status: Former Tobacco user Tobacco use type: Cigarette Smoked in Last 30 Days: No e-Cigarette/Vaping Use: Never Used Second Hand Smoke Exposure: No Use of substances other than those prescribed or required for medical reasons: No Advance Directives: Yes Advance Directives on File: Yes Advance Directives Date on File: 09/29/20 Do you have a plan to hurt others: No Plan service: No Current occupational status: retired Cognitive needs: Yes (cane) Hearing needs: Yes (hearing aide) Vision needs: Yes (glasses) Meds Allergies Allergy/AdvReac Type Severity Reaction Status Date / Time diphenhydramine AdvReac Intermediate Hallucinati Verified 08/31/24 08:02 [From Benadryl] ons Home Medications ?Medication ?Instructions ?Recorded ?Confirmed ?Last Taken ?Type aspirin 81 mg tablet,delayed 81 mg PO DAILY 12/01/22 06/24/24 03/31/24 History release cyanocobalamin (vitamin B-12) 1,000 mcg PO DAILY 12/01/22 06/24/24 06/18/24 History 1,000 mcg tablet docusate sodium 100 mg capsule 100 mg PO DAILY PRN Constipation 01/12/24 06/24/24 06/18/24 History metoprolol tartrate 25 mg tablet 12.5 mg PO DAILY 06/28/24 06/28/24 Unknown History Physical Exam Vital Signs: Vital Signs: Last Vital Signs Temp 97.9 F 08/31/24 11:22 Pulse 88 08/31/24 13:27 Resp 16 08/31/24 13:27 BP 130/70 08/31/24 13:27 Pulse Ox 95 08/31/24 13:27 O2 Del Method Room Air 08/31/24 13:27 BMI result Body Mass Index 23.6 GI: Other: Abdomen moderately distended and mild periumbilical tenderness but without evidence of any guarding, rebound, or rigidity. Results Results Labs: Short CBC 08/31/24 Range/Units 08:16 WBC 12.0 H (4.8-10.8) X10*3/uL Hgb 13.7 L (14.0-18.0) g/dl Hct 41.1 L (42.0-52.0) % Plt Count 268 (160-400) X10*3/uL BMP 08/31/24 08:16 Sodium 140 Potassium 4.3 Chloride 110 H Carbon Dioxide 21 L BUN 18 H Creatinine 0.81 Calcium 9.5 Liver Function 08/31/24 Range/Units 08:16 Total Bilirubin 0.5 (0.0-1.0) mg/dL AST 20 (5-37) U/L ALT 15 (0-40) U/L Alkaline Phosphatase 84 (39-117) U/L Albumin 4.0 (3.5-5.0) g/dL Urine 08/31/24 Range/Units 11:27 Urine Color Yellow Urine Appearance Clear Urine pH 6.0 (5.0-9.0) Ur Specific [place] 1.025 (1.005-1.025) Urine Protein Negative (Neg-Trace) mg/dL Urine Glucose (UA) Negative (Negative) mg/dL Assessment and Plan (1) Small bowel obstruction: Status: Acute Plan Current plan is similar to prior admissions. Patient was not currently vomiting and no NG tube is indicated at this time. Patient will be placed NPO with sips with meds, encourage incentive spirometry, serial labs and exams. IV hydration. Medical consultation regarding intercurrent medical problems. Quality Stroke Does the patient have a stroke diagnosis?: No VTE Prior VTE?: No VTE Risk Level:: Surgical - low VTE Device Contraindication: N/A - Device Ordered VTE Drug Contraindication: Treatment Not Indicated Procedures Date of Service Date of Service: 08/31/24
--- NOTE | 2024-08-31 15:29 | PC.NURSE ---
report given to Martha bedoya in overflow
--- NOTE | 2024-08-31 15:49 | PHA.MEDREC ---
Addendum entered by Kristel Mayer RPh 08/31/24 15:56: [facility] REVIEWED Original Note: Pharmacy Consult ? Medication Reconciliation Pharmacy has completed the medication reconciliation. Spoke to patient to confirm meds.
[2024-08-31] MEDS: Dextrose 5 % and 0.45 % NaCl 1,000 ML 100 ML IVCONT (15:55)
--- NOTE | 2024-08-31 15:57 | PC.NURSE ---
RN to RN phone report given to Martha in overflow, patient to be transported over to overflow when transport available.
--- NOTE | 2024-08-31 17:45 | P.CONHOSP_ITS ---
History of Present Illness Data of Consult Service Date: 08/31/24 Primary Care Provider: Pro Nunn MD [facility] Reason for consult: Medical management Patient is an 89-year-old male with a PMH significant for CAD s/p RCA stenting 10/2023, carotid stenosis s/p bilateral endarterectomies, prostate cancer s/p radiation, rectal cancer s/p resection, bladder neck obstruction, recurrent SBOs, post-operative paroxysmal AFib not on anticoagulation, and TORRES not on CPAP. Initially presented to the ED for gradually worsening abdominal pain since last night. CT of abdomen and pelvis found small bowel obstruction with transition point in right pelvis, distal ileum with associated edema. Patient was admitted to the hospital under general surgery services with hospitalist consult for medical management. Patient reports he overall feels better and has been passing some gas. Abdominal pain controlled with current regimen, and feels more like a ?dull pain?. No nausea or vomiting. Patient states he has had as many as 10 prior episodes of SBO which usually resolve on their own after a few days. No chest pain/pressure, palpitations. Denies shortness or breath or difficulty breathing. No fever, chills. Review of Systems 2 Review of Systems: Yes all other systems are reviewed and are negative [facility] Medical History CAD (coronary artery disease) Afib CVA (cerebral vascular accident) Self-catheterizes urinary bladder History of trigger finger Arthritis Preoperative cardiovascular examination Symptomatic stenosis of left carotid artery Rectal cancer Bladder neck contracture GERD (gastroesophageal reflux disease) Urinary incontinence Obstructive sleep apnea Coronary artery disease Type 2 diabetes mellitus with hyperglycemia Small bowel obstruction Erectile dysfunction Overweight (BMI 25.0-29.9) Peripheral vascular disease Prostate cancer Hematuria Constipation BPH (benign prostatic hyperplasia) Prostate cancer Colon cancer Dysuria Hyperlipidemia, unspecified Essential hypertension Family History Father Pancreatic cancer Mother No problems noted. Brother Liver cancer Surgical History History of left-sided carotid endarterectomy History of coronary artery stent placement History of exploratory laparotomy History of carpal tunnel release History of prostate surgery (~2016) History of bladder surgery (~01/04/18) History of colectomy History of appendectomy Social History Household Members: Family Household Members Other:: Granddaughter Housing: House Are you a primary child care sitter to a significant other at home: No Do you presently have visiting nurse or other home services: No Alcohol intake: never Patient Tobacco Use Status: Former Tobacco user Tobacco use type: Cigarette Smoked in Last 30 Days: No e-Cigarette/Vaping Use: Never Used Second Hand Smoke Exposure: No Use of substances other than those prescribed or required for medical reasons: No Advance Directives: Yes Advance Directives on File: Yes Advance Directives Date on File: 09/29/20 Do you have a plan to hurt others: No Plan Nutrition Risks: No Nutritional Risk service: No Current occupational status: retired Cognitive needs: Yes (cane) Hearing needs: Yes (hearing aide) Vision needs: Yes (glasses) Meds Allergies Allergy/AdvReac Type Severity Reaction Status Date / Time diphenhydramine AdvReac Intermediate Hallucinati Verified 08/31/24 08:02 [From Tereza] ons Active Medications: Current Medications Acetaminophen (Acetaminophen 325 Mg Tablet) 650 mg PO Q6H PRN PRN Reason: Pain, Mild (Pain Scale 1-3), fever or headache Acetaminophen (Acetaminophen 325 Mg Tablet) 650 mg PO Q6H PRN PRN Reason: Pain, Mild (Pain Scale 1-3), fever or headache Calcium Carbonate (Calcium Carbonate 750 Mg Tab.Chew) 750 mg PO Q4H PRN PRN Reason: Heartburn Calcium Carbonate (Calcium Carbonate 750 Mg Tab.Chew) 750 mg PO Q4H PRN PRN Reason: Heartburn Hydromorphone HCl (Hydromorphone Hcl 1 Mg/Ml Syringe) 0.5 mg IVPUSH Q4H PRN; Protocol PRN Reason: Pain, Severe (Pain Scale 7-10) Dextrose/Sodium Chloride (D51/2ns) 1,000 mls @ 100 mls/hr IVCONT .Q10H KRISTINE Last Admin: 08/31/24 15:55 Dose: 100 mls/hr Magnesium Hydroxide (Milk Of Magnesia 30 Ml Oral.Susp) 30 ml PO DAILY PRN PRN Reason: Constipation Magnesium Hydroxide (Milk Of Magnesia 30 Ml Oral.Susp) 30 ml PO DAILY PRN PRN Reason: Constipation Melatonin (Melatonin 3 Mg Tablet) 6 mg PO BEDTIME PRN PRN Reason: Insomnia Melatonin (Melatonin 3 Mg Tablet) 6 mg PO BEDTIME PRN PRN Reason: Insomnia Ondansetron HCl (Ondansetron Hcl 4 Mg/2 Ml Vial) 4 mg IVPUSH Q8H PRN PRN Reason: Nausea and Vomiting Sodium Chloride (0.9 % Sodium Chloride Flush 3 Ml Syringe) 3 ml IVFLUSH [facility] Last Admin: 08/31/24 15:55 Dose: Not Given Sodium Chloride (0.9 % Sodium Chloride Flush 3 Ml Syringe) 3 ml IVFLUSH [facility] Temazepam (Temazepam 15 Mg Capsule) 15 mg PO BEDTIME PRN PRN Reason: Insomnia Home Medications ?Medication ?Instructions ?Recorded ?Confirmed ?Last Taken ?Type aspirin 81 mg tablet,delayed 81 mg PO DAILY 12/01/22 08/31/24 08/30/24 History release cyanocobalamin (vitamin B-12) 1,000 mcg PO DAILY 12/01/22 08/31/24 08/30/24 History 1,000 mcg tablet docusate sodium 100 mg capsule 100 mg PO DAILY PRN Constipation 01/12/24 08/31/24 06/18/24 History metoprolol tartrate 25 mg tablet 12.5 mg PO DAILY 06/28/24 08/31/24 08/30/24 History Physical Exam 2 Vital Signs and Narrative: Vital Signs: Last Vital Signs Temp 97.9 F 08/31/24 15:23 Pulse 91 08/31/24 15:23 Resp 17 08/31/24 15:23 BP 135/66 08/31/24 15:23 Pulse Ox 96 08/31/24 15:23 O2 Del Method Room Air 08/31/24 15:23 BMI result Body Mass Index 23.6 General: AOx3, no acute distress Resp: CTA bilaterally CVS: S1, S2, RRR GI: +BS, soft, mild distention. Mild diffuse tenderness. Skin: Warm, dry Neuro: Cranial nerves II-XII grossly intact bilaterally. Motor grossly intact bilaterally Extremities: No edema Psych: Appropriate affect Results Labs 08/31/24 08:16 08/31/24 08:16 Labs: Laboratory Results - last 24 hr 08/31/24 08/31/24 08/31/24 08:15 08:16 08:27 MCV 78.4 L MCH 26.1 L MCHC 33.3 RDW 16.9 H Plt Count 268 MPV 9.7 Immature Gran % (Auto) 0.3 Neut % (Auto) 75.0 H Lymph % (Auto) 16.5 L Mcdonough % (Auto) 5.5 Eos % (Auto) 2.4 Baso % (Auto) 0.3 Lymph # (Auto) 2.0 Mcdonough # (Auto) 0.7 Eos # (Auto) 0.3 Baso # (Auto) 0.0 Abs Immat Gran (auto) 0.03 Absolute Neuts (auto) 9.0 H Absolute Nucleated RBC 0.000 Nucleated RBC % (auto) 0.0 APTT 35.3 Anion Gap 13 Estim Creat Clear Calc 73.2 Estimated GFR > 60 Random Glucose 124 H Lactic Acid 1.5 Calcium 9.5 Magnesium 2.3 Total Bilirubin 0.5 AST 20 ALT 15 Alkaline Phosphatase 84 Total Protein 6.8 Albumin 4.0 Lipase 10 Urine Color Urine Appearance Urine pH Ur Specific [place] Urine Protein Urine Glucose (UA) Urine Ketones Urine Blood Urine Nitrite Ur Leukocyte Esterase Influenza Type A (PCR) NEGATIVE Influenza Type B (PCR) NEGATIVE RSV RNA Qual (PCR) NEGATIVE SARS-CoV-2 RNA (RT-PCR) NEGATIVE 08/31/24 11:27 MCV MCH MCHC RDW Plt Count MPV Immature Gran % (Auto) Neut % (Auto) Lymph % (Auto) Mcdonough % (Auto) Eos % (Auto) Baso % (Auto) Lymph # (Auto) Mcdonough # (Auto) Eos # (Auto) Baso # (Auto) Abs Immat Gran (auto) Absolute Neuts (auto) Absolute Nucleated RBC Nucleated RBC % (auto) APTT Anion Gap Estim Creat Clear Calc Estimated GFR Random Glucose Lactic Acid Calcium Magnesium Total Bilirubin AST ALT Alkaline Phosphatase Total Protein Albumin Lipase Urine Color Yellow Urine Appearance Clear Urine pH 6.0 Ur Specific [place] 1.025 Urine Protein Negative Urine Glucose (UA) Negative Urine Ketones Negative Urine Blood Negative Urine Nitrite Negative Ur Leukocyte Esterase Negative Influenza Type A (PCR) Influenza Type B (PCR) RSV RNA Qual (PCR) SARS-CoV-2 RNA (RT-PCR) Imaging Radiologist's Impressions: Impressions Abdomen/Pelvis CT 08/31/24 08:11 IMPRESSION: 1. Small bowel obstruction with transition point in the right pelvis, distal ileum. Associated edema seen in the adjacent mesentery. 2. Stable right renal cysts. No follow-up indicated. 3. Calcified pleural plaques in the right hemidiaphragm. 4. Diffuse atherosclerotic disease. Electronically signed by: Stephen Castanon MD 08/31/2024 11:37 AM EDT RP Assessment and Plan (1) Small bowel obstruction: Status: Acute Plan Patient is an 89-year-old male with a PMH significant for CAD s/p RCA stenting 10/2023, carotid stenosis s/p bilateral endarterectomies, prostate cancer s/p radiation, rectal cancer s/p resection, bladder neck obstruction, recurrent SBOs, post-operative paroxysmal AFib not on anticoagulation, and TORRES not on CPAP. Initially presented to the ED for gradually worsening abdominal pain since last night. CT of abdomen and pelvis found small bowel obstruction with transition point in right pelvis, distal ileum with associated edema. Hospitalist consult for medical management SBO Denies N/V, currently no indication for NGT Plan as per General surgery CAD/HLD Continue aspirin, clopidogrel, statin Paroxysmal AFib Noted during ICU stay in 12/19/2023 Not on anticoagulation Continue metoprolol tomorrow ?Seizure disorder Pt with left lower extremity weakness and associated vertigo-like symptoms in 03/18/2024 Seen by Neurology, ?complex partial seizure despite normal EEG Continue Anurag Is set to follow up with Neurology in August HTN BP has been soft Hold amlodipine today, resume tomorrow if indicated TORRES Not on CPAP Diet-controlled type 2 diabetes Diabetic diet once diet advanced Thank you for allowing us to participate in the care of this patient. We will continue to follow along with you.
[2024-08-31] MEDS: levETIRAcetam 250 MG TABLET PO (21:30)
[2024-09-01] MEDS: Dextrose 5 % and 0.45 % NaCl 1,000 ML 100 ML IVCONT ×3 (00:58→20:54)
--- NOTE | 2024-09-01 01:11 | PC.NURSE ---
pt sleeping at this time.
--- NOTE | 2024-09-01 03:47 | PC.NURSE ---
pt is sleeping, no sign of distress.
[2024-09-01 05:01] LABS: MANUAL DIFF FLAG NO
[2024-09-01 05:05] LABS: Basophils Percent Auto 0.3 % (0-2); Eosinophils Absolute Auto 0.2 X10*3/uL (0.0-0.4); Eosinophils Percent Auto 3.5 % (0-4); Hematocrit 35.3 % (42.0-52.0); Hemoglobin 11.2 g/dl (14.0-18.0); Imm Gran Abs Auto 0.01 X10*3/uL (0.00-0.03); Imm Gran Pct Auto 0.1 % (0.0-0.4); Lymphocytes Absolute Auto 2.1 X10*3/uL (1.2-4.9); Lymphocytes Percent Auto 30.5 % (20-40); Mean Corpuscular HGB Conc 31.7 g/dl (31.0-36.0); Mean Corpuscular Hemoglobin 25.7 pg (27.0-33.0); Mean Corpuscular Volume 81.1 fL (80.0-98.0); Mean Platelet Volume 10.2 fL (9.4-12.4); Monocytes Absolute Auto 0.8 X10*3/uL (0.1-1.2); Monocytes Percent Auto 12.4 % (2-11); Neutrophils Absolute Auto 3.6 x10*3/uL (2.0-8.3); Neutrophils Percent Auto 53.2 % (45-73); Platelet Count 218 X10*3/uL (160-400); Red Blood Count 4.35 X10*6/uL (4.60-5.80); Red Cell Distribution Width 16.8 % (11.0-16.0); White Blood Count 6.8 X10*3/uL (4.8-10.8)
[2024-09-01 05:22] LABS: Alanine Aminotransferase 11 U/L (0-40); Alkaline Phosphatase 62 U/L (39-117); Anion Gap 11 (12-20); Aspartate Amino Transferase 20 U/L (5-37); Bilirubin Total 0.5 mg/dL (0.0-1.0); Blood Urea Nitrogen 14 mg/dL (9-16); Calcium 8.1 mg/dL (8.4-10.2); Carbon Dioxide 21 mmol/L (22-29); Chloride 109 mmol/L (96-108); Creatinine Clr Calc Pharmacy 74.2; Estimated Glomerular Filt Rate > 60; Glucose Random 121 mg/dL (60-115); Potassium 3.9 mmol/L (3.3-5.1); Sodium 137 mmol/L (135-145)
--- NOTE | 2024-09-01 06:35 | PC.NURSE ---
pt hearing aide charging in back againt the wall under monitor.
--- NOTE | 2024-09-01 08:03 | PC.NURSE ---
Care of Pt assumed at change of shift. Pt resting quietly in bed. Pt requests BiPap be removed for breakfast--RT to bedside for removal and Pt placed on NC. Pt doing well with breakfast. Awaiting room assignment.
[2024-09-01 08:30] VITALS: BP 124/80; PULSE 64; RESP 16; TEMP 36.5; O2SAT 95
[2024-09-01 09:41] VITALS: BP 113/63; PULSE 66; RESP 16; TEMP 36.3; O2SAT 92
[2024-09-01] MEDS: Atorvastatin Calcium 40 MG TABLET PO (10:17)
[2024-09-01] MEDS: Cyanocobalamin (Vitamin B-12) 1,000 MCG TABLET 1000 MCG PO (10:17)
[2024-09-01] MEDS: levETIRAcetam 250 MG TABLET PO ×2 (10:17→20:53)
[2024-09-01] MEDS: Clopidogrel Bisulfate 75 MG TABLET PO (10:17)
[2024-09-01] MEDS: Metoprolol Tartrate 12.5 MG HALFTAB PO (10:17)
[2024-09-01] MEDS: Aspirin Enteric Coated 81 MG TABLET.DR PO (10:17)
[2024-09-01 11:05] VITALS: BMI 24.5
--- NOTE | 2024-09-01 11:09 | MHC.CM.PN ---
PT LIVES WITH [facility] HAS NO SERVIES AND HAS HIS OWN RIDE HOME
--- NOTE | 2024-09-01 12:13 | P.PNIM_ITS ---
Subjective Subjective Date of Service: 09/01/24 Interval History: Patient with SBO admitted under general surgery services F/U for medical management No acute events overnight Some mild abdominal tenderness Continues to pass flatus, but no bowel movement Denies nausea, vomiting Review of Systems Review of Systems: Yes all other systems are reviewed and are negative Physical Exam 2 Vital Signs: Vital Signs: Last Vital Signs Temp 97.4 F 09/01/24 09:41 Pulse 66 09/01/24 09:41 Resp 16 09/01/24 09:41 BP 113/63 09/01/24 09:41 Pulse Ox 92 09/01/24 09:41 O2 Del Method Room Air 09/01/24 09:41 BMI result Body Mass Index 24.5 General: AOx3, no acute distress Resp: CTA bilaterally CVS: S1, S2, RRR GI: Bowel sounds hypoactive, diffuse mild abd tenderness, abd soft with mild distention Skin: Warm, dry Neuro: Cranial nerves II-XII grossly intact bilaterally. Motor grossly intact bilaterally Extremities: No edema Psych: Appropriate affect Objective Data Active Medications Acetaminophen (Acetaminophen 325 Mg Tablet) 650 mg PO Q6H PRN PRN Reason: Pain, Mild (Pain Scale 1-3), fever or headache Acetaminophen (Acetaminophen 325 Mg Tablet) 650 mg PO Q6H PRN PRN Reason: Pain, Mild (Pain Scale 1-3), fever or headache Amlodipine Besylate (Amlodipine Besylate 2.5 Mg Tablet) 7.5 mg PO BEDTIME [facility]; Protocol Aspirin (Aspirin Enteric Coated 81 Mg Tablet.) 81 mg PO DAILY [facility] Last Admin: 09/01/24 10:17 Dose: 81 mg Documented By: WOLFGANG Atorvastatin Calcium (Atorvastatin Calcium 40 Mg Tablet) 40 mg PO DAILY [facility] Last Admin: 09/01/24 10:17 Dose: 40 mg Documented By: WOLFGANG Calcium Carbonate (Calcium Carbonate 750 Mg Tab.Chew) 750 mg PO Q4H PRN PRN Reason: Heartburn Calcium Carbonate (Calcium Carbonate 750 Mg Tab.Chew) 750 mg PO Q4H PRN PRN Reason: Heartburn Clopidogrel Bisulfate (Clopidogrel Bisulfate 75 Mg Tablet) 75 mg PO DAILY [facility] Last Admin: 09/01/24 10:17 Dose: 75 mg Documented By: WOLFGANG Cyanocobalamin (Cyanocobalamin (Vitamin B-12) 1,000 Mcg Tablet) 1,000 mcg PO DAILY [facility] Last Admin: 09/01/24 10:17 Dose: 1,000 mcg Documented By: WOLFGANG Hydromorphone HCl (Hydromorphone Hcl 1 Mg/Ml Syringe) 0.5 mg IVPUSH Q4H PRN; Protocol PRN Reason: Pain, Severe (Pain Scale 7-10) Dextrose/Sodium Chloride (D51/2ns) 1,000 mls @ 100 mls/hr IVCONT .Q10H [facility] Last Admin: 09/01/24 10:21 Dose: 100 mls/hr Documented By: WOLFGANG Levetiracetam (Levetiracetam 250 Mg Tablet) 250 mg PO BID [facility] Last Admin: 09/01/24 10:17 Dose: 250 mg Documented By: WOLFGANG Magnesium Hydroxide (Milk Of Magnesia 30 Ml Oral.Susp) 30 ml PO DAILY PRN PRN Reason: Constipation Magnesium Hydroxide (Milk Of Magnesia 30 Ml Oral.Susp) 30 ml PO DAILY PRN PRN Reason: Constipation Melatonin (Melatonin 3 Mg Tablet) 6 mg PO BEDTIME PRN PRN Reason: Insomnia Melatonin (Melatonin 3 Mg Tablet) 6 mg PO BEDTIME PRN PRN Reason: Insomnia Metoprolol Tartrate (Metoprolol Tartrate 12.5 Mg Halftab) 12.5 mg PO DAILY [facility]; Protocol Last Admin: 09/01/24 10:17 Dose: 12.5 mg Documented By: WOLFGANG Ondansetron HCl (Ondansetron Hcl 4 Mg/2 Ml Vial) 4 mg IVPUSH Q8H PRN PRN Reason: Nausea and Vomiting Sodium Chloride (0.9 % Sodium Chloride Flush 3 Ml Syringe) 3 ml IVFLUSH [facility] Last Admin: 09/01/24 08:31 Dose: Not Given Documented By: ROSEANN Non-Admin Reason: IV Running Sodium Chloride (0.9 % Sodium Chloride Flush 3 Ml Syringe) 3 ml IVFLUSH [facility] Last Admin: 09/01/24 08:31 Dose: Not Given Documented By: ROSEANN Non-Admin Reason: IV Running Temazepam (Temazepam 15 Mg Capsule) 15 mg PO BEDTIME PRN PRN Reason: Insomnia Labs 09/01/24 04:15 09/01/24 04:15 Labs: Laboratory Results - last 24 hr 09/01/24 04:15 MCV 81.1 MCH 25.7 L MCHC 31.7 RDW 16.8 H Plt Count 218 MPV 10.2 Immature Gran % (Auto) 0.1 Neut % (Auto) 53.2 Lymph % (Auto) 30.5 [place] % (Auto) 12.4 H Eos % (Auto) 3.5 Baso % (Auto) 0.3 Lymph # (Auto) 2.1 [place] # (Auto) 0.8 Eos # (Auto) 0.2 Baso # (Auto) 0.0 Abs Immat Gran (auto) 0.01 Absolute Neuts (auto) 3.6 Absolute Nucleated RBC 0.000 Nucleated RBC % (auto) 0.0 Anion Gap 11 L Estim Creat Clear Calc 74.2 Estimated GFR > 60 Random Glucose 121 H Calcium 8.1 L D Total Bilirubin 0.5 AST 20 ALT 11 Alkaline Phosphatase 62 Total Protein 5.0 L Albumin 3.0 L Assessment and Plan (1) Small bowel obstruction: Status: Acute Plan Patient is an 89-year-old male with a PMH significant for CAD s/p RCA stenting 10/2023, carotid stenosis s/p bilateral endarterectomies, prostate cancer s/p radiation, rectal cancer s/p resection, bladder neck obstruction, recurrent SBOs, post-operative paroxysmal AFib not on anticoagulation, and TORRES not on CPAP. Initially presented to the ED for gradually worsening abdominal pain since last night. CT of abdomen and pelvis found small bowel obstruction with transition point in right pelvis, distal ileum with associated edema. Hospitalist consult for medical management SBO Denies N/V, currently no indication for NGT Passing gas but no bowel movement Plan as per General surgery CAD/HLD Continue aspirin, clopidogrel, statin Paroxysmal AFib Noted during ICU stay in 12/19/2023 Not on anticoagulation Continue metoprolol tomorrow ?Seizure disorder Pt with left lower extremity weakness and associated vertigo-like symptoms in 03/18/2024 Seen by Neurology, ?complex partial seizure despite normal EEG Continue Nash Is set to follow up with Neurology in August HTN BP has been soft Hold amlodipine today, resume tomorrow if indicated TORRES Not on CPAP Diet-controlled type 2 diabetes Diabetic diet once diet advanced Thank you for allowing us to participate in the care of this patient. We will continue to follow along with you. Quality Stroke Does the patient have a stroke diagnosis?: No VTE Prior VTE?: No VTE Risk Level:: Surgical - low VTE Device Contraindication: N/A - Device Ordered VTE Drug Contraindication: Treatment Not Indicated
--- NOTE | 2024-09-01 15:12 | PM.PNGS ---
Subjective Subjective Date of Service: 09/01/24 Interval history: Patient was abdominal symptoms are improved. He said he is passing some flatus. Less abdominal swelling. White blood cell count normal. Physical Exam Vital Signs: Vital Signs: Last Vital Signs Temp 97.4 F 09/01/24 09:41 Pulse 66 09/01/24 09:41 Resp 16 09/01/24 09:41 BP 113/63 09/01/24 09:41 Pulse Ox 92 09/01/24 09:41 O2 Del Method Room Air 09/01/24 09:41 BMI result Body Mass Index 24.5 GI: Other: Abdomen moderately distended. No evidence of any guarding, rebound, or rigidity. Mild periumbilical tenderness Objective Data Active Medications Acetaminophen (Acetaminophen 325 Mg Tablet) 650 mg PO Q6H PRN PRN Reason: Pain, Mild (Pain Scale 1-3), fever or headache Acetaminophen (Acetaminophen 325 Mg Tablet) 650 mg PO Q6H PRN PRN Reason: Pain, Mild (Pain Scale 1-3), fever or headache Amlodipine Besylate (Amlodipine Besylate 2.5 Mg Tablet) 7.5 mg PO BEDTIME [facility]; Protocol Aspirin (Aspirin Enteric Coated 81 Mg Tablet.) 81 mg PO DAILY [facility] Last Admin: 09/01/24 10:17 Dose: 81 mg Documented By: WOLFGANG Atorvastatin Calcium (Atorvastatin Calcium 40 Mg Tablet) 40 mg PO DAILY [facility] Last Admin: 09/01/24 10:17 Dose: 40 mg Documented By: WOLFGANG Calcium Carbonate (Calcium Carbonate 750 Mg Tab.Chew) 750 mg PO Q4H PRN PRN Reason: Heartburn Calcium Carbonate (Calcium Carbonate 750 Mg Tab.Chew) 750 mg PO Q4H PRN PRN Reason: Heartburn Clopidogrel Bisulfate (Clopidogrel Bisulfate 75 Mg Tablet) 75 mg PO DAILY [facility] Last Admin: 09/01/24 10:17 Dose: 75 mg Documented By: WOLFGANG Cyanocobalamin (Cyanocobalamin (Vitamin B-12) 1,000 Mcg Tablet) 1,000 mcg PO DAILY [facility] Last Admin: 09/01/24 10:17 Dose: 1,000 mcg Documented By: WOLFGANG Hydromorphone HCl (Hydromorphone Hcl 1 Mg/Ml Syringe) 0.5 mg IVPUSH Q4H PRN; Protocol PRN Reason: Pain, Severe (Pain Scale 7-10) Dextrose/Sodium Chloride (D51/2ns) 1,000 mls @ 100 mls/hr IVCONT .Q10H [facility] Last Admin: 09/01/24 10:21 Dose: 100 mls/hr Documented By: WOLFGANG Levetiracetam (Levetiracetam 250 Mg Tablet) 250 mg PO BID [facility] Last Admin: 09/01/24 10:17 Dose: 250 mg Documented By: WOLFGANG Magnesium Hydroxide (Milk Of Magnesia 30 Ml Oral.Susp) 30 ml PO DAILY PRN PRN Reason: Constipation Magnesium Hydroxide (Milk Of Magnesia 30 Ml Oral.Susp) 30 ml PO DAILY PRN PRN Reason: Constipation Melatonin (Melatonin 3 Mg Tablet) 6 mg PO BEDTIME PRN PRN Reason: Insomnia Melatonin (Melatonin 3 Mg Tablet) 6 mg PO BEDTIME PRN PRN Reason: Insomnia Metoprolol Tartrate (Metoprolol Tartrate 12.5 Mg Halftab) 12.5 mg PO DAILY [facility]; Protocol Last Admin: 09/01/24 10:17 Dose: 12.5 mg Documented By: WOLFGANG Ondansetron HCl (Ondansetron Hcl 4 Mg/2 Ml Vial) 4 mg IVPUSH Q8H PRN PRN Reason: Nausea and Vomiting Sodium Chloride (0.9 % Sodium Chloride Flush 3 Ml Syringe) 3 ml IVFLUSH [facility] Last Admin: 09/01/24 08:31 Dose: Not Given Documented By: ROSEANN Non-Admin Reason: IV Running Sodium Chloride (0.9 % Sodium Chloride Flush 3 Ml Syringe) [facility] Last Admin: 09/01/24 08:31 Dose: Not Given Documented By: ROSEANN Non-Admin Reason: IV Running Temazepam (Temazepam 15 Mg Capsule) 15 mg PO BEDTIME PRN PRN Reason: Insomnia Labs 09/01/24 04:15 09/01/24 04:15 Labs: Laboratory Results - last 24 hr 09/01/24 04:15 MCV 81.1 MCH 25.7 L MCHC 31.7 RDW 16.8 H Plt Count 218 MPV 10.2 Immature Gran % (Auto) 0.1 Neut % (Auto) 53.2 Lymph % (Auto) 30.5 [place] % (Auto) 12.4 H Eos % (Auto) 3.5 Baso % (Auto) 0.3 Lymph # (Auto) 2.1 [place] # (Auto) 0.8 Eos # (Auto) 0.2 Baso # (Auto) 0.0 Abs Immat Gran (auto) 0.01 Absolute Neuts (auto) 3.6 Absolute Nucleated RBC 0.000 Nucleated RBC % (auto) 0.0 Anion Gap 11 L Estim Creat Clear Calc 74.2 Estimated GFR > 60 Random Glucose 121 H Calcium 8.1 L D Total Bilirubin 0.5 AST 20 ALT 11 Alkaline Phosphatase 62 Total Protein 5.0 L Albumin 3.0 L Procedures Date of Service Date of Service: 09/01/24 Progress Note: A&P Assessment and plan (1) Small bowel obstruction: Status: Acute Assessment and Plan: Attempted sips of p.o. liquids, out of bed, incentive spirometer, serial labs and exams. A.m abdominal x-ray ordered for tomorrow (2) Abdominal pain: Status: Acute Time Spent With Patient Time: Total time managing care of this patient today ____ minutes. Quality Stroke Does the patient have a stroke diagnosis?: No VTE Prior VTE?: No VTE Risk Level:: Surgical - low VTE Device Contraindication: N/A - Device Ordered VTE Drug Contraindication: Treatment Not Indicated
[2024-09-01 15:39] VITALS: BP 132/61; PULSE 56; RESP 18; TEMP 36.4; O2SAT 94
[2024-09-01 19:42] VITALS: BP 155/73; PULSE 64; RESP 16; TEMP 36.2; O2SAT 94
[2024-09-01 20:53] VITALS: BP 155/73
[2024-09-01] MEDS: amLODIPine Besylate 2.5 MG TABLET 7.5 MG PO (20:53)
[2024-09-02 03:44] VITALS: BP 152/74; PULSE 73; RESP 18; TEMP 36.1; O2SAT 97
[2024-09-02] MEDS: Dextrose 5 % and 0.45 % NaCl 1,000 ML 100 ML IVCONT (05:57)
[2024-09-02 07:35] LABS: Glucose, Whole Blood 106 mg/dL (60-115)
[2024-09-02 07:54] VITALS: BP 141/65; PULSE 60; RESP 17; TEMP 36.4; O2SAT 97
--- NOTE | 2024-09-02 08:30 | P.PNGS_ITS ---
Subjective Subjective Date of Service: 09/02/24 Interval history: Feels improved. Denies abdominal pain, reports abd is sore. Had BM. WOuld like to eat. Physical Exam 2 Vital Signs: Vital Signs: Last Vital Signs Temp 97.6 F 09/02/24 07:54 Pulse 60 09/02/24 07:54 Resp 17 09/02/24 07:54 BP 141/65 H 09/02/24 07:54 Pulse Ox 97 09/02/24 07:54 O2 Del Method Room Air 09/02/24 07:54 BMI result Body Mass Index 24.5 Const: General: comfortable, no acute distress and alert O rientation/consciousness: patient oriented x3 Resp: Effort & Inspection: normal respiratory effort GI: Inspection: No distended Palpation (GI): Soft to palpation, nontender and no guarding Skin: General skin exam: no rashes or lesions noted Neuro: General: patient oriented x3 and moves all extremities Objective Data Active Medications Acetaminophen (Acetaminophen 325 Mg Tablet) 650 mg PO Q6H PRN PRN Reason: Pain, Mild (Pain Scale 1-3), fever or headache Acetaminophen (Acetaminophen 325 Mg Tablet) 650 mg PO Q6H PRN PRN Reason: Pain, Mild (Pain Scale 1-3), fever or headache Amlodipine Besylate (Amlodipine Besylate 2.5 Mg Tablet) 7.5 mg PO BEDTIME [facility]; Protocol Last Admin: 09/01/24 20:53 Dose: 7.5 mg Documented By: ERNESTO Aspirin (Aspirin Enteric Coated 81 Mg Tablet.) 81 mg PO DAILY [facility] Last Admin: 09/01/24 10:17 Dose: 81 mg Documented By: WOLFGANG Atorvastatin Calcium (Atorvastatin Calcium 40 Mg Tablet) 40 mg PO DAILY [facility] Last Admin: 09/01/24 10:17 Dose: 40 mg Documented By: WOLFGANG Calcium Carbonate (Calcium Carbonate 750 Mg Tab.Chew) 750 mg PO Q4H PRN PRN Reason: Heartburn Calcium Carbonate (Calcium Carbonate 750 Mg Tab.Chew) 750 mg PO Q4H PRN PRN Reason: Heartburn Clopidogrel Bisulfate (Clopidogrel Bisulfate 75 Mg Tablet) 75 mg PO DAILY [facility] Last Admin: 09/01/24 10:17 Dose: 75 mg Documented By: WOLFGANG Cyanocobalamin (Cyanocobalamin (Vitamin B-12) 1,000 Mcg Tablet) 1,000 mcg PO DAILY [facility] Last Admin: 09/01/24 10:17 Dose: 1,000 mcg Documented By: WOLFGANG Hydromorphone HCl (Hydromorphone Hcl 1 Mg/Ml Syringe) 0.5 mg IVPUSH Q4H PRN; Protocol PRN Reason: Pain, Severe (Pain Scale 7-10) Dextrose/Sodium Chloride (D51/2ns) 1,000 mls @ 100 mls/hr IVCONT .Q10H [facility] Last Admin: 09/02/24 05:57 Dose: 100 mls/hr Documented By: ERNESTO Levetiracetam (Levetiracetam 250 Mg Tablet) 250 mg PO BID [facility] Last Admin: 09/01/24 20:53 Dose: 250 mg Documented By: ERNESTO Magnesium Hydroxide (Milk Of Magnesia 30 Ml Oral.Susp) 30 ml PO DAILY PRN PRN Reason: Constipation Magnesium Hydroxide (Milk Of Magnesia 30 Ml Oral.Susp) 30 ml PO DAILY PRN PRN Reason: Constipation Melatonin (Melatonin 3 Mg Tablet) 6 mg PO BEDTIME PRN PRN Reason: Insomnia Melatonin (Melatonin 3 Mg Tablet) 6 mg PO BEDTIME PRN PRN Reason: Insomnia Metoprolol Tartrate (Metoprolol Tartrate 12.5 Mg Halftab) 12.5 mg PO DAILY [facility]; Protocol Last Admin: 09/01/24 10:17 Dose: 12.5 mg Documented By: WOLFGANG Ondansetron HCl (Ondansetron Hcl 4 Mg/2 Ml Vial) 4 mg IVPUSH Q8H PRN PRN Reason: Nausea and Vomiting Sodium Chloride (0.9 % Sodium Chloride Flush 3 Ml Syringe) 3 ml IVFLUSH QSHIFT [facility] Last Admin: 09/02/24 00:14 Dose: Not Given Documented By: ERNESTO Non-Admin Reason: IV Running Temazepam (Temazepam 15 Mg Capsule) 15 mg PO BEDTIME PRN PRN Reason: Insomnia Labs 09/01/24 04:15 09/01/24 04:15 Labs: Laboratory Results - last 24 hr 09/02/24 07:28 POC Glucose 106 Procedures Date of Service Date of Service: 09/02/24 Progress Note: A&P Assessment and plan (1) Small bowel obstruction: Status: Acute Plan F/u AM AXR shows contrast in right colon, now with evidence of GI function and symptoms resolved. Will advance to clear liquids and further as tolerated. Patient comfortable with plan. OOB and ambulate. Time Spent With Patient Time: Total time managing care of this patient today ____ minutes. Quality Stroke Does the patient have a stroke diagnosis?: No VTE Prior VTE?: No VTE Risk Level:: Surgical - low VTE Device Contraindication: N/A - Device Ordered VTE Drug Contraindication: Treatment Not Indicated
[2024-09-02] MEDS: Aspirin Enteric Coated 81 MG TABLET.DR PO (08:41)
[2024-09-02] MEDS: 0.9 % Sodium Chloride Flush 3 ML SYRINGE IVFLUSH (08:41)
[2024-09-02] MEDS: Metoprolol Tartrate 12.5 MG HALFTAB PO (08:41)
[2024-09-02] MEDS: Cyanocobalamin (Vitamin B-12) 1,000 MCG TABLET 1000 MCG PO (08:41)
[2024-09-02] MEDS: Atorvastatin Calcium 40 MG TABLET PO (08:41)
[2024-09-02] MEDS: Clopidogrel Bisulfate 75 MG TABLET PO (08:41)
[2024-09-02] MEDS: levETIRAcetam 250 MG TABLET PO ×2 (08:41→20:31)
--- NOTE | 2024-09-02 09:52 | HO.PM.IMPN ---
Subjective Subjective Date of Service: 09/02/24 Interval History: seen and evaluated this morning feels better no nausea or vomiting passing gas Review of Systems Review of Systems: Yes all other systems are reviewed and are negative Physical Exam Vital Signs: Vital Signs: Last Vital Signs Temp 97.6 F 09/02/24 07:54 Pulse 60 09/02/24 07:54 Resp 17 09/02/24 07:54 BP 141/65 H 09/02/24 07:54 Pulse Ox 97 09/02/24 07:54 O2 Del Method Room Air 09/02/24 07:54 BMI result Body Mass Index 24.5 Const: Other: Constitutional : Awake, interactive, not in distress Neck : Normal inspection, Supple Cardiovascular : RRR, no JVP, no lower extremity edema Respiratory : good bilateral air entry, no crackles Gastrointestinal: soft, lax, Normal bowel sounds, Non tender Skin : Warm, Dry Neurological : Alert & oriented x3, No focal deficit Objective Data Active Medications Acetaminophen (Acetaminophen 325 Mg Tablet) 650 mg PO Q6H PRN PRN Reason: Pain, Mild (Pain Scale 1-3), fever or headache Acetaminophen (Acetaminophen 325 Mg Tablet) 650 mg PO Q6H PRN PRN Reason: Pain, Mild (Pain Scale 1-3), fever or headache Amlodipine Besylate (Amlodipine Besylate 2.5 Mg Tablet) 7.5 mg PO BEDTIME [facility]; Protocol Last Admin: 09/01/24 20:53 Dose: 7.5 mg Documented By: ERNESTO Aspirin (Aspirin Enteric Coated 81 Mg Tablet.) 81 mg PO DAILY [facility] Last Admin: 09/02/24 08:41 Dose: 81 mg Documented By: MACIE Atorvastatin Calcium (Atorvastatin Calcium 40 Mg Tablet) 40 mg PO DAILY [facility] Last Admin: 09/02/24 08:41 Dose: 40 mg Documented By: MACIE Calcium Carbonate (Calcium Carbonate 750 Mg Tab.Chew) 750 mg PO Q4H PRN PRN Reason: Heartburn Calcium Carbonate (Calcium Carbonate 750 Mg Tab.Chew) 750 mg PO Q4H PRN PRN Reason: Heartburn Clopidogrel Bisulfate (Clopidogrel Bisulfate 75 Mg Tablet) 75 mg PO DAILY [facility] Last Admin: 09/02/24 08:41 Dose: 75 mg Documented By: MACIE Cyanocobalamin (Cyanocobalamin (Vitamin B-12) 1,000 Mcg Tablet) 1,000 mcg PO DAILY [facility] Last Admin: 09/02/24 08:41 Dose: 1,000 mcg Documented By: MACIE Hydromorphone HCl (Hydromorphone Hcl 1 Mg/Ml Syringe) 0.5 mg IVPUSH Q4H PRN; Protocol PRN Reason: Pain, Severe (Pain Scale 7-10) Dextrose/Sodium Chloride (D51/2ns) 1,000 mls @ 100 mls/hr IVCONT .Q10H [facility] Last Admin: 09/02/24 05:57 Dose: 100 mls/hr Documented By: CASTILAnushka Levetiracetam (Levetiracetam 250 Mg Tablet) 250 mg PO BID [facility] Last Admin: 09/02/24 08:41 Dose: 250 mg Documented By: MCAIE Magnesium Hydroxide (Milk Of Magnesia 30 Ml Oral.Susp) 30 ml PO DAILY PRN PRN Reason: Constipation Magnesium Hydroxide (Milk Of Magnesia 30 Ml Oral.Susp) 30 ml PO DAILY PRN PRN Reason: Constipation Melatonin (Melatonin 3 Mg Tablet) 6 mg PO BEDTIME PRN PRN Reason: Insomnia Melatonin (Melatonin 3 Mg Tablet) 6 mg PO BEDTIME PRN PRN Reason: Insomnia Metoprolol Tartrate (Metoprolol Tartrate 12.5 Mg Halftab) 12.5 mg PO DAILY [facility]; Protocol Last Admin: 09/02/24 08:41 Dose: 12.5 mg Documented By: MACIE Ondansetron HCl (Ondansetron Hcl 4 Mg/2 Ml Vial) 4 mg IVPUSH Q8H PRN PRN Reason: Nausea and Vomiting Sodium Chloride (0.9 % Sodium Chloride Flush 3 Ml Syringe) 3 ml IVFLUSH QSHIFT [facility] Last Admin: 09/02/24 08:41 Dose: 3 ml Documented By: MACIE Temazepam (Temazepam 15 Mg Capsule) 15 mg PO BEDTIME PRN PRN Reason: Insomnia Labs 09/01/24 04:15 09/01/24 04:15 Labs: Laboratory Results - last 24 hr 09/02/24 07:28 POC Glucose 106 Assessment and Plan (1) Small bowel obstruction: Status: Acute Plan Patient is an 89-year-old male with a PMH significant for CAD s/p RCA stenting 10/2023, carotid stenosis s/p bilateral endarterectomies, prostate cancer s/p radiation, rectal cancer s/p resection, bladder neck obstruction, recurrent SBOs, post-operative paroxysmal AFib not on anticoagulation, and TORRES not on CPAP. Initially presented to the ED for gradually worsening abdominal pain since last night. CT of abdomen and pelvis found small bowel obstruction with transition point in right pelvis, distal ileum with associated edema. SBO Passing gas but no bowel movement General surgery to start clears today CAD/HLD Continue aspirin, clopidogrel, statin Paroxysmal AFib Not on anticoagulation Continue metoprolol tomorrow Seizure disorder Continue Anurag, to follow up with Neurology in August HTN start amlodipine TORRES Not on CPAP Diet-controlled type 2 diabetes Diabetic diet once diet advanced Thank you for allowing us to participate in the care of this patient. We will continue to follow along with you as needed Quality Stroke Does the patient have a stroke diagnosis?: No VTE Prior VTE?: No VTE Risk Level:: Surgical - low VTE Device Contraindication: N/A - Device Ordered VTE Drug Contraindication: Treatment Not Indicated
--- NOTE | 2024-09-02 13:20 | MHC.CM.PN ---
Per MD rounds no discharge today. S/P Resection DX SBO. Patient has been started on clears. DP home with family support. His Gran-dtr will provide transportation home.
[2024-09-02 15:30] VITALS: BP 138/60; PULSE 58; RESP 17; TEMP 36.4; O2SAT 97
[2024-09-02 19:32] VITALS: BP 171/68; PULSE 73; RESP 16; TEMP 36.4; O2SAT 99
[2024-09-02 20:30] VITALS: BP 144/67
[2024-09-02] MEDS: amLODIPine Besylate 2.5 MG TABLET 7.5 MG PO (20:31)
[2024-09-03] MEDS: 0.9 % Sodium Chloride Flush 3 ML SYRINGE IVFLUSH ×3 (00:53→17:30)
[2024-09-03 03:35] VITALS: BP 100/54; PULSE 64; RESP 16; TEMP 36.2; O2SAT 97
[2024-09-03 07:57] VITALS: BP 135/70; PULSE 65; RESP 17; TEMP 36.3; O2SAT 94
[2024-09-03] MEDS: Clopidogrel Bisulfate 75 MG TABLET PO (08:48)
[2024-09-03] MEDS: levETIRAcetam 250 MG TABLET PO ×2 (08:48→20:35)
[2024-09-03] MEDS: Metoprolol Tartrate 12.5 MG HALFTAB PO (08:48)
[2024-09-03] MEDS: Cyanocobalamin (Vitamin B-12) 1,000 MCG TABLET 1000 MCG PO (08:48)
[2024-09-03] MEDS: Aspirin Enteric Coated 81 MG TABLET.DR PO (08:48)
[2024-09-03] MEDS: Atorvastatin Calcium 40 MG TABLET PO (08:48)
--- NOTE | 2024-09-03 09:47 | P.PNGS_ITS ---
Subjective Subjective Date of Service: 09/03/24 Interval history: Tolerating solid diet. Abdomen sore but denies pain. Passing flatus but no BM since the other day which was small and liquid. Would like to have BM prior to dc. Physical Exam 2 Vital Signs: Vital Signs: Last Vital Signs Temp 97.4 F 09/03/24 07:57 Pulse 65 09/03/24 07:57 Resp 17 09/03/24 07:57 BP 135/70 09/03/24 07:57 Pulse Ox 94 09/03/24 07:57 O2 Del Method Room Air 09/03/24 07:57 BMI result Body Mass Index 24.5 Const: General: comfortable, no acute distress and alert O rientation/consciousness: patient oriented x3 GI: Inspection: Yes normal to inspection and No distended Palpation (GI): S oft to palpation, nontender and no guarding Skin: General skin exam: no rashes or lesions noted Neuro: General: patient oriented x3 and moves all extremities Objective Data Active Medications Acetaminophen (Acetaminophen 325 Mg Tablet) 650 mg PO Q6H PRN PRN Reason: Pain, Mild (Pain Scale 1-3), fever or headache Acetaminophen (Acetaminophen 325 Mg Tablet) 650 mg PO Q6H PRN PRN Reason: Pain, Mild (Pain Scale 1-3), fever or headache Amlodipine Besylate (Amlodipine Besylate 2.5 Mg Tablet) 7.5 mg PO BEDTIME [facility]; Protocol Last Admin: 09/02/24 20:31 Dose: 7.5 mg Documented By: SAHARA Aspirin (Aspirin Enteric Coated 81 Mg Tablet.) 81 mg PO DAILY [facility] Last Admin: 09/03/24 08:48 Dose: 81 mg Documented By: CINDA Atorvastatin Calcium (Atorvastatin Calcium 40 Mg Tablet) 40 mg PO DAILY [facility] Last Admin: 09/03/24 08:48 Dose: 40 mg Documented By: CINDA Calcium Carbonate (Calcium Carbonate 750 Mg Tab.Chew) 750 mg PO Q4H PRN PRN Reason: Heartburn Calcium Carbonate (Calcium Carbonate 750 Mg Tab.Chew) 750 mg PO Q4H PRN PRN Reason: Heartburn Clopidogrel Bisulfate (Clopidogrel Bisulfate 75 Mg Tablet) 75 mg PO DAILY [facility] Last Admin: 09/03/24 08:48 Dose: 75 mg Documented By: CINDA Cyanocobalamin (Cyanocobalamin (Vitamin B-12) 1,000 Mcg Tablet) 1,000 mcg PO DAILY [facility] Last Admin: 09/03/24 08:48 Dose: 1,000 mcg Documented By: CINDA Hydromorphone HCl (Hydromorphone Hcl 1 Mg/Ml Syringe) 0.5 mg IVPUSH Q4H PRN; Protocol PRN Reason: Pain, Severe (Pain Scale 7-10) Levetiracetam (Levetiracetam 250 Mg Tablet) 250 mg PO BID [facility] Last Admin: 09/03/24 08:48 Dose: 250 mg Documented By: CINDA Magnesium Hydroxide (Milk Of Magnesia 30 Ml Oral.Susp) 30 ml PO DAILY PRN PRN Reason: Constipation Magnesium Hydroxide (Milk Of Magnesia 30 Ml Oral.Susp) 30 ml PO DAILY PRN PRN Reason: Constipation Melatonin (Melatonin 3 Mg Tablet) 6 mg PO BEDTIME PRN PRN Reason: Insomnia Melatonin (Melatonin 3 Mg Tablet) 6 mg PO BEDTIME PRN PRN Reason: Insomnia Metoprolol Tartrate (Metoprolol Tartrate 12.5 Mg Halftab) 12.5 mg PO DAILY [facility]; Protocol Last Admin: 09/03/24 08:48 Dose: 12.5 mg Documented By: CINDA Ondansetron HCl (Ondansetron Hcl 4 Mg/2 Ml Vial) 4 mg IVPUSH Q8H PRN PRN Reason: Nausea and Vomiting Sodium Chloride (0.9 % Sodium Chloride Flush 3 Ml Syringe) 3 ml IVFLUSH QSHIFT [facility] Last Admin: 09/03/24 08:47 Dose: 3 ml Documented By: CINDA Temazepam (Temazepam 15 Mg Capsule) 15 mg PO BEDTIME PRN PRN Reason: Insomnia Labs 09/01/24 04:15 09/01/24 04:15 Procedures Date of Service Date of Service: 09/03/24 Progress Note: A&P Assessment and plan (1) Small bowel obstruction: Status: Acute Plan Resolved. Tolerating solid diet, abdomen benign. Will order bowel regimen, increase activity. Hopefully home later today. Time Spent With Patient Time: Total time managing care of this patient today ____ minutes. Quality Stroke Does the patient have a stroke diagnosis?: No VTE Prior VTE?: No VTE Risk Level:: Surgical - low VTE Device Contraindication: N/A - Device Ordered VTE Drug Contraindication: Treatment Not Indicated
[2024-09-03] MEDS: Docusate Sodium 100 MG CAPSULE PO ×2 (09:54→20:35)
[2024-09-03] MEDS: Lactulose 20 GM/30 ML SOLUTION PO ×2 (09:54→20:35)
[2024-09-03 15:14] VITALS: BP 105/59; PULSE 56; RESP 19; TEMP 36.4; O2SAT 95
--- NOTE | 2024-09-03 17:13 | P.CDIM_ITS ---
PROVIDER RESPONSE TEXT: To clarify, the appropriate diagnosis supported by the clinical indicators: Small bowel obstruction: Partial SBO most likely secondary to adhesion QUERY TEXT: PHYSICIAN'S DOCUMENTATION REQUEST Date of Query: 09/03/2024 08:26 AM EST Patient Name: Geoffrey Bone Admit Date: 08/31/2024 Dear Zach Cat MD, A review of the medical record indicates additional documentation may be needed. Please review below and update the documentation accordingly. Clinical Indicators: Surgery progress notes: SBO, evaluation of abdominal bloating and pain. Hospitalists consult note 08/31 - Ct of abdomen and pelvis found small bowel obstruction with transiti on point in right pelvis, distal ileum with associated edema. Patient states he has had as many as 10 prior episodes of SBO which usually resolve on their own. Surgery note 09/02 - Denies abdominal pain, had BM, would like to eat. AXR shows contrast in right colon, now with evidence of GI function and symptoms resolved. Based on the above, could you clarify any further specifics to the noted SBO: Small bowel obstruction partial, incomplete, complete, postoperative, due to specified cause etc. Other (explain) Clinically unable to determine (explain) Thank you, Jossy Colindres, CCS, CDIS Use of terms such as suspected, likely, concern for, or probable (associated with a specific diagnosi s that is being evaluated, monitored, or treated as if it exists) are acceptable and can be coded in the inpatient se tting, when documented at the time of discharge. Please use your independent medical judgment in providing your response. THIS QUERY IS PART OF THE PERMANENT MEDICAL RECORD
[2024-09-03 19:34] VITALS: BP 154/72; PULSE 72; RESP 18; TEMP 36.6; O2SAT 100
[2024-09-03] MEDS: amLODIPine Besylate 2.5 MG TABLET 7.5 MG PO (20:34)
[2024-09-04] VITALS (7 sets, daily range): BP systolic 132–175; BP diastolic 64–83; PULSE 62–78; RESP 16–18; TEMP 36.4–37.1; O2SAT 92–98
--- NOTE | 2024-09-04 01:12 | PC.NURSE ---
Addendum entered by Belle Montesinos RN 09/04/24 04:22: orthostatic VS Layin/70 HR:65 Sittin/78 HR:78 Standin/75 HR: 71 Original Note: 0050; Patient complained of being dizzy and not feeling himself and wanted help to get oob to bathroom. After standing patient he was unable to take a step and very unsteady on his feel eventhough he was independent in the room prior. Sat patient down on bed and performed a neuro check; no facial droop/ slurred speech noted, manager knowledge strength normal, pupils reactive. Patient stated this has happened to him before. MD Link made aware of situation. Vital signs obtained, and patient on bedrest for now.
[2024-09-04] MEDS: ondansetron HCL 4 MG/2 ML VIAL IVPUSH (01:58)
--- NOTE | 2024-09-04 08:22 | PM.PNGS ---
Subjective Subjective Date of Service: 09/04/24 <Nayeli Prado PA-C - Last Filed: 09/04/24 08:25> 09/04/24 <Marco A Prado MD - Last Filed: 09/04/24 12:39> Interval history: Had a few BMs overnight. Also had an episode of dizziness upon standing, orthostatics negative. Has hx of CVA, carotic stenosis. Asking for home PT. <Nayeli Prado PA-C - Last Filed: 09/04/24 08:25> Physical Exam Vital Signs: Vital Signs: Last Vital Signs Temp 98.1 F 09/04/24 07:19 Pulse 68 09/04/24 07:19 Resp 16 09/04/24 07:19 BP 132/64 09/04/24 07:19 Pulse Ox 96 09/04/24 07:19 O2 Del Method Room Air 09/04/24 07:19 BMI result Body Mass Index 24.5 <Nayeli Prado PA-C - Last Filed: 09/04/24 08:25> Const: General: comfortable, no acute distress and alert <Nayeli Prado PA-C - Last Filed: 09/04/24 08:25> Orientation/consciousness: patient oriented x3 <MARTHA Lopez Last Filed: 09/04/24 08:25> Resp: Effort & Inspection: normal respiratory effort <Nayeli Prado PA-C - Last Filed: 09/04/24 08:25> GI: Inspection: No distended <Nayeli Prado PA-C - Last Filed: 09/04/24 08:25> Palpation (GI): Soft to palpation and nontender <Nayeli Prado PA-C - Last Filed: 09/04/24 08:25> Percussion: Yes normal to percussion <MARTHA Lopez Last Filed: 09/04/24 08:25> Skin: General skin exam: no rashes or lesions noted <MARTHA Lopez Last Filed: 09/04/24 08:25> Neuro: General: patient oriented x3 and moves all extremities <MARTHA Lopez Last Filed: 09/04/24 08:25> Objective Data Active Medications Acetaminophen (Acetaminophen 325 Mg Tablet) 650 mg PO Q6H PRN PRN Reason: Pain, Mild (Pain Scale 1-3), fever or headache Acetaminophen (Acetaminophen 325 Mg Tablet) 650 mg PO Q6H PRN PRN Reason: Pain, Mild (Pain Scale 1-3), fever or headache Amlodipine Besylate (Amlodipine Besylate 2.5 Mg Tablet) 7.5 mg PO BEDTIME [facility]; Protocol Last Admin: 09/03/24 20:34 Dose: 7.5 mg Documented By: SAHARA Aspirin (Aspirin Enteric Coated 81 Mg Tablet.Dr) 81 mg PO DAILY [facility] Last Admin: 09/03/24 08:48 Dose: 81 mg Documented By: CINDA Atorvastatin Calcium (Atorvastatin Calcium 40 Mg Tablet) 40 mg PO DAILY [facility] Last Admin: 09/03/24 08:48 Dose: 40 mg Documented By: CINDA Calcium Carbonate (Calcium Carbonate 750 Mg Tab.Chew) 750 mg PO Q4H PRN PRN Reason: Heartburn Calcium Carbonate (Calcium Carbonate 750 Mg Tab.Chew) 750 mg PO Q4H PRN PRN Reason: Heartburn Clopidogrel Bisulfate (Clopidogrel Bisulfate 75 Mg Tablet) 75 mg PO DAILY [facility] Last Admin: 09/03/24 08:48 Dose: 75 mg Documented By: CINDA Cyanocobalamin (Cyanocobalamin (Vitamin B-12) 1,000 Mcg Tablet) 1,000 mcg PO DAILY [facility] Last Admin: 09/03/24 08:48 Dose: 1,000 mcg Documented By: CINDA Docusate Sodium (Docusate Sodium 100 Mg Capsule) 100 mg PO BID [facility] Last Admin: 09/03/24 20:35 Dose: 100 mg Documented By: SAHARA Hydromorphone HCl (Hydromorphone Hcl 1 Mg/Ml Syringe) 0.5 mg IVPUSH Q4H PRN; Protocol PRN Reason: Pain, Severe (Pain Scale 7-10) Lactulose (Lactulose 20 Gm/30 Ml Solution) 20 gm PO BID [facility] Last Admin: 09/03/24 20:35 Dose: 20 gm Documented By: SAHARA Levetiracetam (Levetiracetam 250 Mg Tablet) 250 mg PO BID [facility] Last Admin: 09/03/24 20:35 Dose: 250 mg Documented By: SAHARA Magnesium Hydroxide (Milk Of Magnesia 30 Ml Oral.Susp) 30 ml PO DAILY PRN PRN Reason: Constipation Magnesium Hydroxide (Milk Of Magnesia 30 Ml Oral.Susp) 30 ml PO DAILY PRN PRN Reason: Constipation Melatonin (Melatonin 3 Mg Tablet) 6 mg PO BEDTIME PRN PRN Reason: Insomnia Melatonin (Melatonin 3 Mg Tablet) 6 mg PO BEDTIME PRN PRN Reason: Insomnia Metoprolol Tartrate (Metoprolol Tartrate 12.5 Mg Halftab) 12.5 mg PO DAILY [facility]; Protocol Last Admin: 09/03/24 08:48 Dose: 12.5 mg Documented By: CINDA Ondansetron HCl (Ondansetron Hcl 4 Mg/2 Ml Vial) 4 mg IVPUSH Q8H PRN PRN Reason: Nausea and Vomiting Last Admin: 09/04/24 01:58 Dose: 4 mg Documented By: SAHARA Sodium Chloride (0.9 % Sodium Chloride Flush 3 Ml Syringe) 3 ml IVFSH [facility] Last Admin: 09/04/24 00:00 Dose: 3 ml Documented By: SAHARA Temazepam (Temazepam 15 Mg Capsule) 15 mg PO BEDTIME PRN PRN Reason: Insomnia <Nayeli Prado PA-C - Last Filed: 09/04/24 08:25> Labs CBC & Chem 7: 09/01/24 04:15 09/01/24 04:15 <Nayeli Prado PA-C - Last Filed: 09/04/24 08:25> Procedures Date of Service Date of Service: 09/04/24 <Nayeli Prado PA-C - Last Filed: 09/04/24 08:25> 09/04/24 <Marco A Prado MD - Last Filed: 09/04/24 12:39> Progress Note: A&P Assessment and plan (1) Small bowel obstruction: Status: Acute <Nayeli Prado PA-C - Last Filed: 09/04/24 08:25> Assessment and Plan: Passing flatus Has had BMs Tolerating regular diet abdomen soft, benign However, complained of dizziness Plan to have this evaluate patient in hold off on discharge for today Seen and examined independently <Marco A Prado MD - Last Filed: 09/04/24 12:39> Assessment and Plan: SBO resolved. Diet as tolerated. Will ask hospitalists to resee regarding dizziness. PT eval for possible home PT. Hopefully home later today if medically stable. <Nayeli Prado PA-C - Last Filed: 09/04/24 08:25> Time Spent With Patient Time: Total time managing care of this patient today ____ minutes. <Nayeli Prado PA-C - Last Filed: 09/04/24 08:25> Quality Stroke Does the patient have a stroke diagnosis?: No <Nayeli Prado PA-C - Last Filed: 09/04/24 08:25> VTE Prior VTE?: No <Nayeli Prado PA-C - Last Filed: 09/04/24 08:25> VTE Risk Level:: Surgical - low <Nayeli Prado PA-C - Last Filed: 09/04/24 08:25> VTE Device Contraindication: N/A - Device Ordered <Nayeli Prado PA-C - Last Filed: 09/04/24 08:25> VTE Drug Contraindication: Treatment Not Indicated <Nayeli Prado PA-C - Last Filed: 09/04/24 08:25>
[2024-09-04] MEDS: Atorvastatin Calcium 40 MG TABLET PO (09:12)
[2024-09-04] MEDS: Clopidogrel Bisulfate 75 MG TABLET PO (09:12)
[2024-09-04] MEDS: Lactulose 20 GM/30 ML SOLUTION PO ×2 (09:12→20:32)
[2024-09-04] MEDS: Cyanocobalamin (Vitamin B-12) 1,000 MCG TABLET 1000 MCG PO (09:12)
[2024-09-04] MEDS: Metoprolol Tartrate 12.5 MG HALFTAB PO (09:12)
[2024-09-04] MEDS: Aspirin Enteric Coated 81 MG TABLET.DR PO (09:12)
[2024-09-04] MEDS: Docusate Sodium 100 MG CAPSULE PO ×2 (09:13→20:32)
[2024-09-04] MEDS: levETIRAcetam 250 MG TABLET PO ×2 (09:13→20:32)
[2024-09-04] MEDS: 0.9 % Sodium Chloride Flush 3 ML SYRINGE IVFLUSH ×4 (09:15→20:32)
[2024-09-04] MEDS: amLODIPine Besylate 2.5 MG TABLET 7.5 MG PO (20:32)
[2024-09-05 03:54] VITALS: BP 139/65; PULSE 60; RESP 16; TEMP 36.9; O2SAT 96
[2024-09-05 08:19] VITALS: BP 148/68; PULSE 63; RESP 18; TEMP 36.1; O2SAT 96
[2024-09-05] MEDS: levETIRAcetam 250 MG TABLET PO (08:39)
[2024-09-05] MEDS: Metoprolol Tartrate 12.5 MG HALFTAB PO (08:39)
[2024-09-05] MEDS: Docusate Sodium 100 MG CAPSULE PO (08:39)
[2024-09-05] MEDS: Aspirin Enteric Coated 81 MG TABLET.DR PO (08:39)
[2024-09-05] MEDS: Atorvastatin Calcium 40 MG TABLET PO (08:39)
[2024-09-05] MEDS: Clopidogrel Bisulfate 75 MG TABLET PO (08:39)
[2024-09-05] MEDS: Cyanocobalamin (Vitamin B-12) 1,000 MCG TABLET 1000 MCG PO (08:39)
[2024-09-05] MEDS: Lactulose 20 GM/30 ML SOLUTION PO (08:40)
[2024-09-05] MEDS: 0.9 % Sodium Chloride Flush 3 ML SYRINGE IVFLUSH (08:40)
--- NOTE | 2024-09-05 10:26 | PM.PNGS ---
Subjective Subjective Date of Service: 09/05/24 Interval history: Feels better this morning. Denies abd pain. Had two good BMs last night. Tolerating solid diet. No further dizziness. Wants to go home. Physical Exam Vital Signs: Vital Signs: Last Vital Signs Temp 97.0 F 09/05/24 08:19 Pulse 63 09/05/24 08:19 Resp 18 09/05/24 08:19 BP 148/68 H 09/05/24 08:19 Pulse Ox 96 09/05/24 08:19 O2 Del Method Room Air 09/05/24 08:19 BMI result Body Mass Index 24.5 Const: General: comfortable, no acute distress and alert Orientation/consciousness: patient oriented x3 GI: Inspection: No distended Palpation (GI): Soft to palpation, nontender and no guarding Skin: General skin exam: no rashes or lesions noted Neuro: General: patient oriented x3 and moves all extremities Objective Data Active Medications Acetaminophen (Acetaminophen 325 Mg Tablet) 650 mg PO Q6H PRN PRN Reason: Pain, Mild (Pain Scale 1-3), fever or headache Acetaminophen (Acetaminophen 325 Mg Tablet) 650 mg PO Q6H PRN PRN Reason: Pain, Mild (Pain Scale 1-3), fever or headache Amlodipine Besylate (Amlodipine Besylate 2.5 Mg Tablet) 7.5 mg PO BEDTIME [facility]; Protocol Last Admin: 09/04/24 20:32 Dose: 7.5 mg Documented By: LEXX Aspirin (Aspirin Enteric Coated 81 Mg Tablet.) 81 mg PO DAILY [facility] Last Admin: 09/05/24 08:39 Dose: 81 mg Documented By: JUAN Atorvastatin Calcium (Atorvastatin Calcium 40 Mg Tablet) 40 mg PO DAILY [facility] Last Admin: 09/05/24 08:39 Dose: 40 mg Documented By: JUAN Calcium Carbonate (Calcium Carbonate 750 Mg Tab.Chew) 750 mg PO Q4H PRN PRN Reason: Heartburn Calcium Carbonate (Calcium Carbonate 750 Mg Tab.Chew) 750 mg PO Q4H PRN PRN Reason: Heartburn Clopidogrel Bisulfate (Clopidogrel Bisulfate 75 Mg Tablet) 75 mg PO DAILY [facility] Last Admin: 09/05/24 08:39 Dose: 75 mg Documented By: JUAN Cyanocobalamin (Cyanocobalamin (Vitamin B-12) 1,000 Mcg Tablet) 1,000 mcg PO DAILY [facility] Last Admin: 09/05/24 08:39 Dose: 1,000 mcg Documented By: JUAN Docusate Sodium (Docusate Sodium 100 Mg Capsule) 100 mg PO BID [facility] Last Admin: 09/05/24 08:39 Dose: 100 mg Documented By: JUAN Hydromorphone HCl (Hydromorphone Hcl 1 Mg/Ml Syringe) 0.5 mg IVPUSH Q4H PRN; Protocol PRN Reason: Pain, Severe (Pain Scale 7-10) Lactulose (Lactulose 20 Gm/30 Ml Solution) 20 gm PO BID [facility] Last Admin: 09/05/24 08:40 Dose: 20 gm Documented By: JUAN Levetiracetam (Levetiracetam 250 Mg Tablet) 250 mg PO BID [facility] Last Admin: 09/05/24 08:39 Dose: 250 mg Documented By: JUAN Magnesium Hydroxide (Milk Of Magnesia 30 Ml Oral.Susp) 30 ml PO DAILY PRN PRN Reason: Constipation Magnesium Hydroxide (Milk Of Magnesia 30 Ml Oral.Susp) 30 ml PO DAILY PRN PRN Reason: Constipation Melatonin (Melatonin 3 Mg Tablet) 6 mg PO BEDTIME PRN PRN Reason: Insomnia Melatonin (Melatonin 3 Mg Tablet) 6 mg PO BEDTIME PRN PRN Reason: Insomnia Metoprolol Tartrate (Metoprolol Tartrate 12.5 Mg Halftab) 12.5 mg PO DAILY [facility]; Protocol Last Admin: 09/05/24 08:39 Dose: 12.5 mg Documented By: JUAN Ondansetron HCl (Ondansetron Hcl 4 Mg/2 Ml Vial) 4 mg IVPUSH Q8H PRN PRN Reason: Nausea and Vomiting Last Admin: 09/04/24 01:58 Dose: 4 mg Documented By: TIA-ZADRTeto Sodium Chloride (0.9 % Sodium Chloride Flush 3 Ml Syringe) 3 ml IVFLUSH [facility] Last Admin: 09/05/24 08:40 Dose: 3 ml Documented By: JUAN Temazepam (Temazepam 15 Mg Capsule) 15 mg PO BEDTIME PRN PRN Reason: Insomnia Labs 09/01/24 04:15 09/01/24 04:15 Procedures Date of Service Date of Service: 09/05/24 Progress Note: A&P Assessment and plan (1) Small bowel obstruction: Status: Acute Plan Improved, feels well. Tolerating solid diet with good GI function. Abd benign. Stable for dc to home today. F/u with PCP regarding dizziness. Time Spent With Patient Time: Total time managing care of this patient today ____ minutes. Quality Stroke Does the patient have a stroke diagnosis?: No VTE Prior VTE?: No VTE Risk Level:: Surgical - low VTE Device Contraindication: N/A - Device Ordered VTE Drug Contraindication: Treatment Not Indicated
--- NOTE | 2024-09-05 10:37 | MHC.CM.PN ---
PT CLEARED TO DC HOME TODAY WITH NO SERVICES VIA FAMILY TRANSPORT
--- NOTE | 2024-09-05 14:53 | PM.DS ---
DS: Providers Provider Date of Service: 09/05/24 Date of admission: 08/31/24 17:06 Date of discharge: 09/05/24 Primary care physician: Pro Nunn MD Attending physician on admission: Zach Cat Consults: 08/31/24 15:21 Consult to Hospitalist Routine Comment: Consulting Provider: Hospitalist Reason For Exam: Multiple comorbidities. Recurrent small-bowel obs Attending physician on discharge: Zach Cat DS: Diagnosis Discharge Diagnosis (1) Small bowel obstruction: Status: Acute DS: Summary Hospital Course Hospital Course: HPI AT ADMISSION: Geoffrey Bone is a 89 year old male who has had multiple prior admissions of partial small bowel obstruction who presents here with a similar episode. He complains of abdominal pain and swelling and failure passes flatus and stool for the last at least 2 days. Patient as noted above has had several admissions for this and typically resolves within a few days. He has not had any vomiting or nausea. Patient states this is similar to his other bouts of this. He is not recall any unusual diets, new meds, recent foreign travel. Patient has had bowel surgery in the distant past. He has never had surgery for lysis of adhesions. Chart was reviewed and patient evaluated. Patient has a plethora of comorbidities and intercurrent medical problems. White count of 12. CT scan with oral contrast showed small bowel obstruction with transition point in the right pelvis, distal ileum. HOSPITAL COURSE: He was admitted to the surgical service for further treatment of the SBO. NG tube was held as he was not vomiting. He was kept NPO with sips, encourage incentive spirometry, serial labs and exams, IV hydration. Medical consultation regarding intercurrent medical problems. He had an uncomplicated hospital course. His abdominal symptoms resolved. F/u AXR showed contrast in the right colon. His diet was advanced slowly as tolerated from clears to solids. He began to pass flatus and was started on a bowel regimen. On the day of discharge, he was tolerating a solid diet without nausea, vomiting or abdominal pain. He was passing flatus and moving his bowels. He was ambulating without difficulty. His abdomen was benign and soft and nontender. He felt ready for discharge. He was discharged to home on 09/05/24 in stable condition. He is to follow up with his PCP. Status at Discharge Functional status at discharge: independent ambulation Overall status at discharge: patient is back to baseline Time Attestation Discharge Coordination Time (in mins): 30 Quality: Safe Use of Opioids Does Pt have an Active Cancer Diagnosis on the Problem List?: No Quality: Stroke Does the patient have a stroke diagnosis?: No Physical Exam Vital Signs: Vital Signs: Last Vital Signs Temp 97.0 F 09/05/24 08:19 Pulse 63 09/05/24 08:19 Resp 18 09/05/24 08:19 BP 148/68 H 09/05/24 08:19 Pulse Ox 96 09/05/24 08:19 O2 Del Method Room Air 09/05/24 08:19 BMI result Body Mass Index 24.5 Const: General: comfortable, no acute distress and alert Orientation/consciousness: patient oriented x3 GI: Inspection: No distended Palpation (GI): Soft to palpation and nontender Neuro: General: patient oriented x3 and moves all extremities DS: Data Data Completed and Pending Completed studies during hospitalization [Text1]: Procedures Dilation of Bladder Neck, Via Natural or Artificial Opening Endoscopic (04/01/24) Drainage of Bladder with Drainage Device, Via Natural or Artificial Opening Endoscopic (04/01/24) Extirpation of Matter from Left External Carotid Artery, Open Approach (12/02/23) Extirpation of Matter from Right Internal Carotid Artery, Open Approach (04/01/24) Extirpation of Matter from Right Neck Subcutaneous Tissue and Fascia, Open Approach (04/01/24) Insertion of Infusion Device into Superior Vena Cava, Percutaneous Approach (08/27/20) Supplement Left Internal Carotid Artery with Synthetic Substitute, Open Approach (12/02/23) Supplement Right Common Carotid Artery with Synthetic Substitute, Open Approach (04/01/24) Ultrasonography of Superior Vena Cava, Guidance (08/27/20) Discharge Plan Discharge Anticipated Discharge Date/Time: 09/03/24 10:46 Patient Disposition: Home, Self-Care Discharge Diagnosis: SBO Referrals: Po,Pro Adame MD [Primary Care Provider] - 1 Week Discharge Medications: Continued lactulose 10 gram/15 mL solution 30 ml PO DAILY PRN (Reason: for constipation) Qty: 946 0RF rosuvastatin 10 mg tablet 10 mg PO DAILY Qty: 90 3RF levetiracetam 250 mg tablet 250 mg PO BID 90 Days Qty: 180 0RF amlodipine 2.5 mg tablet 7.5 mg PO BEDTIME Qty: 270 3RF cyanocobalamin (vitamin B-12) 1,000 mcg Tablet 1,000 mcg PO DAILY aspirin 81 mg Tablet,Delayed Release (Dr/Ec) 81 mg PO DAILY docusate sodium 100 mg capsule 100 mg PO DAILY PRN (Reason: Constipation) metoprolol tartrate 25 mg tablet 12.5 mg PO DAILY clopidogrel 75 mg tablet 75 mg PO DAILY Qty: 90 3RF Discharge Orders: Discharge Order (Routine); Ordered 09/05/24 Ordered By: Nayeli Prado Diet: Advance to usual diet Activity on Discharge: As tolerated Stand Alone Forms: Patient Portal Discharge page Print Language: Bhutanese Activity Restrictions/Additional Instructions: Follow up with your PCP. Call Your Doctor If: ? ? -Your temperature exceeds 101.5? F? ? ? -You experience excessive pain or swelling ? ? -You have an unexpected reaction to medication ? ? -You experience continued vomiting/nausea Care Plan Goals: Return to baseline health and resume normal activities as tolerated. Health Concerns: SBO dizziness Plan of Treatment: Supportive Assessment: Improved Discharge Date/Time: 09/05/24 13:40
== END 2024-09-05 13:40 | disposition home or self-care (01) | DRG 390 ==
LOC: HO.ED 16:07 → HO.EDOVER 17:44 → HO.S3 09-01 07:56
PROVIDERS: Admitting Provider Surgery; Emergency Provider Emergency Medicine Emergency Medical Services; PCP Internal Medicine; Visit Provider Surgery
DX: K56.51 Intestinal adhesions [bands], with partial obstruction (principal); I25.10 Atherosclerotic heart disease of native coronary artery without angina pectoris; Z20.822 Contact with and (suspected) exposure to COVID-19; G47.33 Obstructive sleep apnea (adult) (pediatric); I10 Essential (primary) hypertension; E78.5 Hyperlipidemia, unspecified; I48.0 Paroxysmal atrial fibrillation; E11.9 Type 2 diabetes mellitus without complications; G40.909 Epilepsy, unspecified, not intractable, without status epilepticus; Z95.5 Presence of coronary angioplasty implant and graft; Z79.02 Long term (current) use of antithrombotics/antiplatelets; Z79.82 Long term (current) use of aspirin; Z79.899 Other long term (current) drug therapy
CPT/HCPCS: 0241U; 36415; 74018; 74177; 80053; 81003; 82947; 83605; 83690; 83735; 85025; 85730; 97116; 97162; 99285; J2270; J2405; Q9967

== ENCOUNTER → 2024-08-31 08:34 | Outpatient (BNV) | payer MEDICARE, OTHER, SELFPAY | PROVIDERS: Emergency Provider Emergency Medicine Emergency Medical Services; PCP Internal Medicine; Visit Provider Surgery | DX: K56.609 Unspecified intestinal obstruction, unspecified as to partial versus complete obstruction (principal) | CPT/HCPCS: 99222; 99232; 99238; 99499 ==

== ENCOUNTER 2024-08-31 17:06 | Outpatient (BNV) | payer MEDICARE, OTHER, SELFPAY | END 2024-09-02 06:00 | PROVIDERS: Admitting Provider Surgery; Emergency Provider Emergency Medicine Emergency Medical Services; PCP Internal Medicine; Visit Provider Radiology Diagnostic Radiology | DX: K56.609 Unspecified intestinal obstruction, unspecified as to partial versus complete obstruction (principal) | CPT/HCPCS: 74018 ==

== ENCOUNTER → 2024-08-31 17:06 | Outpatient (BNV) | payer MEDICARE, OTHER, SELFPAY | PROVIDERS: Admitting Provider Surgery; Emergency Provider Emergency Medicine Emergency Medical Services; PCP Internal Medicine; Visit Provider Student in an Organized Health Care Education/Training Program | DX: I48.91 Unspecified atrial fibrillation (principal) | CPT/HCPCS: 99222; 99231 ==

== ENCOUNTER 2024-09-11 14:51 | Outpatient (AMB) | payer MEDICARE, OTHER, SELFPAY ==
[2024-09-11 14:53] VITALS: BP 98/64; PULSE 74; O2SAT 99; BMI 23.5
--- NOTE | 2024-09-11 14:53 | A.OFFPC_ITS ---
Vital Signs 09/11/24 14:53 Height 6 ft 2 in Weight 183 lb 2 oz BMI 23.5 BP 98/64 Blood Pressure Location Lt brachial Position Sitting Pulse 74 Pulse Source Pulse Oximeter Pulse Oximetry (%) 99 Oxygen Delivery Method Room Air Intake Visit Reasons: 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[employer] Vehicle Required: No Accompanied by: Self / Same As Patient Allergies diphenhydramine [From Benadryl] Adverse Reaction (Intermediate, Verified 09/11/24 14:54) Hallucinations Tobacco use date assessed: 09/11/24 Fall risk assessment: 2 + Falls in past year Last assessed Fall Risk: 09/11/24 Dental Screening Dental Screen Date: 09/11/24 Did you have a dental visit in the last 12 months?: Yes Did you have a dental problem in the last 6 months where you did not have access to dental care?: No Was dental information given to patient?: Patient has dentist HPI HPI Comments History of Present Illness Details 89 y/o male patient who presents for HDF . He was admitted at [facility] on 09/01/24 and discharged home on 09/02/24 due to SBO and hypotension. He is accompanied by daughter today who has a lot of questions. Pt sees a [facility] [address] for his heart conditions, next appointment Oct 2024. Daughter is worried that Pt's BP readings have been very low lately, and wondering if he still needs to take HTN medications. He is currently taking Amlodipine 2.5 mg ( takes 3 tabs at once for a total of 7.5 mg daily) and Metoprolol 25 mg BID. Pt had a fall at home in the beginning of August due to lower legs weakness. Daughter believes this could be due to Hypotension. Advised daughter to purchase a BP monitoring Device for home monitoring. Advised to hold Medications if Blood low. Pt has an appointment with PCP next week - advised to bring a BP Log for review. Daughter wants patient to have Physical therapy to help improve weakness on the LE. [facility] Medical History CAD (coronary artery disease) Afib CVA (cerebral vascular accident) Self-catheterizes urinary bladder History of trigger finger Arthritis Preoperative cardiovascular examination Symptomatic stenosis of left carotid artery Rectal cancer Bladder neck contracture GERD (gastroesophageal reflux disease) Urinary incontinence Obstructive sleep apnea Coronary artery disease Type 2 diabetes mellitus with hyperglycemia Small bowel obstruction Erectile dysfunction Overweight (BMI 25.0-29.9) Peripheral vascular disease Prostate cancer Hematuria Constipation BPH (benign prostatic hyperplasia) Prostate cancer Colon cancer Dysuria Hyperlipidemia, unspecified Essential hypertension Surgical History History of left-sided carotid endarterectomy History of coronary artery stent placement History of exploratory laparotomy History of carpal tunnel release History of prostate surgery (~2017) History of bladder surgery (~01/04/18) History of colectomy History of appendectomy Family History Father Pancreatic cancer Mother No problems noted. Brother Liver cancer Social History Household Members: Children Household Members Other:: Granddaughter Housing: House Are you a primary healthcare or medical to a significant other at home: No Do you presently have visiting nurse or other home services: No Alcohol intake: never Patient Tobacco Use Status: Never used Tobacco Tobacco use type: Cigarette e-Cigarette/Vaping Use: Never Used Second Hand Smoke Exposure: No Advance Directives Date on File: 09/29/20 service: No Current occupational status: retired Cognitive needs: Yes (cane) Hearing needs: Yes (hearing aide) Vision needs: Yes (glasses) Questionnaire PHQ-9 Over the last 2 weeks, how often have you been bothered by any of the following problems? 1. Little interest or pleasure in doing things: not at all 2. Feeling down, depressed, or hopeless: not at all 3. Trouble falling or staying asleep, or sleeping too much: not at all 4. Feeling tired or having little energy: not at all 5. Poor appetite or overeating: not at all 6. Feeling bad about yourself - or that you are a failure or have let yourself or your family down: not at all 7. Trouble concentrating on things, such as reading the newspaper or watching television: not at all 8. Moving or speaking so slowly that other people could have noticed. Or the opposite - being so fidgety or restless that you have been moving around a lot more than usual: not at all 9. Thoughts that you would be better off or of hurting yourself in some way: not at all Total score: 0 Depression Screening Interpretation: Negative Depression Screening Done: Yes Source: Developed by Drs. Chaim Escalera, Heriberto Hernández and colleagues, with an educational marycarmen from [employer]. Thrive Questionnaire Date Thrive assessed: 09/11/24 I am a: Patient What is your living situation today?: I have a steady place to live Within the past 12 months, did the food you bought not last and you didn't have the money to get more?: Never true Within the past 12 months, did you worry whether your food would run out before you got money to buy more?: Never true Do you have trouble paying for medicines?: No Do you have trouble getting transportation to medical appointments?: No Do you have trouble paying your heating and electricity bill?: No Do you have trouble taking care of your child, family member or friend?: No Do you have trouble with day-to-day activities such as bathing, preparing meals, shopping, managing finances, etc.?: No Are you currently unemployed and looking for a job?: No Are you interested in more education?: No Please select the resources that you would like help with: None Currently or been in a relationship where the following occur: No concerns re ported THRIVE Score: 0 AUDIT C Alcohol Use Questionnaire (AUDIT-C) 1. How often do you have a drink containing alcohol?: Never Total Score: 0 NALINI-7 AMB Questionnaire NALINI-7 Date NALINI - 7 assessed: 09/11/24 Feeling nervous, anxious, or on edge: 0 = Not at all Not being able to stop or control worryin = Not at all Worrying too much about different things: 0 = Not at all Trouble relaxin = Not at all Being so restless that it is hard to sit still: 0 = Not at all Becoming easily annoyed or irritable: 0 = Not at all Feeling afraid as if something awful might happen: 0 = Not at all Total NALINI-7 score (0-4 normal; 5-9 mild; 10-14 moderate; 15-21 severe): 0 Source: Developed by Angy Mendez Kurt Kroenke and colleagues, with an educational marycarmen from [employer]. Review of Systems Const All systems reviewed & are unremarkable except as noted in HPI and below Physical exam (Primary Care) Vital Signs: Last Vital Signs Pulse 74 09/11/24 14:53 BP 98/64 09/11/24 14:53 Pulse Ox 99 09/11/24 14:53 Oxygen Delivery Method Room Air 09/11/24 14:53 BMI result Body Mass Index 23.5 Tobacco/Smoking Status: Tobacco use Status Tobacco use date assessed 09/11/24 09/11/24 14:57 Patient Tobacco Use Status Never used Tobacco 09/11/24 14:57 Tobacco use type Cigarette 09/11/24 14:57 e-Cigarette/Vaping Use Never Used 09/11/24 14:57 PHQ-9: PHQ-9 Score PHQ-9: Total score 0 09/11/24 14:57 Depression Screening Interpretation: Negative Thrive Assessment: Date of Thrive Assessment Date Thrive assessed 09/11/24 09/11/24 14:57 Currently or been in a relationship where the following occur: No concerns reported Const General: no acute distress Nutritional Appearance: overweight Orientation/consciousness: patient oriented x3 Resp Effort & Inspection: normal respiratory effort Auscultation: clear to auscultation bilaterally Cardio Heart sounds: S1 normal heart sound present and S2 normal heart sound present Neuro General: patient oriented x3, gait normal and moves all extremities Motor exam (neuro): 5/5 motor strength present throughout Extrem General: Yes full ROM and Yes capillary refill normal Psych Speech and movement: Normal speech and movement present Coding Level of Care Code Est Pt Level 4 (08048) Diagnoses Generalized abdominal pain R10.84 Abdominal location: generalized Small bowel obstruction K56.609 Hypotension, unspecified hypotension type I95.9 Hypotension type: unspecified hypotension type Weakness of both lower extremities R29.898 Time Spent (min) 20 Assessment & Plan Assessment & Plan (1) Abdominal pain: Code(s): R10.9 - Unspecified abdominal pain Category: Medical Qualifiers: Abdominal location: generalized Qualified Code(s): R10.84 - Generalized abdominal pain Plan: SBO, no need for surgery at this time. Currently on laxatives and stool softeners. (2) Small bowel obstruction: Code(s): K56.609 - Unspecified intestinal obstruction, unspecified as to partial versus complete obstruction Category: Medical Plan: Stable, no need for surgery. Currently on laxatives and stool softeners. (3) Hypotension: Code(s): I95.9 - Hypotension, unspecified Category: Medical Qualifiers: Hypotension type: unspecified hypotension type Qualified Code(s): I95.9 - Hypotension, unspecified Plan: Ordered BP monitoring device Pt to check BP at home and keep Log Pt to hold medications, if BP low. F/u with both PCP and Cardiology. (4) Weakness of both lower extremities: Code(s): R29.898 - Other symptoms and signs involving the musculoskeletal system Plan: Ordered Physical therapy. Medications: New blood pressure monitor As directed ICD: I95.9 MEDIUM ADULT SIZE CUFF PATIENT ON MEDICATIONS FOR HTN, CURRENTLY HAS LOW BP READINGS. 1 ea 0RF HYPOTENSION ON MEDICATIONS I95.9 - Hypotension, unspecified
== END 2024-09-11 15:32 | disposition home or self-care (01) ==
PROVIDERS: PCP Internal Medicine; Visit Provider Nurse Practitioner Family
DX: R10.84 Generalized abdominal pain (principal); K56.609 Unspecified intestinal obstruction, unspecified as to partial versus complete obstruction; I95.9 Hypotension, unspecified; R29.898 Other symptoms and signs involving the musculoskeletal system

== ENCOUNTER → 2024-09-11 14:51 | Outpatient (BNVA) | payer MEDICARE, OTHER, SELFPAY | PROVIDERS: PCP Internal Medicine; Visit Provider Nurse Practitioner Family | DX: R10.84 Generalized abdominal pain (principal); K56.609 Unspecified intestinal obstruction, unspecified as to partial versus complete obstruction; I95.9 Hypotension, unspecified; R29.898 Other symptoms and signs involving the musculoskeletal system | CPT/HCPCS: 96127; 99212 ==

== ENCOUNTER 2024-09-16 10:32 | Outpatient (AMB) | payer MEDICARE, OTHER, SELFPAY ==
--- NOTE | 2024-09-16 10:33 | MHC.OFFVIS ---
Vital Signs 09/16/24 10:34 Height 6 ft 2 in Weight 182 lb 15.739 oz BMI 23.5 BP 106/60 Blood Pressure Location Lt brachial Position Sitting Pulse 78 Pulse Source Pulse Oximeter Intake Visit Reasons: 6m follow up Allergies diphenhydramine [From Benadryl] Adverse Reaction (Intermediate, Verified 09/11/24 14:54) Hallucinations Medication List - Last Reconciled 09/16/24 by Sean Pian MD amlodipine 5 mg PO BEDTIME aspirin 81 mg PO DAILY blood pressure monitor As directed ICD: I95.9 MEDIUM ADULT SIZE CUFF PATIENT ON MEDICATIONS FOR HTN, CURRENTLY HAS LOW BP READINGS. clopidogrel 75 mg PO DAILY cyanocobalamin (vitamin B-12) 1,000 mcg PO DAILY docusate sodium 100 mg PO DAILY PRN lactulose 30 mL PO DAILY PRN levetiracetam 250 mg PO BID 90 days rosuvastatin 10 mg PO DAILY HPI Comments Details: Geoffrey returns for follow-up. In 09/2023, he was in [place] when he had stroke-like symptoms. Then he returned back to [place] and saw vascular surgery. He underwent cardiac catheterization as part of preoperative workup. Detected to have severe right coronary artery stenosis for which he underwent PCI. Subsequently, had carotid surgery as well and that was uneventful. Recently, he has been feeling generally weak and fatigued and that apparently led to hospitalization at [facility]. Based on review of records, it was felt that symptoms were related to generalized weakness/gait instability and there was no acute event. Daughter is however concerned that the blood pressure is lowish and that may be part of the problem. [facility] Medical History CAD (coronary artery disease) Afib CVA (cerebral vascular accident) Self-catheterizes urinary bladder History of trigger finger Arthritis Preoperative cardiovascular examination Symptomatic stenosis of left carotid artery Rectal cancer Bladder neck contracture GERD (gastroesophageal reflux disease) Urinary incontinence Obstructive sleep apnea Coronary artery disease Type 2 diabetes mellitus with hyperglycemia Small bowel obstruction Erectile dysfunction Overweight (BMI 25.0-29.9) Peripheral vascular disease Prostate cancer Hematuria Constipation BPH (benign prostatic hyperplasia) Prostate cancer Colon cancer Dysuria Hyperlipidemia, unspecified Essential hypertension Surgical History History of left-sided carotid endarterectomy History of coronary artery stent placement History of exploratory laparotomy History of carpal tunnel release History of prostate surgery (~2017) History of bladder surgery (~01/04/18) History of colectomy History of appendectomy Family History Father Pancreatic cancer Mother No problems noted. Brother Liver cancer Social History Household Members: Children Household Members Other:: Granddaughter Housing: House Are you a primary care management assistant to a significant other at home: No Do you presently have visiting nurse or other home services: No Alcohol intake: never Patient Tobacco Use Status: Never used Tobacco Tobacco use type: Cigarette e-Cigarette/Vaping Use: Never Used Second Hand Smoke Exposure: No Advance Directives Date on File: 09/29/20 service: No Current occupational status: retired Cognitive needs: Yes (cane) Hearing needs: Yes (hearing aide) Vision needs: Yes (glasses) Review of Systems Const Denies weakness ENT Denies dizziness Card Denies chest pain, Denies chest pain with activity, Denies syncope, Denies rapid heart rate, Denies pedal edema, Denies edema, Denies leg edema, Denies lightheadedness, Denies palpitations, Denies dyspnea, Denies dyspnea on exertion and Denies orthopnea Resp Denies cough, Denies dyspnea and Denies dyspnea on exertion GI Denies hematochezia and Denies change in stool character Musc Denies abnormal gait, Denies muscle cramps, Denies muscle weakness, Denies numbness, Denies radiating pain into limb and Denies tingling Neuro Denies abnormal gait, Denies dizziness, Denies syncope, Denies numbness, Denies tingling and Denies weakness Endo Denies palpitations Physical Exam Vital Signs: Last Vital Signs Pulse 78 09/16/24 10:34 BP 106/60 09/16/24 10:34 BMI result Body Mass Index 23.5 Const General: comfortable and no acute distress Orientation/consciousness: patient oriented x3 HEENT Other: Unremarkable Head: Yes normal to inspection Neck Neck: Yes normal visual inspection Chest Chest palpation & inspection: normal inspection of the chest Resp Auscultation: clear to auscultation bilaterally Cardio Palpation: normal PMI Heart sounds: S1 normal heart sound present, S2 normal heart sound present, no gallops, no murmurs and no rubs GI Palpation (GI): Soft to palpation Back/Spine/Pelvis Other: unremarkable Skin General skin exam: no rashes or lesions noted Neuro General: patient oriented x3 Extrem General: Yes normal to inspection Psych Mental Status: mental status grossly normal Assessment & Plan Assessment & Plan (1) Atherosclerotic cardiovascular disease: Code(s): I25.10 - Atherosclerotic heart disease of [place] coronary artery without angina pectoris Category: Medical (2) Hypotension: Code(s): I95.9 - Hypotension, unspecified Category: Medical Qualifiers: Hypotension type: unspecified hypotension type Qualified Code(s): I95.9 - Hypotension, unspecified Plan Cardiac studies reviewed. Echocardiogram from 2020 with LVEF of 60-65% and otherwise unremarkable. Another study from [place] during 2022 hospitalization showed LVEF 50-55%; normal right ventricular systolic function and no significant valvular abnormalities. Stress MIBI from 2014 with some inferobasal and apical ischemia. Repeat study from 2016 with similar findings. Cardiac catheterization 11/22 with severe stenosis in the right coronary artery status post PCI. First diagonal with 50-60% stenosis. Otherwise, no significant disease. Overall, with regard to medications, continue aspirin. He can complete the Plavix that he currently has not then stop it. With regard to the generalized tiredness/weakness/low blood pressure concerns, stopped the beta-blockers completely. Amlodipine is currently at 7.5 mg daily and advised to try 5 mg daily. Based on this, we can decide on the final regimen. Would also like to avoid in rebound hypertension. Daughter will assess if the weakness improves at all with these changes. With regard to lipids, remains on statins. Last few LDL levels are in the 30s, 40s and 50 mg/dL. Overall, well controlled. Total time spent including review of data, counseling, documentation, coordination of care-32 minutes. Detailed discussion with daughter who came for appointment. Medications: Discontinued clopidogrel Discontinued Reason: Doctor's Order 75 mg PO DAILY 90 tabs 3RF Coding Level of Care Code Est Pt Level 4 (03502) Diagnoses Atherosclerotic cardiovascular disease I25.10 Hypotension, unspecified hypotension type I95.9 Hypotension type: unspecified hypotension type
[2024-09-16 10:34] VITALS: BP 106/60; PULSE 78; BMI 23.5
== END 2024-09-16 11:06 | disposition home or self-care (01) ==
PROVIDERS: PCP Internal Medicine; Visit Provider Internal Medicine
DX: I25.10 Atherosclerotic heart disease of native coronary artery without angina pectoris (principal); I95.9 Hypotension, unspecified
CPT/HCPCS: 99214

== ENCOUNTER → 2024-09-16 10:32 | Outpatient (BNVA) | payer MEDICARE, OTHER, SELFPAY | PROVIDERS: PCP Internal Medicine; Visit Provider Internal Medicine | DX: I25.10 Atherosclerotic heart disease of native coronary artery without angina pectoris (principal); I95.9 Hypotension, unspecified | CPT/HCPCS: 99212 ==

== ENCOUNTER 2024-09-18 13:44 | Outpatient (AMB) | payer MEDICARE, OTHER, SELFPAY ==
[2024-09-18 13:45] VITALS: BP 100/58; PULSE 89; O2SAT 96; BMI 23.5
--- NOTE | 2024-09-18 13:45 | A.OFFPC_ITS ---
Vital Signs 09/18/24 13:45 Height 6 ft 2 in Weight 183 lb BMI 23.5 BP 100/58 L Blood Pressure Location Lt brachial Position Sitting Pulse 89 Pulse Source Pulse Oximeter Pulse Oximetry (%) 96 Oxygen Delivery Method Room Air Intake Visit Reasons: [facility] bowel obstruction 09/05 Allergies diphenhydramine [From Benadryl] Adverse Reaction (Intermediate, Verified 09/18/24 13:49) Hallucinations Tobacco use date assessed: 09/11/24 Fall risk assessment: No Falls in past year Last assessed Fall Risk: 09/18/24 Dental Screening Dental Screen Date: 09/11/24 HPI [facility] bowel obstruction 09/05 HPI Details 89-year-old male with GERD hypertension carotid artery stenosis history of seizures CVA, atrial fibrillation. coronary artery disease hypercholesterolemia last seen in 06/28/2024. Patient does have a recurrent small-bowel obstruction. Review of the notes has seen Cardiology September 16 had a cardiac catheterization since September having severe right coronary artery stenosis underwent PCI had carotid surgery also. Complains of tiredness and beta blockers was stopped completely. Amlodipine 7.5 mg advised to decrease the 5 mg once a day . Advised to discontinue Plavix. Review of the notes in August 29 2024 MRI done showing no acute infarct, chronic right frontal lobe infarct and small chronic right parietal lobe infarct. Patient also had a CT angio on the neck showing no large vessel occlusion or high-grade stenosis mild to moderate narrowing of the right common carotid due to noncalcified plaque 40% stenosis of the proximal right cervical ICA moderate stenosis left vertebral artery 1.2 cm right pulmonary nodule advised CT scan in 3 months-08/28/2024. July ER visit showing bilateral lower extremity weakness and altered gait. ER visit September 05 for abdominal pain and swelling. Patient failure to pass flatus. Patient also sees Urology for prostate cancer and bladder neck contraction. Stable as for the carotid ultrasound. Patient just had a change in dose of the amlodipine, so will hold this dose [facility] Information Date of Discharge 09/04/24 Discharged From [facility] Medical History CAD (coronary artery disease) Afib CVA (cerebral vascular accident) Self-catheterizes urinary bladder History of trigger finger Arthritis Preoperative cardiovascular examination Symptomatic stenosis of left carotid artery Rectal cancer Bladder neck contracture GERD (gastroesophageal reflux disease) Urinary incontinence Obstructive sleep apnea Coronary artery disease Type 2 diabetes mellitus with hyperglycemia Small bowel obstruction Erectile dysfunction Overweight (BMI 25.0-29.9) Peripheral vascular disease Prostate cancer Hematuria Constipation BPH (benign prostatic hyperplasia) Prostate cancer Colon cancer Dysuria Hyperlipidemia, unspecified Essential hypertension Surgical History History of left-sided carotid endarterectomy History of coronary artery stent placement History of exploratory laparotomy History of carpal tunnel release History of prostate surgery (~2017) History of bladder surgery (~01/04/18) History of colectomy History of appendectomy Family History Father Pancreatic cancer Mother No problems noted. Brother Liver cancer Social History Household Members: Children Household Members Other:: Granddaughter Housing: House Are you a primary home care specialist to a significant other at home: No Do you presently have visiting nurse or other home services: No Alcohol intake: never Patient Tobacco Use Status: Never used Tobacco Tobacco use type: Cigarette e-Cigarette/Vaping Use: Never Used Second Hand Smoke Exposure: No Advance Directives Date on File: 09/29/20 service: No Current occupational status: retired Cognitive needs: Yes (cane) Hearing needs: Yes (hearing aide) Vision needs: Yes (glasses) Questionnaire PHQ-9 Over the last 2 weeks, how often have you been bothered by any of the following problems? 1. Little interest or pleasure in doing things: not at all 2. Feeling down, depressed, or hopeless: not at all 3. Trouble falling or staying asleep, or sleeping too much: not at all 4. Feeling tired or having little energy: not at all 5. Poor appetite or overeating: not at all 6. Feeling bad about yourself - or that you are a failure or have let yourself or your family down: not at all 7. Trouble concentrating on things, such as reading the newspaper or watching television: not at all 8. Moving or speaking so slowly that other people could have noticed. Or the opposite - being so fidgety or restless that you have been moving around a lot more than usual: not at all 9. Thoughts that you would be better off or of hurting yourself in some way: not at all Total score: 0 Depression Screening Interpretation: Negative Depression Screening Done: Yes Source: Developed by Drs. Chaim Escalera, Heriberto Hernández and colleagues, with an educational marycarmen from [employer]. Thrive Questionnaire Date Thrive assessed: 09/11/24 AUDIT C Alcohol Use Questionnaire (AUDIT-C) 1. How often do you have a drink containing alcohol?: Never Total Score: 0 NALINI-7 AMB Questionnaire NALINI-7 Date NALINI - 7 assessed: 09/11/24 Source: Developed by Drs. Chaim Escalera, Angy Pereira, Heriberto Wick and colleagues, with an educational marycarmen from [employer]. Physical exam (Primary Care) Vital Signs: Last Vital Signs Pulse 89 09/18/24 13:45 BP 100/58 L 09/18/24 13:45 Pulse Ox 96 09/18/24 13:45 Oxygen Delivery Method Room Air 09/18/24 13:45 BMI result Body Mass Index 23.5 Tobacco/Smoking Status: Tobacco use Status Tobacco use date assessed 09/11/24 09/18/24 13:53 Patient Tobacco Use Status Never used Tobacco 09/18/24 13:53 Tobacco use type Cigarette 09/18/24 13:53 e-Cigarette/Vaping Use Never Used 09/18/24 13:53 PHQ-9: PHQ-9 Score PHQ-9: Total score 0 09/18/24 15:01 Depression Screening Interpretation: Negative Thrive Assessment: Date of Thrive Assessment Date Thrive assessed 09/11/24 09/18/24 13:53 Const General: alert; No acute distress Eyes Conjunctivae: conjunctivae normal Resp Auscultation: clear to auscultation bilaterally Cardio Rate: regular rate Rhythm: regular rhythm GI Inspection: Yes normal to inspection Extrem General: Yes normal to inspection and No edema Office Procedures Flu Questionnaire Does the patient have a severe egg allergy?: No Does the patient have severe life threatening allergies?: No Does the patient have a fever or illness today?: No Has the patient ever had Guillain-[place] Syndrome?: No Has the patient ever had any past reaction to a flu shot?: No Immunizations Fluarix Triv [id number] (PF) 45 mcg (15 mcg x 3)/0.5 mL IM syringe Performing Provider: Pro Nunn MD Performing Location: [facility] Administered by: JOSTIN Pappas on 09/18/24 15:00 Dose Route Admin Location Dispensed Lot Number Expiration Date NDC [employer] 0.5 mL IM Left Deltoid 0.5 mL [id number] 04/28/25 65333-396-97 [employer] VIS Given Date VIS Provided VIS Publication Date 09/18/24 Single Vaccine 21 Eligibility Eligibility Date Funding Source Not [facility] Eligible 09/18/24 Private Coding Level of Care Code Est Pt Level 4 (87199) Diagnoses Paroxysmal atrial fibrillation I48.0 Atrial fibrillation type: paroxysmal Cerebrovascular accident (CVA), unspecified mechanism I63.9 CVA mechanism: unspecified Coronary artery disease involving [place] dehe coronary artery of y[place] heart without angina pectoris I25.10 Associated angina: without angina Coronary Disease-Associated Artery/Lesion type: [place] artery [place] vs. 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 Continue to monitor (2) CVA (cerebral vascular accident): Code(s): I63.9 - Cerebral infarction, unspecified Category: Medical Qualifiers: CVA mechanism: unspecified Qualified Code(s): I63.9 - Cerebral infarction, unspecified Plan: Continue with aspirin 81 mg once a day (3) CAD (coronary artery disease): Code(s): I25.10 - Atherosclerotic heart disease of [place] coronary artery without angina pectoris Category: Medical Qualifiers: Associated angina: without angina Coronary Disease-Associated Artery/Lesion type: [place] artery [place] vs. transplanted heart: [place] heart Qualified Code(s): I25.10 - Atherosclerotic heart disease of [place] coronary artery without angina pectoris Plan: Control the cholesterol, weight, blood pressure, diabetes (4) Complex partial seizure disorder: Code(s): G40.209 - Localization-related (focal) (partial) symptomatic epilepsy and epileptic syndromes with complex partial seizures, not intractable, without status epilepticus Category: Medical Plan: Continue on Keppra (5) Bilateral carotid artery stenosis: Comment: 12/04/2023 left carotid endarterectomy, 03/18/2024 right carotid endarterectomy 03/19/2024 - right carotid re-exploration for hematoma Code(s): I65.23 - Occlusion and stenosis of bilateral carotid arteries Category: Medical Plan: Stable (6) Essential hypertension: Code(s): I10 - Essential (primary) hypertension Category: Medical Plan: Continue with blood pressure medication. Decrease salt intake and exercise on amlodipine 5 mg once a day (7) GERD (gastroesophageal reflux disease): Code(s): K21.9 - Gastro-esophageal reflux disease without esophagitis Category: Medical Qualifiers: Esophagitis presence: without esophagitis Qualified Code(s): K21.9 - Gastro-esophageal reflux disease without esophagitis Plan: Avoid the foods that causes that usually spicy foods, tomato products, juices, coffee, soda and foods that your sensitive to. After eating do not lie down, allow 3-4 hours before in lie down. And keep the head of bed above 30 degrees to avoid the acid from going up. (8) Pulmonary nodule: Code(s): R91.1 - Solitary pulmonary nodule Category: Medical Plan: Discussed about follow-up CT scan in October 2024 Orders: Orders Influenza [id number] Immunization Today Z23 - Encounter for immunization CT chest wo IV con 1 Month R91.1 - Solitary pulmonary nodule
== END 2024-09-18 14:26 | disposition home or self-care (01) ==
PROVIDERS: PCP Internal Medicine; Visit Provider Internal Medicine
DX: I48.0 Paroxysmal atrial fibrillation (principal); I63.9 Cerebral infarction, unspecified; I25.10 Atherosclerotic heart disease of native coronary artery without angina pectoris; G40.209 Localization-related (focal) (partial) symptomatic epilepsy and epileptic syndromes with complex partial seizures, not intractable, without status epilepticus; I65.23 Occlusion and stenosis of bilateral carotid arteries; I10 Essential (primary) hypertension; K21.9 Gastro-esophageal reflux disease without esophagitis; R91.1 Solitary pulmonary nodule; Z23 Encounter for immunization

== ENCOUNTER → 2024-09-18 13:44 | Outpatient (BNVA) | payer MEDICARE, OTHER, SELFPAY | PROVIDERS: PCP Internal Medicine; Visit Provider Internal Medicine | DX: Z23 Encounter for immunization (principal); I48.0 Paroxysmal atrial fibrillation; I63.9 Cerebral infarction, unspecified; I25.10 Atherosclerotic heart disease of native coronary artery without angina pectoris; I65.23 Occlusion and stenosis of bilateral carotid arteries; I10 Essential (primary) hypertension; G40.209 Localization-related (focal) (partial) symptomatic epilepsy and epileptic syndromes with complex partial seizures, not intractable, without status epilepticus; K21.9 Gastro-esophageal reflux disease without esophagitis; R91.1 Solitary pulmonary nodule | CPT/HCPCS: 90471; 90656; 96127; 99212 ==

== ENCOUNTER 2024-11-11 14:00 | Outpatient (REF) | payer MEDICARE, OTHER, SELFPAY ==
--- NOTE | ~2024-11-11 | CT_ITS ---
CLINICAL HISTORY: R91.1 - Solitary pulmonary nodule CT chest without contrast Comparison: None Findings: Normal heart size. No pericardial effusion. Severe coronary atherosclerosis. Small hiatal hernia. Thyroid gland is within normal limits. No enlarged mediastinal lymph nodes. Mild bilateral gynecomastia. Bilateral calcified pleural plaques. Right apical ground-glass nodule measuring 1.7 x 1.1 cm. ( coronal image 55/90). Right upper lobe ground-glass nodule measuring 8 mm ( series 8, image 188/594). Mild diffuse bronchial wall thickening. Airways are patent. Aortic atherosclerosis. No aneurysm. Atrophic pancreas. No acute findings in the visualized upper abdomen. Degenerative changes of the spine. No acute fracture. IMPRESSION: 1. Right apical ground-glass nodule measuring 1.7 x 1.1 cm and right upper lobe ground-glass nodule measuring 8 mm. Recommend follow-up chest CT in 3-6 months. 2. Bilateral calcified pleural plaques 3. No acute cardiopulmonary findings Fleischner Society 2017 Guidelines for incidentally detected indeterminate nodules in persons 35 years of age or older. Multiple Ground Glass or Subsolid Nodules: 5 mm or smaller nodules need CT at 3-6 months. If stable, optional CT at 2 and 4 years. 6 mm or larger nodules need CT at 3-6 months. Subsequent management based on most suspicious nodule This document has been electronically signed by: Zeke Rangel MD on 11/13/2024 02:21:37
== END 2024-11-11 14:01 | disposition home or self-care (01) ==
LOC: HO.CT 14:00
PROVIDERS: PCP Internal Medicine; Visit Provider Internal Medicine
DX: R91.1 Solitary pulmonary nodule (principal)
CPT/HCPCS: 71250

== ENCOUNTER → 2024-11-11 14:03 | Outpatient (BNV) | payer MEDICARE, OTHER, SELFPAY | PROVIDERS: PCP Internal Medicine; Visit Provider Radiology Diagnostic Radiology | DX: R91.1 Solitary pulmonary nodule (principal) | CPT/HCPCS: 71250 ==

== ENCOUNTER 2025-01-08 13:41 | Outpatient (AMB) | payer MEDICARE, OTHER, SELFPAY ==
--- NOTE | 2025-01-08 13:43 | A.OFFVIS_ITS ---
Vital Signs 01/08/25 13:44 Height 6 ft 2 in Weight 176 lb 5.917 oz BMI 22.6 BP 110/62 Blood Pressure Location Lt brachial Position Sitting Pulse 78 Pulse Source Pulse Oximeter Intake Visit Reasons: 4 m f/u Allergies diphenhydramine [From Benadryl] Adverse Reaction (Intermediate, Verified 09/18/24 13:49) Hallucinations Medication List - Last Reconciled 01/08/25 by Sean Pina MD amlodipine 5 mg PO BEDTIME aspirin 81 mg PO DAILY blood pressure monitor As directed ICD: I95.9 MEDIUM ADULT SIZE CUFF PATIENT ON MEDICATIONS FOR HTN, CURRENTLY HAS LOW BP READINGS. cyanocobalamin (vitamin B-12) 1,000 mcg PO DAILY docusate sodium 100 mg PO DAILY PRN lactulose 30 mL PO DAILY PRN levetiracetam 250 mg PO BID 90 days rosuvastatin 10 mg PO DAILY HPI Comments Details: Geoffrey returns for follow-up. In 09/2023, he was in [place] when he had stroke- like symptoms. Then he returned back to [place] and saw vascular surgery. He underwent cardiac catheterization as part of preoperative workup. Detected to have severe right coronary artery stenosis for which he underwent PCI. Subsequently, had carotid surgery as well and that was uneventful. Then, it was felt that blood pressure was lowish and we stopped his beta- blockers. Amlodipine dose also cut back. Overall, he states he feels fine. No cardiac symptoms. [facility] Medical History CAD (coronary artery disease) Afib CVA (cerebral vascular accident) Self-catheterizes urinary bladder History of trigger finger Arthritis Preoperative cardiovascular examination Symptomatic stenosis of left carotid artery Rectal cancer Bladder neck contracture GERD (gastroesophageal reflux disease) Urinary incontinence Obstructive sleep apnea Coronary artery disease Type 2 diabetes mellitus with hyperglycemia Small bowel obstruction Erectile dysfunction Overweight (BMI 25.0-29.9) Peripheral vascular disease Prostate cancer Hematuria Constipation BPH (benign prostatic hyperplasia) Prostate cancer Colon cancer Dysuria Hyperlipidemia, unspecified Essential hypertension Surgical History History of left-sided carotid endarterectomy History of coronary artery stent placement History of exploratory laparotomy History of carpal tunnel release History of prostate surgery (~2016) History of bladder surgery (~01/04/18) History of colectomy History of appendectomy Family History Father Pancreatic cancer Mother No problems noted. Brother Liver cancer Social History Household Members: Children Household Members Other:: Granddaughter Housing: House Are you a primary specialist wound care to a significant other at home: No Do you presently have visiting nurse or other home services: No Alcohol intake: never Patient Tobacco Use Status: Never used Tobacco Tobacco use type: Cigarette e-Cigarette/Vaping Use: Never Used Second Hand Smoke Exposure: No Advance Directives Date on File: 09/29/20 service: No Current occupational status: retired Cognitive needs: Yes (cane) Hearing needs: Yes (hearing aide) Vision needs: Yes (glasses) Review of Systems Const Denies weakness ENT Denies dizziness Card Denies chest pain, Denies chest pain with activity, Denies syncope, Denies rapid heart rate, Denies pedal edema, Denies edema, Denies leg edema, Denies lightheadedness, Denies palpitations, Denies dyspnea, Denies dyspnea on exertion and Denies orthopnea Resp Denies cough, Denies dyspnea and Denies dyspnea on exertion GI Denies hematochezia and Denies change in stool character Musc Denies abnormal gait, Denies muscle cramps, Denies muscle weakness, Denies numbness, Denies radiating pain into limb and Denies tingling Neuro Denies abnormal gait, Denies dizziness, Denies syncope, Denies numbness, Denies tingling and Denies weakness Endo Denies palpitations Physical Exam Vital Signs: Last Vital Signs Pulse 78 01/08/25 13:44 BP 110/62 01/08/25 13:44 BMI result Body Mass Index 22.6 Const General: comfortable and no acute distress Orientation/consciousness: patient oriented x3 HEENT Other: Unremarkable Head: Yes normal to inspection Neck Neck: Yes normal visual inspection Chest Chest palpation & inspection: normal inspection of the chest Resp Auscultation: clear to auscultation bilaterally Cardio Palpation: normal PMI Heart sounds: S1 normal heart sound present, S2 normal heart sound present, no gallops, no murmurs and no rubs GI Palpation (GI): Soft to palpation Back/Spine/Pelvis Other: unremarkable Skin General skin exam: no rashes or lesions noted Neuro General: patient oriented x3 Extrem General: Yes normal to inspection Psych Mental Status: mental status grossly normal Assessment & Plan Assessment & Plan (1) Atherosclerotic cardiovascular disease: Code(s): I25.10 - Atherosclerotic heart disease of [place] coronary artery without angina pectoris Category: Medical (2) Hypotension: Code(s): I95.9 - Hypotension, unspecified Category: Medical Qualifiers: Hypotension type: unspecified hypotension type Qualified Code(s): I95.9 - Hypotension, unspecified Plan Cardiac studies reviewed. Echocardiogram from 2020 with LVEF of 60-65% and otherwise unremarkable. Another study from [place] during 2022 hospitalization showed LVEF 50-55%; normal right ventricular systolic function and no significant valvular abnormalities. Stress MIBI from 2014 with some inferobasal and apical ischemia. Repeat study from 2016 with similar findings. Cardiac catheterization 11/22 with severe stenosis in the right coronary artery status post PCI. First diagonal with 50-60% stenosis. Otherwise, no significant disease. For medications, continue low-dose aspirin. For blood pressure, stable on the current dose of amlodipine. This was reduced as time and beta-blockers were also stopped because of low blood pressure el rns. With regard to lipids, on statins. Cholesterol is well controlled. Coding Level of Care Code Est Pt Level 4 (04480) Complex EM visit Add On G2211 Diagnoses Atherosclerotic cardiovascular disease I25.10 Hypotension, unspecified hypotension type I95.9 Hypotension type: unspecified hypotension type
[2025-01-08 13:44] VITALS: BP 110/62; PULSE 78; BMI 22.6
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
--- OUTSIDE RECORDS SUMMARY | 2025-01-08 16:09 | XMS_ITS | Data Portability ---
Author Organization [facility], [facility] Address [address] [place] [address] Care Team Providers Care Log Handler Name Role Phone SUNG KARIMI Primary Care Provider [phone] Assessment No assessment recorded. Plan of Treatment Reminders Order Date Submit Date Provider Last Modified By Organization Details Last Modified Time Details Appointments RECHECK 15 2024 10:45A M Ketty Ramirez PA-C Not available Not available Not available Lab None recorded. Referral None recorded. Procedures None recorded. Surgeries None recorded. Imaging XR, knee, 4 or more view - room 113 bilateral knee 4v cw 2023 024 [email or web address] [facility] [address] [facility], [facility] [address], [place], [address], 10/31/2024 13:21:17 Medication Orders None recorded. Patient TargetsNo targets recorded. Patient InstructionsNo instructions recorded. Reason for Referral None Reported. Results Created Date Observation Date Name Description Value Unit Range Abnormal Flag Note LastModifiedBy Organization Detail LastModifiedTime 10/03/20 24 10/03/2024 XR, knee, 4 or more view [email or web address] ?Encry pted=s hAaTro YD8dLq bEUv6g %2BXZw aYqtaq 0bqfl% 2Fg9IQ a4ajBk vP9nXo QUaueC m3YtLR FvZlgJ JJ8mAn HZtai3 9z3322 AC0Kqa XqMWaG nKiQtr MwF INTERFACE [facility] [address], [place], [address], 10/03/2024 10:15:22 10/03/20 24 10/03/2024 XR, knee, 4 or more view [email or web address] ?Encry pted=s Rosalinda YD8dLq bEUv6g %2BXZw aYqtaq 0bqfl% 2Fg9IQ a4ajBk vP9nXo QUaueC m3YtLR FvZlgJ JJ8mAn HZtai3 0v3746 AC0Kqa XqMWaG nKiQtr Mw INTERFACE [facility] [address], [place], [address], 10/03/2024 10:15:24 Result Notes None recorded. Problems Name Problem SNOMED Code Status Onset Date Resolution Date Notes Provider Name and Address Organization Details Recorded Time No complaint s [id number] Active Status: 'I'; Not Available [facility] 4 09:11:46 Pain of right wrist 954154861321 100 Active 2023 Benny Rodriguez PA-C [address], [place], [address] , [facility] - [facility] 4 10:27:11 Pain of knee region 0580803131 Active 2023 emily martinez [place] - [facility] 4 10:04:03 Pain of left hand 337051298158 103 Active 2016 Problem Code: M79.642; Problem Code Type: ICD-10; Status: 'A'; Not Available [facility] 4 10:56:11 Pain in right hand 400382437834 109 Active 2016 Problem Code: M79.641; Problem Code Type: ICD-10; Status: 'A'; Not Available [facility] 4 10:56:11 Idiopathi c osteoarth ritis 399072368 Active 2014 Problem Code: M17.11; Problem Code Type: ICD-10; Status: 'A'; Not Available [facility] 4 10:56:12 Carpal tunnel syndrome of left wrist 086178532678 102 Active 2017 Problem Code: G56.02; Problem Code Type: ICD-10; Status: 'A'; Not Available [facility] 4 10:56:12 Trigger finger of left hand 223766766268 53463 Active 2023 Jad Dorman PA-C [address], [place], [address] , [facility] 4 09:05:29 Carpal tunnel syndrome of right wrist 221151524196 108 Active 2023 Jad Dorman PA-C [address], [place], [address] , [facility] 4 09:05:29 Problem Notes None recorded. Procedures Surgical History Date Name Laterality Status Provider Name and Address Organization Details Recorded Time 5 Knee Kenalog 40 1cc Injection, Bilateral completed Ketty Ramirez PA-C [address], [place], [address], [facility] 01/01/2025 11:10:02 5 Gel-One Knee Injection completed Ketty Ramirez PA-C [address] [facility], [place], [address], [facility] 11/21/2024 12:35:48 4 Knee Kenalog 40 1cc Injection, Bilateral completed Ketty Ramirez PA-C [address], [place], [address], [facility] 10/07/2024 21:58:12 Imaging Results Imaging Date Name Status LastModified by Organiz ation Details LastModified Time 10/03/2024 XR, knee, 4 or more view completed [facility]FACE [facility] [address], [place], [address], 10/03/2024 10:15:22 10/03/2024 XR, knee, 4 or more view completed [facility]FACE [facility] [address], [place], [address], 10/03/2024 10:15:24 Procedure Notes None recorded. Medical Equipment None Reported. Allergies Allergen ID Allergen Name Allergen Category Reaction Reaction Severity Criticality Documentation Date Start Date Code Code System Note Provider Name and Address Organization Details Recorded Time 873829 Benadryl medicatio n Not available Not available Not available 01/10/202414064 7 RxNorm SHREYAS RAMIRO martinez [facility] 08:40:25 Medications Name Sig Start Date Stop Date Status Note LastModified by Organization Details LastModified Time amiodarone 200 mg tablet TAKE 1 TABLET BY MOUTH ONCE DAILY active Not Available Not Available No t Available amlodipine 2.5 mg tablet TAKE 3 TABLETS (7.5mg) BY MOUTH ONCE DAILY AT BEDTIME active Not Available Not Available No t Available clopidogrel 75 mg tablet TAKE 1 TABLET BY MOUTH ONCE DAILY active Not Available Not Available No t Available levetiraceta m 250 mg tablet TAKE 1 TABLET BY MOUTH TWICE DAILY active Not Available Not Available No t Available cefuroxime axetil 500 mg tablet TAKE 1 TABLET BY MOUTH TWICE DAILY FOR 7 DAYS active Not Available Not Available No t Available levofloxacin 500 mg tablet TAKE 1 TABLET BY MOUTH ONCE DAILY FOR 7 DAYS active Not Available Not Available No t Available doxycycline hyclate 100 mg tablet TAKE 1 TABLET BY MOUTH TWICE DAILY FOR 3 DAYS active Not Available Not Available No t Available oxycodone 5 mg tablet TAKE 1 TABLET BY MOUTH 6 TIMES A DAY active Not Available Not Available Not Available rosuvastatin 10 mg tablet TAKE 1 TABLET BY MOUTH ONCE DAILY active Not Available Not Available No t Available metoprolol tartrate 25 mg tablet TAKE 1/2 tablet (12.5mg) BY MOUTH TWICE DAILY active Not Available Not Available No t Available lactulose 10 gram/15 mL oral solution TAKE 30 ML BY MOUTH DAILY NEEDED FOR constipatio n active Not Available Not Available No t Available Vitals Date Recorded Body height Body mass index (BMI) Body weight Provider Name and Address Organization Details Last Updated DateTime 06/17/2024 187.96 cm 23.8 kg/m2 98432.59 g KELIN JOHNSON [facility] 06/17/2024 15:57:49 Date Recorded Body height Body mass index (BMI) Body weight Provider Name and Address Organization Details Last Updated DateTime 07/05/2024 187.96 cm 23.8 kg/m2 76133.59 g KELIN JOHNSON [facility] 07/05/2024 11:08:18 Date Recorded Body height Body mass index (BMI) Body weight Provider Name and Address Organization Details Last Updated DateTime 10/03/2024 187.96 cm 23.8 kg/m2 41828.59 g emily izaguirre [facility] 10/03/2024 10:02:39 Date Recorded Body height Provider Name an d Address Organization Details Last Updated DateTime 11/21/2024 187.96 cm Lina Diaz [facility] 11/21/2024 11:39:41 Date Recorded Body height Body mass index (BMI) Body weight Provider Name and Address Organization Details Last Updated DateTime 01/01/2025 187.96 cm 23.8 kg/m2 97478.59 g KAYLIA L'HEUREUX [facility] 01/01/2025 10:41:11 Social History None recorded. Functional Status None recorded. Mental Status None recorded. Family History Nothing Reported. Medical History No medical history recorded. Past Encounters Encounter ID Performer Location Encounter Start Date Encounter Closed Date Diagnosis/Indication Diagnosis SNOMED-CT Code Diagnosis ICD10 Code Diagnosis Note [id number] MARTHA Mann [address] [place] [address] 01/10/2024 08:28:52 01/15/2024 16:32:10 Trigger finger of left hand 1528759065 2056078 M65.30 Patient reports that his pain seemed to improve the use of a Velcro wrist splint. I provided him with a Velcro wrist splint today in the office.The patient is ambulatory , but has weakness and/or instabilit y of their extremity which requires stabilizat ion from this semi-rigid /rigid orthosis to improve their function. Verbal and written instructio ns for their use and applicatio n of this item were given. patient was instructed that should the brace result in increased pain, decreased sensation, increased swelling or an overall worsening of their medical condition, to please contact our office immediatel y. Numbness of hand 7713774 04 R20.0 Carpal riley dipak syndrome of right wrist 2554225040 51692 G56.01 I recommende d continued nighttime wrist splinting, as well as EMG to evaluate for compressio n neuropathy . He will follow-up after the EMG for discussion of results and treatment [id number] MD Latonia [place] [address] [place], [place] [address] 04/29/2024 10:41:37 05/16/2024 15:18:47 Bilateral carpal tunnel syndrome 9326960998 2940733 G56.03 [id number] MARTHA Mann [address] [place] [address] 06/07/2024 08:22:27 06/07/2024 08:51:25 Carpal tunnel syndrome of right wrist 7627023982 95227 G56.01 [id number] MD Latonia [place] [address] [place] [address] 06/10/2024 13:26:31 07/05/2024 12:52:42 Carpal tunnel syndrome of right wrist 9579593377 12607 G56.01 [id number] MD Latonia [place] [address] [place] [address] 06/17/2024 15:42:06 07/10/2024 07:17:44 Carpal tunnel syndrome of right wrist 2889903035 39613 G56.01 [id number] MD Jaylan [place] [address] [place] [address] 07/05/2024 10:57:15 07/29/2024 19:06:48 Postoperative care 191437208 Z48.89 Postoperat tayla wound infection 39964819 T81.40XA [id number] MARTHA Yun [address] [place] [address] 10/03/2024 09:28:21 10/31/2024 13:21:17 Pain of knee region 6314191560 M25.561 M25.562 Primary go narthrosis, bilateral 156744339 M17.0 [id number] MARTHA Yun [address] [place] [address] 11/21/2024 11:28:56 12/03/2024 12:05:29 Osteoarthritis of right knee joint 1251836320 06620 M17.11 [id number] Ketty Ramirez PA-C [facility] [address] [place] [address] 01/01/2025 10:37:09 01/01/2025 11:10:26 Primary gonarthrosis, bilateral 248485260 M17.0 Health Concerns Section Related Observation LastModified by Organization Detai ls LastModified Time None Recorded Concern Status LastModified by Organization Details LastModified Time None Recorded Advance Directives Directive None Recorded Payers Encounter Date Sequence Insurance Name Policy Number Policy Jacques Covered Member ID Jacques Member ID Guarantor Name 06/17/2024 2 [employer] - [employer] [id number] Geoffrey S Lizandro [id number] Geoffrey S Lizandro 06/17/2024 1 [place] [employer] Geoffrey Waldron Lizandro [id number] Geoffrey S Lizandro 07/05/2024 2 [employer] - [employer] [id number] Geoffrey S Lizandro [id number] Geoffrey S Lizandro 07/05/2024 1 [place] [employer] Geoffrey Waldron Lizandro [id number] Geoffrey S Lizandro 10/03/2024 2 [employer] - [employer] [id number] Geoffrey S Lizandro [id number] Geoffrey S Lizandro 10/03/2024 1 [place] [employer] Geoffrey Bone [id number] Geoffrey S Lizandro 11/21/2024 2 [employer] - [employer] [id number] Geoffrey S Lizandro [id number] Geoffrey S Lizandro 11/21/2024 1 [place] [employer] Geoffrey Bone [id number] Geoffrey S Lizandro 01/01/2025 2 [employer] - [employer] [id number] Geoffrey S Lizandro [id number] Geoffrey S Lizandro 01/01/2025 1 [place] [facility] Geoffrey Bone [id number] Geoffrey Bone Notes Date Note Type Note Provider Name and Address Organization Details Recorded Time 4 text/html Diagnosis: Status post right carpal tunnel release complicated by wound infection.The patient presents at our request. He is no longer on antibiotics.Past family, medical, social history and review of systems has been reviewed, updated and is located in the patient? s chart.Examination: Healthy appearing patient in no apparent distress. Alert and oriented. Swelling and erythema have decreased dramatically. He has full digital range of motion but continues to have decreased sensation in his median distribution. No atrophy in either upper extremity. Brisk capillary refill in all digitsPlan: The patient and I discussed his situation at length. He appears to be doing well. I like to see him in 2 weeks to see how he is doing off antibiotics. He is comfortable with that plan. Donald Vitale MD [address] [place] [address] [address] [facility], [place], [address], [facility] 06/21/2024 08:50:14 4 text/html Diagnosis: Status post right carpal tunnel release complicated by wound infectionThe patient returns at my request. He has been off his antibiotics for several weeks now there has been no sign of infection. He continues to have numbness and tingling in his fingers. He has been wearing a splint at night.Past family, medical, social history and review of systems has been reviewed, updated and is located in the patient? s chart.Examination: Healthy appearing patient in no apparent distress. Alert and oriented. Wound is well-healed. Decreased right wrist range of motion apparent left. Full digital range of motion bilaterally. Provocative testing of wrists and digits reveal no instability. No atrophy in either upper extremity. Brisk capillary refill in all digitsPlan: The patient and I discussed the situation at length. I have instructed him in scar massage and strengthening. I have provided him with a new Velcro wrist splint for night use although I would like him to wean off this as soon as able to. He was provided with a splint and instructed in its application and use. He will follow up with me at his discretion.The patient has weakness and instability of their extremity which requires stabilization for this semi-rigid/rigid orthosis to improve their function.Verbal and written instructions for the use and application of this item were given. Patient was instructed that should the brace result in increased pain, decreased sensation, increased swelling or an overall worsening of their medical condition, to please contact our office immediately Donald Vitale MD [address], [place], [address], [place] [facility] 07/05/2024 11:24:48 4 text/html I am seeing the patient today under the supervision of Dr. Cameron who was available but who did not see the patient. HPI: Geoffrey presents to the office today for an evaluation of his bilateral knees. He admits to chronic bilateral knee pain, right greater than left, which has been present for quite some time. No recent trauma. He uses a cane for support. He has participated in physical therapy which was somewhat helpful. He is only able to take Tylenol for his pain secondary to being on an oral anticoagulant. He complains of generalized knee discomfort which is worse with weightbearing activities. He is here today to discuss treatment options. PMH/PSH/MEDS/ALL/FMH/SOC HX/ROS are reviewed in detail per my medical intake sheet. General Exam: Vital signs are as noted below Mental status: Alert and lucid. Normal insight, affect and grooming. RN OTOLARYNGOLOGY: Gross motor coordination is intact. No spasticity or clonus noted. EXAMINATION: The patient is well appearing and in no apparent distress. Alert and oriented x3. Gait is antalgic. {{Right knee reveals Left knee reveals Bilateral knees reveal*}} a varus deformity on the left and a valgus deformity on the right upon inspection. No joint effusion, edema, erythema, ecchymosis, or lesions. Neurovascularly intact. Tenderness present along the {{medial lateral medial and lateral*}} joint line. ROM is from -5-115 degrees. Patellofemoral crepitus noted. Stability intact with anterior, posterior, and varus/valgus stress at both 0 and 30 degrees of flexion. 5/5 strength. Calf/leg compartments soft and compressible. Bilateral hip exam reveals painless passive range of motion. No instability. 5/5 strength. X-rays ordered, obtained and reviewed at [facility] today include {{4 views of bilateral knees.*}} Images reveal severe end-stage osteoarthritis of the left medial compartment and right lateral compartment with qozh-vk-zkme articulation, subchondral sclerosis, and osteophyte formation. Degenerative changes are also present in the patellofemoral compartments. No acute fracture or lesion. IMPRESSION: {{Right Left Bilateral*}} knee end-stage osteoarthritis PLAN: The patient was thoroughly counseled today regarding their knee condition, its natural history, and conservative versus surgical treatment options. The patient is interested in receiving an injection with corticosteroid. {{The right knee was The left knee was Bilateral knees were*}} prepped sterilely and an injection was administered utilizing 40mg of Kenalog and 4cc of 0.25% Marcaine. The patient tolerated the procedure well. Post-injection precautions were discussed. Recommended avoiding strenuous activity over the next 24-48 hours. Encouraged elevation of the leg, applying ice, and taking over the counter medication as needed. The patient is aware that the injection can be repeated as often as every 3 months. He is also interested in proceeding with viscosupplementation. Will obtain authorization through his insurance. He is aware that anything short of a total knee arthroplasty will not provide him with long-lasting relief. All questions answered. Ketty Ramirez PA-C [address] [place] [address] [address], [place], [address], [facility] 10/07/2024 21:59:22 5 text/html I am seeing the patient today under the supervision of Dr. Martinez who was available but who did not see the patient. HPI: Patient presenting today with known osteoarthritis of bilateral knees. Not happy with pain level and function of the knees. Is authorized for Gel One injections today. No new injury. Cortisone injections have provided him with some relief. He takes Tylenol for his pain. He only feels as if he needs an injection for his right knee today. Past family, medical, social history and review of systems has been reviewed, updated, and is located in the patient? s chart. Examination: Examination of the right knee reveals no effusion, erythema, or warmth. Injection site benign. Decreased range of motion. Point tender {{medial lateral*}} joint line. Calf is soft and nontender. 5/5 strength knee flexion and extension. Impression: Right knee osteoarthritis Plan: Nature of the diagnosis discussed with the patient today. Patient agreed to proceed with injections. Utilizing sterile technique, the right knee was injected with Gel One. Patient tolerated the procedure well. Postinjection precautions reviewed. Recommended ice and rest for the next 24-48 hours. Follow-up as symptoms dictate. [facility] speech recognition strategic debriefing specialist software was used to create portions of this document. An attempt at proofreading has been made to minimize errors. Please call for corrections. Ketty Ramirez PA-C [address] [place] [address] [address], [place], [address], [facility] 11/21/2024 12:36:07 5 text/html I am seeing the patient today under the supervision of Dr. Martinez who was available but who did not see the patient. HPI: Patient presenting today with known osteoarthritis of {{the right knee the left knee bilateral knees*}}. Has been responding favorably to conservative treatment. Here today for a cortisone injection. Denies recent injury. No new systemic complaints. He also found viscosupplementation to be helpful. He would like to repeat these injections when he is eligible in April. He continues to take imns-cat-nwincjz medication intermittently for his pain. He uses a cane for support. Past family, medical, social history and review of systems has been reviewed, updated, and is located in the patient? s chart. Examination: Examination of {{the right knee the left knee bilateral knees*}} reveals no effusion, erythema, or warmth. Injection site benign. Decreased range of motion. Point tender {{medial* lateral}} joint line. Calf is soft and nontender. 5/5 strength knee flexion and extension. Impression: {{Right Left Bilateral*}} knee end-stage osteoarthritis Plan: The patient was thoroughly counseled today regarding their knee condition, its natural history, and conservative versus surgical treatment options. The patient is interested in receiving an injection with corticosteroid. {{The right knee was The left knee was Bilateral knees were*}} prepped sterilely and an injection was administered utilizing 40mg of Kenalog and 4cc of 0.25% Marcaine. The patient tolerated the procedure well. Post-injection precautions were discussed. Recommended avoiding strenuous activity over the next 24-48 hours. Encouraged elevation of the leg, applying ice, and taking over the counter medication as needed. The patient is aware that the injection can be repeated as often as every 3 months. Ketty Ramirez PA-C [address] [facility] [address], [place], [address], [facility] 01/01/2025 11:10:23
== END 2025-01-08 14:01 | disposition home or self-care (01) ==
LOC: HO.HCS 13:42
PROVIDERS: PCP Internal Medicine; Visit Provider Internal Medicine
DX: I25.10 Atherosclerotic heart disease of native coronary artery without angina pectoris (principal); I95.9 Hypotension, unspecified
CPT/HCPCS: 99214; G2211

== ENCOUNTER → 2025-01-08 13:41 | Outpatient (BNVA) | payer MEDICARE, OTHER, SELFPAY | PROVIDERS: PCP Internal Medicine; Visit Provider Internal Medicine | DX: I25.10 Atherosclerotic heart disease of native coronary artery without angina pectoris (principal); I95.9 Hypotension, unspecified | CPT/HCPCS: 99212 ==

== ENCOUNTER 2025-01-13 17:03 | Outpatient (AMB) | payer MEDICARE, OTHER, SELFPAY ==
[2025-01-13 17:08] VITALS: BP 102/50; PULSE 63; TEMP 36.2; O2SAT 96; BMI 23.6
--- NOTE | 2025-01-13 17:08 | MHC.PC.OV ---
Vital Signs 01/13/25 17:08 Height 6 ft 2 in Weight 184 lb 2 oz BMI 23.6 BP 102/50 L Blood Pressure Location Lt brachial Position Sitting Pulse 63 Pulse Source Pulse Oximeter Temp 97.1 F Temp Source Temporal Artery Scan Pulse Oximetry (%) 96 Oxygen Delivery Method Room Air Intake Visit Reasons: 3mo/follow up Visual Merchandising Manager Required: No Accompanied by: Self / Same As Patient Allergies diphenhydramine [From Benadryl] Adverse Reaction (Intermediate, Verified 01/13/25 17:09) Hallucinations Medication List - Last Reconciled 01/13/25 by Pro Nunn MD amlodipine 5 mg PO BEDTIME aspirin 81 mg PO DAILY blood pressure monitor As directed ICD: I95.9 MEDIUM ADULT SIZE CUFF PATIENT ON MEDICATIONS FOR HTN, CURRENTLY HAS LOW BP READINGS. cyanocobalamin (vitamin B-12) 1,000 mcg PO DAILY docusate sodium 100 mg PO DAILY PRN lactulose 30 mL PO DAILY PRN levetiracetam 250 mg PO BID 90 days rosuvastatin 10 mg PO DAILY triamcinolone acetonide 0.5% 1 appl topical BID 14 days Tobacco use date assessed: 01/13/25 Fall risk assessment: No Falls in past year Last assessed Fall Risk: 01/13/25 Dental Screening Dental Screen Date: 01/13/25 Did you have a dental visit in the last 12 months?: Yes Did you have a dental problem in the last 6 months where you did not have access to dental care?: No Was dental information given to patient?: Patient has dentist [facility] Medical History (Updated 01/13/25 @ 17:59 by Pro Nunn MD) Overweight (BMI 25.0-29.9) CAD (coronary artery disease) Afib CVA (cerebral vascular accident) Self-catheterizes urinary bladder History of trigger finger Arthritis Preoperative cardiovascular examination Symptomatic stenosis of left carotid artery Rectal cancer Bladder neck contracture GERD (gastroesophageal reflux disease) Urinary incontinence Obstructive sleep apnea Coronary artery disease Type 2 diabetes mellitus with hyperglycemia Small bowel obstruction Erectile dysfunction Peripheral vascular disease Prostate cancer Hematuria Constipation BPH (benign prostatic hyperplasia) Prostate cancer Colon cancer Dysuria Hyperlipidemia, unspecified Essential hypertension Surgical History History of left-sided carotid endarterectomy History of coronary artery stent placement History of exploratory laparotomy History of carpal tunnel release History of prostate surgery (~2017) History of bladder surgery (~01/04/18) History of colectomy History of appendectomy Family History Father Pancreatic cancer Mother No problems noted. Brother Liver cancer Social History Household Members: Children Household Members Other:: Granddaughter Housing: House Are you a primary animal care attendant to a significant other at home: No Do you presently have visiting nurse or other home services: No Alcohol intake: never Patient Tobacco Use Status: Never used Tobacco Tobacco use type: Cigarette e-Cigarette/Vaping Use: Never Used Second Hand Smoke Exposure: No Advance Directives Date on File: 09/29/20 service: No Current occupational status: retired Cognitive needs: Yes (cane) Hearing needs: Yes (hearing aide) Vision needs: Yes (glasses) Questionnaire PHQ-9 Over the last 2 weeks, how often have you been bothered by any of the following problems? 1. Little interest or pleasure in doing things: not at all 2. Feeling down, depressed, or hopeless: not at all 3. Trouble falling or staying asleep, or sleeping too much: not at all 4. Feeling tired or having little energy: not at all 5. Poor appetite or overeating: not at all 6. Feeling bad about yourself - or that you are a failure or have let yourself or your family down: not at all 7. Trouble concentrating on things, such as reading the newspaper or watching television: not at all 8. Moving or speaking so slowly that other people could have noticed. Or the opposite - being so fidgety or restless that you have been moving around a lot more than usual: not at all 9. Thoughts that you would be better off or of hurting yourself in some way: not at all Total score: 0 Depression Screening Interpretation: Negative Depression Screening Done: Yes 14885 - PHQ-9 Billing: Yes Source: Developed by Drs. Chaim Escalera, Angy Pereira, Heriberto Wick and colleagues, with an educational marycarmen from [employer]. Thrive Questionnaire Date Thrive assessed: 01/13/25 I am a: Patient What is your living situation today?: I have a steady place to live Within the past 12 months, did the food you bought not last and you didn't have the money to get more?: Never true Within the past 12 months, did you worry whether your food would run out before you got money to buy more?: Never true Do you have trouble paying for medicines?: No Do you have trouble getting transportation to medical appointments?: No Do you have trouble paying your heating and electricity bill?: No Do you have trouble taking care of your child, family member or friend?: No Do you have trouble with day-to-day activities such as bathing, preparing meals, shopping, managing finances, etc.?: No Are you currently unemployed and looking for a job?: No Are you interested in more education?: No Please select the resources that you would like help with: None Currently or been in a relationship where the following occur: No concerns reported THRIVE Score: 0 AUDIT C Alcohol Use Questionnaire (AUDIT-C) 1. How often do you have a drink containing alcohol?: Never 3. How often do you have six or more drinks on one occasion?: Never Total Score: 0 NALINI-7 AMB Questionnaire NALINI-7 Date NALINI - 7 assessed: 01/13/25 Feeling nervous, anxious, or on edge: 0 = Not at all Not being able to stop or control worryin = Not at all Worrying too much about different things: 0 = Not at all Trouble relaxin = Not at all Being so restless that it is hard to sit still: 0 = Not at all Becoming easily annoyed or irritable: 0 = Not at all Feeling afraid as if something awful might happen: 0 = Not at all Total NALINI-7 score (0-4 normal; 5-9 mild; 10-14 moderate; 15-21 severe): 0 Source: Developed by Drs. Chaim Escalera, Angy Pereira, Heriberto Wick and colleagues, with an educational marycarmen from [employer]. NALINI-7 Assessment Billing NALINI-7 Assessment Tool: NALINI-7 Assessment 82102 Physical exam (Primary Care) Vital Signs: Last Vital Signs Temp 97.1 F 01/13/25 17:08 Pulse 63 01/13/25 17:08 BP 102/50 L 01/13/25 17:08 Pulse Ox 96 01/13/25 17:08 Oxygen Delivery Method Room Air 01/13/25 17:08 BMI result Body Mass Index 23.6 Tobacco/Smoking Status: Tobacco use Status Tobacco use date assessed 01/13/25 01/13/25 17:10 Patient Tobacco Use Status Never used Tobacco 01/13/25 17:10 Tobacco use type Cigarette 01/13/25 17:10 e-Cigarette/Vaping Use Never Used 01/13/25 17:10 PHQ-9: PHQ-9 Score PHQ-9: Total score 0 01/13/25 17:51 Depression Screening Interpretation: Negative Thrive Assessment: Date of Thrive Assessment Date Thrive assessed 01/13/25 01/13/25 17:10 Currently or been in a relationship where the following occur: No concerns reported Const General: alert; No acute distress HENMT Other: Multiple 3 mm abrasions on the scalp parietal and frontal area Eyes Conjunctivae: conjunctivae normal Resp Auscultation: clear to auscultation bilaterally Cardio Rate: regular rate Rhythm: regular rhythm GI Inspection: Yes normal to inspection Extrem General: Yes normal to inspection and No edema Coding Level of Care Code Est Pt Level 4 (57852) Complex EM visit Add On G2211 Diagnoses Coronary artery disease involving kar[place] coronary artery of [place] heart without angina pectoris I25.10 Associated angina: without angina Coronary Disease-Associated Artery/Lesion type: kar[place] artery [place] vs. 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 Bilateral carotid artery stenosis I65.23 Gastroesophageal reflux disease without esophagitis K21.9 Esophagitis presence: without esophagitis Essential hypertension I10 Scalp itch L29.9 Additional Codes NALINI-7 Assessment Billing - NALINI-7 Assessment Tool: NALINI-7 Assessment 66408 ([id number]) PHQ-9 - 78390 - PHQ-9 Billing: Yes ([id number]) Assessment & Plan Assessment & Plan (1) CAD (coronary artery disease): Code(s): I25.10 - Atherosclerotic heart disease of kar[place] coronary artery without angina pectoris Category: Medical Qualifiers: Associated angina: without angina Coronary Disease-Associated Artery/Lesion type: [place] artery [place] vs. transplanted heart: kar[place] heart Qualified Code(s): I25.10 - Atherosclerotic heart disease of kar[place] coronary artery without angina pectoris Plan: Control the cholesterol, weight, blood pressure, continue with aspirin (2) Hyperlipidemia, unspecified: Code(s): E78.5 - Hyperlipidemia, unspecified Category: Medical Qualifiers: Hyperlipidemia type: unspecified Qualified Code(s): E78.5 - Hyperlipidemia, unspecified Plan: Avoid fried foods, chicken skin, eggs, butter margarine, pastries and meat. Be it pork or beef they have a lot of cholesterol on rosuvastatin LDL goal of less than 70 and triglyceride of less than 150. Last blood work was in 03/18/2024 (3) Pulmonary nodule: Comment: October 2024 Code(s): R91.1 - Solitary pulmonary nodule Category: Medical Plan: Patient is advised to have a CT scan follow-up in 3-6 months (4) Complex partial seizure disorder: Code(s): G40.209 - Localization-related (focal) (partial) symptomatic epilepsy and epileptic syndromes with complex partial seizures, not intractable, without status epilepticus Category: Medical Plan: Continue with Keppra (5) Bilateral carotid artery stenosis: Comment: 12/04/2023 left carotid endarterectomy, 03/18/2024 right carotid endarterectomy 03/19/2024 - right carotid re-exploration for hematoma Code(s): I65.23 - Occlusion and stenosis of bilateral carotid arteries Category: Medical Plan: Patient has a scheduled ultrasound of the carotids (6) GERD (gastroesophageal reflux disease): Code(s): K21.9 - Gastro-esophageal reflux disease without esophagitis Category: Medical Qualifiers: Esophagitis presence: without esophagitis Qualified Code(s): K21.9 - Gastro-esophageal reflux disease without esophagitis Plan: Avoid the foods that causes that usually spicy foods, tomato products, juices, coffee, soda and foods that your sensitive to. After eating do not lie down, allow 3-4 hours before in lie down. And keep the head of bed above 30 degrees to avoid the acid from going up. (7) Essential hypertension: Code(s): I10 - Essential (primary) hypertension Category: Medical Plan: Presently left with amlodipine 5 mg once a day (8) Scalp itch: Code(s): L29.9 - Pruritus, unspecified Category: Medical Plan History of Present Illness The patient is an 89-year-old male presenting for follow-up of multiple chronic conditions and management of an identified solitary pulmonary nodule. The patient has a pertinent history of GERD, essential hypertension, and other cardiovascular disorders like carotid artery disease and coronary artery disease. He also has a history of cerebrovascular accident and complex partial seizure disorder, managed with Keppra, with no recent seizure episodes. Notably, he has bilateral end-stage osteoarthritis managed with recent knee injections. A recent CT scan detected a solitary pulmonary nodule in the right upper lobe, necessitating further follow-up imaging in 3 to 6 months. Blood work in August indicated mild anemia and elevated blood glucose. Ultrasound of the carotids is scheduled for January 2025. Challenges reported include occasional sputum production without shortness of breath, and chronic bloating attributed to dietary factors. Health Maintenance - Colon cancer screening last performed in 2016 - Scheduled carotid ultrasound in January 2025 - CT scan follow-up for pulmonary nodules recommended in 3 to 6 months - Continues on aspirin and amlodipine for cardiovascular management - Blood glucose monitoring and lipid management, with goals for LDL <70 mg/dL and triglycerides <150 mg/dL - Regular physical therapy for lower extremity weakness - Regular prune juice and stool softener for bowel regimen Social History - Lives with family; granddaughter prepares meals rich in vegetables. - Regularly drinks prune juice for bowel regulation. - Engages in physical therapy exercises. Review of Systems - Respiratory: Denies shortness of breath; occasional clear sputum production. - Gastrointestinal: Reports regular bowel movements assisted by prune juice and a stool softener. - Musculoskeletal: Reports lower extremity weakness. - Neurological: Denies recent seizures. Physical Exam Results - CT scan (October 2024): Right upper lobe ground-glass nodule 1.7 cm x 1.1 cm and 8 mm in size. - Bloodwork (August): Hemoglobin 11.2 g/dL, Hematocrit 35.3%, elevated glucose 121 mg/dL, LDL 50 mg/dL. Plan The patient will maintain his current aspirin and amlodipine regimen for cardiovascular health. Monitoring of blood sugar levels is recommended due to recent mild elevation. Lipid management goals include maintaining LDL levels below 70 mg/dL and triglycerides under 150 mg/dL, with rosuvastatin therapy as previously planned. A follow-up CT scan in 3 to 6 months is advised to monitor the pulmonary nodules identified in the October scan. Continued management of GERD includes dietary modifications, while appointments for carotid ultrasound remain as scheduled for further vascular assessment. Lower extremity weakness will continue to be addressed with physical therapy. Dermatological consultation would be considered if skin conditioning persists beyond current therapeutic measures. Patient was informed and verbally consented to the use of an ambient scribe for clinic note documentation during this visit. Discussion Notes During the visit, I reviewed the patient's current medication regimens and cardiovascular management including continuing aspirin therapy and antihypertensive medication amlodipine. We discussed the importance of follow-up imaging for pulmonary nodules identified via CT scan in October, emphasizing the need for ongoing monitoring. The patient was advised on dietary changes to mitigate gastrointestinal symptoms related to GERD and natural gas production from certain foods. We scheduled his carotid ultrasound for January and discussed physical therapy's role in managing lower extremity weakness. I provided educational information about maintaining lipid levels and blood glucose monitoring. I highlighted the potential need for dermatology referral if skin changes persisted beyond two weeks of topical treatment. The patient understood and agreed with the proposed management plan, including follow-up care and preventative measures. Patient Instructions - Continue prescribed aspirin and blood pressure medication as directed. - Maintain dietary modifications to minimize GERD symptoms and gas production. - Follow up with CT scan in 3 to 6 months as discussed for further evaluation of lung nodules. - Attend scheduled carotid ultrasound appointment in January. - Engage in physical therapy exercises as recommended. - Monitor blood glucose levels regularly. - Apply provided topical cream for skin lesions sparingly and do not use for more than two weeks. - Report any new or worsening symptoms promptly. Orders: Orders Complete Blood Count Auto Diff 2 Months I10 - Essential (primary) hypertension Free T4 (Free Thyroxine) 2 Months I10 - Essential (primary) hypertension B Type Natriuretic Peptide 2 Months I10 - Essential (primary) hypertension Comprehensive Met. Panel 2 Months I10 - Essential (primary) hypertension Thyroid Stimulating Hormone 2 Months I10 - Essential (primary) hypertension Lipid Panel Today E78.00 - Pure hypercholesterolemia, unspecified, I10 - Essential (primary) hypertension Vitamin B12 and Folate 2 Months I10 - Essential (primary) hypertension Hemoglobin A1c 2 Months I10 - Essential (primary) hypertension Referrals Dermatology Referral L29.9 - Pruritus, unspecified Medications: New triamcinolone acetonide 0.5% 1 appl topical BID 30 grams 0RF 14 days L29.9 - Pruritus, unspecified
--- OUTSIDE RECORDS SUMMARY | 2025-01-13 18:37 | XMS_ITS | Clinical Summary ---
Author Organization [facility] Address [address] [place] [address] Phone Care Team Providers Care Flanging Roll Operator Name Role Phone Pro Nunn MD Primary Care Provider [phone] Allergies Active Allergy Reactions Criticality Noted Date [...] Hypertension Hyperlipidemia TIA (transient ischemic attack) Cancer ([facility]) Social History Tobacco Use Types Packs/Day Years [...] LAB CHEMISTRY METHOD 10/28/2023 8:29 AM EST [facility] Comment: Cholesterol Risk Factors (NCEP 2004 ATP III update) Desirable: ?<200 mg/dL Borderline Risk: ? 200-239 mg/dL High Risk: ?>239 mg/dL Triglycerides 103 0 - 150 mg/dL LAB CHEMISTRY METHOD 10/28/2023 8:29 AM EST [facility] HDL 34 23 - 92 mg/dL LAB CHEMISTRY METHOD 10/28/2023 8:29 AM EST [facility] LDL Calculated 25 <100 mg/dL LAB CHEMISTRY METHOD 10/28/2023 8:29 AM [facility] Comment: LDL Cholesterol Risk Factors (NCEP 2004 ATP III update) Desirable for high risk CHD: ??< 100 ??mg/dL Desirable for moderate risk CHD (2 or more risk factors): < 130 ??mg/dL Desirable for low risk CHD (0-1 risk factors): ??< 160 ??mg/dL VLDL Cholesterol David 20.6 mg/dL LAB CHEMISTRY METHOD 10/28/2023 8:29 AM [facility] Blood Venous blood specimen / Unknown Venipuncture / Unknown 10/28/2023 6:39 AM EST 10/28/2023 8:01 AM EST us Roman Wu MD LAB BLOOD ORDERABLES Fi nal Result [facility] [address] [place] [address], [place] [phone] from Last 3 Months or Most Recently Relevant to Health Maintenance Insurance MEDICARE [facility] Advance Directives * Full Code - Default [...] currently active code status orders. Care Teams Flanging Roll Operator Relationship Specialty Start Date End Date Pro Nunn MD [address] [place] [address] [address] [facility] [place] [address] PCP - General Internal Medicine 10/26/23
--- OUTSIDE RECORDS SUMMARY | 2025-01-13 18:37 | XMS_ITS | Continuity of Care Document ---
Author Organization [facility] Address [address] [place] [address] Care Team Providers Care Nonprofit Director Name Role Phone SUNG KARIMI Primary Care Provider Assessment No assessment recorded. Plan of Treatment Reminders Order Date Submit Date Provider Last Modified By Organization Details Last Modified Time Details Appointments RECHECK 15 2024 10:45A M Ketty Ramirez PA-C Not available Not available Not available Lab None recorded . Referral None recorded . Procedures None recorded . Surgeries None recorded . Imaging None recorded . Medication Orders None recorded . Patient TargetsNo targets recorded. Patient InstructionsNo instructions recorded. Reason for Referral None Reported. Problems Name Problem SNOMED Code Status Onset Date Resolution Date Notes Provider Name and Address Organization Details Recorded Time No complaint s 923785850 Active Status: 'I'; Not Available [facility] 4 09:11:46 Pain of right wrist 038148082874 100 Active 2023 Benny Rodriguez PA-C [address] [facility], [place], [address] , [facility] 4 10:27:11 Pain of knee region 7042195333 Active 2023 emily martinez [facility] 4 10:04:03 Pain of left hand 274441457931 103 Active 2016 Problem Code: M79.642; Problem Code Type: ICD-10; Status: 'A'; Not Available [facility] 4 10:56:11 Pain in right hand 523301600472 109 Active 2016 Problem Code: M79.641; Problem Code Type: ICD-10; Status: 'A'; Not Available [facility] 4 10:56:11 Idiopathi c osteoarth ritis 435148956 Active 2014 Problem Code: M17.11; Problem Code Type: ICD-10; Status: 'A'; Not Available [facility] 4 10:56:12 Carpal tunnel syndrome of left wrist 207668172470 102 Active 2017 Problem Code: G56.02; Problem Code Type: ICD-10; Status: 'A'; Not Available [facility] 4 10:56:12 Trigger finger of left hand 618369653918 40073 Active 2023 Jad Dorman PA-C [address], [place], [address] , [facility] 4 09:05:29 Carpal tunnel syndrome of right wrist 069106641955 108 Active 2023 Jad Dorman PA-C [address], [place], [address] , [facility] 4 09:05:29 Problem Notes None recorded. Procedures Surgical History Date Name Laterality Status Provider Name and Address Organization Details Recorded Time 5 Knee Kenalog 40 1cc Injection, Bilateral completed Ketty Ramirez PA-C [address], [place], [address], [facility] 01/01/2025 11:10:02 5 Gel-One Knee Injection completed Ketty Ramirez PA-C [address], [place], [address], [facility] 11/21/2024 12:35:48 4 Knee Kenalog 40 1cc Injection, Bilateral completed Ketty Ramirez PA-C [address], [place], [address], [facility] 10/07/2024 21:58:12 Imaging Results None recorded. Procedure Notes None recorded. Medical Equipment None Reported. Allergies Allergen ID Allergen Name Allergen Category Reaction Reaction Severity Criticality Documentation Date Start Date Code Code System Note Provider Name and Address Organization Details Recorded Time 833659 Benadryl medicatio n Not available Not available Not available 01/10/202458131 7 RxNorm SHREYAS RAMIRO martinez [facility] 08:40:25 Medications Name Sig Start Date Stop [...] Updated DateTime 01/01/2025 187.96 cm 23.8 kg/m2 56793.59 g KAYLIA L'HEUREUX [place] [facility] [place] [facility] 01/01/2025 10:41:11 Social History None recorded. Functional Status None recorded. Mental Status None recorded. Family History Nothing Reported. Medical History No medical history recorded. Past Encounters Encounter ID Performer Location Encounter Start Date Encounter Closed Date Diagnosis/Indication Diagnosis SNOMED-CT Code Diagnosis ICD10 Code Diagnosis Note [id number] MARTHA Yune [address] [place] [address] 01/01/2025 10:37:09 01/01/2025 11:10:26 Primary gonarthrosis, bilateral 247880095 M17.0 Health Concerns Section Related Observation LastModified by Organization Detai ls LastModified Time None Recorded Concern Status LastModified by Organization Details LastModified Time None Recorded Payers Encounter Date Sequence Insurance Name Policy Number Policy Jacques Covered Member ID Jacques Member ID Guarantor Name 01/01/2025 2 [facility] [employer] - [facility] [id number] Geoffrey Bone [id number] Geoffrey Waldron Lizandro 01/01/2025 1 [place]IC[place] [employer] Geoffrey Bone [id number] Geoffrey Bone Notes Date Note Type Note Provider Name and Address Organization Details Recorded Time text/html I am seeing the patient today [...] eligible in April. He continues to take [id number] medication intermittently for his pain. He uses [...] every 3 months. Ketty Ramirez PA-C [address] [facility] [address], [place], [address], [facility] 01/01/2025 11:10:23
--- OUTSIDE RECORDS SUMMARY | 2025-01-13 18:38 | XMS_ITS | Data Portability ---
Author Organization [facility]geons [facility], [facility] Address [address] [place] [address] Care Team Providers Care Patient Financial Services Coordinator Name Role Phone SUNG KARIMI Primary Care Provider [phone] Assessment No assessment recorded. Plan of Treatment [...] 113 bilateral knee 4v cw 2023 024 [id number] [facility] [address] [facility], [facility] [address], [address], 10/31/2024 13:21:17 Medication Orders None recorded. Patient [...] a4ajBk vP9nXo QUaueC m3YtLR FvZlgJ JJ8mAn HZtai3 9a2711 AC0Kqa XqMWaG nKiQtr MwF INTERFACE [facility] [address], [place], [address], 10/03/2024 10:15:22 10/03/20 24 10/03/2024 XR, knee, 4 or more view http:/ [email or web address]:7083 ?Encry pted=s Rosalinda YD8dLq bEUv6g %2BXZw aYqtaq 0bqfl% 2Fg9IQ a4ajBk vP9nXo QUaueC m3YtLR FvZlgJ JJ8mAn HZtai3 6t4159 AC0Kqa XqMWaG nKiQtr Mw INTERFACE [facility] [address], [place], [address], 10/03/2024 10:15:24 Result Notes None recorded. Problems Name Problem SNOMED Code Status Onset Date Resolution Date Notes Provider Name and Address Organization Details Recorded Time No complaint s 206353277 Active Status: 'I'; Not Available [facility] 4 09:11:46 Pain of right wrist 745121272596 100 Active 2023 Benny Rodriguez PA-C [address], [place], [address] , [facility] 4 10:27:11 Pain of knee region 1076872818 Active 2023 emily martinez [place] - [facility] 4 10:04:03 Pain of left hand 928533540845 103 Active 2016 Problem Code: M79.642; Problem Code Type: ICD-10; Status: 'A'; Not Available [facility] 4 10:56:11 Pain in right hand 894894418479 109 Active 2016 Problem Code: M79.641; Problem Code Type: ICD-10; Status: 'A'; Not Available [facility] 4 10:56:11 Idiopathi c osteoarth ritis 792646738 Active 2014 Problem Code: M17.11; Problem Code Type: ICD-10; Status: 'A'; Not Available [facility] 4 10:56:12 Carpal tunnel syndrome of left wrist 905647740444 102 Active 2017 Problem Code: G56.02; Problem Code Type: ICD-10; Status: 'A'; Not Available [facility] 4 10:56:12 Trigger finger of left hand 907245158972 91851 Active 2023 Jad Dorman PA-C [address], [place], [address] , [facility] 4 09:05:29 Carpal tunnel syndrome of right wrist 487460029624 108 Active 2023 Jad Dorman PA-C [address], [place], [address] , [facility] 4 09:05:29 Problem Notes None recorded. Procedures Surgical History Date Name Laterality Status Provider Name and Address Organization Details Recorded Time 5 Knee Kenalog 40 1cc Injection, Bilateral completed Ketty Ramirez PA-C [address], [place], [address], [facility] 01/01/2025 11:10:02 5 Gel-One Knee Injection completed Ketty Ramirez PA-C [address] Formerly named [facility], [place], [address], [facility] 11/21/2024 12:35:48 4 Knee Kenalog 40 1cc Injection, Bilateral completed Ketty Ramirez PA-C [address], [place], [address], [facility] 10/07/2024 21:58:12 Imaging Results Imaging Date Name Status LastModified by Organiz ation Details LastModified Time 10/03/2024 XR, knee, 4 or more view completed [facility] [address], [place], [address], 10/03/2024 10:15:22 10/03/2024 XR, knee, 4 or more view completed INTERFACE [facility] [address], [place], [address], 10/03/2024 10:15:24 Procedure Notes None recorded. Medical Equipment None Reported. Allergies Allergen ID Allergen Name Allergen Category Reaction Reaction Severity Criticality Documentation Date Start Date Code Code System Note Provider Name and Address Organization Details Recorded Time 739409 Benadryl medicatio n Not available Not available Not available 01/10/202493432 7 RxNorm SHREYAS RAMIRO martinez [facility] 08:40:25 Medications Name Sig Start Date [...] Updated DateTime 06/17/2024 187.96 cm 23.8 kg/m2 85172.59 g KELIN JOHNSON [facility] 06/17/2024 15:57:49 Date Recorded Body height Body mass index (BMI) Body weight Provider Name and Address Organization Details Last Updated DateTime 07/05/2024 187.96 cm 23.8 kg/m2 21791.59 g KELIN JOHNSON [facility] 07/05/2024 11:08:18 Date Recorded Body height Body mass index (BMI) Body weight Provider Name and Address Organization Details Last Updated DateTime 10/03/2024 187.96 cm 23.8 kg/m2 70156.59 g emily izaguirre [facility] 10/03/2024 10:02:39 Date Recorded Body height Provider Name an d Address Organization Details Last Updated DateTime 11/21/2024 187.96 cm Lina Diaz [facility] 11/21/2024 11:39:41 Date Recorded Body height Body mass index (BMI) Body weight Provider Name and Address Organization Details Last Updated DateTime 01/01/2025 187.96 cm 23.8 kg/m2 91633.59 g KAYLIA L'HEUREUX [facility] 01/01/2025 10:41:11 Social History None recorded. Functional Status None recorded. Mental Status None recorded. Family History Nothing Reported. Medical History No medical history recorded. Past Encounters Encounter ID Performer Location Encounter Start Date Encounter Closed Date Diagnosis/Indication Diagnosis SNOMED-CT Code Diagnosis ICD10 Code Diagnosis Note [id number] MARTHA Mann [address] [place] [address] 01/10/2024 08:28:52 01/15/2024 16:32:10 Trigger finger of left hand [id number] 4572515 M65.30 Patient reports that his pain seemed [...] our office immediatel y. Numbness of hand 4082725 04 R20.0 Carpal riley dipak syndrome of right wrist 9485101738 17631 G56.01 I recommende d continued nighttime wrist splinting, as well as EMG to evaluate for compressio n neuropathy . He will follow-up after the EMG for discussion of results and treatment [id number] MD Latonia Thomas [address] [place], [place] [address] 04/29/2024 10:41:37 05/16/2024 15:18:47 Bilateral carpal tunnel syndrome 6781238654 5707578 G56.03 [id number] MARTHA Mann [address] [place] [address] 06/07/2024 08:22:27 06/07/2024 08:51:25 Carpal tunnel syndrome of right wrist 1218476509 19256 G56.01 [id number] MD Latonia Thomas [address] [place] [address] 06/10/2024 13:26:31 07/05/2024 12:52:42 Carpal tunnel syndrome of right wrist 3817042418 25883 G56.01 [id number] MD Latonia Thomas [address] [place] [address] 06/17/2024 15:42:06 07/10/2024 07:17:44 Carpal tunnel syndrome of right wrist 1299889887 41221 G56.01 [id number] MD Jaylan Thomasjohnny [address] [place] [address] 07/05/2024 10:57:15 07/29/2024 19:06:48 Postoperative care 042139610 Z48.89 Postoperat tayla wound infection 27693828 T81.40XA [id number] MARTHA Yun [address] [place] [address] 10/03/2024 09:28:21 10/31/2024 13:21:17 Pain of knee region 9243323592 M25.561 M25.562 Primary go narthrosis, bilateral 730053973 M17.0 [id number] MARTHA Yun [address] [place] [address] 11/21/2024 11:28:56 12/03/2024 12:05:29 Osteoarthritis of right knee joint 8663391221 43853 M17.11 [id number] Ketty Ramirez PA-C [facility] - [facility] [address] [place] [address] 01/01/2025 10:37:09 01/01/2025 11:10:26 Primary gonarthrosis, bilateral 173448856 M17.0 Health Concerns Section Related Observation LastModified by Organization Detai ls LastModified Time None Recorded Concern Status LastModified by Organization Details LastModified Time None Recorded Advance Directives Directive None Recorded Payers Encounter Date Sequence Insurance Name Policy Number Policy Jacques Covered Member ID Jacques Member ID Guarantor Name 06/17/2024 2 [employer] - [employer] [id number] Geoffrey S Lizandro [id number] Geoffrey S Lizandro 06/17/2024 1 [place] [employer] Geoffrey Waldron Lizandro [id number] Geoffrey S Lizandro 07/05/2024 2 [employer]AN - UNICARE [id number] Geoffrey S Lizandro [id number] Geoffrey S Lizandro 07/05/2024 1 [place] [employer] Geoffrey Waldron Lizandro [id number] Geoffrey S Lizandro 10/03/2024 2 [employer]MNITY PLAN - UNICARE [id number] Geoffrey S Lizandro [id number] Geoffrey S Lizandro 10/03/2024 1 [place] [employer] Geoffrey Bone [id number] Geoffrey S Lizandro 11/21/2024 2 [employer]MNITY PLAN - UNICARE [id number] Geoffrey S Lizandro [id number] Geoffrey S Lizandro 11/21/2024 1 [place] [employer] Geoffrey Bone [id number] Geoffrey S Lizandro 01/01/2025 2 COMMONWE[employer] INDEMNITY PLAN - UNICARE [id number] Geoffrey S Lizandro [id number] Geoffrey S Lizandro 01/01/2025 1 [place]: [facility] [employer] Geoffrey Bone [id number] Geoffrey Bone Notes Date Note Type [...] comfortable with that plan. Donald Vitale MD [address] [place] [address] Suite Formerly named [facility], [place], [address], [facility] 06/21/2024 08:50:14 4 text/html Diagnosis: Status [...] Vitale MD [address], [place], [address], [place] [facility] 07/05/2024 11:24:48 4 text/html I am [...] and lucid. Normal insight, affect and grooming. 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 No spasticity [...] strength. X-rays ordered, obtained and reviewed at [facility] today include {{4 views of bilateral knees.*}} Images reveal severe end-stage osteoarthritis of the left medial compartment and right lateral compartment with jonq-ud-kufw articulation, subchondral sclerosis, and osteophyte formation. Degenerative [...] relief. All questions answered. Ketty Ramirez PA-C [address] [place] [address] [address], [place], [address], [facility] 10/07/2024 21:59:22 5 text/html I am [...] next 24-48 hours. Follow-up as symptoms dictate. [facility] speech recognition cost accounting manager software was used to create portions of this document. An attempt at proofreading has been made to minimize errors. Please call for corrections. Ketty Ramirez PA-C [address] [place] [address] [address], [place], [address], [facility] 11/21/2024 12:36:07 5 text/html I am [...] eligible in April. He continues to take tugu-sdx-yfxdzpy medication intermittently for his pain. He uses [...] every 3 months. Ketty Ramirez PA-C [address], [place], [address], [facility] 01/01/2025 11:10:23
== END 2025-01-13 18:04 | disposition home or self-care (01) ==
LOC: HO.HMCH 17:03
PROVIDERS: PCP Internal Medicine; Visit Provider Internal Medicine
DX: I25.10 Atherosclerotic heart disease of native coronary artery without angina pectoris (principal); E78.5 Hyperlipidemia, unspecified; R91.1 Solitary pulmonary nodule; G40.209 Localization-related (focal) (partial) symptomatic epilepsy and epileptic syndromes with complex partial seizures, not intractable, without status epilepticus; I65.23 Occlusion and stenosis of bilateral carotid arteries; K21.9 Gastro-esophageal reflux disease without esophagitis; I10 Essential (primary) hypertension; L29.9 Pruritus, unspecified

== ENCOUNTER → 2025-01-13 17:03 | Outpatient (BNVA) | payer MEDICARE, OTHER, SELFPAY | PROVIDERS: PCP Internal Medicine; Visit Provider Internal Medicine | DX: I25.10 Atherosclerotic heart disease of native coronary artery without angina pectoris (principal); E78.5 Hyperlipidemia, unspecified; R91.1 Solitary pulmonary nodule; G40.209 Localization-related (focal) (partial) symptomatic epilepsy and epileptic syndromes with complex partial seizures, not intractable, without status epilepticus; I65.23 Occlusion and stenosis of bilateral carotid arteries; K21.9 Gastro-esophageal reflux disease without esophagitis; I10 Essential (primary) hypertension; L29.9 Pruritus, unspecified | CPT/HCPCS: 96127; 99212 ==

== ENCOUNTER 2025-01-29 10:04 | Outpatient (REF) | payer MEDICARE, OTHER, SELFPAY ==
--- NOTE | ~2025-01-29 | US_ITS ---
EXAMINATION: BILATERAL CAROTID ULTRASOUND WITH DOPPLER HISTORY: I65.23 - Occlusion and stenosis of bilateral carotid arteries COMPARISON: Comparison is made with the prior examination dated 07/09/2024. TECHNIQUE: Real time and Color and Spectral doppler ultrasonography of the carotid and vertebral arteries was performed in multiple planes. FINDINGS: There is mild plaque formation involving both proximal internal carotid arteries. VERTEBRAL FLOW DIRECTION: Antegrade bilaterally. PEAK SYSTOLIC VELOCITIES (in cm/sec): RIGHT: CCA: Prox: 132 Dist: 153 ICA: Prox: 148 Mid: 157 Dist: 146 ICA/CCA Ratio: 1.03 ECA: 220 Peak ICA EDV: 45 LEFT: CCA: Prox: 166 Dist: 123 ICA: Prox: 152 Mid: 138 Dist: 78 ICA/CCA Ratio: 0.92 ECA: 141 Peak ICA EDV: 42 US/US carotid duplex BI IMPRESSION: Findings consistent with 50-79% stenosis of the bilateral internal carotid arteries. Electronically signed by: Chaim Kaye MD 01/29/2025 11:19 AM EDT
--- OUTSIDE RECORDS SUMMARY | 2025-01-29 11:37 | XMS_ITS | Clinical Summary ---
Author Organization [facility] Address [address] [place] [address] Phone Care Team Providers Care Claim Approver Name Role Phone Pro Nunn MD Primary Care Provider [phone] Allergies Active Allergy Reactions Criticality Noted Date [...] Hypertension Hyperlipidemia TIA (transient ischemic attack) Cancer ([facility]) Social History Tobacco Use Types Packs/Day [...] Vaccines (1 of 2) 1986 RSV Immunization Adult Patie nts (1 - 1-dose 75+ series) 2011 Depression [...] LAB CHEMISTRY METHOD 10/28/2023 8:29 AM EST [facility] Comment: Cholesterol Risk Factors (NCEP 2004 ATP III update) Desirable: ?<200 mg/dL Borderline Risk: ? 200-239 mg/dL High Risk: ?>239 mg/dL Triglycerides 103 0 - 150 mg/dL LAB CHEMISTRY METHOD 10/28/2023 8:29 AM EST [facility] HDL 34 23 - 92 mg/dL LAB CHEMISTRY METHOD 10/28/2023 8:29 AM EST [facility] LDL Calculated 25 <100 mg/dL LAB CHEMISTRY METHOD 10/28/2023 8:29 AM EST [facility] Comment: LDL Cholesterol Risk Factors (NCEP 2004 ATP III update) Desirable for high risk CHD: ??< 100 ??mg/dL Desirable for moderate risk CHD (2 or more risk factors): < 130 ??mg/dL Desirable for low risk CHD (0-1 risk factors): ??< 160 ??mg/dL VLDL Cholesterol David 20.6 mg/dL LAB CHEMISTRY METHOD 10/28[facility]2023 8:29 [facility] Blood Venous blood specimen / Unknown Venipuncture / Unknown 10/28/2023 6:39 AM EST 10/28/2023 8:01 AM EST us Roman Wu MD LAB BLOOD ORDERABLES Fi nal Result [facility] [place] [facility] [address] [place] [address], [place] [phone] from Last 3 Months or Most Recently Relevant to Health Maintenance Insurance [facility]IC[facility] Advance Directives * Full Code - Default [...] currently active code status orders. Care Teams Claim Approver Relationship Specialty Start Date End Date Pro Nunn MD [address] [place] [address] [address] [facility] [place] [phone] PCP - General Internal Medicine 10/26/23
== END 2025-01-29 10:05 | disposition home or self-care (01) ==
LOC: HO.US 10:04
PROVIDERS: PCP Internal Medicine; Visit Provider Surgery Vascular Surgery
DX: I65.23 Occlusion and stenosis of bilateral carotid arteries (principal)
CPT/HCPCS: 93880

== ENCOUNTER → 2025-01-29 10:11 | Outpatient (BNV) | payer MEDICARE, OTHER, SELFPAY | PROVIDERS: PCP Internal Medicine; Visit Provider Radiology Diagnostic Radiology | DX: I65.23 Occlusion and stenosis of bilateral carotid arteries (principal) | CPT/HCPCS: 93880 ==

== ENCOUNTER 2025-01-30 14:54 | Outpatient (AMB) | payer MEDICARE, OTHER, SELFPAY ==
--- NOTE | 2025-01-30 15:00 | MHC.OFFVIS ---
Vital Signs 01/30/25 15:01 Height 6 ft 2 in Weight 184 lb BMI 23.6 BP 98/60 Blood Pressure Location Rt brachial Position Sitting Intake Visit Reasons: 6 mo carotid US 01/29/25 follow up Intake Note: 6 mo follow up carotid stenosis US 01/29/25 w/ hx of Left CEA 12/04/23 & Right CEA 03/18/24 w/ Right carotid re-exploration 03/19/24 Accompanied by: Self / Same As Patient Allergies diphenhydramine [From Benadryl] Adverse Reaction (Intermediate, Verified 01/30/25 15:06) Hallucinations HPI HPI 6 mo carotid US 01/29/25 follow up: Details: The patient is an 89-year-old male presenting for an annual follow-up post carotid artery surgery. He underwent a left carotid endarterectomy in November 2023 and a right carotid endarterectomy in March 2024, both due to stenosis. Postoperative complications included bleeding, necessitating further surgical intervention. He appears to be doing well and now presents for routine carotid surveillance. The patient also experiences chronic knee soreness managed through corticosteroid injections. He expresses general well-being and is approaching his 89th birthday. At the current time he is being maintained on an aspirin and statin. [facility] Medical History Overweight (BMI 25.0-29.9) CAD (coronary artery disease) Afib CVA (cerebral vascular accident) Self-catheterizes urinary bladder History of trigger finger Arthritis Preoperative cardiovascular examination Symptomatic stenosis of left carotid artery Rectal cancer Bladder neck contracture GERD (gastroesophageal reflux disease) Urinary incontinence Obstructive sleep apnea Coronary artery disease Type 2 diabetes mellitus with hyperglycemia Small bowel obstruction Erectile dysfunction Peripheral vascular disease Prostate cancer Hematuria Constipation BPH (benign prostatic hyperplasia) Prostate cancer Colon cancer Dysuria Hyperlipidemia, unspecified Essential hypertension Surgical History History of left-sided carotid endarterectomy History of coronary artery stent placement History of exploratory laparotomy History of carpal tunnel release History of prostate surgery (~2016) History of bladder surgery (~01/04/18) History of colectomy History of appendectomy Family History Father Pancreatic cancer Mother No problems noted. Brother Liver cancer Social History Household Members: Children Household Members Other:: Granddaughter Housing: House Are you a primary youth care professional to a significant other at home: No Do you presently have visiting nurse or other home services: No Alcohol intake: never Patient Tobacco Use Status: Never used Tobacco Tobacco use type: Cigarette e-Cigarette/Vaping Use: Never Used Second Hand Smoke Exposure: No Advance Directives Date on File: 09/29/20 service: No Current occupational status: retired Cognitive needs: Yes (cane) Hearing needs: Yes (hearing aide) Vision needs: Yes (glasses) Review of Systems Const All systems reviewed & are unremarkable except as noted in HPI and below Reports no additional complaints ENT Reports Normal hearing present Card Denies chest pain, Denies chest pain at rest, Denies chest pain with activity and Denies pedal edema Resp Denies cough GI Denies abdominal pain Musc Denies abnormal gait, Denies muscle cramps and Denies radiating pain into limb Skin/Breast Denies skin ulcer and Denies wounds Neuro Reports Normal hearing present and Denies abnormal gait Psych Reports no additional complaints Physical Exam Vital Signs: Last Vital Signs BP 98/60 01/30/25 15:01 BMI result Body Mass Index 23.6 Const General: cooperative, healthy appearing and comfortable Orientation/consciousness: oriented to person, oriented to place and oriented to time HEENT Head: Yes normal to inspection Neck Neck: Yes normal visual inspection Carotids: no bruits Chest Chest palpation & inspection: normal inspection of the chest Resp Effort & Inspection: normal respiratory effort and able to speak in complete sentences Auscultation: clear to auscultation bilaterally, no crackles, no rales, no rhonchi and no wheezes Cardio Rate: regular rate Rhythm: regular rhythm Heart sounds: S1 normal heart sound present and S2 normal heart sound present Bruits: no carotid bruits Peripheral pulses: Peripheral pulses 2+ throughout GI Inspection: Yes normal to inspection Skin Wounds: no wounds Hair: normal Neuro General: oriented to person, oriented to place and oriented to time Cranial nerves: Yes CN's II-XII intact bilaterally and Yes Normal hearing present Cognition (Neuro): normal cognition Motor exam (neuro): 5/5 motor strength present throughout Extrem Other: venous exam: No significant superficial varicosities or spider telangiectasias, minimal edema General: No clubbing, No cyanosis and No edema Psych Appearance: grossly normal Mental Status: mental status grossly normal Speech and movement: Normal speech and movement present Results Reviewed Results Reviewed: Carotid testing dated 01/29/2025 demonstrates bilateral 50-79% stenosis with a peak systolic on the right of 157 and a peak systolic on the left of 152. Written report and images were reviewed. Assessment & Plan Assessment & Plan (1) Bilateral carotid artery stenosis: Comment: 12/04/2023 left carotid endarterectomy, 03/18/2024 right carotid endarterectomy 03/19/2024 - right carotid re-exploration for hematoma Code(s): I65.23 - Occlusion and stenosis of bilateral carotid arteries Category: Medical Plan: In short patient has asymptomatic carotid disease. We have reviewed signs and symptoms of a stroke. We also discussed risk factor modification inclusive a healthy diet low in cholesterol. The patient will follow up with us with surveillance ultrasound of the carotids 1 year. Should there be any changes or signs or symptoms of a stroke we will be happy to see them back sooner. Thank you for allowing us to participate in this patient's care. If there are any questions or concerns please do not hesitate to contact us. Plan Patient was informed and verbally consented to the use of an ambient scribe for clinic note documentation during this visit. Orders: Orders US carotid duplex BI 1 Year I65.23 - Occlusion and stenosis of bilateral carotid arteries Patient Instructions: - Continue annual follow-ups to monitor post-surgical vascular health. - Report any changes in symptoms such as new onset of dizziness or neck pain immediately. - Maintain current lifestyle without the need for vascular medication. - Continue to engage in regular activities as tolerated, monitoring for knee-related discomfort. Coding Level of Care Code Est Pt Level 4 (92497) Complex EM visit Add On G2211 Diagnoses Bilateral carotid artery stenosis I65.23
[2025-01-30 15:01] VITALS: BP 98/60; BMI 23.6
--- OUTSIDE RECORDS SUMMARY | 2025-01-30 16:26 | XMS_ITS | Clinical Summary ---
Author Organization [facility] Address [address] [place] [address] Phone Care Team Providers Care Publicity Agent Name Role Phone Pro Nunn MD Primary Care Provider [phone] Allergies Active Allergy Reactions Criticality Noted Date [...] Hypertension Hyperlipidemia TIA (transient ischemic attack) Cancer ([facility]) Social History Tobacco Use Types [...] LAB CHEMISTRY METHOD 10/28/2023 8:29 AM EST [facility] Comment: Cholesterol Risk Factors (NCEP 2004 ATP III update) Desirable: ?<200 mg/dL Borderline Risk: ? 200-239 mg/dL High Risk: ?>239 mg/dL Triglycerides 103 0 - 150 mg/dL LAB CHEMISTRY METHOD 10/28/2023 8:29 AM EST [facility] HDL 34 23 - 92 mg/dL LAB CHEMISTRY METHOD 10/28/2023 8:29 AM EST [facility] LDL Calculated 25 <100 mg/dL LAB CHEMISTRY METHOD 10/28/2023 8:29 AM EST [facility] Comment: LDL Cholesterol Risk Factors (NCEP 2004 ATP III update) Desirable for high risk CHD: ??< 100 ??mg/dL Desirable for moderate risk CHD (2 or more risk factors): < 130 ??mg/dL Desirable for low risk CHD (0-1 risk factors): ??< 160 ??mg/dL VLDL Cholesterol David 20.6 mg/dL LAB CHEMISTRY METHOD 10/28/2023 8:29 AM [facility] Blood Venous blood specimen / Unknown Venipuncture / Unknown 10/28/2023 6:39 AM EST 10/28/2023 8:01 AM EST us Roman Wu MD LAB BLOOD ORDERABLES Fi nal Result [facility] [place] [facility] [address] [place] [address], [place] [phone] from Last 3 Months or Most Recently Relevant to Health Maintenance Insurance MEDICARE [facility] Advance Directives * Full Code - Default [...] currently active code status orders. Care Teams Publicity Agent Relationship Specialty Start Date End Date Pro Nunn MD [address] [place] [address] [address] [facility] [place] [address] PCP - General Internal Medicine 10/26/23
== END 2025-01-30 15:37 | disposition home or self-care (01) ==
LOC: HO.HVS 14:55
PROVIDERS: PCP Internal Medicine; Visit Provider Surgery Vascular Surgery
DX: I65.23 Occlusion and stenosis of bilateral carotid arteries (principal)
CPT/HCPCS: 99214; G2211

== ENCOUNTER → 2025-01-30 14:54 | Outpatient (BNVA) | payer MEDICARE, OTHER, SELFPAY | PROVIDERS: PCP Internal Medicine; Visit Provider Surgery Vascular Surgery | DX: I65.23 Occlusion and stenosis of bilateral carotid arteries (principal) | CPT/HCPCS: 99212 ==

== ENCOUNTER 2025-02-14 15:48 | Outpatient (AMB) | payer MEDICARE, OTHER, SELFPAY ==
--- NOTE | 2025-02-14 15:48 | MHC.PC.OV ---
Intake Visit Reasons: F-[facility] Intake Note: Patient is here to follow-up after a visit the emergency department at [facility] on 02/11/25 Residential Lawn Specialist Required: No Couture Dressmaker: Present Accompanied by: Family/Other Allergies diphenhydramine [From Benadryl] Adverse Reaction (Intermediate, Verified 02/14/25 15:50) Hallucinations Tobacco use date assessed: 01/13/25 Fall risk assessment: 1 Fall in past year Last assessed Fall Risk: 02/14/25 Dental Screening Dental Screen Date: 01/13/25 FORMERLY [facility], [facility] Medical History (Updated 02/14/25 @ 16:40 by Pro Nunn MD) Overweight (BMI 25.0-29.9) CAD (coronary artery disease) Afib CVA (cerebral vascular accident) Self-catheterizes urinary bladder History of trigger finger Arthritis Preoperative cardiovascular examination Symptomatic stenosis of left carotid artery Rectal cancer Bladder neck contracture GERD (gastroesophageal reflux disease) Urinary incontinence Obstructive sleep apnea Coronary artery disease Type 2 diabetes mellitus with hyperglycemia Small bowel obstruction Erectile dysfunction Peripheral vascular disease Prostate cancer Hematuria Constipation BPH (benign prostatic hyperplasia) Prostate cancer Colon cancer Dysuria Hyperlipidemia, unspecified Essential hypertension Surgical History (Updated 02/14/25 @ 16:32 by Pro Nunn MD) History of left-sided carotid endarterectomy History of coronary artery stent placement History of exploratory laparotomy History of carpal tunnel release History of prostate surgery (~2017) History of bladder surgery (~01/04/18) History of colectomy History of appendectomy Family History Father Pancreatic cancer Mother No problems noted. Brother Liver cancer Social History Household Members: Children Household Members Other:: Granddaughter Housing: House Are you a primary career education teacher to a significant other at home: No Do you presently have visiting nurse or other home services: No Alcohol intake: never Patient Tobacco Use Status: Never used Tobacco Tobacco use type: Cigarette e-Cigarette/Vaping Use: Never Used Second Hand Smoke Exposure: No Advance Directives Date on File: 09/29/20 service: No Current occupational status: retired Cognitive needs: Yes (cane, walker) Hearing needs: Yes (hearing aide) Vision needs: Yes (glasses) Questionnaire Thrive Questionnaire Date Thrive assessed: 01/13/25 NALINI-7 AMB Questionnaire NALINI-7 Date NALINI - 7 assessed: 01/13/25 Source: Developed by Drs. Chaim Escalera, Angy Pereira, Heriberto Wick and colleagues, with an educational marycarmen from [employer]. Physical exam (Primary Care) Tobacco/Smoking Status: Tobacco use Status Tobacco use date assessed 01/13/25 02/14/25 15:53 Patient Tobacco Use Status Never used Tobacco 02/14/25 15:53 Tobacco use type Cigarette 02/14/25 15:53 e-Cigarette/Vaping Use Never Used 02/14/25 15:53 Thrive Assessment: Date of Thrive Assessment Date Thrive assessed 01/13/25 02/14/25 15:53 Telehealth Telehealth Telehealth Platform: Telephone Location of provider rendering services: practice address Location of patient: address on file Patient Identification confirmed using: Name, : Yes Telehealth method: voice only Patient verbally consented to treatment: Yes Patient verbally consented to billing insurance company: Yes Patient informed of any privacy concerns related to visit: Yes Minutes spent on Phone/Video with Pt.: 25 Coding Level of Care Code Tele Est Pt Level 4 (09768) Diagnoses Spinal stenosis, lumbar M48.061 Coronary artery disease involving [place] coronary artery of [place] heart without angina pectoris I25.10 Coronary Disease-Associated Artery/Lesion type: [place] artery [place] vs. transplanted heart: [place] heart Associated angina: without angina Assessment & Plan Assessment & Plan (1) Spinal stenosis, lumbar: Code(s): M48.061 - Spinal stenosis, lumbar region without neurogenic claudication Category: Medical (2) CAD (coronary artery disease): Code(s): I25.10 - Atherosclerotic heart disease of [place] coronary artery without angina pectoris Category: Medical Qualifiers: Coronary Disease-Associated Artery/Lesion type: [place] artery [place] vs. transplanted heart: [place] heart Associated angina: without angina Qualified Code(s): I25.10 - Atherosclerotic heart disease of [place] coronary artery without angina pectoris Plan History of Present Illness The patient is an 89-year-old male presenting with neurogenic claudication and associated leg weakness following a recent hospitalization. The patient experienced a near syncopal episode, generalized weakness, and severe numbness in the lower extremity. He describes weakness, numbness, and heaviness in the legs, with a tendency to lose sensation, particularly when standing up. Documented findings from a CT scan of the lumbar spine reveal central canal stenosis from L1 down to L4, with varying severity of foraminal narrowing, aligning with the assessment of neurogenic claudication due to lumbar spinal stenosis. The patient's medical history is extensive, including treated instances of coronary artery disease, carotid stenosis, and two major cancer diagnoses (colon and prostate), all managed surgically. This backdrop forms an intricate landscape of chronic illnesses necessitating careful management. Recent vascular imaging indicates notable atherosclerosis and femoral artery stenosis, though arterial health in other regions remains within acceptable limits. The patient has been prescribed steroids to manage inflammation associated with the spinal issue and awaits further neurologic assessments. Physical therapy arrangements are in place following recent hospital discharge to enhance mobility without exacerbating frail pulmonary conditions noted with prolonged steroid use. Health Maintenance - Referral for neurosurgical consultation. - Initiation of steroid course for a short duration. - Prescribed Neurontin, awaiting initiation. - Scheduled physical therapy post-hospitalization. Social History - Functional status impaired, uses a cane for ambulation. - Relies on assistance for mobility transitions. Review of Systems - Neurological: Reports weakness, numbness, heaviness, and lack of sensation in lower extremities. - Musculoskeletal: Reports right lower extremity pain. - Cardiovascular: Reports history of syncope. - General: Denies active pain at this time. Physical Exam Results - CT of the lumbar spine showing mild to moderate central canal stenosis from L1 to L5 with severe stenosis at L3-L4. - CT angiogram of the abdomen indicating significant atherosclerosis of the infrarenal abdominal aorta and femoral artery stenosis. Plan I have outlined an immediate plan focusing on prescribing a short course of prednisone for inflammation linked to lumbar spinal stenosis-related neurogenic claudication. I scheduled a neurosurgical evaluation to determine potential surgical interventions and ordered an MRI for a comprehensive appraisal of spinal integrity and planning. Physical therapy services are engaged to optimize functionality. Neurontin's introduction will enhance pain management post-steroid therapy. The proposed plan accommodates the delicacies of controlling underlying cardiovascular conditions, chiefly atrial fibrillation, in context with active diagnoses, while evaluating pharmacologic tolerance in the aged physiology, expecting progressive symptomatic alleviation via a multifaceted approach. Patient was informed and verbally consented to the use of an ambient scribe for clinic note documentation during this visit. Discussion Notes During our conversation, I explained the complexity of the patient's condition highlighting the impact of lumbar spinal stenosis on his current symptoms. I emphasized the necessity of a neurosurgical referral to evaluate possible surgical interventions for sustained relief. The patient and his daughter understood the short-term use of prednisone is aimed at reducing inflammation but remains cautious due to potential long-term systemic effects. I discussed the introduction of Neurontin following steroid therapy to manage neurological symptoms. We also deliberated on the importance of physical therapy in improving mobility and functional status. An MRI is arranged to assist in determining the structural problem-solving concerning the neurogenic claudication, ensuring all considerations align with the patient's adaptive history. Patient Instructions - Take prednisone as prescribed, with food. - Begin Neurontin as advised after steroid therapy. - Engage in physical therapy exercises as directed at home. - Attend the neurosurgical appointment as scheduled. - If you experience new or worsening symptoms, contact the healthcare team immediately. - Follow up with planned imaging and consult to further dictate treatment pathways. Orders: Orders MR lumbar spine wo con Today M48.061 - Spinal stenosis, lumbar region without neurogenic claudication Referrals Neurosurgery Referral M48.061 - Spinal stenosis, lumbar region without neurogenic claudication Medications: New lorazepam 0.5 mg orally 1-2 tabs before the MRI PRN; 2 tabs 0RF anxiety M48.061 - Spinal stenosis, lumbar region without neurogenic claudication
--- OUTSIDE RECORDS SUMMARY | 2025-02-14 15:50 | XMS_ITS | Continuity of Care Document ---
Author Organization [facility] ter Address [address] [place] [id number]- Care Team Providers Care Bell Clerk Name Role Phone Po Pro MÉNDEZ Primary Care Physician Encounter [facility] Date(s): 02/09/25 - 02/10/[address] [address]- Encounter Diagnosis Lower extremity pain(Final) - 02/10/25 Leg weakness(Final) - 02/10/25 Discharge Disposition: A-D/C Home Attending Physician: Rickie Avila MD Admitting Physician: Rickie Avila MD Referring Physician: Not on Staff, Referring MD Encounter Type: Disch ES Allergies, Adverse Reactions, Alerts Substance Criticality Severity Reaction Reaction Severity Status Benadryl Active Medications 2 wheel walker 2 wheel walker, See Instructions, # 1 each, Refills 0, Tot. Refills 0, Maintenance, DDx: Generalised weakness, 08/29/24 2:59:00 PM EDT, Supply Start Date: 08/29/24 Status: Ordered Quantity: 1.0 Unit: each Repeat number: 1 amLODIPine 2.5 mg oral tablet 7.5 mg, 3, tablet, By Mouth, Daily, # 30 tablet, Refills 0, Maintenance, 08/28/24 8:27:00 PM EDT, Partial fill upon patient request if the prescription is for a schedule II opioid drug. Start Date: 08/28/24 Status: Ordered Quantity: 30.0 Unit: tablet Repeat number: 1 aspirin 81 mg oral delayed release tablet 81 mg, 1, tablet, By Mouth, Daily, Refills 0, Maintenance, 11/22/23 7:32:00 AM EST, Partial fill upon patient request if the prescription is for a schedule II opioid drug. Start Date: 11/22/23 Status: Ordered Repeat number: 1 clopidogrel 75 mg oral tablet 75 mg, 1, tablet, By Mouth, Daily, # 90 tablet, Refills 0, Tot. Refills 0, Maintenance, 11/22/23 11:27:00 AM EST, Route to Pharmacy Electronically, [facility], Partial fill upon patient request if the prescription is for a schedule II opioid drug., 188, cm, 11/22/23 8:05:00 EST, Height Start Date: 11/22/23 Stop Date: 02/20/24 Status: Ordered Quantity: 90.0 Unit: tablet Repeat number: 1 levETIRAcetam 250 mg oral tablet 1 tablet = 250 mg, By Mouth, 2 times a day, # 60 tablet, 0 Refills, Maintenance, 08/28/24 8:27:00 PM EDT, Tablet, Partial fill upon patient request if the prescription is for a schedule II opioid drug. Start Date: 08/28/24 Status: Ordered Quantity: 60.0 Unit: tablet Repeat number: 1 metoprolol 25 mg oral tablet 25 mg, 1, tablet, By Mouth, 2 times a day, Refills 0, Maintenance, 11/22/23 7:49:00 AM EST, Partial fill upon patient request if the prescription is for a schedule II opioid drug. Start Date: 11/22/23 Status: Ordered Repeat number: 1 Rosuvastatin = 20 mg, By Mouth, Daily, 0 Refills, Maintenance, 11/22/23 7:49:00 AM EST, Partial fill upon patientrequest if the prescription is for a schedule II opioid drug. Start Date: 11/22/23 Status: Ordered Repeat number: 1 Results Radiology Reports * Exam Date Time Procedure Performing Provider Status 02/10/25 2:[address] Head/Brain W/O Contrast Kelle Rainey; Auth (Verified) Notes: (CT Head/Brain W/O Contrast) Reason For Exam: transient right leg weakness, h/o cva;Other: RESULT: CT Head/Brain W/O Contrast CT Head/Brain W/O Contrast INDICATION: Hx of Present Illness: BLE weakness and numbness; Reason: Other:; transient right leg weakness, h o cva; Clinical Question(s): Hematoma; Order Comment: TECHNIQUE: Noncontrast head CT using axial technique and reconstructed in axial and coronal planes.Iterative reconstruction techniques are used to optimize dose and image quality. CTDIvol Head: 45.70 mGy, DLP Head: 773 mGy*cm. COMPARISON: CT head without contrast 08/28/2024 FINDINGS: Shipping Coordinator view findings, lines and tubes: None. BRAIN AND EXTRA-AXIAL SPACES: No parenchymal hemorrhage, midline shift, or mass effect. Unchanged area of chronic insufflation the right frontal lobe laterally. No acute loss of dorantes- white matter matter differentiation. No acute infarct. Mild prominence of the ventricles and sulci consistent with parenchymal volume loss. Mild low-density white matter changes. No subarachnoid hemorrhage. No subdural or epidural collection. CALVARIUM, SKULL BASE, AND SOFT TISSUES: No fractures or suspicious bony lesions. The paranasal sinuses and mastoid air cells are clear. Visualized orbits and globes are intact. The extracranial soft tissues are unremarkable. IMPRESSION: No acute intracranial pathology. WSN: [id number] Ordering Physician: Rickie Avila Dictated By: Kumar Slaughter MD Dictated Date/Time: 02/10/25 3:19 pm Reviewed By: Kumar Slaughter MD Signed By: Kumar Slaughter MD Signed Date/Time: 02/10/25 3:19 pm Transcribed By: FCO Transcribed Date/Time: 02/10/25 3:10 pm * Exam Date Time Procedure Performing Provider Status 02/09/25 9:[address] Lumbar Spine W/O Contrast Joan Maravilla; Auth (Verified) Notes: (CT Lumbar Spine W/O Contrast) Reason For Exam: Spine fracture, lumbar, traumatic;Other: RESULT: CT Lumbar Spine W/O Contrast CT Lumbar Spine W/O Contrast Hx of Present Illness: BLE weakness and numbness; Reason: Other:; Spine fracture, lumbar, traumatic; Clinical Question(s): Fracture Dislocation; Order Comment: CLINICAL QUESTION: Fracture/Dislocation TECHNIQUE: Thin section axial images were acquired through the lumbar spine. Bone and soft tissue algorithms were reconstructed along with coronal and sagittal reformats. Weight-based protocol using automatic tube modulation was used to optimize exposure parameters. CTDIvol Body: 31.50 mGy, DLP Body: 920 mGy*cm. COMPARISON: None FINDINGS: Shipping Coordinator View Findings, Lines and Tubes: None. Spine: No fractures or bone lesion. Normal alignment. Severe disc degenerative disease at T12-L1 and L3-L4. Soft tissues: No acute abnormality in the paravertebral soft tissues. Visualized aorta and kidneys appear unremarkable. DETAILED FINDINGS BY LEVEL: L1-L2: Mild central canal stenosis. Mild bilateral neural foraminal narrowing. L2-L3: Moderate central canal stenosis. Mild bilateral neural foraminal narrowing. L3-L4: Severe central canal stenosis. Moderate bilateral neural foraminal narrowing. L4-L5: Moderate central canal stenosis. Moderate right, mild left neural foraminal narrowing. L5-S1: No central canal stenosis. No neural foraminal narrowing. IMPRESSION: No evidence of fracture or subluxation. Disc degenerative disease resulting in central canal stenosis and neural foraminal narrowing as detailed above. WSN: [id number] Ordering Physician: Samy Hinojosa Dictated By: Lisandra Alvarez MD Dictated Date/Time: 02/09/25 9:23 pm Reviewed By: Lisandra Alvarez MD Signed By: Lisandra Alvarez MD Signed Date/Time: 02/09/25 9:23 pm Transcribed By: FCO Transcribed Date/Time: 02/09/25 9:20 pm Vital Signs Most recent to oldest [Reference Range]: 1 2 3 Height 188 cm (02/10/25 2:22 PM) 188 cm (02/10/25 5:49 AM) 188 cm (02/10/25 5:46 AM) Weight 81 kg (02/10/25 2:22 PM) 81 kg (02/10/25 5:49 AM) 81 kg (02/10/25 5:46 AM) Oxygen Saturation [94-100 %] 96 % (02/10/25 2:22 PM) 97 % (02/10/25 8:28 AM) 98 % (02/10/25 5:49 AM) Pulse Rate [55-90 bpm] 71 bpm (02/10/25 2:22 PM) 66 bpm (02/10/25 8:28 AM) 57 bpm (02/10/25 5:49 AM) Body Mass Index [18.5-24.99 kg/m2] 22.92 kg/m2 (02/10/25 2:22 PM) 22.92 kg/m2 (02/10/25 5:49 AM) 22.92 kg/m2 (02/10/25 5:46 AM) Blood Pressure [90-138/55-84 mm Hg] 135/65mm Hg (02/10/25 2:22 PM) 161/79mm Hg *H* (02/10/25 8:28 AM) 115/63mm Hg (02/10/25 5:49 AM) Respiratory Rate [16-30 br/min] 18 br/min (02/10/25 2:22 PM) 18 br/min (02/10/25 8:28 AM) 18 br/min (02/10/25 5:49 AM) Temperature [96.8-100.4 DegF] 97.3 DegF (02/10/25 2:22 PM) 98 DegF (02/10/25 5:46 AM) 97.6 DegF (02/09/25 10:20 PM) Mode of Delivery (Oxygen) Room air (02/10/25 2:22 PM) Room air (02/10/25 8:28 AM) Room air (02/10/25 5:49 AM) Blood pressure sites Arm, right (02/10/25 2:22 PM) Arm, right (02/10/25 8:28 AM) Arm, right (02/10/25 5:49 AM) Temperature Route Oral (02/10/25 2:22 PM) Oral (02/10/25 5:46 AM) Oral (02/09/25 10:20 PM) Weight Obtained Via Patient/family state d (02/09/25 4:26 PM) Note * Austin MÉNDEZ, Rickie: PERFORM Event Display: Patient Education Leaflets Authored Date: [id number] Sciatica ?? [id number] Sciatica Sciatica is a condition that causes pain in the low back that spreads down into the buttock, hip, and leg. Sometimes the leg pain can happen without any back pain. Sciatica happens when a spinal nerve is irritated or has pressure put on it as it comes out of the spinal canal in the low back. This most often happens when a bulge or rupture of a nearby spinal disk presses on the nerve. Sciatica canalso be caused by a narrowing of the spinal canal (spinal stenosis) or spasm of the muscle in the buttocks that the sciatic nerve passes through (piriformis muscle). Sciatica may also be called lumbar radiculopathy. Sciatica may start after a sudden twisting or bending force, such as in a car accident. Or it can happen after a simple awkward movement. In either case, muscle spasm often also happens. Muscle spasmmakes the pain worse. A healthcare provider makes a diagnosis of sciatica from your symptoms and a physical exam. Unless you had an injury from a car accident or fall, you usually won???t have X-rays taken at this time. This is because the nerves and disks in your back can???t be seen on an X-ray. If the provider suspects a compressed nerve based on your history or exam, you'll need to schedule an MRI scan. Nerve conductions studies and electromyography are nerve tests that can also help find the cause of nerve pain. Signs of a compressed nerve include loss of strength or reflexes in a leg. Most sciatica gets better with medicine, exercise, and physical therapy. If your symptoms continue after medical treatment, you may need surgery or shots (injections) to your low back. This will depend on how severe your symptoms are. Home care Follow these tips when caring for yourself at home: ??? As soon as possible, start sitting up or walking. This will help you prevent problems that come from staying in bed for long periods. ??? When in bed, try to find a position that is comfortable. A firm mattress is best. Try lying flat on your back with pillows under your knees. You can also try lying on your side with your knees bent up toward your chest and a pillow between your knees. ??? Don't sit for long periods. This puts more stresson your low back than standing or walking. ??? Use heat from a hot shower, hot bath, or heating padto help ease pain. Massage can also help. You can also try using an ice pack. You can make your ownice pack by putting ice cubes in a plastic bag that seals at the top. Wrap the bag in a thin towel.Try both heat and cold to see which works best. Use the method that feels best for 20 minutes several times a day. ??? You may use acetaminophen or ibuprofen to ease pain, unless another pain medicine was prescribed. Note: If you have chronic liver or kidney disease, talk with your healthcare provider before taking these medicines. Also, talk with your provider if you???ve had a stomach ulcer or digestive tract bleeding. ??? Use safe lifting methods. Don???t lift anything heavier than advised until all of the pain is gone. ?? Follow-up care Follow up with your healthcare provider, or as advised. You may need physical therapy or more tests. If X-rays were taken, a radiologist will look at them. You'll be told of any new findings that may affect your care. ?? When to get medical care Call your healthcare provider right away??if any of these occur: ??? Pain gets worse even after taking prescribed medicine ??? Weakness or numbness in 1 or both legs or hips ??? Numbness in your groin or genital area ??? You can???t control your bowel or bladder ??? Fever 100.4??F (38??C) or higher, or as advised by your provider ??? Redness or swelling over your back or spine? Last Reviewed Date: 2022 00:00:00 ?? [id number] [employer]. All rights reserved. This information is not intended as a substitute for professional medical care. Always follow your healthcare professional's instructions. ?? Patient Care team information Care Team Personnel Name: Pro Nunn MD Position: Reference Physician Member Role: PCP Address: [address] [place] [address] Telecom: Care Team Related Persons Name: YA YAP Name: ALEJO PIERCE Insurance Providers Guarantor name: CHARLA Health Plan Information #: 2 Payer: [facility] Member Number: [id number] Policy Number: NA Group Number: [id number] Health Plan Information #: 1 Payer: MEDICARE PART B OUTPT Member Number: [id number] Policy Number: NA Group Number: NA
--- OUTSIDE RECORDS SUMMARY | 2025-02-14 15:50 | XMS_ITS | Clinical Summary ---
Author Organization [facility] Address [address] [place] [address] Phone Care Team Providers Care Rural Mail Carrier Name Role Phone Pro Nunn MD Primary Care Provider [phone] Allergies Active Allergy Reactions Criticality Noted Date [...] Hypertension Hyperlipidemia TIA (transient ischemic attack) Cancer ([facility] V24, [facility] V28) Social History Tobacco Use Types Packs/Day Years [...] Influencers of Health Screening 10/26/2023 Influenza Vaccine (Season Ended) 2025 Cholesterol Screening (Lipid Panel) 10/28/2028 10/28/2023 HIB [...] age to complete this topic Meningococcal B Vaccine Aged Out No l onger eligible based on patient's age to complete [...] LAB CHEMISTRY METHOD 10/28/2023 8:29 AM EST [facility] Comment: Cholesterol Risk Factors (NCEP 2004 ATP III update) Desirable: ?<200 mg/dL Borderline Risk: ? 200-239 mg/dL High Risk: ?>239 mg/dL Triglycerides 103 0 - 150 mg/dL LAB CHEMISTRY METHOD 10/28/2023 8:29 AM EST [facility] HDL 34 23 - 92 mg/dL LAB CHEMISTRY METHOD 10/28/2023 8:29 AM [facility] LDL Calculated 25 <100 mg/dL LAB CHEMISTRY METHOD 10/28/2023 8:29 AM [facility] LAB Comment: LDL Cholesterol Risk Factors (NCEP 2004 ATP III update) Desirable for high risk CHD: ??< 100 ??mg/dL Desirable for moderate risk CHD (2 or more risk factors): < 130 ??mg/dL Desirable for low risk CHD (0-1 risk factors): ??< 160 ??mg/dL VLDL Cholesterol David 20.6 mg/dL LAB CHEMISTRY METHOD 10/28/2023 8:29 AM [facility] Blood Venous blood specimen / Unknown Venipuncture / Unknown 10/28/2023 6:39 AM EST 10/28/2023 8:01 AM EST us Roman Wu MD LAB BLOOD ORDERABLES Fi nal Result [facility] HOSPITAL LAB [address] [place] [address], [place] [phone] from Last 3 Months or Most Recently Relevant to Health Maintenance Insurance MEDICARE [facility] Advance Directives * Full [...] currently active code status orders. Care Teams Rural Mail Carrier Relationship Specialty Start Date End Date Pro Nunn MD [address] [place] [address] Dr [facility] [place] [address] PCP - General Internal Medicine 10/26/23
--- OUTSIDE RECORDS SUMMARY | 2025-02-14 15:50 | XMS_ITS | Clinical Summary ---
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 Active 02-10 00:00: 00 ESSENTIAL (PRIMARY) HYPERTENSION Active 10-30 00:00: 00 PERIPHERAL VASCULAR DISEASE, UNSPECIFIED Active 10-30 00:00: 00 EPILEPSY, UNSP, NOT INTRACTABLE, 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 10-30 00:00: 00 CARPAL TUNNEL SYNDROME, UNSPECIFIED UPPER LIMB Active 10-30 00:00: 00 HYPERLIPIDEM IA, UNSPECIFIED Active 10-30 00:00: 00 JAIL (CURRENT) USE OF ASPIRIN Active 10-30 00:00: 00 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 OF ANTITHROMBOT ICS/ANTIPLAT ELETS Active 10-30 00:00: 00 PRSNL HX OF TIA (TIA), 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 10-30 00:00: 00 Allergies, Adverse Reactions, Alerts Allergy Name Allergy Type Status Severity Reaction(s) Onset Date Inactive Date Treating Clinician Comments BENADRYL Propensity to adverse reactions Active 2025-01 12:29:2 5 Vital Signs Vital Name Observation Time Observation Value Commen ts Temperature 2025-02-11 12:10:00.000 97.5 [degF] BMI (%) 2025-02-11 12:10:00.000 23 kg/m2 Height 2025-02-11 12:10:00.000 74 [in_us] Pulse 2025-02-11 12:10:00.000 66 /min O2 Saturation (%) 2025-02-11 12:10:00.000 100 % Respirations 2025-02-11 12:10:00.000 16 /min Weight (lbs) 2025-02-11 12:10:00.000 180 [lb_av] Systolic Blood Pressure 2025-02-11 12:10:00.000 120 mm [Hg] Diastolic Blood Pressure 2025-02-11 12:10:00.000 68 mm [Hg] Plan of Treatment Planned Activity Planned Date Details Comments Future Scheduled Test AGENCY MAY PERFORM A RESUMPTION OF CARE VISIT FOLLOWING ANY HOSPITAL ADMISSION. PT TO EVALUATE, OBSERVE / ASSESS, AND MONITOR, FURNITURE DIPPER TO OBSERVE AND MONITOR, PROVIDE SKILLED THERAPEUTIC INTERVENTION, ACTIVITY, EDUCATION, AND TRAINING TO ADDRESS; [code = AGENCY MAY PERFORM A RESUMPTION OF CARE VISIT FOLLOWING ANY HOSPITAL ADMISSION. PT TO EVALUATE, OBSERVE / ASSESS, AND MONITOR, FURNITURE DIPPER TO OBSERVE AND MONITOR, PROVIDE SKILLED THERAPEUTIC INTERVENTION, ACTIVITY, EDUCATION, AND TRAINING TO ADDRESS;] Future Scheduled Test CHAIR REINA SFERS (PT/FURNITURE DIPPER) [code = CHAIR TRANSFERS (PT/FURNITURE DIPPER)] Future Scheduled Test PT/FURNITURE DIPPER TO PROVIDE GAIT TRAINING FOR IMPROVED MOBILITY AND /OR TO NORMALIZE GAIT PATTERN [code = PT/FURNITURE DIPPER TO PROVIDE GAIT TRAINING FOR IMPROVED MOBILITY AND /OR TO NORMALIZE GAIT PATTERN] Future Scheduled Test PT/FURNITURE DIPPER TO PROVIDE STAIR TRAINING [code = PT/FURNITURE DIPPER TO PROVIDE STAIR TRAINING] Future Scheduled Test NEUROMUSCU LAR RE-EDUCATION / BALANCE / POSTURAL CONTROL (PT) [code = NEUROMUSCULAR RE-EDUCATION / BALANCE / POSTURAL CONTROL (PT)] Future Scheduled Test THERAPEUTI C EXERCISES AND ESTABLISHING A HOME EXERCISE PROGRAM (PT/FURNITURE DIPPER) [code = THERAPEUTIC EXERCISES AND ESTABLISHING A HOME EXERCISE PROGRAM (PT/FURNITURE DIPPER)] Future Scheduled Test PT/FURNITURE DIPPER TO IDENTIFY FALL RISK FACTORS; EDUCATE THE PATIENT/CAREGIVER ON WAYS TO REDUCE FALL RISK FACTORS AND ESTABLISH HOME EXERCISE PROGRAM TO MINIMIZE FALL RISK. MAY TEACH THE PATIENT FLOOR RECOVERY WHEN CLINICALLY APPROPRIATE [code = PT/FURNITURE DIPPER TO IDENTIFY FALL RISK FACTORS; EDUCATE THE PATIENT/CAREGIVER ON WAYS TO REDUCE FALL RISK FACTORS AND ESTABLISH HOME EXERCISE PROGRAM TO MINIMIZE FALL RISK. MAY TEACH THE PATIENT FLOOR RECOVERY WHEN CLINICALLY APPROPRIATE] Future Scheduled Test PT / FURNITURE DIPPER M AY EDUCATE ON PAIN MANAGEMENT CLINICALLY INDICATED, INCLUDING NON-PHARMACOLOGICAL PAIN REDUCTION TECHNIQUES AND USE OF CRYOTHERAPY OR HEAT UP TO 20 MIN AT A TIME FOR PAIN MANAGEMENT 4 TIMES PER DAY TO LUMBAR REGION. [code = PT / FURNITURE DIPPER MAY EDUCATE ON PAIN MANAGEMENT CLINICALLY INDICATED, INCLUDING NON-PHARMACOLOGICAL PAIN REDUCTION TECHNIQUES AND USE OF CRYOTHERAPY OR HEAT UP TO 20 MIN AT A TIME FOR PAIN MANAGEMENT 4 TIMES PER DAY TO LUMBAR REGION.] Goal Patient Goal - WALK BETTER Goal Provider Goal - Goal Provider Goal - Goal Provider Goal - PT LTG: PATIENT WILL DEMONSTRATE IMPROVED AMBULATION FROM CGA TO INDEPENDENT WITHIN 9 WEEKS PT LTG: PATIENT WILL DEMONSTRATE IMPROVE STAIR SKILLS FROM CGA TO INDEPENDENT WITHIN 9 WEEKS TO ALLOW PATIENT TO GET TO AND FROM CAR INDEPENDENTLY. PT LTG: PATIENT WILL DEMONSTRATE INCREASED STRENGTH OF BILAT LES FROM 3+ TO 4/5 WITHIN 9 WEEKS IN ORDER TO RETURN TO INDEPENDENT TRANSFER AND AMBULATION SKILLS. PT STG: PATIENT WILL DEMONSTRATE IMPROVED ABILITY TO PERFORM SIT TO/FROM STAND TRANSFERS TO REDUCE THE RISK OF SKIN BREAKDOWN AND REDUCE FALL RISK FROM CGA TO INDEPENDENT WITHIN 4 WEEKS. PT STG: PATIENT WILL DEMONSTRATE IMPROVED ABILITY TO PERFORM CHAIR TRANSFERS TO REDUCE THE RISK OF SKIN BREAKDOWN AND FALL RISK FROM CGA TO INDEPENDENT WITHIN 4 WEEKS. PT LTG: PATIENT WILL BE INDEPENDENT WITH IMPLEMENTATION OF HEP WITHIN 5 WEEKS. PT GOAL: PATIENT WILL DEMONSTRATE UNDERSTANDING OF PAIN MANAGEMENT TECHNIQUES EVIDENCED BY REDUCED PAIN IN RLE FROM 4 TO 1 WITHIN 9 WEEKS. Goal Provider Goal - Goal Provider Goal - Goal Provider Goal - Goal Provider Goal - Goal Provider Goal - Encounters Start Date/Time End Date/Time Encounter Type Admission Type Attending [facility] Facility Care Department Encounter ID Discharge Date Discharge Status Discharge Condition Discharge Reason Percent Goals Met 2025-02-11 00:00:00 2025-04-11 00:00:00 Outpatient JU EM [facility] [id number]
--- OUTSIDE RECORDS SUMMARY | 2025-02-14 15:50 | XMS_ITS | Data Portability ---
Author Organization [place] - [facility], [facility] Address [address] [place] [address] Care Team Providers Care Electric Meter Repairer Apprentice Name Role Phone SUNG KARIMI Primary Care Provider [phone] Assessment No assessment recorded. Plan of Treatment Reminders Order Date Submit Date Provider Last Modified By Organization Details Last Modified Time Details Appointments RECHECK 15 2024 10:45A M Ketty Ramirez PA-C Not available Not available Not available INJECTION ONLY 15 2024 11:30A M Ketty Ramirez PA-C Not available Not available Not available Lab None recorded. Referral None recorded. Procedures None recorded. Surgeries None recorded. Imaging XR, knee, 4 or more view - room 113 bilateral knee 4v cw 2023 024 [facility] Office, [address] [facility], [place], [address], 10/31/2024 13:21:17 Medication Orders None recorded. Patient [...] a4ajBk vP9nXo QUaueC m3YtLR FvZlgJ JJ8mAn HZtai3 1f4835 AC0Kqa XqMWaG nKiQtr MwF INTERFACE [facility] [address], [place], [address], 10/03/2024 10:15:22 10/03/20 24 10/03/2024 XR, knee, 4 or more view http:/ [email or web address]:[email or web address] ?Encry pted=s hAaTro YD8dLq bEUv6g %2BXZw aYqtaq 0bqfl% 2Fg9IQ a4ajBk vP9nXo QUaueC m3YtLR FvZlgJ JJ8mAn HZtai3 3z1765 AC0Kqa XqMWaG nKiQtr MwF INTERFACE [facility] [address], [place], [address], 10/03/2024 10:15:24 Result Notes None recorded. Problems Name Problem SNOMED Code Status Onset Date Resolution Date Notes Provider Name and Address Organization Details Recorded Time No complaint s 675822176 Active Status: 'I'; Not Available [facility] 4 09:11:46 Pain of right wrist 010514725602 100 Active 2023 Benny Rodriguez PA-C [address], [place], [address] , [facility] 4 10:27:11 Pain of knee region 8594551626 Active 2023 emily martinez [place] - [facility] 4 10:04:03 Pain of left hand 471067675398 103 Active 2016 Problem Code: M79.642; Problem Code Type: ICD-10; Status: 'A'; Not Available [facility] 4 10:56:11 Pain in right hand 699533162491 109 Active 2016 Problem Code: M79.641; Problem Code Type: ICD-10; Status: 'A'; Not Available [facility] 4 10:56:11 Idiopathi c osteoarth ritis 959820025 Active 2014 Problem Code: M17.11; Problem Code Type: ICD-10; Status: 'A'; Not Available [facility] 4 10:56:12 Carpal tunnel syndrome of left wrist 077365440731 102 Active 2017 Problem Code: G56.02; Problem Code Type: ICD-10; Status: 'A'; Not Available [facility] 4 10:56:12 Trigger finger of left hand 136231193287 93349 Active 2023 Jad Dorman PA-C [address], [place], [address] , [facility] 4 09:05:29 Carpal tunnel syndrome of right wrist 476824970429 108 Active 2023 Jad Dorman PA-C [address], [place], [address] , [facility] 4 09:05:29 Problem Notes None recorded. Procedures Surgical History Date Name Laterality Status Provider Name and Address Organization Details Recorded Time 5 Knee Kenalog 40 1cc Injection, Bilateral completed Ketty Ramirez PA-C [address], [place], [address], [facility] 01/01/2025 11:10:02 5 Gel-One Knee Injection completed Ketty Ramirez PA-C [address], [place], [address], [facility] 11/21/2024 12:35:48 4 Knee Kenalog 40 1cc Injection, Bilateral completed Ketty Ramirez PA-C [address], [place], [address], [facility] 10/07/2024 21:58:12 Imaging Results Imaging Date Name Status LastModified by Organiz ation Details LastModified Time 10/03/2024 XR, knee, 4 or more view completed INTERFACE [facility] [address], [place], [address], 10/03/2024 10:15:22 10/03/2024 XR, knee, 4 or more view completed INTERFACE [facility] [address], [place], [address], 10/03/2024 10:15:24 Procedure Notes None recorded. Medical Equipment None Reported. Allergies Allergen ID Allergen Name Allergen Category Reaction Reaction Severity Criticality Documentation Date Start Date Code Code System Note Provider Name and Address Organization Details Recorded Time 758748 Benadryl medicatio n Not available Not available Not available 01/10/202448767 7 RxNorm SHREYAS martinez [facility] 08:40:25 Medications Name Sig Start Date [...] Updated DateTime 06/17/2024 187.96 cm 23.8 kg/m2 33867.59 g KELIN JOHNSON [facility] 06/17/2024 15:57:49 Date Recorded Body height Body mass index (BMI) Body weight Provider Name and Address Organization Details Last Updated DateTime 07/05/2024 187.96 cm 23.8 kg/m2 59349.59 g KELIN JOHNSON [facility] 07/05/2024 11:08:18 Date Recorded Body height Body mass index (BMI) Body weight Provider Name and Address Organization Details Last Updated DateTime 10/03/2024 187.96 cm 23.8 kg/m2 60622.59 g emily izaguirre [facility] 10/03/2024 10:02:39 Date Recorded Body height Provider Name an d Address Organization Details Last Updated DateTime 11/21/2024 187.96 cm Lina Diaz [facility] 11/21/2024 11:39:41 Date Recorded Body height Body mass index (BMI) Body weight Provider Name and Address Organization Details Last Updated DateTime 01/01/2025 187.96 cm 23.8 kg/m2 27386.59 g KAYLIA L'HEUREUX [facility] 01/01/2025 10:41:11 Social History None recorded. Functional Status None recorded. Mental Status None recorded. Family History Nothing Reported. Medical History No medical history recorded. Past Encounters Encounter ID Performer Location Encounter Start Date Encounter Closed Date Diagnosis/Indication Diagnosis SNOMED-CT Code Diagnosis ICD10 Code Diagnosis Note [id number] Jad Dorman PA-C [facility] [address] [facility] [place] [address] 01/10/2024 08:28:52 01/15/2024 16:32:10 Trigger finger of left hand 3334501853 9865413 M65.30 Patient reports that his pain seemed [...] our office immediatel y. Numbness of hand 2451757 04 R20.0 Carpal riley dipak syndrome of right wrist 5635474161 16465 G56.01 I recommende d continued nighttime wrist splinting, as well as EMG to evaluate for compressio n neuropathy . He will follow-up after the EMG for discussion of results and treatment [id number] MD Louisa Thomas [facility] [address] [place] [address] 04/29/2024 10:41:37 05/16/2024 15:18:47 Bilateral carpal tunnel syndrome 1044078191 1363777 G56.03 [id number] MARTHA Mann [facility] [address] [place], [place] [address] 06/07/2024 08:22:27 06/07/2024 08:51:25 Carpal tunnel syndrome of right wrist 3306573678 42871 G56.01 [id number] MD Louisa Thomas [address] [place] [address] [place] [address] 06/10/2024 13:26:31 07/05/2024 12:52:42 Carpal tunnel syndrome of right wrist 5820079507 26886 G56.01 [id number] MD Louisa Thomas [address] [place] [address] [place] [address] 06/17/2024 15:42:06 07/10/2024 07:17:44 Carpal tunnel syndrome of right wrist 1203026945 62975 G56.01 [id number] MD Louisa Thomas [address] [place] [address] [place] [place] [address] 07/05/2024 10:57:15 07/29/2024 19:06:48 Postoperative care 658329428 Z48.89 Postoperat tayla wound infection 54545856 T81.40XA [id number] MARTHA Yun [address] [place] [address] 10/03/2024 09:28:21 10/31/2024 13:21:17 Pain of knee region 7434060125 M25.561 M25.562 Primary go narthrosis, bilateral 371239891 M17.0 [id number] MARTHA Yun - [place] 3[address] [place] [address] 11/21/2024 11:28:56 12/03/2024 12:05:29 Osteoarthritis of right knee joint 2076838492 92317 M17.11 [id number] MARTHA Yun [address] [place] [address] 01/01/2025 10:37:09 01/14/2025 14:08:02 Primary gonarthrosis, bilateral 639205035 M17.0 Health Concerns Section Related Observation LastModified by Organization Detai ls LastModified Time None Recorded Concern Status LastModified by Organization Details LastModified Time None Recorded Advance Directives Directive None Recorded Payers Encounter Date Sequence Insurance Name Policy Number Policy Jacques Covered Member ID Jacques Member ID Guarantor Name 06/17/2024 2 FOR[facility]LY [facility] INDEMNITY PLAN - UNICARE [id number] Geoffrey Waldron Lizandro [id number] Geoffrey Waldron Lizandro 06/17/2024 1 [place]: [employer] Geoffrey Waldron Lizandro [id number] Geoffrey S Lizandro 07/05/2024 2 [employer] INDEMNITY PLAN - UNICARE [id number] Geoffrey Waldron Lizandro [id number] Geoffrey Waldron Lizandro 07/05/2024 1 [place] [employer] Geoffrey Waldron Lizandro [id number] Geoffrey S Lizandro 10/03/2024 2 COMMONWEALTH INDEMNITY PLAN - UNICARE [id number] Geoffrey S Lizandro [id number] Geoffrey Vanita Lizandro 10/03/2024 1 [place] Geoffrey S Lizandro [id number] Geoffrey S Lizandro 11/21/2024 2 [facility] [id number] Geoffrey Waldron Lizandro [id number] Geoffrey Vanita Lizandro 11/21/2024 1 [place] Geoffrey Bone [id number] Geoffrey S Lizandro 01/01/2025 2 [facility] [id number] Geoffrey Bone [id number] Geoffrey Bone 01/01/2025 1 [place] [facility] SERVICES Geoffrey Bone [id number] Geoffrey Bone Notes Date Note Type [...] comfortable with that plan. Donald Vitale MD [address] [place] [address] [address], [place], [address], [facility] 06/21/2024 08:50:14 4 text/html Diagnosis: Status post [...] contact our office immediately Donald Vitale MD [address] [place] [address] [address], [place], [address], [facility] 07/05/2024 11:24:48 4 text/html I am seeing [...] and lucid. Normal insight, affect and grooming. WIRING INSPECTOR: Gross motor coordination is intact. No spasticity [...] strength. X-rays ordered, obtained and reviewed at [facility] today include {{4 views of bilateral knees.*}} Images reveal severe end-stage osteoarthritis of the left medial compartment and right lateral compartment with rkgz-eq-zqet articulation, subchondral sclerosis, and osteophyte formation. Degenerative [...] relief. All questions answered. Ketty Ramirez PA-C [address] [place] [address] [address], [place], [address], [facility] 10/07/2024 21:59:22 5 text/html I am seeing [...] next 24-48 hours. Follow-up as symptoms dictate. [facility] speech recognition line operator software was used to create portions of this document. An attempt at proofreading has been made to minimize errors. Please call for corrections. Ketty Ramirez PA-C [address] [place] [address] [address] [facility], [place], [address], [facility] 11/21/2024 12:36:07 5 text/html I am seeing [...] eligible in April. He continues to take zvbf-toa-gsabuld medication intermittently for his pain. He uses [...] every 3 months. Ketty Ramirez PA-C [address] [facility] [address], [place], [address], [facility] 01/01/2025 11:10:23
== END 2025-02-14 16:57 | disposition home or self-care (01) ==
LOC: HO.HMCH 15:48
PROVIDERS: PCP Internal Medicine; Visit Provider Internal Medicine
DX: M48.061 Spinal stenosis, lumbar region without neurogenic claudication (principal); I25.10 Atherosclerotic heart disease of native coronary artery without angina pectoris

== ENCOUNTER → 2025-02-14 15:48 | Outpatient (BNVA) | payer MEDICARE, OTHER, SELFPAY | PROVIDERS: PCP Internal Medicine; Visit Provider Internal Medicine ==

== ENCOUNTER 2025-02-18 18:07 | Inpatient (IN) | payer MEDICARE, OTHER, SELFPAY ==
--- NOTE | ~2025-02-18 | CT_ITS ---
CLINICAL HISTORY: abd pain, nausea CT abdomen and pelvis with contrast Comparison: CT of the abdomen and pelvis from 08/31/2024 Findings: No significant change in partially calcified 1 cm nodule in the right lower lobe. Mild scarring and atelectasis of the imaged lung bases. Small cystic lesions of the liver unchanged including right lobe (image 20 of series 3). Gallbladder is mildly distended. Adrenal hyperplasia is unchanged. The spleen is nonenlarged. Mild-moderate volume loss of the pancreas again noted. No significant change in cystic lesions in the kidneys with one measuring 4.3 cm on the right. No hydronephrosis. Mild perinephric stranding. Calcified and noncalcified plaque involving the imaged aorta and its branches. Enteric contrast is in dilated loops of small intestine with multiple small bowel loops measuring 4 cm diameter. This is concerning for small bowel obstruction with question transition point in the right lower quadrant. Wall thickening of the terminal ileum is nonspecific. Interloop edema is multifocal. No definite pneumatosis or free intraperitoneal air at this time. Severe stool burden is present, including the cecum. The appendix is not definitively seen. Diverticula are redemonstrated including sigmoid colon. Mild wall thickening of the large intestine is nonspecific including adjacent to rectosigmoid junction and/or anastomosis with distention of the majority of the rectum. Prostate gland or remnant measures 2.5 cm. Mild wall thickening of the urinary bladder is nonspecific. Trace right and [id number] left fat containing inguinal hernias. Degenerative changes include the hips, pubic symphysis, SI joints, and spine. Multilevel Schmorl's nodes. No significant change in mild old vertebral height losses. Facet arthropathy is multifocal. IMPRESSION: Small bowel obstruction. This document has been electronically signed by: Darci Parks MD on 02/18/2025 23:12:34
[2025-02-18 18:24] VITALS: BP 131/68; BP 135/68; PULSE 72; PULSE 73; RESP 18; TEMP 36.7; O2SAT 97; O2SAT 99; BMI 23.7
--- OUTSIDE RECORDS SUMMARY | 2025-02-18 19:12 | XMS_ITS | Clinical Summary ---
Author Organization [facility] Address [address] [place] [address] Phone Care Team Providers Care Cane Flume Feeding Machine Operator Name Role Phone Pro Nunn MD Primary Care Provider [phone] Allergies Active Allergy Reactions Criticality Noted Date [...] Hypertension Hyperlipidemia TIA (transient ischemic attack) Cancer ([facility] V24, [facility] V28) Social History Tobacco Use Types Packs/Day [...] LAB CHEMISTRY METHOD 10/28/2023 8:29 AM EST [facility] Comment: Cholesterol Risk Factors (NCEP 2004 ATP III update) Desirable: ?<200 mg/dL Borderline Risk: ? 200-239 mg/dL High Risk: ?>239 mg/dL Triglycerides 103 0 - 150 mg/dL LAB CHEMISTRY METHOD 10/28/2023 8:29 AM EST [facility] HDL 34 23 - 92 mg/dL LAB CHEMISTRY METHOD 10/28/2023 8:29 AM [facility] LDL Calculated 25 <100 mg/dL LAB CHEMISTRY METHOD 10/28/2023 8:29 AM [facility] LAB Comment: LDL Cholesterol Risk Factors (NCEP 2004 ATP III update) Desirable for high risk CHD: ??< 100 ??mg/dL Desirable for moderate risk CHD (2 or more risk factors): < 130 ??mg/dL Desirable for low risk CHD (0-1 risk factors): ??< 160 ??mg/dL VLDL Cholesterol David 20.6 mg/dL LAB CHEMISTRY METHOD 10/28/2023 8:29 AM [facility] LAB Blood Venous blood specimen / Unknown Venipuncture / Unknown 10/28/2023 6:39 AM EST 10/28/2023 8:01 AM EST us Roman Wu MD LAB BLOOD ORDERABLES Fi nal Result [facility] H[facility]PITAL LAB [address] [place] [address], [place] [phone] from Last 3 Months or Most Recently Relevant to Health Maintenance Insurance MEDICARE [facility] Advance Directives * Full Code - [...] currently active code status orders. Care Teams Cane Flume Feeding Machine Operator Relationship Specialty Start Date End Date Pro Nunn MD [address] [place] [address] Dr [facility] [place] [address] PCP - General Internal Medicine 10/26/23
--- OUTSIDE RECORDS SUMMARY | 2025-02-18 19:12 | XMS_ITS | Clinical Summary ---
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 ICS/ANTIPLAT ELETS Active 10-30 00:00: 00 PRSNL HX OF TIA (TIA), 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 10-30 00:00: 00 Allergies, Adverse Reactions, Alerts Allergy Name Allergy Type Status Severity Reaction(s) Onset Date Inactive Date Treating Clinician Comments BENADRYL Propensity to adverse reactions Active 2025-01 12:29:2 5 Vital Signs Vital Name Observation Time Observation Value Commen ts Temperature 2025-02-18 13:58:00.000 96.9 [degF] Temperature 2025-02-17 15:29:00.000 97 [degF] Temperature 2025-02-11 12:10:00.000 97.5 [degF] BMI (%) 2025-02-11 12:10:00.000 23 kg/m2 Height 2025-02-11 12:10:00.000 74 [in_us] Pulse 2025-02-18 13:58:00.000 72 /min Pulse 2025-02-17 15:29:00.000 60 /min Pulse 2025-02-11 12:10:00.000 66 /min O2 Saturation (%) 2025-02-18 13:58:00.000 97 % O2 Saturation (%) 2025-02-17 15:29:00.000 96 % O2 Saturation (%) 2025-02-11 12:10:00.000 100 % Respirations 2025-02-18 13:58:00.000 16 /min Respirations 2025-02-17 15:29:00.000 16 /min Respirations 2025-02-11 12:10:00.000 16 /min Weight (lbs) 2025-02-11 12:10:00.000 180 [lb_av] Systolic Blood Pressure 2025-02-18 13:58:00.000 140 mm [Hg] Systolic Blood Pressure 2025-02-17 15:31:00.000 138 mm [Hg] Systolic Blood Pressure 2025-02-11 12:10:00.000 120 mm [Hg] Diastolic Blood Pressure 2025-02-18 13:58:00.000 85 mm [Hg] Diastolic Blood Pressure 2025-02-17 15:31:00.000 80 mm [Hg] Diastolic Blood Pressure 2025-02-11 12:10:00.000 68 mm [Hg] Plan of Treatment Planned Activity Planned Date Details Comments Future Scheduled Test AGENCY MAY PERFORM A RESUMPTION OF CARE VISIT FOLLOWING ANY HOSPITAL ADMISSION. PT TO EVALUATE, OBSERVE / ASSESS, AND MONITOR, [facility]SM[facility] TO OBSERVE AND MONITOR, PROVIDE SKILLED THERAPEUTIC INTERVENTION, ACTIVITY, EDUCATION, AND TRAINING TO ADDRESS; [code = AGENCY MAY PERFORM A RESUMPTION OF CARE VISIT FOLLOWING ANY HOSPITAL ADMISSION. PT TO EVALUATE, OBSERVE / ASSESS, AND MONITOR, [facility] GUNSMITH TO OBSERVE AND MONITOR, PROVIDE SKILLED THERAPEUTIC INTERVENTION, ACTIVITY, EDUCATION, AND TRAINING TO ADDRESS;] Future Scheduled Test CHAIR REINA SFERS (PT/[facility]) [code = CHAIR TRANSFERS (PT/[facility])] Future Scheduled Test PT/[facility]IST[facility]ORAT[facility] GUNSMITH TO PROVIDE GAIT TRAINING FOR IMPROVED MOBILITY AND /OR TO NORMALIZE GAIT PATTERN [code = PT/BALLIST[facility] LABORATORY GUNSMITH TO PROVIDE GAIT TRAINING FOR IMPROVED MOBILITY AND /OR TO NORMALIZE GAIT PATTERN] Future Scheduled Test PT/[facility]ORAT[facility] GUNSMITH TO PROVIDE STAIR TRAINING [code = PT/[facility]IST[facility] LABORAT[facility] GUNSMITH TO PROVIDE STAIR TRAINING] Future Scheduled Test NEUROMUSCU LAR RE-EDUCATION / BALANCE / POSTURAL CONTROL (PT) [code = NEUROMUSCULAR RE-EDUCATION / BALANCE / POSTURAL CONTROL (PT)] Future Scheduled Test THERAPEUTI C EXERCISES AND ESTABLISHING A HOME EXERCISE PROGRAM (PT/[facility] GUNSMITH) [code = THERAPEUTIC EXERCISES AND ESTABLISHING A HOME EXERCISE PROGRAM (PT/[facility]SM[facility])] Future Scheduled Test PT/[facility]ORAT[facility] GUNSMITH TO IDENTIFY FALL RISK FACTORS; EDUCATE THE PATIENT/CAREGIVER ON WAYS TO REDUCE FALL RISK FACTORS AND ESTABLISH HOME EXERCISE PROGRAM TO MINIMIZE FALL RISK. MAY TEACH THE PATIENT FLOOR RECOVERY WHEN CLINICALLY APPROPRIATE [code = PT/[facility]ORAT[facility] GUNSMITH TO IDENTIFY FALL RISK FACTORS; EDUCATE THE PATIENT/CAREGIVER ON WAYS TO REDUCE FALL RISK FACTORS AND ESTABLISH HOME EXERCISE PROGRAM TO MINIMIZE FALL RISK. MAY TEACH THE PATIENT FLOOR RECOVERY WHEN CLINICALLY APPROPRIATE] Future Scheduled Test PT / [facility]SM[facility] M AY EDUCATE ON PAIN MANAGEMENT CLINICALLY INDICATED, INCLUDING NON-PHARMACOLOGICAL PAIN REDUCTION TECHNIQUES AND USE OF CRYOTHERAPY OR HEAT UP TO 20 MIN AT A TIME FOR PAIN MANAGEMENT 4 TIMES PER DAY TO LUMBAR REGION. [code = PT / [facility] MAY EDUCATE ON PAIN MANAGEMENT CLINICALLY INDICATED, [...] End Date/Time Encounter Type Admission Type Attending [facility] Department Encounter ID Discharge Date Discharge Status Discharge Condition Discharge Reason Percent Goals Met 2025-02-11 00:00:00 2025-04-11 00:00:00 Outpatient JU EM [facility] [id number] .00
--- OUTSIDE RECORDS SUMMARY | 2025-02-18 19:12 | XMS_ITS | Data Portability ---
Author Organization [place] - [facility], [facility] Address [address] [place] [address] Care Team Providers Care Second Crusher Name Role Phone SUNG KARIMI Primary Care Provider [phone] Assessment No assessment recorded. Plan of Treatment [...] 113 bilateral knee 4v cw 2023 024 [email or web address] [facility] Office, [address], [place], [address], 10/31/2024 13:21:17 Medication Orders None recorded. Patient [...] a4ajBk vP9nXo QUaueC m3YtLR FvZlgJ JJ8mAn HZtai3 7x7767 AC0Kqa XqMWaG nKiQtr MwF INTERFACE [facility] [address], [place], [address], 10/03/2024 10:15:22 10/03/20 24 10/03/2024 XR, knee, 4 or more view http:/ [email or web address] ?Encry pted=s hAaTro YD8dLq bEUv6g %2BXZw aYqtaq 0bqfl% 2Fg9IQ a4ajBk vP9nXo QUaueC m3YtLR FvZlgJ JJ8mAn HZtai3 6p0349 AC0Kqa XqMWaG nKiQtr MwF INTERFACE [facility] [address], [place], [address], 10/03/2024 10:15:24 Result Notes None recorded. Problems Name Problem SNOMED Code Status Onset Date Resolution Date Notes Provider Name and Address Organization Details Recorded Time No complaint s 967228356 Active Status: 'I'; Not Available [facility] 4 09:11:46 Pain of right wrist 701857212020 100 Active 2023 Benny Rodriguez PA-C [address], [facility] [place], [address] , [facility] 4 10:27:11 Pain of knee region 8620284720 Active 2023 emily martinez [place] - [facility] 4 10:04:03 Pain of left hand 795466122012 103 Active 2016 Problem Code: M79.642; Problem Code Type: ICD-10; Status: 'A'; Not Available [facility] 4 10:56:11 Pain in right hand 797747874542 109 Active 2016 Problem Code: M79.641; Problem Code Type: ICD-10; Status: 'A'; Not Available [facility] 4 10:56:11 Idiopathi c osteoarth ritis 555864031 Active 2014 Problem Code: M17.11; Problem Code Type: ICD-10; Status: 'A'; Not Available [facility] 4 10:56:12 Carpal tunnel syndrome of left wrist 376905082495 102 Active 2017 Problem Code: G56.02; Problem Code Type: ICD-10; Status: 'A'; Not Available [facility] 4 10:56:12 Trigger finger of left hand 324289411379 02732 Active 2023 Jad Dorman PA-C [address], [place], [address] , [facility] 4 09:05:29 Carpal tunnel syndrome of right wrist 989658480389 108 Active 2023 Jad Dorman PA-C [address], [place], [address] , [facility] 4 09:05:29 Problem Notes None recorded. Procedures Surgical History Date Name Laterality Status Provider Name and Address Organization Details Recorded Time 5 Knee Kenalog 40 1cc Injection, Bilateral completed Ketty Ramirez PA-C [address], [place], [address], [facility] 01/01/2025 11:10:02 5 Gel-One Knee Injection completed Ketty Ramirez PA-C [address], [place], [address], [facility] 11/21/2024 12:35:48 4 Knee Kenalog 40 1cc Injection, Bilateral completed Ketty Ramirez PA-C [address], [place], [address], [facility] 10/07/2024 21:58:12 Imaging Results Imaging Date Name Status LastModified by Organiz ation Details LastModified Time 10/03/2024 XR, knee, 4 or more view completed INTERFACE [facility] [address], [place], [address], 10/03/2024 10:15:22 10/03/2024 XR, knee, 4 or more view completed INTERFACE [facility] [address], [place], [address], 10/03/2024 10:15:24 Procedure Notes None recorded. Medical Equipment None Reported. Allergies Allergen ID Allergen Name Allergen Category Reaction Reaction Severity Criticality Documentation Date Start Date Code Code System Note Provider Name and Address Organization Details Recorded Time 061095 Benadryl medicatio n Not available Not available Not available 01/10/202473045 7 RxNorm SHREYAS martinez [facility] 08:40:25 Medications Name Sig Start Date [...] Updated DateTime 06/17/2024 187.96 cm 23.8 kg/m2 06699.59 g KELIN JOHNSON [facility] 06/17/2024 15:57:49 Date Recorded Body height Body mass index (BMI) Body weight Provider Name and Address Organization Details Last Updated DateTime 07/05/2024 187.96 cm 23.8 kg/m2 47304.59 g KELIN JOHNSON [facility] 07/05/2024 11:08:18 Date Recorded Body height Body mass index (BMI) Body weight Provider Name and Address Organization Details Last Updated DateTime 10/03/2024 187.96 cm 23.8 kg/m2 09553.59 g emily izaguirre [facility] 10/03/2024 10:02:39 Date Recorded Body height Provider Name an d Address Organization Details Last Updated DateTime 11/21/2024 187.96 cm Lina Diaz [facility] 11/21/2024 11:39:41 Date Recorded Body height Body mass index (BMI) Body weight Provider Name and Address Organization Details Last Updated DateTime 01/01/2025 187.96 cm 23.8 kg/m2 20829.59 g KAYLIA L'HEUREUX [facility] 01/01/2025 10:41:11 Social History None recorded. Functional Status None recorded. Mental Status None recorded. Family History Nothing Reported. Medical History No medical history recorded. Past Encounters Encounter ID Performer Location Encounter Start Date Encounter Closed Date Diagnosis/Indication Diagnosis SNOMED-CT Code Diagnosis ICD10 Code Diagnosis Note [id number] [facility] [address] [place] [address] 01/10/2024 08:28:52 01/15/2024 16:32:10 Trigger finger of left hand 5898134841 0334019 M65.30 Patient reports that his pain seemed [...] our office immediatel y. Numbness of hand 5904803 04 R20.0 Carpal riley dipak syndrome of right wrist 5641842126 95230 G56.01 I recommende d continued nighttime wrist splinting, as well as EMG to evaluate for compressio n neuropathy . He will follow-up after the EMG for discussion of results and treatment [id number] MD Louisa Thomas [address] [facility] [address] [place] [address] 04/29/2024 10:41:37 05/16/2024 15:18:47 Bilateral carpal tunnel syndrome 3976025818 0130598 G56.03 [id number] MARTHA Mann [facility] [facility] [address] [place], [place] [address] 06/07/2024 08:22:27 06/07/2024 08:51:25 Carpal tunnel syndrome of right wrist 7946462209 23113 G56.01 [id number] MD Louisa Thomas [address] [place] [address] [place] [address] 06/10/2024 13:26:31 07/05/2024 12:52:42 Carpal tunnel syndrome of right wrist 2101713077 11828 G56.01 [id number] MD Louisa Thomas [address] [place] [address] [place] [address] 06/17/2024 15:42:06 07/10/2024 07:17:44 Carpal tunnel syndrome of right wrist 1362966522 01572 G56.01 [id number] MD Louisa Thomas [address] [place] [address] [place] [address] 07/05/2024 10:57:15 07/29/2024 19:06:48 Postoperative care 935074603 Z48.89 Postoperat tayla wound infection 53949620 T81.40XA [id number] MARTHA Yun [address] [place] [address] 10/03/2024 09:28:21 10/31/2024 13:21:17 Pain of knee region 8686065596 M25.561 M25.562 Primary go narthrosis, bilateral 936920612 M17.0 [id number] MARTHA Yun - [place] [address] [place] [address] 11/21/2024 11:28:56 12/03/2024 12:05:29 Osteoarthritis of right knee joint 5640174433 81806 M17.11 [id number] MARTHA Yun [address] [place] [address] 01/01/2025 10:37:09 01/14/2025 14:08:02 Primary gonarthrosis, bilateral 985223782 M17.0 Health Concerns Section Related Observation LastModified by Organization Detai ls LastModified Time None Recorded Concern Status LastModified by Organization Details LastModified Time None Recorded Advance Directives Directive None Recorded Payers Encounter Date Sequence Insurance Name Policy Number Policy Jacques Covered Member ID Jacques Member ID Guarantor Name 06/17/2024 2 [facility] INDEMNITY PLAN - UNICARE [id number] Geoffrey Waldron Lizandro [id number] Geoffrey Waldron Lizandro 06/17/2024 1 [place] [employer] Geoffrey Waldron Lizandro [id number] Geoffrey S Lizandro 07/05/2024 2 [employer] INDEMNITY PLAN - UNICARE [id number] Geoffrey Waldron Lizandro [id number] Geoffrey Waldron Lizandro 07/05/2024 1 [place] [employer] Geoffrey Waldron Lizandro [id number] Geoffrey S Lizandro 10/03/2024 2 [employer] INDEMNITY PLAN - UNICARE [id number] Geoffrey S Lizandro [id number] Geoffrey Vanita Lizandro 10/03/2024 1 [place] [employer] Geoffrey S Lizandro [id number] Geoffrey S Lizandro 11/21/2024 2 [facility] [id number] Geoffrey Waldron Lizandro [id number] Geoffrey Vanita Lizandro 11/21/2024 1 [place] [employer] Geoffrey Bone [id number] Geoffrey S Lizandro 01/01/2025 2 [facility] [id number] Geoffrey Bone [id number] Geoffrey Bone 01/01/2025 1 [place] [facility] Geoffrey Bone [id number] Geoffrey Bone Notes Date Note Type [...] comfortable with that plan. Donald Vitale MD [address] [place] [address] [address], [place], [address], [facility] 06/21/2024 08:50:14 4 text/html Diagnosis: Status [...] contact our office immediately Donald Vitale MD [address] [place] [address] [address], [place], [address], [facility] 07/05/2024 11:24:48 [...] and lucid. Normal insight, affect and grooming. 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 No spasticity [...] strength. X-rays ordered, obtained and reviewed at [facility] today include {{4 views of bilateral knees.*}} Images reveal severe end-stage osteoarthritis of the left medial compartment and right lateral compartment with xiqd-pw-fjlf articulation, subchondral sclerosis, and osteophyte formation. Degenerative [...] relief. All questions answered. Ketty Ramirez PA-C [address] [place] [address] [address], [place], [address], [facility] 10/07/2024 21:59:22 5 text/html I am [...] next 24-48 hours. Follow-up as symptoms dictate. [facility] speech recognition turn supervisor software was used to create portions of this document. An attempt at proofreading has been made to minimize errors. Please call for corrections. Ketty Ramirez PA-C [address] [place] [address] [address] [facility], [place], [address], [facility] 11/21/2024 12:36:07 5 text/html I am [...] eligible in April. He continues to take dujc-ayn-jtuvikm medication intermittently for his pain. He uses [...] every 3 months. Ketty Ramirez PA-C [address], [place], [address], [facility] 01/01/2025 11:10:23
--- OUTSIDE RECORDS SUMMARY | 2025-02-18 19:12 | XMS_ITS | Clinical Summary ---
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 Active 02-10 00:00: 00 ESSENTIAL (PRIMARY) HYPERTENSION Active 10-30 00:00: 00 PERIPHERAL VASCULAR DISEASE, UNSPECIFIED Active 10-30 00:00: 00 EPILEPSY, UNSP, NOT INTRACTABLE, 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 PT TO EVALUATE, OBSERVE / ASSESS, AND MONITOR, GLOBAL RECRUITER TO OBSERVE AND MONITOR, PROVIDE SKILLED THERAPEUTIC INTERVENTION, ACTIVITY, EDUCATION, AND TRAINING TO ADDRESS;] Future Scheduled Test CHAIR REINA SFERS (PT/GLOBAL RECRUITER) [code = CHAIR TRANSFERS (PT/GLOBAL RECRUITER)] Future Scheduled Test PT/GLOBAL RECRUITER TO PROVIDE GAIT TRAINING FOR IMPROVED MOBILITY AND /OR TO NORMALIZE GAIT PATTERN [code = PT/GLOBAL RECRUITER TO PROVIDE GAIT TRAINING FOR IMPROVED MOBILITY AND /OR TO NORMALIZE GAIT PATTERN] Future Scheduled Test PT/GLOBAL RECRUITER TO PROVIDE STAIR TRAINING [code = PT/GLOBAL RECRUITER TO PROVIDE STAIR TRAINING] Future Scheduled Test NEUROMUSCU LAR RE-EDUCATION / BALANCE / POSTURAL CONTROL (PT) [code = NEUROMUSCULAR RE-EDUCATION / BALANCE / POSTURAL CONTROL (PT)] Future Scheduled Test THERAPEUTI C EXERCISES AND ESTABLISHING A HOME EXERCISE PROGRAM (PT/GLOBAL RECRUITER) [code = THERAPEUTIC EXERCISES AND ESTABLISHING A HOME EXERCISE PROGRAM (PT/GLOBAL RECRUITER)] Future Scheduled Test PT/GLOBAL RECRUITER TO IDENTIFY FALL RISK FACTORS; EDUCATE THE PATIENT/CAREGIVER ON WAYS TO REDUCE FALL RISK FACTORS AND ESTABLISH HOME EXERCISE PROGRAM TO MINIMIZE FALL RISK. MAY TEACH THE PATIENT FLOOR RECOVERY WHEN CLINICALLY APPROPRIATE [code = PT/GLOBAL RECRUITER TO IDENTIFY FALL RISK FACTORS; EDUCATE THE PATIENT/CAREGIVER ON WAYS TO REDUCE FALL RISK FACTORS AND ESTABLISH HOME EXERCISE PROGRAM TO MINIMIZE FALL RISK. MAY TEACH THE PATIENT FLOOR RECOVERY WHEN CLINICALLY APPROPRIATE] Future Scheduled Test PT / GLOBAL RECRUITER M AY EDUCATE ON PAIN MANAGEMENT CLINICALLY INDICATED, INCLUDING NON-PHARMACOLOGICAL PAIN REDUCTION TECHNIQUES AND USE OF CRYOTHERAPY OR HEAT UP TO 20 MIN AT A TIME FOR PAIN MANAGEMENT 4 TIMES PER DAY TO LUMBAR REGION. [code = PT / GLOBAL RECRUITER MAY EDUCATE ON PAIN MANAGEMENT CLINICALLY INDICATED, [...] End Date/Time Encounter Type Admission Type Attending [facility] Department Encounter ID Discharge Date Discharge Status Discharge Condition Discharge Reason Percent Goals Met 2025-02-11 00:00:00 2025-04-11 00:00:00 Outpatient JU EM [facility] [id number] .00
[2025-02-18 20:01] LABS: Appearance Urine Clear; Color Urine Yellow; Glucose Urine UA 100 mg/dL (Negative); Leukocyte Esterase Urine Negative (Negative); Nitrite Urine Negative (Negative); PH 6.5 (5.0-9.0); Specific Gravity - Urine 1.025 (1.005-1.025); Urine Blood Negative (Negative); Urine Ketones Trace mg/dL (Negative); Urine Protein Trace mg/dL (Neg-Trace)
--- NOTE | 2025-02-18 20:02 | ED_ITS ---
HPI - Abdominal Pain General Chief Complaint: Abdominal Pain Stated Complaint: abd pain Time Seen by Provider: 02/18/25 18:28 History of Present Illness HPI narrative: Patient is an 89-year-old male with a history of colon cancer history of small- bowel obstruction in the past presented today with having nausea vomiting small BM this morning. Diffuse abdominal pain worse in the lower abdomen symptoms very similar to previous bouts of small bowel obstruction Related Data Home Medications ?Medication ?Instructions ?Recorded ?Confirmed aspirin 81 mg tablet,delayed 81 mg PO DAILY 12/01/22 01/13/25 release cyanocobalamin (vitamin B-12) 1,000 mcg PO DAILY 12/01/22 01/13/25 1,000 mcg tablet docusate sodium 100 mg capsule 100 mg PO DAILY PRN Constipation 01/12/24 01/13/25 amlodipine 2.5 mg tablet 5 mg PO BEDTIME 09/16/24 01/13/25 gabapentin 100 mg capsule 200 mg PO TID 02/14/25 prednisone 10 mg tablet 40 mg PO DAILY 02/14/25 Previous Rx's ?Medication ?Instructions ?Recorded lactulose 10 gram/15 mL oral 30 ml PO DAILY PRN for 10/17/23 solution constipation #946 mL blood pressure monitor #1 ea 09/11/24 triamcinolone acetonide 0.5 % 1 appl topical BID 14 days #30 01/13/25 topical cream grams levetiracetam 250 mg tablet 250 mg PO BID 90 days #180 tabs 01/16/25 rosuvastatin 10 mg tablet 10 mg PO DAILY #90 tabs 01/24/25 Walker #1 ea 02/14/25 lorazepam 0.5 mg tablet 0.5 mg PO .COMPLEX PRN anxiety #2 02/14/25 tabs Allergies Allergy/AdvReac Type Severity Reaction Status Date / Time diphenhydramine AdvReac Intermediate Hallucinati Verified 02/18/25 18:26 [From Benadryl] ons Review of Systems Review of Systems Positive nausea positive abdominal pain Yes all other systems are reviewed and are negative PMFSH Past Medical History Attestation statement: The following information was validated with the patient. Medical History Overweight (BMI 25.0-29.9) CAD (coronary artery disease) Afib CVA (cerebral vascular accident) Self-catheterizes urinary bladder History of trigger finger Arthritis Preoperative cardiovascular examination Symptomatic stenosis of left carotid artery Rectal cancer Bladder neck contracture GERD (gastroesophageal reflux disease) Urinary incontinence Obstructive sleep apnea Coronary artery disease Type 2 diabetes mellitus with hyperglycemia Small bowel obstruction Erectile dysfunction Peripheral vascular disease Prostate cancer Hematuria Constipation BPH (benign prostatic hyperplasia) Prostate cancer Colon cancer Dysuria Hyperlipidemia, unspecified Essential hypertension Surgical History History of left-sided carotid endarterectomy History of coronary artery stent placement History of exploratory laparotomy History of carpal tunnel release History of prostate surgery (~2016) History of bladder surgery (~01/04/18) History of colectomy History of appendectomy Family History Family History Father Pancreatic cancer Mother No problems noted. Brother Liver cancer Social History Social History Household Members: Children Household Members Other:: Granddaughter Housing: House Are you a primary healthcare insurance sales agent to a significant other at home: No Do you presently have visiting nurse or other home services: No Unable to assess alcohol history related to: Unable to respond Alcohol intake: never Patient Tobacco Use Status: Never used Tobacco Tobacco use type: Cigarette Smoked in Last 30 Days: No e-Cigarette/Vaping Use: Never Used Second Hand Smoke Exposure: No Use of substances other than those prescribed or required for medical reasons: No Advance Directives: Yes Advance Directives on File: Yes Advance Directives Date on File: 09/29/20 service: No Current occupational status: retired Cognitive needs: Yes (cane, walker) Hearing needs: Yes (hearing aide) Vision needs: Yes (glasses) Physical Exam ED Vital Signs: Vital Signs - 24 hr 02/18/25 18:24 02/18/25 21:23 Temperature 98.0 F 97.6 F Pulse Rate 72 71 Respiratory Rate 18 20 Blood Pressure 131/68 144/80 H Pulse Oximetry 97 97 Oxygen Delivery Method Room Air Room Air BMI result Body Mass Index 23.7 Appearance: Alert. Oriented X3. No acute distress. Eyes: Pupils equal, round and reactive to light. ENT: Pharynx normal. Neck: Normal inspection. Neck supple. No lymph nodes noted. No crepitus CVS: Normal heart rate and rhythm. Pulses normal. Normal S1 and S2 Respiratory: No respiratory distress. Breath sounds normal. No Wheezing. No rales Abdomen: Soft and nontender. No rigidity. No distention. good BS x4 Skin: Skin warm and dry. Normal skin color. Normal skin turgor. Extremities: No lower extremity edema. Neurovascular intact to all extremities. No Lacerations. No Rash Neuro: Oriented X 3. No motor deficit. No sensory deficit. Moving all extermities. No slurred speech Medical Decision Making Medical Decision Making [facility] Narrative: 89 years old with a history of colon cancer history of small-bowel obstruction presented today with having abdominal pain. Not feeling well. Symptoms similar to previous bouts of small bowel obstruction. Initial lactate was slightly elevated after fluids patient's lactate came down to 2.0. CT scan of the abdomen pelvis was done. It shows signs of small-bowel obstruction. The finding was discussed with General surgery. Will admit for further evaluation. Differential Diagnosis Differential Diagnoses: The differential diagnosis associated with the presentation includes Small-bowel obstruction, diverticulitis, perforation Admission/Observation Consideration of admission/observation: Escalation of care including admission/observation considered Consult Healthcare Provider Management of the patient was discussed with: Beading Sawyer (Surgery) Lab Data [facility] Lab Attestation statement: I reviewed the patient's lab results. 02/18/25 20:02 02/18/25 20:02 Labs: Lab Results 02/18/25 02/18/25 02/18/25 Range/Units 19:54 20:02 20:29 WBC 23.5 H (4.8-10.8) X10*3/uL RBC 5.55 D (4.60-5.80) X10*6/uL Hgb 16.0 D (14.0-18.0) g/dl Hct 46.5 D (42.0-52.0) % MCV 83.8 (80.0-98.0) fL MCH 28.8 (27.0-33.0) pg MCHC 34.4 (31.0-36.0) g/dl RDW 13.9 (11.0-16.0) % Plt Count 314 D (160-400) X10*3/uL MPV 9.7 (9.4-12.4) fL Immature Gran % (Auto) 0.6 H (0.0-0.4) % Neut % (Auto) 82.4 H (45-73) % Lymph % (Auto) 9.9 L (20-40) % Daniels % (Auto) 6.6 (2-11) % Eos % (Auto) 0.2 (0-4) % Baso % (Auto) 0.3 (0-2) % Lymph # (Auto) 2.3 (1.2-4.9) X10*3/uL Daniels # (Auto) 1.6 H (0.1-1.2) X10*3/uL Eos # (Auto) 0.1 (0.0-0.4) X10*3/uL Baso # (Auto) 0.1 (0.0-0.2) X10*3/uL Abs Immat Gran (auto) 0.13 H (0.00-0.03) X10*3/uL Absolute Neuts (auto) 19.4 H (2.0-8.3) x10*3/uL Absolute Nucleated RBC 0.000 (0.0-0.012) X10*3/uL Nucleated RBC % (auto) 0.0 (0.0-0.2) /100WBC Smear Tech's Comments VERIFIED Sodium 138 (135-145) mmol/L Potassium 4.5 (3.3-5.1) mmol/L Chloride 106 (96-108) mmol/L Carbon Dioxide 22 (22-29) mmol/L Anion Gap 15 (12-20) BUN 23 H (9-16) mg/dL Creatinine 0.92 (0.5-1.4) mg/dL Estim Creat Clear Calc 64.5 Estimated GFR > 60 Random Glucose 178 H (60-115) mg/dL Lactic Acid 2.5 H* (0.5-2.0) mmol/L Lactic Acid F/U @ 2Hr (0.5-2.0) mmol/L Calcium 9.3 D (8.4-10.2) mg/dL Total Bilirubin 0.5 (0.0-1.0) mg/dL Direct Bilirubin 0.2 (0.0-0.5) mg/dL AST 20 (5-37) U/L ALT 19 (0-40) U/L Alkaline Phosphatase 88 (39-117) U/L Total Protein 6.3 L (6.5-8.0) g/dL Albumin 3.9 (3.5-5.0) g/dL Lipase 10 (8-78) U/L Urine Color Yellow Urine Appearance Clear Urine pH 6.5 (5.0-9.0) Ur Specific [place] 1.025 (1.005-1.025) Urine Protein Trace (Neg-Trace) mg/dL Urine Glucose (UA) 100 H (Negative) mg/dL Urine Ketones Trace (Negative) mg/dL Urine Blood Negative (Negative) Urine Nitrite Negative (Negative) Ur Leukocyte Esterase Negative (Negative) 02/18/25 Range/Units 22:40 WBC (4.8-10.8) X10*3/uL RBC (4.60-5.80) X10*6/uL Hgb (14.0-18.0) g/dl Hct (42.0-52.0) % MCV (80.0-98.0) fL MCH (27.0-33.0) pg MCHC (31.0-36.0) g/dl RDW (11.0-16.0) % Plt Count (160-400) X10*3/uL MPV (9.4-12.4) fL Immature Gran % (Auto) (0.0-0.4) % Neut % (Auto) (45-73) % Lymph % (Auto) (20-40) % Daniels % (Auto) (2-11) % Eos % (Auto) (0-4) % Baso % (Auto) (0-2) % Lymph # (Auto) (1.2-4.9) X10*3/uL Daniels # (Auto) (0.1-1.2) X10*3/uL Eos # (Auto) (0.0-0.4) X10*3/uL Baso # (Auto) (0.0-0.2) X10*3/uL Abs Immat Gran (auto) (0.00-0.03) X10*3/uL Absolute Neuts (auto) (2.0-8.3) x10*3/uL Absolute Nucleated RBC (0.0-0.012) X10*3/uL Nucleated RBC % (auto) (0.0-0.2) /100WBC Smear Tech's Comments Sodium (135-145) mmol/L Potassium (3.3-5.1) mmol/L Chloride (96-108) mmol/L Carbon Dioxide (22-29) mmol/L Anion Gap (12-20) BUN (9-16) mg/dL Creatinine (0.5-1.4) mg/dL Estim Creat Clear Calc Estimated GFR Random Glucose (60-115) mg/dL Lactic Acid (0.5-2.0) mmol/L Lactic Acid F/U @ 2Hr 2.0 (0.5-2.0) mmol/L Calcium (8.4-10.2) mg/dL Total Bilirubin (0.0-1.0) mg/dL Direct Bilirubin (0.0-0.5) mg/dL AST (5-37) U/L ALT (0-40) U/L Alkaline Phosphatase (39-117) U/L Total Protein (6.5-8.0) g/dL Albumin (3.5-5.0) g/dL Lipase (8-78) U/L Urine Color Urine Appearance Urine pH (5.0-9.0) Ur Specific [place] (1.005-1.025) Urine Protein (Neg-Trace) mg/dL Urine Glucose (UA) (Negative) mg/dL Urine Ketones (Negative) mg/dL Urine Blood (Negative) Urine Nitrite (Negative) Ur Leukocyte Esterase (Negative) Radiology Impression Discussion of test interpretation with radiology: I have reviewed the radiologist's reading. Independent Historian Clinical information obtained from an independent historian. History obtained from or confirmed by: Spouse External Record Review External record reviewed: Inpatient record Chronic Conditions History of colon cancer Social Determinants Patient?s care significantly limited by Social Determinants of Health including: Problems related to primary support group Medications Administered Discontinued Medications Generic Name Dose Route Start Last Admin Trade Name Freq PRN Reason Stop Dose Admin Ceftriaxone Sodium 2 gm 02/18/25 20:58 02/18/25 21:31 Ceftriaxone Sodium 2 Gm Vial IVPUSH 02/18/25 20:59 2 gm ONCE ONE Administration Diatrizoate Meglum/Diatrizoate Sod 30 ml 02/18/25 22:17 02/18/25 22:18 Diatrizoate Meglumine, Sodium 30 Ml Solution PO 02/18/25 22:18 30 ml ONCE ONE Administration Hydromorphone HCl 0.5 mg 02/18/25 20:04 02/18/25 20:14 Hydromorphone Hcl 0.5 Mg/0.5 Ml Syringe IVPUSH 02/18/25 20:05 0.5 mg ONCE ONE Administration Protocol Sodium Chloride 1,000 mls @ 999 mls/hr 02/18/25 20:15 02/18/25 21:59 Ns IV 02/18/25 21:15 Infused .Q1H1M KRISTINE Infusion Sodium Chloride 1,000 mls @ 999 mls/hr 02/18/25 21:00 02/18/25 21:19 Ns IV 02/18/25 22:00 999 mls/hr .Q1H1M KRISTINE Administration Sodium Chloride 1,000 mls @ 999 mls/hr 02/18/25 21:00 02/18/25 21:19 Ns IV 02/18/25 22:00 999 mls/hr .Q1H1M KRISTINE Administration Metronidazole 500 mg in 100 mls @ 100 mls/hr 02/18/25 20:58 02/18/25 21:31 Flagyl IV 02/18/25 21:57 100 mls/hr ONCE ONE Administration Iohexol 85 ml 02/18/25 22:18 02/18/25 22:18 Iohexol 350 Mg/Ml 100 Ml Infus..Btl IV 02/18/25 22:19 85 ml ONCE ONE Administration Ondansetron HCl 4 mg 02/18/25 20:04 02/18/25 20:14 Ondansetron Hcl 4 Mg/2 Ml Vial IVPUSH 02/18/25 20:05 4 mg ONCE ONE Administration Discharge Plan Discharge Clinical Impression: Partial obstruction of small intestine Patient Disposition: Admitted As Inpatient Prescriptions: No Action lactulose 10 gram/15 mL solution 30 ml PO DAILY PRN (Reason: for constipation) Qty: 946 0RF levetiracetam 250 mg tablet 250 mg PO BID 90 Days Qty: 180 0RF rosuvastatin 10 mg tablet 10 mg PO DAILY Qty: 90 3RF (DME) Walker See Rx Instructions .Route .MEDSUPPLY Qty: 1 0RF Rx Instructions: As directed cyanocobalamin (vitamin B-12) 1,000 mcg Tablet 1,000 mcg PO DAILY aspirin 81 mg Tablet,Delayed Release (Dr/Ec) 81 mg PO DAILY docusate sodium 100 mg capsule 100 mg PO DAILY PRN (Reason: Constipation) amlodipine 2.5 mg tablet 5 mg PO BEDTIME (DME) blood pressure monitor Kit See Rx Instructions .Route Qty: 1 0RF Rx Instructions: As directed ICD: I95.9 MEDIUM ADULT SIZE CUFF PATIENT ON MEDICATIONS FOR HTN, CURRENTLY HAS LOW BP READINGS. triamcinolone acetonide 0.5 % cream 1 appl topical BID 14 Days Qty: 30 0RF prednisone 10 mg tablet 40 mg PO DAILY gabapentin 100 mg capsule 200 mg PO TID lorazepam 0.5 mg tablet 0.5 mg PO .COMPLEX PRN (Reason: anxiety) Qty: 2 0RF Rx Instructions: 0.5 mg orally 1-2 tabs before the MRI PRN; Print Language: [place]ib[place]ian
[2025-02-18 20:08] LABS: Basophils Absolute Auto 0.1 X10*3/uL (0.0-0.2); Basophils Percent Auto 0.3 % (0-2); Eosinophils Absolute Auto 0.1 X10*3/uL (0.0-0.4); Eosinophils Percent Auto 0.2 % (0-4); Hematocrit 46.5 % (42.0-52.0); Imm Gran Abs Auto 0.13 X10*3/uL (0.00-0.03); Imm Gran Pct Auto 0.6 % (0.0-0.4); Lymphocytes Absolute Auto 2.3 X10*3/uL (1.2-4.9); Lymphocytes Percent Auto 9.9 % (20-40); MANUAL DIFF FLAG SCAN; Mean Corpuscular HGB Conc 34.4 g/dl (31.0-36.0); Mean Corpuscular Hemoglobin 28.8 pg (27.0-33.0); Mean Corpuscular Volume 83.8 fL (80.0-98.0); Mean Platelet Volume 9.7 fL (9.4-12.4); Monocytes Absolute Auto 1.6 X10*3/uL (0.1-1.2); Monocytes Percent Auto 6.6 % (2-11); Neutrophils Absolute Auto 19.4 x10*3/uL (2.0-8.3); Neutrophils Percent Auto 82.4 % (45-73); Platelet Count 314 X10*3/uL (160-400); Red Blood Count 5.55 X10*6/uL (4.60-5.80); Red Cell Distribution Width 13.9 % (11.0-16.0); SCAN SMEAR FLAG 1; White Blood Count 23.5 X10*3/uL (4.8-10.8)
[2025-02-18] MEDS: 0.9 % Sodium Chloride 1,000 ML 999 ML IV ×3 (20:12→21:19)
[2025-02-18] MEDS: HYDROmorphone HCl 0.5 MG/0.5 ML SYRINGE IVPUSH (20:14)
[2025-02-18] MEDS: ondansetron HCL 4 MG/2 ML VIAL IVPUSH (20:14)
[2025-02-18 20:23] LABS: Anion Gap 15 (12-20); Blood Urea Nitrogen 23 mg/dL (9-16); Calcium 9.3 mg/dL (8.4-10.2); Carbon Dioxide 22 mmol/L (22-29); Chloride 106 mmol/L (96-108); Creatinine Clr Calc Pharmacy 64.5; Estimated Glomerular Filt Rate > 60; Glucose Random 178 mg/dL (60-115); Lipase 10 U/L (8-78); Potassium 4.5 mmol/L (3.3-5.1); Sodium 138 mmol/L (135-145)
[2025-02-18 20:35] LABS: SLIDE REVIEW VERIFIED
[2025-02-18 20:53] LABS: Alanine Aminotransferase 19 U/L (0-40); Albumin Level 3.9 g/dL (3.5-5.0); Alkaline Phosphatase 88 U/L (39-117); Aspartate Amino Transferase 20 U/L (5-37); Bilirubin Direct 0.2 mg/dL (0.0-0.5); Bilirubin Total 0.5 mg/dL (0.0-1.0); Total Protein 6.3 g/dL (6.5-8.0)
[2025-02-18 20:56] LABS: Lactic Acid 2.5 mmol/L (0.5-2.0)
[2025-02-18 21:23] VITALS: BP 144/80; PULSE 71; RESP 20; TEMP 36.4; O2SAT 97
[2025-02-18] MEDS: cefTRIAXone sodium 2 GM VIAL IVPUSH (21:31)
[2025-02-18] MEDS: metroNIDAZOLE/NS 500 MG/100 ML PIGGYBACK 100 MG IV (21:31)
[2025-02-18] MEDS: iohexoL 350 MG/ML 100 ML INFUS..BTL 85 ML IV (22:18)
[2025-02-18] MEDS: Diatrizoate Meglumine, Sodium 30 ML SOLUTION PO (22:18)
[2025-02-18 22:32] LABS: Reflex Lactate? Lactic Acid Added
[2025-02-19] VITALS (8 sets, daily range): BP systolic 109–169; BP diastolic 55–87; PULSE 66–85; RESP 16–18; TEMP 36.1–37.1; O2SAT 94–99; BMI 24.2
[2025-02-19] MEDS: Dextrose 5 % and 0.45 % NaCl 1,000 ML 100 ML IVCONT ×3 (00:18→23:33)
[2025-02-19] MEDS: Enoxaparin Sodium 40 MG/0.4 ML SYRINGE SUBCUT ×2 (00:41→20:50)
[2025-02-19] MEDS: Piperacillin Sodium/Tazobactam 3.375 GM in 0.9 % Sodium Chloride 50 ML IV ×5 (00:41→23:32)
[2025-02-19] MEDS: 0.9 % Sodium Chloride Flush 3 ML SYRINGE IVFLUSH (00:42)
[2025-02-19 03:57] LABS: MANUAL DIFF FLAG NO
[2025-02-19 04:00] LABS: Basophils Percent Auto 0.2 % (0-2); Eosinophils Percent Auto 0.2 % (0-4); Imm Gran Abs Auto 0.08 X10*3/uL (0.00-0.03); Imm Gran Pct Auto 0.6 % (0.0-0.4); Lymphocytes Absolute Auto 1.6 X10*3/uL (1.2-4.9); Lymphocytes Percent Auto 11.7 % (20-40); Mean Corpuscular HGB Conc 34.1 g/dl (31.0-36.0); Mean Corpuscular Hemoglobin 28.5 pg (27.0-33.0); Mean Corpuscular Volume 83.5 fL (80.0-98.0); Mean Platelet Volume 9.8 fL (9.4-12.4); Monocytes Absolute Auto 1.1 X10*3/uL (0.1-1.2); Monocytes Percent Auto 8.5 % (2-11); Neutrophils Absolute Auto 10.5 x10*3/uL (2.0-8.3); Neutrophils Percent Auto 78.8 % (45-73); Platelet Count 254 X10*3/uL (160-400); Red Blood Count 4.91 X10*6/uL (4.60-5.80); White Blood Count 13.3 X10*3/uL (4.8-10.8)
[2025-02-19 04:18] LABS: Alanine Aminotransferase 17 U/L (0-40); Albumin Level 3.4 g/dL (3.5-5.0); Alkaline Phosphatase 76 U/L (39-117); Anion Gap 13 (12-20); Aspartate Amino Transferase 18 U/L (5-37); Bilirubin Total 0.5 mg/dL (0.0-1.0); Blood Urea Nitrogen 21 mg/dL (9-16); Calcium 7.9 mg/dL (8.4-10.2); Carbon Dioxide 20 mmol/L (22-29); Chloride 109 mmol/L (96-108); Creatinine Clr Calc Pharmacy 81.3; Estimated Glomerular Filt Rate > 60; Glucose Random 171 mg/dL (60-115); Potassium 4.7 mmol/L (3.3-5.1); Sodium 137 mmol/L (135-145); Total Protein 5.4 g/dL (6.5-8.0)
[2025-02-19] MEDS: HYDROmorphone HCl 0.5 MG/0.5 ML SYRINGE IVPUSH (05:08)
--- NOTE | 2025-02-19 10:35 | PHA.MEDREC ---
Addendum entered by Latrice Bowman RPh 02/19/25 10:52: Med rec was reviewed by Naya. Original Note: Pharmacy Consult ? Medication Reconciliation Pharmacy has completed the medication reconciliation. Spoke with patient and he confirmed his medications. Patient confirmed he is taking 2 tablets (5mg) of the Amlodipine 2.5mg tabs at bedtime. The patient confirmed he finished the Prednisone 10mg regimen yesterday.
--- NOTE | 2025-02-19 11:19 | PM.HPGS ---
History of Present Illness History of Present Illness Date of Service: 02/19/25 Chief complaint: small bowel obstruction Narrative: Geoffrey Bone is a 89 year old male with multiple medical comorbidities well known to surgical service for prior SBOs who presented to the ED with complaints of lower abd pain that started yesterday morning. The pain progressively worsened and felt similar to his prior bouts of SBOs and he therefore presented for evaluation. Work up in the ED included CBC, BMP, LFTs and was significant for a leukocytosis and lactic acidosis which improved/normalized with IVF. CT scan abd pelvis showed distended stomach, dilated small bowel loops of small intestine with question transition point in the right lower quadrant, no pneumatosis, free intraperitoneal air. Severe stool burden seen with mild wall thickening of the colon. This morning he reports improvement in the pain. He denies nausea, vomiting, abdominal distention, diarrhea, BRBPB, sick contacts. He has begun to pass some flatus. He does not two recent falls after his legs give out for which he was seen at [facility] and then [facility] for with extensive work up. He was diagnosed with spinal stenosis and instructed to f/u outpatient with a neurosurgeon. Home PT was arranged. He reports he has otherwise been doing well. Review of Systems Review of Systems: Yes all other systems are reviewed and are negative PMFSH Past Medical History Medical History Overweight (BMI 25.0-29.9) CAD (coronary artery disease) Afib CVA (cerebral vascular accident) Self-catheterizes urinary bladder History of trigger finger Arthritis Preoperative cardiovascular examination Symptomatic stenosis of left carotid artery Rectal cancer Bladder neck contracture GERD (gastroesophageal reflux disease) Urinary incontinence Obstructive sleep apnea Coronary artery disease Type 2 diabetes mellitus with hyperglycemia Small bowel obstruction Erectile dysfunction Peripheral vascular disease Prostate cancer Hematuria Constipation BPH (benign prostatic hyperplasia) Prostate cancer Colon cancer Dysuria Hyperlipidemia, unspecified Essential hypertension Family History Family History Father Pancreatic cancer Mother No problems noted. Brother Liver cancer Surgical History Surgical History History of left-sided carotid endarterectomy History of coronary artery stent placement History of exploratory laparotomy History of carpal tunnel release History of prostate surgery (~2017) History of bladder surgery (~01/04/18) History of colectomy History of appendectomy Social History Social History Household Members: Family Household Members Other:: Granddaughter Housing: House Are you a primary post acute care nurse to a significant other at home: No Do you presently have visiting nurse or other home services: Yes Unable to assess alcohol history related to: Unable to respond Alcohol intake: never Patient Tobacco Use Status: Former Tobacco user Tobacco use type: Cigarette Smoked in Last 30 Days: No e-Cigarette/Vaping Use: Never Used Second Hand Smoke Exposure: No Use of substances other than those prescribed or required for medical reasons: No Have you been hit, kicked, punched, or otherwise hurt by someone within the past year? If so, by whom?: No Do you feel safe in your current relationship?: Yes Is there a partner from a previous relationship who is making you feel unsafe now?: No Are you made to feel afraid or neglected: No Advance Directives: Yes Advance Directives on File: Yes Advance Directives Date on File: 09/29/20 Do you have a plan to hurt others: No Plan Recently lost weight without trying: No Nutrition Risks: No Nutritional Risk Poor oral hygiene: No service: No Current occupational status: retired Cognitive needs: Yes (cane, walker) Hearing needs: Yes (hearing aide) Vision needs: Yes (glasses) Meds Allergies Allergy/AdvReac Type Severity Reaction Status Date / Time diphenhydramine AdvReac Intermediate Hallucinati Verified 02/18/25 18:26 [From Teerza] ons Active Medications: Current Medications Amlodipine Besylate (Amlodipine Besylate 5 Mg Tablet) 5 mg PO BEDTIME KRISTINE; Protocol Calcium Carbonate (Calcium Carbonate 750 Mg Tab.Chew) 750 mg PO Q4H PRN PRN Reason: Heartburn Enoxaparin Sodium (Enoxaparin Sodium 40 Mg/0.4 Ml Syringe) 40 mg SUBCUT BEDTIME KRISTINE Last Admin: 02/19/25 00:41 Dose: 40 mg Hydromorphone HCl (Hydromorphone Hcl 0.5 Mg/0.5 Ml Syringe) 0.5 mg IVPUSH Q3H PRN; Protocol PRN Reason: Pain, Severe (Pain Scale 7-10) Last Admin: 02/19/25 05:08 Dose: 0.5 mg Dextrose/Sodium Chloride (D51/2ns) 1,000 mls @ 100 mls/hr IVCONT .Q10H [facility] Last Admin: 02/19/25 00:18 Dose: 100 mls/hr Acetaminophen (Ofirmev) 1,000 mg in 100 mls @ 400 mls/hr IV Q6H PRN PRN Reason: Pain, Mild (Pain Scale 1-3) Piperacillin Sod/Tazobactam (Sod 3.375 gm/ Sodium Chloride) 50 mls @ 100 mls/hr IV Q6H [facility] Last Infusion: 02/19/25 06:56 Dose: Infused Levetiracetam (Levetiracetam 250 Mg Tablet) 250 mg PO BID [facility] Magnesium Hydroxide (Milk Of Magnesia 30 Ml Oral.Susp) 30 ml PO DAILY PRN PRN Reason: Constipation Melatonin (Melatonin 3 Mg Tablet) 6 mg PO BEDTIME PRN PRN Reason: Insomnia Non-Formulary Medication (Rosuvastatin) 10 mg PO DAILY [facility] Ondansetron HCl (Ondansetron Hcl 4 Mg/2 Ml Vial) 4 mg IVPUSH QID PRN PRN Reason: Nausea Oxycodone HCl (Oxycodone Hcl Immed Release 5 Mg Tablet) 5 mg PO Q6H PRN PRN Reason: Pain, Moderate(Pain Scale 4-6) Sodium Chloride (0.9 % Sodium Chloride Flush 3 Ml Syringe) 3 ml IVFLUSH QSHIFT [facility] Last Admin: 02/19/25 08:59 Dose: Not Given Home Medications ?Medication ?Instructions ?Recorded ?Confirmed ?Last Taken ?Type aspirin 81 mg tablet,delayed 81 mg PO DAILY 12/01/22 02/19/25 02/18/25 History release cyanocobalamin (vitamin B-12) 1,000 mcg PO DAILY 12/01/22 02/19/25 02/18/25 History 1,000 mcg tablet docusate sodium 100 mg capsule 100 mg PO DAILY PRN Constipation 01/12/24 02/19/25 06/18/24 History amlodipine 2.5 mg tablet 5 mg PO BEDTIME 09/16/24 02/19/25 02/18/25 History lactulose 10 gram/15 mL oral 30 ml PO DAILY PRN Constipation 02/19/25 02/19/25 Unknown History solution Physical Exam Vital Signs: Vital Signs: Last Vital Signs Temp 98 F 02/19/25 08:33 Pulse 76 02/19/25 08:33 Resp 18 02/19/25 08:33 BP 169/85 H 02/19/25 08:33 Pulse Ox 98 02/19/25 08:33 O2 Del Method Room Air 02/19/25 08:33 BMI result Body Mass Index 24.2 Const: General: comfortable, no acute distress and alert Orientation/consciousness: patient oriented x3 Resp: Effort & Inspection: normal respiratory effort, able to speak in complete sentences and not labored GI: Inspection: Yes distended (mild ) Palpation (GI): Soft to palpation, Tenderness to palpation present (GI) (mild lower abd tenderness), no guarding and not rigid Skin: General skin exam: no rashes or lesions noted Neuro: General: patient oriented x3 and moves all extremities Results Results Labs: Short CBC 02/18/25 02/19/25 Range/Units 20:02 03:42 WBC 23.5 H 13.3 H (4.8-10.8) X10*3/uL Hgb 16.0 D 14.0 (14.0-18.0) g/dl Hct 46.5 D 41.0 L (42.0-52.0) % Plt Count 314 D 254 (160-400) X10*3/uL BMP 02/18/25 02/19/25 20:02 03:42 Sodium 138 137 Potassium 4.5 4.7 Chloride 106 109 H Carbon Dioxide 22 20 L BUN 23 H 21 H Creatinine 0.92 0.73 Calcium 9.3 D 7.9 L D Liver Function 02/18/25 02/19/25 Range/Units 20:29 03:42 Total Bilirubin 0.5 0.5 (0.0-1.0) mg/dL Direct Bilirubin 0.2 (0.0-0.5) mg/dL AST 20 18 (5-37) U/L ALT 19 17 (0-40) U/L Alkaline Phosphatase 88 76 (39-117) U/L Albumin 3.9 3.4 L (3.5-5.0) g/dL Urine 02/18/25 Range/Units 19:54 Urine Color Yellow Urine Appearance Clear Urine pH 6.5 (5.0-9.0) Ur Specific [place] 1.025 (1.005-1.025) Urine Protein Trace (Neg-Trace) mg/dL Urine Glucose (UA) 100 H (Negative) mg/dL Abdomen CT scan report/results: report reviewed and image reviewed Assessment and Plan (1) Partial obstruction of small intestine: Status: Acute Plan 89 year old male with multiple medical comorbidities well known to surgical service for prior SBOs who presented with lower abdominal pain with CT scan demonstrating distended stomach, dilated small bowel loops, nonspecific colonic wall thickening. He overall feels improved this morning with less abd pain, leukocytosis has significantly improved and lactic acidosis resolved, likely due to dehydration. He now has evidence of GI function as he has begun to pass some flatus. Will advance to clear liquids. Encouraged OOB/ambulation and increasing activity to promote GI function. PT consult. Further plan dependent on clinical course. Quality Stroke Does the patient have a stroke diagnosis?: No VTE Prior VTE?: No VTE Risk Level:: Surgical - moderate VTE Device Contraindication: N/A - Device Ordered VTE Drug Contraindication: N/A - Med Ordered Procedures Date of Service Date of Service: 02/19/25
--- NOTE | 2025-02-19 12:08 | MHC.CM.PN ---
pt lives with grand daughter had no previous service pt has own ride home dc plan home no services
[2025-02-19] MEDS: levETIRAcetam 250 MG TABLET PO (20:50)
[2025-02-19] MEDS: amLODIPine Besylate 5 MG TABLET PO (20:50)
[2025-02-20] MEDS: 0.9 % Sodium Chloride Flush 3 ML SYRINGE IVFLUSH (00:05)
[2025-02-20 03:05] VITALS: BP 113/55; PULSE 63; RESP 18; TEMP 36.4; O2SAT 99
[2025-02-20] MEDS: Piperacillin Sodium/Tazobactam 3.375 GM in 0.9 % Sodium Chloride 50 ML IV ×2 (05:34→11:56)
[2025-02-20 06:54] VITALS: BP 122/58; PULSE 62; RESP 16; TEMP 36.7; O2SAT 97
--- NOTE | 2025-02-20 07:26 | PM.PNGS ---
Subjective Subjective Date of Service: 02/20/25 Interval history: Feels a little better this morning. Continues to pass flatus and had a small hard BM yesterday. Physical Exam Vital Signs: Vital Signs: Last Vital Signs Temp 98.1 F 02/20/25 06:54 Pulse 62 02/20/25 06:54 Resp 16 02/20/25 06:54 BP 122/58 L 02/20/25 06:54 Pulse Ox 97 02/20/25 06:54 O2 Del Method Room Air 02/20/25 06:54 BMI result Body Mass Index 24.2 Const: General: comfortable, no acute distress and alert Orientation/consciousness: patient oriented x3 Resp: Effort & Inspection: normal respiratory effort GI: Inspection: No distended Palpation (GI): Soft to palpation, Tenderness to palpation present (GI) (very mild lower tenderness) and no guarding Skin: General skin exam: no rashes or lesions noted Neuro: General: patient oriented x3 and moves all extremities Objective Data Active Medications Amlodipine Besylate (Amlodipine Besylate 5 Mg Tablet) 5 mg PO BEDTIME KRISTINE; Protocol Last Admin: 02/19/25 20:50 Dose: 5 mg Documented By: MIGDALIA Atorvastatin Calcium (Atorvastatin Calcium 40 Mg Tablet) 40 mg PO DAILY KRISTINE Calcium Carbonate (Calcium Carbonate 750 Mg Tab.Chew) 750 mg PO Q4H PRN PRN Reason: Heartburn Docusate Sodium (Docusate Sodium 100 Mg Capsule) 100 mg PO BID [facility] Enoxaparin Sodium (Enoxaparin Sodium 40 Mg/0.4 Ml Syringe) 40 mg SUBCUT BEDTIME [facility] Last Admin: 02/19/25 20:50 Dose: 40 mg Documented By: MIGDALIA Hydromorphone HCl (Hydromorphone Hcl 0.5 Mg/0.5 Ml Syringe) 0.5 mg IVPUSH Q3H PRN; Protocol PRN Reason: Pain, Severe (Pain Scale 7-10) Last Admin: 02/19/25 05:08 Dose: 0.5 mg Documented By: SCOTT Acetaminophen (Ofirmev) 1,000 mg in 100 mls @ 400 mls/hr IV Q6H PRN PRN Reason: Pain, Mild (Pain Scale 1-3) Piperacillin Sod/Tazobactam (Sod 3.375 gm/ Sodium Chloride) 50 mls @ 100 mls/hr IV Q6H [facility] Last Infusion: 02/20/25 06:08 Dose: Infused Documented By: MIGDALIA Lactulose (Lactulose 20 Gm/30 Ml Solution) 20 gm PO DAILY [facility] Levetiracetam (Levetiracetam 250 Mg Tablet) 250 mg PO BID [facility] Last Admin: 02/19/25 20:50 Dose: 250 mg Documented By: MIGDALIA Magnesium Hydroxide (Milk Of Magnesia 30 Ml Oral.Susp) 30 ml PO DAILY PRN PRN Reason: Constipation Melatonin (Melatonin 3 Mg Tablet) 6 mg PO BEDTIME PRN PRN Reason: Insomnia Ondansetron HCl (Ondansetron Hcl 4 Mg/2 Ml Vial) 4 mg IVPUSH QID PRN PRN Reason: Nausea Oxycodone HCl (Oxycodone Hcl Immed Release 5 Mg Tablet) 5 mg PO Q6H PRN PRN Reason: Pain, Moderate(Pain Scale 4-6) Sodium Chloride (0.9 % Sodium Chloride Flush 3 Ml Syringe) 3 ml IVFLUSH QSHIFT [facility] Last Admin: 02/20/25 00:05 Dose: 3 ml Documented By: MIGDALIA Labs 02/19/25 03:42 02/19/25 03:42 Microbiology Microbiology Results: Microbiology 02/18/25 21:22 Blood Culture - Preliminary Blood - Venous No growth after 24 hours. 02/18/25 21:20 Blood Culture - Preliminary Blood - Venous No growth after 24 hours. Procedures Date of Service Date of Service: 02/20/25 Progress Note: A&P Assessment and plan (1) Partial obstruction of small intestine: Status: Acute Plan Feels improved this morning, abd remains benign. Advance to solid diet. Dc IVF. Begin bowel regimen as CT shows colon FOS. Encouraged OOB/ambulation. Awaiting AM cbc, cont IV zosyn for now. Patient comfortable with plan. Time Spent With Patient Time: Total time managing care of this patient today ____ minutes. Quality Stroke Does the patient have a stroke diagnosis?: No VTE Prior VTE?: No VTE Risk Level:: Surgical - moderate VTE Device Contraindication: N/A - Device Ordered VTE Drug Contraindication: N/A - Med Ordered
[2025-02-20 09:14] LABS: MANUAL DIFF FLAG NO
[2025-02-20] MEDS: levETIRAcetam 250 MG TABLET PO (09:19)
[2025-02-20] MEDS: Lactulose 20 GM/30 ML SOLUTION PO (09:19)
[2025-02-20] MEDS: Docusate Sodium 100 MG CAPSULE PO (09:19)
[2025-02-20] MEDS: Atorvastatin Calcium 40 MG TABLET PO (09:20)
[2025-02-20 09:23] LABS: Basophils Percent Auto 0.4 % (0-2); Eosinophils Absolute Auto 0.4 X10*3/uL (0.0-0.4); Eosinophils Percent Auto 4.8 % (0-4); Hematocrit 38.5 % (42.0-52.0); Hemoglobin 12.9 g/dl (14.0-18.0); Imm Gran Abs Auto 0.03 X10*3/uL (0.00-0.03); Imm Gran Pct Auto 0.4 % (0.0-0.4); Lymphocytes Absolute Auto 2.3 X10*3/uL (1.2-4.9); Lymphocytes Percent Auto 29.4 % (20-40); Mean Corpuscular HGB Conc 33.5 g/dl (31.0-36.0); Mean Corpuscular Hemoglobin 28.7 pg (27.0-33.0); Mean Corpuscular Volume 85.7 fL (80.0-98.0); Mean Platelet Volume 10.3 fL (9.4-12.4); Monocytes Absolute Auto 0.7 X10*3/uL (0.1-1.2); Monocytes Percent Auto 8.8 % (2-11); Neutrophils Absolute Auto 4.4 x10*3/uL (2.0-8.3); Neutrophils Percent Auto 56.2 % (45-73); Platelet Count 223 X10*3/uL (160-400); Red Blood Count 4.49 X10*6/uL (4.60-5.80); White Blood Count 7.9 X10*3/uL (4.8-10.8)
--- NOTE | 2025-02-20 11:55 | MHC.CM.PN ---
No plan for Dc today. Diet advanced. IV Zosyn. Case management following for any DC needs.
--- NOTE | 2025-02-20 16:23 | MHC.CM.PN ---
PATIENT IS RETURNING HOME WITH RESUMPTION OF HIS [facility].
--- NOTE | 2025-02-20 17:29 | PM.DS ---
DS: Providers Provider Date of Service: 02/20/25 Date of admission: 02/18/25 23:22 Date of discharge: 02/20/25 Primary care physician: Pro Nunn MD Attending physician on admission: Simon Randle Attending physician on discharge: Simon Randle DS: Diagnosis Discharge Diagnosis (1) Partial obstruction of small intestine: Status: Acute DS: Summary Hospital Course Hospital Course: HPI AT ADMISSION: Geoffrey Bone is a 89 year old male with multiple medical comorbidities well known to surgical service for prior SBOs who presented to the ED with complaints of lower abd pain that started yesterday morning. The pain progressively worsened and felt similar to his prior bouts of SBOs and he therefore presented for evaluation. Work up in the ED included CBC, BMP, LFTs and was significant for a leukocytosis and lactic acidosis which improved/normalized with IVF. CT scan abd pelvis showed distended stomach, dilated small bowel loops of small intestine with question transition point in the right lower quadrant, no pneumatosis, free intraperitoneal air. Severe stool burden seen with mild wall thickening of the colon. This morning he reports improvement in the pain. He denies nausea, vomiting, abdominal distention, diarrhea, BRBPB, sick contacts. He has begun to pass some flatus. He does not two recent falls after his legs give out for which he was seen at [facility] and then [facility] with extensive work up. He was diagnosed with spinal stenosis and instructed to f/u outpatient with a neurosurgeon. Home PT was arranged. He reports he has otherwise been doing well. HOSPITAL COURSE: He was admitted to the surgical service for further treatment of the PSBO. He was started empirically on zosyn due to his significantly leukocytosis which improved and normalized. His abdominal symptoms improved and he began to have evidence of GI function as he has begun to pass some flatus. His diet was slowly advanced to clear liquids and then solids as tolerated. He was started on a bowel regimen as his colon was FOS on imaging. PT was consulted given his fall history. On the day of discharge, he was tolerating a solid diet without nausea or vomiting, had good GI function and was moving his bowels. His abd was benign and soft, nontender. He felt ready for discharge. He was discharged to home on 02/20/25 in stable condition. He is to resume his home VNA services. He is to follow up with his PCP. Recommended to continue bowel regimen upon discharge. Status at Discharge Functional status at discharge: independent ambulation Time Attestation Discharge Coordination Time (in mins): 25 Quality: Safe Use of Opioids Does Pt have an Active Cancer Diagnosis on the Problem List?: No Quality: Stroke Does the patient have a stroke diagnosis?: No Physical Exam Vital Signs: Vital Signs: Last Vital Signs Temp 98.1 F 02/20/25 06:54 Pulse 62 02/20/25 06:54 Resp 16 02/20/25 06:54 BP 122/58 L 02/20/25 06:54 Pulse Ox 97 02/20/25 06:54 O2 Del Method Room Air 02/20/25 06:54 BMI result Body Mass Index 24.2 Const: General: comfortable, no acute distress and alert GI: Inspection: No distended Palpation (GI): Soft to palpation and nontender Skin: General skin exam: no rashes or lesions noted DS: Data Data Completed and Pending Completed studies during hospitalization [Text1]: Procedures Dilation of Bladder Neck, Via Natural or Artificial Opening Endoscopic (04/01/24) Drainage of Bladder with Drainage Device, Via Natural or Artificial Opening Endoscopic (04/01/24) Extirpation of Matter from Left External Carotid Artery, Open Approach (12/02/23) Extirpation of Matter from Right Internal Carotid Artery, Open Approach (04/01/24) Extirpation of Matter from Right Neck Subcutaneous Tissue and Fascia, Open Approach (04/01/24) Insertion of Infusion Device into Superior Vena Cava, Percutaneous Approach (08/27/20) Supplement Left Internal Carotid Artery with Synthetic Substitute, Open Approach (12/02/23) Supplement Right Common Carotid Artery with Synthetic Substitute, Open Approach (04/01/24) Ultrasonography of Superior Vena Cava, Guidance (08/27/20) Labs on day of discharge: Laboratory Results - last 24 hr 02/20/25 08:17 WBC 7.9 RBC 4.49 L Hgb 12.9 L Hct 38.5 L MCV 85.7 MCH 28.7 MCHC 33.5 RDW 14.0 Plt Count 223 MPV 10.3 Immature Gran % (Auto) 0.4 Neut % (Auto) 56.2 Lymph % (Auto) 29.4 Rains % (Auto) 8.8 Eos % (Auto) 4.8 H Baso % (Auto) 0.4 Lymph # (Auto) 2.3 Rains # (Auto) 0.7 Eos # (Auto) 0.4 Baso # (Auto) 0.0 Abs Immat Gran (auto) 0.03 Absolute Neuts (auto) 4.4 Absolute Nucleated RBC 0.000 Nucleated RBC % (auto) 0.0 Preliminary micro results at discharge 02/18/25 21:22 Blood Culture - Preliminary Blood - Venous No growth after 48 hours. 02/18/25 21:20 Blood Culture - Preliminary Blood - Venous No growth after 48 hours. Discharge Plan Discharge Anticipated Discharge Date/Time: 02/20/25 14:21 Patient Disposition: Home Health Service Discharge Diagnosis: PSBO Referrals: Shaun Dunn [] - 1 Week Po,Pro Adame MD [Primary Care Provider] - 1 Week Discharge Medications: Continued levetiracetam 250 mg tablet 250 mg PO BID 90 Days Qty: 180 0RF rosuvastatin 10 mg tablet 10 mg PO DAILY Qty: 90 3RF (DME) Walker See Rx Instructions .Route .MEDSUPPLY Qty: 1 0RF Rx Instructions: As directed cyanocobalamin (vitamin B-12) 1,000 mcg Tablet 1,000 mcg PO DAILY aspirin 81 mg Tablet,Delayed Release (Dr/Ec) 81 mg PO DAILY docusate sodium 100 mg capsule 100 mg PO DAILY PRN (Reason: Constipation) lactulose 10 gram/15 mL Solution 30 ml PO DAILY PRN (Reason: Constipation) amlodipine 2.5 mg tablet 5 mg PO BEDTIME (DME) blood pressure monitor Kit See Rx Instructions .Route Qty: 1 0RF Rx Instructions: As directed ICD: I95.9 MEDIUM ADULT SIZE CUFF PATIENT ON MEDICATIONS FOR HTN, CURRENTLY HAS LOW BP READINGS. Discharge Orders: Discharge Order (Routine); Ordered 02/20/25 Ordered By: Simon Randle Diet: Advance to usual diet Activity on Discharge: As tolerated Stand Alone Forms: Patient Portal Discharge page Print Language: Spanish Activity Restrictions/Additional Instructions: Follow up in with your PCP. Call Your Doctor If: ? ? -Your temperature exceeds 101? F? ? ? -You experience excessive pain or swelling ? ? -You have an unexpected reaction to medication ? ? -You experience continued vomiting/nausea Care Plan Goals: Return to baseline health and resume normal activities. Health Concerns: PSBO Plan of Treatment: f/u with PCP Resume home PT Assessment: Improved Discharge Date/Time: 02/20/25 17:00
== END 2025-02-20 17:00 | disposition home health service (06) | DRG 390 ==
LOC: HO.ED 23:23 → HO.EDOVER 23:32 → HO.S3 02-19 06:34
PROVIDERS: Physician Assistant Surgical; Admitting Provider Surgery; Emergency Provider Emergency Medicine Emergency Medical Services; PCP Internal Medicine; Visit Provider Surgery
DX: K56.600 Partial intestinal obstruction, unspecified as to cause (principal); I25.10 Atherosclerotic heart disease of native coronary artery without angina pectoris; E86.0 Dehydration; Z87.891 Personal history of nicotine dependence; Z85.038 Personal history of other malignant neoplasm of large intestine; Z79.82 Long term (current) use of aspirin; Z79.899 Other long term (current) drug therapy
CPT/HCPCS: 36415; 74177; 80048; 80053; 80076; 81003; 83605; 83690; 85025; 87040; 97161; 99285; J0696; J1171; J1650; J1836; J2405; J2543; Q9967

== ENCOUNTER → 2025-02-18 20:02 | Outpatient (BNV) | payer MEDICARE, OTHER, SELFPAY | PROVIDERS: Admitting Provider Surgery; Emergency Provider Emergency Medicine Emergency Medical Services; PCP Internal Medicine; Visit Provider Radiology Neuroradiology | DX: K56.609 Unspecified intestinal obstruction, unspecified as to partial versus complete obstruction (principal) | CPT/HCPCS: 74177 ==

== ENCOUNTER → 2025-02-18 23:22 | Outpatient (BNV) | payer MEDICARE, OTHER, SELFPAY | PROVIDERS: Admitting Provider Surgery; Emergency Provider Emergency Medicine Emergency Medical Services; PCP Internal Medicine; Visit Provider Physician Assistant Surgical | DX: K56.600 Partial intestinal obstruction, unspecified as to cause (principal) | CPT/HCPCS: 99222 ==

== ENCOUNTER 2025-02-26 11:48 | Outpatient (REF) | payer MEDICARE, OTHER, SELFPAY ==
--- NOTE | ~2025-02-26 | MR_ITS ---
EXAMINATION: MR LUMBAR SPINE WITHOUT CONTRAST CLINICAL INFORMATION: Spinal stenosis, lumbar region. COMPARISON: None available. TECHNIQUE: MRI of the lumbar spine was obtained using routine sequences without contrast. FINDINGS: Last rib-bearing vertebra labeled T12. Bone marrow STIR signal abnormality involving mostly the endplates and vertebral bodies of T12-L1 and to a lesser extent the posterior elements. Bone marrow STIR signal in the inferior endplate of L5 and S1 sacrum. Multilevel marginal osteophyte formation and disc desiccation and decreased intervertebral disc height from T11-12 to L3-4. Disc desiccation, severe T12-L1 and L3-4 levels. There is a levoconvex rotoscoliosis apex at L3 and dextroconvex curvature. There is a grade 1 anterolisthesis L4-5 on a degenerative basis. There is a grade 1 retrolisthesis T12-L1 on a degenerative basis. The conus medullaris ends at inferior endplate of T12 with normal signal. T11-12: No disc herniation. Left facet joint hypertrophy. No central spinal canal or neuroforamina stenosis. T12-L1: Broad-based disc bulging. Facet joint hypertrophy. Hypertrophy of the left ligamentum flavum. No central spinal canal stenosis. Left neuroforamina narrowing without compressing the exiting nerve root. L1-2: Broad-based disc bulging. Facet joint and ligamentum flavum hypertrophy. Reduced AP diameter of the thecal sac. Bilateral neuroforamina narrowing. No compression upon neural elements. L2-3: Broad-based disc bulging. Facet joint and ligamentum flavum hypertrophy. Central spinal canal stenosis encroaching the neural elements of the thecal sac. Bilateral neuroforamina narrowing without compressing the exiting nerve roots. L3-4: Broad-based disc bulging. Facet joint and ligamentum flavum hypertrophy. CSF effacement of the thecal sac and central spinal canal stenosis likely compressing the neural elements. Bilateral neuroforamina narrowing encroaching the L3 exiting nerve roots. L4-5: Right-sided disc bulging. Facet joint and ligamentum flavum hypertrophy. Central spinal canal and bilateral neuroforamina narrowing right greater than left likely encroaching the neural elements. L5-S1: Broad-based disc bulging. Facet joint hypertrophy. No central spinal canal stenosis. Bilateral neuroforamina narrowing without compressing the exiting nerve roots. Fatty atrophy of the lower lumbar muscles from L4 to sacrum. Asymmetric volume loss right psoas muscle. No prevertebral compartment hematoma, mass or fluid collection. MR/MR lumbar spine wo con IMPRESSION: Multilevel thoracolumbar spondylosis resulting in central spinal canal and bilateral neuroforamina stenosis at L3-4 compressing the neural elements of the thecal sac and to a lesser extent the exiting nerve root. Similar findings to a lesser extent at L4-5 and L2-3 levels. Acute to subacute inflammatory degenerative changes at T12-L1. Scoliosis. Electronically signed by: Corona Miranda MD 02/27/2025 01:25 PM EDT
--- OUTSIDE RECORDS SUMMARY | 2025-02-26 13:25 | XMS_ITS | Data Portability ---
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 Patient [...] a4ajBk vP9nXo QUaueC m3YtLR FvZlgJ JJ8mAn HZtai3 2g4960 AC0Kqa XqMWaG nKiQtr MwF INTERFACE [facility] [address], [place], [address], 10/03/2024 10:15:22 10/03/20 24 10/03/2024 XR, knee, 4 or more view http:/ [email or web address] ?Encry pted=s hAaTro YD8dLq bEUv6g %2BXZw aYqtaq 0bqfl% 2Fg9IQ a4ajBk vP9nXo QUaueC m3YtLR FvZlgJ JJ8mAn HZtai3 9i7886 AC0Kqa XqMWaG nKiQtr MwF INTERFACE [facility] [address], [place], [address], 10/03/2024 10:15:24 Result Notes None recorded. Problems Name Problem SNOMED Code Status Onset Date Resolution Date Notes Provider Name and Address Organization Details Recorded Time No complaint s 052657233 Active Status: 'I'; Not Available [facility] 4 09:11:46 Pain of right wrist 474725654753 100 Active 2023 Benny Rodriguez PA-C [address], [facility] [place], [address] , [facility] 4 10:27:11 Pain of knee region 0289592437 Active 2023 emily martinez [place] - [facility] 4 10:04:03 Pain of left hand 675148829304 103 Active 2016 Problem Code: M79.642; Problem Code Type: ICD-10; Status: 'A'; Not Available [facility] 4 10:56:11 Pain in right hand 974201940495 109 Active 2016 Problem Code: M79.641; Problem Code Type: ICD-10; Status: 'A'; Not Available [facility] 4 10:56:11 Idiopathi c osteoarth ritis 745302870 Active 2014 Problem Code: M17.11; Problem Code Type: ICD-10; Status: 'A'; Not Available [facility] 4 10:56:12 Carpal tunnel syndrome of left wrist 316859867552 102 Active 2017 Problem Code: G56.02; Problem Code Type: ICD-10; Status: 'A'; Not Available [facility] 4 10:56:12 Trigger finger of left hand 558620575047 26431 Active 2023 Jad Dorman PA-C [address], [place], [address] , [facility] 4 09:05:29 Carpal tunnel syndrome of right wrist 452519749560 108 Active 2023 Jad Dorman PA-C [address], [place], [address] , [facility] 4 09:05:29 Problem Notes None recorded. Procedures Surgical History Date Name Laterality Status Provider Name and Address Organization Details Recorded Time 5 Knee Kenalog 40 1cc Injection, Bilateral completed Ketty Ramirez PA-C [address], [place], [address], [facility] 01/01/2025 11:10:02 5 Gel-One Knee Injection completed Ketty Ramirez PA-C [address], [place], [address], [facility] 11/21/2024 12:35:48 4 Knee Kenalog 40 1cc Injection, Bilateral completed Ketty Ramirez PA-C [address], [place], [address], [facility] 10/07/2024 21:58:12 Imaging Results Imaging Date Name Status LastModified by Organiz ation Details LastModified Time 10/03/2024 XR, knee, 4 or more view completed INTERFACE [facility] [address], [place], [address], 10/03/2024 10:15:22 10/03/2024 XR, knee, 4 or more view completed INTERFACE [facility] [address], [place], [address], 10/03/2024 10:15:24 Procedure Notes None recorded. Medical Equipment None Reported. Allergies Allergen ID Allergen Name Allergen Category Reaction Reaction Severity Criticality Documentation Date Start Date Code Code System Note Provider Name and Address Organization Details Recorded Time 887603 Benadryl medicatio n Not available Not available Not available 01/10/202454522 7 RxNorm SHREYAS martinez [facility] 08:40:25 Medications Name Sig Start [...] Updated DateTime 06/17/2024 187.96 cm 23.8 kg/m2 91871.59 g KELIN JOHNSON [facility] 06/17/2024 15:57:49 Date Recorded Body height Body mass index (BMI) Body weight Provider Name and Address Organization Details Last Updated DateTime 07/05/2024 187.96 cm 23.8 kg/m2 23608.59 g KELIN JOHNSON [facility] 07/05/2024 11:08:18 Date Recorded Body height Body mass index (BMI) Body weight Provider Name and Address Organization Details Last Updated DateTime 10/03/2024 187.96 cm 23.8 kg/m2 80043.59 g emily izaguirre [facility] 10/03/2024 10:02:39 Date Recorded Body height Provider Name an d Address Organization Details Last Updated DateTime 11/21/2024 187.96 cm Lina Diaz [facility] 11/21/2024 11:39:41 Date Recorded Body height Body mass index (BMI) Body weight Provider Name and Address Organization Details Last Updated DateTime 01/01/2025 187.96 cm 23.8 kg/m2 26297.59 g KAYLIA L'HEUREUX [facility] 01/01/2025 10:41:11 Social History None recorded. Functional Status None recorded. Mental Status None recorded. Family History Nothing Reported. Medical History No medical history recorded. Past Encounters Encounter ID Performer Location Encounter Start Date Encounter Closed Date Diagnosis/Indication Diagnosis SNOMED-CT Code Diagnosis ICD10 Code Diagnosis Note [id number] [facility] [address] [facility] [place] [address] 01/10/2024 08:28:52 01/15/2024 16:32:10 Trigger finger of left hand 8974456472 5192163 M65.30 Patient reports that his pain seemed [...] our office immediatel y. Numbness of hand 9107906 04 R20.0 Carpal riley dipak syndrome of right wrist 4106885267 82574 G56.01 I recommende d continued nighttime wrist splinting, as well as EMG to evaluate for compressio n neuropathy . He will follow-up after the EMG for discussion of results and treatment [id number] MD Louisa Thomas 1st [facility] [address] [place] [address] 04/29/2024 10:41:37 05/16/2024 15:18:47 Bilateral carpal tunnel syndrome 9966908794 1300094 G56.03 [id number] MARTHA Mann 1st [facility] [address] [place], [place] [address] 06/07/2024 08:22:27 06/07/2024 08:51:25 Carpal tunnel syndrome of right wrist 4590150504 68875 G56.01 [id number] MD Louisa Thomas [address] [place] [address] [place] [address] 06/10/2024 13:26:31 07/05/2024 12:52:42 Carpal tunnel syndrome of right wrist 3997807867 75023 G56.01 [id number] MD Louisa Thomas [address] [place] [address] [address] 06/17/2024 15:42:06 07/10/2024 07:17:44 Carpal tunnel syndrome of right wrist 7255848413 11525 G56.01 [id number] MD Louisa Thomas [address] [place] [address] [address] 07/05/2024 10:57:15 07/29/2024 19:06:48 Postoperative care 254341027 Z48.89 Postoperat tayla wound infection 74168577 T81.40XA [id number] MARTHA Yun [address] [place] [address] 10/03/2024 09:28:21 10/31/2024 13:21:17 Pain of knee region 6269681664 M25.561 M25.562 Primary go narthrosis, bilateral 024553869 M17.0 [id number] MARTHA Yun - [facility] 3[address] floor [address] [place] [address] 11/21/2024 11:28:56 12/03/2024 12:05:29 Osteoarthritis of right knee joint 4125601939 52715 M17.11 [id number] MARTHA Yun [address] [place] [address] 01/01/2025 10:37:09 01/14/2025 14:08:02 Primary gonarthrosis, bilateral 376532246 M17.0 Health Concerns Section Related Observation LastModified by Organization Detai ls LastModified Time None Recorded Concern Status LastModified by Organization Details LastModified Time None Recorded Advance Directives Directive None Recorded Payers Encounter Date Sequence Insurance Name Policy Number Policy Jacques Covered Member ID Jacques Member ID Guarantor Name 06/17/2024 2 [facility] IN[facility] - UNICARE [id number] Geoffrey Waldron Lizandro [id number] Geoffrey Waldron Lizandro 06/17/2024 1 [place]: [employer] Geoffrey Waldron Lizandro [id number] Geoffrey S Lizandro 07/05/2024 2 [employer] IN[employer]ITY [employer] - [employer] [id number] Geoffrey Waldron Lizandro [id number] Geoffrey Waldron Lizandro 07/05/2024 1 [place] [employer] Geoffrey Waldron Lizandro [id number] Geoffrey S Lizandro 10/03/2024 2 [employer] IN[employer]ITY PLAN - [employer] [id number] Geoffrey S Lizandro [id number] Geoffrey Vanita Lizandro 10/03/2024 1 [place] [employer] Geoffrey S Lizandro [id number] Geoffrey S Lizandro 11/21/2024 2 [facility] UNICARE [id number] Geoffrey Waldron Lizandro [id number] Geoffrey Vanita Lizandro 11/21/2024 1 [place] [employer] Geoffrey Bone [id number] Geoffrey S Lizandro 01/01/2025 2 [facility] [id number] Geoffrey Bone [id number] Geoffrey Bone 01/01/2025 1 [place] [facility] Geoffrey Bone [id number] Geoffrey Bone Notes Date Note Type [...] comfortable with that plan. Donald Vitale MD [address] [place] [address] [address], [place], [address], [facility] 06/21/2024 08:50:14 4 text/html Diagnosis: [...] contact our office immediately Donald Vitale MD [address] [place] [address] [address], [place], [address], [facility] 07/05/2024 11:24:48 4 text/html [...] and lucid. Normal insight, affect and grooming. 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 No spasticity [...] strength. X-rays ordered, obtained and reviewed at [facility] today include {{4 views of bilateral knees.*}} Images reveal severe end-stage osteoarthritis of the left medial compartment and right lateral compartment with dmra-il-frqw articulation, subchondral sclerosis, and osteophyte formation. Degenerative [...] relief. All questions answered. Ketty Ramirez PA-C [address] [place] [address] [address], [place], [address], [facility] 10/07/2024 21:59:22 5 text/html I [...] next 24-48 hours. Follow-up as symptoms dictate. [facility] speech recognition assistant professor in family studies software was used to create portions of this document. An attempt at proofreading has been made to minimize errors. Please call for corrections. Ketty Ramirez PA-C [address] [place] [address] [address] [facility], [place], [address], [facility] 11/21/2024 12:36:07 5 text/html I [...] eligible in April. He continues to take dmrg-sdg-sjgzolz medication intermittently for his pain. He uses [...] every 3 months. Ketty Ramirez PA-C [address], [place], [address], [facility] 01/01/2025 11:10:23
--- OUTSIDE RECORDS SUMMARY | 2025-02-26 13:25 | XMS_ITS | Clinical Summary ---
Author Organization [facility] Address [address] [place] [address] Phone Care Team Providers Care Casino Investigator Name Role Phone Pro Nunn MD Primary Care Provider Allergies Active Allergy Reactions Criticality Noted Date [...] Hypertension Hyperlipidemia TIA (transient ischemic attack) Cancer ([facility] V24, [facility] V28) Social History Tobacco Use [...] LAB CHEMISTRY METHOD 10/28/2023 8:29 AM EST [facility] Comment: Cholesterol Risk Factors (NCEP 2004 ATP III update) Desirable: ?<200 mg/dL Borderline Risk: ? 200-239 mg/dL High Risk: ?>239 mg/dL Triglycerides 103 0 - 150 mg/dL LAB CHEMISTRY METHOD 10/28/2023 8:29 AM EST [facility] HDL 34 23 - 92 mg/dL LAB CHEMISTRY METHOD 10/28/2023 8:29 AM [facility] LDL Calculated 25 <100 mg/dL LAB CHEMISTRY METHOD 10/28/2023 8:29 AM [facility] Comment: LDL Cholesterol Risk Factors (NCEP 2004 ATP III update) Desirable for high risk CHD: ??< 100 ??mg/dL Desirable for moderate risk CHD (2 or more risk factors): < 130 ??mg/dL Desirable for low risk CHD (0-1 risk factors): ??< 160 ??mg/dL VLDL Cholesterol David 20.6 mg/dL LAB CHEMISTRY METHOD 10/28/2023 8:29 AM [facility] Blood Venous blood specimen / Unknown Venipuncture / Unknown 10/28/2023 6:39 AM EST 10/28/2023 8:01 AM EST us Roman Wu MD LAB BLOOD ORDERABLES Fi nal Result [facility] ([facility]) HOSPITAL LAB [address] [place] [address], [place] [phone] from Last 3 Months or Most Recently Relevant to Health Maintenance Insurance MEDICARE [facility] Advance Directives * Full Code - [...] currently active code status orders. Care Teams Casino Investigator Relationship Specialty Start Date End Date Pro Nunn MD [address] [place] [address] Dr [facility] [place] [address] PCP - General Internal Medicine 10/26/23
== END 2025-02-26 11:49 | disposition home or self-care (01) ==
LOC: HO.MRI 11:48
PROVIDERS: PCP Internal Medicine; Visit Provider Internal Medicine
DX: M48.061 Spinal stenosis, lumbar region without neurogenic claudication (principal)
CPT/HCPCS: 72148

== ENCOUNTER → 2025-02-26 11:58 | Outpatient (BNV) | payer MEDICARE, OTHER, SELFPAY | PROVIDERS: PCP Internal Medicine; Visit Provider Radiology Diagnostic Radiology | DX: M47.817 Spondylosis without myelopathy or radiculopathy, lumbosacral region (principal); M99.63 Osseous and subluxation stenosis of intervertebral foramina of lumbar region; M51.369 Other intervertebral disc degeneration, lumbar region without mention of lumbar back pain or lower extremity pain; M41.86 Other forms of scoliosis, lumbar region | CPT/HCPCS: 72148 ==

== ENCOUNTER → 2025-02-27 23:59 | Outpatient (BNV) | payer MEDICARE, OTHER, SELFPAY | PROVIDERS: PCP Internal Medicine; Referring Provider Internal Medicine; Visit Provider Internal Medicine | DX: M54.31 Sciatica, right side (principal); M54.15 Radiculopathy, thoracolumbar region; I73.9 Peripheral vascular disease, unspecified | CPT/HCPCS: G0180 ==

== ENCOUNTER 2025-02-28 15:52 | Outpatient (AMB) | payer MEDICARE, OTHER, SELFPAY ==
--- OUTSIDE RECORDS SUMMARY | 2025-02-28 15:56 | XMS_ITS | Clinical Summary ---
Author Organization [facility] Address [address] [place] [address] Phone Care Team Providers Care Surface Hydrologist Name Role Phone Pro Nunn MD Primary [...] Hypertension Hyperlipidemia TIA (transient ischemic attack) Cancer ([facility] V24, [facility] V28) Social History Tobacco Use [...] LAB CHEMISTRY METHOD 10/28/2023 8:29 AM EST [facility] Comment: Cholesterol Risk Factors (NCEP 2004 ATP III update) Desirable: ?<200 mg/dL Borderline Risk: ? 200-239 mg/dL High Risk: ?>239 mg/dL Triglycerides 103 0 - 150 mg/dL LAB CHEMISTRY METHOD 10/28/2023 8:29 AM EST [facility] HDL 34 23 - 92 mg/dL LAB CHEMISTRY METHOD 10/28/2023 8:29 AM [facility] LDL Calculated 25 <100 mg/dL LAB CHEMISTRY METHOD 10/28/2023 8:29 AM [facility] Comment: LDL Cholesterol Risk Factors (NCEP 2004 ATP III update) Desirable for high risk CHD: ??< 100 ??mg/dL Desirable for moderate risk CHD (2 or more risk factors): < 130 ??mg/dL Desirable for low risk CHD (0-1 risk factors): ??< 160 ??mg/dL VLDL Cholesterol David 20.6 mg/dL LAB CHEMISTRY METHOD 10/28/2023 8:29 AM [facility] Blood Venous blood specimen / Unknown Venipuncture / Unknown 10/28/2023 6:39 AM EST 10/28/2023 8:01 AM EST us Roman Wu MD LAB BLOOD ORDERABLES Fi nal Result [facility] ([facility]) HOSPITAL LAB [address] [place] [address], [place] [phone] from Last 3 Months or Most Recently Relevant to Health Maintenance Insurance MEDICARE [facility] Advance Directives * Full Code - Default [...] currently active code status orders. Care Teams Surface Hydrologist Relationship Specialty Start Date End Date Pro Nunn MD [address] [place] [address] Dr [facility] [place] [address] PCP - General Internal Medicine 10/26/23
--- OUTSIDE RECORDS SUMMARY | 2025-02-28 15:56 | XMS_ITS | Clinical Summary ---
Author Organization Unknown Care Team Providers Care Match Up Person Name Role Phone PO INTERSTATE, LORENVER Unavailable Unavaila pablo VALADEZ PT, JU Unavailable Unavailable EDSON MANAGER MATH, CHI Unavailable Unavailable Payers Payer Name Policy Type Policy Number Effective Date Expira tion Date MEDICARE.NGS.PDGM [id number] Problems Condition Name Condition Details Condition Category Status Onset Date Resolution Date Last Treatment Date Treating Clinician Comments SCIATICA, RIGHT SIDE Active 15 00:00: 00 INTVRT DISC DISORDERS W RADICULOPATH Y, THORACOLUMBA [...] HYPERLIPIDEM IA, UNSPECIFIED Active 10-30 00:00: 00 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 Ordering Clinician Indication Dosage Frequency Signature (SIG) Comments Components isosorbide mononitrate ER 30 mg tablet,exte nded release 24 hr 06-13 00:00: 00 02-11 00:00 :00 No [id number] Per instruc tions ONCE DAILY Per instructio ns ONCE DAILY (route: oral) Med Classific ation: Cardiovas cular Therapy Agents tamsulosin 0.4 mg capsule 2019-10 0 00:00: 00 02-11 00:00 :00 No [id number] Per instruc tions ONCE DAILY Per instructio ns ONCE DAILY (route: oral) Med Classific ation: Genitouri nary Therapy rosuvastati n 10 mg tablet 2019-10 00:00: 00 Yes [id number] CHOLESTEROL 1 tablet DAILY 1 tablet DAILY (route: oral) Med Classific ation: Cardiovas cular Therapy Agents lisinopril 5 mg tablet 06-06 00:00: 00 02-11 00:00 :00 No [id number] Per instruc tions ONCE DAILY Per instructio ns ONCE DAILY (route: oral) Med Classific ation: Cardiovas cular Therapy Agents metoprolol tartrate 25 mg tablet 06-06 00:00: 00 02-11 00:00 :00 No [id number] Per instruc tions TWICE DAILY Per instructio ns TWICE DAILY (route: oral) Med Classific ation: Cardiovas cular Therapy Agents sulfamethox azole 800 mg-trimetho prim 160 mg tablet 2019-10 00:00: 00 02-11 00:00 :00 No [id number] Per instruc tions TWICE DAILY FOR 7 DAYS Per instructio ns TWICE DAILY FOR 7 DAYS (route: oral) Med Classific ation: Anti-Infe ctive Agents amlodipine 2.5 mg tablet 01-28 00:00: 00 Yes [id number] HTN 3 tablet BEDTIME 3 tablet BEDTIME (route: oral) Med Classific ation: Cardiovas cular Therapy Agents aspirin 81 mg tablet,zafar pateld release 01-28 00:00: 00 Yes [id number] HEART HEALTH 1 tablet DAILY 1 tablet DAILY (route: oral) Med Classific ation: Hematolog ical Agents docusate sodium 100 mg capsule 01-28 00:00: 00 Yes [id number] CONSTIPATIO N 1 capsule DAILY 1 capsule DAILY (route: oral) Med Classific ation: Gastroint estinal Therapy Agents Keppra 250 mg tablet 01-28 00:00: 00 Yes [id number] SEIZURES 1 tablet 2 TIMES DAILY 1 tablet 2 TIMES DAILY (route: oral) Med Classific ation: Central Nervous System Agents Vital Signs Vital Name Observation Time Observation Value Commen ts Temperature 2025-02-24 12:25:00.000 97.4 [degF] Temperature 2025-02-18 13:58:00.000 96.9 [degF] Temperature 2025-02-17 15:29:00.000 97 [degF] Temperature 2025-02-11 12:10:00.000 97.5 [degF] BMI (%) 2025-02-24 12:25:00.000 23 kg/m2 BMI (%) 2025-02-11 12:10:00.000 23 kg/m2 Height 2025-02-24 12:25:00.000 74 [in_us] Height 2025-02-11 12:10:00.000 74 [in_us] Pulse 2025-02-24 12:25:00.000 76 /min Pulse 2025-02-18 13:58:00.000 72 /min Pulse 2025-02-17 15:29:00.000 60 /min Pulse 2025-02-11 12:10:00.000 66 /min O2 Saturation (%) 2025-02-24 12:25:00.000 97 % O2 Saturation (%) 2025-02-18 13:58:00.000 97 % O2 Saturation (%) 2025-02-17 15:29:00.000 96 % O2 Saturation (%) 2025-02-11 12:10:00.000 100 % Respirations 2025-02-24 12:25:00.000 16 /min Respirations 2025-02-18 13:58:00.000 16 /min Respirations 2025-02-17 15:29:00.000 16 /min Respirations 2025-02-11 12:10:00.000 16 /min Weight (lbs) 2025-02-24 12:25:00.000 180 [lb_av] Weight (lbs) 2025-02-11 12:10:00.000 180 [lb_av] Systolic Blood Pressure 2025-02-24 12:25:00.000 140 mm [Hg] Systolic Blood Pressure 2025-02-18 13:58:00.000 140 mm [Hg] Systolic Blood Pressure 2025-02-17 15:31:00.000 138 mm [Hg] Systolic Blood Pressure 2025-02-11 12:10:00.000 120 mm [Hg] Diastolic Blood Pressure 2025-02-24 12:25:00.000 72 mm [Hg] Diastolic Blood Pressure 2025-02-18 13:58:00.000 85 mm [Hg] Diastolic Blood Pressure 2025-02-17 15:31:00.000 80 mm [Hg] Diastolic Blood Pressure 2025-02-11 12:10:00.000 68 mm [Hg] Plan of Treatment Planned Activity Planned Date Details Comments Future Scheduled Test AGENCY MAY PERFORM A RESUMPTION OF CARE VISIT FOLLOWING ANY HOSPITAL ADMISSION. PT TO EVALUATE, OBSERVE / ASSESS, AND MONITOR, MANAGER MATH TO OBSERVE AND MONITOR, PROVIDE SKILLED THERAPEUTIC INTERVENTION, ACTIVITY, EDUCATION, AND TRAINING TO ADDRESS; [code = AGENCY MAY PERFORM A RESUMPTION OF CARE VISIT FOLLOWING ANY HOSPITAL ADMISSION. PT TO EVALUATE, OBSERVE / ASSESS, AND MONITOR, MANAGER MATH TO OBSERVE AND MONITOR, PROVIDE SKILLED THERAPEUTIC INTERVENTION, ACTIVITY, EDUCATION, AND TRAINING TO ADDRESS;] Future Scheduled Test CHAIR REINA SFERS (PT/MANAGER MATH) [code = CHAIR TRANSFERS (PT/MANAGER MATH)] Future Scheduled Test PT/MANAGER MATH TO PROVIDE GAIT TRAINING FOR IMPROVED MOBILITY AND /OR TO NORMALIZE GAIT PATTERN [code = PT/MANAGER MATH TO PROVIDE GAIT TRAINING FOR IMPROVED MOBILITY AND /OR TO NORMALIZE GAIT PATTERN] Future Scheduled Test PT/MANAGER MATH TO PROVIDE STAIR TRAINING [code = PT/MANAGER MATH TO PROVIDE STAIR TRAINING] Future Scheduled Test NEUROMUSCU LAR RE-EDUCATION / BALANCE / POSTURAL CONTROL (PT) [code = NEUROMUSCULAR RE-EDUCATION / BALANCE / POSTURAL CONTROL (PT)] Future Scheduled Test THERAPEUTI C EXERCISES AND ESTABLISHING A HOME EXERCISE PROGRAM (PT/MANAGER MATH) [code = THERAPEUTIC EXERCISES AND ESTABLISHING A HOME EXERCISE PROGRAM (PT/MANAGER MATH)] Future Scheduled Test PT/MANAGER MATH TO IDENTIFY FALL RISK FACTORS; EDUCATE THE PATIENT/CAREGIVER ON WAYS TO REDUCE FALL RISK FACTORS AND ESTABLISH HOME EXERCISE PROGRAM TO MINIMIZE FALL RISK. MAY TEACH THE PATIENT FLOOR RECOVERY WHEN CLINICALLY APPROPRIATE [code = PT/MANAGER MATH TO IDENTIFY FALL RISK FACTORS; EDUCATE THE PATIENT/CAREGIVER ON WAYS TO REDUCE FALL RISK FACTORS AND ESTABLISH HOME EXERCISE PROGRAM TO MINIMIZE FALL RISK. MAY TEACH THE PATIENT FLOOR RECOVERY WHEN CLINICALLY APPROPRIATE] Future Scheduled Test PT / MANAGER MATH M AY EDUCATE ON PAIN MANAGEMENT CLINICALLY INDICATED, INCLUDING NON-PHARMACOLOGICAL PAIN REDUCTION TECHNIQUES AND USE OF CRYOTHERAPY OR HEAT UP TO 20 MIN AT A TIME FOR PAIN MANAGEMENT 4 TIMES PER DAY TO LUMBAR REGION. [code = PT / MANAGER MATH MAY EDUCATE ON PAIN MANAGEMENT CLINICALLY INDICATED, INCLUDING NON-PHARMACOLOGICAL PAIN REDUCTION TECHNIQUES AND USE OF CRYOTHERAPY OR HEAT UP TO 20 MIN AT A TIME FOR PAIN MANAGEMENT 4 TIMES PER DAY TO LUMBAR REGION.] Future Scheduled Test OCCUPATION AL THERAPY EVALUATION PERFORMED. NO ADDITIONAL VISITS REQUIRED. PROVIDED SKILLED INTERVENTION INCLUDING ENERGY CONSERVATION AND WORK SIMPLIFICATION TASKS WITH ADLS FOR PAIN MANAGEMENT. [code = OCCUPATIONAL THERAPY EVALUATION PERFORMED. NO ADDITIONAL VISITS REQUIRED. PROVIDED SKILLED INTERVENTION INCLUDING ENERGY CONSERVATION AND WORK SIMPLIFICATION TASKS WITH ADLS FOR PAIN MANAGEMENT.] Goal 2025-02-24 Patient Goal - WALK BETTER Goal Patient Goal - WALK BETTER Goal [...] Provider Goal - Goal Provider Goal - PATIENT / CAREGIVER WITHIN 1 VISIT WILL BE ABLE TO VERBALIZE / DEMONSTRATE UNDERSTANDING WORK SIMPLIFICATION TASKS AND ENERGY CONSERVATION WITH ADL SKILLS SHOWERING, DRESSING DUE TO SCIATIC PAIN. Encounters Start Date/Time End Date/Time Encounter Type Admission Type Attending [facility] Care Department Encounter ID Discharge Date Discharge Status Discharge Condition Discharge Reason Percent Goals Met 2025-02-11 00:00:00 2025-04-11 00:00:00 Outpatient JU EM [facility] [id number] .00
--- OUTSIDE RECORDS SUMMARY | 2025-02-28 15:56 | XMS_ITS | Clinical Summary ---
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) USE OF ANTITHROMBOT ICS/ANTIPLAT ELETS Active [...] 06-13 00:00: 00 02-11 00:00 :00 No [id number] Per instruc tions ONCE DAILY Per instructio ns ONCE DAILY (route: oral) Med Classific ation: Cardiovas cular Therapy Agents tamsulosin 0.4 mg capsule 2019-10 0 00:00: 00 02-11 00:00 :00 No [id number] Per instruc tions ONCE DAILY Per instructio ns ONCE DAILY (route: oral) Med Classific ation: Genitouri nary Therapy rosuvastati n 10 mg tablet 2019-10 00:00: 00 Yes [id number] CHOLESTEROL 1 tablet DAILY 1 tablet DAILY (route: oral) Med Classific ation: Cardiovas cular Therapy Agents lisinopril 5 mg tablet 06-06 00:00: 00 02-11 00:00 :00 No [id number] Per instruc tions ONCE DAILY Per instructio ns ONCE DAILY (route: oral) Med Classific ation: Cardiovas cular Therapy Agents metoprolol tartrate 25 mg tablet 06-06 00:00: 00 02-11 00:00 :00 No [id number] Per instruc tions TWICE DAILY Per instructio ns TWICE DAILY (route: oral) Med Classific ation: Cardiovas cular Therapy Agents sulfamethox azole 800 mg-trimetho prim 160 mg tablet 2019-10 00:00: 00 02-11 00:00 :00 No [id number] Per instruc tions TWICE DAILY FOR 7 DAYS Per instructio ns TWICE DAILY FOR 7 DAYS (route: oral) Med Classific ation: Anti-Infe ctive Agents amlodipine 2.5 mg tablet 01-28 00:00: 00 Yes [id number] HTN 3 tablet BEDTIME 3 tablet BEDTIME (route: oral) Med Classific ation: Cardiovas cular Therapy Agents aspirin 81 mg tablet,zafar pateld release 01-28 00:00: 00 Yes [id number] HEART HEALTH 1 tablet DAILY 1 tablet DAILY (route: oral) Med Classific ation: Hematolog ical Agents docusate sodium 100 mg capsule 01-28 00:00: 00 Yes [id number] CONSTIPATIO N 1 capsule DAILY 1 capsule DAILY (route: oral) Med Classific ation: Gastroint estinal Therapy Agents Keppra 250 mg tablet 01-28 00:00: 00 Yes [id number] SEIZURES 1 tablet 2 TIMES DAILY 1 [...] TO EVALUATE, OBSERVE / ASSESS, AND MONITOR, PRIVATE BRANCH EXCHANGE SERVICE ADVISOR TO OBSERVE AND MONITOR, PROVIDE SKILLED THERAPEUTIC INTERVENTION, ACTIVITY, EDUCATION, AND TRAINING TO ADDRESS; [code = AGENCY MAY PERFORM A RESUMPTION OF CARE VISIT FOLLOWING ANY HOSPITAL ADMISSION. PT TO EVALUATE, OBSERVE / ASSESS, AND MONITOR, PRIVATE BRANCH EXCHANGE SERVICE ADVISOR TO OBSERVE AND MONITOR, PROVIDE SKILLED THERAPEUTIC INTERVENTION, ACTIVITY, EDUCATION, AND TRAINING TO ADDRESS;] Future Scheduled Test CHAIR REINA SFERS (PT/PRIVATE BRANCH EXCHANGE SERVICE ADVISOR) [code = CHAIR TRANSFERS (PT/PRIVATE BRANCH EXCHANGE SERVICE ADVISOR)] Future Scheduled Test PT/PRIVATE BRANCH EXCHANGE SERVICE ADVISOR TO PROVIDE GAIT TRAINING FOR IMPROVED MOBILITY AND /OR TO NORMALIZE GAIT PATTERN [code = PT/PRIVATE BRANCH EXCHANGE SERVICE ADVISOR TO PROVIDE GAIT TRAINING FOR IMPROVED MOBILITY AND /OR TO NORMALIZE GAIT PATTERN] Future Scheduled Test PT/PRIVATE BRANCH EXCHANGE SERVICE ADVISOR TO PROVIDE STAIR TRAINING [code = PT/PRIVATE BRANCH EXCHANGE SERVICE ADVISOR TO PROVIDE STAIR TRAINING] Future Scheduled Test NEUROMUSCU LAR RE-EDUCATION / BALANCE / POSTURAL CONTROL (PT) [code = NEUROMUSCULAR RE-EDUCATION / BALANCE / POSTURAL CONTROL (PT)] Future Scheduled Test THERAPEUTI C EXERCISES AND ESTABLISHING A HOME EXERCISE PROGRAM (PT/PRIVATE BRANCH EXCHANGE SERVICE ADVISOR) [code = THERAPEUTIC EXERCISES AND ESTABLISHING A HOME EXERCISE PROGRAM (PT/PRIVATE BRANCH EXCHANGE SERVICE ADVISOR)] Future Scheduled Test PT/PRIVATE BRANCH EXCHANGE SERVICE ADVISOR TO IDENTIFY FALL RISK FACTORS; EDUCATE THE PATIENT/CAREGIVER ON WAYS TO REDUCE FALL RISK FACTORS AND ESTABLISH HOME EXERCISE PROGRAM TO MINIMIZE FALL RISK. MAY TEACH THE PATIENT FLOOR RECOVERY WHEN CLINICALLY APPROPRIATE [code = PT/PRIVATE BRANCH EXCHANGE SERVICE ADVISOR TO IDENTIFY FALL RISK FACTORS; EDUCATE THE PATIENT/CAREGIVER ON WAYS TO REDUCE FALL RISK FACTORS AND ESTABLISH HOME EXERCISE PROGRAM TO MINIMIZE FALL RISK. MAY TEACH THE PATIENT FLOOR RECOVERY WHEN CLINICALLY APPROPRIATE] Future Scheduled Test PT / PRIVATE BRANCH EXCHANGE SERVICE ADVISOR M AY EDUCATE ON PAIN MANAGEMENT CLINICALLY INDICATED, INCLUDING NON-PHARMACOLOGICAL PAIN REDUCTION TECHNIQUES AND USE OF CRYOTHERAPY OR HEAT UP TO 20 MIN AT A TIME FOR PAIN MANAGEMENT 4 TIMES PER DAY TO LUMBAR REGION. [code = PT / PRIVATE BRANCH EXCHANGE SERVICE ADVISOR MAY EDUCATE ON PAIN MANAGEMENT CLINICALLY INDICATED, [...] End Date/Time Encounter Type Admission Type Attending [facility] Care Department Encounter ID Discharge Date Discharge Status Discharge Condition Discharge Reason Percent Goals Met 2025-02-11 00:00:00 2025-04-11 00:00:00 Outpatient JU [facility] [id number]
--- OUTSIDE RECORDS SUMMARY | 2025-02-28 15:57 | XMS_ITS | Data Portability ---
Author Organization [place] - [facility], [facility] Address [address] [place] [address] Care Team Providers Care Development Consultant Name Role Phone SUNG KARIMI Primary Care Provider [phone] Assessment No assessment recorded. Plan of Treatment Reminders Order Date Submit Date Provider Last Modified By Organization Details Last Modified Time Details Appointments RECHECK 15 2024 10:45A M Ketty Ramierz PA-C Not available Not available Not available INJECTION ONLY 15 2024 11:30A M Ketty Ramirez PA-C Not available Not available Not available Lab None recorded. Referral None recorded. Procedures None recorded. Surgeries None recorded. Imaging XR, knee, 4 or more view - room 113 bilateral knee 4v cw 2023 024 [facility] Office, [address] [facility] [address], [place], [address], 10/31/2024 13:21:17 Medication Orders None recorded. Patient [...] a4ajBk vP9nXo QUaueC m3YtLR FvZlgJ JJ8mAn HZtai3 2r9627 AC0Kqa XqMWaG nKiQtr MwF INTERFACE [facility] [address], [place], [address], 10/03/2024 10:15:22 10/03/20 24 10/03/2024 XR, knee, 4 or more view http:/ [email or web address]:[email or web address] ?Encry pted=s hAaTro YD8dLq bEUv6g %2BXZw aYqtaq 0bqfl% 2Fg9IQ a4ajBk vP9nXo QUaueC m3YtLR FvZlgJ JJ8mAn HZtai3 5p9875 AC0Kqa XqMWaG nKiQtr MwF INTERFACE [facility] [address], [place], [address], 10/03/2024 10:15:24 Result Notes None recorded. Problems Name Problem SNOMED Code Status Onset Date Resolution Date Notes Provider Name and Address Organization Details Recorded Time No complaint s [id number] Active Status: 'I'; Not Available [facility] 4 09:11:46 Pain of right wrist 077827996901 100 Active 2023 Benny Rodriguez PA-C [address], [place], [address] , [facility] 4 10:27:11 Pain of knee region 5753992737 Active 2023 emily martinez [place] - [facility] 4 10:04:03 Pain of left hand 812197283234 103 Active 2016 Problem Code: M79.642; Problem Code Type: ICD-10; Status: 'A'; Not Available [facility] 4 10:56:11 Pain in right hand 236891775410 109 Active 2016 Problem Code: M79.641; Problem Code Type: ICD-10; Status: 'A'; Not Available [facility] 4 10:56:11 Idiopathi c osteoarth ritis 742368125 Active 2014 Problem Code: M17.11; Problem Code Type: ICD-10; Status: 'A'; Not Available [facility] 4 10:56:12 Carpal tunnel syndrome of left wrist 586777182090 102 Active 2017 Problem Code: G56.02; Problem Code Type: ICD-10; Status: 'A'; Not Available [facility] 4 10:56:12 Trigger finger of left hand 910080634381 73836 Active 2023 Jad Dorman PA-C [address], [place], [address] , [facility] 4 09:05:29 Carpal tunnel syndrome of right wrist 483371141901 108 Active 2023 Jad Dorman PA-C [address], [place], [address] , [facility] 4 09:05:29 Problem Notes None recorded. Procedures Surgical History Date Name Laterality Status Provider Name and Address Organization Details Recorded Time 5 Knee Kenalog 40 1cc Injection, Bilateral completed Ketty Ramirez PA-C [address], [place], [address], [facility] 01/01/2025 11:10:02 5 Gel-One Knee Injection completed Ketty Ramirez PA-C [address], [place], [address], [facility] 11/21/2024 12:35:48 4 Knee Kenalog 40 1cc Injection, Bilateral completed Ketty Ramirez PA-C [address], [place], [address], [facility] 10/07/2024 21:58:12 Imaging Results Imaging Date Name Status LastModified by Organiz ation Details LastModified Time 10/03/2024 XR, knee, 4 or more view completed INTERFACE [facility] [address], [place], [address], 10/03/2024 10:15:22 10/03/2024 XR, knee, 4 or more view completed INTERFACE [facility] [address], [place], [address], 10/03/2024 10:15:24 Procedure Notes None recorded. Medical Equipment None Reported. Allergies Allergen ID Allergen Name Allergen Category Reaction Reaction Severity Criticality Documentation Date Start Date Code Code System Note Provider Name and Address Organization Details Recorded Time 371957 Benadryl medicatio n Not available Not available Not available 01/10/202416951 7 RxNorm SHREYAS martinez [facility] 08:40:25 Medications Name Sig Start Date [...] Updated DateTime 06/17/2024 187.96 cm 23.8 kg/m2 02082.59 g KELIN JOHNSON [facility] 06/17/2024 15:57:49 Date Recorded Body height Body mass index (BMI) Body weight Provider Name and Address Organization Details Last Updated DateTime 07/05/2024 187.96 cm 23.8 kg/m2 50049.59 g KELIN JOHNSON [facility] 07/05/2024 11:08:18 Date Recorded Body height Body mass index (BMI) Body weight Provider Name and Address Organization Details Last Updated DateTime 10/03/2024 187.96 cm 23.8 kg/m2 67980.59 g emily izaguirre [facility] 10/03/2024 10:02:39 Date Recorded Body height Provider Name an d Address Organization Details Last Updated DateTime 11/21/2024 187.96 cm Lina Diaz [facility] 11/21/2024 11:39:41 Date Recorded Body height Body mass index (BMI) Body weight Provider Name and Address Organization Details Last Updated DateTime 01/01/2025 187.96 cm 23.8 kg/m2 28089.59 g KAYLIA L'HEUREUX [facility] 01/01/2025 10:41:11 Social History None recorded. Functional Status None recorded. Mental Status None recorded. Family History Nothing Reported. Medical History No medical history recorded. Past Encounters Encounter ID Performer Location Encounter Start Date Encounter Closed Date Diagnosis/Indication Diagnosis SNOMED-CT Code Diagnosis ICD10 Code Diagnosis Note [id number] [facility] [address] [facility] [address] 01/10/2024 08:28:52 01/15/2024 16:32:10 Trigger finger of left hand 1876999548 7349915 M65.30 Patient reports that his pain seemed [...] our office immediatel y. Numbness of hand 0761694 04 R20.0 Carpal riley dipak syndrome of right wrist 3135653507 02431 G56.01 I recommende d continued nighttime wrist splinting, as well as EMG to evaluate for compressio n neuropathy . He will follow-up after the EMG for discussion of results and treatment [id number] MD Louisa Thomas [address] [facility] [address] [place] [address] 04/29/2024 10:41:37 05/16/2024 15:18:47 Bilateral carpal tunnel syndrome 9001068664 3671702 G56.03 [id number] MARTHA Mann [address] [facility] [address] [place], [place] [address] 06/07/2024 08:22:27 06/07/2024 08:51:25 Carpal tunnel syndrome of right wrist 6394573848 77297 G56.01 [id number] MD Louisa Thomas [address] [place] [address] [place] [address] 06/10/2024 13:26:31 07/05/2024 12:52:42 Carpal tunnel syndrome of right wrist 6584646487 46043 G56.01 [id number] MD Louisa Thomas [address] [place] [address] [place] [address] 06/17/2024 15:42:06 07/10/2024 07:17:44 Carpal tunnel syndrome of right wrist 1727158113 43369 G56.01 [id number] MD Louisa Thomas [address] [place] [address] [place] [address] 07/05/2024 10:57:15 07/29/2024 19:06:48 Postoperative care 746425223 Z48.89 Postoperat tayla wound infection 21121531 T81.40XA [id number] MARTHA Yun [address] [place] [address] 10/03/2024 09:28:21 10/31/2024 13:21:17 Pain of knee region 7486940607 M25.561 M25.562 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 narthrosis, bilateral 736726539 M17.0 [id number] MARTHA Yun - [facility] [address] [place] [address] 11/21/2024 11:28:56 12/03/2024 12:05:29 Osteoarthritis of right knee joint 4379225629 20515 M17.11 [id number] MARTHA Yun [address] [place] [address] 01/01/2025 10:37:09 01/14/2025 14:08:02 Primary gonarthrosis, bilateral 586411718 M17.0 Health Concerns Section Related Observation LastModified by Organization Detai ls LastModified Time None Recorded Concern Status LastModified by Organization Details LastModified Time None Recorded Advance Directives Directive None Recorded Payers Encounter Date Sequence Insurance Name Policy Number Policy Jacques Covered Member ID Jacques Member ID Guarantor Name 06/17/2024 2 [facility] INDEMNITY PLAN - UNICARE [id number] Geoffrey Waldron Lizandro [id number] Geoffrey Waldron Lizandro 06/17/2024 1 [place] [employer] Geoffrey Waldron Lizandro [id number] Geoffrey S Lizandro 07/05/2024 2 [employer] INDEMNITY PLAN - UNIC[employer] [id number] Geoffrey Waldron Lizandro [id number] Geoffrey Waldron Lizandro 07/05/2024 1 [place] [employer] Geoffrey Waldron Lizandro [id number] Geoffrey S Lizandro 10/03/2024 2 [employer] INDEMNITY PLAN - [employer] [id number] Geoffrey S Lizandro [id number] Geoffrey Vanita Lizandro 10/03/2024 1 [place] [place] Geoffrey S Lizandro [id number] Geoffrey S Lizandro 11/21/2024 2 [facility] UNICARE [id number] Geoffrey Waldron Lizandro [id number] Geoffrey Vanita Lizandro 11/21/2024 1 [place] [place] Geoffrey Bone [id number] Geoffrey S Lizandro 01/01/2025 2 [facility] [id number] Geoffrey Bone [id number] Geoffrey Bone 01/01/2025 1 [place] [facility] Geoffrey Bone [id number] Geoffrey Bone Notes Date Note Type [...] comfortable with that plan. Donald Vitale MD [address] [place] [address] [address], [place], [address], [facility] 06/21/2024 08:50:14 4 text/html Diagnosis: Status [...] contact our office immediately Donald Vitale MD [address] [place] [address] [address], [place], [address], [facility] 07/05/2024 11:24:48 4 text/html [...] and lucid. Normal insight, affect and grooming. BLIND HANGER: Gross motor coordination is intact. No spasticity [...] strength. X-rays ordered, obtained and reviewed at [facility] today include {{4 views of bilateral knees.*}} Images reveal severe end-stage osteoarthritis of the left medial compartment and right lateral compartment with fewl-og-qjcl articulation, subchondral sclerosis, and osteophyte formation. Degenerative [...] relief. All questions answered. Ketty Ramirez PA-C [address] [place] [address] [address], [place], [address], [facility] 10/07/2024 21:59:22 5 text/html I am [...] next 24-48 hours. Follow-up as symptoms dictate. [facility] speech recognition cadd manager software was used to create portions of this document. An attempt at proofreading has been made to minimize errors. Please call for corrections. Ketty Ramirez PA-C [address] [place] [address] [address] [facility], [place], [address], [facility] 11/21/2024 12:36:07 5 text/html I am [...] eligible in April. He continues to take myiy-mng-lgcszeo medication intermittently for his pain. He uses [...] every 3 months. Ketty Ramirez PA-C [address] [facility] [address], [place], [address], [facility] 01/01/2025 11:10:23
--- NOTE | 2025-02-28 16:10 | MHC.PC.OV ---
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 Pmhx includes multiple medical comorbidities well known to surgical service for prior SBOs, was admitted to [facility] on 02/18 - 02/20 for further treatment of the PSBO. He was started empirically on zosyn due to his significantly leukocytosis. Today reports that abdominal has resolved and continues to monitor symptoms at home. Reports that his Bowels have not returned to 100% and continues to use lactulose and advancing his diet slowly. Pt had MRI done 3 days ago, and now wondering what the results and next plan in place by PCP. I was able to review the MRI results with Patient and advised to discuss next treatment plan with PCP at the next scheduled appointment. [facility] Medical History (Updated 02/28/25 @ 16:48 by Christine Hensley NP) Partial obstruction of small intestine Overweight (BMI 25.0-29.9) CAD (coronary artery disease) Afib CVA (cerebral vascular accident) Self-catheterizes urinary bladder History of trigger finger Arthritis Preoperative cardiovascular examination Symptomatic stenosis of left carotid artery Rectal cancer Bladder neck contracture GERD (gastroesophageal reflux disease) Urinary incontinence Obstructive sleep apnea Coronary artery disease Type 2 diabetes mellitus with hyperglycemia Small bowel obstruction Erectile dysfunction Peripheral vascular disease Prostate cancer Hematuria Constipation BPH (benign prostatic hyperplasia) Prostate cancer Colon cancer Dysuria Hyperlipidemia, unspecified Essential hypertension Surgical History History of left-sided carotid endarterectomy History of coronary artery stent placement History of exploratory laparotomy History of carpal tunnel release History of prostate surgery (~2017) History of bladder surgery (~01/04/18) History of colectomy History of appendectomy Family History Father Pancreatic cancer Mother No problems noted. Brother Liver cancer Social History Household Members: Family Household Members Other:: Granddaughter Housing: House Are you a primary animal caretaker supervisor to a significant other at home: No Do you presently have visiting nurse or other home services: Yes Unable to assess alcohol history related to: Unable to respond Alcohol intake: never Patient Tobacco Use Status: Former Tobacco user Tobacco use type: Cigarette e-Cigarette/Vaping Use: Never Used Second Hand Smoke Exposure: No Advance Directives Date on File: 09/29/20 service: No Current occupational status: retired Cognitive needs: Yes (cane, walker) Hearing needs: Yes (hearing aide) Vision needs: Yes (glasses) Questionnaire Thrive Questionnaire Date Thrive assessed: 02/19/25 NALINI-7 AMB Questionnaire NALINI-7 Date NALINI - 7 assessed: 01/13/25 Source: Developed by Drs. Chaim Escalera, Angy Pereira, Heriberto Wick and colleagues, with an educational marycarmen from [employer]. Review of Systems Const All systems reviewed & are unremarkable except as noted in HPI and below Physical exam (Primary Care) Vital Signs: Last Vital Signs Temp 97.5 F 02/28/25 16:11 Pulse 64 02/28/25 16:11 BP 110/60 02/28/25 16:11 Pulse Ox 97 02/28/25 16:11 Oxygen Delivery Method Room Air 02/28/25 16:11 BMI result Body Mass Index 23.7 Tobacco/Smoking Status: Tobacco use Status Tobacco use date assessed 01/13/25 02/28/25 16:15 Patient Tobacco Use Status Former Tobacco user 02/28/25 16:15 Tobacco use type Cigarette 02/28/25 16:15 e-Cigarette/Vaping Use Never Used 02/28/25 16:15 Thrive Assessment: Date of Thrive Assessment Date Thrive assessed 02/19/25 02/28/25 16:15 Const General: no acute distress Nutritional Appearance: overweight Orientation/consciousness: patient oriented x3 Resp Effort & Inspection: normal respiratory effort Auscultation: clear to auscultation bilaterally Cardio Heart sounds: S1 normal heart sound present and S2 normal heart sound present GI Inspection: Yes Abdominal panniculus present and Yes obesity Palpation (GI): Soft to palpation Auscultation: normal bowel sounds Neuro General: patient oriented x3, gait normal and moves all extremities Motor exam (neuro): 5/5 motor strength present throughout Psych Speech and movement: Normal speech and movement present Coding Level of Care Code TCM Mod MDM <= 14 Days Diagnoses Partial obstruction of small intestine K56.600 Spinal stenosis of lumbar region, unspecified whether neurogenic claudication present M48.061 Neurogenic claudication status: unspecified Time Spent (min) 20 Assessment & Plan Assessment & Plan (1) Partial obstruction of small intestine: Code(s): K56.600 - Partial intestinal obstruction, unspecified as to cause Category: Medical Plan: Stable, will continue to monitor Continue on lactulose as ordered. (2) Spinal stenosis, lumbar: Code(s): M48.061 - Spinal stenosis, lumbar region without neurogenic claudication Category: Medical Qualifiers: Neurogenic claudication status: unspecified Qualified Code(s): M48.061 - Spinal stenosis, lumbar region without neurogenic claudication Plan: Patient to follow up with PCP
[2025-02-28 16:11] VITALS: BP 110/60; PULSE 64; TEMP 36.4; O2SAT 97; BMI 23.7
== END 2025-02-28 16:38 | disposition home or self-care (01) ==
LOC: HO.HMCH 15:52
PROVIDERS: PCP Internal Medicine; Visit Provider Nurse Practitioner Family
DX: K56.600 Partial intestinal obstruction, unspecified as to cause (principal); M48.061 Spinal stenosis, lumbar region without neurogenic claudication

== ENCOUNTER → 2025-02-28 15:52 | Outpatient (BNVA) | payer MEDICARE, OTHER, SELFPAY | PROVIDERS: PCP Internal Medicine; Visit Provider Nurse Practitioner Family | DX: K56.600 Partial intestinal obstruction, unspecified as to cause (principal); M48.061 Spinal stenosis, lumbar region without neurogenic claudication | CPT/HCPCS: 99212 ==

== ENCOUNTER 2025-03-10 10:52 | Outpatient (AMB) | payer MEDICARE, OTHER, SELFPAY ==
[2025-03-10 11:13] VITALS: BMI 23.1
--- NOTE | 2025-03-10 11:13 | A.SPINEOV_ITS ---
Vital Signs 03/10/25 11:13 Height 6 ft 2 in Weight 180 lb BMI 23.1 Intake Visit Reasons: LBP Intake Note: Mr. Bone is here today c/o leg weakness and numbness of the right lower leg and foot. Morgue Librarian Required: No Allergies diphenhydramine [From Benadryl] Adverse Reaction (Intermediate, Verified 03/10/25 11:14) Hallucinations Physical Exam Vital Signs: BMI result Body Mass Index 23.1 Assessment & Plan Assessment & Plan (1) Spinal stenosis, lumbar: Code(s): M48.061 - Spinal stenosis, lumbar region without neurogenic claudication Category: Medical Qualifiers: Neurogenic claudication status: unspecified Qualified Code(s): M48.061 - Spinal stenosis, lumbar region without neurogenic claudication Plan Dear Dr. Nunn, Thank you for referring Geoffrey to our office today. He is a pleasant 89-year-old male who comes in today with a chief complaint of intermittent right-sided leg numbness, weakness, and pain. When asked which is the worst of his symptoms he states the numbness is by far the worst / happens most frequently. He is accompanied by his daughter to this visit who helps provide some of his history. When describing the numbness, weakness, and pain he states that it is fairly well localized to the front of his right leg mpgyl-tno-argy. He reports that the numbness and pain we will occasionally travel down into his right foot as well. In addition to this he has also been experiencing some weakness, which is intermittent and will occur when weight-bearing. He has had a couple of instances where he has fallen due to his right leg giving out. He reports that these symptoms began many years ago, but worsened about a year so ago. He denies any known inciting incident associated with his symptoms. He does not report any worsening of his numbness/pain with ambulation or standing. He reports that he has attempted to utilize Tylenol to help control his pain in the past, but does not like taking medication. He is currently engaging in physical therapy exercises at home with at home PT. He has not as of yet attempted cortisone injections, but does state that he recently completed a 5 day course of prednisone which he reports did help with his pain. PMH: hypertension, Hyperlipidemia, sleep apnea, type 2 diabetes (unknown last A1C), osteoarthritis right knee, incontinence with self catheterization, vitamin b12 deficiency, BPH, Hx of prostate and colon cancer, bilateral carotid endarterectomies, colon resection 2005, coronary artery stent placement, suspected TIA in 2022, right-sided carpal tunnel release 2023. Social hx: the patient does not smoke, reports no substance use. Medications: see Lemon list. Allergies: Benadryl Physical exam: The patient has 4/5 strength with right-sided knee extension, dorsiflexion and plantar flexion. He is able to engage full strength in the rest of his bilateral lower extremities, but does elicit pain to full strength testing in the bilateral iliopsoas. He ambulates slowly with the assistance of a cane, but is able to get up out of a chair and onto the examination table without assistance. He reports hypoesthesia to light touch over the anterior tibialis in the right. The rest of his sensation is intact. His reflexes are 2+ intact. (-) Bilateral straight leg raise, (-) Layne's, (-) clonus. Imaging review: MRI of the lumbar spine completed here at [facility] shows diffuse spondylosis of the lumbar spine with severe loss of disc height at L3-4. There is mild-moderate central canal and bilateral foraminal stenosis at L2-3. There is severe central canal and bilateral foraminal stenosis at L3-4, and a disc bulge causing severe right sided foraminal stenosis at L4-5. Impression: Geoffrey is a pleasant 89-year-old male with a somewhat complicated past medical history who presents today with primarily right-sided leg numbness below the level of the knee near the anterior tibialis. In addition to this his daughter raises some concerns regarding strength on the right-hand side as he has had some falls recently. He does get occasional pains near the anterior tibialis in the right as well, but states he has previous osteoarthritis of the knee is unsure to what extent this is affecting it. I believe that he is most likely symptomatic from the severe right-sided nerve compression seen at L4-5. I do not believe that the L3-4 segment which is collapsed is necessarily the causative area for his right-sided leg numbness /pain. If he was experiencing a component of low back pain I would be more concerned about this area, but he states he has little to no low back pain. After some extensive discussion, and shared decision-making with the patient in his daughter, we decided that evaluation by our colleagues in pain management for consideration of injections injections would be most appropriate for this patient at this time. He may return to see us in the future if his symptoms worsen, and he wishes to discuss the possibility of surgery to address his symptoms, however the utility of minimally invasive lumbar decompression for numbness alone is fairly low. Thank you for allowing us to care for your patient. The total time spent with this visit with this patient was 45 minutes reviewing history, physical exam, MRI imaging review, and implementation of treatment plan or further diagnostic testing Da Henriquez MD,PhD [facility] Orders: Referrals Pain Management Referral M48.061 - Spinal stenosis, lumbar region without neurogenic claudication Coding Level of Care Code New Pt Level 4 (16508) Diagnoses Spinal stenosis of lumbar region, unspecified whether neurogenic claudication present M48.061 Neurogenic claudication status: unspecified
--- OUTSIDE RECORDS SUMMARY | 2025-03-10 11:37 | XMS_ITS | Clinical Summary ---
Author Organization Unknown Care Team Providers Care Nursing Staffing Coordinator Name Role Phone PO INTERSTATE, LORENVER Unavailable Unavaila pablo VALADEZ PT, JU Unavailable Unavailable EDSON SOYBEAN GROWER, CHI Unavailable Unavailable Payers Payer Name Policy Type Policy Number Effective Date Expira tion Date MEDICARE.NGS.PDGM [id number] Problems Condition Name Condition Details Condition Category Status Onset Date Resolution Date Last Treatment Date Treating Clinician Comments SCIATICA, RIGHT SIDE Active 15 00:00: 00 INTVRT DISC DISORDERS W RADICULOPATH Y, THORACOLUMBA R REGION Active 14 00:00: 00 SPINAL STENOSIS, 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 Active 14 00:00: 00 PARTIAL INTESTINAL OBSTRUCTION, 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 Active 24 00:00: 00 ESSENTIAL (PRIMARY) HYPERTENSION Active 10-30 00:00: 00 PERIPHERAL VASCULAR DISEASE, UNSPECIFIED Active 10-30 00:00: 00 EPILEPSY, UNSP, NOT INTRACTABLE, 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 10-30 00:00: 00 CARPAL TUNNEL SYNDROME, UNSPECIFIED UPPER LIMB Active 10-30 00:00: 00 HYPERLIPIDEM IA, UNSPECIFIED Active 10-30 00:00: 00 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 Active 10-30 00:00: 00 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 OPERATIONS MANAGER (CURRENT) USE OF ANTITHROMBOT ICS/ANTIPLAT ELETS Active [...] tablet,exte nded release 24 hr 06-13 00:00: 02-11 00:00 :00 No [id number] Per instruc tions ONCE DAILY Per instructio ns ONCE DAILY (route: oral) Med Classific ation: Cardiovas cular Therapy Agents tamsulosin 0.4 mg capsule 2019-10 0 00:00: 00 02-11 00:00 :00 No [id number] Per instruc tions ONCE DAILY Per instructio ns ONCE DAILY (route: oral) Med Classific ation: Genitouri nary Therapy rosuvastati n 10 mg tablet 2019-10 00:00: 00 Yes [id number] CHOLESTEROL 1 tablet DAILY 1 tablet DAILY (route: oral) Med Classific ation: Cardiovas cular Therapy Agents lisinopril 5 mg tablet 06-06 00:00: 00 02-11 00:00 :00 No [id number] Per instruc tions ONCE DAILY Per instructio ns ONCE DAILY (route: oral) Med Classific ation: Cardiovas cular Therapy Agents metoprolol tartrate 25 mg tablet 06-06 00:00: 02-11 00:00 :00 No [id number] Per instruc tions TWICE DAILY Per instructio ns TWICE DAILY (route: oral) Med Classific ation: Cardiovas cular Therapy Agents sulfamethox azole 800 mg-trimetho prim 160 mg tablet 2019-10 0 00:00: 00 02-11 00:00 :00 No [id number] Per instruc tions TWICE DAILY FOR 7 DAYS Per instructio ns TWICE DAILY FOR 7 DAYS (route: oral) Med Classific ation: Anti-Infe ctive Agents amlodipine 2.5 mg tablet 01-28 00:00: 00 Yes [id number] HTN 3 tablet BEDTIME 3 tablet BEDTIME (route: oral) Med Classific ation: Cardiovas cular Therapy Agents aspirin 81 mg tablet,zafar yed release 01-28 00:00: 00 Yes [id number] HEART HEALTH 1 tablet DAILY 1 tablet DAILY (route: oral) Med Classific ation: Hematolog ical Agents docusate sodium 100 mg capsule 01-28 00:00: 00 Yes [id number] CONSTIPATIO N 1 capsule DAILY 1 capsule DAILY (route: oral) Med Classific ation: Gastroint estinal Therapy Agents Keppra 250 mg tablet 01-28 00:00: 00 Yes [id number] SEIZURES 1 tablet 2 TIMES DAILY 1 tablet 2 TIMES DAILY (route: oral) Med Classific ation: Central Nervous System Agents Vital Signs Vital Name Observation Time Observation Value Commen ts Temperature 2025-03-07 15:52:00.000 97.1 [degF] Temperature 2025-02-24 12:25:00.000 97.4 [degF] Temperature 2025-02-18 13:58:00.000 96.9 [degF] Temperature 2025-02-17 15:29:00.000 97 [degF] Temperature 2025-02-11 12:10:00.000 97.5 [degF] BMI (%) 2025-02-24 12:25:00.000 23 kg/m2 BMI (%) 2025-02-11 12:10:00.000 23 kg/m2 Height 2025-02-24 12:25:00.000 74 [in_us] Height 2025-02-11 12:10:00.000 74 [in_us] Pulse 2025-03-07 15:52:00.000 74 /min Pulse 2025-02-24 12:25:00.000 76 /min Pulse 2025-02-18 13:58:00.000 72 /min Pulse 2025-02-17 15:29:00.000 60 /min Pulse 2025-02-11 12:10:00.000 66 /min O2 Saturation (%) 2025-03-07 15:52:00.000 98 % O2 Saturation (%) 2025-02-24 12:25:00.000 97 % O2 Saturation (%) 2025-02-18 13:58:00.000 97 % O2 Saturation (%) 2025-02-17 15:29:00.000 96 % O2 Saturation (%) 2025-02-11 12:10:00.000 100 % Respirations 2025-03-07 15:52:00.000 16 /min Respirations 2025-02-24 12:25:00.000 16 /min Respirations 2025-02-18 13:58:00.000 16 /min Respirations 2025-02-17 15:29:00.000 16 /min Respirations 2025-02-11 12:10:00.000 16 /min Weight (lbs) 2025-02-24 12:25:00.000 180 [lb_av] Weight (lbs) 2025-02-11 12:10:00.000 180 [lb_av] Systolic Blood Pressure 2025-03-07 15:52:00.000 130 mm [Hg] Systolic Blood Pressure 2025-02-24 12:25:00.000 140 mm [Hg] Systolic Blood Pressure 2025-02-18 13:58:00.000 140 mm [Hg] Systolic Blood Pressure 2025-02-17 15:31:00.000 138 mm [Hg] Systolic Blood Pressure 2025-02-11 12:10:00.000 120 mm [Hg] Diastolic Blood Pressure 2025-03-07 15:52:00.000 70 mm [Hg] Diastolic Blood Pressure 2025-02-24 12:25:00.000 [...] TO EVALUATE, OBSERVE / ASSESS, AND MONITOR, SOYBEAN GROWER TO OBSERVE AND MONITOR, PROVIDE SKILLED THERAPEUTIC INTERVENTION, ACTIVITY, EDUCATION, AND TRAINING TO ADDRESS; [code = AGENCY MAY PERFORM A RESUMPTION OF CARE VISIT FOLLOWING ANY HOSPITAL ADMISSION. PT TO EVALUATE, OBSERVE / ASSESS, AND MONITOR, SOYBEAN GROWER TO OBSERVE AND MONITOR, PROVIDE SKILLED THERAPEUTIC INTERVENTION, ACTIVITY, EDUCATION, AND TRAINING TO ADDRESS;] Future Scheduled Test CHAIR REINA SFERS (PT/SOYBEAN GROWER) [code = CHAIR TRANSFERS (PT/SOYBEAN GROWER)] Future Scheduled Test PT/SOYBEAN GROWER TO PROVIDE GAIT TRAINING FOR IMPROVED MOBILITY AND /OR TO NORMALIZE GAIT PATTERN [code = PT/SOYBEAN GROWER TO PROVIDE GAIT TRAINING FOR IMPROVED MOBILITY AND /OR TO NORMALIZE GAIT PATTERN] Future Scheduled Test PT/SOYBEAN GROWER TO PROVIDE STAIR TRAINING [code = PT/SOYBEAN GROWER TO PROVIDE STAIR TRAINING] Future Scheduled Test NEUROMUSCU LAR RE-EDUCATION / BALANCE / POSTURAL CONTROL (PT) [code = NEUROMUSCULAR RE-EDUCATION / BALANCE / POSTURAL CONTROL (PT)] Future Scheduled Test THERAPEUTI C EXERCISES AND ESTABLISHING A HOME EXERCISE PROGRAM (PT/SOYBEAN GROWER) [code = THERAPEUTIC EXERCISES AND ESTABLISHING A HOME EXERCISE PROGRAM (PT/SOYBEAN GROWER)] Future Scheduled Test PT/SOYBEAN GROWER TO IDENTIFY FALL RISK FACTORS; EDUCATE THE PATIENT/CAREGIVER ON WAYS TO REDUCE FALL RISK FACTORS AND ESTABLISH HOME EXERCISE PROGRAM TO MINIMIZE FALL RISK. MAY TEACH THE PATIENT FLOOR RECOVERY WHEN CLINICALLY APPROPRIATE [code = PT/SOYBEAN GROWER TO IDENTIFY FALL RISK FACTORS; EDUCATE THE PATIENT/CAREGIVER ON WAYS TO REDUCE FALL RISK FACTORS AND ESTABLISH HOME EXERCISE PROGRAM TO MINIMIZE FALL RISK. MAY TEACH THE PATIENT FLOOR RECOVERY WHEN CLINICALLY APPROPRIATE] Future Scheduled Test PT / SOYBEAN GROWER M AY EDUCATE ON PAIN MANAGEMENT CLINICALLY INDICATED, INCLUDING NON-PHARMACOLOGICAL PAIN REDUCTION TECHNIQUES AND USE OF CRYOTHERAPY OR HEAT UP TO 20 MIN AT A TIME FOR PAIN MANAGEMENT 4 TIMES PER DAY TO LUMBAR REGION. [code = PT / SOYBEAN GROWER MAY EDUCATE ON PAIN MANAGEMENT CLINICALLY INDICATED, [...] End Date/Time Encounter Type Admission Type Attending [facility] [place] Care Department Encounter ID Discharge Date Discharge Status Discharge Condition Discharge Reason Percent Goals Met 2025-02-11 00:00:00 2025-04-11 00:00:00 Outpatient JU EM [facility] [id number] .00
--- OUTSIDE RECORDS SUMMARY | 2025-03-10 11:37 | XMS_ITS | Clinical Summary ---
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 ASPIRIN Active 10-30 00:00: 00 BURNER OPERATOR (CURRENT) USE OF ANTITHROMBOT ICS/ANTIPLAT ELETS [...] hr 06-13 00:00: 02-11 00:00 :00 No [id number] Per instruc tions ONCE DAILY Per instructio ns ONCE DAILY (route: oral) Med Classific ation: Cardiovas cular Therapy Agents tamsulosin 0.4 mg capsule 2019-10 0 00:00: 00 02-11 00:00 :00 No [id number] Per instruc tions ONCE DAILY Per instructio ns ONCE DAILY (route: oral) Med Classific ation: Genitouri nary Therapy rosuvastati n 10 mg tablet 2019-10 00:00: 00 Yes [id number] CHOLESTEROL 1 tablet DAILY 1 tablet DAILY (route: oral) Med Classific ation: Cardiovas cular Therapy Agents lisinopril 5 mg tablet 06-06 00:00: 00 02-11 00:00 :00 No [id number] Per instruc tions ONCE DAILY Per instructio ns ONCE DAILY (route: oral) Med Classific ation: Cardiovas cular Therapy Agents metoprolol tartrate 25 mg tablet 06-06 00:00: 02-11 00:00 :00 No [id number] Per instruc tions TWICE DAILY Per instructio ns TWICE DAILY (route: oral) Med Classific ation: Cardiovas cular Therapy Agents sulfamethox azole 800 mg-trimetho prim 160 mg tablet 2019-10 0 00:00: 00 02-11 00:00 :00 No [id number] Per instruc tions TWICE DAILY FOR 7 DAYS Per instructio ns TWICE DAILY FOR 7 DAYS (route: oral) Med Classific ation: Anti-Infe ctive Agents amlodipine 2.5 mg tablet 01-28 00:00: 00 Yes [id number] HTN 3 tablet BEDTIME 3 tablet BEDTIME (route: oral) Med Classific ation: Cardiovas cular Therapy Agents aspirin 81 mg tablet,zafar yed release 01-28 00:00: 00 Yes [id number] HEART HEALTH 1 tablet DAILY 1 tablet DAILY (route: oral) Med Classific ation: Hematolog ical Agents docusate sodium 100 mg capsule 01-28 00:00: 00 Yes [id number] CONSTIPATIO N 1 capsule DAILY 1 capsule DAILY (route: oral) Med Classific ation: Gastroint estinal Therapy Agents Keppra 250 mg tablet 01-28 00:00: 00 Yes [id number] SEIZURES 1 tablet 2 TIMES DAILY 1 [...] TO EVALUATE, OBSERVE / ASSESS, AND MONITOR, STATION INSTALLER TO OBSERVE AND MONITOR, PROVIDE SKILLED THERAPEUTIC INTERVENTION, ACTIVITY, EDUCATION, AND TRAINING TO ADDRESS; [code = AGENCY MAY PERFORM A RESUMPTION OF CARE VISIT FOLLOWING ANY HOSPITAL ADMISSION. PT TO EVALUATE, OBSERVE / ASSESS, AND MONITOR, STATION INSTALLER TO OBSERVE AND MONITOR, PROVIDE SKILLED THERAPEUTIC INTERVENTION, ACTIVITY, EDUCATION, AND TRAINING TO ADDRESS;] Future Scheduled Test CHAIR REINA SFERS (PT/STATION INSTALLER) [code = CHAIR TRANSFERS (PT/STATION INSTALLER)] Future Scheduled Test PT/STATION INSTALLER TO PROVIDE GAIT TRAINING FOR IMPROVED MOBILITY AND /OR TO NORMALIZE GAIT PATTERN [code = PT/STATION INSTALLER TO PROVIDE GAIT TRAINING FOR IMPROVED MOBILITY AND /OR TO NORMALIZE GAIT PATTERN] Future Scheduled Test PT/STATION INSTALLER TO PROVIDE STAIR TRAINING [code = PT/STATION INSTALLER TO PROVIDE STAIR TRAINING] Future Scheduled Test NEUROMUSCU LAR RE-EDUCATION / BALANCE / POSTURAL CONTROL (PT) [code = NEUROMUSCULAR RE-EDUCATION / BALANCE / POSTURAL CONTROL (PT)] Future Scheduled Test THERAPEUTI C EXERCISES AND ESTABLISHING A HOME EXERCISE PROGRAM (PT/STATION INSTALLER) [code = THERAPEUTIC EXERCISES AND ESTABLISHING A HOME EXERCISE PROGRAM (PT/STATION INSTALLER)] Future Scheduled Test PT/STATION INSTALLER TO IDENTIFY FALL RISK FACTORS; EDUCATE THE PATIENT/CAREGIVER ON WAYS TO REDUCE FALL RISK FACTORS AND ESTABLISH HOME EXERCISE PROGRAM TO MINIMIZE FALL RISK. MAY TEACH THE PATIENT FLOOR RECOVERY WHEN CLINICALLY APPROPRIATE [code = PT/STATION INSTALLER TO IDENTIFY FALL RISK FACTORS; EDUCATE THE PATIENT/CAREGIVER ON WAYS TO REDUCE FALL RISK FACTORS AND ESTABLISH HOME EXERCISE PROGRAM TO MINIMIZE FALL RISK. MAY TEACH THE PATIENT FLOOR RECOVERY WHEN CLINICALLY APPROPRIATE] Future Scheduled Test PT / STATION INSTALLER M AY EDUCATE ON PAIN MANAGEMENT CLINICALLY INDICATED, INCLUDING NON-PHARMACOLOGICAL PAIN REDUCTION TECHNIQUES AND USE OF CRYOTHERAPY OR HEAT UP TO 20 MIN AT A TIME FOR PAIN MANAGEMENT 4 TIMES PER DAY TO LUMBAR REGION. [code = PT / STATION INSTALLER MAY EDUCATE ON PAIN MANAGEMENT CLINICALLY INDICATED, [...] End Date/Time Encounter Type Admission Type Attending [facility] Care Department Encounter ID Discharge Date Discharge Status Discharge Condition Discharge Reason Percent Goals Met 2025-02-11 00:00:00 2025-04-11 00:00:00 Outpatient JU EM [facility] [id number] .00
== END 2025-03-10 11:56 | disposition home or self-care (01) ==
LOC: HO.HNS 10:52
PROVIDERS: PCP Internal Medicine; Referring Provider Internal Medicine; Visit Provider Physician Assistant
DX: M48.061 Spinal stenosis, lumbar region without neurogenic claudication (principal)
CPT/HCPCS: 99204

== ENCOUNTER → 2025-03-10 10:52 | Outpatient (BNVA) | payer MEDICARE, OTHER, SELFPAY | PROVIDERS: PCP Internal Medicine; Referring Provider Internal Medicine; Visit Provider Physician Assistant | DX: M48.061 Spinal stenosis, lumbar region without neurogenic claudication (principal) | CPT/HCPCS: 99202 ==

== ENCOUNTER 2025-03-13 02:21 | Inpatient (IN) | payer MEDICARE, OTHER, SELFPAY ==
[2025-03-13] VITALS (7 sets, daily range): BP systolic 111–180; BP diastolic 56–98; PULSE 54–87; RESP 14–22; TEMP 36.5–36.9; O2SAT 93–98; BMI 23.8; BMI 23.3
--- NOTE | ~2025-03-13 | CT_ITS ---
CLINICAL HISTORY: abd pain, sbo. CT abdomen and pelvis without contrast Comparison: 02/18/2025 Findings: Bibasilar calcified pleural plaques. 3 mm right-sided juxtapleural nodule as before. Small hiatal hernia. Pancreatic fatty infiltration. Simple right renal cyst. No hydronephrosis or urinary tract stone. Mild partial bilateral adrenal gland hyperplasia. Postsurgical rectosigmoid junction changes. Mild haziness of the small bowel mesenteric fat also present on prior study. Relatively moderate grade small-bowel obstruction with obstructed small bowel loops measuring up to 4.3 cm in width and a transition point in the right lower quadrant (series 4, image 550) likely due to adhesion. No evidence of pneumatosis or pneumoperitoneum. Postsurgical midline ventral abdominal wall changes. Colonic diverticulosis without diverticulitis. Appendix not seen and therefore could not be evaluated. Small fat containing left groin hernia. The bones are intact. Spinal degenerative changes. Heavy atherosclerotic calcifications. Flattened IVC. Query hypotension. IMPRESSION: 1. Relatively moderate grade small-bowel obstruction with obstructed small bowel loops measuring up to 4.3 cm in width and a transition point in the right lower quadrant (series 4, image 550) likely due to adhesion. No evidence of pneumatosis or pneumoperitoneum. 2. Flattened IVC. Query hypotension. This document has been electronically signed by: Sheyla Huntley MD on 03/13/2025 05:18:49
--- NOTE | 2025-03-13 02:30 | ECG_ITS ---
Test Reason : ABD PAIN Blood Pressure : */* mmHG Vent. Rate : 67 BPM Atrial Rate : 67 BPM P-R Int : 190 ms QRS Dur : 80 ms QT Int : 394 ms P-R-T Axes : 50 6 54 degrees QTcB Int : 416 ms Normal sinus rhythm Normal ECG When compared with ECG of 19-Jun-2024 08:23, Nonspecific T wave abnormality no longer evident in Inferior leads Referred By: Laina Cartwright Electronically Signed By: FELIX GARCIA MD
--- NOTE | 2025-03-13 02:32 | ED.ABDPAIN ---
HPI - Abdominal Pain General Chief Complaint: Abdominal Pain Stated Complaint: Constipation & ab pain, hx of bowel blockage Time Seen by Provider: 03/13/25 02:25 Source: patient Mode of arrival: ambulatory Limitations: no limitations History of Present Illness ED Provider: DR. Cartwright HPI narrative: 89-year-old male with PMH significant for CAD s/p RCA stent, s/p bilateral endarterectomies of both carotid arteries, prostate cancer s/p radiation, rectal cancer s/p colectomy, recurrent SBOs, appendectomy. Patient came in for evaluation of abdominal bloating and pain, had a small bowel movement earlier today otherwise unable to pass flatus. +nausea and vomiting. Related Data Home Medications ?Medication ?Instructions ?Recorded ?Confirmed aspirin 81 mg tablet,delayed 81 mg PO DAILY 12/01/22 02/19/25 release cyanocobalamin (vitamin B-12) 1,000 mcg PO DAILY 12/01/22 02/19/25 1,000 mcg tablet docusate sodium 100 mg capsule 100 mg PO DAILY PRN Constipation 01/12/24 02/19/25 amlodipine 2.5 mg tablet 5 mg PO BEDTIME 09/16/24 02/19/25 Previous Rx's ?Medication ?Instructions ?Recorded blood pressure monitor #1 ea 09/11/24 levetiracetam 250 mg tablet 250 mg PO BID 90 days #180 tabs 01/16/25 rosuvastatin 10 mg tablet 10 mg PO DAILY #90 tabs 01/24/25 Walker #1 ea 02/14/25 lactulose 10 gram/15 mL oral 30 ml PO DAILY PRN Constipation 02/22/25 solution #946 mL Allergies Allergy/AdvReac Type Severity Reaction Status Date / Time diphenhydramine AdvReac Intermediate Hallucinati Verified 03/13/25 02:33 [From Benadryl] ons Review of Systems Review of Systems All other systems are reviewed and are negative Constitutional: Reports as per HPI and Reports no additional constitutional complaints Eyes: Reports as per HPI and Reports no additional eye complaints Reports system reviewed and no additional complaints, except as documented Cardiovascular: Reports as per HPI and Reports no additional cardiovascular complaints Respiratory: Reports as per HPI and Reports no additional respiratory complaints Gastrointestinal: Reports as per HPI and Reports no additional gastrointestinal complaints Genitourinary: Reports no additional female genitourinary complaints Musculoskeletal: Reports no additional musculoskeletal complaints Skin/Breast: Reports system reviewed and no additional complaints, except as docu Psychiatric: Reports no additional psychiatric complaints Endocrine: Reports no additional endocrine complaints Hematologic/Lymphatic: Reports no additional hematologic/lymphatic complaints Allergic/Immunologic: Reports no additional allergic/immunologic complaints Reports system reviewed and no additional complaints, except as documented and Reports Abnormal speech present [facility] Past Medical History Medical History Partial obstruction of small intestine Overweight (BMI 25.0-29.9) CAD (coronary artery disease) Afib CVA (cerebral vascular accident) Self-catheterizes urinary bladder History of trigger finger Arthritis Preoperative cardiovascular examination Symptomatic stenosis of left carotid artery Rectal cancer Bladder neck contracture GERD (gastroesophageal reflux disease) Urinary incontinence Obstructive sleep apnea Coronary artery disease Type 2 diabetes mellitus with hyperglycemia Small bowel obstruction Erectile dysfunction Peripheral vascular disease Prostate cancer Hematuria Constipation BPH (benign prostatic hyperplasia) Prostate cancer Colon cancer Dysuria Hyperlipidemia, unspecified Essential hypertension Surgical History History of left-sided carotid endarterectomy History of coronary artery stent placement History of exploratory laparotomy History of carpal tunnel release History of prostate surgery (~2017) History of bladder surgery (~01/04/18) History of colectomy History of appendectomy Family History Family History Father Pancreatic cancer Mother No problems noted. Brother Liver cancer Social History Social History Household Members: Family Household Members Other:: Granddaughter Housing: House Are you a primary ocular care technologist to a significant other at home: No Do you presently have visiting nurse or other home services: Yes Unable to assess alcohol history related to: Unable to respond Alcohol intake: never Patient Tobacco Use Status: Former Tobacco user Tobacco use type: Cigarette Smoked in Last 30 Days: No e-Cigarette/Vaping Use: Never Used Second Hand Smoke Exposure: No Use of substances other than those prescribed or required for medical reasons: No Advance Directives: Yes Advance Directives on File: Yes Advance Directives Date on File: 09/29/20 Do you have a plan to hurt others: No Plan service: No Current occupational status: retired Cognitive needs: Yes (cane, walker) Hearing needs: Yes (hearing aide) Vision needs: Yes (glasses) Physical Exam ED Vital Signs: Vital Signs - 24 hr 03/13/25 02:23 03/13/25 02:34 03/13/25 05:16 Temperature 98.4 F 98.4 F 98.4 F Pulse Rate 72 72 76 Respiratory Rate 22 H 22 H 16 Blood Pressure 176/85 H 176/85 H 134/71 Pulse Oximetry 97 97 97 Oxygen Delivery Method Room Air Room Air Room Air BMI result Body Mass Index 23.8 Vital signs have been reviewed and appear to be correct. Blood pressure elevated. Heart rate normal. Respiratory rate normal. Temperature normal. Oxygen saturation normal. Appearance: Alert. Oriented X3. No acute distress. Head: Normal external exam. Normocephalic. Atraumatic. No Landon signs noted. No raccoon eyes noted Eyes: PERRLA. EOMI. Conjunctiva and sclera normal. Eyelids normal. ENT: TM's Normal. Pharynx normal. Uvula midline. Moist mucous membranes. No trismus noted. No drooling noted. No muffled voice noted. Neck: Normal inspection. Neck supple. FROM. No adenopathy. Thyroid Normal. No meningeal signs. No neck mass noted. CVS: Normal heart rate and rhythm. Heart sound normal. No murmurs noted. Pulses normal throughout. Respiratory: No respiratory distress. Painless inspiration. Breath sounds normal. No wheezes/rales/rhonchi noted. Chest nontender. No accessory muscle usage noted or decreased air movement noted. Abdomen: Distended, diffuse abdominal tenderness, no guarding, mild rebound tenderness. No distention noted. No organomegaly noted. No visible injury noted. Back: No CVA tenderness. Full range of motion noted. Skin: Skin warm and dry. Normal skin color. Normal skin turgor. No rashes/lesions/lacerations noted. Extremities: No lower extremity edema. Extremities exhibit normal range of motion. Extremities nontender. Neuro: Oriented X 3. Cranial nerve exam: II-XII are grossly intact No motor deficit. No sensory deficit. Reflexes normal. Course Reevaluation(s) Reevaluation #1: 89-year-old male with history of small-bowel obstruction presented today with abdominal pain CT abdomen pelvis confirmed a diagnosis of small-bowel obstruction case discussed with Dr. Randle home recommended to admit to surgical service. Patient is adamant of not placing NG tube for his condition. Time: 05:46 Medical Decision Making Differential Diagnosis Differential Diagnoses: The differential diagnosis associated with the presentation includes ( small bowel obstruction, constipation, colitis, diverticulitis, pancreatitis, severe anemia, electrolyte derangement.) Admission/Observation Consideration of admission/observation: Escalation of care including admission/observation considered Consult Healthcare Provider Management of the patient was discussed with: Welt Stitcher (Dr. Randle) Lab Data MDM Lab Attestation statement: I reviewed the patient's lab results. 03/13/25 03:17 03/13/25 03:17 Labs: Lab Results 03/13/25 Range/Units 03:17 WBC 9.3 (4.8-10.8) X10*3/uL RBC 4.76 (4.60-5.80) X10*6/uL Hgb 13.8 L (14.0-18.0) g/dl Hct 39.7 L (42.0-52.0) % MCV 83.4 (80.0-98.0) fL MCH 29.0 (27.0-33.0) pg MCHC 34.8 (31.0-36.0) g/dl RDW 13.5 (11.0-16.0) % Plt Count 294 D (160-400) X10*3/uL MPV 9.6 (9.4-12.4) fL Immature Gran % (Auto) 0.5 H (0.0-0.4) % Neut % (Auto) 70.3 (45-73) % Lymph % (Auto) 19.5 L (20-40) % Petroleum % (Auto) 6.3 (2-11) % Eos % (Auto) 3.0 (0-4) % Baso % (Auto) 0.4 (0-2) % Lymph # (Auto) 1.8 (1.2-4.9) X10*3/uL Petroleum # (Auto) 0.6 (0.1-1.2) X10*3/uL Eos # (Auto) 0.3 (0.0-0.4) X10*3/uL Baso # (Auto) 0.0 (0.0-0.2) X10*3/uL Abs Immat Gran (auto) 0.05 H (0.00-0.03) X10*3/uL Absolute Neuts (auto) 6.6 (2.0-8.3) x10*3/uL Absolute Nucleated RBC 0.000 (0.0-0.012) X10*3/uL Nucleated RBC % (auto) 0.0 (0.0-0.2) /100WBC Sodium 138 (135-145) mmol/L Potassium 4.7 (3.3-5.1) mmol/L Chloride 108 (96-108) mmol/L Carbon Dioxide 21 L (22-29) mmol/L Anion Gap 14 (12-20) BUN 17 H (9-16) mg/dL Creatinine 1.08 (0.5-1.4) mg/dL Estim Creat Clear Calc 53.9 Estimated GFR > 60 Random Glucose 129 H (60-115) mg/dL Calcium 9.7 D (8.4-10.2) mg/dL Total Bilirubin 0.4 (0.0-1.0) mg/dL Direct Bilirubin 0.2 (0.0-0.5) mg/dL AST 26 (5-37) U/L ALT 22 (0-40) U/L Alkaline Phosphatase 91 (39-117) U/L Troponin I High Sens 14.6 D (<3.5-35.0) ng/L B-Natriuretic Peptide 63 (<100) pg/mL Total Protein 6.8 (6.5-8.0) g/dL Albumin 4.2 (3.5-5.0) g/dL Lipase 11 (8-78) U/L Independent Interpretation I performed an independent interpretation of an: CT Scan (Abdomen pelvis:. Relatively moderate grade small-bowel obstruction with obstructed small bowel loops measuring up to 4.3 cm in width and a transition point in the right lower quadrant (series 4, image 550) likely due to adhesion. No evidence of pneumatosis or pneumoperitoneum. 2. Flattened IVC. Q) Radiology Impression Discussion of test interpretation with radiology: I have reviewed the radiologist's reading. Medications Administered Discontinued Medications Generic Name Dose Route Start Last Admin Trade Name Freq PRN Reason Stop Dose Admin Ketorolac Tromethamine 15 mg 03/13/25 05:33 03/13/25 05:38 Ketorolac Tromethamine 15 Mg/Ml Vial IVPUSH 03/13/25 05:34 15 mg ONCE ONE Administration Morphine Sulfate 2 mg 03/13/25 02:31 03/13/25 02:40 Morphine Sulfate 2 Mg/Ml Cartridge IVPUSH 03/13/25 02:32 2 mg ONCE ONE Administration Protocol Morphine Sulfate 1 mg 03/13/25 05:33 03/13/25 05:38 Morphine Sulfate 2 Mg/Ml Cartridge IVPUSH 03/13/25 05:34 1 mg ONCE ONE Administration Protocol Ondansetron HCl 4 mg 03/13/25 02:36 03/13/25 02:40 Ondansetron Hcl 4 Mg/2 Ml Vial IVPUSH 03/13/25 02:37 4 mg ONCE ONE Administration Discharge Plan Discharge Clinical Impression: Small bowel obstruction Patient Disposition: Admitted As Inpatient Print Language: Lithuanian
[2025-03-13] MEDS: Morphine Sulfate 2 MG/ML CARTRIDGE IVPUSH (02:40)
[2025-03-13] MEDS: ondansetron HCL 4 MG/2 ML VIAL IVPUSH (02:40)
[2025-03-13 03:27] LABS: MANUAL DIFF FLAG NO
[2025-03-13 03:28] LABS: Basophils Percent Auto 0.4 % (0-2); Eosinophils Absolute Auto 0.3 X10*3/uL (0.0-0.4); Hematocrit 39.7 % (42.0-52.0); Hemoglobin 13.8 g/dl (14.0-18.0); Imm Gran Abs Auto 0.05 X10*3/uL (0.00-0.03); Imm Gran Pct Auto 0.5 % (0.0-0.4); Lymphocytes Absolute Auto 1.8 X10*3/uL (1.2-4.9); Lymphocytes Percent Auto 19.5 % (20-40); Mean Corpuscular HGB Conc 34.8 g/dl (31.0-36.0); Mean Corpuscular Volume 83.4 fL (80.0-98.0); Mean Platelet Volume 9.6 fL (9.4-12.4); Monocytes Absolute Auto 0.6 X10*3/uL (0.1-1.2); Monocytes Percent Auto 6.3 % (2-11); Neutrophils Absolute Auto 6.6 x10*3/uL (2.0-8.3); Neutrophils Percent Auto 70.3 % (45-73); Platelet Count 294 X10*3/uL (160-400); Red Blood Count 4.76 X10*6/uL (4.60-5.80); Red Cell Distribution Width 13.5 % (11.0-16.0); White Blood Count 9.3 X10*3/uL (4.8-10.8)
[2025-03-13 03:46] LABS: Alanine Aminotransferase 22 U/L (0-40); Albumin Level 4.2 g/dL (3.5-5.0); Alkaline Phosphatase 91 U/L (39-117); Anion Gap 14 (12-20); Aspartate Amino Transferase 26 U/L (5-37); Bilirubin Direct 0.2 mg/dL (0.0-0.5); Bilirubin Total 0.4 mg/dL (0.0-1.0); Blood Urea Nitrogen 17 mg/dL (9-16); Calcium 9.7 mg/dL (8.4-10.2); Carbon Dioxide 21 mmol/L (22-29); Chloride 108 mmol/L (96-108); Creatinine Clr Calc Pharmacy 53.9; Estimated Glomerular Filt Rate > 60; Glucose Random 129 mg/dL (60-115); Lipase 11 U/L (8-78); Potassium 4.7 mmol/L (3.3-5.1); Sodium 138 mmol/L (135-145); Total Protein 6.8 g/dL (6.5-8.0); Troponin-I High Sensitivity 14.6 ng/L (<3.5-35.0)
[2025-03-13 03:54] LABS: B Type Natriuretic Peptide 63 pg/mL (<100)
[2025-03-13] MEDS: Ketorolac Tromethamine 15 MG/ML VIAL IVPUSH (05:38)
[2025-03-13] MEDS: Morphine Sulfate 2 MG/ML CARTRIDGE 1 MG IVPUSH (05:38)
--- NOTE | 2025-03-13 07:24 | PC.NURSE ---
This RN assumed care of patient @ 0700. Pain reassesment not completed as medication was administered by previous shift.
--- NOTE | 2025-03-13 07:34 | PC.NURSE ---
Razia at bedside to evaluate pt
--- NOTE | 2025-03-13 07:49 | PM.HPGS ---
History of Present Illness History of Present Illness Date of Service: 03/13/25 Chief complaint: small-bowel obstruction, partial Narrative: Geoffrey Bone is a 89 year old male presenting with complaints of abdominal pain which began last evening. He reports nausea without vomiting. Symptoms are similar to his previous episodes of small-bowel obstruction. He returned to the emergency department when the symptoms did not improve. He denies any fever or chills. This morning he feels slightly improved has been passing some flatus. He continues to have some abdominal distention and pain. Review of Systems Review of Systems: Yes all other systems are reviewed and are negative [facility] Past Medical History Medical History Partial obstruction of small intestine Overweight (BMI 25.0-29.9) CAD (coronary artery disease) Afib CVA (cerebral vascular accident) Self-catheterizes urinary bladder History of trigger finger Arthritis Preoperative cardiovascular examination Symptomatic stenosis of left carotid artery Rectal cancer Bladder neck contracture GERD (gastroesophageal reflux disease) Urinary incontinence Obstructive sleep apnea Coronary artery disease Type 2 diabetes mellitus with hyperglycemia Small bowel obstruction Erectile dysfunction Peripheral vascular disease Prostate cancer Hematuria Constipation BPH (benign prostatic hyperplasia) Prostate cancer Colon cancer Dysuria Hyperlipidemia, unspecified Essential hypertension Family History Family History Father Pancreatic cancer Mother No problems noted. Brother Liver cancer Surgical History Surgical History History of left-sided carotid endarterectomy History of coronary artery stent placement History of exploratory laparotomy History of carpal tunnel release History of prostate surgery (~2017) History of bladder surgery (~01/04/18) History of colectomy History of appendectomy Social History Social History Household Members: Family Household Members Other:: Granddaughter Housing: House Are you a primary palliative care specialist to a significant other at home: No Do you presently have visiting nurse or other home services: Yes Unable to assess alcohol history related to: Unable to respond Alcohol intake: never Patient Tobacco Use Status: Former Tobacco user Tobacco use type: Cigarette Smoked in Last 30 Days: No e-Cigarette/Vaping Use: Never Used Second Hand Smoke Exposure: No Use of substances other than those prescribed or required for medical reasons: No Advance Directives: Yes Advance Directives on File: Yes Advance Directives Date on File: 09/29/20 Do you have a plan to hurt others: No Plan service: No Current occupational status: retired Cognitive needs: Yes (cane, walker) Hearing needs: Yes (hearing aide) Vision needs: Yes (glasses) Meds Allergies Allergy/AdvReac Type Severity Reaction Status Date / Time diphenhydramine AdvReac Intermediate Hallucinati Verified 03/13/25 02:33 [From Tereza] ons Active Medications: Current Medications Calcium Carbonate (Calcium Carbonate 750 Mg Tab.Chew) 750 mg PO Q4H PRN PRN Reason: Heartburn Enoxaparin Sodium (Enoxaparin Sodium 40 Mg/0.4 Ml Syringe) 40 mg SUBCUT Q24H KRISTINE Hydromorphone HCl (Hydromorphone Hcl 0.5 Mg/0.5 Ml Syringe) 0.5 mg IVPUSH Q3H PRN; Protocol PRN Reason: Pain, Severe (Pain Scale 7-10) Acetaminophen (Ofirmev) 1,000 mg in 100 mls @ 400 mls/hr IV Q6H PRN PRN Reason: Pain, Mild (Pain Scale 1-3) Dextrose/Lactated Ringer's (D5lr) 1,000 mls @ 125 mls/hr IVCONT .Q8H KRISTINE Magnesium Hydroxide (Milk Of Magnesia 30 Ml Oral.Susp) 30 ml PO DAILY PRN PRN Reason: Constipation Melatonin (Melatonin 3 Mg Tablet) 6 mg PO BEDTIME PRN PRN Reason: Insomnia Ondansetron HCl (Ondansetron Hcl 4 Mg/2 Ml Vial) 4 mg IVPUSH QID PRN PRN Reason: Nausea Oxycodone HCl (Oxycodone Hcl Immed Release 5 Mg Tablet) 5 mg PO Q6H PRN PRN Reason: Pain, Moderate(Pain Scale 4-6) Sodium Chloride (0.9 % Sodium Chloride Flush 3 Ml Syringe) 3 ml IVFLUSH QSHIFT [facility] Home Medications ?Medication ?Instructions ?Recorded ?Confirmed ?Last Taken ?Type aspirin 81 mg tablet,delayed 81 mg PO DAILY 12/01/22 02/19/25 02/18/25 History release cyanocobalamin (vitamin B-12) 1,000 mcg PO DAILY 12/01/22 02/19/25 02/18/25 History 1,000 mcg tablet docusate sodium 100 mg capsule 100 mg PO DAILY PRN Constipation 01/12/24 02/19/25 06/18/24 History amlodipine 2.5 mg tablet 5 mg PO BEDTIME 09/16/24 02/19/25 02/18/25 History cephalexin 500 mg capsule 500 mg PO QID 03/13/25 Unknown History sulfamethoxazole 800 1 tab PO BID 03/13/25 Unknown History mg-trimethoprim 160 mg tablet Physical Exam Vital Signs: Vital Signs: Last Vital Signs Temp 97.9 F 03/13/25 06:12 Pulse 72 03/13/25 06:12 Resp 18 03/13/25 06:12 BP 126/58 L 03/13/25 06:12 Pulse Ox 98 03/13/25 06:12 O2 Del Method Room Air 03/13/25 06:12 BMI result Body Mass Index 23.8 Const: General: no acute distress Nutritional Appearance: well nourished Orientation/consciousness: patient oriented x3 Resp: Effort & Inspection: normal respiratory effort GI: Inspection: Yes distended Palpation (GI): Soft to palpation, Tenderness to palpation present (GI), no guarding and not rigid Percussion: Yes tympanic to percussion Auscultation: normal bowel sounds Neuro: General: patient oriented x3 Extrem: General: Yes normal to inspection Results Results Labs: Short CBC 03/13/25 Range/Units 03:17 WBC 9.3 (4.8-10.8) X10*3/uL Hgb 13.8 L (14.0-18.0) g/dl Hct 39.7 L (42.0-52.0) % Plt Count 294 D (160-400) X10*3/uL BMP 03/13/25 03:17 Sodium 138 Potassium 4.7 Chloride 108 Carbon Dioxide 21 L BUN 17 H Creatinine 1.08 Calcium 9.7 D Liver Function 03/13/25 Range/Units 03:17 Total Bilirubin 0.4 (0.0-1.0) mg/dL Direct Bilirubin 0.2 (0.0-0.5) mg/dL AST 26 (5-37) U/L ALT 22 (0-40) U/L Alkaline Phosphatase 91 (39-117) U/L Albumin 4.2 (3.5-5.0) g/dL Assessment and Plan (1) Partial obstruction of small intestine: Status: Acute Plan 89-year-old male patient well known to service with multiple previous admissions for small bowel obstruction returning today with increased abdominal pain of 12 hours duration with the associated nausea without vomiting. This morning the patient does feel slightly improved with IV hydration. We will admit for continued hydration, NPO, bowel rest. Patient expressed understanding and agrees with the plan. Quality Stroke Does the patient have a stroke diagnosis?: No VTE Prior VTE?: No VTE Risk Level:: Surgical - moderate VTE Device Contraindication: N/A - Device Ordered VTE Drug Contraindication: N/A - Med Ordered Procedures Date of Service Date of Service: 03/13/25
[2025-03-13] MEDS: 0.9 % Sodium Chloride Flush 3 ML SYRINGE IVFLUSH ×2 (07:58→15:32)
[2025-03-13] MEDS: Enoxaparin Sodium 40 MG/0.4 ML SYRINGE SUBCUT (07:58)
[2025-03-13] MEDS: Dextrose 5 % and Lactated Ring 1,000 ML 125 ML IVCONT ×3 (08:01→23:44)
--- NOTE | 2025-03-13 08:07 | PC.NURSE ---
This RN assumed care of patient @ 0700. 18G in LFA patent currently running D5LR @ 125. Patient c/o abdomen pain rated 5/10, patient refused any pain medications at this time stating It seems to be subsiding right now . Call shin placed in reach.
--- NOTE | 2025-03-13 09:24 | PHA.MEDREC ---
Pharmacy Consult ? Medication Reconciliation Pharmacy has completed the medication reconciliation.
[2025-03-13 13:41] LABS: Appearance Urine Clear; Color Urine Yellow; Glucose Urine UA Negative (Negative); Leukocyte Esterase Urine Negative (Negative); Nitrite Urine Negative (Negative); Urine Blood Negative (Negative); Urine Ketones Negative (Negative); Urine Protein Negative (Neg-Trace)
--- NOTE | 2025-03-13 16:08 | P.CONIM_ITS ---
History of Present Illness Data of Consult Service Date: 03/13/25 Requesting physician: Simon Randle Primary Care Provider: Pro Nunn MD [facility] Reason for consult: Medical management This is an 89-year-old male with a PMH significant for CAD s/p RCA stenting 10/2023, carotid stenosis s/p bilateral endarterectomies, prostate cancer s/p radiation, rectal cancer s/p resection, bladder neck obstruction, recurrent SBOs, post-operative paroxysmal AFib not on anticoagulation, and TORRES not on CPAP [facility] Medical History Partial obstruction of small intestine Overweight (BMI 25.0-29.9) CAD (coronary artery disease) Afib CVA (cerebral vascular accident) Self-catheterizes urinary bladder History of trigger finger Arthritis Preoperative cardiovascular examination Symptomatic stenosis of left carotid artery Rectal cancer Bladder neck contracture GERD (gastroesophageal reflux disease) Urinary incontinence Obstructive sleep apnea Coronary artery disease Type 2 diabetes mellitus with hyperglycemia Small bowel obstruction Erectile dysfunction Peripheral vascular disease Prostate cancer Hematuria Constipation BPH (benign prostatic hyperplasia) Prostate cancer Colon cancer Dysuria Hyperlipidemia, unspecified Essential hypertension Family History Father Pancreatic cancer Mother No problems noted. Brother Liver cancer Surgical History History of left-sided carotid endarterectomy History of coronary artery stent placement History of exploratory laparotomy History of carpal tunnel release History of prostate surgery (~2017) History of bladder surgery (~01/04/18) History of colectomy History of appendectomy Social History Household Members: Other Household Members Other:: [facility] Housing: House Are you a primary director of patient care to a significant other at home: No Do you presently have visiting nurse or other home services: No Unable to assess alcohol history related to: Unable to respond Alcohol intake: never Patient Tobacco Use Status: Former Tobacco user Tobacco use type: Cigarette e-Cigarette/Vaping Use: Never Used Second Hand Smoke Exposure: No Advance Directives Date on File: 09/29/20 service: No Current occupational status: retired Cognitive needs: Yes (cane, walker) Hearing needs: Yes (hearing aide) Vision needs: Yes (glasses) Meds Allergies Allergy/AdvReac Type Severity Reaction Status Date / Time diphenhydramine AdvReac Intermediate Hallucinati Verified 03/13/25 02:33 [From Tereza] ons Active Medications: Current Medications Calcium Carbonate (Calcium Carbonate 750 Mg Tab.Chew) 750 mg PO Q4H PRN PRN Reason: Heartburn Enoxaparin Sodium (Enoxaparin Sodium 40 Mg/0.4 Ml Syringe) 40 mg SUBCUT Q24H [facility] Last Admin: 03/13/25 07:58 Dose: 40 mg Hydromorphone HCl (Hydromorphone Hcl 0.5 Mg/0.5 Ml Syringe) 0.5 mg IVPUSH Q3H PRN; Protocol PRN Reason: Pain, Severe (Pain Scale 7-10) Acetaminophen (Ofirmev) 1,000 mg in 100 mls @ 400 mls/hr IV Q6H PRN PRN Reason: Pain, Mild (Pain Scale 1-3) Dextrose/Lactated Ringer's (D5lr) 1,000 mls @ 125 mls/hr IVCONT .Q8H [facility] Last Admin: 03/13/25 15:31 Dose: 125 mls/hr Magnesium Hydroxide (Milk Of Magnesia 30 Ml Oral.Susp) 30 ml PO DAILY PRN PRN Reason: Constipation Melatonin (Melatonin 3 Mg Tablet) 6 mg PO BEDTIME PRN PRN Reason: Insomnia Ondansetron HCl (Ondansetron Hcl 4 Mg/2 Ml Vial) 4 mg IVPUSH QID PRN PRN Reason: Nausea Oxycodone HCl (Oxycodone Hcl Immed Release 5 Mg Tablet) 5 mg PO Q6H PRN PRN Reason: Pain, Moderate(Pain Scale 4-6) Sodium Chloride (0.9 % Sodium Chloride Flush 3 Ml Syringe) 3 ml IVFLUSH QSHIFT [facility] Last Admin: 03/13/25 15:32 Dose: 3 ml Home Medications ?Medication ?Instructions ?Recorded ?Confirmed ?Last Taken ?Type aspirin 81 mg tablet,delayed 81 mg PO DAILY 12/01/22 03/13/25 03/12/25 History release amlodipine 2.5 mg tablet 5 mg PO BEDTIME 09/16/24 03/13/25 03/12/25 History gabapentin 100 mg capsule 100 mg PO BID 03/13/25 03/13/25 03/12/25 History sulfamethoxazole 800 1 tab PO BID 03/13/25 03/13/25 03/12/25 History mg-trimethoprim 160 mg tablet Physical Exam 2 Vital Signs and Narrative: Vital Signs: Last Vital Signs Temp 98.3 F 03/13/25 15:13 Pulse 54 03/13/25 15:13 Resp 14 03/13/25 15:13 BP 128/61 03/13/25 15:13 Pulse Ox 98 03/13/25 15:13 O2 Del Method Room Air 03/13/25 15:13 BMI result Body Mass Index 23.3 Results Labs 03/13/25 03:17 03/13/25 03:17 Labs: Laboratory Results - last 24 hr 03/13/25 03/13/25 03:17 13:11 MCV 83.4 MCH 29.0 MCHC 34.8 RDW 13.5 Plt Count 294 D MPV 9.6 Immature Gran % (Auto) 0.5 H Neut % (Auto) 70.3 Lymph % (Auto) 19.5 L [place] % (Auto) 6.3 Eos % (Auto) 3.0 Baso % (Auto) 0.4 Lymph # (Auto) 1.8 [place] # (Auto) 0.6 Eos # (Auto) 0.3 Baso # (Auto) 0.0 Abs Immat Gran (auto) 0.05 H Absolute Neuts (auto) 6.6 Absolute Nucleated RBC 0.000 Nucleated RBC % (auto) 0.0 Anion Gap 14 Estim Creat Clear Calc 53.9 Estimated GFR > 60 Random Glucose 129 H Calcium 9.7 D Total Bilirubin 0.4 Direct Bilirubin 0.2 AST 26 ALT 22 Alkaline Phosphatase 91 B-Natriuretic Peptide 63 Total Protein 6.8 Albumin 4.2 Lipase 11 Urine Color Yellow Urine Appearance Clear Urine pH 6.0 Ur Specific [place] 1.010 Urine Protein Negative Urine Glucose (UA) Negative Urine Ketones Negative Urine Blood Negative Urine Nitrite Negative Ur Leukocyte Esterase Negative Assessment and Plan (1) Small bowel obstruction: Status: Acute Plan This is an 89-year-old male with a PMH significant for CAD s/p RCA stenting 10/2023, carotid stenosis s/p bilateral endarterectomies, prostate cancer s/p radiation, rectal cancer s/p resection, bladder neck obstruction, recurrent SBOs, post-operative paroxysmal AFib not on anticoagulation, and TORRES not on CPAP. Initially presented to the ED for gradually worsening abdominal pain since last night. CT of abdomen and pelvis found small bowel obstruction. Hospitalist consult for medical management SBO Denies N/V currently NPO Plan as per General surgery Left arm abscess with cellulitis s/p I&D 03/07 Diagnosed as outpatient and started on Bactrim - end date 03/17 CAD/HLD Hold aspirin in case patient requires surgery Can resume statin when tolerating diet Paroxysmal AFib Noted during ICU stay in 12/19/2023 Not on anticoagulation or rate control med Seizure disorder Continue Keppra HTN continue amlodipine TORRES Not on CPAP Diet-controlled type 2 diabetes Patient says he does not have diabetes Check HbA1c Diabetic diet once diet advanced Thank you for allowing us to participate this patient. We will follow along with you
[2025-03-13 17:21] LABS: Estimated Average Glucose 123 mg/dL; Hemoglobin A1c % 5.9 % (<6.0); Total Hemoglobin (HGBA1C) 3559.9122 umol/L
[2025-03-13] MEDS: amLODIPine Besylate 5 MG TABLET PO (20:30)
[2025-03-13] MEDS: levETIRAcetam 250 MG TABLET PO (20:31)
[2025-03-13] MEDS: Gabapentin 100 MG CAPSULE PO (20:31)
[2025-03-13] MEDS: Sulfamethox/Trimeth 800/160 TABLET 1 TAB PO (20:31)
[2025-03-14 06:00] VITALS: BP 121/64; PULSE 51; RESP 18; TEMP 36.5; O2SAT 93
[2025-03-14 06:22] LABS: MANUAL DIFF FLAG NO
[2025-03-14 06:29] LABS: Basophils Percent Auto 0.6 % (0-2); Eosinophils Absolute Auto 0.3 X10*3/uL (0.0-0.4); Hematocrit 33.9 % (42.0-52.0); Hemoglobin 11.3 g/dl (14.0-18.0); Imm Gran Abs Auto 0.01 X10*3/uL (0.00-0.03); Imm Gran Pct Auto 0.2 % (0.0-0.4); Lymphocytes Absolute Auto 1.7 X10*3/uL (1.2-4.9); Lymphocytes Percent Auto 32.6 % (20-40); Mean Corpuscular HGB Conc 33.3 g/dl (31.0-36.0); Mean Corpuscular Hemoglobin 28.6 pg (27.0-33.0); Mean Corpuscular Volume 85.8 fL (80.0-98.0); Mean Platelet Volume 9.8 fL (9.4-12.4); Monocytes Absolute Auto 0.5 X10*3/uL (0.1-1.2); Monocytes Percent Auto 10.1 % (2-11); Neutrophils Absolute Auto 2.7 x10*3/uL (2.0-8.3); Neutrophils Percent Auto 50.5 % (45-73); Platelet Count 262 X10*3/uL (160-400); Red Blood Count 3.95 X10*6/uL (4.60-5.80); Red Cell Distribution Width 13.5 % (11.0-16.0); White Blood Count 5.3 X10*3/uL (4.8-10.8)
[2025-03-14 07:05] LABS: Anion Gap 8 (12-20); Blood Urea Nitrogen 12 mg/dL (9-16); Calcium 8.2 mg/dL (8.4-10.2); Carbon Dioxide 24 mmol/L (22-29); Chloride 111 mmol/L (96-108); Creatinine Clr Calc Pharmacy 66.9; Estimated Glomerular Filt Rate > 60; Glucose Random 110 mg/dL (60-115); Potassium 4.3 mmol/L (3.3-5.1); Sodium 139 mmol/L (135-145)
[2025-03-14] MEDS: Enoxaparin Sodium 40 MG/0.4 ML SYRINGE SUBCUT (07:25)
[2025-03-14] MEDS: Sulfamethox/Trimeth 800/160 TABLET 1 TAB PO ×2 (07:26→22:10)
[2025-03-14] MEDS: Dextrose 5 % and Lactated Ring 1,000 ML 125 ML IVCONT (07:26)
[2025-03-14] MEDS: Gabapentin 100 MG CAPSULE PO ×2 (07:26→22:11)
[2025-03-14] MEDS: levETIRAcetam 250 MG TABLET PO ×2 (07:26→22:10)
--- NOTE | 2025-03-14 08:06 | P.PNGS_ITS ---
Subjective Subjective Date of Service: 03/14/25 <Nayeli Prado PA-C - Last Filed: 03/14/25 08:10> 03/14/25 <Simon Randle MD - Last Filed: 03/14/25 13:36> Interval history: Feels a little better this morning, mild abdominal pain. Had a small BM yesterday. <Nayeli Prado PA-C - Last Filed: 03/14/25 08:10> Physical Exam 2 Vital Signs: Vital Signs: Last Vital Signs Temp 97.7 F 03/14/25 06:00 Pulse 51 03/14/25 06:00 Resp 18 03/14/25 06:00 BP 121/64 03/14/25 06:00 Pulse Ox 93 03/14/25 06:00 O2 Del Method Room Air 03/14/25 06:00 BMI result Body Mass Index 23.3 <Nayeli Prado PA-C - Last Filed: 03/14/25 08:10> Const: General: comfortable, no acute distress and alert <Nayeli Prado PA-C - Last Filed: 03/14/25 08:10> Orientation/consciousness: patient oriented x3 <MARTHA Lopez Last Filed: 03/14/25 08:10> Resp: Effort & Inspection: normal respiratory effort <MARTHA Lopez Last Filed: 03/14/25 08:10> GI: Inspection: Yes distended <Nayeli Prado PA-C - Last Filed: 03/14/25 08:10> Palpation (GI): Soft to palpation, Tenderness to palpation present (GI) (mild upper abdominal tenderness) with no rebound tenderness and no guarding < Nayeli Prado PA-C - Last Filed: 03/14/25 08:10> Percussion: Yes normal to percussion <MARTHA Lopez Last Filed: 03/14/25 08:10> Skin: General skin exam: no rashes or lesions noted <MARTHA Lopez Last Filed: 03/14/25 08:10> Neuro: General: patient oriented x3 and moves all extremities <Nayeli Prado PA-C - Last Filed: 03/14/25 08:10> Objective Data Active Medications Amlodipine Besylate (Amlodipine Besylate 5 Mg Tablet) 5 mg PO BEDTIME [facility]; Protocol Last Admin: 03/13/25 20:30 Dose: 5 mg Documented By: LEXX Calcium Carbonate (Calcium Carbonate 750 Mg Tab.Chew) 750 mg PO Q4H PRN PRN Reason: Heartburn Enoxaparin Sodium (Enoxaparin Sodium 40 Mg/0.4 Ml Syringe) 40 mg SUBCUT Q24H [facility] Last Admin: 03/14/25 07:25 Dose: 40 mg Documented By: THANH Gabapentin (Gabapentin 100 Mg Capsule) 100 mg PO BID [facility] Last Admin: 03/14/25 07:26 Dose: 100 mg Documented By: THANH Hydromorphone HCl (Hydromorphone Hcl 0.5 Mg/0.5 Ml Syringe) 0.5 mg IVPUSH Q3H PRN; Protocol PRN Reason: Pain, Severe (Pain Scale 7-10) Acetaminophen (Ofirmev) 1,000 mg in 100 mls @ 400 mls/hr IV Q6H PRN PRN Reason: Pain, Mild (Pain Scale 1-3) Dextrose/Lactated Ringer's (D5lr) 1,000 mls @ 125 mls/hr IVCONT .Q8H [facility] Last Admin: 03/14/25 07:26 Dose: 125 mls/hr Documented By: THANH Levetiracetam (Levetiracetam 250 Mg Tablet) 250 mg PO BID [facility] Last Admin: 03/14/25 07:26 Dose: 250 mg Documented By: THANH Magnesium Hydroxide (Milk Of Magnesia 30 Ml Oral.Susp) 30 ml PO DAILY PRN PRN Reason: Constipation Melatonin (Melatonin 3 Mg Tablet) 6 mg PO BEDTIME PRN PRN Reason: Insomnia Ondansetron HCl (Ondansetron Hcl 4 Mg/2 Ml Vial) 4 mg IVPUSH QID PRN PRN Reason: Nausea Oxycodone HCl (Oxycodone Hcl Immed Release 5 Mg Tablet) 5 mg PO Q6H PRN PRN Reason: Pain, Moderate(Pain Scale 4-6) Sodium Chloride (0.9 % Sodium Chloride Flush 3 Ml Syringe) 3 ml IVFLUSH QSHIFT [facility] Last Admin: 03/14/25 07:08 Dose: Not Given Documented By: THANH Non-Admin Reason: Previously Administered Trimethoprim/Sulfamethoxazole (Sulfamethox/Trimeth 800/160 Tablet) 1 tab PO BID [facility] Last Admin: 03/14/25 07:26 Dose: 1 tab Documented By: THANH <Nayeli Prado PA-C - Last Filed: 03/14/25 08:10> Labs CBC & Chem 7: 03/14/25 05:24 03/14/25 05:24 <Nayeli Prado PA-C - Last Filed: 03/14/25 08:10> Labs: Laboratory Results - last 24 hr 03/13/25 03/13/25 03/14/25 03:17 13:11 05:24 MCV 85.8 MCH 28.6 MCHC 33.3 RDW 13.5 Plt Count 262 MPV 9.8 Immature Gran % (Auto) 0.2 Neut % (Auto) 50.5 Lymph % (Auto) 32.6 [place] % (Auto) 10.1 Eos % (Auto) 6.0 H Baso % (Auto) 0.6 Lymph # (Auto) 1.7 [place] # (Auto) 0.5 Eos # (Auto) 0.3 Baso # (Auto) 0.0 Abs Immat Gran (auto) 0.01 Absolute Neuts (auto) 2.7 Absolute Nucleated RBC 0.000 Nucleated RBC % (auto) 0.0 Anion Gap 8 L Estim Creat Clear Calc 66.9 Estimated GFR > 60 Random Glucose 110 Estimat Average Glucose 123 Hemoglobin A1c % 5.9 Calcium 8.2 L D Urine Color Yellow Urine Appearance Clear Urine pH 6.0 Ur Specific [place] 1.010 Urine Protein Negative Urine Glucose (UA) Negative Urine Ketones Negative Urine Blood Negative Urine Nitrite Negative Ur Leukocyte Esterase Negative <Nayeli Prado PA-C - Last Filed: 03/14/25 08:10> Procedures Date of Service Date of Service: 03/14/25 <Nayeli Prado PA-C - Last Filed: 03/14/25 08:10> 03/14/25 <Simon Randle MD - Last Filed: 03/14/25 13:36> Progress Note: A&P Assessment and plan (1) Partial obstruction of small intestine: Status: Acute <MARTHA Lopez Last Filed: 03/14/25 08:10> Assessment and Plan: Improvement in symptoms with evidence of GI function. Abd remains soft and overall benign, mild distention and upper abd tenderness. Will advance to clear liquids, encouraged OOB/ambulation today. Further plan dependent on clinical course. <Nayeli Prado PA-C - Last Filed: 03/14/25 08:10> Time Spent With Patient Time: Total time managing care of this patient today ____ minutes. <Nayeli Prado PA-C - Last Filed: 03/14/25 08:10> Quality Stroke Does the patient have a stroke diagnosis?: No <Nayeli Prado PA-C - Last Filed: 03/14/25 08:10> VTE Prior VTE?: No <MARTHA Lopez Last Filed: 03/14/25 08:10> VTE Risk Level:: Surgical - moderate <MARTHA Lopez Last Filed: 03/14/25 08:10> VTE Device Contraindication: N/A - Device Ordered <MARTHA Lopez Last Filed: 03/14/25 08:10> VTE Drug Contraindication: N/A - Med Ordered <MARTHA Lopez Last Filed: 03/14/25 08:10>
--- NOTE | 2025-03-14 11:38 | MHC.CM.PN ---
PT LIVES WITH DGTER AND HE IS INDEPEDENT HAD NO PREVIOUS SERVICES HAS OWN RIDE HOME DC PLAN HOME N/S
[2025-03-14 14:00] VITALS: BP 102/51; PULSE 55; RESP 18; TEMP 36.9; O2SAT 93
--- NOTE | 2025-03-14 15:01 | HO.PM.IMPN ---
Subjective Subjective Date of Service: 03/14/25 Interval History: Seen and examined Follow-up for medical consultation, small-bowel obstruction Abdominal pain improving, had small bowel movement Review of Systems Review of Systems: Yes all other systems are reviewed and are negative Constitutional Constitutional: Denies chills and Denies fever(s) Physical Exam Vital Signs: Vital Signs: Last Vital Signs Temp 98.5 F 03/14/25 14:00 Pulse 55 03/14/25 14:00 Resp 18 03/14/25 14:00 BP 102/51 L 03/14/25 14:00 Pulse Ox 93 03/14/25 14:00 O2 Del Method Room Air 03/14/25 14:00 BMI result Body Mass Index 23.3 Const: General: cooperative, comfortable, alert and awake Nutritional Appearance: average body habitus Orientation/consciousness: patient oriented x3 Resp: Effort & Inspection: normal respiratory effort, able to speak in complete sentences, no respiratory distress and no use of accessory muscles GI: Inspection: No distended Skin: Other: lue wrapped in c/d/i dressing Neuro: General: patient oriented x3 Objective Data Active Medications Amlodipine Besylate (Amlodipine Besylate 5 Mg Tablet) 5 mg PO BEDTIME [facility]; Protocol Last Admin: 03/13/25 20:30 Dose: 5 mg Documented By: LYSDavid Calcium Carbonate (Calcium Carbonate 750 Mg Tab.Chew) 750 mg PO Q4H PRN PRN Reason: Heartburn Enoxaparin Sodium (Enoxaparin Sodium 40 Mg/0.4 Ml Syringe) 40 mg SUBCUT Q24H [facility] Last Admin: 03/14/25 07:25 Dose: 40 mg Documented By: GURDEEPFAA Gabapentin (Gabapentin 100 Mg Capsule) 100 mg PO BID [facility] Last Admin: 03/14/25 07:26 Dose: 100 mg Documented By: GURDEEPFAA Hydromorphone HCl (Hydromorphone Hcl 0.5 Mg/0.5 Ml Syringe) 0.5 mg IVPUSH Q3H PRN; Protocol PRN Reason: Pain, Severe (Pain Scale 7-10) Acetaminophen (Ofirmev) 1,000 mg in 100 mls @ 400 mls/hr IV Q6H PRN PRN Reason: Pain, Mild (Pain Scale 1-3) Levetiracetam (Levetiracetam 250 Mg Tablet) 250 mg PO BID [facility] Last Admin: 03/14/25 07:26 Dose: 250 mg Documented By: THANH Magnesium Hydroxide (Milk Of Magnesia 30 Ml Oral.Susp) 30 ml PO DAILY PRN PRN Reason: Constipation Melatonin (Melatonin 3 Mg Tablet) 6 mg PO BEDTIME PRN PRN Reason: Insomnia Ondansetron HCl (Ondansetron Hcl 4 Mg/2 Ml Vial) 4 mg IVPUSH QID PRN PRN Reason: Nausea Oxycodone HCl (Oxycodone Hcl Immed Release 5 Mg Tablet) 5 mg PO Q6H PRN PRN Reason: Pain, Moderate(Pain Scale 4-6) Sodium Chloride (0.9 % Sodium Chloride Flush 3 Ml Syringe) 3 ml IVFLUSH QSHIFT [facility] Last Admin: 03/14/25 11:19 Dose: Not Given Documented By: THANH Non-Admin Reason: Previously Administered Trimethoprim/Sulfamethoxazole (Sulfamethox/Trimeth 800/160 Tablet) 1 tab PO BID [facility] Last Admin: 03/14/25 07:26 Dose: 1 tab Documented By: THANH Labs 03/14/25 05:24 03/14/25 05:24 Labs: Laboratory Results - last 24 hr 03/13/25 03/14/25 03:17 05:24 MCV 85.8 MCH 28.6 MCHC 33.3 RDW 13.5 Plt Count 262 MPV 9.8 Immature Gran % (Auto) 0.2 Neut % (Auto) 50.5 Lymph % (Auto) 32.6 [place] % (Auto) 10.1 Eos % (Auto) 6.0 H Baso % (Auto) 0.6 Lymph # (Auto) 1.7 [place] # (Auto) 0.5 Eos # (Auto) 0.3 Baso # (Auto) 0.0 Abs Immat Gran (auto) 0.01 Absolute Neuts (auto) 2.7 Absolute Nucleated RBC 0.000 Nucleated RBC % (auto) 0.0 Anion Gap 8 L Estim Creat Clear Calc 66.9 Estimated GFR > 60 Random Glucose 110 Estimat Average Glucose 123 Hemoglobin A1c % 5.9 Calcium 8.2 L D Assessment and Plan (1) Small bowel obstruction: Status: Acute Plan This is an 89-year-old male with a PMH significant for CAD s/p RCA stenting 10/2023, carotid stenosis s/p bilateral endarterectomies, prostate cancer s/p radiation, rectal cancer s/p resection, bladder neck obstruction, recurrent SBOs, post-operative paroxysmal AFib not on anticoagulation, and TORRES not on CPAP. Initially presented to the ED for gradually worsening abdominal pain since last night. CT of abdomen and pelvis found small bowel obstruction. Hospitalist consult for medical management SBO Denies N/V tolerating clears Plan as per General surgery Left arm abscess with cellulitis s/p I&D 03/07 Diagnosed as outpatient and started on Bactrim - end date 03/17 CAD/HLD Hold aspirin in case patient requires surgery Can resume statin when tolerating diet Paroxysmal AFib Noted during ICU stay in 12/19/2023 Not on anticoagulation or rate control med Seizure disorder Continue Keppra HTN continue amlodipine TORRES Not on CPAP Diet-controlled type 2 diabetes Patient says he does not have diabetes Check HbA1c 5.9 - borderline, no current management required. outpatient follow up with PCP Thank you for allowing us to participate this patient. We will follow along with you Quality Stroke Does the patient have a stroke diagnosis?: No VTE Prior VTE?: No VTE Risk Level:: Surgical - moderate VTE Device Contraindication: N/A - Device Ordered VTE Drug Contraindication: N/A - Med Ordered
--- NOTE | 2025-03-14 16:43 | HO.WOUND ---
Wound Consult: Initial 89yr old? admitted to [facility] on 03/13/25- See progress notes and H&P for detailed history.? Wound consult placed for Left Forearm.? Patient agreeable to assessment and photo documentation.? Patient has known MRSA infection - dressing removed and no drainage noted - the site is noted for some swelling and erythema but per the patient and family at bedside the site is significantly improved. There is not drainage and no flutuance noted under the scab. Recommend continue moist wound healing with xeroform and Left arm elevation to aid in swelling reduction. Recommendations: 1. Left Forearm - Cleanse with Ns moist gauze pat dry. Apply xeroform to scabbed area cover with dry gauze, and wrap. Change every day. Re-consult wound care Nurse for wound deterioration or wound changes.
[2025-03-14 21:10] VITALS: BP 136/64; PULSE 65; RESP 16; TEMP 37.1; O2SAT 95
[2025-03-14] MEDS: amLODIPine Besylate 5 MG TABLET PO (22:10)
[2025-03-14] MEDS: 0.9 % Sodium Chloride Flush 3 ML SYRINGE IVFLUSH (22:11)
[2025-03-15 03:05] VITALS: BP 102/65; PULSE 61; RESP 20; TEMP 36.1; O2SAT 97
[2025-03-15] MEDS: 0.9 % Sodium Chloride Flush 3 ML SYRINGE IVFLUSH ×3 (09:11→20:02)
[2025-03-15] MEDS: Enoxaparin Sodium 40 MG/0.4 ML SYRINGE SUBCUT (09:11)
[2025-03-15] MEDS: Gabapentin 100 MG CAPSULE PO (09:12)
[2025-03-15] MEDS: Sulfamethox/Trimeth 800/160 TABLET 1 TAB PO ×2 (09:12→20:08)
[2025-03-15] MEDS: levETIRAcetam 250 MG TABLET PO ×2 (09:12→19:59)
--- NOTE | 2025-03-15 10:18 | P.PNGS_ITS ---
Subjective Subjective Date of Service: 03/15/25 Interval history: He states he feels okay Minimal abdominal pain Tolerating clear liquids No nausea or vomiting Physical Exam 2 Vital Signs: Vital Signs: Last Vital Signs Temp 97 F 03/15/25 03:05 Pulse 61 03/15/25 03:05 Resp 20 03/15/25 03:05 BP 102/65 03/15/25 03:05 Pulse Ox 97 03/15/25 03:05 O2 Del Method Room Air 03/15/25 03:05 BMI result Body Mass Index 23.3 Const: General: comfortable and no acute distress Resp: Effort & Inspection: normal respiratory effort Cardio: Rate: regular rate GI: Palpation (GI): Soft to palpation, not firm and no guarding Objective Data Active Medications Amlodipine Besylate (Amlodipine Besylate 5 Mg Tablet) 5 mg PO BEDTIME [facility]; Protocol Last Admin: 03/14/25 22:10 Dose: 5 mg Documented By: LEXX Calcium Carbonate (Calcium Carbonate 750 Mg Tab.Chew) 750 mg PO Q4H PRN PRN Reason: Heartburn Enoxaparin Sodium (Enoxaparin Sodium 40 Mg/0.4 Ml Syringe) 40 mg SUBCUT Q24H [facility] Last Admin: 03/15/25 09:11 Dose: 40 mg Documented By: ALCON Gabapentin (Gabapentin 100 Mg Capsule) 100 mg PO BID [facility] Last Admin: 03/15/25 09:12 Dose: 100 mg Documented By: ALCON Hydromorphone HCl (Hydromorphone Hcl 0.5 Mg/0.5 Ml Syringe) 0.5 mg IVPUSH Q3H PRN; Protocol PRN Reason: Pain, Severe (Pain Scale 7-10) Acetaminophen (Ofirmev) 1,000 mg in 100 mls @ 400 mls/hr IV Q6H PRN PRN Reason: Pain, Mild (Pain Scale 1-3) Levetiracetam (Levetiracetam 250 Mg Tablet) 250 mg PO BID [facility] Last Admin: 03/15/25 09:12 Dose: 250 mg Documented By: ALCON Magnesium Hydroxide (Milk Of Magnesia 30 Ml Oral.Susp) 30 ml PO DAILY PRN PRN Reason: Constipation Melatonin (Melatonin 3 Mg Tablet) 6 mg PO BEDTIME PRN PRN Reason: Insomnia Ondansetron HCl (Ondansetron Hcl 4 Mg/2 Ml Vial) 4 mg IVPUSH QID PRN PRN Reason: Nausea Oxycodone HCl (Oxycodone Hcl Immed Release 5 Mg Tablet) 5 mg PO Q6H PRN PRN Reason: Pain, Moderate(Pain Scale 4-6) Sodium Chloride (0.9 % Sodium Chloride Flush 3 Ml Syringe) 3 ml IVFLUSH QSHIFT [facility] Last Admin: 03/15/25 09:11 Dose: 3 ml Documented By: ALCON Trimethoprim/Sulfamethoxazole (Sulfamethox/Trimeth 800/160 Tablet) 1 tab PO BID [facility] Stop: 03/17/25 23:59 Last Admin: 03/15/25 09:12 Dose: 1 tab Documented By: ALCON Labs 03/14/25 05:24 03/14/25 05:24 Procedures Date of Service Date of Service: 03/15/25 Progress Note: A&P Assessment and plan (1) Small bowel obstruction: Status: Acute Assessment and Plan: Symptoms much improved He has multiple medical problems Tolerating clear liquids We will try on full liquids today Abdomen is soft and benign Encouraged to get out of bed Time Spent With Patient Time: Total time managing care of this patient today ____ minutes. Quality Stroke Does the patient have a stroke diagnosis?: No VTE Prior VTE?: No VTE Risk Level:: Surgical - moderate VTE Device Contraindication: N/A - Device Ordered VTE Drug Contraindication: N/A - Med Ordered
[2025-03-15 13:51] VITALS: BP 105/52; PULSE 59; RESP 16; TEMP 36.1; O2SAT 95
--- NOTE | 2025-03-15 14:29 | P.PNIM_ITS ---
Subjective Subjective Date of Service: 03/15/25 Interval History: Seen and examined this morning Follow-up for medical consultation, small-bowel obstruction Abdominal pain continues to improve, small bowel movement No overnight events. Review of Systems Review of Systems: Yes all other systems are reviewed and are negative Constitutional Constitutional: Denies chills and Denies fever(s) Cardiovascular Cardiovascular: Denies chest pain, Denies palpitations and Denies dyspnea Respiratory Respiratory: Denies cough and Denies dyspnea Endocrine Endocrine: Denies palpitations Physical Exam 2 Vital Signs: Vital Signs: Last Vital Signs Temp 96.9 F 03/15/25 13:51 Pulse 59 03/15/25 13:51 Resp 16 03/15/25 13:51 BP 105/52 L 03/15/25 13:51 Pulse Ox 95 03/15/25 13:51 O2 Del Method Room Air 03/15/25 13:51 BMI result Body Mass Index 23.3 Const: General: cooperative, comfortable, alert and awake Nutritional Appearance: average body habitus Orientation/consciousness: patient oriented x3 Resp: Effort & Inspection: normal respiratory effort, able to speak in complete sentences, no respiratory distress and no use of accessory muscles GI: Inspection: No distended Skin: Other: lue wrapped in c/d/i dressing Neuro: General: patient oriented x3 Objective Data Active Medications Amlodipine Besylate (Amlodipine Besylate 5 Mg Tablet) 5 mg PO BEDTIME [facility]; Protocol Last Admin: 03/14/25 22:10 Dose: 5 mg Documented By: LEXX Calcium Carbonate (Calcium Carbonate 750 Mg Tab.Chew) 750 mg PO Q4H PRN PRN Reason: Heartburn Enoxaparin Sodium (Enoxaparin Sodium 40 Mg/0.4 Ml Syringe) 40 mg SUBCUT Q24H [facility] Last Admin: 03/15/25 09:11 Dose: 40 mg Documented By: ALCON Gabapentin (Gabapentin 100 Mg Capsule) 100 mg PO BID [facility] Last Admin: 03/15/25 09:12 Dose: 100 mg Documented By: ALCON Hydromorphone HCl (Hydromorphone Hcl 0.5 Mg/0.5 Ml Syringe) 0.5 mg IVPUSH Q3H PRN; Protocol PRN Reason: Pain, Severe (Pain Scale 7-10) Acetaminophen (Ofirmev) 1,000 mg in 100 mls @ 400 mls/hr IV Q6H PRN PRN Reason: Pain, Mild (Pain Scale 1-3) Levetiracetam (Levetiracetam 250 Mg Tablet) 250 mg PO BID [facility] Last Admin: 03/15/25 09:12 Dose: 250 mg Documented By: ALCON Magnesium Hydroxide (Milk Of Magnesia 30 Ml Oral.Susp) 30 ml PO DAILY PRN PRN Reason: Constipation Melatonin (Melatonin 3 Mg Tablet) 6 mg PO BEDTIME PRN PRN Reason: Insomnia Ondansetron HCl (Ondansetron Hcl 4 Mg/2 Ml Vial) 4 mg IVPUSH QID PRN PRN Reason: Nausea Oxycodone HCl (Oxycodone Hcl Immed Release 5 Mg Tablet) 5 mg PO Q6H PRN PRN Reason: Pain, Moderate(Pain Scale 4-6) Sodium Chloride (0.9 % Sodium Chloride Flush 3 Ml Syringe) 3 ml IVFLUSH QSHIFT [facility] Last Admin: 03/15/25 09:11 Dose: 3 ml Documented By: ALCON Trimethoprim/Sulfamethoxazole (Sulfamethox/Trimeth 800/160 Tablet) 1 tab PO BID [facility] Stop: 03/17/25 23:59 Last Admin: 03/15/25 09:12 Dose: 1 tab Documented By: ALCON Labs 03/14/25 05:24 03/14/25 05:24 Assessment and Plan (1) Small bowel obstruction: Status: Acute Plan This is an 89-year-old male with a PMH significant for CAD s/p RCA stenting 10/2023, carotid stenosis s/p bilateral endarterectomies, prostate cancer s/p radiation, rectal cancer s/p resection, bladder neck obstruction, recurrent SBOs, post-operative paroxysmal AFib not on anticoagulation, and TORRES not on CPAP. Initially presented to the ED for gradually worsening abdominal pain since last night. CT of abdomen and pelvis found small bowel obstruction. Hospitalist consult for medical management SBO Denies N/V tolerating clears Plan as per General surgery Left arm abscess with cellulitis s/p I&D 03/07 Diagnosed as outpatient and started on Bactrim - end date 03/17 CAD/HLD Hold aspirin in case patient requires surgery Can resume statin when tolerating diet Paroxysmal AFib Noted during ICU stay in 12/19/2023 Not on anticoagulation or rate control med Seizure disorder Continue Keppra HTN bp soft hold amlodipine for now TORRES Not on CPAP Diet-controlled type 2 diabetes Patient says he does not have diabetes Check HbA1c 5.9 - borderline, no current management required. outpatient follow up with PCP Thank you for allowing us to participate this patient. We will follow along with you Quality Stroke Does the patient have a stroke diagnosis?: No VTE Prior VTE?: No VTE Risk Level:: Surgical - moderate VTE Device Contraindication: N/A - Device Ordered VTE Drug Contraindication: N/A - Med Ordered
[2025-03-15 15:06] VITALS: BP 114/58; PULSE 55; RESP 16; TEMP 36.1; O2SAT 100
[2025-03-15 19:10] VITALS: BP 118/57; PULSE 73; RESP 15; TEMP 36.2; O2SAT 96
[2025-03-16 03:20] VITALS: BP 96/49; PULSE 101; RESP 18; TEMP 36.1; O2SAT 93
[2025-03-16 07:06] VITALS: BP 100/55; PULSE 64; RESP 16; TEMP 36.3; O2SAT 95
[2025-03-16] MEDS: Enoxaparin Sodium 40 MG/0.4 ML SYRINGE SUBCUT (08:29)
[2025-03-16] MEDS: levETIRAcetam 250 MG TABLET PO ×2 (08:29→20:40)
[2025-03-16] MEDS: Gabapentin 100 MG CAPSULE PO ×2 (08:30→20:40)
[2025-03-16] MEDS: Sulfamethox/Trimeth 800/160 TABLET 1 TAB PO ×2 (08:30→20:40)
[2025-03-16] MEDS: 0.9 % Sodium Chloride Flush 3 ML SYRINGE IVFLUSH ×3 (08:36→20:40)
--- NOTE | 2025-03-16 09:21 | PM.PNGS ---
Subjective Subjective Date of Service: 03/16/25 Interval history: Tolerating full liquids Denies nausea or vomiting Passing flatus Denies abdominal pain Physical Exam Vital Signs: Vital Signs: Last Vital Signs Temp 97.3 F 03/16/25 07:06 Pulse 64 03/16/25 07:06 Resp 16 03/16/25 07:06 BP 100/55 L 03/16/25 07:06 Pulse Ox 95 03/16/25 07:06 O2 Del Method Room Air 03/16/25 07:06 BMI result Body Mass Index 23.3 Const: General: comfortable and no acute distress Resp: Effort & Inspection: normal respiratory effort Cardio: Rate: regular rate GI: Palpation (GI): Soft to palpation, not firm, nontender and no guarding Objective Data Active Medications Amlodipine Besylate (Amlodipine Besylate 5 Mg Tablet) 5 mg PO BEDTIME [facility]; Protocol Last Admin: 03/14/25 22:10 Dose: 5 mg Documented By: LYSDavid Calcium Carbonate (Calcium Carbonate 750 Mg Tab.Chew) 750 mg PO Q4H PRN PRN Reason: Heartburn Enoxaparin Sodium (Enoxaparin Sodium 40 Mg/0.4 Ml Syringe) 40 mg SUBCUT Q24H [facility] Last Admin: 03/16/25 08:29 Dose: 40 mg Documented By: SERGE Gabapentin (Gabapentin 100 Mg Capsule) 100 mg PO BID [facility] Last Admin: 03/16/25 08:30 Dose: 100 mg Documented By: SERGE Hydromorphone HCl (Hydromorphone Hcl 0.5 Mg/0.5 Ml Syringe) 0.5 mg IVPUSH Q3H PRN; Protocol PRN Reason: Pain, Severe (Pain Scale 7-10) Levetiracetam (Levetiracetam 250 Mg Tablet) 250 mg PO BID [facility] Last Admin: 03/16/25 08:29 Dose: 250 mg Documented By: SERGE Magnesium Hydroxide (Milk Of Magnesia 30 Ml Oral.Susp) 30 ml PO DAILY PRN PRN Reason: Constipation Melatonin (Melatonin 3 Mg Tablet) 6 mg PO BEDTIME PRN PRN Reason: Insomnia Ondansetron HCl (Ondansetron Hcl 4 Mg/2 Ml Vial) 4 mg IVPUSH QID PRN PRN Reason: Nausea Oxycodone HCl (Oxycodone Hcl Immed Release 5 Mg Tablet) 5 mg PO Q6H PRN PRN Reason: Pain, Moderate(Pain Scale 4-6) Sodium Chloride (0.9 % Sodium Chloride Flush 3 Ml Syringe) 3 ml IVFLUSH QSHIFT [facility] Last Admin: 03/16/25 08:36 Dose: 3 ml Documented By: SERGE Trimethoprim/Sulfamethoxazole (Sulfamethox/Trimeth 800/160 Tablet) 1 tab PO BID [facility] Stop: 03/17/25 23:59 Last Admin: 03/16/25 08:30 Dose: 1 tab Documented By: SERGE Labs 03/14/25 05:24 03/14/25 05:24 Procedures Date of Service Date of Service: 03/16/25 Progress Note: A&P Assessment and plan (1) Partial obstruction of small intestine: Status: Acute Assessment and Plan: Symptoms clinically resolved We will advance to regular diet Abdomen is soft and benign He looks well clinically Possible DC home tomorrow Time Spent With Patient Time: Total time managing care of this patient today ____ minutes. Quality Stroke Does the patient have a stroke diagnosis?: No VTE Prior VTE?: No VTE Risk Level:: Surgical - moderate VTE Device Contraindication: N/A - Device Ordered VTE Drug Contraindication: N/A - Med Ordered
--- NOTE | 2025-03-16 14:01 | HO.PM.IMPN ---
Subjective Subjective Date of Service: 03/16/25 Interval History: Seen and examined this morning Follow-up for medical consultation Abdominal pain improved, tolerating current diet Small bowel movement, formed stool Left arm, no pain Review of Systems Review of Systems: Yes all other systems are reviewed and are negative Constitutional Constitutional: Denies chills and Denies fever(s) Physical Exam Vital Signs: Vital Signs: Last Vital Signs Temp 97.3 F 03/16/25 07:06 Pulse 64 03/16/25 07:06 Resp 16 03/16/25 07:06 BP 100/55 L 03/16/25 07:06 Pulse Ox 95 03/16/25 07:06 O2 Del Method Room Air 03/16/25 07:06 BMI result Body Mass Index 23.3 Const: General: cooperative, comfortable, alert and awake Nutritional Appearance: average body habitus Orientation/consciousness: patient oriented x3 Resp: Effort & Inspection: normal respiratory effort, able to speak in complete sentences, no respiratory distress and no use of accessory muscles GI: Inspection: No distended Skin: Other: left arm - area of previous I&D open but no drainage or fluctuance, non-tender, no surrounding erythema Neuro: General: patient oriented x3 Objective Data Active Medications Amlodipine Besylate (Amlodipine Besylate 5 Mg Tablet) 5 mg PO BEDTIME [facility]; Protocol Last Admin: 03/14/25 22:10 Dose: 5 mg Documented By: LEXX Calcium Carbonate (Calcium Carbonate 750 Mg Tab.Chew) 750 mg PO Q4H PRN PRN Reason: Heartburn Enoxaparin Sodium (Enoxaparin Sodium 40 Mg/0.4 Ml Syringe) 40 mg SUBCUT Q24H [facility] Last Admin: 03/16/25 08:29 Dose: 40 mg Documented By: SERGE Gabapentin (Gabapentin 100 Mg Capsule) 100 mg PO BID [facility] Last Admin: 03/16/25 08:30 Dose: 100 mg Documented By: SERGE Hydromorphone HCl (Hydromorphone Hcl 0.5 Mg/0.5 Ml Syringe) 0.5 mg IVPUSH Q3H PRN; Protocol PRN Reason: Pain, Severe (Pain Scale 7-10) Levetiracetam (Levetiracetam 250 Mg Tablet) 250 mg PO BID [facility] Last Admin: 03/16/25 08:29 Dose: 250 mg Documented By: SERGE Magnesium Hydroxide (Milk Of Magnesia 30 Ml Oral.Susp) 30 ml PO DAILY PRN PRN Reason: Constipation Melatonin (Melatonin 3 Mg Tablet) 6 mg PO BEDTIME PRN PRN Reason: Insomnia Ondansetron HCl (Ondansetron Hcl 4 Mg/2 Ml Vial) 4 mg IVPUSH QID PRN PRN Reason: Nausea Oxycodone HCl (Oxycodone Hcl Immed Release 5 Mg Tablet) 5 mg PO Q6H PRN PRN Reason: Pain, Moderate(Pain Scale 4-6) Sodium Chloride (0.9 % Sodium Chloride Flush 3 Ml Syringe) 3 ml IVFLUSH QSHIFT [facility] Last Admin: 03/16/25 08:36 Dose: 3 ml Documented By: SERGE Trimethoprim/Sulfamethoxazole (Sulfamethox/Trimeth 800/160 Tablet) 1 tab PO BID [facility] Stop: 03/17/25 23:59 Last Admin: 03/16/25 08:30 Dose: 1 tab Documented By: SERGE Labs 03/14/25 05:24 03/14/25 05:24 Assessment and Plan (1) Small bowel obstruction: Status: Acute Plan This is an 89-year-old male with a PMH significant for CAD s/p RCA stenting 10/2023, carotid stenosis s/p bilateral endarterectomies, prostate cancer s/p radiation, rectal cancer s/p resection, bladder neck obstruction, recurrent SBOs, post-operative paroxysmal AFib not on anticoagulation, and TORRES not on CPAP. Initially presented to the ED for gradually worsening abdominal pain since last night. CT of abdomen and pelvis found small bowel obstruction. Hospitalist consult for medical management SBO Denies N/V tolerating liquids, diet advanced today Plan as per General surgery Left arm abscess with cellulitis healing well s/p I&D 03/07 (outpatient) Diagnosed as outpatient and started on Bactrim - end date 03/17 CAD/HLD Hold aspirin in case patient requires surgery Can resume statin when tolerating diet Paroxysmal AFib Noted during ICU stay in 12/19/2023 Not on anticoagulation or rate control med Seizure disorder Continue Keppra HTN bp soft hold amlodipine for now. can resume if BP consistently above 120 overwise would stop upon discharge and can follow up with PCP for blood pressure monitoring TORRES Not on CPAP Diet-controlled type 2 diabetes Patient says he does not have diabetes Check HbA1c 5.9 - borderline, no current management required. outpatient follow up with PCP Thank you for allowing us to participate in the care of this patient. There are no active medical issues at this time, we will sign off. Feel free to re-consult if any acute medical conditions arise Quality Stroke Does the patient have a stroke diagnosis?: No VTE Prior VTE?: No VTE Risk Level:: Surgical - moderate VTE Device Contraindication: N/A - Device Ordered VTE Drug Contraindication: N/A - Med Ordered
[2025-03-16 15:42] VITALS: BP 117/55; PULSE 66; RESP 16; TEMP 36.5; O2SAT 96
[2025-03-16 19:39] VITALS: BP 148/68; PULSE 69; RESP 18; TEMP 36.8; O2SAT 95
[2025-03-17 03:44] VITALS: BP 117/57; PULSE 60; RESP 16; TEMP 36.3; O2SAT 95
[2025-03-17 07:46] VITALS: BP 102/52; PULSE 57; RESP 16; TEMP 36.2; O2SAT 95
[2025-03-17] MEDS: Sulfamethox/Trimeth 800/160 TABLET 1 TAB PO ×2 (07:56→20:27)
[2025-03-17] MEDS: Lactulose 20 GM/30 ML SOLUTION PO (07:56)
[2025-03-17] MEDS: Gabapentin 100 MG CAPSULE PO ×2 (07:56→20:27)
[2025-03-17] MEDS: Enoxaparin Sodium 40 MG/0.4 ML SYRINGE SUBCUT (07:56)
[2025-03-17] MEDS: 0.9 % Sodium Chloride Flush 3 ML SYRINGE IVFLUSH ×3 (07:56→20:27)
[2025-03-17] MEDS: levETIRAcetam 250 MG TABLET PO ×2 (07:56→20:27)
--- NOTE | 2025-03-17 08:01 | PM.PNGS ---
Subjective Subjective Date of Service: 03/17/25 <Nayeli Prado PA-C - Last Filed: 03/17/25 08:04> 03/17/25 <Marco A Prado MD - Last Filed: 03/17/25 11:03> Interval history: Overall feels improved. Tolerating solid diet without abd pain, nausea/vomiting. Continues to pass flatus but no BM since monday. <Nayeli Prado PA-C - Last Filed: 03/17/25 08:04> Physical Exam Vital Signs: Vital Signs: Last Vital Signs Temp 97.2 F 03/17/25 07:46 Pulse 57 03/17/25 07:46 Resp 16 03/17/25 07:46 BP 102/52 L 03/17/25 07:46 Pulse Ox 95 03/17/25 07:46 O2 Del Method Room Air 03/17/25 07:46 BMI result Body Mass Index 23.3 <Nayeli Prado PA-C - Last Filed: 03/17/25 08:04> Const: General: comfortable, no acute distress and alert <Nayeli Prado PA-C - Last Filed: 03/17/25 08:04> Orientation/consciousness: patient oriented x3 <Nayeli Prado PA-C - Last Filed: 03/17/25 08:04> Resp: Effort & Inspection: normal respiratory effort <Nayeli Prado PA-C - Last Filed: 03/17/25 08:04> GI: Inspection: No distended <Nayeli Prado PA-C - Last Filed: 03/17/25 08:04> Palpation (GI): Soft to palpation, nontender and no guarding <MARTHA Lopez Last Filed: 03/17/25 08:04> Skin: General skin exam: no rashes or lesions noted <MARTHA Lopez Last Filed: 03/17/25 08:04> Neuro: General: patient oriented x3 and moves all extremities <MARTHA Lopez Last Filed: 03/17/25 08:04> Objective Data Active Medications Amlodipine Besylate (Amlodipine Besylate 5 Mg Tablet) 5 mg PO BEDTIME [facility]; Protocol Last Admin: 03/14/25 22:10 Dose: 5 mg Documented By: LEXX Calcium Carbonate (Calcium Carbonate 750 Mg Tab.Chew) 750 mg PO Q4H PRN PRN Reason: Heartburn Enoxaparin Sodium (Enoxaparin Sodium 40 Mg/0.4 Ml Syringe) 40 mg SUBCUT Q24H [facility] Last Admin: 03/17/25 07:56 Dose: 40 mg Documented By: ALEXX Gabapentin (Gabapentin 100 Mg Capsule) 100 mg PO BID [facility] Last Admin: 03/17/25 07:56 Dose: 100 mg Documented By: ALEXX Hydromorphone HCl (Hydromorphone Hcl 0.5 Mg/0.5 Ml Syringe) 0.5 mg IVPUSH Q3H PRN; Protocol PRN Reason: Pain, Severe (Pain Scale 7-10) Lactulose (Lactulose 20 Gm/30 Ml Solution) 20 gm PO DAILY [facility] Last Admin: 03/17/25 07:56 Dose: 20 gm Documented By: ALEXX Levetiracetam (Levetiracetam 250 Mg Tablet) 250 mg PO BID [facility] Last Admin: 03/17/25 07:56 Dose: 250 mg Documented By: ALEXX Magnesium Hydroxide (Milk Of Magnesia 30 Ml Oral.Susp) 30 ml PO DAILY PRN PRN Reason: Constipation Melatonin (Melatonin 3 Mg Tablet) 6 mg PO BEDTIME PRN PRN Reason: Insomnia Ondansetron HCl (Ondansetron Hcl 4 Mg/2 Ml Vial) 4 mg IVPUSH QID PRN PRN Reason: Nausea Oxycodone HCl (Oxycodone Hcl Immed Release 5 Mg Tablet) 5 mg PO Q6H PRN PRN Reason: Pain, Moderate(Pain Scale 4-6) Sodium Chloride (0.9 % Sodium Chloride Flush 3 Ml Syringe) 3 ml IVFLUSH QSHIFT [facility] Last Admin: 03/17/25 07:56 Dose: 3 ml Documented By: ALEXX Trimethoprim/Sulfamethoxazole (Sulfamethox/Trimeth 800/160 Tablet) 1 tab PO BID [facility] Stop: 03/17/25 23:59 Last Admin: 03/17/25 07:56 Dose: 1 tab Documented By: ALEXX <Nayeli Prado PA-C - Last Filed: 03/17/25 08:04> Labs CBC & Chem 7: 03/14/25 05:24 03/14/25 05:24 <Nayeli Prado PA-C - Last Filed: 03/17/25 08:04> Procedures Date of Service Date of Service: 03/17/25 <Nayeli Prado PA-C - Last Filed: 03/17/25 08:04> 03/17/25 <Marco A Prado MD - Last Filed: 03/17/25 11:03> Progress Note: A&P Assessment and plan (1) Partial obstruction of small intestine: Status: Acute <Nayeli Prado PA-C - Last Filed: 03/17/25 08:04> Assessment and Plan: Tolerating diet well No nausea or vomiting Abdomen is soft and benign Passing flatus Clinically doing well He wants to have a bowel movement before going home Otherwise he should be ready to be discharged Seen and examined independently <Marco A Prado MD - Last Filed: 03/17/25 11:03> Assessment and Plan: PSBO resolved. Tolerating solid diet, evidence of GI function with benign abd exam. Will order home lactulose and bowel regimen. Likely home later today. Patient comfortable with plan. <Nayeli Prado PA-C - Last Filed: 03/17/25 08:04> Time Spent With Patient Time: Total time managing care of this patient today ____ minutes. <Nayeli Praod PA-C - Last Filed: 03/17/25 08:04> Quality Stroke Does the patient have a stroke diagnosis?: No <Nayeli Prado PA-C - Last Filed: 03/17/25 08:04> VTE Prior VTE?: No <MARTHA Lopez Last Filed: 03/17/25 08:04> VTE Risk Level:: Surgical - moderate <Nayeli Prado PA-C - Last Filed: 03/17/25 08:04> VTE Device Contraindication: N/A - Device Ordered <Nayeli Prado PA-C - Last Filed: 03/17/25 08:04> VTE Drug Contraindication: N/A - Med Ordered <Nayeli Prado PA-C - Last Filed: 03/17/25 08:04>
[2025-03-17] MEDS: Milk of Magnesia 30 ML ORAL.SUSP PO (09:14)
[2025-03-17] MEDS: HYDROmorphone HCl 0.5 MG/0.5 ML SYRINGE IVPUSH (11:08)
[2025-03-17] MEDS: ondansetron HCL 4 MG/2 ML VIAL IVPUSH (11:09)
--- NOTE | 2025-03-17 15:15 | PM.EVENT ---
Event Note Date of Service: 03/17/25 Event Note: Seen on afternoon rounds Passing flatus Tolerating diet but says he felt bloated earlier He says he would like to stay 1 more day and he does not feel ready to go home today Abdomen remained soft He looks well clinically Time Spent With Patient Time: Total time managing care of this patient today ____ minutes.
[2025-03-17 16:03] VITALS: BP 107/54; PULSE 69; RESP 14; TEMP 36; O2SAT 94
--- NOTE | 2025-03-17 16:14 | MHC.CM.PN ---
pt not medically ready for dc
[2025-03-17] MEDS: Lactulose 20 GM/30 ML SOLUTION 30 GM PO (17:37)
[2025-03-17 19:54] VITALS: BP 157/70; PULSE 69; RESP 14; TEMP 36.1; O2SAT 95
[2025-03-18 03:38] VITALS: BP 131/66; PULSE 68; RESP 18; TEMP 36.6; O2SAT 95
[2025-03-18 07:53] VITALS: BP 119/56; PULSE 54; RESP 16; TEMP 36.7; O2SAT 94
[2025-03-18] MEDS: 0.9 % Sodium Chloride Flush 3 ML SYRINGE IVFLUSH ×3 (08:23→23:21)
[2025-03-18] MEDS: Gabapentin 100 MG CAPSULE PO (08:23)
[2025-03-18] MEDS: levETIRAcetam 250 MG TABLET PO ×2 (08:23→20:17)
[2025-03-18] MEDS: Enoxaparin Sodium 40 MG/0.4 ML SYRINGE SUBCUT (08:23)
[2025-03-18 09:03] VITALS: BP 125/58; RESP 18; O2SAT 96
--- NOTE | 2025-03-18 09:05 | P.PNGS_ITS ---
Subjective Subjective Date of Service: 03/18/25 <Nayeli Prado PA-C - Last Filed: 03/18/25 09:12> 03/18/25 <Marco A Prado MD - Last Filed: 03/18/25 10:18> Interval history: C/o dizziness this morning. Had multiple loose stools overnight. Not much oral intake yesterday. Denies chest pain, palpations, shortness of breath. < Nayeli Prado PA-C - Last Filed: 03/18/25 09:12> Physical Exam 2 Vital Signs: Vital Signs: Last Vital Signs Temp 98.1 F 03/18/25 07:53 Pulse 54 03/18/25 07:53 Resp 18 03/18/25 09:03 BP 125/58 L 03/18/25 09:03 Pulse Ox 96 03/18/25 09:03 O2 Del Method Room Air 03/18/25 09:03 BMI result Body Mass Index 23.3 <MARTHA Lopez Last Filed: 03/18/25 09:12> Const: General: comfortable, no acute distress and alert <Nayeli Prado PA-C - Last Filed: 03/18/25 09:12> Orientation/consciousness: patient oriented x3 <MARTHA Lopez Last Filed: 03/18/25 09:12> Resp: Effort & Inspection: normal respiratory effort <MARTHA Lopez Last Filed: 03/18/25 09:12> GI: Inspection: No distended <MARTHA Lopez Last Filed: 03/18/25 09:12> Palpation (GI): Soft to palpation, Tenderness to palpation present (GI) (very mild upper abd tenderness) and no guarding <MARTHA Lopez Last Filed: 03/18/25 09:12> Skin: General skin exam: no rashes or lesions noted <MARTHA Lopez Last Filed: 03/18/25 09:12> Neuro: General: patient oriented x3 and moves all extremities <MARTHA Lopez Last Filed: 03/18/25 09:12> Objective Data Active Medications Acetaminophen (Acetaminophen 325 Mg Tablet) 650 mg PO Q6H PRN PRN Reason: Pain, Mild 1-3,fever,headache Amlodipine Besylate (Amlodipine Besylate 5 Mg Tablet) 5 mg PO BEDTIME [facility]; Protocol Last Admin: 03/14/25 22:10 Dose: 5 mg Documented By: LEXX Calcium Carbonate (Calcium Carbonate 750 Mg Tab.Chew) 750 mg PO Q4H PRN PRN Reason: Heartburn Docusate Sodium (Docusate Sodium 100 Mg Capsule) 100 mg PO BID [facility] Last Admin: 03/18/25 08:25 Dose: Not Given Documented By: ALEXX Non-Admin Reason: loose stools Enoxaparin Sodium (Enoxaparin Sodium 40 Mg/0.4 Ml Syringe) 40 mg SUBCUT Q24H [facility] Last Admin: 03/18/25 08:23 Dose: 40 mg Documented By: ALEXX Gabapentin (Gabapentin 100 Mg Capsule) 100 mg PO BID [facility] Last Admin: 03/18/25 08:23 Dose: 100 mg Documented By: ALEXX Hydromorphone HCl (Hydromorphone Hcl 0.5 Mg/0.5 Ml Syringe) 0.5 mg IVPUSH Q3H PRN; Protocol PRN Reason: Pain, Severe (Pain Scale 7-10) Last Admin: 03/17/25 11:08 Dose: 0.5 mg Documented By: ALEXX Lactulose (Lactulose 20 Gm/30 Ml Solution) 20 gm PO DAILY [facility] Last Admin: 03/18/25 08:24 Dose: Not Given Documented By: ALEXX Non-Admin Reason: loose stools Levetiracetam (Levetiracetam 250 Mg Tablet) 250 mg PO BID [facility] Last Admin: 03/18/25 08:23 Dose: 250 mg Documented By: ALEXX Magnesium Hydroxide (Milk Of Magnesia 30 Ml Oral.Susp) 30 ml PO DAILY [facility] Last Admin: 03/18/25 08:24 Dose: Not Given Documented By: ALEXX Non-Admin Reason: loose stools Melatonin (Melatonin 3 Mg Tablet) 6 mg PO BEDTIME PRN PRN Reason: Insomnia Ondansetron HCl (Ondansetron Hcl 4 Mg/2 Ml Vial) 4 mg IVPUSH QID PRN PRN Reason: Nausea Last Admin: 03/17/25 11:09 Dose: 4 mg Documented By: ALEXX Oxycodone HCl (Oxycodone Hcl Immed Release 5 Mg Tablet) 5 mg PO Q6H PRN PRN Reason: Pain, Moderate(Pain Scale 4-6) Sodium Chloride (0.9 % Sodium Chloride Flush 3 Ml Syringe) 3 ml IVFLUSH QSHIFT [facility] Last Admin: 03/18/25 08:23 Dose: 3 ml Documented By: ALEXX <Nayeli Prado PA-C - Last Filed: 03/18/25 09:12> Labs CBC & Chem 7: 03/14/25 05:24 03/14/25 05:24 <Nayeli Prado PA-C - Last Filed: 03/18/25 09:12> Procedures Date of Service Date of Service: 03/18/25 <Nayeli Prado PA-C - Last Filed: 03/18/25 09:12> 03/18/25 <Marco A Prado MD - Last Filed: 03/18/25 10:18> Progress Note: A&P Assessment and plan (1) Partial obstruction of small intestine: Status: Acute <Nayeli Prado PA-C - Last Filed: 03/18/25 09:12> Assessment and Plan: States he feels well today Tolerating diet Describes watery stools Says he was dizzy earlier Abdomen is soft and benign Reassess later on and possible discharge Seen and examined independently <Marco A Prado MD - Last Filed: 03/18/25 10:18> Assessment and Plan: Had increasing pain yesterday which resolved. Did not have much oral intake yesterday due to this. Multiple loose stools overnight. C/o dizziness this morning and was unsteady with ambulating. Will obtain AM BMP. PT consult. Recommended pushing water intake. Will reassess later today. <Nayeli Prado PA-C - Last Filed: 03/18/25 09:12> Time Spent With Patient Time: Total time managing care of this patient today ____ minutes. <Nayeli Prado PA-C - Last Filed: 03/18/25 09:12> Quality Stroke Does the patient have a stroke diagnosis?: No <MARTHA Lopez Last Filed: 03/18/25 09:12> VTE Prior VTE?: No <Nayeli Prado PA-C - Last Filed: 03/18/25 09:12> VTE Risk Level:: Surgical - moderate <MARTHA Lopez Last Filed: 03/18/25 09:12> VTE Device Contraindication: N/A - Device Ordered <MARTHA Lopez Last Filed: 03/18/25 09:12> VTE Drug Contraindication: N/A - Med Ordered <MARTHA Lopez Last Filed: 03/18/25 09:12>
[2025-03-18 10:33] LABS: Anion Gap 10 (12-20); Blood Urea Nitrogen 14 mg/dL (9-16); Calcium 8.8 mg/dL (8.4-10.2); Carbon Dioxide 25 mmol/L (22-29); Chloride 106 mmol/L (96-108); Creatinine Clr Calc Pharmacy 56.5; Estimated Glomerular Filt Rate > 60; Glucose Fasting 100 mg/dL (60-99); Potassium 4.4 mmol/L (3.3-5.1); Sodium 137 mmol/L (135-145)
--- NOTE | 2025-03-18 14:58 | PM.EVENT ---
Event Note Date of Service: 03/18/25 Event Note: He feels well Tolerating diet However, PT has seen him and had suggested him to stay because of unsteadiness We will re-evaluate tomorrow He understands the plan Patient does not want to go to acute rehab Time Spent With Patient Time: Total time managing care of this patient today ____ minutes.
[2025-03-18 15:35] VITALS: BP 128/58; PULSE 58; RESP 16; TEMP 36.8; O2SAT 96
[2025-03-18 19:42] VITALS: BP 143/64; PULSE 65; RESP 18; TEMP 36.5; O2SAT 94
[2025-03-18] MEDS: Docusate Sodium 100 MG CAPSULE PO (20:17)
[2025-03-19 03:27] VITALS: BP 146/67; PULSE 71; RESP 18; TEMP 36.6; O2SAT 96
[2025-03-19 08:00] VITALS: BP 131/66; PULSE 70; RESP 18; TEMP 36.7; O2SAT 95
--- NOTE | 2025-03-19 08:27 | PM.PNGS ---
Subjective Subjective Date of Service: 03/19/25 <Nayeli Prado PA-C - Last Filed: 03/19/25 08:29> 03/19/25 <Marco A Prado MD - Last Filed: 03/19/25 10:07> Interval history: Feels well this morning. Denies abd pain. tolerating diet. Passing flatus. Awaiting PT reassessment. <Nayeli Prado PA-C - Last Filed: 03/19/25 08:29> Physical Exam Vital Signs: Vital Signs: Last Vital Signs Temp 98.1 F 03/19/25 08:00 Pulse 70 03/19/25 08:00 Resp 18 03/19/25 08:00 BP 131/66 03/19/25 08:00 Pulse Ox 95 03/19/25 08:00 O2 Del Method Room Air 03/19/25 08:00 BMI result Body Mass Index 23.3 <Nayeli Prado PA-C - Last Filed: 03/19/25 08:29> Const: Orientation/consciousness: patient oriented x3 <Nayeli Prado PA-C - Last Filed: 03/19/25 08:29> Resp: Effort & Inspection: normal respiratory effort <MARTHA Lopez Last Filed: 03/19/25 08:29> GI: Inspection: No distended <Nayeli Prado PA-C - Last Filed: 03/19/25 08:29> Palpation (GI): Soft to palpation, nontender and no guarding <Nayeli Prado PA-C - Last Filed: 03/19/25 08:29> Skin: General skin exam: no rashes or lesions noted <Nayeli Prado PA-C - Last Filed: 03/19/25 08:29> Neuro: General: patient oriented x3 and moves all extremities <MARTHA Lopez Last Filed: 03/19/25 08:29> Objective Data Active Medications Acetaminophen (Acetaminophen 325 Mg Tablet) 650 mg PO Q6H PRN PRN Reason: Pain, Mild 1-3,fever,headache Amlodipine Besylate (Amlodipine Besylate 5 Mg Tablet) 5 mg PO BEDTIME [facility]; Protocol Last Admin: 03/14/25 22:10 Dose: 5 mg Documented By: LEXX Calcium Carbonate (Calcium Carbonate 750 Mg Tab.Chew) 750 mg PO Q4H PRN PRN Reason: Heartburn Docusate Sodium (Docusate Sodium 100 Mg Capsule) 100 mg PO BID [facility] Last Admin: 03/18/25 20:17 Dose: 100 mg Documented By: DEIDRA Enoxaparin Sodium (Enoxaparin Sodium 40 Mg/0.4 Ml Syringe) 40 mg SUBCUT Q24H [facility] Last Admin: 03/18/25 08:23 Dose: 40 mg Documented By: ALEXX Hydromorphone HCl (Hydromorphone Hcl 0.5 Mg/0.5 Ml Syringe) 0.5 mg IVPUSH Q3H PRN; Protocol PRN Reason: Pain, Severe (Pain Scale 7-10) Last Admin: 03/17/25 11:08 Dose: 0.5 mg Documented By: ALEXX Lactulose (Lactulose 20 Gm/30 Ml Solution) 20 gm PO DAILY [facility] Last Admin: 03/18/25 08:24 Dose: Not Given Documented By: ALEXX Non-Admin Reason: loose stools Levetiracetam (Levetiracetam 250 Mg Tablet) 250 mg PO BID [facility] Last Admin: 03/18/25 20:17 Dose: 250 mg Documented By: DEIDRA Magnesium Hydroxide (Milk Of Magnesia 30 Ml Oral.Susp) 30 ml PO DAILY [facility] Last Admin: 03/18/25 08:24 Dose: Not Given Documented By: ALEXX Non-Admin Reason: loose stools Melatonin (Melatonin 3 Mg Tablet) 6 mg PO BEDTIME PRN PRN Reason: Insomnia Ondansetron HCl (Ondansetron Hcl 4 Mg/2 Ml Vial) 4 mg IVPUSH QID PRN PRN Reason: Nausea Last Admin: 03/17/25 11:09 Dose: 4 mg Documented By: ALEXX Oxycodone HCl (Oxycodone Hcl Immed Release 5 Mg Tablet) 5 mg PO Q6H PRN PRN Reason: Pain, Moderate(Pain Scale 4-6) Sodium Chloride (0.9 % Sodium Chloride Flush 3 Ml Syringe) 3 ml IVFLUSH QSHIFT [facility] Last Admin: 03/18/25 23:21 Dose: 3 ml Documented By: JESUS <Nayeli Prado PA-C - Last Filed: 03/19/25 08:29> Labs CBC & Chem 7: 03/14/25 05:24 03/18/25 09:58 <Nayeli Prado PA-C - Last Filed: 03/19/25 08:29> Labs: Laboratory Results - last 24 hr 03/18/25 09:58 Anion Gap 10 L Estim Creat Clear Calc 56.5 Estimated GFR > 60 Fasting Glucose 100 H Calcium 8.8 D <Nayeli Prado PA-C - Last Filed: 03/19/25 08:29> Procedures Date of Service Date of Service: 03/19/25 <Nayeli Prado PA-C - Last Filed: 03/19/25 08:29> 03/19/25 <Marco A Prado MD - Last Filed: 03/19/25 10:07> Progress Note: A&P Assessment and plan (1) Partial obstruction of small intestine: Status: Acute <Nayeli Prado PA-C - Last Filed: 03/19/25 08:29> Assessment and Plan: Feels well Abdomen is soft Tolerating diet Good GI function Awaiting re-evaluation today as he may go to a short-term rehab facility Seen and examined independently <Marco A Prado MD - Last Filed: 03/19/25 10:07> Assessment and Plan: PSBO resolved. Now tolerating diet with good GI function. Was unstable with ambulating yesterday. PT recommended STR. They will reassess this morning. He is in agreement for STR if they continue to recommend. Likely dc later today to either home with services or STR depending on PT recommendations. patient comfortable with plan. <Nayeli Prado PA-C - Last Filed: 03/19/25 08:29> Time Spent With Patient Time: Total time managing care of this patient today ____ minutes. <Nayeli Prado PA-C - Last Filed: 03/19/25 08:29> Quality Stroke Does the patient have a stroke diagnosis?: No <MARTHA Lopez Last Filed: 03/19/25 08:29> VTE Prior VTE?: No <Nayeli Prado PA-C - Last Filed: 03/19/25 08:29> VTE Risk Level:: Surgical - moderate <Nayeli Prado PA-C - Last Filed: 03/19/25 08:29> VTE Device Contraindication: N/A - Device Ordered <Nayeli Prado PA-C - Last Filed: 03/19/25 08:29> VTE Drug Contraindication: N/A - Med Ordered <Nayeli Prado PA-C - Last Filed: 03/19/25 08:29>
[2025-03-19] MEDS: 0.9 % Sodium Chloride Flush 3 ML SYRINGE IVFLUSH (09:23)
[2025-03-19] MEDS: Enoxaparin Sodium 40 MG/0.4 ML SYRINGE SUBCUT (09:23)
[2025-03-19] MEDS: levETIRAcetam 250 MG TABLET PO (09:24)
[2025-03-19] MEDS: Lactulose 20 GM/30 ML SOLUTION PO (09:24)
[2025-03-19] MEDS: Docusate Sodium 100 MG CAPSULE PO (09:24)
[2025-03-19 11:38] VITALS: BP 126/61; PULSE 66; RESP 18; TEMP 36.4; O2SAT 96
--- NOTE | 2025-03-19 11:54 | P.DS_ITS ---
DS: Providers Provider Date of Service: 03/19/25 Date of admission: 03/13/25 07:40 Date of discharge: 03/19/25 Primary care physician: Pro Nunn MD Attending physician on admission: Simon Randle Consults: 03/13/25 07:44 Consult to Hospitalist Routine Comment: Consulting Provider: [facility] Hospitalists Reason For Exam: Small-bowel obstruction, medical management 03/13/25 11:07 Consult to Wound Care Routine Reason for consultation: left lower arm open area Attending physician on discharge: Marco A Prado DS: Diagnosis Discharge Diagnosis (1) Partial obstruction of small intestine: Status: Acute DS: Summary Hospital Course Hospital Course: HPI AT ADMISSION: Geoffrey Bone is a 89 year old male presenting with complaints of abdominal pain which began last evening. He reports nausea without vomiting. Symptoms are similar to his previous episodes of small-bowel obstruction. He returned to the emergency department when the symptoms did not improve. He denies any fever or chills. This morning he feels slightly improved has been passing some flatus. He continues to have some abdominal distention and pain. CT scan showed small bowel obstruction with dilated small bowel loops measuring up to 4.3 cm in width and a transition point in the right lower quadrant. HOSPITAL COURSE: He was admitted to the surgical service for further treatment of the SBO. He felt slightly improved with IV hydration and therefore nonoperative measures were continued. Hospitalist consult was obtained for management of his medical comorbidities. He had gradual improvement of his symptoms and he began to pass flatus. His diet was slowly advanced as tolerated. Bowel regimen was initiated and he had multiple bowel movements. He was medically ready for discharge however he complained of dizziness and was unsteady on his feet with ambulation. VSS. He was alert and oriented x3. Labs were ordered which showed slight increase in Cr likely due to poor water intake. PO water intake was encouraged. His symptoms improved and then resolved. PT was consulted for disposition planning and they recommended STR. He was kept o vernight for observation. He also reported receiving gabapentin which he does not normally take at home. This was discontinued. The following day he was reassessed by PT and was more steady and was demonstrated safe mobility and home with resumption of his PT services was recommended. On the day of discharge, he was tolerating a solid diet without nausea or vomiting or abd pain. He was passing flatus. His abdomen was benign, soft and nontender. He felt ready for discharge. He was discharged to home on 03/19/25 in stable condition with PT services. He is to follow up with his PCP. Status at Discharge Functional status at discharge: uses cane/walker Overall status at discharge: patient is progressing back to baseline Time Attestation Discharge Coordination Time (in mins): 40 Quality: Safe Use of Opioids Does Pt have an Active Cancer Diagnosis on the Problem List?: No Quality: Stroke Does the patient have a stroke diagnosis?: No Physical Exam Vital Signs: Vital Signs: Last Vital Signs Temp 97.5 F 03/19/25 11:38 Pulse 66 03/19/25 11:38 Resp 18 03/19/25 11:38 BP 126/61 03/19/25 11:38 Pulse Ox 96 03/19/25 11:38 O2 Del Method Room Air 03/19/25 11:38 BMI result Body Mass Index 23.3 Const: General: comfortable, no acute distress and alert Orientation/consciousness: patient oriented x3 Resp: Effort & Inspection: normal respiratory effort GI: Inspection: No distended Palpation (GI): Soft to palpation, nontender and no guarding Skin: General skin exam: no rashes or lesions noted Neuro: General: patient oriented x3 and moves all extremities DS: Data Data Completed and Pending Completed studies during hospitalization [Text1]: Procedures Dilation of Bladder Neck, Via Natural or Artificial Opening Endoscopic (04/01/24) Drainage of Bladder with Drainage Device, Via Natural or Artificial Opening Endoscopic (04/01/24) Extirpation of Matter from Left External Carotid Artery, Open Approach (12/02/23) Extirpation of Matter from Right Internal Carotid Artery, Open Approach (04/01/24) Extirpation of Matter from Right Neck Subcutaneous Tissue and Fascia, Open Approach (04/01/24) Insertion of Infusion Device into Superior Vena Cava, Percutaneous Approach (08/27/20) Supplement Left Internal Carotid Artery with Synthetic Substitute, Open Approach (12/02/23) Supplement Right Common Carotid Artery with Synthetic Substitute, Open Approach (04/01/24) Ultrasonography of Superior Vena Cava, Guidance (08/27/20) Discharge Plan Discharge Anticipated Discharge Date/Time: 03/16/25 11:30 Patient Disposition: Home Health Service Discharge Diagnosis: PSBO Referrals: [facility] [Other] - 1 Week Po,Pro Adame MD [Primary Care Provider] - 1 Week Discharge Medications: Continued levetiracetam 250 mg tablet 250 mg PO BID 90 Days Qty: 180 0RF rosuvastatin 10 mg tablet 10 mg PO DAILY Qty: 90 3RF (DME) Walker See Rx Instructions .Route .MEDSUPPLY Qty: 1 0RF Rx Instructions: As directed lactulose 10 gram/15 mL solution 30 ml PO DAILY PRN (Reason: Constipation) Qty: 946 0RF aspirin 81 mg Tablet,Delayed Release (Dr/Ec) 81 mg PO DAILY amlodipine 2.5 mg tablet 5 mg PO BEDTIME (DME) blood pressure monitor Kit See Rx Instructions .Route Qty: 1 0RF Rx Instructions: As directed ICD: I95.9 MEDIUM ADULT SIZE CUFF PATIENT ON MEDICATIONS FOR HTN, CURRENTLY HAS LOW BP READINGS. Discontinued sulfamethoxazole-trimethoprim 800-160 mg tablet 1 tab PO BID Discharge Orders: Discharge Order (Routine); Ordered 03/19/25 Ordered By: Nayeli Prado Diet: Advance to usual diet Activity on Discharge: As tolerated Stand Alone Forms: Patient Portal Discharge page Print Language: [place] Activity Restrictions/Additional Instructions: Follow up with your PCP. Call Your Doctor If: ? ? -Your temperature exceeds 101? F? ? ? -You experience excessive pain or swelling ? ? -You have an unexpected reaction to medication ? ? -You experience continued vomiting/nausea Care Plan Goals: Return to baseline health and resume normal activities. Health Concerns: PSBO PAF hx of CVA Plan of Treatment: Supportive with bowel rest, fluids F/u with PCP Assessment: Improved Patient Instructions: Low Fiber Diet (DC)
--- NOTE | 2025-03-19 12:06 | W.MHC.F2F ---
Service Date Service Date: 03/19/25 Encounter Date of encounter: 03/19/25 Reasons for Services Signs and symptoms assessed: oral intake, abdominal pain, GI function, ambulation Reason for physical therapy: home safety and mobility and therapeutic exercises Homebound: Leaving the home is medically contraindicated at this time without the asist of a device and/or another person due th the listed conditions above and below. Reason homebound: leg weakness and weakness related to hospital stay Certification: Based on the above findings, I certify that this patient is confined to the home and needs intermittent fci care, physical therapy and/or speech therapy, or continues to need occupational therapy. The patient is under my care, and I have initiated the establishment of the plan of care. The patient will be followed by a physician who will periodically review the plan of care. Time Spent With Patient Time: Total time managing care of this patient today ____ minutes.
== END 2025-03-19 12:10 | disposition home health service (06) | DRG 389 ==
LOC: HO.ED 05:46 → HO.EDOVER 07:47 → HO.S3 08:40
PROVIDERS: Physician Assistant Medical; Physician Assistant Surgical; Admitting Provider Surgery; Emergency Provider Emergency Medicine; PCP Internal Medicine; Visit Provider Surgery
DX: K56.600 Partial intestinal obstruction, unspecified as to cause (principal); L02.414 Cutaneous abscess of left upper limb; L03.114 Cellulitis of left upper limb; G40.909 Epilepsy, unspecified, not intractable, without status epilepticus; G47.33 Obstructive sleep apnea (adult) (pediatric); I48.0 Paroxysmal atrial fibrillation; I10 Essential (primary) hypertension; E78.5 Hyperlipidemia, unspecified; I25.10 Atherosclerotic heart disease of native coronary artery without angina pectoris; Z99.3 Dependence on wheelchair; Z95.5 Presence of coronary angioplasty implant and graft; Z87.891 Personal history of nicotine dependence; Z79.82 Long term (current) use of aspirin; Z79.899 Other long term (current) drug therapy
CPT/HCPCS: 36415; 74176; 80048; 80076; 81003; 83036; 83690; 83880; 84484; 85025; 93005; 97116; 97162; 99285; J1171; J1650; J1885; J2270; J2405

== ENCOUNTER → 2025-03-13 02:30 | Outpatient (BNV) | payer MEDICARE, OTHER, SELFPAY | PROVIDERS: Admitting Provider Surgery; Emergency Provider Emergency Medicine; Visit Provider Internal Medicine Cardiovascular Disease | DX: R10.9 Unspecified abdominal pain (principal) | CPT/HCPCS: 93010 ==

== ENCOUNTER → 2025-03-13 07:40 | Outpatient (BNV) | payer MEDICARE, OTHER, SELFPAY | PROVIDERS: Admitting Provider Surgery; Emergency Provider Emergency Medicine; PCP Internal Medicine; Visit Provider Physician Assistant Medical | DX: K56.609 Unspecified intestinal obstruction, unspecified as to partial versus complete obstruction (principal) | CPT/HCPCS: 99223; 99232 ==

== ENCOUNTER → 2025-03-13 07:40 | Outpatient (BNV) | payer MEDICARE, OTHER, SELFPAY | PROVIDERS: Admitting Provider Surgery; Emergency Provider Emergency Medicine; Visit Provider Surgery | DX: K56.600 Partial intestinal obstruction, unspecified as to cause (principal) | CPT/HCPCS: 99222; 99232; 99499 ==

== ENCOUNTER 2025-03-25 14:47 | Outpatient (REF) | payer MEDICARE, OTHER, SELFPAY ==
--- NOTE | ~2025-03-25 | XR_ITS ---
CLINICAL HISTORY: S20.212A - Contusion of left front wall of thorax, initial encounter --- Additional Notes or Special Instructions: 89 y o Male patient with c o Left sided chest wall pain after a Fall. 3 view, chest and left ribs Comparison: CR/KY/SR - XR CHEST 1V - 04/04/23 13:50 EDT Findings: There are nondisplaced fractures of the anterolateral aspects of the left 6th and 7th ribs. There are scattered foci of calcific pleural plaque formation. There is no consolidative process or evidence of pneumothorax. IMPRESSION: There are nondisplaced fractures of the anterolateral aspects of the left 6th and 7th ribs. This document has been electronically signed by: Anamaria Vergara MD on 03/25/2025 18:52:14
--- NOTE | ~2025-03-25 | XR_ITS ---
CLINICAL HISTORY: M79.602 - Pain in left arm --- Additional Notes or Special Instructions: 89 y o Mal e patient with c o Left Shoulder upper arm pain after a fall at 2 view left humerus Comparison: None Findings: No fractures or dislocations. There is osteopenia. No significant arthritic change. No radiopaque foreign body. IMPRESSION: 1. No acute bony abnormality. This document has been electronically signed by: Anamaria Vergara MD on 03/25/2025 18:51:38
== END 2025-03-25 14:48 | disposition home or self-care (01) ==
LOC: CF 14:47
PROVIDERS: PCP Internal Medicine; Visit Provider Nurse Practitioner Family
DX: S20.212A Contusion of left front wall of thorax, initial encounter (principal); M79.602 Pain in left arm
CPT/HCPCS: 71101; 73060; 99212

== ENCOUNTER 2025-03-25 14:47 | Outpatient (AMB) | payer MEDICARE, OTHER, SELFPAY ==
--- OUTSIDE RECORDS SUMMARY | 2025-03-25 14:49 | XMS_ITS | Clinical Summary ---
Author Organization [facility] Address [address] [place] [address] Phone Care Team Providers Care Systems Integration Analyst Name Role Phone Pro Nunn MD Primary Care Provider [phone] Allergies Active Allergy Reactions Criticality Noted Date [...] Hypertension Hyperlipidemia TIA (transient ischemic attack) Cancer ([facility] V24, [facility] V28) Social History Tobacco Use Types Packs/Day [...] LAB CHEMISTRY METHOD 10/28/2023 8:29 AM EST [facility] Comment: Cholesterol Risk Factors (NCEP 2004 ATP III update) Desirable: ?<200 mg/dL Borderline Risk: ? 200-239 mg/dL High Risk: ?>239 mg/dL Triglycerides 103 0 - 150 mg/dL LAB CHEMISTRY METHOD 10/28/2023 8:29 AM EST [facility] HDL 34 23 - 92 mg/dL LAB CHEMISTRY METHOD 10/28/2023 8:29 AM [facility] LDL Calculated 25 <100 mg/dL LAB CHEMISTRY METHOD 10/28/2023 8:29 AM [facility] Comment: LDL Cholesterol Risk Factors (NCEP 2004 ATP III update) Desirable for high risk CHD: ??< 100 ??mg/dL Desirable for moderate risk CHD (2 or more risk factors): < 130 ??mg/dL Desirable for low risk CHD (0-1 risk factors): ??< 160 ??mg/dL VLDL Cholesterol David 20.6 mg/dL LAB CHEMISTRY METHOD 10/28/2023 8:29 AM [facility] Blood Venous blood specimen / Unknown Venipuncture / Unknown 10/28/2023 6:39 AM EST 10/28/2023 8:01 AM EST us Roman Wu MD LAB BLOOD ORDERABLES Fi nal Result [facility] [address] [place] [address], [place] [phone] from Last 3 Months or Most Recently Relevant to Health Maintenance Insurance MEDICARE [facility] Advance Directives * Full Code - [...] currently active code status orders. Care Teams Systems Integration Analyst Relationship Specialty Start Date End Date Pro Nunn MD [address] [place] [address] Dr [facility] [place] [address] PCP - General Internal Medicine 10/26/23
--- NOTE | 2025-03-25 16:12 | AM.OFFWIN_ITS ---
Intake Vital Signs 3 03/25/25 16:20 BP 120/80 Blood Pressure Location Rt brachial Position Sitting Pulse 55 Pulse Source Pulse Oximeter Pulse Oximetry (%) 100 Oxygen Delivery Method Room Air Intake Visit Reasons: EP-lt shoulder and chest pain from a fall Intake Note: Patient here for left shoulder and chest discomfort after a fall on monday outside. Patient Tobacco Use Status: Former Tobacco user Allergies diphenhydramine [From Benadryl] Adverse Reaction (Intermediate, Verified 03/25/25 16:20) Hallucinations Do you need a note to return to daycare/school/sports/work: No HPI HPI Comments 2 History of Present Illness0 Details 89 y/o Male patient who presents to the walk in clinic with C/o Left sided chest wall pain and left Shoulder/Upper Arm pain after a Fall on Monday. Denies SOB, wheezing or chest pains. [facility] Medical History (Updated 03/25/25 @ 16:59 by Christine Hensley NP) Left arm pain Chest wall contusion Partial obstruction of small intestine Overweight (BMI 25.0-29.9) CAD (coronary artery disease) Afib CVA (cerebral vascular accident) Self-catheterizes urinary bladder History of trigger finger Arthritis Preoperative cardiovascular examination Symptomatic stenosis of left carotid artery Rectal cancer Bladder neck contracture GERD (gastroesophageal reflux disease) Urinary incontinence Obstructive sleep apnea Coronary artery disease Type 2 diabetes mellitus with hyperglycemia Small bowel obstruction Erectile dysfunction Peripheral vascular disease Prostate cancer Hematuria Constipation BPH (benign prostatic hyperplasia) Prostate cancer Colon cancer Dysuria Hyperlipidemia, unspecified Essential hypertension Surgical History History of left-sided carotid endarterectomy History of coronary artery stent placement History of exploratory laparotomy History of carpal tunnel release History of prostate surgery (~2017) History of bladder surgery (~01/04/18) History of colectomy History of appendectomy Family History Father Pancreatic cancer Mother No problems noted. Brother Liver cancer Social History Household Members: Other Household Members Other:: [facility] Housing: House Are you a primary primary care pediatrician to a significant other at home: No Do you presently have visiting nurse or other home services: No Unable to assess alcohol history related to: Unable to respond Alcohol intake: never Patient Tobacco Use Status: Former Tobacco user Tobacco use type: Cigarette e-Cigarette/Vaping Use: Never Used Second Hand Smoke Exposure: No Advance Directives Date on File: 09/29/20 service: No Current occupational status: retired Cognitive needs: Yes (cane, walker) Hearing needs: Yes (hearing aide) Vision needs: Yes (glasses) Review of Systems Const All systems reviewed & are unremarkable except as noted in HPI and below Physical Exam Vital Signs: Last Vital Signs Pulse 55 03/25/25 16:20 BP 120/80 03/25/25 16:20 Pulse Ox 100 03/25/25 16:20 Oxygen Delivery Method Room Air 03/25/25 16:20 Const General: no acute distress Orientation/consciousness: patient oriented x3 Chest Chest palpation & inspection: normal palpation of entire chest wall, no crepitus and tenderness rib Chest/axillae images: 2 1. TTP. Resp Effort & Inspection: normal respiratory effort and able to speak in complete sentences Auscultation: clear to auscultation bilaterally, no crackles, no rales, no rhonchi and no wheezes Cardio Heart sounds: S1 normal heart sound present and S2 normal heart sound present Neuro General: patient oriented x3 Assessment & Plan Assessment & Plan (1) Chest wall contusion: Code(s): S20.219A - Contusion of unspecified front wall of thorax, initial encounter Qualifiers: Encounter type: initial encounter Laterality: left Qualified Code(s): S20.212A - Contusion of left front wall of thorax, initial encounter Plan: Ordered Xray Chest to r/o Rib Fx. Ice/Hot Ordered Flexeril (2) Left arm pain: Code(s): M79.602 - Pain in left arm Plan: Ordered Xray Chest to r/o Rib Fx. Ice/Hot Ordered Flexeril Orders: Orders 2 XR humerus LT Today M79.602 - Pain in left arm XR ribs LT min 3V w CXR1V Today S20.212A - Contusion of left front wall of thorax, initial encounter Medications: New 2 acetaminophen 1,000 mg (2 x 500 mg) PO Q6H PRN 30 caps 0RF pain M79.602 - Pain in left arm, S20.212A - Contusion of left front wall of thorax, initial encounter cyclobenzaprine 5 mg PO BEDTIME 10 tabs 0RF M79.602 - Pain in left arm, S20.212A - Contusion of left front wall of thorax, initial encounter Coding Level of Care Code Est Pt Level 4 (98219) Diagnoses Contusion of left chest wall, initial encounter S20.A Encounter type: initial encounter Laterality: left Left arm pain M79.602
[2025-03-25 16:20] VITALS: BP 120/80; PULSE 55; O2SAT 100
== END 2025-03-25 17:01 | disposition home or self-care (01) ==
PROVIDERS: PCP Internal Medicine; Visit Provider Nurse Practitioner Family
DX: S20.212A Contusion of left front wall of thorax, initial encounter (principal); M79.602 Pain in left arm

== ENCOUNTER → 2025-03-25 17:40 | Outpatient (BNV) | payer MEDICARE, OTHER, SELFPAY | PROVIDERS: PCP Internal Medicine; Visit Provider Radiology Diagnostic Radiology | DX: S22.42XA Multiple fractures of ribs, left side, initial encounter for closed fracture (principal); M79.602 Pain in left arm | CPT/HCPCS: 71101; 73060 ==

== ENCOUNTER 2025-03-26 13:00 | Outpatient (AMB) | payer MEDICARE, OTHER, SELFPAY ==
--- NOTE | 2025-03-26 13:02 | MHC.OFFVIS ---
Intake Visit Reasons: 6M follow up r/s Intake Note: Patient is present for 6m f/u Urology Medication:NONE Antibiotic Allergy:NONE Blood Thinner:ASPIRIN Tool Inspector Required: No Allergies diphenhydramine [From Benadryl] Adverse Reaction (Intermediate, Verified 03/26/25 13:03) Hallucinations HPI Comments Details: Geoffrey is a pleasant male. He is a patient of Dr. Nunn. He is seen for the following urologic conditions - prostate cancer - bladder neck contraction Six-month follow-up Using coude every 5 days for bladder neck dilatation Occasionally does have issues when does not line up catheter Will expect him to require catheterization for the foreseeable future to maintain bladder emptying and open bladder neck Has not catheterized in a number of weeks Catheterized in office with 14 [place] Slight resistance a bladder neck but able to pass Prostate cancer Treatment with radiation 1999 Radiation cystitis with bladder neck contracture Catheter every 5-6 days keeping bladder neck open PSA 03/19 <0.1, 03/20 <0.1, 08/21 <0.1 Bladder neck stricture Multiple UTIs with persistent incomplete emptying - Enterococcus faecalis Levaquin sensitive Secondary to radiation for prostate cancer in 1999 Bladder neck incision 2018, 12/21 Repeat bladder neck incision September 2020 [facility] Medical History (Updated 03/26/25 @ 13:22 by Jerman Hein MD) Ribs, multiple fractures Left arm pain Chest wall contusion Partial obstruction of small intestine Overweight (BMI 25.0-29.9) CAD (coronary artery disease) Afib CVA (cerebral vascular accident) Self-catheterizes urinary bladder History of trigger finger Arthritis Preoperative cardiovascular examination Symptomatic stenosis of left carotid artery Rectal cancer Bladder neck contracture GERD (gastroesophageal reflux disease) Urinary incontinence Obstructive sleep apnea Coronary artery disease Type 2 diabetes mellitus with hyperglycemia Small bowel obstruction Erectile dysfunction Peripheral vascular disease Prostate cancer Hematuria Constipation BPH (benign prostatic hyperplasia) Prostate cancer Colon cancer Dysuria Hyperlipidemia, unspecified Essential hypertension Surgical History History of left-sided carotid endarterectomy History of coronary artery stent placement History of exploratory laparotomy History of carpal tunnel release History of prostate surgery (~2016) History of bladder surgery (~01/04/18) History of colectomy History of appendectomy Family History Father Pancreatic cancer Mother No problems noted. Brother Liver cancer Social History Household Members: Other Household Members Other:: [facility] Housing: House Are you a primary adult caregiver to a significant other at home: No Do you presently have visiting nurse or other home services: No Unable to assess alcohol history related to: Unable to respond Alcohol intake: never Patient Tobacco Use Status: Former Tobacco user Tobacco use type: Cigarette e-Cigarette/Vaping Use: Never Used Second Hand Smoke Exposure: No Advance Directives Date on File: 09/29/20 service: No Current occupational status: retired Cognitive needs: Yes (cane, walker) Hearing needs: Yes (hearing aide) Vision needs: Yes (glasses) Review of Systems Const Denies chills and Denies fever(s) Card Reports no additional complaints and Denies syncope Resp Denies cough GI Denies abdominal pain and Denies heartburn Reports as per HPI and Denies change in libido Neuro Denies syncope Psych Denies change in libido Endo Denies change in libido Physical Exam Const General: cooperative, healthy appearing, comfortable and no acute distress Orientation/consciousness: patient oriented x3 HEENT Face and sinus: Yes normal facial exam Mouth: moist mucous membranes Neck Neck: Yes normal visual inspection, Yes full ROM and Yes trachea midline Chest Chest palpation & inspection: normal inspection of the chest Resp Effort & Inspection: normal respiratory effort, able to speak in complete sentences and no respiratory distress GI Inspection: Yes normal to inspection Back/Spine/Pelvis Cervical Spine: normal cervical lordosis Thoracic/Lumbar Spine: thoracic and lumbar spine normal to inspection Skin General skin exam: no rashes or lesions noted Neuro General: patient oriented x3, gait normal, tone normal and moves all extremities Extrem General: Yes normal to inspection and Yes capillary refill normal Office Procedures Bladder/Catheter Procedure Details: Catheterized with 14 [place] straight catheterization Clean technique [id number] Bladder Catheter Procedure code (CPT) selection complete Assessment & Plan Assessment & Plan (1) Bladder neck stricture: Comment: status post incision bladder neck contracture with laser, cystoscopy Dr. Hein September 2020 Code(s): N32.0 - Bladder-neck obstruction Category: Medical (2) Prostate cancer: Code(s): C61 - Malignant neoplasm of prostate Category: Medical Plan 1. Radiation Cystitis Regular monitoring every 6 months. No new interventions discussed. 2. Bladder Neck Contracture Attempt catheterization with R14 Coud? catheter. Importance of regular dilatation emphasized. 3. History Of Prostate Cancer Post-Radiation Therapy Manage complications from radiation. No active cancer treatment required. Discussion Notes During the visit, I discussed the current urinary difficulties related to the bladder neck contracture and radiation cystitis. The patient reports challenges with catheterization, which indicates potential worsening of the contracture. We agreed to attempt insertion with an fourteen Y[place]ut Coud? catheter to ensure patency, as preventing closure of the bladder neck stricture is crucial to avoid further complications. The patient understood the necessity of maintaining regular catheterization and accepted the plan. No additional oncological interventions were deemed necessary for the history of prostate cancer at this time. Patient Instructions - Continue using Coud? catheter every 5 days as instructed. - Report any increasing difficulty with catheterization or significant changes in urinary symptoms. - Attend regular check-ups every 6 months for ongoing management. - Seek medical attention if unable to catheterize or if there is a significant increase in blood in the urine. Orders: Orders AMB Bladder/Catheter Procedure Today N32.0 - Bladder-neck obstruction Patient Instructions: This note is constructed using voice recognition software. While every effort has been made to ensure accuracy rn maternity errors may have been included. Imaging studies, laboratory and physical exam results were discussed and reviewed in detail. No major barriers to patient understanding were identified. An opportunity to ask questions regarding the treatment plan was provided. All questions were answered. The patient expressed understanding and agreement with the above treatment plan. The patient is aware they should contact our office by phone for worsening of their current condition or the appearance of new urologic symptoms. Compliance is encouraged with any medications and followup testing that is ordered. It is a privilege to participate in the urologic care of your patient. If you have any questions or concerns regarding treatment for the above conditions, or other urologic issues, please do not hesitate to contact me. The office telephone contact is [phone]. Sincerely, Dr Jerman Hein MD, [facility] - Urology Compassionate Specialist Care for the Genitourinary System Coding Level of Care Code Est Pt Level 4 (40452) Complex EM visit Add On G2211 Diagnoses Bladder neck stricture N32.0 Prostate cancer C61 CPT Codes Bladder/Catheter Procedure - CPT: 30987-[id number] Bladder Catheter ([id number])
--- OUTSIDE RECORDS SUMMARY | 2025-03-26 13:45 | XMS_ITS | Clinical Summary ---
Author Organization Unknown Care Team Providers Care Gate Cutter Name Role Phone PO SILVINO, SUNG Unavailable Unavaila pablo VALADEZ PT, JU Unavailable Unavailable [facility] [employer]NERSH[employer] SPECIALIST, [facility] Unavailable Unavailable Payers Payer Name Policy Type Policy Number Effective Date Expira tion Date MEDICARE.NGS.PDGM [id number] Problems Condition Name Condition Details Condition Category Status Onset Date Resolution Date Last Treatment Date Treating Clinician Comments OTHER PARTIAL INTESTINAL OBSTRUCTION Active 03-22 00:00: 00 TYPE 2 DIABETES W DIABETIC PERIPHERAL ANGIOPATH W/O GANGRENE Active 03-22 00:00: 00 OBSTRUCTIVE SLEEP APNEA (ADULT) (PEDIATRIC) Active 03-22 00:00: 00 ATHSCL HEART DISEASE OF [place] CORONARY ARTERY W/O ANG PCTRS Active 03-22 00:00: 00 UNSPECIFIED ATRIAL FIBRILLATION Active 03-22 00:00: 00 HYPERLIPIDEM IA, UNSPECIFIED Active 03-22 00:00: 00 BENIGN PROSTATIC HYPERPLASIA WITHOUT LOWER URINRY TRACT SYMP Active 03-22 00:00: 00 UNSPECIFIED OSTEOARTHRIT IS, UNSPECIFIED SITE Active 03-22 00:00: 00 GASTRO-ESOPH AGEAL REFLUX DISEASE WITHOUT ESOPHAGITIS Active 03-22 00:00: 00 OVERWEIGHT Active 03-22 00:00: 00 MALE ERECTILE DYSFUNCTION, UNSPECIFIED Active 03-22 00:00: 00 CONSTIPATION , UNSPECIFIED Active 03-22 00:00: 00 PRSNL HX OF TIA (TIA), 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 03-22 00:00: 00 PERSONAL HISTORY OF MALIGNANT NEOPLASM OF PROSTATE Active 03-22 00:00: 00 PERSONAL HISTORY OF MALIGNANT NEOPLASM OF LARGE INTESTINE Active 03-22 00:00: 00 PERSONAL HISTORY OF NICOTINE DEPENDENCE Active 03-22 00:00: 00 PRESENCE OF CORONARY ANGIOPLASTY IMPLANT AND GRAFT Active 03-22 00:00: 00 SENIOR LIVING (CURRENT) USE OF ASPIRIN Active 03-22 00:00: 00 Allergies, Adverse Reactions, Alerts Allergy Name Allergy Type Status Severity Reaction(s) Onset Date Inactive Date Treating Clinician Comments NO KNOWN ALLERGIES Propensity to adverse reactions Active 03-22 11:15: 19 Medications Ordered Medication Name Filled Medication Name Start Date Stop Date Current Medication? Ordering Clinician Indication Dosage Frequency Signature (SIG) Comments Components isosorbide mononitrate ER 30 mg tablet,exte nded release 24 hr 06-13 00:00: 00 02-11 00:00 :00 No [id number] Per instruc tions ONCE DAILY Per instructio ns ONCE DAILY (route: oral) Med Classific ation: Cardiovas cular Therapy Agents tamsulosin 0.4 mg capsule 2019-10 00:00: 00 02-11 00:00 :00 No [id number] Per instruc tions ONCE DAILY Per instructio ns ONCE DAILY (route: oral) Med Classific ation: Genitouri nary Therapy rosuvastati n 10 mg tablet 2019-10 00:00: 00 Yes [id number] CHOLESTEROL 1 tablet DAILY 1 tablet DAILY (route: oral) Med Classific ation: Cardiovas cular Therapy Agents lisinopril 5 mg tablet 06-06 00:00: 00 02-11 00:00 :00 No [id number] Per instruc tions ONCE DAILY Per instructio ns ONCE DAILY (route: oral) Med Classific ation: Cardiovas cular Therapy Agents metoprolol tartrate 25 mg tablet 06-06 00:00: 00 02-11 00:00 :00 No [id number] Per instruc tions TWICE DAILY Per instructio ns TWICE DAILY (route: oral) Med Classific ation: Cardiovas cular Therapy Agents sulfamethox azole 800 mg-trimetho prim 160 mg tablet 2019-10 00:00: 00 02-11 00:00 :00 No [id number] Per instruc tions TWICE DAILY FOR 7 DAYS Per instructio ns TWICE DAILY FOR 7 DAYS (route: oral) Med Classific ation: Anti-Infe ctive Agents amlodipine 2.5 mg tablet 01-28 00:00: 00 Yes [id number] HTN 3 tablet BEDTIME 3 tablet BEDTIME (route: oral) Med Classific ation: Cardiovas cular Therapy Agents aspirin 81 mg tablet,zafar yed release 01-28 00:00: 00 Yes [id number] HEART HEALTH 1 tablet DAILY 1 tablet DAILY (route: oral) Med Classific ation: Hematolog ical Agents docusate sodium 100 mg capsule 01-28 00:00: 00 Yes [id number] CONSTIPATIO N 1 capsule DAILY 1 capsule DAILY (route: oral) Med Classific ation: Gastroint estinal Therapy Agents Keppra 250 mg tablet 01-28 00:00: 00 03-22 00:00 :00 No [id number] SEIZURES 1 tablet 2 TIMES DAILY 1 tablet 2 TIMES DAILY (route: oral) Med Classific ation: Central Nervous System Agents Vital Signs Vital Name Observation Time Observation Value Commen ts Temperature 2025-03-22 10:54:00.000 98.1 [degF] BMI (%) 2025-03-22 10:54:00.000 23 kg/m2 Height 2025-03-22 10:54:00.000 74 [in_us] Pulse 2025-03-22 10:54:00.000 77 /min Respirations 2025-03-22 10:54:00.000 18 /min Weight (lbs) 2025-03-22 10:54:00.000 180 [lb_av] Systolic Blood Pressure 2025-03-22 10:54:00.000 128 mm [Hg] Diastolic Blood Pressure 2025-03-22 10:54:00.000 76 mm [Hg] Plan of Treatment Planned Activity Planned Date Details Comments Future Scheduled Test AGENCY MAY PERFORM A RESUMPTION OF CARE VISIT FOLLOWING ANY HOSPITAL ADMISSION. PT TO EVALUATE, OBSERVE / ASSESS, AND MONITOR, STRATEGIC PARTNERSHIP SPECIALIST TO OBSERVE AND MONITOR, PROVIDE SKILLED THERAPEUTIC INTERVENTION, ACTIVITY, EDUCATION, AND TRAINING TO ADDRESS; [code = AGENCY MAY PERFORM A RESUMPTION OF CARE VISIT FOLLOWING ANY HOSPITAL ADMISSION. PT TO EVALUATE, OBSERVE / ASSESS, AND MONITOR, STRATEGIC PARTNERSHIP SPECIALIST TO OBSERVE AND MONITOR, PROVIDE SKILLED THERAPEUTIC INTERVENTION, ACTIVITY, EDUCATION, AND TRAINING TO ADDRESS;] Future Scheduled Test BED TRANSF ERS (PT/STRATEGIC PARTNERSHIP SPECIALIST) [code = BED TRANSFERS (PT/STRATEGIC PARTNERSHIP SPECIALIST)] Future Scheduled Test SIT TO/FRO M STAND TRANSFERS (PT/STRATEGIC PARTNERSHIP SPECIALIST) [code = SIT TO/FROM STAND TRANSFERS (PT/STRATEGIC PARTNERSHIP SPECIALIST)] Future Scheduled Test PT/STRATEGIC PARTNERSHIP SPECIALIST TO PROVIDE GAIT TRAINING FOR IMPROVED MOBILITY AND /OR TO NORMALIZE GAIT PATTERN [code = PT/STRATEGIC PARTNERSHIP SPECIALIST TO PROVIDE GAIT TRAINING FOR IMPROVED MOBILITY AND /OR TO NORMALIZE GAIT PATTERN] Future Scheduled Test PT/STRATEGIC PARTNERSHIP SPECIALIST TO PROVIDE STAIR TRAINING [code = PT/STRATEGIC PARTNERSHIP SPECIALIST TO PROVIDE STAIR TRAINING] Future Scheduled Test NEUROMUSCU LAR RE-EDUCATION / BALANCE / POSTURAL CONTROL (PT) [code = NEUROMUSCULAR RE-EDUCATION / BALANCE / POSTURAL CONTROL (PT)] Future Scheduled Test THERAPEUTI C EXERCISES AND ESTABLISHING A HOME EXERCISE PROGRAM (PT/STRATEGIC PARTNERSHIP SPECIALIST) [code = THERAPEUTIC EXERCISES AND ESTABLISHING A HOME EXERCISE PROGRAM (PT/STRATEGIC PARTNERSHIP SPECIALIST)] Future Scheduled Test PT/STRATEGIC PARTNERSHIP SPECIALIST TO IDENTIFY FALL RISK FACTORS; EDUCATE THE PATIENT/CAREGIVER ON WAYS TO REDUCE FALL RISK FACTORS AND ESTABLISH HOME EXERCISE PROGRAM TO MINIMIZE FALL RISK. MAY TEACH THE PATIENT FLOOR RECOVERY WHEN CLINICALLY APPROPRIATE [code = PT/STRATEGIC PARTNERSHIP SPECIALIST TO IDENTIFY FALL RISK FACTORS; EDUCATE THE PATIENT/CAREGIVER ON WAYS TO REDUCE FALL RISK FACTORS AND ESTABLISH HOME EXERCISE PROGRAM TO MINIMIZE FALL RISK. MAY TEACH THE PATIENT FLOOR RECOVERY WHEN CLINICALLY APPROPRIATE] Future Scheduled Test PT / STRATE[employer]IC PARTNERSHIP SPECIALIST T O MONITOR AND EDUCATE ON OXYGEN SATURATION DURING ADLS/IADLS, NOTIFY PHYSICIAN AND/OR THE RN CLINICAL MAINTENANCE CRAFTSMAN FOR PHYSICIAN NOTIFICATION AND IF O2 SATS BELOW PHYSICIAN ORDERED PARAMETERS AFTER 10 MIN OF REST [code = PT / STRATEGIC PARTNERSHIP SPECIALIST TO MONITOR AND EDUCATE ON OXYGEN SATURATION DURING ADLS/IADLS, NOTIFY PHYSICIAN AND/OR THE RN CLINICAL MAINTENANCE CRAFTSMAN FOR PHYSICIAN NOTIFICATION AND IF O2 SATS BELOW PHYSICIAN ORDERED PARAMETERS AFTER 10 MIN OF REST] Goal Patient Goal - I WANT TO GET STRONGER AND FEEL MORE MOBILE Goal Provider Goal - Goal Provider Goal - PATIENT WILL IMPROVE HOUSEHOLD TRANSFERS FROM CGA TO INDEPENDENT IN 4 WEEKS WITH SPC TO PROMOTE IMPROVED FUNCTIONAL MOBILITY Goal Provider Goal - Goal Provider Goal - PATIENT WILL IMPROVE HOUSEHOLD GAIT AND STAIRS FROM CGA AND MIN A TO INDEPENDENT IN 4 WEEKS TO PROMOTE IMPROVED FUNCTIONAL MOBILITY Goal Provider Goal - Goal Provider Goal - PATIENT WILL IMPROVE TUG AND FIVE TIMES SIT TO STAND FROM 26 TO 20 SECONDS IN 6 WEEKS TO PROMOTE IMPROVED BALANCE INPUT INTEGRATION Goal Provider Goal - PATIENT WILL DEMO INDEP PERFORMANCE OF STANDING THEREX AND BALANCE ACTIVITY 3 WEEKS PREVIOUSLY INSTRUCTED Goal Provider Goal - PT LTG: PATIENT/CAREGIVER WILL DEMONSTRATE ADHERENCE TO FALL REDUCTION SELF-MANAGEMENT AND REDUCING FALL RISK FACTORS TO MINIMIZE FALL RISK BY END OF EPISODE PT LTG: PATIENT WILL BE INDEPENDENT WITH IMPLEMENTATION OF HEP WITHIN 4 WEEKS PT LTG: CAREGIVER WILL BE INDEPENDENT ASSISTING PATIENT TO COMPLETE HEP WITHIN 4 WEEKS Goal Provider Goal - PT LTG: PATIENT WILL MAINTAIN OXYGEN SATURATION WITHIN PHYSICIAN ORDERED PARAMETERS THROUGHOUT EPISODE OF CARE. Encounters Start Date/Time End Date/Time Encounter Type Admission Type Attending [facility] Care Facility Care Department Encounter ID Discharge Date Discharge Status Discharge Condition Discharge Reason Percent Goals Met 2025-03-22 00:00:00 2025-05-20 00:00:00 Outpatient CHRISTINA SANDHU [facility] [id number]
== END 2025-03-26 13:27 | disposition home or self-care (01) ==
LOC: HO.HUSH 13:00
PROVIDERS: PCP Internal Medicine; Visit Provider Urology
DX: N32.0 Bladder-neck obstruction (principal); C61 Malignant neoplasm of prostate
CPT/HCPCS: 51701; 99214; G2211

== ENCOUNTER → 2025-03-26 13:00 | Outpatient (BNVA) | payer MEDICARE, OTHER, SELFPAY | PROVIDERS: PCP Internal Medicine; Visit Provider Urology | DX: C61 Malignant neoplasm of prostate (principal); N32.0 Bladder-neck obstruction | CPT/HCPCS: 51701; 99212 ==

== ENCOUNTER → 2025-04-11 23:59 | Outpatient (BNV) | payer MEDICARE, OTHER, SELFPAY | PROVIDERS: PCP Internal Medicine; Visit Provider Internal Medicine | DX: K56.690 Other partial intestinal obstruction (principal); E11.51 Type 2 diabetes mellitus with diabetic peripheral angiopathy without gangrene; I25.10 Atherosclerotic heart disease of native coronary artery without angina pectoris | CPT/HCPCS: G0180 ==

== ENCOUNTER 2025-04-14 13:01 | Outpatient (AMB) | payer MEDICARE, OTHER, SELFPAY ==
[2025-04-14 13:13] VITALS: BP 102/66; PULSE 55; O2SAT 98; BMI 22.5
--- NOTE | 2025-04-14 13:13 | MHC.PC.OV ---
Vital Signs 04/14/25 13:13 Height 6 ft 2 in Weight 175 lb 4 oz BMI 22.5 BP 102/66 Blood Pressure Location Lt brachial Position Sitting Pulse 55 Pulse Source Pulse Oximeter Pulse Oximetry (%) 98 Oxygen Delivery Method Room Air Intake Visit Reasons: Coronary artery disease Denial Management Representative Required: No Accompanied by: Self / Same As Patient Allergies diphenhydramine [From Benadryl] Adverse Reaction (Intermediate, Verified 04/14/25 13:14) Hallucinations Medication List - Last Reconciled 04/14/25 by Pro Nunn MD acetaminophen 1,000 mg (2 x 500 mg) PO Q6H PRN amlodipine 5 mg PO BEDTIME aspirin 81 mg PO DAILY blood pressure monitor As directed ICD: I95.9 MEDIUM ADULT SIZE CUFF PATIENT ON MEDICATIONS FOR HTN, CURRENTLY HAS LOW BP READINGS. cyclobenzaprine 5 mg PO BEDTIME lactulose 30 mL PO DAILY PRN levetiracetam 250 mg PO BID 90 days rosuvastatin 10 mg PO DAILY tramadol 50 mg PO BEDTIME [Walker As directed] Tobacco use date assessed: 04/14/25 Fall risk assessment: 2 + Falls in past year Last assessed Fall Risk: 04/14/25 Dental Screening Dental Screen Date: 04/14/25 Did you have a dental visit in the last 12 months?: Yes Did you have a dental problem in the last 6 months where you did not have access to dental care?: No Was dental information given to patient?: Patient has dentist HPI Coronary artery disease HPI Details L shoulder sore- seeing orthopedic for the knee [facility] Medical History (Updated 04/14/25 @ 13:41 by Pro Nunn MD) Ribs, multiple fractures Left arm pain Chest wall contusion Partial obstruction of small intestine Overweight (BMI 25.0-29.9) CAD (coronary artery disease) Afib CVA (cerebral vascular accident) Self-catheterizes urinary bladder History of trigger finger Arthritis Preoperative cardiovascular examination Symptomatic stenosis of left carotid artery Rectal cancer Bladder neck contracture GERD (gastroesophageal reflux disease) Urinary incontinence Obstructive sleep apnea Coronary artery disease Type 2 diabetes mellitus with hyperglycemia Small bowel obstruction Erectile dysfunction Peripheral vascular disease Prostate cancer Hematuria Constipation BPH (benign prostatic hyperplasia) Prostate cancer Colon cancer Dysuria Hyperlipidemia, unspecified Essential hypertension Surgical History History of left-sided carotid endarterectomy History of coronary artery stent placement History of exploratory laparotomy History of carpal tunnel release History of prostate surgery (~2017) History of bladder surgery (~01/04/18) History of colectomy History of appendectomy Family History Father Pancreatic cancer Mother No problems noted. Brother Liver cancer Social History Household Members: Other Household Members Other:: [facility] Housing: House Are you a primary health care consultant to a significant other at home: No Do you presently have visiting nurse or other home services: No Unable to assess alcohol history related to: Unable to respond Alcohol intake: never Patient Tobacco Use Status: Former Tobacco user Tobacco use type: Cigarette e-Cigarette/Vaping Use: Never Used Second Hand Smoke Exposure: No Advance Directives Date on File: 09/29/20 service: No Current occupational status: retired Cognitive needs: Yes (cane, walker) Hearing needs: Yes (hearing aide) Vision needs: Yes (glasses) Questionnaire PHQ-9 Over the last 2 weeks, how often have you been bothered by any of the following problems? 1. Little interest or pleasure in doing things: not at all 2. Feeling down, depressed, or hopeless: not at all 3. Trouble falling or staying asleep, or sleeping too much: not at all 4. Feeling tired or having little energy: not at all 5. Poor appetite or overeating: not at all 6. Feeling bad about yourself - or that you are a failure or have let yourself or your family down: not at all 7. Trouble concentrating on things, such as reading the newspaper or watching television: not at all 8. Moving or speaking so slowly that other people could have noticed. Or the opposite - being so fidgety or restless that you have been moving around a lot more than usual: not at all 9. Thoughts that you would be better off or of hurting yourself in some way: not at all Total score: 0 Depression Screening Interpretation: Negative Depression Screening Done: Yes 80587 - PHQ-9 Billing: Yes Source: Developed by Drs. Chaim Escalera, Heriberto Hernández and colleagues, with an educational marycarmen from [employer]. Thrive Questionnaire Date Thrive assessed: 04/14/25 I am a: Patient What is your living situation today?: I have a steady place to live Within the past 12 months, did the food you bought not last and you didn't have the money to get more?: Sometimes True Within the past 12 months, did you worry whether your food would run out before you got money to buy more?: Sometimes True Do you have trouble paying for medicines?: No Do you have trouble getting transportation to medical appointments?: No Do you have trouble paying your heating and electricity bill?: No Do you have trouble taking care of your child, family member or friend?: No Do you have trouble with day-to-day activities such as bathing, preparing meals, shopping, managing finances, etc.?: No Are you currently unemployed and looking for a job?: No Are you interested in more education?: No Please select the resources that you would like help with: None Currently or been in a relationship where the following occur: No concerns reported THRIVE Score: 2 AUDIT C Alcohol Use Questionnaire (AUDIT-C) 1. How often do you have a drink containing alcohol?: Never 3. How often do you have six or more drinks on one occasion?: Never Total Score: 0 NALINI-7 AMB Questionnaire NALINI-7 Date NALINI - 7 assessed: 04/14/25 Feeling nervous, anxious, or on edge: 0 = Not at all Not being able to stop or control worryin = Not at all Worrying too much about different things: 0 = Not at all Trouble relaxin = Not at all Being so restless that it is hard to sit still: 0 = Not at all Becoming easily annoyed or irritable: 0 = Not at all Feeling afraid as if something awful might happen: 0 = Not at all Total NALINI-7 score (0-4 normal; 5-9 mild; 10-14 moderate; 15-21 severe): 0 Source: Developed by Drs. Chaim Escalera, Heriberto Hernández and colleagues, with an educational marycarmen from [employer]. Physical exam (Primary Care) Vital Signs: Last Vital Signs Pulse 55 04/14/25 13:13 BP 102/66 04/14/25 13:13 Pulse Ox 98 04/14/25 13:13 Oxygen Delivery Method Room Air 04/14/25 13:13 BMI result Body Mass Index 22.5 Tobacco/Smoking Status: Tobacco use Status Tobacco use date assessed 04/14/25 04/14/25 13:16 Patient Tobacco Use Status Former Tobacco user 04/14/25 13:16 Tobacco use type Cigarette 04/14/25 13:16 e-Cigarette/Vaping Use Never Used 04/14/25 13:16 PHQ-9: PHQ-9 Score PHQ-9: Total score 0 04/14/25 13:36 Depression Screening Interpretation: Negative Thrive Assessment: Date of Thrive Assessment Date Thrive assessed 04/14/25 04/14/25 13:16 Currently or been in a relationship where the following occur: No concerns reported Const General: alert; No acute distress Eyes Conjunctivae: conjunctivae normal Resp Auscultation: clear to auscultation bilaterally Cardio Rate: regular rate Rhythm: regular rhythm GI Inspection: Yes normal to inspection Extrem General: Yes normal to inspection and No edema Coding Level of Care Code Est Pt Level 4 (57023) Complex EM visit Add On G2211 Diagnoses Prostate cancer C61 Ribs, multiple fractures S22.49XA Spinal stenosis of lumbar region, unspecified whether neurogenic claudication present M48.061 Neurogenic claudication status: unspecified History of prostate surgery Z98.890 Colon cancer C18.9 Hyperlipidemia, unspecified hyperlipidemia type E78.5 Hyperlipidemia type: unspecified Paroxysmal atrial fibrillation I48.0 Atrial fibrillation type: paroxysmal Coronary artery disease involving [place] coronary artery of [place] heart without angina pectoris I25.10 Associated angina: without angina Coronary Disease-Associated Artery/Lesion type: [place] artery [place] vs. transplanted heart: [place] heart Bladder neck stricture N32.0 Essential hypertension I10 Gastroesophageal reflux disease without esophagitis K21.9 Esophagitis presence: without esophagitis Left shoulder pain M25.512 Additional Codes PHQ-9 - 79871 - PHQ-9 Billing: Yes ([id number]) Assessment & Plan Assessment & Plan (1) Prostate cancer: Code(s): C61 - Malignant neoplasm of prostate Category: Medical Plan: Continue to follow-up with urology and having radiation effects. (2) Ribs, multiple fractures: Comment: February 2025There are nondisplaced fractures of the anterolateral aspects of the left 6th and 7th ribs. Code(s): S22.49XA - Multiple fractures of ribs, unspecified side, initial encounter for closed fracture Category: Medical Plan: Patient had a recent fall sustaining rib fractures 6 and 7th anterolateral left. Discussed about avoiding pneumonia (3) Spinal stenosis, lumbar: Code(s): M48.061 - Spinal stenosis, lumbar region without neurogenic claudication Category: Medical Qualifiers: Neurogenic claudication status: unspecified Qualified Code(s): M48.061 - Spinal stenosis, lumbar region without neurogenic claudication Plan: Conservative management pain management patient has met with neurosurgeon (4) History of prostate surgery: Onset Date: ~2016 Comment: TURP August 2012, December 2013, January 2017 Laser surgery; Dr. Bond Code(s): Z98.890 - Other specified postprocedural states Category: Surgical Plan: Patient using catheter empty bladder (5) Colon cancer: Comment: colectomy 2005 Code(s): C18.9 - Malignant neoplasm of colon, unspecified Category: Medical Plan: Patient has a recurrent partial small-bowel obstruction that does resolve on its own (6) Hyperlipidemia, unspecified: Code(s): E78.5 - Hyperlipidemia, unspecified Category: Medical Qualifiers: Hyperlipidemia type: unspecified Qualified Code(s): E78.5 - Hyperlipidemia, unspecified Plan: Avoid fried foods, chicken skin, eggs, butter margarine, pastries and meat. Be it pork or beef they have a lot of cholesterol on rosuvastatin (7) Afib: Code(s): I48.91 - Unspecified atrial fibrillation Category: Medical Qualifiers: Atrial fibrillation type: paroxysmal Qualified Code(s): I48.0 - Paroxysmal atrial fibrillation Plan: Continue on aspirin (8) CAD (coronary artery disease): Code(s): I25.10 - Atherosclerotic heart disease of [place] coronary artery without angina pectoris Category: Medical Qualifiers: Associated angina: without angina Coronary Disease-Associated Artery/Lesion type: [place] artery [place] vs. transplanted heart: [place] heart Qualified Code(s): I25.10 - Atherosclerotic heart disease of [place] coronary artery without angina pectoris Plan: Control the cholesterol, weight, blood pressure, on aspirin (9) Bladder neck stricture: Comment: status post incision bladder neck contracture with laser, cystoscopy Dr. Hein September 2020 Code(s): N32.0 - Bladder-neck obstruction Category: Medical Plan: Patient is being followed up by Urology (10) Essential hypertension: Code(s): I10 - Essential (primary) hypertension Category: Medical Plan: Continue with blood pressure medication. Decrease salt intake and exercise on amlodipine 5 mg once a day (11) GERD (gastroesophageal reflux disease): Code(s): K21.9 - Gastro-esophageal reflux disease without esophagitis Category: Medical Qualifiers: Esophagitis presence: without esophagitis Qualified Code(s): K21.9 - Gastro-esophageal reflux disease without esophagitis Plan: Avoid the foods that causes that usually spicy foods, tomato products, juices, coffee, soda and foods that your sensitive to. After eating do not lie down, allow 3-4 hours before in lie down. And keep the head of bed above 30 degrees to avoid the acid from going up. (12) Left shoulder pain: Code(s): M25.512 - Pain in left shoulder Category: Medical Plan History of Present Illness The patient is an 89-year-old male presenting with management of multiple chronic conditions and follow-up after recent injuries. The patient has a history of hypertension and gastroesophageal reflux disease (GERD), which have been managed over the years. He also has a history of complex partial seizures and a cerebrovascular accident (CVA), which have been significant in his medical history. In 2005, the patient underwent a colectomy for colon cancer, and he has been monitored for hypercholesterolemia. He also has lumbar spinal stenosis and prostate cancer, which are being managed with regular follow-ups. Recently, the patient experienced bilateral knee pain for which he received steroid injections. He also has a history of bladder neck stricture and radiation cystitis, requiring regular urological monitoring. The patient had a fall resulting in a non-displaced fracture of the left 6th and 7th ribs, which is being managed conservatively. He also experienced a partial small bowel obstruction, which resolved spontaneously. Blood work in February showed mild anemia with a hemoglobin level of 11.3 g/dL, normal electrolytes, and stable renal function. Health Maintenance Social History Review of Systems Physical Exam Results - Labs: Mild anemia with hemoglobin 11.3 g/dL, normal electrolytes, stable renal function. - Imaging: X-rays showing non-displaced fracture of the left 6th and 7th ribs. Plan The management plan includes continuing current medications for hypertension and hypercholesterolemia, including amlodipine and rosuvastatin. The patient is advised to continue aspirin therapy for cardiovascular health. For the recent rib fractures, conservative management with pain control and monitoring for complications such as pneumonia is recommended. The patient is encouraged to engage in physical therapy for lumbar spinal stenosis and to manage knee pain. Regular follow-ups with urology are advised to monitor bladder neck stricture and radiation cystitis. The patient is also advised to monitor for symptoms of bowel obstruction and seek medical attention if symptoms recur. Patient was informed and verbally consented to the use of an ambient scribe for clinic note documentation during this visit. Discussion Notes During the visit, we discussed the importance of continuing current medications for hypertension and hypercholesterolemia. We also reviewed the conservative management plan for the rib fractures, emphasizing pain control and monitoring for pneumonia. The patient was advised to continue physical therapy for lumbar spinal stenosis and knee pain management. Regular urology follow-ups were recommended to monitor bladder neck stricture and radiation cystitis. We also discussed the need to be vigilant for symptoms of bowel obstruction and to seek medical attention if they recur. Patient Instructions - Continue taking amlodipine and rosuvastatin as prescribed. - Take aspirin daily for heart health. - Follow the conservative management plan for rib fractures, including pain control and monitoring for pneumonia. - Engage in physical therapy for lumbar spinal stenosis and knee pain. - Attend regular urology appointments to monitor bladder neck stricture and radiation cystitis. - Be alert for symptoms of bowel obstruction and seek medical attention if they occur.
== END 2025-04-14 13:52 | disposition home or self-care (01) ==
PROVIDERS: PCP Internal Medicine; Visit Provider Internal Medicine
DX: S22.42XA Multiple fractures of ribs, left side, initial encounter for closed fracture (principal); C61 Malignant neoplasm of prostate; C18.9 Malignant neoplasm of colon, unspecified; I48.0 Paroxysmal atrial fibrillation; M48.061 Spinal stenosis, lumbar region without neurogenic claudication; Z98.890 Other specified postprocedural states; E78.5 Hyperlipidemia, unspecified; I25.10 Atherosclerotic heart disease of native coronary artery without angina pectoris; N32.0 Bladder-neck obstruction; I10 Essential (primary) hypertension; K21.9 Gastro-esophageal reflux disease without esophagitis; M25.512 Pain in left shoulder

== ENCOUNTER → 2025-04-14 13:01 | Outpatient (BNVA) | payer MEDICARE, OTHER, SELFPAY | PROVIDERS: PCP Internal Medicine; Visit Provider Internal Medicine | DX: I25.10 Atherosclerotic heart disease of native coronary artery without angina pectoris (principal); C61 Malignant neoplasm of prostate; C18.9 Malignant neoplasm of colon, unspecified; E78.5 Hyperlipidemia, unspecified; I48.0 Paroxysmal atrial fibrillation; N32.0 Bladder-neck obstruction; I10 Essential (primary) hypertension; K21.9 Gastro-esophageal reflux disease without esophagitis; M25.512 Pain in left shoulder; Z98.890 Other specified postprocedural states; S22.49XD Multiple fractures of ribs, unspecified side, subsequent encounter for fracture with routine healing; M48.061 Spinal stenosis, lumbar region without neurogenic claudication | CPT/HCPCS: 96127; 99212 ==

== ENCOUNTER 2025-04-29 12:52 | Outpatient (REF) | payer MEDICARE, OTHER, SELFPAY ==
--- NOTE | ~2025-04-29 | CT_ITS ---
EXAMINATION: CT CHEST HIGH RESOLUTION WITHOUT IV CONTRAST INDICATION: R91.1 - Solitary pulmonary nodule COMPARISON: Comparison is made with the prior examination dated 11/11/2024. TECHNIQUE: Helical CT scan of the chest was performed without intravenous contrast. In addition, high resolution 1.5 mm thick images were obtained in full inspiration and in the prone position. Coronal and sagittal reformatted images were generated and reviewed. This CT exam was performed with one or more of the following dose reduction techniques: automated exposure control, adjustment of the mA and/or kV according to patient size, use of iterative reconstruction technique. DLP: 267 mGy-cm CHEST: THYROID: The thyroid is unremarkable. LUNGS: There is mild thickening of interlobular septae at the lung bases. There is no honeycombing or bronchiectasis. Again seen is an 15 x 11 x 8 mm groundglass nodule at the right lung apex (series 11, image 31). There are scattered 2 mm nodules in the right upper lobe (series 11, image 63 and in the right lower lobe (series 11, image 97). MEDIASTINUM: There is no mediastinal lymphadenopathy. FELICIA: Evaluation of the hilar regions is limited by lack of intravenous contrast material. CARDIOVASCULATURE: The heart is normal in size. There is no pericardial effusion. The thoracic aorta demonstrates atherosclerotic calcification, but is normal in caliber. DEGREE OF CORONARY CALCIFICATION: severe PLEURA: There are calcified pleural plaques bilaterally, consistent with prior asbestos exposure. There is no pleural effusion. No pneumothorax. MAIN AIRWAYS: The mainstem bronchi and proximal branches are patent. AXILLA: There is no axillary lymphadenopathy. BONES AND SOFT TISSUES: Unremarkable UPPER ABDOMEN: The visualized portions of the liver, spleen, and adrenals have an unremarkable unenhanced appearance. CT/CT chest wo con - High Res IMPRESSION: 1. Stable 15 x 11 x 8 mm groundglass nodule at the right lung apex. Continued follow-up is recommended. 2. Calcified pleural plaques bilaterally, consistent with prior asbestos exposure. Electronically signed by: Chaim Kaye MD 04/29/2025 01:25 PM EDT
--- OUTSIDE RECORDS SUMMARY | 2025-04-29 13:42 | XMS_ITS | Clinical Summary ---
Author Organization [facility] Address [address] [place] [address] Phone Care Team Providers Care Room Service Manager Name Role Phone Pro Nunn MD Primary Care Provider [phone] Allergies Active Allergy Reactions Criticality Noted Date [...] Hypertension Hyperlipidemia TIA (transient ischemic attack) Cancer ([facility] V24, [facility] V28) Social History Tobacco Use Types Packs/Day [...] 64 10/29/2023 7:54 AM EST Temperature 36.6 C (97.9 F) 10/29/2023 7:54 AM EST Respiratory Rate 18 10/29/2023 7:54 AM EST [...] DTaP,Tdap,and Td Vaccines (1 - Tdap) 1954 Zoster Vaccines (1 of 2) 1954 Pneumococcal Vaccine: 50+ Ye ars (1 of 1 - PCV) 1986 RSV Immunization Adult Patie nts (1 [...] CHEMISTRY METHOD 10/28/2023 8:29 AM EST [facility] Comment: Cholesterol Risk Factors (NCEP 2004 ATP III update) Desirable: <200 mg/dL Borderline Risk: 200-239 mg/dL High Risk: >239 mg/dL Triglycerides 103 0 - 150 mg/dL LAB CHEMISTRY METHOD 10/28/2023 8:29 AM EST [facility] HDL 34 23 - 92 mg/dL LAB CHEMISTRY METHOD 10/28/2023 8:29 AM EST [facility] LDL Calculated 25 <100 mg/dL LAB CHEMISTRY METHOD 10/28/2023 8:29 AM EST [facility] Comment: LDL Cholesterol Risk Factors (NCEP 2004 ATP III update) Desirable for high risk CHD: < 100 mg/dL Desirable for moderate risk CHD (2 or more risk factors): < 130 mg/dL Desirable for low risk CHD (0-1 risk factors): < 160 mg/dL VLDL Cholesterol David 20.6 mg/dL LAB CHEMISTRY METHOD 10/28/2023 8:29 AM EST [facility] Blood Venous blood specimen / Unknown Venipuncture / Unknown 10/28/2023 6:39 AM EST 10/28/2023 8:01 AM EST us Roman Wu MD LAB BLOOD ORDERABLES Fi nal Result [facility] [address] [place] [address], [place] [phone] from Last 3 Months or Most Recently [...] currently active code status orders. Care Teams Room Service Manager Relationship Specialty Start Date End Date Pro Nunn MD [address] [place] [address] [facility] [place] [address] PCP - General Internal Medicine 10/26/23
== END 2025-04-29 12:53 | disposition home or self-care (01) ==
LOC: HO.CT 12:52
PROVIDERS: PCP Internal Medicine; Visit Provider Internal Medicine
DX: R91.1 Solitary pulmonary nodule (principal)
CPT/HCPCS: 71250

== ENCOUNTER → 2025-04-29 12:54 | Outpatient (BNV) | payer MEDICARE, OTHER, SELFPAY | PROVIDERS: PCP Internal Medicine; Visit Provider Radiology Diagnostic Radiology | DX: R91.1 Solitary pulmonary nodule (principal); J92.9 Pleural plaque without asbestos | CPT/HCPCS: 71250 ==

== ENCOUNTER 2025-05-12 14:18 | Outpatient (AMB) | payer MEDICARE, OTHER, SELFPAY ==
--- NOTE | 2025-05-12 14:37 | A.OFFVIS_ITS ---
Intake Visit Reasons: 6m/cps Allergies diphenhydramine (From Benadryl) Adverse Reaction (Intermediate, Verified 04/14/25 13:14) Hallucinations Medication List - Last Reconciled 05/12/25 by Josie Kelly MD acetaminophen 1,000 mg (2 x 500 mg) PO Q6H PRN amlodipine 5 mg PO BEDTIME aspirin 81 mg PO DAILY blood pressure monitor As directed ICD: I95.9 MEDIUM ADULT SIZE CUFF PATIENT ON MEDICATIONS FOR HTN, CURRENTLY HAS LOW BP READINGS. cyclobenzaprine 5 mg PO BEDTIME lactulose 30 mL PO DAILY PRN levetiracetam 250 mg PO BID 90 days rosuvastatin 10 mg PO DAILY tramadol 50 mg PO BEDTIME [Walker As directed] HPI Comments Details: 89 yo man with an embolic looking right frontal chronic ischemic infarction associated with right carotid stenosis, s/p right CEA in March of 2024, with negative cardiac work up, and seizure disorder. One time he was driving when he became dizzy, he could not see anything, and became unresponsive for a few seconds. Similar episode happened in [place]. With clinical diagnosis of seizure disorder, he was treated with levetiracetam twice a day. He was doing all right with no further episodes. He was taking medicines regularly. No new symptoms. [facility] Medical History (Updated 05/12/25 @ 14:39 by Josie Kelly MD) Seizure disorder Cerebral infarct Ribs, multiple fractures Left arm pain Chest wall contusion Partial obstruction of small intestine Overweight (BMI 25.0-29.9) CAD (coronary artery disease) Afib CVA (cerebral vascular accident) Self-catheterizes urinary bladder History of trigger finger Arthritis Preoperative cardiovascular examination Symptomatic stenosis of left carotid artery Rectal cancer Bladder neck contracture GERD (gastroesophageal reflux disease) Urinary incontinence Obstructive sleep apnea Coronary artery disease Type 2 diabetes mellitus with hyperglycemia Small bowel obstruction Erectile dysfunction Peripheral vascular disease Prostate cancer Hematuria Constipation BPH (benign prostatic hyperplasia) Prostate cancer Colon cancer Dysuria Hyperlipidemia, unspecified Essential hypertension Surgical History History of left-sided carotid endarterectomy History of coronary artery stent placement History of exploratory laparotomy History of carpal tunnel release History of prostate surgery (~2016) History of bladder surgery (~01/04/18) History of colectomy History of appendectomy Family History Father Pancreatic cancer Mother No problems noted. Brother Liver cancer Social History Household Members: Other Household Members Other:: [facility] Housing: House Are you a primary healthcare sales representative to a significant other at home: No Do you presently have visiting nurse or other home services: No Unable to assess alcohol history related to: Unable to respond Alcohol intake: never Patient Tobacco Use Status: Former Tobacco user Tobacco use type: Cigarette e-Cigarette/Vaping Use: Never Used Second Hand Smoke Exposure: No Advance Directives Date on File: 09/29/20 service: No Current occupational status: retired Cognitive needs: Yes (cane, walker) Hearing needs: Yes (hearing aide) Vision needs: Yes (glasses) Review of Systems Const Details: Constitutional:?No fever, chills, fatigue, weight loss, or night sweats. HEENT:?No headache, vision changes, hearing loss, nasal congestion, sore throat. Neurological:?No dizziness, syncope, seizures, numbness, tingling, weakness, tremors, memory loss. Psychiatric:?No anxiety, depression, mood swings, sleep disturbance, or hallucinations. Endocrine:?No heat/cold intolerance, polydipsia, polyuria, or hair/skin changes. Hematologic/Lymphatic:?No easy bruising, bleeding, or lymphadenopathy. Integumentary (Skin):?No rash, lesions, itching, or color changes. ? Physical Exam Neuro Other: Mental Status: Alert and oriented to person, place, and time. Normal attention. Normal spontaneous speech, fluency, and comprehension. No obvious issues with mood and memory. Affect is appropriate. Cranial Nerves: CN II: Visual luciano full to confrontation, visual acuity intact. CN III, IV, : Pupils equal, round, reactive to light and accommodation. Extraocular movements are normal. CN V: Facial sensation is normal. CN VII: Facial movements symmetrical. CN VIII: Hearing intact to bedside conversation is normal. CN IX, X: Palate elevates symmetrically. CN XI: Shoulder shrug and head turn symmetrical. CN XII: Tongue midline without atrophy or fasciculations. Extrapyramidal: Full facial expressions and blinking. No rigidity. Movements are appropriate with no tremor or abnormality. Speech: Normal; no dysarthria or tremor. Assessment & Plan Assessment & Plan (1) Complex partial seizure disorder: Comment: EEG at [facility] in February 2024: WNL CT brain WO at [facility] in February 2024: Mod atrophy, chronic R Frontal infarct CTA brain and neck at [facility] in February 2024: 90% R ICA stenosis. Code(s): G40.209 - Localization-related (focal) (partial) symptomatic epilepsy and epileptic syndromes with complex partial seizures, not intractable, without status epilepticus Category: Medical (2) CVA (cerebral vascular accident): Code(s): I63.9 - Cerebral infarction, unspecified Category: Medical Qualifiers: CVA mechanism: unspecified Qualified Code(s): I63.9 - Cerebral infarction, unspecified Plan Impression: 1. Complex partial seizure disorder 2. Chronic right frontal cerebral infarction associated with carotids stenosis 3. Status post bilateral carotid endarterectomy Recommendations: 1. Continue levetiracetam 250 mg twice a day and 2. Continue aspirin 81 mg daily and statin with blood pressure control Medications: Refilled levetiracetam 250 mg PO BID 180 tabs 0RF 90 days Coding Level of Care Code Est Pt Level 4 (74347) Diagnoses Complex partial seizure disorder G40.209 Cerebrovascular accident (CVA), unspecified mechanism I63.9 CVA mechanism: unspecified
--- OUTSIDE RECORDS SUMMARY | 2025-05-12 15:42 | XMS_ITS | Clinical Summary ---
Author Organization [facility] Address [address] [place] [address] Phone Care Team Providers Care Scenery Builder Name Role Phone Pro Nunn MD Primary Care Provider [phone] Allergies Active Allergy Reactions Criticality Noted Date [...] Hypertension Hyperlipidemia TIA (transient ischemic attack) Cancer ([facility] V24, [facility] V28) Social History Tobacco Use Types [...] of Health Screening 10/26/2023 Influenza Vaccine (#1) 2025 Cholesterol Screening (Lipid Panel) 10/28/2028 10/28/2023 [...] LAB CHEMISTRY METHOD 10/28/2023 8:29 AM EST [facility] Comment: Cholesterol Risk Factors (NCEP 2004 ATP III update) Desirable: <200 mg/dL Borderline Risk: 200-239 mg/dL High Risk: >239 mg/dL Triglycerides 103 0 - 150 mg/dL LAB CHEMISTRY METHOD 10/28/2023 8:29 AM EST [facility] HDL 34 23 - 92 mg/dL LAB CHEMISTRY METHOD 10/28/2023 8:29 AM EST [facility] LDL Calculated 25 <100 mg/dL LAB CHEMISTRY METHOD 10/28/2023 8:29 AM EST [facility] Comment: LDL Cholesterol Risk Factors (NCEP 2004 ATP III update) Desirable for high risk CHD: < 100 mg/dL Desirable for moderate risk CHD (2 or more risk factors): < 130 mg/dL Desirable for low risk CHD (0-1 risk factors): < 160 mg/dL VLDL Cholesterol David 20.6 mg/dL LAB CHEMISTRY METHOD 10/28/2023 8:29 AM EST [facility] Blood Venous blood specimen / Unknown Venipuncture / Unknown 10/28/2023 6:39 AM EST 10/28/2023 8:01 AM EST us Roman Wu MD LAB BLOOD ORDERABLES Fi nal Result [facility] [address] [place] [address], [place] [phone] from Last 3 Months or Most Recently Relevant to Health Maintenance Insurance MEDICARE [facility] Advance Directives * Full Code [...] currently active code status orders. Care Teams Scenery Builder Relationship Specialty Start Date End Date Pro Nunn MD [address] [place] [address] [address] [facility] [place] [id number] PCP - General Internal Medicine 10/26/23
== END 2025-05-12 14:45 | disposition home or self-care (01) ==
LOC: HO.HSM 14:19
PROVIDERS: PCP Internal Medicine; Visit Provider Psychiatry & Neurology Neurology
DX: G40.209 Localization-related (focal) (partial) symptomatic epilepsy and epileptic syndromes with complex partial seizures, not intractable, without status epilepticus (principal); I63.9 Cerebral infarction, unspecified
CPT/HCPCS: 99214

== ENCOUNTER → 2025-05-12 14:18 | Outpatient (BNVA) | payer MEDICARE, OTHER, SELFPAY | PROVIDERS: PCP Internal Medicine; Visit Provider Psychiatry & Neurology Neurology | DX: G40.209 Localization-related (focal) (partial) symptomatic epilepsy and epileptic syndromes with complex partial seizures, not intractable, without status epilepticus (principal); Z79.82 Long term (current) use of aspirin; Z79.899 Other long term (current) drug therapy; Z86.73 Personal history of transient ischemic attack (TIA), and cerebral infarction without residual deficits | CPT/HCPCS: 99212 ==

== ENCOUNTER 2025-07-17 12:25 | Outpatient (AMB) | payer MEDICARE, OTHER, SELFPAY ==
--- NOTE | 2025-07-17 12:37 | MHC.OFFVIS ---
Vital Signs 07/17/25 12:38 Height 6 ft 2 in Weight 173 lb BMI 22.2 BP 118/60 Blood Pressure Location Lt brachial Position Sitting Pulse 60 Pulse Source Auscultation Intake Visit Reasons: 6 mth f/up Allergies diphenhydramine (From Benadryl) Adverse Reaction (Intermediate, Verified 04/14/25 13:14) Hallucinations Medication List - Last Reconciled 07/17/25 by Sean Pina MD acetaminophen 1,000 mg (2 x 500 mg) PO Q6H PRN amlodipine 5 mg PO BEDTIME aspirin 81 mg PO DAILY blood pressure monitor As directed ICD: I95.9 MEDIUM ADULT SIZE CUFF PATIENT ON MEDICATIONS FOR HTN, CURRENTLY HAS LOW BP READINGS. cyclobenzaprine 5 mg PO BEDTIME lactulose 30 mL PO DAILY PRN levetiracetam 250 mg PO BID 90 days rosuvastatin 10 mg PO DAILY tramadol 50 mg PO BEDTIME [Walker As directed] HPI Comments Details: Geoffrey returns for follow-up. In 09/2023, he was in [place] when he had stroke-like symptoms. Then he returned back to [place] and saw vascular surgery. He underwent cardiac catheterization as part of preoperative workup. Detected to have severe right coronary artery stenosis for which he underwent PCI. Subsequently, had carotid surgery as well and that was uneventful. For the most part, he is feeling fine. Frailty related to age but otherwise okay. [facility] Medical History (Updated 05/12/25 @ 14:39 by Josie Kelly MD) Seizure disorder Cerebral infarct Ribs, multiple fractures Left arm pain Chest wall contusion Partial obstruction of small intestine Overweight (BMI 25.0-29.9) CAD (coronary artery disease) Afib CVA (cerebral vascular accident) Self-catheterizes urinary bladder History of trigger finger Arthritis Preoperative cardiovascular examination Symptomatic stenosis of left carotid artery Rectal cancer Bladder neck contracture GERD (gastroesophageal reflux disease) Urinary incontinence Obstructive sleep apnea Coronary artery disease Type 2 diabetes mellitus with hyperglycemia Small bowel obstruction Erectile dysfunction Peripheral vascular disease Prostate cancer Hematuria Constipation BPH (benign prostatic hyperplasia) Prostate cancer Colon cancer Dysuria Hyperlipidemia, unspecified Essential hypertension Surgical History History of left-sided carotid endarterectomy History of coronary artery stent placement History of exploratory laparotomy History of carpal tunnel release History of prostate surgery (~2017) History of bladder surgery (~01/04/18) History of colectomy History of appendectomy Family History Father Pancreatic cancer Mother No problems noted. Brother Liver cancer Social History Household Members: Other Household Members Other:: [facility] Housing: House Are you a primary health care attorney to a significant other at home: No Do you presently have visiting nurse or other home services: No Unable to assess alcohol history related to: Unable to respond Alcohol intake: never Patient Tobacco Use Status: Former Tobacco user Tobacco use type: Cigarette e-Cigarette/Vaping Use: Never Used Second Hand Smoke Exposure: No Advance Directives Date on File: 09/29/20 service: No Current occupational status: retired Cognitive needs: Yes (cane, walker) Hearing needs: Yes (hearing aide) Vision needs: Yes (glasses) Review of Systems Const Denies weakness ENT Denies dizziness Card Denies chest pain, Denies chest pain with activity, Denies syncope, Denies rapid heart rate, Denies pedal edema, Denies edema, Denies leg edema, Denies lightheadedness, Denies palpitations, Denies dyspnea, Denies dyspnea on exertion and Denies orthopnea Resp Denies cough, Denies dyspnea and Denies dyspnea on exertion GI Denies hematochezia and Denies change in stool character Musc Denies abnormal gait, Denies muscle cramps, Denies muscle weakness, Denies numbness, Denies radiating pain into limb and Denies tingling Neuro Denies abnormal gait, Denies dizziness, Denies syncope, Denies numbness, Denies tingling and Denies weakness Endo Denies palpitations Physical Exam Vital Signs: Last Vital Signs Pulse 60 07/17/25 12:38 BP 118/60 07/17/25 12:38 BMI result Body Mass Index 22.2 Const General: comfortable and no acute distress Orientation/consciousness: patient oriented x3 HEENT Other: Unremarkable Head: Yes normal to inspection Neck Neck: Yes normal visual inspection Chest Chest palpation & inspection: normal inspection of the chest Resp Auscultation: clear to auscultation bilaterally Cardio Palpation: normal PMI Heart sounds: S1 normal heart sound present, S2 normal heart sound present, no gallops, no murmurs and no rubs GI Palpation (GI): Soft to palpation Back/Spine/Pelvis Other: unremarkable Skin General skin exam: no rashes or lesions noted Neuro General: patient oriented x3 Extrem General: Yes normal to inspection Psych Mental Status: mental status grossly normal Assessment & Plan Assessment & Plan (1) Atherosclerotic cardiovascular disease: Code(s): I25.10 - Atherosclerotic heart disease of [place] coronary artery without angina pectoris Category: Medical Plan Cardiac studies reviewed. Echocardiogram from 2020 with LVEF of 60-65% and otherwise unremarkable. Another study from [place] during 2022 hospitalization showed LVEF 50-55%; normal right ventricular systolic function and no significant valvular abnormalities. Stress MIBI from 2014 with some inferobasal and apical ischemia. Repeat study from 2016 with similar findings. Cardiac catheterization 2023 with severe stenosis in the right coronary artery status post PCI. First diagonal with 50-60% stenosis. Otherwise, no significant disease. Overall, stable vascular disease, frailty from age, hypertension, otherwise stable. Continue amlodipine for the blood pressure. Otherwise, remains on aspirin and statins. Follow up in one year. In the interim, he will call with concerns. Total time spent including review of data, counseling, documentation, coordination of care-31 minutes. Coding Level of Care Code Est Pt Level 4 (95400) Complex EM visit Add On G2211 Diagnoses Atherosclerotic cardiovascular disease I25.10
[2025-07-17 12:38] VITALS: BP 118/60; PULSE 60; BMI 22.2
--- OUTSIDE RECORDS SUMMARY | 2025-07-17 14:35 | XMS_ITS | Clinical Summary ---
Author Organization [facility] Address [address] [place] [address] Phone Care Team Providers Care Mirror Department Supervisor Name Role Phone Pro Nunn MD Primary Care Provider [phone] Allergies Active Allergy Reactions Criticality Noted Date [...] Hyperlipidemia TIA (transient ischemic attack) Cancer ([facility] V24, [facility] V28) Social History Tobacco Use [...] nts (1 - 1-dose 75+ series) 2011 Falls Risk Assessment 10/26/2023 Medicare Annual Wellness Visit 10/26/2023 Social Influencers of Health Screening 10/26/2023 Depression Screening 10/30/2024 Influenza Vaccine (#1) 2025 Cholesterol Screening (Lipid [...] LAB CHEMISTRY METHOD 10/28/2023 8:[address] [facility] Comment: Cholesterol Risk Factors (NCEP 2004 ATP III update) Desirable: <200 mg/dL Borderline Risk: 200-239 mg/dL High Risk: >239 mg/dL Triglycerides 103 0 - 150 mg/dL LAB CHEMISTRY METHOD 10/28/2023 8:[address] [facility] HDL 34 23 - 92 mg/dL LAB CHEMISTRY METHOD 10/28/2023 8:[address] [facility] LDL Calculated 25 <100 mg/dL LAB CHEMISTRY METHOD 10/28/2023 8:[address] [facility] Comment: LDL Cholesterol Risk Factors (NCEP 2004 ATP III update) Desirable for high risk CHD: < 100 mg/dL Desirable for moderate risk CHD (2 or more risk factors): < 130 mg/dL Desirable for low risk CHD (0-1 risk factors): < 160 mg/dL VLDL Cholesterol David 20.6 mg/dL LAB CHEMISTRY METHOD 10/28/2023 8:[address] [facility] Blood Venous blood specimen / Unknown Venipuncture / Unknown 10/28/2023 6:39 AM EST 10/28/2023 8:01 AM EST us Roman Wu MD LAB BLOOD ORDERABLES Fi nal Result [facility] [address] [place] [address], [place] [phone] from Last 3 Months or Most Recently Relevant to Health Maintenance Insurance MEDICARE [facility] Advance Directives * Full Code - [...] currently active code status orders. Care Teams Mirror Department Supervisor Relationship Specialty Start Date End Date Pro Nunn MD [address] [place] [address] [address] [facility] [place] [address] PCP - General Internal Medicine 10/26/23
== END 2025-07-17 12:49 | disposition home or self-care (01) ==
LOC: HO.HCS 12:26
PROVIDERS: PCP Internal Medicine; Visit Provider Internal Medicine
DX: I25.10 Atherosclerotic heart disease of native coronary artery without angina pectoris (principal)
CPT/HCPCS: 99214; G2211

== ENCOUNTER → 2025-07-17 12:25 | Outpatient (BNVA) | payer MEDICARE, OTHER, SELFPAY | PROVIDERS: PCP Internal Medicine; Visit Provider Internal Medicine | DX: I25.10 Atherosclerotic heart disease of native coronary artery without angina pectoris (principal) | CPT/HCPCS: 99212 ==

== ENCOUNTER 2025-08-11 12:53 | Outpatient (AMB) | payer MEDICARE, OTHER, SELFPAY ==
--- OUTSIDE RECORDS SUMMARY | 2025-08-11 12:55 | XMS_ITS | Clinical Summary ---
Author Organization [facility] Address [address] [place] [address] Phone Care Team Providers Care Marketing Agent Name Role Phone Pro Nunn MD Primary Care Provider [phone] Allergies Active Allergy Reactions Criticality Noted Date [...] Hypertension Hyperlipidemia TIA (transient ischemic attack) Cancer ([facility] V24, [facility] V28) Social History Tobacco Use Types Packs/Day Years Used Date Smoking Tobacco: Former Cigarettes Smokeless Tobacco: Never Tobacco Cessation:Counseling Given: Not Answered Alcohol Use Standard Drinks/Week Comments Not Currently 0 (1 standard drink = 0.6 oz pur e alcohol) Interpersonal Safety Answer Date Record ed Physical Abuse Unrecognized value 10/26/2023 Verbal Abuse Unrecognized value 10/26/2023 Sex and Gender Information Value Date [...] LAB CHEMISTRY METHOD 10/28/2023 8:29 AM EST [facility] Comment: Cholesterol Risk Factors (NCEP 2004 ATP III update) Desirable: <200 mg/dL Borderline Risk: 200-239 mg/dL High Risk: >239 mg/dL Triglycerides 103 0 - 150 mg/dL LAB CHEMISTRY METHOD 10/28/2023 8:29 AM EST [facility] HDL 34 23 - 92 mg/dL LAB CHEMISTRY METHOD 10/28/2023 8:29 AM EST [facility] LDL Calculated 25 <100 mg/dL LAB CHEMISTRY METHOD 10/28/2023 8:29 AM EST [facility] Comment: LDL Cholesterol Risk Factors (NCEP 2004 ATP III update) Desirable for high risk CHD: < 100 mg/dL Desirable for moderate risk CHD (2 or more risk factors): < 130 mg/dL Desirable for low risk CHD (0-1 risk factors): < 160 mg/dL VLDL Cholesterol David 20.6 mg/dL LAB CHEMISTRY METHOD 10/28/2023 8:29 AM EST [facility] Blood Venous blood specimen / Unknown Venipuncture / Unknown 10/28/2023 6:39 AM EST 10/28/2023 8:01 AM EST us Roman Wu MD LAB BLOOD ORDERABLES Fi nal Result [facility] [address] [place] [address], [place] [phone] from Last 3 Months or Most Recently Relevant to Health Maintenance Insurance MEDICARE [facility] Advance Directives * Full Code - Default [...] currently active code status orders. Care Teams Marketing Agent Relationship Specialty Start Date End Date Pro Nunn MD [address] [place] [address] [address] [facility] [place] [address] PCP - General Internal Medicine 10/26/23
[2025-08-11 12:56] VITALS: BP 114/70; PULSE 74; O2SAT 97; BMI 25.0
--- NOTE | 2025-08-11 12:56 | MHC.PC.OV ---
Vital Signs 08/11/25 12:56 Height 5 ft 11 in Weight 179 lb BMI 25.0 BP 114/70 Blood Pressure Location Lt brachial Position Sitting Pulse 74 Pulse Source Pulse Oximeter Pulse Oximetry (%) 97 Oxygen Delivery Method Room Air Intake Visit Reasons: L shoulder pain, hypercholesterol Allergies diphenhydramine (From Benadryl) Adverse Reaction (Intermediate, Verified 08/11/25 12:57) Hallucinations Tobacco use date assessed: 04/14/25 Fall risk assessment: No Falls in past year Last assessed Fall Risk: 08/11/25 Dental Screening Dental Screen Date: 04/14/25 [facility] Medical History (Updated 05/12/25 @ 14:39 by Josie Kelly MD) Seizure disorder Cerebral infarct Ribs, multiple fractures Left arm pain Chest wall contusion Partial obstruction of small intestine Overweight (BMI 25.0-29.9) CAD (coronary artery disease) Afib CVA (cerebral vascular accident) Self-catheterizes urinary bladder History of trigger finger Arthritis Preoperative cardiovascular examination Symptomatic stenosis of left carotid artery Rectal cancer Bladder neck contracture GERD (gastroesophageal reflux disease) Urinary incontinence Obstructive sleep apnea Coronary artery disease Type 2 diabetes mellitus with hyperglycemia Small bowel obstruction Erectile dysfunction Peripheral vascular disease Prostate cancer Hematuria Constipation BPH (benign prostatic hyperplasia) Prostate cancer Colon cancer Dysuria Hyperlipidemia, unspecified Essential hypertension Surgical History History of left-sided carotid endarterectomy History of coronary artery stent placement History of exploratory laparotomy History of carpal tunnel release History of prostate surgery (~2016) History of bladder surgery (~01/04/18) History of colectomy History of appendectomy Family History Father Pancreatic cancer Mother No problems noted. Brother Liver cancer Social History Household Members: Other Household Members Other:: [facility] Housing: House Are you a primary health care social worker to a significant other at home: No Do you presently have visiting nurse or other home services: No Alcohol intake: never Patient Tobacco Use Status: Former Tobacco user Tobacco use type: Cigarette e-Cigarette/Vaping Use: Never Used Second Hand Smoke Exposure: No Advance Directives Date on File: 09/29/20 service: No Current occupational status: retired Cognitive needs: Yes (cane, walker) Hearing needs: Yes (hearing aide) Vision needs: Yes (glasses) Questionnaire Thrive Questionnaire Date Thrive assessed: 04/14/25 NALINI-7 AMB Questionnaire NALINI-7 Date NALINI - 7 assessed: 04/14/25 Source: Developed by Drs. Chaim Escalera, Angy Pereira, Heriberto Wick and colleagues, with an educational marycarmen from [employer]. Physical exam (Primary Care) Vital Signs: Last Vital Signs Pulse 74 08/11/25 12:56 BP 114/70 08/11/25 12:56 Pulse Ox 97 08/11/25 12:56 Oxygen Delivery Method Room Air 08/11/25 12:56 BMI result Body Mass Index 25.0 Tobacco/Smoking Status: Tobacco use Status Tobacco use date assessed 04/14/25 08/11/25 13:01 Patient Tobacco Use Status Former Tobacco user 08/11/25 13:01 Tobacco use type Cigarette 08/11/25 13:01 e-Cigarette/Vaping Use Never Used 08/11/25 13:01 Thrive Assessment: Date of Thrive Assessment Date Thrive assessed 04/14/25 08/11/25 13:01 Const General: alert; No acute distress Eyes Conjunctivae: conjunctivae normal Resp Auscultation: clear to auscultation bilaterally Cardio Rate: regular rate Rhythm: regular rhythm GI Inspection: Yes normal to inspection Extrem General: Yes normal to inspection and No edema Office Procedures Flu Questionnaire Does the patient have a severe egg allergy?: No Does the patient have severe life threatening allergies?: No Does the patient have a fever or illness today?: No Has the patient ever had Guillain-[place] Syndrome?: No Has the patient ever had any past reaction to a flu shot?: No Immunizations Fluarix [id number] (PF) 45 mcg (15 mcg x 3)/0.5 mL IM syringe Performing Provider: Pro Nunn MD [facility] Administered by: Aida Rodriguez CMA on 08/11/25 13:32 Dose Route Admin Location Dispensed Lot Number Expiration Date [facility] Communications Clerk 0.5 mL IM Left Deltoid 0.5 mL [id number] 04/28/26 [id number] [employer] VIS Given Date VIS Provided VIS Publication Date 08/11/25 Single Vaccine 24 Eligibility Eligibility Date Funding Source Not [facility] Eligible 08/11/25 Private Coding Level of Care Code Est Pt Level 4 (85480) Complex EM visit Add On G2211 Diagnoses Essential hypertension I10 Coronary artery disease involving [place] coronary artery of [place] heart without angina pectoris I25.10 Associated angina: without angina Coronary Disease-Associated Artery/Lesion type: [place] artery [place] vs. 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 Decrease salt intake and exercise on amlodipine 5 mg once a day (2) CAD (coronary artery disease): Code(s): I25.10 - Atherosclerotic heart disease of [place] coronary artery without angina pectoris Category: Medical Qualifiers: Associated angina: without angina Coronary Disease-Associated Artery/Lesion type: [place] artery [place] vs. transplanted heart: [place] heart Qualified Code(s): I25.10 - Atherosclerotic heart disease of [place] coronary artery without angina pectoris Plan: Control the cholesterol, weight, blood pressure, LDL cholesterol goal of less than 70. Patient on aspirin 81 mg once a day (3) Hyperlipidemia, unspecified: Code(s): E78.5 - Hyperlipidemia, unspecified Category: Medical Qualifiers: Hyperlipidemia type: unspecified Qualified Code(s): E78.5 - Hyperlipidemia, unspecified Plan: Avoid fried foods, chicken skin, eggs, butter margarine, pastries and meat. Be it pork or beef they have a lot of cholesterol LDL goal of less than 70 and triglyceride of less than 150 on rosuvastatin 10 mg once a day (4) GERD (gastroesophageal reflux disease): Code(s): K21.9 - Gastro-esophageal reflux disease without esophagitis Category: Medical Qualifiers: Esophagitis presence: without esophagitis Qualified Code(s): K21.9 - Gastro-esophageal reflux disease without esophagitis Plan: Avoid the foods that causes that usually spicy foods, tomato products, juices, coffee, soda and foods that your sensitive to. After eating do not lie down, allow 3-4 hours before in lie down. And keep the head of bed above 30 degrees to avoid the acid from going up. (5) Complex partial seizure disorder: Comment: EEG at [facility] in February 2024: WNL CT brain WO at [facility] in February 2024: Mod atrophy, chronic R Frontal infarct CTA brain and neck at [facility] in February 2024: 90% R ICA stenosis. Code(s): G40.209 - Localization-related (focal) (partial) symptomatic epilepsy and epileptic syndromes with complex partial seizures, not intractable, without status epilepticus Category: Medical Plan: Patient has seen Neurology and continuing with Keppra (6) Pulmonary nodule: Comment: OctoberStable 15 x 11 x 8 mm groundglass nodule at the right lung apex. Continued follow-up is recommended. 2. Calcified pleural plaques bilaterally, consistent with prior asbestos exposure. Code(s): R91.1 - Solitary pulmonary nodule Category: Medical Plan: October 2024 last CAT scan Plan History of Present Illness The patient is an 89-year-old male presenting with the management of multiple chronic conditions and preventative care. The patient has a history of hypertension managed with amlodipine 5 mg once daily. He underwent carotid endarterectomy for bilateral carotid artery stenosis in November and February 2024. The patient has a history of cerebrovascular accident (CVA) and coronary artery disease (CAD), with atrial fibrillation. He is on aspirin 81 mg once daily and rosuvastatin 10 mg once daily for hypercholesterolemia, with a goal LDL of less than 70 mg/dL. The patient has a history of colon cancer with colectomy in 2005 and prostate cancer in 2011. He also has lumbar spine stenosis, which has been a chronic issue. The patient has been diagnosed with complex partial seizures and is on Keppra 250 mg twice daily. He has a chronic right frontal cerebral infarction and has been treated by neurology. A pulmonary nodule was identified in a CAT scan in April 2025, which remains stable. Calcified pulmonary plaques consistent with prior asbestos exposure were also noted. The patient has mild anemia with hemoglobin levels of 11.3 g/dL and hematocrit of 33.9%, noted since January. His electrolytes, renal function, and blood sugar levels are within normal limits. The patient has a large acute left shoulder rotator cuff tear, for which he is not a surgical candidate. Nonsurgical options such as injections and physical therapy were discussed, but the patient declined physical therapy. Health Maintenance - Flu vaccination administered during the visit - Blood work requested for cholesterol monitoring Social History - Housing: Recently moved out of assisted living and is receiving regular meals. - Exercise: Engages in activities such as bocce and driving, emphasizing the importance of movement. Review of Systems - Musculoskeletal: Reports left shoulder pain, denies engaging in physical therapy. Physical Exam Results - Labs: Normal platelets, normal blood count with no anemia, normal electrolytes, renal function, magnesium, liver function, and thyroid function. - Imaging: CAT scan in April 2025 showing stable pulmonary nodule and calcified pulmonary plaques consistent with prior asbestos exposure. Plan Patient was informed and verbally consented to the use of an ambient scribe for clinic note documentation during this visit. 1. Hypertension The patient is currently on amlodipine 5 mg once daily for hypertension management. 2. Bilateral Carotid Artery Stenosis The patient underwent carotid endarterectomy in November and February 2024. 3. Cerebrovascular Accident (Cva) The patient has a history of CVA and is on aspirin 81 mg once daily. 4. Coronary Artery Disease (Cad) The patient is on rosuvastatin 10 mg once daily with a goal LDL of less than 70 mg/dL. 5. Atrial Fibrillation The patient is on aspirin 81 mg once daily for atrial fibrillation management. 6. Hypercholesterolemia The patient is on rosuvastatin 10 mg once daily with a goal LDL of less than 70 mg/dL. 7. Complex Partial Seizure The patient is on Keppra 250 mg twice daily for seizure management. 8. Pulmonary Nodule A stable pulmonary nodule was noted in the CAT scan from April 2025. 9. Mild Anemia The patient has mild anemia with hemoglobin levels of 11.3 g/dL and hematocrit of 33.9%. 10. Large Acute Left Shoulder Rotator Cuff Tear The patient is not a surgical candidate and declined physical therapy; nonsurgical options such as injections were discussed. Discussion Notes During the visit, we discussed the management of the patient's multiple chronic conditions, including hypertension, hypercholesterolemia, and atrial fibrillation. We also reviewed the patient's recent imaging and lab results, noting the stability of the pulmonary nodule and the presence of mild anemia. Preventative care measures, such as the administration of a flu vaccine and the need for updated blood work, were also addressed. Patient Instructions - Continue taking all prescribed medications as directed. - Schedule and complete the requested blood work for cholesterol monitoring. - Receive the flu vaccine today as planned. - Engage in regular physical activity and avoid overindulgence in high-cholesterol foods. - Follow up with your healthcare provider as scheduled or if any new symptoms arise. Orders: Orders Ferritin Today I25.10 - Atherosclerotic heart disease of [place] coronary artery without angina pectoris Reticulocyte Count Today I25.10 - Atherosclerotic heart disease of [place] coronary artery without angina pectoris Influenza [id number] Immunization Today Z23 - Encounter for immunization IRON PROFILE Today I25.10 - Atherosclerotic heart disease of [place] coronary artery without angina pectoris
== END 2025-08-11 13:37 | disposition home or self-care (01) ==
LOC: HO.HMCH 12:53
PROVIDERS: PCP Internal Medicine; Visit Provider Internal Medicine
DX: I10 Essential (primary) hypertension (principal); I25.10 Atherosclerotic heart disease of native coronary artery without angina pectoris; G40.209 Localization-related (focal) (partial) symptomatic epilepsy and epileptic syndromes with complex partial seizures, not intractable, without status epilepticus; E78.5 Hyperlipidemia, unspecified; K21.9 Gastro-esophageal reflux disease without esophagitis; R91.1 Solitary pulmonary nodule; Z23 Encounter for immunization

== ENCOUNTER → 2025-08-11 12:53 | Outpatient (BNVA) | payer MEDICARE, OTHER, SELFPAY | PROVIDERS: PCP Internal Medicine; Visit Provider Internal Medicine | DX: I25.10 Atherosclerotic heart disease of native coronary artery without angina pectoris (principal); I10 Essential (primary) hypertension; E78.5 Hyperlipidemia, unspecified; K21.9 Gastro-esophageal reflux disease without esophagitis; G40.209 Localization-related (focal) (partial) symptomatic epilepsy and epileptic syndromes with complex partial seizures, not intractable, without status epilepticus; R91.1 Solitary pulmonary nodule; I48.91 Unspecified atrial fibrillation; E78.00 Pure hypercholesterolemia, unspecified; D64.9 Anemia, unspecified; S46.012A Strain of muscle(s) and tendon(s) of the rotator cuff of left shoulder, initial encounter; X58.XXXA Exposure to other specified factors, initial encounter; Y93.9 Activity, unspecified; Y92.9 Unspecified place or not applicable; Y99.9 Unspecified external cause status; Z23 Encounter for immunization; Z86.73 Personal history of transient ischemic attack (TIA), and cerebral infarction without residual deficits | CPT/HCPCS: 90471; 90656; 99212 ==

== ENCOUNTER 2025-09-11 09:46 | Outpatient (REF) | payer MEDICARE, OTHER, SELFPAY ==
[2025-09-11 10:10] LABS: MANUAL DIFF FLAG NO
[2025-09-11 10:52] LABS: Hematocrit 42.9 % (42.0-52.0); Hemoglobin 13.6 g/dl (14.0-18.0); Imm Gran Abs Auto 0.02 X10*3/uL (0.00-0.03); Imm Gran Pct Auto 0.3 % (0.0-0.4); Lymphocytes Absolute Auto 2.1 X10*3/uL (1.2-4.9); Mean Corpuscular HGB Conc 31.7 g/dl (31.0-36.0); Mean Corpuscular Hemoglobin 28.1 pg (27.0-33.0); Mean Corpuscular Volume 88.6 fL (80.0-98.0); NRBC Abs Auto 0.000 X10*3/uL (0.0-0.012); NRBC Pct Auto 0.0 /100WBC (0.0-0.2); Platelet Count 238 X10*3/uL (160-400); Red Blood Count 4.84 X10*6/uL (4.60-5.80); Reticulocytes Absolute 0.057 X10*6/uL (0.026-0.095); White Blood Count 7.6 X10*3/uL (4.8-10.8)
--- OUTSIDE RECORDS SUMMARY | 2025-09-11 11:30 | XMS_ITS | Clinical Summary ---
Author Organization [facility] Address [address] [place] [address] Phone Care Team Providers Care Aviation Technical Systems Specialist Name Role Phone Pro Nunn MD Primary Care Provider [phone] Allergies Active Allergy Reactions Criticality Noted Date [...] Hypertension Hyperlipidemia TIA (transient ischemic attack) Cancer ([facility] V24, [facility] V28) Social History Tobacco Use Types [...] EST [facility] Comment: LDL Cholesterol Risk Factors (NCEP 2004 ATP III update) Desirable for high risk CHD: < 100 mg/dL Desirable for moderate risk CHD (2 or more risk factors): < 130 mg/dL Desirable for low risk CHD (0-1 risk factors): < 160 mg/dL VLDL Cholesterol David 20.6 mg/dL LAB CHEMISTRY METHOD 10/28/2023 8:29 AM EST [facility] Blood Venous blood specimen / Unknown Venipuncture / Unknown 10/28/2023 6:39 AM EST 10/28/2023 8:01 AM EST us Roman Wu MD LAB BLOOD ORDERABLES Fi nal Result [facility] [address] [place] [address], [place] [phone] from Last 3 Months or Most Recently Relevant to Health Maintenance Insurance MEDICARE FORMERLY [facility] Advance Directives * Full Code [...] currently active code status orders. Care Teams Aviation Technical Systems Specialist Relationship Specialty Start Date End Date Pro Nunn MD [address] [place] [address] [address] [facility] [place] [address] PCP - General Internal Medicine 10/26/23
[2025-09-11 11:46] LABS: Alanine Aminotransferase 19 U/L (0-40); Albumin Level 4.1 g/dL (3.5-5.0); Alkaline Phosphatase 77 U/L (39-117); Anion Gap 10 (12-20); Aspartate Amino Transferase 23 U/L (5-37); Blood Urea Nitrogen 16 mg/dL (9-16); Calcium 8.7 mg/dL (8.4-10.2); Carbon Dioxide 27 mmol/L (22-29); Chloride 110 mmol/L (96-108); Cholesterol 109 mg/dL (<200); Estimated Glomerular Filt Rate > 60; HDL Cholesterol 46 mg/dL (>40); Iron 69 mcg/dL (45-160); Percent Iron Saturation 25 % (15-50); Potassium 4.4 mmol/L (3.3-5.1); Sodium 143 mmol/L (135-145); Total Iron Binding Capacity 276 mcg/dL (228-428); Total Protein 6.2 g/dL (6.5-8.0); Triglycerides 70 mg/dL (<150); Unsaturated Iron Binding 207 ug/dL
[2025-09-11 12:05] LABS: Ferritin 25 ng/mL (20-250); Free T4 (Free Thyroxine) 1.04 ng/dL (0.71-1.85); Thyroid Stimulating Hormone 1.68 uIU/mL (0.32-4.0)
[2025-09-11 12:11] LABS: Folate 6.9 ng/mL (> or = 4.0); Vitamin B12 342 pg/mL (200-900)
== END 2025-09-11 09:47 | disposition home or self-care (01) ==
LOC: HO.LAB 09:46
PROVIDERS: PCP Internal Medicine; Visit Provider Internal Medicine
DX: I25.10 Atherosclerotic heart disease of native coronary artery without angina pectoris (principal); E78.00 Pure hypercholesterolemia, unspecified; I10 Essential (primary) hypertension; Z13.1 Encounter for screening for diabetes mellitus; Z13.0 Encounter for screening for diseases of the blood and blood-forming organs and certain disorders involving the immune mechanism
CPT/HCPCS: 36415; 80053; 80061; 82607; 82728; 82746; 83036; 83540; 84439; 84443; 85025; 85045

== ENCOUNTER 2025-09-24 12:55 | Outpatient (AMB) | payer MEDICARE, OTHER, SELFPAY ==
--- NOTE | 2025-09-24 13:00 | MHC.OFFVIS ---
Intake Visit Reasons: 6M Follow Up/UA-Self Cath(set) Intake Note: Reason for Visit: catheterization/UA Follow Up Urology Meds: None Blood Thinners: Aspirin Labs: A1C- 5.9 (09/11/2025) Imaging: None Last PVR: Patient Self Cath Manager Of Exhibitions And Collections Required: No Accompanied by: Self / Same As Patient Allergies diphenhydramine (From Benadryl) Adverse Reaction (Intermediate, Verified 09/24/25 13:03) Hallucinations HPI Comments Details: Geoffrey is a pleasant male. He is a patient of Dr. Nunn. He is seen for the following urologic conditions - prostate cancer - bladder neck contraction Six-month follow-up Using coude every 5 days for bladder neck dilatation 14 Mauritian - Occasionally does have issues when does not line up catheter Will expect him to require catheterization for the foreseeable future to maintain bladder emptying and open bladder neck Antibiotics given in case he gets infection Prostate cancer with bladder neck contracture Treatment with radiation 1999 Radiation cystitis with bladder neck contracture Catheter every 5-6 days keeping bladder neck open PSA 03/19 <0.1, 03/20 <0.1, 08/21 <0.1 Bladder neck stricture Multiple UTIs with persistent incomplete emptying - Enterococcus faecalis Levaquin sensitive Secondary to radiation for prostate cancer in 1999 Bladder neck incision 2018, 12/21 Repeat bladder neck incision September 2020 [facility] Medical History (Updated 05/12/25 @ 14:39 by Josie Kelly MD) Seizure disorder Cerebral infarct Ribs, multiple fractures Left arm pain Chest wall contusion Partial obstruction of small intestine Overweight (BMI 25.0-29.9) CAD (coronary artery disease) Afib CVA (cerebral vascular accident) Self-catheterizes urinary bladder History of trigger finger Arthritis Preoperative cardiovascular examination Symptomatic stenosis of left carotid artery Rectal cancer Bladder neck contracture GERD (gastroesophageal reflux disease) Urinary incontinence Obstructive sleep apnea Coronary artery disease Type 2 diabetes mellitus with hyperglycemia Small bowel obstruction Erectile dysfunction Peripheral vascular disease Prostate cancer Hematuria Constipation BPH (benign prostatic hyperplasia) Prostate cancer Colon cancer Dysuria Hyperlipidemia, unspecified Essential hypertension Surgical History History of left-sided carotid endarterectomy History of coronary artery stent placement History of exploratory laparotomy History of carpal tunnel release History of prostate surgery (~2016) History of bladder surgery (~01/04/18) History of colectomy History of appendectomy Family History Father Pancreatic cancer Mother No problems noted. Brother Liver cancer Social History Household Members: Other Household Members Other:: [facility] Housing: House Are you a primary home child care provider to a significant other at home: No Do you presently have visiting nurse or other home services: No Unable to assess alcohol history related to: Unable to respond Alcohol intake: never Patient Tobacco Use Status: Former Tobacco user Tobacco use type: Cigarette e-Cigarette/Vaping Use: Never Used Second Hand Smoke Exposure: No Advance Directives Date on File: 09/29/20 service: No Current occupational status: retired Cognitive needs: Yes (cane, walker) Hearing needs: Yes (hearing aide) Vision needs: Yes (glasses) Review of Systems Const Denies chills and Denies fever(s) Card Reports no additional complaints and Denies syncope Resp Denies cough GI Denies abdominal pain and Denies heartburn Reports as per HPI and Denies change in libido Neuro Denies syncope Psych Denies change in libido Endo Denies change in libido Physical Exam Const General: cooperative, healthy appearing, comfortable and no acute distress Orientation/consciousness: patient oriented x3 HEENT Face and sinus: Yes normal facial exam Mouth: moist mucous membranes Neck Neck: Yes normal visual inspection, Yes full ROM and Yes trachea midline Chest Chest palpation & inspection: normal inspection of the chest Resp Effort & Inspection: normal respiratory effort, able to speak in complete sentences and no respiratory distress GI Inspection: Yes normal to inspection Back/Spine/Pelvis Cervical Spine: normal cervical lordosis Thoracic/Lumbar Spine: thoracic and lumbar spine normal to inspection Skin General skin exam: no rashes or lesions noted Neuro General: patient oriented x3, gait normal, tone normal and moves all extremities Extrem General: Yes normal to inspection and Yes capillary refill normal Assessment & Plan Assessment & Plan (1) Prostate cancer: Code(s): C61 - Malignant neoplasm of prostate Category: Medical (2) Bladder neck stricture: Comment: status post incision bladder neck contracture with laser, cystoscopy Dr. Hein September 2020 Code(s): N32.0 - Bladder-neck obstruction Category: Medical (3) Chronic UTI (urinary tract infection): Code(s): N39.0 - Urinary tract infection, site not specified Category: Medical Plan Six-month follow-up Medications: New sulfamethoxazole-trimethoprim 800-160 mg (Bactrim DS) 1 tab PO BID 10 tabs 0RF 5 days N32.0 - Bladder-neck obstruction Patient Instructions: This note is constructed using voice recognition software. While every effort has been made to ensure accuracy teacher industrial arts errors may have been included. Imaging studies, laboratory and physical exam results were discussed and reviewed in detail. No major barriers to patient understanding were identified. An opportunity to ask questions regarding the treatment plan was provided. All questions were answered. The patient expressed understanding and agreement with the above treatment plan. The patient is aware they should contact our office by phone for worsening of their current condition or the appearance of new urologic symptoms. Compliance is encouraged with any medications and followup testing that is ordered. It is a privilege to participate in the urologic care of your patient. If you have any questions or concerns regarding treatment for the above conditions, or other urologic issues, please do not hesitate to contact me. The office telephone contact is [phone]. Sincerely, Dr Jerman Hein MD, [facility] - Urology Compassionate Specialist Care for the Genitourinary System Coding Level of Care Code Est Pt Level 3 (90488) Complex visit Add On G2211 Diagnoses Prostate cancer C61 Bladder neck stricture N32.0 Chronic UTI (urinary tract infection) N39.0
--- OUTSIDE RECORDS SUMMARY | 2025-09-24 15:55 | XMS_ITS | Clinical Summary ---
Author Organization [facility] Address [address] [place] [address] Phone Care Team Providers Care Business Management Specialist Name Role Phone Pro Nunn MD Primary Care Provider [phone] Allergies Active Allergy Reactions Criticality Noted Date [...] Hypertension Hyperlipidemia TIA (transient ischemic attack) Cancer ([facility] V24, [facility] V28) Social History Tobacco Use [...] LAB CHEMISTRY METHOD 10/28/2023 8:29 AM EST [facility] Comment: Cholesterol Risk Factors (NCEP 2004 ATP III update) Desirable: <200 mg/dL Borderline Risk: 200-239 mg/dL High Risk: >239 mg/dL Triglycerides 103 0 - 150 mg/dL LAB CHEMISTRY METHOD 10/28/2023 8:29 AM EST [facility] HDL 34 23 - 92 mg/dL LAB CHEMISTRY METHOD 10/28/2023 8:29 AM EST [facility] LDL Calculated 25 <100 mg/dL LAB CHEMISTRY METHOD 10/28/2023 8:29 AM EST [facility] Comment: LDL Cholesterol Risk Factors (NCEP 2004 ATP III update) Desirable for high risk CHD: < 100 mg/dL Desirable for moderate risk CHD (2 or more risk factors): < 130 mg/dL Desirable for low risk CHD (0-1 risk factors): < 160 mg/dL VLDL Cholesterol David 20.6 mg/dL LAB CHEMISTRY METHOD 10/28/2023 8:29 AM EST [facility] Blood Venous blood specimen / Unknown Venipuncture / Unknown 10/28/2023 6:39 AM EST 10/28/2023 8:01 AM EST us Roman Wu MD LAB BLOOD ORDERABLES Fi nal Result [facility] [address] [place] [address], [place] [phone] from Last 3 Months or Most Recently [...] currently active code status orders. Care Teams Business Management Specialist Relationship Specialty Start Date End Date Pro Nunn MD [address] [place] [address] [address] [facility] [place] [address] PCP - General Internal Medicine 10/26/23
== END 2025-09-24 13:14 | disposition home or self-care (01) ==
LOC: HO.HUSH 12:55
PROVIDERS: PCP Internal Medicine; Visit Provider Urology
DX: C61 Malignant neoplasm of prostate (principal); N32.0 Bladder-neck obstruction; N39.0 Urinary tract infection, site not specified
CPT/HCPCS: 99213; G2211

== ENCOUNTER → 2025-09-24 12:55 | Outpatient (BNVA) | payer MEDICARE, OTHER, SELFPAY | PROVIDERS: PCP Internal Medicine; Visit Provider Urology | DX: C61 Malignant neoplasm of prostate (principal); N32.0 Bladder-neck obstruction; N39.0 Urinary tract infection, site not specified; R97.21 Rising PSA following treatment for malignant neoplasm of prostate; Z79.82 Long term (current) use of aspirin; Z87.891 Personal history of nicotine dependence | CPT/HCPCS: 99212 ==

== ENCOUNTER 2025-10-01 14:10 | Outpatient (AMB) | payer MEDICARE, OTHER, SELFPAY ==
--- NOTE | 2025-10-01 14:38 | MHC.PC.OV ---
Vital Signs 10/01/25 14:39 Height 5 ft 11 in Weight 182 lb 6 oz BMI 25.4 BP 140/62 H Blood Pressure Location Lt brachial Position Sitting Pulse 76 Pulse Source Pulse Oximeter Temp 97.1 F Temp Source Temporal Artery Scan Pulse Oximetry (%) 97 Oxygen Delivery Method Room Air Intake Visit Reasons: pain on back of his head Intake Note: Patient is here to follow up on Pain at the back of head. 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 - The patient reports a 4-day history of throbbing pain in the back of the head, associated with a palpable lump. - The pain intensity fluctuates from a 2 out of 10 to a 10 out of 10. - The patient denies recent injury or falls but notes getting similar small scabs on occasion. - The patient reports taking amlodipine for blood pressure and rosuvastatin. - The patient takes baby aspirin daily and denies taking other blood thinners. - The patient is allergic to Benadryl. Social History Results [facility] Medical History Seizure disorder Cerebral infarct Ribs, multiple fractures Left arm pain Chest wall contusion Partial obstruction of small intestine Overweight (BMI 25.0-29.9) CAD (coronary artery disease) Afib CVA (cerebral vascular accident) Self-catheterizes urinary bladder History of trigger finger Arthritis Preoperative cardiovascular examination Symptomatic stenosis of left carotid artery Rectal cancer Bladder neck contracture GERD (gastroesophageal reflux disease) Urinary incontinence Obstructive sleep apnea Coronary artery disease Type 2 diabetes mellitus with hyperglycemia Small bowel obstruction Erectile dysfunction Peripheral vascular disease Prostate cancer Hematuria Constipation BPH (benign prostatic hyperplasia) Prostate cancer Colon cancer Dysuria Hyperlipidemia, unspecified Essential hypertension Surgical History History of left-sided carotid endarterectomy History of coronary artery stent placement History of exploratory laparotomy History of carpal tunnel release History of prostate surgery (~2017) History of bladder surgery (~01/04/18) History of colectomy History of appendectomy Family History Father Pancreatic cancer Mother No problems noted. Brother Liver cancer Social History Household Members: Other Household Members Other:: [facility] Housing: House Are you a primary child care education coordinator to a significant other at home: No Do you presently have visiting nurse or other home services: No Alcohol intake: never Patient Tobacco Use Status: Former Tobacco user Tobacco use type: Cigarette e-Cigarette/Vaping Use: Never Used Second Hand Smoke Exposure: No Advance Directives Date on File: 09/29/20 service: No Current occupational status: retired Cognitive needs: Yes (cane, walker) Hearing needs: Yes (hearing aide) Vision needs: Yes (glasses) Questionnaire Thrive Questionnaire Date Thrive assessed: 04/14/25 NALINI-7 AMB Questionnaire NALINI-7 Date NALINI - 7 assessed: 04/14/25 Source: Developed by Drs. Chaim Escalera, Angy Pereira, Heriberto Wick and colleagues, with an educational marycarmen from [employer]. Review of Systems Narrative Review of Systems - Constitutional: Denies fever and chills. - Neurological: Reports throbbing pain in the back of the head for four days, with severity ranging from 2 to 10 out of 10. - Integumentary: Reports a tender lump on the back of the head and a history of occasional scabs in the same area. Physical exam (Primary Care) Vital Signs: Last Vital Signs Temp 97.1 F 10/01/25 14:39 Pulse 76 10/01/25 14:39 BP 140/62 H 10/01/25 14:39 Pulse Ox 97 10/01/25 14:39 Oxygen Delivery Method Room Air 10/01/25 14:39 BMI result Body Mass Index 25.4 Tobacco/Smoking Status: Tobacco use Status Tobacco use date assessed 10/01/25 10/01/25 14:44 Patient Tobacco Use Status Former Tobacco user 10/01/25 14:44 Tobacco use type Cigarette 10/01/25 14:44 e-Cigarette/Vaping Use Never Used 10/01/25 14:44 Thrive Assessment: Date of Thrive Assessment Date Thrive assessed 04/14/25 10/01/25 14:44 Narrative Physical Exam General: Appearance normal, both eyes and all related structures Nutritional Appearance: Well nourished Orientation/consciousness: Patient oriented x3 Limitations: No limitations Head: Lump on the back of the head, infection on the scalp Neck: Normal visual inspection Chest: Normal palpation of entire chest wall Respiratory: Normal respiratory effort Neurology: Patient oriented x3 Scalp: 4 cm erythematous area, tender to touch and tiny fluctuant area in the center Coding Level of Care Code Est Pt Level 4 (52756) Complex visit Add On G2211 Diagnoses Cellulitis of scalp L03.811 Assessment & Plan Assessment & Plan (1) Cellulitis of scalp: Code(s): L03.811 - Cellulitis of head [any part, except face] Plan Plan - The patient was diagnosed with a scalp infection causing the head pain. - Prescribed penicillin to be taken twice a day for the infection. - Recommended applying warm compresses to the affected area. Discussion Notes I explained to the patient that the lump and pain on the back of the head are due to a scalp infection. I have prescribed penicillin to be taken twice daily to treat the infection. I also advised the patient to continue applying warm compresses to the area, which the patient had already started, and that the condition should improve. Patient Instructions - An antibiotic, penicillin, has been prescribed for you. Please take it twice a day. - Apply a warm compress to the painful area on the back of your head. - Your symptoms should get better in a few days.
[2025-10-01 14:39] VITALS: BP 140/62; PULSE 76; TEMP 36.2; O2SAT 97; BMI 25.4
--- OUTSIDE RECORDS SUMMARY | 2025-10-01 17:01 | XMS_ITS | Clinical Summary ---
Author Organization [facility] Address [address] [place] [address] Phone Care Team Providers Care Rn Social Work Name Role Phone Pro Nunn MD Primary Care Provider [phone] Allergies Active Allergy Reactions Criticality Noted [...] Hyperlipidemia TIA (transient ischemic attack) Cancer ([facility] V24, [facility] V28) Social History Tobacco Use [...] LAB CHEMISTRY METHOD 10/28/2023 8:29 AM EST [facility] Comment: Cholesterol Risk Factors (NCEP 2004 ATP III update) Desirable: <200 mg/dL Borderline Risk: 200-239 mg/dL High Risk: >239 mg/dL Triglycerides 103 0 - 150 mg/dL LAB CHEMISTRY METHOD 10/28/2023 8:29 AM EST [facility] HDL 34 23 - 92 mg/dL LAB CHEMISTRY METHOD 10/28/2023 8:29 AM EST [facility] LDL Calculated 25 <100 mg/dL LAB CHEMISTRY METHOD 10/28/2023 8:29 AM EST [facility] Comment: LDL Cholesterol Risk Factors (NCEP 2004 ATP III update) Desirable for high risk CHD: < 100 mg/dL Desirable for moderate risk CHD (2 or more risk factors): < 130 mg/dL Desirable for low risk CHD (0-1 risk factors): < 160 mg/dL VLDL Cholesterol David 20.6 mg/dL LAB CHEMISTRY METHOD 10/28/2023 8:29 AM EST [facility] Blood Venous blood specimen / Unknown Venipuncture / Unknown 10/28/2023 6:39 AM EST 10/28/2023 8:01 AM EST us Roman Wu MD LAB BLOOD ORDERABLES Fi nal Result [facility] [address] [place] [address], [place] [phone] from Last 3 Months or Most Recently [...] currently active code status orders. Care Teams Rn Social Work Relationship Specialty Start Date End Date Pro Nunn MD [address] [place] [address] [address] [facility] [place] [address] PCP - General Internal Medicine 10/26/23
== END 2025-10-01 14:55 | disposition home or self-care (01) ==
LOC: HO.HMCH 14:11
PROVIDERS: PCP Internal Medicine; Visit Provider Internal Medicine
DX: L03.811 Cellulitis of head [any part, except face] (principal)

== ENCOUNTER → 2025-10-01 14:10 | Outpatient (BNVA) | payer MEDICARE, OTHER, SELFPAY | PROVIDERS: PCP Internal Medicine; Visit Provider Internal Medicine | DX: L03.811 Cellulitis of head [any part, except face] (principal) | CPT/HCPCS: 99212 ==